=== PATIENT | male | born 1950 | race Caucasian/White ===

== ENCOUNTER 2018-02-13 12:58 | Inpatient (IN) | payer OTHER ==
--- NOTE | 2018-02-13 13:37 | PDOC ---
History of Present Illness <Farhana Lafleur - Last Filed: 02/13/18 17:31> - History of Present Illness Initial Comments: 02/13/18 15:11 The patient is a 67 year old male, with a significant PMH of schizophrenia, afib on digoxin and HTN who presents to the emergency department with left lower extremity edema and erythema for unknown period of time. Patient also has a plantar ulcer on the left foot that drains from time to time. The patient was sent in by Dr. Deleon, a motor overhauler, who was concerned about possible osteomyelitis and cellulitis. Patient is a poor historian and states he had this wound for the past 65 years. Pt also states it drained pus 1-2 days ago. Case was discussed with the staff at [facility] who are unsure for how long he has had the wound for. The podriatrist is also unaware for how long he has had the wound for. The patient denies chest pain, shortness of breath, headache and dizziness. Denies fever, chills, nausea, vomit, diarrhea and constipation. Denies dysuria, frequency, urgency and hematuria. Allergies: NKA Past surgical history: None reported. Social history: No reported alcohol, drug, or cigarette use. <Latoya Quispe - Last Filed: 02/13/18 17:57> - General Chief Complaint: Wound Stated Complaint: FOOT Wound Time Seen by Provider: 02/13/18 13:10 Past History <Farhana Lafleur - Last Filed: 02/13/18 17:31> - Past Medical History Cardiac Disorders: Yes (a fib) COPD: No CHF: Yes GI Disorders: Yes (gerd) Psychiatric Problems: Yes (schizophrenia) - Suicide/Smoking/Psychosocial Hx Smoking History: Unknown if ever smoked Have you smoked in the past 12 months: No Information on smoking cessation initiated: No Hx Alcohol Use: No Drug/Substance Use Hx: No Substance Use Type: None <Latoya Quispe - Last Filed: 02/13/18 17:57> - Past Medical History Allergies/Adverse Reactions: Allergies Allergy/AdvReac Type Severity Reaction Status Date / Time No Known Allergies Allergy Verified 02/13/18 13:04 Home Medications: Ambulatory Orders Aripiprazole [Abilify -] 15 mg PO HS 02/13/18 Aripiprazole [Abilify] 5 mg PO DAILY 02/13/18 Digoxin [Lanoxin -] 0.125 mg PO DAILY 02/13/18 Docusate Sodium [Colace -] 100 mg PO DAILY 02/13/18 Ergocalciferol (Vitamin D2) [Drisdol] 50,000 unit PO WEEKLY 02/13/18 Furosemide [Lasix -] 20 mg PO DAILY 02/13/18 Metoprolol Tartrate [Lopressor -] 12.5 mg PO BID 02/13/18 Potassium Chloride [K-Dur -] 10 meq PO DAILY 02/13/18 Review of Systems - Review of Systems Comments:: 02/13/18 15:12 "GENERAL/CONSTITUTIONAL: No fever or chills. No weakness. HEAD, EYES, EARS, NOSE AND THROAT: No change in vision. No ear pain or discharge. No sore throat. GASTROINTESTINAL: No nausea, vomiting, diarrhea or constipation. GENITOURINARY: No dysuria, frequency, or change in urination. CARDIOVASCULAR: No chest pain or shortness of breath. RESPIRATORY: No cough, wheezing, or hemoptysis. MUSCULOSKELETAL: (+) Left lower extremity erythema and edema. No neck or back pain. SKIN: No rash NEUROLOGIC: No headache, vertigo, loss of consciousness, or change in strength/ sensation. ENDOCRINE: No increased thirst. No abnormal weight change. HEMATOLOGIC/LYMPHATIC: No anemia, easy bleeding, or history of blood clots. ALLERGIC/IMMUNOLOGIC: No hives or skin allergy." <Latoya Quispe - Last Filed: 02/13/18 17:57> *Physical Exam - Vital Signs Last Vital Signs Temp Pulse Resp BP Pulse Ox 99.0 F 76 16 112/70 98 02/13/18 17:24 02/13/18 17:24 02/13/18 17:24 02/13/18 17:24 02/13/18 17:24 <Farhana Lafleur - Last Filed: 02/13/18 17:31> - Vital Signs Last Vital Signs Temp Pulse Resp BP Pulse Ox 99.6 F 101 H 16 106/60 100 02/13/18 13:04 02/13/18 13:04 02/13/18 13:04 02/13/18 13:04 02/13/18 13:04 - Physical Exam Comments: 02/13/18 15:13 "GENERAL: Awake, alert, and fully oriented, in no acute distress HEAD: No signs of trauma EYES: PERRLA, EOMI, sclera anicteric, conjunctiva clear ENT: Auricles normal inspection, hearing grossly normal, nares patent, oropharynx clear without exudates. Moist mucosa NECK: Normal ROM, supple, no lymphadenopathy, JVD, or masses LUNGS: Breath sounds equal, clear to auscultation bilaterally. No wheezes, and no crackles HEART: Regular rate and rhythm, normal S1 and S2, no murmurs, rubs or gallops ABDOMEN: Soft, nontender, normoactive bowel sounds. No guarding, no rebound. No masses EXTREMITIES: (+) Left lower extremity 1+ pitting edema from the dorsum of the foot to the proximal calf. (+) Compared to the right leg, the left leg is warm and erythematous. (+) Deep calloused ulcer at the 2nd and 3rd metatarsal head on the plantar surface with no drainage. 2+ DP pulse. Normal range of motion. No clubbing or cyanosis. No cords or tenderness BACK: No midline spinal tenderness in cervical/thoracic/lumbar region NEUROLOGICAL: Normal speech, cranial nerves intact, negative pronator drift, 5/ 5 strength in all 4 extremities, normal sensation to light touch in all 4 extremities, normal cerebellar exam, normal gait, normal reflexes and tone SKIN: Warm, Dry, normal turgor, no rashes or lesions noted." <Latoya Quispe - Last Filed: 02/13/18 17:57> ED Treatment Course - LABORATORY CBC & Chemistry Diagram: 02/13/18 15:00 02/13/18 15:00 - ADDITIONAL ORDERS Additional order review: Laboratory Results 02/13/18 02/13/18 15:00 15:00 Sodium 137 Potassium 4.7 Chloride 104 Carbon Dioxide 31 Anion Gap 2 L BUN 14 Creatinine 0.6 Creat Clearance w eGFR > 60 Random Glucose 107 H Calcium 8.5 Total Bilirubin 0.2 AST 11 L ALT 15 Alkaline Phosphatase 97 C-Reactive Protein 7.6 H Total Protein 6.7 Albumin 2.6 L 02/13/18 15:00 RBC 3.95 L MCV 73.3 L MCHC 31.6 L RDW 19.4 H MPV 7.5 Neutrophils % 81.7 Lymphocytes % 8.7 Monocytes % 7.6 Eosinophils % 0.9 Basophils % 1.1 <Farhana Lafleur - Last Filed: 02/13/18 17:31> - LABORATORY CBC & Chemistry Diagram: 02/13/18 15:00 02/13/18 15:00 <Latoya Quispe - Last Filed: 02/13/18 17:57> Medical Decision Making - Medical Decision Making 02/13/18 17:30 Imaging: Left ankle/foot XR Reported by: Dr. Alfonso Impression: Irregularity second, third, and fourth metatarsal heads suspicious for acute osteomyelitis. <Farhana Lafleur - Last Filed: 02/13/18 17:31> - Medical Decision Making 02/13/18 15:53 67-year-old male with a history of schizophrenia, A. fib, hypertension presents to the emergency Department after referral from motor overhauler for possible osteomyelitis vs cellulitis. Pt is poor historian significantly limiting the history. Vitals with mildly elevated temp, and mild tachycardia to 101. Plan -labs -XR -US -reassess 02/13/18 17:56 XR + for osteo Pt covered with Vanc/Zosyn Case discussed with Dr. Smith, pt admitted Case discussed in detail with admitting physician including history, physical exam and ancillary studies. Admitting physician has assumed care for the patient, will follow all pending diagnostics and will complete the evaluation and treatment. <Latoya Quispe - Last Filed: 02/13/18 17:57> *DC/Admit/Observation/Transfer <Farhana Lafleur - Last Filed: 02/13/18 17:31> - Discharge Dispostion Decision to Admit order: Yes - Attestations Physician Attestion: 02/13/18 17:57 I, Dr. Latoya Quispe MD, attest that this document has been prepared under my direction and personally reviewed by me in its entirety. I further attest, that it accurately reflects all work, treatment, procedures and medical decision -making performed by me. <Latoya Quispe - Last Filed: 02/13/18 17:57> Diagnosis at time of Disposition: Osteomyelitis, Leg edema, Foot pain - Discharge Dispostion Condition at time of disposition: Stable - Referrals Referrals: John Dunn [Primary Care Provider] -
[2018-02-13 15:25] LABS: BASO % 1.1 % (0-2.0); EOS % 0.9 % (0-4.5); HEMATOCRIT 28.9 % (35.4-49); HEMOGLOBIN 9.2 GM/dL (11.7-16.9); LYMPH % 8.7 % (8-40); MCH 23.2 pg (25.7-33.7); MCHC 31.6 g/dl (32.0-35.9); MEAN CELL VOLUME 73.3 fl (80-96); MEAN PLT VOLUME 7.5 fl (7.5-11.1); MONO % 7.6 % (3.8-10.2); NEUT % 81.7 % (42.8-82.8); PLATELET COUNT 261 K/MM3 (134-434); RBC 3.95 M/mm3 (4.00-5.60); RDW 19.4 % (11.9-15.9); WHITE BLOOD COUNT 6.8 K/mm3 (4.0-10.0)
[2018-02-13 15:53] LABS: ALBUMIN 2.6 g/dl (3.4-5.0); ALK PHOS 97 U/L (45-117); ANION GAP 2 MMOL/L (8-16); BILIRUBIN,TOTAL 0.2 mg/dL (0.2-1); BLOOD UREA NITROGEN 14 mg/dL (7-18); CALCIUM 8.5 mg/dL (8.5-10.1); CHLORIDE 104 mmol/L (98-107); CO2 31 mmol/L (21-32); CREATININE 0.6 mg/dL (0.55-1.3); GLUCOSE,RANDOM 107 mg/dL (74-106); POTASSIUM 4.7 mmol/L (3.5-5.1); SGOT/AST 11 U/L (15-37); SGPT/ALT 15 U/L (13-61); SODIUM 137 mmol/L (136-145); TOT PROT 6.7 g/dl (6.4-8.2)
[2018-02-13] MEDS ORDERED: VANCOMYCIN 1,000 MG in DEXTROSE 5%-WATER - 250 ML IVPB ONE (17:29)
[2018-02-13] MEDS ORDERED: PIPERACILLIN/TAZOB 4.5 GM 4.5 GM in DEXTROSE 5%-WATER - 100 ML IVPB ONE (17:29)
[2018-02-13] MEDS ORDERED: VANCOMYCIN 1 GRAM (PRE-DOCKED) 1,000 MG/250 ML BAG IVPB ONE (17:30)
[2018-02-13] MEDS ORDERED: PIPERACILLIN/TAZOB 4.5 GM 4.5 GM/100 ML BAG IVPB ONE (17:30)
--- NOTE | 2018-02-13 23:40 | PN ---
Teaching Attending Note Name of Resident: Pritesh Lloyd ATTENDING PHYSICIAN STATEMENT I saw and evaluated the patient. Chart, data, imaging reviewed. I reviewed the resident's note and discussed the case with the resident. I agree with the resident's findings and plan as documented. SUBJECTIVE: 67 year old male, with a significant PMH of schizophrenia, former smoker (20 years), afib on digoxin and HTN sent in to ER from podiatry clinic for left foot plantar ulcer of uncertain duration. Patient himself did not have any complaints. He denied any fevers, chills, or foot pain. He denied any trauma to his foot. OBJECTIVE: Last Vital Signs Temp Pulse Resp BP Pulse Ox 99.4 F 95 H 18 104/70 97 02/13/18 22:37 02/13/18 22:37 02/13/18 22:37 02/13/18 22:37 02/13/18 22:37 General -nad, appears comfortable, nontoxic heent- at, nc neck -supple cv- s1+s2+rrr abdomen- soft, benign ext- left foot, leg edematous, warm to touch, slight erythema, 1 cm plantar ulcer, no active drainage Abnormal Lab Results 02/13/18 02/13/18 02/13/18 15:00 15:00 15:00 RBC 3.95 L Hgb 9.2 L Hct 28.9 L MCV 73.3 L MCH 23.2 L MCHC 31.6 L RDW 19.4 H ESR 56 H Anion Gap Random Glucose AST C-Reactive Protein 7.6 H Albumin 02/13/18 15:00 RBC Hgb Hct MCV MCH MCHC RDW ESR Anion Gap 2 L Random Glucose 107 H AST 11 L C-Reactive Protein Albumin 2.6 L Imaging reviewed- left foot xray- irregular lesions seen in metatarsal heads in 2,3,5th digits U/S duplex- neg for dvt in left leg ASSESSMENT AND PLAN: 67yo man with acute osteomyelitis of left 2,3,4 toes as evidenced by +xray findings, high ESR. +Cellulitis of left leg. Source of infection may be plantar ulcer. Unclear if patent has PVD. Left leg DVT was ruled out. -admit to med/surg -podiatry consult - bone biopsy + deep tissue culture -vancomycin and zosyn IV -ID consult -leg elevation -THERESE -heparin sc for dvt ppx
--- NOTE | 2018-02-13 23:49 | HP ---
CHIEF COMPLAINT: Referred by Administrative Project Coordinator for Foot ulcer PCP: none HISTORY OF PRESENT ILLNESS: Pt is poor historian. Pt is a 67 y/o gentleman with a past medical history of schizophrenia, htn, afib (on digoxin) and anemia. Pt was referred to our ED by his home builder (Dr Deleon) due to left lower extremity swelling and possible osteomyelitis of his left foot. Pt states he has had this ulcer on the plantar aspect of his left foot for 8 days. States that it sometimes drains fluid. Pt endorses he often wears tight fitting shoes which he has neglected to change for a long period of time and believes that this is the reason for his plantar ulcer. Denies fever, chills, headache, nausea, vomiting, chest pain, or shortness of breath. ER course was notable for: (1) ESR/CRP 56/7.6 (2) xray left ankle and foot 02/13/18--> Irregularity second, third, and fourth metatarsal heads suspicious for acute osteomyelitis - Received Vanc/Zosyn in ED (3) Recent Travel: denies PAST MEDICAL HISTORY: Per HPI PAST SURGICAL HISTORY: Poor historian. Abdominal surgical scar (pt states he "swallowed coins"), Surgical scar left knee. Social History: Smoking: Former smoker. Smoked 9 cigarettes for 20 years. Alcohol: denies Drugs: denies Family History: Allergies States he is allergic to thorazine? HOME MEDICATIONS: Home Medications Medication Instructions Recorded Aripiprazole [Abilify -] 15 mg PO HS 02/13/18 Aripiprazole [Abilify] 5 mg PO DAILY 02/13/18 Digoxin [Lanoxin -] 0.125 mg PO DAILY 02/13/18 Docusate Sodium [Colace -] 100 mg PO DAILY 02/13/18 Ergocalciferol (Vitamin D2) 50,000 unit PO WEEKLY 02/13/18 [Drisdol] Furosemide [Lasix -] 20 mg PO DAILY 02/13/18 Metoprolol Tartrate [Lopressor -] 12.5 mg PO BID 02/13/18 Potassium Chloride [K-Dur -] 10 meq PO DAILY 02/13/18 REVIEW OF SYSTEMS CONSTITUTIONAL: Absent: fever, chills, diaphoresis, generalized weakness, malaise, loss of appetite, weight change HEENT: Absent: rhinorrhea, nasal congestion, throat pain, throat swelling, difficulty swallowing, mouth swelling, ear pain, eye pain, visual changes CARDIOVASCULAR: Absent: chest pain, syncope, palpitations, irregular heart rate, lightheadedness , peripheral edema RESPIRATORY: Absent: cough, shortness of breath, dyspnea with exertion, orthopnea, wheezing, stridor, hemoptysis GASTROINTESTINAL: Absent: abdominal pain, abdominal distension, nausea, vomiting, diarrhea, constipation, melena, hematochezia GENITOURINARY: Absent: dysuria, frequency, urgency, hesitancy, hematuria, flank pain, genital pain MUSCULOSKELETAL: ABSENT: myalgia, arthralgia, joint swelling SKIN: PRESENT: CELLULITIS lle HEMATOLOGIC/IMMUNOLOGIC: Absent: easy bleeding, easy bruising, lymphadenopathy, frequent infections ENDOCRINE: Absent: unexplained weight gain, unexplained weight loss, heat intolerance, cold intolerance NEUROLOGIC: Absent: headache, focal weakness or paresthesias, dizziness, unsteady gait, seizure, mental status changes, bladder or bowel incontinence PSYCHIATRIC: PRESENT: schizophrenia PHYSICAL EXAMINATION Vital Signs - 24 hr 02/13/18 02/13/18 02/13/18 13:04 17:24 22:37 Temperature 99.6 F 99.0 F 99.4 F Pulse Rate 101 H Pulse Rate [ 76 95 H Left Apical] Respiratory 16 16 18 Rate Blood Pressure 106/60 Blood Pressure 112/70 104/70 [Left Arm] O2 Sat by Pulse 100 98 97 Oximetry (%) GENERAL: Awake, Alert. NAD HEAD: NC/AT EYES: EOMI, PERRLA. EARS, NOSE, THROAT: MMM NECK: Supple LUNGS: CTA B/L HEART: RRR, No MRG, S1 S2 ABDOMEN: ND, NT, No HSM. Surgical scar mid-abdomen. MUSCULOSKELETAL: FROM UPPER EXTREMITIES: No CCE LOWER EXTREMITIES: Left Lower extremity swollen, erythematous, plantar ulcer, 2 + pitting edema NEUROLOGICAL: CN 2-12 intact PSYCHIATRIC: Schizophrenia SKIN: Cellulitis LLE. Laboratory Results - last 24 hr 02/13/18 02/13/18 02/13/18 15:00 15:00 15:00 WBC 6.8 RBC 3.95 L Hgb 9.2 L Hct 28.9 L MCV 73.3 L MCH 23.2 L MCHC 31.6 L RDW 19.4 H Plt Count 261 MPV 7.5 Absolute Neuts (auto) 5.6 Neutrophils % 81.7 Lymphocytes % 8.7 Monocytes % 7.6 Eosinophils % 0.9 Basophils % 1.1 Nucleated RBC % 0 ESR 56 H Sodium Potassium Chloride Carbon Dioxide Anion Gap BUN Creatinine Creat Clearance w eGFR Random Glucose Calcium Total Bilirubin AST ALT Alkaline Phosphatase C-Reactive Protein 7.6 H Total Protein Albumin 02/13/18 15:00 WBC RBC Hgb Hct MCV MCH MCHC RDW Plt Count MPV Absolute Neuts (auto) Neutrophils % Lymphocytes % Monocytes % Eosinophils % Basophils % Nucleated RBC % ESR Sodium 137 Potassium 4.7 Chloride 104 Carbon Dioxide 31 Anion Gap 2 L BUN 14 Creatinine 0.6 Creat Clearance w eGFR > 60 Random Glucose 107 H Calcium 8.5 Total Bilirubin 0.2 AST 11 L ALT 15 Alkaline Phosphatase 97 C-Reactive Protein Total Protein 6.7 Albumin 2.6 L XRAY L FOOT/ANKLE: AP, oblique and lateral projections of the left foot and ankle is limited. There is deformity of the second, third and fourth metatarsal heads with the suggestion of subcutaneous emphysema. This appearance could represent acute osteomyelitis and additional imaging studies, such as a triphasic nuclear medicine bone scan and/or an MRI of the foot is now recommended. ASSESSMENT/PLAN: Pt is a 67 y/o gentleman with a past medical history of schizophrenia, htn, afib (on digoxin) and anemia. Pt was referred to our ED by his home builder due to left lower extremity swelling and possible osteomyelitis of his left foot. #Osteomyelitis 2/2 Plantar Ulcer L Foot -xray left ankle and foot 02/13/18--> Irregularity second, third, and fourth metatarsal heads suspicious for acute osteomyelitis - Received Vanc/Zosyn in ED - Zosyn 3.375 Q6H - ID Consult - Podiatry consult -Lactic Acid Level -Doppler left Extremity--> No acute pathology, no DVT #Cellulitis Left Lower Extremity - Received Vanc/Zosyn in ED -Zosyn 3.375 Q6H -ID Consult #Schizophrenia -Resume Home medications #Afib -Resume home medications #Anemia -Retic count, Fe,Transferrin, Stool Occult -f/u cbc in am FEN NS@75cc/hr Monitor Electrolytes Sodium controlled diet DVT ppx: Hep SQ TID Dispo: Med-Surg Visit type - Emergency Visit Emergency Visit: Yes ED Registration Date: 02/13/18 Care time: The patient presented to the Emergency Department on the above date and was hospitalized for further evaluation of their emergent condition. - New Patient This patient is new to me today: Yes Date on this admission: 02/14/18 - Critical Care Critical Care patient: No
[2018-02-14 00:36] VITALS: BMI 19.6
[2018-02-14] MEDS ORDERED: PIPERACILLIN/TAZOBACTAM 3.375 GM VIAL IVPB ONE ×3 (01:08→08:44)
[2018-02-14] MEDS ORDERED: DEXTROSE 5%-WATER - 50 ML IVPB ONE ×3 (01:08→08:44)
[2018-02-14] MEDS: SODIUM CHLORIDE 1,000 ML IV SCH ×2 (01:18→18:23)
[2018-02-14] MEDS: PIPERACILLIN/TAZOB 3.375 GM 3.375 GM in DEXTROSE 5%-WATER - 50 ML IVPB SCH ×4 (01:19→22:12)
[2018-02-14] MEDS: HEPARIN NA (PORCINE) 5,000 UNITS/ML 1ML VIAL SQ SCH ×3 (05:38→21:36)
[2018-02-14 07:28] LABS: BASO % 0.9 % (0-2.0); EOS % 1.7 % (0-4.5); HEMATOCRIT 26.7 % (35.4-49); HEMOGLOBIN 8.5 GM/dL (11.7-16.9); LYMPH % 9.6 % (8-40); MCH 23.4 pg (25.7-33.7); MCHC 31.8 g/dl (32.0-35.9); MEAN CELL VOLUME 73.5 fl (80-96); MEAN PLT VOLUME 7.5 fl (7.5-11.1); MONO % 9.5 % (3.8-10.2); NEUT % 78.3 % (42.8-82.8); PLATELET COUNT 216 K/MM3 (134-434); RBC 3.64 M/mm3 (4.00-5.60); RDW 19.8 % (11.9-15.9); WHITE BLOOD COUNT 4.6 K/mm3 (4.0-10.0)
[2018-02-14 07:48] LABS: INR 1.17 (0.83-1.09); PROTHROMBIN TIME (PATIENT) 13.8 SEC (9.7-13.0)
[2018-02-14 08:22] LABS: ACTIVATED PTT 31.2 SECONDS (25.2-36.5)
[2018-02-14 08:32] LABS: ANION GAP 3 MMOL/L (8-16); BLOOD UREA NITROGEN 8 mg/dL (7-18); CHLORIDE 106 mmol/L (98-107); CO2 29 mmol/L (21-32); CREATININE 0.7 mg/dL (0.55-1.3); GLUCOSE,RANDOM 98 mg/dL (74-106); MAGNESIUM 2.1 mg/dL (1.8-2.4); PHOSPHOROUS 3.4 mg/dL (2.5-4.9); POTASSIUM 4.3 mmol/L (3.5-5.1); SODIUM 138 mmol/L (136-145)
[2018-02-14] MEDS: ARIPiprazole 5 MG TABLET (FP) PO SCH (09:32)
[2018-02-14] MEDS: METOPROLOL TARTRATE 25 MG TABLET (FP) PO SCH ×2 (09:33→21:36)
[2018-02-14] MEDS: FUROSEMIDE 20 MG TABLET (FP) PO SCH (09:33)
[2018-02-14] MEDS: DOCUSATE SODIUM 100 MG CAPSULE (FP) PO SCH (09:33)
[2018-02-14] MEDS: DIGOXIN 0.125 MG TABLET (FP) PO SCH (09:33)
--- NOTE | 2018-02-14 10:39 | CONSULT ---
Consult Consult Specialty:: Podiatry Reason for Consultation:: Chronic open wound sub met 2&3 left - History of Present Illness Chief Complaint: wound left foot - History Source Limitations to Obtaining History: Poor Historian - Alcohol/Substance Use Hx Alcohol Use: No - Smoking History Smoking history: Unknown if ever smoked Have you smoked in the past 12 months: No Home Medications - Allergies Allergies/Adverse Reactions: Allergies Allergy/AdvReac Type Severity Reaction Status Date / Time No Known Allergies Allergy Verified 02/13/18 13:04 - Home Medications Home Medications: Ambulatory Orders Aripiprazole [Abilify -] 15 mg PO HS 02/13/18 Aripiprazole [Abilify] 5 mg PO DAILY 02/13/18 Digoxin [Lanoxin -] 0.125 mg PO DAILY 02/13/18 Docusate Sodium [Colace -] 100 mg PO DAILY 02/13/18 Ergocalciferol (Vitamin D2) [Drisdol] 50,000 unit PO WEEKLY 02/13/18 Furosemide [Lasix -] 20 mg PO DAILY 02/13/18 Metoprolol Tartrate [Lopressor -] 12.5 mg PO BID 02/13/18 Potassium Chloride [K-Dur -] 10 meq PO DAILY 02/13/18 Physical Exam Vital Signs: Vital Signs Temperature 98.6 F 02/14/18 09:21 Pulse Rate 84 02/14/18 09:33 Respiratory Rate 18 02/14/18 09:21 Blood Pressure 102/66 02/14/18 09:21 O2 Sat by Pulse Oximetry (%) 100 02/13/18 23:59 Wound/Incision: Yes: Other (left foot open wound, no drainage at this time, sub met 2&3 left) Labs: CBC, BMP 02/14/18 06:30 02/14/18 06:30 Imaging - Results X-ray: Report Reviewed Problem List - Problems (1) Osteomyelitis Assessment/Plan: r/o om plantar flexed metatrsals subluxed 3rdmpj and spiked plantar 2nd previous sx? MRI ordered. Labs reviewed. Xray reviewed. If no om and vascular intact will recommend surgery to remove pressure from plantar aspect of foot. will follow. Vascular consult. Code(s): M86.9 - OSTEOMYELITIS, UNSPECIFIED
--- NOTE | 2018-02-14 12:37 | PN ---
Progress Note (short form) - Note Progress Note: ID Consult dictated Chronic L foot plantar ulcers, probable chronic osteomyelitis Cellulits L LE Schizophrenia Obtain BC MRI Advise deep tissue/ bone bx for culture Empiric ceftriaxone/ flagyl MRSA nares screen HIV test (pt consents)
[2018-02-14] MEDS ORDERED: DEXTROSE 5%-WATER 100 ML IVPB ONE (12:59)
--- NOTE | 2018-02-14 13:09 | CONS ---
DATE OF CONSULTATION: DATE OF DICTATION: 02/14/2018 HISTORY: The patient is a 67-year-old schizophrenia, nondiabetic male who is evaluated for nonhealing plantar ulcers of the left foot. The patient does not give a reliable history. He is a resident of a nursing facility. He was sent by the sessions clerk to the emergency room for admission after he was noted to have worsening left plantar ulcerations. The patient states that the wounds have been present for approximately 10 years, but again, he is not reliable. He was noted to have 2 plantar wounds over the area of the metatarsal heads. An x-ray showed evidence of chronic osteomyelitis of the metatarsal heads of the 2nd, 3rd, and 4th toes as well as subcutaneous emphysema. According to the notes, there was increased left lower extremity edema and warmth as well as drainage from the foot ulcers. A Doppler exam was performed, and it was negative for DVT. The patient denies any trauma injury. Again, states the ulcerations have been present for some time. He reports being treated with antibiotics in the past, however, cannot give additional details. PAST MEDICAL HISTORY: Positive for schizophrenia, atrial fibrillation, hypertension, chronic anemia. ALLERGIES: No known allergies. MEDICATIONS: Abilify, Lanoxin, Colace, Lasix, Lopressor. SOCIAL HISTORY: Lives in a facility. States he tries not to smoke but admits to smoking. Denies risk factors for HIV. States he tested negative in the past. LABORATORY DATA: White count 4.6, hematocrit 26.7, platelet count 216, ESR 56, C-reactive protein 7.6, creatinine 0.7. PHYSICAL EXAMINATION: General: He is awake and alert. He is not acutely toxic appearing. Vital Signs: Temperature 98.6, blood pressure 102/66, pulse 84 and regular, respirations 18 per minute. HEENT: Sclerae anicteric. Heart: Sounds irregular. S1, S2. Lungs: Clear. Abdomen: Soft, nontender. Extremities: Examination of the lower extremity, there is diffuse swelling of the left lower extremity from the foot to below the knee. The leg is warmth, however not erythematous. There is a large callous over the area of the 3rd metatarsal head. Two plantar ulcers are present over the metatarsal heads left foot. There is no surrounding erythema. No drainage noted. IMPRESSION: 1. Infected left foot plantar ulcers and probable underlying chronic osteomyelitis. 2. Cellulitis of the left lower extremity. 3. Schizophrenia. PLAN: Await wound culture. Obtain blood cultures. Agree with MRI. Advised deep tissue/bone biopsy for culture. Empiric antibiotic coverage with ceftriaxone and Flagyl. Nares screen for MRSA. HIV test (patient gives verbal consent). KESHIA KHOURY M.D. ISABELL/[id number]
--- NOTE | 2018-02-14 13:34 | PN ---
Physical Exam: SUBJECTIVE: Patient seen and examined; not a great historian. VSS, afebrile. Pending MRI. Podiatry and ID saw; appreciate their input. Podiatry recommended VS consult so will be done. Plan is to wait for the MRI and see if will need anything done for that; if negative for OM then podiatry plans on procedure. OBJECTIVE: Vital Signs Period Temp Pulse Resp BP Sys/Stock Pulse Ox Last 24 Hr 98.4 F-99.4 F 76-95 16-18 102-114/66-71 97-100 GENERAL: The patient is awake, alert, and fully oriented, in no acute distress. HEAD: Normal with no signs of trauma. EYES: PERRL, extraocular movements intact, sclera anicteric, conjunctiva clear. No ptosis. ENT: Ears normal, nares patent, oropharynx clear without exudates, moist mucous membranes. NECK: Trachea midline, full range of motion, supple. LUNGS: Breath sounds equal, clear to auscultation bilaterally, no wheezes, no crackles, no accessory muscle use. HEART: Regular rate and rhythm, S1, S2 without murmur, rub or gallop. ABDOMEN: Soft, nontender, nondistended, normoactive bowel sounds, no guarding, no rebound, no hepatosplenomegaly, no masses. EXTREMITIES: 2+ pulses, warm, well-perfused, no edema. NEUROLOGICAL: Cranial nerves II through XII grossly intact. Normal speech, gait not observed. PSYCH: Normal mood, normal affect. SKIN: Warm, dry, normal turgor, no rashes or lesions noted Laboratory Results - last 24 hr 02/13/18 02/13/18 02/13/18 15:00 15:00 15:00 WBC 6.8 RBC 3.95 L Hgb 9.2 L Hct 28.9 L MCV 73.3 L MCH 23.2 L MCHC 31.6 L RDW 19.4 H Plt Count 261 MPV 7.5 Absolute Neuts (auto) 5.6 Neutrophils % 81.7 Lymphocytes % 8.7 Monocytes % 7.6 Eosinophils % 0.9 Basophils % 1.1 Nucleated RBC % 0 ESR 56 H Retic Count PT with INR INR PTT (Actin FS) Sodium Potassium Chloride Carbon Dioxide Anion Gap BUN Creatinine Creat Clearance w eGFR Random Glucose Lactic Acid Calcium Phosphorus Magnesium Total Bilirubin AST ALT Alkaline Phosphatase C-Reactive Protein 7.6 H Total Protein Albumin Vitamin B12 Digoxin 02/13/18 02/14/18 02/14/18 15:00 01:30 06:30 WBC RBC Hgb Hct MCV MCH MCHC RDW Plt Count MPV Absolute Neuts (auto) Neutrophils % Lymphocytes % Monocytes % Eosinophils % Basophils % Nucleated RBC % ESR Retic Count PT with INR INR PTT (Actin FS) Sodium 137 Potassium 4.7 Chloride 104 Carbon Dioxide 31 Anion Gap 2 L BUN 14 Creatinine 0.6 Creat Clearance w eGFR > 60 Random Glucose 107 H Lactic Acid 0.9 Calcium 8.5 Phosphorus Magnesium Total Bilirubin 0.2 AST 11 L ALT 15 Alkaline Phosphatase 97 C-Reactive Protein Total Protein 6.7 Albumin 2.6 L Vitamin B12 Digoxin 0.57 L 02/14/18 02/14/18 02/14/18 06:30 06:30 06:30 WBC 4.6 RBC 3.64 L Hgb 8.5 L Hct 26.7 L MCV 73.5 L MCH 23.4 L MCHC 31.8 L RDW 19.8 H Plt Count 216 MPV 7.5 Absolute Neuts (auto) 3.6 Neutrophils % 78.3 Lymphocytes % 9.6 Monocytes % 9.5 Eosinophils % 1.7 D Basophils % 0.9 Nucleated RBC % 0 ESR Retic Count 0.94 PT with INR INR PTT (Actin FS) Sodium 138 Potassium 4.3 Chloride 106 Carbon Dioxide 29 Anion Gap 3 L BUN 8 Creatinine 0.7 Creat Clearance w eGFR > 60 Random Glucose 98 Lactic Acid Calcium 8.0 L Phosphorus 3.4 Magnesium 2.1 Total Bilirubin AST ALT Alkaline Phosphatase C-Reactive Protein Total Protein Albumin Vitamin B12 352 Digoxin 02/14/18 06:30 WBC RBC Hgb Hct MCV MCH MCHC RDW Plt Count MPV Absolute Neuts (auto) Neutrophils % Lymphocytes % Monocytes % Eosinophils % Basophils % Nucleated RBC % ESR Retic Count PT with INR 13.80 H INR 1.17 H PTT (Actin FS) 31.2 Sodium Potassium Chloride Carbon Dioxide Anion Gap BUN Creatinine Creat Clearance w eGFR Random Glucose Lactic Acid Calcium Phosphorus Magnesium Total Bilirubin AST ALT Alkaline Phosphatase C-Reactive Protein Total Protein Albumin Vitamin B12 Digoxin Active Medications Generic Name Dose Route Start Last Admin Trade Name Freq PRN Reason Stop Dose Admin Aripiprazole 5 mg 02/14/18 10:00 02/14/18 09:32 Abilify PO 5 mg DAILY JONATHON Administration Aripiprazole 15 mg 02/14/18 22:00 Abilify PO HS JONATHON Digoxin 0.125 mg 02/14/18 10:00 02/14/18 09:33 Lanoxin - PO 0.125 mg DAILY JONATHON Administration Docusate Sodium 100 mg 02/14/18 10:00 02/14/18 09:33 Colace - PO 100 mg DAILY JONATHON Administration Ergocalciferol 50,000 unit 02/19/18 10:00 Drisdol - PO Tu@1000 JONATHON Furosemide 20 mg 02/14/18 10:00 02/14/18 09:33 Lasix - PO 20 mg DAILY JONATHON Administration Heparin Sodium (Porcine) 5,000 unit 02/14/18 06:00 02/14/18 13:08 Heparin - SQ 5,000 unit TID JONATHON Administration Sodium Chloride 1,000 mls @ 75 mls/hr 02/14/18 00:15 02/14/18 01:18 Normal Saline - IV 75 mls/hr ASDIR JONATHON Administration Ceftriaxone Sodium 2 gm/ 100 mls @ 200 mls/hr 02/14/18 13:00 Dextrose IVPB DAILY JONATHON Protocol Metronidazole 500 mg in 100 mls @ 100 mls/hr 02/14/18 13:00 02/14/18 13:06 Flagyl 500mg Premixed Ivpb - IVPB 100 mls/hr Q8H-IV JONATHON Administration Metoprolol Tartrate 12.5 mg 02/14/18 10:00 02/14/18 09:33 Lopressor - PO 12.5 mg BID JONATHON Administration ASSESSMENT/PLAN: 1) Foot wound r/o OM 2) Atrial Fibrillation 3) HTN 4) Schizophrenia Patient has changes suspicious for OM as well as positive ESR at 54. Negative DVT scan. Reviewed all imaging. MRI pending. If MRI positive for OM will need prolonged abx per ID as well as +/- procedure. should it be negative then podiatry still wishes to do procedure. Continue all other home medications. No new issues from overnight. Continue abx. Check HIV per ID FEN PO fluids PRN check and replace Continue current diet. FC Visit type - Emergency Visit Emergency Visit: No - New Patient This patient is new to me today: Yes Date on this admission: 02/14/18 - Critical Care Critical Care patient: No
[2018-02-14] MEDS: CEFTRIAXONE 2 GM in DEXTROSE 5%-WATER 100 ML IVPB SCH (14:10)
--- NOTE | 2018-02-14 18:26 | CONSULT ---
Consult - History of Present Illness History of Present Illness: 67 year old man with DM and peripheral neuropathy. He has a left plantar ulcer. Vascular evaluation requested by Dr. Sutton. He denies a history of PAD. He smokes < 1/2 ppd. - Alcohol/Substance Use Hx Alcohol Use: No - Smoking History Smoking history: Unknown if ever smoked Have you smoked in the past 12 months: No Home Medications - Allergies Allergies/Adverse Reactions: Allergies Allergy/AdvReac Type Severity Reaction Status Date / Time No Known Allergies Allergy Verified 02/13/18 13:04 - Home Medications Home Medications: Ambulatory Orders Aripiprazole [Abilify -] 15 mg PO HS 02/13/18 Aripiprazole [Abilify] 5 mg PO DAILY 02/13/18 Digoxin [Lanoxin -] 0.125 mg PO DAILY 02/13/18 Docusate Sodium [Colace -] 100 mg PO DAILY 02/13/18 Ergocalciferol (Vitamin D2) [Drisdol] 50,000 unit PO WEEKLY 02/13/18 Furosemide [Lasix -] 20 mg PO DAILY 02/13/18 Metoprolol Tartrate [Lopressor -] 12.5 mg PO BID 02/13/18 Potassium Chloride [K-Dur -] 10 meq PO DAILY 02/13/18 Physical Exam Vital Signs: Vital Signs Temperature 98.7 F 02/14/18 14:43 Pulse Rate 79 02/14/18 14:43 Respiratory Rate 18 02/14/18 14:43 Blood Pressure 102/69 02/14/18 14:43 O2 Sat by Pulse Oximetry (%) 98 02/14/18 09:00 Extremities: Yes: Deformity (Claw toes in feet. Left ankle decreased ROM) Edema: No Peripheral Pulses WNL: No (Palapable femoral, DP bilaterally, right PT palpable , left PT absent) Labs: CBC, BMP 02/14/18 06:30 02/14/18 06:30 Problem List - Problems (1) Diabetic peripheral vascular disease Assessment/Plan: There is no evidence for major vascular occlusive disease. Absence of palpable left PT pulse suggests tibial disease. Additional testing with Duplex and Doppler requested to complete evaluation. 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
[2018-02-14] MEDS ORDERED: PT OWN MED DRAWER 7, Y5N ONE (20:49)
[2018-02-14] MEDS: ARIPiprazole 15 MG TABLET PO SCH (21:36)
[2018-02-15] MEDS: SODIUM CHLORIDE 1,000 ML IV SCH ×2 (01:00→12:48)
[2018-02-15] MEDS: HEPARIN NA (PORCINE) 5,000 UNITS/ML 1ML VIAL SQ SCH ×3 (06:12→21:52)
[2018-02-15 07:48] LABS: BASO % 0.7 % (0-2.0); EOS % 2.1 % (0-4.5); HEMATOCRIT 28.7 % (35.4-49); LYMPH % 12.7 % (8-40); MCHC 31.4 g/dl (32.0-35.9); MEAN CELL VOLUME 73.4 fl (80-96); MEAN PLT VOLUME 7.6 fl (7.5-11.1); MONO % 7.9 % (3.8-10.2); NEUT % 76.6 % (42.8-82.8); PLATELET COUNT 220 K/MM3 (134-434); RBC 3.91 M/mm3 (4.00-5.60); RDW 19.3 % (11.9-15.9); WHITE BLOOD COUNT 5.8 K/mm3 (4.0-10.0)
[2018-02-15 08:06] LABS: SERUM IRON SATURATION 4 % (15-55); TOTAL IRON BINDING CAPACITY 245 ug/dL (250-450); UIBC 235 ug/dL (111-343)
[2018-02-15] MEDS ORDERED: DEXTROSE 5%-WATER 100 ML IVPB ONE (08:11)
[2018-02-15 09:02] LABS: ANION GAP 6 MMOL/L (8-16); BLOOD UREA NITROGEN 13 mg/dL (7-18); CALCIUM 8.1 mg/dL (8.5-10.1); CHLORIDE 103 mmol/L (98-107); CO2 29 mmol/L (21-32); CREATININE 0.8 mg/dL (0.55-1.3); GLUCOSE,RANDOM 123 mg/dL (74-106); POTASSIUM 4.3 mmol/L (3.5-5.1); SODIUM 138 mmol/L (136-145)
[2018-02-15] MEDS: DOCUSATE SODIUM 100 MG CAPSULE (FP) PO SCH (09:25)
[2018-02-15] MEDS: ARIPiprazole 5 MG TABLET (FP) PO SCH (09:25)
[2018-02-15] MEDS: DIGOXIN 0.125 MG TABLET (FP) PO SCH (09:26)
[2018-02-15] MEDS: METOPROLOL TARTRATE 25 MG TABLET (FP) PO SCH ×2 (09:26→21:53)
[2018-02-15] MEDS: FUROSEMIDE 20 MG TABLET (FP) PO SCH (09:27)
--- NOTE | 2018-02-15 09:52 | PN ---
Physical Exam: SUBJECTIVE: Patient seen and examined. He has no complaints. OBJECTIVE: Vital Signs Period Temp Pulse Resp BP Sys/Stock Pulse Ox Last 24 Hr 97.6 F-98.8 F 79-94 16-18 102-132/66-79 98 GENERAL: The patient is awake, alert, and fully oriented, in no acute distress. LUNGS: Breath sounds equal, clear to auscultation bilaterally, no wheezes, no crackles, no accessory muscle use. HEART: Regular rate and rhythm, S1, S2 without murmur, rub or gallop. ABDOMEN: Soft, nontender, nondistended, normoactive bowel sounds, no guarding, no rebound, no hepatosplenomegaly, no masses. EXTREMITIES: 2+ pulses, warm, well-perfused, no edema. Laboratory Results - last 24 hr 02/14/18 02/15/18 02/15/18 06:30 06:00 06:00 WBC 5.8 RBC 3.91 L Hgb 9.0 L Hct 28.7 L MCV 73.4 L MCH 23.0 L MCHC 31.4 L RDW 19.3 H Plt Count 220 MPV 7.6 Absolute Neuts (auto) 4.4 Neutrophils % 76.6 Lymphocytes % 12.7 D Monocytes % 7.9 Eosinophils % 2.1 Basophils % 0.7 Nucleated RBC % 0 Sodium Potassium Chloride Carbon Dioxide Anion Gap BUN Creatinine Creat Clearance w eGFR Random Glucose Calcium Iron 10 L TIBC 245 L Iron Saturation 4 L HIV 1&2 Antibody Screen Negative HIV P24 Antigen Negative 02/15/18 06:00 WBC RBC Hgb Hct MCV MCH MCHC RDW Plt Count MPV Absolute Neuts (auto) Neutrophils % Lymphocytes % Monocytes % Eosinophils % Basophils % Nucleated RBC % Sodium 138 Potassium 4.3 Chloride 103 Carbon Dioxide 29 Anion Gap 6 L BUN 13 Creatinine 0.8 Creat Clearance w eGFR > 60 Random Glucose 123 H Calcium 8.1 L Iron TIBC Iron Saturation HIV 1&2 Antibody Screen HIV P24 Antigen Active Medications Generic Name Dose Route Start Last Admin Trade Name Freq PRN Reason Stop Dose Admin Aripiprazole 5 mg 02/14/18 10:00 02/15/18 09:25 Abilify PO 5 mg DAILY JONATHON Administration Aripiprazole 15 mg 02/14/18 22:00 02/14/18 21:36 Abilify PO 15 mg HS JONATHON Administration Digoxin 0.125 mg 02/14/18 10:00 02/15/18 09:26 Lanoxin - PO 0.125 mg DAILY JONATHON Administration Docusate Sodium 100 mg 02/14/18 10:00 02/15/18 09:25 Colace - PO 100 mg DAILY JONATHON Administration Ergocalciferol 50,000 unit 02/19/18 10:00 Drisdol - PO Tu@1000 JONATHON Furosemide 20 mg 02/14/18 10:00 02/15/18 09:27 Lasix - PO 20 mg DAILY JONATHON Administration Heparin Sodium (Porcine) 5,000 unit 02/14/18 06:00 02/15/18 06:12 Heparin - SQ 5,000 unit TID JONATHON Administration Sodium Chloride 1,000 mls @ 75 mls/hr 02/14/18 00:15 02/15/18 01:00 Normal Saline - IV Not Given ASDIR JONATHON Ceftriaxone Sodium 2 gm/ 100 mls @ 200 mls/hr 02/14/18 13:00 02/14/18 14:10 Dextrose IVPB 200 mls/hr DAILY JONATHON Administration Protocol Metronidazole 500 mg in 100 mls @ 100 mls/hr 02/14/18 13:00 02/15/18 09:05 Flagyl 500mg Premixed Ivpb - IVPB 100 mls/hr Q8H-IV JONATHON Administration Metoprolol Tartrate 12.5 mg 02/14/18 10:00 02/15/18 09:26 Lopressor - PO 12.5 mg BID JONATHON Administration ASSESSMENT/PLAN: 1. Left foot plantar ulcer with cellulitis and probable chronic osteomyelitis - Continue Rocephin, Flagyl - Wound culture growing multiple organisms - ESR 50 - MRI pending 2. History of atrial fib - Currently in SR - Continue Lopressor, Digoxin - Unclear why patient is not on anticoagulation 3. Schizophrenia - Continue Abilify 4. Anemia, microcytic - Iron studies consistent with anemia of chronic illness, although ferritin not done - Hemoglobin stable - Check ferritin 5. HTN - Continue Lopressor, Lasix Visit type - Emergency Visit Emergency Visit: Yes ED Registration Date: 02/13/18 Care time: The patient presented to the Emergency Department on the above date and was hospitalized for further evaluation of their emergent condition. - New Patient This patient is new to me today: Yes Date on this admission: 02/15/18 - Critical Care Critical Care patient: No - Discharge Referral Referred to [facility] No
[2018-02-15 10:14] LABS: ERYTHROCYTE SEDIMENTATION RATE 50 mm/hr (0-20)
--- NOTE | 2018-02-15 10:27 | PN ---
Progress Note (short form) - Note Progress Note: FUV left foot. +granulating wound left foot, -drainage, -cellulitis, -mal odor, MRI done but not read om? Discussed possible intervention if no infection or if infection possible intervention post tx. Santyl dressing left foot. Xray reviewed. Awaiting MRI result. Problem List - Problems (1) Osteomyelitis Code(s): M86.9 - OSTEOMYELITIS, UNSPECIFIED
[2018-02-15] MEDS: CEFTRIAXONE 2 GM in DEXTROSE 5%-WATER 100 ML IVPB SCH (12:45)
[2018-02-15] MEDS: COLLAGENASE CLOSTRIDIUM HIST. 30 GRAMS TUBE TP SCH (12:45)
--- NOTE | 2018-02-15 14:15 | PN ---
Progress Note (short form) - Note Progress Note: Duplex LE artery mild atherosclerotic disease without evidence of occlusion or hemodynamically significant stenosis. No Vascular surgical intervention warranted. Cont medical management. On behalf of Dr. Fernandez, thank you for the opportunity to participate in your patient's care.
--- NOTE | 2018-02-15 16:07 | PN ---
Progress Note, Physician History of Present Illness: Awake, seated in bed No c/o foot pain No fever/ chills Afebrile BC (-) Wound c/s mixed - Current Medication List Current Medications: Active Medications Aripiprazole (Abilify) 5 mg PO DAILY [facility] Last Admin: 02/15/18 09:25 Dose: 5 mg Aripiprazole (Abilify) 15 mg PO HS JONATHON Last Admin: 02/14/18 21:36 Dose: 15 mg Collagenase (Santyl -) 1 applic TP DAILY JONATHON; Protocol Last Admin: 02/15/18 12:45 Dose: 1 applic Digoxin (Lanoxin -) 0.125 mg PO DAILY [facility] Last Admin: 02/15/18 09:26 Dose: 0.125 mg Docusate Sodium (Colace -) 100 mg PO DAILY [facility] Last Admin: 02/15/18 09:25 Dose: 100 mg Ergocalciferol (Drisdol -) 50,000 unit PO Tu@1000 JONATHON Furosemide (Lasix -) 20 mg PO DAILY [facility] Last Admin: 02/15/18 09:27 Dose: 20 mg Heparin Sodium (Porcine) (Heparin -) 5,000 unit SQ TID JONATHON Last Admin: 02/15/18 13:00 Dose: 5,000 unit Sodium Chloride (Normal Saline -) 1,000 mls @ 75 mls/hr IV ASDIR JONATHON Last Admin: 02/15/18 12:48 Dose: 75 mls/hr Ceftriaxone Sodium 2 gm/ (Dextrose) 100 mls @ 200 mls/hr IVPB DAILY [facility]; Protocol Last Admin: 02/15/18 12:45 Dose: 200 mls/hr Metronidazole (Flagyl 500mg Premixed Ivpb -) 500 mg in 100 mls @ 100 mls/hr IVPB Q8H-IV JONATHON Last Admin: 02/15/18 09:05 Dose: 100 mls/hr Metoprolol Tartrate (Lopressor -) 12.5 mg PO BID [facility] Last Admin: 02/15/18 09:26 Dose: 12.5 mg - Objective Vital Signs: Vital Signs Temperature 98.7 F 02/15/18 08:21 Pulse Rate 94 H 02/15/18 09:26 Respiratory Rate 18 02/15/18 09:00 Blood Pressure 104/66 02/15/18 08:21 O2 Sat by Pulse Oximetry (%) 96 02/15/18 09:00 Constitutional: Yes: No Distress Eyes: Yes: Conjunctiva Clear Cardiovascular: Yes: Regular Rate and Rhythm, S1, S2 Respiratory: Yes: CTA Bilaterally Gastrointestinal: Yes: Normal Bowel Sounds, Soft. No: Tenderness Extremities: Yes: Other (L LE less swollen/warm. Plantar wounds no expressible pus but scant malodorous drainage on dressing) Labs: CBC, BMP 02/15/18 06:00 02/15/18 06:00 INR, PTT INR 1.17 (0.83-1.09) H 02/14/18 06:30 Assessment/Plan Infected plantar ulcers Cellulitis L LE improved Probable osteomyelitis Await c/s MRI Continue ceftriaxone/ flagyl
[2018-02-15] MEDS: ARIPiprazole 15 MG TABLET PO SCH (21:53)
[2018-02-16] MEDS: SODIUM CHLORIDE 1,000 ML IV SCH (06:06)
[2018-02-16] MEDS: HEPARIN NA (PORCINE) 5,000 UNITS/ML 1ML VIAL SQ SCH ×3 (06:06→21:03)
[2018-02-16 07:26] LABS: BASO % 0.6 % (0-2.0); EOS % 1.1 % (0-4.5); HEMATOCRIT 28.5 % (35.4-49); HEMOGLOBIN 8.8 GM/dL (11.7-16.9); LYMPH % 11.3 % (8-40); MCH 22.5 pg (25.7-33.7); MEAN CELL VOLUME 72.7 fl (80-96); MEAN PLT VOLUME 7.6 fl (7.5-11.1); MONO % 6.9 % (3.8-10.2); NEUT % 80.1 % (42.8-82.8); PLATELET COUNT 244 K/MM3 (134-434); RBC 3.92 M/mm3 (4.00-5.60); RDW 19.9 % (11.9-15.9); WHITE BLOOD COUNT 7.1 K/mm3 (4.0-10.0)
[2018-02-16] MEDS ORDERED: DEXTROSE 5%-WATER 100 ML IVPB ONE (09:27)
[2018-02-16] MEDS: CEFTRIAXONE 2 GM in DEXTROSE 5%-WATER 100 ML IVPB SCH (09:48)
[2018-02-16] MEDS: DOCUSATE SODIUM 100 MG CAPSULE (FP) PO SCH (09:49)
[2018-02-16] MEDS: FUROSEMIDE 20 MG TABLET (FP) PO SCH (09:50)
[2018-02-16] MEDS: DIGOXIN 0.125 MG TABLET (FP) PO SCH (09:50)
[2018-02-16] MEDS: COLLAGENASE CLOSTRIDIUM HIST. 30 GRAMS TUBE TP SCH (09:50)
[2018-02-16] MEDS: METOPROLOL TARTRATE 25 MG TABLET (FP) PO SCH ×2 (09:50→21:03)
[2018-02-16] MEDS: ARIPiprazole 5 MG TABLET (FP) PO SCH (09:50)
[2018-02-16] MEDS ORDERED: ACETAMINOPHEN 325 MG TABLET (FP) PO ONE (11:15)
--- NOTE | 2018-02-16 12:00 | PN ---
Physical Exam: SUBJECTIVE: Patient seen and examined. He has no complaints. OBJECTIVE: Vital Signs Period Temp Pulse Resp BP Sys/Stock Pulse Ox Last 24 Hr 97.9 F-98.9 F 85-89 18-18 114-129/70-75 98 GENERAL: The patient is awake, alert, and fully oriented, in no acute distress. LUNGS: Breath sounds equal, clear to auscultation bilaterally, no wheezes, no crackles, no accessory muscle use. HEART: Regular rate and rhythm, S1, S2 without murmur, rub or gallop. ABDOMEN: Soft, nontender, nondistended, normoactive bowel sounds, no guarding, no rebound, no hepatosplenomegaly, no masses. EXTREMITIES: 2+ pulses, warm, well-perfused, no edema. Laboratory Results - last 24 hr 02/16/18 02/16/18 06:00 06:00 WBC 7.1 RBC 3.92 L Hgb 8.8 L Hct 28.5 L MCV 72.7 L MCH 22.5 L MCHC 31.0 L RDW 19.9 H Plt Count 244 MPV 7.6 Absolute Neuts (auto) 5.7 Neutrophils % 80.1 Lymphocytes % 11.3 Monocytes % 6.9 Eosinophils % 1.1 Basophils % 0.6 Nucleated RBC % 0 Ferritin 18.0 Active Medications Generic Name Dose Route Start Last Admin Trade Name Roqueq PRN Reason Stop Dose Admin Aripiprazole 5 mg 02/14/18 10:00 02/16/18 09:50 Abilify PO 5 mg DAILY JONATHON Administration Aripiprazole 15 mg 02/14/18 22:00 02/15/18 21:53 Abilify PO 15 mg HS JONATHON Administration Collagenase 1 applic 02/15/18 10:30 02/16/18 09:50 Santyl - TP 1 applic DAILY JONATHON Administration Protocol Digoxin 0.125 mg 02/14/18 10:00 02/16/18 09:50 Lanoxin - PO 0.125 mg DAILY JONATHON Administration Docusate Sodium 100 mg 02/14/18 10:00 02/16/18 09:49 Colace - PO 100 mg DAILY JONATHON Administration Ergocalciferol 50,000 unit 02/19/18 10:00 Drisdol - PO Tu@1000 JONATHON Furosemide 20 mg 02/14/18 10:00 02/16/18 09:50 Lasix - PO 20 mg DAILY JONATHON Administration Heparin Sodium (Porcine) 5,000 unit 02/14/18 06:00 02/16/18 06:06 Heparin - SQ 5,000 unit TID JONATHON Administration Sodium Chloride 1,000 mls @ 75 mls/hr 02/14/18 00:15 02/16/18 06:06 Normal Saline - IV 75 mls/hr ASDIR JONATHON Administration Ceftriaxone Sodium 2 gm/ 100 mls @ 200 mls/hr 02/14/18 13:00 02/16/18 09:48 Dextrose IVPB 200 mls/hr DAILY JONATHON Administration Protocol Metronidazole 500 mg in 100 mls @ 100 mls/hr 02/14/18 13:00 02/16/18 10:47 Flagyl 500mg Premixed Ivpb - IVPB 100 mls/hr Q8H-IV JONATHON Administration Metoprolol Tartrate 12.5 mg 02/14/18 10:00 02/16/18 09:50 Lopressor - PO 12.5 mg BID JONATHON Administration ASSESSMENT/PLAN: This is a 67 year old man with a history of HTN, a fib, anemia, schizophrenia who was sent to the ED by his machine designer for evaluation of a left foot plantar ulcer. 1. Left foot plantar ulcer with cellulitis/abscess and osteomyelitis - Continue Rocephin, Flagyl - Wound culture growing multiple organisms - ESR 50, C-RP 7.6 - MRI of left foot shows extensive bone marrow edema of the 3rd metatarsal and proximal phalanx with fluid in the MTP joint with subcutaneous abscess and cellulitis - Arterial doppler of LLE shows mild atherosclerotic disease - ID, Podiatry follow up 2. History of atrial fib - Currently in SR - Continue Lopressor, Digoxin - Unclear why patient is not on anticoagulation 3. Schizophrenia - Continue Abilify 4. Anemia, microcytic - Iron studies consistent with anemia of chronic illness (low iron, TIBC, iron sat) and iron deficiency (low ferritin) - Hemoglobin is stable - Will give IV iron sucrose and start oral iron supplementation 5. HTN - Continue Lopressor, Lasix Visit type - Emergency Visit Emergency Visit: Yes ED Registration Date: 02/13/18 Care time: The patient presented to the Emergency Department on the above date and was hospitalized for further evaluation of their emergent condition. - New Patient This patient is new to me today: No - Critical Care Critical Care patient: No - Discharge Referral Referred to [facility] No
[2018-02-16] MEDS ORDERED: IRON SUCROSE INJECTION 200 MG in SODIUM CHLORIDE 90 ML IVPB ONE (15:00)
[2018-02-16] MEDS ORDERED: ACETAMINOPHEN 325 MG TABLET (FP) PO PRN (15:27)
[2018-02-16] MEDS: ARIPiprazole 15 MG TABLET PO SCH (21:03)
[2018-02-17] MEDS: HEPARIN NA (PORCINE) 5,000 UNITS/ML 1ML VIAL SQ SCH ×3 (05:52→22:15)
[2018-02-17 07:36] LABS: HEMATOCRIT 31.2 % (35.4-49); HEMOGLOBIN 9.7 GM/dL (11.7-16.9); MCH 22.6 pg (25.7-33.7); MCHC 31.2 g/dl (32.0-35.9); MEAN CELL VOLUME 72.5 fl (80-96); MEAN PLT VOLUME 7.8 fl (7.5-11.1); PLATELET COUNT 275 K/MM3 (134-434); RBC 4.31 M/mm3 (4.00-5.60); RDW 19.2 % (11.9-15.9); WHITE BLOOD COUNT 6.3 K/mm3 (4.0-10.0)
[2018-02-17 08:04] LABS: ANION GAP 7 MMOL/L (8-16); BLOOD UREA NITROGEN 11 mg/dL (7-18); CALCIUM 8.2 mg/dL (8.5-10.1); CHLORIDE 104 mmol/L (98-107); CO2 29 mmol/L (21-32); CREATININE 0.6 mg/dL (0.55-1.3); GLUCOSE,RANDOM 98 mg/dL (74-106); POTASSIUM 4.1 mmol/L (3.5-5.1); SODIUM 140 mmol/L (136-145)
[2018-02-17] MEDS ORDERED: PT OWN MED DRAWER 7, Y5N ONE (08:54)
[2018-02-17] MEDS ORDERED: DEXTROSE 5%-WATER 100 ML IVPB ONE (08:55)
[2018-02-17] MEDS: FUROSEMIDE 20 MG TABLET (FP) PO SCH (09:27)
[2018-02-17] MEDS: DIGOXIN 0.125 MG TABLET (FP) PO SCH (09:27)
[2018-02-17] MEDS: FERROUS SO4 325 MG TABLET (FP) PO SCH (09:27)
[2018-02-17] MEDS: CEFTRIAXONE 2 GM in DEXTROSE 5%-WATER 100 ML IVPB SCH (09:27)
[2018-02-17] MEDS: METOPROLOL TARTRATE 25 MG TABLET (FP) PO SCH ×2 (09:28→22:15)
[2018-02-17] MEDS: ARIPiprazole 5 MG TABLET (FP) PO SCH (09:29)
[2018-02-17] MEDS: DOCUSATE SODIUM 100 MG CAPSULE (FP) PO SCH (09:30)
[2018-02-17] MEDS: COLLAGENASE CLOSTRIDIUM HIST. 30 GRAMS TUBE TP SCH (09:30)
--- NOTE | 2018-02-17 12:17 | PN ---
Progress Note (short form) - Note Progress Note: FUV left foot. +granulating wound left foot, -drainage, -cellulitis, -mal odor, OM with abscess on MRI, wbc=6.3 om ulcer abscess Discussed possible intervention if no infection or if infection possible intervention post tx. Santyl dressing left foot. Xray reviewed. HBO consult. Will follow. Problem List - Problems (1) Osteomyelitis Code(s): M86.9 - OSTEOMYELITIS, UNSPECIFIED
--- NOTE | 2018-02-17 14:04 | PN ---
Physical Exam: SUBJECTIVE: Patient seen and examined OBJECTIVE: Vital Signs Period Temp Pulse Resp BP Sys/Stock Pulse Ox Last 24 Hr 97.4 F-98.7 F 62-99 20-20 105-128/73-78 97-98 GENERAL: The patient is awake, oriented x 2, confused LUNGS: Breath sounds equal, clear to auscultation bilaterally, no wheezes, no crackles, no accessory muscle use. HEART: Irregular, S1, S2 without murmur, rub or gallop. ABDOMEN: Soft, nontender, nondistended, normoactive bowel sounds, no guarding, no rebound, no hepatosplenomegaly, no masses. EXTREMITIES: 2+ pulses, warm, well-perfused, no edema. Laboratory Results - last 24 hr 02/17/18 02/17/18 06:20 06:20 WBC 6.3 RBC 4.31 Hgb 9.7 L Hct 31.2 L MCV 72.5 L MCH 22.6 L MCHC 31.2 L RDW 19.2 H Plt Count 275 MPV 7.8 Sodium 140 Potassium 4.1 Chloride 104 Carbon Dioxide 29 Anion Gap 7 L BUN 11 Creatinine 0.6 Creat Clearance w eGFR > 60 Random Glucose 98 Calcium 8.2 L Active Medications Generic Name Dose Route Start Last Admin Trade Name Freq PRN Reason Stop Dose Admin Acetaminophen 650 mg 02/16/18 15:27 Tylenol - PO Q4H PRN PAIN Aripiprazole 5 mg 02/14/18 10:00 02/17/18 09:29 Abilify PO 5 mg DAILY JONATHON Administration Aripiprazole 15 mg 02/14/18 22:00 02/16/18 21:03 Abilify PO 15 mg HS JONATHON Administration Collagenase 1 applic 02/15/18 10:30 02/17/18 09:30 Santyl - TP 1 applic DAILY JONATHON Administration Protocol Digoxin 0.125 mg 02/14/18 10:00 02/17/18 09:27 Lanoxin - PO 0.125 mg DAILY JONATHON Administration Docusate Sodium 100 mg 02/14/18 10:00 02/17/18 09:30 Colace - PO 100 mg DAILY JONATHON Administration Ergocalciferol 50,000 unit 02/19/18 10:00 Drisdol - PO Tu@1000 JONATHON Ferrous Sulfate 325 mg 02/17/18 10:00 02/17/18 09:27 Feosol - PO 325 mg DAILY JONATHON Administration Furosemide 20 mg 02/14/18 10:00 02/17/18 09:27 Lasix - PO 20 mg DAILY JONATHON Administration Heparin Sodium (Porcine) 5,000 unit 02/14/18 06:00 02/17/18 13:36 Heparin - SQ 5,000 unit TID JONATHON Administration Ceftriaxone Sodium 2 gm/ 100 mls @ 200 mls/hr 02/14/18 13:00 02/17/18 09:27 Dextrose IVPB 200 mls/hr DAILY JONATHON Administration Protocol Metronidazole 500 mg in 100 mls @ 100 mls/hr 02/14/18 13:00 02/17/18 10:21 Flagyl 500mg Premixed Ivpb - IVPB 100 mls/hr Q8H-IV JONATHON Administration Metoprolol Tartrate 12.5 mg 02/14/18 10:00 02/17/18 09:28 Lopressor - PO 12.5 mg BID JONATHON Administration ASSESSMENT/PLAN: This is a 67 year old man with a history of HTN, a fib, anemia, schizophrenia who was sent to the ED by his lockstitch sleeve setter for evaluation of a left foot plantar ulcer. 1. Left foot plantar ulcer with cellulitis/abscess and osteomyelitis - 02/15 MRI of left foot: extensive bone marrow edema of the 3rd metatarsal and proximal phalanx with fluid in the MTP joint with subcutaneous abscess and cellulitis consistent with osteo - wound culture growing multiple organisms - continue ceftriaxone (day #4) and metronidazole (day #4) - ID, podiatry follow up 2. History of atrial fib --Currently in SR - Continue Lopressor, Digoxin - Unclear why patient is not on anticoagulation 3. Schizophrenia - Continue abilify 4. Anemia, microcytic - Iron studies consistent with anemia of chronic illness (low iron, TIBC, iron sat) and iron deficiency (low ferritin) - h/h stable - continue iron supplementation 5. HTN --BP stable - c ontinue Lopressor, Lasix FEN Fluids: PO intake adequate Electrolytes: replete as indicated Nutrition: low sodium DVT propophylaxis: subq heparin Physical therapy Dispo: continues to require inpatient care. Full code. Visit type - Emergency Visit Emergency Visit: Yes ED Registration Date: 02/13/18 Care time: The patient presented to the Emergency Department on the above date and was hospitalized for further evaluation of their emergent condition. - New Patient This patient is new to me today: Yes Date on this admission: 02/17/18 - Critical Care Critical Care patient: No
[2018-02-17] MEDS: ARIPiprazole 15 MG TABLET PO SCH (22:15)
[2018-02-18] MEDS: HEPARIN NA (PORCINE) 5,000 UNITS/ML 1ML VIAL SQ SCH ×3 (05:53→22:06)
[2018-02-18 06:32] LABS: BASO % 1.4 % (0-2.0); EOS % 2.4 % (0-4.5); HEMATOCRIT 32.5 % (35.4-49); HEMOGLOBIN 10.1 GM/dL (11.7-16.9); MCH 22.9 pg (25.7-33.7); MCHC 31.2 g/dl (32.0-35.9); MEAN CELL VOLUME 73.3 fl (80-96); MEAN PLT VOLUME 7.8 fl (7.5-11.1); MONO % 8.8 % (3.8-10.2); NEUT % 66.4 % (42.8-82.8); PLATELET COUNT 304 K/MM3 (134-434); RBC 4.43 M/mm3 (4.00-5.60); RDW 19.1 % (11.9-15.9)
[2018-02-18 07:33] LABS: ALBUMIN 2.6 g/dl (3.4-5.0); ALK PHOS 87 U/L (45-117); ANION GAP 7 MMOL/L (8-16); BILIRUBIN,TOTAL 0.2 mg/dL (0.2-1); BLOOD UREA NITROGEN 13 mg/dL (7-18); CALCIUM 8.2 mg/dL (8.5-10.1); CHLORIDE 105 mmol/L (98-107); CO2 29 mmol/L (21-32); CREATININE 0.6 mg/dL (0.55-1.3); GLUCOSE,RANDOM 100 mg/dL (74-106); MAGNESIUM 2.1 mg/dL (1.8-2.4); POTASSIUM 4.4 mmol/L (3.5-5.1); SGOT/AST 53 U/L (15-37); SGPT/ALT 34 U/L (13-61); SODIUM 141 mmol/L (136-145); TOT PROT 6.9 g/dl (6.4-8.2)
[2018-02-18] MEDS ORDERED: DEXTROSE 5%-WATER 100 ML IVPB ONE (08:40)
[2018-02-18] MEDS: DOCUSATE SODIUM 100 MG CAPSULE (FP) PO SCH (09:18)
[2018-02-18] MEDS: FERROUS SO4 325 MG TABLET (FP) PO SCH (09:18)
[2018-02-18] MEDS: FUROSEMIDE 20 MG TABLET (FP) PO SCH (09:18)
[2018-02-18] MEDS: METOPROLOL TARTRATE 25 MG TABLET (FP) PO SCH ×2 (09:19→22:05)
[2018-02-18] MEDS: DIGOXIN 0.125 MG TABLET (FP) PO SCH (09:19)
[2018-02-18] MEDS: CEFTRIAXONE 2 GM in DEXTROSE 5%-WATER 100 ML IVPB SCH (09:20)
[2018-02-18] MEDS: COLLAGENASE CLOSTRIDIUM HIST. 30 GRAMS TUBE TP SCH (09:20)
[2018-02-18] MEDS: ARIPiprazole 5 MG TABLET (FP) PO SCH (09:21)
--- NOTE | 2018-02-18 15:14 | PN ---
Physical Exam: SUBJECTIVE: Patient seen and examined at bedside. OBJECTIVE: Vital Signs Period Temp Pulse Resp BP Sys/Stock Pulse Ox Last 24 Hr 98 F-98.4 F 86-100 18-20 102-140/61-82 97 GENERAL: The patient is awake, oriented x 2, confused at times LUNGS: Breath sounds equal, clear to auscultation bilaterally, no wheezes, no crackles, no accessory muscle use. HEART: Irregular, S1, S2 without murmur, rub or gallop. ABDOMEN: Soft, nontender, nondistended, normoactive bowel sounds, no guarding, no rebound, no hepatosplenomegaly, no masses. EXTREMITIES: 2+ pulses, warm, well-perfused, no edema. Laboratory Results - last 24 hr 02/18/18 02/18/18 06:00 06:00 WBC 5.0 RBC 4.43 Hgb 10.1 L Hct 32.5 L MCV 73.3 L MCH 22.9 L MCHC 31.2 L RDW 19.1 H Plt Count 304 MPV 7.8 Absolute Neuts (auto) 3.3 Neutrophils % 66.4 Lymphocytes % 21.0 D Monocytes % 8.8 Eosinophils % 2.4 D Basophils % 1.4 Nucleated RBC % 0 Sodium 141 Potassium 4.4 Chloride 105 Carbon Dioxide 29 Anion Gap 7 L BUN 13 Creatinine 0.6 Creat Clearance w eGFR > 60 Random Glucose 100 Calcium 8.2 L Magnesium 2.1 Total Bilirubin 0.2 AST 53 H ALT 34 Alkaline Phosphatase 87 Total Protein 6.9 Albumin 2.6 L Active Medications Generic Name Dose Route Start Last Admin Trade Name Freq PRN Reason Stop Dose Admin Acetaminophen 650 mg 02/16/18 15:27 Tylenol - PO Q4H PRN PAIN Aripiprazole 5 mg 02/14/18 10:00 02/18/18 09:21 Abilify PO 5 mg DAILY JONATHON Administration Aripiprazole 15 mg 02/14/18 22:00 02/17/18 22:15 Abilify PO 15 mg HS JONATHON Administration Collagenase 1 applic 02/15/18 10:30 02/18/18 09:20 Santyl - TP 1 applic DAILY JONATHON Administration Protocol Digoxin 0.125 mg 02/14/18 10:00 02/18/18 09:19 Lanoxin - PO 0.125 mg DAILY JONATHON Administration Docusate Sodium 100 mg 02/14/18 10:00 02/18/18 09:18 Colace - PO 100 mg DAILY JONATHON Administration Ergocalciferol 50,000 unit 02/19/18 10:00 Drisdol - PO Tu@1000 JONATHON Ferrous Sulfate 325 mg 02/17/18 10:00 02/18/18 09:18 Feosol - PO 325 mg DAILY JONATHON Administration Furosemide 20 mg 02/14/18 10:00 02/18/18 09:18 Lasix - PO 20 mg DAILY JONATHON Administration Heparin Sodium (Porcine) 5,000 unit 02/14/18 06:00 02/18/18 05:53 Heparin - SQ 5,000 unit TID JONATHON Administration Ceftriaxone Sodium 2 gm/ 100 mls @ 200 mls/hr 02/14/18 13:00 02/18/18 09:20 Dextrose IVPB 200 mls/hr DAILY JONATHON Administration Protocol Metronidazole 500 mg in 100 mls @ 100 mls/hr 02/14/18 13:00 02/18/18 09:18 Flagyl 500mg Premixed Ivpb - IVPB 100 mls/hr Q8H-IV JONATHON Administration Metoprolol Tartrate 12.5 mg 02/14/18 10:00 02/18/18 09:19 Lopressor - PO 12.5 mg BID JONATHON Administration ASSESSMENT/PLAN This is a 67 year old man with a history of HTN, a fib, anemia, and schizophrenia who was sent to the ED by his grease monkey for evaluation of a left foot plantar ulcer. 1. Left foot plantar ulcer with cellulitis/abscess and osteomyelitis - 02/15 MRI of left foot: extensive bone marrow edema of the 3rd metatarsal and proximal phalanx with fluid in the MTP joint with subcutaneous abscess and cellulitis consistent with osteo - wound culture growing multiple organisms - continue ceftriaxone (day #5) and metronidazole (day #5) - discuss with podiatry drainage of abscess - will need PICC and long-term antibiotics; ID following 2. History of atrial fib --Currently in SR - Continue Lopressor, Digoxin - Unclear why patient is not on anticoagulation; will check with [place] [facility] 3. Schizophrenia - Continue abilify 4. Anemia, microcytic - Iron studies consistent with anemia of chronic illness (low iron, TIBC, iron sat) and iron deficiency (low ferritin) - h/h stable - continue iron supplementation 5. HTN --BP stable - continue Lopressor, Lasix FEN Fluids: PO intake adequate Electrolytes: replete as indicated Nutrition: low sodium DVT propophylaxis: subq heparin Physical therapy: walked 200 feet today Dispo: continues to require inpatient care. Full code. Visit type - Emergency Visit Emergency Visit: Yes ED Registration Date: 02/13/18 Care time: The patient presented to the Emergency Department on the above date and was hospitalized for further evaluation of their emergent condition. - New Patient This patient is new to me today: No - Critical Care Critical Care patient: No
--- NOTE | 2018-02-18 15:47 | PN ---
Progress Note, Physician History of Present Illness: Awake, seated in bed No c/o foot pain No fever/ chills Afebrile BC (-) Wound c/s mixed MRI noted + osteomyelitis/ abscess - Current Medication List Current Medications: Active Medications Acetaminophen (Tylenol -) 650 mg PO Q4H PRN PRN Reason: PAIN Aripiprazole (Abilify) 5 mg PO DAILY [facility] Last Admin: 02/18/18 09:21 Dose: 5 mg Aripiprazole (Abilify) 15 mg PO HS JONATHON Last Admin: 02/17/18 22:15 Dose: 15 mg Collagenase (Santyl -) 1 applic TP DAILY [facility]; Protocol Last Admin: 02/18/18 09:20 Dose: 1 applic Digoxin (Lanoxin -) 0.125 mg PO DAILY [facility] Last Admin: 02/18/18 09:19 Dose: 0.125 mg Docusate Sodium (Colace -) 100 mg PO DAILY [facility] Last Admin: 02/18/18 09:18 Dose: 100 mg Ergocalciferol (Drisdol -) 50,000 unit PO Tu@1000 JONATHON Ferrous Sulfate (Feosol -) 325 mg PO DAILY [facility] Last Admin: 02/18/18 09:18 Dose: 325 mg Furosemide (Lasix -) 20 mg PO DAILY [facility] Last Admin: 02/18/18 09:18 Dose: 20 mg Heparin Sodium (Porcine) (Heparin -) 5,000 unit SQ TID JONATHON Last Admin: 02/18/18 05:53 Dose: 5,000 unit Ceftriaxone Sodium 2 gm/ (Dextrose) 100 mls @ 200 mls/hr IVPB DAILY [facility]; Protocol Last Admin: 02/18/18 09:20 Dose: 200 mls/hr Metronidazole (Flagyl 500mg Premixed Ivpb -) 500 mg in 100 mls @ 100 mls/hr IVPB Q8H-IV JONATHON Last Admin: 02/18/18 09:18 Dose: 100 mls/hr Metoprolol Tartrate (Lopressor -) 12.5 mg PO BID [facility] Last Admin: 02/18/18 09:19 Dose: 12.5 mg - Objective Vital Signs: Vital Signs Temperature 98.2 F 02/18/18 14:28 Pulse Rate 92 H 02/18/18 14:28 Respiratory Rate 20 02/18/18 14:28 Blood Pressure 108/72 02/18/18 14:28 O2 Sat by Pulse Oximetry (%) 97 02/17/18 21:00 Constitutional: Yes: No Distress Eyes: Yes: Conjunctiva Clear Cardiovascular: Yes: Regular Rate and Rhythm, S1, S2 Respiratory: Yes: CTA Bilaterally Gastrointestinal: Yes: Normal Bowel Sounds, Soft. No: Tenderness Extremities: Yes: Other (L foot plantar wounds no drainage. 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
[2018-02-18] MEDS: ARIPiprazole 15 MG TABLET PO SCH (22:05)
[2018-02-19] MEDS: HEPARIN NA (PORCINE) 5,000 UNITS/ML 1ML VIAL SQ SCH ×3 (06:00→21:42)
[2018-02-19] MEDS: ARIPiprazole 5 MG TABLET (FP) PO SCH (09:14)
[2018-02-19] MEDS ORDERED: DEXTROSE 5%-WATER 100 ML IVPB ONE (09:18)
[2018-02-19] MEDS: CEFTRIAXONE 2 GM in DEXTROSE 5%-WATER 100 ML IVPB SCH (09:20)
[2018-02-19] MEDS: FUROSEMIDE 20 MG TABLET (FP) PO SCH (09:20)
[2018-02-19] MEDS: DIGOXIN 0.125 MG TABLET (FP) PO SCH (09:21)
[2018-02-19] MEDS: METOPROLOL TARTRATE 25 MG TABLET (FP) PO SCH ×2 (09:21→21:41)
[2018-02-19] MEDS: DOCUSATE SODIUM 100 MG CAPSULE (FP) PO SCH (09:22)
[2018-02-19] MEDS: FERROUS SO4 325 MG TABLET (FP) PO SCH (09:22)
[2018-02-19] MEDS ORDERED: ERGOCALCIFEROL (VITAMIN D2) 50,000 UNIT CAPSULE (FP) PO SCH (10:00)
[2018-02-19] MEDS: COLLAGENASE CLOSTRIDIUM HIST. 30 GRAMS TUBE TP SCH (14:06)
--- NOTE | 2018-02-19 14:42 | PN ---
Physical Exam: SUBJECTIVE: Patient seen and examined at bedside. Voices no complaints. OBJECTIVE: Vital Signs Period Temp Pulse Resp BP Sys/Stock Pulse Ox Last 24 Hr 97.3 F-98.4 F 82-91 18-20 93-114/57-75 97 GENERAL: The patient is awake, oriented x 2 LUNGS: Breath sounds equal, clear to auscultation bilaterally, no wheezes, no crackles, no accessory muscle use. HEART: Irregular, S1, S2 without murmur, rub or gallop. ABDOMEN: Soft, nontender, nondistended, normoactive bowel sounds, no guarding, no rebound, no hepatosplenomegaly, no masses. LLE: circular wound to plantar surface, ~3cm diameter, dry; no surrounding erythema, no fluctance, not tender Active Medications Generic Name Dose Route Start Last Admin Trade Name Freq PRN Reason Stop Dose Admin Acetaminophen 650 mg 02/16/18 15:27 Tylenol - PO Q4H PRN PAIN Aripiprazole 5 mg 02/14/18 10:00 02/19/18 09:14 Abilify PO 5 mg DAILY JONATHON Administration Aripiprazole 15 mg 02/14/18 22:00 02/18/18 22:05 Abilify PO 15 mg HS JONATHON Administration Collagenase 1 applic 02/15/18 10:30 02/19/18 14:06 Santyl - TP 1 applic DAILY JONATHON Administration Protocol Digoxin 0.125 mg 02/14/18 10:00 02/19/18 09:21 Lanoxin - PO 0.125 mg DAILY JONATHON Administration Docusate Sodium 100 mg 02/14/18 10:00 02/19/18 09:22 Colace - PO 100 mg DAILY JONATHON Administration Ergocalciferol 50,000 unit 02/19/18 10:00 02/19/18 09:14 Drisdol - PO 50,000 unit Tu@1000 JONATHON Administration Ferrous Sulfate 325 mg 02/17/18 10:00 02/19/18 09:22 Feosol - PO 325 mg DAILY JONATHON Administration Furosemide 20 mg 02/14/18 10:00 02/19/18 09:20 Lasix - PO 20 mg DAILY JONATHON Administration Heparin Sodium (Porcine) 5,000 unit 02/14/18 06:00 02/19/18 14:07 Heparin - SQ 5,000 unit TID JONATHON Administration Ceftriaxone Sodium 2 gm/ 100 mls @ 200 mls/hr 02/14/18 13:00 02/19/18 09:20 Dextrose IVPB 200 mls/hr DAILY JONATHON Administration Protocol Metronidazole 500 mg in 100 mls @ 100 mls/hr 02/14/18 13:00 02/19/18 09:23 Flagyl 500mg Premixed Ivpb - IVPB 100 mls/hr Q8H-IV JONATHON Administration Metoprolol Tartrate 12.5 mg 02/14/18 10:00 02/19/18 09:21 Lopressor - PO 12.5 mg BID JONATHON Administration ASSESSMENT/PLAN This is a 67 year old man with a history of HTN, a fib, anemia, schizophrenia who was 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 1. Left foot plantar ulcer with cellulitis/abscess and osteomyelitis - 02/15 MRI of left foot: extensive bone marrow edema of the 3rd metatarsal and proximal phalanx with fluid in the MTP joint with evolving subcutaneous abscess and cellulitis consistent with osteo - will repeat MRI with contrast to assess abscess formation - wound culture growing multiple organisms - continue ceftriaxone (day #5) and metronidazole (day #5) - will need PICC line and long-term antibiotics - ID, podiatry following 2. History of atrial fib --EKG ordered --Continue Lopressor, Digoxin --spoke with Diya, briefcase sewer at [facility] and with medical administrative specialist at Dr. Dunn's office; patient was admitted to [facility] on 2014 on Pradaxa 150mg BID. Shortly thereafter patient was hospitalized at [facility] and when he returned to [facility] on 05/21/15 the records indicate Pradaxa was discontinued; has not been on anticoagulation since 3. Schizophrenia - Continue abilify 4. Anemia, microcytic - Iron studies consistent with anemia of chronic illness (low iron, TIBC, iron sat) and iron deficiency (low ferritin) - h/h stable - continue iron supplementation 5. HTN --BP stable - continue Lopressor, Lasix FEN Fluids: PO intake adequate Electrolytes: replete as indicated Nutrition: low sodium DVT propophylaxis: subq heparin Physical therapy Dispo: continues to require inpatient care. Full code. Visit type - Emergency Visit Emergency Visit: Yes ED Registration Date: 02/13/18 Care time: The patient presented to the Emergency Department on the above date and was hospitalized for further evaluation of their emergent condition. - New Patient This patient is new to me today: No - Critical Care Critical Care patient: No
--- NOTE | 2018-02-19 15:03 | PN ---
Progress Note (short form) - Note Progress Note: FUV left foot. Patient seen in bed. Alert and oriented. +granulating wound left foot, -drainage, -cellulitis, -mal odor, OM on MRI, wbc =5.0 om ulcer Discussed possible intervention if no infection or if infection possible intervention post tx. Santyl dressing left foot. Xray reviewed. HBO consult. Will follow. No intervention at this time. Can go home with IVABX, WCC, and HBO if approved. Will follow till dc. Problem List - Problems (1) Osteomyelitis Code(s): M86.9 - OSTEOMYELITIS, UNSPECIFIED
--- NOTE | 2018-02-19 17:41 | EKG ---
Test Reason : Blood Pressure : / mmHG Vent. Rate : 071 BPM Atrial Rate : 441 BPM P-R Int : 000 ms QRS Dur : 100 ms QT Int : 356 ms P-R-T Axes : 000 080 060 degrees QTc Int : 386 ms ATRIAL FIBRILLATION ABNORMAL ECG NO PREVIOUS ECGS AVAILABLE Confirmed by Shiv Valencia MD ([id number]) on 02/19/2018 5:40:59 PM Referred By: ALEISHA DENIS Confirmed By:Shiv Valencia MD
[2018-02-19] MEDS ORDERED: PT OWN MED DRAWER 7, Y5N ONE (17:58)
[2018-02-19] MEDS: ARIPiprazole 15 MG TABLET PO SCH (21:42)
[2018-02-20] MEDS: HEPARIN NA (PORCINE) 5,000 UNITS/ML 1ML VIAL SQ SCH ×2 (05:45→14:21)
[2018-02-20] MEDS ORDERED: PICC LINE 8 ML FLUSH PROTOCOL IVPUSH PRN (07:54)
--- NOTE | 2018-02-20 07:54 | DS ---
Physical Exam: SUBJECTIVE: Patient seen and examined OBJECTIVE: Vital Signs Period Temp Pulse Resp BP Sys/Stock Pulse Ox Last 24 Hr 97.3 F-98.4 F 82-94 18-20 93-116/56-75 96 PHYSICAL EXAM GENERAL: The patient is awake, alert, and fully oriented, in no acute distress. HEAD: Normal with no signs of trauma. EYES: PERRL, extraocular movements intact, sclera anicteric, conjunctiva clear. ENT: Ears normal, nares patent, oropharynx clear without exudates, moist mucous membranes. NECK: Trachea midline, full range of motion, supple. LUNGS: Breath sounds equal, clear to auscultation bilaterally, no wheezes, no crackles, no accessory muscle use. HEART: Regular rate and rhythm, S1, S2 without murmur, rub or gallop. ABDOMEN: Soft, nontender, nondistended, normoactive bowel sounds, no guarding, no rebound, no hepatosplenomegaly, no masses. EXTREMITIES: 2+ pulses, warm, well-perfused, no edema. NEUROLOGICAL: Cranial nerves II through XII grossly intact. Normal speech, gait not observed. PSYCH: Normal mood, normal affect. SKIN: Warm, dry, normal turgor, no rashes or lesions noted. LABS HOSPITAL COURSE: Date of Admission:02/13/18 Date of Discharge: 02/20/18 Discharge Summary Reason For Visit: EDEMA OF LOWER EXTREMITY/PSTEOMYELITIS Current Active Problems Diabetic peripheral vascular disease (Acute) Foot pain (Acute) Leg edema (Acute) Osteomyelitis (Acute) Condition: Improved - Instructions Diet, Activity, Other Instructions: TO THE MEDICAL ST[facility]FF AT [facility]: Mr. Theodore has atrial fibrillation. A copy of his EKG is being faxed to you with this discharge summary. He apparently has not been on anticoagulation since Referrals: John Dunn [Primary Care Provider] - Disposition: HOME - Home Medications Comprehensive Discharge Medication List: Ambulatory Orders Aripiprazole [Abilify -] 15 mg PO HS 02/13/18 Aripiprazole [Abilify] 5 mg PO DAILY 02/13/18 Digoxin [Lanoxin -] 0.125 mg PO DAILY 02/13/18 Docusate Sodium [Colace -] 100 mg PO DAILY 02/13/18 Ergocalciferol (Vitamin D2) [Drisdol] 50,000 unit PO WEEKLY 02/13/18 Furosemide [Lasix -] 20 mg PO DAILY 02/13/18 Metoprolol Tartrate [Lopressor -] 12.5 mg PO BID 02/13/18 Potassium Chloride [K-Dur -] 10 meq PO DAILY 02/13/18 - Discharge Referral Referred to [facility] No
[2018-02-20] MEDS ORDERED: PT OWN MED DRAWER 7, Y5N ONE (08:38)
[2018-02-20] MEDS ORDERED: DEXTROSE 5%-WATER 100 ML IVPB ONE (08:39)
[2018-02-20] MEDS: CEFTRIAXONE 2 GM in DEXTROSE 5%-WATER 100 ML IVPB SCH (09:18)
[2018-02-20] MEDS: METOPROLOL TARTRATE 25 MG TABLET (FP) PO SCH (09:19)
[2018-02-20] MEDS: DIGOXIN 0.125 MG TABLET (FP) PO SCH (09:19)
[2018-02-20] MEDS: FUROSEMIDE 20 MG TABLET (FP) PO SCH (09:19)
[2018-02-20] MEDS: FERROUS SO4 325 MG TABLET (FP) PO SCH (09:19)
[2018-02-20] MEDS: DOCUSATE SODIUM 100 MG CAPSULE (FP) PO SCH (09:19)
[2018-02-20] MEDS: ARIPiprazole 5 MG TABLET (FP) PO SCH (09:20)
[2018-02-20] MEDS: COLLAGENASE CLOSTRIDIUM HIST. 30 GRAMS TUBE TP SCH (09:20)
[2018-02-20 13:38] VITALS: BP 110/62; PULSE 77; TEMP 97.6
== END 2018-02-20 20:55 | DRG 344 ==
LOC: JER 12:58 → JERBED 20:19 → J7W 23:47
PROVIDERS: ADMIT Internal Medicine; ATTEND Nurse Practitioner Acute Care
PROC: 02HV33Z Insertion of Infusion Device into Superior Vena Cava, Percutaneous Approach (ICD-10-PCS; principal; 2018-02-20)
DX: M86.172 Other acute osteomyelitis, left ankle and foot (principal); F20.89 Other schizophrenia; D64.9 Anemia, unspecified; L03.116 Cellulitis of left lower limb; Z68.1 Body mass index [BMI] 19.9 or less, adult; E11.51 Type 2 diabetes mellitus with diabetic peripheral angiopathy without gangrene; I10 Essential (primary) hypertension; I48.91 Unspecified atrial fibrillation
CPT/HCPCS: 36415; 36569; 73610-TC-LT-FY; 73630-TC-LT; 73718-LT; 77001-TC-FY; 80048; 80053; 80162; 82607; 82728; 83540; 83550; 83605; 83735; 84100; 85025; 85027; 85044; 85610; 85651; 85730; 86140; 87040; 87070; 87081; 87186; 87205; 87389; 93005; 93010; 93923; 93926-TC; 93971-TC; 96365; 97116-GP; 97161-GP; 99282-25; C1751; J1644; J1756; J7030

== ENCOUNTER 2018-07-08 16:24 | Inpatient (IN) | payer OTHER ==
--- NOTE | 2018-07-08 17:28 | PDOC ---
Attending Attestation - Resident Resident Name: Brigida Browning - ED Attending Attestation I have performed the following: I have examined & evaluated the patient, The case was reviewed & discussed with the resident, I agree w/resident's findings & plan, Exceptions are as noted - HPI HPI: 07/08/18 17:26 67 yo male from [facility] has a nonhealing left foot wound - Physicial Exam PE: 07/08/18 17:28 thin 67 y male with foul smelling right foot wound head ncat neck supple lungs cta b/l cvs irr,irreg rhythm abd flat,nontender ext: on the left foot there is a 4 cm wound on the ball of his foot, fluctuate,tender,with erythema surrounding the wound skin warm and dry neuro axox3,moving all his extremities psych odd affect - Medical Decision Making 07/08/18 18:53 diff diag includes cellulitis,osteomylitis,abscess Wound cultures sent Blood cultures sent. Patient to be admitted for IV antibiotics for left foot infection, ID consult 07/08/18 19:05
--- NOTE | 2018-07-08 17:29 | PDOC ---
History of Present Illness - General Chief Complaint: Wound Stated Complaint: FOOT ULCER Time Seen by Provider: 07/08/18 16:48 - History of Present Illness Initial Comments: Julio Theodore is a 67yo man with a PMH of schizophrenia, a-fib, HTN, previous admission for L foot osteo who presents from [facility] due to a malodorous right foot wound. Mr Theodore states that he does not see any problem with the wound. He believes that it is healing well. He states that the only problem is that he wants to keep it dry, but the [facility] staff keeps telling him he needs to shower. He denies any recent fevers, chills, wound bleeding, or significant drainage, but he is a poor historian and unable to provide much information. Past History - Past Medical History Allergies/Adverse Reactions: Allergies Allergy/AdvReac Type Severity Reaction Status Date / Time No Known Allergies Allergy Verified 07/08/18 16:29 Home Medications: Ambulatory Orders Aripiprazole [Abilify] 5 mg PO DAILY 02/13/18 Digoxin [Lanoxin -] 0.125 mg PO DAILY 02/13/18 Docusate Sodium [Colace -] 100 mg PO BID 02/13/18 Metoprolol Tartrate [Lopressor -] 12.5 mg PO BID 02/13/18 Cardiac Disorders: Yes (a fib) COPD: No CHF: Yes GI Disorders: Yes (gerd) Psychiatric Problems: Yes (schizophrenia) - Surgical History Orthopedic Surgery: Yes (L knee) - Immunization History Immunization Up to Date: Yes - Suicide/Smoking/Psychosocial Hx Smoking History: Never smoked Have you smoked in the past 12 months: No Hx Alcohol Use: No Drug/Substance Use Hx: No Substance Use Type: None Review of Systems - Review of Systems Comments:: General: No fevers, no chills, no weight or appetite change, no malaise HEENT: No changes in vision, no changes in hearing, no congestion, no sore throat CV: No chest pain, no palpitations, no LE edema Pulm: No SOB, no cough, no wheezing GI: No nausea or vomiting, no change in bowel habits, no melena : No frequency, no urgency, no dysuria Musc: No back pain, no joint swelling, no recent injury Skin: No rash, no lesions, no erythema Endo: No excessive thirst, no heat/cold intolerance Heme: No unusual bruising or bleeding, no swollen glands Neuro: No syncope, no numbness/tingling, no focal weakness Vasc: No claudication Psych: No recent change in mood, no SI or HI. h/o schizophrenia *Physical Exam - Vital Signs Last Vital Signs Temp Pulse Resp BP Pulse Ox 97.7 F 94 H 16 113/73 98 07/08/18 16:30 07/08/18 16:30 07/08/18 16:30 07/08/18 16:30 07/08/18 16:30 - Physical Exam Comments: General: Comfortable, no acute distress HEENT: PERRL, EOMI, MMM, voice normal, normal neck ROM, no LAD Cards: RRR, no murmur appreciated Pulm: Comfortable on room air, clear to auscultation bilaterally Abd: Soft, nontender, nondistended Ext: Atraumatic. 1+ non-pitting BLE edema. ROM intact. Strength 5/5 and equal bilaterally. R foot plantar surface with 1x2cm wound with exudate, significant skin surrounding, swelling in tissue around wound. Malodorous. Plantar surface of L foot with small slit-like wound, appears clean w/o drainage Vasc: Extremities WWP Skin: Normal color, no rashes or lesions Neuro: A&Ox3, CN grossly intact, normal speech, motor/sensory grossly intact and symmetric Psych: Mood appropriate to situation Moderate Sedation - Procedure Monitoring Vital Signs: Procedure Monitoring Vital Signs Temperature 97.7 F 07/08/18 16:30 Pulse Rate 94 H 07/08/18 16:30 Respiratory Rate 16 07/08/18 16:30 Blood Pressure 113/73 07/08/18 16:30 O2 Sat by Pulse Oximetry (%) 98 07/08/18 16:30 ED Treatment Course - LABORATORY CBC & Chemistry Diagram: 07/08/18 18:00 07/08/18 18:00 - RADIOLOGY Radiology Studies Ordered: Category Date Time Status CHEST PA & LAT [RAD] Stat Radiology 07/08/18 17:24 Ordered FOOT-RIGHT [RAD] Stat Radiology 07/08/18 17:24 Ordered Medical Decision Making - Medical Decision Making 07/08/18 17:29 Julio Theodore is a 67yo man with a PMH of schizophrenia, afib (on digoxin) and HTN, previously admitted for L foot osteo, who now presents from a SNF with a malodorous right plantar foot wound that is concerning for wound infection. - Pt initially declining any blood tests, but agreed after discussion - No systemic symptoms known, though pt is a poor historian, that suggest bacteremia or sepsis - CBC, chemistry, wound cultures, blood cultures, UA, urine culture - Xrays of R foot to eval for osteo 07/08/18 17:49 - Pt declined blood tests again. Stated that he "donated blood" previously and we can use that for tests. Explained that the blood tests can help treat the foot wound infection. He agrees to labs 07/08/18 19:03 - Labs reviewed. No concerning abnormalities. No leukocytosis. - Discussed with Dr May for admission. Discussed with Dr Archer. Brigida Browning PGY1 *DC/Admit/Observation/Transfer Diagnosis at time of Disposition: Wound of right foot - Discharge Dispostion Condition at time of disposition: Stable Decision to Admit order: Yes - Referrals Referrals: John Dunn [Primary Care Provider] - - Patient Instructions - Post Discharge Activity
[2018-07-08 18:24] LABS: BASO % 0.7 % (0-2.0); EOS % 0.7 % (0-4.5); HEMATOCRIT 29.2 % (35.4-49); HEMOGLOBIN 9.6 GM/dL (11.7-16.9); LYMPH % 7.9 % (8-40); MCH 27.3 pg (25.7-33.7); MEAN CELL VOLUME 82.8 fl (80-96); MEAN PLT VOLUME 7.6 fl (7.5-11.1); MONO % 6.6 % (3.8-10.2); NEUT % 84.1 % (42.8-82.8); PLATELET COUNT 195 K/MM3 (134-434); RBC 3.53 M/mm3 (4.00-5.60); RDW 17.1 % (11.9-15.9); WHITE BLOOD COUNT 8.4 K/mm3 (4.0-10.0)
[2018-07-08 18:38] LABS: URINE APPEARANCE CLEAR; URINE BILIRUBIN NEGATIVE (<2.0 mg/dL); URINE COLOR YELLOW; URINE GLUCOSE (UA) NEGATIVE (NEGATIVE); URINE KETONE TRACE (NEGATIVE); URINE LEUK ESTERASE NEGATIVE (NEGATIVE); URINE NITRITE NEGATIVE (NEGATIVE); URINE PROTEIN NEGATIVE (NEGATIVE)
[2018-07-08 18:48] LABS: ALBUMIN 2.9 g/dl (3.4-5.0); ALK PHOS 90 U/L (45-117); ANION GAP 4 MMOL/L (8-16); BILIRUBIN,TOTAL 0.4 mg/dL (0.2-1); BLOOD UREA NITROGEN 13 mg/dL (7-18); CALCIUM 8.4 mg/dL (8.5-10.1); CHLORIDE 104 mmol/L (98-107); CO2 28 mmol/L (21-32); CREATININE 0.6 mg/dL (0.55-1.3); GLUCOSE,RANDOM 94 mg/dL (74-106); MAGNESIUM 2.2 mg/dL (1.8-2.4); PHOSPHOROUS 2.9 mg/dL (2.5-4.9); POTASSIUM 3.9 mmol/L (3.5-5.1); SGOT/AST 9 U/L (15-37); SGPT/ALT 13 U/L (13-61); SODIUM 137 mmol/L (136-145); TOT PROT 6.6 g/dl (6.4-8.2)
--- NOTE | 2018-07-08 21:26 | HP ---
Admitting History and Physical - Primary Care Physician PCP: Jorge May - Admission History of Present Illness: 67yo man with a PMH of schizophrenia, a-fib, HTN, previous admission for L foot osteo who presents from [facility] due to a malodorous right foot wound. Mr Theodore states that he does not see any problem with the wound. He believes that it is healing well. He states that the only problem is that he wants to keep it dry, but the [facility] staff keeps telling him he needs to shower. He denies any recent fevers, chills, wound bleeding, or significant drainage, but he is a poor historian and unable to provide much information. - Past Medical History Cardiovascular: Yes: AFIB, HTN Psych: Yes: Schizophrenia - Smoking History Smoking history: Never smoked Have you smoked in the past 12 months: No - Alcohol/Substance Use Hx Alcohol Use: No Home Medications - Allergies Allergies/Adverse Reactions: Allergies Allergy/AdvReac Type Severity Reaction Status Date / Time No Known Allergies Allergy Verified 07/08/18 16:29 - Home Medications Home Medications: Ambulatory Orders Aripiprazole [Abilify] 5 mg PO DAILY 02/13/18 Digoxin [Lanoxin -] 0.125 mg PO DAILY 02/13/18 Docusate Sodium [Colace -] 100 mg PO BID 02/13/18 Metoprolol Tartrate [Lopressor -] 12.5 mg PO BID 02/13/18 Physical Examination Vital Signs: Vital Signs Temperature 98.2 F 07/08/18 20:58 Pulse Rate 88 07/08/18 20:58 Respiratory Rate 19 07/08/18 20:58 Blood Pressure 117/81 07/08/18 20:58 O2 Sat by Pulse Oximetry (%) 100 07/08/18 20:58 Constitutional: Yes: No Distress HENT: Yes: Atraumatic Neck: Yes: Supple Cardiovascular: Yes: Regular Rate and Rhythm Respiratory: Yes: CTA Bilaterally Gastrointestinal: Yes: Normal Bowel Sounds Extremities: Yes: Other (L foot infection) Neurological: Yes: Alert, Oriented Labs: CBC, BMP 07/08/18 18:00 07/08/18 18:00 Imaging - Results X-ray: Report Reviewed Problem List - Problems (1) HTN (hypertension) Assessment/Plan: on meds monitor Code(s): I10 - ESSENTIAL (PRIMARY) HYPERTENSION (2) Wound of right foot Assessment/Plan: iv abx podiatry/id consult Code(s): S91.301A - UNSPECIFIED OPEN WOUND, RIGHT FOOT, INITIAL ENCOUNTER (3) Diabetic peripheral vascular disease Code(s): E11.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 Assessment/Plan Laboratory Tests 07/08/18 07/08/18 07/08/18 18:00 18:00 18:13 WBC 8.4 RBC 3.53 L Hgb 9.6 L Hct 29.2 L MCV 82.8 MCH 27.3 D MCHC 33.0 RDW 17.1 H Plt Count 195 D MPV 7.6 Absolute Neuts (auto) 7.1 Neutrophils % 84.1 H D Lymphocytes % 7.9 L D Monocytes % 6.6 Eosinophils % 0.7 Basophils % 0.7 Nucleated RBC % 0 Sodium 137 Potassium 3.9 Chloride 104 Carbon Dioxide 28 Anion Gap 4 L BUN 13 Creatinine 0.6 Creat Clearance w eGFR > 60 Random Glucose 94 Calcium 8.4 L Phosphorus 2.9 Magnesium 2.2 Total Bilirubin 0.4 AST 9 L ALT 13 Alkaline Phosphatase 90 Total Protein 6.6 Albumin 2.9 L Urine Color Yellow Urine Appearance Clear Urine pH 5.0 Ur Specific [place] 1.024 Urine Protein Negative Urine Glucose (UA) Negative Urine Ketones Trace H Urine Blood Negative Urine Nitrite Negative Urine Bilirubin Negative Urine Urobilinogen 2.0 Ur Leukocyte Esterase Negative Active Medications Generic Name Dose Route Start Last Admin Trade Name Freq PRN Reason Stop Dose Admin Acetaminophen 650 mg 07/08/18 21:30 Tylenol - PO Q6H PRN FEVER Aripiprazole 5 mg 07/09/18 10:00 07/10/18 09:27 Abilify PO 5 mg DAILY JONATHON Administration Collagenase 1 applic 07/10/18 10:00 07/10/18 09:26 Santyl - TP 1 applic DAILY JONATHON Administration Protocol Docusate Sodium 100 mg 07/08/18 22:00 07/10/18 09:27 Colace - PO 100 mg BID JONATHON Administration Heparin Sodium (Porcine) 5,000 unit 07/08/18 22:00 07/10/18 09:27 Heparin - SQ 5,000 unit BID JONATHON Administration Piperacillin Sod/Tazobactam 50 mls @ 100 mls/hr 07/08/18 22:15 07/10/18 14:09 Sod 3.375 gm/ Dextrose IVPB 100 mls/hr TID JONATHON Administration Protocol Metoprolol Tartrate 12.5 mg 07/08/18 22:00 07/10/18 09:27 Lopressor - PO 12.5 mg BID JONATHON Administration
[2018-07-08] MEDS ORDERED: ACETAMINOPHEN 325 MG TABLET (FP) PO PRN (21:30)
[2018-07-08] MEDS: HEPARIN NA (PORCINE) 5,000 UNITS/ML 1ML VIAL SQ SCH (22:02)
[2018-07-08] MEDS: DOCUSATE SODIUM 100 MG CAPSULE (FP) PO SCH (22:02)
[2018-07-08] MEDS: METOPROLOL TARTRATE 25 MG TABLET (FP) PO SCH (22:02)
[2018-07-08] MEDS ORDERED: VANCOMYCIN 1 GRAM (PRE-DOCKED) 1,000 MG/250 ML BAG IVPB ONE (22:14)
[2018-07-08] MEDS ORDERED: DEXTROSE 5%-WATER - 50 ML IVPB ONE (22:37)
[2018-07-08] MEDS ORDERED: PIPERACILLIN/TAZOBACTAM 3.375 GM VIAL IVPB ONE (22:37)
[2018-07-08] MEDS: PIPERACILLIN/TAZOB 3.375 GM 3.375 GM in DEXTROSE 5%-WATER - 50 ML IVPB SCH (23:38)
[2018-07-09] MEDS ORDERED: DEXTROSE 5%-WATER - 50 ML IVPB ONE ×3 (05:00→21:05)
[2018-07-09] MEDS ORDERED: PIPERACILLIN/TAZOBACTAM 3.375 GM VIAL IVPB ONE ×3 (05:00→21:05)
[2018-07-09] MEDS: PIPERACILLIN/TAZOB 3.375 GM 3.375 GM in DEXTROSE 5%-WATER - 50 ML IVPB SCH ×3 (06:13→21:35)
[2018-07-09 08:48] LABS: BASO % 0.6 % (0-2.0); HEMATOCRIT 27.5 % (35.4-49); HEMOGLOBIN 9.2 GM/dL (11.7-16.9); LYMPH % 8.3 % (8-40); MCH 27.1 pg (25.7-33.7); MCHC 33.5 g/dl (32.0-35.9); MEAN CELL VOLUME 80.8 fl (80-96); MEAN PLT VOLUME 8.2 fl (7.5-11.1); MONO % 6.9 % (3.8-10.2); NEUT % 83.2 % (42.8-82.8); PLATELET COUNT 185 K/MM3 (134-434); RBC 3.41 M/mm3 (4.00-5.60)
[2018-07-09 09:15] LABS: ALBUMIN 2.5 g/dl (3.4-5.0); ALK PHOS 83 U/L (45-117); ANION GAP 6 MMOL/L (8-16); BILIRUBIN,TOTAL 0.4 mg/dL (0.2-1); BLOOD UREA NITROGEN 12 mg/dL (7-18); CALCIUM 7.8 mg/dL (8.5-10.1); CHLORIDE 106 mmol/L (98-107); CO2 28 mmol/L (21-32); CREATININE 0.7 mg/dL (0.55-1.3); GLUCOSE,RANDOM 93 mg/dL (74-106); POTASSIUM 4.1 mmol/L (3.5-5.1); SGOT/AST 9 U/L (15-37); SGPT/ALT 12 U/L (13-61); SODIUM 140 mmol/L (136-145)
[2018-07-09] MEDS: METOPROLOL TARTRATE 25 MG TABLET (FP) PO SCH ×2 (12:03→21:34)
[2018-07-09] MEDS: HEPARIN NA (PORCINE) 5,000 UNITS/ML 1ML VIAL SQ SCH ×2 (12:03→21:35)
[2018-07-09] MEDS: DOCUSATE SODIUM 100 MG CAPSULE (FP) PO SCH ×2 (12:04→21:34)
[2018-07-09] MEDS: ARIPiprazole 5 MG TABLET (FP) PO SCH (12:05)
--- NOTE | 2018-07-09 12:09 | CONSULT ---
<WallaceYaritza floresBrittaney - Last Filed: 07/09/18 13:13> - Consultation REQUESTING PROVIDER: CONSULT REQUEST: We have been asked to surgically evaluate this patient for left foot wound. Patient was seen by Dr Fernandez for similar wound on the contralateral foot in January 2018. PCP:Jorge May HISTORY OF PRESENT ILLNESS: Julio Theodore is a 67yo man with a PMH of schizophrenia, a-fib, HTN, previous admission for L foot osteo who presents from [facility] due to a malodorous right foot wound. Mr Theodore states that he does not see any problem with the wound which he developed over several weeks after wearing ill fitting shoes. He believes that it is healing well. He states that the only problem is that he wants to keep it dry, but the prison staff keeps telling him he needs to shower. He denies any recent fevers, chills, wound bleeding, or significant drainage, but he is a poor historian and unable to provide much information. Cardiac Disorders: Yes (a fib) COPD: No CHF: Yes GI Disorders: Yes (gerd) Psychiatric Problems: Yes (schizophrenia) - Surgical History Orthopedic Surgery: Yes (L knee) - Immunization History Immunization Up to Date: Yes - Suicide/Smoking/Psychosocial Hx Smoking History: Never smoked Have you smoked in the past 12 months: No Hx Alcohol Use: No Drug/Substance Use Hx: No Substance Use Type: None Last Vital Signs Temp Pulse Resp BP Pulse Ox 97.7 F 94 H 16 113/73 98 07/08/18 16:30 07/08/18 16:30 07/08/18 16:30 07/08/18 16:30 07/08/18 16:30 Review of Systems - Review of Systems Comments:: General: No fevers, no chills, no weight or appetite change, no malaise HEENT: No changes in vision, no changes in hearing, no congestion, no sore throat CV: No chest pain, no palpitations, no LE edema Pulm: No SOB, no cough, no wheezing GI: No nausea or vomiting, no change in bowel habits, no melena : No frequency, no urgency, no dysuria Musc: No back pain, no joint swelling, no recent injury Skin: No rash, no lesions, no erythema Endo: No excessive thirst, no heat/cold intolerance Heme: No unusual bruising or bleeding, no swollen glands Neuro: No syncope, no numbness/tingling, no focal weakness Vasc: No claudication Psych: No recent change in mood, no SI or HI. h/o schizophrenia - Physical Exam Comments: General: Comfortable, no acute distress HEENT:voice normal, no evidence of trauma Ext: b/l LE compartments soft, NT with no lesions or rashes. Deformity (Claw toes in feet. Left ankle decreased ROM) Edema: No Peripheral Pulses: Palapable DP bilaterally, B/L PT palpable, R foot plantar surface with 1x2cm wound with exudate, significant skin surrounding, swelling in tissue around wound. Malodorous. Plantar surface of L foot with small slit-like wound, appears clean w/o drainage Vasc: Extremities WWP Skin: Normal color, no rashes or lesions Neuro: A&Ox3, CN grossly intact, normal speech, motor/sensory grossly intact and symmetric Psych: Mood appropriate to situation Home Medications - Allergies Allergies/Adverse Reactions: Allergies Allergy/AdvReac Type Severity Reaction Status Date / Time No Known Allergies Allergy Verified 07/08/18 16:29 - Home Medications Home Medications: Ambulatory Orders Home Medications Medication Instructions Recorded Aripiprazole [Abilify] 5 mg PO DAILY 02/13/18 Digoxin [Lanoxin -] 0.125 mg PO DAILY 02/13/18 Docusate Sodium [Colace -] 100 mg PO BID 02/13/18 Metoprolol Tartrate [Lopressor -] 12.5 mg PO BID 02/13/18 Vital Signs: Period Temp Pulse Resp BP Sys/Stock Pulse Ox Last 24 Hr 97.7 F-99.2 F 84-94 16-20 109-123/67-83 98-100 Labs: CBC, BMP 07/09/18 07:30 07/09/18 07:30 Problem List - Problems (1) Wound of right foot Assessment/Plan: No evidence for vascular intervention at this time. Please refer to podiatry PRN. 1) podiatry for foot care 2) Santyl to right foot wound daily 3) Off load pressure sensitive area 4) Follow up with wound care as out patient Evaluation and plan discussed with Dr Fernandez Code(s): S91.301A - UNSPECIFIED OPEN WOUND, RIGHT FOOT, INITIAL ENCOUNTER <Marquez Fernandez - Last Filed: 07/10/18 10:56> - Consultation REQUESTING PROVIDER: CONSULT REQUEST: We have been asked to surgically evaluate this patient for ( specify). PCP:Jorge May HISTORY OF PRESENT ILLNESS: PMHx: PSHx: Home Medications Medication Instructions Recorded Aripiprazole [Abilify] 5 mg PO DAILY 02/13/18 Digoxin [Lanoxin -] 0.125 mg PO DAILY 02/13/18 Docusate Sodium [Colace -] 100 mg PO BID 02/13/18 Metoprolol Tartrate [Lopressor -] 12.5 mg PO BID 02/13/18 Allergies Allergy/AdvReac Type Severity Reaction Status Date / Time No Known Allergies Allergy Verified 07/08/18 16:29 REVIEW OF SYSTEMS: CONSTITUTIONAL: Absent: fever, chills, diaphoresis, generalized weakness, malaise, loss of appetite, weight change CARDIOVASCULAR: Absent: chest pain, syncope, palpitations, irregular heart rate, lightheadedness , peripheral edema RESPIRATORY: Absent: cough, shortness of breath, dyspnea with exertion, wheezing, stridor, hemoptysis GASTROINTESTINAL: Absent: abdominal pain, abdominal distension, nausea, vomiting, diarrhea, constipation, melena, hematochezia GENITOURINARY: Absent: dysuria, frequency, urgency, hesitancy, hematuria, flank pain, genital pain MUSCULOSKELETAL: Absent: myalgia, arthralgia, joint swelling, back pain, neck pain SKIN: Absent: rash, itching, pallor HEMATOLOGIC/IMMUNOLOGIC: Absent: easy bleeding, easy bruising, lymphadenopathy NEUROLOGIC: Absent: headache, focal weakness, paresthesias, dizziness, unsteady gait, seizure, mental status changes, bladder or bowel incontinence PSYCHIATRIC: Absent: anxiety, depression, suicidal or homicidal ideation, hallucinations. PHYSICAL EXAM: GENERAL: Awake, alert, and fully oriented, in no acute distress. HEAD: Normal with no signs of trauma. EYES: PERRL, sclera anicteric, conjunctiva clear. NECK: Normal ROM, supple without lymphadenopathy, JVD, or masses. LUNGS: Clear to auscultation bilat anteriorly. No wheezes, and no crackles. No accessory muscle use. HEART: Regular rate and rhythm. No murmurs ABDOMEN: Soft, nontender, not distended, normoactive bowel sounds, no guarding, no rebound, no masses. No organomegaly. MUSCULOSKELETAL: Normal ROM at all joints. No bony deformities or tenderness. No CVA tenderness. UPPER EXTREMITIES: 2+ pulses, warm, well-perfused. No cyanosis. Cap refill <2 seconds. No peripheral edema. LOWER EXTREMITIES: 2+ pulses, warm, well-perfused. No calf tenderness. No peripheral edema. NEUROLOGICAL: Normal speech, gait not observed. PSYCH: Cooperative. Good eye contact. Appropriate mood and affect. SKIN: Warm, dry, normal turgor, no rashes or lesions noted. Vital Signs Temperature 98.2 F 07/10/18 06:00 Pulse Rate 86 07/10/18 06:00 Respiratory Rate 18 07/10/18 06:00 Blood Pressure 106/70 07/10/18 06:00 O2 Sat by Pulse Oximetry (%) 100 07/09/18 21:00 Lab Results WBC 8.0 K/mm3 (4.0-10.0) 07/09/18 07:30 RBC 3.41 M/mm3 (4.00-5.60) L 07/09/18 07:30 Hgb 9.2 GM/dL (11.7-16.9) L 07/09/18 07:30 Hct 27.5 % (35.4-49) L 07/09/18 07:30 MCV 80.8 fl (80-96) 07/09/18 07:30 MCHC 33.5 g/dl (32.0-35.9) 07/09/18 07:30 RDW 17.0 % (11.9-15.9) H 07/09/18 07:30 Plt Count 185 K/MM3 (134-434) 07/09/18 07:30 Sodium 140 mmol/L (136-145) 07/09/18 07:30 Potassium 4.1 mmol/L (3.5-5.1) 07/09/18 07:30 Chloride 106 mmol/L (98-107) 07/09/18 07:30 Carbon Dioxide 28 mmol/L (21-32) 07/09/18 07:30 Anion Gap 6 MMOL/L (8-16) L 07/09/18 07:30 BUN 12 mg/dL (7-18) 07/09/18 07:30 Creatinine 0.7 mg/dL (0.55-1.3) 07/09/18 07:30 Random Glucose 93 mg/dL (74-106) 07/09/18 07:30 Calcium 7.8 mg/dL (8.5-10.1) L 07/09/18 07:30 History reviewed and patient examined. This is a 67 year old diabetic with peripheral neuropathy and a mal perforans ulcer of the right foot. He has normal pedal pulses and no evidence for perpipheral arterial disease. X-ray shows metatarsal head changes suggestive of osteomyelitis. On exam the plantar ulcer has thick callus and extends to bone. There is curling of toes consistent with neuropathic changes. Foot is warm with 2+ palpable DP and PT. Imp: Neuropathic foot ulcer, no vascular disease. Rec: Surgical debridement with metatarsal head resection followed by aggressive wound care
--- NOTE | 2018-07-09 20:32 | PN ---
Progress Note, Physician History of Present Illness: stable - Current Medication List Current Medications: Active Medications Acetaminophen (Tylenol -) 650 mg PO Q6H PRN PRN Reason: FEVER Aripiprazole (Abilify) 5 mg PO DAILY REPLACED BY [facility] Last Admin: 07/09/18 12:05 Dose: 5 mg Collagenase (Santyl -) 1 applic TP DAILY REPLACED BY [facility]; Protocol Docusate Sodium (Colace -) 100 mg PO BID REPLACED BY [facility] Last Admin: 07/09/18 12:04 Dose: 100 mg Heparin Sodium (Porcine) (Heparin -) 5,000 unit SQ BID REPLACED BY [facility] Last Admin: 07/09/18 12:03 Dose: 5,000 unit Piperacillin Sod/Tazobactam (Sod 3.375 gm/ Dextrose) 50 mls @ 100 mls/hr IVPB TID REPLACED BY [facility]; Protocol Last Admin: 07/09/18 15:28 Dose: 100 mls/hr Metoprolol Tartrate (Lopressor -) 12.5 mg PO BID REPLACED BY [facility] Last Admin: 07/09/18 12:03 Dose: 12.5 mg - Objective Vital Signs: Vital Signs Temperature 97.6 F 07/09/18 17:15 Pulse Rate 87 07/09/18 17:15 Respiratory Rate 18 07/09/18 17:15 Blood Pressure 121/74 07/09/18 17:15 O2 Sat by Pulse Oximetry (%) 100 07/09/18 09:00 Constitutional: Yes: No Distress HENT: Yes: Atraumatic Neck: Yes: Supple Cardiovascular: Yes: Regular Rate and Rhythm Respiratory: Yes: CTA Bilaterally Gastrointestinal: Yes: Normal Bowel Sounds Extremities: Yes: Other (R foot wound) Edema: Yes Edema: LLE: Trace Neurological: Yes: Alert, Oriented Labs: CBC, BMP 07/09/18 07:30 07/09/18 07:30 Problem List - Problems (1) HTN (hypertension) Assessment/Plan: on meds monitor Code(s): I10 - ESSENTIAL (PRIMARY) HYPERTENSION (2) Wound of right foot Assessment/Plan: iv abx podiatry/id consult Code(s): S91.301A - UNSPECIFIED OPEN WOUND, RIGHT FOOT, INITIAL ENCOUNTER (3) Diabetic peripheral vascular disease Code(s): E11.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
[2018-07-10] MEDS ORDERED: DEXTROSE 5%-WATER - 50 ML IVPB ONE ×3 (05:35→21:31)
[2018-07-10] MEDS ORDERED: PIPERACILLIN/TAZOBACTAM 3.375 GM VIAL IVPB ONE ×3 (05:35→21:31)
[2018-07-10] MEDS: PIPERACILLIN/TAZOB 3.375 GM 3.375 GM in DEXTROSE 5%-WATER - 50 ML IVPB SCH ×3 (05:43→21:36)
--- NOTE | 2018-07-10 08:41 | CONSULT ---
Consult Consult Specialty:: Podiatry Reason for Consultation:: chronic wound right foot - History of Present Illness Chief Complaint: chronic wound right foot History of Present Illness: chronic plantar foot wound with infection. - History Source History Provided By: Patient - Past Medical History Cardio/Vascular: Yes: AFIB, HTN Psych: Yes: Schizophrenia - Alcohol/Substance Use Hx Alcohol Use: No - Smoking History Smoking history: Never smoked Have you smoked in the past 12 months: No Home Medications - Allergies Allergies/Adverse Reactions: Allergies Allergy/AdvReac Type Severity Reaction Status Date / Time No Known Allergies Allergy Verified 07/08/18 16:29 - Home Medications Home Medications: Ambulatory Orders Aripiprazole [Abilify] 5 mg PO DAILY 02/13/18 Digoxin [Lanoxin -] 0.125 mg PO DAILY 02/13/18 Docusate Sodium [Colace -] 100 mg PO BID 02/13/18 Metoprolol Tartrate [Lopressor -] 12.5 mg PO BID 02/13/18 Physical Exam Vital Signs: Vital Signs Temperature 98.2 F 07/10/18 06:00 Pulse Rate 86 07/10/18 06:00 Respiratory Rate 18 07/10/18 06:00 Blood Pressure 106/70 07/10/18 06:00 O2 Sat by Pulse Oximetry (%) 100 07/09/18 21:00 Extremities: Yes: Other (grade 3 foul smelling wound sub met 3 right) Labs: CBC, BMP 07/09/18 07:30 07/09/18 07:30 Assessment/Plan grade 3 wound right r/o om santyl to wound right plantar foot. mri. will discuss with id. vascular consult Dr. Fan. will follow.
[2018-07-10] MEDS ORDERED: PT OWN MED DRAWER 7, Y5N ONE (09:05)
[2018-07-10] MEDS: COLLAGENASE CLOSTRIDIUM HIST. 30 GRAMS TUBE TP SCH (09:26)
[2018-07-10] MEDS: ARIPiprazole 5 MG TABLET (FP) PO SCH (09:27)
[2018-07-10] MEDS: METOPROLOL TARTRATE 25 MG TABLET (FP) PO SCH ×2 (09:27→21:35)
[2018-07-10] MEDS: HEPARIN NA (PORCINE) 5,000 UNITS/ML 1ML VIAL SQ SCH ×2 (09:27→21:35)
[2018-07-10] MEDS: DOCUSATE SODIUM 100 MG CAPSULE (FP) PO SCH ×2 (09:27→21:35)
--- NOTE | 2018-07-10 09:28 | CON.ID ---
Consult Consult Specialty:: infectious diseases Referred by:: Reason for Consultation:: non healing ulcer on the foot - History of Present Illness Chief Complaint: non healing of the pressure ulcer History of Present Illness: 67yo man with a PMH of schizophrenia, a-fib, HTN, previous admission for L foot osteo who presents from [facility] due to a malodorous right foot wound. according to the patient he has had tis wound fo quite some time but does not bother him Mr Theodore states that he does not see any problem with the wound. He believes that it is healing well. He states that the only problem is that he wants to keep it dry, but the jail staff keeps telling him he needs to shower. He denies any recent fevers, chills, wound bleeding, or significant drainage, but he is a poor historian and unable to provide much information. - History Source History Provided By: Patient, Medical Record Limitations to Obtaining History: Poor Historian - Past Medical History Cardio/Vascular: Yes: AFIB, HTN Psych: Yes: Schizophrenia - Alcohol/Substance Use Hx Alcohol Use: No - Smoking History Smoking history: Never smoked Have you smoked in the past 12 months: No Home Medications - Allergies Allergies/Adverse Reactions: Allergies Allergy/AdvReac Type Severity Reaction Status Date / Time No Known Allergies Allergy Verified 07/08/18 16:29 - Home Medications Home Medications: Ambulatory Orders Aripiprazole [Abilify] 5 mg PO DAILY 02/13/18 Digoxin [Lanoxin -] 0.125 mg PO DAILY 02/13/18 Docusate Sodium [Colace -] 100 mg PO BID 02/13/18 Metoprolol Tartrate [Lopressor -] 12.5 mg PO BID 02/13/18 Review of Systems - Review of Systems Constitutional: reports: No Symptoms Eyes: reports: No Symptoms HENT: reports: No Symptoms Neck: reports: No Symptoms Cardiovascular: reports: No Symptoms Respiratory: reports: No Symptoms Gastrointestinal: reports: No Symptoms Genitourinary: reports: No Symptoms Musculoskeletal: reports: No Symptoms Integumentary: reports: Other Neurological: reports: No Symptoms Endocrine: reports: No Symptoms Hematology/Lymphatic: reports: No Symptoms Psychiatric: reports: No Symptoms Physical Exam Vital Signs: Vital Signs Temperature 98.2 F 07/10/18 06:00 Pulse Rate 86 07/10/18 06:00 Respiratory Rate 18 07/10/18 06:00 Blood Pressure 106/70 07/10/18 06:00 O2 Sat by Pulse Oximetry (%) 100 07/09/18 21:00 Constitutional: Yes: Well Nourished, No Distress, Calm Eyes: Yes: Conjunctiva Clear HENT: Yes: Atraumatic Neck: Yes: Supple, Trachea Midline Cardiovascular: Yes: Regular Rate and Rhythm Respiratory: Yes: Regular, CTA Bilaterally Gastrointestinal: Yes: Normal Bowel Sounds, Soft Musculoskeletal: Yes: WNL Extremities: Yes: Other Neurological: Yes: Alert, Oriented Psychiatric: Yes: Alert, Oriented Labs: CBC, BMP 07/09/18 07:30 07/09/18 07:30 Imaging - Results Chest X-ray: Report Reviewed, Image Reviewed X-ray: Report Reviewed, Image Reviewed Assessment/Plan Problem List - Problems (1) HTN (hypertension) Code(s): I10 - ESSENTIAL (PRIMARY) HYPERTENSION (2) Wound of right foot Code(s): S91.301A - UNSPECIFIED OPEN WOUND, RIGHT FOOT, INITIAL ENCOUNTER (3) Diabetic peripheral vascular disease Code(s): E11.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 r/o osteo worried that is osteo plan continue abx await for mri podiatry on case rest as per the team esr,crp
--- NOTE | 2018-07-10 17:46 | PN ---
Progress Note, Physician History of Present Illness: stable - Current Medication List Current Medications: Active Medications Acetaminophen (Tylenol -) 650 mg PO Q6H PRN PRN Reason: FEVER Aripiprazole (Abilify) 5 mg PO DAILY [facility] Last Admin: 07/10/18 09:27 Dose: 5 mg Collagenase (Santyl -) 1 applic TP DAILY [facility]; Protocol Last Admin: 07/10/18 09:26 Dose: 1 applic Docusate Sodium (Colace -) 100 mg PO BID [facility] Last Admin: 07/10/18 09:27 Dose: 100 mg Heparin Sodium (Porcine) (Heparin -) 5,000 unit SQ BID [facility] Last Admin: 07/10/18 09:27 Dose: 5,000 unit Piperacillin Sod/Tazobactam (Sod 3.375 gm/ Dextrose) 50 mls @ 100 mls/hr IVPB TID [facility]; Protocol Last Admin: 07/10/18 14:09 Dose: 100 mls/hr Metoprolol Tartrate (Lopressor -) 12.5 mg PO BID [facility] Last Admin: 07/10/18 09:27 Dose: 12.5 mg - Objective Vital Signs: Vital Signs Temperature 98.1 F 07/10/18 14:45 Pulse Rate 85 07/10/18 14:45 Respiratory Rate 16 07/10/18 14:45 Blood Pressure 106/61 07/10/18 14:45 O2 Sat by Pulse Oximetry (%) 100 07/10/18 09:00 Constitutional: Yes: No Distress HENT: Yes: Atraumatic Neck: Yes: Supple Cardiovascular: Yes: Regular Rate and Rhythm Respiratory: Yes: CTA Bilaterally Gastrointestinal: Yes: Normal Bowel Sounds Extremities: Yes: Other (R foot infection/WOUND) Neurological: Yes: Alert, Oriented Labs: CBC, BMP 07/09/18 07:30 07/09/18 07:30 Problem List - Problems (1) HTN (hypertension) Assessment/Plan: on meds monitor Code(s): I10 - ESSENTIAL (PRIMARY) HYPERTENSION (2) Wound of right foot Assessment/Plan: iv abx podiatry/id consult Code(s): S91.301A - UNSPECIFIED OPEN WOUND, RIGHT FOOT, INITIAL ENCOUNTER (3) Diabetic peripheral vascular disease Code(s): E11.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 (4) Schizophrenia Code(s): F20.9 - SCHIZOPHRENIA, UNSPECIFIED
[2018-07-11] MEDS ORDERED: PIPERACILLIN/TAZOBACTAM 3.375 GM VIAL IVPB ONE ×3 (06:14→21:37)
[2018-07-11] MEDS ORDERED: DEXTROSE 5%-WATER - 50 ML IVPB ONE ×3 (06:14→21:37)
[2018-07-11] MEDS: PIPERACILLIN/TAZOB 3.375 GM 3.375 GM in DEXTROSE 5%-WATER - 50 ML IVPB SCH ×3 (06:23→21:39)
--- NOTE | 2018-07-11 08:47 | CONSULT ---
Consult Consult Specialty:: VAscular Surgery Reason for Consultation:: Chronic wound right foot. - History Source Limitations to Obtaining History: No Limitations - Past Medical History Cardio/Vascular: Yes: AFIB, HTN Psych: Yes: Schizophrenia - Alcohol/Substance Use Hx Alcohol Use: No - Smoking History Smoking history: Never smoked Have you smoked in the past 12 months: No Home Medications - Allergies Allergies/Adverse Reactions: Allergies Allergy/AdvReac Type Severity Reaction Status Date / Time No Known Allergies Allergy Verified 07/08/18 16:29 - Home Medications Home Medications: Ambulatory Orders Aripiprazole [Abilify] 5 mg PO DAILY 02/13/18 Digoxin [Lanoxin -] 0.125 mg PO DAILY 02/13/18 Docusate Sodium [Colace -] 100 mg PO BID 02/13/18 Metoprolol Tartrate [Lopressor -] 12.5 mg PO BID 02/13/18 Review of Systems - Review of Systems Constitutional: reports: No Symptoms Eyes: reports: No Symptoms HENT: reports: No Symptoms Neck: reports: No Symptoms Cardiovascular: reports: No Symptoms Respiratory: reports: No Symptoms Gastrointestinal: reports: No Symptoms Genitourinary: reports: No Symptoms Musculoskeletal: reports: No Symptoms Integumentary: reports: No Symptoms Neurological: reports: No Symptoms Endocrine: reports: No Symptoms Hematology/Lymphatic: reports: No Symptoms Psychiatric: reports: No Symptoms Physical Exam Vital Signs: Vital Signs Temperature 98.2 F 07/11/18 06:00 Pulse Rate 81 07/11/18 06:00 Respiratory Rate 20 07/11/18 06:00 Blood Pressure 124/69 07/11/18 06:00 O2 Sat by Pulse Oximetry (%) 100 07/10/18 21:00 Constitutional: Yes: Well Nourished, No Distress, Calm Eyes: Yes: WNL, Conjunctiva Clear, EOM Intact HENT: Yes: WNL, Atraumatic, Normocephalic Neck: Yes: WNL, Supple, Trachea Midline Cardiovascular: Yes: WNL, Regular Rate and Rhythm Respiratory: Yes: WNL, Regular, CTA Bilaterally Gastrointestinal: Yes: WNL, Normal Bowel Sounds ...Rectal Exam: Yes: WNL Renal/: Yes: WNL Breast(s): Yes: WNL Musculoskeletal: Yes: WNL Extremities: Yes: WNL, Other (right plantar foot - wound. slough present.) Edema: No Peripheral Pulses WNL: Yes Integumentary: Yes: WNL Neurological: Yes: WNL, Alert, Oriented ...Motor Strength: WNL Psychiatric: Yes: WNL Labs: CBC, BMP 07/09/18 07:30 07/09/18 07:30 Problem List - Problems (1) Wound of right foot Assessment/Plan: Chronic wound right foot diabetic. Pt has palpable pulses. Cleared from a vascular standpoint for any podiatry intervention. Casimiro Fan DO Code(s): S91.301A - UNSPECIFIED OPEN WOUND, RIGHT FOOT, INITIAL ENCOUNTER (2) Diabetic peripheral vascular disease Code(s): E11.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
[2018-07-11] MEDS: METOPROLOL TARTRATE 25 MG TABLET (FP) PO SCH ×2 (10:42→21:38)
[2018-07-11] MEDS: ARIPiprazole 5 MG TABLET (FP) PO SCH (10:43)
[2018-07-11] MEDS: DOCUSATE SODIUM 100 MG CAPSULE (FP) PO SCH ×2 (10:43→21:38)
[2018-07-11] MEDS: HEPARIN NA (PORCINE) 5,000 UNITS/ML 1ML VIAL SQ SCH ×2 (10:43→21:39)
--- NOTE | 2018-07-11 12:16 | PN ---
Progress Note, Physician History of Present Illness: stable doing well no issues awaiting for final plan - Current Medication List Current Medications: Active Medications Acetaminophen (Tylenol -) 650 mg PO Q6H PRN PRN Reason: FEVER Aripiprazole (Abilify) 5 mg PO DAILY [facility] Last Admin: 07/11/18 10:43 Dose: 5 mg Collagenase (Santyl -) 1 applic TP DAILY [facility]; Protocol Last Admin: 07/10/18 09:26 Dose: 1 applic Docusate Sodium (Colace -) 100 mg PO BID [facility] Last Admin: 07/11/18 10:43 Dose: 100 mg Heparin Sodium (Porcine) (Heparin -) 5,000 unit SQ BID [facility] Last Admin: 07/11/18 10:43 Dose: 5,000 unit Piperacillin Sod/Tazobactam (Sod 3.375 gm/ Dextrose) 50 mls @ 100 mls/hr IVPB TID [facility]; Protocol Last Admin: 07/11/18 06:23 Dose: 100 mls/hr Metoprolol Tartrate (Lopressor -) 12.5 mg PO BID [facility] Last Admin: 07/11/18 10:42 Dose: 12.5 mg - Objective Vital Signs: Vital Signs Temperature 98.2 F 07/11/18 06:00 Pulse Rate 81 07/11/18 06:00 Respiratory Rate 20 07/11/18 06:00 Blood Pressure 124/69 07/11/18 06:00 O2 Sat by Pulse Oximetry (%) 100 07/10/18 21:00 Constitutional: Yes: No Distress, Calm Cardiovascular: Yes: Regular Rate and Rhythm Respiratory: Yes: Regular, CTA Bilaterally Gastrointestinal: Yes: Normal Bowel Sounds, Soft Musculoskeletal: Yes: WNL Extremities: Yes: Other Wound/Incision: Yes: Dressing Dry and Intact Neurological: Yes: Alert, Other Psychiatric: Yes: Alert, Other Labs: CBC, BMP 07/09/18 07:30 07/09/18 07:30 Assessment/Plan Problem List - Problems (1) HTN (hypertension) Code(s): I10 - ESSENTIAL (PRIMARY) HYPERTENSION (2) Wound of right foot Code(s): S91.301A - UNSPECIFIED OPEN WOUND, RIGHT FOOT, INITIAL ENCOUNTER (3) Diabetic peripheral vascular disease Code(s): E11.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 r/o osteo worried that is osteo plan continue abx await for mri podiatry on case rest as per the team
[2018-07-11] MEDS: COLLAGENASE CLOSTRIDIUM HIST. 30 GRAMS TUBE TP SCH (15:24)
--- NOTE | 2018-07-11 16:39 | PN ---
Progress Note (short form) - Note Progress Note: FUV right foot. vss, Tmax 98.4 +wound right foot, +drainage, +multiple bacteria r/o om Continue Santyl. Awaiting MRI. Vascular on case. ID on case. Will follow.
--- NOTE | 2018-07-11 19:15 | PN ---
Progress Note, Physician - Current Medication List Current Medications: Active Medications Acetaminophen (Tylenol -) 650 mg PO Q6H PRN PRN Reason: FEVER Aripiprazole (Abilify) 5 mg PO DAILY [facility] Last Admin: 07/11/18 10:43 Dose: 5 mg Collagenase (Santyl -) 1 applic TP DAILY [facility]; Protocol Last Admin: 07/11/18 15:24 Dose: 1 applic Docusate Sodium (Colace -) 100 mg PO BID [facility] Last Admin: 07/11/18 10:43 Dose: 100 mg Heparin Sodium (Porcine) (Heparin -) 5,000 unit SQ BID [facility] Last Admin: 07/11/18 10:43 Dose: 5,000 unit Piperacillin Sod/Tazobactam (Sod 3.375 gm/ Dextrose) 50 mls @ 100 mls/hr IVPB TID [facility]; Protocol Last Admin: 07/11/18 14:19 Dose: 100 mls/hr Metoprolol Tartrate (Lopressor -) 12.5 mg PO BID [facility] Last Admin: 07/11/18 10:42 Dose: 12.5 mg - Objective Vital Signs: Vital Signs Temperature 98.1 F 07/11/18 18:00 Pulse Rate 87 07/11/18 18:00 Respiratory Rate 18 07/11/18 18:00 Blood Pressure 123/69 07/11/18 18:00 O2 Sat by Pulse Oximetry (%) 100 07/11/18 09:00 Constitutional: Yes: No Distress HENT: Yes: Atraumatic Neck: Yes: Supple Cardiovascular: Yes: Regular Rate and Rhythm Respiratory: Yes: CTA Bilaterally Gastrointestinal: Yes: Normal Bowel Sounds Extremities: Yes: Other (r FOOT WOUND) Peripheral Pulses WNL: Yes Neurological: Yes: Alert, Oriented Labs: CBC, BMP 07/09/18 07:30 07/09/18 07:30 Problem List - Problems (1) HTN (hypertension) Assessment/Plan: on meds monitor Code(s): I10 - ESSENTIAL (PRIMARY) HYPERTENSION (2) Wound of right foot Assessment/Plan: iv abx podiatry/id consult Code(s): S91.301A - UNSPECIFIED OPEN WOUND, RIGHT FOOT, INITIAL ENCOUNTER (3) Diabetic peripheral vascular disease Code(s): E11.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 (4) Schizophrenia Assessment/Plan: ON MEDS STABLE Code(s): F20.9 - SCHIZOPHRENIA, UNSPECIFIED
[2018-07-12] MEDS ORDERED: PIPERACILLIN/TAZOBACTAM 3.375 GM VIAL IVPB ONE ×3 (05:47→20:38)
[2018-07-12] MEDS ORDERED: DEXTROSE 5%-WATER - 50 ML IVPB ONE ×3 (05:47→20:38)
[2018-07-12] MEDS: PIPERACILLIN/TAZOB 3.375 GM 3.375 GM in DEXTROSE 5%-WATER - 50 ML IVPB SCH ×3 (05:53→22:07)
[2018-07-12] MEDS ORDERED: PT OWN MED DRAWER 7, Y5N ONE (08:48)
[2018-07-12] MEDS: METOPROLOL TARTRATE 25 MG TABLET (FP) PO SCH ×2 (09:03→22:04)
[2018-07-12] MEDS: DOCUSATE SODIUM 100 MG CAPSULE (FP) PO SCH ×2 (09:03→22:05)
[2018-07-12] MEDS: HEPARIN NA (PORCINE) 5,000 UNITS/ML 1ML VIAL SQ SCH ×2 (09:06→22:06)
[2018-07-12] MEDS: COLLAGENASE CLOSTRIDIUM HIST. 30 GRAMS TUBE TP SCH (09:09)
[2018-07-12] MEDS: ARIPiprazole 5 MG TABLET (FP) PO SCH (09:09)
--- NOTE | 2018-07-12 12:15 | PN ---
Progress Note, Physician History of Present Illness: stable afebrile awaiting for the mri mentally patient not capable of giving consents cx reports noted - Current Medication List Current Medications: Active Medications Acetaminophen (Tylenol -) 650 mg PO Q6H PRN PRN Reason: FEVER Aripiprazole (Abilify) 5 mg PO DAILY [facility] Last Admin: 07/12/18 09:09 Dose: 5 mg Collagenase (Santyl -) 1 applic TP DAILY [facility]; Protocol Last Admin: 07/12/18 09:09 Dose: 1 applic Docusate Sodium (Colace -) 100 mg PO BID [facility] Last Admin: 07/12/18 09:03 Dose: 100 mg Heparin Sodium (Porcine) (Heparin -) 5,000 unit SQ BID [facility] Last Admin: 07/12/18 09:06 Dose: 5,000 unit Piperacillin Sod/Tazobactam (Sod 3.375 gm/ Dextrose) 50 mls @ 100 mls/hr IVPB TID [facility]; Protocol Last Admin: 07/12/18 05:53 Dose: 100 mls/hr Metoprolol Tartrate (Lopressor -) 12.5 mg PO BID [facility] Last Admin: 07/12/18 09:03 Dose: 12.5 mg - Objective Vital Signs: Vital Signs Temperature 98.4 F 07/12/18 06:00 Pulse Rate 80 07/12/18 06:00 Respiratory Rate 20 07/12/18 06:00 Blood Pressure 112/59 L 07/12/18 07:43 O2 Sat by Pulse Oximetry (%) 100 07/12/18 09:00 Constitutional: Yes: No Distress, Calm Cardiovascular: Yes: Regular Rate and Rhythm Respiratory: Yes: Regular, CTA Bilaterally Gastrointestinal: Yes: Normal Bowel Sounds, Soft Musculoskeletal: Yes: WNL Extremities: Yes: Other Wound/Incision: Yes: Dressing Dry and Intact Neurological: Yes: Alert, Other Psychiatric: Yes: Other Labs: CBC, BMP 07/09/18 07:30 07/09/18 07:30 Assessment/Plan Problem List - Problems (1) HTN (hypertension) Code(s): I10 - ESSENTIAL (PRIMARY) HYPERTENSION (2) Wound of right foot Code(s): S91.301A - UNSPECIFIED OPEN WOUND, RIGHT FOOT, INITIAL ENCOUNTER (3) Diabetic peripheral vascular disease Code(s): E11.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 r/o osteo worried that is osteo plan continue abx await for mri podiatry on case rest as per the team cx reports noted will add vanco once we have mri we will make the final decision wound care
[2018-07-12] MEDS: VANCOMYCIN HCL 1,250 MG in DEXTROSE 5%-WATER - 250 ML IVPB SCH (14:04)
--- NOTE | 2018-07-12 18:07 | PN ---
Progress Note, Physician History of Present Illness: stable - Current Medication List Current Medications: Active Medications Acetaminophen (Tylenol -) 650 mg PO Q6H PRN PRN Reason: FEVER Aripiprazole (Abilify) 5 mg PO DAILY [facility] Last Admin: 07/12/18 09:09 Dose: 5 mg Collagenase (Santyl -) 1 applic TP DAILY [facility]; Protocol Last Admin: 07/12/18 09:09 Dose: 1 applic Docusate Sodium (Colace -) 100 mg PO BID [facility] Last Admin: 07/12/18 09:03 Dose: 100 mg Heparin Sodium (Porcine) (Heparin -) 5,000 unit SQ BID [facility] Last Admin: 07/12/18 09:06 Dose: 5,000 unit Piperacillin Sod/Tazobactam (Sod 3.375 gm/ Dextrose) 50 mls @ 100 mls/hr IVPB TID [facility]; Protocol Last Admin: 07/12/18 13:12 Dose: 100 mls/hr Vancomycin HCl 1,250 mg/ (Dextrose) 250 mls @ 250 mls/2 hr IVPB Q24H [facility]; Protocol Last Admin: 07/12/18 14:04 Dose: 250 mls/2 hr Metoprolol Tartrate (Lopressor -) 12.5 mg PO BID [facility] Last Admin: 07/12/18 09:03 Dose: 12.5 mg - Objective Vital Signs: Vital Signs Temperature 98.7 F 07/12/18 15:00 Pulse Rate 71 07/12/18 15:00 Respiratory Rate 18 07/12/18 15:00 Blood Pressure 93/58 L 07/12/18 15:00 O2 Sat by Pulse Oximetry (%) 100 07/12/18 09:00 Constitutional: Yes: No Distress HENT: Yes: Atraumatic Neck: Yes: Supple Cardiovascular: Yes: Regular Rate and Rhythm Respiratory: Yes: CTA Bilaterally Gastrointestinal: Yes: Normal Bowel Sounds Extremities: Yes: Other (R foot infection) Neurological: Yes: Alert, Oriented Labs: CBC, BMP 07/09/18 07:30 07/09/18 07:30 Problem List - Problems (1) HTN (hypertension) Assessment/Plan: on meds monitor Code(s): I10 - ESSENTIAL (PRIMARY) HYPERTENSION (2) Wound of right foot Assessment/Plan: iv abx podiatry/id consult Code(s): S91.301A - UNSPECIFIED OPEN WOUND, RIGHT FOOT, INITIAL ENCOUNTER (3) Diabetic peripheral vascular disease Code(s): E11.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 (4) Schizophrenia Assessment/Plan: ON MEDS STABLE Code(s): F20.9 - SCHIZOPHRENIA, UNSPECIFIED
[2018-07-13] MEDS ORDERED: PIPERACILLIN/TAZOBACTAM 3.375 GM VIAL IVPB ONE ×3 (06:31→20:12)
[2018-07-13] MEDS ORDERED: DEXTROSE 5%-WATER - 50 ML IVPB ONE ×3 (06:31→20:12)
[2018-07-13] MEDS: PIPERACILLIN/TAZOB 3.375 GM 3.375 GM in DEXTROSE 5%-WATER - 50 ML IVPB SCH ×3 (07:25→21:54)
[2018-07-13] MEDS: HEPARIN NA (PORCINE) 5,000 UNITS/ML 1ML VIAL SQ SCH ×2 (09:50→21:54)
[2018-07-13] MEDS: DOCUSATE SODIUM 100 MG CAPSULE (FP) PO SCH ×2 (09:50→22:00)
[2018-07-13] MEDS: METOPROLOL TARTRATE 25 MG TABLET (FP) PO SCH ×2 (09:50→21:53)
[2018-07-13] MEDS: ARIPiprazole 5 MG TABLET (FP) PO SCH (09:50)
[2018-07-13] MEDS ORDERED: PT OWN MED DRAWER 7, Y5N ONE (13:42)
[2018-07-13] MEDS: COLLAGENASE CLOSTRIDIUM HIST. 30 GRAMS TUBE TP SCH (14:24)
[2018-07-13] MEDS: VANCOMYCIN HCL 1,250 MG in DEXTROSE 5%-WATER - 250 ML IVPB SCH (14:33)
--- NOTE | 2018-07-13 15:40 | PN ---
Progress Note, Physician History of Present Illness: stable - Current Medication List Current Medications: Active Medications Acetaminophen (Tylenol -) 650 mg PO Q6H PRN PRN Reason: FEVER Aripiprazole (Abilify) 5 mg PO DAILY [facility] Last Admin: 07/13/18 09:50 Dose: 5 mg Collagenase (Santyl -) 1 applic TP DAILY [facility]; Protocol Last Admin: 07/13/18 14:24 Dose: 1 applic Docusate Sodium (Colace -) 100 mg PO BID [facility] Last Admin: 07/13/18 09:50 Dose: 100 mg Heparin Sodium (Porcine) (Heparin -) 5,000 unit SQ BID [facility] Last Admin: 07/13/18 09:50 Dose: 5,000 unit Piperacillin Sod/Tazobactam (Sod 3.375 gm/ Dextrose) 50 mls @ 100 mls/hr IVPB TID [facility]; Protocol Last Admin: 07/13/18 14:21 Dose: 100 mls/hr Vancomycin HCl 1,250 mg/ (Dextrose) 250 mls @ 250 mls/2 hr IVPB Q24H [facility]; Protocol Last Admin: 07/13/18 14:33 Dose: 250 mls/2 hr Metoprolol Tartrate (Lopressor -) 12.5 mg PO BID [facility] Last Admin: 07/13/18 09:50 Dose: 12.5 mg - Objective Vital Signs: Vital Signs Temperature 98.3 F 07/13/18 14:03 Pulse Rate 82 07/13/18 14:03 Respiratory Rate 18 07/13/18 14:03 Blood Pressure 87/52 L 07/13/18 14:03 O2 Sat by Pulse Oximetry (%) 100 07/13/18 09:00 Constitutional: Yes: No Distress HENT: Yes: Atraumatic Neck: Yes: Supple Cardiovascular: Yes: Regular Rate and Rhythm Respiratory: Yes: CTA Bilaterally Gastrointestinal: Yes: Normal Bowel Sounds Extremities: Yes: Other (R foot cellulitis) Neurological: Yes: Alert, Oriented Labs: CBC, BMP 07/09/18 07:30 07/09/18 07:30 Problem List - Problems (1) HTN (hypertension) Assessment/Plan: on meds monitor Code(s): I10 - ESSENTIAL (PRIMARY) HYPERTENSION (2) Wound of right foot Assessment/Plan: iv abx podiatry/id consult Code(s): S91.301A - UNSPECIFIED OPEN WOUND, RIGHT FOOT, INITIAL ENCOUNTER (3) Diabetic peripheral vascular disease Code(s): E11.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 (4) Schizophrenia Assessment/Plan: ON MEDS STABLE Code(s): F20.9 - SCHIZOPHRENIA, UNSPECIFIED
--- NOTE | 2018-07-13 15:43 | PN ---
Progress Note, Physician History of Present Illness: Pt seen and examined, events noted, labs/imaging results noted. He is alert, fully responsive, without distress and remains afebrile. Has no specific complaints. - Current Medication List Current Medications: Active Medications Acetaminophen (Tylenol -) 650 mg PO Q6H PRN PRN Reason: FEVER Aripiprazole (Abilify) 5 mg PO DAILY [facility] Last Admin: 07/13/18 09:50 Dose: 5 mg Collagenase (Santyl -) 1 applic TP DAILY [facility]; Protocol Last Admin: 07/13/18 14:24 Dose: 1 applic Docusate Sodium (Colace -) 100 mg PO BID [facility] Last Admin: 07/13/18 09:50 Dose: 100 mg Heparin Sodium (Porcine) (Heparin -) 5,000 unit SQ BID [facility] Last Admin: 07/13/18 09:50 Dose: 5,000 unit Piperacillin Sod/Tazobactam (Sod 3.375 gm/ Dextrose) 50 mls @ 100 mls/hr IVPB TID [facility]; Protocol Last Admin: 07/13/18 14:21 Dose: 100 mls/hr Vancomycin HCl 1,250 mg/ (Dextrose) 250 mls @ 250 mls/2 hr IVPB Q24H [facility]; Protocol Last Admin: 07/13/18 14:33 Dose: 250 mls/2 hr Metoprolol Tartrate (Lopressor -) 12.5 mg PO BID [facility] Last Admin: 07/13/18 09:50 Dose: 12.5 mg - Objective Vital Signs: Vital Signs Temperature 98.3 F 07/13/18 14:03 Pulse Rate 82 07/13/18 14:03 Respiratory Rate 18 07/13/18 14:03 Blood Pressure 87/52 L 07/13/18 14:03 O2 Sat by Pulse Oximetry (%) 100 07/13/18 09:00 Constitutional: Yes: No Distress, Calm Cardiovascular: Yes: Regular Rate and Rhythm Respiratory: Yes: Regular Gastrointestinal: Yes: Normal Bowel Sounds, Soft Wound/Incision: Yes: Other (Rt foot plantar ulcer +slough) Labs: CBC, BMP 07/09/18 07:30 07/09/18 07:30 Assessment/Plan 67 y.o. male with DM, PVD, AFIB, HTN, Schizophrenia with Rt foot plantar ulcer Infected Rt foot plantar ulcer r/o OM Diabetic foot ulcer AFIB HTN Schizophrenia -- Wound cultures noted, continue current antibiotics -- awaiting MRI -- monitor renal function, check Vancomycin trough prior to 4th dose -- continue wound care
[2018-07-14] MEDS ORDERED: PIPERACILLIN/TAZOBACTAM 3.375 GM VIAL IVPB ONE ×3 (03:34→20:48)
[2018-07-14] MEDS ORDERED: DEXTROSE 5%-WATER - 50 ML IVPB ONE ×3 (03:34→20:49)
[2018-07-14] MEDS: PIPERACILLIN/TAZOB 3.375 GM 3.375 GM in DEXTROSE 5%-WATER - 50 ML IVPB SCH ×3 (05:55→21:58)
[2018-07-14 07:32] LABS: BASO % 0.8 % (0-2.0); EOS % 1.6 % (0-4.5); HEMATOCRIT 33.4 % (35.4-49); HEMOGLOBIN 11.5 GM/dL (11.7-16.9); LYMPH % 16.3 % (8-40); MCH 27.6 pg (25.7-33.7); MCHC 34.4 g/dl (32.0-35.9); MEAN CELL VOLUME 80.4 fl (80-96); MEAN PLT VOLUME 7.7 fl (7.5-11.1); MONO % 9.3 % (3.8-10.2); PLATELET COUNT 276 K/MM3 (134-434); RBC 4.15 M/mm3 (4.00-5.60); RDW 16.9 % (11.9-15.9); WHITE BLOOD COUNT 6.2 K/mm3 (4.0-10.0)
[2018-07-14 07:55] LABS: ALBUMIN 2.8 g/dl (3.4-5.0); ALK PHOS 86 U/L (45-117); ANION GAP 5 MMOL/L (8-16); BILIRUBIN,TOTAL 0.4 mg/dL (0.2-1); BLOOD UREA NITROGEN 20 mg/dL (7-18); CALCIUM 8.4 mg/dL (8.5-10.1); CHLORIDE 103 mmol/L (98-107); CO2 28 mmol/L (21-32); CREATININE 0.7 mg/dL (0.55-1.3); GLUCOSE,RANDOM 106 mg/dL (74-106); POTASSIUM 4.1 mmol/L (3.5-5.1); SGOT/AST 13 U/L (15-37); SGPT/ALT 15 U/L (13-61); SODIUM 136 mmol/L (136-145); TOT PROT 6.9 g/dl (6.4-8.2)
--- NOTE | 2018-07-14 08:52 | PN ---
Progress Note (short form) - Note Progress Note: FUV right foot. vss, Tmax 98.1 +wound right foot improved, -drainage,+granulation, wbc=6.2 r/o om grade 1 wound Continue Santyl. Awaiting MRI will reorder today. Vascular on case. ID on case. Will follow. MRI will determine planned care. No surgical intervention at this time.
[2018-07-14] MEDS: METOPROLOL TARTRATE 25 MG TABLET (FP) PO SCH ×2 (10:23→21:58)
[2018-07-14] MEDS: HEPARIN NA (PORCINE) 5,000 UNITS/ML 1ML VIAL SQ SCH ×2 (10:23→21:58)
[2018-07-14] MEDS: DOCUSATE SODIUM 100 MG CAPSULE (FP) PO SCH ×2 (10:23→21:58)
[2018-07-14] MEDS: ARIPiprazole 5 MG TABLET (FP) PO SCH (10:24)
[2018-07-14] MEDS: COLLAGENASE CLOSTRIDIUM HIST. 30 GRAMS TUBE TP SCH (10:24)
[2018-07-14] MEDS ORDERED: PT OWN MED DRAWER 7, Y5N ONE (13:42)
[2018-07-14] MEDS: VANCOMYCIN HCL 1,250 MG in DEXTROSE 5%-WATER - 250 ML IVPB SCH (13:57)
--- NOTE | 2018-07-14 14:54 | PN ---
Progress Note, Physician History of Present Illness: Pt feeling well. Has no new complaints. Tolerating antibiotics. - Current Medication List Current Medications: Active Medications Acetaminophen (Tylenol -) 650 mg PO Q6H PRN PRN Reason: FEVER Aripiprazole (Abilify) 5 mg PO DAILY [facility] Last Admin: 07/14/18 10:24 Dose: 5 mg Collagenase (Santyl -) 1 applic TP DAILY [facility]; Protocol Last Admin: 07/14/18 10:24 Dose: 1 applic Docusate Sodium (Colace -) 100 mg PO BID [facility] Last Admin: 07/14/18 10:23 Dose: 100 mg Heparin Sodium (Porcine) (Heparin -) 5,000 unit SQ BID [facility] Last Admin: 07/14/18 10:23 Dose: 5,000 unit Piperacillin Sod/Tazobactam (Sod 3.375 gm/ Dextrose) 50 mls @ 100 mls/hr IVPB TID [facility]; Protocol Last Admin: 07/14/18 14:02 Dose: 100 mls/hr Vancomycin HCl 1,250 mg/ (Dextrose) 250 mls @ 250 mls/2 hr IVPB Q24H [facility]; Protocol Last Admin: 07/14/18 13:57 Dose: 250 mls/2 hr Metoprolol Tartrate (Lopressor -) 12.5 mg PO BID [facility] Last Admin: 07/14/18 10:23 Dose: 12.5 mg - Objective Vital Signs: Vital Signs Temperature 98.4 F 07/14/18 12:50 Pulse Rate 76 07/14/18 12:50 Respiratory Rate 18 07/14/18 12:50 Blood Pressure 134/73 07/14/18 12:50 O2 Sat by Pulse Oximetry (%) 100 07/13/18 21:00 Constitutional: Yes: No Distress, Calm Cardiovascular: Yes: Regular Rate and Rhythm Respiratory: Yes: Regular Gastrointestinal: Yes: Normal Bowel Sounds, Soft Wound/Incision: Yes: Other (Rt plantar ulcer, no current purulence/tenderness) Labs: CBC, BMP 07/14/18 06:00 07/14/18 06:00 Microbiology 07/12/18 12:48 Blood - Peripheral Venous Blood Culture - Preliminary NO GROWTH OBTAINED AFTER 48 HOURS, INCUBATION TO CONTINUE FOR 3 DAYS. 07/12/18 12:42 Blood - Peripheral Venous Blood Culture - Preliminary NO GROWTH OBTAINED AFTER 48 HOURS, INCUBATION TO CONTINUE FOR 3 DAYS. 07/08/18 18:00 Blood - Peripheral Venous Blood Culture - Final NO GROWTH AFTER 5 DAYS INCUBATION 07/08/18 17:25 Foot - Right Plantar Gram Stain - Final 07/08/18 17:25 Foot - Right Plantar Wound Culture - Final Beta Hem Streptococcus Group G Mr S Aureus Alpha Hemolytic Streptococcus Escherichia Coli 07/08/18 18:00 Blood - Peripheral Venous Blood Culture - Final Bacillus Species, Not Antracis 07/08/18 18:13 Urine - Urine Clean Catch Urine Culture - Final NO GROWTH OBTAINED Assessment/Plan 67 y.o. male with DM, PVD, AFIB, HTN, Schizophrenia with Rt foot plantar ulcer Infected Rt foot plantar ulcer r/o OM Diabetic foot ulcer AFIB HTN Schizophrenia -- f/u MRI results, pending -- continue antibiotics for now -- monitor renal function, check Vancomycin trough prior to tomorrow's dose, repeat bmp -- continue wound care
--- NOTE | 2018-07-14 19:05 | PN ---
Progress Note, Physician History of Present Illness: No new complaints - Current Medication List Current Medications: Active Medications Acetaminophen (Tylenol -) 650 mg PO Q6H PRN PRN Reason: FEVER Aripiprazole (Abilify) 5 mg PO DAILY [facility] Last Admin: 07/14/18 10:24 Dose: 5 mg Collagenase (Santyl -) 1 applic TP DAILY [facility]; Protocol Last Admin: 07/14/18 10:24 Dose: 1 applic Docusate Sodium (Colace -) 100 mg PO BID [facility] Last Admin: 07/14/18 10:23 Dose: 100 mg Heparin Sodium (Porcine) (Heparin -) 5,000 unit SQ BID [facility] Last Admin: 07/14/18 10:23 Dose: 5,000 unit Piperacillin Sod/Tazobactam (Sod 3.375 gm/ Dextrose) 50 mls @ 100 mls/hr IVPB TID [facility]; Protocol Last Admin: 07/14/18 14:02 Dose: 100 mls/hr Vancomycin HCl 1,250 mg/ (Dextrose) 250 mls @ 250 mls/2 hr IVPB Q24H [facility]; Protocol Last Admin: 07/14/18 13:57 Dose: 250 mls/2 hr Metoprolol Tartrate (Lopressor -) 12.5 mg PO BID [facility] Last Admin: 07/14/18 10:23 Dose: 12.5 mg - Objective Vital Signs: Vital Signs Temperature 98.4 F 07/14/18 14:56 Pulse Rate 94 H 07/14/18 14:56 Respiratory Rate 16 07/14/18 14:56 Blood Pressure 99/66 07/14/18 14:56 O2 Sat by Pulse Oximetry (%) 100 07/13/18 21:00 Constitutional: Yes: Pallor HENT: Yes: WNL Neck: Yes: WNL, Supple Cardiovascular: Yes: WNL, Regular Rate and Rhythm Respiratory: Yes: WNL, Regular, CTA Bilaterally Gastrointestinal: Yes: WNL, Normal Bowel Sounds, Soft Extremities: Yes: Other (Rt foot plantar ulcer) Labs: CBC, BMP 07/14/18 06:00 07/14/18 06:00 Problem List - Problems (1) Diabetic foot ulcer Assessment/Plan: Cont IV vanco/zostn Wound Cultures (+) Beta hemolytic strept MR S Aureus E.Coli Repeat BC remain negative Await MRI to r/o osteo Code(s): E11.621 - TYPE 2 DIABETES MELLITUS WITH FOOT ULCER; L97.509 - NON- PRESSURE CHRONIC ULCER OTH PRT UNSP FOOT W UNSP SEVERITY (2) HTN (hypertension) Assessment/Plan: BP stable Cont metoprolol Code(s): I10 - ESSENTIAL (PRIMARY) HYPERTENSION
[2018-07-15] MEDS ORDERED: PIPERACILLIN/TAZOBACTAM 3.375 GM VIAL IVPB ONE ×3 (05:57→21:46)
[2018-07-15] MEDS ORDERED: DEXTROSE 5%-WATER - 50 ML IVPB ONE ×3 (05:58→21:46)
[2018-07-15] MEDS: PIPERACILLIN/TAZOB 3.375 GM 3.375 GM in DEXTROSE 5%-WATER - 50 ML IVPB SCH ×3 (06:12→21:50)
[2018-07-15] MEDS ORDERED: PT OWN MED DRAWER 7, Y5N ONE (10:06)
[2018-07-15] MEDS: METOPROLOL TARTRATE 25 MG TABLET (FP) PO SCH ×2 (10:16→21:50)
[2018-07-15] MEDS: DOCUSATE SODIUM 100 MG CAPSULE (FP) PO SCH ×2 (10:16→21:50)
[2018-07-15] MEDS: HEPARIN NA (PORCINE) 5,000 UNITS/ML 1ML VIAL SQ SCH (10:16)
[2018-07-15] MEDS: COLLAGENASE CLOSTRIDIUM HIST. 30 GRAMS TUBE TP SCH (10:20)
[2018-07-15] MEDS: ARIPiprazole 5 MG TABLET (FP) PO SCH (11:38)
--- NOTE | 2018-07-15 11:53 | PN ---
Progress Note, Physician History of Present Illness: stable no new issues - Current Medication List Current Medications: Active Medications Acetaminophen (Tylenol -) 650 mg PO Q6H PRN PRN Reason: FEVER Aripiprazole (Abilify) 5 mg PO DAILY [facility] Last Admin: 07/15/18 11:38 Dose: 5 mg Collagenase (Santyl -) 1 applic TP DAILY [facility]; Protocol Last Admin: 07/15/18 10:20 Dose: 1 applic Docusate Sodium (Colace -) 100 mg PO BID [facility] Last Admin: 07/15/18 10:16 Dose: 100 mg Heparin Sodium (Porcine) (Heparin -) 5,000 unit SQ BID [facility] Last Admin: 07/15/18 10:16 Dose: 5,000 unit Piperacillin Sod/Tazobactam (Sod 3.375 gm/ Dextrose) 50 mls @ 100 mls/hr IVPB TID [facility]; Protocol Last Admin: 07/15/18 06:12 Dose: 100 mls/hr Vancomycin HCl 1,250 mg/ (Dextrose) 250 mls @ 250 mls/2 hr IVPB Q24H [facility]; Protocol Last Admin: 07/14/18 13:57 Dose: 250 mls/2 hr Metoprolol Tartrate (Lopressor -) 12.5 mg PO BID [facility] Last Admin: 07/15/18 10:16 Dose: 12.5 mg - Objective Vital Signs: Vital Signs Temperature 98.5 F 07/14/18 17:21 Pulse Rate 71 07/14/18 17:21 Respiratory Rate 18 07/14/18 17:21 Blood Pressure 100/64 07/14/18 17:21 O2 Sat by Pulse Oximetry (%) 100 07/13/18 21:00 Constitutional: Yes: No Distress, Calm Cardiovascular: Yes: Regular Rate and Rhythm Respiratory: Yes: Regular, CTA Bilaterally Gastrointestinal: Yes: Normal Bowel Sounds, Soft Musculoskeletal: Yes: WNL Extremities: Yes: Other Wound/Incision: Yes: Other Neurological: Yes: Alert, Oriented Psychiatric: Yes: Alert Labs: CBC, BMP 07/14/18 06:00 07/14/18 06:00 Assessment/Plan Problem List - Problems (1) HTN (hypertension) Code(s): I10 - ESSENTIAL (PRIMARY) HYPERTENSION (2) Wound of right foot Code(s): S91.301A - UNSPECIFIED OPEN WOUND, RIGHT FOOT, INITIAL ENCOUNTER (3) Diabetic peripheral vascular disease Code(s): E11.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 osteo plan will d/w podiatry probably will need retirement abx wound care rest as per the team
[2018-07-15] MEDS: VANCOMYCIN HCL 1,250 MG in DEXTROSE 5%-WATER - 250 ML IVPB SCH (14:14)
[2018-07-15 14:34] VITALS: BMI 18.7
[2018-07-15] MEDS: VANCOMYCIN 1 GM in D5W (PRE-DOCKED) 1,000 MG/250 ML IVPB SCH (15:54)
--- NOTE | 2018-07-15 18:22 | PN ---
Progress Note, Physician History of Present Illness: stable - Current Medication List Current Medications: Active Medications Acetaminophen (Tylenol -) 650 mg PO Q6H PRN PRN Reason: FEVER Aripiprazole (Abilify) 5 mg PO DAILY [facility] Last Admin: 07/15/18 11:38 Dose: 5 mg Collagenase (Santyl -) 1 applic TP DAILY [facility]; Protocol Last Admin: 07/15/18 10:20 Dose: 1 applic Docusate Sodium (Colace -) 100 mg PO BID [facility] Last Admin: 07/15/18 10:16 Dose: 100 mg Heparin Sodium (Porcine) (Heparin -) 5,000 unit SQ BID [facility] Last Admin: 07/15/18 10:16 Dose: 5,000 unit Piperacillin Sod/Tazobactam (Sod 3.375 gm/ Dextrose) 50 mls @ 100 mls/hr IVPB TID [facility]; Protocol Last Admin: 07/15/18 14:29 Dose: 100 mls/hr Metoprolol Tartrate (Lopressor -) 12.5 mg PO BID [facility] Last Admin: 07/15/18 10:16 Dose: 12.5 mg Vancomycin HCl (Vancomycin (Pre-Docked)) 1,000 mg IVPB BID@0200,1400 [facility] Last Admin: 07/15/18 15:54 Dose: 1,000 mg - Objective Vital Signs: Vital Signs Temperature 98 F 07/15/18 15:00 Pulse Rate 84 07/15/18 15:00 Respiratory Rate 18 07/15/18 15:00 Blood Pressure 99/61 07/15/18 15:00 O2 Sat by Pulse Oximetry (%) 98 07/15/18 09:00 Constitutional: Yes: No Distress HENT: Yes: Atraumatic Neck: Yes: Supple Cardiovascular: Yes: Regular Rate and Rhythm Respiratory: Yes: CTA Bilaterally Gastrointestinal: Yes: Normal Bowel Sounds Extremities: Yes: Other (R foot infection) Neurological: Yes: Alert, Oriented Labs: CBC, BMP 07/14/18 06:00 07/14/18 06:00 Problem List - Problems (1) HTN (hypertension) Assessment/Plan: on meds monitor Code(s): I10 - ESSENTIAL (PRIMARY) HYPERTENSION (2) Wound of right foot Assessment/Plan: iv abx podiatry/id consult Code(s): S91.301A - UNSPECIFIED OPEN WOUND, RIGHT FOOT, INITIAL ENCOUNTER (3) Diabetic peripheral vascular disease Code(s): E11.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 (4) Schizophrenia Assessment/Plan: ON MEDS STABLE Code(s): F20.9 - SCHIZOPHRENIA, UNSPECIFIED (5) Osteomyelitis Code(s): M86.9 - OSTEOMYELITIS, UNSPECIFIED
[2018-07-16] MEDS: VANCOMYCIN 1 GM in D5W (PRE-DOCKED) 1,000 MG/250 ML IVPB SCH ×2 (01:29→13:33)
--- NOTE | 2018-07-16 07:49 | PN ---
Progress Note (short form) - Note Progress Note: FUV right foot. vss, Tmax 98.1 +wound right foot improved, -drainage,+granulation, wbc=6.2, MRI most likely osteo considering length of wound, om grade 2 wound Continue Santyl. Recommend HBO and IVABX. Will follow. No surgical intervention at this time. Needs proper orthoses and shoes after treatment to prevent re-ulceartion. Will discuss with Id.
[2018-07-16] MEDS: ARIPiprazole 5 MG TABLET (FP) PO SCH (09:39)
[2018-07-16] MEDS: DOCUSATE SODIUM 100 MG CAPSULE (FP) PO SCH ×2 (09:39→22:10)
[2018-07-16] MEDS: METOPROLOL TARTRATE 25 MG TABLET (FP) PO SCH ×2 (09:39→22:10)
[2018-07-16] MEDS: COLLAGENASE CLOSTRIDIUM HIST. 30 GRAMS TUBE TP SCH (09:40)
--- NOTE | 2018-07-16 13:22 | PN ---
Progress Note, Physician History of Present Illness: patient stable no new issues mri results noted - Current Medication List Current Medications: Active Medications Acetaminophen (Tylenol -) 650 mg PO Q6H PRN PRN Reason: FEVER Aripiprazole (Abilify) 5 mg PO DAILY [facility] Last Admin: 07/16/18 09:39 Dose: 5 mg Collagenase (Santyl -) 1 applic TP DAILY [facility]; Protocol Last Admin: 07/16/18 09:40 Dose: 1 applic Docusate Sodium (Colace -) 100 mg PO BID [facility] Last Admin: 07/16/18 09:39 Dose: 100 mg Metoprolol Tartrate (Lopressor -) 12.5 mg PO BID [facility] Last Admin: 07/16/18 09:39 Dose: 12.5 mg Vancomycin HCl (Vancomycin (Pre-Docked)) 1,000 mg IVPB BID@0200,1400 [facility] Last Admin: 07/16/18 01:29 Dose: 1,000 mg - Objective Vital Signs: Vital Signs Temperature 97.6 F 07/16/18 10:52 Pulse Rate 88 07/16/18 10:52 Respiratory Rate 18 07/16/18 10:52 Blood Pressure 100/52 L 07/16/18 10:52 O2 Sat by Pulse Oximetry (%) 98 07/16/18 09:00 Constitutional: Yes: No Distress, Calm Cardiovascular: Yes: Regular Rate and Rhythm Respiratory: Yes: Regular, CTA Bilaterally Gastrointestinal: Yes: Normal Bowel Sounds, Soft Musculoskeletal: Yes: WNL Extremities: Yes: Other Wound/Incision: Yes: Dressing Dry and Intact Neurological: Yes: Alert, Oriented Psychiatric: Yes: Alert, Oriented Labs: CBC, BMP 07/14/18 06:00 07/14/18 06:00 Assessment/Plan Problem List - Problems (1) HTN (hypertension) Code(s): I10 - ESSENTIAL (PRIMARY) HYPERTENSION (2) Wound of right foot Code(s): S91.301A - UNSPECIFIED OPEN WOUND, RIGHT FOOT, INITIAL ENCOUNTER (3) Diabetic peripheral vascular disease Code(s): E11.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
--- NOTE | 2018-07-16 17:13 | PN ---
Progress Note, Physician - Current Medication List Current Medications: Active Medications Acetaminophen (Tylenol -) 650 mg PO Q6H PRN PRN Reason: FEVER Aripiprazole (Abilify) 5 mg PO DAILY [facility] Last Admin: 07/16/18 09:39 Dose: 5 mg Collagenase (Santyl -) 1 applic TP DAILY [facility]; Protocol Last Admin: 07/16/18 09:40 Dose: 1 applic Docusate Sodium (Colace -) 100 mg PO BID [facility] Last Admin: 07/16/18 09:39 Dose: 100 mg Metoprolol Tartrate (Lopressor -) 12.5 mg PO BID [facility] Last Admin: 07/16/18 09:39 Dose: 12.5 mg Vancomycin HCl (Vancomycin (Pre-Docked)) 1,000 mg IVPB BID@0200,1400 [facility] Last Admin: 07/16/18 13:33 Dose: 1,000 mg - Objective Vital Signs: Vital Signs Temperature 98.0 F 07/16/18 14:05 Pulse Rate 92 H 07/16/18 14:05 Respiratory Rate 18 07/16/18 14:05 Blood Pressure 95/58 L 07/16/18 14:05 O2 Sat by Pulse Oximetry (%) 98 07/16/18 09:00 Constitutional: Yes: No Distress HENT: Yes: Atraumatic Neck: Yes: Supple Cardiovascular: Yes: Regular Rate and Rhythm Respiratory: Yes: CTA Bilaterally Gastrointestinal: Yes: Normal Bowel Sounds Extremities: Yes: Other (R foot infection) Neurological: Yes: Alert, Oriented Labs: CBC, BMP 07/14/18 06:00 07/14/18 06:00 Problem List - Problems (1) HTN (hypertension) Assessment/Plan: on meds monitor Code(s): I10 - ESSENTIAL (PRIMARY) HYPERTENSION (2) Wound of right foot Assessment/Plan: iv abx podiatry/id consult Code(s): S91.301A - UNSPECIFIED OPEN WOUND, RIGHT FOOT, INITIAL ENCOUNTER (3) Diabetic peripheral vascular disease Code(s): E11.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 (4) Schizophrenia Assessment/Plan: ON MEDS STABLE Code(s): F20.9 - SCHIZOPHRENIA, UNSPECIFIED (5) Osteomyelitis Code(s): M86.9 - OSTEOMYELITIS, UNSPECIFIED
[2018-07-17] MEDS: VANCOMYCIN 1 GM in D5W (PRE-DOCKED) 1,000 MG/250 ML IVPB SCH ×2 (01:49→15:34)
[2018-07-17] MEDS ORDERED: PT OWN MED DRAWER 7, Y5N ONE (09:44)
[2018-07-17] MEDS: COLLAGENASE CLOSTRIDIUM HIST. 30 GRAMS TUBE TP SCH (09:46)
[2018-07-17] MEDS: METOPROLOL TARTRATE 25 MG TABLET (FP) PO SCH ×2 (09:47→21:17)
[2018-07-17] MEDS: DOCUSATE SODIUM 100 MG CAPSULE (FP) PO SCH ×2 (09:47→21:17)
[2018-07-17] MEDS: ARIPiprazole 5 MG TABLET (FP) PO SCH (09:49)
--- NOTE | 2018-07-17 11:27 | PN ---
Progress Note, Physician History of Present Illness: patient stable no new issues - Current Medication List Current Medications: Active Medications Acetaminophen (Tylenol -) 650 mg PO Q6H PRN PRN Reason: FEVER Aripiprazole (Abilify) 5 mg PO DAILY [facility] Last Admin: 07/17/18 09:49 Dose: 5 mg Collagenase (Santyl -) 1 applic TP DAILY [facility]; Protocol Last Admin: 07/17/18 09:46 Dose: 1 applic Docusate Sodium (Colace -) 100 mg PO BID [facility] Last Admin: 07/17/18 09:47 Dose: 100 mg Metoprolol Tartrate (Lopressor -) 12.5 mg PO BID [facility] Last Admin: 07/17/18 09:47 Dose: 12.5 mg Vancomycin HCl (Vancomycin (Pre-Docked)) 1,000 mg IVPB BID@0200,1400 [facility] Last Admin: 07/17/18 01:49 Dose: 1,000 mg - Objective Vital Signs: Vital Signs Temperature 97.8 F 07/17/18 06:38 Pulse Rate 83 07/17/18 06:38 Respiratory Rate 20 07/17/18 06:38 Blood Pressure 107/70 07/17/18 06:38 O2 Sat by Pulse Oximetry (%) 98 07/16/18 21:00 Constitutional: Yes: No Distress, Calm Respiratory: Yes: Regular, CTA Bilaterally Gastrointestinal: Yes: Normal Bowel Sounds, Soft Musculoskeletal: Yes: Other Extremities: Yes: Other Neurological: Yes: Alert Psychiatric: Yes: Alert Labs: CBC, BMP 07/14/18 06:00 07/14/18 06:00 Assessment/Plan Problem List - Problems (1) HTN (hypertension) Code(s): I10 - ESSENTIAL (PRIMARY) HYPERTENSION (2) Wound of right foot Code(s): S91.301A - UNSPECIFIED OPEN WOUND, RIGHT FOOT, INITIAL ENCOUNTER (3) Diabetic peripheral vascular disease Code(s): E11.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 osteo plan podiatry note noted patient will need 6 weeks of abx patient needs to get ceftriaxone 2gm daily for 6 weeks and vanco 1500 mg daily for 6 weeks cbc bmp esr and crp to be monitored also vanco trough to be measured before the 4th dose
[2018-07-17] MEDS ORDERED: DEXTROSE 5%-WATER 100 ML IVPB ONE (12:43)
[2018-07-17] MEDS: CEFTRIAXONE 2 GM in DEXTROSE 5%-WATER 100 ML IVPB SCH (12:45)
--- NOTE | 2018-07-17 18:14 | PN ---
Progress Note, Physician History of Present Illness: stable - Current Medication List Current Medications: Active Medications Acetaminophen (Tylenol -) 650 mg PO Q6H PRN PRN Reason: FEVER Aripiprazole (Abilify) 5 mg PO DAILY [facility] Last Admin: 07/17/18 09:49 Dose: 5 mg Collagenase (Santyl -) 1 applic TP DAILY [facility]; Protocol Last Admin: 07/17/18 09:46 Dose: 1 applic Docusate Sodium (Colace -) 100 mg PO BID [facility] Last Admin: 07/17/18 09:47 Dose: 100 mg Ceftriaxone Sodium 2 gm/ (Dextrose) 100 mls @ 200 mls/hr IVPB DAILY [facility]; Protocol Last Admin: 07/17/18 12:45 Dose: 200 mls/hr Metoprolol Tartrate (Lopressor -) 12.5 mg PO BID [facility] Last Admin: 07/17/18 09:47 Dose: 12.5 mg Vancomycin HCl (Vancomycin (Pre-Docked)) 1,000 mg IVPB BID@0200,1400 [facility] Last Admin: 07/17/18 15:34 Dose: 1,000 mg - Objective Vital Signs: Vital Signs Temperature 97.7 F 07/17/18 16:50 Pulse Rate 97 H 07/17/18 16:50 Respiratory Rate 20 07/17/18 16:50 Blood Pressure 93/67 07/17/18 16:50 O2 Sat by Pulse Oximetry (%) 98 07/17/18 09:00 Constitutional: Yes: No Distress HENT: Yes: Atraumatic Neck: Yes: Supple Cardiovascular: Yes: Regular Rate and Rhythm Respiratory: Yes: CTA Bilaterally Gastrointestinal: Yes: Normal Bowel Sounds Extremities: Yes: Other ( r foot infection) Edema: No Peripheral Pulses WNL: Yes Neurological: Yes: Alert, Oriented Labs: CBC, BMP 07/14/18 06:00 07/14/18 06:00 Problem List - Problems (1) HTN (hypertension) Assessment/Plan: on meds monitor Code(s): I10 - ESSENTIAL (PRIMARY) HYPERTENSION (2) Wound of right foot Assessment/Plan: iv abx podiatry/id consult Code(s): S91.301A - UNSPECIFIED OPEN WOUND, RIGHT FOOT, INITIAL ENCOUNTER (3) Diabetic peripheral vascular disease Code(s): E11.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 (4) Schizophrenia Assessment/Plan: ON MEDS STABLE Code(s): F20.9 - SCHIZOPHRENIA, UNSPECIFIED (5) Osteomyelitis Assessment/Plan: on iv abx need 6 more weeks as per id picc line dc [facility] Code(s): M86.9 - OSTEOMYELITIS, UNSPECIFIED
--- NOTE | 2018-07-17 18:15 | DS ---
Physical Examination Vital Signs: Vital Signs Temperature 97.7 F 07/17/18 16:50 Pulse Rate 97 H 07/17/18 16:50 Respiratory Rate 20 07/17/18 16:50 Blood Pressure 93/67 07/17/18 16:50 O2 Sat by Pulse Oximetry (%) 98 07/17/18 09:00 Labs: CBC, BMP 07/14/18 06:00 07/14/18 06:00 Discharge Summary Reason For Visit: WOUND OF RIGHT FOOT Current Active Problems Afib (Acute) Diabetes (Acute) Diabetic foot ulcer (Acute) HTN (hypertension) (Acute) Schizophrenia (Acute) Wound of right foot (Acute) Condition: Stable - Instructions Referrals: John Dunn [Primary Care Provider] - Kal Zuñiga MD [Staff Physician] - - Home Medications Comprehensive Discharge Medication List: Ambulatory Orders Aripiprazole [Abilify] 5 mg PO DAILY 02/13/18 Digoxin [Lanoxin -] 0.125 mg PO DAILY 02/13/18 Docusate Sodium [Colace -] 100 mg PO BID 02/13/18 Metoprolol Tartrate [Lopressor -] 12.5 mg PO BID 02/13/18 Ceftriaxone [Rocephin -] 2 gm IVPB DAILY #30 vial 07/17/18 Vancomycin 1 Gram (Pre-Docked) [Vancomycin (Pre-Docked)] 1,000 mg IVPB BID@0200, 1400 #30 bag 07/17/18 IV ANTIBIOTICS FOR 6 MORE WEEKS
[2018-07-18] MEDS: VANCOMYCIN 1 GM in D5W (PRE-DOCKED) 1,000 MG/250 ML IVPB SCH ×2 (02:15→15:01)
--- NOTE | 2018-07-18 09:32 | PN ---
Progress Note (short form) - Note Progress Note: FUV right foot. vss, Tmax 98.1 +wound right foot improved, -drainage,+granulation, wbc=6.2, MRI most likely osteo considering length of wound, om grade 2 wound Continue Santyl dressing. Will follow. IVABX at home. HBO if approved.
[2018-07-18] MEDS: METOPROLOL TARTRATE 25 MG TABLET (FP) PO SCH (09:49)
[2018-07-18] MEDS ORDERED: DEXTROSE 5%-WATER 100 ML IVPB ONE (11:45)
[2018-07-18] MEDS ORDERED: PT OWN MED DRAWER 7, Y5N ONE (11:45)
[2018-07-18] MEDS: CEFTRIAXONE 2 GM in DEXTROSE 5%-WATER 100 ML IVPB SCH (11:58)
[2018-07-18] MEDS: ARIPiprazole 5 MG TABLET (FP) PO SCH (11:58)
[2018-07-18] MEDS: DOCUSATE SODIUM 100 MG CAPSULE (FP) PO SCH (11:58)
[2018-07-18] MEDS: COLLAGENASE CLOSTRIDIUM HIST. 30 GRAMS TUBE TP SCH (12:01)
--- NOTE | 2018-07-18 14:57 | PN ---
Progress Note, Physician History of Present Illness: patient stable no new issues - Current Medication List Current Medications: Active Medications Acetaminophen (Tylenol -) 650 mg PO Q6H PRN PRN Reason: FEVER Aripiprazole (Abilify) 5 mg PO DAILY [facility] Last Admin: 07/18/18 11:58 Dose: 5 mg Collagenase (Santyl -) 1 applic TP DAILY [facility]; Protocol Last Admin: 07/18/18 12:01 Dose: 1 applic Docusate Sodium (Colace -) 100 mg PO BID [facility] Last Admin: 07/18/18 11:58 Dose: 100 mg Ceftriaxone Sodium 2 gm/ (Dextrose) 100 mls @ 200 mls/hr IVPB DAILY [facility]; Protocol Last Admin: 07/18/18 11:58 Dose: 200 mls/hr Metoprolol Tartrate (Lopressor -) 12.5 mg PO BID [facility] Last Admin: 07/18/18 09:49 Dose: Not Given Vancomycin HCl (Vancomycin (Pre-Docked)) 1,000 mg IVPB BID@0200,1400 [facility] Last Admin: 07/18/18 02:15 Dose: 1,000 mg - Objective Vital Signs: Vital Signs Temperature 98.0 F 07/18/18 09:07 Pulse Rate 82 07/18/18 11:56 Respiratory Rate 20 07/18/18 11:56 Blood Pressure 115/68 07/18/18 11:56 O2 Sat by Pulse Oximetry (%) 98 07/17/18 21:00 Constitutional: Yes: No Distress, Calm Cardiovascular: Yes: Regular Rate and Rhythm Respiratory: Yes: Regular, CTA Bilaterally Gastrointestinal: Yes: Normal Bowel Sounds, Soft Musculoskeletal: Yes: WNL Extremities: Yes: Other Neurological: Yes: Alert, Oriented Psychiatric: Yes: Alert, Oriented Labs: CBC, BMP 07/14/18 06:00 07/14/18 06:00 Assessment/Plan Problem List - Problems (1) HTN (hypertension) Code(s): I10 - ESSENTIAL (PRIMARY) HYPERTENSION (2) Wound of right foot Code(s): S91.301A - UNSPECIFIED OPEN WOUND, RIGHT FOOT, INITIAL ENCOUNTER (3) Diabetic peripheral vascular disease Code(s): E11.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 osteo plan [id number] abx as planned duration given wound care rest as per the team
--- NOTE | 2018-07-18 16:12 | DS ---
Physical Examination Vital Signs: Vital Signs Temperature 98.1 F 07/18/18 15:07 Pulse Rate 81 07/18/18 15:07 Respiratory Rate 18 07/18/18 15:07 Blood Pressure 102/69 07/18/18 15:07 O2 Sat by Pulse Oximetry (%) 98 07/17/18 21:00 Constitutional: Yes: No Distress HENT: Yes: Atraumatic Neck: Yes: Supple Cardiovascular: Yes: Regular Rate and Rhythm Respiratory: Yes: CTA Bilaterally Gastrointestinal: Yes: Normal Bowel Sounds Extremities: Yes: Other (r FOOT CELLULITIS) Edema: Yes Edema: RLE: Trace Neurological: Yes: Alert, Oriented Labs: CBC, BMP 07/14/18 06:00 07/14/18 06:00 Discharge Summary Reason For Visit: WOUND OF RIGHT FOOT Current Active Problems Afib (Acute) Diabetes (Acute) Diabetic foot ulcer (Acute) HTN (hypertension) (Acute) Schizophrenia (Acute) Wound of right foot (Acute) Condition: Stable - Instructions Referrals: John Dunn [Primary Care Provider] - Kal Zuñiga MD [Staff Physician] - - Home Medications Comprehensive Discharge Medication List: Ambulatory Orders Aripiprazole [Abilify] 5 mg PO DAILY 02/13/18 Digoxin [Lanoxin -] 0.125 mg PO DAILY 02/13/18 Docusate Sodium [Colace -] 100 mg PO BID 02/13/18 Metoprolol Tartrate [Lopressor -] 12.5 mg PO BID 02/13/18 Ceftriaxone [Rocephin -] 2 gm IVPB DAILY #30 vial 07/17/18 Vancomycin 1 Gram (Pre-Docked) [Vancomycin (Pre-Docked)] 1,000 mg IVPB BID@0200, 1400 #30 bag 07/17/18
[2018-07-18 17:06] VITALS: BP 100/64; PULSE 77; TEMP 98.8
== END 2018-07-18 19:24 | DRG 344 ==
LOC: JER 16:24 → JERBED 19:04 → J8W 21:35
PROVIDERS: ADMIT Internal Medicine; ATTEND Internal Medicine
PROC: 02HV33Z Insertion of Infusion Device into Superior Vena Cava, Percutaneous Approach (ICD-10-PCS; principal; 2018-07-18)
PROC: B518ZZA Fluoroscopy of Superior Vena Cava, Guidance (ICD-10-PCS; 2018-07-18)
DX: E11.69 Type 2 diabetes mellitus with other specified complication (principal); E11.621 Type 2 diabetes mellitus with foot ulcer; L97.518 Non-pressure chronic ulcer of other part of right foot with other specified severity; M86.8X7 Other osteomyelitis, ankle and foot; E11.51 Type 2 diabetes mellitus with diabetic peripheral angiopathy without gangrene; F20.9 Schizophrenia, unspecified; S91.301A Unspecified open wound, right foot, initial encounter; I48.91 Unspecified atrial fibrillation; I10 Essential (primary) hypertension; B95.62 Methicillin resistant Staphylococcus aureus infection as the cause of diseases classified elsewhere; K21.9 Gastro-esophageal reflux disease without esophagitis; E11.42 Type 2 diabetes mellitus with diabetic polyneuropathy
CPT/HCPCS: 36415; 36569; 71046-TC-FY; 73630-TC-RT-FY; 73718-TC-RT; 77001-TC-FY; 80053; 81003; 82962; 83036; 83735; 84100; 85025; 85651; 86140; 87040; 87070; 87077; 87086; 87186; 87205; 99284-25; C1751; G0480; J1644

== ENCOUNTER 2018-12-09 13:52 | Emergency (ER) | payer OTHER ==
--- NOTE | 2018-12-09 14:41 | PDOC ---
History of Present Illness - General Stated Complaint: Edema Time Seen by Provider: 12/09/18 14:25 Past History - Past Medical History Allergies/Adverse Reactions: Allergies Allergy/AdvReac Type Severity Reaction Status Date / Time No Known Allergies Allergy Verified 12/09/18 15:17 Home Medications: Ambulatory Orders Acetaminophen [Tylenol] 650 mg PO Q6H PRN 09/05/18 Aripiprazole [Abilify -] 5 mg PO DAILY 09/05/18 Digoxin [Lanoxin -] 125 mcg PO DAILY 09/05/18 Docusate Sodium [Colace -] 200 mg PO DAILY 09/05/18 Metoprolol Tartrate 12.5 mg PO BID 09/05/18 Clindamycin [Cleocin -] 300 mg PO TID #21 capsule 12/09/18 Furosemide [Lasix] 20 mg PO DAILY 5 Days #5 tablet 12/09/18 Cardiac Disorders: Yes (Atial Fib) COPD: No CHF: Yes Diabetes: Yes GI Disorders: Yes (gerd) Disorders: No HTN: Yes Psychiatric Problems: Yes (schizophrenia) - Surgical History Orthopedic Surgery: Yes (L knee) - Immunization History Immunization Up to Date: Yes - Suicide/Smoking/Psychosocial Hx Smoking History: Never smoked Have you smoked in the past 12 months: No Hx Alcohol Use: No Drug/Substance Use Hx: No Substance Use Type: None ED Treatment Course - LABORATORY CBC & Chemistry Diagram: 12/09/18 14:57 12/09/18 14:57 Medical Decision Making - Medical Decision Making 12/09/18 14:41 68 year old man with a PMH of schizophrenia, a-fib, HTN, previous admission for L foot osteo who presents from [facility] (formerly [facility]] with 2-3 days of bilateral leg edema, arm edema and facial swelling. Per [place] the patient has been occasionally missing his hyperbaric appointments for a L foot ulcer. The patinet has not had any fevers, cough, congestion, chest pain, shortness of breath, n/v/d/c. He has no other compaints [facility] provides no further history. ROS GENERAL/CONSTITUTIONAL: No fever or chills. No weakness. HEAD, EYES, EARS, NOSE AND THROAT: No change in vision. No ear pain or discharge. No sore throat. CARDIOVASCULAR: No chest pain or shortness of breath RESPIRATORY: No cough, wheezing, or hemoptysis. GASTROINTESTINAL: No nausea, vomiting, diarrhea or constipation. GENITOURINARY: No dysuria, frequency, or change in urination. MUSCULOSKELETAL: See HPI. No neck or back pain. SKIN: No rash NEUROLOGIC: No headache, vertigo, loss of consciousness, or change in strength/ sensation. PE GENERAL: Awake, alert, and fully oriented, in no acute distress HEAD: No signs of trauma, normocephalic, atraumatic EYES: EOMI, sclera anicteric, conjunctiva clear ENT: oropharynx clear without exudates. Moist mucosa NECK: Normal ROM, supple LUNGS: No distress, speaks full sentences, inspiratory and expiratory wheeze throughout HEART: Regular rate and rhythm, normal S1 and S2, no murmurs, rubs or gallops, peripheral pulses normal and equal bilaterally. ABDOMEN: Soft, nontender, normoactive bowel sounds. No guarding, no rebound. No masses EXTREMITIES : + 2+ pitting edema, bilaterally w/ erythema and warmth on LLE > RLE NEUROLOGICAL: Cranial nerves II through XII grossly intact. Normal speech, no focal sensorimotor deficits MDM 68 year old man with a PMH of schizophrenia, a-fib, HTN, previous admission for L foot osteo who presents from [facility] (formerly [facility]] with 2-3 days of bilateral leg edema, arm edema and facial swelling. DDX including but not limited to: cellulitis vs sunburn chf exacerbation vs renal insuff W/U: - cbc, cmp, bnp, ekg ED Course: labs with elevated bnp treat with lasix and abx w/ outpt course d/c back to [facility] with pcp follow up plan discussed with [place] over the phone Graciela Malone, PGY2 Emergency Medicine *DC/Admit/Observation/Transfer Diagnosis at time of Disposition: Leg edema, Cellulitis - Discharge Dispostion Disposition: HOME Condition at time of disposition: Stable Decision to Admit order: No - Prescriptions Prescriptions: Clindamycin [Cleocin -] 300 mg PO TID #21 capsule Furosemide [Lasix] 20 mg PO DAILY 5 Days #5 tablet - Referrals Referrals: John Dunn [Primary Care Provider] - - Patient Instructions Printed Discharge Instructions: DI for Cellulitis -- Adult, DI for Peripheral Edema -- Bilateral Additional Instructions: You were seen in the ED for complaints of leg swelling and redness. In the ED you were evaluated with labwork Your results showed mild congestive heart failure. There does not appear to be an acute need for immediate hospitalization. You are advised to follow up with your Primary Care Physician within 1 week. You were given a prescription for lasix and antibiotics. Please take as indicated Return to the ED immediately if you experience worsening swelling, chest pain, shortness of breath or fever. - Post Discharge Activity
--- NOTE | 2018-12-09 15:05 | PDOC ---
Documentation entered by Josette Altamirano SCRIBE, acting as scribe for Rafat Carvajal MD. Rafat Carvajal MD: This documentation has been prepared by the Evelia olmedo Brenda, SCRIBE, under my direction and personally reviewed by me in its entirety. I confirm that the documentation accurately reflects all work, treatment, procedures, and medical decision making performed by me. Attending Attestation - Resident Resident Name: Graciela Malone - ED Attending Attestation I have performed the following: I have examined & evaluated the patient, The case was reviewed & discussed with the resident, I agree w/resident's findings & plan, Exceptions are as noted - HPI HPI: 12/09/18 15:44 The patient is a 68 year old male, with a significant PMH of schizophrenia, a- fib, HTN and previous admission for L foot osteo, currently in hyperbaric treatments Sunday through Sunday for ulcer on left big toe, who presents to the emergency department from [place] with 3 days of diffuse edema on legs, arms and face. 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 History was limited due to patient schizophrenia. Allergies: NKA Past surgical history: Left knee orthopedic surgery Social history: Denies any tobacco use, etoh use or illicit drug use. PCP: John Dunn - Physicial Exam PE: 12/09/18 16:09 Vitals: Triage vital signs reviewed General Appearance: No acute distress, well nourished, well developed Head: Atraumatic Neck: Supple; No nuchal rigidity Chest Wall: Nontender Cardiac: Regular rate and rhythm, no murmurs, no rubs, no gallops Lungs: Clear to auscultation bilateral, good air movement bilaterally Abdomen: Soft, nondistended, normal bowel sounds, nontender to palpation Extremities: Full range of motion to all extremities, no cyanosis, clubbing, or edema Skin: (+) Mild redness right from sock line to right below pant line. Warm and dry, no rashes or lesions, no rash, no petechiae Neuro: AOX3; Cranial Nerves 2-12 grossly intact, Strength intact to all extremities, Sensation intact to all extremities, gait normal Psych: Normal mood, normal affect - Medical Decision Making 12/09/18 16:40 68 years old presents for evaluation of lower leg redness. Redness is from below patient's shorts to right at his sock line likely reactive to some exposure possible cellulitis. Patient also with mild edema and elevated BNP Case discussed with patient's primary care provider we'll discharge home with 5 day course in the 5 day course of Lasix we'll have labs rechecked in 5 days Find his, need follow-up and strict return instructions discussed patient.
[2018-12-09 15:17] VITALS: BMI 26.9
[2018-12-09] MEDS ORDERED: CLINDAMYCIN 600MG PREMIX IVPB 600 MG/50 ML BAG IVPB ONE ×2 (15:22→15:27)
[2018-12-09 15:28] LABS: BASO % 0.6 % (0-2.0); EOS % 2.5 % (0-4.5); HEMATOCRIT 27.4 % (35.4-49); HEMOGLOBIN 8.5 GM/dL (11.7-16.9); LYMPH % 10.3 % (8-40); MCH 23.7 pg (25.7-33.7); MCHC 31.1 g/dl (32.0-35.9); MEAN CELL VOLUME 76.3 fl (80-96); MEAN PLT VOLUME 7.6 fl (7.5-11.1); MONO % 10.6 % (3.8-10.2); RBC 3.59 M/mm3 (4.00-5.60); RDW 18.7 % (11.9-15.9); WHITE BLOOD COUNT 7.5 K/mm3 (4.0-10.0)
[2018-12-09 16:07] LABS: ALBUMIN 2.9 g/dl (3.4-5.0); BILIRUBIN,TOTAL 0.4 mg/dL (0.2-1); BLOOD UREA NITROGEN 12.8 mg/dL (7-18); CALCIUM 7.9 mg/dL (8.5-10.1); CREATININE 0.8 mg/dL (0.55-1.3); N-TERMINAL BNP 1249.8 pg/ml (5-125); POTASSIUM 4.4 mmol/L (3.5-5.1); TOT PROT 6.2 g/dl (6.4-8.2)
[2018-12-09 16:22] LABS: URINE APPEARANCE CLEAR; URINE BILIRUBIN NEGATIVE (NEGATIVE); URINE COLOR DK YELLOW; URINE GLUCOSE (UA) NEGATIVE (NEGATIVE); URINE KETONE TRACE (NEGATIVE); URINE LEUK ESTERASE NEGATIVE (NEGATIVE); URINE NITRITE NEGATIVE (NEGATIVE); URINE PROTEIN NEGATIVE (NEGATIVE)
[2018-12-09] MEDS ORDERED: FUROSEMIDE 40 MG/4 ML INJECTABLE VIAL IVPUSH ONE (16:39)
[2018-12-09] MEDS ORDERED: FUROSEMIDE 20 MG TABLET (FP) PO ONE (16:40)
[2018-12-09] MEDS ORDERED: FUROSEMIDE 40 MG TABLET (FP) ONE (17:12)
[2018-12-09 17:38] VITALS: BP 121/64; PULSE 82; TEMP 97.3
[2018-12-09 18:22] LABS: PLATELET ESTIMATE NORMAL
[2018-12-09 18:46] LABS: PLATELET COUNT 261 K/MM3 (134-434)
--- NOTE | 2018-12-10 11:25 | EKG ---
Test Reason : Blood Pressure : / mmHG Vent. Rate : 090 BPM Atrial Rate : 100 BPM P-R Int : 000 ms QRS Dur : 098 ms QT Int : 366 ms P-R-T Axes : 000 082 073 degrees QTc Int : 447 ms ATRIAL FIBRILLATION ABNORMAL ECG WHEN COMPARED WITH ECG OF 19-FEB-2018 15:28, T WAVE AMPLITUDE HAS DECREASED IN LATERAL LEADS QT HAS LENGTHENED Confirmed by Shiv Valencia MD ([id number]) on 12/10/2018 11:25:38 AM Referred By: Confirmed By:Shiv Valencia MD
== END 2018-12-09 20:13 | disposition home or self-care (01) ==
LOC: JER 13:52
DX: M79.89 Other specified soft tissue disorders (principal); L03.90 Cellulitis, unspecified; F20.9 Schizophrenia, unspecified; I48.91 Unspecified atrial fibrillation; I10 Essential (primary) hypertension
CPT/HCPCS: 36415; 80053; 80162; 81003; 83880; 85025; 93005; 93010; 99285-25

== ENCOUNTER 2018-12-13 08:34 | Emergency (ER) | payer OTHER ==
[2018-12-13 08:46] VITALS: TEMP 98; BMI 25.6
--- NOTE | 2018-12-13 08:49 | PDOC ---
History of Present Illness - General Chief Complaint: Edema Stated Complaint: SWELLING OF LEGS Time Seen by Provider: 12/13/18 08:48 History Source: Patient - History of Present Illness Initial Comments: 12/13/18 10:10 68 yo M pmh HTN, DM, Afib, and schizophrenia presenting from [facility] with complaint of swelling of the face of which patient states has been occurring for 7-9 days. Pt denies any other complaints. Limited history due to schizophrenia. Denies f/c, n/v/d, abd pain, chest pain, palpitations, sob, headache, changes in vision, numbness/tingling, dysuria. Has good PO intake. Pt states allergy to thorazine Past History - Past Medical History Allergies/Adverse Reactions: Allergies Allergy/AdvReac Type Severity Reaction Status Date / Time No Known Allergies Allergy Verified 12/09/18 15:17 Home Medications: Ambulatory Orders Acetaminophen [Tylenol] 650 mg PO Q6H PRN 09/05/18 Aripiprazole [Abilify -] 5 mg PO DAILY 09/05/18 Digoxin [Lanoxin -] 125 mcg PO DAILY 09/05/18 Docusate Sodium [Colace -] 200 mg PO DAILY 09/05/18 Metoprolol Tartrate 12.5 mg PO BID 09/05/18 Clindamycin [Cleocin -] 300 mg PO TID #21 capsule 12/09/18 Furosemide [Lasix] 20 mg PO DAILY 5 Days #5 tablet 12/09/18 Cardiac Disorders: Yes (Atial Fib) COPD: No CHF: Yes Diabetes: Yes GI Disorders: Yes (gerd) Disorders: No HTN: Yes Psychiatric Problems: Yes (schizophrenia) - Surgical History Orthopedic Surgery: Yes (L knee) - Immunization History Immunization Up to Date: Yes - Suicide/Smoking/Psychosocial Hx Smoking History: Unknown if ever smoked Have you smoked in the past 12 months: No Hx Alcohol Use: No Drug/Substance Use Hx: No Substance Use Type: None Review of Systems - Review of Systems Able to Perform ROS?: Yes Comments:: 12/13/18 10:10 Denies f/c, n/v/d, abd pain, chest pain, palpitations, sob, headache, changes in vision, numbness/tingling, dysuria. Has good PO intake. *Physical Exam - Vital Signs Last Vital Signs Temp Pulse Resp BP Pulse Ox 98.0 F 104 H 18 117/72 100 12/13/18 08:42 12/13/18 08:42 12/13/18 08:42 12/13/18 08:42 12/13/18 08:42 - Physical Exam Comments: 12/13/18 10:10 GEN: Well appearing, NAD, comfortable. AAOx3. Tangential speech. HEENT: NC/AT, EOMI, PERRLA, CN II-XII intact. Moist mucous membranes. No swelling of the face appreciated. NEURO: 5/5 strength UE and LE b/l. Sensation equal and intact throughout. CV: S1/S2, RRR, no m/r/g LUNG: CTAB, no wheezes, crackles, rales, rhonchi. GI: soft, ndnt, +BS, no guarding, no rebound. Neg CVAT b/l. No masses. No edema. EXTREMITIES: 1+ pitting edema up to the knees b/l w/ L > R mildly. No calf pain. Neg homman sign. there is nonpitting edema of the b/l hands and forearms. Healing ulcer on plantar aspect of left great toe w/o purulence, discharge, or bleeding. ED Treatment Course - LABORATORY CBC & Chemistry Diagram: 12/13/18 10:05 12/13/18 10:05 Medical Decision Making - Medical Decision Making 12/13/18 09:35 68 yo M presenting from assisted living for swelling. Patient provides limited history but denies other complaints. Exam significant fo tachycardia on triage, b/l pitting edema of the legs to the knees w/ L mildly > R, and nonpitting edema of the b/l hands and forearms. Pt has no SOB or respiratory findings. Low suspicion for DVT but given possible poor f/u will r/o DVT w/ LLE Duplex Will check labs for possible increasing anemia and worsening hypoalbuminemia. Patient was here on the 12/09/18 for similar reasons, found to have elevated BNP discharged on lasix, will trend labs. - CBC, CMP - LLE Duplex - likely dispo back to assisted living 12/13/18 11:52 labs reassuring, largely unchanged from previous tachycardia resolved dc home *DC/Admit/Observation/Transfer Diagnosis at time of Disposition: Leg edema - Discharge Dispostion Disposition: HOME - Referrals Referrals: John Dunn [Primary Care Provider] - - Patient Instructions Printed Discharge Instructions: DI for Peripheral Edema -- Bilateral Additional Instructions: You were seen and treated in the Emergency Department for swelling. We did not find any blood clots in the legs and your labwork was reassuring. Continue to take your home medications as prescribed. Increase the amount of protein you have in your diet. Follow up with your Primary Care Doctor regarding this ED visit in the next 1-4 days. Return to the Emergency Department if you experience any of the following: - chest pain or shortness of breath - high fever - redness or streaking of the arms or legs - ANYTHING that concerns you - Post Discharge Activity
--- NOTE | 2018-12-13 09:57 | PDOC ---
Documentation entered by Bernard Goldberg SCRIBE, acting as scribe for Carlos Puente MD. Carlos Puente MD: This documentation has been prepared by the gurpreeteAshlyn Elijah, SCRIBE, under my direction and personally reviewed by me in its entirety. I confirm that the documentation accurately reflects all work, treatment, procedures, and medical decision making performed by me. Attending Attestation - Resident Resident Name: Mark Monteiro - ED Attending Attestation I have performed the following: I have examined & evaluated the patient, The case was reviewed & discussed with the resident, I agree w/resident's findings & plan - HPI HPI: 12/13/18 09:47 Patient is a 68 year old male with a significant past medical history of HTN, Afib, DM, and schizophrenia who reports to the ED from [facility] with swelling in the face and legs lasting for about x9 days. Patient notes that over the course of the last x9 days the swelling has remained unchanged and has not been painful or exhibiting redness. Patient notes that this is has never happened to him in the past. Denies Fever, chills, nausea, vomiting, Chest Pain , SOB, CACERES bloody/darkened stool. Allergies: NKA PCP: Dr. Dunn - Physicial Exam PE: 12/13/18 09:51 GENERAL: The patient is awake, alert, and fully oriented, Nontoxic - in no acute distress. HEAD: Normocephalic, atraumatic. EYES: extraocular movements intact, sclera anicteric, conjunctiva clear. ENT: Normal voice, Moist mucous membranes. NECK: Normal range of motion, supple without lymphadenopathy or JVD, LUNGS: Breath sounds equal, clear to auscultation bilaterally. No wheezes, no crackles, no rales. HEART: Regular rate and rhythm, normal S1 and S2 without murmur, rub or gallop. ABDOMEN: Soft, nontender, normoactive bowel sounds. No guarding, no rebound. No masses. EXTREMITIES: Normal range of motion, _+1 pitting edema to the forearms b/l, +2 pitting edema to b/l LE to shins (L slightly larger than R) NEUROLOGICAL: No facial asymmetry, Normal speech, normal gait. moving all 4 extremiities spontaneously and symmetrically PSYCH: Normal mood, normal affect. SKIN: Warm, Dry, normal turgor, no rashes or lesions noted. wound on plantar aspect of L great toe thta is clean, non erythemsous, no discharge, - Medical Decision Making 12/13/18 09:05 68y M hx of htn, dm, afib, schizophrenia presents from [place] for evaluation of persistent facial and leg swelling for the past 9 days. Denies any other complaints including cp, sob, caceres, fever/chills, increased leg swelling, on exam pt in no dsitress edema noted to extremities will ck lbas to r/o metabolic derangement, no clinical signs or sx of chf duplex to r/o dvt as L is slightly larger than R LE 12/13/18 11:07 pts labs reviewed - approx baseline dvt study negative will dc the pt back home to fu with PMD will have pt ingestion more protein - possibly edema due to hypoalbuinemia
[2018-12-13 10:24] LABS: HEMATOCRIT 28.1 % (35.4-49); HEMOGLOBIN 8.9 GM/dL (11.7-16.9); LYMPH % 8.7 % (8-40); MCH 23.3 pg (25.7-33.7); MCHC 31.6 g/dl (32.0-35.9); MEAN CELL VOLUME 73.6 fl (80-96); MEAN PLT VOLUME 7.5 fl (7.5-11.1); MONO % 10.3 % (3.8-10.2); PLATELET COUNT 203 K/MM3 (134-434); RBC 3.81 M/mm3 (4.00-5.60); RDW 18.4 % (11.9-15.9); WHITE BLOOD COUNT 7.2 K/mm3 (4.0-10.0)
[2018-12-13 10:53] LABS: BILIRUBIN,TOTAL 0.5 mg/dL (0.2-1); BLOOD UREA NITROGEN 11.3 mg/dL (7-18); CALCIUM 8.3 mg/dL (8.5-10.1); CREATININE 0.8 mg/dL (0.55-1.3); POTASSIUM 4.2 mmol/L (3.5-5.1); TOT PROT 6.8 g/dl (6.4-8.2)
[2018-12-13 16:41] VITALS: BP 130/81; PULSE 76
== END 2018-12-13 16:20 | disposition home or self-care (01) ==
LOC: JER 08:34
DX: M79.89 Other specified soft tissue disorders (principal); F20.9 Schizophrenia, unspecified; I50.9 Heart failure, unspecified; I10 Essential (primary) hypertension; K21.9 Gastro-esophageal reflux disease without esophagitis; E11.9 Type 2 diabetes mellitus without complications; I48.91 Unspecified atrial fibrillation
CPT/HCPCS: 36415; 80053; 85025; 93971-TC; 99285-25

== ENCOUNTER 2018-12-23 13:29 | Emergency (ER) | payer OTHER ==
[2018-12-23 13:39] VITALS: BMI 25.0
--- NOTE | 2018-12-23 13:40 | PDOC ---
Rapid Medical Evaluation Chief Complaint: Altered Mental Status Time Seen by Provider: 12/23/18 13:38 Medical Evaluation: Allergies Allergy/AdvReac Type Severity Reaction Status Date / Time No Known Allergies Allergy Verified 12/09/18 15:17 12/23/18 13:38 Patient had brief in-person examination in triage cc:unsteady gait, being treated for left leg osteomyelitis in hyperbaric HPI: alert and oriented x 3, with some confusion, unable to give history even and unlabored breathing wheelchair bound orders: labs This patient will proceed to ed for further evaluation Discharge Disposition - Diagnosis Unsteady gait - Referrals - Patient Instructions - Post Discharge Activity
[2018-12-23 14:45] LABS: BASO % 0.5 % (0-2.0); EOS % 1.7 % (0-4.5); HEMATOCRIT 26.2 % (35.4-49); HEMOGLOBIN 8.3 GM/dL (11.7-16.9); LYMPH % 7.3 % (8-40); MCH 22.8 pg (25.7-33.7); MCHC 31.6 g/dl (32.0-35.9); MEAN CELL VOLUME 72.3 fl (80-96); MEAN PLT VOLUME 7.9 fl (7.5-11.1); MONO % 11.9 % (3.8-10.2); NEUT % 78.6 % (42.8-82.8); PLATELET COUNT 215 K/MM3 (134-434); RBC 3.63 M/mm3 (4.00-5.60); RDW 18.9 % (11.9-15.9); WHITE BLOOD COUNT 7.5 K/mm3 (4.0-10.0)
[2018-12-23 15:01] LABS: INR 1.09 (0.83-1.09); PROTHROMBIN TIME (PATIENT) 12.9 SEC (9.7-13.0)
[2018-12-23 15:04] LABS: ACTIVATED PTT 30.3 SECONDS (25.2-36.5)
--- NOTE | 2018-12-23 15:18 | PDOC ---
History of Present Illness - General Chief Complaint: Altered Mental Status Stated Complaint: SENT BY PCP Time Seen by Provider: 12/23/18 13:38 - History of Present Illness Initial Comments: 12/23/18 15:15 68yo M hx HTN, DM, Afib, schizohrenia, and L leg osteomyelitis being treated in hyperbarics presents from hyperbarics due to limping. Per charge nurse, hyperbarics stated that the RLE was red and warm and pt was limping so they called [facility] who stated they were unaware of a limp. Pt denies any complaints and does not know why he's here. Pt is a poor historian 2/2 schizophrenia. Pt states his legs look the same as before and the swelling is normal for them. Pt states he has an ulcer on the L foot, chronic. Pt states his limping is due to that. Pt states he's walking as he normally does. Denies F /C, N/V, CP, SOB, abdominal pain, redness/warmth to RLE, new swelling, calf tenderness, dizziness, headache. Past History - Past Medical History Allergies/Adverse Reactions: Allergies Allergy/AdvReac Type Severity Reaction Status Date / Time torazine Allergy Uncoded 12/23/18 13:40 Home Medications: Ambulatory Orders Acetaminophen [Tylenol] 650 mg PO Q6H PRN 09/05/18 Aripiprazole [Abilify -] 5 mg PO DAILY 09/05/18 Digoxin [Lanoxin -] 125 mcg PO DAILY 09/05/18 Docusate Sodium [Colace -] 200 mg PO DAILY 09/05/18 Metoprolol Tartrate 12.5 mg PO BID 09/05/18 Clindamycin [Cleocin -] 300 mg PO TID #21 capsule 12/09/18 Furosemide [Lasix] 20 mg PO DAILY 5 Days #5 tablet 12/09/18 Cardiac Disorders: Yes (Atial Fib) COPD: No CHF: Yes Diabetes: Yes GI Disorders: Yes (gerd) Disorders: No HTN: Yes Psychiatric Problems: Yes (schizophrenia, dementia) Other medical history: osteomylitis left leg, poor hystorian - Surgical History Orthopedic Surgery: Yes (L knee) - Immunization History Immunization Up to Date: Yes - Suicide/Smoking/Psychosocial Hx Smoking History: Current every day smoker Have you smoked in the past 12 months: No Number of Cigarettes Smoked Daily: 3 Information on smoking cessation initiated: No Hx Alcohol Use: No Drug/Substance Use Hx: No Substance Use Type: None Review of Systems - Review of Systems Comments:: 12/23/18 15:12 Constitutional: Negative for chills, fever, fatigue. HENT: Negative for sore throat, rhinorrhea, congestion. Eyes: Negative for visual disturbance. Respiratory: Negative for shortness of breath, cough, and wheezing. Cardiovascular: Negative for chest pain, palpitations, and leg swelling. Gastrointestinal: Negative for abdominal pain, blood in stool, constipation, diarrhea, nausea, and vomiting. Genitourinary: Negative for dysuria, flank pain, and hematuria. Musculoskeletal: Negative for myalgias, back pain, and neck pain. Skin: Positive for chronic ulcer L foot (being treated by hyperbarics). Negative for rash. Neurological: Negative for light-headedness, dizziness, syncope, weakness, numbness and headaches. Psychiatric/Behavioral: Positive for schizophrenia. *Physical Exam - Vital Signs Last Vital Signs Temp Pulse Resp BP Pulse Ox 97.6 F 98 H 19 122/63 99 12/23/18 13:36 12/23/18 13:36 12/23/18 13:36 12/23/18 13:36 12/23/18 13:36 - Physical Exam Comments: 12/23/18 15:13 Gen: Alert, NAD, comfortable-appearing. HEENT: PERRL, EOMI, MMM, NCAT. No conjunctival pallor. Sclera are non-icteric. CV: Regular rate and rhythm. No murmurs, rubs, or gallops. PULM: No resp distress. CTAB, no wheezes, rales, or rhonchi. ABD: soft, NT/ND, no rebound tenderness or guarding, no CVA tenderness. BACK: No TTP of c/t/l-spine. No step-offs or deformities. MSK: No bony deformities. 2+ pulses in all extremities. NEURO: AAOx3. PERRL. No gross CN deficits. Strength and sensation grossly intact throughout. Limps while walks but steady gait. EXTREMITIES: No cyanosis. No clubbing. No calf tenderness. 2+ pitting edema b/l to knees, L>R. Limping 2/2 chronic LLE pain. No erythema or warmth of RLE. Sensation, strength, and ROM intact in LEs. Gauze wrapping L toes (being treated by hyperbarics, wrapped today). PSYCH: Normal mood and thought pattern. SKIN: Warm and dry. Normal capillary refill. No jaundice. Heart Score/ECG Review - ECG Impressions Comment:: 12/23/18 19:37 Afib, 88bpm, no STEs, small amplitude T waves in aVL and V2. Unchanged from EKG 08/08/18. ED Treatment Course - LABORATORY CBC & Chemistry Diagram: 12/23/18 14:40 12/23/18 17:40 - ADDITIONAL ORDERS Additional order review: Laboratory Results 12/23/18 12/23/18 12/23/18 14:40 14:40 14:40 WBC 7.5 RBC 3.63 L Hgb 8.3 L Hct 26.2 L MCV 72.3 L MCH 22.8 L MCHC 31.6 L RDW 18.9 H Plt Count 215 MPV 7.9 Absolute Neuts (auto) 5.9 Neutrophils % 78.6 Lymphocytes % 7.3 L Monocytes % 11.9 H Eosinophils % 1.7 Basophils % 0.5 Nucleated RBC % 0 PT with INR Cancelled 12.90 INR Cancelled 1.09 PTT (Actin FS) 30.3 12/23/18 14:40 RBC 3.63 L MCV 72.3 L MCHC 31.6 L RDW 18.9 H MPV 7.9 Neutrophils % 78.6 Lymphocytes % 7.3 L Monocytes % 11.9 H Eosinophils % 1.7 Basophils % 0.5 Medical Decision Making - Medical Decision Making 12/23/18 15:19 68yo M hx HTN, DM, Afib, schizohrenia, and L leg osteomyelitis being treated in hyperbarics presents from hyperbarics due to limping. Per charge nurse, hyperbarics stated that the RLE was red and warm and pt was limping so they called [facility] who stated they were unaware of a limp. Pt denies any complaints and does not know why he's here. Pt is a poor historian 2/2 schizophrenia. Pt states his legs look the same as before and the swelling is normal for them. Pt states he has an ulcer on the L foot, chronic. Pt states his limping is due to that. Pt states he's walking as he normally does. Denies F /C, N/V, CP, SOB, abdominal pain, redness/warmth to RLE, new swelling, calf tenderness, dizziness, headache. Bilateral LE swelling, L>R, appears chronic due to record from last ED visit (where LLE doppler was negative) and due to pt's report. No erythema, warmth, or wound of LLE concerning for infection. Pt states limp is due to LLE wound and states he's walking normally, most likely antalgic, no neurologic deficits concerning for CVA. No s/s of CHF. Consider metabolic derangement as etiology of swelling and r/o with labs. DVT study on 12/13/18 negative for DVT in LLE, but due to continued swelling, will assess again. -CBC, CMP, Coags -LLE Doppler -Dispo: likely d/c home pending w/u 12/23/18 15:54 Labs reviewed. Of note, Na 135, K 5.8, Albumin 2.9. Pt denies palpitations or CP. Denies any complaints. Check EKG. Give food. 12/23/18 17:42 US: no e/o DVT LLE 12/23/18 17:52 EKG: Afib, 88bpm, no STEs, small amplitude T waves in aVL and V2. Unchanged from EKG 08/08/18. 12/23/18 19:16 Redrew K. Pending result. Pt denies any complaints. 12/23/18 19:36 K 4.3. Will dc home with supportive treatment. Return precautions given. Pt understands all dc instructions and all questions were answered. *DC/Admit/Observation/Transfer Diagnosis at time of Disposition: Leg edema - Discharge Dispostion Disposition: HOME Condition at time of disposition: Stable Decision to Admit order: No - Referrals - Patient Instructions Additional Instructions: You have been seen in the Emergency Department for your leg swelling. Your exam and labs show no signs concerning for an emergent condition. Your ultrasound shows no signs of a clot in your left leg. Your sodium (salt) and albumin ( protein) levels were low though. Increase the amount of protein and salt in your diet. Continue to take your home medications as prescribed. Follow-up with your primary care doctor within 1 week. Return to the ED immediately if you experience fever, chest pain, difficulty breathing, dizziness, or any other new or worsening symptom. - Post Discharge Activity
[2018-12-23 15:25] LABS: ALBUMIN 2.9 g/dl (3.4-5.0); BILIRUBIN,TOTAL 0.5 mg/dL (0.2-1); BLOOD UREA NITROGEN 16.3 mg/dL (7-18); CALCIUM 8.1 mg/dL (8.5-10.1); CREATININE 0.8 mg/dL (0.55-1.3); POTASSIUM 5.8 mmol/L (3.5-5.1)
--- NOTE | 2018-12-23 16:43 | PDOC ---
Documentation entered by Bernard Goldberg SCRIBE, acting as scribe for Rafat Carvajal MD. Rafat Carvajal MD: This documentation has been prepared by the Ashlyn olmedo Elijah, SCRIBE, under my direction and personally reviewed by me in its entirety. I confirm that the documentation accurately reflects all work, treatment, procedures, and medical decision making performed by me. Attending Attestation - Resident Resident Name: Rosamaria Bernstein - ED Attending Attestation I have performed the following: I have examined & evaluated the patient, The case was reviewed & discussed with the resident, I agree w/resident's findings & plan, Exceptions are as noted - HPI HPI: 12/23/18 16:22 Patient is a 68 year old male with a significant past medical history of HTN, DM , Afib, schizohrenia, and L leg osteomyelitis who presents to the ED after being observed to be limping. Patient was in hyperbarics and after he was noticed to be limping he was sent down to the ED for evaluation. At this time patient notes that he is at his baseline. Allergies: Torazine - Physicial Exam PE: 12/23/18 16:25 Vitals: Triage vital signs reviewed General Appearance: No acute distress, well nourished, well developed Head: Atraumatic Neck: Supple; No nuchal rigidity Chest Wall: Nontender Cardiac: Regular rate and rhythm, no murmurs, no rubs, no gallops Lungs: Clear to auscultation bilateral, good air movement bilaterally Abdomen: Soft, nondistended, normal bowel sounds, nontender to palpation Extremities: +Lower Left Extremity warm to touch and slightly larger than the right. No cyanosis, clubbing Skin: Warm and dry, no rashes or lesions, no rash, no petechiae Psych: Normal mood, normal affect - Medical Decision Making 12/23/18 17:15 Patient sent to ED for evaluation of leg swelling. No fever no white count is currently being treated for osteomyelitis Status post a duplex 2 weeks ago. We'll repeat duplex check labs and reassess Dr. Archer to follow-up duplex labs and reevaluate.
[2018-12-23 19:59] VITALS: BP 125/85; PULSE 92; TEMP 97.9
--- NOTE | 2018-12-24 09:29 | EKG ---
Test Reason : Blood Pressure : / mmHG Vent. Rate : 088 BPM Atrial Rate : 100 BPM P-R Int : 000 ms QRS Dur : 096 ms QT Int : 358 ms P-R-T Axes : 000 066 061 degrees QTc Int : 433 ms ATRIAL FIBRILLATION ABNORMAL ECG WHEN COMPARED WITH ECG OF 09-DEC-2018 19:08, NO SIGNIFICANT CHANGE WAS FOUND Confirmed by Shiv Valencia MD ([id number]) on 12/24/2018 9:29:11 AM Referred By: Confirmed By:Shiv Valencia MD
== END 2018-12-23 21:14 ==
LOC: JER 13:29
DX: R60.0 Localized edema (principal); R26.89 Other abnormalities of gait and mobility; I11.0 Hypertensive heart disease with heart failure; I50.9 Heart failure, unspecified; I48.91 Unspecified atrial fibrillation; F20.9 Schizophrenia, unspecified; E11.621 Type 2 diabetes mellitus with foot ulcer; M86.8X6 Other osteomyelitis, lower leg; F03.90 Unspecified dementia, unspecified severity, without behavioral disturbance, psychotic disturbance, mood disturbance, and anxiety; F17.210 Nicotine dependence, cigarettes, uncomplicated
CPT/HCPCS: 36415; 80053; 84132; 85025; 85610; 85730; 87040; 93005; 93010; 93971-TC; 99283-25

== ENCOUNTER 2019-01-13 09:28 | Inpatient (IN) | payer OTHER ==
--- NOTE | 2019-01-13 11:36 | PDOC ---
History of Present Illness - General Chief Complaint: Edema Stated Complaint: SWELLING OF THE FACE Time Seen by Provider: 01/13/19 09:56 History Source: Patient Exam Limitations: No Limitations - History of Present Illness Initial Comments: 01/13/19 14:07 Julio Theodore is a 68yM w PMHx HTN, DM, afib, schizohrenia, and L leg osteomyelitis presenting with ataxia. Pt is poor historian. He noticed trouble walking and balancing with R leg heaviness for the last 2 weeks. No leg pain. Went to neurologist 6d ago, told to go to ED for lung opacity. Denies recent alcohol use. Denies fever, cough, SOB, chest/AB pain, urinary/bowel mvmt changes. Past History - Past Medical History Allergies/Adverse Reactions: Allergies Allergy/AdvReac Type Severity Reaction Status Date / Time chlorpromazine Allergy Verified 01/13/19 13:30 [From Thorazine] torazine Allergy Uncoded 01/13/19 09:56 Home Medications: Ambulatory Orders Acetaminophen [Tylenol] 650 mg PO Q6H PRN 09/05/18 Aripiprazole [Abilify -] 5 mg PO DAILY 09/05/18 Digoxin [Lanoxin -] 125 mcg PO DAILY 09/05/18 Metoprolol Tartrate 12.5 mg PO BID 09/05/18 Furosemide [Lasix] 20 mg PO DAILY 5 Days #5 tablet 12/09/18 Benztropine Mesylate [Cogentin -] 0.5 mg PO DAILY 01/13/19 Furosemide [Lasix] 20 mg PO BID 01/13/19 Haloperidol [Haldol -] 0.5 mg PO DAILY 01/13/19 Insulin Sliding Scale [Novolog Vial Sliding Scale -] 0 unit SQ BID 01/13/19 Omeprazole Magnesium [Prilosec Otc] 20 mg PO BID 01/13/19 Cardiac Disorders: Yes (Atial Fib) COPD: No CHF: Yes Diabetes: Yes GI Disorders: Yes (gerd) Disorders: No HTN: Yes Psychiatric Problems: Yes (schizophrenia, dementia) - Surgical History Orthopedic Surgery: Yes (L knee) - Immunization History Immunization Up to Date: Yes - Suicide/Smoking/Psychosocial Hx Smoking History: Former smoker Have you smoked in the past 12 months: No Number of Cigarettes Smoked Daily: 3 Information on smoking cessation initiated: No Hx Alcohol Use: No Drug/Substance Use Hx: No Substance Use Type: None Review of Systems - Review of Systems Constitutional: No: Chills, Fever HEENTM: No: Eye Pain, Nose Pain, Throat Pain, Mouth Pain Respiratory: No: Cough, Shortness of Breath Cardiac (ROS): No: Chest Pain, Palpitations, Syncope ABD/GI: No: Abdominal Distended, Constipated, Diarrhea, Nausea, Vomiting : No: Burning, Dysuria, Flank Pain, Hematuria, Incontinence Musculoskeletal: No: Back Pain, Joint Pain, Muscle Pain, Muscle Weakness *Physical Exam - Vital Signs Last Vital Signs Temp Pulse Resp BP Pulse Ox 98.3 F 101 H 19 114/86 99 01/13/19 09:29 01/13/19 09:29 01/13/19 09:01/13/19 09:01/13/19 10:09 - Physical Exam General Appearance: Yes: Nourished, Appropriately Dressed. No: Apparent Distress HEENT: positive: EOMI, AARON, Hearing Grossly Normal. negative: Scleral Icterus (R), Scleral Icterus (L), Nasal Congestion, Rhinorrhea Respiratory/Chest: positive: Wheezing (RLL), Other (coarse breath sounds RLL). negative: Chest Tender, Respiratory Distress, Accessory Muscle Use, Labored Respiration, Crackles, Rales, Rhonchi, Stridor Cardiovascular: positive: Regular Rate, S1, S2, Irregular. negative: Edema, Murmur Vascular Pulses: Dorsalis-Pedis (R): 3+, Doralis-Pedis (L): 3+ Extremity: positive: Normal Capillary Refill, Swelling (+1 pitting edema to knees, L>R), Other (Legs: 3/5 strength R leg hip flexion, 5/5 L leg hip flexion , 5/5 darion dorsi/plantar flexion. Normal sensation, no LE rash, laceration, erythema). negative: Erythema Integumentary: positive: Normal Color. negative: Rash, Ecchymosis Neurologic: positive: Fully Oriented, Alert, Normal Response, Other (positive bilateral Babinski). negative: Motor Strength 5/5 (R leg weakness 3/5 strength , L leg 5/5), Sensory Deficit, Confused, Disoriented ED Treatment Course - LABORATORY CBC & Chemistry Diagram: 01/13/19 12:10 01/13/19 12:10 - RADIOLOGY Radiology Studies Ordered: Category Date Time Status HEAD CT WITHOUT CONTRAST [CT] Stat CT Scan 01/13/19 11:18 Ordered CHEST X-RAY PORTABLE* [RAD] Stat Radiology 01/13/19 11:18 Ordered Medical Decision Making - Medical Decision Making 01/13/19 11:35 CBC CMP trop CXR EKG CT head EKG shows a fib rate controlled, HR 87, QTc 397. 2nd EKG unchanged. NH4 32 w normal LFTs, trop 0.16, Hgb 8.5 CXR shows cardiomegaly, no sign of infiltrate or failure redrawn 2nd trop 3p 0.56 CT head did not show any acute changes, given 325 aspirin Julio Theodore is a 68yM w PMHx HTN, DM, afib not anticoagulated, schizohrenia, and L leg osteomyelitis presenting with ataxia. Pt has R leg weakness concerning for stroke. Stroke scale 3 R leg some effort against gravity, limb ataxia 1 leg. 1st trop 11am at 0.16. 2nd trop at 3pm up to 0.56. No chest pain/SOB. EKG shows a fib rate controlled, 2nd EKG unchanged. Given 325 aspirin Labs significant for elevated ammonia 32 w normal LFTs, Hgb 8.5. CXR shows cardiomegaly, no sign of infiltrate or failure. CT head did not show any acute changes. Lower concern for hepatic encephalopathy with normal LFTs vs other neuro etiology (cerebellum, vitamin deficiency). Admitted tele Dr Lalo jordan, a fib Consulted Dr Spence, low concern for stroke without any acute findings on CT, will admit for MRI brain w/o contrast to rule out stroke *DC/Admit/Observation/Transfer Diagnosis at time of Disposition: Ataxia Afib Qualifiers: Atrial fibrillation type: chronic Qualified Code(s): I48.2 - Chronic atrial fibrillation - Discharge Dispostion Condition at time of disposition: Stable - Referrals - Patient Instructions - Post Discharge Activity
[2019-01-13 12:18] LABS: BASO % 0.6 % (0-2.0); HEMATOCRIT 26.7 % (35.4-49); HEMOGLOBIN 8.5 GM/dL (11.7-16.9); LYMPH % 5.2 % (8-40); MCH 22.1 pg (25.7-33.7); MCHC 31.7 g/dl (32.0-35.9); MEAN CELL VOLUME 69.8 fl (80-96); MEAN PLT VOLUME 8.7 fl (7.5-11.1); MONO % 10.7 % (3.8-10.2); NEUT % 83.5 % (42.8-82.8); PLATELET COUNT 182 K/MM3 (134-434); RBC 3.83 M/mm3 (4.00-5.60); RDW 21.2 % (11.9-15.9); WHITE BLOOD COUNT 8.4 K/mm3 (4.0-10.0)
[2019-01-13 12:49] LABS: ALBUMIN 2.9 g/dl (3.4-5.0); BILIRUBIN,TOTAL 0.9 mg/dL (0.2-1); BLOOD UREA NITROGEN 13.9 mg/dL (7-18); CALCIUM 8.3 mg/dL (8.5-10.1); CREATININE 0.7 mg/dL (0.55-1.3); POTASSIUM 3.8 mmol/L (3.5-5.1); TOT PROT 6.9 g/dl (6.4-8.2)
--- NOTE | 2019-01-13 13:14 | PDOC ---
Attending Attestation - Resident Resident Name: Chemo Benitez - ED Attending Attestation I have performed the following: I have examined & evaluated the patient, The case was reviewed & discussed with the resident, I agree w/resident's findings & plan, Exceptions are as noted - HPI HPI: 01/13/19 13:12 68 M with h/o HTN, DM, Afib, schizohrenia, and L leg osteomyelitis, presenting to ED with difficulty ambulating. Pt states that for the past 2 weeks, he has felt like his R leg is weaker than his L. When he tries to walk, he feels like his legs are going to give out. Pt denies any dizziness. Denies weakness in either arm. Denies back pain. Denies incontinence. Denies F/C. No recent falls. - Physicial Exam PE: 01/13/19 13:13 Agree w/ resident exam - Critical Care Time Total Critical Care Time: 60 Critical Care Statement: The care of this patient involved high complexity decision making to prevent further life threatening deterioration of the patient 's condition and/or to evaluate & treat vital organ system(s) failure or risk of failure. - Medical Decision Making 01/13/19 13:13 68 M with ataxia and RLE weakness. Concerning for CVA. - Labs - CT head - Neuro c/s 01/13/19 13:27 Pt with trop 0.16 EKG shows afib with no new ischemic changes Pt denies any CP/SOB. CT head negative for acute process Pt given ASA 325
[2019-01-13] MEDS ORDERED: ASPIRIN 81 MG CHEWABLE TABLETS PO ONE (13:24)
[2019-01-13] MEDS ORDERED: ASPIRIN 81 MG CHEWABLE TABLETS ONE ×2 (13:41→13:42)
[2019-01-13 14:13] LABS: ANISOCYTOSIS 2+; MACROCYTOSIS 0; OVALOCYTE 1+; PLATELET ESTIMATE NORMAL; TEAR DROP CELLS 1+
--- NOTE | 2019-01-13 14:29 | EKG ---
Test Reason : Blood Pressure : / mmHG Vent. Rate : 087 BPM Atrial Rate : 192 BPM P-R Int : 000 ms QRS Dur : 102 ms QT Int : 330 ms P-R-T Axes : 000 071 051 degrees QTc Int : 397 ms ATRIAL FIBRILLATION LOW VOLTAGE QRS NONSPECIFIC ST ABNORMALITY ABNORMAL ECG WHEN COMPARED WITH ECG OF 23-DEC-2018 17:52, NO SIGNIFICANT CHANGE WAS FOUND Confirmed by DALE BOATENG MD ([id number]) on 01/13/2019 2:28:42 PM Referred By: Confirmed By:DALE BOATENG MD
--- NOTE | 2019-01-13 19:42 | HP ---
Admitting History and Physical - Primary Care Physician PCP: Jorge May - Admission History of Present Illness: 68yM w PMHx HTN, DM, afib, schizohrenia, and L leg osteomyelitis presenting with ataxia. Pt is poor historian. He noticed trouble walking and balancing with R leg heaviness for the last 2 weeks. No leg pain. Went to neurologist 6d ago, told to go to ED for lung opacity. Denies recent alcohol use. Denies fever , cough, SOB, chest/AB pain, urinary/bowel mvmt changes. - Past Medical History Cardiovascular: Yes: AFIB, HTN Psych: Yes: Schizophrenia - Smoking History Smoking history: Former smoker Have you smoked in the past 12 months: No Aproximately how many cigarettes per day: 3 - Alcohol/Substance Use Hx Alcohol Use: No Home Medications - Allergies Allergies/Adverse Reactions: Allergies Allergy/AdvReac Type Severity Reaction Status Date / Time chlorpromazine Allergy Verified 01/13/19 13:30 [From Thorazine] torazine Allergy Uncoded 01/13/19 09:56 - Home Medications Home Medications: Ambulatory Orders Acetaminophen [Tylenol] 650 mg PO Q6H PRN 09/05/18 Aripiprazole [Abilify -] 5 mg PO DAILY 09/05/18 Digoxin [Lanoxin -] 125 mcg PO DAILY 09/05/18 Metoprolol Tartrate 12.5 mg PO BID 09/05/18 Furosemide [Lasix] 20 mg PO DAILY 5 Days #5 tablet 12/09/18 Benztropine Mesylate [Cogentin -] 0.5 mg PO DAILY 01/13/19 Furosemide [Lasix] 20 mg PO BID 01/13/19 Haloperidol [Haldol -] 0.5 mg PO DAILY 01/13/19 Insulin Sliding Scale [Novolog Vial Sliding Scale -] 0 unit SQ BID 01/13/19 Omeprazole Magnesium [Prilosec Otc] 20 mg PO BID 01/13/19 Physical Examination Vital Signs: Vital Signs Temperature 98.9 F 01/13/19 17:02 Pulse Rate 96 H 01/13/19 17:02 Respiratory Rate 20 01/13/19 17:02 Blood Pressure 118/72 01/13/19 17:02 O2 Sat by Pulse Oximetry (%) 99 01/13/19 17:02 Constitutional: Yes: No Distress HENT: Yes: Atraumatic Neck: Yes: Supple Cardiovascular: Yes: Regular Rate and Rhythm Respiratory: Yes: CTA Bilaterally Gastrointestinal: Yes: Normal Bowel Sounds Extremities: Yes: WNL Neurological: Yes: Alert, Oriented Labs: CBC, BMP 01/13/19 12:10 01/13/19 12:10 Problem List - Problems (1) Afib Assessment/Plan: on meds cardiology consult fu troponins Code(s): I48.91 - UNSPECIFIED ATRIAL FIBRILLATION Qualifiers: Atrial fibrillation type: chronic Qualified Code(s): I48.2 - Chronic atrial fibrillation (2) Ataxia Assessment/Plan: pt eval Code(s): R27.0 - ATAXIA, UNSPECIFIED (3) Diabetes Assessment/Plan: insulin sliding sacle and bgms Code(s): E11.9 - TYPE 2 DIABETES MELLITUS WITHOUT COMPLICATIONS (4) HTN (hypertension) Code(s): I10 - ESSENTIAL (PRIMARY) HYPERTENSION (5) Osteomyelitis Code(s): M86.9 - OSTEOMYELITIS, UNSPECIFIED (6) Schizophrenia Assessment/Plan: continue home meds Code(s): F20.9 - SCHIZOPHRENIA, UNSPECIFIED Assessment/Plan Laboratory Tests 01/13/19 01/13/19 01/13/19 12:10 12:10 12:10 WBC 8.4 RBC 3.83 L Hgb 8.5 L Hct 26.7 L MCV 69.8 L MCH 22.1 L MCHC 31.7 L RDW 21.2 H Plt Count 182 MPV 8.7 D Absolute Neuts (auto) 7.0 Neutrophils % 83.5 H Lymphocytes % 5.2 L D Monocytes % 10.7 H Eosinophils % 0.0 D Basophils % 0.6 Nucleated RBC % 0 Hypochromia 1+ Platelet Estimate Normal Polychromasia 1+ Poikilocytosis 1+ Anisocytosis 2+ Microcytosis 1+ Macrocytosis 0 Tear Drop Cells 1+ Ovalocytes 1+ Schistocytes 1+ Sodium Potassium Chloride Carbon Dioxide Anion Gap BUN Creatinine Est GFR (CKD-EPI)AfAm Est GFR (CKD-EPI)NonAf Random Glucose Calcium Total Bilirubin AST ALT Alkaline Phosphatase Ammonia 32.70 H Creatine Kinase 29 Troponin I 0.16 H Total Protein Albumin 01/13/19 01/13/19 12:10 15:40 WBC RBC Hgb Hct MCV MCH MCHC RDW Plt Count MPV Absolute Neuts (auto) Neutrophils % Lymphocytes % Monocytes % Eosinophils % Basophils % Nucleated RBC % Hypochromia Platelet Estimate Polychromasia Poikilocytosis Anisocytosis Microcytosis Macrocytosis Tear Drop Cells Ovalocytes Schistocytes Sodium 135 L Potassium 3.8 Chloride 101 Carbon Dioxide 26 Anion Gap 8 BUN 13.9 Creatinine 0.7 Est GFR (CKD-EPI)AfAm 113.98 Est GFR (CKD-EPI)NonAf 98.34 Random Glucose 92 Calcium 8.3 L Total Bilirubin 0.9 AST 15 ALT 16 Alkaline Phosphatase 117 Ammonia Creatine Kinase Troponin I 0.56 H Total Protein 6.9 Albumin 2.9 L Active Medications Generic Name Dose Route Start Last Admin Trade Name Freq PRN Reason Stop Dose Admin Acetaminophen 650 mg 01/13/19 20:17 Tylenol - PO Q6H PRN FEVER Aripiprazole 5 mg 01/14/19 10:00 01/14/19 12:24 Abilify PO 5 mg DAILY JONATHON Administration Benztropine Mesylate 0.5 mg 01/14/19 22:00 Cogentin - PO HS JONATHON Furosemide 20 mg 01/14/19 06:00 01/14/19 14:43 Lasix - PO 20 mg BIDLASIX JONATHON Administration Haloperidol 0.5 mg 01/14/19 10:00 01/14/19 12:24 Haldol - PO 0.5 mg DAILY JONATHON Administration Heparin Sodium (Porcine) 5,000 unit 01/13/19 22:00 01/14/19 09:33 Heparin - SQ 5,000 unit BID JONATHON Administration Insulin Aspart 1 vial 01/13/19 22:00 01/14/19 12:26 Novolog Vial Sliding Scale - SQ 4 units BID JONATHON Administration Protocol Insulin Aspart 1 vial 01/14/19 22:00 Novolog Vial Sliding Scale - SQ ACHS JONATHON Protocol Metoprolol Tartrate 12.5 mg 01/13/19 22:00 01/14/19 09:33 Lopressor - PO 12.5 mg BID JONATHON Administration Pantoprazole Sodium 20 mg 01/13/19 22:00 01/14/19 09:34 Protonix - PO 20 mg BID JONATHON Administration
[2019-01-13] MEDS ORDERED: ACETAMINOPHEN 325 MG TABLET (FP) PO ONE (20:16)
[2019-01-13] MEDS ORDERED: PATIENT'S OWN MEDICATION (NON-FORMULARY) (Omeprazole Magnesium [Prilosec Otc] 20 MG) PO SCH (22:00)
[2019-01-13] MEDS: HEPARIN NA (PORCINE) 5,000 UNITS/ML 1ML VIAL SQ SCH (23:05)
[2019-01-13] MEDS: METOPROLOL TARTRATE 25 MG TABLET (FP) PO SCH (23:05)
[2019-01-13] MEDS: PANTOPRAZOLE 20 MG TABLET (FP) PO SCH (23:06)
[2019-01-13] MEDS: INSULIN SLIDING SCALE (NOVOLOG) 1 VIAL SQ SCH (23:38)
[2019-01-14] MEDS: FUROSEMIDE 20 MG TABLET (FP) PO SCH ×2 (06:09→14:43)
--- NOTE | 2019-01-14 08:51 | CONSULT ---
Consult - text type - Consultation Consultation Note: Neurology History of Present Illness - History of Present Illness Initial Comments: Julio Theodore is a 68yM w PMHx HTN, DM, afib, schizohrenia, and L leg osteomyelitis presenting with ataxia. Pt is poor historian. He noticed trouble walking and balancing with R leg heaviness for the last 2 weeks. No leg pain. Went to a neurologist 6d ago, told to go to ED for lung opacity. Denies recent alcohol use. Denies fever, cough, SOB, chest/AB pain, urinary/bowel mvmt changes. I was consulted by the emergency room resident regarding the case and advised admission for the patient he completed noncontrast head CT which showed left frontal chronic infarct. Advised MRI brain to rule out new acute infarcts. Awaiting completion of MRI, if not able can obtain repeat CT head without contrast. Past History - Past Medical History Allergies/Adverse Reactions: Allergies Allergy/AdvReac Type Severity Reaction Status Date / Time chlorpromazine Allergy Verified 01/13/19 13:30 [From Thorazine] torazine Allergy Uncoded 01/13/19 09:56 Home Medications: Ambulatory Orders Acetaminophen [Tylenol] 650 mg PO Q6H PRN 09/05/18 Aripiprazole [Abilify -] 5 mg PO DAILY 09/05/18 Digoxin [Lanoxin -] 125 mcg PO DAILY 09/05/18 Metoprolol Tartrate 12.5 mg PO BID 09/05/18 Furosemide [Lasix] 20 mg PO DAILY 5 Days #5 tablet 12/09/18 Benztropine Mesylate [Cogentin -] 0.5 mg PO DAILY 01/13/19 Furosemide [Lasix] 20 mg PO BID 01/13/19 Haloperidol [Haldol -] 0.5 mg PO DAILY 01/13/19 Insulin Sliding Scale [Novolog Vial Sliding Scale -] 0 unit SQ BID 01/13/19 Omeprazole Magnesium [Prilosec Otc] 20 mg PO BID 01/13/19 Cardiac Disorders: Yes (Atial Fib) COPD: No CHF: Yes Diabetes: Yes GI Disorders: Yes (gerd) Disorders: No HTN: Yes Psychiatric Problems: Yes (schizophrenia, dementia) - Surgical History Orthopedic Surgery: Yes (L knee) - Immunization History Immunization Up to Date: Yes - Suicide/Smoking/Psychosocial Hx Smoking History: Former smoker Have you smoked in the past 12 months: No Number of Cigarettes Smoked Daily: 3 Information on smoking cessation initiated: No Hx Alcohol Use: No Drug/Substance Use Hx: No Substance Use Type: None Review of Systems - Review of Systems Constitutional: No: Chills, Fever HEENTM: No: Eye Pain, Nose Pain, Throat Pain, Mouth Pain Respiratory: No: Cough, Shortness of Breath Cardiac (ROS): No: Chest Pain, Palpitations, Syncope ABD/GI: No: Abdominal Distended, Constipated, Diarrhea, Nausea, Vomiting : No: Burning, Dysuria, Flank Pain, Hematuria, Incontinence Musculoskeletal: No: Back Pain, Joint Pain, Muscle Pain, Muscle Weakness *Physical Exam Vital Signs Period Temp Pulse Resp BP Sys/Stock Pulse Ox Last 24 Hr 98.2 F-101.4 F 94-106 18-22 96-129/61-86 95-99 - Physical Exam General Appearance: Yes: Nourished, Appropriately Dressed. No: Apparent Distress HEENT: positive: EOMI, AARON, Hearing Grossly Normal. negative: Scleral Icterus (R), Scleral Icterus (L), Nasal Congestion, Rhinorrhea Respiratory/Chest: positive: Wheezing (RLL), Other (coarse breath sounds RLL). negative: Chest Tender, Respiratory Distress, Accessory Muscle Use, Labored Respiration, Crackles, Rales, Rhonchi, Stridor Cardiovascular: positive: Regular Rate, S1, S2, Irregular. negative: Edema, Murmur Vascular Pulses: Dorsalis-Pedis (R): 3+, Doralis-Pedis (L): 3+ Extremity: positive: Normal Capillary Refill, Swelling (+1 pitting edema to knees, L>R), Other (Legs: 3/5 strength R leg hip flexion, 5/5 L leg hip flexion , 5/5 darion dorsi/plantar flexion. Normal sensation, no LE rash, laceration, erythema). negative: Erythema Integumentary: positive: Normal Color. negative: Rash, Ecchymosis Neurologic: cranial nerves intact, right lower extremity 3/5 otherwise 5/5, sensory intact, finger to nose normal, gait deferred CBCD WBC 8.4 K/mm3 (4.0-10.0) 01/13/19 12:10 RBC 3.83 M/mm3 (4.00-5.60) L 09/16/19 12:10 Hgb 8.5 GM/dL (11.7-16.9) L 01/13/19 12:10 Hct 26.7 % (35.4-49) L 01/13/19 12:10 MCV 69.8 fl (80-96) L 01/13/19 12:10 MCHC 31.7 g/dl (32.0-35.9) L 01/13/19 12:10 RDW 21.2 % (11.9-15.9) H 01/13/19 12:10 Plt Count 182 K/MM3 (134-434) 01/13/19 12:10 MPV 8.7 fl (7.5-11.1) D 01/13/19 12:10 CMP Sodium 135 mmol/L (136-145) L 01/13/19 12:10 Potassium 3.8 mmol/L (3.5-5.1) 01/13/19 12:10 Chloride 101 mmol/L (98-107) 01/13/19 12:10 Carbon Dioxide 26 mmol/L (21-32) 01/13/19 12:10 Anion Gap 8 MMOL/L (8-16) 01/13/19 12:10 BUN 13.9 mg/dL (7-18) 01/13/19 12:10 Creatinine 0.7 mg/dL (0.55-1.3) 01/13/19 12:10 Random Glucose 92 mg/dL (74-106) 01/13/19 12:10 Calcium 8.3 mg/dL (8.5-10.1) L 01/13/19 12:10 Total Bilirubin 0.9 mg/dL (0.2-1) 01/13/19 12:10 AST 15 U/L (15-37) 01/13/19 12:10 ALT 16 U/L (13-61) 01/13/19 12:10 Alkaline Phosphatase 117 U/L (45-117) 01/13/19 12:10 Total Protein 6.9 g/dl (6.4-8.2) 01/13/19 12:10 Albumin 2.9 g/dl (3.4-5.0) L 01/13/19 12:10 CARDIAC ENZYMES Creatine Kinase 29 U/L (26-308) 01/13/19 12:10 Troponin I 0.56 ng/ml (0.00-0.05) H 01/13/19 15:40 Medical Decision Making Julio Theodore is a 68yM w PMHx HTN, DM, afib, schizohrenia, and L leg osteomyelitis presenting with ataxia. Pt is poor historian. He noticed trouble walking and balancing with R leg heaviness for the last 2 weeks. No leg pain. Went to a neurologist 6d ago, told to go to ED for lung opacity. Denies recent alcohol use. Denies fever, cough, SOB, chest/AB pain, urinary/bowel mvmt changes. I was consulted by the emergency room resident regarding the case and advised admission for the patient he completed noncontrast head CT which showed left frontal chronic infarct. Advised MRI brain to rule out new acute infarcts. Awaiting completion of MRI, if not able can obtain repeat CT head without contrast. On multiple psych medications, mental status seems at baseline. Monitor blood pressure, maintain normotensive range. Telemetry monitoring, physical therapy as tolerated, fall precautions, DVT prophylaxis.
[2019-01-14] MEDS ORDERED: PT OWN MED DRAWER 7, Y5N ONE ×2 (09:25→12:23)
[2019-01-14] MEDS: METOPROLOL TARTRATE 25 MG TABLET (FP) PO SCH ×2 (09:33→22:54)
[2019-01-14] MEDS: HEPARIN NA (PORCINE) 5,000 UNITS/ML 1ML VIAL SQ SCH ×2 (09:33→22:53)
[2019-01-14] MEDS: PANTOPRAZOLE 20 MG TABLET (FP) PO SCH ×2 (09:34→22:53)
[2019-01-14] MEDS: ARIPiprazole 5 MG TABLET (FP) PO SCH (12:24)
[2019-01-14] MEDS: HALOPERIDOL 0.5 MG TABLET PO SCH (12:24)
[2019-01-14] MEDS: INSULIN SLIDING SCALE (NOVOLOG) 1 VIAL SQ SCH ×3 (12:26→22:59)
--- NOTE | 2019-01-14 13:03 | EKG ---
Test Reason : Blood Pressure : / mmHG Vent. Rate : 110 BPM Atrial Rate : 129 BPM P-R Int : 000 ms QRS Dur : 096 ms QT Int : 314 ms P-R-T Axes : 000 073 016 degrees QTc Int : 424 ms ATRIAL FIBRILLATION WITH RAPID VENTRICULAR RESPONSE NONSPECIFIC ST ABNORMALITY ABNORMAL ECG WHEN COMPARED WITH ECG OF 13-JAN-2019 12:02, NONSPECIFIC T WAVE ABNORMALITY NOW EVIDENT IN INFERIOR LEADS Confirmed by MD Gill, Marcelo ([id number]) on 01/14/2019 1:03:38 PM Referred By: Confirmed By:Marcelo Garland MD
--- NOTE | 2019-01-14 17:44 | CON.ID ---
Consult Consult Specialty:: infectious diseases Referred by:: Reason for Consultation:: left foot callouses,r/o infection - History of Present Illness Chief Complaint: could not walk History of Present Illness: 68yM w PMHx HTN, DM, afib, schizohrenia, and L leg osteomyelitis presenting with ataxia. Pt is poor historian. He noticed trouble walking and balancing with R leg heaviness for the last 2 weeks. No leg pain. Went to neurologist 6d ago, told to go to ED for lung opacity. Denies recent alcohol use. Denies fever , cough, SOB, chest/AB pain, urinary/bowel mvmt changes. patient mentions that he is not bale to bear any weight and has no strength - History Source History Provided By: Patient, Medical Record Limitations to Obtaining History: No Limitations - Past Medical History Cardio/Vascular: Yes: AFIB, HTN Psych: Yes: Schizophrenia - Alcohol/Substance Use Hx Alcohol Use: No - Smoking History Smoking history: Former smoker Have you smoked in the past 12 months: No Aproximately how many cigarettes per day: 3 Home Medications - Allergies Allergies/Adverse Reactions: Allergies Allergy/AdvReac Type Severity Reaction Status Date / Time chlorpromazine Allergy Verified 01/13/19 13:30 [From Thorazine] torazine Allergy Uncoded 01/13/19 09:56 - Home Medications Home Medications: Ambulatory Orders Acetaminophen [Tylenol] 650 mg PO Q6H PRN 09/05/18 Aripiprazole [Abilify -] 5 mg PO DAILY 09/05/18 Digoxin [Lanoxin -] 125 mcg PO DAILY 09/05/18 Metoprolol Tartrate 12.5 mg PO BID 09/05/18 Furosemide [Lasix] 20 mg PO DAILY 5 Days #5 tablet 12/09/18 Benztropine Mesylate [Cogentin -] 0.5 mg PO DAILY 01/13/19 Furosemide [Lasix] 20 mg PO BID 01/13/19 Haloperidol [Haldol -] 0.5 mg PO DAILY 01/13/19 Insulin Sliding Scale [Novolog Vial Sliding Scale -] 0 unit SQ BID 01/13/19 Omeprazole Magnesium [Prilosec Otc] 20 mg PO BID 01/13/19 Review of Systems - Review of Systems Constitutional: reports: Weakness Eyes: reports: No Symptoms HENT: reports: No Symptoms Neck: reports: No Symptoms Cardiovascular: reports: No Symptoms Respiratory: reports: No Symptoms Gastrointestinal: reports: No Symptoms Genitourinary: reports: No Symptoms Musculoskeletal: reports: Other Integumentary: reports: Other Neurological: reports: No Symptoms Endocrine: reports: No Symptoms Hematology/Lymphatic: reports: No Symptoms Psychiatric: reports: No Symptoms Physical Exam Vital Signs: Vital Signs Temperature 97.8 F 01/14/19 16:00 Pulse Rate 100 H 01/14/19 16:00 Respiratory Rate 18 01/14/19 16:00 Blood Pressure 98/58 L 01/14/19 16:00 O2 Sat by Pulse Oximetry (%) 97 01/14/19 10:00 Constitutional: Yes: No Distress, Calm Cardiovascular: Yes: Regular Rate and Rhythm Respiratory: Yes: Regular, CTA Bilaterally Gastrointestinal: Yes: Normal Bowel Sounds, Soft Musculoskeletal: Yes: WNL Extremities: Yes: Other (callosuses) Wound/Incision: Yes: Other (callouses) Neurological: Yes: Alert, Oriented Psychiatric: Yes: Alert Labs: CBC, BMP 01/13/19 12:10 01/13/19 12:10 Imaging - Results Chest X-ray: Report Reviewed, Image Reviewed Cat Scan: Report Reviewed, Image Reviewed Assessment/Plan Problem List - Problems (1) Afib Code(s): I48.91 - UNSPECIFIED ATRIAL FIBRILLATION Qualifiers: Atrial fibrillation type: chronic Qualified Code(s): I48.2 - Chronic atrial fibrillation (2) Ataxia Code(s): R27.0 - ATAXIA, UNSPECIFIED (3) Diabetes Code(s): E11.9 - TYPE 2 DIABETES MELLITUS WITHOUT COMPLICATIONS (4) HTN (hypertension) Code(s): I10 - ESSENTIAL (PRIMARY) HYPERTENSION (5) Osteomyelitis Code(s): M86.9 - OSTEOMYELITIS, UNSPECIFIED (6) Schizophrenia Code(s): F20.9 - SCHIZOPHRENIA, UNSPECIFIED plan continue current mgmt await for all the results rest as per the team
--- NOTE | 2019-01-14 18:20 | PN ---
Progress Note, Physician History of Present Illness: no complaints - Current Medication List Current Medications: Active Medications Acetaminophen (Tylenol -) 650 mg PO Q6H PRN PRN Reason: FEVER Aripiprazole (Abilify) 5 mg PO DAILY [facility] Last Admin: 01/14/19 12:24 Dose: 5 mg Benztropine Mesylate (Cogentin -) 0.5 mg PO HS [facility] Furosemide (Lasix -) 20 mg PO BIDLASIX [facility] Last Admin: 01/14/19 14:43 Dose: 20 mg Haloperidol (Haldol -) 0.5 mg PO DAILY [facility] Last Admin: 01/14/19 12:24 Dose: 0.5 mg Heparin Sodium (Porcine) (Heparin -) 5,000 unit SQ BID [facility] Last Admin: 01/14/19 09:33 Dose: 5,000 unit Insulin Aspart (Novolog Vial Sliding Scale -) 1 vial SQ BID [facility]; Protocol Last Admin: 01/14/19 12:26 Dose: 4 units Metoprolol Tartrate (Lopressor -) 12.5 mg PO BID [facility] Last Admin: 01/14/19 09:33 Dose: 12.5 mg Pantoprazole Sodium (Protonix -) 20 mg PO BID [facility] Last Admin: 01/14/19 09:34 Dose: 20 mg - Objective Vital Signs: Vital Signs Temperature 97.8 F 01/14/19 16:00 Pulse Rate 100 H 01/14/19 16:00 Respiratory Rate 18 01/14/19 16:00 Blood Pressure 98/58 L 01/14/19 16:00 O2 Sat by Pulse Oximetry (%) 97 01/14/19 10:00 Constitutional: Yes: No Distress HENT: Yes: Atraumatic Neck: Yes: Supple Cardiovascular: Yes: Regular Rate and Rhythm Respiratory: Yes: CTA Bilaterally Gastrointestinal: Yes: Normal Bowel Sounds Extremities: Yes: WNL Edema: No Peripheral Pulses WNL: Yes Neurological: Yes: Alert, Oriented Labs: CBC, BMP 01/13/19 12:10 01/13/19 12:10 Problem List - Problems (1) Afib Assessment/Plan: on meds cardiology consult fu troponins Code(s): I48.91 - UNSPECIFIED ATRIAL FIBRILLATION Qualifiers: Atrial fibrillation type: chronic Qualified Code(s): I48.2 - Chronic atrial fibrillation (2) Ataxia Assessment/Plan: pt eval Code(s): R27.0 - ATAXIA, UNSPECIFIED (3) Diabetes Assessment/Plan: insulin sliding sacle and bgms Code(s): E11.9 - TYPE 2 DIABETES MELLITUS WITHOUT COMPLICATIONS (4) HTN (hypertension) Code(s): I10 - ESSENTIAL (PRIMARY) HYPERTENSION (5) Osteomyelitis Code(s): M86.9 - OSTEOMYELITIS, UNSPECIFIED (6) Schizophrenia Assessment/Plan: continue home meds Code(s): F20.9 - SCHIZOPHRENIA, UNSPECIFIED
[2019-01-14] MEDS ORDERED: INSULIN (NOVOLOG) ASPART 100 UNITS/ML 10ML VIAL ONE (22:32)
[2019-01-14] MEDS: BENZTROPINE MESYLATE 0.5 MG TABLET (FP) PO SCH (22:55)
[2019-01-15] MEDS: FUROSEMIDE 20 MG TABLET (FP) PO SCH (06:27)
[2019-01-15] MEDS: INSULIN SLIDING SCALE (NOVOLOG) 1 VIAL SQ SCH ×6 (06:34→21:34)
--- NOTE | 2019-01-15 08:16 | PN ---
Progress Note (short form) - Note Progress Note: History of Present Illness - History of Present Illness Initial Comments: Julio Theodore is a 68yM w PMHx HTN, DM, afib, schizohrenia, and L leg osteomyelitis presenting with ataxia. Pt is poor historian. He noticed trouble walking and balancing with R leg heaviness for the last 2 weeks. No leg pain. Went to a neurologist 6d ago propr to admission, told to go to ED for lung opacity. Denies recent alcohol use. Denies fever, cough, SOB, chest/AB pain, urinary/bowel mvmt changes. I was consulted by the emergency room resident regarding the case and advised admission for the patient; he completed noncontrast head CT which showed left frontal chronic infarct. Advised MRI brain to rule out new acute infarcts. MRI not able to be completed, reportedly with metal, will order CT head and will check CT lumbar spine as well. Discussed with nurse. Active Medications Acetaminophen (Tylenol -) 650 mg PO Q6H PRN PRN Reason: FEVER Aripiprazole (Abilify) 5 mg PO DAILY [facility] Last Admin: 01/14/19 12:24 Dose: 5 mg Benztropine Mesylate (Cogentin -) 0.5 mg PO HS [facility] Last Admin: 01/14/19 22:55 Dose: 0.5 mg Furosemide (Lasix -) 20 mg PO BIDLASIX [facility] Last Admin: 01/15/19 06:27 Dose: 20 mg Haloperidol (Haldol -) 0.5 mg PO DAILY [facility] Last Admin: 01/14/19 12:24 Dose: 0.5 mg Heparin Sodium (Porcine) (Heparin -) 5,000 unit SQ BID [facility] Last Admin: 01/14/19 22:53 Dose: 5,000 unit Insulin Aspart (Novolog Vial Sliding Scale -) 1 vial SQ BID [facility]; Protocol Last Admin: 01/14/19 22:59 Dose: Not Given Insulin Aspart (Novolog Vial Sliding Scale -) 1 vial SQ ACHS [facility]; Protocol Last Admin: 01/15/19 06:34 Dose: 2 units Metoprolol Tartrate (Lopressor -) 12.5 mg PO BID [facility] Last Admin: 01/14/19 22:54 Dose: 12.5 mg Pantoprazole Sodium (Protonix -) 20 mg PO BID [facility] Last Admin: 01/14/19 22:53 Dose: 20 mg *Physical Exam Vital Signs Period Temp Pulse Resp BP Sys/Stock Pulse Ox Last 24 Hr 97.8 F-98.7 F 91-118 18-24 98-114/58-90 97 - Physical Exam General Appearance: Yes: Nourished, Appropriately Dressed. No: Apparent Distress HEENT: positive: EOMI, AARON, Hearing Grossly Normal. negative: Scleral Icterus (R), Scleral Icterus (L), Nasal Congestion, Rhinorrhea Respiratory/Chest: positive: Wheezing (RLL), Other (coarse breath sounds RLL). negative: Chest Tender, Respiratory Distress, Accessory Muscle Use, Labored Respiration, Crackles, Rales, Rhonchi, Stridor Cardiovascular: positive: Regular Rate, S1, S2, Irregular. negative: Edema, Murmur Vascular Pulses: Dorsalis-Pedis (R): 3+, Doralis-Pedis (L): 3+ Extremity: positive: Normal Capillary Refill, Swelling (+1 pitting edema to knees, L>R), Other (Legs: 3/5 strength R leg hip flexion, 5/5 L leg hip flexion , 5/5 darion dorsi/plantar flexion. Normal sensation, no LE rash, laceration, erythema). negative: Erythema Integumentary: positive: Normal Color. negative: Rash, Ecchymosis Neurologic: cranial nerves intact, right lower extremity 3/5 otherwise 5/5, sensory intact, finger to nose normal, gait deferred CBCD WBC 8.4 K/mm3 (4.0-10.0) 01/13/19 12:10 RBC 3.83 M/mm3 (4.00-5.60) L 01/13/19 12:10 Hgb 8.5 GM/dL (11.7-16.9) L 01/13/19 12:10 Hct 26.7 % (35.4-49) L 01/13/19 12:10 MCV 69.8 fl (80-96) L 01/13/19 12:10 MCHC 31.7 g/dl (32.0-35.9) L 01/13/19 12:10 RDW 21.2 % (11.9-15.9) H 01/13/19 12:10 Plt Count 182 K/MM3 (134-434) 01/13/19 12:10 MPV 8.7 fl (7.5-11.1) D 01/13/19 12:10 CMP Sodium 135 mmol/L (136-145) L 01/13/19 12:10 Potassium 3.8 mmol/L (3.5-5.1) 01/13/19 12:10 Chloride 101 mmol/L (98-107) 01/13/19 12:10 Carbon Dioxide 26 mmol/L (21-32) 01/13/19 12:10 Anion Gap 8 MMOL/L (8-16) 01/13/19 12:10 BUN 13.9 mg/dL (7-18) 01/13/19 12:10 Creatinine 0.7 mg/dL (0.55-1.3) 01/13/19 12:10 Calcium 8.3 mg/dL (8.5-10.1) L 01/13/19 12:10 Total Bilirubin 0.9 mg/dL (0.2-1) 01/13/19 12:10 AST 15 U/L (15-37) 01/13/19 12:10 ALT 16 U/L (13-61) 01/13/19 12:10 Alkaline Phosphatase 117 U/L (45-117) 01/13/19 12:10 Total Protein 6.9 g/dl (6.4-8.2) 01/13/19 12:10 Albumin 2.9 g/dl (3.4-5.0) L 01/13/19 12:10 Medical Decision Making Julio Theodore is a 68yM w PMHx HTN, DM, afib, schizohrenia, and L leg osteomyelitis presenting with ataxia. Pt is poor historian. He noticed trouble walking and balancing with R leg heaviness for the last 2 weeks. No leg pain. Went to a neurologist 6d ago prior to admission, told to go to ED for lung opacity. Denies recent alcohol use. Denies fever, cough, SOB, chest/AB pain, urinary/bowel mvmt changes. I was consulted by the emergency room resident regarding the case and advised admission for the patient he completed noncontrast head CT which showed left frontal chronic infarct. Advised MRI brain to rule out new acute infarcts.MRI not able to be completed, reportedly with metal, will order CT head and will check CT lumbar spine as well. Discussed with nurse. On multiple psych medications, mental status seems at baseline. Monitor blood pressure, maintain normotensive range. Telemetry monitoring, physical therapy as tolerated, fall precautions, DVT prophylaxis.
[2019-01-15] MEDS ORDERED: PT OWN MED DRAWER 7, Y5N ONE ×2 (08:41→09:47)
[2019-01-15] MEDS: PANTOPRAZOLE 20 MG TABLET (FP) PO SCH ×2 (09:53→21:32)
[2019-01-15] MEDS: ARIPiprazole 5 MG TABLET (FP) PO SCH (09:54)
[2019-01-15] MEDS: METOPROLOL TARTRATE 25 MG TABLET (FP) PO SCH ×3 (09:54→21:32)
[2019-01-15] MEDS: HEPARIN NA (PORCINE) 5,000 UNITS/ML 1ML VIAL SQ SCH ×2 (09:55→21:34)
[2019-01-15] MEDS: HALOPERIDOL 0.5 MG TABLET PO SCH (09:55)
--- NOTE | 2019-01-15 11:54 | CON.CARD ---
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 Pt is poor historian. He noticed trouble walking and balancing with R leg heaviness for the last 2 weeks. No leg pain. Denies recent alcohol use. Denies fever, cough, SOB, chest/ abdominal pain, urinary/bowel mvmt changes. - History Source History Provided By: Medical Record Limitations to Obtaining History: Poor Historian - Past Medical History Cardio/Vascular: Yes: AFIB, HTN Psych: Yes: Schizophrenia - Alcohol/Substance Use Hx Alcohol Use: No - Smoking History Smoking history: Former smoker Have you smoked in the past 12 months: No Aproximately how many cigarettes per day: 3 Home Medications - Allergies Allergies/Adverse Reactions: Allergies Allergy/AdvReac Type Severity Reaction Status Date / Time chlorpromazine Allergy Verified 01/13/19 13:30 [From Thorazine] torazine Allergy Uncoded 01/13/19 09:56 - Home Medications Home Medications: Ambulatory Orders Acetaminophen [Tylenol] 650 mg PO Q6H PRN 09/05/18 Aripiprazole [Abilify -] 5 mg PO DAILY 09/05/18 Digoxin [Lanoxin -] 125 mcg PO DAILY 09/05/18 Metoprolol Tartrate 12.5 mg PO BID 09/05/18 Furosemide [Lasix] 20 mg PO DAILY 5 Days #5 tablet 12/09/18 Benztropine Mesylate [Cogentin -] 0.5 mg PO DAILY 01/13/19 Furosemide [Lasix] 20 mg PO BID 01/13/19 Haloperidol [Haldol -] 0.5 mg PO DAILY 01/13/19 Insulin Sliding Scale [Novolog Vial Sliding Scale -] 0 unit SQ BID 01/13/19 Omeprazole Magnesium [Prilosec Otc] 20 mg PO BID 01/13/19 Review of Systems - Review of Systems Neurological: reports: Unsteady Gait, Weakness (RLE) Vital Signs: Vital Signs Temperature 97.9 F 01/15/19 06:00 Pulse Rate 98 H 01/15/19 08:03 Respiratory Rate 18 01/15/19 08:03 Blood Pressure 107/73 01/15/19 08:03 O2 Sat by Pulse Oximetry (%) 97 01/14/19 10:00 Constitutional: Yes: No Distress, Calm, Thin Neck: Yes: Supple Respiratory: Yes: Regular, CTA Bilaterally Gastrointestinal: Yes: Soft, Hypoactive Bowel Sounds Cardiovascular: Yes: Pulse Irregular JVD: No Carotid Bruit: No Heart Sounds: Yes: S1, S2 Edema: No - Other Data Labs, Other Data: CBC, BMP 01/13/19 12:10 01/13/19 12:10 Afib @ [address] changes Tele: Rate-controlled afib Imaging - Results Chest X-ray: Report Reviewed (NAD) Cat Scan: Report Reviewed (HCT: No acute strokes) Problem List - Problems (1) Demand ischemia Code(s): I24.8 - OTHER FORMS OF ACUTE ISCHEMIC HEART DISEASE (2) Anemia Code(s): D64.9 - ANEMIA, UNSPECIFIED Qualifiers: Anemia type: unspecified type Qualified Code(s): D64.9 - Anemia, unspecified Assessment/Plan - Problems (1) Afib Assessment/Plan: Increase Lopressor 25 bid, d/c digoxin, wean Lasix 20 qd, ideally for NOAC given [id number], trend trops to document peak Code(s): I48.91 - UNSPECIFIED ATRIAL FIBRILLATION Qualifiers: Atrial fibrillation type: chronic Qualified Code(s): I48.2 - Chronic atrial fibrillation (2) Ataxia Assessment/Plan: pt eval, unable to obtain brain MRI due to metal, await repeat HCT and LS spine CT Code(s): R27.0 - ATAXIA, UNSPECIFIED (3) Diabetes Assessment/Plan: insulin sliding sacle and bgms Code(s): E11.9 - TYPE 2 DIABETES MELLITUS WITHOUT COMPLICATIONS (4) HTN (hypertension) Code(s): I10 - ESSENTIAL (PRIMARY) HYPERTENSION (5) Osteomyelitis Code(s): M86.9 - OSTEOMYELITIS, UNSPECIFIED (6) Schizophrenia Code(s): F20.9 - SCHIZOPHRENIA, UNSPECIFIED On Abilify, Haldol and Cogentin
--- NOTE | 2019-01-15 12:18 | PN ---
Progress Note, Physician History of Present Illness: stable no new issues - Current Medication List Current Medications: Active Medications Acetaminophen (Tylenol -) 650 mg PO Q6H PRN PRN Reason: FEVER Aripiprazole (Abilify) 5 mg PO DAILY [facility] Last Admin: 01/15/19 09:54 Dose: 5 mg Benztropine Mesylate (Cogentin -) 0.5 mg PO HS [facility] Last Admin: 01/14/19 22:55 Dose: 0.5 mg Furosemide (Lasix -) 20 mg PO DAILY [facility] Haloperidol (Haldol -) 0.5 mg PO DAILY [facility] Last Admin: 01/15/19 09:55 Dose: 0.5 mg Heparin Sodium (Porcine) (Heparin -) 5,000 unit SQ BID [facility] Last Admin: 01/15/19 09:55 Dose: 5,000 unit Insulin Aspart (Novolog Vial Sliding Scale -) 1 vial SQ BID [facility]; Protocol Last Admin: 01/14/19 22:59 Dose: Not Given Insulin Aspart (Novolog Vial Sliding Scale -) 1 vial SQ ACHS [facility]; Protocol Last Admin: 01/15/19 06:34 Dose: 2 units Metoprolol Tartrate (Lopressor -) 25 mg PO BID [facility] Pantoprazole Sodium (Protonix -) 20 mg PO BID [facility] Last Admin: 01/15/19 09:53 Dose: 20 mg - Objective Vital Signs: Vital Signs Temperature 97.9 F 01/15/19 06:00 Pulse Rate 98 H 01/15/19 08:03 Respiratory Rate 18 01/15/19 08:03 Blood Pressure 107/73 01/15/19 08:03 O2 Sat by Pulse Oximetry (%) 97 01/14/19 10:00 Constitutional: Yes: No Distress, Calm Cardiovascular: Yes: S1, S2 Respiratory: Yes: Regular, CTA Bilaterally Gastrointestinal: Yes: Normal Bowel Sounds, Soft Musculoskeletal: Yes: WNL Extremities: Yes: WNL Neurological: Yes: Alert, Oriented Psychiatric: Yes: Alert, Oriented Labs: CBC, BMP 01/13/19 12:10 01/13/19 12:10 Assessment/Plan Problem List - Problems (1) Afib Code(s): I48.91 - UNSPECIFIED ATRIAL FIBRILLATION Qualifiers: Atrial fibrillation type: chronic Qualified Code(s): I48.2 - Chronic atrial fibrillation (2) Ataxia Code(s): R27.0 - ATAXIA, UNSPECIFIED (3) Diabetes Code(s): E11.9 - TYPE 2 DIABETES MELLITUS WITHOUT COMPLICATIONS (4) HTN (hypertension) Code(s): I10 - ESSENTIAL (PRIMARY) HYPERTENSION (5) Osteomyelitis Code(s): M86.9 - OSTEOMYELITIS, UNSPECIFIED (6) Schizophrenia Code(s): F20.9 - SCHIZOPHRENIA, UNSPECIFIED plan continue current mgmt await for all the results rest as per the team
--- NOTE | 2019-01-15 12:20 | PN ---
Progress Note, Physician - Current Medication List Current Medications: Active Medications Acetaminophen (Tylenol -) 650 mg PO Q6H PRN PRN Reason: FEVER Aripiprazole (Abilify) 5 mg PO DAILY [facility] Last Admin: 01/15/19 09:54 Dose: 5 mg Benztropine Mesylate (Cogentin -) 0.5 mg PO HS [facility] Last Admin: 01/14/19 22:55 Dose: 0.5 mg Furosemide (Lasix -) 20 mg PO DAILY [facility] Haloperidol (Haldol -) 0.5 mg PO DAILY [facility] Last Admin: 01/15/19 09:55 Dose: 0.5 mg Heparin Sodium (Porcine) (Heparin -) 5,000 unit SQ BID [facility] Last Admin: 01/15/19 09:55 Dose: 5,000 unit Insulin Aspart (Novolog Vial Sliding Scale -) 1 vial SQ BID [facility]; Protocol Last Admin: 01/14/19 22:59 Dose: Not Given Insulin Aspart (Novolog Vial Sliding Scale -) 1 vial SQ ACHS [facility]; Protocol Last Admin: 01/15/19 06:34 Dose: 2 units Metoprolol Tartrate (Lopressor -) 25 mg PO BID [facility] Pantoprazole Sodium (Protonix -) 20 mg PO BID [facility] Last Admin: 01/15/19 09:53 Dose: 20 mg - Objective Vital Signs: Vital Signs Temperature 97.9 F 01/15/19 06:00 Pulse Rate 98 H 01/15/19 08:03 Respiratory Rate 18 01/15/19 08:03 Blood Pressure 107/73 01/15/19 08:03 O2 Sat by Pulse Oximetry (%) 97 01/14/19 10:00 Constitutional: Yes: No Distress HENT: Yes: Atraumatic Neck: Yes: Supple Cardiovascular: Yes: Regular Rate and Rhythm Respiratory: Yes: CTA Bilaterally Gastrointestinal: Yes: Normal Bowel Sounds Extremities: Yes: WNL Edema: No Neurological: Yes: Alert, Oriented Labs: CBC, BMP 01/13/19 12:10 01/13/19 12:10 Problem List - Problems (1) Afib Assessment/Plan: meds getting adjusted rapid afib today Code(s): I48.91 - UNSPECIFIED ATRIAL FIBRILLATION Qualifiers: Atrial fibrillation type: persistent Qualified Code(s): I48.1 - Persistent atrial fibrillation (2) Ataxia Assessment/Plan: pt eval Code(s): R27.0 - ATAXIA, UNSPECIFIED (3) Diabetes Assessment/Plan: insulin sliding scale and bgms Code(s): E11.9 - TYPE 2 DIABETES MELLITUS WITHOUT COMPLICATIONS (4) HTN (hypertension) Code(s): I10 - ESSENTIAL (PRIMARY) HYPERTENSION Qualifiers: Hypertension type: essential hypertension Qualified Code(s): I10 - Essential (primary) hypertension (5) Osteomyelitis Code(s): M86.9 - OSTEOMYELITIS, UNSPECIFIED (6) Schizophrenia Code(s): F20.9 - SCHIZOPHRENIA, UNSPECIFIED
[2019-01-15] MEDS: BENZTROPINE MESYLATE 0.5 MG TABLET (FP) PO SCH (21:32)
[2019-01-16] MEDS: INSULIN SLIDING SCALE (NOVOLOG) 1 VIAL SQ SCH ×6 (06:17→21:53)
--- NOTE | 2019-01-16 08:52 | PN ---
Progress Note (short form) - Note Progress Note: History of Present Illness - History of Present Illness Initial Comments: Julio Theodore is a 68yM w PMHx HTN, DM, afib, schizohrenia, and L leg osteomyelitis presenting with ataxia. Pt is poor historian. He noticed trouble walking and balancing with R leg heaviness for the last 2 weeks. No leg pain. Went to a neurologist 6d ago propr to admission, told to go to ED for lung opacity. Denies recent alcohol use. Denies fever, cough, SOB, chest/AB pain, urinary/bowel mvmt changes. I was consulted by the emergency room resident regarding the case and advised admission for the patient; he completed noncontrast head CT which showed left frontal chronic infarct. Advised MRI brain to rule out new acute infarcts. MRI not able to be completed, reportedly with metal, ordered CT head and CT lumbar spine as well. Discussed with nurse. CT head completed and did not show any acute changes. CT of the lumbar spine also completed and reviewed no evidence of spondylolisthesis, no central spinal stenosis stenosis, no significant disc displacement arthritic changes noted. Active Medications Acetaminophen (Tylenol -) 650 mg PO Q6H PRN PRN Reason: FEVER Aripiprazole (Abilify) 5 mg PO DAILY [facility] Last Admin: 01/15/19 09:54 Dose: 5 mg Benztropine Mesylate (Cogentin -) 0.5 mg PO HS [facility] Last Admin: 01/15/19 21:32 Dose: 0.5 mg Furosemide (Lasix -) 20 mg PO DAILY [facility] Haloperidol (Haldol -) 0.5 mg PO DAILY [facility] Last Admin: 01/15/19 09:55 Dose: 0.5 mg Heparin Sodium (Porcine) (Heparin -) 5,000 unit SQ BID [facility] Last Admin: 01/15/19 21:34 Dose: 5,000 unit Insulin Aspart (Novolog Vial Sliding Scale -) 1 vial SQ BID [facility]; Protocol Last Admin: 01/15/19 21:33 Dose: 2 units Insulin Aspart (Novolog Vial Sliding Scale -) 1 vial SQ ACHS [facility]; Protocol Last Admin: 01/16/19 06:17 Dose: Not Given Metoprolol Tartrate (Lopressor -) 25 mg PO BID [facility] Last Admin: 01/15/19 21:32 Dose: 25 mg Pantoprazole Sodium (Protonix -) 20 mg PO BID [facility] Last Admin: 01/15/19 21:32 Dose: 20 mg *Physical Exam Vital Signs Period Temp Pulse Resp BP Sys/Stock Pulse Ox Last 24 Hr 97.8 F-98.0 F 78-110 18- 97-112/59-77 - Physical Exam General Appearance: Yes: Nourished, Appropriately Dressed. No: Apparent Distress HEENT: positive: EOMI, AARON, Hearing Grossly Normal. negative: Scleral Icterus (R), Scleral Icterus (L), Nasal Congestion, Rhinorrhea Respiratory/Chest: positive: Wheezing (RLL), Other (coarse breath sounds RLL). negative: Chest Tender, Respiratory Distress, Accessory Muscle Use, Labored Respiration, Crackles, Rales, Rhonchi, Stridor Cardiovascular: positive: Regular Rate, S1, S2, Irregular. negative: Edema, Murmur Vascular Pulses: Dorsalis-Pedis (R): 3+, Doralis-Pedis (L): 3+ Extremity: positive: Normal Capillary Refill, Swelling (+1 pitting edema to knees, L>R), Other (Legs: 3/5 strength R leg hip flexion, 5/5 L leg hip flexion , 5/5 darion dorsi/plantar flexion. Normal sensation, no LE rash, laceration, erythema). negative: Erythema Integumentary: positive: Normal Color. negative: Rash, Ecchymosis Neurologic: cranial nerves intact, right lower extremity 3/5 otherwise 5/5, sensory intact, finger to nose normal, gait deferred CBCD WBC 8.4 K/mm3 (4.0-10.0) 01/13/19 12:10 RBC 3.83 M/mm3 (4.00-5.60) L 01/13/19 12:10 Hgb 8.5 GM/dL (11.7-16.9) L 01/13/19 12:10 Hct 26.7 % (35.4-49) L 01/13/19 12:10 MCV 69.8 fl (80-96) L 01/13/19 12:10 MCHC 31.7 g/dl (32.0-35.9) L 01/13/19 12:10 RDW 21.2 % (11.9-15.9) H 01/13/19 12:10 Plt Count 182 K/MM3 (134-434) 01/13/19 12:10 MPV 8.7 fl (7.5-11.1) D 01/13/19 12:10 CMP Sodium 135 mmol/L (136-145) L 01/13/19 12:10 Potassium 3.8 mmol/L (3.5-5.1) 01/13/19 12:10 Chloride 101 mmol/L (98-107) 01/13/19 12:10 Carbon Dioxide 26 mmol/L (21-32) 01/13/19 12:10 Anion Gap 8 MMOL/L (8-16) 01/13/19 12:10 BUN 13.9 mg/dL (7-18) 01/13/19 12:10 Creatinine 0.7 mg/dL (0.55-1.3) 01/13/19 12:10 Calcium 8.3 mg/dL (8.5-10.1) L 01/13/19 12:10 Total Bilirubin 0.9 mg/dL (0.2-1) 01/13/19 12:10 AST 15 U/L (15-37) 01/13/19 12:10 ALT 16 U/L (13-61) 01/13/19 12:10 Alkaline Phosphatase 117 U/L (45-117) 01/13/19 12:10 Total Protein 6.9 g/dl (6.4-8.2) 01/13/19 12:10 Albumin 2.9 g/dl (3.4-5.0) L 01/13/19 12:10 Medical Decision Making Julio Theodore is a 68yM w PMHx HTN, DM, afib, schizohrenia, and L leg osteomyelitis presenting with ataxia. Pt is poor historian. He noticed trouble walking and balancing with R leg heaviness for the last 2 weeks. No leg pain. Went to a neurologist 6d ago prior to admission, told to go to ED for lung opacity. Denies recent alcohol use. Denies fever, cough, SOB, chest/AB pain, urinary/bowel mvmt changes. I was consulted by the emergency room resident regarding the case and advised admission for the patient he completed noncontrast head CT which showed left frontal chronic infarct. Advised MRI brain to rule out new acute infarcts.MRI not able to be completed, reportedly with metal, will order CT head and will check CT lumbar spine as well. Discussed with nurse. CT head completed and did not show any acute changes. CT of the lumbar spine also completed and reviewed no evidence of spondylolisthesis, no central spinal stenosis stenosis, no significant disc displacement arthritic changes noted. On multiple psych medications, mental status seems at baseline. Monitor blood pressure, maintain normotensive range. Telemetry monitoring, physical therapy as tolerated, fall precautions, DVT prophylaxis. Continue medical optimization.
--- NOTE | 2019-01-16 10:23 | PN ---
Progress Note, Physician History of Present Illness: Remains in rate-controlled afib, denies chest pain, dyspnea, palpitations. - Current Medication List Current Medications: Active Medications Acetaminophen (Tylenol -) 650 mg PO Q6H PRN PRN Reason: FEVER Aripiprazole (Abilify) 5 mg PO DAILY [facility] Last Admin: 01/15/19 09:54 Dose: 5 mg Benztropine Mesylate (Cogentin -) 0.5 mg PO HS [facility] Last Admin: 01/15/19 21:32 Dose: 0.5 mg Furosemide (Lasix -) 20 mg PO DAILY [facility] Haloperidol (Haldol -) 0.5 mg PO DAILY [facility] Last Admin: 01/15/19 09:55 Dose: 0.5 mg Heparin Sodium (Porcine) (Heparin -) 5,000 unit SQ BID [facility] Last Admin: 01/15/19 21:34 Dose: 5,000 unit Insulin Aspart (Novolog Vial Sliding Scale -) 1 vial SQ BID [facility]; Protocol Last Admin: 01/15/19 21:33 Dose: 2 units Insulin Aspart (Novolog Vial Sliding Scale -) 1 vial SQ ACHS [facility]; Protocol Last Admin: 01/16/19 06:17 Dose: Not Given Metoprolol Tartrate (Lopressor -) 25 mg PO BID [facility] Last Admin: 01/15/19 21:32 Dose: 25 mg Pantoprazole Sodium (Protonix -) 20 mg PO BID [facility] Last Admin: 01/15/19 21:32 Dose: 20 mg - Objective Vital Signs: Vital Signs Temperature 98.0 F 01/16/19 04:00 Pulse Rate 89 01/16/19 04:00 Respiratory Rate 20 01/16/19 04:00 Blood Pressure 98/68 01/16/19 04:00 O2 Sat by Pulse Oximetry (%) 97 01/14/19 10:00 Constitutional: Yes: No Distress, Calm Neck: Yes: Supple Cardiovascular: Yes: Pulse Irregular Respiratory: Yes: Regular, Diminished Gastrointestinal: Yes: Soft, Hypoactive Bowel Sounds Edema: No Labs: CBC, BMP 01/13/19 12:10 01/13/19 12:10 - ....Imaging Cat Scan: Report Reviewed (HCT: No acute changes) EKG: Report Reviewed (Tele: Rate-controlled afib) Problem List - Problems (1) Demand ischemia Code(s): I24.8 - OTHER FORMS OF ACUTE ISCHEMIC HEART DISEASE (2) Anemia Code(s): D64.9 - ANEMIA, UNSPECIFIED Qualifiers: Anemia type: unspecified type Qualified Code(s): D64.9 - Anemia, unspecified Assessment/Plan - Problems (1) Afib Assessment/Plan: Increased Lopressor 25 bid, d/c digoxin, decreased Lasix 20 qd, ideally for NOAC given [id number], trops downtrending Code(s): I48.91 - UNSPECIFIED ATRIAL FIBRILLATION Qualifiers: Atrial fibrillation type: chronic Qualified Code(s): I48.2 - Chronic atrial fibrillation (2) Ataxia Assessment/Plan: pt eval, unable to obtain brain MRI due to metal, await LS spine CT Code(s): R27.0 - ATAXIA, UNSPECIFIED (3) Diabetes Assessment/Plan: insulin sliding sacle and bgms Code(s): E11.9 - TYPE 2 DIABETES MELLITUS WITHOUT COMPLICATIONS (4) HTN (hypertension) Code(s): I10 - ESSENTIAL (PRIMARY) HYPERTENSION (5) Osteomyelitis Code(s): M86.9 - OSTEOMYELITIS, UNSPECIFIED (6) Schizophrenia Code(s): F20.9 - SCHIZOPHRENIA, UNSPECIFIED On Abilify, Haldol and Cogentin
[2019-01-16] MEDS ORDERED: PT OWN MED DRAWER 7, Y5N ONE ×2 (10:37→21:51)
[2019-01-16] MEDS: HALOPERIDOL 0.5 MG TABLET PO SCH (10:38)
[2019-01-16] MEDS: ARIPiprazole 5 MG TABLET (FP) PO SCH (10:38)
[2019-01-16] MEDS: PANTOPRAZOLE 20 MG TABLET (FP) PO SCH ×2 (10:38→21:49)
[2019-01-16] MEDS: HEPARIN NA (PORCINE) 5,000 UNITS/ML 1ML VIAL SQ SCH (10:38)
[2019-01-16] MEDS: FUROSEMIDE 20 MG TABLET (FP) PO SCH (10:38)
[2019-01-16] MEDS: METOPROLOL TARTRATE 25 MG TABLET (FP) PO SCH ×2 (10:39→21:49)
--- NOTE | 2019-01-16 11:32 | PN ---
Progress Note, Physician History of Present Illness: stable no new issues - Current Medication List Current Medications: Active Medications Acetaminophen (Tylenol -) 650 mg PO Q6H PRN PRN Reason: FEVER Aripiprazole (Abilify) 5 mg PO DAILY REPLACED BY [facility] Last Admin: 01/16/19 10:38 Dose: 5 mg Benztropine Mesylate (Cogentin -) 0.5 mg PO HS REPLACED BY [facility] Last Admin: 01/15/19 21:32 Dose: 0.5 mg Furosemide (Lasix -) 20 mg PO DAILY REPLACED BY [facility] Last Admin: 01/16/19 10:38 Dose: 20 mg Haloperidol (Haldol -) 0.5 mg PO DAILY REPL[facility]ED BY [facility] Last Admin: 01/16/19 10:38 Dose: 0.5 mg Insulin Aspart (Novolog Vial Sliding Scale -) 1 vial SQ BID REPLACED BY [facility]; Protocol Last Admin: 01/16/19 10:47 Dose: 4 units Insulin Aspart (Novolog Vial Sliding Scale -) 1 vial SQ [facility] REPLACED BY [facility]; Protocol Last Admin: 01/16/19 10:33 Dose: Not Given Metoprolol Tartrate (Lopressor -) 25 mg PO BID REPLACED BY [facility] Last Admin: 01/16/19 10:39 Dose: Not Given Pantoprazole Sodium (Protonix -) 20 mg PO BID REPLACED BY [facility] Last Admin: 01/16/19 10:38 Dose: 20 mg Rivaroxaban (Xarelto) 20 mg PO DAILY@1800 REPLACED BY [facility] - Objective Vital Signs: Vital Signs Temperature 98.0 F 01/16/19 04:00 Pulse Rate 89 01/16/19 04:00 Respiratory Rate 20 01/16/19 04:00 Blood Pressure 98/68 01/16/19 04:00 O2 Sat by Pulse Oximetry (%) 97 01/14/19 10:00 Constitutional: Yes: No Distress, Calm Cardiovascular: Yes: S1, S2 Respiratory: Yes: Regular, CTA Bilaterally Gastrointestinal: Yes: Normal Bowel Sounds, Soft Musculoskeletal: Yes: WNL Extremities: Yes: WNL Labs: CBC, BMP 01/13/19 12:10 01/13/19 12:10 Assessment/Plan Problem List - Problems (1) Afib Code(s): I48.91 - UNSPECIFIED ATRIAL FIBRILLATION Qualifiers: Atrial fibrillation type: chronic Qualified Code(s): I48.2 - Chronic atrial fibrillation (2) Ataxia Code(s): R27.0 - ATAXIA, UNSPECIFIED (3) Diabetes Code(s): E11.9 - TYPE 2 DIABETES MELLITUS WITHOUT COMPLICATIONS (4) HTN (hypertension) Code(s): I10 - ESSENTIAL (PRIMARY) HYPERTENSION (5) Osteomyelitis Code(s): M86.9 - OSTEOMYELITIS, UNSPECIFIED (6) Schizophrenia Code(s): F20.9 - SCHIZOPHRENIA, UNSPECIFIED plan continue current mgmt await for all the results rest as per the team
[2019-01-16] MEDS: RIVAROXABAN 20 MG TABLET PO SCH (17:50)
[2019-01-16] MEDS ORDERED: METOPROLOL TARTRATE 25 MG TABLET (FP) PO ONE (19:15)
--- NOTE | 2019-01-16 20:34 | PN ---
Progress Note, Physician - Current Medication List Current Medications: Active Medications Acetaminophen (Tylenol -) 650 mg PO Q6H PRN PRN Reason: FEVER Aripiprazole (Abilify) 5 mg PO DAILY [facility] Last Admin: 01/16/19 10:38 Dose: 5 mg Benztropine Mesylate (Cogentin -) 0.5 mg PO HS [facility] Last Admin: 01/15/19 21:32 Dose: 0.5 mg Furosemide (Lasix -) 20 mg PO DAILY [facility] Last Admin: 01/16/19 10:38 Dose: 20 mg Haloperidol (Haldol -) 0.5 mg PO DAILY [facility] Last Admin: 01/16/19 10:38 Dose: 0.5 mg Insulin Aspart (Novolog Vial Sliding Scale -) 1 vial SQ BID [facility]; Protocol Last Admin: 01/16/19 10:47 Dose: 4 units Insulin Aspart (Novolog Vial Sliding Scale -) 1 vial SQ ACHS [facility]; Protocol Last Admin: 01/16/19 17:49 Dose: Not Given Metoprolol Tartrate (Lopressor -) 25 mg PO BID [facility] Last Admin: 01/16/19 10:39 Dose: Not Given Pantoprazole Sodium (Protonix -) 20 mg PO BID [facility] Last Admin: 01/16/19 10:38 Dose: 20 mg Rivaroxaban (Xarelto) 20 mg PO DAILY@1800 [facility] Last Admin: 01/16/19 17:50 Dose: 20 mg - Objective Vital Signs: Vital Signs Temperature 98.6 F 01/16/19 15:21 Pulse Rate 119 H 01/16/19 18:00 Respiratory Rate 23 H 01/16/19 18:00 Blood Pressure 119/78 01/16/19 18:00 O2 Sat by Pulse Oximetry (%) 99 01/16/19 09:00 Constitutional: Yes: No Distress HENT: Yes: Atraumatic Neck: Yes: Supple Cardiovascular: Yes: Regular Rate and Rhythm Respiratory: Yes: CTA Bilaterally Gastrointestinal: Yes: Normal Bowel Sounds Extremities: Yes: WNL Edema: No Peripheral Pulses WNL: Yes Neurological: Yes: Alert, Oriented Labs: CBC, BMP 01/13/19 12:10 01/13/19 12:10 Problem List - Problems (1) Afib Assessment/Plan: meds getting adjusted rapid afib today Code(s): I48.91 - UNSPECIFIED ATRIAL FIBRILLATION Qualifiers: Atrial fibrillation type: persistent Qualified Code(s): I48.1 - Persistent atrial fibrillation (2) Ataxia Assessment/Plan: pt eval Code(s): R27.0 - ATAXIA, UNSPECIFIED (3) Diabetes Code(s): E11.9 - TYPE 2 DIABETES MELLITUS WITHOUT COMPLICATIONS (4) HTN (hypertension) Code(s): I10 - ESSENTIAL (PRIMARY) HYPERTENSION Qualifiers: Hypertension type: essential hypertension Qualified Code(s): I10 - Essential (primary) hypertension (5) Osteomyelitis Code(s): M86.9 - OSTEOMYELITIS, UNSPECIFIED (6) Schizophrenia Code(s): F20.9 - SCHIZOPHRENIA, UNSPECIFIED
--- NOTE | 2019-01-16 20:37 | DS ---
Physical Examination Vital Signs: Vital Signs Temperature 98.6 F 01/16/19 15:21 Pulse Rate 119 H 01/16/19 18:00 Respiratory Rate 23 H 01/16/19 18:00 Blood Pressure 119/78 01/16/19 18:00 O2 Sat by Pulse Oximetry (%) 99 01/16/19 09:00 Labs: CBC, BMP 01/13/19 12:10 01/13/19 12:10 Discharge Summary Reason For Visit: AFIB ATAXIA MRSA Current Active Problems Afib (Acute) Anemia (Acute) Ataxia (Acute) Demand ischemia (Acute) Condition: Stable - Instructions - Home Medications Comprehensive Discharge Medication List: Ambulatory Orders Acetaminophen [Tylenol] 650 mg PO Q6H PRN 09/05/18 Aripiprazole [Abilify -] 5 mg PO DAILY 09/05/18 Furosemide [Lasix] 20 mg PO DAILY 5 Days #5 tablet 12/09/18 Benztropine Mesylate [Cogentin -] 0.5 mg PO DAILY 01/13/19 Haloperidol [Haldol -] 0.5 mg PO DAILY 01/13/19 Insulin Sliding Scale [Novolog Vial Sliding Scale -] 0 unit SQ BID 01/13/19 Omeprazole Magnesium [Prilosec Otc] 20 mg PO BID 01/13/19 Metoprolol Tartrate [Lopressor -] 25 mg PO BID #60 tablet 01/16/19 Rivaroxaban [Xarelto -] 20 mg PO DAILY@1800 #30 tablet 01/16/19 PATIENT WILL GET BENEFIT IF GOES TO REHAB
[2019-01-16] MEDS: BENZTROPINE MESYLATE 0.5 MG TABLET (FP) PO SCH (21:52)
[2019-01-16] MEDS: ACETAMINOPHEN 325 MG TABLET (FP) PO PRN (23:14)
[2019-01-17] MEDS: INSULIN SLIDING SCALE (NOVOLOG) 1 VIAL SQ SCH ×6 (06:07→21:52)
[2019-01-17 06:30] LABS: BASO % 0.4 % (0-2.0); EOS % 0.4 % (0-4.5); HEMATOCRIT 24.3 % (35.4-49); HEMOGLOBIN 7.9 GM/dL (11.7-16.9); LYMPH % 2.8 % (8-40); MCH 22.6 pg (25.7-33.7); MCHC 32.6 g/dl (32.0-35.9); MEAN CELL VOLUME 69.4 fl (80-96); MEAN PLT VOLUME 8.7 fl (7.5-11.1); MONO % 8.9 % (3.8-10.2); NEUT % 87.5 % (42.8-82.8); PLATELET COUNT 173 K/MM3 (134-434); RBC 3.51 M/mm3 (4.00-5.60); RDW 20.4 % (11.9-15.9); WHITE BLOOD COUNT 9.9 K/mm3 (4.0-10.0)
--- NOTE | 2019-01-17 09:06 | PN ---
Progress Note (short form) - Note Progress Note: History of Present Illness - History of Present Illness Initial Comments: Julio Theodore is a 68yM w PMHx HTN, DM, afib, schizohrenia, and L leg osteomyelitis presenting with ataxia. Pt is poor historian. He noticed trouble walking and balancing with R leg heaviness for the last 2 weeks. No leg pain. Went to a neurologist 6d ago propr to admission, told to go to ED for lung opacity. Denies recent alcohol use. Denies fever, cough, SOB, chest/AB pain, urinary/bowel mvmt changes. I was consulted by the emergency room resident regarding the case and advised admission for the patient; he completed noncontrast head CT which showed left frontal chronic infarct. Advised MRI brain to rule out new acute infarcts. MRI not able to be completed, reportedly with metal, ordered CT head and CT lumbar spine as well. Discussed with nurse. CT head completed and did not show any acute changes. CT of the lumbar spine also completed and reviewed no evidence of spondylolisthesis, no central spinal stenosis stenosis, no significant disc displacement arthritic changes noted, rresults reviewed with patient in detail. patient plan for discharge, reports moving his legs symmetrically bilateral. Active Medications Acetaminophen (Tylenol -) 650 mg PO Q6H PRN PRN Reason: FEVER Last Admin: 01/16/19 23:14 Dose: 650 mg Aripiprazole (Abilify) 5 mg PO DAILY [facility] Last Admin: 01/16/19 10:38 Dose: 5 mg Benztropine Mesylate (Cogentin -) 0.5 mg PO HS [facility] Last Admin: 01/16/19 21:52 Dose: 0.5 mg Furosemide (Lasix -) 20 mg PO DAILY [facility] Last Admin: 01/16/19 10:38 Dose: 20 mg Haloperidol (Haldol -) 0.5 mg PO DAILY [facility] Last Admin: 01/16/19 10:38 Dose: 0.5 mg Insulin Aspart (Novolog Vial Sliding Scale -) 1 vial SQ BID [facility]; Protocol Last Admin: 01/16/19 21:53 Dose: 2 units Insulin Aspart (Novolog Vial Sliding Scale -) 1 vial SQ ACHS [facility]; Protocol Last Admin: 01/17/19 06:07 Dose: Not Given Metoprolol Tartrate (Lopressor -) 25 mg PO BID [facility] Last Admin: 01/16/19 21:49 Dose: 25 mg Pantoprazole Sodium (Protonix -) 20 mg PO BID [facility] Last Admin: 01/16/19 21:49 Dose: 20 mg Rivaroxaban (Xarelto) 20 mg PO DAILY@1800 [facility] Last Admin: 01/16/19 17:50 Dose: 20 mg *Physical Exam Vital Signs Period Temp Pulse Resp BP Sys/Stock Pulse Ox Last 24 Hr 98.6 F-100.9 F 88-119 20-23 109-128/71-90 99 - Physical Exam General Appearance: Yes: Nourished, Appropriately Dressed. No: Apparent Distress HEENT: positive: EOMI, AARON, Hearing Grossly Normal. negative: Scleral Icterus (R), Scleral Icterus (L), Nasal Congestion, Rhinorrhea Respiratory/Chest: positive: Wheezing (RLL), Other (coarse breath sounds RLL). negative: Chest Tender, Respiratory Distress, Accessory Muscle Use, Labored Respiration, Crackles, Rales, Rhonchi, Stridor Cardiovascular: positive: Regular Rate, S1, S2, Irregular. negative: Edema, Murmur Vascular Pulses: Dorsalis-Pedis (R): 3+, Doralis-Pedis (L): 3+ Extremity: positive: Normal Capillary Refill, Swelling (+1 pitting edema to knees, L>R), Other (Legs: 3/5 strength R leg hip flexion, 5/5 L leg hip flexion , 5/5 darion dorsi/plantar flexion. Normal sensation, no LE rash, laceration, erythema). negative: Erythema Integumentary: positive: Normal Color. negative: Rash, Ecchymosis Neurologic: cranial nerves intact, right lower extremity 3/5 otherwise 5/5, sensory intact, finger to nose normal, gait deferred Vital Signs Period Temp Pulse Resp BP Sys/Stock Pulse Ox Last 24 Hr 98.6 F-100.9 F 88-119 20-23 109-128/71-90 99 Medical Decision Making Julio Theodore is a 68yM w PMHx HTN, DM, afib, schizohrenia, and L leg osteomyelitis presenting with ataxia. Pt is poor historian. He noticed trouble walking and balancing with R leg heaviness for the last 2 weeks. No leg pain. Went to a neurologist 6d ago prior to admission, told to go to ED for lung opacity. Denies recent alcohol use. Denies fever, cough, SOB, chest/AB pain, urinary/bowel mvmt changes. I was consulted by the emergency room resident regarding the case and advised admission for the patient he completed noncontrast head CT which showed left frontal chronic infarct. Advised MRI brain to rule out new acute infarcts.MRI not able to be completed, reportedly with metal, will order CT head and will check CT lumbar spine as well. Discussed with nurse. CT head completed and did not show any acute changes. CT of the lumbar spine also completed and reviewed no evidence of spondylolisthesis, no central spinal stenosis stenosis, no significant disc displacement arthritic changes noted. On multiple psych medications, mental status seems at baseline. Monitor blood pressure, maintain normotensive range. imaging results discussed with patient in detail, plan for discharge, fall precautions, follow-up with primary care physician recommended
[2019-01-17] MEDS ORDERED: PT OWN MED DRAWER 7, Y5N ONE ×3 (09:28→17:31)
[2019-01-17] MEDS: HALOPERIDOL 0.5 MG TABLET PO SCH (09:44)
[2019-01-17] MEDS: ARIPiprazole 5 MG TABLET (FP) PO SCH (09:44)
[2019-01-17] MEDS: METOPROLOL TARTRATE 25 MG TABLET (FP) PO SCH (09:44)
--- NOTE | 2019-01-17 09:47 | PN ---
Progress Note, Physician History of Present Illness: Now in rapid afib, asymptomatic and denies chest pain, dyspnea, palpitations. Leg heaviness and gait instability has resolved, imaging unrevealing. - Current Medication List Current Medications: Active Medications Acetaminophen (Tylenol -) 650 mg PO Q6H PRN PRN Reason: FEVER Last Admin: 01/16/19 23:14 Dose: 650 mg Aripiprazole (Abilify) 5 mg PO DAILY [facility] Last Admin: 01/16/19 10:38 Dose: 5 mg Benztropine Mesylate (Cogentin -) 0.5 mg PO HS [facility] Last Admin: 01/16/19 21:52 Dose: 0.5 mg Furosemide (Lasix -) 20 mg PO DAILY [facility] Last Admin: 01/16/19 10:38 Dose: 20 mg Haloperidol (Haldol -) 0.5 mg PO DAILY [facility] Last Admin: 01/16/19 10:38 Dose: 0.5 mg Insulin Aspart (Novolog Vial Sliding Scale -) 1 vial SQ BID [facility]; Protocol Last Admin: 01/16/19 21:53 Dose: 2 units Insulin Aspart (Novolog Vial Sliding Scale -) 1 vial SQ [facility]; Protocol Last Admin: 01/17/19 06:07 Dose: Not Given Metoprolol Tartrate (Lopressor -) 25 mg PO BID [facility] Last Admin: 01/16/19 21:49 Dose: 25 mg Pantoprazole Sodium (Protonix -) 20 mg PO BID [facility] Last Admin: 01/16/19 21:49 Dose: 20 mg Rivaroxaban (Xarelto) 20 mg PO DAILY@1800 [facility] Last Admin: 01/16/19 17:50 Dose: 20 mg - Objective Vital Signs: Vital Signs Temperature 100.9 F H 01/16/19 22:00 Pulse Rate 106 H 01/17/19 08:00 Respiratory Rate 23 H 01/16/19 20:34 Blood Pressure 109/90 01/17/19 08:00 O2 Sat by Pulse Oximetry (%) 99 01/16/19 20:34 Constitutional: Yes: No Distress, Calm, Thin Neck: Yes: Supple Cardiovascular: Yes: Tachycardia, Pulse Irregular Respiratory: Yes: Regular, Diminished Gastrointestinal: Yes: Normal Bowel Sounds, Soft Edema: No Labs: CBC, BMP 01/17/19 05:20 01/13/19 12:10 - ....Imaging EKG: Report Reviewed (Tele: Rapid afib) Problem List - Problems (1) Demand ischemia Code(s): I24.8 - OTHER FORMS OF ACUTE ISCHEMIC HEART DISEASE (2) Anemia Code(s): D64.9 - ANEMIA, UNSPECIFIED Qualifiers: Anemia type: unspecified type Qualified Code(s): D64.9 - Anemia, unspecified Assessment/Plan CT of the lumbar spine also completed and reviewed no evidence of spondylolisthesis, no central spinal stenosis stenosis, no significant disc displacement arthritic changes noted - Problems (1) Afib Assessment/Plan: Increased Lopressor 50 bid, IV Cardizem as needed for additional rate-control, decreased Lasix 20 qd, started Xarelto 20 qPM given [id number], trops downtrending Code(s): I48.91 - UNSPECIFIED ATRIAL FIBRILLATION Qualifiers: Atrial fibrillation type: chronic Qualified Code(s): I48.2 - Chronic atrial fibrillation (2) Ataxia Assessment/Plan: pt eval, unable to obtain brain MRI due to metal Code(s): R27.0 - ATAXIA, UNSPECIFIED (3) Diabetes Assessment/Plan: insulin sliding sacle and bgms Code(s): E11.9 - TYPE 2 DIABETES MELLITUS WITHOUT COMPLICATIONS (4) HTN (hypertension) Code(s): I10 - ESSENTIAL (PRIMARY) HYPERTENSION (5) Osteomyelitis Code(s): M86.9 - OSTEOMYELITIS, UNSPECIFIED (6) Schizophrenia Code(s): F20.9 - SCHIZOPHRENIA, UNSPECIFIED On Abilify, Haldol and Cogentin
[2019-01-17] MEDS: FUROSEMIDE 20 MG TABLET (FP) PO SCH (09:50)
[2019-01-17] MEDS: PANTOPRAZOLE 20 MG TABLET (FP) PO SCH ×2 (09:51→21:17)
[2019-01-17] MEDS: METOPROLOL TARTRATE 50 MG TABLET (FP) PO SCH ×3 (10:59→21:15)
--- NOTE | 2019-01-17 12:41 | PN ---
Progress Note, Physician History of Present Illness: events noted patient dropped his h and h low grade fever blood cx send pending went into rapid afib - Current Medication List Current Medications: Active Medications Acetaminophen (Tylenol -) 650 mg PO Q6H PRN PRN Reason: FEVER Last Admin: 01/16/19 23:14 Dose: 650 mg Aripiprazole (Abilify) 5 mg PO DAILY [facility] Last Admin: 01/17/19 09:44 Dose: 5 mg Benztropine Mesylate (Cogentin -) 0.5 mg PO HS [facility] Last Admin: 01/16/19 21:52 Dose: 0.5 mg Diltiazem HCl (Cardizem Injection -) 10 mg IVPUSH Q4H PRN PRN Reason: TACHYCARDIA Furosemide (Lasix -) 20 mg PO DAILY [facility] Last Admin: 01/17/19 09:50 Dose: 20 mg Haloperidol (Haldol -) 0.5 mg PO DAILY [facility] Last Admin: 01/17/19 09:44 Dose: 0.5 mg Insulin Aspart (Novolog Vial Sliding Scale -) 1 vial SQ BID [facility]; Protocol Last Admin: 01/16/19 21:53 Dose: 2 units Insulin Aspart (Novolog Vial Sliding Scale -) 1 vial SQ ACHS [facility]; Protocol Last Admin: 01/17/19 11:06 Dose: 4 units Metoprolol Tartrate (Lopressor -) 50 mg PO BID [facility] Last Admin: 01/17/19 10:59 Dose: 50 mg Pantoprazole Sodium (Protonix -) 20 mg PO BID [facility] Last Admin: 01/17/19 09:51 Dose: 20 mg Rivaroxaban (Xarelto) 20 mg PO DAILY@1800 [facility] Last Admin: 01/16/19 17:50 Dose: 20 mg - Objective Vital Signs: Vital Signs Temperature 100.9 F H 01/16/19 22:00 Pulse Rate 106 H 01/17/19 08:00 Respiratory Rate 23 H 01/17/19 09:00 Blood Pressure 109/90 01/17/19 08:00 O2 Sat by Pulse Oximetry (%) 99 01/17/19 09:00 Constitutional: Yes: No Distress, Calm Cardiovascular: Yes: Pulse Irregular, S1, S2 Respiratory: Yes: Regular, CTA Bilaterally Gastrointestinal: Yes: Normal Bowel Sounds, Soft Musculoskeletal: Yes: WNL Extremities: Yes: WNL Neurological: Yes: Alert Psychiatric: Yes: Alert Labs: CBC, BMP 01/17/19 05:20 01/13/19 12:10 Assessment/Plan Problem List - Problems (1) Afib Code(s): I48.91 - UNSPECIFIED ATRIAL FIBRILLATION Qualifiers: Atrial fibrillation type: chronic Qualified Code(s): I48.2 - Chronic atrial fibrillation (2) Ataxia Code(s): R27.0 - ATAXIA, UNSPECIFIED (3) Diabetes Code(s): E11.9 - TYPE 2 DIABETES MELLITUS WITHOUT COMPLICATIONS (4) HTN (hypertension) Code(s): I10 - ESSENTIAL (PRIMARY) HYPERTENSION (5) Osteomyelitis Code(s): M86.9 - OSTEOMYELITIS, UNSPECIFIED (6) Schizophrenia Code(s): F20.9 - SCHIZOPHRENIA, UNSPECIFIED plan continue current mgmt blood cx pending close watch rest as per the team
--- NOTE | 2019-01-17 16:38 | DS ---
Physical Examination Vital Signs: Vital Signs Temperature 100.9 F H 01/16/19 22:00 Pulse Rate 106 H 01/17/19 08:00 Respiratory Rate 23 H 01/17/19 09:00 Blood Pressure 109/90 01/17/19 08:00 O2 Sat by Pulse Oximetry (%) 99 01/17/19 09:00 Labs: CBC, BMP 01/17/19 05:20 01/13/19 12:10 Discharge Summary Reason For Visit: AFIB ATAXIA MRSA Current Active Problems Afib (Acute) Anemia (Acute) Ataxia (Acute) Demand ischemia (Acute) Condition: Stable - Instructions - Home Medications Comprehensive Discharge Medication List: Ambulatory Orders Acetaminophen [Tylenol] 650 mg PO Q6H PRN 09/05/18 Aripiprazole [Abilify -] 5 mg PO DAILY 09/05/18 Furosemide [Lasix] 20 mg PO DAILY 5 Days #5 tablet 12/09/18 Benztropine Mesylate [Cogentin -] 0.5 mg PO DAILY 01/13/19 Haloperidol [Haldol -] 0.5 mg PO DAILY 01/13/19 Insulin Sliding Scale [Novolog Vial Sliding Scale -] 0 unit SQ BID 01/13/19 Omeprazole Magnesium [Prilosec Otc] 20 mg PO BID 01/13/19 Metoprolol Tartrate [Lopressor -] 25 mg PO BID #60 tablet 01/16/19 Rivaroxaban [Xarelto -] 20 mg PO DAILY@1800 #30 tablet 01/16/19
--- NOTE | 2019-01-17 16:50 | PN ---
Progress Note, Physician History of Present Illness: clinically no symptoms but in rapid afib counts dropped cancel dc - Current Medication List Current Medications: Active Medications Acetaminophen (Tylenol -) 650 mg PO Q6H PRN PRN Reason: FEVER Last Admin: 01/16/19 23:14 Dose: 650 mg Aripiprazole (Abilify) 5 mg PO DAILY [facility] Last Admin: 01/17/19 09:44 Dose: 5 mg Benztropine Mesylate (Cogentin -) 0.5 mg PO HS [facility] Last Admin: 01/16/19 21:52 Dose: 0.5 mg Diltiazem HCl (Cardizem Injection -) 10 mg IVPUSH Q4H PRN PRN Reason: TACHYCARDIA Furosemide (Lasix -) 20 mg PO DAILY [facility] Last Admin: 01/17/19 09:50 Dose: 20 mg Haloperidol (Haldol -) 0.5 mg PO DAILY [facility] Last Admin: 01/17/19 09:44 Dose: 0.5 mg Insulin Aspart (Novolog Vial Sliding Scale -) 1 vial SQ BID [facility]; Protocol Last Admin: 01/16/19 21:53 Dose: 2 units Insulin Aspart (Novolog Vial Sliding Scale -) 1 vial SQ ACHS [facility]; Protocol Last Admin: 01/17/19 16:23 Dose: 2 units Metoprolol Tartrate (Lopressor -) 50 mg PO BID [facility] Last Admin: 01/17/19 10:59 Dose: 50 mg Pantoprazole Sodium (Protonix -) 20 mg PO BID [facility] Last Admin: 01/17/19 09:51 Dose: 20 mg Rivaroxaban (Xarelto) 20 mg PO DAILY@1800 [facility] Last Admin: 01/16/19 17:50 Dose: 20 mg - Objective Vital Signs: Vital Signs Temperature 100.9 F H 01/16/19 22:00 Pulse Rate 106 H 01/17/19 08:00 Respiratory Rate 23 H 01/17/19 09:00 Blood Pressure 109/90 01/17/19 08:00 O2 Sat by Pulse Oximetry (%) 99 01/17/19 09:00 Constitutional: Yes: No Distress HENT: Yes: Atraumatic Neck: Yes: Supple Cardiovascular: Yes: Regular Rate and Rhythm Respiratory: Yes: CTA Bilaterally Gastrointestinal: Yes: Normal Bowel Sounds Extremities: Yes: WNL Edema: No Peripheral Pulses WNL: Yes Neurological: Yes: Alert, Oriented Labs: CBC, BMP 01/17/19 05:20 01/13/19 12:10 Problem List - Problems (1) Afib Assessment/Plan: on meds cardiology consult fu troponins Code(s): I48.91 - UNSPECIFIED ATRIAL FIBRILLATION Qualifiers: Atrial fibrillation type: chronic Qualified Code(s): I48.2 - Chronic atrial fibrillation (2) Ataxia Assessment/Plan: pt eval Code(s): R27.0 - ATAXIA, UNSPECIFIED (3) Diabetes Assessment/Plan: insulin sliding scale and bgms Code(s): E11.9 - TYPE 2 DIABETES MELLITUS WITHOUT COMPLICATIONS (4) HTN (hypertension) Code(s): I10 - ESSENTIAL (PRIMARY) HYPERTENSION (5) Osteomyelitis Code(s): M86.9 - OSTEOMYELITIS, UNSPECIFIED (6) Schizophrenia Code(s): F20.9 - SCHIZOPHRENIA, UNSPECIFIED (7) Anemia Assessment/Plan: stool occult 2 u prbc gi consult Code(s): D64.9 - ANEMIA, UNSPECIFIED Qualifiers: Anemia type: unspecified type Qualified Code(s): D64.9 - Anemia, unspecified
[2019-01-17] MEDS: RIVAROXABAN 20 MG TABLET PO SCH (17:32)
[2019-01-17] MEDS: BENZTROPINE MESYLATE 0.5 MG TABLET (FP) PO SCH (21:15)
[2019-01-17 21:23] LABS: URINE APPEARANCE CLEAR; URINE BILIRUBIN NEGATIVE (NEGATIVE); URINE COLOR YELLOW; URINE GLUCOSE (UA) NEGATIVE (NEGATIVE); URINE KETONE NEGATIVE (NEGATIVE); URINE LEUK ESTERASE NEGATIVE (NEGATIVE); URINE NITRITE NEGATIVE (NEGATIVE); URINE PROTEIN TRACE (NEGATIVE); URINE UROBILINOGEN 0.2 mg/dL (0.2-1.0)
[2019-01-18 06:16] LABS: BASO % 0.5 % (0-2.0); EOS % 1.1 % (0-4.5); HEMATOCRIT 27.3 % (35.4-49); MCH 23.4 pg (25.7-33.7); MCHC 32.9 g/dl (32.0-35.9); MEAN CELL VOLUME 71.1 fl (80-96); MEAN PLT VOLUME 8.5 fl (7.5-11.1); MONO % 8.6 % (3.8-10.2); NEUT % 81.8 % (42.8-82.8); PLATELET COUNT 183 K/MM3 (134-434); RBC 3.84 M/mm3 (4.00-5.60); RDW 22.7 % (11.9-15.9); WHITE BLOOD COUNT 8.8 K/mm3 (4.0-10.0)
[2019-01-18] MEDS: INSULIN SLIDING SCALE (NOVOLOG) 1 VIAL SQ SCH ×5 (06:45→20:37)
[2019-01-18] MEDS: PANTOPRAZOLE 20 MG TABLET (FP) PO SCH ×2 (10:31→21:07)
[2019-01-18] MEDS: FUROSEMIDE 20 MG TABLET (FP) PO SCH (10:31)
[2019-01-18] MEDS: METOPROLOL TARTRATE 50 MG TABLET (FP) PO SCH ×2 (10:31→21:06)
[2019-01-18] MEDS: HALOPERIDOL 0.5 MG TABLET PO SCH (10:32)
[2019-01-18] MEDS: ARIPiprazole 5 MG TABLET (FP) PO SCH (10:34)
--- NOTE | 2019-01-18 11:17 | PN ---
Progress Note (short form) - Note Progress Note: History of Present Illness - History of Present Illness Initial Comments: Julio Theodore is a 68yM w PMHx HTN, DM, afib, schizohrenia, and L leg osteomyelitis presenting with ataxia. Pt is poor historian. He noticed trouble walking and balancing with R leg heaviness for the last 2 weeks. No leg pain. Went to a neurologist 6d ago propr to admission, told to go to ED for lung opacity. Denies recent alcohol use. Denies fever, cough, SOB, chest/AB pain, urinary/bowel mvmt changes. I was consulted by the emergency room resident regarding the case and advised admission for the patient; he completed noncontrast head CT which showed left frontal chronic infarct. Advised MRI brain to rule out new acute infarcts. MRI not able to be completed, reportedly with metal, ordered CT head and CT lumbar spine as well. Discussed with nurse. CT head completed and did not show any acute changes. CT of the lumbar spine also completed and reviewed no evidence of spondylolisthesis, no central spinal stenosis stenosis, no significant disc displacement arthritic changes noted, results reviewed with patient in detail. Patient plan for discharge, but with Afib and therefore remains in hospital. Discussed with Cardiology this AM. Patient reports moving his legs symmetrically bilateral. No further interventions from neuro perspective at this time. Allergies Allergy/AdvReac Type Severity Reaction Status Date / Time chlorpromazine Allergy Verified 01/13/19 13:30 [From Thorazine] torazine Allergy Uncoded 01/13/19 09:56 Active Medications Acetaminophen (Tylenol -) 650 mg PO Q6H PRN PRN Reason: FEVER Last Admin: 01/16/19 23:14 Dose: 650 mg Aripiprazole (Abilify) 5 mg PO DAILY [facility] Last Admin: 01/18/19 10:34 Dose: 5 mg Benztropine Mesylate (Cogentin -) 0.5 mg PO HS [facility] Last Admin: 01/17/19 21:15 Dose: 0.5 mg Diltiazem HCl (Cardizem Injection -) 10 mg IVPUSH Q4H PRN PRN Reason: TACHYCARDIA Furosemide (Lasix -) 20 mg PO DAILY [facility] Last Admin: 01/18/19 10:31 Dose: 20 mg Haloperidol (Haldol -) 0.5 mg PO DAILY [facility] Last Admin: 01/18/19 10:32 Dose: 0.5 mg Insulin Aspart (Novolog Vial Sliding Scale -) 1 vial SQ BID [facility]; Protocol Last Admin: 01/17/19 21:50 Dose: 4 units Insulin Aspart (Novolog Vial Sliding Scale -) 1 vial SQ ACHS [facility]; Protocol Last Admin: 01/18/19 06:45 Dose: 2 units Metoprolol Tartrate (Lopressor -) 50 mg PO BID [facility] Last Admin: 01/18/19 10:31 Dose: 50 mg Pantoprazole Sodium (Protonix -) 20 mg PO BID [facility] Last Admin: 01/18/19 10:31 Dose: 20 mg Rivaroxaban (Xarelto) 20 mg PO DAILY@1800 [facility] Last Admin: 01/17/19 17:32 Dose: 20 mg *Physical Exam Vital Signs Period Temp Pulse Resp BP Sys/Stock Pulse Ox Last 24 Hr 98.2 F-99.1 F 84-98 12-25 107-124/47-83 99 - Physical Exam General Appearance: Yes: Nourished, Appropriately Dressed. No: Apparent Distress HEENT: positive: EOMI, AARON, Hearing Grossly Normal. negative: Scleral Icterus (R), Scleral Icterus (L), Nasal Congestion, Rhinorrhea Respiratory/Chest: positive: Wheezing (RLL), Other (coarse breath sounds RLL). negative: Chest Tender, Respiratory Distress, Accessory Muscle Use, Labored Respiration, Crackles, Rales, Rhonchi, Stridor Cardiovascular: positive: Regular Rate, S1, S2, Irregular. negative: Edema, Murmur Vascular Pulses: Dorsalis-Pedis (R): 3+, Doralis-Pedis (L): 3+ Extremity: positive: Normal Capillary Refill, Swelling (+1 pitting edema to knees, L>R), Other (Legs: 3/5 strength R leg hip flexion, 5/5 L leg hip flexion , 5/5 darion dorsi/plantar flexion. Normal sensation, no LE rash, laceration, erythema). negative: Erythema Integumentary: positive: Normal Color. negative: Rash, Ecchymosis Neurologic: cranial nerves intact, right lower extremity 3/5 otherwise 5/5, sensory intact, finger to nose normal, gait deferred CBCD WBC 8.8 K/mm3 (4.0-10.0) 01/18/19 05:40 RBC 3.84 M/mm3 (4.00-5.60) L 01/18/19 05:40 Hgb 9.0 GM/dL (11.7-16.9) L 01/18/19 05:40 Hct 27.3 % (35.4-49) L 01/18/19 05:40 MCV 71.1 fl (80-96) L 01/18/19 05:40 MCHC 32.9 g/dl (32.0-35.9) 01/18/19 05:40 RDW 22.7 % (11.9-15.9) H 01/18/19 05:40 Plt Count 183 K/MM3 (134-434) 01/18/19 05:40 MPV 8.5 fl (7.5-11.1) 01/18/19 05:40 CMP Sodium 135 mmol/L (136-145) L 01/13/19 12:10 Potassium 3.8 mmol/L (3.5-5.1) 01/13/19 12:10 Chloride 101 mmol/L (98-107) 01/13/19 12:10 Carbon Dioxide 26 mmol/L (21-32) 01/13/19 12:10 Anion Gap 8 MMOL/L (8-16) 01/13/19 12:10 BUN 13.9 mg/dL (7-18) 01/13/19 12:10 Creatinine 0.7 mg/dL (0.55-1.3) 01/13/19 12:10 Random Glucose 92 mg/dL (74-106) 01/13/19 12:10 Calcium 8.3 mg/dL (8.5-10.1) L 01/13/19 12:10 Total Bilirubin 0.9 mg/dL (0.2-1) 01/13/19 12:10 AST 15 U/L (15-37) 01/13/19 12:10 ALT 16 U/L (13-61) 01/13/19 12:10 Alkaline Phosphatase 117 U/L (45-117) 01/13/19 12:10 Total Protein 6.9 g/dl (6.4-8.2) 01/13/19 12:10 Albumin 2.9 g/dl (3.4-5.0) L 01/13/19 12:10 CARDIAC ENZYMES Creatine Kinase 29 U/L (26-308) 01/13/19 12:10 Troponin I 0.03 ng/ml (0.00-0.05) 01/17/19 21:00 Medical Decision Making Julio Theodore is a 68yM w PMHx HTN, DM, afib, schizohrenia, and L leg osteomyelitis presenting with ataxia. Pt is poor historian. He noticed trouble walking and balancing with R leg heaviness for the last 2 weeks. No leg pain. Went to a neurologist 6d ago prior to admission, told to go to ED for lung opacity. Denies recent alcohol use. Denies fever, cough, SOB, chest/AB pain, urinary/bowel mvmt changes. I was consulted by the emergency room resident regarding the case and advised admission for the patient he completed noncontrast head CT which showed left frontal chronic infarct. Advised MRI brain to rule out new acute infarcts.MRI not able to be completed, reportedly with metal, will order CT head and will check CT lumbar spine as well. Discussed with nurse. CT head completed and did not show any acute changes. CT of the lumbar spine also completed and reviewed no evidence of spondylolisthesis, no central spinal stenosis stenosis, no significant disc displacement arthritic changes noted. On multiple psych medications, mental status seems at baseline. Monitor blood pressure, maintain normotensive range. Patient plan for discharge, but with Afib and therefore remains in hospital. Discussed with Cardiology this AM. Patient reports moving his legs symmetrically bilateral. No further interventions from neuro perspective.
--- NOTE | 2019-01-18 11:33 | PN ---
Progress Note, Physician Chief Complaint: Pt A&Ox3; c/o right leg pain from hip to knee for th past week. No palpitations , dizziness, chest pain, or dyspnea. History of Present Illness: 68 M with h/o HTN, DM, Afib, schizohrenia, and L leg osteomyelitis, presenting to ED with difficulty ambulating. Pt states that for the past 2 weeks, he has felt like his R leg is weaker than his L. When he tries to walk, he feels like his legs are going to give out. Pt denies any dizziness. Denies weakness in either arm. Denies back pain. Denies incontinence. Denies F/C. No recent falls. - Physicial Exam PE: - Current Medication List Current Medications: Active Medications Acetaminophen (Tylenol -) 650 mg PO Q6H PRN PRN Reason: FEVER Last Admin: 01/16/19 23:14 Dose: 650 mg Aripiprazole (Abilify) 5 mg PO DAILY [facility] Last Admin: 01/18/19 10:34 Dose: 5 mg Benztropine Mesylate (Cogentin -) 0.5 mg PO HS [facility] Last Admin: 01/17/19 21:15 Dose: 0.5 mg Diltiazem HCl (Cardizem Injection -) 10 mg IVPUSH Q4H PRN PRN Reason: TACHYCARDIA Furosemide (Lasix -) 20 mg PO DAILY [facility] Last Admin: 01/18/19 10:31 Dose: 20 mg Haloperidol (Haldol -) 0.5 mg PO DAILY [facility] Last Admin: 01/18/19 10:32 Dose: 0.5 mg Insulin Aspart (Novolog Vial Sliding Scale -) 1 vial SQ BID [facility]; Protocol Last Admin: 01/17/19 21:50 Dose: 4 units Insulin Aspart (Novolog Vial Sliding Scale -) 1 vial SQ ACHS [facility]; Protocol Last Admin: 01/18/19 06:45 Dose: 2 units Metoprolol Tartrate (Lopressor -) 50 mg PO BID [facility] Last Admin: 01/18/19 10:31 Dose: 50 mg Pantoprazole Sodium (Protonix -) 20 mg PO BID [facility] Last Admin: 01/18/19 10:31 Dose: 20 mg Rivaroxaban (Xarelto) 20 mg PO DAILY@1800 [facility] Last Admin: 01/17/19 17:32 Dose: 20 mg - Objective Vital Signs: Vital Signs Temperature 98.2 F 01/18/19 06:00 Pulse Rate 90 01/18/19 06:00 Respiratory Rate 18 01/18/19 06:00 Blood Pressure 118/70 01/18/19 06:00 O2 Sat by Pulse Oximetry (%) 99 01/17/19 21:00 Neurological: Yes: WNL ...Motor Strength: WNL Psychiatric: Yes: WNL Labs: CBC, BMP 01/18/19 05:40 01/13/19 12:10 Abnormal Lab Results 01/17/19 01/18/19 21:45 05:40 RBC 3.84 L Hgb 9.0 L Hct 27.3 L MCV 71.1 L MCH 23.4 L RDW 22.7 H Crossmatch See Detail Problem List - Problems (1) Afib Assessment/Plan: On metoprolol for HR control. ON rivaroxaban for anticoagulation. ECHO for LVEF, chamber sizes, valve status. Code(s): I48.91 - UNSPECIFIED ATRIAL FIBRILLATION Qualifiers: Atrial fibrillation type: chronic Qualified Code(s): I48.2 - Chronic atrial fibrillation (2) Anemia Assessment/Plan: F/u workup for etiology. s/p PRBCs Code(s): D64.9 - ANEMIA, UNSPECIFIED Qualifiers: Anemia type: unspecified type Qualified Code(s): D64.9 - Anemia, unspecified (3) Ataxia Code(s): R27.0 - ATAXIA, UNSPECIFIED (4) Demand ischemia Assessment/Plan: TNI max 0.l5-->0.03 F/u prior cardiac workup. Given multiple CAD risks, consider coronary artery evaluation with stress test. Code(s): I24.8 - OTHER FORMS OF ACUTE ISCHEMIC HEART DISEASE (5) Cellulitis Code(s): L03.90 - CELLULITIS, UNSPECIFIED (6) Diabetic peripheral vascular disease Code(s): E11.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 (7) HTN (hypertension) Code(s): I10 - ESSENTIAL (PRIMARY) HYPERTENSION (8) Schizophrenia Code(s): F20.9 - SCHIZOPHRENIA, UNSPECIFIED
[2019-01-18] MEDS ORDERED: LISINOPRIL 5 MG TABLET (FP) PO ONE ×2 (12:01→17:30)
[2019-01-18 12:18] LABS: ANISOCYTOSIS 3+; MACROCYTOSIS 0; OVALOCYTE 2+; PLATELET ESTIMATE NORMAL; TARGET CELLS 2+
[2019-01-18] MEDS: RIVAROXABAN 20 MG TABLET PO SCH (17:45)
[2019-01-18] MEDS: BENZTROPINE MESYLATE 0.5 MG TABLET (FP) PO SCH (21:06)
--- NOTE | 2019-01-18 21:47 | PN ---
Progress Note, Physician History of Present Illness: No new complaints - Current Medication List Current Medications: Active Medications Acetaminophen (Tylenol -) 650 mg PO Q6H PRN PRN Reason: FEVER Last Admin: 01/16/19 23:14 Dose: 650 mg Aripiprazole (Abilify) 5 mg PO DAILY [facility] Last Admin: 01/18/19 10:34 Dose: 5 mg Benztropine Mesylate (Cogentin -) 0.5 mg PO HS [facility] Last Admin: 01/18/19 21:06 Dose: 0.5 mg Diltiazem HCl (Cardizem Injection -) 10 mg IVPUSH Q4H PRN PRN Reason: TACHYCARDIA Furosemide (Lasix -) 20 mg PO DAILY [facility] Last Admin: 01/18/19 10:31 Dose: 20 mg Haloperidol (Haldol -) 0.5 mg PO DAILY [facility] Last Admin: 01/18/19 10:32 Dose: 0.5 mg Insulin Aspart (Novolog Vial Sliding Scale -) 1 vial SQ BIDI [facility]; Protocol Last Admin: 01/18/19 17:51 Dose: 2 units Lisinopril (Prinivil) 2.5 mg PO DAILY [facility] Metoprolol Tartrate (Lopressor -) 50 mg PO BID [facility] Last Admin: 01/18/19 21:06 Dose: 50 mg Pantoprazole Sodium (Protonix -) 20 mg PO BID [facility] Last Admin: 01/18/19 21:07 Dose: 20 mg Rivaroxaban (Xarelto) 20 mg PO DAILY@1800 [facility] Last Admin: 01/18/19 17:45 Dose: 20 mg - Objective Vital Signs: Vital Signs Temperature 98.4 F 01/18/19 18:00 Pulse Rate 88 01/18/19 20:30 Respiratory Rate 16 01/18/19 20:30 Blood Pressure 112/74 01/18/19 20:30 O2 Sat by Pulse Oximetry (%) 99 01/18/19 20:14 Neck: Yes: WNL, Supple Cardiovascular: Yes: Pulse Irregular Respiratory: Yes: WNL, Regular, CTA Bilaterally Gastrointestinal: Yes: WNL, Normal Bowel Sounds, Soft Labs: CBC, BMP 01/18/19 05:40 01/13/19 12:10 Problem List - Problems (1) Afib Assessment/Plan: Heart rate controlled Cont lopressor/prinivil/cardizem/xarelto Code(s): I48.91 - UNSPECIFIED ATRIAL FIBRILLATION Qualifiers: Atrial fibrillation type: persistent (2) Anemia Assessment/Plan: H/H stable Code(s): D64.9 - ANEMIA, UNSPECIFIED Qualifiers: Anemia type: unspecified type Qualified Code(s): D64.9 - Anemia, unspecified (3) Diastolic dysfunction Assessment/Plan: Cont lasix Code(s): I51.89 - OTHER ILL-DEFINED HEART DISEASES (4) Diabetes Assessment/Plan: Cont sliding scale w/ coverage Code(s): E11.9 - TYPE 2 DIABETES MELLITUS WITHOUT COMPLICATIONS (5) HTN (hypertension) Assessment/Plan: BP stable Code(s): I10 - ESSENTIAL (PRIMARY) HYPERTENSION Qualifiers: Hypertension type: essential hypertension Qualified Code(s): I10 - Essential (primary) hypertension (6) Schizophrenia Assessment/Plan: Cont cogentin/schizophrenia Code(s): F20.9 - SCHIZOPHRENIA, UNSPECIFIED
[2019-01-19] MEDS: INSULIN SLIDING SCALE (NOVOLOG) 1 VIAL SQ SCH ×2 (06:02→17:00)
[2019-01-19] MEDS ORDERED: PT OWN MED DRAWER 7, Y5N ONE (08:03)
[2019-01-19] MEDS: ARIPiprazole 5 MG TABLET (FP) PO SCH (09:48)
[2019-01-19] MEDS: HALOPERIDOL 0.5 MG TABLET PO SCH (09:48)
[2019-01-19] MEDS: LISINOPRIL 5 MG TABLET (FP) PO SCH (09:48)
[2019-01-19] MEDS: PANTOPRAZOLE 20 MG TABLET (FP) PO SCH ×2 (09:49→21:10)
[2019-01-19] MEDS: METOPROLOL TARTRATE 50 MG TABLET (FP) PO SCH ×2 (09:49→21:10)
[2019-01-19] MEDS: FUROSEMIDE 20 MG TABLET (FP) PO SCH (09:50)
--- NOTE | 2019-01-19 11:24 | PN ---
Progress Note (short form) - Note Progress Note: History of Present Illness - History of Present Illness Initial Comments: Julio Theodore is a 68yM w PMHx HTN, DM, afib, schizohrenia, and L leg osteomyelitis presenting with ataxia. Pt is poor historian. He noticed trouble walking and balancing with R leg heaviness for the last 2 weeks. No leg pain. Went to a neurologist 6d ago propr to admission, told to go to ED for lung opacity. Denies recent alcohol use. Denies fever, cough, SOB, chest/AB pain, urinary/bowel mvmt changes. I was consulted by the emergency room resident regarding the case and advised admission for the patient; he completed noncontrast head CT which showed left frontal chronic infarct. Advised MRI brain to rule out new acute infarcts. MRI not able to be completed, reportedly with metal, ordered CT head and CT lumbar spine as well. Discussed with nurse. CT head completed and did not show any acute changes. CT of the lumbar spine also completed and reviewed no evidence of spondylolisthesis, no central spinal stenosis stenosis, no significant disc displacement arthritic changes noted, results reviewed with patient in detail. Patient plan for discharge, but with Afib and therefore remains in hospital. Discussed with Cardiology on Sunday. Patient reports moving his legs symmetrically bilateral. No further interventions from neuro perspective at this time. Continue medical management and optimization. Allergies Allergy/AdvReac Type Severity Reaction Status Date / Time chlorpromazine Allergy Verified 01/13/19 13:30 [From Thorazine] torazine Allergy Uncoded 01/13/19 09:56 Active Medications Acetaminophen (Tylenol -) 650 mg PO Q6H PRN PRN Reason: FEVER Last Admin: 01/16/19 23:14 Dose: 650 mg Aripiprazole (Abilify) 5 mg PO DAILY [facility] Last Admin: 01/19/19 09:48 Dose: 5 mg Benztropine Mesylate (Cogentin -) 0.5 mg PO HS [facility] Last Admin: 01/18/19 21:06 Dose: 0.5 mg Diltiazem HCl (Cardizem Injection -) 10 mg IVPUSH Q4H PRN PRN Reason: TACHYCARDIA Furosemide (Lasix -) 20 mg PO DAILY [facility] Last Admin: 01/19/19 09:50 Dose: 20 mg Haloperidol (Haldol -) 0.5 mg PO DAILY [facility] Last Admin: 01/19/19 09:48 Dose: 0.5 mg Insulin Aspart (Novolog Vial Sliding Scale -) 1 vial SQ BIDI [facility]; Protocol Last Admin: 01/19/19 06:02 Dose: 2 units Lisinopril (Prinivil) 2.5 mg PO DAILY [facility] Last Admin: 01/19/19 09:48 Dose: 2.5 mg Metoprolol Tartrate (Lopressor -) 50 mg PO BID [facility] Last Admin: 01/19/19 09:49 Dose: 50 mg Pantoprazole Sodium (Protonix -) 20 mg PO BID [facility] Last Admin: 01/19/19 09:49 Dose: 20 mg Rivaroxaban (Xarelto) 20 mg PO DAILY@1800 [facility] Last Admin: 01/18/19 17:45 Dose: 20 mg *Physical Exam Vital Signs Period Temp Pulse Resp BP Sys/Stock Pulse Ox Last 24 Hr 98.3 F-98.6 F 82-110 15-24 92-132/54-76 99 - Physical Exam General Appearance: Yes: Nourished, Appropriately Dressed. No: Apparent Distress HEENT: positive: EOMI, AARON, Hearing Grossly Normal. negative: Scleral Icterus (R), Scleral Icterus (L), Nasal Congestion, Rhinorrhea Respiratory/Chest: positive: Wheezing (RLL), Other (coarse breath sounds RLL). negative: Chest Tender, Respiratory Distress, Accessory Muscle Use, Labored Respiration, Crackles, Rales, Rhonchi, Stridor Cardiovascular: positive: Regular Rate, S1, S2, Irregular. negative: Edema, Murmur Vascular Pulses: Dorsalis-Pedis (R): 3+, Doralis-Pedis (L): 3+ Extremity: positive: Normal Capillary Refill, Swelling (+1 pitting edema to knees, L>R), Other (Legs: 3/5 strength R leg hip flexion, 5/5 L leg hip flexion , 5/5 darion dorsi/plantar flexion. Normal sensation, no LE rash, laceration, erythema). negative: Erythema Integumentary: positive: Normal Color. negative: Rash, Ecchymosis Neurologic: cranial nerves intact, right lower extremity 3/5 otherwise 5/5, sensory intact, finger to nose normal, gait deferred CBCD WBC 8.8 K/mm3 (4.0-10.0) 01/18/19 05:40 RBC 3.84 M/mm3 (4.00-5.60) L 01/18/19 05:40 Hgb 9.0 GM/dL (11.7-16.9) L 01/18/19 05:40 Hct 27.3 % (35.4-49) L 01/18/19 05:40 MCV 71.1 fl (80-96) L 01/18/19 05:40 MCHC 32.9 g/dl (32.0-35.9) 01/18/19 05:40 RDW 22.7 % (11.9-15.9) H 01/18/19 05:40 Plt Count 183 K/MM3 (134-434) 01/18/19 05:40 MPV 8.5 fl (7.5-11.1) 01/18/19 05:40 CMP Sodium 135 mmol/L (136-145) L 01/13/19 12:10 Potassium 3.8 mmol/L (3.5-5.1) 01/13/19 12:10 Chloride 101 mmol/L (98-107) 01/13/19 12:10 Carbon Dioxide 26 mmol/L (21-32) 01/13/19 12:10 Anion Gap 8 MMOL/L (8-16) 01/13/19 12:10 BUN 13.9 mg/dL (7-18) 01/13/19 12:10 Creatinine 0.7 mg/dL (0.55-1.3) 01/13/19 12:10 Calcium 8.3 mg/dL (8.5-10.1) L 01/13/19 12:10 Total Bilirubin 0.9 mg/dL (0.2-1) 01/13/19 12:10 AST 15 U/L (15-37) 01/13/19 12:10 ALT 16 U/L (13-61) 01/13/19 12:10 Alkaline Phosphatase 117 U/L (45-117) 01/13/19 12:10 Total Protein 6.9 g/dl (6.4-8.2) 01/13/19 12:10 Albumin 2.9 g/dl (3.4-5.0) L 01/13/19 12:10 Medical Decision Making Julio Theodore is a 68yM w PMHx HTN, DM, afib, schizohrenia, and L leg osteomyelitis presenting with ataxia. Pt is poor historian. He noticed trouble walking and balancing with R leg heaviness for the last 2 weeks. No leg pain. Went to a neurologist 6d ago prior to admission, told to go to ED for lung opacity. Denies recent alcohol use. Denies fever, cough, SOB, chest/AB pain, urinary/bowel mvmt changes. I was consulted by the emergency room resident regarding the case and advised admission for the patient he completed noncontrast head CT which showed left frontal chronic infarct. Advised MRI brain to rule out new acute infarcts.MRI not able to be completed, reportedly with metal, will order CT head and will check CT lumbar spine as well. Discussed with nurse. CT head completed and did not show any acute changes. CT of the lumbar spine also completed and reviewed no evidence of spondylolisthesis, no central spinal stenosis stenosis, no significant disc displacement arthritic changes noted. On multiple psych medications, mental status seems at baseline. Monitor blood pressure, maintain normotensive range. Patient plan for discharge, but with Afib and therefore remains in hospital. Discussed with Cardiology this AM. Patient reports moving his legs symmetrically bilateral. No further interventions from neuro perspective. Continue medical management optimization, reconsult as needed.
--- NOTE | 2019-01-19 13:07 | PN ---
Progress Note, Physician History of Present Illness: afib no new issues - Current Medication List Current Medications: Active Medications Acetaminophen (Tylenol -) 650 mg PO Q6H PRN PRN Reason: FEVER Last Admin: 01/16/19 23:14 Dose: 650 mg Aripiprazole (Abilify) 5 mg PO DAILY [facility] Last Admin: 01/19/19 09:48 Dose: 5 mg Benztropine Mesylate (Cogentin -) 0.5 mg PO HS [facility] Last Admin: 01/18/19 21:06 Dose: 0.5 mg Diltiazem HCl (Cardizem Injection -) 10 mg IVPUSH Q4H PRN PRN Reason: TACHYCARDIA Furosemide (Lasix -) 20 mg PO DAILY [facility] Last Admin: 01/19/19 09:50 Dose: 20 mg Haloperidol (Haldol -) 0.5 mg PO DAILY [facility] Last Admin: 01/19/19 09:48 Dose: 0.5 mg Insulin Aspart (Novolog Vial Sliding Scale -) 1 vial SQ BIDI [facility]; Protocol Last Admin: 01/19/19 06:02 Dose: 2 units Lisinopril (Prinivil) 2.5 mg PO DAILY [facility] Last Admin: 01/19/19 09:48 Dose: 2.5 mg Metoprolol Tartrate (Lopressor -) 50 mg PO BID [facility] Last Admin: 01/19/19 09:49 Dose: 50 mg Pantoprazole Sodium (Protonix -) 20 mg PO BID [facility] Last Admin: 01/19/19 09:49 Dose: 20 mg Rivaroxaban (Xarelto) 20 mg PO DAILY@1800 [facility] Last Admin: 01/18/19 17:45 Dose: 20 mg - Objective Vital Signs: Vital Signs Temperature 98.5 F 01/19/19 06:00 Pulse Rate 106 H 01/19/19 06:00 Respiratory Rate 24 H 01/19/19 09:00 Blood Pressure 92/62 01/19/19 06:00 O2 Sat by Pulse Oximetry (%) 99 01/19/19 09:00 Constitutional: Yes: No Distress, Calm Cardiovascular: Yes: Pulse Irregular Respiratory: Yes: Regular, CTA Bilaterally Musculoskeletal: Yes: WNL Extremities: Yes: Other Neurological: Yes: Alert Psychiatric: Yes: Alert, Other Labs: CBC, BMP 01/18/19 05:40 01/13/19 12:10 Assessment/Plan Assessment/Plan Problem List - Problems (1) Afib Code(s): I48.91 - UNSPECIFIED ATRIAL FIBRILLATION Qualifiers: Atrial fibrillation type: chronic Qualified Code(s): I48.2 - Chronic atrial fibrillation (2) Ataxia Code(s): R27.0 - ATAXIA, UNSPECIFIED (3) Diabetes Code(s): E11.9 - TYPE 2 DIABETES MELLITUS WITHOUT COMPLICATIONS (4) HTN (hypertension) Code(s): I10 - ESSENTIAL (PRIMARY) HYPERTENSION (5) Osteomyelitis Code(s): M86.9 - OSTEOMYELITIS, UNSPECIFIED (6) Schizophrenia Code(s): F20.9 - SCHIZOPHRENIA, UNSPECIFIED plan continue current mgmt blood cx pending close watch rest as per the team
[2019-01-19] MEDS: RIVAROXABAN 20 MG TABLET PO SCH (19:51)
--- NOTE | 2019-01-19 20:14 | PN ---
Progress Note, Physician History of Present Illness: No new complaints - Current Medication List Current Medications: Active Medications Acetaminophen (Tylenol -) 650 mg PO Q6H PRN PRN Reason: FEVER Last Admin: 01/16/19 23:14 Dose: 650 mg Aripiprazole (Abilify) 5 mg PO DAILY [facility] Last Admin: 01/19/19 09:48 Dose: 5 mg Benztropine Mesylate (Cogentin -) 0.5 mg PO HS [facility] Last Admin: 01/18/19 21:06 Dose: 0.5 mg Diltiazem HCl (Cardizem Injection -) 10 mg IVPUSH Q4H PRN PRN Reason: TACHYCARDIA Furosemide (Lasix -) 20 mg PO DAILY [facility] Last Admin: 01/19/19 09:50 Dose: 20 mg Haloperidol (Haldol -) 0.5 mg PO DAILY [facility] Last Admin: 01/19/19 09:48 Dose: 0.5 mg Insulin Aspart (Novolog Vial Sliding Scale -) 1 vial SQ BIDI [facility]; Protocol Last Admin: 01/19/19 17:00 Dose: Not Given Lisinopril (Prinivil) 2.5 mg PO DAILY [facility] Last Admin: 01/19/19 09:48 Dose: 2.5 mg Metoprolol Tartrate (Lopressor -) 50 mg PO BID [facility] Last Admin: 01/19/19 09:49 Dose: 50 mg Pantoprazole Sodium (Protonix -) 20 mg PO BID [facility] Last Admin: 01/19/19 09:49 Dose: 20 mg Rivaroxaban (Xarelto) 20 mg PO DAILY@1800 [facility] Last Admin: 01/19/19 19:51 Dose: 20 mg - Objective Vital Signs: Vital Signs Temperature 98.4 F 01/19/19 12:00 Pulse Rate 91 H 01/19/19 18:06 Respiratory Rate 20 01/19/19 18:06 Blood Pressure 100/64 01/19/19 18:06 O2 Sat by Pulse Oximetry (%) 99 01/19/19 09:00 Constitutional: Yes: Well Nourished Cardiovascular: Yes: Pulse Irregular Respiratory: Yes: WNL, Regular, CTA Bilaterally Gastrointestinal: Yes: WNL, Normal Bowel Sounds, Soft Labs: CBC, BMP 01/18/19 05:40 01/13/19 12:10 Problem List - Problems (1) Afib Assessment/Plan: Heart rate controlled Cont lopressor/prinivil/cardizem/xarelto Code(s): I48.91 - UNSPECIFIED ATRIAL FIBRILLATION Qualifiers: Atrial fibrillation type: persistent (2) Anemia Assessment/Plan: H/H stable Code(s): D64.9 - ANEMIA, UNSPECIFIED Qualifiers: Anemia type: unspecified type Qualified Code(s): D64.9 - Anemia, unspecified (3) Diastolic dysfunction Assessment/Plan: Cont lasix Code(s): I51.89 - OTHER ILL-DEFINED HEART DISEASES (4) Diabetes Assessment/Plan: Cont sliding scale w/ coverage Code(s): E11.9 - TYPE 2 DIABETES MELLITUS WITHOUT COMPLICATIONS (5) HTN (hypertension) Assessment/Plan: BP stable Code(s): I10 - ESSENTIAL (PRIMARY) HYPERTENSION Qualifiers: Hypertension type: essential hypertension Qualified Code(s): I10 - Essential (primary) hypertension (6) Schizophrenia Assessment/Plan: Cont cogentin/schizophrenia Code(s): F20.9 - SCHIZOPHRENIA, UNSPECIFIED
[2019-01-19] MEDS: BENZTROPINE MESYLATE 0.5 MG TABLET (FP) PO SCH (21:10)
[2019-01-20] MEDS: INSULIN SLIDING SCALE (NOVOLOG) 1 VIAL SQ SCH ×3 (07:49→21:56)
[2019-01-20] MEDS: ARIPiprazole 5 MG TABLET (FP) PO SCH (10:54)
[2019-01-20] MEDS: HALOPERIDOL 0.5 MG TABLET PO SCH (10:54)
[2019-01-20] MEDS: FUROSEMIDE 20 MG TABLET (FP) PO SCH (10:54)
[2019-01-20] MEDS ORDERED: PT OWN MED DRAWER 7, Y5N ONE ×2 (10:54→21:54)
[2019-01-20] MEDS: METOPROLOL TARTRATE 50 MG TABLET (FP) PO SCH ×2 (10:54→21:51)
[2019-01-20] MEDS: LISINOPRIL 5 MG TABLET (FP) PO SCH (10:55)
[2019-01-20] MEDS: PANTOPRAZOLE 20 MG TABLET (FP) PO SCH ×2 (10:55→21:51)
--- NOTE | 2019-01-20 11:18 | PN ---
Progress Note, Physician Chief Complaint: Events noted AF with RVR History of Present Illness: Patient was seen and examined. Awake. Chart was reviewed Denies chest pain or SOB - Current Medication List Current Medications: Active Medications Acetaminophen (Tylenol -) 650 mg PO Q6H PRN PRN Reason: FEVER Last Admin: 01/16/19 23:14 Dose: 650 mg Aripiprazole (Abilify) 5 mg PO DAILY [facility] Last Admin: 01/20/19 10:54 Dose: 5 mg Benztropine Mesylate (Cogentin -) 0.5 mg PO HS [facility] Last Admin: 01/19/19 21:10 Dose: 0.5 mg Diltiazem HCl (Cardizem Injection -) 10 mg IVPUSH Q4H PRN PRN Reason: TACHYCARDIA Furosemide (Lasix -) 20 mg PO DAILY [facility] Last Admin: 01/20/19 10:54 Dose: 20 mg Haloperidol (Haldol -) 0.5 mg PO DAILY [facility] Last Admin: 01/20/19 10:54 Dose: 0.5 mg Insulin Aspart (Novolog Vial Sliding Scale -) 1 vial SQ BIDI [facility]; Protocol Last Admin: 01/20/19 07:49 Dose: Not Given Lisinopril (Prinivil) 2.5 mg PO DAILY [facility] Last Admin: 01/20/19 10:55 Dose: 2.5 mg Metoprolol Tartrate (Lopressor -) 50 mg PO BID [facility] Last Admin: 01/20/19 10:54 Dose: 50 mg Pantoprazole Sodium (Protonix -) 20 mg PO BID [facility] Last Admin: 01/20/19 10:55 Dose: 20 mg Rivaroxaban (Xarelto) 20 mg PO DAILY@1800 [facility] Last Admin: 01/19/19 19:51 Dose: 20 mg - Objective Vital Signs: Vital Signs Temperature 98.3 F 01/20/19 06:00 Pulse Rate 122 H 01/20/19 10:56 Respiratory Rate 18 01/20/19 10:56 Blood Pressure 124/99 01/20/19 10:56 O2 Sat by Pulse Oximetry (%) 99 01/19/19 21:00 HENT: Yes: Atraumatic Neck: Yes: Supple Cardiovascular: Yes: Tachycardia, Pulse Irregular, S1, S2 Respiratory: Yes: Diminished Gastrointestinal: Yes: Normal Bowel Sounds, Soft. No: Tenderness Edema: No Additional Findings/Remarks: - Review of Systems Constitutional: denies Weakness. denies: Chills, Fever Cardiovascular: denies: Chest Pain, Palpitations, Shortness of Breath Respiratory: denies: Cough, Hemoptysis, Orthopnea, PND, SOB, SOB on Exertion Gastrointestinal: denies: Abdominal Pain, Constipation, Diarrhea, Melena, Nausea , Rectal Bleeding, Vomiting Genitourinary: denies: Dysuria, Hematuria Neurological: denies Dizziness, Weakness. denies: Headache, Seizure, Syncope Problem List - Problems (1) Afib Code(s): I48.91 - UNSPECIFIED ATRIAL FIBRILLATION Qualifiers: Atrial fibrillation type: persistent Qualified Code(s): I48.1 - Persistent atrial fibrillation (2) Anemia Code(s): D64.9 - ANEMIA, UNSPECIFIED Qualifiers: Anemia type: unspecified type Qualified Code(s): D64.9 - Anemia, unspecified (3) Demand ischemia Code(s): I24.8 - OTHER FORMS OF ACUTE ISCHEMIC HEART DISEASE (4) Diabetes Code(s): E11.9 - TYPE 2 DIABETES MELLITUS WITHOUT COMPLICATIONS (5) Diabetic peripheral vascular disease Code(s): E11.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 (6) HTN (hypertension) Code(s): I10 - ESSENTIAL (PRIMARY) HYPERTENSION Qualifiers: Hypertension type: essential hypertension Qualified Code(s): I10 - Essential (primary) hypertension (7) Schizophrenia Code(s): F20.9 - SCHIZOPHRENIA, UNSPECIFIED Assessment/Plan 1. Persistent AF with RVR, [id number] score of 5 on DOAC 2. Ataxia 3. DM 4. HTN 5. History of schizophrenia 6. History of osteomyelitis 7. History of CVA 8. Post demand ischemia PLAN: 1. Continue Lopressor and Prinivil 2. Continue Xarelto 3. Diuretics with Lasix and monitor renal function and electrolytes 4. Troponin at baseline 5. Medication for schizophrenia Further plans are to follow Homer Calvert MD
--- NOTE | 2019-01-20 16:21 | CON.GI ---
Consult Consult Specialty:: Gastrenterology Referred by:: Dr. May - History of Present Illness Chief Complaint: Anemia History of Present Illness: 68yo male h/o afib on xarelto, schizohrenia, and L leg osteomyelitis presenting with ataxia asked to evaluate for anemia. Pt poor historian, reporting difficulty walking and poor balance prompting hospitalization. Otherwise no complaints, cooperative with history though somewhat tangential and directs conversation towards meals and diet orders. Denies n/v, abdominal pain. Denies change in bowel pattern or rectal bleeding. Reports possible EGD and colonoscopy previously, details unclear. Eating well per nursing staff, had large brown bm this am. - History Source History Provided By: Patient, Medical Record Limitations to Obtaining History: Poor Historian - Past Medical History Cardio/Vascular: Yes: AFIB, HTN Psych: Yes: Schizophrenia - Alcohol/Substance Use Hx Alcohol Use: No - Smoking History Smoking history: Former smoker Have you smoked in the past 12 months: No Aproximately how many cigarettes per day: 3 Home Medications - Allergies Allergies/Adverse Reactions: Allergies Allergy/AdvReac Type Severity Reaction Status Date / Time chlorpromazine Allergy Verified 01/13/19 13:30 [From Thorazine] torazine Allergy Uncoded 01/13/19 09:56 - Home Medications Home Medications: Ambulatory Orders Acetaminophen [Tylenol] 650 mg PO Q6H PRN 09/05/18 Aripiprazole [Abilify -] 5 mg PO DAILY 09/05/18 Furosemide [Lasix] 20 mg PO DAILY 5 Days #5 tablet 12/09/18 Benztropine Mesylate [Cogentin -] 0.5 mg PO DAILY 01/13/19 Haloperidol [Haldol -] 0.5 mg PO DAILY 01/13/19 Insulin Sliding Scale [Novolog Vial Sliding Scale -] 0 unit SQ BID 01/13/19 Omeprazole Magnesium [Prilosec Otc] 20 mg PO BID 01/13/19 Metoprolol Tartrate [Lopressor -] 25 mg PO BID #60 tablet 01/16/19 Rivaroxaban [Xarelto -] 20 mg PO DAILY@1800 #30 tablet 01/16/19 Review of Systems - Review of Systems Constitutional: reports: No Symptoms Cardiovascular: reports: No Symptoms Respiratory: reports: No Symptoms Gastrointestinal: reports: No Symptoms Physical Exam-GI Vital Signs: Vital Signs Temperature 98.3 F 01/20/19 06:00 Pulse Rate 94 H 01/20/19 15:29 Respiratory Rate 12 01/20/19 15:29 Blood Pressure 94/61 01/20/19 15:29 O2 Sat by Pulse Oximetry (%) 99 01/19/19 21:00 Constitutional: Yes: Well Nourished, No Distress, Calm, Other (AAOX3) Cardiovascular: Yes: WNL, Pulse Irregular Respiratory: Yes: WNL, Regular, CTA Bilaterally ...Palpate: Yes: Other (Abd soft, nt, nd +small incisional scar at epigastrium ( pt unclear of prior surgeries) Rectal exam: brown stool) Labs: CBC, BMP 01/18/19 05:40 01/13/19 12:10 Problem List - Problems (1) Anemia Assessment/Plan: 68yo male h/o afib on xarelto, schizophrenia, and L leg osteomyelitis presenting with ataxia without acute CT findings asked to evaluate for anemia with microcytosis and prior evidence of iron deficiency. No overt bleeding. Possible remote EGD/colonoscopy. FOBT negative though iron deficiency would warrant further investigation and to exclude source of chronic blood loss including AVMs or underlying malignancy. -Discussed with pt risks/benefits of EGD/colonoscopy to further evaluate, however while cooperative and oriented, somewhat tangential and unable to verbalize understanding of indications and risks/benefits (directs discussion towards his meals and diet orders). -Recommend obtain updated iron studies/ferritin -Psychiatry consult to determine if pt has decision making capacity -Would also need to clarify with cardiology if antithrombotics could be safely held if endoscopy pursued -Continue optimization from cardiac and neuro standpoint -Pending above will determine timing of endoscopic evaluation -If overt bleeding or drop in Hb in the interim please notify GI for possible more urgent intervention. Code(s): D64.9 - ANEMIA, UNSPECIFIED Qualifiers: Anemia type: unspecified type Qualified Code(s): D64.9 - Anemia, unspecified
--- NOTE | 2019-01-20 16:45 | PN ---
Progress Note, Physician - Current Medication List Current Medications: Active Medications Acetaminophen (Tylenol -) 650 mg PO Q6H PRN PRN Reason: FEVER Last Admin: 01/16/19 23:14 Dose: 650 mg Aripiprazole (Abilify) 5 mg PO DAILY [facility] Last Admin: 01/20/19 10:54 Dose: 5 mg Benztropine Mesylate (Cogentin -) 0.5 mg PO HS [facility] Last Admin: 01/19/19 21:10 Dose: 0.5 mg Diltiazem HCl (Cardizem Injection -) 10 mg IVPUSH Q4H PRN PRN Reason: TACHYCARDIA Furosemide (Lasix -) 20 mg PO DAILY [facility] Last Admin: 01/20/19 10:54 Dose: 20 mg Haloperidol (Haldol -) 0.5 mg PO DAILY [facility] Last Admin: 01/20/19 10:54 Dose: 0.5 mg Insulin Aspart (Novolog Vial Sliding Scale -) 1 vial SQ BIDI [facility]; Protocol Last Admin: 01/20/19 07:49 Dose: Not Given Lisinopril (Prinivil) 2.5 mg PO DAILY [facility] Last Admin: 01/20/19 10:55 Dose: 2.5 mg Metoprolol Tartrate (Lopressor -) 50 mg PO BID [facility] Last Admin: 01/20/19 10:54 Dose: 50 mg Pantoprazole Sodium (Protonix -) 20 mg PO BID [facility] Last Admin: 01/20/19 10:55 Dose: 20 mg Rivaroxaban (Xarelto) 20 mg PO DAILY@1800 [facility] Last Admin: 01/19/19 19:51 Dose: 20 mg - Objective Vital Signs: Vital Signs Temperature 98.3 F 01/20/19 06:00 Pulse Rate 94 H 01/20/19 15:29 Respiratory Rate 12 01/20/19 15:29 Blood Pressure 94/61 01/20/19 15:29 O2 Sat by Pulse Oximetry (%) 99 01/19/19 21:00 Constitutional: Yes: No Distress HENT: Yes: Atraumatic Neck: Yes: Supple Cardiovascular: Yes: Regular Rate and Rhythm Respiratory: Yes: CTA Bilaterally Gastrointestinal: Yes: Normal Bowel Sounds Extremities: Yes: WNL Edema: No Peripheral Pulses WNL: Yes Neurological: Yes: Alert, Oriented Labs: CBC, BMP 01/18/19 05:40 01/13/19 12:10 Problem List - Problems (1) Afib Assessment/Plan: on meds cardiology consult fu troponins Code(s): I48.91 - UNSPECIFIED ATRIAL FIBRILLATION Qualifiers: Atrial fibrillation type: persistent Qualified Code(s): I48.1 - Persistent atrial fibrillation (2) Ataxia Assessment/Plan: pt eval Code(s): R27.0 - ATAXIA, UNSPECIFIED (3) Diabetes Assessment/Plan: insulin sliding scale and bgms Code(s): E11.9 - TYPE 2 DIABETES MELLITUS WITHOUT COMPLICATIONS (4) HTN (hypertension) Code(s): I10 - ESSENTIAL (PRIMARY) HYPERTENSION Qualifiers: Hypertension type: essential hypertension Qualified Code(s): I10 - Essential (primary) hypertension (5) Osteomyelitis Code(s): M86.9 - OSTEOMYELITIS, UNSPECIFIED (6) Schizophrenia Assessment/Plan: continue home meds Code(s): F20.9 - SCHIZOPHRENIA, UNSPECIFIED
[2019-01-20] MEDS: RIVAROXABAN 20 MG TABLET PO SCH (18:11)
[2019-01-20] MEDS: BENZTROPINE MESYLATE 0.5 MG TABLET (FP) PO SCH (22:55)
[2019-01-21] MEDS: INSULIN SLIDING SCALE (NOVOLOG) 1 VIAL SQ SCH ×2 (06:06→17:43)
--- NOTE | 2019-01-21 06:36 | PN ---
Progress Note (short form) - Note Progress Note: Chief Complaint: Events noted, notes reviewed, denies any chest discomfort, denies any dyspnea, atrial fibrillation is persistent with intermittent rapid ventricular response History of Present Illness: Seen and examined on telemetry. Events noted, notes reviewed, denies any chest discomfort, denies any dyspnea, atrial fibrillation is persistent with intermittent rapid ventricular response Medications: Current Medications Acetaminophen (Tylenol -) 650 mg PO Q6H PRN PRN Reason: FEVER Last Admin: 01/16/19 23:14 Dose: 650 mg Aripiprazole (Abilify) 5 mg PO DAILY [facility] Last Admin: 01/20/19 10:54 Dose: 5 mg Benztropine Mesylate (Cogentin -) 0.5 mg PO HS [facility] Last Admin: 01/20/19 22:55 Dose: 0.5 mg Diltiazem HCl (Cardizem Injection -) 10 mg IVPUSH Q4H PRN PRN Reason: TACHYCARDIA Furosemide (Lasix -) 20 mg PO DAILY [facility] Last Admin: 01/20/19 10:54 Dose: 20 mg Haloperidol (Haldol -) 0.5 mg PO DAILY [facility] Last Admin: 01/20/19 10:54 Dose: 0.5 mg Insulin Aspart (Novolog Vial Sliding Scale -) 1 vial SQ BIDI [facility]; Protocol Last Admin: 01/21/19 06:06 Dose: Not Given Lisinopril (Prinivil) 2.5 mg PO DAILY [facility] Last Admin: 01/20/19 10:55 Dose: 2.5 mg Metoprolol Tartrate (Lopressor -) 50 mg PO BID [facility] Last Admin: 01/20/19 21:51 Dose: 50 mg Pantoprazole Sodium (Protonix -) 20 mg PO BID [facility] Last Admin: 01/20/19 21:51 Dose: 20 mg Rivaroxaban (Xarelto) 20 mg PO DAILY@1800 [facility] Last Admin: 01/20/19 18:11 Dose: 20 mg Review of Systems - Review of Systems Constitutional: no symptoms reported Respiratory: denies: Cough or Sputum Production Cardiovascular: as noted above Gastrointestinal: denies Nausea, Vomiting, Diarrhea, Constipation or Abdominal Pain Genitourinary: No symptoms reported Musculoskeletal: No symptoms reported Endocrine: No symptoms reported Vital Signs: Last Vital Signs Temp Pulse Resp BP Pulse Ox 98 F 114 H 22 H 107/73 99 01/21/19 06:00 09/24/19 06:00 01/21/19 06:00 01/21/19 06:00 01/20/19 21:00 Intake & Output 01/18/19 01/19/19 01/20/19 01/21/19 23:59 23:59 23:59 23:59 Intake Total 450 1020 350 300 Output Total 900 1600 1950 450 Balance -450 -580 -1600 -150 Weight 196 lb 4.8 oz Constitutional: No Distress, Calm Neck: Supple Negative JVD No Bruit Respiratory: Diminished Breath Sounds at the Bases Cardiovascular: S1 S2 irregularly irregular Gastrointestinal: Soft Benign Normal Bowel Sounds Ext: No Edema Labs: CBC, BMP 01/18/19 05:40 01/13/19 12:10 Assessment/Plan ASSESSMENT: 1. Persistent atrial fibrillation with rapid ventricular response, [id number] score of 5 on DOAC's/Xarelto 2. Coronary artery disease with evidence of demand ischemia no clinical angina pectoris 3. Probable diastolic left ventricular dysfunction with clinical class 0 [place] [employer] classification left ventricular failure Ataxia 4. Hypertensive cardiovascular disease 5. Diabetes mellitus 6. Hypercholesterolemia 7. History of cerebrovascular disease 8. History of schizophrenia 9. History of ataxia 10. History of osteomyelitis PLAN: 1. Continue Lopressor and and further titrated dosage as tolerated and as needed, hemodynamics permitting 2. Continue Prinivil, hemodynamics permitting 3. Continue Xarelto with close monitoring of hemoglobin level 4. Continue diuretic therapy/Lasix therapy with close monitoring of renal function and electrolytes 5. Echocardiography for evaluation of left ventricular systolic function and valvular function, has not been performed as of yet Ubaldo Kim M.D.
[2019-01-21] MEDS: HALOPERIDOL 0.5 MG TABLET PO SCH (10:02)
[2019-01-21] MEDS: ARIPiprazole 5 MG TABLET (FP) PO SCH (10:02)
[2019-01-21] MEDS: LISINOPRIL 5 MG TABLET (FP) PO SCH (10:02)
[2019-01-21] MEDS: FUROSEMIDE 20 MG TABLET (FP) PO SCH (10:03)
[2019-01-21] MEDS: PANTOPRAZOLE 20 MG TABLET (FP) PO SCH ×2 (10:03→22:21)
[2019-01-21] MEDS: METOPROLOL TARTRATE 50 MG TABLET (FP) PO SCH ×2 (13:35→22:22)
--- NOTE | 2019-01-21 14:04 | PN ---
Progress Note, Physician History of Present Illness: doing well says no balance - Current Medication List Current Medications: Active Medications Acetaminophen (Tylenol -) 650 mg PO Q6H PRN PRN Reason: FEVER Last Admin: 01/16/19 23:14 Dose: 650 mg Aripiprazole (Abilify) 5 mg PO DAILY [facility] Last Admin: 01/21/19 10:02 Dose: 5 mg Benztropine Mesylate (Cogentin -) 0.5 mg PO HS [facility] Last Admin: 01/20/19 22:55 Dose: 0.5 mg Diltiazem HCl (Cardizem Injection -) 10 mg IVPUSH Q4H PRN PRN Reason: TACHYCARDIA Furosemide (Lasix -) 20 mg PO DAILY [facility] Last Admin: 01/21/19 10:03 Dose: 20 mg Haloperidol (Haldol -) 0.5 mg PO DAILY [facility] Last Admin: 01/21/19 10:02 Dose: 0.5 mg Insulin Aspart (Novolog Vial Sliding Scale -) 1 vial SQ BIDI [facility]; Protocol Last Admin: 01/21/19 06:06 Dose: Not Given Lisinopril (Prinivil) 2.5 mg PO DAILY [facility] Last Admin: 01/21/19 10:02 Dose: 2.5 mg Metoprolol Tartrate (Lopressor -) 50 mg PO TID [facility] Last Admin: 01/21/19 13:35 Dose: 50 mg Pantoprazole Sodium (Protonix -) 20 mg PO BID [facility] Last Admin: 01/21/19 10:03 Dose: 20 mg Rivaroxaban (Xarelto) 20 mg PO DAILY@1800 [facility] Last Admin: 01/20/19 18:11 Dose: 20 mg - Objective Vital Signs: Vital Signs Temperature 98.5 F 01/21/19 10:00 Pulse Rate 88 01/21/19 10:00 Respiratory Rate 22 H 01/21/19 10:00 Blood Pressure 110/98 01/21/19 10:00 O2 Sat by Pulse Oximetry (%) 99 01/21/19 09:00 Constitutional: Yes: No Distress, Calm Cardiovascular: Yes: S1, S2 Respiratory: Yes: Regular, CTA Bilaterally Gastrointestinal: Yes: Normal Bowel Sounds, Soft Musculoskeletal: Yes: WNL Extremities: Yes: WNL Neurological: Yes: Alert, Oriented Psychiatric: Yes: Alert, Oriented Labs: CBC, BMP 01/18/19 05:40 01/13/19 12:10 Assessment/Plan Problem List - Problems (1) Afib Code(s): I48.91 - UNSPECIFIED ATRIAL FIBRILLATION Qualifiers: Atrial fibrillation type: chronic Qualified Code(s): I48.2 - Chronic atrial fibrillation (2) Ataxia Code(s): R27.0 - ATAXIA, UNSPECIFIED (3) Diabetes Code(s): E11.9 - TYPE 2 DIABETES MELLITUS WITHOUT COMPLICATIONS (4) HTN (hypertension) Code(s): I10 - ESSENTIAL (PRIMARY) HYPERTENSION (5) Osteomyelitis Code(s): M86.9 - OSTEOMYELITIS, UNSPECIFIED (6) Schizophrenia Code(s): F20.9 - SCHIZOPHRENIA, UNSPECIFIED plan continue current mgmt blood cx pending close watch rest as per the team
--- NOTE | 2019-01-21 14:04 | PN ---
Progress Note, Physician History of Present Illness: stable no new issues - Current Medication List Current Medications: Active Medications Acetaminophen (Tylenol -) 650 mg PO Q6H PRN PRN Reason: FEVER Last Admin: 01/16/19 23:14 Dose: 650 mg Aripiprazole (Abilify) 5 mg PO DAILY [facility] Last Admin: 01/21/19 10:02 Dose: 5 mg Benztropine Mesylate (Cogentin -) 0.5 mg PO HS [facility] Last Admin: 01/20/19 22:55 Dose: 0.5 mg Diltiazem HCl (Cardizem Injection -) 10 mg IVPUSH Q4H PRN PRN Reason: TACHYCARDIA Furosemide (Lasix -) 20 mg PO DAILY [facility] Last Admin: 01/21/19 10:03 Dose: 20 mg Haloperidol (Haldol -) 0.5 mg PO DAILY [facility] Last Admin: 01/21/19 10:02 Dose: 0.5 mg Insulin Aspart (Novolog Vial Sliding Scale -) 1 vial SQ BIDI [facility]; Protocol Last Admin: 01/21/19 06:06 Dose: Not Given Lisinopril (Prinivil) 2.5 mg PO DAILY [facility] Last Admin: 01/21/19 10:02 Dose: 2.5 mg Metoprolol Tartrate (Lopressor -) 50 mg PO TID [facility] Last Admin: 01/21/19 13:35 Dose: 50 mg Pantoprazole Sodium (Protonix -) 20 mg PO BID [facility] Last Admin: 01/21/19 10:03 Dose: 20 mg Rivaroxaban (Xarelto) 20 mg PO DAILY@1800 [facility] Last Admin: 01/20/19 18:11 Dose: 20 mg - Objective Vital Signs: Vital Signs Temperature 98.5 F 01/21/19 10:00 Pulse Rate 88 01/21/19 10:00 Respiratory Rate 22 H 01/21/19 10:00 Blood Pressure 110/98 01/21/19 10:00 O2 Sat by Pulse Oximetry (%) 99 01/21/19 09:00 Constitutional: Yes: No Distress, Calm Cardiovascular: Yes: S1, S2 Respiratory: Yes: Regular, CTA Bilaterally Gastrointestinal: Yes: Normal Bowel Sounds, Soft Musculoskeletal: Yes: WNL Extremities: Yes: WNL Neurological: Yes: Alert, Oriented Psychiatric: Yes: Alert, Oriented Labs: CBC, BMP 01/18/19 05:40 01/13/19 12:10 Assessment/Plan Problem List - Problems (1) Afib Code(s): I48.91 - UNSPECIFIED ATRIAL FIBRILLATION Qualifiers: Atrial fibrillation type: chronic Qualified Code(s): I48.2 - Chronic atrial fibrillation (2) Ataxia Code(s): R27.0 - ATAXIA, UNSPECIFIED (3) Diabetes Code(s): E11.9 - TYPE 2 DIABETES MELLITUS WITHOUT COMPLICATIONS (4) HTN (hypertension) Code(s): I10 - ESSENTIAL (PRIMARY) HYPERTENSION (5) Osteomyelitis Code(s): M86.9 - OSTEOMYELITIS, UNSPECIFIED (6) Schizophrenia Code(s): F20.9 - SCHIZOPHRENIA, UNSPECIFIED plan continue current mgmt blood cx pending close watch rest as per the team
--- NOTE | 2019-01-21 14:22 | CON.PSY ---
Psychiatry Consult Chief Complaint: 68 Kasie old male with a history of SChizophrenia chronic type, Afib, Left Leg Osteomyelitis. [facility] [employer]. Patient seen to evaluate capacity to make decisions at this time. Symptoms: reports: Memory Impairment, Disorganized/Disruptive Thoughts - Previous Psychiatric Treatment Outpatient: Less than 6 mos ago Inpatient: 2 or more prior admissions - Previous Substance Abuse Treatment Outpatient: None Inpatient: None - Reason for Previous Treatment Reason for Previous Treatment: Psychotic Episode - Current Medications Current Medications: Active Medications Acetaminophen (Tylenol -) 650 mg PO Q6H PRN PRN Reason: FEVER Last Admin: 01/16/19 23:14 Dose: 650 mg Aripiprazole (Abilify) 5 mg PO DAILY [facility] Last Admin: 01/21/19 10:02 Dose: 5 mg Benztropine Mesylate (Cogentin -) 0.5 mg PO HS [facility] Last Admin: 01/20/19 22:55 Dose: 0.5 mg Diltiazem HCl (Cardizem Injection -) 10 mg IVPUSH Q4H PRN PRN Reason: TACHYCARDIA Furosemide (Lasix -) 20 mg PO DAILY [facility] Last Admin: 01/21/19 10:03 Dose: 20 mg Insulin Aspart (Novolog Vial Sliding Scale -) 1 vial SQ BIDI [facility]; Protocol Last Admin: 01/21/19 06:06 Dose: Not Given Lisinopril (Prinivil) 2.5 mg PO DAILY [facility] Last Admin: 01/21/19 10:02 Dose: 2.5 mg Metoprolol Tartrate (Lopressor -) 50 mg PO TID [facility] Last Admin: 01/21/19 13:35 Dose: 50 mg Pantoprazole Sodium (Protonix -) 20 mg PO BID [facility] Last Admin: 01/21/19 10:03 Dose: 20 mg Rivaroxaban (Xarelto) 20 mg PO DAILY@1800 [facility] Last Admin: 01/20/19 18:11 Dose: 20 mg - Allergies Allergies: Allergies Allergy/AdvReac Type Severity Reaction Status Date / Time chlorpromazine Allergy Verified 01/13/19 13:30 [From Thorazine] torazine Allergy Uncoded 01/13/19 09:56 - Current Living Status Usual Living Arrangement: Assisted Living - Current Mental Status Evaluation Appearance: Disheveled Attitude: Guarded - Affect Affect: Constrictive Appropriateness: Not Appropriate - Mood Mood: Euthymic - Speech/Language Expressive: Delayed - Psychomotor Activity Psychomotor Activity: Slowed - Thought Process Thought Process: Circumstantial - Thought Content Hallucinations: Absent Delusions: Absent - Self Perception Self Perception: No Impairment - Cognition Attention: Alert Memory, Short Term: 1/3 Memory, Remote with Promptin/3 - Concentration Serial Sevens Intact: No Simple Calculations Intact: No - Abstraction Proverb Interpretation: Impaired Judgement: Moderately Impaired - Insight Insight: Impaired - Impulse Control Impulse Control: Good Control - Suicidal Ideation Suicidal Ideation: No - Homicidal Ideation Homicidal Ideation: No Assessment/Plan 1)Patient lacks functional capacity to make informed decisions at this time.
--- NOTE | 2019-01-21 16:18 | PN.GI ---
GI Progress Note Subjective: No acute events No bleeding States feeling well Per psych, lacks functional capacity to make informed consent - Objective Vital Signs: Vital Signs Temperature 98.1 F 01/21/19 14:00 Pulse Rate 100 H 01/21/19 14:00 Respiratory Rate 20 01/21/19 14:00 Blood Pressure 110/97 01/21/19 14:00 O2 Sat by Pulse Oximetry (%) 99 01/21/19 09:00 Constitutional: Calm Eyes: No: Sclera Icterus Cardiovascular: Yes: Pulse Irregular Respiratory: Yes: CTA Bilaterally Gastrointestinal Inspection: No: Distention ...Auscultate: Yes: Normoactive Bowel Sounds ...Palpate: Yes: Soft. No: Hepatomegaly, Splenomegaly, Tenderness Edema: No (No LE ) Neurological: Yes: Alert Labs: CBC, BMP 01/18/19 05:40 01/13/19 12:10 Problem List - Problems (1) Anemia Assessment/Plan: Discussed finding of anemia with Mr. Theodore. Explained that to exclude sources of GI blood loss such as bleeding blood vessels, polyps, cancers of the GI tract such as PUD, endoscopy and colonoscopy could be undertaken. He states that he did remember the conversation he had with Dr. Arrington yesterday regarding endoscopy / colonoscopy and also stated that he thinks he had one before. He denies a family history of colon cancer. after discussion, he explained that he really did not see the need to have the procedures. He lacks capacity to make decisions per psych but still declining having a procedure. Consent issue will need to be clarified by primary team, patient needs optimization from cardiac standpoint and clarification regarding safety of holding antithrombotic therapy at this time prior to endoscopic evaluation Code(s): D64.9 - ANEMIA, UNSPECIFIED Qualifiers: Anemia type: unspecified type Qualified Code(s): D64.9 - Anemia, unspecified
--- NOTE | 2019-01-21 16:59 | ECHO ---
Version: 1 Name: CHARY RUSS Exam: Adult Echocardiogram Study Date: 01/21/2019, 3:08 PM Age: 68 Years MMode/2D Measurements & Calculations IVSd: 1.09 cm LVIDs: 4.1 cm LVIDd: 5.6 cm LVPWd: 0.90 cm LVOT diam: 2.07 cm Ao root diam: 3.4 cm LA dimension: 3.9 cm Doppler Measurements & Calculations MV E max esvin: 69.1 cm/sec Med E/e': 5.8 MV A max esvin: 21.2 cm/sec Med Peak E' Esvin: 11.8 cm/sec MV E/A: 3.3 Lat E/e': 6.8 Lat Peak E' Esvin: 10.2 cm/sec MR max P.8 mmHg Ao max P.7 mmHg FATUMA(I,D): 2.12 cm Ao mean P.6 mmHg LV V1 mean: 63.4 cm/sec Ao V2 max: 119.3 cm/sec LV V1 mean P.10 mmHg TR max esvin: 205.0 cm/sec TR max P.0 mmHg Left Ventricle The left ventricle is normal in size. Left ventricular systolic function is low normal. EF 53%. Right Ventricle The right ventricle is normal in size and function. Atria Normal left and right atrial size and function. Mitral Valve The mitral valve is grossly normal. There is trace to mild mitral regurgitation. Tricuspid Valve The tricuspid valve is not well visualized, but is grossly normal. There is mild tricuspid regurgita tion. PASP 34 mmHg. Aortic Valve The aortic valve is normal in structure and function. Pulmonic Valve The pulmonic valve is normal in structure and function. Great Vessels The aortic root is normal size. Pericardium/Pleura There is no pericardial effusion. Summary Statements The left ventricle is normal in size. Left ventricular systolic function is low normal. EF 53% The right ventricle is normal in size and function. Normal left and right atrial size and function. The mitral valve is grossly normal. There is trace to mild mitral regurgitation. The tricuspid valve is not well visualized, but is grossly normal. There is mild tricuspid regurgitation. PASP 34 mmHg The aortic valve is normal in structure and function. The pulmonic valve is normal in structure and function. The aortic root is normal size. MD Guilherme Dickson 01/21/2019, 3:59 PM Ordering Physician: Ubaldo Kim Referring Physician: NORA WEINER Performed By: Joyce Valle
[2019-01-21] MEDS: RIVAROXABAN 20 MG TABLET PO SCH (17:44)
--- NOTE | 2019-01-21 18:14 | PN ---
Progress Note, Physician - Current Medication List Current Medications: Active Medications Acetaminophen (Tylenol -) 650 mg PO Q6H PRN PRN Reason: FEVER Last Admin: 01/16/19 23:14 Dose: 650 mg Aripiprazole (Abilify) 5 mg PO DAILY [facility] Last Admin: 01/21/19 10:02 Dose: 5 mg Benztropine Mesylate (Cogentin -) 0.5 mg PO HS [facility] Last Admin: 01/20/19 22:55 Dose: 0.5 mg Diltiazem HCl (Cardizem Injection -) 10 mg IVPUSH Q4H PRN PRN Reason: TACHYCARDIA Furosemide (Lasix -) 20 mg PO DAILY [facility] Last Admin: 01/21/19 10:03 Dose: 20 mg Insulin Aspart (Novolog Vial Sliding Scale -) 1 vial SQ BIDI [facility]; Protocol Last Admin: 01/21/19 17:43 Dose: Not Given Lisinopril (Prinivil) 2.5 mg PO DAILY [facility] Last Admin: 01/21/19 10:02 Dose: 2.5 mg Metoprolol Tartrate (Lopressor -) 50 mg PO TID [facility] Last Admin: 01/21/19 13:35 Dose: 50 mg Pantoprazole Sodium (Protonix -) 20 mg PO BID [facility] Last Admin: 01/21/19 10:03 Dose: 20 mg Rivaroxaban (Xarelto) 20 mg PO DAILY@1800 [facility] Last Admin: 01/21/19 17:44 Dose: 20 mg - Objective Vital Signs: Vital Signs Temperature 98.1 F 01/21/19 14:00 Pulse Rate 84 01/21/19 16:00 Respiratory Rate 20 01/21/19 16:00 Blood Pressure 112/79 01/21/19 16:00 O2 Sat by Pulse Oximetry (%) 99 01/21/19 09:00 Constitutional: Yes: No Distress HENT: Yes: Atraumatic Neck: Yes: Supple Cardiovascular: Yes: Regular Rate and Rhythm Respiratory: Yes: CTA Bilaterally Extremities: Yes: WNL Neurological: Yes: Alert, Oriented Labs: CBC, BMP 01/18/19 05:40 01/13/19 12:10 Problem List - Problems (1) Afib Assessment/Plan: on meds cardiology consult fu troponins Code(s): I48.91 - UNSPECIFIED ATRIAL FIBRILLATION Qualifiers: Atrial fibrillation type: persistent Qualified Code(s): I48.1 - Persistent atrial fibrillation (2) Ataxia Assessment/Plan: pt eval Code(s): R27.0 - ATAXIA, UNSPECIFIED (3) Diabetes Assessment/Plan: insulin sliding scale and bgms Code(s): E11.9 - TYPE 2 DIABETES MELLITUS WITHOUT COMPLICATIONS (4) HTN (hypertension) Code(s): I10 - ESSENTIAL (PRIMARY) HYPERTENSION Qualifiers: Hypertension type: essential hypertension Qualified Code(s): I10 - Essential (primary) hypertension (5) Osteomyelitis Code(s): M86.9 - OSTEOMYELITIS, UNSPECIFIED (6) Schizophrenia Assessment/Plan: continue home meds Code(s): F20.9 - SCHIZOPHRENIA, UNSPECIFIED
[2019-01-21] MEDS ORDERED: PT OWN MED DRAWER 7, Y5N ONE (22:02)
[2019-01-21] MEDS: BENZTROPINE MESYLATE 0.5 MG TABLET (FP) PO SCH (22:22)
[2019-01-22] MEDS: INSULIN SLIDING SCALE (NOVOLOG) 1 VIAL SQ SCH ×2 (06:30→16:17)
[2019-01-22] MEDS: METOPROLOL TARTRATE 50 MG TABLET (FP) PO SCH ×3 (06:31→22:01)
[2019-01-22] MEDS: FUROSEMIDE 20 MG TABLET (FP) PO SCH (10:04)
[2019-01-22] MEDS: PANTOPRAZOLE 20 MG TABLET (FP) PO SCH ×2 (10:04→22:01)
[2019-01-22] MEDS: LISINOPRIL 5 MG TABLET (FP) PO SCH (10:04)
[2019-01-22] MEDS: ARIPiprazole 5 MG TABLET (FP) PO SCH (10:04)
--- NOTE | 2019-01-22 10:26 | PN ---
Progress Note, Physician History of Present Illness: Rate-controlled afib, asymptomatic and denies chest pain, dyspnea, palpitations. Patient lacks mental capacity to consent for endoscopy. - Current Medication List Current Medications: Active Medications Acetaminophen (Tylenol -) 650 mg PO Q6H PRN PRN Reason: FEVER Last Admin: 01/16/19 23:14 Dose: 650 mg Aripiprazole (Abilify) 5 mg PO DAILY [facility] Last Admin: 01/22/19 10:04 Dose: 5 mg Benztropine Mesylate (Cogentin -) 0.5 mg PO HS [facility] Last Admin: 01/21/19 22:22 Dose: 0.5 mg Diltiazem HCl (Cardizem Injection -) 10 mg IVPUSH Q4H PRN PRN Reason: TACHYCARDIA Furosemide (Lasix -) 20 mg PO DAILY [facility] Last Admin: 01/22/19 10:04 Dose: 20 mg Insulin Aspart (Novolog Vial Sliding Scale -) 1 vial SQ BIDI [facility]; Protocol Last Admin: 01/22/19 06:30 Dose: Not Given Lisinopril (Prinivil) 2.5 mg PO DAILY [facility] Last Admin: 01/22/19 10:04 Dose: 2.5 mg Metoprolol Tartrate (Lopressor -) 50 mg PO TID [facility] Last Admin: 01/22/19 06:31 Dose: 50 mg Pantoprazole Sodium (Protonix -) 20 mg PO BID [facility] Last Admin: 01/22/19 10:04 Dose: 20 mg Rivaroxaban (Xarelto) 20 mg PO DAILY@1800 [facility] Last Admin: 01/21/19 17:44 Dose: 20 mg - Objective Vital Signs: Vital Signs Temperature 98.3 F 01/22/19 01:00 Pulse Rate 88 01/22/19 09:00 Respiratory Rate 18 01/22/19 09:00 Blood Pressure 98/68 01/22/19 09:00 O2 Sat by Pulse Oximetry (%) 99 01/21/19 21:00 Constitutional: Yes: No Distress, Calm Neck: Yes: Supple Cardiovascular: Yes: Pulse Irregular Respiratory: Yes: Regular, Diminished Gastrointestinal: Yes: Normal Bowel Sounds, Soft Edema: No Labs: CBC, BMP 01/18/19 05:40 01/13/19 12:10 - ....Imaging EKG: Report Reviewed (Tele: Rate-controlled afib) Problem List - Problems (1) Demand ischemia Code(s): I24.8 - OTHER FORMS OF ACUTE ISCHEMIC HEART DISEASE (2) Anemia Code(s): D64.9 - ANEMIA, UNSPECIFIED Qualifiers: Anemia type: unspecified type Qualified Code(s): D64.9 - Anemia, unspecified (3) Diastolic dysfunction Code(s): I51.89 - OTHER ILL-DEFINED HEART DISEASES (4) Afib Code(s): I48.91 - UNSPECIFIED ATRIAL FIBRILLATION Qualifiers: Atrial fibrillation type: persistent Qualified Code(s): I48.1 - Persistent atrial fibrillation (5) HTN (hypertension) Code(s): I10 - ESSENTIAL (PRIMARY) HYPERTENSION Qualifiers: Hypertension type: essential hypertension Qualified Code(s): I10 - Essential (primary) hypertension (6) Schizophrenia Code(s): F20.9 - SCHIZOPHRENIA, UNSPECIFIED Assessment/Plan 01/22/2019 Echo: Normal and RV size and fxn LVEF 53%, mild TR RVSP 34 mmHg, tr- mild MR, normal biatrial sizes 1. Persistent atrial fibrillation with improved rate-control, [id number] score of 5 on DOAC's/Xarelto 2. Coronary artery disease with evidence of demand ischemia no clinical angina pectoris 3. Probable diastolic left ventricular dysfunction with clinical class 0 [place] [employer] classification left ventricular failure 4. Hypertensive cardiovascular disease 5. Diabetes mellitus 6. Hypercholesterolemia 7. History of cerebrovascular disease 8. History of schizophrenia 9. History of ataxia 10. History of osteomyelitis 11. Anemia PLAN: 1. Continue Lopressor 50 tid and and further titrated dosage as tolerated and as needed, hemodynamics permitting 2. Continue Prinivil 2.5 qd, hemodynamics permitting 3. Continue Xarelto 20 qd with close monitoring of hemoglobin level post transfusion 4. Continue diuretic therapy/Lasix 20 qd with close monitoring of renal function and electrolytes 5. Patient lacks capacity to consent to endoscopic evaluation of anemia
[2019-01-22] MEDS ORDERED: PT OWN MED DRAWER 7, Y5N ONE ×2 (11:34→21:59)
--- NOTE | 2019-01-22 13:35 | PN ---
Progress Note, Physician History of Present Illness: rate controlled afib stable - Current Medication List Current Medications: Active Medications Acetaminophen (Tylenol -) 650 mg PO Q6H PRN PRN Reason: FEVER Last Admin: 01/16/19 23:14 Dose: 650 mg Aripiprazole (Abilify) 5 mg PO DAILY [facility] Last Admin: 01/22/19 10:04 Dose: 5 mg Benztropine Mesylate (Cogentin -) 0.5 mg PO HS [facility] Last Admin: 01/21/19 22:22 Dose: 0.5 mg Diltiazem HCl (Cardizem Injection -) 10 mg IVPUSH Q4H PRN PRN Reason: TACHYCARDIA Furosemide (Lasix -) 20 mg PO DAILY [facility] Last Admin: 01/22/19 10:04 Dose: 20 mg Insulin Aspart (Novolog Vial Sliding Scale -) 1 vial SQ BIDI [facility]; Protocol Last Admin: 01/22/19 06:30 Dose: Not Given Lisinopril (Prinivil) 2.5 mg PO DAILY [facility] Last Admin: 01/22/19 10:04 Dose: 2.5 mg Metoprolol Tartrate (Lopressor -) 50 mg PO TID [facility] Last Admin: 01/22/19 13:29 Dose: 50 mg Pantoprazole Sodium (Protonix -) 20 mg PO BID [facility] Last Admin: 01/22/19 10:04 Dose: 20 mg Rivaroxaban (Xarelto) 20 mg PO DAILY@1800 [facility] Last Admin: 01/21/19 17:44 Dose: 20 mg - Objective Vital Signs: Vital Signs Temperature 98.7 F 01/22/19 13:07 Pulse Rate 86 01/22/19 13:07 Respiratory Rate 18 01/22/19 13:07 Blood Pressure 109/80 01/22/19 13:07 O2 Sat by Pulse Oximetry (%) 99 01/21/19 21:00 Constitutional: Yes: No Distress, Calm Cardiovascular: Yes: Pulse Irregular Respiratory: Yes: Regular, CTA Bilaterally Gastrointestinal: Yes: Normal Bowel Sounds, Soft Musculoskeletal: Yes: WNL Extremities: Yes: WNL Neurological: Yes: Alert, Oriented Psychiatric: Yes: Alert Labs: CBC, BMP 01/18/19 05:40 01/13/19 12:10 Assessment/Plan Problem List - Problems (1) Afib Code(s): I48.91 - UNSPECIFIED ATRIAL FIBRILLATION Qualifiers: Atrial fibrillation type: chronic Qualified Code(s): I48.2 - Chronic atrial fibrillation (2) Ataxia Code(s): R27.0 - ATAXIA, UNSPECIFIED (3) Diabetes Code(s): E11.9 - TYPE 2 DIABETES MELLITUS WITHOUT COMPLICATIONS (4) HTN (hypertension) Code(s): I10 - ESSENTIAL (PRIMARY) HYPERTENSION (5) Osteomyelitis Code(s): M86.9 - OSTEOMYELITIS, UNSPECIFIED (6) Schizophrenia Code(s): F20.9 - SCHIZOPHRENIA, UNSPECIFIED plan continue current mgmt blood cx pending close watch rest as per the team
--- NOTE | 2019-01-22 14:48 | PN ---
Progress Note (short form) - Note Progress Note: Pt seen/examined at bedside, feeling well, tolerating diet, having brown bms per nursing staff. On examination: Pt appears well, comfortable Abd soft, nt, nd Labs reviewed. CBC, BMP 01/18/19 05:40 01/13/19 12:10 Assessment/plan: 68yo male h/o afib on xarelto, schizophrenia, and L leg osteomyelitis presenting with ataxia without acute CT findings asked to evaluate for anemia. Microcytosis with prior evidence of iron deficiency. No overt bleeding. Possible remote EGD/colonoscopy. Pt had been unsure of undergoing endoscopies then declined. Pt deemed not to have capacity per psychiatry. -Continue to monitor Hb and for evidence of bleeding -Update iron studies/ferritin -Request primary team clarify consent and NOK information if possible -Would request cardiology recommendations regarding if antithrombotics could be safely held if endoscopy pursued -Continue optimization from cardiac and neuro standpoint -Pending above will determine timing of endoscopic evaluation -If overt bleeding or drop in Hb in the interim please notify GI for possible more urgent intervention. Problem List - Problems (1) Anemia Code(s): D64.9 - ANEMIA, UNSPECIFIED Qualifiers: Anemia type: unspecified type Qualified Code(s): D64.9 - Anemia, unspecified
[2019-01-22] MEDS: RIVAROXABAN 20 MG TABLET PO SCH (17:20)
--- NOTE | 2019-01-22 19:54 | PN ---
Progress Note, Physician - Current Medication List Current Medications: Active Medications Acetaminophen (Tylenol -) 650 mg PO Q6H PRN PRN Reason: FEVER Last Admin: 01/16/19 23:14 Dose: 650 mg Aripiprazole (Abilify) 5 mg PO DAILY [facility] Last Admin: 01/22/19 10:04 Dose: 5 mg Benztropine Mesylate (Cogentin -) 0.5 mg PO HS [facility] Last Admin: 01/21/19 22:22 Dose: 0.5 mg Diltiazem HCl (Cardizem Injection -) 10 mg IVPUSH Q4H PRN PRN Reason: TACHYCARDIA Furosemide (Lasix -) 20 mg PO DAILY [facility] Last Admin: 01/22/19 10:04 Dose: 20 mg Insulin Aspart (Novolog Vial Sliding Scale -) 1 vial SQ BIDI [facility]; Protocol Last Admin: 01/22/19 16:17 Dose: 4 units Lisinopril (Prinivil) 2.5 mg PO DAILY [facility] Last Admin: 01/22/19 10:04 Dose: 2.5 mg Metoprolol Tartrate (Lopressor -) 50 mg PO TID [facility] Last Admin: 01/22/19 13:29 Dose: 50 mg Pantoprazole Sodium (Protonix -) 20 mg PO BID [facility] Last Admin: 01/22/19 10:04 Dose: 20 mg Rivaroxaban (Xarelto) 20 mg PO DAILY@1800 [facility] Last Admin: 01/22/19 17:20 Dose: 20 mg - Objective Vital Signs: Vital Signs Temperature 98.6 F 01/22/19 17:00 Pulse Rate 90 01/22/19 17:00 Respiratory Rate 21 H 01/22/19 17:00 Blood Pressure 100/75 01/22/19 17:00 O2 Sat by Pulse Oximetry (%) 96 01/22/19 09:00 Constitutional: Yes: No Distress HENT: Yes: Atraumatic Neck: Yes: Supple Cardiovascular: Yes: Regular Rate and Rhythm Respiratory: Yes: CTA Bilaterally Gastrointestinal: Yes: Normal Bowel Sounds Extremities: Yes: WNL Edema: No Neurological: Yes: Alert, Oriented Labs: CBC, BMP 01/18/19 05:40 01/13/19 12:10 Problem List - Problems (1) Afib Assessment/Plan: meds getting adjusted cardiology on board Code(s): I48.91 - UNSPECIFIED ATRIAL FIBRILLATION Qualifiers: Atrial fibrillation type: persistent Qualified Code(s): I48.1 - Persistent atrial fibrillation (2) Ataxia Assessment/Plan: pt eval Code(s): R27.0 - ATAXIA, UNSPECIFIED (3) Diabetes Assessment/Plan: insulin sliding scale and bgms Code(s): E11.9 - TYPE 2 DIABETES MELLITUS WITHOUT COMPLICATIONS (4) HTN (hypertension) Code(s): I10 - ESSENTIAL (PRIMARY) HYPERTENSION Qualifiers: Hypertension type: essential hypertension Qualified Code(s): I10 - Essential (primary) hypertension (5) Osteomyelitis Code(s): M86.9 - OSTEOMYELITIS, UNSPECIFIED (6) Schizophrenia Assessment/Plan: continue home meds Code(s): F20.9 - SCHIZOPHRENIA, UNSPECIFIED (7) Anemia Assessment/Plan: need gi work up need consent marylou on board rehabilitation case coordinator note reviewed regarding consent Code(s): D64.9 - ANEMIA, UNSPECIFIED Qualifiers: Anemia type: unspecified type Qualified Code(s): D64.9 - Anemia, unspecified
[2019-01-22] MEDS: BENZTROPINE MESYLATE 0.5 MG TABLET (FP) PO SCH (22:01)
[2019-01-23] MEDS ORDERED: PT OWN MED DRAWER 7, Y5N ONE ×3 (06:21→21:02)
[2019-01-23] MEDS: METOPROLOL TARTRATE 50 MG TABLET (FP) PO SCH ×3 (06:40→21:06)
[2019-01-23] MEDS: INSULIN SLIDING SCALE (NOVOLOG) 1 VIAL SQ SCH ×2 (06:40→17:27)
[2019-01-23] MEDS: PANTOPRAZOLE 20 MG TABLET (FP) PO SCH ×2 (10:32→21:06)
[2019-01-23] MEDS: LISINOPRIL 5 MG TABLET (FP) PO SCH ×2 (10:32→10:37)
[2019-01-23] MEDS: FUROSEMIDE 20 MG TABLET (FP) PO SCH (10:32)
[2019-01-23] MEDS: ARIPiprazole 5 MG TABLET (FP) PO SCH (10:32)
--- NOTE | 2019-01-23 12:48 | PN ---
Progress Note, Physician History of Present Illness: Rate-controlled afib, asymptomatic and denies chest pain, dyspnea, palpitations. Patient lacks mental capacity to consent for endoscopy. - Current Medication List Current Medications: Active Medications Acetaminophen (Tylenol -) 650 mg PO Q6H PRN PRN Reason: FEVER Last Admin: 01/16/19 23:14 Dose: 650 mg Aripiprazole (Abilify) 5 mg PO DAILY [facility] Last Admin: 01/23/19 10:32 Dose: 5 mg Benztropine Mesylate (Cogentin -) 0.5 mg PO HS [facility] Last Admin: 01/22/19 22:01 Dose: 0.5 mg Diltiazem HCl (Cardizem Injection -) 10 mg IVPUSH Q4H PRN PRN Reason: TACHYCARDIA Furosemide (Lasix -) 20 mg PO DAILY [facility] Last Admin: 01/23/19 10:32 Dose: 20 mg Insulin Aspart (Novolog Vial Sliding Scale -) 1 vial SQ BIDI [facility]; Protocol Last Admin: 01/23/19 06:40 Dose: 2 units Lisinopril (Prinivil) 2.5 mg PO DAILY [facility] Last Admin: 01/23/19 10:37 Dose: Not Given Metoprolol Tartrate (Lopressor -) 50 mg PO TID [facility] Last Admin: 01/23/19 06:40 Dose: 50 mg Pantoprazole Sodium (Protonix -) 20 mg PO BID [facility] Last Admin: 01/23/19 10:32 Dose: 20 mg Rivaroxaban (Xarelto) 20 mg PO DAILY@1800 [facility] Last Admin: 01/22/19 17:20 Dose: 20 mg - Objective Vital Signs: Vital Signs Temperature 98.6 F 01/23/19 07:00 Pulse Rate 91 H 01/23/19 11:00 Respiratory Rate 13 01/23/19 07:00 Blood Pressure 111/75 01/23/19 11:00 O2 Sat by Pulse Oximetry (%) 97 01/23/19 09:00 Constitutional: Yes: No Distress, Calm Neck: Yes: Supple Cardiovascular: Yes: Pulse Irregular Respiratory: Yes: Regular, Diminished Gastrointestinal: Yes: Soft, Hypoactive Bowel Sounds Edema: No Labs: CBC, BMP 01/18/19 05:40 01/13/19 12:10 - ....Imaging EKG: Report Reviewed (Tele: Afib) Problem List - Problems (1) Demand ischemia Code(s): I24.8 - OTHER FORMS OF ACUTE ISCHEMIC HEART DISEASE (2) Anemia Code(s): D64.9 - ANEMIA, UNSPECIFIED Qualifiers: Anemia type: unspecified type Qualified Code(s): D64.9 - Anemia, unspecified (3) Diastolic dysfunction Code(s): I51.89 - OTHER ILL-DEFINED HEART DISEASES (4) Afib Code(s): I48.91 - UNSPECIFIED ATRIAL FIBRILLATION Qualifiers: Atrial fibrillation type: persistent Qualified Code(s): I48.1 - Persistent atrial fibrillation (5) HTN (hypertension) Code(s): I10 - ESSENTIAL (PRIMARY) HYPERTENSION Qualifiers: Hypertension type: essential hypertension Qualified Code(s): I10 - Essential (primary) hypertension (6) Schizophrenia Code(s): F20.9 - SCHIZOPHRENIA, UNSPECIFIED Assessment/Plan 01/22/2019 Echo: Normal and RV size and fxn LVEF 53%, mild TR RVSP 34 mmHg, tr- mild MR, normal biatrial sizes 1. Persistent atrial fibrillation with improved rate-control, [id number] score of 5 on DOAC's/Xarelto 2. Coronary artery disease with evidence of demand ischemia no clinical angina pectoris 3. Probable diastolic left ventricular dysfunction with clinical class 0 [place] [employer] classification left ventricular failure 4. Hypertensive cardiovascular disease 5. Diabetes mellitus 6. Hypercholesterolemia 7. History of cerebrovascular disease 8. History of schizophrenia 9. History of ataxia 10. History of osteomyelitis 11. Fe deficience microcytic anemia PLAN: 1. Continue Lopressor 50 tid and and further titrated dosage as tolerated and as needed, hemodynamics permitting 2. Continue Prinivil 2.5 qd, hemodynamics permitting 3. Continue Xarelto 20 qd with close monitoring of hemoglobin level post transfusion. If endoscopy is to be pursued, hold Xarelto for 2 days prior to procedure and resume once post-procedure hemostasis is assured 4. Continue diuretic therapy/Lasix 20 qd with close monitoring of renal function and electrolytes 5. Patient lacks capacity to consent to endoscopic evaluation of anemia
[2019-01-23] MEDS: RIVAROXABAN 20 MG TABLET PO SCH (17:37)
--- NOTE | 2019-01-23 18:13 | PN ---
Progress Note, Physician History of Present Illness: stable - Current Medication List Current Medications: Active Medications Acetaminophen (Tylenol -) 650 mg PO Q6H PRN PRN Reason: FEVER Last Admin: 01/16/19 23:14 Dose: 650 mg Aripiprazole (Abilify) 5 mg PO DAILY [facility] Last Admin: 01/23/19 10:32 Dose: 5 mg Benztropine Mesylate (Cogentin -) 0.5 mg PO HS [facility] Last Admin: 01/22/19 22:01 Dose: 0.5 mg Diltiazem HCl (Cardizem Injection -) 10 mg IVPUSH Q4H PRN PRN Reason: TACHYCARDIA Furosemide (Lasix -) 20 mg PO DAILY [facility] Last Admin: 01/23/19 10:32 Dose: 20 mg Insulin Aspart (Novolog Vial Sliding Scale -) 1 vial SQ BIDI [facility]; Protocol Last Admin: 01/23/19 17:27 Dose: 2 units Lisinopril (Prinivil) 2.5 mg PO DAILY [facility] Last Admin: 01/23/19 10:37 Dose: Not Given Metoprolol Tartrate (Lopressor -) 50 mg PO TID [facility] Last Admin: 01/23/19 13:44 Dose: 50 mg Pantoprazole Sodium (Protonix -) 20 mg PO BID [facility] Last Admin: 01/23/19 10:32 Dose: 20 mg Rivaroxaban (Xarelto) 20 mg PO DAILY@1800 [facility] Last Admin: 01/23/19 17:37 Dose: 20 mg - Objective Vital Signs: Vital Signs Temperature 98.7 F 01/23/19 14:00 Pulse Rate 87 01/23/19 16:00 Respiratory Rate 12 01/23/19 16:00 Blood Pressure 98/77 01/23/19 16:00 O2 Sat by Pulse Oximetry (%) 97 01/23/19 09:00 Constitutional: Yes: No Distress HENT: Yes: Atraumatic Neck: Yes: Supple Cardiovascular: Yes: Regular Rate and Rhythm Respiratory: Yes: CTA Bilaterally Gastrointestinal: Yes: Normal Bowel Sounds Extremities: Yes: WNL Edema: No Peripheral Pulses WNL: Yes Neurological: Yes: Alert, Oriented Labs: CBC, BMP 01/18/19 05:40 01/13/19 12:10 Problem List - Problems (1) Afib Assessment/Plan: meds getting adjusted cardiology on board Code(s): I48.91 - UNSPECIFIED ATRIAL FIBRILLATION Qualifiers: Atrial fibrillation type: persistent Qualified Code(s): I48.1 - Persistent atrial fibrillation (2) Ataxia Assessment/Plan: pt eval Code(s): R27.0 - ATAXIA, UNSPECIFIED (3) Diabetes Assessment/Plan: insulin sliding scale and bgms Code(s): E11.9 - TYPE 2 DIABETES MELLITUS WITHOUT COMPLICATIONS (4) HTN (hypertension) Code(s): I10 - ESSENTIAL (PRIMARY) HYPERTENSION Qualifiers: Hypertension type: essential hypertension Qualified Code(s): I10 - Essential (primary) hypertension (5) Osteomyelitis Code(s): M86.9 - OSTEOMYELITIS, UNSPECIFIED (6) Schizophrenia Code(s): F20.9 - SCHIZOPHRENIA, UNSPECIFIED (7) Anemia Assessment/Plan: need gi work up need consent marylou on board Code(s): D64.9 - ANEMIA, UNSPECIFIED Qualifiers: Anemia type: unspecified type Qualified Code(s): D64.9 - Anemia, unspecified
[2019-01-23] MEDS: BENZTROPINE MESYLATE 0.5 MG TABLET (FP) PO SCH (21:06)
[2019-01-24] MEDS: INSULIN SLIDING SCALE (NOVOLOG) 1 VIAL SQ SCH ×2 (06:19→17:11)
[2019-01-24] MEDS: METOPROLOL TARTRATE 50 MG TABLET (FP) PO SCH ×3 (06:22→21:22)
[2019-01-24] MEDS: ARIPiprazole 5 MG TABLET (FP) PO SCH (10:26)
[2019-01-24] MEDS: FUROSEMIDE 20 MG TABLET (FP) PO SCH (10:26)
[2019-01-24] MEDS: PANTOPRAZOLE 20 MG TABLET (FP) PO SCH ×2 (10:27→21:22)
[2019-01-24] MEDS: LISINOPRIL 5 MG TABLET (FP) PO SCH (10:43)
--- NOTE | 2019-01-24 13:41 | PN ---
Progress Note, Physician History of Present Illness: Rate-controlled afib, asymptomatic and denies chest pain, dyspnea, palpitations. Patient lacks mental capacity to consent for endoscopy. - Current Medication List Current Medications: Active Medications Acetaminophen (Tylenol -) 650 mg PO Q6H PRN PRN Reason: FEVER Last Admin: 01/16/19 23:14 Dose: 650 mg Aripiprazole (Abilify) 5 mg PO DAILY [facility] Last Admin: 01/24/19 10:26 Dose: 5 mg Benztropine Mesylate (Cogentin -) 0.5 mg PO HS [facility] Last Admin: 01/23/19 21:06 Dose: 0.5 mg Diltiazem HCl (Cardizem Injection -) 10 mg IVPUSH Q4H PRN PRN Reason: TACHYCARDIA Furosemide (Lasix -) 20 mg PO DAILY [facility] Last Admin: 01/24/19 10:26 Dose: 20 mg Insulin Aspart (Novolog Vial Sliding Scale -) 1 vial SQ BIDI [facility]; Protocol Last Admin: 01/24/19 06:19 Dose: 2 units Lisinopril (Prinivil) 2.5 mg PO DAILY [facility] Last Admin: 01/24/19 10:43 Dose: 2.5 mg Metoprolol Tartrate (Lopressor -) 50 mg PO TID [facility] Last Admin: 01/24/19 06:22 Dose: 50 mg Pantoprazole Sodium (Protonix -) 20 mg PO BID [facility] Last Admin: 01/24/19 10:27 Dose: 20 mg Rivaroxaban (Xarelto) 20 mg PO DAILY@1800 [facility] Last Admin: 01/23/19 17:37 Dose: 20 mg - Objective Vital Signs: Vital Signs Temperature 98.4 F 01/24/19 06:00 Pulse Rate 88 01/24/19 08:19 Respiratory Rate 17 01/24/19 08:19 Blood Pressure 90/67 01/24/19 08:19 O2 Sat by Pulse Oximetry (%) 97 01/24/19 08:18 Constitutional: Yes: No Distress, Calm Neck: Yes: Supple Cardiovascular: Yes: Pulse Irregular Respiratory: Yes: Regular, Diminished Gastrointestinal: Yes: Soft, Hypoactive Bowel Sounds Edema: No Labs: CBC, BMP 01/18/19 05:40 01/13/19 12:10 - ....Imaging EKG: Report Reviewed (Tele: Rate-controlled afib) Problem List - Problems (1) Demand ischemia Code(s): I24.8 - OTHER FORMS OF ACUTE ISCHEMIC HEART DISEASE (2) Anemia Code(s): D64.9 - ANEMIA, UNSPECIFIED Qualifiers: Anemia type: unspecified type Qualified Code(s): D64.9 - Anemia, unspecified (3) Diastolic dysfunction Code(s): I51.89 - OTHER ILL-DEFINED HEART DISEASES (4) Afib Code(s): I48.91 - UNSPECIFIED ATRIAL FIBRILLATION Qualifiers: Atrial fibrillation type: persistent Qualified Code(s): I48.1 - Persistent atrial fibrillation (5) HTN (hypertension) Code(s): I10 - ESSENTIAL (PRIMARY) HYPERTENSION Qualifiers: Hypertension type: essential hypertension Qualified Code(s): I10 - Essential (primary) hypertension (6) Schizophrenia Code(s): F20.9 - SCHIZOPHRENIA, UNSPECIFIED Assessment/Plan 01/22/2019 Echo: Normal and RV size and fxn LVEF 53%, mild TR RVSP 34 mmHg, tr- mild MR, normal biatrial sizes 1. Persistent atrial fibrillation with improved rate-control, [id number] score of 5 on DOAC's/Xarelto 2. Coronary artery disease with evidence of demand ischemia no clinical angina pectoris 3. Probable diastolic left ventricular dysfunction with clinical class 0 [place] [employer] classification left ventricular failure 4. Hypertensive cardiovascular disease 5. Diabetes mellitus 6. Hypercholesterolemia 7. History of cerebrovascular disease 8. History of schizophrenia 9. History of ataxia 10. History of osteomyelitis 11. Fe deficience microcytic anemia PLAN: 1. Continue Lopressor 50 tid and and further titrated dosage as tolerated and as needed, hemodynamics permitting 2. Continue Prinivil 2.5 qd, hemodynamics permitting 3. Continue Xarelto 20 qd with close monitoring of hemoglobin level post transfusion. If endoscopy is to be pursued, hold Xarelto for 2 days prior to procedure and resume once post-procedure hemostasis is assured 4. Continue diuretic therapy/Lasix 20 qd with close monitoring of renal function and electrolytes 5. Patient lacks capacity to consent to endoscopic evaluation of anemia
[2019-01-24] MEDS ORDERED: PT OWN MED DRAWER 7, Y5N ONE (14:22)
--- NOTE | 2019-01-24 14:46 | PN ---
Progress Note, Physician History of Present Illness: Rate-controlled afib, asymptomatic and denies chest pain, dyspnea, palpitations. Patient lacks mental capacity to consent for endoscopy. - Current Medication List Current Medications: Active Medications Acetaminophen (Tylenol -) 650 mg PO Q6H PRN PRN Reason: FEVER Last Admin: 01/16/19 23:14 Dose: 650 mg Aripiprazole (Abilify) 5 mg PO DAILY [facility] Last Admin: 01/24/19 10:26 Dose: 5 mg Benztropine Mesylate (Cogentin -) 0.5 mg PO HS [facility] Last Admin: 01/23/19 21:06 Dose: 0.5 mg Diltiazem HCl (Cardizem Injection -) 10 mg IVPUSH Q4H PRN PRN Reason: TACHYCARDIA Furosemide (Lasix -) 20 mg PO DAILY [facility] Last Admin: 01/24/19 10:26 Dose: 20 mg Insulin Aspart (Novolog Vial Sliding Scale -) 1 vial SQ BIDI [facility]; Protocol Last Admin: 01/24/19 06:19 Dose: 2 units Lisinopril (Prinivil) 2.5 mg PO DAILY [facility] Last Admin: 01/24/19 10:43 Dose: 2.5 mg Metoprolol Tartrate (Lopressor -) 50 mg PO TID [facility] Last Admin: 01/24/19 14:25 Dose: 50 mg Pantoprazole Sodium (Protonix -) 20 mg PO BID [facility] Last Admin: 01/24/19 10:27 Dose: 20 mg Rivaroxaban (Xarelto) 20 mg PO DAILY@1800 [facility] Last Admin: 01/23/19 17:37 Dose: 20 mg - Objective Vital Signs: Vital Signs Temperature 98.4 F 01/24/19 06:00 Pulse Rate 88 01/24/19 08:19 Respiratory Rate 17 01/24/19 08:19 Blood Pressure 90/67 01/24/19 08:19 O2 Sat by Pulse Oximetry (%) 97 01/24/19 08:18 Constitutional: Yes: No Distress, Calm Cardiovascular: Yes: Pulse Irregular, S1, S2 Gastrointestinal: Yes: Normal Bowel Sounds, Soft Musculoskeletal: Yes: WNL Extremities: Yes: Other Neurological: Yes: Alert, Other Psychiatric: Yes: Other Labs: CBC, BMP 01/18/19 05:40 01/13/19 12:10 Assessment/Plan Assessment/Plan Problem List - Problems (1) Afib Code(s): I48.91 - UNSPECIFIED ATRIAL FIBRILLATION Qualifiers: Atrial fibrillation type: chronic Qualified Code(s): I48.2 - Chronic atrial fibrillation (2) Ataxia Code(s): R27.0 - ATAXIA, UNSPECIFIED (3) Diabetes Code(s): E11.9 - TYPE 2 DIABETES MELLITUS WITHOUT COMPLICATIONS (4) HTN (hypertension) Code(s): I10 - ESSENTIAL (PRIMARY) HYPERTENSION (5) Osteomyelitis Code(s): M86.9 - OSTEOMYELITIS, UNSPECIFIED (6) Schizophrenia Code(s): F20.9 - SCHIZOPHRENIA, UNSPECIFIED plan continue current mgmt monitor heart rate plan for endoscopy rest as per the team
[2019-01-24] MEDS: RIVAROXABAN 20 MG TABLET PO SCH (17:13)
--- NOTE | 2019-01-24 17:30 | PN ---
Progress Note, Physician History of Present Illness: stable - Current Medication List Current Medications: Active Medications Acetaminophen (Tylenol -) 650 mg PO Q6H PRN PRN Reason: FEVER Last Admin: 01/16/19 23:14 Dose: 650 mg Aripiprazole (Abilify) 5 mg PO DAILY [facility] Last Admin: 01/24/19 10:26 Dose: 5 mg Benztropine Mesylate (Cogentin -) 0.5 mg PO HS [facility] Last Admin: 01/23/19 21:06 Dose: 0.5 mg Diltiazem HCl (Cardizem Injection -) 10 mg IVPUSH Q4H PRN PRN Reason: TACHYCARDIA Furosemide (Lasix -) 20 mg PO DAILY [facility] Last Admin: 01/24/19 10:26 Dose: 20 mg Insulin Aspart (Novolog Vial Sliding Scale -) 1 vial SQ BIDI [facility]; Protocol Last Admin: 01/24/19 17:11 Dose: 2 units Lisinopril (Prinivil) 2.5 mg PO DAILY [facility] Last Admin: 01/24/19 10:43 Dose: 2.5 mg Metoprolol Tartrate (Lopressor -) 50 mg PO TID [facility] Last Admin: 01/24/19 14:25 Dose: 50 mg Pantoprazole Sodium (Protonix -) 20 mg PO BID [facility] Last Admin: 01/24/19 10:27 Dose: 20 mg Rivaroxaban (Xarelto) 20 mg PO DAILY@1800 [facility] Last Admin: 01/24/19 17:13 Dose: 20 mg - Objective Vital Signs: Vital Signs Temperature 98.4 F 01/24/19 06:00 Pulse Rate 88 01/24/19 08:19 Respiratory Rate 17 01/24/19 08:19 Blood Pressure 90/67 01/24/19 08:19 O2 Sat by Pulse Oximetry (%) 97 01/24/19 08:18 Constitutional: Yes: No Distress HENT: Yes: Atraumatic Neck: Yes: Supple Cardiovascular: Yes: Regular Rate and Rhythm Respiratory: Yes: CTA Bilaterally Gastrointestinal: Yes: Normal Bowel Sounds Extremities: Yes: WNL Edema: No Neurological: Yes: Alert, Oriented Labs: CBC, BMP 01/18/19 05:40 01/13/19 12:10 Problem List - Problems (1) Afib Assessment/Plan: meds getting adjusted cardiology on board Code(s): I48.91 - UNSPECIFIED ATRIAL FIBRILLATION Qualifiers: Atrial fibrillation type: persistent Qualified Code(s): I48.1 - Persistent atrial fibrillation (2) Ataxia Assessment/Plan: possible rehab Code(s): R27.0 - ATAXIA, UNSPECIFIED (3) Diabetes Assessment/Plan: insulin sliding scale and bgms Code(s): E11.9 - TYPE 2 DIABETES MELLITUS WITHOUT COMPLICATIONS (4) HTN (hypertension) Code(s): I10 - ESSENTIAL (PRIMARY) HYPERTENSION Qualifiers: Hypertension type: essential hypertension Qualified Code(s): I10 - Essential (primary) hypertension (5) Osteomyelitis Code(s): M86.9 - OSTEOMYELITIS, UNSPECIFIED (6) Schizophrenia Assessment/Plan: continue home meds Code(s): F20.9 - SCHIZOPHRENIA, UNSPECIFIED (7) Anemia Assessment/Plan: need gi work up need consent marylou on board director case note reviewed regarding consent Code(s): D64.9 - ANEMIA, UNSPECIFIED Qualifiers: Anemia type: unspecified type Qualified Code(s): D64.9 - Anemia, unspecified
[2019-01-24] MEDS: BENZTROPINE MESYLATE 0.5 MG TABLET (FP) PO SCH (21:22)
[2019-01-25] MEDS: METOPROLOL TARTRATE 50 MG TABLET (FP) PO SCH ×3 (06:13→21:26)
[2019-01-25] MEDS ORDERED: INSULIN (NOVOLOG) ASPART 100 UNITS/ML 10ML VIAL ONE (06:33)
[2019-01-25] MEDS: INSULIN SLIDING SCALE (NOVOLOG) 1 VIAL SQ SCH ×2 (06:42→17:03)
[2019-01-25] MEDS: ARIPiprazole 5 MG TABLET (FP) PO SCH (09:55)
[2019-01-25] MEDS: FUROSEMIDE 20 MG TABLET (FP) PO SCH (09:55)
[2019-01-25] MEDS: PANTOPRAZOLE 20 MG TABLET (FP) PO SCH ×2 (09:55→21:26)
[2019-01-25] MEDS: LISINOPRIL 5 MG TABLET (FP) PO SCH (09:55)
--- NOTE | 2019-01-25 11:31 | PN ---
Progress Note, Physician Chief Complaint: Events noted AF rate controlled History of Present Illness: Patient was seen and examined. Awake. Chart was reviewed Denies chest pain or SOB - Current Medication List Current Medications: Active Medications Acetaminophen (Tylenol -) 650 mg PO Q6H PRN PRN Reason: FEVER Last Admin: 01/16/19 23:14 Dose: 650 mg Aripiprazole (Abilify) 5 mg PO DAILY [facility] Last Admin: 01/25/19 09:55 Dose: 5 mg Benztropine Mesylate (Cogentin -) 0.5 mg PO HS [facility] Last Admin: 01/24/19 21:22 Dose: 0.5 mg Diltiazem HCl (Cardizem Injection -) 10 mg IVPUSH Q4H PRN PRN Reason: TACHYCARDIA Furosemide (Lasix -) 20 mg PO DAILY [facility] Last Admin: 01/25/19 09:55 Dose: 20 mg Insulin Aspart (Novolog Vial Sliding Scale -) 1 vial SQ BIDI [facility]; Protocol Last Admin: 01/25/19 06:42 Dose: 2 units Lisinopril (Prinivil) 2.5 mg PO DAILY [facility] Last Admin: 01/25/19 09:55 Dose: 2.5 mg Metoprolol Tartrate (Lopressor -) 50 mg PO TID [facility] Last Admin: 01/25/19 06:13 Dose: 50 mg Pantoprazole Sodium (Protonix -) 20 mg PO BID [facility] Last Admin: 01/25/19 09:55 Dose: 20 mg Rivaroxaban (Xarelto) 20 mg PO DAILY@1800 [facility] Last Admin: 01/24/19 17:13 Dose: 20 mg - Objective Vital Signs: Vital Signs Temperature 98.8 F 01/25/19 08:00 Pulse Rate 86 01/25/19 08:00 Respiratory Rate 18 01/25/19 08:00 Blood Pressure 108/72 01/25/19 08:00 O2 Sat by Pulse Oximetry (%) 99 01/25/19 09:00 Neck: Yes: Supple Cardiovascular: Yes: Pulse Irregular, S1, S2 Respiratory: Yes: Diminished Gastrointestinal: Yes: Normal Bowel Sounds, Soft. No: Tenderness Edema: No Problem List - Problems (1) Afib Code(s): I48.91 - UNSPECIFIED ATRIAL FIBRILLATION Qualifiers: Atrial fibrillation type: persistent Qualified Code(s): I48.1 - Persistent atrial fibrillation (2) Anemia Code(s): D64.9 - ANEMIA, UNSPECIFIED Qualifiers: Anemia type: unspecified type Qualified Code(s): D64.9 - Anemia, unspecified (3) Demand ischemia Code(s): I24.8 - OTHER FORMS OF ACUTE ISCHEMIC HEART DISEASE (4) Diabetes Code(s): E11.9 - TYPE 2 DIABETES MELLITUS WITHOUT COMPLICATIONS (5) Diabetic peripheral vascular disease Code(s): E11.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 (6) HTN (hypertension) Code(s): I10 - ESSENTIAL (PRIMARY) HYPERTENSION Qualifiers: Hypertension type: essential hypertension Qualified Code(s): I10 - Essential (primary) hypertension (7) Schizophrenia Code(s): F20.9 - SCHIZOPHRENIA, UNSPECIFIED Assessment/Plan 1. Persistent AF, [id number] score of 5 on DOAC 2. CAD with demand ischemia 3. Diastolic dysfunction with clinical class 0 NYHA classification heart failure 4. DM 5. HTN 6. Hypercholesterolemia 7. History of schizophrenia 8. History of osteomyelitis 9. History of CVA PLAN: 1. Continue Lopressor and Prinivil as tolerated 3. Continue Xarelto 20 mg QD with close monitoring of hemoglobin. If endoscopy is to be pursued, hold Xarelto for 2 days prior to procedure and resume once post-procedure hemostasis is assured 4. Continue diuretic therapy with close monitoring of renal function and electrolytes 5. Patient lacks capacity to consent to endoscopic evaluation of anemia Further plans are to follow Homer Calvert MD
--- NOTE | 2019-01-25 12:21 | PN ---
Progress Note, Physician - Current Medication List Current Medications: Active Medications Acetaminophen (Tylenol -) 650 mg PO Q6H PRN PRN Reason: FEVER Last Admin: 01/16/19 23:14 Dose: 650 mg Aripiprazole (Abilify) 5 mg PO DAILY [facility] Last Admin: 01/25/19 09:55 Dose: 5 mg Benztropine Mesylate (Cogentin -) 0.5 mg PO HS [facility] Last Admin: 01/24/19 21:22 Dose: 0.5 mg Diltiazem HCl (Cardizem Injection -) 10 mg IVPUSH Q4H PRN PRN Reason: TACHYCARDIA Furosemide (Lasix -) 20 mg PO DAILY [facility] Last Admin: 01/25/19 09:55 Dose: 20 mg Insulin Aspart (Novolog Vial Sliding Scale -) 1 vial SQ BIDI [facility]; Protocol Last Admin: 01/25/19 06:42 Dose: 2 units Lisinopril (Prinivil) 2.5 mg PO DAILY [facility] Last Admin: 01/25/19 09:55 Dose: 2.5 mg Metoprolol Tartrate (Lopressor -) 50 mg PO TID [facility] Last Admin: 01/25/19 06:13 Dose: 50 mg Pantoprazole Sodium (Protonix -) 20 mg PO BID [facility] Last Admin: 01/25/19 09:55 Dose: 20 mg Rivaroxaban (Xarelto) 20 mg PO DAILY@1800 [facility] Last Admin: 01/24/19 17:13 Dose: 20 mg - Objective Vital Signs: Vital Signs Temperature 98.8 F 01/25/19 08:00 Pulse Rate 86 01/25/19 08:00 Respiratory Rate 18 01/25/19 08:00 Blood Pressure 108/72 01/25/19 08:00 O2 Sat by Pulse Oximetry (%) 99 01/25/19 09:00 Constitutional: Yes: No Distress HENT: Yes: Atraumatic Neck: Yes: Supple Cardiovascular: Yes: Regular Rate and Rhythm Respiratory: Yes: CTA Bilaterally Gastrointestinal: Yes: Normal Bowel Sounds Extremities: Yes: WNL Edema: No Neurological: Yes: Alert, Oriented Labs: CBC, BMP 01/18/19 05:40 01/13/19 12:10 Problem List - Problems (1) Afib Assessment/Plan: on meds stable Code(s): I48.91 - UNSPECIFIED ATRIAL FIBRILLATION Qualifiers: Atrial fibrillation type: persistent Qualified Code(s): I48.1 - Persistent atrial fibrillation (2) Ataxia Assessment/Plan: possible rehab Code(s): R27.0 - ATAXIA, UNSPECIFIED (3) Diabetes Assessment/Plan: insulin sliding scale and bgms Code(s): E11.9 - TYPE 2 DIABETES MELLITUS WITHOUT COMPLICATIONS (4) HTN (hypertension) Code(s): I10 - ESSENTIAL (PRIMARY) HYPERTENSION Qualifiers: Hypertension type: essential hypertension Qualified Code(s): I10 - Essential (primary) hypertension (5) Osteomyelitis Code(s): M86.9 - OSTEOMYELITIS, UNSPECIFIED (6) Schizophrenia Code(s): F20.9 - SCHIZOPHRENIA, UNSPECIFIED (7) Anemia Code(s): D64.9 - ANEMIA, UNSPECIFIED Qualifiers: Anemia type: unspecified type Qualified Code(s): D64.9 - Anemia, unspecified
[2019-01-25] MEDS: RIVAROXABAN 20 MG TABLET PO SCH (17:10)
[2019-01-25] MEDS ORDERED: PT OWN MED DRAWER 7, Y5N ONE (21:24)
[2019-01-25] MEDS: BENZTROPINE MESYLATE 0.5 MG TABLET (FP) PO SCH (21:26)
[2019-01-26] MEDS: INSULIN SLIDING SCALE (NOVOLOG) 1 VIAL SQ SCH ×2 (06:08→17:17)
[2019-01-26] MEDS: ACETAMINOPHEN 325 MG TABLET (FP) PO PRN ×2 (06:15→19:08)
[2019-01-26] MEDS: METOPROLOL TARTRATE 50 MG TABLET (FP) PO SCH ×3 (06:15→22:53)
--- NOTE | 2019-01-26 08:06 | PN ---
Progress Note, Physician Chief Complaint: Events noted AF with RVR History of Present Illness: Patient was seen and examined. Awake. Chart was reviewed Denies chest pain or SOB Complains of leg discomfort - Current Medication List Current Medications: Active Medications Acetaminophen (Tylenol -) 650 mg PO Q6H PRN PRN Reason: FEVER Last Admin: 01/26/19 06:15 Dose: 650 mg Aripiprazole (Abilify) 5 mg PO DAILY [facility] Last Admin: 01/25/19 09:55 Dose: 5 mg Benztropine Mesylate (Cogentin -) 0.5 mg PO HS [facility] Last Admin: 01/25/19 21:26 Dose: 0.5 mg Diltiazem HCl (Cardizem Injection -) 10 mg IVPUSH Q4H PRN PRN Reason: TACHYCARDIA Furosemide (Lasix -) 20 mg PO DAILY [facility] Last Admin: 01/25/19 09:55 Dose: 20 mg Insulin Aspart (Novolog Vial Sliding Scale -) 1 vial SQ BIDI [facility]; Protocol Last Admin: 01/26/19 06:08 Dose: Not Given Lisinopril (Prinivil) 2.5 mg PO DAILY [facility] Last Admin: 01/25/19 09:55 Dose: 2.5 mg Metoprolol Tartrate (Lopressor -) 50 mg PO TID [facility] Last Admin: 01/26/19 06:15 Dose: 50 mg Pantoprazole Sodium (Protonix -) 20 mg PO BID [facility] Last Admin: 01/25/19 21:26 Dose: 20 mg Rivaroxaban (Xarelto) 20 mg PO DAILY@1800 [facility] Last Admin: 01/25/19 17:10 Dose: 20 mg - Objective Vital Signs: Vital Signs Temperature 98 F 01/26/19 05:57 Pulse Rate 96 H 01/26/19 05:57 Respiratory Rate 20 01/26/19 05:57 Blood Pressure 108/73 01/26/19 05:57 O2 Sat by Pulse Oximetry (%) 99 01/25/19 21:00 Eyes: Yes: PERRL HENT: Yes: Atraumatic Neck: Yes: Supple Cardiovascular: Yes: Tachycardia, Pulse Irregular, S1, S2 Respiratory: Yes: Diminished Gastrointestinal: Yes: Normal Bowel Sounds, Soft. No: Tenderness Edema: No Additional Findings/Remarks: - Review of Systems Constitutional: denies: Chills, Fever Cardiovascular: denies Chest Pain. denies: Palpitations, Shortness of Breath Respiratory: denies: Cough, Hemoptysis, Orthopnea, PND, SOB, SOB on Exertion Gastrointestinal: denies: Abdominal Pain, Constipation, Diarrhea, Melena, Nausea , Rectal Bleeding, Vomiting Neurological: denies Dizziness, Headache. denies: Seizure, Syncope Problem List - Problems (1) Afib Code(s): I48.91 - UNSPECIFIED ATRIAL FIBRILLATION Qualifiers: Atrial fibrillation type: persistent Qualified Code(s): I48.1 - Persistent atrial fibrillation (2) Anemia Code(s): D64.9 - ANEMIA, UNSPECIFIED Qualifiers: Anemia type: unspecified type Qualified Code(s): D64.9 - Anemia, unspecified (3) Demand ischemia Code(s): I24.8 - OTHER FORMS OF ACUTE ISCHEMIC HEART DISEASE (4) Diabetes Code(s): E11.9 - TYPE 2 DIABETES MELLITUS WITHOUT COMPLICATIONS (5) Diabetic peripheral vascular disease Code(s): E11.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 (6) HTN (hypertension) Code(s): I10 - ESSENTIAL (PRIMARY) HYPERTENSION Qualifiers: Hypertension type: essential hypertension Qualified Code(s): I10 - Essential (primary) hypertension (7) Schizophrenia Code(s): F20.9 - SCHIZOPHRENIA, UNSPECIFIED Assessment/Plan 1. Persistent AF, [id number] score of 5 on DOAC 2. CAD with demand ischemia - troponins at baseline 3. Diastolic dysfunction with clinical class 0 NYHA classification heart failure 4. DM 5. HTN 6. Hypercholesterolemia 7. History of schizophrenia 8. History of osteomyelitis 9. History of CVA PLAN: 1. Continue Lopressor 50 mg TID (uptitrate if BP tolerates) and Prinivil as tolerated. Cardizem IV as needed 2. Continue Xarelto 20 mg QD with close monitoring of hemoglobin. If endoscopy is to be pursued, hold Xarelto for 2 days prior to procedure and resume once post-procedure hemostasis is assured 3. Continue diuretic therapy with close monitoring of renal function and electrolytes Further plans are to follow Homer Calvert MD
[2019-01-26] MEDS ORDERED: IBUPROFEN 600 MG TABLET (FP) PO ONE (09:00)
[2019-01-26 09:09] LABS: BASO % 0.7 % (0-2.0); EOS % 0.1 % (0-4.5); HEMATOCRIT 32.3 % (35.4-49); HEMOGLOBIN 10.4 GM/dL (11.7-16.9); LYMPH % 4.8 % (8-40); MCH 22.9 pg (25.7-33.7); MCHC 32.2 g/dl (32.0-35.9); MEAN CELL VOLUME 71.3 fl (80-96); MEAN PLT VOLUME 7.5 fl (7.5-11.1); MONO % 3.5 % (3.8-10.2); NEUT % 90.9 % (42.8-82.8); PLATELET COUNT 387 K/MM3 (134-434); RBC 4.54 M/mm3 (4.00-5.60); RDW 23.4 % (11.9-15.9); WHITE BLOOD COUNT 13.5 K/mm3 (4.0-10.0)
[2019-01-26] MEDS: LISINOPRIL 5 MG TABLET (FP) PO SCH (09:14)
[2019-01-26] MEDS: PANTOPRAZOLE 20 MG TABLET (FP) PO SCH ×2 (09:14→22:52)
[2019-01-26] MEDS: ARIPiprazole 5 MG TABLET (FP) PO SCH (09:15)
[2019-01-26] MEDS: FUROSEMIDE 20 MG TABLET (FP) PO SCH (09:15)
[2019-01-26] MEDS: dilTIAZem HCL 50 MG/10 ML - 10 ML VIAL IVPUSH PRN (09:23)
[2019-01-26 09:35] LABS: ALBUMIN 2.8 g/dl (3.4-5.0); BILIRUBIN,TOTAL 0.6 mg/dL (0.2-1); BLOOD UREA NITROGEN 23.5 mg/dL (7-18); CALCIUM 8.6 mg/dL (8.5-10.1); CREATININE 0.8 mg/dL (0.55-1.3); POTASSIUM 4.1 mmol/L (3.5-5.1); TOT PROT 8.5 g/dl (6.4-8.2)
[2019-01-26 09:43] LABS: ANISOCYTOSIS 1+; MACROCYTOSIS 0; OVALOCYTE 1+; PLATELET ESTIMATE NORMAL; TEAR DROP CELLS 1+
--- NOTE | 2019-01-26 14:31 | PN ---
Progress Note, Physician History of Present Illness: stable - Current Medication List Current Medications: Active Medications Acetaminophen (Tylenol -) 650 mg PO Q6H PRN PRN Reason: FEVER Last Admin: 01/26/19 06:15 Dose: 650 mg Aripiprazole (Abilify) 5 mg PO DAILY [facility] Last Admin: 01/26/19 09:15 Dose: 5 mg Benztropine Mesylate (Cogentin -) 0.5 mg PO HS [facility] Last Admin: 01/25/19 21:26 Dose: 0.5 mg Diltiazem HCl (Cardizem Injection -) 10 mg IVPUSH Q4H PRN PRN Reason: TACHYCARDIA Last Admin: 01/26/19 09:23 Dose: 10 mg Furosemide (Lasix -) 20 mg PO DAILY [facility] Last Admin: 01/26/19 09:15 Dose: 20 mg Insulin Aspart (Novolog Vial Sliding Scale -) 1 vial SQ BIDI [facility]; Protocol Last Admin: 01/26/19 06:08 Dose: Not Given Lisinopril (Prinivil) 2.5 mg PO DAILY [facility] Last Admin: 01/26/19 09:14 Dose: 2.5 mg Metoprolol Tartrate (Lopressor -) 50 mg PO TID [facility] Last Admin: 01/26/19 13:38 Dose: Not Given Pantoprazole Sodium (Protonix -) 20 mg PO BID [facility] Last Admin: 01/26/19 09:14 Dose: 20 mg Rivaroxaban (Xarelto) 20 mg PO DAILY@1800 [facility] Last Admin: 01/25/19 17:10 Dose: 20 mg - Objective Vital Signs: Vital Signs Temperature 98 F 01/26/19 05:57 Pulse Rate 102 H 01/26/19 12:55 Respiratory Rate 20 01/26/19 12:55 Blood Pressure 103/69 01/26/19 12:55 O2 Sat by Pulse Oximetry (%) 99 01/26/19 09:00 Constitutional: Yes: No Distress HENT: Yes: Atraumatic Neck: Yes: Supple Cardiovascular: Yes: Regular Rate and Rhythm Respiratory: Yes: CTA Bilaterally Gastrointestinal: Yes: Normal Bowel Sounds Extremities: Yes: WNL Edema: No Peripheral Pulses WNL: Yes Neurological: Yes: Alert, Oriented Labs: CBC, BMP 01/26/19 09:00 01/26/19 06:00 Problem List - Problems (1) Afib Assessment/Plan: on meds stable Code(s): I48.91 - UNSPECIFIED ATRIAL FIBRILLATION Qualifiers: Atrial fibrillation type: persistent Qualified Code(s): I48.1 - Persistent atrial fibrillation (2) Ataxia Assessment/Plan: possible rehab Code(s): R27.0 - ATAXIA, UNSPECIFIED (3) Diabetes Assessment/Plan: insulin sliding scale and bgms Code(s): E11.9 - TYPE 2 DIABETES MELLITUS WITHOUT COMPLICATIONS (4) HTN (hypertension) Code(s): I10 - ESSENTIAL (PRIMARY) HYPERTENSION Qualifiers: Hypertension type: essential hypertension Qualified Code(s): I10 - Essential (primary) hypertension (5) Osteomyelitis Code(s): M86.9 - OSTEOMYELITIS, UNSPECIFIED (6) Schizophrenia Assessment/Plan: continue home meds Code(s): F20.9 - SCHIZOPHRENIA, UNSPECIFIED (7) Anemia Assessment/Plan: need gi work up need consent marylou on board protective services case worker note reviewed regarding consent Code(s): D64.9 - ANEMIA, UNSPECIFIED Qualifiers: Anemia type: unspecified type Qualified Code(s): D64.9 - Anemia, unspecified Assessment/Plan dc to rehab if ok with gi patient need gi work up gi [facility] case manage r note for details
[2019-01-26] MEDS: RIVAROXABAN 20 MG TABLET PO SCH (17:01)
[2019-01-26] MEDS: BENZTROPINE MESYLATE 0.5 MG TABLET (FP) PO SCH (22:52)
[2019-01-27] MEDS ORDERED: IBUPROFEN 400 MG TABLET (FP) PO ONE (00:06)
[2019-01-27] MEDS: METOPROLOL TARTRATE 50 MG TABLET (FP) PO SCH ×3 (06:25→21:41)
[2019-01-27] MEDS: INSULIN SLIDING SCALE (NOVOLOG) 1 VIAL SQ SCH ×2 (06:27→16:35)
[2019-01-27] MEDS: LISINOPRIL 5 MG TABLET (FP) PO SCH (09:17)
[2019-01-27] MEDS: ARIPiprazole 5 MG TABLET (FP) PO SCH (09:17)
[2019-01-27] MEDS: PANTOPRAZOLE 20 MG TABLET (FP) PO SCH ×2 (09:20→21:41)
[2019-01-27] MEDS: FUROSEMIDE 20 MG TABLET (FP) PO SCH (09:20)
--- NOTE | 2019-01-27 09:59 | PN ---
Progress Note, Physician Chief Complaint: Events noted AF rate variable History of Present Illness: Patient was seen and examined. Awake. Chart was reviewed Denies chest pain or SOB - Current Medication List Current Medications: Active Medications Acetaminophen (Tylenol -) 650 mg PO Q6H PRN PRN Reason: FEVER Last Admin: 01/26/19 19:08 Dose: 650 mg Aripiprazole (Abilify) 5 mg PO DAILY [facility] Last Admin: 01/27/19 09:17 Dose: 5 mg Benztropine Mesylate (Cogentin -) 0.5 mg PO HS [facility] Last Admin: 01/26/19 22:52 Dose: 0.5 mg Diltiazem HCl (Cardizem Injection -) 10 mg IVPUSH Q4H PRN PRN Reason: TACHYCARDIA Last Admin: 01/26/19 09:23 Dose: 10 mg Furosemide (Lasix -) 20 mg PO DAILY [facility] Last Admin: 01/27/19 09:20 Dose: 20 mg Insulin Aspart (Novolog Vial Sliding Scale -) 1 vial SQ BIDI [facility]; Protocol Last Admin: 01/27/19 06:27 Dose: 2 units Lisinopril (Prinivil) 2.5 mg PO DAILY [facility] Last Admin: 01/27/19 09:17 Dose: 5 mg Metoprolol Tartrate (Lopressor -) 50 mg PO TID [facility] Last Admin: 01/27/19 06:25 Dose: 50 mg Pantoprazole Sodium (Protonix -) 20 mg PO BID [facility] Last Admin: 01/27/19 09:20 Dose: 20 mg Rivaroxaban (Xarelto) 20 mg PO DAILY@1800 [facility] Last Admin: 01/26/19 17:01 Dose: 20 mg - Objective Vital Signs: Vital Signs Temperature 98.2 F 01/26/19 23:00 Pulse Rate 91 H 01/27/19 06:28 Respiratory Rate 20 01/27/19 06:28 Blood Pressure 101/77 01/27/19 06:28 O2 Sat by Pulse Oximetry (%) 97 01/27/19 09:12 Eyes: Yes: PERRL HENT: Yes: Atraumatic Neck: Yes: Supple Cardiovascular: Yes: Pulse Irregular, S1, S2 Respiratory: Yes: Diminished Gastrointestinal: Yes: Normal Bowel Sounds, Soft. No: Tenderness Edema: No Additional Findings/Remarks: - Review of Systems Constitutional: denies: Chills, Fever Cardiovascular: denies Chest Pain. denies: Palpitations, Shortness of Breath Respiratory: denies: Cough, Hemoptysis, Orthopnea, PND, SOB, SOB on Exertion Gastrointestinal: denies: Abdominal Pain, Constipation, Diarrhea, Melena, Nausea , Rectal Bleeding, Vomiting Neurological: denies Dizziness, Headache. denies: Seizure, Syncope Labs: CBC, BMP 01/26/19 09:00 01/26/19 06:00 Problem List - Problems (1) Afib Code(s): I48.91 - UNSPECIFIED ATRIAL FIBRILLATION Qualifiers: Atrial fibrillation type: persistent Qualified Code(s): I48.1 - Persistent atrial fibrillation (2) Anemia Code(s): D64.9 - ANEMIA, UNSPECIFIED Qualifiers: Anemia type: unspecified type Qualified Code(s): D64.9 - Anemia, unspecified (3) Demand ischemia Code(s): I24.8 - OTHER FORMS OF ACUTE ISCHEMIC HEART DISEASE (4) Diabetes Code(s): E11.9 - TYPE 2 DIABETES MELLITUS WITHOUT COMPLICATIONS (5) Diabetic peripheral vascular disease Code(s): E11.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 (6) HTN (hypertension) Code(s): I10 - ESSENTIAL (PRIMARY) HYPERTENSION Qualifiers: Hypertension type: essential hypertension Qualified Code(s): I10 - Essential (primary) hypertension (7) Schizophrenia Code(s): F20.9 - SCHIZOPHRENIA, UNSPECIFIED Assessment/Plan 1. Persistent AF, [id number] score of 5 on DOAC 2. CAD with demand ischemia - troponins at baseline 3. Diastolic dysfunction with clinical class 0 NYHA classification heart failure 4. DM 5. HTN 6. Hypercholesterolemia 7. History of schizophrenia 8. History of osteomyelitis 9. History of CVA PLAN: 1. Continue Lopressor 50 mg TID (uptitrate if BP tolerates) and Prinivil as tolerated. Cardizem IV as needed 2. Continue Xarelto 20 mg QD with close monitoring of hemoglobin. If endoscopy is to be pursued, hold Xarelto for 2 days prior to procedure and resume once post-procedure 3. Continue diuretic therapy (PO Lasix) with close monitoring of renal function and electrolytes Further plans are to follow Homer Calvert MD
--- NOTE | 2019-01-27 13:44 | PN ---
Progress Note, Physician History of Present Illness: continues to have afib cardio on case - Current Medication List Current Medications: Active Medications Acetaminophen (Tylenol -) 650 mg PO Q6H PRN PRN Reason: FEVER Last Admin: 01/26/19 19:08 Dose: 650 mg Aripiprazole (Abilify) 5 mg PO DAILY [facility] Last Admin: 01/27/19 09:17 Dose: 5 mg Benztropine Mesylate (Cogentin -) 0.5 mg PO HS [facility] Last Admin: 01/26/19 22:52 Dose: 0.5 mg Diltiazem HCl (Cardizem Injection -) 10 mg IVPUSH Q4H PRN PRN Reason: TACHYCARDIA Last Admin: 01/26/19 09:23 Dose: 10 mg Furosemide (Lasix -) 20 mg PO DAILY [facility] Last Admin: 01/27/19 09:20 Dose: 20 mg Insulin Aspart (Novolog Vial Sliding Scale -) 1 vial SQ BIDI [facility]; Protocol Last Admin: 01/27/19 06:27 Dose: 2 units Lisinopril (Prinivil) 2.5 mg PO DAILY [facility] Last Admin: 01/27/19 09:17 Dose: 5 mg Metoprolol Tartrate (Lopressor -) 50 mg PO TID [facility] Last Admin: 01/27/19 06:25 Dose: 50 mg Pantoprazole Sodium (Protonix -) 20 mg PO BID [facility] Last Admin: 01/27/19 09:20 Dose: 20 mg Rivaroxaban (Xarelto) 20 mg PO DAILY@1800 [facility] Last Admin: 01/26/19 17:01 Dose: 20 mg - Objective Vital Signs: Vital Signs Temperature 98.2 F 01/26/19 23:00 Pulse Rate 89 01/27/19 11:43 Respiratory Rate 19 01/27/19 11:43 Blood Pressure 103/72 01/27/19 11:43 O2 Sat by Pulse Oximetry (%) 97 01/27/19 09:12 Constitutional: Yes: No Distress, Calm Cardiovascular: Yes: Pulse Irregular Respiratory: Yes: Regular, CTA Bilaterally Gastrointestinal: Yes: Normal Bowel Sounds, Soft Musculoskeletal: Yes: WNL Extremities: Yes: WNL Neurological: Yes: Alert, Oriented Psychiatric: Yes: Alert, Oriented Labs: CBC, BMP 01/26/19 09:00 01/26/19 06:00 Assessment/Plan Problem List - Problems (1) Afib Code(s): I48.91 - UNSPECIFIED ATRIAL FIBRILLATION Qualifiers: Atrial fibrillation type: chronic Qualified Code(s): I48.2 - Chronic atrial fibrillation (2) Ataxia Code(s): R27.0 - ATAXIA, UNSPECIFIED (3) Diabetes Code(s): E11.9 - TYPE 2 DIABETES MELLITUS WITHOUT COMPLICATIONS (4) HTN (hypertension) Code(s): I10 - ESSENTIAL (PRIMARY) HYPERTENSION (5) Osteomyelitis Code(s): M86.9 - OSTEOMYELITIS, UNSPECIFIED (6) Schizophrenia Code(s): F20.9 - SCHIZOPHRENIA, UNSPECIFIED plan continue current mgmt blood cx pending close watch rest as per the team
--- NOTE | 2019-01-27 17:13 | PN ---
Progress Note, Physician - Current Medication List Current Medications: Active Medications Acetaminophen (Tylenol -) 650 mg PO Q6H PRN PRN Reason: FEVER Last Admin: 01/26/19 19:08 Dose: 650 mg Aripiprazole (Abilify) 5 mg PO DAILY [facility] Last Admin: 01/27/19 09:17 Dose: 5 mg Benztropine Mesylate (Cogentin -) 0.5 mg PO HS [facility] Last Admin: 01/26/19 22:52 Dose: 0.5 mg Diltiazem HCl (Cardizem Injection -) 10 mg IVPUSH Q4H PRN PRN Reason: TACHYCARDIA Last Admin: 01/26/19 09:23 Dose: 10 mg Furosemide (Lasix -) 20 mg PO DAILY [facility] Last Admin: 01/27/19 09:20 Dose: 20 mg Insulin Aspart (Novolog Vial Sliding Scale -) 1 vial SQ BIDI [facility]; Protocol Last Admin: 01/27/19 16:35 Dose: 4 units Lisinopril (Prinivil) 2.5 mg PO DAILY [facility] Last Admin: 01/27/19 09:17 Dose: 5 mg Metoprolol Tartrate (Lopressor -) 50 mg PO TID [facility] Last Admin: 01/27/19 13:57 Dose: 50 mg Pantoprazole Sodium (Protonix -) 20 mg PO BID [facility] Last Admin: 01/27/19 09:20 Dose: 20 mg Rivaroxaban (Xarelto) 20 mg PO DAILY@1800 [facility] Last Admin: 01/26/19 17:01 Dose: 20 mg - Objective Vital Signs: Vital Signs Temperature 99.4 F 01/27/19 16:18 Pulse Rate 116 H 01/27/19 16:18 Respiratory Rate 23 H 01/27/19 16:18 Blood Pressure 96/66 01/27/19 16:18 O2 Sat by Pulse Oximetry (%) 97 01/27/19 09:12 Constitutional: Yes: No Distress HENT: Yes: Atraumatic Neck: Yes: Supple Cardiovascular: Yes: Regular Rate and Rhythm Respiratory: Yes: CTA Bilaterally Gastrointestinal: Yes: Normal Bowel Sounds Extremities: Yes: WNL Edema: No Neurological: Yes: Alert Labs: CBC, BMP 01/26/19 09:00 01/26/19 06:00 Problem List - Problems (1) Afib Assessment/Plan: on meds events noted, was given iv cardizem last night Code(s): I48.91 - UNSPECIFIED ATRIAL FIBRILLATION Qualifiers: Atrial fibrillation type: persistent Qualified Code(s): I48.1 - Persistent atrial fibrillation (2) Ataxia Assessment/Plan: possible rehab Code(s): R27.0 - ATAXIA, UNSPECIFIED (3) Diabetes Assessment/Plan: insulin sliding scale and bgms Code(s): E11.9 - TYPE 2 DIABETES MELLITUS WITHOUT COMPLICATIONS (4) HTN (hypertension) Code(s): I10 - ESSENTIAL (PRIMARY) HYPERTENSION Qualifiers: Hypertension type: essential hypertension Qualified Code(s): I10 - Essential (primary) hypertension (5) Osteomyelitis Code(s): M86.9 - OSTEOMYELITIS, UNSPECIFIED (6) Schizophrenia Assessment/Plan: continue home meds Code(s): F20.9 - SCHIZOPHRENIA, UNSPECIFIED (7) Anemia Assessment/Plan: need gi work up need consent marylou on board transplant case manager note reviewed regarding consent Code(s): D64.9 - ANEMIA, UNSPECIFIED Qualifiers: Anemia type: unspecified type Qualified Code(s): D64.9 - Anemia, unspecified
[2019-01-27] MEDS: RIVAROXABAN 20 MG TABLET PO SCH (18:13)
[2019-01-27] MEDS ORDERED: PT OWN MED DRAWER 7, Y5N ONE (21:24)
[2019-01-27] MEDS: ACETAMINOPHEN 325 MG TABLET (FP) PO PRN (21:40)
[2019-01-27] MEDS: BENZTROPINE MESYLATE 0.5 MG TABLET (FP) PO SCH (21:41)
[2019-01-27] MEDS: dilTIAZem HCL 50 MG/10 ML - 10 ML VIAL IVPUSH PRN (22:35)
[2019-01-28] MEDS: INSULIN SLIDING SCALE (NOVOLOG) 1 VIAL SQ SCH ×2 (06:09→17:25)
[2019-01-28] MEDS: METOPROLOL TARTRATE 50 MG TABLET (FP) PO SCH ×3 (06:09→21:20)
[2019-01-28] MEDS: LISINOPRIL 5 MG TABLET (FP) PO SCH (09:42)
[2019-01-28] MEDS: FUROSEMIDE 20 MG TABLET (FP) PO SCH (09:42)
[2019-01-28] MEDS: ARIPiprazole 5 MG TABLET (FP) PO SCH (09:42)
[2019-01-28] MEDS: PANTOPRAZOLE 20 MG TABLET (FP) PO SCH ×2 (09:42→21:20)
--- NOTE | 2019-01-28 11:41 | PN ---
Progress Note, Physician Chief Complaint: Events noted AF rate variable History of Present Illness: Patient was seen and examined. Awake. Chart was reviewed Denies chest pain or SOB - Current Medication List Current Medications: Active Medications Acetaminophen (Tylenol -) 650 mg PO Q6H PRN PRN Reason: FEVER Last Admin: 01/27/19 21:40 Dose: 650 mg Aripiprazole (Abilify) 5 mg PO DAILY [facility] Last Admin: 01/28/19 09:42 Dose: 5 mg Benztropine Mesylate (Cogentin -) 0.5 mg PO HS [facility] Last Admin: 01/27/19 21:41 Dose: 0.5 mg Diltiazem HCl (Cardizem Injection -) 10 mg IVPUSH Q4H PRN PRN Reason: TACHYCARDIA Last Admin: 01/27/19 22:35 Dose: 10 mg Furosemide (Lasix -) 20 mg PO DAILY [facility] Last Admin: 01/28/19 09:42 Dose: 20 mg Insulin Aspart (Novolog Vial Sliding Scale -) 1 vial SQ BIDI [facility]; Protocol Last Admin: 01/28/19 06:09 Dose: 4 units Lisinopril (Prinivil) 2.5 mg PO DAILY [facility] Last Admin: 01/28/19 09:42 Dose: 2.5 mg Metoprolol Tartrate (Lopressor -) 50 mg PO TID [facility] Last Admin: 01/28/19 06:09 Dose: 50 mg Pantoprazole Sodium (Protonix -) 20 mg PO BID [facility] Last Admin: 01/28/19 09:42 Dose: 20 mg Rivaroxaban (Xarelto) 20 mg PO DAILY@1800 [facility] Last Admin: 01/27/19 18:13 Dose: 20 mg - Objective Vital Signs: Vital Signs Temperature 98.8 F 01/28/19 08:00 Pulse Rate 111 H 01/28/19 08:00 Respiratory Rate 22 H 01/28/19 08:00 Blood Pressure 107/68 01/28/19 08:00 O2 Sat by Pulse Oximetry (%) 99 01/28/19 09:00 Eyes: Yes: PERRL HENT: Yes: Atraumatic Neck: Yes: Supple Cardiovascular: Yes: Pulse Irregular, S1, S2 Respiratory: Yes: Diminished Gastrointestinal: Yes: Normal Bowel Sounds, Soft. No: Tenderness Edema: No Additional Findings/Remarks: - Review of Systems Constitutional: denies: Chills, Fever Cardiovascular: denies Chest Pain. denies: Palpitations, Shortness of Breath Respiratory: denies: Cough, Hemoptysis, Orthopnea, PND, SOB, SOB on Exertion Gastrointestinal: denies: Abdominal Pain, Constipation, Diarrhea, Melena, Nausea , Rectal Bleeding, Vomiting Neurological: denies Dizziness, Headache. denies: Seizure, Syncope Problem List - Problems (1) Afib Code(s): I48.91 - UNSPECIFIED ATRIAL FIBRILLATION Qualifiers: Atrial fibrillation type: persistent Qualified Code(s): I48.1 - Persistent atrial fibrillation (2) Anemia Code(s): D64.9 - ANEMIA, UNSPECIFIED Qualifiers: Anemia type: unspecified type Qualified Code(s): D64.9 - Anemia, unspecified (3) Demand ischemia Code(s): I24.8 - OTHER FORMS OF ACUTE ISCHEMIC HEART DISEASE (4) Diabetes Code(s): E11.9 - TYPE 2 DIABETES MELLITUS WITHOUT COMPLICATIONS (5) Diabetic peripheral vascular disease Code(s): E11.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 (6) HTN (hypertension) Code(s): I10 - ESSENTIAL (PRIMARY) HYPERTENSION Qualifiers: Hypertension type: essential hypertension Qualified Code(s): I10 - Essential (primary) hypertension (7) Schizophrenia Code(s): F20.9 - SCHIZOPHRENIA, UNSPECIFIED Assessment/Plan 1. Persistent AF, [id number] score of 5 on DOAC 2. CAD with demand ischemia 3. Diastolic dysfunction with clinical class 0 NYHA classification heart failure 4. DM 5. HTN 6. Hypercholesterolemia 7. History of schizophrenia 8. History of osteomyelitis 9. History of CVA PLAN: 1. Continue Lopressor 50 mg TID (uptitrate if BP tolerates) and Prinivil as tolerated. Cardizem IV as needed 2. Continue Xarelto 20 mg QD with close monitoring of hemoglobin. If endoscopy is to be pursued, hold Xarelto for 2 days prior to procedure and resume once post-procedure 3. Continue diuretic therapy (PO Lasix) with close monitoring of renal function and electrolytes Further plans are to follow Homer Calvert MD
--- NOTE | 2019-01-28 12:36 | PN ---
Progress Note, Physician History of Present Illness: afib no new issues - Current Medication List Current Medications: Active Medications Acetaminophen (Tylenol -) 650 mg PO Q6H PRN PRN Reason: FEVER Last Admin: 01/27/19 21:40 Dose: 650 mg Aripiprazole (Abilify) 5 mg PO DAILY [facility] Last Admin: 01/28/19 09:42 Dose: 5 mg Benztropine Mesylate (Cogentin -) 0.5 mg PO HS [facility] Last Admin: 01/27/19 21:41 Dose: 0.5 mg Diltiazem HCl (Cardizem Injection -) 10 mg IVPUSH Q4H PRN PRN Reason: TACHYCARDIA Last Admin: 01/27/19 22:35 Dose: 10 mg Furosemide (Lasix -) 20 mg PO DAILY [facility] Last Admin: 01/28/19 09:42 Dose: 20 mg Insulin Aspart (Novolog Vial Sliding Scale -) 1 vial SQ BIDI [facility]; Protocol Last Admin: 01/28/19 06:09 Dose: 4 units Lisinopril (Prinivil) 2.5 mg PO DAILY [facility] Last Admin: 01/28/19 09:42 Dose: 2.5 mg Metoprolol Tartrate (Lopressor -) 50 mg PO TID [facility] Last Admin: 01/28/19 06:09 Dose: 50 mg Pantoprazole Sodium (Protonix -) 20 mg PO BID [facility] Last Admin: 01/28/19 09:42 Dose: 20 mg Rivaroxaban (Xarelto) 20 mg PO DAILY@1800 [facility] Last Admin: 01/27/19 18:13 Dose: 20 mg - Objective Vital Signs: Vital Signs Temperature 98.1 F 01/28/19 12:00 Pulse Rate 114 H 01/28/19 12:00 Respiratory Rate 18 01/28/19 12:00 Blood Pressure 100/70 01/28/19 12:00 O2 Sat by Pulse Oximetry (%) 99 01/28/19 09:00 Constitutional: Yes: No Distress, Calm Cardiovascular: Yes: Regular Rate and Rhythm, S1, S2 Respiratory: Yes: Regular, CTA Bilaterally Gastrointestinal: Yes: Normal Bowel Sounds, Soft Musculoskeletal: Yes: WNL Extremities: Yes: Other Neurological: Yes: Alert Psychiatric: Yes: Alert, Other Labs: CBC, BMP 01/26/19 09:00 01/26/19 06:00 Assessment/Plan Assessment/Plan Problem List - Problems (1) Afib Code(s): I48.91 - UNSPECIFIED ATRIAL FIBRILLATION Qualifiers: Atrial fibrillation type: chronic Qualified Code(s): I48.2 - Chronic atrial fibrillation (2) Ataxia Code(s): R27.0 - ATAXIA, UNSPECIFIED (3) Diabetes Code(s): E11.9 - TYPE 2 DIABETES MELLITUS WITHOUT COMPLICATIONS (4) HTN (hypertension) Code(s): I10 - ESSENTIAL (PRIMARY) HYPERTENSION (5) Osteomyelitis Code(s): M86.9 - OSTEOMYELITIS, UNSPECIFIED (6) Schizophrenia Code(s): F20.9 - SCHIZOPHRENIA, UNSPECIFIED plan continue current mgmt monitor heart rate physio rest as per the team
[2019-01-28] MEDS: ACETAMINOPHEN 325 MG TABLET (FP) PO PRN (17:25)
[2019-01-28] MEDS: RIVAROXABAN 20 MG TABLET PO SCH (17:25)
--- NOTE | 2019-01-28 19:01 | PN ---
Progress Note, Physician History of Present Illness: stable - Current Medication List Current Medications: Active Medications Acetaminophen (Tylenol -) 650 mg PO Q6H PRN PRN Reason: FEVER Last Admin: 01/28/19 17:25 Dose: 650 mg Aripiprazole (Abilify) 5 mg PO DAILY [facility] Last Admin: 01/28/19 09:42 Dose: 5 mg Benztropine Mesylate (Cogentin -) 0.5 mg PO HS [facility] Last Admin: 01/27/19 21:41 Dose: 0.5 mg Diltiazem HCl (Cardizem Injection -) 10 mg IVPUSH Q4H PRN PRN Reason: TACHYCARDIA Last Admin: 01/27/19 22:35 Dose: 10 mg Furosemide (Lasix -) 20 mg PO DAILY [facility] Last Admin: 01/28/19 09:42 Dose: 20 mg Insulin Aspart (Novolog Vial Sliding Scale -) 1 vial SQ BIDI [facility]; Protocol Last Admin: 01/28/19 17:25 Dose: 4 units Lisinopril (Prinivil) 2.5 mg PO DAILY [facility] Last Admin: 01/28/19 09:42 Dose: 2.5 mg Metoprolol Tartrate (Lopressor -) 50 mg PO TID [facility] Last Admin: 01/28/19 14:12 Dose: 50 mg Pantoprazole Sodium (Protonix -) 20 mg PO BID [facility] Last Admin: 01/28/19 09:42 Dose: 20 mg Rivaroxaban (Xarelto) 20 mg PO DAILY@1800 [facility] Last Admin: 01/28/19 17:25 Dose: 20 mg - Objective Vital Signs: Vital Signs Temperature 100.4 F H 01/28/19 16:00 Pulse Rate 109 H 01/28/19 16:00 Respiratory Rate 24 H 01/28/19 16:00 Blood Pressure 114/78 01/28/19 16:00 O2 Sat by Pulse Oximetry (%) 99 01/28/19 09:00 Constitutional: Yes: No Distress HENT: Yes: Atraumatic Neck: Yes: Supple Cardiovascular: Yes: Regular Rate and Rhythm Respiratory: Yes: CTA Bilaterally Gastrointestinal: Yes: Normal Bowel Sounds Extremities: Yes: WNL Edema: No Peripheral Pulses WNL: Yes Neurological: Yes: Alert Labs: CBC, BMP 01/26/19 09:00 01/26/19 06:00 Problem List - Problems (1) Afib Assessment/Plan: on meds stable Code(s): I48.91 - UNSPECIFIED ATRIAL FIBRILLATION Qualifiers: Atrial fibrillation type: persistent (2) Ataxia Assessment/Plan: possible rehab Code(s): R27.0 - ATAXIA, UNSPECIFIED (3) Diabetes Assessment/Plan: insulin sliding scale and bgms Code(s): E11.9 - TYPE 2 DIABETES MELLITUS WITHOUT COMPLICATIONS (4) HTN (hypertension) Code(s): I10 - ESSENTIAL (PRIMARY) HYPERTENSION Qualifiers: Hypertension type: essential hypertension Qualified Code(s): I10 - Essential (primary) hypertension (5) Osteomyelitis Code(s): M86.9 - OSTEOMYELITIS, UNSPECIFIED (6) Schizophrenia Assessment/Plan: continue home meds Code(s): F20.9 - SCHIZOPHRENIA, UNSPECIFIED (7) Anemia Assessment/Plan: need gi work up need consent marylou on board upper caser note reviewed regarding consent Code(s): D64.9 - ANEMIA, UNSPECIFIED Qualifiers: Anemia type: unspecified type Qualified Code(s): D64.9 - Anemia, unspecified
[2019-01-28] MEDS ORDERED: PT OWN MED DRAWER 7, Y5N ONE ×2 (21:16→21:18)
[2019-01-28] MEDS: BENZTROPINE MESYLATE 0.5 MG TABLET (FP) PO SCH (21:21)
[2019-01-29] MEDS: ACETAMINOPHEN 325 MG TABLET (FP) PO PRN ×2 (00:52→18:43)
[2019-01-29] MEDS: METOPROLOL TARTRATE 50 MG TABLET (FP) PO SCH ×3 (05:50→21:30)
[2019-01-29] MEDS: INSULIN SLIDING SCALE (NOVOLOG) 1 VIAL SQ SCH ×2 (06:06→15:47)
[2019-01-29 06:31] LABS: BASO % 0.2 % (0-2.0); EOS % 0.3 % (0-4.5); HEMATOCRIT 26.7 % (35.4-49); HEMOGLOBIN 8.5 GM/dL (11.7-16.9); LYMPH % 4.2 % (8-40); MCH 22.8 pg (25.7-33.7); MCHC 31.6 g/dl (32.0-35.9); MEAN CELL VOLUME 72.2 fl (80-96); MONO % 8.5 % (3.8-10.2); NEUT % 86.8 % (42.8-82.8); PLATELET COUNT 265 K/MM3 (134-434); RDW 24.4 % (11.9-15.9)
[2019-01-29 07:17] LABS: ALBUMIN 2.1 g/dl (3.4-5.0); BILIRUBIN,TOTAL 1.2 mg/dL (0.2-1); BLOOD UREA NITROGEN 20.6 mg/dL (7-18); CALCIUM 8.5 mg/dL (8.5-10.1); CREATININE 0.6 mg/dL (0.55-1.3); POTASSIUM 3.8 mmol/L (3.5-5.1)
[2019-01-29] MEDS: PANTOPRAZOLE 20 MG TABLET (FP) PO SCH ×2 (09:33→21:32)
[2019-01-29] MEDS: ARIPiprazole 5 MG TABLET (FP) PO SCH (09:33)
[2019-01-29] MEDS: FUROSEMIDE 20 MG TABLET (FP) PO SCH (09:33)
[2019-01-29] MEDS: LISINOPRIL 5 MG TABLET (FP) PO SCH (09:33)
--- NOTE | 2019-01-29 12:43 | PN ---
Progress Note, Physician History of Present Illness: no new issues - Current Medication List Current Medications: Active Medications Acetaminophen (Tylenol -) 650 mg PO Q6H PRN PRN Reason: FEVER Last Admin: 01/29/19 00:52 Dose: 650 mg Aripiprazole (Abilify) 5 mg PO DAILY [facility] Last Admin: 01/29/19 09:33 Dose: 5 mg Benztropine Mesylate (Cogentin -) 0.5 mg PO HS [facility] Last Admin: 01/28/19 21:21 Dose: 0.5 mg Diltiazem HCl (Cardizem Injection -) 10 mg IVPUSH Q4H PRN PRN Reason: TACHYCARDIA Last Admin: 01/27/19 22:35 Dose: 10 mg Furosemide (Lasix -) 20 mg PO DAILY [facility] Last Admin: 01/29/19 09:33 Dose: 20 mg Insulin Aspart (Novolog Vial Sliding Scale -) 1 vial SQ BIDI [facility]; Protocol Last Admin: 01/29/19 06:06 Dose: 2 units Lisinopril (Prinivil) 2.5 mg PO DAILY [facility] Last Admin: 01/29/19 09:33 Dose: 2.5 mg Metoprolol Tartrate (Lopressor -) 50 mg PO TID [facility] Last Admin: 01/29/19 05:50 Dose: 50 mg Pantoprazole Sodium (Protonix -) 20 mg PO BID [facility] Last Admin: 01/29/19 09:33 Dose: 20 mg Rivaroxaban (Xarelto) 20 mg PO DAILY@1800 [facility] Last Admin: 01/28/19 17:25 Dose: 20 mg - Objective Vital Signs: Vital Signs Temperature 98.5 F 01/29/19 08:00 Pulse Rate 99 H 01/29/19 08:00 Respiratory Rate 22 H 01/29/19 09:00 Blood Pressure 94/68 01/29/19 08:00 O2 Sat by Pulse Oximetry (%) 99 01/29/19 09:00 Constitutional: Yes: No Distress, Calm Cardiovascular: Yes: Pulse Irregular, S1, S2 Gastrointestinal: Yes: Normal Bowel Sounds Musculoskeletal: Yes: WNL Extremities: Yes: Other Neurological: Yes: Alert Psychiatric: Yes: Alert, Other Labs: CBC, BMP 01/29/19 05:30 01/29/19 05:35 Assessment/Plan Assessment/Plan Problem List - Problems (1) Afib Code(s): I48.91 - UNSPECIFIED ATRIAL FIBRILLATION Qualifiers: Atrial fibrillation type: chronic Qualified Code(s): I48.2 - Chronic atrial fibrillation (2) Ataxia Code(s): R27.0 - ATAXIA, UNSPECIFIED (3) Diabetes Code(s): E11.9 - TYPE 2 DIABETES MELLITUS WITHOUT COMPLICATIONS (4) HTN (hypertension) Code(s): I10 - ESSENTIAL (PRIMARY) HYPERTENSION (5) Osteomyelitis Code(s): M86.9 - OSTEOMYELITIS, UNSPECIFIED (6) Schizophrenia Code(s): F20.9 - SCHIZOPHRENIA, UNSPECIFIED plan continue current mgmt monitor heart rate physio rest as per the team
--- NOTE | 2019-01-29 15:34 | PN ---
Progress Note (short form) - Note Progress Note: Asked to see patient for continued anemia and tachycardia. Patient without GI output today. No recent melena. No hematemesis/emesis. Noted to be anemic and underwent transfusion of 1 unit of PRBC's since hospitalized, evening of 01/17/19. 01/18 hemoglobin noted to be 9.0 g/dl. Has had hemoglobin measures as high as 10.4 g/dl (on 01/26), but retest today came back 8.5 g/dl. Tachycardia persistent and stable a function of atrial fibrillation. BP stable. Abd soft, ND/NT. Very much doubt clinically important upper GI bleed at this time. Etiology of low MCV anemia remains uncertain. GI team to consider upper endoscopy/colonoscopy with patient and primary team.
[2019-01-29] MEDS: RIVAROXABAN 20 MG TABLET PO SCH (17:03)
--- NOTE | 2019-01-29 17:13 | PN ---
Progress Note, Physician History of Present Illness: Rapid afib 120's, asymptomatic and denies chest pain, dyspnea, palpitations. Patient lacks mental capacity to consent for endoscopy. - Current Medication List Current Medications: Active Medications Acetaminophen (Tylenol -) 650 mg PO Q6H PRN PRN Reason: FEVER Last Admin: 01/29/19 00:52 Dose: 650 mg Aripiprazole (Abilify) 5 mg PO DAILY [facility] Last Admin: 01/29/19 09:33 Dose: 5 mg Benztropine Mesylate (Cogentin -) 0.5 mg PO HS [facility] Last Admin: 01/28/19 21:21 Dose: 0.5 mg Diltiazem HCl (Cardizem Injection -) 10 mg IVPUSH Q4H PRN PRN Reason: TACHYCARDIA Last Admin: 01/27/19 22:35 Dose: 10 mg Furosemide (Lasix -) 20 mg PO DAILY [facility] Last Admin: 01/29/19 09:33 Dose: 20 mg Insulin Aspart (Novolog Vial Sliding Scale -) 1 vial SQ BIDI [facility]; Protocol Last Admin: 01/29/19 15:47 Dose: 4 units Lisinopril (Prinivil) 2.5 mg PO DAILY [facility] Last Admin: 01/29/19 09:33 Dose: 2.5 mg Metoprolol Tartrate (Lopressor -) 50 mg PO TID [facility] Last Admin: 01/29/19 13:14 Dose: 50 mg Pantoprazole Sodium (Protonix -) 20 mg PO BID [facility] Last Admin: 01/29/19 09:33 Dose: 20 mg Rivaroxaban (Xarelto) 20 mg PO DAILY@1800 [facility] Last Admin: 01/29/19 17:03 Dose: 20 mg - Objective Vital Signs: Vital Signs Temperature 98.0 F 01/29/19 16:00 Pulse Rate 122 H 01/29/19 16:00 Respiratory Rate 22 H 01/29/19 16:00 Blood Pressure 105/69 01/29/19 16:00 O2 Sat by Pulse Oximetry (%) 99 01/29/19 09:00 Constitutional: Yes: No Distress, Calm, Thin Neck: Yes: Supple Cardiovascular: Yes: Tachycardia, Pulse Irregular Respiratory: Yes: Regular, Diminished Gastrointestinal: Yes: Normal Bowel Sounds, Soft Edema: No Labs: CBC, BMP 01/29/19 05:30 01/29/19 05:35 - ....Imaging EKG: Report Reviewed (Tele: Rapid afib 120s) Problem List - Problems (1) Demand ischemia Code(s): I24.8 - OTHER FORMS OF ACUTE ISCHEMIC HEART DISEASE (2) Anemia Code(s): D64.9 - ANEMIA, UNSPECIFIED Qualifiers: Anemia type: unspecified type Qualified Code(s): D64.9 - Anemia, unspecified (3) Diastolic dysfunction Code(s): I51.89 - OTHER ILL-DEFINED HEART DISEASES (4) Afib Code(s): I48.91 - UNSPECIFIED ATRIAL FIBRILLATION Qualifiers: Atrial fibrillation type: persistent (5) HTN (hypertension) Code(s): I10 - ESSENTIAL (PRIMARY) HYPERTENSION Qualifiers: Hypertension type: essential hypertension Qualified Code(s): I10 - Essential (primary) hypertension (6) Schizophrenia Code(s): F20.9 - SCHIZOPHRENIA, UNSPECIFIED Assessment/Plan 01/22/2019 Echo: Normal and RV size and fxn LVEF 53%, mild TR RVSP 34 mmHg, tr- mild MR, normal biatrial sizes 1. Persistent AF, [id number] score of 5 on DOAC 2. CAD with demand ischemia 3. Diastolic dysfunction with clinical class 0 NYHA classification heart failure 4. DM 5. HTN 6. Hypercholesterolemia 7. History of schizophrenia 8. History of osteomyelitis 9. History of CVA 10. Anemia post transfusion PLAN: 1. Increase Lopressor 50 mg QID and IV Cardizem as needed for rate-control and Prinivil 2.5 qd as hemodynamics tolerate. 2. Continue Xarelto 20 mg QD with GI protection close monitoring of hemoglobin. If endoscopy is to be pursued, hold Xarelto for 2 days prior to procedure and resume once post-procedure 3. Continue diuretic therapy (PO Lasix) with close monitoring of renal function and electrolytes 4. GI team to consider upper endoscopy/colonoscopy with patient and primary team.
--- NOTE | 2019-01-29 18:35 | PN ---
Progress Note, Physician - Current Medication List Current Medications: Active Medications Acetaminophen (Tylenol -) 650 mg PO Q6H PRN PRN Reason: FEVER Last Admin: 01/29/19 00:52 Dose: 650 mg Aripiprazole (Abilify) 5 mg PO DAILY [facility] Last Admin: 01/29/19 09:33 Dose: 5 mg Benztropine Mesylate (Cogentin -) 0.5 mg PO HS [facility] Last Admin: 01/28/19 21:21 Dose: 0.5 mg Diltiazem HCl (Cardizem Injection -) 10 mg IVPUSH Q4H PRN PRN Reason: TACHYCARDIA Last Admin: 01/27/19 22:35 Dose: 10 mg Furosemide (Lasix -) 20 mg PO DAILY [facility] Last Admin: 01/29/19 09:33 Dose: 20 mg Insulin Aspart (Novolog Vial Sliding Scale -) 1 vial SQ BIDI [facility]; Protocol Last Admin: 01/29/19 15:47 Dose: 4 units Lisinopril (Prinivil) 2.5 mg PO DAILY [facility] Last Admin: 01/29/19 09:33 Dose: 2.5 mg Metoprolol Tartrate (Lopressor -) 50 mg PO TID [facility] Last Admin: 01/29/19 13:14 Dose: 50 mg Pantoprazole Sodium (Protonix -) 20 mg PO BID [facility] Last Admin: 01/29/19 09:33 Dose: 20 mg Rivaroxaban (Xarelto) 20 mg PO DAILY@1800 [facility] Last Admin: 01/29/19 17:03 Dose: 20 mg - Objective Vital Signs: Vital Signs Temperature 98.0 F 01/29/19 18:12 Pulse Rate 128 H 01/29/19 18:12 Respiratory Rate 20 01/29/19 18:12 Blood Pressure 97/67 01/29/19 18:12 O2 Sat by Pulse Oximetry (%) 99 01/29/19 09:00 Constitutional: Yes: No Distress HENT: Yes: Atraumatic Neck: Yes: Supple Cardiovascular: Yes: Regular Rate and Rhythm Respiratory: Yes: CTA Bilaterally Gastrointestinal: Yes: Normal Bowel Sounds Extremities: Yes: WNL Edema: No Neurological: Yes: Alert, Oriented Labs: CBC, BMP 01/29/19 05:30 01/29/19 05:35 Problem List - Problems (1) Afib Assessment/Plan: on meds stable Code(s): I48.91 - UNSPECIFIED ATRIAL FIBRILLATION Qualifiers: Atrial fibrillation type: persistent (2) Ataxia Assessment/Plan: possible rehab Code(s): R27.0 - ATAXIA, UNSPECIFIED (3) Diabetes Assessment/Plan: insulin sliding scale and bgms Code(s): E11.9 - TYPE 2 DIABETES MELLITUS WITHOUT COMPLICATIONS (4) HTN (hypertension) Code(s): I10 - ESSENTIAL (PRIMARY) HYPERTENSION Qualifiers: Hypertension type: essential hypertension Qualified Code(s): I10 - Essential (primary) hypertension (5) Osteomyelitis Code(s): M86.9 - OSTEOMYELITIS, UNSPECIFIED (6) Schizophrenia Assessment/Plan: continue home meds Code(s): F20.9 - SCHIZOPHRENIA, UNSPECIFIED (7) Anemia Assessment/Plan: need gi work up Code(s): D64.9 - ANEMIA, UNSPECIFIED Qualifiers: Anemia type: unspecified type Qualified Code(s): D64.9 - Anemia, unspecified
[2019-01-29] MEDS: BENZTROPINE MESYLATE 0.5 MG TABLET (FP) PO SCH (21:29)
[2019-01-30 07:12] LABS: BASO % 0.1 % (0-2.0); EOS % 0.3 % (0-4.5); HEMATOCRIT 26.2 % (35.4-49); HEMOGLOBIN 8.6 GM/dL (11.7-16.9); LYMPH % 6.9 % (8-40); MCH 23.1 pg (25.7-33.7); MCHC 32.8 g/dl (32.0-35.9); MEAN CELL VOLUME 70.4 fl (80-96); MEAN PLT VOLUME 8.7 fl (7.5-11.1); MONO % 8.9 % (3.8-10.2); NEUT % 83.8 % (42.8-82.8); PLATELET COUNT 274 K/MM3 (134-434); RBC 3.72 M/mm3 (4.00-5.60); RDW 24.4 % (11.9-15.9); WHITE BLOOD COUNT 10.5 K/mm3 (4.0-10.0)
[2019-01-30] MEDS: INSULIN SLIDING SCALE (NOVOLOG) 1 VIAL SQ SCH ×2 (08:31→17:44)
--- NOTE | 2019-01-30 08:58 | PN ---
Progress Note, Physician History of Present Illness: Rapid afib 120's-140's despite Lopressor uptitration, asymptomatic and denies chest pain, dyspnea, palpitations. Febrile overnight. Patient lacks mental capacity to consent for endoscopy. - Current Medication List Current Medications: Active Medications Acetaminophen (Tylenol -) 650 mg PO Q6H PRN PRN Reason: FEVER Last Admin: 01/29/19 18:43 Dose: 650 mg Aripiprazole (Abilify) [address] [facility] Last Admin: 01/29/19 09:33 Dose: 5 mg Benztropine Mesylate (Cogentin -) 0.[address] [facility] Last Admin: 01/29/19 21:29 Dose: 0.5 mg Diltiazem HCl (Cardizem Injection -) 10 mg IVPUSH Q4H PRN PRN Reason: TACHYCARDIA Last Admin: 01/27/19 22:35 Dose: 10 mg Furosemide (Lasix -) [address] [facility] Last Admin: 01/29/19 09:33 Dose: 20 mg Insulin Aspart (Novolog Vial Sliding Scale -) [address] [facility]; Protocol Last Admin: 01/30/19 08:31 Dose: 2 units Lisinopril (Prinivil) 2.[address] [facility] Last Admin: 01/29/19 09:33 Dose: 2.5 mg Metoprolol Tartrate (Lopressor -) [address] [facility] Last Admin: 01/29/19 21:30 Dose: 50 mg Pantoprazole Sodium (Protonix -) [address] [facility] Last Admin: 01/29/19 21:32 Dose: 20 mg Rivaroxaban (Xarelto) 20 mg PO DAILY@1800 [facility] Last Admin: 01/29/19 17:03 Dose: 20 mg - Objective Vital Signs: Vital Signs Temperature 99.0 F 01/30/19 06:00 Pulse Rate 122 H 01/30/19 06:00 Respiratory Rate 19 01/30/19 06:00 Blood Pressure 99/66 01/30/19 06:00 O2 Sat by Pulse Oximetry (%) 99 01/29/19 21:00 Constitutional: Yes: No Distress, Calm Neck: Yes: Supple Cardiovascular: Yes: Tachycardia, Pulse Irregular Respiratory: Yes: Regular, Diminished Gastrointestinal: Yes: Normal Bowel Sounds, Soft Edema: No Labs: CBC, BMP 01/30/19 05:40 01/29/19 05:35 - ....Imaging EKG: Report Reviewed (Tele: Rapid afib) Problem List - Problems (1) Demand ischemia Code(s): I24.8 - OTHER FORMS OF ACUTE ISCHEMIC HEART DISEASE (2) Anemia Code(s): D64.9 - ANEMIA, UNSPECIFIED Qualifiers: Anemia type: unspecified type Qualified Code(s): D64.9 - Anemia, unspecified (3) Diastolic dysfunction Code(s): I51.89 - OTHER ILL-DEFINED HEART DISEASES (4) Afib Code(s): I48.91 - UNSPECIFIED ATRIAL FIBRILLATION Qualifiers: Atrial fibrillation type: persistent (5) HTN (hypertension) Code(s): I10 - ESSENTIAL (PRIMARY) HYPERTENSION Qualifiers: Hypertension type: essential hypertension Qualified Code(s): I10 - Essential (primary) hypertension (6) Schizophrenia Code(s): F20.9 - SCHIZOPHRENIA, UNSPECIFIED Assessment/Plan 01/22/2019 Echo: Normal and RV size and fxn LVEF 53%, mild TR RVSP 34 mmHg, tr- mild MR, normal biatrial sizes 1. Persistent AF with RVR, [id number] score of 5 on DOAC 2. CAD with demand ischemia 3. Diastolic dysfunction with clinical class 0 NYHA classification heart failure 4. DM 5. HTN 6. Hypercholesterolemia 7. History of schizophrenia 8. History of osteomyelitis 9. History of CVA 10. Anemia post transfusion PLAN: 1. Continue Lopressor 50 mg QID, add Cardizem 30 QID and IV Cardizem as needed for rate-control and Prinivil 2.5 qd as hemodynamics tolerate. 2. Continue Xarelto 20 mg QD with GI protection close monitoring of hemoglobin. If endoscopy is to be pursued, hold Xarelto for 2 days prior to procedure and resume once post-procedure 3. Continue diuretic therapy (PO Lasix) with close monitoring of renal function and electrolytes 4. GI team to consider upper endoscopy/colonoscopy with patient and primary team.
[2019-01-30] MEDS: PANTOPRAZOLE 20 MG TABLET (FP) PO SCH ×2 (09:18→22:05)
[2019-01-30] MEDS: ARIPiprazole 5 MG TABLET (FP) PO SCH (09:18)
[2019-01-30] MEDS: LISINOPRIL 5 MG TABLET (FP) PO SCH (09:18)
[2019-01-30] MEDS: FUROSEMIDE 20 MG TABLET (FP) PO SCH (09:18)
[2019-01-30] MEDS: METOPROLOL TARTRATE 50 MG TABLET (FP) PO SCH ×4 (09:19→22:05)
--- NOTE | 2019-01-30 11:52 | PN ---
Progress Note, Physician History of Present Illness: stable patient spiked fever overnight - Current Medication List Current Medications: Active Medications Acetaminophen (Tylenol -) 650 mg PO Q6H PRN PRN Reason: FEVER Last Admin: 01/29/19 18:43 Dose: 650 mg Aripiprazole (Abilify) 5 mg PO DAILY [facility] Last Admin: 01/30/19 09:18 Dose: 5 mg Benztropine Mesylate (Cogentin -) 0.5 mg PO HS [facility] Last Admin: 01/29/19 21:29 Dose: 0.5 mg Diltiazem HCl (Cardizem Injection -) 10 mg IVPUSH Q4H PRN PRN Reason: TACHYCARDIA Last Admin: 01/27/19 22:35 Dose: 10 mg Furosemide (Lasix -) 20 mg PO DAILY [facility] Last Admin: 01/30/19 09:18 Dose: 20 mg Insulin Aspart (Novolog Vial Sliding Scale -) 1 vial SQ BIDI [facility]; Protocol Last Admin: 01/30/19 08:31 Dose: 2 units Lisinopril (Prinivil) 2.5 mg PO DAILY [facility] Last Admin: 01/30/19 09:18 Dose: 2.5 mg Metoprolol Tartrate (Lopressor -) 50 mg PO QID [facility] Last Admin: 01/30/19 09:19 Dose: 50 mg Pantoprazole Sodium (Protonix -) 20 mg PO BID [facility] Last Admin: 01/30/19 09:18 Dose: 20 mg Rivaroxaban (Xarelto) 20 mg PO DAILY@1800 [facility] Last Admin: 01/29/19 17:03 Dose: 20 mg - Objective Vital Signs: Vital Signs Temperature 99.0 F 01/30/19 06:00 Pulse Rate 124 H 01/30/19 09:00 Respiratory Rate 18 01/30/19 09:00 Blood Pressure 107/72 01/30/19 09:00 O2 Sat by Pulse Oximetry (%) 99 01/30/19 09:00 Constitutional: Yes: Calm, Mild Distress Cardiovascular: Yes: Pulse Irregular Respiratory: Yes: Regular, CTA Bilaterally Gastrointestinal: Yes: Normal Bowel Sounds, Soft Musculoskeletal: Yes: WNL Extremities: Yes: Other Neurological: Yes: Alert, Other Psychiatric: Yes: Other Labs: CBC, BMP 01/30/19 05:40 01/29/19 05:35 Assessment/Plan Assessment/Plan Problem List - Problems (1) Afib Code(s): I48.91 - UNSPECIFIED ATRIAL FIBRILLATION Qualifiers: Atrial fibrillation type: chronic Qualified Code(s): I48.2 - Chronic atrial fibrillation (2) Ataxia Code(s): R27.0 - ATAXIA, UNSPECIFIED (3) Diabetes Code(s): E11.9 - TYPE 2 DIABETES MELLITUS WITHOUT COMPLICATIONS (4) HTN (hypertension) Code(s): I10 - ESSENTIAL (PRIMARY) HYPERTENSION (5) Osteomyelitis Code(s): M86.9 - OSTEOMYELITIS, UNSPECIFIED (6) Schizophrenia Code(s): F20.9 - SCHIZOPHRENIA, UNSPECIFIED plan continue current mgmt monitor heart rate rest as per the team await for endoscopy
[2019-01-30 12:50] LABS: ANISOCYTOSIS 1+
[2019-01-30 12:51] LABS: OVALOCYTE 1+
[2019-01-30] MEDS: dilTIAZem HCL 30 MG TABLET (FP) PO SCH ×2 (14:42→17:42)
--- NOTE | 2019-01-30 16:13 | PN.GI ---
GI Progress Note Subjective: coverage for Dr Lemus no active bleeding, melena - Objective Vital Signs: Vital Signs Temperature 99 F 01/30/19 14:00 Pulse Rate 113 H 01/30/19 14:00 Respiratory Rate 18 01/30/19 14:00 Blood Pressure 98/77 01/30/19 14:00 O2 Sat by Pulse Oximetry (%) 99 01/30/19 09:00 Constitutional: Well Nourished Eyes: Yes: Conjunctiva Clear HENT: Yes: Normocephalic Neck: Yes: Trachea Midline Cardiovascular: Yes: Regular Rate and Rhythm Respiratory: Yes: CTA Bilaterally ...Palpate: Yes: Soft. No: Firm/Rigid, Guarding, Hepatomegaly, Mass, Pulsatile Mass, Splenomegaly, Tenderness, Tenderness, Epigastium Labs: CBC, BMP 01/30/19 05:40 01/29/19 05:35 Problem List - Problems (1) Anemia Assessment/Plan: still with rapid AFIB, will need consent for EGD and colonoscopy R> will schedule medically cleared, will need assistance in obtaining consents for gi work up Code(s): D64.9 - ANEMIA, UNSPECIFIED Qualifiers: Anemia type: unspecified type Qualified Code(s): D64.9 - Anemia, unspecified
--- NOTE | 2019-01-30 16:58 | PN ---
Progress Note, Physician - Current Medication List Current Medications: Active Medications Acetaminophen (Tylenol -) 650 mg PO Q6H PRN PRN Reason: FEVER Last Admin: 01/29/19 18:43 Dose: 650 mg Aripiprazole (Abilify) 5 mg PO DAILY [facility] Last Admin: 01/30/19 09:18 Dose: 5 mg Benztropine Mesylate (Cogentin -) 0.5 mg PO HS [facility] Last Admin: 01/29/19 21:29 Dose: 0.5 mg Diltiazem HCl (Cardizem Injection -) 10 mg IVPUSH Q4H PRN PRN Reason: TACHYCARDIA Last Admin: 01/27/19 22:35 Dose: 10 mg Diltiazem HCl (Cardizem -) 30 mg PO Q6HPO [facility] Last Admin: 01/30/19 14:42 Dose: 30 mg Furosemide (Lasix -) 20 mg PO DAILY [facility] Last Admin: 01/30/19 09:18 Dose: 20 mg Insulin Aspart (Novolog Vial Sliding Scale -) 1 vial SQ BIDI [facility]; Protocol Last Admin: 01/30/19 08:31 Dose: 2 units Lisinopril (Prinivil) 2.5 mg PO DAILY [facility] Last Admin: 01/30/19 09:18 Dose: 2.5 mg Metoprolol Tartrate (Lopressor -) 50 mg PO QID [facility] Last Admin: 01/30/19 14:42 Dose: 50 mg Pantoprazole Sodium (Protonix -) 20 mg PO BID [facility] Last Admin: 01/30/19 09:18 Dose: 20 mg Rivaroxaban (Xarelto) 20 mg PO DAILY@1800 [facility] Last Admin: 01/29/19 17:03 Dose: 20 mg - Objective Vital Signs: Vital Signs Temperature 99 F 01/30/19 14:00 Pulse Rate 113 H 01/30/19 14:00 Respiratory Rate 18 01/30/19 14:00 Blood Pressure 98/77 01/30/19 14:00 O2 Sat by Pulse Oximetry (%) 99 01/30/19 09:00 Constitutional: Yes: No Distress HENT: Yes: Atraumatic Neck: Yes: Supple Cardiovascular: Yes: Regular Rate and Rhythm Respiratory: Yes: CTA Bilaterally Gastrointestinal: Yes: Normal Bowel Sounds Extremities: Yes: WNL Edema: No Neurological: Yes: Alert, Oriented Labs: CBC, BMP 01/30/19 05:40 01/29/19 05:35 Problem List - Problems (1) Afib Assessment/Plan: on meds stable Code(s): I48.91 - UNSPECIFIED ATRIAL FIBRILLATION Qualifiers: Atrial fibrillation type: persistent (2) Ataxia Assessment/Plan: possible rehab Code(s): R27.0 - ATAXIA, UNSPECIFIED (3) Diabetes Assessment/Plan: insulin sliding scale and bgms Code(s): E11.9 - TYPE 2 DIABETES MELLITUS WITHOUT COMPLICATIONS (4) HTN (hypertension) Code(s): I10 - ESSENTIAL (PRIMARY) HYPERTENSION Qualifiers: Hypertension type: essential hypertension Qualified Code(s): I10 - Essential (primary) hypertension (5) Osteomyelitis Code(s): M86.9 - OSTEOMYELITIS, UNSPECIFIED (6) Schizophrenia Assessment/Plan: continue home meds Code(s): F20.9 - SCHIZOPHRENIA, UNSPECIFIED (7) Anemia Assessment/Plan: need gi work up h/h dropped fu cbc Code(s): D64.9 - ANEMIA, UNSPECIFIED Qualifiers: Anemia type: unspecified type Qualified Code(s): D64.9 - Anemia, unspecified
[2019-01-30] MEDS: RIVAROXABAN 20 MG TABLET PO SCH (17:42)
[2019-01-30] MEDS: ACETAMINOPHEN 325 MG TABLET (FP) PO PRN (17:42)
[2019-01-30] MEDS: BENZTROPINE MESYLATE 0.5 MG TABLET (FP) PO SCH (22:05)
[2019-01-31] MEDS: dilTIAZem HCL 30 MG TABLET (FP) PO SCH ×4 (00:21→17:38)
[2019-01-31] MEDS: INSULIN SLIDING SCALE (NOVOLOG) 1 VIAL SQ SCH ×2 (06:39→17:30)
[2019-01-31] MEDS: ACETAMINOPHEN 325 MG TABLET (FP) PO PRN ×2 (09:41→15:20)
[2019-01-31] MEDS: ARIPiprazole 5 MG TABLET (FP) PO SCH (09:43)
[2019-01-31] MEDS: LISINOPRIL 5 MG TABLET (FP) PO SCH (09:43)
[2019-01-31] MEDS: FUROSEMIDE 20 MG TABLET (FP) PO SCH (09:43)
[2019-01-31] MEDS: PANTOPRAZOLE 20 MG TABLET (FP) PO SCH ×2 (09:43→21:51)
[2019-01-31] MEDS: METOPROLOL TARTRATE 50 MG TABLET (FP) PO SCH ×4 (10:08→21:51)
--- NOTE | 2019-01-31 11:20 | PN ---
Progress Note, Physician History of Present Illness: Afib with improved rate-control, asymptomatic and denies chest pain, dyspnea, palpitations. Low grade fevers overnight. Patient lacks mental capacity to consent for endoscopy. - Current Medication List Current Medications: Active Medications Acetaminophen (Tylenol -) 650 mg PO Q6H PRN PRN Reason: FEVER Last Admin: 01/31/19 09:41 Dose: 650 mg Aripiprazole (Abilify) 5 mg PO DAILY [facility] Last Admin: 01/31/19 09:43 Dose: 5 mg Benztropine Mesylate (Cogentin -) 0.5 mg PO HS [facility] Last Admin: 01/30/19 22:05 Dose: 0.5 mg Diltiazem HCl (Cardizem Injection -) 10 mg IVPUSH Q4H PRN PRN Reason: TACHYCARDIA Last Admin: 01/27/19 22:35 Dose: 10 mg Diltiazem HCl (Cardizem -) 30 mg PO Q6HPO [facility] Last Admin: 01/31/19 06:35 Dose: 30 mg Furosemide (Lasix -) 20 mg PO DAILY [facility] Last Admin: 01/31/19 09:43 Dose: 20 mg Insulin Aspart (Novolog Vial Sliding Scale -) 1 vial SQ BIDI [facility]; Protocol Last Admin: 01/31/19 06:39 Dose: 4 units Lisinopril (Prinivil) 2.5 mg PO DAILY [facility] Last Admin: 01/31/19 09:43 Dose: 2.5 mg Metoprolol Tartrate (Lopressor -) 50 mg PO QID [facility] Last Admin: 01/31/19 10:08 Dose: 50 mg Pantoprazole Sodium (Protonix -) 20 mg PO BID [facility] Last Admin: 01/31/19 09:43 Dose: 20 mg Rivaroxaban (Xarelto) 20 mg PO DAILY@1800 [facility] Last Admin: 01/30/19 17:42 Dose: 20 mg - Objective Vital Signs: Vital Signs Temperature 98.3 F 01/31/19 04:00 Pulse Rate 96 H 01/31/19 08:00 Respiratory Rate 20 01/31/19 08:00 Blood Pressure 94/69 01/31/19 08:00 O2 Sat by Pulse Oximetry (%) 99 01/31/19 09:00 Constitutional: Yes: No Distress, Calm Neck: Yes: Supple Cardiovascular: Yes: Pulse Irregular Respiratory: Yes: Regular, CTA Bilaterally Gastrointestinal: Yes: Normal Bowel Sounds, Soft Edema: No Labs: CBC, BMP 01/30/19 05:40 01/29/19 05:35 - ....Imaging EKG: Report Reviewed (Tele: Rate-controlled afib) Problem List - Problems (1) Demand ischemia Code(s): I24.8 - OTHER FORMS OF ACUTE ISCHEMIC HEART DISEASE (2) Anemia Code(s): D64.9 - ANEMIA, UNSPECIFIED Qualifiers: Anemia type: unspecified type Qualified Code(s): D64.9 - Anemia, unspecified (3) Diastolic dysfunction Code(s): I51.89 - OTHER ILL-DEFINED HEART DISEASES (4) Afib Code(s): I48.91 - UNSPECIFIED ATRIAL FIBRILLATION Qualifiers: Atrial fibrillation type: persistent (5) HTN (hypertension) Code(s): I10 - ESSENTIAL (PRIMARY) HYPERTENSION Qualifiers: Hypertension type: essential hypertension Qualified Code(s): I10 - Essential (primary) hypertension (6) Schizophrenia Code(s): F20.9 - SCHIZOPHRENIA, UNSPECIFIED Assessment/Plan 01/22/2019 Echo: Normal and RV size and fxn LVEF 53%, mild TR RVSP 34 mmHg, tr- mild MR, normal biatrial sizes 1. Persistent AF with improved rate-control, [id number] score of 5 on DOAC 2. CAD with demand ischemia 3. Diastolic dysfunction with clinical class 0 NYHA classification heart failure 4. DM 5. HTN 6. Hypercholesterolemia 7. History of schizophrenia 8. History of osteomyelitis 9. History of CVA 10. Anemia post transfusion PLAN: 1. Continue Lopressor 50 mg QID and Cardizem 30 QID and IV Cardizem as needed for rate-control and Prinivil 2.5 qd as hemodynamics tolerate. 2. Continue Xarelto 20 mg QD with GI protection close monitoring of hemoglobin. If endoscopy is to be pursued, hold Xarelto for 2 days prior to procedure and resume once post-procedure 3. Continue diuretic therapy (PO Lasix) with close monitoring of renal function and electrolytes 4. GI team to consider upper endoscopy/colonoscopy with patient and primary team.
--- NOTE | 2019-01-31 12:12 | PN ---
Progress Note, Physician History of Present Illness: intermittent spikes of low grade fever otherwise comfortable - Current Medication List Current Medications: Active Medications Acetaminophen (Tylenol -) 650 mg PO Q6H PRN PRN Reason: FEVER Last Admin: 01/31/19 09:41 Dose: 650 mg Aripiprazole (Abilify) 5 mg PO DAILY [facility] Last Admin: 01/31/19 09:43 Dose: 5 mg Benztropine Mesylate (Cogentin -) 0.5 mg PO HS [facility] Last Admin: 01/30/19 22:05 Dose: 0.5 mg Diltiazem HCl (Cardizem Injection -) 10 mg IVPUSH Q4H PRN PRN Reason: TACHYCARDIA Last Admin: 01/27/19 22:35 Dose: 10 mg Diltiazem HCl (Cardizem -) 30 mg PO Q6HPO [facility] Last Admin: 01/31/19 11:51 Dose: 30 mg Furosemide (Lasix -) 20 mg PO DAILY [facility] Last Admin: 01/31/19 09:43 Dose: 20 mg Insulin Aspart (Novolog Vial Sliding Scale -) 1 vial SQ BIDI [facility]; Protocol Last Admin: 01/31/19 06:39 Dose: 4 units Lisinopril (Prinivil) 2.5 mg PO DAILY [facility] Last Admin: 01/31/19 09:43 Dose: 2.5 mg Metoprolol Tartrate (Lopressor -) 50 mg PO QID [facility] Last Admin: 01/31/19 10:08 Dose: 50 mg Pantoprazole Sodium (Protonix -) 20 mg PO BID [facility] Last Admin: 01/31/19 09:43 Dose: 20 mg Rivaroxaban (Xarelto) 20 mg PO DAILY@1800 [facility] Last Admin: 01/30/19 17:42 Dose: 20 mg - Objective Vital Signs: Vital Signs Temperature 98.3 F 01/31/19 04:00 Pulse Rate 96 H 01/31/19 08:00 Respiratory Rate 20 01/31/19 08:00 Blood Pressure 94/69 01/31/19 08:00 O2 Sat by Pulse Oximetry (%) 99 01/31/19 09:00 Constitutional: Yes: No Distress, Calm Cardiovascular: Yes: S1, S2 Gastrointestinal: Yes: Normal Bowel Sounds, Soft Musculoskeletal: Yes: WNL Extremities: Yes: WNL Neurological: Yes: Alert, Other Psychiatric: Yes: Other Labs: CBC, BMP 01/30/19 05:40 01/29/19 05:35 Assessment/Plan Problem List - Problems (1) Afib Code(s): I48.91 - UNSPECIFIED ATRIAL FIBRILLATION Qualifiers: Atrial fibrillation type: chronic Qualified Code(s): I48.2 - Chronic atrial fibrillation (2) Ataxia Code(s): R27.0 - ATAXIA, UNSPECIFIED (3) Diabetes Code(s): E11.9 - TYPE 2 DIABETES MELLITUS WITHOUT COMPLICATIONS (4) HTN (hypertension) Code(s): I10 - ESSENTIAL (PRIMARY) HYPERTENSION (5) Osteomyelitis Code(s): M86.9 - OSTEOMYELITIS, UNSPECIFIED (6) Schizophrenia Code(s): F20.9 - SCHIZOPHRENIA, UNSPECIFIED plan continue current mgmt monitor fevers rest as per the team low spikes
[2019-01-31] MEDS: RIVAROXABAN 20 MG TABLET PO SCH (17:44)
--- NOTE | 2019-01-31 17:52 | PN ---
Progress Note, Physician - Current Medication List Current Medications: Active Medications Acetaminophen (Tylenol -) 650 mg PO Q6H PRN PRN Reason: FEVER Last Admin: 01/31/19 15:20 Dose: 650 mg Aripiprazole (Abilify) 5 mg PO DAILY [facility] Last Admin: 01/31/19 09:43 Dose: 5 mg Benztropine Mesylate (Cogentin -) 0.5 mg PO HS [facility] Last Admin: 01/30/19 22:05 Dose: 0.5 mg Diltiazem HCl (Cardizem Injection -) 10 mg IVPUSH Q4H PRN PRN Reason: TACHYCARDIA Last Admin: 01/27/19 22:35 Dose: 10 mg Diltiazem HCl (Cardizem -) 30 mg PO Q6HPO [facility] Last Admin: 01/31/19 17:38 Dose: 30 mg Furosemide (Lasix -) 20 mg PO DAILY [facility] Last Admin: 01/31/19 09:43 Dose: 20 mg Insulin Aspart (Novolog Vial Sliding Scale -) 1 vial SQ BIDI [facility]; Protocol Last Admin: 01/31/19 17:30 Dose: 2 units Lisinopril (Prinivil) 2.5 mg PO DAILY [facility] Last Admin: 01/31/19 09:43 Dose: 2.5 mg Metoprolol Tartrate (Lopressor -) 50 mg PO QID [facility] Last Admin: 01/31/19 17:44 Dose: 50 mg Pantoprazole Sodium (Protonix -) 20 mg PO BID [facility] Last Admin: 01/31/19 09:43 Dose: 20 mg Rivaroxaban (Xarelto) 20 mg PO DAILY@1800 [facility] Last Admin: 01/31/19 17:44 Dose: 20 mg - Objective Vital Signs: Vital Signs Temperature 99.4 F 01/31/19 17:00 Pulse Rate 96 H 01/31/19 17:00 Respiratory Rate 15 01/31/19 17:00 Blood Pressure 104/71 01/31/19 17:00 O2 Sat by Pulse Oximetry (%) 99 01/31/19 09:00 Constitutional: Yes: No Distress HENT: Yes: Atraumatic Neck: Yes: Supple Cardiovascular: Yes: Regular Rate and Rhythm Respiratory: Yes: CTA Bilaterally Gastrointestinal: Yes: Normal Bowel Sounds Extremities: Yes: Other ( r knee swollen mild) Edema: No Peripheral Pulses WNL: Yes Neurological: Yes: Alert Labs: CBC, BMP 01/30/19 05:40 01/29/19 05:35 Problem List - Problems (1) Afib Assessment/Plan: meds getting adjusted stable Code(s): I48.91 - UNSPECIFIED ATRIAL FIBRILLATION Qualifiers: Atrial fibrillation type: persistent (2) Ataxia Assessment/Plan: possible rehab Code(s): R27.0 - ATAXIA, UNSPECIFIED (3) Diabetes Assessment/Plan: insulin sliding scale and bgms Code(s): E11.9 - TYPE 2 DIABETES MELLITUS WITHOUT COMPLICATIONS (4) HTN (hypertension) Code(s): I10 - ESSENTIAL (PRIMARY) HYPERTENSION Qualifiers: Hypertension type: essential hypertension Qualified Code(s): I10 - Essential (primary) hypertension (5) Osteomyelitis Code(s): M86.9 - OSTEOMYELITIS, UNSPECIFIED (6) Schizophrenia Assessment/Plan: continue home meds Code(s): F20.9 - SCHIZOPHRENIA, UNSPECIFIED (7) Anemia Assessment/Plan: need gi work up h/h dropped fu cbc Code(s): D64.9 - ANEMIA, UNSPECIFIED Qualifiers: Anemia type: unspecified type Qualified Code(s): D64.9 - Anemia, unspecified
[2019-01-31 20:16] LABS: BASO % 0.2 % (0-2.0); EOS % 0.8 % (0-4.5); HEMATOCRIT 26.2 % (35.4-49); HEMOGLOBIN 8.3 GM/dL (11.7-16.9); MCH 22.7 pg (25.7-33.7); MCHC 31.8 g/dl (32.0-35.9); MEAN CELL VOLUME 71.3 fl (80-96); MEAN PLT VOLUME 7.9 fl (7.5-11.1); MONO % 8.8 % (3.8-10.2); NEUT % 84.2 % (42.8-82.8); PLATELET COUNT 268 K/MM3 (134-434); RBC 3.68 M/mm3 (4.00-5.60); RDW 23.6 % (11.9-15.9); WHITE BLOOD COUNT 9.4 K/mm3 (4.0-10.0)
[2019-01-31] MEDS: BENZTROPINE MESYLATE 0.5 MG TABLET (FP) PO SCH (21:52)
[2019-02-01] MEDS: dilTIAZem HCL 30 MG TABLET (FP) PO SCH ×4 (00:10→17:55)
[2019-02-01] MEDS: INSULIN SLIDING SCALE (NOVOLOG) 1 VIAL SQ SCH ×2 (06:30→16:15)
--- NOTE | 2019-02-01 08:12 | PN ---
Progress Note, Physician - Current Medication List Current Medications: Active Medications Acetaminophen (Tylenol -) 650 mg PO Q6H PRN PRN Reason: FEVER Last Admin: 01/31/19 15:20 Dose: 650 mg Aripiprazole (Abilify) 5 mg PO DAILY [facility] Last Admin: 01/31/19 09:43 Dose: 5 mg Benztropine Mesylate (Cogentin -) 0.5 mg PO HS [facility] Last Admin: 01/31/19 21:52 Dose: 0.5 mg Diltiazem HCl (Cardizem Injection -) 10 mg IVPUSH Q4H PRN PRN Reason: TACHYCARDIA Last Admin: 01/27/19 22:35 Dose: 10 mg Diltiazem HCl (Cardizem -) 30 mg PO Q6HPO [facility] Last Admin: 02/01/19 06:27 Dose: 30 mg Furosemide (Lasix -) 20 mg PO DAILY [facility] Last Admin: 01/31/19 09:43 Dose: 20 mg Insulin Aspart (Novolog Vial Sliding Scale -) 1 vial SQ BIDI [facility]; Protocol Last Admin: 02/01/19 06:30 Dose: 4 units Lisinopril (Prinivil) 2.5 mg PO DAILY [facility] Last Admin: 01/31/19 09:43 Dose: 2.5 mg Metoprolol Tartrate (Lopressor -) 50 mg PO QID [facility] Last Admin: 01/31/19 21:51 Dose: 50 mg Pantoprazole Sodium (Protonix -) 20 mg PO BID [facility] Last Admin: 01/31/19 21:51 Dose: 20 mg Rivaroxaban (Xarelto) 20 mg PO DAILY@1800 [facility] Last Admin: 01/31/19 17:44 Dose: 20 mg - Objective Vital Signs: Vital Signs Temperature 98.2 F 02/01/19 03:00 Pulse Rate 103 H 02/01/19 03:00 Respiratory Rate 22 H 02/01/19 03:00 Blood Pressure 105/71 02/01/19 03:00 O2 Sat by Pulse Oximetry (%) 99 01/31/19 20:32 Eyes: Yes: WNL, Conjunctiva Clear, EOM Intact HENT: Yes: WNL, Atraumatic, Normocephalic Neck: Yes: WNL, Supple, Trachea Midline Cardiovascular: Yes: Pulse Irregular Respiratory: Yes: WNL, Regular, CTA Bilaterally Gastrointestinal: Yes: WNL, Normal Bowel Sounds Genitourinary: Yes: WNL Musculoskeletal: Yes: WNL Extremities: Yes: WNL Edema: No Integumentary: Yes: WNL Neurological: Yes: WNL, Alert, Oriented ...Motor Strength: WNL Psychiatric: Yes: WNL Labs: CBC, BMP 01/31/19 19:50 01/29/19 05:35 Assessment/Plan - Problems (1) Demand ischemia Code(s): I24.8 - OTHER FORMS OF ACUTE ISCHEMIC HEART DISEASE (2) Anemia Code(s): D64.9 - ANEMIA, UNSPECIFIED Qualifiers: Anemia type: unspecified type Qualified Code(s): D64.9 - Anemia, unspecified (3) Diastolic dysfunction Code(s): I51.89 - OTHER ILL-DEFINED HEART DISEASES (4) Afib Code(s): I48.91 - UNSPECIFIED ATRIAL FIBRILLATION Qualifiers: Atrial fibrillation type: persistent (5) HTN (hypertension) Code(s): I10 - ESSENTIAL (PRIMARY) HYPERTENSION Qualifiers: Hypertension type: essential hypertension Qualified Code(s): I10 - Essential (primary) hypertension (6) Schizophrenia Code(s): F20.9 - SCHIZOPHRENIA, UNSPECIFIED Assessment/Plan 01/22/2019 Echo: Normal and RV size and fxn LVEF 53%, mild TR RVSP 34 mmHg, tr- mild MR, normal biatrial sizes 1. Persistent AF with RVR, [id number] score of 5 on DOAC 2. CAD with demand ischemia 3. Diastolic dysfunction with clinical class 0 NYHA classification heart failure 4. DM 5. HTN 6. Hypercholesterolemia 7. History of schizophrenia 8. History of osteomyelitis 9. History of CVA 10. Anemia post transfusion PLAN: 1. Continue Lopressor 50 mg QID, add Cardizem 30 QID Prinivil 2.5 qd as hemodynamics tolerate. 2. Continue Xarelto 20 mg QD with GI protection close monitoring of hemoglobin. If endoscopy is to be pursued, hold Xarelto for 2 days prior to procedure and resume once post-procedure 3. Continue diuretic therapy (PO Lasix) with close monitoring of renal function and electrolytes 4. GI team to consider upper endoscopy/colonoscopy with patient and primary team. cc time spent 37 min
--- NOTE | 2019-02-01 09:35 | PN ---
Progress Note, Physician History of Present Illness: stable no new issues - Current Medication List Current Medications: Active Medications Acetaminophen (Tylenol -) 650 mg PO Q6H PRN PRN Reason: FEVER Last Admin: 01/31/19 15:20 Dose: 650 mg Aripiprazole (Abilify) 5 mg PO DAILY [facility] Last Admin: 01/31/19 09:43 Dose: 5 mg Benztropine Mesylate (Cogentin -) 0.5 mg PO HS [facility] Last Admin: 01/31/19 21:52 Dose: 0.5 mg Diltiazem HCl (Cardizem Injection -) 10 mg IVPUSH Q4H PRN PRN Reason: TACHYCARDIA Last Admin: 01/27/19 22:35 Dose: 10 mg Diltiazem HCl (Cardizem -) 30 mg PO Q6HPO [facility] Last Admin: 02/01/19 06:27 Dose: 30 mg Furosemide (Lasix -) 20 mg PO DAILY [facility] Last Admin: 01/31/19 09:43 Dose: 20 mg Insulin Aspart (Novolog Vial Sliding Scale -) 1 vial SQ BIDI [facility]; Protocol Last Admin: 02/01/19 06:30 Dose: 4 units Lisinopril (Prinivil) 2.5 mg PO DAILY [facility] Last Admin: 01/31/19 09:43 Dose: 2.5 mg Metoprolol Tartrate (Lopressor -) 50 mg PO QID [facility] Last Admin: 01/31/19 21:51 Dose: 50 mg Pantoprazole Sodium (Protonix -) 20 mg PO BID [facility] Last Admin: 01/31/19 21:51 Dose: 20 mg Rivaroxaban (Xarelto) 20 mg PO DAILY@1800 [facility] Last Admin: 01/31/19 17:44 Dose: 20 mg - Objective Vital Signs: Vital Signs Temperature 99.1 F 02/01/19 08:09 Pulse Rate 98 H 02/01/19 08:09 Respiratory Rate 21 H 02/01/19 08:09 Blood Pressure 106/92 02/01/19 08:09 O2 Sat by Pulse Oximetry (%) 99 01/31/19 20:32 Constitutional: Yes: No Distress, Calm Cardiovascular: Yes: S1, S2 Respiratory: Yes: Regular, CTA Bilaterally Gastrointestinal: Yes: Normal Bowel Sounds, Soft Musculoskeletal: Yes: WNL Extremities: Yes: WNL Neurological: Yes: Alert, Other Psychiatric: Yes: Alert Labs: CBC, BMP 01/31/19 19:50 01/29/19 05:35 Assessment/Plan Problem List - Problems (1) Afib Code(s): I48.91 - UNSPECIFIED ATRIAL FIBRILLATION Qualifiers: Atrial fibrillation type: chronic Qualified Code(s): I48.2 - Chronic atrial fibrillation (2) Ataxia Code(s): R27.0 - ATAXIA, UNSPECIFIED (3) Diabetes Code(s): E11.9 - TYPE 2 DIABETES MELLITUS WITHOUT COMPLICATIONS (4) HTN (hypertension) Code(s): I10 - ESSENTIAL (PRIMARY) HYPERTENSION (5) Osteomyelitis Code(s): M86.9 - OSTEOMYELITIS, UNSPECIFIED (6) Schizophrenia Code(s): F20.9 - SCHIZOPHRENIA, UNSPECIFIED plan continue current mgmt afebrile rest as per the team low spikes
[2019-02-01] MEDS: FUROSEMIDE 20 MG TABLET (FP) PO SCH (09:59)
[2019-02-01] MEDS: ARIPiprazole 5 MG TABLET (FP) PO SCH (09:59)
[2019-02-01] MEDS: PANTOPRAZOLE 20 MG TABLET (FP) PO SCH ×2 (10:00→21:18)
[2019-02-01] MEDS: METOPROLOL TARTRATE 50 MG TABLET (FP) PO SCH ×4 (10:00→21:18)
[2019-02-01] MEDS: LISINOPRIL 5 MG TABLET (FP) PO SCH (10:01)
[2019-02-01] MEDS: ACETAMINOPHEN 325 MG TABLET (FP) PO PRN (10:06)
[2019-02-01] MEDS: RIVAROXABAN 20 MG TABLET PO SCH (17:55)
--- NOTE | 2019-02-01 18:39 | PN ---
Progress Note, Physician - Current Medication List Current Medications: Active Medications Acetaminophen (Tylenol -) 650 mg PO Q6H PRN PRN Reason: FEVER Last Admin: 02/01/19 10:06 Dose: 650 mg Aripiprazole (Abilify) 5 mg PO DAILY [facility] Last Admin: 02/01/19 09:59 Dose: 5 mg Benztropine Mesylate (Cogentin -) 0.5 mg PO HS [facility] Last Admin: 01/31/19 21:52 Dose: 0.5 mg Diltiazem HCl (Cardizem Injection -) 10 mg IVPUSH Q4H PRN PRN Reason: TACHYCARDIA Last Admin: 01/27/19 22:35 Dose: 10 mg Diltiazem HCl (Cardizem -) 30 mg PO Q6HPO [facility] Last Admin: 02/01/19 17:55 Dose: 30 mg Furosemide (Lasix -) 20 mg PO DAILY [facility] Last Admin: 02/01/19 09:59 Dose: 20 mg Insulin Aspart (Novolog Vial Sliding Scale -) 1 vial SQ BIDI [facility]; Protocol Last Admin: 02/01/19 16:15 Dose: 4 units Lisinopril (Prinivil) 2.5 mg PO DAILY [facility] Last Admin: 02/01/19 10:01 Dose: 2.5 mg Metoprolol Tartrate (Lopressor -) 50 mg PO QID [facility] Last Admin: 02/01/19 17:55 Dose: 50 mg Pantoprazole Sodium (Protonix -) 20 mg PO BID [facility] Last Admin: 02/01/19 10:00 Dose: 20 mg Rivaroxaban (Xarelto) 20 mg PO DAILY@1800 [facility] Last Admin: 02/01/19 17:55 Dose: 20 mg - Objective Vital Signs: Vital Signs Temperature 99.9 F H 02/01/19 16:30 Pulse Rate 86 02/01/19 16:30 Respiratory Rate 17 02/01/19 16:30 Blood Pressure 120/85 02/01/19 16:30 O2 Sat by Pulse Oximetry (%) 98 02/01/19 09:40 Constitutional: Yes: No Distress HENT: Yes: Atraumatic Neck: Yes: Supple Cardiovascular: Yes: Regular Rate and Rhythm Respiratory: Yes: CTA Bilaterally Gastrointestinal: Yes: Normal Bowel Sounds Extremities: Yes: WNL Edema: No Neurological: Yes: Alert, Oriented Labs: CBC, BMP 01/31/19 19:50 01/29/19 05:35 Problem List - Problems (1) Afib Assessment/Plan: meds getting adjusted stable Code(s): I48.91 - UNSPECIFIED ATRIAL FIBRILLATION Qualifiers: Atrial fibrillation type: persistent (2) Ataxia Assessment/Plan: possible rehab Code(s): R27.0 - ATAXIA, UNSPECIFIED (3) Diabetes Assessment/Plan: insulin sliding scale and bgms Code(s): E11.9 - TYPE 2 DIABETES MELLITUS WITHOUT COMPLICATIONS (4) HTN (hypertension) Code(s): I10 - ESSENTIAL (PRIMARY) HYPERTENSION Qualifiers: Hypertension type: essential hypertension Qualified Code(s): I10 - Essential (primary) hypertension (5) Osteomyelitis Code(s): M86.9 - OSTEOMYELITIS, UNSPECIFIED (6) Schizophrenia Code(s): F20.9 - SCHIZOPHRENIA, UNSPECIFIED (7) Anemia Assessment/Plan: need gi work up h/h dropped fu cbc patient is not able to give informed consent Code(s): D64.9 - ANEMIA, UNSPECIFIED Qualifiers: Anemia type: unspecified type Qualified Code(s): D64.9 - Anemia, unspecified
[2019-02-01] MEDS: BENZTROPINE MESYLATE 0.5 MG TABLET (FP) PO SCH (21:18)
[2019-02-01] MEDS ORDERED: INSULIN (NOVOLOG) ASPART 100 UNITS/ML 10ML VIAL ONE (22:00)
[2019-02-02] MEDS: dilTIAZem HCL 30 MG TABLET (FP) PO SCH ×5 (00:13→23:42)
[2019-02-02] MEDS: INSULIN SLIDING SCALE (NOVOLOG) 1 VIAL SQ SCH ×2 (06:20→17:13)
--- NOTE | 2019-02-02 08:33 | PN ---
Progress Note, Physician - Current Medication List Current Medications: Active Medications Acetaminophen (Tylenol -) 650 mg PO Q6H PRN PRN Reason: FEVER Last Admin: 02/01/19 10:06 Dose: 650 mg Aripiprazole (Abilify) 5 mg PO DAILY [facility] Last Admin: 02/01/19 09:59 Dose: 5 mg Benztropine Mesylate (Cogentin -) 0.5 mg PO HS [facility] Last Admin: 02/01/19 21:18 Dose: 0.5 mg Diltiazem HCl (Cardizem Injection -) 10 mg IVPUSH Q4H PRN PRN Reason: TACHYCARDIA Last Admin: 01/27/19 22:35 Dose: 10 mg Diltiazem HCl (Cardizem -) 30 mg PO Q6HPO [facility] Last Admin: 02/02/19 06:20 Dose: Not Given Furosemide (Lasix -) 20 mg PO DAILY [facility] Last Admin: 02/01/19 09:59 Dose: 20 mg Insulin Aspart (Novolog Vial Sliding Scale -) 1 vial SQ BIDI [facility]; Protocol Last Admin: 02/02/19 06:20 Dose: Not Given Lisinopril (Prinivil) 2.5 mg PO DAILY [facility] Last Admin: 02/01/19 10:01 Dose: 2.5 mg Metoprolol Tartrate (Lopressor -) 50 mg PO QID [facility] Last Admin: 02/01/19 21:18 Dose: 50 mg Pantoprazole Sodium (Protonix -) 20 mg PO BID [facility] Last Admin: 02/01/19 21:18 Dose: 20 mg Rivaroxaban (Xarelto) 20 mg PO DAILY@1800 [facility] Last Admin: 02/01/19 17:55 Dose: 20 mg - Objective Vital Signs: Vital Signs Temperature 98.4 F 02/02/19 06:00 Pulse Rate 97 H 02/02/19 06:00 Respiratory Rate 21 H 02/02/19 06:00 Blood Pressure 94/62 02/02/19 06:00 O2 Sat by Pulse Oximetry (%) 99 02/01/19 21:00 Eyes: Yes: WNL, Conjunctiva Clear, EOM Intact HENT: Yes: WNL, Atraumatic, Normocephalic Neck: Yes: WNL, Supple, Trachea Midline Cardiovascular: Yes: Pulse Irregular, Murmur Respiratory: Yes: WNL, Regular, CTA Bilaterally Gastrointestinal: Yes: WNL, Normal Bowel Sounds Genitourinary: Yes: WNL Musculoskeletal: Yes: WNL Extremities: Yes: WNL Edema: No Integumentary: Yes: WNL Neurological: Yes: WNL, Alert, Oriented ...Motor Strength: WNL Psychiatric: Yes: WNL Labs: CBC, BMP 01/31/19 19:50 01/29/19 05:35 Assessment/Plan - Problems (1) Demand ischemia Code(s): I24.8 - OTHER FORMS OF ACUTE ISCHEMIC HEART DISEASE (2) Anemia Code(s): D64.9 - ANEMIA, UNSPECIFIED Qualifiers: Anemia type: unspecified type Qualified Code(s): D64.9 - Anemia, unspecified (3) Diastolic dysfunction Code(s): I51.89 - OTHER ILL-DEFINED HEART DISEASES (4) Afib Code(s): I48.91 - UNSPECIFIED ATRIAL FIBRILLATION Qualifiers: Atrial fibrillation type: persistent (5) HTN (hypertension) Code(s): I10 - ESSENTIAL (PRIMARY) HYPERTENSION Qualifiers: Hypertension type: essential hypertension Qualified Code(s): I10 - Essential (primary) hypertension (6) Schizophrenia Code(s): F20.9 - SCHIZOPHRENIA, UNSPECIFIED Assessment/Plan 01/22/2019 Echo: Normal and RV size and fxn LVEF 53%, mild TR RVSP 34 mmHg, tr- mild MR, normal biatrial sizes 1. Persistent AF with RVR, [id number] score of 5 on DOAC 2. CAD with demand ischemia 3. Diastolic dysfunction with clinical class 0 NYHA classification heart failure 4. DM 5. HTN 6. Hypercholesterolemia 7. History of schizophrenia 8. History of osteomyelitis 9. History of CVA 10. Anemia post transfusion PLAN: 1. Continue Lopressor 50 mg QID, add Cardizem 30 QID Prinivil 2.5 qd as hemodynamics tolerate. 2. Continue Xarelto 20 mg QD with GI protection close monitoring of hemoglobin. If endoscopy is to be pursued, hold Xarelto for 2 days prior to procedure and resume once post-procedure 3. Continue diuretic therapy (PO Lasix) with close monitoring of renal function and electrolytes 4. GI team to consider upper endoscopy/colonoscopy with patient and primary team. cc time spent 37 min
[2019-02-02] MEDS: ARIPiprazole 5 MG TABLET (FP) PO SCH (09:51)
[2019-02-02] MEDS: METOPROLOL TARTRATE 50 MG TABLET (FP) PO SCH ×4 (09:51→21:20)
[2019-02-02] MEDS: PANTOPRAZOLE 20 MG TABLET (FP) PO SCH ×2 (09:51→21:20)
[2019-02-02] MEDS: FUROSEMIDE 20 MG TABLET (FP) PO SCH (09:52)
[2019-02-02] MEDS: LISINOPRIL 5 MG TABLET (FP) PO SCH (09:52)
--- NOTE | 2019-02-02 10:26 | PN ---
Progress Note, Physician History of Present Illness: no new issues - Current Medication List Current Medications: Active Medications Acetaminophen (Tylenol -) 650 mg PO Q6H PRN PRN Reason: FEVER Last Admin: 02/01/19 10:06 Dose: 650 mg Aripiprazole (Abilify) 5 mg PO DAILY [facility] Last Admin: 02/02/19 09:51 Dose: 5 mg Benztropine Mesylate (Cogentin -) 0.5 mg PO HS [facility] Last Admin: 02/01/19 21:18 Dose: 0.5 mg Diltiazem HCl (Cardizem Injection -) 10 mg IVPUSH Q4H PRN PRN Reason: TACHYCARDIA Last Admin: 01/27/19 22:35 Dose: 10 mg Diltiazem HCl (Cardizem -) 30 mg PO Q6HPO [facility] Last Admin: 02/02/19 06:20 Dose: Not Given Furosemide (Lasix -) 20 mg PO DAILY [facility] Last Admin: 02/02/19 09:52 Dose: 20 mg Insulin Aspart (Novolog Vial Sliding Scale -) 1 vial SQ BIDI [facility]; Protocol Last Admin: 02/02/19 06:20 Dose: Not Given Lisinopril (Prinivil) 2.5 mg PO DAILY [facility] Last Admin: 02/02/19 09:52 Dose: 2.5 mg Metoprolol Tartrate (Lopressor -) 50 mg PO QID [facility] Last Admin: 02/02/19 09:51 Dose: 50 mg Pantoprazole Sodium (Protonix -) 20 mg PO BID [facility] Last Admin: 02/02/19 09:51 Dose: 20 mg Rivaroxaban (Xarelto) 20 mg PO DAILY@1800 [facility] Last Admin: 02/01/19 17:55 Dose: 20 mg - Objective Vital Signs: Vital Signs Temperature 98.4 F 02/02/19 06:00 Pulse Rate 97 H 02/02/19 06:00 Respiratory Rate 21 H 02/02/19 06:00 Blood Pressure 94/62 02/02/19 06:00 O2 Sat by Pulse Oximetry (%) 99 02/01/19 21:00 Constitutional: Yes: No Distress, Calm Cardiovascular: Yes: Tachycardia, S1, S2 Respiratory: Yes: Regular, CTA Bilaterally Gastrointestinal: Yes: Normal Bowel Sounds, Soft Musculoskeletal: Yes: WNL Extremities: Yes: WNL Neurological: Yes: Alert, Other Psychiatric: Yes: Other Labs: CBC, BMP 01/31/19 19:50 01/29/19 05:35 Assessment/Plan Problem List - Problems (1) Afib Code(s): I48.91 - UNSPECIFIED ATRIAL FIBRILLATION Qualifiers: Atrial fibrillation type: chronic Qualified Code(s): I48.2 - Chronic atrial fibrillation (2) Ataxia Code(s): R27.0 - ATAXIA, UNSPECIFIED (3) Diabetes Code(s): E11.9 - TYPE 2 DIABETES MELLITUS WITHOUT COMPLICATIONS (4) HTN (hypertension) Code(s): I10 - ESSENTIAL (PRIMARY) HYPERTENSION (5) Osteomyelitis Code(s): M86.9 - OSTEOMYELITIS, UNSPECIFIED (6) Schizophrenia Code(s): F20.9 - SCHIZOPHRENIA, UNSPECIFIED plan continue current mgmt monitor heart rate cardio on case rest as per the team
[2019-02-02] MEDS: RIVAROXABAN 20 MG TABLET PO SCH (17:13)
[2019-02-02] MEDS: BENZTROPINE MESYLATE 0.5 MG TABLET (FP) PO SCH (21:20)
[2019-02-02] MEDS: ACETAMINOPHEN 325 MG TABLET (FP) PO PRN (21:22)
--- NOTE | 2019-02-02 23:01 | PN ---
Progress Note, Physician History of Present Illness: No new complaints - Current Medication List Current Medications: Active Medications Acetaminophen (Tylenol -) 650 mg PO Q6H PRN PRN Reason: FEVER Last Admin: 02/02/19 21:22 Dose: 650 mg Aripiprazole (Abilify) 5 mg PO DAILY [facility] Last Admin: 02/02/19 09:51 Dose: 5 mg Benztropine Mesylate (Cogentin -) 0.5 mg PO HS [facility] Last Admin: 02/02/19 21:20 Dose: 0.5 mg Diltiazem HCl (Cardizem Injection -) 10 mg IVPUSH Q4H PRN PRN Reason: TACHYCARDIA Last Admin: 01/27/19 22:35 Dose: 10 mg Diltiazem HCl (Cardizem -) 30 mg PO Q6HPO [facility] Last Admin: 02/02/19 17:13 Dose: 30 mg Furosemide (Lasix -) 20 mg PO DAILY [facility] Last Admin: 02/02/19 09:52 Dose: 20 mg Insulin Aspart (Novolog Vial Sliding Scale -) 1 vial SQ BIDI [facility]; Protocol Last Admin: 02/02/19 17:13 Dose: 2 units Lisinopril (Prinivil) 2.5 mg PO DAILY [facility] Last Admin: 02/02/19 09:52 Dose: 2.5 mg Metoprolol Tartrate (Lopressor -) 50 mg PO QID [facility] Last Admin: 02/02/19 21:20 Dose: 50 mg Pantoprazole Sodium (Protonix -) 20 mg PO BID [facility] Last Admin: 02/02/19 21:20 Dose: 20 mg Rivaroxaban (Xarelto) 20 mg PO DAILY@1800 [facility] Last Admin: 02/02/19 17:13 Dose: 20 mg - Objective Vital Signs: Vital Signs Temperature 99 F 02/02/19 18:45 Pulse Rate 114 H 02/02/19 16:00 Respiratory Rate 22 H 02/02/19 16:00 Blood Pressure 97/75 02/02/19 16:00 O2 Sat by Pulse Oximetry (%) 99 02/02/19 09:00 Neck: Yes: WNL, Supple Cardiovascular: Yes: Tachycardia Respiratory: Yes: WNL, Regular, CTA Bilaterally Gastrointestinal: Yes: WNL, Normal Bowel Sounds, Soft Edema: No Labs: CBC, BMP 01/31/19 19:50 01/29/19 05:35 Problem List - Problems (1) Afib Assessment/Plan: Slightly tachy Cont eliquis Code(s): I48.91 - UNSPECIFIED ATRIAL FIBRILLATION Qualifiers: Atrial fibrillation type: persistent (2) Anemia Assessment/Plan: Check H/H in am Code(s): D64.9 - ANEMIA, UNSPECIFIED Qualifiers: Anemia type: unspecified type Qualified Code(s): D64.9 - Anemia, unspecified (3) Ataxia Code(s): R27.0 - ATAXIA, UNSPECIFIED (4) Diastolic dysfunction Code(s): I51.89 - OTHER ILL-DEFINED HEART DISEASES (5) Diabetes Code(s): E11.9 - TYPE 2 DIABETES MELLITUS WITHOUT COMPLICATIONS (6) HTN (hypertension) Code(s): I10 - ESSENTIAL (PRIMARY) HYPERTENSION Qualifiers: Hypertension type: essential hypertension Qualified Code(s): I10 - Essential (primary) hypertension (7) Schizophrenia Code(s): F20.9 - SCHIZOPHRENIA, UNSPECIFIED
[2019-02-03 01:43] LABS: HEMATOCRIT 26.4 % (35.4-49); HEMOGLOBIN 8.5 GM/dL (11.7-16.9); MCH 22.8 pg (25.7-33.7); MCHC 32.4 g/dl (32.0-35.9); MEAN CELL VOLUME 70.3 fl (80-96); MEAN PLT VOLUME 7.7 fl (7.5-11.1); PLATELET COUNT 281 K/MM3 (134-434); RBC 3.75 M/mm3 (4.00-5.60); RDW 24.2 % (11.9-15.9); WHITE BLOOD COUNT 10.2 K/mm3 (4.0-10.0)
[2019-02-03] MEDS: dilTIAZem HCL 30 MG TABLET (FP) PO SCH ×4 (06:16→23:47)
[2019-02-03] MEDS: INSULIN SLIDING SCALE (NOVOLOG) 1 VIAL SQ SCH ×2 (06:38→16:34)
--- NOTE | 2019-02-03 08:07 | CON.ORTH ---
Consult Reason for Consultation:: right knee/thigh pain - Past Medical History Cardio/Vascular: Yes: AFIB, HTN Psych: Yes: Schizophrenia - Alcohol/Substance Use Hx Alcohol Use: No - Smoking History Smoking history: Former smoker Have you smoked in the past 12 months: No Aproximately how many cigarettes per day: 3 - Social History Usual Living Arrangement: Assisted Living Home Medications - Allergies Allergies/Adverse Reactions: Allergies Allergy/AdvReac Type Severity Reaction Status Date / Time chlorpromazine Allergy Verified 01/13/19 13:30 [From Thorazine] torazine Allergy Uncoded 01/13/19 09:56 - Home Medications Home Medications: Ambulatory Orders Acetaminophen [Tylenol] 650 mg PO Q6H PRN 09/05/18 Aripiprazole [Abilify -] 5 mg PO DAILY 09/05/18 Furosemide [Lasix] 20 mg PO DAILY 5 Days #5 tablet 12/09/18 Benztropine Mesylate [Cogentin -] 0.5 mg PO DAILY 01/13/19 Haloperidol [Haldol -] 0.5 mg PO DAILY 01/13/19 Insulin Sliding Scale [Novolog Vial Sliding Scale -] 0 unit SQ BID 01/13/19 Omeprazole Magnesium [Prilosec Otc] 20 mg PO BID 01/13/19 Rivaroxaban [Xarelto -] 20 mg PO DAILY@1800 #30 tablet 01/16/19 Metoprolol Tartrate [Lopressor -] 50 mg PO TID #90 tablet 01/26/19 Physical Exam for Ortho Vital Signs: Vital Signs Temperature 99.7 F H 02/03/19 06:00 Pulse Rate 101 H 02/03/19 06:00 Respiratory Rate 20 02/03/19 06:00 Blood Pressure 94/67 02/03/19 06:00 O2 Sat by Pulse Oximetry (%) 93 L 02/02/19 22:00 Labs: CBC, BMP 02/03/19 01:30 01/29/19 05:35 - Lower Extremity Knee: Yes: Right, Other (no swelling, nontender, full rom, nvi) Assessment/Plan 68yM w PMHx HTN, DM, afib, schizohrenia, and L leg osteomyelitis presenting with ataxia. Pt is poor historian. She noticed trouble walking and balancing with R leg heaviness for the last 2 weeks. No leg pain. Went to neurologist , told her to go to ED for lung opacity. Pt states that she fell. She had some pain in her right knee and thigh but is currently much improved. She states that she feels little to no pain. previous h/o djd in the right knee. a/p- right knee/thigh contusion, djd Pt is improved with little to no pain NTD no restrictions re-consult prn d/w Dr. Ceron
[2019-02-03] MEDS: FUROSEMIDE 20 MG TABLET (FP) PO SCH (09:40)
[2019-02-03] MEDS: METOPROLOL TARTRATE 50 MG TABLET (FP) PO SCH ×4 (09:40→21:28)
[2019-02-03] MEDS: ARIPiprazole 5 MG TABLET (FP) PO SCH (09:40)
[2019-02-03] MEDS: LISINOPRIL 5 MG TABLET (FP) PO SCH (09:40)
[2019-02-03] MEDS: PANTOPRAZOLE 20 MG TABLET (FP) PO SCH ×2 (09:41→21:28)
--- NOTE | 2019-02-03 12:24 | PN ---
Progress Note, Physician History of Present Illness: Afib with improved rate-control, asymptomatic and denies chest pain, dyspnea, palpitations. Low grade fevers overnight. Patient lacks mental capacity to consent for endoscopy. - Current Medication List Current Medications: Active Medications Acetaminophen (Tylenol -) 650 mg PO Q6H PRN PRN Reason: FEVER Last Admin: 02/02/19 21:22 Dose: 650 mg Aripiprazole (Abilify) 5 mg PO DAILY [facility] Last Admin: 02/03/19 09:40 Dose: 5 mg Benztropine Mesylate (Cogentin -) 0.5 mg PO HS [facility] Last Admin: 02/02/19 21:20 Dose: 0.5 mg Diltiazem HCl (Cardizem Injection -) 10 mg IVPUSH Q4H PRN PRN Reason: TACHYCARDIA Last Admin: 01/27/19 22:35 Dose: 10 mg Diltiazem HCl (Cardizem -) 30 mg PO Q6HPO [facility] Last Admin: 02/03/19 11:35 Dose: 30 mg Furosemide (Lasix -) 20 mg PO DAILY [facility] Last Admin: 02/03/19 09:40 Dose: 20 mg Insulin Aspart (Novolog Vial Sliding Scale -) 1 vial SQ BIDI [facility]; Protocol Last Admin: 02/03/19 06:38 Dose: Not Given Lisinopril (Prinivil) 2.5 mg PO DAILY [facility] Last Admin: 02/03/19 09:40 Dose: 2.5 mg Metoprolol Tartrate (Lopressor -) 50 mg PO QID [facility] Last Admin: 02/03/19 09:40 Dose: 50 mg Pantoprazole Sodium (Protonix -) 20 mg PO BID [facility] Last Admin: 02/03/19 09:41 Dose: 20 mg Rivaroxaban (Xarelto) 20 mg PO DAILY@1800 [facility] Last Admin: 02/02/19 17:13 Dose: 20 mg - Objective Vital Signs: Vital Signs Temperature 98.9 F 02/03/19 08:02 Pulse Rate 92 H 02/03/19 11:36 Respiratory Rate 18 02/03/19 11:36 Blood Pressure 99/70 02/03/19 11:36 O2 Sat by Pulse Oximetry (%) 96 02/03/19 09:00 Constitutional: Yes: No Distress, Calm Neck: Yes: Supple Cardiovascular: Yes: Pulse Irregular Respiratory: Yes: Regular, Diminished, On Nasal O2 Gastrointestinal: Yes: Normal Bowel Sounds, Soft, Abdomen, Obese Edema: No Labs: CBC, BMP 02/03/19 01:30 01/29/19 05:35 - ....Imaging EKG: Report Reviewed (Tele: Rate-controlled afib) Problem List - Problems (1) Demand ischemia Code(s): I24.8 - OTHER FORMS OF ACUTE ISCHEMIC HEART DISEASE (2) Anemia Code(s): D64.9 - ANEMIA, UNSPECIFIED Qualifiers: Anemia type: unspecified type Qualified Code(s): D64.9 - Anemia, unspecified (3) Diastolic dysfunction Code(s): I51.89 - OTHER ILL-DEFINED HEART DISEASES (4) Afib Code(s): I48.91 - UNSPECIFIED ATRIAL FIBRILLATION Qualifiers: Atrial fibrillation type: persistent (5) HTN (hypertension) Code(s): I10 - ESSENTIAL (PRIMARY) HYPERTENSION Qualifiers: Hypertension type: essential hypertension Qualified Code(s): I10 - Essential (primary) hypertension (6) Schizophrenia Code(s): F20.9 - SCHIZOPHRENIA, UNSPECIFIED Assessment/Plan 01/22/2019 Echo: Normal and RV size and fxn LVEF 53%, mild TR RVSP 34 mmHg, tr- mild MR, normal biatrial sizes 1. Persistent AF with improved rate-control, [id number] score of 5 on DOAC 2. CAD with demand ischemia 3. Diastolic dysfunction with clinical class 0 NYHA classification heart failure 4. DM 5. HTN 6. Hypercholesterolemia 7. History of schizophrenia 8. History of osteomyelitis 9. History of CVA 10. Anemia post transfusion PLAN: 1. Continue Lopressor 50 mg QID and Cardizem 30 QID and IV Cardizem as needed for rate-control and Prinivil 2.5 qd as hemodynamics tolerate. 2. Continue Xarelto 20 mg QD with GI protection close monitoring of hemoglobin. If endoscopy is to be pursued, hold Xarelto for 2 days prior to procedure and resume once post-procedure 3. Continue diuretic therapy (PO Lasix) with close monitoring of renal function and electrolytes 4. GI team to consider upper endoscopy/colonoscopy with patient and primary team.
--- NOTE | 2019-02-03 12:33 | PN ---
Progress Note, Physician History of Present Illness: stable rt knee swelling ortho on case - Current Medication List Current Medications: Active Medications Acetaminophen (Tylenol -) 650 mg PO Q6H PRN PRN Reason: FEVER Last Admin: 02/02/19 21:22 Dose: 650 mg Aripiprazole (Abilify) 5 mg PO DAILY [facility] Last Admin: 02/03/19 09:40 Dose: 5 mg Benztropine Mesylate (Cogentin -) 0.5 mg PO HS [facility] Last Admin: 02/02/19 21:20 Dose: 0.5 mg Diltiazem HCl (Cardizem Injection -) 10 mg IVPUSH Q4H PRN PRN Reason: TACHYCARDIA Last Admin: 01/27/19 22:35 Dose: 10 mg Diltiazem HCl (Cardizem -) 30 mg PO Q6HPO [facility] Last Admin: 02/03/19 11:35 Dose: 30 mg Furosemide (Lasix -) 20 mg PO DAILY [facility] Last Admin: 02/03/19 09:40 Dose: 20 mg Insulin Aspart (Novolog Vial Sliding Scale -) 1 vial SQ BIDI [facility]; Protocol Last Admin: 02/03/19 06:38 Dose: Not Given Lisinopril (Prinivil) 2.5 mg PO DAILY [facility] Last Admin: 02/03/19 09:40 Dose: 2.5 mg Metoprolol Tartrate (Lopressor -) 50 mg PO QID [facility] Last Admin: 02/03/19 09:40 Dose: 50 mg Pantoprazole Sodium (Protonix -) 20 mg PO BID [facility] Last Admin: 02/03/19 09:41 Dose: 20 mg Rivaroxaban (Xarelto) 20 mg PO DAILY@1800 [facility] Last Admin: 02/02/19 17:13 Dose: 20 mg - Objective Vital Signs: Vital Signs Temperature 98.9 F 02/03/19 08:02 Pulse Rate 98 H 02/03/19 12:30 Respiratory Rate 26 H 02/03/19 12:30 Blood Pressure 83/64 L 02/03/19 12:30 O2 Sat by Pulse Oximetry (%) 96 02/03/19 09:00 Constitutional: Yes: No Distress, Calm Cardiovascular: Yes: Tachycardia, Pulse Irregular, S1, S2 Respiratory: Yes: Regular, CTA Bilaterally Gastrointestinal: Yes: Normal Bowel Sounds, Soft Musculoskeletal: Yes: WNL, Other (rt knee swelling) Extremities: Yes: Other Neurological: Yes: Alert Psychiatric: Yes: Alert Labs: CBC, BMP 02/03/19 01:30 01/29/19 05:35 Assessment/Plan Problem List - Problems (1) Afib Code(s): I48.91 - UNSPECIFIED ATRIAL FIBRILLATION Qualifiers: Atrial fibrillation type: chronic Qualified Code(s): I48.2 - Chronic atrial fibrillation (2) Ataxia Code(s): R27.0 - ATAXIA, UNSPECIFIED (3) Diabetes Code(s): E11.9 - TYPE 2 DIABETES MELLITUS WITHOUT COMPLICATIONS (4) HTN (hypertension) Code(s): I10 - ESSENTIAL (PRIMARY) HYPERTENSION (5) Osteomyelitis Code(s): M86.9 - OSTEOMYELITIS, UNSPECIFIED (6) Schizophrenia Code(s): F20.9 - SCHIZOPHRENIA, UNSPECIFIED plan started on ceftriaxone by the team will see how patient does tomorrow might have to add vanco ortho will need to reevaulate rest as per the team
[2019-02-03] MEDS: ACETAMINOPHEN 325 MG TABLET (FP) PO PRN ×2 (13:03→19:01)
[2019-02-03] MEDS: RIVAROXABAN 20 MG TABLET PO SCH (18:15)
--- NOTE | 2019-02-03 18:37 | PN ---
Progress Note, Physician History of Present Illness: stable - Current Medication List Current Medications: Active Medications Acetaminophen (Tylenol -) 650 mg PO Q6H PRN PRN Reason: FEVER Last Admin: 02/03/19 13:03 Dose: 650 mg Aripiprazole (Abilify) 5 mg PO DAILY [facility] Last Admin: 02/03/19 09:40 Dose: 5 mg Benztropine Mesylate (Cogentin -) 0.5 mg PO HS [facility] Last Admin: 02/02/19 21:20 Dose: 0.5 mg Diltiazem HCl (Cardizem Injection -) 10 mg IVPUSH Q4H PRN PRN Reason: TACHYCARDIA Last Admin: 01/27/19 22:35 Dose: 10 mg Diltiazem HCl (Cardizem -) 30 mg PO Q6HPO [facility] Last Admin: 02/03/19 18:15 Dose: 30 mg Furosemide (Lasix -) 20 mg PO DAILY [facility] Last Admin: 02/03/19 09:40 Dose: 20 mg Insulin Aspart (Novolog Vial Sliding Scale -) 1 vial SQ BIDI [facility]; Protocol Last Admin: 02/03/19 16:34 Dose: 2 units Lisinopril (Prinivil) 2.5 mg PO DAILY [facility] Last Admin: 02/03/19 09:40 Dose: 2.5 mg Metoprolol Tartrate (Lopressor -) 50 mg PO QID [facility] Last Admin: 02/03/19 18:18 Dose: 50 mg Pantoprazole Sodium (Protonix -) 20 mg PO BID [facility] Last Admin: 02/03/19 09:41 Dose: 20 mg Rivaroxaban (Xarelto) 20 mg PO DAILY@1800 [facility] Last Admin: 02/03/19 18:15 Dose: 20 mg - Objective Vital Signs: Vital Signs Temperature 99.0 F 02/03/19 16:28 Pulse Rate 99 H 02/03/19 16:00 Respiratory Rate 23 H 02/03/19 16:00 Blood Pressure 99/76 02/03/19 16:00 O2 Sat by Pulse Oximetry (%) 96 02/03/19 09:00 Constitutional: Yes: No Distress HENT: Yes: Atraumatic Neck: Yes: Supple Cardiovascular: Yes: Regular Rate and Rhythm Respiratory: Yes: CTA Bilaterally Gastrointestinal: Yes: Normal Bowel Sounds Extremities: Yes: Other (R kneee warm , swollen) Edema: No Peripheral Pulses WNL: Yes Neurological: Yes: Alert Labs: CBC, BMP 02/03/19 01:30 01/29/19 05:35 Problem List - Problems (1) Afib Code(s): I48.91 - UNSPECIFIED ATRIAL FIBRILLATION Qualifiers: Atrial fibrillation type: persistent (2) Ataxia Code(s): R27.0 - ATAXIA, UNSPECIFIED (3) Diabetes Code(s): E11.9 - TYPE 2 DIABETES MELLITUS WITHOUT COMPLICATIONS (4) HTN (hypertension) Code(s): I10 - ESSENTIAL (PRIMARY) HYPERTENSION Qualifiers: Hypertension type: essential hypertension Qualified Code(s): I10 - Essential (primary) hypertension (5) Osteomyelitis Code(s): M86.9 - OSTEOMYELITIS, UNSPECIFIED (6) Schizophrenia Code(s): F20.9 - SCHIZOPHRENIA, UNSPECIFIED (7) Anemia Assessment/Plan: need gi work up,,,egd/colonoscopy h/h dropped...s/p blood transfusion fu cbc patient is not able to give informed consent,and has no family GI HAS TO CALL MANAGER LINE AT [facility] TO TAKE INFORMED CONSENT Code(s): D64.9 - ANEMIA, UNSPECIFIED Qualifiers: Anemia type: unspecified type Qualified Code(s): D64.9 - Anemia, unspecified (8) Septic arthritis Assessment/Plan: start abx r/o septic arthritis vs arthritis/gout Code(s): M00.9 - PYOGENIC ARTHRITIS, UNSPECIFIED Assessment/Plan patient need snf gi work up per gi
[2019-02-03] MEDS ORDERED: DEXTROSE 5%-WATER - 50 ML IVPB ONE (20:12)
[2019-02-03] MEDS ORDERED: cefTRIAXone SODIUM 1 GM VIAL ONE (20:12)
[2019-02-03] MEDS: CEFTRIAXONE 1 GM in DEXTROSE 5%-WATER - 50 ML IVPB SCH (20:22)
[2019-02-03] MEDS: BENZTROPINE MESYLATE 0.5 MG TABLET (FP) PO SCH (21:28)
[2019-02-04] MEDS: dilTIAZem HCL 30 MG TABLET (FP) PO SCH ×3 (05:43→17:34)
[2019-02-04] MEDS: INSULIN SLIDING SCALE (NOVOLOG) 1 VIAL SQ SCH ×2 (05:59→16:25)
--- NOTE | 2019-02-04 07:02 | PN ---
Progress Note (short form) - Note Progress Note: Chief Complaint: Events noted, notes reviewed, denies any chest discomfort, denies any dyspnea, atrial fibrillation is persistent with improved/controlled ventricular response History of Present Illness: Seen and examined on telemetry. Events noted, notes reviewed, denies any chest discomfort, denies any dyspnea, atrial fibrillation is persistent with improved/ controlled ventricular response Medications: Current Medications Acetaminophen (Tylenol -) 650 mg PO Q6H PRN PRN Reason: FEVER Last Admin: 02/03/19 19:01 Dose: 650 mg Aripiprazole (Abilify) 5 mg PO DAILY [facility] Last Admin: 02/03/19 09:40 Dose: 5 mg Benztropine Mesylate (Cogentin -) 0.5 mg PO HS [facility] Last Admin: 02/03/19 21:28 Dose: 0.5 mg Diltiazem HCl (Cardizem Injection -) 10 mg IVPUSH Q4H PRN PRN Reason: TACHYCARDIA Last Admin: 01/27/19 22:35 Dose: 10 mg Diltiazem HCl (Cardizem -) 30 mg PO Q6HPO [facility] Last Admin: 02/04/19 05:43 Dose: 30 mg Furosemide (Lasix -) 20 mg PO DAILY [facility] Last Admin: 02/03/19 09:40 Dose: 20 mg Ceftriaxone Sodium 1 gm/ (Dextrose) 50 mls @ 100 mls/hr IVPB DAILY [facility]; Protocol Last Admin: 02/03/19 20:22 Dose: 100 mls/hr Insulin Aspart (Novolog Vial Sliding Scale -) 1 vial SQ BIDI [facility]; Protocol Last Admin: 02/04/19 05:59 Dose: 2 units Lisinopril (Prinivil) 2.5 mg PO DAILY [facility] Last Admin: 02/03/19 09:40 Dose: 2.5 mg Metoprolol Tartrate (Lopressor -) 50 mg PO QID [facility] Last Admin: 02/03/19 21:28 Dose: 50 mg Pantoprazole Sodium (Protonix -) 20 mg PO BID [facility] Last Admin: 02/03/19 21:28 Dose: 20 mg Rivaroxaban (Xarelto) 20 mg PO DAILY@1800 [facility] Last Admin: 02/03/19 18:15 Dose: 20 mg Review of Systems - Review of Systems Constitutional: no symptoms reported Respiratory: denies: Cough or Sputum Production Cardiovascular: as noted above Gastrointestinal: denies Nausea, Vomiting, Diarrhea, Constipation or Abdominal Pain Genitourinary: No symptoms reported Musculoskeletal: No symptoms reported Endocrine: No symptoms reported Vital Signs: Last Vital Signs Temp Pulse Resp BP Pulse Ox 99.1 F 86 21 H 104/62 96 02/04/19 00:00 02/04/19 04:00 02/04/19 04:00 02/04/19 04:00 02/03/19 21:00 Intake & Output 02/01/19 02/02/19 02/03/19 02/04/19 23:59 23:59 23:59 23:59 Intake Total 550 160 600 50 Output Total 2200 400 1650 850 Balance -1650 -240 -1050 -800 Weight 197 lb 11.2 oz Constitutional: No Distress, Calm Neck: Supple Negative JVD No Bruit Respiratory: Diminished Breath Sounds at the Bases Cardiovascular: S1 S2 irregularly irregular Gastrointestinal: Soft Benign Normal Bowel Sounds Ext: No Edema Labs: CBC, BMP 02/03/19 01:30 01/29/19 05:35 Hepatic Panel Total Bilirubin 1.2 mg/dL (0.2-1) H 01/29/19 05:35 AST 24 U/L (15-37) 01/29/19 05:35 ALT 26 U/L (13-61) 01/29/19 05:35 Alkaline Phosphatase 105 U/L (45-117) 01/29/19 05:35 Albumin 2.1 g/dl (3.4-5.0) L 01/29/19 05:35 Assessment/Plan ASSESSMENT: 1. Persistent atrial fibrillation with improved/controlled ventricular response , [id number] score of 5 on DOAC's/Xarelto 2. Coronary artery disease with evidence of demand ischemia no clinical angina pectoris 3. Diastolic left ventricular dysfunction with clinical class 0 [place] [employer] classification left ventricular failure 4. Hypertensive cardiovascular disease 5. Diabetes mellitus 6. Hypercholesterolemia 7. History of cerebrovascular disease 8. History of schizophrenia 9. History of ataxia 10. History of osteomyelitis 11. Anemia PLAN: 1. Continue Lopressor at 50 mg four times daily (may switch to Toprol-XL once patient is ready for discharge), hemodynamics permitting 2. Continue Prinivil, hemodynamics permitting 3. Continue Cardizem at 30 mg four times daily (may switch to Cardizem CD once patient is ready for discharge), hemodynamics permitting 4. Continue Xarelto with close monitoring of hemoglobin level, maintain hemoglobin equal or greater than 8.0 5. Continue diuretic therapy/Lasix therapy with close monitoring of renal function and electrolytes Ubaldo Kim M.D.
[2019-02-04] MEDS ORDERED: cefTRIAXone SODIUM 1 GM VIAL ONE (08:58)
[2019-02-04] MEDS ORDERED: DEXTROSE 5%-WATER - 50 ML IVPB ONE (08:58)
[2019-02-04] MEDS: PANTOPRAZOLE 20 MG TABLET (FP) PO SCH ×2 (09:02→22:31)
[2019-02-04] MEDS: LISINOPRIL 5 MG TABLET (FP) PO SCH (09:02)
[2019-02-04] MEDS: FUROSEMIDE 20 MG TABLET (FP) PO SCH (09:04)
[2019-02-04] MEDS: ARIPiprazole 5 MG TABLET (FP) PO SCH (09:05)
[2019-02-04] MEDS: METOPROLOL TARTRATE 50 MG TABLET (FP) PO SCH ×4 (09:05→22:31)
[2019-02-04] MEDS ORDERED: PT OWN MED DRAWER 7, Y5N ONE (09:31)
--- NOTE | 2019-02-04 13:08 | PN ---
Progress Note, Physician History of Present Illness: patient comfortable rt knee swollen and warm - Current Medication List Current Medications: Active Medications Acetaminophen (Tylenol -) 650 mg PO Q6H PRN PRN Reason: FEVER Last Admin: 02/03/19 19:01 Dose: 650 mg Aripiprazole (Abilify) 5 mg PO DAILY [facility] Last Admin: 02/04/19 09:05 Dose: 5 mg Benztropine Mesylate (Cogentin -) 0.5 mg PO HS [facility] Last Admin: 02/03/19 21:28 Dose: 0.5 mg Diltiazem HCl (Cardizem Injection -) 10 mg IVPUSH Q4H PRN PRN Reason: TACHYCARDIA Last Admin: 01/27/19 22:35 Dose: 10 mg Diltiazem HCl (Cardizem -) 30 mg PO Q6HPO [facility] Last Admin: 02/04/19 10:59 Dose: 30 mg Furosemide (Lasix -) 20 mg PO DAILY [facility] Last Admin: 02/04/19 09:04 Dose: 20 mg Ceftriaxone Sodium 1 gm/ (Dextrose) 50 mls @ 100 mls/hr IVPB DAILY [facility]; Protocol Last Admin: 02/03/19 20:22 Dose: 100 mls/hr Insulin Aspart (Novolog Vial Sliding Scale -) 1 vial SQ BIDI [facility]; Protocol Last Admin: 02/04/19 05:59 Dose: 2 units Lisinopril (Prinivil) 2.5 mg PO DAILY [facility] Last Admin: 02/04/19 09:02 Dose: 2.5 mg Metoprolol Tartrate (Lopressor -) 50 mg PO QID [facility] Last Admin: 02/04/19 13:02 Dose: 50 mg Pantoprazole Sodium (Protonix -) 20 mg PO BID [facility] Last Admin: 02/04/19 09:02 Dose: 20 mg Rivaroxaban (Xarelto) 20 mg PO DAILY@1800 [facility] Last Admin: 02/03/19 18:15 Dose: 20 mg - Objective Vital Signs: Vital Signs Temperature 99.1 F 02/04/19 00:00 Pulse Rate 91 H 02/04/19 08:00 Respiratory Rate 24 H 02/04/19 09:00 Blood Pressure 91/65 02/04/19 08:00 O2 Sat by Pulse Oximetry (%) 96 02/04/19 09:00 Constitutional: Yes: No Distress, Calm Cardiovascular: Yes: Tachycardia, Pulse Irregular, S1, S2 Respiratory: Yes: Regular, CTA Bilaterally Gastrointestinal: Yes: Normal Bowel Sounds, Soft Musculoskeletal: Yes: WNL Extremities: Yes: Other (rt knee swollen) Neurological: Yes: Alert Labs: CBC, BMP 02/03/19 01:30 01/29/19 05:35 Assessment/Plan Problem List - Problems (1) Afib Code(s): I48.91 - UNSPECIFIED ATRIAL FIBRILLATION Qualifiers: Atrial fibrillation type: chronic Qualified Code(s): I48.2 - Chronic atrial fibrillation (2) Ataxia Code(s): R27.0 - ATAXIA, UNSPECIFIED (3) Diabetes Code(s): E11.9 - TYPE 2 DIABETES MELLITUS WITHOUT COMPLICATIONS (4) HTN (hypertension) Code(s): I10 - ESSENTIAL (PRIMARY) HYPERTENSION (5) Osteomyelitis Code(s): M86.9 - OSTEOMYELITIS, UNSPECIFIED (6) Schizophrenia Code(s): F20.9 - SCHIZOPHRENIA, UNSPECIFIED plan continue current mgmt ortho on case on ceftriaxone ortho to see again patient might need tapping will start on vanco
--- NOTE | 2019-02-04 15:11 | PN ---
Progress Note (short form) - Note Progress Note: Ortho Pt seen and examined- right knee now with 2+ effusion, pain, unreliable historian Selected Entries 02/04/19 02/04/19 08:00 12:00 Temperature 98.9 F Pulse Rate 91 H Respiratory 25 H Rate Blood Pressure 117/75 Laboratory Tests 02/03/19 01:30 WBC 10.2 H Hgb 8.5 L Hct 26.4 L Plt Count 281 2+ effusion, no erythema, + ttp, rom 5- 70, calf soft nt, nvi a/p- right knee djd, effusion recommend aspiration to r/o infectious pathology but ? consent xray of right knee ESR, CRP, cbc tomorrow will aspirate tomorrow if its determined who will give consent will f/u d/w Dr. Ceron
--- NOTE | 2019-02-04 15:37 | PN ---
Progress Note, Physician History of Present Illness: stable - Current Medication List Current Medications: Active Medications Acetaminophen (Tylenol -) 650 mg PO Q6H PRN PRN Reason: FEVER Last Admin: 02/03/19 19:01 Dose: 650 mg Aripiprazole (Abilify) 5 mg PO DAILY [facility] Last Admin: 02/04/19 09:05 Dose: 5 mg Benztropine Mesylate (Cogentin -) 0.5 mg PO HS [facility] Last Admin: 02/03/19 21:28 Dose: 0.5 mg Diltiazem HCl (Cardizem Injection -) 10 mg IVPUSH Q4H PRN PRN Reason: TACHYCARDIA Last Admin: 01/27/19 22:35 Dose: 10 mg Diltiazem HCl (Cardizem -) 30 mg PO Q6HPO [facility] Last Admin: 02/04/19 10:59 Dose: 30 mg Furosemide (Lasix -) 20 mg PO DAILY [facility] Last Admin: 02/04/19 09:04 Dose: 20 mg Ceftriaxone Sodium 1 gm/ (Dextrose) 50 mls @ 100 mls/hr IVPB DAILY [facility]; Protocol Last Admin: 02/03/19 20:22 Dose: 100 mls/hr Vancomycin HCl 1,250 mg/ (Dextrose) 250 mls @ 250 mls/2 hr IVPB Q24H [facility]; Protocol Insulin Aspart (Novolog Vial Sliding Scale -) 1 vial SQ BIDI [facility]; Protocol Last Admin: 02/04/19 05:59 Dose: 2 units Lisinopril (Prinivil) 2.5 mg PO DAILY [facility] Last Admin: 02/04/19 09:02 Dose: 2.5 mg Metoprolol Tartrate (Lopressor -) 50 mg PO QID [facility] Last Admin: 02/04/19 13:02 Dose: 50 mg Pantoprazole Sodium (Protonix -) 20 mg PO BID [facility] Last Admin: 02/04/19 09:02 Dose: 20 mg Rivaroxaban (Xarelto) 20 mg PO DAILY@1800 [facility] Last Admin: 02/03/19 18:15 Dose: 20 mg - Objective Vital Signs: Vital Signs Temperature 98.9 F 02/04/19 12:00 Pulse Rate 127 H 02/04/19 12:00 Respiratory Rate 25 H 02/04/19 12:00 Blood Pressure 117/75 02/04/19 12:00 O2 Sat by Pulse Oximetry (%) 96 02/04/19 09:00 Constitutional: Yes: No Distress HENT: Yes: Atraumatic Neck: Yes: Supple Cardiovascular: Yes: Regular Rate and Rhythm Respiratory: Yes: CTA Bilaterally Gastrointestinal: Yes: Normal Bowel Sounds Extremities: Yes: Other (R knee swollen) Neurological: Yes: Alert Labs: CBC, BMP 02/03/19 01:30 01/29/19 05:35 Problem List - Problems (1) Afib Assessment/Plan: on meds stable Code(s): I48.91 - UNSPECIFIED ATRIAL FIBRILLATION Qualifiers: Atrial fibrillation type: persistent (2) Ataxia Assessment/Plan: possible rehab Code(s): R27.0 - ATAXIA, UNSPECIFIED (3) Diabetes Assessment/Plan: insulin sliding scale and bgms Code(s): E11.9 - TYPE 2 DIABETES MELLITUS WITHOUT COMPLICATIONS (4) HTN (hypertension) Code(s): I10 - ESSENTIAL (PRIMARY) HYPERTENSION Qualifiers: Hypertension type: essential hypertension Qualified Code(s): I10 - Essential (primary) hypertension (5) Osteomyelitis Code(s): M86.9 - OSTEOMYELITIS, UNSPECIFIED (6) Schizophrenia Assessment/Plan: continue home meds Code(s): F20.9 - SCHIZOPHRENIA, UNSPECIFIED (7) Anemia Assessment/Plan: need gi work up,,,egd/colonoscopy h/h dropped...s/p blood transfusion fu cbc patient is not able to give informed consent,and has no family GI HAS TO CALL CHANNEL EXECUTIVE AT [facility] TO TAKE INFORMED CONSENT Code(s): D64.9 - ANEMIA, UNSPECIFIED Qualifiers: Anemia type: unspecified type Qualified Code(s): D64.9 - Anemia, unspecified (8) Septic arthritis Assessment/Plan: start abx r/o septic arthritis vs arthritis/gout ortho consult Code(s): M00.9 - PYOGENIC ARTHRITIS, UNSPECIFIED
[2019-02-04] MEDS: RIVAROXABAN 20 MG TABLET PO SCH (17:34)
[2019-02-04] MEDS: VANCOMYCIN HCL 1,250 MG in DEXTROSE 5%-WATER - 250 ML IVPB SCH (17:34)
[2019-02-04] MEDS: BENZTROPINE MESYLATE 0.5 MG TABLET (FP) PO SCH (22:31)
[2019-02-05] MEDS: dilTIAZem HCL 30 MG TABLET (FP) PO SCH ×5 (02:04→23:02)
[2019-02-05] MEDS: ACETAMINOPHEN 325 MG TABLET (FP) PO PRN (05:36)
[2019-02-05] MEDS: INSULIN SLIDING SCALE (NOVOLOG) 1 VIAL SQ SCH ×2 (06:19→18:30)
[2019-02-05] MEDS ORDERED: DEXTROSE 5%-WATER - 50 ML IVPB ONE (08:29)
[2019-02-05] MEDS ORDERED: cefTRIAXone SODIUM 1 GM VIAL ONE (08:29)
--- NOTE | 2019-02-05 09:33 | PN ---
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 Ceron
[2019-02-05] MEDS: CEFTRIAXONE 1 GM in DEXTROSE 5%-WATER - 50 ML IVPB SCH (10:41)
[2019-02-05] MEDS: LISINOPRIL 5 MG TABLET (FP) PO SCH (10:42)
[2019-02-05] MEDS: PANTOPRAZOLE 20 MG TABLET (FP) PO SCH ×2 (10:42→21:00)
[2019-02-05] MEDS: METOPROLOL TARTRATE 50 MG TABLET (FP) PO SCH ×4 (10:42→21:00)
[2019-02-05] MEDS: ARIPiprazole 5 MG TABLET (FP) PO SCH (10:42)
[2019-02-05] MEDS: FUROSEMIDE 20 MG TABLET (FP) PO SCH (10:42)
--- NOTE | 2019-02-05 12:46 | PN ---
Progress Note, Physician - Current Medication List Current Medications: Active Medications Acetaminophen (Tylenol -) 650 mg PO Q6H PRN PRN Reason: FEVER Last Admin: 02/05/19 05:36 Dose: 650 mg Aripiprazole (Abilify) 5 mg PO DAILY [facility] Last Admin: 02/05/19 10:42 Dose: 5 mg Benztropine Mesylate (Cogentin -) 0.5 mg PO HS [facility] Last Admin: 02/04/19 22:31 Dose: 0.5 mg Diltiazem HCl (Cardizem Injection -) 10 mg IVPUSH Q4H PRN PRN Reason: TACHYCARDIA Last Admin: 01/27/19 22:35 Dose: 10 mg Diltiazem HCl (Cardizem -) 30 mg PO Q6HPO [facility] Last Admin: 02/05/19 05:32 Dose: 30 mg Furosemide (Lasix -) 20 mg PO DAILY [facility] Last Admin: 02/05/19 10:42 Dose: 20 mg Ceftriaxone Sodium 1 gm/ (Dextrose) 50 mls @ 100 mls/hr IVPB DAILY [facility]; Protocol Last Admin: 02/05/19 10:41 Dose: 100 mls/hr Vancomycin HCl 1,250 mg/ (Dextrose) 250 mls @ 250 mls/2 hr IVPB Q24H [facility]; Protocol Last Admin: 02/04/19 17:34 Dose: 250 mls/2 hr Insulin Aspart (Novolog Vial Sliding Scale -) 1 vial SQ BIDI [facility]; Protocol Last Admin: 02/05/19 06:19 Dose: 2 units Lisinopril (Prinivil) 2.5 mg PO DAILY [facility] Last Admin: 02/05/19 10:42 Dose: 2.5 mg Metoprolol Tartrate (Lopressor -) 50 mg PO QID [facility] Last Admin: 02/05/19 10:42 Dose: 50 mg Pantoprazole Sodium (Protonix -) 20 mg PO BID [facility] Last Admin: 02/05/19 10:42 Dose: 20 mg Rivaroxaban (Xarelto) 20 mg PO DAILY@1800 [facility] Last Admin: 02/04/19 17:34 Dose: 20 mg - Objective Vital Signs: Vital Signs Temperature 98.3 F 02/05/19 09:40 Pulse Rate 91 H 02/05/19 10:46 Respiratory Rate 22 H 02/05/19 10:46 Blood Pressure 98/62 02/05/19 10:46 O2 Sat by Pulse Oximetry (%) 96 02/05/19 10:30 Constitutional: Yes: No Distress HENT: Yes: Atraumatic Neck: Yes: Supple Cardiovascular: Yes: Regular Rate and Rhythm Respiratory: Yes: CTA Bilaterally Gastrointestinal: Yes: Normal Bowel Sounds Extremities: Yes: Other (R knee swelling..) Neurological: Yes: Alert, Oriented Labs: CBC, BMP 02/03/19 01:30 01/29/19 05:35 Problem List - Problems (1) Afib Code(s): I48.91 - UNSPECIFIED ATRIAL FIBRILLATION Qualifiers: Atrial fibrillation type: persistent (2) Ataxia Code(s): R27.0 - ATAXIA, UNSPECIFIED (3) Diabetes Code(s): E11.9 - TYPE 2 DIABETES MELLITUS WITHOUT COMPLICATIONS (4) HTN (hypertension) Code(s): I10 - ESSENTIAL (PRIMARY) HYPERTENSION Qualifiers: Hypertension type: essential hypertension Qualified Code(s): I10 - Essential (primary) hypertension (5) Osteomyelitis Code(s): M86.9 - OSTEOMYELITIS, UNSPECIFIED (6) Schizophrenia Code(s): F20.9 - SCHIZOPHRENIA, UNSPECIFIED (7) Anemia Code(s): D64.9 - ANEMIA, UNSPECIFIED Qualifiers: Anemia type: unspecified type Qualified Code(s): D64.9 - Anemia, unspecified (8) Septic arthritis Code(s): M00.9 - PYOGENIC ARTHRITIS, UNSPECIFIED
--- NOTE | 2019-02-05 13:55 | PN ---
Progress Note, Physician History of Present Illness: Afib with improved rate-control, asymptomatic and denies chest pain, dyspnea, palpitations. Low grade fevers overnight, right knee effusion recommended for tap. Patient lacks mental capacity to consent for procedures. - Current Medication List Current Medications: Active Medications Acetaminophen (Tylenol -) 650 mg PO Q6H PRN PRN Reason: FEVER Last Admin: 02/05/19 05:36 Dose: 650 mg Aripiprazole (Abilify) 5 mg PO DAILY [facility] Last Admin: 02/05/19 10:42 Dose: 5 mg Benztropine Mesylate (Cogentin -) 0.5 mg PO HS [facility] Last Admin: 02/04/19 22:31 Dose: 0.5 mg Diltiazem HCl (Cardizem Injection -) 10 mg IVPUSH Q4H PRN PRN Reason: TACHYCARDIA Last Admin: 01/27/19 22:35 Dose: 10 mg Diltiazem HCl (Cardizem -) 30 mg PO Q6HPO [facility] Last Admin: 02/05/19 05:32 Dose: 30 mg Furosemide (Lasix -) 20 mg PO DAILY [facility] Last Admin: 02/05/19 10:42 Dose: 20 mg Ceftriaxone Sodium 1 gm/ (Dextrose) 50 mls @ 100 mls/hr IVPB DAILY [facility]; Protocol Last Admin: 02/05/19 10:41 Dose: 100 mls/hr Vancomycin HCl 1,250 mg/ (Dextrose) 250 mls @ 250 mls/2 hr IVPB Q24H [facility]; Protocol Last Admin: 02/04/19 17:34 Dose: 250 mls/2 hr Insulin Aspart (Novolog Vial Sliding Scale -) 1 vial SQ BIDI [facility]; Protocol Last Admin: 02/05/19 06:19 Dose: 2 units Lisinopril (Prinivil) 2.5 mg PO DAILY [facility] Last Admin: 02/05/19 10:42 Dose: 2.5 mg Metoprolol Tartrate (Lopressor -) 50 mg PO QID [facility] Last Admin: 02/05/19 10:42 Dose: 50 mg Pantoprazole Sodium (Protonix -) 20 mg PO BID [facility] Last Admin: 02/05/19 10:42 Dose: 20 mg Rivaroxaban (Xarelto) 20 mg PO DAILY@1800 [facility] Last Admin: 02/04/19 17:34 Dose: 20 mg - Objective Vital Signs: Vital Signs Temperature 98.3 F 02/05/19 09:40 Pulse Rate 91 H 02/05/19 10:46 Respiratory Rate 22 H 02/05/19 10:46 Blood Pressure 98/62 02/05/19 10:46 O2 Sat by Pulse Oximetry (%) 96 02/05/19 10:30 Constitutional: Yes: No Distress, Calm Neck: Yes: Supple Cardiovascular: Yes: Pulse Irregular Respiratory: Yes: Regular, Diminished, On Nasal O2 Gastrointestinal: Yes: Normal Bowel Sounds, Soft Musculoskeletal: Yes: Joint Swelling (Right knee) Edema: No Labs: CBC, BMP 02/03/19 01:30 01/29/19 05:35 - ....Imaging Chest X-ray: Report Reviewed (Right base markings) EKG: Report Reviewed (Tele: Rate-controlled afib) Problem List - Problems (1) Demand ischemia Code(s): I24.8 - OTHER FORMS OF ACUTE ISCHEMIC HEART DISEASE (2) Anemia Code(s): D64.9 - ANEMIA, UNSPECIFIED Qualifiers: Anemia type: unspecified type Qualified Code(s): D64.9 - Anemia, unspecified (3) Diastolic dysfunction Code(s): I51.89 - OTHER ILL-DEFINED HEART DISEASES (4) Afib Code(s): I48.91 - UNSPECIFIED ATRIAL FIBRILLATION Qualifiers: Atrial fibrillation type: persistent (5) HTN (hypertension) Code(s): I10 - ESSENTIAL (PRIMARY) HYPERTENSION Qualifiers: Hypertension type: essential hypertension Qualified Code(s): I10 - Essential (primary) hypertension (6) Schizophrenia Code(s): F20.9 - SCHIZOPHRENIA, UNSPECIFIED (7) Effusion, right knee Code(s): M25.461 - EFFUSION, RIGHT KNEE Assessment/Plan 01/22/2019 Echo: Normal and RV size and fxn LVEF 53%, mild TR RVSP 34 mmHg, tr- mild MR, normal biatrial sizes 1. Persistent AF with improved rate-control, [id number] score of 5 on DOAC 2. CAD with demand ischemia 3. Diastolic dysfunction with clinical class 0 NYHA classification heart failure 4. DM 5. HTN 6. Hypercholesterolemia 7. History of schizophrenia 8. History of osteomyelitis 9. History of CVA 10. Anemia post transfusion 11. Right knee DJD, effusion PLAN: 1. Continue Lopressor at 50 mg four times daily (may switch to Toprol-XL once patient is ready for discharge), hemodynamics permitting 2. Continue Prinivil 2.5 qd, hemodynamics permitting 3. Continue Cardizem at 30 mg four times daily (may switch to Cardizem CD once patient is ready for discharge), hemodynamics permitting 4. Continue Xarelto 20 qd with close monitoring of hemoglobin level, maintain hemoglobin equal or greater than 8.0 5. Continue Lasix 20 qd with close monitoring of diuretic response, renal function and electrolytes 6. Consider knee aspiration to r/o infectious pathology if consent obtainable, f/u ESR, CRP, empiric abx course
[2019-02-05] MEDS ORDERED: PT OWN MED DRAWER 7, Y5N ONE (14:28)
[2019-02-05] MEDS: VANCOMYCIN HCL 1,250 MG in DEXTROSE 5%-WATER - 250 ML IVPB SCH (14:46)
[2019-02-05] MEDS: RIVAROXABAN 20 MG TABLET PO SCH (18:30)
[2019-02-05] MEDS: BENZTROPINE MESYLATE 0.5 MG TABLET (FP) PO SCH (21:00)
[2019-02-06] MEDS: ACETAMINOPHEN 325 MG TABLET (FP) PO PRN (05:26)
[2019-02-06] MEDS: dilTIAZem HCL 30 MG TABLET (FP) PO SCH ×3 (05:26→18:07)
[2019-02-06] MEDS: INSULIN SLIDING SCALE (NOVOLOG) 1 VIAL SQ SCH ×2 (06:03→18:10)
--- NOTE | 2019-02-06 08:37 | PN ---
Progress Note (short form) - Note Progress Note: Ethics There is an ongoing problem Re: consent for medically necessary procedures in a patient considered not to have with medical decision making capacity. There are notes from our clinical coordinator department that the linux systems administrator at [facility] does not have paper work defining her as the patient's agent for medical decisions. If indeed there are no family members or friends that can be contacted (as was also noted in the notes since 2014 from [facility] medical records) it is ethically acceptable for the attending MD and a concurring treating MD to make medical decisions for the patient. If however there are decisions to be made regarding life sustaining treatments then I believe an ethics meeting should be held to get input from all concerned parties. However I would start with a revisit by Psychiatry and a Neurology MD to reassess his medical decision making capacity. If aspiration of a possible infected joint is considered a medical emergency by the Orthopedic and Attending MD's that could result in serious harm for the patient,then that is a procedure that should be performed unless the patient objects even without medical capacity.
--- NOTE | 2019-02-06 09:54 | PN ---
Progress Note, Physician History of Present Illness: Afib with improved rate-control, asymptomatic and denies chest pain, dyspnea, palpitations. Low grade fevers yesterday AM, right knee effusion recommended for tap. Patient lacks mental capacity to consent for procedures. Ethics consult appreciated. - Current Medication List Current Medications: Active Medications Acetaminophen (Tylenol -) 650 mg PO Q6H PRN PRN Reason: FEVER Last Admin: 02/06/19 05:26 Dose: 650 mg Aripiprazole (Abilify) 5 mg PO DAILY [facility] Last Admin: 02/05/19 10:42 Dose: 5 mg Benztropine Mesylate (Cogentin -) 0.5 mg PO HS [facility] Last Admin: 02/05/19 21:00 Dose: 0.5 mg Diltiazem HCl (Cardizem Injection -) 10 mg IVPUSH Q4H PRN PRN Reason: TACHYCARDIA Last Admin: 01/27/19 22:35 Dose: 10 mg Diltiazem HCl (Cardizem -) 30 mg PO Q6HPO [facility] Last Admin: 02/06/19 05:26 Dose: 30 mg Furosemide (Lasix -) 20 mg PO DAILY [facility] Last Admin: 02/05/19 10:42 Dose: 20 mg Ceftriaxone Sodium 1 gm/ (Dextrose) 50 mls @ 100 mls/hr IVPB DAILY [facility]; Protocol Last Admin: 02/05/19 10:41 Dose: 100 mls/hr Vancomycin HCl 1,250 mg/ (Dextrose) 250 mls @ 250 mls/2 hr IVPB Q24H [facility]; Protocol Last Admin: 02/05/19 14:46 Dose: 250 mls/2 hr Insulin Aspart (Novolog Vial Sliding Scale -) 1 vial SQ BIDI [facility]; Protocol Last Admin: 02/06/19 06:03 Dose: 2 units Lisinopril (Prinivil) 2.5 mg PO DAILY [facility] Last Admin: 02/05/19 10:42 Dose: 2.5 mg Metoprolol Tartrate (Lopressor -) 50 mg PO QID [facility] Last Admin: 02/05/19 21:00 Dose: 50 mg Pantoprazole Sodium (Protonix -) 20 mg PO BID [facility] Last Admin: 02/05/19 21:00 Dose: 20 mg Rivaroxaban (Xarelto) 20 mg PO DAILY@1800 [facility] Last Admin: 02/05/19 18:30 Dose: 20 mg - Objective Vital Signs: Vital Signs Temperature 99.1 F 02/05/19 22:00 Pulse Rate 82 02/06/19 06:00 Respiratory Rate 18 02/06/19 06:00 Blood Pressure 97/63 02/06/19 06:00 O2 Sat by Pulse Oximetry (%) 95 02/05/19 21:00 Constitutional: Yes: No Distress, Calm Neck: Yes: Supple Cardiovascular: Yes: Tachycardia, Pulse Irregular Respiratory: Yes: Regular, Diminished Gastrointestinal: Yes: Normal Bowel Sounds, Soft Edema: No Labs: CBC, BMP 02/03/19 01:30 01/29/19 05:35 - ....Imaging EKG: Report Reviewed (Tele: Afib) Problem List - Problems (1) Demand ischemia Code(s): I24.8 - OTHER FORMS OF ACUTE ISCHEMIC HEART DISEASE (2) Anemia Code(s): D64.9 - ANEMIA, UNSPECIFIED Qualifiers: Anemia type: unspecified type Qualified Code(s): D64.9 - Anemia, unspecified (3) Diastolic dysfunction Code(s): I51.89 - OTHER ILL-DEFINED HEART DISEASES (4) Afib Code(s): I48.91 - UNSPECIFIED ATRIAL FIBRILLATION Qualifiers: Atrial fibrillation type: persistent (5) HTN (hypertension) Code(s): I10 - ESSENTIAL (PRIMARY) HYPERTENSION Qualifiers: Hypertension type: essential hypertension Qualified Code(s): I10 - Essential (primary) hypertension (6) Schizophrenia Code(s): F20.9 - SCHIZOPHRENIA, UNSPECIFIED (7) Effusion, right knee Code(s): M25.461 - EFFUSION, RIGHT KNEE Assessment/Plan 01/22/2019 Echo: Normal and RV size and fxn LVEF 53%, mild TR RVSP 34 mmHg, tr- mild MR, normal biatrial sizes 1. Persistent AF with improved rate-control, [id number] score of 5 on DOAC 2. CAD with demand ischemia 3. Diastolic dysfunction with clinical class 0 NYHA classification heart failure 4. DM 5. HTN 6. Hypercholesterolemia 7. History of schizophrenia 8. History of osteomyelitis 9. History of CVA 10. Anemia post transfusion 11. Right knee DJD, effusion r/o septic joint PLAN: 1. Continue Lopressor at 50 mg four times daily (may switch to Toprol-XL once patient is ready for discharge), hemodynamics permitting 2. Continue Prinivil 2.5 qd, hemodynamics permitting 3. Continue Cardizem at 30 mg four times daily (may switch to Cardizem CD once patient is ready for discharge), hemodynamics permitting 4. Continue Xarelto 20 qd with close monitoring of hemoglobin level, maintain hemoglobin equal or greater than 8.0 5. Continue Lasix 20 qd with close monitoring of diuretic response, renal function and electrolytes 6. Consider knee aspiration to r/o infectious pathology if consent obtainable, acknowledged elevated ESR, CRP levels, continue empiric abx course
[2019-02-06] MEDS ORDERED: cefTRIAXone SODIUM 1 GM VIAL ONE (10:09)
[2019-02-06] MEDS ORDERED: DEXTROSE 5%-WATER - 50 ML IVPB ONE (10:09)
[2019-02-06] MEDS: PANTOPRAZOLE 20 MG TABLET (FP) PO SCH ×2 (10:47→21:11)
[2019-02-06] MEDS: LISINOPRIL 5 MG TABLET (FP) PO SCH (10:47)
[2019-02-06] MEDS: ARIPiprazole 5 MG TABLET (FP) PO SCH (10:47)
[2019-02-06] MEDS: FUROSEMIDE 20 MG TABLET (FP) PO SCH (10:47)
[2019-02-06] MEDS: CEFTRIAXONE 1 GM in DEXTROSE 5%-WATER - 50 ML IVPB SCH (10:47)
[2019-02-06] MEDS: METOPROLOL TARTRATE 50 MG TABLET (FP) PO SCH ×4 (10:52→21:10)
[2019-02-06] MEDS: VANCOMYCIN HCL 1,250 MG in DEXTROSE 5%-WATER - 250 ML IVPB SCH (12:53)
--- NOTE | 2019-02-06 14:54 | PN ---
Progress Note, Physician History of Present Illness: patient still in discomfort no new issues - Current Medication List Current Medications: Active Medications Acetaminophen (Tylenol -) 650 mg PO Q6H PRN PRN Reason: FEVER Last Admin: 02/06/19 05:26 Dose: 650 mg Aripiprazole (Abilify) 5 mg PO DAILY [facility] Last Admin: 02/06/19 10:47 Dose: 5 mg Benztropine Mesylate (Cogentin -) 0.5 mg PO HS [facility] Last Admin: 02/05/19 21:00 Dose: 0.5 mg Diltiazem HCl (Cardizem Injection -) 10 mg IVPUSH Q4H PRN PRN Reason: TACHYCARDIA Last Admin: 01/27/19 22:35 Dose: 10 mg Diltiazem HCl (Cardizem -) 30 mg PO Q6HPO [facility] Last Admin: 02/06/19 12:54 Dose: 30 mg Furosemide (Lasix -) 20 mg PO DAILY [facility] Last Admin: 02/06/19 10:47 Dose: 20 mg Ceftriaxone Sodium 1 gm/ (Dextrose) 50 mls @ 100 mls/hr IVPB DAILY [facility]; Protocol Last Admin: 02/06/19 10:47 Dose: 100 mls/hr Vancomycin HCl 1,250 mg/ (Dextrose) 250 mls @ 250 mls/2 hr IVPB Q24H [facility]; Protocol Last Admin: 02/06/19 12:53 Dose: 250 mls/2 hr Insulin Aspart (Novolog Vial Sliding Scale -) 1 vial SQ BIDI [facility]; Protocol Last Admin: 02/06/19 06:03 Dose: 2 units Lisinopril (Prinivil) 2.5 mg PO DAILY [facility] Last Admin: 02/06/19 10:47 Dose: 2.5 mg Metoprolol Tartrate (Lopressor -) 50 mg PO QID [facility] Last Admin: 02/06/19 14:13 Dose: 50 mg Pantoprazole Sodium (Protonix -) 20 mg PO BID [facility] Last Admin: 02/06/19 10:47 Dose: 20 mg Rivaroxaban (Xarelto) 20 mg PO DAILY@1800 [facility] Last Admin: 02/05/19 18:30 Dose: 20 mg - Objective Vital Signs: Vital Signs Temperature 98.4 F 02/06/19 13:52 Pulse Rate 96 H 02/06/19 13:52 Respiratory Rate 18 02/06/19 13:52 Blood Pressure 93/62 02/06/19 13:52 O2 Sat by Pulse Oximetry (%) 95 02/05/19 21:00 Constitutional: Yes: Calm, Mild Distress Cardiovascular: Yes: Pulse Irregular, S1, S2 Respiratory: Yes: Regular, CTA Bilaterally Gastrointestinal: Yes: Normal Bowel Sounds, Soft Musculoskeletal: Yes: WNL Extremities: Yes: Other (swelling of the knee joint) Neurological: Yes: Alert Labs: CBC, BMP 02/03/19 01:30 01/29/19 05:35 Assessment/Plan Problem List - Problems (1) Afib Code(s): I48.91 - UNSPECIFIED ATRIAL FIBRILLATION Qualifiers: Atrial fibrillation type: chronic Qualified Code(s): I48.2 - Chronic atrial fibrillation (2) Ataxia Code(s): R27.0 - ATAXIA, UNSPECIFIED (3) Diabetes Code(s): E11.9 - TYPE 2 DIABETES MELLITUS WITHOUT COMPLICATIONS (4) HTN (hypertension) Code(s): I10 - ESSENTIAL (PRIMARY) HYPERTENSION (5) Osteomyelitis Code(s): M86.9 - OSTEOMYELITIS, UNSPECIFIED (6) Schizophrenia Code(s): F20.9 - SCHIZOPHRENIA, UNSPECIFIED plan continue vanco and ceftriaxone await for tapping rest as per the team
--- NOTE | 2019-02-06 15:03 | PN ---
Progress Note, Physician - Current Medication List Current Medications: Active Medications Acetaminophen (Tylenol -) 650 mg PO Q6H PRN PRN Reason: FEVER Last Admin: 02/06/19 05:26 Dose: 650 mg Aripiprazole (Abilify) 5 mg PO DAILY [facility] Last Admin: 02/06/19 10:47 Dose: 5 mg Benztropine Mesylate (Cogentin -) 0.5 mg PO HS [facility] Last Admin: 02/05/19 21:00 Dose: 0.5 mg Diltiazem HCl (Cardizem Injection -) 10 mg IVPUSH Q4H PRN PRN Reason: TACHYCARDIA Last Admin: 01/27/19 22:35 Dose: 10 mg Diltiazem HCl (Cardizem -) 30 mg PO Q6HPO [facility] Last Admin: 02/06/19 12:54 Dose: 30 mg Furosemide (Lasix -) 20 mg PO DAILY [facility] Last Admin: 02/06/19 10:47 Dose: 20 mg Ceftriaxone Sodium 1 gm/ (Dextrose) 50 mls @ 100 mls/hr IVPB DAILY [facility]; Protocol Last Admin: 02/06/19 10:47 Dose: 100 mls/hr Vancomycin HCl 1,250 mg/ (Dextrose) 250 mls @ 250 mls/2 hr IVPB Q24H [facility]; Protocol Last Admin: 02/06/19 12:53 Dose: 250 mls/2 hr Insulin Aspart (Novolog Vial Sliding Scale -) 1 vial SQ BIDI [facility]; Protocol Last Admin: 02/06/19 06:03 Dose: 2 units Lisinopril (Prinivil) 2.5 mg PO DAILY [facility] Last Admin: 02/06/19 10:47 Dose: 2.5 mg Metoprolol Tartrate (Lopressor -) 50 mg PO QID [facility] Last Admin: 02/06/19 14:13 Dose: 50 mg Pantoprazole Sodium (Protonix -) 20 mg PO BID [facility] Last Admin: 02/06/19 10:47 Dose: 20 mg Rivaroxaban (Xarelto) 20 mg PO DAILY@1800 [facility] Last Admin: 02/05/19 18:30 Dose: 20 mg - Objective Vital Signs: Vital Signs Temperature 98.4 F 02/06/19 13:52 Pulse Rate 96 H 02/06/19 13:52 Respiratory Rate 18 02/06/19 13:52 Blood Pressure 93/62 02/06/19 13:52 O2 Sat by Pulse Oximetry (%) 95 02/05/19 21:00 Constitutional: Yes: Calm HENT: Yes: Atraumatic Neck: Yes: Supple Cardiovascular: Yes: Regular Rate and Rhythm Respiratory: Yes: CTA Bilaterally Gastrointestinal: Yes: Normal Bowel Sounds Extremities: Yes: Other (R knee swelling better) Neurological: Yes: Alert Labs: CBC, BMP 02/03/19 01:30 01/29/19 05:35 Problem List - Problems (1) Afib Assessment/Plan: on meds stable Code(s): I48.91 - UNSPECIFIED ATRIAL FIBRILLATION Qualifiers: Atrial fibrillation type: persistent (2) Ataxia Assessment/Plan: possible rehab Code(s): R27.0 - ATAXIA, UNSPECIFIED (3) Diabetes Assessment/Plan: insulin sliding scale and bgms Code(s): E11.9 - TYPE 2 DIABETES MELLITUS WITHOUT COMPLICATIONS (4) HTN (hypertension) Code(s): I10 - ESSENTIAL (PRIMARY) HYPERTENSION Qualifiers: Hypertension type: essential hypertension Qualified Code(s): I10 - Essential (primary) hypertension (5) Osteomyelitis Code(s): M86.9 - OSTEOMYELITIS, UNSPECIFIED (6) Schizophrenia Assessment/Plan: continue home meds Code(s): F20.9 - SCHIZOPHRENIA, UNSPECIFIED (7) Anemia Assessment/Plan: need gi work up,,,egd/colonoscopy h/h dropped...s/p blood transfusion fu cbc patient is not able to give informed consent,and has no family GI HAS TO CALL ORTHOPTIST AT [facility] TO TAKE INFORMED CONSENT Code(s): D64.9 - ANEMIA, UNSPECIFIED Qualifiers: Anemia type: unspecified type Qualified Code(s): D64.9 - Anemia, unspecified (8) Septic arthritis Code(s): M00.9 - PYOGENIC ARTHRITIS, UNSPECIFIED Assessment/Plan PATIENT CAN GO FOR KNEE ASPIRATION REVIEWED DR RODAS CONSULT
[2019-02-06] MEDS: RIVAROXABAN 20 MG TABLET PO SCH (18:07)
[2019-02-06] MEDS: BENZTROPINE MESYLATE 0.5 MG TABLET (FP) PO SCH (21:10)
[2019-02-07] MEDS: dilTIAZem HCL 30 MG TABLET (FP) PO SCH ×4 (00:25→17:19)
[2019-02-07] MEDS: INSULIN SLIDING SCALE (NOVOLOG) 1 VIAL SQ SCH ×2 (06:56→17:18)
[2019-02-07 07:06] LABS: BASO % 0.3 % (0-2.0); EOS % 1.7 % (0-4.5); HEMOGLOBIN 7.7 GM/dL (11.7-16.9); LYMPH % 8.8 % (8-40); MCH 23.1 pg (25.7-33.7); MCHC 32.2 g/dl (32.0-35.9); MEAN CELL VOLUME 71.7 fl (80-96); MEAN PLT VOLUME 7.5 fl (7.5-11.1); NEUT % 83.2 % (42.8-82.8); PLATELET COUNT 366 K/MM3 (134-434); RBC 3.34 M/mm3 (4.00-5.60); WHITE BLOOD COUNT 9.5 K/mm3 (4.0-10.0)
[2019-02-07 07:37] LABS: ALBUMIN 1.7 g/dl (3.4-5.0); BILIRUBIN,TOTAL 0.6 mg/dL (0.2-1); BLOOD UREA NITROGEN 16.3 mg/dL (7-18); CALCIUM 8.1 mg/dL (8.5-10.1); CREATININE 0.5 mg/dL (0.55-1.3); POTASSIUM 4.3 mmol/L (3.5-5.1); TOT PROT 6.4 g/dl (6.4-8.2)
[2019-02-07] MEDS ORDERED: cefTRIAXone SODIUM 1 GM VIAL ONE (09:14)
[2019-02-07] MEDS ORDERED: DEXTROSE 5%-WATER - 50 ML IVPB ONE (09:14)
[2019-02-07] MEDS: PANTOPRAZOLE 20 MG TABLET (FP) PO SCH ×2 (10:15→21:29)
[2019-02-07] MEDS: ARIPiprazole 5 MG TABLET (FP) PO SCH (10:15)
[2019-02-07] MEDS: LISINOPRIL 5 MG TABLET (FP) PO SCH (10:15)
[2019-02-07] MEDS: FUROSEMIDE 20 MG TABLET (FP) PO SCH (10:15)
[2019-02-07] MEDS: METOPROLOL TARTRATE 50 MG TABLET (FP) PO SCH ×4 (10:15→21:29)
[2019-02-07] MEDS: CEFTRIAXONE 1 GM in DEXTROSE 5%-WATER - 50 ML IVPB SCH (10:17)
--- NOTE | 2019-02-07 10:43 | PN ---
Progress Note, Physician History of Present Illness: Afib with improved rate-control, asymptomatic and denies chest pain, dyspnea, palpitations. Afebrile, right knee effusion recommended for tap. Patient lacks mental capacity to consent for procedures. - Current Medication List Current Medications: Active Medications Acetaminophen (Tylenol -) 650 mg PO Q6H PRN PRN Reason: FEVER Last Admin: 02/06/19 05:26 Dose: 650 mg Aripiprazole (Abilify) 5 mg PO DAILY [facility] Last Admin: 02/07/19 10:15 Dose: 5 mg Benztropine Mesylate (Cogentin -) 0.5 mg PO HS [facility] Last Admin: 02/06/19 21:10 Dose: 0.5 mg Diltiazem HCl (Cardizem Injection -) 10 mg IVPUSH Q4H PRN PRN Reason: TACHYCARDIA Last Admin: 01/27/19 22:35 Dose: 10 mg Diltiazem HCl (Cardizem -) 30 mg PO Q6HPO [facility] Last Admin: 02/07/19 06:07 Dose: 30 mg Furosemide (Lasix -) 20 mg PO DAILY [facility] Last Admin: 02/07/19 10:15 Dose: 20 mg Ceftriaxone Sodium 1 gm/ (Dextrose) 50 mls @ 100 mls/hr IVPB DAILY [facility]; Protocol Last Admin: 02/07/19 10:17 Dose: 100 mls/hr Vancomycin HCl 1,250 mg/ (Dextrose) 250 mls @ 250 mls/2 hr IVPB Q24H [facility]; Protocol Last Admin: 02/06/19 12:53 Dose: 250 mls/2 hr Insulin Aspart (Novolog Vial Sliding Scale -) 1 vial SQ BIDI [facility]; Protocol Last Admin: 02/07/19 06:56 Dose: 2 units Lisinopril (Prinivil) 2.5 mg PO DAILY [facility] Last Admin: 02/07/19 10:15 Dose: 2.5 mg Metoprolol Tartrate (Lopressor -) 50 mg PO QID [facility] Last Admin: 02/07/19 10:15 Dose: 50 mg Pantoprazole Sodium (Protonix -) 20 mg PO BID [facility] Last Admin: 02/07/19 10:15 Dose: 20 mg Rivaroxaban (Xarelto) 20 mg PO DAILY@1800 [facility] Last Admin: 02/06/19 18:07 Dose: 20 mg - Objective Vital Signs: Vital Signs Temperature 98.6 F 02/07/19 06:00 Pulse Rate 84 02/07/19 08:00 Respiratory Rate 18 02/07/19 09:00 Blood Pressure 94/71 02/07/19 08:00 O2 Sat by Pulse Oximetry (%) 98 02/07/19 09:00 Constitutional: Yes: No Distress, Calm Neck: Yes: Supple Cardiovascular: Yes: Pulse Irregular Respiratory: Yes: Regular, Diminished Gastrointestinal: Yes: Normal Bowel Sounds, Soft Edema: No Labs: CBC, BMP 02/07/19 05:45 02/07/19 05:45 - ....Imaging EKG: Report Reviewed (Tele: Rate-controlled afib) Problem List - Problems (1) Demand ischemia Code(s): I24.8 - OTHER FORMS OF ACUTE ISCHEMIC HEART DISEASE (2) Anemia Code(s): D64.9 - ANEMIA, UNSPECIFIED Qualifiers: Anemia type: unspecified type Qualified Code(s): D64.9 - Anemia, unspecified (3) Diastolic dysfunction Code(s): I51.89 - OTHER ILL-DEFINED HEART DISEASES (4) Afib Code(s): I48.91 - UNSPECIFIED ATRIAL FIBRILLATION Qualifiers: Atrial fibrillation type: persistent (5) HTN (hypertension) Code(s): I10 - ESSENTIAL (PRIMARY) HYPERTENSION Qualifiers: Hypertension type: essential hypertension Qualified Code(s): I10 - Essential (primary) hypertension (6) Schizophrenia Code(s): F20.9 - SCHIZOPHRENIA, UNSPECIFIED (7) Effusion, right knee Code(s): M25.461 - EFFUSION, RIGHT KNEE Assessment/Plan 01/22/2019 Echo: Normal and RV size and fxn LVEF 53%, mild TR RVSP 34 mmHg, tr- mild MR, normal biatrial sizes 1. Persistent AF with improved rate-control, [id number] score of 5 on DOAC 2. CAD with demand ischemia 3. Diastolic dysfunction with clinical class 0 NYHA classification heart failure 4. DM 5. HTN 6. Hypercholesterolemia 7. History of schizophrenia 8. History of osteomyelitis 9. History of CVA 10. Anemia post transfusion 11. Right knee DJD, effusion r/o septic joint PLAN: 1. Continue Lopressor at 50 mg four times daily (may switch to Toprol-XL once patient is ready for discharge), hemodynamics permitting 2. Continue Prinivil 2.5 qd, hemodynamics permitting 3. Continue Cardizem at 30 mg four times daily (may switch to Cardizem CD once patient is ready for discharge), hemodynamics permitting 4. Continue Xarelto 20 qd with close monitoring of hemoglobin level, maintain hemoglobin equal or greater than 8.0 5. Continue Lasix 20 qd with close monitoring of diuretic response, renal function and electrolytes 6. Consider knee aspiration to r/o infectious pathology if consent obtainable, acknowledged elevated ESR, CRP levels, continue empiric abx course
[2019-02-07] MEDS: VANCOMYCIN HCL 1,250 MG in DEXTROSE 5%-WATER - 250 ML IVPB SCH (13:15)
--- NOTE | 2019-02-07 13:30 | PN ---
Progress Note, Physician History of Present Illness: right knee effusion recommended for tap. Patient lacks mental capacity to consent for procedures. afib - Current Medication List Current Medications: Active Medications Acetaminophen (Tylenol -) 650 mg PO Q6H PRN PRN Reason: FEVER Last Admin: 02/06/19 05:26 Dose: 650 mg Aripiprazole (Abilify) 5 mg PO DAILY [facility] Last Admin: 02/07/19 10:15 Dose: 5 mg Benztropine Mesylate (Cogentin -) 0.5 mg PO HS [facility] Last Admin: 02/06/19 21:10 Dose: 0.5 mg Diltiazem HCl (Cardizem Injection -) 10 mg IVPUSH Q4H PRN PRN Reason: TACHYCARDIA Last Admin: 01/27/19 22:35 Dose: 10 mg Diltiazem HCl (Cardizem -) 30 mg PO Q6HPO [facility] Last Admin: 02/07/19 06:07 Dose: 30 mg Furosemide (Lasix -) 20 mg PO DAILY [facility] Last Admin: 02/07/19 10:15 Dose: 20 mg Ceftriaxone Sodium 1 gm/ (Dextrose) 50 mls @ 100 mls/hr IVPB DAILY [facility]; Protocol Last Admin: 02/07/19 10:17 Dose: 100 mls/hr Vancomycin HCl 1,250 mg/ (Dextrose) 250 mls @ 250 mls/2 hr IVPB Q24H [facility]; Protocol Last Admin: 02/06/19 12:53 Dose: 250 mls/2 hr Insulin Aspart (Novolog Vial Sliding Scale -) 1 vial SQ BIDI [facility]; Protocol Last Admin: 02/07/19 06:56 Dose: 2 units Lisinopril (Prinivil) 2.5 mg PO DAILY [facility] Last Admin: 02/07/19 10:15 Dose: 2.5 mg Metoprolol Tartrate (Lopressor -) 50 mg PO QID [facility] Last Admin: 02/07/19 10:15 Dose: 50 mg Pantoprazole Sodium (Protonix -) 20 mg PO BID [facility] Last Admin: 02/07/19 10:15 Dose: 20 mg Rivaroxaban (Xarelto) 20 mg PO DAILY@1800 [facility] Last Admin: 02/06/19 18:07 Dose: 20 mg - Objective Vital Signs: Vital Signs Temperature 98.6 F 02/07/19 06:00 Pulse Rate 90 02/07/19 12:00 Respiratory Rate 18 02/07/19 12:00 Blood Pressure 93/67 02/07/19 12:00 O2 Sat by Pulse Oximetry (%) 98 02/07/19 09:00 Constitutional: Yes: No Distress, Calm Cardiovascular: Yes: Pulse Irregular Respiratory: Yes: Regular, CTA Bilaterally Gastrointestinal: Yes: Normal Bowel Sounds, Soft Musculoskeletal: Yes: WNL Extremities: Yes: Other (knee swollen) Neurological: Yes: Alert Psychiatric: Yes: Alert, Other Labs: CBC, BMP 02/07/19 05:45 02/07/19 05:45 Assessment/Plan Assessment/Plan Problem List - Problems (1) Afib Code(s): I48.91 - UNSPECIFIED ATRIAL FIBRILLATION Qualifiers: Atrial fibrillation type: chronic Qualified Code(s): I48.2 - Chronic atrial fibrillation (2) Ataxia Code(s): R27.0 - ATAXIA, UNSPECIFIED (3) Diabetes Code(s): E11.9 - TYPE 2 DIABETES MELLITUS WITHOUT COMPLICATIONS (4) HTN (hypertension) Code(s): I10 - ESSENTIAL (PRIMARY) HYPERTENSION (5) Osteomyelitis Code(s): M86.9 - OSTEOMYELITIS, UNSPECIFIED (6) Schizophrenia Code(s): F20.9 - SCHIZOPHRENIA, UNSPECIFIED plan continue current mgmt monitor heart rate rest as per the team knee tap
[2019-02-07 13:44] LABS: ANISOCYTOSIS 1+; MACROCYTOSIS 0; OVALOCYTE 1+; PLATELET ESTIMATE NORMAL; TARGET CELLS 1+; TEAR DROP CELLS 1+
--- NOTE | 2019-02-07 14:00 | PN ---
Progress Note (short form) - Note Progress Note: Asked by Nurse to comment on whether or not Mr. Theodore needs endoscopic evaluation. I spoke with Mr. Theodore again. explained that he is anemic and to exclude GI sources of blood loss such as colon cancer, upper endoscopy and colonoscopy could be performed. I discussed potential risks of the procedures like but not limited to bleeding, perforation requiring surgery to repair, infection, sedation medication effects all of which could be potentially life threatening. He did not agree to the procedures. i asked that he think about these options. he says that he spoke his peace and does not want to have them performed. While colonoscopy and possible endoscopy are indicated in this situation and Mr. Theodore has been deemed to not have decision making capacity, he still refuses. Please recall GI if Mr. Theodore is willing to undergo endoscopic evaluation. If so, clarification of who decisoin maker will be needs to be clarified as well. Problem List - Problems (1) Anemia Code(s): D64.9 - ANEMIA, UNSPECIFIED Qualifiers: Anemia type: unspecified type Qualified Code(s): D64.9 - Anemia, unspecified
--- NOTE | 2019-02-07 14:56 | PN ---
Progress Note (short form) - Note Progress Note: Ortho Pt seen and examined- consent obtained from medical drs Selected Entries 02/07/19 02/07/19 06:00 12:00 Temperature 98.6 F Pulse Rate 90 Respiratory 18 Rate Blood Pressure 93/67 Laboratory Tests 02/07/19 05:45 WBC 9.5 Hgb 7.7 L Hct 24.0 L Plt Count 366 D 2+ effusion, no erythema, + ttp, rom 5- 70, calf soft nt, nvi a/p- Under sterile technique the right knee was aspirated, 20 cc of cloudy fluid was obtained, sent to lab, procedure tolerated well continue IV abx PT, wbat will f/u with lab results d/w Dr. Ceron
[2019-02-07] MEDS ORDERED: PT OWN MED DRAWER 7, Y5N ONE (15:21)
[2019-02-07] MEDS: RIVAROXABAN 20 MG TABLET PO SCH (17:19)
--- NOTE | 2019-02-07 17:39 | PN ---
Progress Note, Physician History of Present Illness: s/p R KNEE ASPIRATION - Current Medication List Current Medications: Active Medications Acetaminophen (Tylenol -) 650 mg PO Q6H PRN PRN Reason: FEVER Last Admin: 02/06/19 05:26 Dose: 650 mg Aripiprazole (Abilify) 5 mg PO DAILY [facility] Last Admin: 02/07/19 10:15 Dose: 5 mg Benztropine Mesylate (Cogentin -) 0.5 mg PO HS [facility] Last Admin: 02/06/19 21:10 Dose: 0.5 mg Diltiazem HCl (Cardizem Injection -) 10 mg IVPUSH Q4H PRN PRN Reason: TACHYCARDIA Last Admin: 01/27/19 22:35 Dose: 10 mg Diltiazem HCl (Cardizem -) 30 mg PO Q6HPO [facility] Last Admin: 02/07/19 17:19 Dose: 30 mg Furosemide (Lasix -) 20 mg PO DAILY [facility] Last Admin: 02/07/19 10:15 Dose: 20 mg Ceftriaxone Sodium 1 gm/ (Dextrose) 50 mls @ 100 mls/hr IVPB DAILY [facility]; Protocol Last Admin: 02/07/19 10:17 Dose: 100 mls/hr Vancomycin HCl 1,250 mg/ (Dextrose) 250 mls @ 250 mls/2 hr IVPB Q24H [facility]; Protocol Last Admin: 02/07/19 13:15 Dose: 250 mls/2 hr Insulin Aspart (Novolog Vial Sliding Scale -) 1 vial SQ BIDI [facility]; Protocol Last Admin: 02/07/19 17:18 Dose: 4 units Lisinopril (Prinivil) 2.5 mg PO DAILY [facility] Last Admin: 02/07/19 10:15 Dose: 2.5 mg Metoprolol Tartrate (Lopressor -) 50 mg PO QID [facility] Last Admin: 02/07/19 17:18 Dose: 50 mg Pantoprazole Sodium (Protonix -) 20 mg PO BID [facility] Last Admin: 02/07/19 10:15 Dose: 20 mg Rivaroxaban (Xarelto) 20 mg PO DAILY@1800 [facility] Last Admin: 02/07/19 17:19 Dose: 20 mg - Objective Vital Signs: Vital Signs Temperature 98.3 F 02/07/19 15:00 Pulse Rate 90 02/07/19 12:00 Respiratory Rate 18 02/07/19 12:00 Blood Pressure 93/67 02/07/19 12:00 O2 Sat by Pulse Oximetry (%) 98 02/07/19 09:00 Constitutional: Yes: No Distress HENT: Yes: Atraumatic Neck: Yes: Supple Cardiovascular: Yes: Regular Rate and Rhythm Respiratory: Yes: CTA Bilaterally Gastrointestinal: Yes: Normal Bowel Sounds Extremities: Yes: WNL Edema: No Neurological: Yes: Alert, Oriented Labs: CBC, BMP 02/07/19 05:45 02/07/19 05:45 Problem List - Problems (1) Afib Assessment/Plan: on meds stable Code(s): I48.91 - UNSPECIFIED ATRIAL FIBRILLATION Qualifiers: Atrial fibrillation type: persistent (2) Ataxia Assessment/Plan: possible rehab Code(s): R27.0 - ATAXIA, UNSPECIFIED (3) Diabetes Assessment/Plan: insulin sliding scale and bgms Code(s): E11.9 - TYPE 2 DIABETES MELLITUS WITHOUT COMPLICATIONS (4) HTN (hypertension) Code(s): I10 - ESSENTIAL (PRIMARY) HYPERTENSION Qualifiers: Hypertension type: essential hypertension Qualified Code(s): I10 - Essential (primary) hypertension (5) Osteomyelitis Code(s): M86.9 - OSTEOMYELITIS, UNSPECIFIED (6) Schizophrenia Assessment/Plan: continue home meds Code(s): F20.9 - SCHIZOPHRENIA, UNSPECIFIED (7) Anemia Assessment/Plan: gi note reviewed, apparently patient is refusing procedure although psych said he cannot make informed decision/lacks capacity, as per dr alba patient can still refuse procedure . Code(s): D64.9 - ANEMIA, UNSPECIFIED Qualifiers: Anemia type: unspecified type Qualified Code(s): D64.9 - Anemia, unspecified (8) Septic arthritis Code(s): M00.9 - PYOGENIC ARTHRITIS, UNSPECIFIED
[2019-02-07 18:55] LABS: SYNOVIAL FLUID SOURCE SYNOVIAL
[2019-02-07 18:57] LABS: SYNOVIAL FLUID RBC 3687 /mm3
[2019-02-07 19:18] LABS: SYNOVIAL FLUID LYMPHOCYTES 5 %; SYNOVIAL FLUID NEUTROPHILS 95 %
[2019-02-07 19:31] LABS: CRYSTALS,SYNOVIAL FLUID NEGATIVE
[2019-02-07] MEDS: BENZTROPINE MESYLATE 0.5 MG TABLET (FP) PO SCH (21:29)
[2019-02-08] MEDS: dilTIAZem HCL 30 MG TABLET (FP) PO SCH ×5 (00:52→23:33)
[2019-02-08] MEDS: INSULIN SLIDING SCALE (NOVOLOG) 1 VIAL SQ SCH ×2 (07:00→17:43)
[2019-02-08] MEDS ORDERED: cefTRIAXone SODIUM 1 GM VIAL ONE (11:37)
[2019-02-08] MEDS ORDERED: DEXTROSE 5%-WATER - 50 ML IVPB ONE (11:37)
[2019-02-08] MEDS: ARIPiprazole 5 MG TABLET (FP) PO SCH (11:48)
[2019-02-08] MEDS: FUROSEMIDE 20 MG TABLET (FP) PO SCH (11:48)
[2019-02-08] MEDS: PANTOPRAZOLE 20 MG TABLET (FP) PO SCH ×2 (11:48→22:22)
[2019-02-08] MEDS: CEFTRIAXONE 1 GM in DEXTROSE 5%-WATER - 50 ML IVPB SCH (11:48)
[2019-02-08] MEDS: METOPROLOL TARTRATE 50 MG TABLET (FP) PO SCH ×4 (11:48→22:22)
[2019-02-08] MEDS: LISINOPRIL 5 MG TABLET (FP) PO SCH (11:48)
--- NOTE | 2019-02-08 12:46 | PN ---
Progress Note, Physician History of Present Illness: doing well - Current Medication List Current Medications: Active Medications Acetaminophen (Tylenol -) 650 mg PO Q6H PRN PRN Reason: FEVER Last Admin: 02/06/19 05:26 Dose: 650 mg Aripiprazole (Abilify) 5 mg PO DAILY [facility] Last Admin: 02/08/19 11:48 Dose: 5 mg Benztropine Mesylate (Cogentin -) 0.5 mg PO HS [facility] Last Admin: 02/07/19 21:29 Dose: 0.5 mg Diltiazem HCl (Cardizem Injection -) 10 mg IVPUSH Q4H PRN PRN Reason: TACHYCARDIA Last Admin: 01/27/19 22:35 Dose: 10 mg Diltiazem HCl (Cardizem -) 30 mg PO Q6HPO [facility] Last Admin: 02/08/19 11:48 Dose: 30 mg Furosemide (Lasix -) 20 mg PO DAILY [facility] Last Admin: 02/08/19 11:48 Dose: 20 mg Ceftriaxone Sodium 1 gm/ (Dextrose) 50 mls @ 100 mls/hr IVPB DAILY [facility]; Protocol Last Admin: 02/08/19 11:48 Dose: 100 mls/hr Vancomycin HCl 1,250 mg/ (Dextrose) 250 mls @ 250 mls/2 hr IVPB Q24H [facility]; Protocol Last Admin: 02/07/19 13:15 Dose: 250 mls/2 hr Insulin Aspart (Novolog Vial Sliding Scale -) 1 vial SQ BIDI [facility]; Protocol Last Admin: 02/08/19 07:00 Dose: 2 units Lisinopril (Prinivil) 2.5 mg PO DAILY [facility] Last Admin: 02/08/19 11:48 Dose: 2.5 mg Metoprolol Tartrate (Lopressor -) 50 mg PO QID [facility] Last Admin: 02/08/19 11:48 Dose: 50 mg Pantoprazole Sodium (Protonix -) 20 mg PO BID [facility] Last Admin: 02/08/19 11:48 Dose: 20 mg Rivaroxaban (Xarelto) 20 mg PO DAILY@1800 [facility] Last Admin: 02/07/19 17:19 Dose: 20 mg - Objective Vital Signs: Vital Signs Temperature 97.9 F 02/08/19 10:00 Pulse Rate 92 H 02/08/19 10:00 Respiratory Rate 18 02/08/19 10:00 Blood Pressure 99/66 02/08/19 10:00 O2 Sat by Pulse Oximetry (%) 98 02/07/19 20:09 Constitutional: Yes: No Distress HENT: Yes: Atraumatic Neck: Yes: Supple Cardiovascular: Yes: Regular Rate and Rhythm Respiratory: Yes: CTA Bilaterally Extremities: Yes: WNL Neurological: Yes: Alert, Oriented Labs: CBC, BMP 02/07/19 05:45 02/07/19 05:45 Problem List - Problems (1) Afib Assessment/Plan: on meds stable Code(s): I48.91 - UNSPECIFIED ATRIAL FIBRILLATION Qualifiers: Atrial fibrillation type: persistent (2) Ataxia Assessment/Plan: possible rehab Code(s): R27.0 - ATAXIA, UNSPECIFIED (3) Diabetes Assessment/Plan: insulin sliding scale and bgms Code(s): E11.9 - TYPE 2 DIABETES MELLITUS WITHOUT COMPLICATIONS (4) HTN (hypertension) Code(s): I10 - ESSENTIAL (PRIMARY) HYPERTENSION Qualifiers: Hypertension type: essential hypertension Qualified Code(s): I10 - Essential (primary) hypertension (5) Osteomyelitis Code(s): M86.9 - OSTEOMYELITIS, UNSPECIFIED (6) Schizophrenia Assessment/Plan: continue home meds Code(s): F20.9 - SCHIZOPHRENIA, UNSPECIFIED (7) Anemia Assessment/Plan: gi note reviewed, apparently patient is refusing procedure although psych said he cannot make informed decision/lacks capacity, as per dr alba patient can still refuse procedure . Code(s): D64.9 - ANEMIA, UNSPECIFIED Qualifiers: Anemia type: unspecified type Qualified Code(s): D64.9 - Anemia, unspecified (8) Septic arthritis Assessment/Plan: start abx r/o septic arthritis vs arthritis/gout ortho consult cxs pending Code(s): M00.9 - PYOGENIC ARTHRITIS, UNSPECIFIED
[2019-02-08] MEDS ORDERED: PT OWN MED DRAWER 7, Y5N ONE (13:17)
[2019-02-08] MEDS: VANCOMYCIN HCL 1,250 MG in DEXTROSE 5%-WATER - 250 ML IVPB SCH (13:18)
--- NOTE | 2019-02-08 14:45 | PN ---
Progress Note, Physician History of Present Illness: Afib with improved rate-control, asymptomatic and denies chest pain, dyspnea, palpitations. Afebrile, right knee effusion s/p tap, synovial fluid studies pending. Patient lacks mental capacity to consent for procedures. - Current Medication List Current Medications: Active Medications Acetaminophen (Tylenol -) 650 mg PO Q6H PRN PRN Reason: FEVER Last Admin: 02/06/19 05:26 Dose: 650 mg Aripiprazole (Abilify) 5 mg PO DAILY [facility] Last Admin: 02/08/19 11:48 Dose: 5 mg Benztropine Mesylate (Cogentin -) 0.5 mg PO HS [facility] Last Admin: 02/07/19 21:29 Dose: 0.5 mg Diltiazem HCl (Cardizem Injection -) 10 mg IVPUSH Q4H PRN PRN Reason: TACHYCARDIA Last Admin: 01/27/19 22:35 Dose: 10 mg Diltiazem HCl (Cardizem -) 30 mg PO Q6HPO [facility] Last Admin: 02/08/19 11:48 Dose: 30 mg Furosemide (Lasix -) 20 mg PO DAILY [facility] Last Admin: 02/08/19 11:48 Dose: 20 mg Ceftriaxone Sodium 1 gm/ (Dextrose) 50 mls @ 100 mls/hr IVPB DAILY [facility]; Protocol Last Admin: 02/08/19 11:48 Dose: 100 mls/hr Vancomycin HCl 1,250 mg/ (Dextrose) 250 mls @ 250 mls/2 hr IVPB Q24H [facility]; Protocol Last Admin: 02/08/19 13:18 Dose: 250 mls/2 hr Insulin Aspart (Novolog Vial Sliding Scale -) 1 vial SQ BIDI [facility]; Protocol Last Admin: 02/08/19 07:00 Dose: 2 units Lisinopril (Prinivil) 2.5 mg PO DAILY [facility] Last Admin: 02/08/19 11:48 Dose: 2.5 mg Metoprolol Tartrate (Lopressor -) 50 mg PO QID [facility] Last Admin: 02/08/19 11:48 Dose: 50 mg Pantoprazole Sodium (Protonix -) 20 mg PO BID [facility] Last Admin: 02/08/19 11:48 Dose: 20 mg Rivaroxaban (Xarelto) 20 mg PO DAILY@1800 [facility] Last Admin: 02/07/19 17:19 Dose: 20 mg - Objective Vital Signs: Vital Signs Temperature 97.6 F 02/08/19 14:27 Pulse Rate 78 02/08/19 14:27 Respiratory Rate 20 02/08/19 14:27 Blood Pressure 96/63 02/08/19 14:27 O2 Sat by Pulse Oximetry (%) 100 02/08/19 09:00 Constitutional: Yes: No Distress, Calm Neck: Yes: Supple Cardiovascular: Yes: Tachycardia, Pulse Irregular Respiratory: Yes: Regular, CTA Bilaterally Gastrointestinal: Yes: Normal Bowel Sounds, Soft Musculoskeletal: Yes: Joint Swelling Edema: No Labs: CBC, BMP 02/07/19 05:45 02/07/19 05:45 - ....Imaging EKG: Report Reviewed (Tele: Afib) Problem List - Problems (1) Demand ischemia Code(s): I24.8 - OTHER FORMS OF ACUTE ISCHEMIC HEART DISEASE (2) Anemia Code(s): D64.9 - ANEMIA, UNSPECIFIED Qualifiers: Anemia type: unspecified type Qualified Code(s): D64.9 - Anemia, unspecified (3) Diastolic dysfunction Code(s): I51.89 - OTHER ILL-DEFINED HEART DISEASES (4) Afib Code(s): I48.91 - UNSPECIFIED ATRIAL FIBRILLATION Qualifiers: Atrial fibrillation type: persistent (5) HTN (hypertension) Code(s): I10 - ESSENTIAL (PRIMARY) HYPERTENSION Qualifiers: Hypertension type: essential hypertension Qualified Code(s): I10 - Essential (primary) hypertension (6) Schizophrenia Code(s): F20.9 - SCHIZOPHRENIA, UNSPECIFIED (7) Effusion, right knee Code(s): M25.461 - EFFUSION, RIGHT KNEE Assessment/Plan 01/22/2019 Echo: Normal and RV size and fxn LVEF 53%, mild TR RVSP 34 mmHg, tr- mild MR, normal biatrial sizes 1. Persistent AF with improved rate-control, [id number] score of 5 on DOAC 2. CAD with demand ischemia 3. Diastolic dysfunction with clinical class 0 NYHA classification heart failure 4. DM 5. HTN 6. Hypercholesterolemia 7. History of schizophrenia 8. History of osteomyelitis 9. History of CVA 10. Anemia post transfusion 11. Right knee DJD, effusion post arthrocentesis w/o crystals, r/o septic joint PLAN: 1. Continue Lopressor at 50 mg four times daily (may switch to Toprol-XL once patient is ready for discharge), hemodynamics permitting 2. Continue Prinivil 2.5 qd, hemodynamics permitting 3. Continue Cardizem at 30 mg four times daily (may switch to Cardizem CD once patient is ready for discharge), hemodynamics permitting 4. Continue Xarelto 20 qd with close monitoring of hemoglobin level, maintain hemoglobin equal or greater than 8.0 5. Continue Lasix 20 qd with close monitoring of diuretic response, renal function and electrolytes 6. F/u synovial fluid r/o infectious pathology, continue empiric abx course
--- NOTE | 2019-02-08 17:21 | PN ---
Progress Note (short form) - Note Progress Note: Ortho Pt seen and examined- right knee improved after aspiration Selected Entries 02/08/19 14:27 Temperature 97.6 F Pulse Rate 78 Respiratory 20 Rate Blood Pressure 96/63 Laboratory Tests 02/07/19 02/07/19 05:45 16:10 WBC 9.5 Hgb 7.7 L Hct 24.0 L Plt Count 366 D Synovial Source Synovial Synovial WBC 4957 Synovial RBC 3687 Synovial Neutrophils 95 Synovial Lymphocytes 5 Synovial Crystals Negative minimal effusion, no erythema, decr pain, incr rom, calf soft nt, nvi synovial cultures- neg a/p- Right knee is NOT septic PT wbat no further orthopedic interventions at this time re-consult prn d/w Dr. Michael
[2019-02-08] MEDS: RIVAROXABAN 20 MG TABLET PO SCH (17:37)
--- NOTE | 2019-02-08 18:17 | PN ---
Progress Note, Physician History of Present Illness: Pt chart reviewed. He is alert and responsive, without distress. Rt knee edema but no significant pain, remains afebrile. s/p knee aspiration of cloudy fluid yesterday. No specific complaints. - Current Medication List Current Medications: Active Medications Acetaminophen (Tylenol -) 650 mg PO Q6H PRN PRN Reason: FEVER Last Admin: 02/06/19 05:26 Dose: 650 mg Aripiprazole (Abilify) 5 mg PO DAILY [facility] Last Admin: 02/08/19 11:48 Dose: 5 mg Benztropine Mesylate (Cogentin -) 0.5 mg PO HS [facility] Last Admin: 02/07/19 21:29 Dose: 0.5 mg Diltiazem HCl (Cardizem Injection -) 10 mg IVPUSH Q4H PRN PRN Reason: TACHYCARDIA Last Admin: 01/27/19 22:35 Dose: 10 mg Diltiazem HCl (Cardizem -) 30 mg PO Q6HPO [facility] Last Admin: 02/08/19 17:37 Dose: 30 mg Furosemide (Lasix -) 20 mg PO DAILY [facility] Last Admin: 02/08/19 11:48 Dose: 20 mg Ceftriaxone Sodium 1 gm/ (Dextrose) 50 mls @ 100 mls/hr IVPB DAILY [facility]; Protocol Last Admin: 02/08/19 11:48 Dose: 100 mls/hr Vancomycin HCl 1,250 mg/ (Dextrose) 250 mls @ 250 mls/2 hr IVPB Q24H [facility]; Protocol Last Admin: 02/08/19 13:18 Dose: 250 mls/2 hr Insulin Aspart (Novolog Vial Sliding Scale -) 1 vial SQ BIDI [facility]; Protocol Last Admin: 02/08/19 17:43 Dose: 2 units Lisinopril (Prinivil) 2.5 mg PO DAILY [facility] Last Admin: 02/08/19 11:48 Dose: 2.5 mg Metoprolol Tartrate (Lopressor -) 50 mg PO QID [facility] Last Admin: 02/08/19 15:46 Dose: 50 mg Pantoprazole Sodium (Protonix -) 20 mg PO BID [facility] Last Admin: 02/08/19 11:48 Dose: 20 mg Rivaroxaban (Xarelto) 20 mg PO DAILY@1800 [facility] Last Admin: 02/08/19 17:37 Dose: 20 mg - Objective Vital Signs: Vital Signs Temperature 97.6 F 02/08/19 14:27 Pulse Rate 100 H 02/08/19 17:33 Respiratory Rate 20 02/08/19 17:33 Blood Pressure 104/70 02/08/19 17:33 O2 Sat by Pulse Oximetry (%) 100 02/08/19 09:00 Constitutional: Yes: No Distress, Calm Eyes: Yes: Conjunctiva Clear Neck: Yes: Supple Cardiovascular: Yes: Pulse Irregular Respiratory: Yes: CTA Bilaterally Gastrointestinal: Yes: Normal Bowel Sounds, Soft Genitourinary: Yes: WNL Musculoskeletal: Yes: Joint Swelling (Rt knee swelling, no erythema/tenderness) Peripheral Pulses WNL: Yes Integumentary: Yes: WNL Neurological: Yes: Alert Psychiatric: Yes: Alert Labs: CBC, BMP 02/07/19 05:45 02/07/19 05:45 Laboratory Last Values WBC 9.5 K/mm3 (4.0-10.0) 02/07/19 05:45 RBC 3.34 M/mm3 (4.00-5.60) L 02/07/19 05:45 Hgb 7.7 GM/dL (11.7-16.9) L 02/07/19 05:45 Hct 24.0 % (35.4-49) L 02/07/19 05:45 MCV 71.7 fl (80-96) L 02/07/19 05:45 MCH 23.1 pg (25.7-33.7) L 02/07/19 05:45 MCHC 32.2 g/dl (32.0-35.9) 02/07/19 05:45 RDW 25.0 % (11.9-15.9) H 02/07/19 05:45 Plt Count 366 K/MM3 (134-434) D 02/07/19 05:45 MPV 7.5 fl (7.5-11.1) 02/07/19 05:45 Absolute Neuts (auto) 7.9 K/mm3 (1.5-8.0) 02/07/19 05:45 Neutrophils % 83.2 % (42.8-82.8) H 02/07/19 05:45 Lymphocytes % 8.8 % (8-40) D 02/07/19 05:45 Monocytes % 6.0 % (3.8-10.2) 02/07/19 05:45 Eosinophils % 1.7 % (0-4.5) D 02/07/19 05:45 Basophils % 0.3 % (0-2.0) 02/07/19 05:45 Nucleated RBC % 0 % (0-0) 02/07/19 05:45 Hypochromia 0 02/07/19 05:45 Platelet Estimate Normal 02/07/19 05:45 Platelet Comment Present 02/07/19 05:45 Polychromasia 2+ 02/07/19 05:45 Poikilocytosis 1+ 02/07/19 05:45 Anisocytosis 1+ 02/07/19 05:45 Microcytosis 1+ 02/07/19 05:45 Macrocytosis 0 02/07/19 05:45 Spherocytes 1+ 01/26/19 09:00 Target Cells 1+ 02/07/19 05:45 Tear Drop Cells 1+ 02/07/19 05:45 Ovalocytes 1+ 02/07/19 05:45 Baldwin Cells 2+ 02/07/19 05:45 Acanthocytes (Spur) 1+ 02/07/19 05:45 Schistocytes 1+ 01/26/19 09:00 ESR 107 mm/hr (0-20) H 02/05/19 05:40 Sodium 131 mmol/L (136-145) L 02/07/19 05:45 Potassium 4.3 mmol/L (3.5-5.1) 02/07/19 05:45 Chloride 94 mmol/L (98-107) L 02/07/19 05:45 Carbon Dioxide 30 mmol/L (21-32) 02/07/19 05:45 Anion Gap 6 MMOL/L (8-16) L 02/07/19 05:45 BUN 16.3 mg/dL (7-18) 02/07/19 05:45 Creatinine 0.5 mg/dL (0.55-1.3) L 02/07/19 05:45 Est GFR (CKD-EPI)AfAm 130.88 02/07/19 05:45 Est GFR (CKD-EPI)NonAf 112.92 02/07/19 05:45 POC Glucometer 143 UNITS (80-120) 02/08/19 17:41 Random Glucose 132 mg/dL (74-106) H 02/07/19 05:45 Uric Acid 3.3 mg/dL (2.6-7.2) 01/31/19 19:50 Calcium 8.1 mg/dL (8.5-10.1) L 02/07/19 05:45 Total Bilirubin 0.6 mg/dL (0.2-1) 02/07/19 05:45 AST 63 U/L (15-37) H 02/07/19 05:45 ALT 64 U/L (13-61) H 02/07/19 05:45 Alkaline Phosphatase 139 U/L (45-117) H 02/07/19 05:45 Ammonia 32.70 umol/L (11-32) H 01/13/19 12:10 Creatine Kinase 29 U/L (26-308) 01/13/19 12:10 Troponin I 0.03 ng/ml (0.00-0.05) 01/17/19 21:00 C-Reactive Protein 19.4 MG/DL (0.00-0.3) H 02/05/19 05:40 Total Protein 6.4 g/dl (6.4-8.2) 02/07/19 05:45 Albumin 1.7 g/dl (3.4-5.0) L 02/07/19 05:45 Triglycerides 110 mg/dL (0-150) 01/18/19 13:05 Cholesterol 119 mg/dL (50-200) 01/18/19 13:05 Total LDL Cholesterol 74 mg/dL (5-100) 01/18/19 13:05 HDL Cholesterol 19 mg/dL (40-60) L 01/18/19 13:05 TSH 2.78 uIU/ml (0.358-3.74) 01/18/19 13:05 Urine Color Yellow 01/17/19 07:00 Urine Appearance Clear 01/17/19 07:00 Urine pH 5.0 (5.0-8.0) 01/17/19 07:00 Ur Specific Wilmer 1.022 (1.010-1.035) 01/17/19 07:00 Urine Protein Trace (NEGATIVE) 01/17/19 07:00 Urine Glucose (UA) Negative (NEGATIVE) 01/17/19 07:00 Urine Ketones Negative (NEGATIVE) 01/17/19 07:00 Urine Blood Negative (NEGATIVE) 01/17/19 07:00 Urine Nitrite Negative (NEGATIVE) 01/17/19 07:00 Urine Bilirubin Negative (NEGATIVE) 01/17/19 07:00 Urine Urobilinogen 0.2 mg/dL (0.2-1.0) 01/17/19 07:00 Ur Leukocyte Esterase Negative (NEGATIVE) 01/17/19 07:00 Synovial Source Synovial 02/07/19 16:10 Synovial WBC 4957 /mm3 02/07/19 16:10 Synovial RBC 3687 /mm3 02/07/19 16:10 Synovial Neutrophils 95 % 02/07/19 16:10 Synovial Lymphocytes 5 % 02/07/19 16:10 Synovial Monocytes No Result Required. 02/07/19 16:10 Synovial Histocytes No Result Required. 02/07/19 16:10 Synovial Plasma Cells No Result Required. 02/07/19 16:10 Synovial LE Cells No Result Required. 02/07/19 16:10 Synovial Macrophages No Result Required. 02/07/19 16:10 Synovial Other Cells No Result Required. 02/07/19 16:10 Synovial Diff Comment No Result Required. 02/07/19 16:10 Synovial Crystals Negative 02/07/19 16:10 Stool Occult Blood Negative (NEGATIVE) 01/20/19 02:30 Vancomycin Pre-Dose 4.4 ug/ml (18-26) L 02/07/19 12:20 Blood Type O POSITIVE 01/17/19 21:45 Antibody Screen Negative 01/17/19 21:45 Crossmatch See Detail 01/17/19 21:45 Microbiology 02/07/19 14:53 Synovial Fluid - Knee Gram Stain - Final 02/03/19 20:20 Blood - Peripheral Venous Blood Culture - Preliminary NO GROWTH OBTAINED AFTER 96 HOURS, INCUBATION TO CONTINUE FOR 1 DAYS. 02/03/19 20:15 Blood - Peripheral Venous Blood Culture - Preliminary NO GROWTH OBTAINED AFTER 96 HOURS, INCUBATION TO CONTINUE FOR 1 DAYS. 01/17/19 00:20 Blood - Peripheral Venous Blood Culture - Final NO GROWTH AFTER 5 DAYS INCUBATION 01/16/19 23:55 Blood - Peripheral Venous Blood Culture - Final NO GROWTH AFTER 5 DAYS INCUBATION 01/17/19 07:00 Urine - Urine Clean Catch Urine Culture - Final Contaminated: Please Repeat Problem List - Problems (1) Afib Code(s): I48.91 - UNSPECIFIED ATRIAL FIBRILLATION Qualifiers: Atrial fibrillation type: persistent (2) Anemia Code(s): D64.9 - ANEMIA, UNSPECIFIED Qualifiers: Anemia type: unspecified type Qualified Code(s): D64.9 - Anemia, unspecified (3) Demand ischemia Code(s): I24.8 - OTHER FORMS OF ACUTE ISCHEMIC HEART DISEASE (4) Effusion, right knee Code(s): M25.461 - EFFUSION, RIGHT KNEE (5) Diabetes Code(s): E11.9 - TYPE 2 DIABETES MELLITUS WITHOUT COMPLICATIONS (6) HTN (hypertension) Code(s): I10 - ESSENTIAL (PRIMARY) HYPERTENSION Qualifiers: Hypertension type: essential hypertension Qualified Code(s): I10 - Essential (primary) hypertension (7) Schizophrenia Code(s): F20.9 - SCHIZOPHRENIA, UNSPECIFIED Assessment/Plan Rt knee effusion r/o septic arthritis AFIB CAD DM Hx of CVA -- s/p Rt knee aspiration, analysis noted, follow up culture results -- continue Ceftriaxone/Vancomycin for now, monitor renal function -- continue monitor, Tmax 99.8F
[2019-02-08] MEDS: BENZTROPINE MESYLATE 0.5 MG TABLET (FP) PO SCH (22:22)
[2019-02-09] MEDS ORDERED: INSULIN (NOVOLOG) ASPART 100 UNITS/ML 10ML VIAL ONE (06:26)
[2019-02-09] MEDS: dilTIAZem HCL 30 MG TABLET (FP) PO SCH ×3 (06:31→17:15)
[2019-02-09] MEDS: INSULIN SLIDING SCALE (NOVOLOG) 1 VIAL SQ SCH ×2 (06:33→17:16)
--- NOTE | 2019-02-09 07:17 | PN ---
Progress Note (short form) - Note Progress Note: Chief Complaint: Events noted, notes reviewed, denies any chest discomfort, denies any dyspnea, atrial fibrillation is persistent with improved/controlled ventricular rates History of Present Illness: Seen and examined on telemetry. Events noted, notes reviewed, denies any chest discomfort, denies any dyspnea, atrial fibrillation is persistent with improved/ controlled ventricular rates Medications: Current Medications Acetaminophen (Tylenol -) 650 mg PO Q6H PRN PRN Reason: FEVER Last Admin: 02/06/19 05:26 Dose: 650 mg Aripiprazole (Abilify) 5 mg PO DAILY [facility] Last Admin: 02/08/19 11:48 Dose: 5 mg Benztropine Mesylate (Cogentin -) 0.5 mg PO HS [facility] Last Admin: 02/08/19 22:22 Dose: 0.5 mg Diltiazem HCl (Cardizem Injection -) 10 mg IVPUSH Q4H PRN PRN Reason: TACHYCARDIA Last Admin: 01/27/19 22:35 Dose: 10 mg Diltiazem HCl (Cardizem -) 30 mg PO Q6HPO [facility] Last Admin: 02/09/19 06:31 Dose: 30 mg Furosemide (Lasix -) 20 mg PO DAILY [facility] Last Admin: 02/08/19 11:48 Dose: 20 mg Ceftriaxone Sodium 1 gm/ (Dextrose) 50 mls @ 100 mls/hr IVPB DAILY [facility]; Protocol Last Admin: 02/08/19 11:48 Dose: 100 mls/hr Vancomycin HCl 1,250 mg/ (Dextrose) 250 mls @ 250 mls/2 hr IVPB Q24H [facility]; Protocol Last Admin: 02/08/19 13:18 Dose: 250 mls/2 hr Insulin Aspart (Novolog Vial Sliding Scale -) 1 vial SQ BIDI [facility]; Protocol Last Admin: 02/09/19 06:33 Dose: 2 units Lisinopril (Prinivil) 2.5 mg PO DAILY [facility] Last Admin: 02/08/19 11:48 Dose: 2.5 mg Metoprolol Tartrate (Lopressor -) 50 mg PO QID [facility] Last Admin: 02/08/19 22:22 Dose: 50 mg Pantoprazole Sodium (Protonix -) 20 mg PO BID [facility] Last Admin: 02/08/19 22:22 Dose: 20 mg Rivaroxaban (Xarelto) 20 mg PO DAILY@1800 [facility] Last Admin: 02/08/19 17:37 Dose: 20 mg Review of Systems - Review of Systems Constitutional: No symptoms reported Respiratory: denies: Cough or Sputum Production Cardiovascular: as noted above Gastrointestinal: denies Nausea, Vomiting, Diarrhea, Constipation or Abdominal Pain Genitourinary: No symptoms reported Musculoskeletal: No symptoms reported Endocrine: No symptoms reported Vital Signs: Last Vital Signs Temp Pulse Resp BP Pulse Ox 97.9 F 86 20 93/58 L 97 02/08/19 22:00 02/09/19 06:00 02/09/19 06:00 02/09/19 06:00 02/08/19 21:00 Intake & Output 02/06/19 02/07/19 02/08/19 02/09/19 23:59 23:59 23:59 23:59 Intake Total 799 402 4171 110 Output Total 1200 1800 3000 720 Balance -440 -1050 -750 -610 Weight 178 lb 9.6 oz 182 lb 8 oz 179 lb 4 oz Constitutional: No Distress, Calm Neck: Supple Negative JVD No Bruit Respiratory: Diminished Breath Sounds at the Bases Cardiovascular: S1 S2 irregularly irregular Gastrointestinal: Soft Benign Normal Bowel Sounds Ext: No Edema Labs: CBC, BMP 02/07/19 05:45 02/07/19 05:45 Hepatic Panel Total Bilirubin 0.6 mg/dL (0.2-1) 02/07/19 05:45 AST 63 U/L (15-37) H 02/07/19 05:45 ALT 64 U/L (13-61) H 02/07/19 05:45 Alkaline Phosphatase 139 U/L (45-117) H 02/07/19 05:45 Albumin 1.7 g/dl (3.4-5.0) L 02/07/19 05:45 Assessment/Plan ASSESSMENT: 1. Persistent atrial fibrillation with improved/controlled ventricular response - rates, [id number] score of 5 on DOAC's/Xarelto 2. Coronary artery disease with evidence of demand ischemia no clinical angina pectoris 3. Diastolic left ventricular dysfunction with clinical class 0 [place] [employer] classification left ventricular failure 4. Hypertensive cardiovascular disease 5. Diabetes mellitus 6. Hypercholesterolemia 7. History of cerebrovascular disease 8. History of schizophrenia 9. History of ataxia 10. History of osteomyelitis 11. Anemia 12. Hyponatremia PLAN: 1. Continue Lopressor at 50 mg four times daily (and as outlined may switch to Toprol-XL once patient is ready for discharge), hemodynamics permitting 2. Continue Prinivil, hemodynamics permitting 3. Continue Cardizem at 30 mg four times daily (and as outlined may switch to Cardizem CD once patient is ready for discharge), hemodynamics permitting 4. Continue Xarelto with close monitoring of hemoglobin level, maintain hemoglobin equal or greater than 8.0 5. Continue diuretic therapy/Lasix therapy with close monitoring of renal function and electrolytes 6. Repeat blood test from this AM, follow Hg and may transfuse if Hg equal or < 8.0, follow Na level Ubaldo Kim M.D.
[2019-02-09 08:47] LABS: BASO % 0.8 % (0-2.0); HEMATOCRIT 25.6 % (35.4-49); HEMOGLOBIN 8.2 GM/dL (11.7-16.9); LYMPH % 8.1 % (8-40); MCH 23.1 pg (25.7-33.7); MCHC 31.9 g/dl (32.0-35.9); MEAN CELL VOLUME 72.3 fl (80-96); MEAN PLT VOLUME 7.3 fl (7.5-11.1); MONO % 5.3 % (3.8-10.2); NEUT % 84.8 % (42.8-82.8); PLATELET COUNT 456 K/MM3 (134-434); RBC 3.54 M/mm3 (4.00-5.60); RDW 24.9 % (11.9-15.9); WHITE BLOOD COUNT 10.9 K/mm3 (4.0-10.0)
[2019-02-09] MEDS ORDERED: DEXTROSE 5%-WATER - 50 ML IVPB ONE (09:18)
[2019-02-09] MEDS ORDERED: cefTRIAXone SODIUM 1 GM VIAL ONE (09:18)
[2019-02-09] MEDS ORDERED: PT OWN MED DRAWER 7, Y5N ONE (09:20)
[2019-02-09] MEDS: CEFTRIAXONE 1 GM in DEXTROSE 5%-WATER - 50 ML IVPB SCH (09:21)
[2019-02-09 09:23] LABS: ALBUMIN 1.7 g/dl (3.4-5.0); BILIRUBIN,TOTAL 0.7 mg/dL (0.2-1); BLOOD UREA NITROGEN 15.7 mg/dL (7-18); CALCIUM 8.3 mg/dL (8.5-10.1); CREATININE 0.5 mg/dL (0.55-1.3); POTASSIUM 4.3 mmol/L (3.5-5.1); TOT PROT 6.6 g/dl (6.4-8.2)
[2019-02-09] MEDS: LISINOPRIL 5 MG TABLET (FP) PO SCH (09:25)
[2019-02-09] MEDS: METOPROLOL TARTRATE 50 MG TABLET (FP) PO SCH ×4 (09:25→21:13)
[2019-02-09] MEDS: PANTOPRAZOLE 20 MG TABLET (FP) PO SCH ×2 (09:25→21:13)
[2019-02-09] MEDS: ARIPiprazole 5 MG TABLET (FP) PO SCH (09:25)
[2019-02-09] MEDS: FUROSEMIDE 20 MG TABLET (FP) PO SCH (09:25)
[2019-02-09] MEDS: ACETAMINOPHEN 325 MG TABLET (FP) PO PRN ×2 (09:31→21:42)
[2019-02-09] MEDS: VANCOMYCIN HCL 1,250 MG in DEXTROSE 5%-WATER - 250 ML IVPB SCH (12:19)
--- NOTE | 2019-02-09 12:31 | PN ---
Progress Note, Physician History of Present Illness: Pt is alert, without distress. Refusing as per RN to get OOB to chair. He has been having mild temp elevations. No specific complaints. - Current Medication List Current Medications: Active Medications Acetaminophen (Tylenol -) 650 mg PO Q6H PRN PRN Reason: FEVER Last Admin: 02/09/19 09:31 Dose: 650 mg Aripiprazole (Abilify) 5 mg PO DAILY [facility] Last Admin: 02/09/19 09:25 Dose: 5 mg Benztropine Mesylate (Cogentin -) 0.5 mg PO HS [facility] Last Admin: 02/08/19 22:22 Dose: 0.5 mg Diltiazem HCl (Cardizem Injection -) 10 mg IVPUSH Q4H PRN PRN Reason: TACHYCARDIA Last Admin: 01/27/19 22:35 Dose: 10 mg Diltiazem HCl (Cardizem -) 30 mg PO Q6HPO [facility] Last Admin: 02/09/19 11:49 Dose: 30 mg Furosemide (Lasix -) 20 mg PO DAILY [facility] Last Admin: 02/09/19 09:25 Dose: 20 mg Ceftriaxone Sodium 1 gm/ (Dextrose) 50 mls @ 100 mls/hr IVPB DAILY [facility]; Protocol Last Admin: 02/09/19 09:21 Dose: 100 mls/hr Vancomycin HCl 1,250 mg/ (Dextrose) 250 mls @ 250 mls/2 hr IVPB Q24H [facility]; Protocol Last Admin: 02/09/19 12:19 Dose: 250 mls/2 hr Insulin Aspart (Novolog Vial Sliding Scale -) 1 vial SQ BIDI [facility]; Protocol Last Admin: 02/09/19 06:33 Dose: 2 units Lisinopril (Prinivil) 2.5 mg PO DAILY [facility] Last Admin: 02/09/19 09:25 Dose: 2.5 mg Metoprolol Tartrate (Lopressor -) 50 mg PO QID [facility] Last Admin: 02/09/19 09:25 Dose: 50 mg Pantoprazole Sodium (Protonix -) 20 mg PO BID [facility] Last Admin: 02/09/19 09:25 Dose: 20 mg Rivaroxaban (Xarelto) 20 mg PO DAILY@1800 [facility] Last Admin: 02/08/19 17:37 Dose: 20 mg - Objective Vital Signs: Vital Signs Temperature 99.6 F 02/09/19 12:12 Pulse Rate 89 02/09/19 12:12 Respiratory Rate 17 02/09/19 12:12 Blood Pressure 99/68 02/09/19 12:12 O2 Sat by Pulse Oximetry (%) 97 02/09/19 09:00 Constitutional: Yes: No Distress, Calm Eyes: Yes: Conjunctiva Clear Neck: Yes: Supple Respiratory: Yes: Regular Gastrointestinal: Yes: Normal Bowel Sounds, Soft Genitourinary: Yes: WNL Musculoskeletal: Yes: Joint Swelling (Rt knee edema/no external erythema, no significant tenderness) Integumentary: Yes: WNL Neurological: Yes: Alert Labs: CBC, BMP 02/09/19 08:10 02/09/19 08:10 Microbiology 02/07/19 14:53 Synovial Fluid - Knee Gram Stain - Final 02/07/19 14:53 Synovial Fluid - Knee Body Fluid Culture - Preliminary NO AEROBIC GROWTH, 24 HRS 02/03/19 20:15 Blood - Peripheral Venous Blood Culture - Final NO GROWTH AFTER 5 DAYS INCUBATION 02/03/19 20:20 Blood - Peripheral Venous Blood Culture - Final NO GROWTH AFTER 5 DAYS INCUBATION 01/17/19 00:20 Blood - Peripheral Venous Blood Culture - Final NO GROWTH AFTER 5 DAYS INCUBATION 01/16/19 23:55 Blood - Peripheral Venous Blood Culture - Final NO GROWTH AFTER 5 DAYS INCUBATION 01/17/19 07:00 Urine - Urine Clean Catch Urine Culture - Final Contaminated: Please Repeat Problem List - Problems (1) Afib Code(s): I48.91 - UNSPECIFIED ATRIAL FIBRILLATION Qualifiers: Atrial fibrillation type: persistent (2) Anemia Code(s): D64.9 - ANEMIA, UNSPECIFIED Qualifiers: Anemia type: unspecified type Qualified Code(s): D64.9 - Anemia, unspecified (3) Demand ischemia Code(s): I24.8 - OTHER FORMS OF ACUTE ISCHEMIC HEART DISEASE (4) Effusion, right knee Code(s): M25.461 - EFFUSION, RIGHT KNEE (5) Diabetes Code(s): E11.9 - TYPE 2 DIABETES MELLITUS WITHOUT COMPLICATIONS (6) HTN (hypertension) Code(s): I10 - ESSENTIAL (PRIMARY) HYPERTENSION Qualifiers: Hypertension type: essential hypertension Qualified Code(s): I10 - Essential (primary) hypertension (7) Schizophrenia Code(s): F20.9 - SCHIZOPHRENIA, UNSPECIFIED Assessment/Plan Rt knee effusion r/o septic arthritis AFIB CAD DM Hx of CVA -- s/p Rt knee aspiration, analysis noted, follow up final culture results, preliminary results noted. Aspiration was done after several days of antibiotics while awaiting consent for procedure -- continue Ceftriaxone/Vancomycin for now, monitor renal function, repeat Vancomycin T tomorrow -- continue monitor, temps mildly elevated (? inflammatory)
--- NOTE | 2019-02-09 16:51 | PN ---
Progress Note, Physician History of Present Illness: doing well - Current Medication List Current Medications: Active Medications Acetaminophen (Tylenol -) 650 mg PO Q6H PRN PRN Reason: FEVER Last Admin: 02/09/19 09:31 Dose: 650 mg Aripiprazole (Abilify) 5 mg PO DAILY [facility] Last Admin: 02/09/19 09:25 Dose: 5 mg Benztropine Mesylate (Cogentin -) 0.5 mg PO HS [facility] Last Admin: 02/08/19 22:22 Dose: 0.5 mg Diltiazem HCl (Cardizem Injection -) 10 mg IVPUSH Q4H PRN PRN Reason: TACHYCARDIA Last Admin: 01/27/19 22:35 Dose: 10 mg Diltiazem HCl (Cardizem -) 30 mg PO Q6HPO [facility] Last Admin: 02/09/19 11:49 Dose: 30 mg Furosemide (Lasix -) 20 mg PO DAILY [facility] Last Admin: 02/09/19 09:25 Dose: 20 mg Vancomycin HCl 1,250 mg/ (Dextrose) 250 mls @ 250 mls/2 hr IVPB Q24H [facility]; Protocol Last Admin: 02/09/19 12:19 Dose: 250 mls/2 hr Insulin Aspart (Novolog Vial Sliding Scale -) 1 vial SQ BIDI [facility]; Protocol Last Admin: 02/09/19 06:33 Dose: 2 units Lisinopril (Prinivil) 2.5 mg PO DAILY [facility] Last Admin: 02/09/19 09:25 Dose: 2.5 mg Metoprolol Tartrate (Lopressor -) 50 mg PO QID [facility] Last Admin: 02/09/19 13:25 Dose: 50 mg Pantoprazole Sodium (Protonix -) 20 mg PO BID [facility] Last Admin: 02/09/19 09:25 Dose: 20 mg Rivaroxaban (Xarelto) 20 mg PO DAILY@1800 [facility] Last Admin: 02/08/19 17:37 Dose: 20 mg - Objective Vital Signs: Vital Signs Temperature 98.8 F 02/09/19 14:07 Pulse Rate 88 02/09/19 14:07 Respiratory Rate 17 02/09/19 14:07 Blood Pressure 96/64 02/09/19 14:07 O2 Sat by Pulse Oximetry (%) 97 02/09/19 09:00 Constitutional: Yes: No Distress HENT: Yes: Atraumatic Neck: Yes: Supple Cardiovascular: Yes: Regular Rate and Rhythm Respiratory: Yes: CTA Bilaterally Gastrointestinal: Yes: Normal Bowel Sounds Extremities: Yes: WNL Edema: No Neurological: Yes: Alert Labs: CBC, BMP 02/09/19 08:10 02/09/19 08:10 Problem List - Problems (1) Afib Assessment/Plan: on meds stable Code(s): I48.91 - UNSPECIFIED ATRIAL FIBRILLATION Qualifiers: Atrial fibrillation type: persistent (2) Ataxia Assessment/Plan: possible rehab Code(s): R27.0 - ATAXIA, UNSPECIFIED (3) Diabetes Assessment/Plan: insulin sliding scale and bgms Code(s): E11.9 - TYPE 2 DIABETES MELLITUS WITHOUT COMPLICATIONS (4) HTN (hypertension) Code(s): I10 - ESSENTIAL (PRIMARY) HYPERTENSION Qualifiers: Hypertension type: essential hypertension Qualified Code(s): I10 - Essential (primary) hypertension (5) Osteomyelitis Code(s): M86.9 - OSTEOMYELITIS, UNSPECIFIED (6) Schizophrenia Assessment/Plan: continue home meds Code(s): F20.9 - SCHIZOPHRENIA, UNSPECIFIED (7) Anemia Assessment/Plan: gi note reviewed, apparently patient is refusing procedure although psych said he cannot make informed decision/lacks capacity, as per dr alba patient can still refuse procedure . Code(s): D64.9 - ANEMIA, UNSPECIFIED Qualifiers: Anemia type: unspecified type Qualified Code(s): D64.9 - Anemia, unspecified (8) Septic arthritis Assessment/Plan: om n abx r/o septic arthritis vs arthritis/gout ortho consult cxs pending Code(s): M00.9 - PYOGENIC ARTHRITIS, UNSPECIFIED
[2019-02-09] MEDS: RIVAROXABAN 20 MG TABLET PO SCH (17:15)
[2019-02-09] MEDS: BENZTROPINE MESYLATE 0.5 MG TABLET (FP) PO SCH (21:12)
[2019-02-10] MEDS: dilTIAZem HCL 30 MG TABLET (FP) PO SCH ×4 (00:21→18:01)
[2019-02-10] MEDS: INSULIN SLIDING SCALE (NOVOLOG) 1 VIAL SQ SCH ×2 (06:05→17:20)
[2019-02-10 07:00] LABS: BASO % 0.3 % (0-2.0); EOS % 1.4 % (0-4.5); HEMATOCRIT 25.2 % (35.4-49); HEMOGLOBIN 8.1 GM/dL (11.7-16.9); LYMPH % 7.6 % (8-40); MCHC 32.1 g/dl (32.0-35.9); MEAN CELL VOLUME 71.8 fl (80-96); MEAN PLT VOLUME 7.3 fl (7.5-11.1); MONO % 6.6 % (3.8-10.2); NEUT % 84.1 % (42.8-82.8); PLATELET COUNT 468 K/MM3 (134-434); RBC 3.51 M/mm3 (4.00-5.60); RDW 24.6 % (11.9-15.9); WHITE BLOOD COUNT 10.2 K/mm3 (4.0-10.0)
[2019-02-10 07:26] LABS: BLOOD UREA NITROGEN 18.7 mg/dL (7-18); CALCIUM 8.3 mg/dL (8.5-10.1); CREATININE 0.5 mg/dL (0.55-1.3); POTASSIUM 4.2 mmol/L (3.5-5.1)
[2019-02-10] MEDS ORDERED: INSULIN (NOVOLOG) ASPART 100 UNITS/ML 10ML VIAL ONE (08:40)
[2019-02-10] MEDS: METOPROLOL TARTRATE 50 MG TABLET (FP) PO SCH ×4 (10:23→21:12)
[2019-02-10] MEDS: ARIPiprazole 5 MG TABLET (FP) PO SCH (10:24)
[2019-02-10] MEDS: PANTOPRAZOLE 20 MG TABLET (FP) PO SCH ×2 (10:24→21:12)
[2019-02-10] MEDS: LISINOPRIL 5 MG TABLET (FP) PO SCH (10:24)
[2019-02-10] MEDS: FUROSEMIDE 20 MG TABLET (FP) PO SCH (10:24)
--- NOTE | 2019-02-10 10:49 | PN ---
Progress Note, Physician History of Present Illness: Afib with improved rate-control, asymptomatic and denies chest pain, dyspnea, palpitations. Afebrile, right knee effusion s/p tap, synovial fluid negative for septic joint. Patient lacks mental capacity to consent for procedures. - Current Medication List Current Medications: Active Medications Acetaminophen (Tylenol -) 650 mg PO Q6H PRN PRN Reason: FEVER Last Admin: 02/09/19 21:42 Dose: 650 mg Aripiprazole (Abilify) 5 mg PO DAILY [facility] Last Admin: 02/10/19 10:24 Dose: 5 mg Benztropine Mesylate (Cogentin -) 0.5 mg PO HS [facility] Last Admin: 02/09/19 21:12 Dose: 0.5 mg Diltiazem HCl (Cardizem Injection -) 10 mg IVPUSH Q4H PRN PRN Reason: TACHYCARDIA Last Admin: 01/27/19 22:35 Dose: 10 mg Diltiazem HCl (Cardizem -) 30 mg PO Q6HPO [facility] Last Admin: 02/10/19 05:43 Dose: 30 mg Furosemide (Lasix -) 20 mg PO DAILY [facility] Last Admin: 02/10/19 10:24 Dose: 20 mg Vancomycin HCl 1,250 mg/ (Dextrose) 250 mls @ 250 mls/2 hr IVPB Q24H [facility]; Protocol Last Admin: 02/09/19 12:19 Dose: 250 mls/2 hr Insulin Aspart (Novolog Vial Sliding Scale -) 1 vial SQ BIDI [facility]; Protocol Last Admin: 02/10/19 06:05 Dose: Not Given Lisinopril (Prinivil) 2.5 mg PO DAILY [facility] Last Admin: 02/10/19 10:24 Dose: 2.5 mg Metoprolol Tartrate (Lopressor -) 50 mg PO QID [facility] Last Admin: 02/10/19 10:23 Dose: 50 mg Pantoprazole Sodium (Protonix -) 20 mg PO BID [facility] Last Admin: 02/10/19 10:24 Dose: 20 mg Rivaroxaban (Xarelto) 20 mg PO DAILY@1800 [facility] Last Admin: 02/09/19 17:15 Dose: 20 mg - Objective Vital Signs: Vital Signs Temperature 97.8 F 02/10/19 04:00 Pulse Rate 84 02/10/19 04:00 Respiratory Rate 22 H 02/10/19 04:00 Blood Pressure 95/62 02/10/19 04:00 O2 Sat by Pulse Oximetry (%) 97 02/09/19 19:52 Constitutional: Yes: No Distress, Calm Neck: Yes: Supple Cardiovascular: Yes: Pulse Irregular Respiratory: Yes: Regular, Diminished, On Nasal O2 Gastrointestinal: Yes: Normal Bowel Sounds, Soft Edema: No Labs: CBC, BMP 02/10/19 05:45 02/10/19 06:30 - ....Imaging EKG: Report Reviewed (Tele: Rate-controlled afib) Problem List - Problems (1) Demand ischemia Code(s): I24.8 - OTHER FORMS OF ACUTE ISCHEMIC HEART DISEASE (2) Anemia Code(s): D64.9 - ANEMIA, UNSPECIFIED Qualifiers: Anemia type: unspecified type Qualified Code(s): D64.9 - Anemia, unspecified (3) Diastolic dysfunction Code(s): I51.89 - OTHER ILL-DEFINED HEART DISEASES (4) Afib Code(s): I48.91 - UNSPECIFIED ATRIAL FIBRILLATION Qualifiers: Atrial fibrillation type: persistent (5) HTN (hypertension) Code(s): I10 - ESSENTIAL (PRIMARY) HYPERTENSION Qualifiers: Hypertension type: essential hypertension Qualified Code(s): I10 - Essential (primary) hypertension (6) Schizophrenia Code(s): F20.9 - SCHIZOPHRENIA, UNSPECIFIED (7) Effusion, right knee Code(s): M25.461 - EFFUSION, RIGHT KNEE Assessment/Plan 01/22/2019 Echo: Normal and RV size and fxn LVEF 53%, mild TR RVSP 34 mmHg, tr- mild MR, normal biatrial sizes 1. Persistent AF with improved rate-control, [id number] score of 5 on DOAC 2. CAD with demand ischemia 3. Diastolic dysfunction with clinical class 0 NYHA classification heart failure 4. DM 5. HTN 6. Hypercholesterolemia 7. History of schizophrenia 8. History of osteomyelitis 9. History of CVA 10. Anemia post transfusion 11. Right knee DJD, effusion post arthrocentesis w/o crystals, ruled out septic joint 12. Hyponatremia PLAN: 1. Continue Lopressor at 50 mg four times daily (may switch to Toprol-XL once patient is ready for discharge), hemodynamics permitting 2. Continue Prinivil 2.5 qd, hemodynamics permitting 3. Continue Cardizem at 30 mg four times daily (may switch to Cardizem CD once patient is ready for discharge), hemodynamics permitting 4. Continue Xarelto 20 qd with close monitoring of hemoglobin level, maintain hemoglobin equal or greater than 8.0 5. Continue Lasix 20 qd with close monitoring of diuretic response, renal function and electrolytes 6. F/u synovial fluid ruled out infectious pathology, continue empiric abx course per ID
--- NOTE | 2019-02-10 12:49 | PN ---
Progress Note, Physician History of Present Illness: stable negative for septic joint - Current Medication List Current Medications: Active Medications Acetaminophen (Tylenol -) 650 mg PO Q6H PRN PRN Reason: FEVER Last Admin: 02/09/19 21:42 Dose: 650 mg Aripiprazole (Abilify) 5 mg PO DAILY [facility] Last Admin: 02/10/19 10:24 Dose: 5 mg Benztropine Mesylate (Cogentin -) 0.5 mg PO HS [facility] Last Admin: 02/09/19 21:12 Dose: 0.5 mg Diltiazem HCl (Cardizem Injection -) 10 mg IVPUSH Q4H PRN PRN Reason: TACHYCARDIA Last Admin: 01/27/19 22:35 Dose: 10 mg Diltiazem HCl (Cardizem -) 30 mg PO Q6HPO [facility] Last Admin: 02/10/19 12:14 Dose: 30 mg Furosemide (Lasix -) 20 mg PO DAILY [facility] Last Admin: 02/10/19 10:24 Dose: 20 mg Insulin Aspart (Novolog Vial Sliding Scale -) 1 vial SQ BIDI [facility]; Protocol Last Admin: 02/10/19 06:05 Dose: Not Given Lisinopril (Prinivil) 2.5 mg PO DAILY [facility] Last Admin: 02/10/19 10:24 Dose: 2.5 mg Metoprolol Tartrate (Lopressor -) 50 mg PO QID [facility] Last Admin: 02/10/19 10:23 Dose: 50 mg Pantoprazole Sodium (Protonix -) 20 mg PO BID [facility] Last Admin: 02/10/19 10:24 Dose: 20 mg Rivaroxaban (Xarelto) 20 mg PO DAILY@1800 [facility] Last Admin: 02/09/19 17:15 Dose: 20 mg - Objective Vital Signs: Vital Signs Temperature 99.2 F 02/10/19 09:00 Pulse Rate 98 H 02/10/19 09:00 Respiratory Rate 22 H 02/10/19 09:00 Blood Pressure 105/65 02/10/19 09:00 O2 Sat by Pulse Oximetry (%) 97 02/10/19 09:00 Constitutional: Yes: No Distress, Calm Cardiovascular: Yes: S1, S2 Respiratory: Yes: Regular, CTA Bilaterally Genitourinary: Yes: WNL Musculoskeletal: Yes: WNL Extremities: Yes: Other Neurological: Yes: Alert, Other Labs: CBC, BMP 02/10/19 05:45 02/10/19 06:30 Assessment/Plan Problem List - Problems (1) Afib Code(s): I48.91 - UNSPECIFIED ATRIAL FIBRILLATION Qualifiers: Atrial fibrillation type: chronic Qualified Code(s): I48.2 - Chronic atrial fibrillation (2) Ataxia Code(s): R27.0 - ATAXIA, UNSPECIFIED (3) Diabetes Code(s): E11.9 - TYPE 2 DIABETES MELLITUS WITHOUT COMPLICATIONS (4) HTN (hypertension) Code(s): I10 - ESSENTIAL (PRIMARY) HYPERTENSION (5) Osteomyelitis Code(s): M86.9 - OSTEOMYELITIS, UNSPECIFIED (6) Schizophrenia Code(s): F20.9 - SCHIZOPHRENIA, UNSPECIFIED plan will stop vanco rest as per the team
--- NOTE | 2019-02-10 15:41 | PN ---
Progress Note, Physician - Current Medication List Current Medications: Active Medications Acetaminophen (Tylenol -) 650 mg PO Q6H PRN PRN Reason: FEVER Last Admin: 02/09/19 21:42 Dose: 650 mg Aripiprazole (Abilify) 5 mg PO DAILY [facility] Last Admin: 02/10/19 10:24 Dose: 5 mg Benztropine Mesylate (Cogentin -) 0.5 mg PO HS [facility] Last Admin: 02/09/19 21:12 Dose: 0.5 mg Diltiazem HCl (Cardizem Injection -) 10 mg IVPUSH Q4H PRN PRN Reason: TACHYCARDIA Last Admin: 01/27/19 22:35 Dose: 10 mg Diltiazem HCl (Cardizem -) 30 mg PO Q6HPO [facility] Last Admin: 02/10/19 12:14 Dose: 30 mg Furosemide (Lasix -) 20 mg PO DAILY [facility] Last Admin: 02/10/19 10:24 Dose: 20 mg Insulin Aspart (Novolog Vial Sliding Scale -) 1 vial SQ BIDI [facility]; Protocol Last Admin: 02/10/19 06:05 Dose: Not Given Lisinopril (Prinivil) 2.5 mg PO DAILY [facility] Last Admin: 02/10/19 10:24 Dose: 2.5 mg Metoprolol Tartrate (Lopressor -) 50 mg PO QID [facility] Last Admin: 02/10/19 14:09 Dose: 50 mg Pantoprazole Sodium (Protonix -) 20 mg PO BID [facility] Last Admin: 02/10/19 10:24 Dose: 20 mg Rivaroxaban (Xarelto) 20 mg PO DAILY@1800 [facility] Last Admin: 02/09/19 17:15 Dose: 20 mg - Objective Vital Signs: Vital Signs Temperature 99.1 F 02/10/19 13:00 Pulse Rate 94 H 02/10/19 13:00 Respiratory Rate 20 02/10/19 13:00 Blood Pressure 106/77 02/10/19 13:00 O2 Sat by Pulse Oximetry (%) 97 02/10/19 09:00 Constitutional: Yes: No Distress HENT: Yes: Atraumatic Neck: Yes: Supple Cardiovascular: Yes: Regular Rate and Rhythm Respiratory: Yes: CTA Bilaterally Gastrointestinal: Yes: Normal Bowel Sounds Extremities: Yes: WNL Edema: No Neurological: Yes: Alert, Oriented Labs: CBC, BMP 02/10/19 05:45 02/10/19 06:30 Problem List - Problems (1) Afib Assessment/Plan: on meds stable Code(s): I48.91 - UNSPECIFIED ATRIAL FIBRILLATION Qualifiers: Atrial fibrillation type: persistent (2) Ataxia Assessment/Plan: possible rehab Code(s): R27.0 - ATAXIA, UNSPECIFIED (3) Diabetes Assessment/Plan: insulin sliding scale and bgms Code(s): E11.9 - TYPE 2 DIABETES MELLITUS WITHOUT COMPLICATIONS (4) HTN (hypertension) Code(s): I10 - ESSENTIAL (PRIMARY) HYPERTENSION Qualifiers: Hypertension type: essential hypertension Qualified Code(s): I10 - Essential (primary) hypertension (5) Osteomyelitis Code(s): M86.9 - OSTEOMYELITIS, UNSPECIFIED (6) Schizophrenia Assessment/Plan: continue home meds Code(s): F20.9 - SCHIZOPHRENIA, UNSPECIFIED (7) Anemia Assessment/Plan: gi note reviewed, apparently patient is refusing procedure although psych said he cannot make informed decision/lacks capacity, as per dr alba patient can still refuse procedure . Code(s): D64.9 - ANEMIA, UNSPECIFIED Qualifiers: Anemia type: unspecified type Qualified Code(s): D64.9 - Anemia, unspecified (8) Septic arthritis Assessment/Plan: om n abx r/o septic arthritis vs arthritis/gout ortho consult Code(s): M00.9 - PYOGENIC ARTHRITIS, UNSPECIFIED
[2019-02-10 15:47] VITALS: BMI 21.7
[2019-02-10] MEDS: RIVAROXABAN 20 MG TABLET PO SCH (18:01)
--- NOTE | 2019-02-10 20:46 | CONSULT ---
Consult - text type - Consultation Consultation Note: 68yo male h/o afib on xarelto, schizophrenia, and L leg osteomyelitis presenting with ataxia asked to evaluate for anemia. Pt is a poor historian, reporting difficulty walking and poor balance prompting hospitalization. Cant move his rt. leg. Otherwise no complaints, cooperative with history though very tangential. Denies n/v, abdominal pain. Denies change in bowel pattern or rectal bleeding. - History Source History Provided By: Patient, Medical Record Limitations to Obtaining History: Poor Historian - Past Medical History Cardio/Vascular: Yes: AFIB, HTN Psych: Yes: Schizophrenia - Alcohol/Substance Use Hx Alcohol Use: No - Smoking History Smoking history: Former smoker Home Medications - Allergies Allergies/Adverse Reactions: Allergies Allergy/AdvReac Type Severity Reaction Status Date / Time chlorpromazine Allergy Verified 01/13/19 13:30 [From Thorazine] torazine Allergy Uncoded 01/13/19 09:56 - Home Medications Home Medications: Ambulatory Orders Acetaminophen [Tylenol] 650 mg PO Q6H PRN 09/05/18 Aripiprazole [Abilify -] 5 mg PO DAILY 09/05/18 Furosemide [Lasix] 20 mg PO DAILY 5 Days #5 tablet 12/09/18 Benztropine Mesylate [Cogentin -] 0.5 mg PO DAILY 01/13/19 Haloperidol [Haldol -] 0.5 mg PO DAILY 01/13/19 Insulin Sliding Scale [Novolog Vial Sliding Scale -] 0 unit SQ BID 01/13/19 Omeprazole Magnesium [Prilosec Otc] 20 mg PO BID 01/13/19 Metoprolol Tartrate [Lopressor -] 25 mg PO BID #60 tablet 01/16/19 Rivaroxaban [Xarelto -] 20 mg PO DAILY@1800 #30 tablet 01/16/19 Physical Exam-GI Vital Signs: AFVSS Constitutional: Yes: Well Nourished, No Distress, Calm, Other (AAOX3) Cardiovascular: Yes: WNL, Pulse Irregular Respiratory: Yes: WNL, Regular, CTA Bilaterally ...Palpate: Yes: Other (Abd soft, nt, nd +small incisional scar at epigastrium ( pt unclear of prior surgeries) Neuro -- RLE strength 1/5 A/P (1) Anemia Assessment/Plan: 68yo male h/o afib on xarelto, schizophrenia, HTN, DM<, HLD, past CVA and L leg osteomyelitis presenting with ataxia without acute CT findings asked to evaluate for anemia with microcytosis and prior evidence of iron deficiency. No overt bleeding. Refused GI procedures-- rediscuss Repeat iron studies/ferritin and accordingly replete IV iron 200mg QOD for 5 doses RLE weakness -- consult neuro ? past CVA
[2019-02-10] MEDS: BENZTROPINE MESYLATE 0.5 MG TABLET (FP) PO SCH (21:12)
[2019-02-11] MEDS: dilTIAZem HCL 30 MG TABLET (FP) PO SCH ×5 (00:10→23:54)
[2019-02-11] MEDS: INSULIN SLIDING SCALE (NOVOLOG) 1 VIAL SQ SCH ×2 (06:26→16:00)
[2019-02-11] MEDS ORDERED: PT OWN MED DRAWER 7, Y5N ONE (09:47)
[2019-02-11] MEDS: LISINOPRIL 5 MG TABLET (FP) PO SCH (09:48)
[2019-02-11] MEDS: ARIPiprazole 5 MG TABLET (FP) PO SCH (09:48)
[2019-02-11] MEDS: FUROSEMIDE 20 MG TABLET (FP) PO SCH (09:48)
[2019-02-11] MEDS: ACETAMINOPHEN 325 MG TABLET (FP) PO PRN (09:48)
[2019-02-11] MEDS: METOPROLOL TARTRATE 50 MG TABLET (FP) PO SCH ×4 (09:48→21:30)
[2019-02-11] MEDS: PANTOPRAZOLE 20 MG TABLET (FP) PO SCH ×2 (09:48→21:30)
--- NOTE | 2019-02-11 11:17 | PN ---
Progress Note, Physician Chief Complaint: Events noted AF rate variable History of Present Illness: Patient was seen and examined. Awake. Chart was reviewed Denies chest pain or SOB - Current Medication List Current Medications: Active Medications Acetaminophen (Tylenol -) 650 mg PO Q6H PRN PRN Reason: FEVER Last Admin: 02/11/19 09:48 Dose: 650 mg Aripiprazole (Abilify) 5 mg PO DAILY [facility] Last Admin: 02/11/19 09:48 Dose: 5 mg Benztropine Mesylate (Cogentin -) 0.5 mg PO HS [facility] Last Admin: 02/10/19 21:12 Dose: 0.5 mg Diltiazem HCl (Cardizem Injection -) 10 mg IVPUSH Q4H PRN PRN Reason: TACHYCARDIA Last Admin: 01/27/19 22:35 Dose: 10 mg Diltiazem HCl (Cardizem -) 30 mg PO Q6HPO [facility] Last Admin: 02/11/19 06:25 Dose: 30 mg Furosemide (Lasix -) 20 mg PO DAILY [facility] Last Admin: 02/11/19 09:48 Dose: 20 mg Insulin Aspart (Novolog Vial Sliding Scale -) 1 vial SQ BIDI [facility]; Protocol Last Admin: 02/11/19 06:26 Dose: 2 units Lisinopril (Prinivil) 2.5 mg PO DAILY [facility] Last Admin: 02/11/19 09:48 Dose: 2.5 mg Metoprolol Tartrate (Lopressor -) 50 mg PO QID [facility] Last Admin: 02/11/19 09:48 Dose: 50 mg Pantoprazole Sodium (Protonix -) 20 mg PO BID [facility] Last Admin: 02/11/19 09:48 Dose: 20 mg Rivaroxaban (Xarelto) 20 mg PO DAILY@1800 [facility] Last Admin: 02/10/19 18:01 Dose: 20 mg - Objective Vital Signs: Vital Signs Temperature 99.8 F H 02/11/19 10:00 Pulse Rate 92 H 02/11/19 10:00 Respiratory Rate 18 02/11/19 10:00 Blood Pressure 102/63 02/11/19 10:00 O2 Sat by Pulse Oximetry (%) 98 02/10/19 21:00 Eyes: Yes: PERRL HENT: Yes: Atraumatic Neck: Yes: Supple Cardiovascular: Yes: Pulse Irregular, S1, S2 Respiratory: Yes: Diminished Gastrointestinal: Yes: Normal Bowel Sounds, Soft. No: Tenderness Edema: No Additional Findings/Remarks: - Review of Systems Constitutional: denies: Chills, Fever Cardiovascular: denies Chest Pain. denies: Palpitations, Shortness of Breath Respiratory: denies: Cough, Hemoptysis, Orthopnea, PND, SOB, SOB on Exertion Gastrointestinal: denies: Abdominal Pain, Constipation, Diarrhea, Melena, Nausea , Rectal Bleeding, Vomiting Neurological: denies Dizziness, Headache. denies: Seizure, Syncope Labs: CBC, BMP 02/10/19 05:45 02/10/19 06:30 Problem List - Problems (1) Afib Code(s): I48.91 - UNSPECIFIED ATRIAL FIBRILLATION Qualifiers: Atrial fibrillation type: persistent (2) Anemia Code(s): D64.9 - ANEMIA, UNSPECIFIED Qualifiers: Anemia type: unspecified type Qualified Code(s): D64.9 - Anemia, unspecified (3) Demand ischemia Code(s): I24.8 - OTHER FORMS OF ACUTE ISCHEMIC HEART DISEASE (4) Diabetes Code(s): E11.9 - TYPE 2 DIABETES MELLITUS WITHOUT COMPLICATIONS (5) Diabetic peripheral vascular disease Code(s): E11.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 (6) HTN (hypertension) Code(s): I10 - ESSENTIAL (PRIMARY) HYPERTENSION Qualifiers: Hypertension type: essential hypertension Qualified Code(s): I10 - Essential (primary) hypertension (7) Schizophrenia Code(s): F20.9 - SCHIZOPHRENIA, UNSPECIFIED Assessment/Plan 1. Persistent AF with improved rate-control, [id number] score of 5 on DOAC 2. CAD with demand ischemia 3. Diastolic dysfunction with clinical class 0 NYHA classification heart failure 4. DM 5. HTN 6. Hypercholesterolemia 7. History of schizophrenia 8. History of osteomyelitis 9. History of CVA 10. 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 Hyponatremia PLAN: 1. Continue Lopressor 50 mg four times daily (may switch to Toprol-XL once patient is ready for discharge 2. Continue Prinivil 2.5 mg QD as tolerated 3. Continue Cardizem 30 mg four times daily (may switch to Cardizem CD once patient is ready for discharge) 4. Continue Xarelto 20 mg QD 5. Continue Lasix 20 mg QD with close monitoring of renal function and electrolytes 6. Continue empiric antibiotic course per EZE Calvert MD
[2019-02-11] MEDS: RIVAROXABAN 20 MG TABLET PO SCH (17:53)
--- NOTE | 2019-02-11 19:32 | PN ---
Progress Note, Physician - Current Medication List Current Medications: Active Medications Acetaminophen (Tylenol -) 650 mg PO Q6H PRN PRN Reason: FEVER Last Admin: 02/11/19 09:48 Dose: 650 mg Aripiprazole (Abilify) 5 mg PO DAILY [facility] Last Admin: 02/11/19 09:48 Dose: 5 mg Benztropine Mesylate (Cogentin -) 0.5 mg PO HS [facility] Last Admin: 02/10/19 21:12 Dose: 0.5 mg Diltiazem HCl (Cardizem Injection -) 10 mg IVPUSH Q4H PRN PRN Reason: TACHYCARDIA Last Admin: 01/27/19 22:35 Dose: 10 mg Diltiazem HCl (Cardizem -) 30 mg PO Q6HPO [facility] Last Admin: 02/11/19 17:53 Dose: 30 mg Furosemide (Lasix -) 20 mg PO DAILY [facility] Last Admin: 02/11/19 09:48 Dose: 20 mg Iron Sucrose 200 mg/ Sodium (Chloride) 100 mls @ 100 mls/hr IVPB Q48H [facility] Stop: 02/16/19 16:29 Insulin Aspart (Novolog Vial Sliding Scale -) 1 vial SQ BIDI [facility]; Protocol Last Admin: 02/11/19 16:00 Dose: 2 units Lisinopril (Prinivil) 2.5 mg PO DAILY [facility] Last Admin: 02/11/19 09:48 Dose: 2.5 mg Metoprolol Tartrate (Lopressor -) 50 mg PO QID [facility] Last Admin: 02/11/19 17:53 Dose: 50 mg Pantoprazole Sodium (Protonix -) 20 mg PO BID [facility] Last Admin: 02/11/19 09:48 Dose: 20 mg Rivaroxaban (Xarelto) 20 mg PO DAILY@1800 [facility] Last Admin: 02/11/19 17:53 Dose: 20 mg - Objective Vital Signs: Vital Signs Temperature 99.2 F 02/11/19 14:00 Pulse Rate 92 H 02/11/19 17:54 Respiratory Rate 19 02/11/19 17:54 Blood Pressure 96/69 02/11/19 17:54 O2 Sat by Pulse Oximetry (%) 98 02/11/19 09:00 Constitutional: Yes: No Distress HENT: Yes: Atraumatic Neck: Yes: Supple Cardiovascular: Yes: Regular Rate and Rhythm Respiratory: Yes: CTA Bilaterally Gastrointestinal: Yes: Normal Bowel Sounds Neurological: Yes: Alert, Oriented Labs: CBC, BMP 02/10/19 05:45 02/10/19 06:30 Problem List - Problems (1) Afib Assessment/Plan: on meds stable Code(s): I48.91 - UNSPECIFIED ATRIAL FIBRILLATION Qualifiers: Atrial fibrillation type: persistent (2) Ataxia Assessment/Plan: possible rehab Code(s): R27.0 - ATAXIA, UNSPECIFIED (3) Diabetes Assessment/Plan: insulin sliding scale and bgms Code(s): E11.9 - TYPE 2 DIABETES MELLITUS WITHOUT COMPLICATIONS (4) HTN (hypertension) Code(s): I10 - ESSENTIAL (PRIMARY) HYPERTENSION Qualifiers: Hypertension type: essential hypertension Qualified Code(s): I10 - Essential (primary) hypertension (5) Osteomyelitis Code(s): M86.9 - OSTEOMYELITIS, UNSPECIFIED (6) Schizophrenia Assessment/Plan: continue home meds Code(s): F20.9 - SCHIZOPHRENIA, UNSPECIFIED (7) Anemia Assessment/Plan: gi note reviewed, apparently patient is refusing procedure although psych said he cannot make informed decision/lacks capacity, as per dr alba patient can still refuse procedure . Code(s): D64.9 - ANEMIA, UNSPECIFIED Qualifiers: Anemia type: unspecified type Qualified Code(s): D64.9 - Anemia, unspecified (8) Septic arthritis Code(s): M00.9 - PYOGENIC ARTHRITIS, UNSPECIFIED
[2019-02-11] MEDS: IRON SUCROSE INJECTION 200 MG in SODIUM CHLORIDE 90 ML IVPB SCH (20:43)
[2019-02-11] MEDS: BENZTROPINE MESYLATE 0.5 MG TABLET (FP) PO SCH (21:30)
[2019-02-12] MEDS: dilTIAZem HCL 30 MG TABLET (FP) PO SCH ×3 (06:14→18:43)
[2019-02-12] MEDS: INSULIN SLIDING SCALE (NOVOLOG) 1 VIAL SQ SCH ×2 (06:15→18:39)
--- NOTE | 2019-02-12 08:54 | PN ---
Progress Note (short form) - Note Progress Note: History of Present Illness - History of Present Illness Initial Comments: Julio Theodore is a 68yM w PMHx HTN, DM, afib, schizohrenia, and L leg osteomyelitis presenting with ataxia. Pt is poor historian. He noticed trouble walking and balancing with R leg heaviness for the last 2 weeks. No leg pain. Went to a neurologist 6d ago propr to admission, told to go to ED for lung opacity. Denies recent alcohol use. Denies fever, cough, SOB, chest/AB pain, urinary/bowel mvmt changes. I was consulted by the emergency room resident regarding the case and advised admission for the patient; he completed noncontrast head CT which showed left frontal chronic infarct. Advised MRI brain to rule out new acute infarcts. MRI not able to be completed, reportedly with metal, ordered CT head and CT lumbar spine as well. Discussed with nurse. CT head completed and did not show any acute changes. CT of the lumbar spine also completed and reviewed no evidence of spondylolisthesis, no central spinal stenosis stenosis, no significant disc displacement arthritic changes noted, results reviewed with patient in detail. Patient remains in hospital and asked for follow up by heme/onc regarding RLE weakness. Patient not able to have MRI, multiple CAT scans did not show any acute changes but there was mention of left frontal chronic infarct likely etiology for his right leg weakness. May benefit from short-term rehabilitation and physical therapy. Would continue current medical optimization. Allergies Allergy/AdvReac Type Severity Reaction Status Date / Time chlorpromazine Allergy Verified 01/13/19 13:30 [From Thorazine] torazine Allergy Uncoded 01/13/19 09:56 Active Medications Acetaminophen (Tylenol -) 650 mg PO Q6H PRN PRN Reason: FEVER Last Admin: 02/11/19 09:48 Dose: 650 mg Aripiprazole (Abilify) 5 mg PO DAILY [facility] Last Admin: 02/11/19 09:48 Dose: 5 mg Benztropine Mesylate (Cogentin -) 0.5 mg PO HS [facility] Last Admin: 02/11/19 21:30 Dose: 0.5 mg Diltiazem HCl (Cardizem Injection -) 10 mg IVPUSH Q4H PRN PRN Reason: TACHYCARDIA Last Admin: 01/27/19 22:35 Dose: 10 mg Diltiazem HCl (Cardizem -) 30 mg PO Q6HPO [facility] Last Admin: 02/12/19 06:14 Dose: 30 mg Furosemide (Lasix -) 20 mg PO DAILY [facility] Last Admin: 02/11/19 09:48 Dose: 20 mg Iron Sucrose 200 mg/ Sodium (Chloride) 100 mls @ 100 mls/hr IVPB Q48H [facility] Stop: 02/16/19 16:29 Last Admin: 02/11/19 20:43 Dose: 100 mls/hr Insulin Aspart (Novolog Vial Sliding Scale -) 1 vial SQ BIDI [facility]; Protocol Last Admin: 02/12/19 06:15 Dose: 2 units Lisinopril (Prinivil) 2.5 mg PO DAILY [facility] Last Admin: 02/11/19 09:48 Dose: 2.5 mg Metoprolol Tartrate (Lopressor -) 50 mg PO QID [facility] Last Admin: 02/11/19 21:30 Dose: 50 mg Pantoprazole Sodium (Protonix -) 20 mg PO BID [facility] Last Admin: 02/11/19 21:30 Dose: 20 mg Rivaroxaban (Xarelto) 20 mg PO DAILY@1800 [facility] Last Admin: 02/11/19 17:53 Dose: 20 mg *Physical Exam Vital Signs Period Temp Pulse Resp BP Sys/Stock Pulse Ox Last 24 Hr 98.9 F-99.8 F 78-92 16-19 91-131/51-75 97-98 - Physical Exam General Appearance: Yes: Nourished, Appropriately Dressed. No: Apparent Distress HEENT: positive: EOMI, AARON, Hearing Grossly Normal. negative: Scleral Icterus (R), Scleral Icterus (L), Nasal Congestion, Rhinorrhea Respiratory/Chest: positive: Wheezing (RLL), Other (coarse breath sounds RLL). negative: Chest Tender, Respiratory Distress, Accessory Muscle Use, Labored Respiration, Crackles, Rales, Rhonchi, Stridor Cardiovascular: positive: Regular Rate, S1, S2, Irregular. negative: Edema, Murmur Vascular Pulses: Dorsalis-Pedis (R): 3+, Doralis-Pedis (L): 3+ Extremity: positive: Normal Capillary Refill, Swelling (+1 pitting edema to knees, L>R), Other (Legs: 3/5 strength R leg hip flexion, 5/5 L leg hip flexion , 5/5 darion dorsi/plantar flexion. Normal sensation, no LE rash, laceration, erythema). negative: Erythema Integumentary: positive: Normal Color. negative: Rash, Ecchymosis Neurologic: cranial nerves intact, right lower extremity 3/5 otherwise 5/5, sensory intact, finger to nose normal, gait deferred CBCD WBC 10.2 K/mm3 (4.0-10.0) H 02/10/19 05:45 RBC 3.51 M/mm3 (4.00-5.60) L 02/10/19 05:45 Hgb 8.1 GM/dL (11.7-16.9) L 02/10/19 05:45 Hct 25.2 % (35.4-49) L 02/10/19 05:45 MCV 71.8 fl (80-96) L 02/10/19 05:45 MCHC 32.1 g/dl (32.0-35.9) 02/10/19 05:45 RDW 24.6 % (11.9-15.9) H 02/10/19 05:45 Plt Count 468 K/MM3 (134-434) H 02/10/19 05:45 MPV 7.3 fl (7.5-11.1) L 02/10/19 05:45 CMP Sodium 132 mmol/L (136-145) L 02/10/19 06:30 Potassium 4.2 mmol/L (3.5-5.1) 02/10/19 06:30 Chloride 99 mmol/L (98-107) 02/10/19 06:30 Carbon Dioxide 29 mmol/L (21-32) 02/10/19 06:30 Anion Gap 4 MMOL/L (8-16) L 02/10/19 06:30 BUN 18.7 mg/dL (7-18) H 02/10/19 06:30 Creatinine 0.5 mg/dL (0.55-1.3) L 02/10/19 06:30 Random Glucose 120 mg/dL (74-106) H 02/10/19 06:30 Calcium 8.3 mg/dL (8.5-10.1) L 02/10/19 06:30 Total Bilirubin 0.7 mg/dL (0.2-1) 02/09/19 08:10 AST 44 U/L (15-37) H 02/09/19 08:10 ALT 59 U/L (13-61) 02/09/19 08:10 Alkaline Phosphatase 154 U/L (45-117) H 02/09/19 08:10 Total Protein 6.6 g/dl (6.4-8.2) 02/09/19 08:10 Albumin 1.7 g/dl (3.4-5.0) L 02/09/19 08:10 CARDIAC ENZYMES Creatine Kinase 29 U/L (26-308) 01/13/19 12:10 Troponin I 0.03 ng/ml (0.00-0.05) 01/17/19 21:00 Medical Decision Making Julio Theodore is a 68yM w PMHx HTN, DM, afib, schizohrenia, and L leg osteomyelitis presenting with ataxia. Pt is poor historian. He noticed trouble walking and balancing with R leg heaviness for the last 2 weeks. No leg pain. Went to a neurologist 6d ago prior to admission, told to go to ED for lung opacity. Denies recent alcohol use. Denies fever, cough, SOB, chest/AB pain, urinary/bowel mvmt changes. I was consulted by the emergency room resident regarding the case and advised admission for the patient he completed noncontrast head CT which showed left frontal chronic infarct. Advised MRI brain to rule out new acute infarcts.MRI not able to be completed, reportedly with metal, will order CT head and will check CT lumbar spine as well. Discussed with nurse. CT head completed and did not show any acute changes. CT of the lumbar spine also completed and reviewed no evidence of spondylolisthesis, no central spinal stenosis stenosis, no significant disc displacement arthritic changes noted. On multiple psych medications, mental status seems at baseline. Monitor blood pressure, maintain normotensive range. Patient remains in hospital and asked for follow up by heme/onc regarding RLE weakness. Patient not able to have MRI, multiple CAT scans did not show any acute changes but there was mention of left frontal chronic infarct likely etiology for his right leg weakness. May benefit from short-term rehabilitation and physical therapy. Would continue current medical optimization.
--- NOTE | 2019-02-12 09:26 | PN ---
Progress Note, Physician History of Present Illness: Afib with improved rate-control, asymptomatic and denies chest pain, dyspnea, palpitations. Afebrile, right knee effusion s/p tap, synovial fluid negative for septic joint. Patient lacks mental capacity to consent for procedures. - Current Medication List Current Medications: Active Medications Acetaminophen (Tylenol -) 650 mg PO Q6H PRN PRN Reason: FEVER Last Admin: 02/11/19 09:48 Dose: 650 mg Aripiprazole (Abilify) [address] [facility] Last Admin: 02/11/19 09:48 Dose: 5 mg Benztropine Mesylate (Cogentin -) 0.[address] [facility] Last Admin: 02/11/19 21:30 Dose: 0.5 mg Diltiazem HCl (Cardizem Injection -) 10 mg IVPUSH Q4H PRN PRN Reason: TACHYCARDIA Last Admin: 01/27/19 22:35 Dose: 10 mg Diltiazem HCl (Cardizem -) [address] [facility] Last Admin: 02/12/19 06:14 Dose: 30 mg Furosemide (Lasix -) [address] [facility] Last Admin: 02/11/19 09:48 Dose: 20 mg Iron Sucrose 200 mg/ Sodium (Chloride) 100 mls @ 100 mls/hr IVPB Q48H [facility] Stop: 02/16/19 16:29 Last Admin: 02/11/19 20:43 Dose: 100 mls/hr Insulin Aspart (Novolog Vial Sliding Scale -) [address] [facility]; Protocol Last Admin: 02/12/19 06:15 Dose: 2 units Lisinopril (Prinivil) 2.[address] [facility] Last Admin: 02/11/19 09:48 Dose: 2.5 mg Metoprolol Tartrate (Lopressor -) [address] [facility] Last Admin: 02/11/19 21:30 Dose: 50 mg Pantoprazole Sodium (Protonix -) [address] [facility] Last Admin: 02/11/19 21:30 Dose: 20 mg Rivaroxaban (Xarelto) 20 mg PO DAILY@1800 [facility] Last Admin: 02/11/19 17:53 Dose: 20 mg - Objective Vital Signs: Vital Signs Temperature 99.0 F 02/12/19 06:00 Pulse Rate 86 02/12/19 06:00 Respiratory Rate 18 10/16/19 06:00 Blood Pressure 97/70 02/12/19 06:00 O2 Sat by Pulse Oximetry (%) 97 02/11/19 21:00 Constitutional: Yes: No Distress, Calm Neck: Yes: Supple Cardiovascular: Yes: Pulse Irregular Respiratory: Yes: Regular, Diminished, On Nasal O2 Gastrointestinal: Yes: Normal Bowel Sounds, Soft Edema: No Labs: CBC, BMP 02/10/19 05:45 02/10/19 06:30 Problem List - Problems (1) Demand ischemia Code(s): I24.8 - OTHER FORMS OF ACUTE ISCHEMIC HEART DISEASE (2) Anemia Code(s): D64.9 - ANEMIA, UNSPECIFIED Qualifiers: Anemia type: unspecified type Qualified Code(s): D64.9 - Anemia, unspecified (3) Diastolic dysfunction Code(s): I51.89 - OTHER ILL-DEFINED HEART DISEASES (4) Afib Code(s): I48.91 - UNSPECIFIED ATRIAL FIBRILLATION Qualifiers: Atrial fibrillation type: persistent (5) HTN (hypertension) Code(s): I10 - ESSENTIAL (PRIMARY) HYPERTENSION Qualifiers: Hypertension type: essential hypertension Qualified Code(s): I10 - Essential (primary) hypertension (6) Schizophrenia Code(s): F20.9 - SCHIZOPHRENIA, UNSPECIFIED (7) Effusion, right knee Code(s): M25.461 - EFFUSION, RIGHT KNEE Assessment/Plan 01/22/2019 Echo: Normal and RV size and fxn LVEF 53%, mild TR RVSP 34 mmHg, tr- mild MR, normal biatrial sizes 1. Persistent AF with improved rate-control, [id number] score of 5 on DOAC 2. CAD with demand ischemia 3. Diastolic dysfunction with clinical class 0 NYHA classification heart failure 4. DM 5. HTN 6. Hypercholesterolemia 7. History of schizophrenia 8. History of osteomyelitis 9. History of CVA 10. 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 Hyponatremia PLAN: 1. Continue Lopressor 50 mg four times daily (may switch to Toprol-XL once patient is ready for discharge) 2. Continue Prinivil 2.5 mg QD as tolerated 3. Continue Cardizem 30 mg four times daily (may switch to Cardizem CD once patient is ready for discharge) 4. Continue Xarelto 20 mg QD 5. Continue Lasix 20 mg QD with close monitoring of renal function and electrolytes 6. Completed empiric antibiotic course per ID
[2019-02-12] MEDS: LISINOPRIL 5 MG TABLET (FP) PO SCH (09:47)
[2019-02-12] MEDS: ARIPiprazole 5 MG TABLET (FP) PO SCH (09:47)
[2019-02-12] MEDS: PANTOPRAZOLE 20 MG TABLET (FP) PO SCH ×2 (09:47→22:16)
[2019-02-12] MEDS: FUROSEMIDE 20 MG TABLET (FP) PO SCH (09:47)
[2019-02-12] MEDS: METOPROLOL TARTRATE 50 MG TABLET (FP) PO SCH ×5 (09:48→22:25)
--- NOTE | 2019-02-12 13:39 | PN ---
Progress Note, Physician History of Present Illness: knee tapped fluid negative for septic joint - Current Medication List Current Medications: Active Medications Acetaminophen (Tylenol -) 650 mg PO Q6H PRN PRN Reason: FEVER Last Admin: 02/11/19 09:48 Dose: 650 mg Aripiprazole (Abilify) 5 mg PO DAILY [facility] Last Admin: 02/12/19 09:47 Dose: 5 mg Benztropine Mesylate (Cogentin -) 0.5 mg PO HS [facility] Last Admin: 02/11/19 21:30 Dose: 0.5 mg Diltiazem HCl (Cardizem Injection -) 10 mg IVPUSH Q4H PRN PRN Reason: TACHYCARDIA Last Admin: 01/27/19 22:35 Dose: 10 mg Diltiazem HCl (Cardizem -) 30 mg PO Q6HPO [facility] Last Admin: 02/12/19 06:14 Dose: 30 mg Furosemide (Lasix -) 20 mg PO DAILY [facility] Last Admin: 02/12/19 09:47 Dose: 20 mg Iron Sucrose 200 mg/ Sodium (Chloride) 100 mls @ 100 mls/hr IVPB Q48H [facility] Stop: 02/16/19 16:29 Last Admin: 02/11/19 20:43 Dose: 100 mls/hr Insulin Aspart (Novolog Vial Sliding Scale -) 1 vial SQ BIDI [facility]; Protocol Last Admin: 02/12/19 06:15 Dose: 2 units Lisinopril (Prinivil) 2.5 mg PO DAILY [facility] Last Admin: 02/12/19 09:47 Dose: 2.5 mg Metoprolol Tartrate (Lopressor -) 50 mg PO QID [facility] Last Admin: 02/12/19 09:50 Dose: Not Given Pantoprazole Sodium (Protonix -) 20 mg PO BID [facility] Last Admin: 02/12/19 09:47 Dose: 20 mg Rivaroxaban (Xarelto) 20 mg PO DAILY@1800 [facility] Last Admin: 02/11/19 17:53 Dose: 20 mg - Objective Vital Signs: Vital Signs Temperature 98.9 F 02/12/19 10:00 Pulse Rate 84 02/12/19 10:00 Respiratory Rate 18 02/12/19 10:00 Blood Pressure 102/68 02/12/19 10:00 O2 Sat by Pulse Oximetry (%) 100 02/12/19 09:00 Constitutional: Yes: No Distress, Calm Cardiovascular: Yes: Pulse Irregular Respiratory: Yes: Regular, CTA Bilaterally Gastrointestinal: Yes: Normal Bowel Sounds, Soft Musculoskeletal: Yes: WNL Extremities: Yes: Other Neurological: Yes: Alert Psychiatric: Yes: Alert Labs: CBC, BMP 02/10/19 05:45 02/10/19 06:30 Assessment/Plan Assessment/Plan Problem List - Problems (1) Afib Code(s): I48.91 - UNSPECIFIED ATRIAL FIBRILLATION Qualifiers: Atrial fibrillation type: chronic Qualified Code(s): I48.2 - Chronic atrial fibrillation (2) Ataxia Code(s): R27.0 - ATAXIA, UNSPECIFIED (3) Diabetes Code(s): E11.9 - TYPE 2 DIABETES MELLITUS WITHOUT COMPLICATIONS (4) HTN (hypertension) Code(s): I10 - ESSENTIAL (PRIMARY) HYPERTENSION (5) Osteomyelitis Code(s): M86.9 - OSTEOMYELITIS, UNSPECIFIED (6) Schizophrenia Code(s): F20.9 - SCHIZOPHRENIA, UNSPECIFIED plan continue current mgmt monitor heart rate rest as per the team knee tap results noted
--- NOTE | 2019-02-12 18:02 | PN ---
Progress Note, Physician - Current Medication List Current Medications: Active Medications Acetaminophen (Tylenol -) 650 mg PO Q6H PRN PRN Reason: FEVER Last Admin: 02/11/19 09:48 Dose: 650 mg Aripiprazole (Abilify) 5 mg PO DAILY [facility] Last Admin: 02/12/19 09:47 Dose: 5 mg Benztropine Mesylate (Cogentin -) 0.5 mg PO HS [facility] Last Admin: 02/11/19 21:30 Dose: 0.5 mg Diltiazem HCl (Cardizem Injection -) 10 mg IVPUSH Q4H PRN PRN Reason: TACHYCARDIA Last Admin: 01/27/19 22:35 Dose: 10 mg Diltiazem HCl (Cardizem -) 30 mg PO Q6HPO [facility] Last Admin: 02/12/19 13:00 Dose: 30 mg Furosemide (Lasix -) 20 mg PO DAILY [facility] Last Admin: 02/12/19 09:47 Dose: 20 mg Iron Sucrose 200 mg/ Sodium (Chloride) 100 mls @ 100 mls/hr IVPB Q48H [facility] Stop: 02/16/19 16:29 Last Admin: 02/11/19 20:43 Dose: 100 mls/hr Insulin Aspart (Novolog Vial Sliding Scale -) 1 vial SQ BIDI [facility]; Protocol Last Admin: 02/12/19 06:15 Dose: 2 units Lisinopril (Prinivil) 2.5 mg PO DAILY [facility] Last Admin: 02/12/19 09:47 Dose: 2.5 mg Metoprolol Tartrate (Lopressor -) 50 mg PO QID [facility] Last Admin: 02/12/19 15:03 Dose: Not Given Pantoprazole Sodium (Protonix -) 20 mg PO BID [facility] Last Admin: 02/12/19 09:47 Dose: 20 mg Rivaroxaban (Xarelto) 20 mg PO DAILY@1800 [facility] Last Admin: 02/11/19 17:53 Dose: 20 mg - Objective Vital Signs: Vital Signs Temperature 99 F 02/12/19 13:52 Pulse Rate 86 02/12/19 13:52 Respiratory Rate 18 02/12/19 13:52 Blood Pressure 93/64 02/12/19 13:52 O2 Sat by Pulse Oximetry (%) 100 02/12/19 09:00 HENT: Yes: Atraumatic Neck: Yes: Supple Cardiovascular: Yes: Regular Rate and Rhythm Respiratory: Yes: CTA Bilaterally Gastrointestinal: Yes: Normal Bowel Sounds Extremities: Yes: WNL Edema: No Peripheral Pulses WNL: Yes Neurological: Yes: Alert, Oriented Labs: CBC, BMP 02/10/19 05:45 02/10/19 06:30 Problem List - Problems (1) Afib Assessment/Plan: on meds stable Code(s): I48.91 - UNSPECIFIED ATRIAL FIBRILLATION Qualifiers: Atrial fibrillation type: persistent (2) Ataxia Assessment/Plan: possible rehab Code(s): R27.0 - ATAXIA, UNSPECIFIED (3) Diabetes Assessment/Plan: insulin sliding scale and bgms Code(s): E11.9 - TYPE 2 DIABETES MELLITUS WITHOUT COMPLICATIONS (4) HTN (hypertension) Code(s): I10 - ESSENTIAL (PRIMARY) HYPERTENSION Qualifiers: Hypertension type: essential hypertension Qualified Code(s): I10 - Essential (primary) hypertension (5) Osteomyelitis Code(s): M86.9 - OSTEOMYELITIS, UNSPECIFIED (6) Schizophrenia Assessment/Plan: continue home meds Code(s): F20.9 - SCHIZOPHRENIA, UNSPECIFIED (7) Anemia Assessment/Plan: gi note reviewed, apparently patient is refusing procedure although psych said he cannot make informed decision/lacks capacity, as per dr alba patient can still refuse procedure . Code(s): D64.9 - ANEMIA, UNSPECIFIED Qualifiers: Anemia type: unspecified type Qualified Code(s): D64.9 - Anemia, unspecified (8) Septic arthritis Code(s): M00.9 - PYOGENIC ARTHRITIS, UNSPECIFIED
[2019-02-12] MEDS: RIVAROXABAN 20 MG TABLET PO SCH (18:41)
[2019-02-12] MEDS: BENZTROPINE MESYLATE 0.5 MG TABLET (FP) PO SCH (22:17)
[2019-02-13] MEDS: dilTIAZem HCL 30 MG TABLET (FP) PO SCH ×4 (00:11→17:43)
[2019-02-13] MEDS: INSULIN SLIDING SCALE (NOVOLOG) 1 VIAL SQ SCH ×2 (06:26→17:00)
--- NOTE | 2019-02-13 09:16 | PN ---
Progress Note, Physician History of Present Illness: Afib with improved rate-control, asymptomatic and denies chest pain, dyspnea, palpitations. Afebrile, right knee effusion s/p tap, synovial fluid negative for septic joint. Patient lacks mental capacity to consent for procedures. - Current Medication List Current Medications: Active Medications Acetaminophen (Tylenol -) 650 mg PO Q6H PRN PRN Reason: FEVER Last Admin: 02/11/19 09:48 Dose: 650 mg Aripiprazole (Abilify) 5 mg PO DAILY [facility] Last Admin: 02/12/19 09:47 Dose: 5 mg Benztropine Mesylate (Cogentin -) 0.5 mg PO HS [facility] Last Admin: 02/12/19 22:17 Dose: 0.5 mg Diltiazem HCl (Cardizem Injection -) 10 mg IVPUSH Q4H PRN PRN Reason: TACHYCARDIA Last Admin: 01/27/19 22:35 Dose: 10 mg Diltiazem HCl (Cardizem -) 30 mg PO Q6HPO [facility] Last Admin: 02/13/19 06:23 Dose: 30 mg Furosemide (Lasix -) 20 mg PO DAILY [facility] Last Admin: 02/12/19 09:47 Dose: 20 mg Iron Sucrose 200 mg/ Sodium (Chloride) 100 mls @ 100 mls/hr IVPB Q48H [facility] Stop: 02/16/19 16:29 Last Admin: 02/11/19 20:43 Dose: 100 mls/hr Insulin Aspart (Novolog Vial Sliding Scale -) 1 vial SQ BIDI [facility]; Protocol Last Admin: 02/13/19 06:26 Dose: 2 units Lisinopril (Prinivil) 2.5 mg PO DAILY [facility] Last Admin: 02/12/19 09:47 Dose: 2.5 mg Metoprolol Tartrate (Lopressor -) 50 mg PO QID [facility] Last Admin: 02/12/19 22:25 Dose: Not Given Pantoprazole Sodium (Protonix -) 20 mg PO BID [facility] Last Admin: 02/12/19 22:16 Dose: 20 mg Rivaroxaban (Xarelto) 20 mg PO DAILY@1800 [facility] Last Admin: 02/12/19 18:41 Dose: 20 mg - Objective Vital Signs: Vital Signs Temperature 98.8 F 02/13/19 06:00 Pulse Rate 101 H 02/13/19 06:00 Respiratory Rate 18 02/13/19 06:00 Blood Pressure 97/62 02/13/19 06:00 O2 Sat by Pulse Oximetry (%) 100 02/12/19 20:40 Constitutional: Yes: No Distress, Calm Neck: Yes: Supple Cardiovascular: Yes: Pulse Irregular Respiratory: Yes: Regular, CTA Bilaterally Gastrointestinal: Yes: Normal Bowel Sounds, Soft Edema: No Labs: CBC, BMP 02/10/19 05:45 02/10/19 06:30 - ....Imaging EKG: Report Reviewed (Tele: Rate-controlled afib) Problem List - Problems (1) Demand ischemia Code(s): I24.8 - OTHER FORMS OF ACUTE ISCHEMIC HEART DISEASE (2) Anemia Code(s): D64.9 - ANEMIA, UNSPECIFIED Qualifiers: Anemia type: unspecified type Qualified Code(s): D64.9 - Anemia, unspecified (3) Diastolic dysfunction Code(s): I51.89 - OTHER ILL-DEFINED HEART DISEASES (4) Afib Code(s): I48.91 - UNSPECIFIED ATRIAL FIBRILLATION Qualifiers: Atrial fibrillation type: persistent (5) HTN (hypertension) Code(s): I10 - ESSENTIAL (PRIMARY) HYPERTENSION Qualifiers: Hypertension type: essential hypertension Qualified Code(s): I10 - Essential (primary) hypertension (6) Schizophrenia Code(s): F20.9 - SCHIZOPHRENIA, UNSPECIFIED (7) Effusion, right knee Code(s): M25.461 - EFFUSION, RIGHT KNEE Assessment/Plan 01/22/2019 Echo: Normal and RV size and fxn LVEF 53%, mild TR RVSP 34 mmHg, tr- mild MR, normal biatrial sizes 1. Persistent AF with improved rate-control, [id number] score of 5 on DOAC 2. CAD with demand ischemia 3. Diastolic dysfunction with clinical class 0 NYHA classification heart failure 4. DM 5. HTN 6. Hypercholesterolemia 7. History of schizophrenia 8. History of osteomyelitis 9. History of CVA 10. 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 Hyponatremia PLAN: 1. Continue Lopressor 50 mg four times daily (may switch to Toprol-XL once patient is ready for discharge) 2. Continue Prinivil 2.5 mg QD as tolerated 3. Continue Cardizem 30 mg four times daily (may switch to Cardizem CD once patient is ready for discharge) 4. Continue Xarelto 20 mg QD 5. Continue Lasix 20 mg QD with close monitoring of renal function and electrolytes 6. Completed empiric antibiotic course per ID
[2019-02-13] MEDS: PANTOPRAZOLE 20 MG TABLET (FP) PO SCH ×2 (10:11→22:09)
[2019-02-13] MEDS: ARIPiprazole 5 MG TABLET (FP) PO SCH (10:12)
[2019-02-13] MEDS: METOPROLOL TARTRATE 50 MG TABLET (FP) PO SCH ×4 (10:12→22:09)
[2019-02-13] MEDS: LISINOPRIL 5 MG TABLET (FP) PO SCH (10:12)
[2019-02-13] MEDS: FUROSEMIDE 20 MG TABLET (FP) PO SCH (10:12)
[2019-02-13] MEDS: IRON SUCROSE INJECTION 200 MG in SODIUM CHLORIDE 90 ML IVPB SCH (16:42)
--- NOTE | 2019-02-13 17:27 | PN ---
Progress Note, Physician - Current Medication List Current Medications: Active Medications Acetaminophen (Tylenol -) 650 mg PO Q6H PRN PRN Reason: FEVER Last Admin: 02/11/19 09:48 Dose: 650 mg Aripiprazole (Abilify) 5 mg PO DAILY [facility] Last Admin: 02/13/19 10:12 Dose: 5 mg Benztropine Mesylate (Cogentin -) 0.5 mg PO HS [facility] Last Admin: 02/12/19 22:17 Dose: 0.5 mg Diltiazem HCl (Cardizem Injection -) 10 mg IVPUSH Q4H PRN PRN Reason: TACHYCARDIA Last Admin: 01/27/19 22:35 Dose: 10 mg Diltiazem HCl (Cardizem -) 30 mg PO Q6HPO [facility] Last Admin: 02/13/19 12:58 Dose: 30 mg Furosemide (Lasix -) 20 mg PO DAILY [facility] Last Admin: 02/13/19 10:12 Dose: 20 mg Iron Sucrose 200 mg/ Sodium (Chloride) 100 mls @ 100 mls/hr IVPB Q48H [facility] Stop: 02/16/19 16:29 Last Admin: 02/13/19 16:42 Dose: 100 mls/hr Insulin Aspart (Novolog Vial Sliding Scale -) 1 vial SQ BIDI [facility]; Protocol Last Admin: 02/13/19 06:26 Dose: 2 units Lisinopril (Prinivil) 2.5 mg PO DAILY [facility] Last Admin: 02/13/19 10:12 Dose: 2.5 mg Metoprolol Tartrate (Lopressor -) 50 mg PO QID [facility] Last Admin: 02/13/19 15:46 Dose: Not Given Pantoprazole Sodium (Protonix -) 20 mg PO BID [facility] Last Admin: 02/13/19 10:11 Dose: 20 mg Rivaroxaban (Xarelto) 20 mg PO DAILY@1800 [facility] Last Admin: 02/12/19 18:41 Dose: 20 mg - Objective Vital Signs: Vital Signs Temperature 98.8 F 02/13/19 06:00 Pulse Rate 101 H 02/13/19 06:00 Respiratory Rate 18 02/13/19 06:00 Blood Pressure 97/62 02/13/19 06:00 O2 Sat by Pulse Oximetry (%) 100 02/12/19 20:40 Constitutional: Yes: No Distress HENT: Yes: Atraumatic Neck: Yes: Supple Cardiovascular: Yes: Regular Rate and Rhythm Respiratory: Yes: CTA Bilaterally Gastrointestinal: Yes: Normal Bowel Sounds Extremities: Yes: WNL Neurological: Yes: Alert, Oriented Labs: CBC, BMP 02/10/19 05:45 02/10/19 06:30 Problem List - Problems (1) Afib Assessment/Plan: on meds stable Code(s): I48.91 - UNSPECIFIED ATRIAL FIBRILLATION Qualifiers: Atrial fibrillation type: persistent (2) Ataxia Assessment/Plan: possible rehab Code(s): R27.0 - ATAXIA, UNSPECIFIED (3) Diabetes Assessment/Plan: insulin sliding scale and bgms Code(s): E11.9 - TYPE 2 DIABETES MELLITUS WITHOUT COMPLICATIONS (4) HTN (hypertension) Code(s): I10 - ESSENTIAL (PRIMARY) HYPERTENSION Qualifiers: Hypertension type: essential hypertension Qualified Code(s): I10 - Essential (primary) hypertension (5) Osteomyelitis Code(s): M86.9 - OSTEOMYELITIS, UNSPECIFIED (6) Schizophrenia Code(s): F20.9 - SCHIZOPHRENIA, UNSPECIFIED (7) Anemia Assessment/Plan: iv iron per heme...total of 5 doses Code(s): D64.9 - ANEMIA, UNSPECIFIED Qualifiers: Anemia type: unspecified type Qualified Code(s): D64.9 - Anemia, unspecified (8) Septic arthritis Code(s): M00.9 - PYOGENIC ARTHRITIS, UNSPECIFIED
[2019-02-13] MEDS: RIVAROXABAN 20 MG TABLET PO SCH (17:44)
[2019-02-13] MEDS: BENZTROPINE MESYLATE 0.5 MG TABLET (FP) PO SCH (22:09)
[2019-02-14] MEDS: dilTIAZem HCL 30 MG TABLET (FP) PO SCH ×4 (00:25→17:07)
[2019-02-14] MEDS: INSULIN SLIDING SCALE (NOVOLOG) 1 VIAL SQ SCH ×2 (07:00→16:59)
[2019-02-14] MEDS: LISINOPRIL 5 MG TABLET (FP) PO SCH (09:38)
[2019-02-14] MEDS: ARIPiprazole 5 MG TABLET (FP) PO SCH (09:38)
[2019-02-14] MEDS: PANTOPRAZOLE 20 MG TABLET (FP) PO SCH ×2 (09:38→21:17)
[2019-02-14] MEDS: METOPROLOL TARTRATE 50 MG TABLET (FP) PO SCH ×4 (09:38→21:17)
[2019-02-14] MEDS: FUROSEMIDE 20 MG TABLET (FP) PO SCH (09:38)
--- NOTE | 2019-02-14 14:35 | PN ---
Progress Note, Physician History of Present Illness: Afib with improved rate-control, asymptomatic and denies chest pain, dyspnea, palpitations. Afebrile, right knee effusion s/p tap, synovial fluid negative for septic joint. Patient lacks mental capacity to consent for procedures. - Current Medication List Current Medications: Active Medications Acetaminophen (Tylenol -) 650 mg PO Q6H PRN PRN Reason: FEVER Last Admin: 02/11/19 09:48 Dose: 650 mg Aripiprazole (Abilify) 5 mg PO DAILY [facility] Last Admin: 02/14/19 09:38 Dose: 5 mg Benztropine Mesylate (Cogentin -) 0.5 mg PO HS [facility] Last Admin: 02/13/19 22:09 Dose: 0.5 mg Diltiazem HCl (Cardizem Injection -) 10 mg IVPUSH Q4H PRN PRN Reason: TACHYCARDIA Last Admin: 01/27/19 22:35 Dose: 10 mg Diltiazem HCl (Cardizem -) 30 mg PO Q6HPO [facility] Last Admin: 02/14/19 12:17 Dose: 30 mg Furosemide (Lasix -) 20 mg PO DAILY [facility] Last Admin: 02/14/19 09:38 Dose: 20 mg Iron Sucrose 200 mg/ Sodium (Chloride) 100 mls @ 100 mls/hr IVPB Q48H [facility] Stop: 02/16/19 16:29 Last Admin: 02/13/19 16:42 Dose: 100 mls/hr Insulin Aspart (Novolog Vial Sliding Scale -) 1 vial SQ BIDI [facility]; Protocol Last Admin: 02/14/19 07:00 Dose: 2 units Lisinopril (Prinivil) 2.5 mg PO DAILY [facility] Last Admin: 02/14/19 09:38 Dose: 2.5 mg Metoprolol Tartrate (Lopressor -) 50 mg PO QID [facility] Last Admin: 02/14/19 09:38 Dose: 50 mg Pantoprazole Sodium (Protonix -) 20 mg PO BID [facility] Last Admin: 02/14/19 09:38 Dose: 20 mg Rivaroxaban (Xarelto) 20 mg PO DAILY@1800 [facility] Last Admin: 02/13/19 17:44 Dose: 20 mg - Objective Vital Signs: Vital Signs Temperature 98.2 F 02/14/19 06:00 Pulse Rate 85 02/14/19 06:00 Respiratory Rate 22 H 02/14/19 06:00 Blood Pressure 108/72 02/14/19 06:00 O2 Sat by Pulse Oximetry (%) 100 02/14/19 09:00 Constitutional: Yes: No Distress, Calm, Thin Neck: Yes: Supple Cardiovascular: Yes: Pulse Irregular Respiratory: Yes: Regular, Diminished, On Nasal O2 Gastrointestinal: Yes: Normal Bowel Sounds, Soft Edema: No Labs: CBC, BMP 02/10/19 05:45 02/10/19 06:30 - ....Imaging EKG: Report Reviewed (Tele: Rate-controlled afib) Problem List - Problems (1) Demand ischemia Code(s): I24.8 - OTHER FORMS OF ACUTE ISCHEMIC HEART DISEASE (2) Anemia Code(s): D64.9 - ANEMIA, UNSPECIFIED Qualifiers: Anemia type: unspecified type Qualified Code(s): D64.9 - Anemia, unspecified (3) Diastolic dysfunction Code(s): I51.89 - OTHER ILL-DEFINED HEART DISEASES (4) Afib Code(s): I48.91 - UNSPECIFIED ATRIAL FIBRILLATION Qualifiers: Atrial fibrillation type: persistent (5) HTN (hypertension) Code(s): I10 - ESSENTIAL (PRIMARY) HYPERTENSION Qualifiers: Hypertension type: essential hypertension Qualified Code(s): I10 - Essential (primary) hypertension (6) Schizophrenia Code(s): F20.9 - SCHIZOPHRENIA, UNSPECIFIED (7) Effusion, right knee Code(s): M25.461 - EFFUSION, RIGHT KNEE Assessment/Plan 01/22/2019 Echo: Normal and RV size and fxn LVEF 53%, mild TR RVSP 34 mmHg, tr- mild MR, normal biatrial sizes 1. Persistent AF with improved rate-control, [id number] score of 5 on DOAC 2. CAD with demand ischemia 3. Diastolic dysfunction with clinical class 0 NYHA classification heart failure 4. DM 5. HTN 6. Hypercholesterolemia 7. History of schizophrenia 8. History of osteomyelitis 9. History of CVA 10. 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 Hyponatremia PLAN: 1. Continue Lopressor 50 mg four times daily (may switch to Toprol-XL once patient is ready for discharge) 2. Continue Prinivil 2.5 mg QD as tolerated 3. Continue Cardizem 30 mg four times daily (may switch to Cardizem CD once patient is ready for discharge) 4. Continue Xarelto 20 mg QD 5. Continue Lasix 20 mg QD with close monitoring of renal function and electrolytes 6. Completed empiric antibiotic course per ID
[2019-02-14] MEDS: RIVAROXABAN 20 MG TABLET PO SCH (17:07)
--- NOTE | 2019-02-14 19:40 | PN ---
Progress Note, Physician History of Present Illness: doing well - Current Medication List Current Medications: Active Medications Acetaminophen (Tylenol -) 650 mg PO Q6H PRN PRN Reason: FEVER Last Admin: 02/11/19 09:48 Dose: 650 mg Aripiprazole (Abilify) 5 mg PO DAILY [facility] Last Admin: 02/14/19 09:38 Dose: 5 mg Benztropine Mesylate (Cogentin -) 0.5 mg PO HS [facility] Last Admin: 02/13/19 22:09 Dose: 0.5 mg Diltiazem HCl (Cardizem Injection -) 10 mg IVPUSH Q4H PRN PRN Reason: TACHYCARDIA Last Admin: 01/27/19 22:35 Dose: 10 mg Diltiazem HCl (Cardizem -) 30 mg PO Q6HPO [facility] Last Admin: 02/14/19 17:07 Dose: 30 mg Furosemide (Lasix -) 20 mg PO DAILY [facility] Last Admin: 02/14/19 09:38 Dose: 20 mg Iron Sucrose 200 mg/ Sodium (Chloride) 100 mls @ 100 mls/hr IVPB Q48H [facility] Stop: 02/16/19 16:29 Last Admin: 02/13/19 16:42 Dose: 100 mls/hr Insulin Aspart (Novolog Vial Sliding Scale -) 1 vial SQ BIDI [facility]; Protocol Last Admin: 02/14/19 16:59 Dose: Not Given Lisinopril (Prinivil) 2.5 mg PO DAILY [facility] Last Admin: 02/14/19 09:38 Dose: 2.5 mg Metoprolol Tartrate (Lopressor -) 50 mg PO QID [facility] Last Admin: 02/14/19 17:07 Dose: 50 mg Pantoprazole Sodium (Protonix -) 20 mg PO BID [facility] Last Admin: 02/14/19 09:38 Dose: 20 mg Rivaroxaban (Xarelto) 20 mg PO DAILY@1800 [facility] Last Admin: 02/14/19 17:07 Dose: 20 mg - Objective Vital Signs: Vital Signs Temperature 97.8 F 02/14/19 18:00 Pulse Rate 71 02/14/19 18:00 Respiratory Rate 18 02/14/19 18:00 Blood Pressure 97/53 L 02/14/19 18:00 O2 Sat by Pulse Oximetry (%) 100 02/14/19 09:00 Constitutional: Yes: No Distress HENT: Yes: Atraumatic Neck: Yes: Supple Cardiovascular: Yes: Regular Rate and Rhythm Respiratory: Yes: CTA Bilaterally Gastrointestinal: Yes: Normal Bowel Sounds Extremities: Yes: WNL Edema: No Peripheral Pulses WNL: Yes Neurological: Yes: Alert Labs: CBC, BMP 02/10/19 05:45 02/10/19 06:30 Problem List - Problems (1) Afib Assessment/Plan: on meds stable Code(s): I48.91 - UNSPECIFIED ATRIAL FIBRILLATION Qualifiers: Atrial fibrillation type: persistent (2) Ataxia Assessment/Plan: possible rehab Code(s): R27.0 - ATAXIA, UNSPECIFIED (3) Diabetes Assessment/Plan: insulin sliding scale and bgms Code(s): E11.9 - TYPE 2 DIABETES MELLITUS WITHOUT COMPLICATIONS (4) HTN (hypertension) Code(s): I10 - ESSENTIAL (PRIMARY) HYPERTENSION Qualifiers: Hypertension type: essential hypertension Qualified Code(s): I10 - Essential (primary) hypertension (5) Osteomyelitis Code(s): M86.9 - OSTEOMYELITIS, UNSPECIFIED (6) Schizophrenia Assessment/Plan: continue home meds Code(s): F20.9 - SCHIZOPHRENIA, UNSPECIFIED (7) Anemia Assessment/Plan: iv iron per heme...total of 5 doses Code(s): D64.9 - ANEMIA, UNSPECIFIED Qualifiers: Anemia type: unspecified type Qualified Code(s): D64.9 - Anemia, unspecified (8) Septic arthritis Assessment/Plan: completed abx course Code(s): M00.9 - PYOGENIC ARTHRITIS, UNSPECIFIED
[2019-02-14] MEDS: BENZTROPINE MESYLATE 0.5 MG TABLET (FP) PO SCH (21:17)
[2019-02-15] MEDS: dilTIAZem HCL 30 MG TABLET (FP) PO SCH ×4 (01:12→17:02)
[2019-02-15] MEDS: INSULIN SLIDING SCALE (NOVOLOG) 1 VIAL SQ SCH ×2 (06:24→17:37)
--- NOTE | 2019-02-15 06:35 | PN ---
Progress Note (short form) - Note Progress Note: Chief Complaint: Events noted, notes reviewed, denies any chest discomfort, denies any dyspnea, atrial fibrillation is persistent with controlled ventricular rates History of Present Illness: Seen and examined on telemetry. Events noted, notes reviewed, denies any chest discomfort, denies any dyspnea, atrial fibrillation is persistent with controlled ventricular rates Medications: Current Medications Acetaminophen (Tylenol -) 650 mg PO Q6H PRN PRN Reason: FEVER Last Admin: 02/11/19 09:48 Dose: 650 mg Aripiprazole (Abilify) 5 mg PO DAILY [facility] Last Admin: 02/14/19 09:38 Dose: 5 mg Benztropine Mesylate (Cogentin -) 0.5 mg PO HS [facility] Last Admin: 02/14/19 21:17 Dose: 0.5 mg Diltiazem HCl (Cardizem Injection -) 10 mg IVPUSH Q4H PRN PRN Reason: TACHYCARDIA Last Admin: 01/27/19 22:35 Dose: 10 mg Diltiazem HCl (Cardizem -) 30 mg PO Q6HPO [facility] Last Admin: 02/15/19 06:19 Dose: 30 mg Furosemide (Lasix -) 20 mg PO DAILY [facility] Last Admin: 02/14/19 09:38 Dose: 20 mg Iron Sucrose 200 mg/ Sodium (Chloride) 100 mls @ 100 mls/hr IVPB Q48H [facility] Stop: 02/16/19 16:29 Last Admin: 02/13/19 16:42 Dose: 100 mls/hr Insulin Aspart (Novolog Vial Sliding Scale -) 1 vial SQ BIDI [facility]; Protocol Last Admin: 02/15/19 06:24 Dose: Not Given Lisinopril (Prinivil) 2.5 mg PO DAILY [facility] Last Admin: 02/14/19 09:38 Dose: 2.5 mg Metoprolol Tartrate (Lopressor -) 50 mg PO QID [facility] Last Admin: 02/14/19 21:17 Dose: 50 mg Pantoprazole Sodium (Protonix -) 20 mg PO BID [facility] Last Admin: 02/14/19 21:17 Dose: 20 mg Rivaroxaban (Xarelto) 20 mg PO DAILY@1800 [facility] Last Admin: 02/14/19 17:07 Dose: 20 mg Review of Systems - Review of Systems Constitutional: No symptoms reported Respiratory: denies: Cough or Sputum Production Cardiovascular: as noted above Gastrointestinal: denies Nausea, Vomiting, Diarrhea, Constipation or Abdominal Pain Genitourinary: No symptoms reported Musculoskeletal: No symptoms reported Endocrine: No symptoms reported Vital Signs: Last Vital Signs Temp Pulse Resp BP Pulse Ox 97.8 F 87 18 107/64 100 02/14/19 18:00 02/15/19 02:00 02/15/19 02:00 02/15/19 02:00 02/14/19 20:16 Intake & Output 02/12/19 02/13/19 02/14/19 02/15/19 23:59 23:59 23:59 23:59 Intake Total 628 058 5727 Output Total 2200 900 1550 Balance -1510 -60 -290 Weight 178 lb 178 lb Constitutional: No Distress, Calm Neck: Supple Negative JVD No Bruit Respiratory: Diminished Breath Sounds at the Bases Cardiovascular: S1 S2 irregularly irregular Gastrointestinal: Soft Benign Normal Bowel Sounds Ext: No Edema Labs: CBC, BMP 02/10/19 05:45 02/10/19 06:30 Hepatic Panel Total Bilirubin 0.7 mg/dL (0.2-1) 02/09/19 08:10 AST 44 U/L (15-37) H 02/09/19 08:10 ALT 59 U/L (13-61) 02/09/19 08:10 Alkaline Phosphatase 154 U/L (45-117) H 02/09/19 08:10 Albumin 1.7 g/dl (3.4-5.0) L 02/09/19 08:10 AM blood test pending Assessment/Plan ASSESSMENT: 1. Persistent atrial fibrillation with improved/controlled ventricular response - rates, [id number] score of 5 on DOAC's/Xarelto 2. Coronary artery disease with evidence of demand ischemia no clinical angina pectoris 3. Diastolic left ventricular dysfunction with clinical class 0 [place] [employer] classification left ventricular failure 4. Hypertensive cardiovascular disease 5. Diabetes mellitus 6. Hypercholesterolemia 7. History of cerebrovascular disease 8. History of schizophrenia 9. History of ataxia 10. History of osteomyelitis 11. Anemia 12. Hyponatremia PLAN: 1. Continue Lopressor at 50 mg four times daily (and as outlined may switch to Toprol-XL once patient is ready for discharge), hemodynamics permitting 2. Continue Prinivil, hemodynamics permitting 3. Continue Cardizem at 30 mg four times daily (and as outlined may switch to Cardizem CD once patient is ready for discharge), hemodynamics permitting 4. Continue Xarelto with close monitoring of hemoglobin level, maintain hemoglobin equal or greater than 8.0 5. Continue diuretic therapy/Lasix therapy with close monitoring of renal function and electrolytes 6. Repeat blood test from this AM, follow Hg and may transfuse if Hg equal or < 8.0, follow Na level Ubaldo Kim M.D.
[2019-02-15 07:02] LABS: BASO % 0.9 % (0-2.0); EOS % 1.5 % (0-4.5); HEMOGLOBIN 8.9 GM/dL (11.7-16.9); LYMPH % 10.9 % (8-40); MCH 23.6 pg (25.7-33.7); MEAN CELL VOLUME 71.5 fl (80-96); MEAN PLT VOLUME 7.2 fl (7.5-11.1); MONO % 6.9 % (3.8-10.2); NEUT % 79.8 % (42.8-82.8); PLATELET COUNT 427 K/MM3 (134-434); RBC 3.77 M/mm3 (4.00-5.60); RDW 24.7 % (11.9-15.9); WHITE BLOOD COUNT 9.2 K/mm3 (4.0-10.0)
[2019-02-15 07:20] LABS: ALBUMIN 1.9 g/dl (3.4-5.0); BILIRUBIN,TOTAL 0.5 mg/dL (0.2-1); BLOOD UREA NITROGEN 15.2 mg/dL (7-18); CALCIUM 8.3 mg/dL (8.5-10.1); CREATININE 0.5 mg/dL (0.55-1.3); POTASSIUM 4.3 mmol/L (3.5-5.1); TOT PROT 7.3 g/dl (6.4-8.2)
[2019-02-15] MEDS: ARIPiprazole 5 MG TABLET (FP) PO SCH (10:16)
[2019-02-15] MEDS: METOPROLOL TARTRATE 50 MG TABLET (FP) PO SCH ×5 (10:16→22:19)
[2019-02-15] MEDS: FUROSEMIDE 20 MG TABLET (FP) PO SCH (10:16)
[2019-02-15] MEDS: LISINOPRIL 5 MG TABLET (FP) PO SCH (10:16)
[2019-02-15] MEDS: PANTOPRAZOLE 20 MG TABLET (FP) PO SCH ×2 (10:16→22:17)
[2019-02-15 11:36] LABS: ANISOCYTOSIS 3+; OVALOCYTE 1+; PLATELET ESTIMATE NORMAL
--- NOTE | 2019-02-15 11:40 | PN ---
Progress Note, Physician History of Present Illness: no new issues - Current Medication List Current Medications: Active Medications Acetaminophen (Tylenol -) 650 mg PO Q6H PRN PRN Reason: FEVER Last Admin: 02/11/19 09:48 Dose: 650 mg Aripiprazole (Abilify) 5 mg PO DAILY [facility] Last Admin: 02/15/19 10:16 Dose: 5 mg Benztropine Mesylate (Cogentin -) 0.5 mg PO HS [facility] Last Admin: 02/14/19 21:17 Dose: 0.5 mg Diltiazem HCl (Cardizem Injection -) 10 mg IVPUSH Q4H PRN PRN Reason: TACHYCARDIA Last Admin: 01/27/19 22:35 Dose: 10 mg Diltiazem HCl (Cardizem -) 30 mg PO Q6HPO [facility] Last Admin: 02/15/19 06:19 Dose: 30 mg Furosemide (Lasix -) 20 mg PO DAILY [facility] Last Admin: 02/15/19 10:16 Dose: 20 mg Iron Sucrose 200 mg/ Sodium (Chloride) 100 mls @ 100 mls/hr IVPB Q48H [facility] Stop: 02/16/19 16:29 Last Admin: 02/13/19 16:42 Dose: 100 mls/hr Insulin Aspart (Novolog Vial Sliding Scale -) 1 vial SQ BIDI [facility]; Protocol Last Admin: 02/15/19 06:24 Dose: Not Given Lisinopril (Prinivil) 2.5 mg PO DAILY [facility] Last Admin: 02/15/19 10:16 Dose: 2.5 mg Metoprolol Tartrate (Lopressor -) 50 mg PO QID [facility] Last Admin: 02/15/19 10:16 Dose: 50 mg Pantoprazole Sodium (Protonix -) 20 mg PO BID [facility] Last Admin: 02/15/19 10:16 Dose: 20 mg Rivaroxaban (Xarelto) 20 mg PO DAILY@1800 [facility] Last Admin: 02/14/19 17:07 Dose: 20 mg - Objective Vital Signs: Vital Signs Temperature 97.8 F 02/14/19 18:00 Pulse Rate 101 H 02/15/19 10:00 Respiratory Rate 20 02/15/19 10:00 Blood Pressure 94/68 02/15/19 10:00 O2 Sat by Pulse Oximetry (%) 100 02/15/19 09:00 Constitutional: Yes: No Distress, Calm Cardiovascular: Yes: S1, S2 Respiratory: Yes: Regular Gastrointestinal: Yes: Normal Bowel Sounds, Soft Musculoskeletal: Yes: WNL Extremities: Yes: Other Neurological: Yes: Alert Psychiatric: Yes: Other Labs: CBC, BMP 02/15/19 06:20 02/15/19 06:20 Assessment/Plan Problem List - Problems (1) Afib Code(s): I48.91 - UNSPECIFIED ATRIAL FIBRILLATION Qualifiers: Atrial fibrillation type: chronic Qualified Code(s): I48.2 - Chronic atrial fibrillation (2) Ataxia Code(s): R27.0 - ATAXIA, UNSPECIFIED (3) Diabetes Code(s): E11.9 - TYPE 2 DIABETES MELLITUS WITHOUT COMPLICATIONS (4) HTN (hypertension) Code(s): I10 - ESSENTIAL (PRIMARY) HYPERTENSION (5) Osteomyelitis Code(s): M86.9 - OSTEOMYELITIS, UNSPECIFIED (6) Schizophrenia Code(s): F20.9 - SCHIZOPHRENIA, UNSPECIFIED plan continue as per cardio rest as per the team
--- NOTE | 2019-02-15 11:42 | PN ---
Progress Note, Physician History of Present Illness: no new issues afib controlled - Current Medication List Current Medications: Active Medications Acetaminophen (Tylenol -) 650 mg PO Q6H PRN PRN Reason: FEVER Last Admin: 02/11/19 09:48 Dose: 650 mg Aripiprazole (Abilify) 5 mg PO DAILY [facility] Last Admin: 02/15/19 10:16 Dose: 5 mg Benztropine Mesylate (Cogentin -) 0.5 mg PO HS [facility] Last Admin: 02/14/19 21:17 Dose: 0.5 mg Diltiazem HCl (Cardizem Injection -) 10 mg IVPUSH Q4H PRN PRN Reason: TACHYCARDIA Last Admin: 01/27/19 22:35 Dose: 10 mg Diltiazem HCl (Cardizem -) 30 mg PO Q6HPO [facility] Last Admin: 02/15/19 06:19 Dose: 30 mg Furosemide (Lasix -) 20 mg PO DAILY [facility] Last Admin: 02/15/19 10:16 Dose: 20 mg Iron Sucrose 200 mg/ Sodium (Chloride) 100 mls @ 100 mls/hr IVPB Q48H [facility] Stop: 02/16/19 16:29 Last Admin: 02/13/19 16:42 Dose: 100 mls/hr Insulin Aspart (Novolog Vial Sliding Scale -) 1 vial SQ BIDI [facility]; Protocol Last Admin: 02/15/19 06:24 Dose: Not Given Lisinopril (Prinivil) 2.5 mg PO DAILY [facility] Last Admin: 02/15/19 10:16 Dose: 2.5 mg Metoprolol Tartrate (Lopressor -) 50 mg PO QID [facility] Last Admin: 02/15/19 10:16 Dose: 50 mg Pantoprazole Sodium (Protonix -) 20 mg PO BID [facility] Last Admin: 02/15/19 10:16 Dose: 20 mg Rivaroxaban (Xarelto) 20 mg PO DAILY@1800 [facility] Last Admin: 02/14/19 17:07 Dose: 20 mg - Objective Vital Signs: Vital Signs Temperature 97.8 F 02/14/19 18:00 Pulse Rate 101 H 02/15/19 10:00 Respiratory Rate 20 02/15/19 10:00 Blood Pressure 94/68 02/15/19 10:00 O2 Sat by Pulse Oximetry (%) 100 02/15/19 09:00 Constitutional: Yes: No Distress, Calm Cardiovascular: Yes: Pulse Irregular, S1, S2 Respiratory: Yes: Regular, CTA Bilaterally Gastrointestinal: Yes: Normal Bowel Sounds, Soft Musculoskeletal: Yes: WNL Extremities: Yes: Other Neurological: Yes: Alert Psychiatric: Yes: Other Labs: CBC, BMP 02/15/19 06:20 02/15/19 06:20 Assessment/Plan Assessment/Plan Problem List - Problems (1) Afib Code(s): I48.91 - UNSPECIFIED ATRIAL FIBRILLATION Qualifiers: Atrial fibrillation type: chronic Qualified Code(s): I48.2 - Chronic atrial fibrillation (2) Ataxia Code(s): R27.0 - ATAXIA, UNSPECIFIED (3) Diabetes Code(s): E11.9 - TYPE 2 DIABETES MELLITUS WITHOUT COMPLICATIONS (4) HTN (hypertension) Code(s): I10 - ESSENTIAL (PRIMARY) HYPERTENSION (5) Osteomyelitis Code(s): M86.9 - OSTEOMYELITIS, UNSPECIFIED (6) Schizophrenia Code(s): F20.9 - SCHIZOPHRENIA, UNSPECIFIED plan continue current mgmt monitor heart rate rest as per the team physio
--- NOTE | 2019-02-15 11:42 | PN ---
Progress Note, Physician History of Present Illness: stable afib improving - Current Medication List Current Medications: Active Medications Acetaminophen (Tylenol -) 650 mg PO Q6H PRN PRN Reason: FEVER Last Admin: 02/11/19 09:48 Dose: 650 mg Aripiprazole (Abilify) 5 mg PO DAILY [facility] Last Admin: 02/15/19 10:16 Dose: 5 mg Benztropine Mesylate (Cogentin -) 0.5 mg PO HS [facility] Last Admin: 02/14/19 21:17 Dose: 0.5 mg Diltiazem HCl (Cardizem Injection -) 10 mg IVPUSH Q4H PRN PRN Reason: TACHYCARDIA Last Admin: 01/27/19 22:35 Dose: 10 mg Diltiazem HCl (Cardizem -) 30 mg PO Q6HPO [facility] Last Admin: 02/15/19 06:19 Dose: 30 mg Furosemide (Lasix -) 20 mg PO DAILY [facility] Last Admin: 02/15/19 10:16 Dose: 20 mg Iron Sucrose 200 mg/ Sodium (Chloride) 100 mls @ 100 mls/hr IVPB Q48H [facility] Stop: 02/16/19 16:29 Last Admin: 02/13/19 16:42 Dose: 100 mls/hr Insulin Aspart (Novolog Vial Sliding Scale -) 1 vial SQ BIDI [facility]; Protocol Last Admin: 02/15/19 06:24 Dose: Not Given Lisinopril (Prinivil) 2.5 mg PO DAILY [facility] Last Admin: 02/15/19 10:16 Dose: 2.5 mg Metoprolol Tartrate (Lopressor -) 50 mg PO QID [facility] Last Admin: 02/15/19 10:16 Dose: 50 mg Pantoprazole Sodium (Protonix -) 20 mg PO BID [facility] Last Admin: 02/15/19 10:16 Dose: 20 mg Rivaroxaban (Xarelto) 20 mg PO DAILY@1800 [facility] Last Admin: 02/14/19 17:07 Dose: 20 mg - Objective Vital Signs: Vital Signs Temperature 97.8 F 02/14/19 18:00 Pulse Rate 101 H 02/15/19 10:00 Respiratory Rate 20 02/15/19 10:00 Blood Pressure 94/68 02/15/19 10:00 O2 Sat by Pulse Oximetry (%) 100 02/15/19 09:00 Constitutional: Yes: No Distress, Calm Cardiovascular: Yes: Pulse Irregular, S1, S2 Respiratory: Yes: Regular, CTA Bilaterally Musculoskeletal: Yes: WNL Extremities: Yes: Other (knee swelling stable) Neurological: Yes: Alert, Other Labs: CBC, BMP 02/15/19 06:20 02/15/19 06:20 Assessment/Plan Problem List - Problems (1) Afib Code(s): I48.91 - UNSPECIFIED ATRIAL FIBRILLATION Qualifiers: Atrial fibrillation type: chronic Qualified Code(s): I48.2 - Chronic atrial fibrillation (2) Ataxia Code(s): R27.0 - ATAXIA, UNSPECIFIED (3) Diabetes Code(s): E11.9 - TYPE 2 DIABETES MELLITUS WITHOUT COMPLICATIONS (4) HTN (hypertension) Code(s): I10 - ESSENTIAL (PRIMARY) HYPERTENSION (5) Osteomyelitis Code(s): M86.9 - OSTEOMYELITIS, UNSPECIFIED (6) Schizophrenia Code(s): F20.9 - SCHIZOPHRENIA, UNSPECIFIED plan continue as per cardio rest as per the team
[2019-02-15 13:09] LABS: MACROCYTOSIS 3+
[2019-02-15] MEDS: RIVAROXABAN 20 MG TABLET PO SCH (17:03)
[2019-02-15] MEDS: IRON SUCROSE INJECTION 200 MG in SODIUM CHLORIDE 90 ML IVPB SCH (17:16)
[2019-02-15] MEDS: BENZTROPINE MESYLATE 0.5 MG TABLET (FP) PO SCH (22:17)
--- NOTE | 2019-02-15 22:23 | PN ---
Progress Note, Physician History of Present Illness: No new complaints - Current Medication List Current Medications: Active Medications Acetaminophen (Tylenol -) 650 mg PO Q6H PRN PRN Reason: FEVER Last Admin: 02/11/19 09:48 Dose: 650 mg Aripiprazole (Abilify) 5 mg PO DAILY [facility] Last Admin: 02/15/19 10:16 Dose: 5 mg Benztropine Mesylate (Cogentin -) 0.5 mg PO HS [facility] Last Admin: 02/15/19 22:17 Dose: 0.5 mg Diltiazem HCl (Cardizem Injection -) 10 mg IVPUSH Q4H PRN PRN Reason: TACHYCARDIA Last Admin: 01/27/19 22:35 Dose: 10 mg Diltiazem HCl (Cardizem -) 30 mg PO Q6HPO [facility] Last Admin: 02/15/19 17:02 Dose: 30 mg Furosemide (Lasix -) 20 mg PO DAILY [facility] Last Admin: 02/15/19 10:16 Dose: 20 mg Iron Sucrose 200 mg/ Sodium (Chloride) 100 mls @ 100 mls/hr IVPB Q48H [facility] Stop: 02/16/19 16:29 Last Admin: 02/15/19 17:16 Dose: 100 mls/hr Insulin Aspart (Novolog Vial Sliding Scale -) 1 vial SQ BIDI [facility]; Protocol Last Admin: 02/15/19 17:37 Dose: 2 units Lisinopril (Prinivil) 2.5 mg PO DAILY [facility] Last Admin: 02/15/19 10:16 Dose: 2.5 mg Metoprolol Tartrate (Lopressor -) 50 mg PO QID [facility] Last Admin: 02/15/19 17:02 Dose: 50 mg Pantoprazole Sodium (Protonix -) 20 mg PO BID [facility] Last Admin: 02/15/19 22:17 Dose: 20 mg Rivaroxaban (Xarelto) 20 mg PO DAILY@1800 [facility] Last Admin: 02/15/19 17:03 Dose: 20 mg - Objective Vital Signs: Vital Signs Temperature 97.8 F 02/14/19 18:00 Pulse Rate 83 02/15/19 18:00 Respiratory Rate 20 02/15/19 18:00 Blood Pressure 102/70 02/15/19 18:00 O2 Sat by Pulse Oximetry (%) 100 02/15/19 09:00 Neck: Yes: WNL, Supple Cardiovascular: Yes: Pulse Irregular Respiratory: Yes: WNL, Regular, CTA Bilaterally Gastrointestinal: Yes: WNL, Normal Bowel Sounds, Soft Labs: CBC, BMP 02/15/19 06:20 02/15/19 06:20 Problem List - Problems (1) Afib Assessment/Plan: Heart rate controlled Cont lopressor/prinivil/cardizem/xarelto Code(s): I48.91 - UNSPECIFIED ATRIAL FIBRILLATION Qualifiers: Atrial fibrillation type: persistent (2) Anemia Assessment/Plan: H/H stable Code(s): D64.9 - ANEMIA, UNSPECIFIED Qualifiers: Anemia type: unspecified type Qualified Code(s): D64.9 - Anemia, unspecified (3) Ataxia Code(s): R27.0 - ATAXIA, UNSPECIFIED (4) Diastolic dysfunction Assessment/Plan: Pt not on diuretic Code(s): I51.89 - OTHER ILL-DEFINED HEART DISEASES (5) Diabetes Assessment/Plan: Cont sliding scale w/ coverage Code(s): E11.9 - TYPE 2 DIABETES MELLITUS WITHOUT COMPLICATIONS (6) HTN (hypertension) Assessment/Plan: BP stable Code(s): I10 - ESSENTIAL (PRIMARY) HYPERTENSION Qualifiers: Hypertension type: essential hypertension Qualified Code(s): I10 - Essential (primary) hypertension (7) Schizophrenia Assessment/Plan: Cont cogentin/schizophrenia Code(s): F20.9 - SCHIZOPHRENIA, UNSPECIFIED
[2019-02-16] MEDS: dilTIAZem HCL 30 MG TABLET (FP) PO SCH ×4 (00:21→19:15)
[2019-02-16] MEDS: INSULIN SLIDING SCALE (NOVOLOG) 1 VIAL SQ SCH ×2 (06:13→17:12)
[2019-02-16] MEDS: METOPROLOL TARTRATE 50 MG TABLET (FP) PO SCH ×4 (10:46→21:29)
[2019-02-16] MEDS: LISINOPRIL 5 MG TABLET (FP) PO SCH (10:46)
[2019-02-16] MEDS: FUROSEMIDE 20 MG TABLET (FP) PO SCH (10:46)
[2019-02-16] MEDS: ARIPiprazole 5 MG TABLET (FP) PO SCH (10:46)
[2019-02-16] MEDS: PANTOPRAZOLE 20 MG TABLET (FP) PO SCH ×2 (10:46→21:29)
--- NOTE | 2019-02-16 11:51 | PN ---
Progress Note, Physician History of Present Illness: Afib with improved rate-control, asymptomatic and denies chest pain, dyspnea, palpitations. Afebrile, right knee effusion s/p tap, synovial fluid negative for septic joint. Patient lacks mental capacity to consent for procedures. - Current Medication List Current Medications: Active Medications Acetaminophen (Tylenol -) 650 mg PO Q6H PRN PRN Reason: FEVER Last Admin: 02/11/19 09:48 Dose: 650 mg Aripiprazole (Abilify) 5 mg PO DAILY [facility] Last Admin: 02/16/19 10:46 Dose: 5 mg Benztropine Mesylate (Cogentin -) 0.5 mg PO HS [facility] Last Admin: 02/15/19 22:17 Dose: 0.5 mg Diltiazem HCl (Cardizem Injection -) 10 mg IVPUSH Q4H PRN PRN Reason: TACHYCARDIA Last Admin: 01/27/19 22:35 Dose: 10 mg Diltiazem HCl (Cardizem -) 30 mg PO Q6HPO [facility] Last Admin: 02/16/19 06:13 Dose: Not Given Furosemide (Lasix -) 20 mg PO DAILY [facility] Last Admin: 02/16/19 10:46 Dose: 20 mg Iron Sucrose 200 mg/ Sodium (Chloride) 100 mls @ 100 mls/hr IVPB Q48H [facility] Stop: 02/16/19 16:29 Last Admin: 02/15/19 17:16 Dose: 100 mls/hr Insulin Aspart (Novolog Vial Sliding Scale -) 1 vial SQ BIDI [facility]; Protocol Last Admin: 02/16/19 06:13 Dose: 4 units Lisinopril (Prinivil) 2.5 mg PO DAILY [facility] Last Admin: 02/16/19 10:46 Dose: Not Given Metoprolol Tartrate (Lopressor -) 50 mg PO QID [facility] Last Admin: 02/16/19 10:46 Dose: Not Given Pantoprazole Sodium (Protonix -) 20 mg PO BID [facility] Last Admin: 02/16/19 10:46 Dose: 20 mg Rivaroxaban (Xarelto) 20 mg PO DAILY@1800 [facility] Last Admin: 02/15/19 17:03 Dose: 20 mg - Objective Vital Signs: Vital Signs Temperature 98.6 F 02/16/19 10:00 Pulse Rate 94 H 02/16/19 10:00 Respiratory Rate 14 02/16/19 10:00 Blood Pressure 90/60 02/16/19 10:00 O2 Sat by Pulse Oximetry (%) 100 02/16/19 09:00 Constitutional: Yes: No Distress, Calm, Thin Neck: Yes: Supple Cardiovascular: Yes: Tachycardia, Pulse Irregular Respiratory: Yes: Regular, CTA Bilaterally Gastrointestinal: Yes: Normal Bowel Sounds, Soft Edema: No Labs: CBC, BMP 02/15/19 06:20 02/15/19 06:20 - ....Imaging EKG: Report Reviewed (Tele: Afib) Problem List - Problems (1) Demand ischemia Code(s): I24.8 - OTHER FORMS OF ACUTE ISCHEMIC HEART DISEASE (2) Anemia Code(s): D64.9 - ANEMIA, UNSPECIFIED Qualifiers: Anemia type: unspecified type Qualified Code(s): D64.9 - Anemia, unspecified (3) Diastolic dysfunction Code(s): I51.89 - OTHER ILL-DEFINED HEART DISEASES (4) Afib Code(s): I48.91 - UNSPECIFIED ATRIAL FIBRILLATION Qualifiers: Atrial fibrillation type: persistent (5) HTN (hypertension) Code(s): I10 - ESSENTIAL (PRIMARY) HYPERTENSION Qualifiers: Hypertension type: essential hypertension Qualified Code(s): I10 - Essential (primary) hypertension (6) Schizophrenia Code(s): F20.9 - SCHIZOPHRENIA, UNSPECIFIED (7) Effusion, right knee Code(s): M25.461 - EFFUSION, RIGHT KNEE Assessment/Plan 01/22/2019 Echo: Normal and RV size and fxn LVEF 53%, mild TR RVSP 34 mmHg, tr- mild MR, normal biatrial sizes 1. Persistent atrial fibrillation with improved/controlled ventricular response - rates, [id number] score of 5 on DOAC's/Xarelto 2. Coronary artery disease with evidence of demand ischemia no clinical angina pectoris 3. Diastolic left ventricular dysfunction with clinical class 0 [place] [employer] classification left ventricular failure 4. Hypertensive cardiovascular disease 5. Diabetes mellitus 6. Hypercholesterolemia 7. History of cerebrovascular disease 8. History of schizophrenia 9. History of ataxia 10. History of osteomyelitis 11. Anemia 12. Hyponatremia PLAN: 1. Continue Lopressor at 50 mg four times daily (and as outlined may switch to Toprol-XL once patient is ready for discharge), hemodynamics permitting 2. Continue Prinivil, hemodynamics permitting 3. Continue Cardizem at 30 mg four times daily (and as outlined may switch to Cardizem CD once patient is ready for discharge), hemodynamics permitting 4. Continue Xarelto with close monitoring of hemoglobin level, maintain hemoglobin equal or greater than 8.0 5. D/c Lasix and liberalize salt intake
--- NOTE | 2019-02-16 12:09 | PN ---
Progress Note, Physician History of Present Illness: no new issues afib controlled - Current Medication List Current Medications: Active Medications Acetaminophen (Tylenol -) 650 mg PO Q6H PRN PRN Reason: FEVER Last Admin: 02/11/19 09:48 Dose: 650 mg Aripiprazole (Abilify) 5 mg PO DAILY [facility] Last Admin: 02/16/19 10:46 Dose: 5 mg Benztropine Mesylate (Cogentin -) 0.5 mg PO HS [facility] Last Admin: 02/15/19 22:17 Dose: 0.5 mg Diltiazem HCl (Cardizem Injection -) 10 mg IVPUSH Q4H PRN PRN Reason: TACHYCARDIA Last Admin: 01/27/19 22:35 Dose: 10 mg Diltiazem HCl (Cardizem -) 30 mg PO Q6HPO [facility] Last Admin: 02/16/19 06:13 Dose: Not Given Furosemide (Lasix -) 20 mg PO DAILY [facility] Last Admin: 02/16/19 10:46 Dose: 20 mg Iron Sucrose 200 mg/ Sodium (Chloride) 100 mls @ 100 mls/hr IVPB Q48H [facility] Stop: 02/16/19 16:29 Last Admin: 02/15/19 17:16 Dose: 100 mls/hr Insulin Aspart (Novolog Vial Sliding Scale -) 1 vial SQ BIDI [facility]; Protocol Last Admin: 02/16/19 06:13 Dose: 4 units Lisinopril (Prinivil) 2.5 mg PO DAILY [facility] Last Admin: 02/16/19 10:46 Dose: Not Given Metoprolol Tartrate (Lopressor -) 50 mg PO QID [facility] Last Admin: 02/16/19 10:46 Dose: Not Given Pantoprazole Sodium (Protonix -) 20 mg PO BID [facility] Last Admin: 02/16/19 10:46 Dose: 20 mg Rivaroxaban (Xarelto) 20 mg PO DAILY@1800 [facility] Last Admin: 02/15/19 17:03 Dose: 20 mg - Objective Vital Signs: Vital Signs Temperature 98.6 F 02/16/19 10:00 Pulse Rate 94 H 02/16/19 10:00 Respiratory Rate 14 02/16/19 10:00 Blood Pressure 90/60 02/16/19 10:00 O2 Sat by Pulse Oximetry (%) 100 02/16/19 09:00 Constitutional: Yes: No Distress, Calm Cardiovascular: Yes: Pulse Irregular Respiratory: Yes: Regular, CTA Bilaterally Gastrointestinal: Yes: Normal Bowel Sounds, Soft Musculoskeletal: Yes: WNL Extremities: Yes: Other Neurological: Yes: Alert, Other Psychiatric: Yes: Other Labs: CBC, BMP 02/15/19 06:20 02/15/19 06:20 Assessment/Plan Assessment/Plan Problem List - Problems (1) Afib Code(s): I48.91 - UNSPECIFIED ATRIAL FIBRILLATION Qualifiers: Atrial fibrillation type: chronic Qualified Code(s): I48.2 - Chronic atrial fibrillation (2) Ataxia Code(s): R27.0 - ATAXIA, UNSPECIFIED (3) Diabetes Code(s): E11.9 - TYPE 2 DIABETES MELLITUS WITHOUT COMPLICATIONS (4) HTN (hypertension) Code(s): I10 - ESSENTIAL (PRIMARY) HYPERTENSION (5) Osteomyelitis Code(s): M86.9 - OSTEOMYELITIS, UNSPECIFIED (6) Schizophrenia Code(s): F20.9 - SCHIZOPHRENIA, UNSPECIFIED plan continue current mgmt monitor heart rate rest as per the team physio
[2019-02-16] MEDS: dilTIAZem HCL 50 MG/10 ML - 10 ML VIAL IVPUSH PRN (15:59)
[2019-02-16] MEDS: RIVAROXABAN 20 MG TABLET PO SCH (19:15)
--- NOTE | 2019-02-16 20:30 | PN ---
Progress Note, Physician History of Present Illness: No new complaints - Current Medication List Current Medications: Active Medications Acetaminophen (Tylenol -) 650 mg PO Q6H PRN PRN Reason: FEVER Last Admin: 02/11/19 09:48 Dose: 650 mg Aripiprazole (Abilify) 5 mg PO DAILY [facility] Last Admin: 02/16/19 10:46 Dose: 5 mg Benztropine Mesylate (Cogentin -) 0.5 mg PO HS [facility] Last Admin: 02/15/19 22:17 Dose: 0.5 mg Diltiazem HCl (Cardizem Injection -) 10 mg IVPUSH Q4H PRN PRN Reason: TACHYCARDIA Last Admin: 02/16/19 15:59 Dose: 10 mg Diltiazem HCl (Cardizem -) 30 mg PO Q6HPO [facility] Last Admin: 02/16/19 19:15 Dose: Not Given Insulin Aspart (Novolog Vial Sliding Scale -) 1 vial SQ BIDI [facility]; Protocol Last Admin: 02/16/19 17:12 Dose: 4 units Lisinopril (Prinivil) 2.5 mg PO DAILY [facility] Last Admin: 02/16/19 10:46 Dose: Not Given Metoprolol Tartrate (Lopressor -) 50 mg PO QID [facility] Last Admin: 02/16/19 19:15 Dose: Not Given Pantoprazole Sodium (Protonix -) 20 mg PO BID [facility] Last Admin: 02/16/19 10:46 Dose: 20 mg Rivaroxaban (Xarelto) 20 mg PO DAILY@1800 [facility] Last Admin: 02/16/19 19:15 Dose: 20 mg - Objective Vital Signs: Vital Signs Temperature 98.4 F 02/16/19 18:00 Pulse Rate 104 H 02/16/19 18:00 Respiratory Rate 18 02/16/19 19:59 Blood Pressure 92/62 02/16/19 18:00 O2 Sat by Pulse Oximetry (%) 100 02/16/19 19:59 Constitutional: Yes: Well Nourished Neck: Yes: WNL, Supple Cardiovascular: Yes: Pulse Irregular Respiratory: Yes: WNL, Regular, CTA Bilaterally Gastrointestinal: Yes: WNL, Normal Bowel Sounds, Soft Labs: CBC, BMP 02/15/19 06:20 02/15/19 06:20 Problem List - Problems (1) Afib Assessment/Plan: Heart rate controlled Cont lopressor/prinivil/cardizem/xarelto Code(s): I48.91 - UNSPECIFIED ATRIAL FIBRILLATION Qualifiers: Atrial fibrillation type: persistent (2) Anemia Assessment/Plan: H/H stable Code(s): D64.9 - ANEMIA, UNSPECIFIED Qualifiers: Anemia type: unspecified type Qualified Code(s): D64.9 - Anemia, unspecified (3) Ataxia Code(s): R27.0 - ATAXIA, UNSPECIFIED (4) Diastolic dysfunction Assessment/Plan: Pt not on diuretic Code(s): I51.89 - OTHER ILL-DEFINED HEART DISEASES (5) Diabetes Assessment/Plan: Cont sliding scale w/ coverage Code(s): E11.9 - TYPE 2 DIABETES MELLITUS WITHOUT COMPLICATIONS (6) HTN (hypertension) Assessment/Plan: BP stable Code(s): I10 - ESSENTIAL (PRIMARY) HYPERTENSION Qualifiers: Hypertension type: essential hypertension Qualified Code(s): I10 - Essential (primary) hypertension (7) Schizophrenia Assessment/Plan: Cont cogentin/schizophrenia Code(s): F20.9 - SCHIZOPHRENIA, UNSPECIFIED
[2019-02-16] MEDS: BENZTROPINE MESYLATE 0.5 MG TABLET (FP) PO SCH (21:29)
[2019-02-17] MEDS: dilTIAZem HCL 30 MG TABLET (FP) PO SCH ×4 (06:01→17:23)
[2019-02-17] MEDS: INSULIN SLIDING SCALE (NOVOLOG) 1 VIAL SQ SCH ×2 (06:05→17:00)
--- NOTE | 2019-02-17 09:19 | PN ---
Progress Note, Physician History of Present Illness: Afib with improved rate-control, asymptomatic and denies chest pain, dyspnea, palpitations. Afebrile, right knee effusion s/p tap, synovial fluid negative for septic joint. Patient lacks mental capacity to consent for procedures. - Current Medication List Current Medications: Active Medications Acetaminophen (Tylenol -) 650 mg PO Q6H PRN PRN Reason: FEVER Last Admin: 02/11/19 09:48 Dose: 650 mg Aripiprazole (Abilify) 5 mg PO DAILY [facility] Last Admin: 02/16/19 10:46 Dose: 5 mg Benztropine Mesylate (Cogentin -) 0.5 mg PO HS [facility] Last Admin: 02/16/19 21:29 Dose: 0.5 mg Diltiazem HCl (Cardizem Injection -) 10 mg IVPUSH Q4H PRN PRN Reason: TACHYCARDIA Last Admin: 02/16/19 15:59 Dose: 10 mg Diltiazem HCl (Cardizem -) 30 mg PO Q6HPO [facility] Last Admin: 02/17/19 06:03 Dose: 30 mg Insulin Aspart (Novolog Vial Sliding Scale -) 1 vial SQ BIDI [facility]; Protocol Last Admin: 02/17/19 06:05 Dose: Not Given Lisinopril (Prinivil) 2.5 mg PO DAILY [facility] Last Admin: 02/16/19 10:46 Dose: Not Given Metoprolol Tartrate (Lopressor -) 50 mg PO QID [facility] Last Admin: 02/16/19 21:29 Dose: 50 mg Pantoprazole Sodium (Protonix -) 20 mg PO BID [facility] Last Admin: 02/16/19 21:29 Dose: 20 mg Rivaroxaban (Xarelto) 20 mg PO DAILY@1800 [facility] Last Admin: 02/16/19 19:15 Dose: 20 mg - Objective Vital Signs: Vital Signs Temperature 98.4 F 02/17/19 08:56 Pulse Rate 116 H 02/17/19 08:56 Respiratory Rate 22 H 02/17/19 08:56 Blood Pressure 93/66 02/17/19 08:56 O2 Sat by Pulse Oximetry (%) 100 02/16/19 19:59 Constitutional: Yes: No Distress, Calm, Thin Neck: Yes: Supple Cardiovascular: Yes: Pulse Irregular Respiratory: Yes: Regular, Diminished Gastrointestinal: Yes: Normal Bowel Sounds, Soft Edema: No Labs: CBC, BMP 02/15/19 06:20 02/15/19 06:20 - ....Imaging EKG: Report Reviewed (Tele: Afib) Problem List - Problems (1) Demand ischemia Code(s): I24.8 - OTHER FORMS OF ACUTE ISCHEMIC HEART DISEASE (2) Anemia Code(s): D64.9 - ANEMIA, UNSPECIFIED Qualifiers: Anemia type: unspecified type Qualified Code(s): D64.9 - Anemia, unspecified (3) Diastolic dysfunction Code(s): I51.89 - OTHER ILL-DEFINED HEART DISEASES (4) Afib Code(s): I48.91 - UNSPECIFIED ATRIAL FIBRILLATION Qualifiers: Atrial fibrillation type: persistent (5) HTN (hypertension) Code(s): I10 - ESSENTIAL (PRIMARY) HYPERTENSION Qualifiers: Hypertension type: essential hypertension Qualified Code(s): I10 - Essential (primary) hypertension (6) Schizophrenia Code(s): F20.9 - SCHIZOPHRENIA, UNSPECIFIED (7) Effusion, right knee Code(s): M25.461 - EFFUSION, RIGHT KNEE Assessment/Plan 01/22/2019 Echo: Normal and RV size and fxn LVEF 53%, mild TR RVSP 34 mmHg, tr- mild MR, normal biatrial sizes 1. Persistent atrial fibrillation with improved/controlled ventricular response - rates, [id number] score of 5 on DOAC's/Xarelto 2. Coronary artery disease with evidence of demand ischemia no clinical angina pectoris 3. Diastolic left ventricular dysfunction with clinical class 0 [place] [employer] classification left ventricular failure 4. Hypertensive cardiovascular disease 5. Diabetes mellitus 6. Hypercholesterolemia 7. History of cerebrovascular disease 8. History of schizophrenia 9. History of ataxia 10. History of osteomyelitis 11. Anemia 12. Hyponatremia PLAN: 1. Continue Lopressor at 50 mg four times daily (and as outlined may switch to Toprol-XL once patient is ready for discharge), hemodynamics permitting 2. Continue Prinivil, hemodynamics permitting 3. Continue Cardizem at 30 mg four times daily (and as outlined may switch to Cardizem CD once patient is ready for discharge), hemodynamics permitting 4. Continue Xarelto with close monitoring of hemoglobin level, maintain hemoglobin equal or greater than 8.0 5. D/c Lasix and liberalize salt intake
[2019-02-17] MEDS: METOPROLOL TARTRATE 50 MG TABLET (FP) PO SCH ×4 (10:29→21:20)
[2019-02-17] MEDS: ARIPiprazole 5 MG TABLET (FP) PO SCH (10:29)
[2019-02-17] MEDS: LISINOPRIL 5 MG TABLET (FP) PO SCH (10:29)
[2019-02-17] MEDS: PANTOPRAZOLE 20 MG TABLET (FP) PO SCH ×2 (10:29→21:20)
--- NOTE | 2019-02-17 12:15 | PN ---
Progress Note, Physician History of Present Illness: no new issues rate controlled afib - Current Medication List Current Medications: Active Medications Acetaminophen (Tylenol -) 650 mg PO Q6H PRN PRN Reason: FEVER Last Admin: 02/11/19 09:48 Dose: 650 mg Aripiprazole (Abilify) 5 mg PO DAILY [facility] Last Admin: 02/17/19 10:29 Dose: 5 mg Benztropine Mesylate (Cogentin -) 0.5 mg PO HS [facility] Last Admin: 02/16/19 21:29 Dose: 0.5 mg Diltiazem HCl (Cardizem Injection -) 10 mg IVPUSH Q4H PRN PRN Reason: TACHYCARDIA Last Admin: 02/16/19 15:59 Dose: 10 mg Diltiazem HCl (Cardizem -) 30 mg PO Q6HPO [facility] Last Admin: 02/17/19 06:03 Dose: 30 mg Insulin Aspart (Novolog Vial Sliding Scale -) 1 vial SQ BIDI [facility]; Protocol Last Admin: 02/17/19 06:05 Dose: Not Given Lisinopril (Prinivil) 2.5 mg PO DAILY [facility] Last Admin: 02/17/19 10:29 Dose: 2.5 mg Metoprolol Tartrate (Lopressor -) 50 mg PO QID [facility] Last Admin: 02/17/19 10:29 Dose: 50 mg Pantoprazole Sodium (Protonix -) 20 mg PO BID [facility] Last Admin: 02/17/19 10:29 Dose: 20 mg Rivaroxaban (Xarelto) 20 mg PO DAILY@1800 [facility] Last Admin: 02/16/19 19:15 Dose: 20 mg - Objective Vital Signs: Vital Signs Temperature 98.4 F 02/17/19 08:56 Pulse Rate 116 H 02/17/19 08:56 Respiratory Rate 22 H 02/17/19 08:56 Blood Pressure 93/66 02/17/19 08:56 O2 Sat by Pulse Oximetry (%) 100 02/16/19 19:59 Constitutional: Yes: No Distress, Calm Cardiovascular: Yes: Pulse Irregular, S1, S2 Gastrointestinal: Yes: Normal Bowel Sounds, Soft Musculoskeletal: Yes: WNL Extremities: Yes: Other Neurological: Yes: Alert Psychiatric: Yes: Other Labs: CBC, BMP 02/15/19 06:20 02/15/19 06:20 Assessment/Plan Problem List - Problems (1) Afib Code(s): I48.91 - UNSPECIFIED ATRIAL FIBRILLATION Qualifiers: Atrial fibrillation type: chronic Qualified Code(s): I48.2 - Chronic atrial fibrillation (2) Ataxia Code(s): R27.0 - ATAXIA, UNSPECIFIED (3) Diabetes Code(s): E11.9 - TYPE 2 DIABETES MELLITUS WITHOUT COMPLICATIONS (4) HTN (hypertension) Code(s): I10 - ESSENTIAL (PRIMARY) HYPERTENSION (5) Osteomyelitis Code(s): M86.9 - OSTEOMYELITIS, UNSPECIFIED (6) Schizophrenia Code(s): F20.9 - SCHIZOPHRENIA, UNSPECIFIED plan continue as per cardio rest as per the team
[2019-02-17] MEDS: RIVAROXABAN 20 MG TABLET PO SCH (17:42)
--- NOTE | 2019-02-17 19:18 | PN ---
Progress Note, Physician - Current Medication List Current Medications: Active Medications Acetaminophen (Tylenol -) 650 mg PO Q6H PRN PRN Reason: FEVER Last Admin: 02/11/19 09:48 Dose: 650 mg Aripiprazole (Abilify) 5 mg PO DAILY [facility] Last Admin: 02/17/19 10:29 Dose: 5 mg Benztropine Mesylate (Cogentin -) 0.5 mg PO HS [facility] Last Admin: 02/16/19 21:29 Dose: 0.5 mg Diltiazem HCl (Cardizem Injection -) 10 mg IVPUSH Q4H PRN PRN Reason: TACHYCARDIA Last Admin: 02/16/19 15:59 Dose: 10 mg Diltiazem HCl (Cardizem -) 30 mg PO Q6HPO [facility] Last Admin: 02/17/19 17:23 Dose: Not Given Insulin Aspart (Novolog Vial Sliding Scale -) 1 vial SQ BIDI [facility]; Protocol Last Admin: 02/17/19 17:00 Dose: 2 units Lisinopril (Prinivil) 2.5 mg PO DAILY [facility] Last Admin: 02/17/19 10:29 Dose: 2.5 mg Metoprolol Tartrate (Lopressor -) 50 mg PO QID [facility] Last Admin: 02/17/19 17:24 Dose: Not Given Pantoprazole Sodium (Protonix -) 20 mg PO BID [facility] Last Admin: 02/17/19 10:29 Dose: 20 mg Rivaroxaban (Xarelto) 20 mg PO DAILY@1800 [facility] Last Admin: 02/17/19 17:42 Dose: 20 mg - Objective Vital Signs: Vital Signs Temperature 97.9 F 02/17/19 18:00 Pulse Rate 117 H 02/17/19 18:00 Respiratory Rate 18 02/17/19 18:00 Blood Pressure 97/72 02/17/19 18:00 O2 Sat by Pulse Oximetry (%) 100 02/17/19 08:00 Constitutional: Yes: No Distress HENT: Yes: Atraumatic Neck: Yes: Supple Cardiovascular: Yes: Regular Rate and Rhythm Respiratory: Yes: CTA Bilaterally Gastrointestinal: Yes: Normal Bowel Sounds Extremities: Yes: WNL Neurological: Yes: Alert Labs: CBC, BMP 02/15/19 06:20 02/15/19 06:20 Problem List - Problems (1) Afib Assessment/Plan: on meds stable Code(s): I48.91 - UNSPECIFIED ATRIAL FIBRILLATION Qualifiers: Atrial fibrillation type: persistent (2) Ataxia Assessment/Plan: possible rehab Code(s): R27.0 - ATAXIA, UNSPECIFIED (3) Diabetes Assessment/Plan: insulin sliding scale and bgms Code(s): E11.9 - TYPE 2 DIABETES MELLITUS WITHOUT COMPLICATIONS (4) HTN (hypertension) Code(s): I10 - ESSENTIAL (PRIMARY) HYPERTENSION Qualifiers: Hypertension type: essential hypertension Qualified Code(s): I10 - Essential (primary) hypertension (5) Osteomyelitis Code(s): M86.9 - OSTEOMYELITIS, UNSPECIFIED (6) Schizophrenia Code(s): F20.9 - SCHIZOPHRENIA, UNSPECIFIED (7) Anemia Code(s): D64.9 - ANEMIA, UNSPECIFIED Qualifiers: Anemia type: unspecified type Qualified Code(s): D64.9 - Anemia, unspecified (8) Septic arthritis Code(s): M00.9 - PYOGENIC ARTHRITIS, UNSPECIFIED Assessment/Plan NEED TO KNOW DOSE OF TOPROL
[2019-02-17] MEDS ORDERED: IRON SUCROSE INJECTION 200 MG in SODIUM CHLORIDE 90 ML IVPB ONE (21:12)
[2019-02-17 21:16] LABS: BASO % 1.2 % (0-2.0); EOS % 1.1 % (0-4.5); HEMATOCRIT 25.6 % (35.4-49); HEMOGLOBIN 8.2 GM/dL (11.7-16.9); MCH 23.2 pg (25.7-33.7); MCHC 32.1 g/dl (32.0-35.9); MEAN CELL VOLUME 72.4 fl (80-96); MEAN PLT VOLUME 7.1 fl (7.5-11.1); MONO % 7.4 % (3.8-10.2); NEUT % 83.3 % (42.8-82.8); PLATELET COUNT 342 K/MM3 (134-434); RBC 3.54 M/mm3 (4.00-5.60); RDW 26.4 % (11.9-15.9); WHITE BLOOD COUNT 10.3 K/mm3 (4.0-10.0)
[2019-02-17] MEDS: BENZTROPINE MESYLATE 0.5 MG TABLET (FP) PO SCH (21:20)
[2019-02-18] MEDS: dilTIAZem HCL 30 MG TABLET (FP) PO SCH ×4 (00:10→17:34)
[2019-02-18] MEDS: INSULIN SLIDING SCALE (NOVOLOG) 1 VIAL SQ SCH ×2 (06:11→17:34)
[2019-02-18] MEDS: ACETAMINOPHEN 325 MG TABLET (FP) PO PRN (09:36)
[2019-02-18] MEDS: ARIPiprazole 5 MG TABLET (FP) PO SCH (09:36)
[2019-02-18] MEDS: PANTOPRAZOLE 20 MG TABLET (FP) PO SCH (09:36)
[2019-02-18] MEDS: LISINOPRIL 5 MG TABLET (FP) PO SCH (09:36)
[2019-02-18] MEDS: METOPROLOL TARTRATE 50 MG TABLET (FP) PO SCH ×4 (09:36→22:30)
--- NOTE | 2019-02-18 12:12 | PN ---
Progress Note, Physician Chief Complaint: Events noted AF with RVR History of Present Illness: Patient was seen and examined. Awake. Chart was reviewed Denies chest pain or SOB - Current Medication List Current Medications: Active Medications Acetaminophen (Tylenol -) 650 mg PO Q6H PRN PRN Reason: FEVER Last Admin: 02/18/19 09:36 Dose: 650 mg Aripiprazole (Abilify) 5 mg PO DAILY [facility] Last Admin: 02/18/19 09:36 Dose: 5 mg Benztropine Mesylate (Cogentin -) 0.5 mg PO HS [facility] Last Admin: 02/17/19 21:20 Dose: 0.5 mg Diltiazem HCl (Cardizem Injection -) 10 mg IVPUSH Q4H PRN PRN Reason: TACHYCARDIA Last Admin: 02/16/19 15:59 Dose: 10 mg Diltiazem HCl (Cardizem -) 30 mg PO Q6HPO [facility] Last Admin: 02/18/19 06:12 Dose: Not Given Insulin Aspart (Novolog Vial Sliding Scale -) 1 vial SQ BIDI [facility]; Protocol Last Admin: 02/18/19 06:11 Dose: 2 units Lisinopril (Prinivil) 2.5 mg PO DAILY [facility] Last Admin: 02/18/19 09:36 Dose: 2.5 mg Metoprolol Tartrate (Lopressor -) 50 mg PO QID [facility] Last Admin: 02/18/19 09:36 Dose: 50 mg Pantoprazole Sodium (Protonix -) 20 mg PO BID [facility] Last Admin: 02/18/19 09:36 Dose: 20 mg Rivaroxaban (Xarelto) 20 mg PO DAILY@1800 [facility] Last Admin: 02/17/19 17:42 Dose: 20 mg - Objective Vital Signs: Vital Signs Temperature 98.4 F 02/18/19 05:37 Pulse Rate 112 H 02/18/19 09:41 Respiratory Rate 22 H 02/18/19 09:41 Blood Pressure 109/60 02/18/19 09:41 O2 Sat by Pulse Oximetry (%) 92 L 02/18/19 10:52 Eyes: Yes: PERRL HENT: Yes: Atraumatic Neck: Yes: Supple Cardiovascular: Yes: Tachycardia, Pulse Irregular, S1, S2 Respiratory: Yes: Diminished Gastrointestinal: Yes: Normal Bowel Sounds, Soft. No: Tenderness Edema: No Additional Findings/Remarks: - Review of Systems Constitutional: denies: Chills, Fever Cardiovascular: denies Chest Pain. denies: Palpitations, Shortness of Breath Respiratory: denies: Cough, Hemoptysis, Orthopnea, PND, SOB, SOB on Exertion Gastrointestinal: denies: Abdominal Pain, Constipation, Diarrhea, Melena, Nausea , Rectal Bleeding, Vomiting Neurological: denies Dizziness, Headache. denies: Seizure, Syncope Labs: CBC, BMP 02/17/19 21:00 02/15/19 06:20 Problem List - Problems (1) Afib Code(s): I48.91 - UNSPECIFIED ATRIAL FIBRILLATION Qualifiers: Atrial fibrillation type: persistent (2) Anemia Code(s): D64.9 - ANEMIA, UNSPECIFIED Qualifiers: Anemia type: unspecified type Qualified Code(s): D64.9 - Anemia, unspecified (3) Demand ischemia Code(s): I24.8 - OTHER FORMS OF ACUTE ISCHEMIC HEART DISEASE (4) Diabetes Code(s): E11.9 - TYPE 2 DIABETES MELLITUS WITHOUT COMPLICATIONS (5) Diabetic peripheral vascular disease Code(s): E11.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 (6) HTN (hypertension) Code(s): I10 - ESSENTIAL (PRIMARY) HYPERTENSION Qualifiers: Hypertension type: essential hypertension Qualified Code(s): I10 - Essential (primary) hypertension (7) Schizophrenia Code(s): F20.9 - SCHIZOPHRENIA, UNSPECIFIED Assessment/Plan 1. Persistent AF with improved rate-control, [id number] score of 5 on DOAC 2. CAD with demand ischemia 3. Diastolic dysfunction with clinical class 0 NYHA classification heart failure 4. DM 5. HTN 6. Hypercholesterolemia 7. History of schizophrenia 8. History of osteomyelitis 9. History of CVA 10. Anemia post transfusion 11. DJD 12. Hyponatremia PLAN: 1. Continue Lopressor 50 mg four times daily (may switch to Toprol-XL once patient is ready for discharge) 2. Continue Prinivil 2.5 mg QD as tolerated 3. Continue Cardizem 30 mg four times daily (may switch to Cardizem CD once patient is ready for discharge) 4. Continue Xarelto 20 mg QD 5. If still RVR, may consider Digoxin with caution Homer Calvert MD
--- NOTE | 2019-02-18 13:29 | PN ---
Progress Note, Physician History of Present Illness: stable no new issues - Current Medication List Current Medications: Active Medications Acetaminophen (Tylenol -) 650 mg PO Q6H PRN PRN Reason: FEVER Last Admin: 02/18/19 09:36 Dose: 650 mg Aripiprazole (Abilify) 5 mg PO DAILY [facility] Last Admin: 02/18/19 09:36 Dose: 5 mg Benztropine Mesylate (Cogentin -) 0.5 mg PO HS [facility] Last Admin: 02/17/19 21:20 Dose: 0.5 mg Diltiazem HCl (Cardizem Injection -) 10 mg IVPUSH Q4H PRN PRN Reason: TACHYCARDIA Last Admin: 02/16/19 15:59 Dose: 10 mg Diltiazem HCl (Cardizem -) 30 mg PO Q6HPO [facility] Last Admin: 02/18/19 12:56 Dose: 30 mg Insulin Aspart (Novolog Vial Sliding Scale -) 1 vial SQ BIDI [facility]; Protocol Last Admin: 02/18/19 06:11 Dose: 2 units Lisinopril (Prinivil) 2.5 mg PO DAILY [facility] Last Admin: 02/18/19 09:36 Dose: 2.5 mg Metoprolol Tartrate (Lopressor -) 50 mg PO QID [facility] Last Admin: 02/18/19 12:59 Dose: 50 mg Pantoprazole Sodium (Protonix -) 20 mg PO BID [facility] Last Admin: 02/18/19 09:36 Dose: 20 mg Rivaroxaban (Xarelto) 20 mg PO DAILY@1800 [facility] Last Admin: 02/17/19 17:42 Dose: 20 mg - Objective Vital Signs: Vital Signs Temperature 98.4 F 02/18/19 05:37 Pulse Rate 109 H 02/18/19 12:57 Respiratory Rate 21 H 02/18/19 12:57 Blood Pressure 93/70 02/18/19 12:59 O2 Sat by Pulse Oximetry (%) 92 L 02/18/19 10:52 Constitutional: Yes: No Distress, Calm Cardiovascular: Yes: S1, S2 Respiratory: Yes: Regular, CTA Bilaterally Musculoskeletal: Yes: WNL Extremities: Yes: WNL Neurological: Yes: Alert, Oriented Psychiatric: Yes: Alert, Oriented Labs: CBC, BMP 02/17/19 21:00 02/15/19 06:20 Assessment/Plan Assessment/Plan Problem List - Problems (1) Afib Code(s): I48.91 - UNSPECIFIED ATRIAL FIBRILLATION Qualifiers: Atrial fibrillation type: chronic Qualified Code(s): I48.2 - Chronic atrial fibrillation (2) Ataxia Code(s): R27.0 - ATAXIA, UNSPECIFIED (3) Diabetes Code(s): E11.9 - TYPE 2 DIABETES MELLITUS WITHOUT COMPLICATIONS (4) HTN (hypertension) Code(s): I10 - ESSENTIAL (PRIMARY) HYPERTENSION (5) Osteomyelitis Code(s): M86.9 - OSTEOMYELITIS, UNSPECIFIED (6) Schizophrenia Code(s): F20.9 - SCHIZOPHRENIA, UNSPECIFIED plan continue current mgmt monitor heart rate rest as per the team physio
--- NOTE | 2019-02-18 13:51 | PN ---
Progress Note (short form) - Note Progress Note: Ethics followup: I discussed the patients situation with the hospital health care attorney Elena Mcdowell ( conference call) in the office of Na Ortiz, the hospital television newscast director. Because he has been determined not to have medical decision making capacity and there are no surrogates available it is proper for his attending MD and a concurring MD to make medical decisions for the patient unless they involve life sustaining decisions at which point they would have to comply with the criteria noted in the Family health Care Decisions Act. The patient seems agreeable to certain decisions but cannot be forced into a treatment he resists even though he does not have medical decision making capacity. A suggestion was made that when he returns to [facility] they might want to pursue guardianship as he has no known surrogates.
[2019-02-18] MEDS: RIVAROXABAN 20 MG TABLET PO SCH (17:34)
--- NOTE | 2019-02-18 20:29 | PN ---
Progress Note, Physician - Current Medication List Current Medications: Active Medications Acetaminophen (Tylenol -) 650 mg PO Q6H PRN PRN Reason: FEVER Last Admin: 02/18/19 09:36 Dose: 650 mg Aripiprazole (Abilify) 5 mg PO DAILY [facility] Last Admin: 02/18/19 09:36 Dose: 5 mg Benztropine Mesylate (Cogentin -) 0.5 mg PO HS [facility] Last Admin: 02/17/19 21:20 Dose: 0.5 mg Diltiazem HCl (Cardizem Injection -) 10 mg IVPUSH Q4H PRN PRN Reason: TACHYCARDIA Last Admin: 02/16/19 15:59 Dose: 10 mg Diltiazem HCl (Cardizem -) 30 mg PO Q6HPO [facility] Last Admin: 02/18/19 17:34 Dose: 30 mg Iron Sucrose 200 mg/ Sodium (Chloride) 100 mls @ 100 mls/hr IVPB ONCE ONE Stop: 02/19/19 07:57 Insulin Aspart (Novolog Vial Sliding Scale -) 1 vial SQ BIDI [facility]; Protocol Last Admin: 02/18/19 17:34 Dose: 4 units Lisinopril (Prinivil) 2.5 mg PO DAILY [facility] Last Admin: 02/18/19 09:36 Dose: 2.5 mg Metoprolol Tartrate (Lopressor -) 50 mg PO QID [facility] Last Admin: 02/18/19 17:34 Dose: 50 mg Pantoprazole Sodium (Protonix -) 20 mg PO BID [facility] Last Admin: 02/18/19 09:36 Dose: 20 mg Rivaroxaban (Xarelto) 20 mg PO DAILY@1800 [facility] Last Admin: 02/18/19 17:34 Dose: 20 mg - Objective Vital Signs: Vital Signs Temperature 98 F 02/18/19 17:38 Pulse Rate 89 02/18/19 16:00 Respiratory Rate 20 02/18/19 16:00 Blood Pressure 96/67 02/18/19 16:00 O2 Sat by Pulse Oximetry (%) 92 L 02/18/19 10:52 Constitutional: Yes: No Distress HENT: Yes: Atraumatic Neck: Yes: Supple Cardiovascular: Yes: Regular Rate and Rhythm Respiratory: Yes: CTA Bilaterally Gastrointestinal: Yes: Normal Bowel Sounds Extremities: Yes: WNL Neurological: Yes: Alert, Oriented Labs: CBC, BMP 02/17/19 21:00 02/15/19 06:20 Problem List - Problems (1) Afib Assessment/Plan: on meds stable Code(s): I48.91 - UNSPECIFIED ATRIAL FIBRILLATION Qualifiers: Atrial fibrillation type: persistent (2) Ataxia Assessment/Plan: possible rehab Code(s): R27.0 - ATAXIA, UNSPECIFIED (3) Diabetes Assessment/Plan: insulin sliding scale and bgms Code(s): E11.9 - TYPE 2 DIABETES MELLITUS WITHOUT COMPLICATIONS (4) HTN (hypertension) Code(s): I10 - ESSENTIAL (PRIMARY) HYPERTENSION Qualifiers: Hypertension type: essential hypertension Qualified Code(s): I10 - Essential (primary) hypertension (5) Osteomyelitis Code(s): M86.9 - OSTEOMYELITIS, UNSPECIFIED (6) Schizophrenia Assessment/Plan: continue home meds Code(s): F20.9 - SCHIZOPHRENIA, UNSPECIFIED (7) Anemia Code(s): D64.9 - ANEMIA, UNSPECIFIED Qualifiers: Anemia type: unspecified type Qualified Code(s): D64.9 - Anemia, unspecified (8) Septic arthritis Code(s): M00.9 - PYOGENIC ARTHRITIS, UNSPECIFIED
[2019-02-18] MEDS ORDERED: PT OWN MED DRAWER 7, Y5N ONE (22:24)
[2019-02-18] MEDS: BENZTROPINE MESYLATE 0.5 MG TABLET (FP) PO SCH (22:29)
[2019-02-19] MEDS ORDERED: PT OWN MED DRAWER 7, Y5N ONE ×2 (00:04→06:05)
[2019-02-19] MEDS: PANTOPRAZOLE 20 MG TABLET (FP) PO SCH ×3 (00:49→21:05)
[2019-02-19] MEDS: dilTIAZem HCL 30 MG TABLET (FP) PO SCH ×4 (01:17→16:13)
--- NOTE | 2019-02-19 06:30 | PN ---
Progress Note (short form) - Note Progress Note: Chief Complaint: Events noted, notes reviewed, denies any chest discomfort, denies any dyspnea, atrial fibrillation is persistent with controlled ventricular rates History of Present Illness: Seen and examined on telemetry. Events noted, notes reviewed, denies any chest discomfort, denies any dyspnea, atrial fibrillation is persistent with controlled ventricular rates Medications: Current Medications Acetaminophen (Tylenol -) 650 mg PO Q6H PRN PRN Reason: FEVER Last Admin: 02/18/19 09:36 Dose: 650 mg Aripiprazole (Abilify) 5 mg PO DAILY [facility] Last Admin: 02/18/19 09:36 Dose: 5 mg Benztropine Mesylate (Cogentin -) 0.5 mg PO HS [facility] Last Admin: 02/18/19 22:29 Dose: 0.5 mg Diltiazem HCl (Cardizem Injection -) 10 mg IVPUSH Q4H PRN PRN Reason: TACHYCARDIA Last Admin: 02/16/19 15:59 Dose: 10 mg Diltiazem HCl (Cardizem -) 30 mg PO Q6HPO [facility] Last Admin: 02/19/19 06:09 Dose: 30 mg Iron Sucrose 200 mg/ Sodium (Chloride) 100 mls @ 100 mls/hr IVPB ONCE ONE Stop: 02/19/19 07:57 Last Admin: 02/19/19 06:10 Dose: 100 mls/hr Insulin Aspart (Novolog Vial Sliding Scale -) 1 vial SQ BIDI [facility]; Protocol Last Admin: 02/18/19 17:34 Dose: 4 units Lisinopril (Prinivil) 2.5 mg PO DAILY [facility] Last Admin: 02/18/19 09:36 Dose: 2.5 mg Metoprolol Tartrate (Lopressor -) 50 mg PO QID [facility] Last Admin: 02/18/19 22:30 Dose: Not Given Pantoprazole Sodium (Protonix -) 20 mg PO BID [facility] Last Admin: 02/19/19 00:49 Dose: Not Given Rivaroxaban (Xarelto) 20 mg PO DAILY@1800 [facility] Last Admin: 02/18/19 17:34 Dose: 20 mg Review of Systems - Review of Systems Constitutional: No symptoms reported Respiratory: denies: Cough or Sputum Production Cardiovascular: as noted above Gastrointestinal: denies Nausea, Vomiting, Diarrhea, Constipation or Abdominal Pain Genitourinary: No symptoms reported Musculoskeletal: No symptoms reported Endocrine: No symptoms reported Vital Signs: Last Vital Signs Temp Pulse Resp BP Pulse Ox 97.8 F 76 19 88/60 L 93 L 02/18/19 21:00 02/19/19 01:00 02/19/19 01:00 02/19/19 01:00 02/18/19 21:00 Intake & Output 02/16/19 02/17/19 02/18/19 02/19/19 23:59 23:59 23:59 23:59 Intake Total 540 640 100 Output Total 1750 1350 2110 Balance -1210 -710 Weight 171 lb 6 oz 175 lb Constitutional: No Distress, Calm Neck: Supple Negative JVD No Bruit Respiratory: Diminished Breath Sounds at the Bases Cardiovascular: S1 S2 irregularly irregular Gastrointestinal: Soft Benign Normal Bowel Sounds Ext: No Edema Labs: CBC, BMP 02/17/19 21:00 02/15/19 06:20 Hepatic Panel Total Bilirubin 0.5 mg/dL (0.2-1) 02/15/19 06:20 AST 26 U/L (15-37) 02/15/19 06:20 ALT 35 U/L (13-61) 02/15/19 06:20 Alkaline Phosphatase 139 U/L (45-117) H 02/15/19 06:20 Albumin 1.9 g/dl (3.4-5.0) L 02/15/19 06:20 Assessment/Plan ASSESSMENT: 1. Persistent atrial fibrillation with improved/controlled ventricular response - rates, [id number] score of 5 on DOAC's/Xarelto 2. Coronary artery disease with evidence of demand ischemia no clinical angina pectoris 3. Diastolic left ventricular dysfunction with clinical class 0 [place] [employer] classification left ventricular failure 4. Hypertensive cardiovascular disease 5. Diabetes mellitus 6. Hypercholesterolemia 7. History of cerebrovascular disease 8. History of schizophrenia 9. History of ataxia 10. History of osteomyelitis 11. Anemia 12. Hyponatremia PLAN: 1. Continue Lopressor but decrease to 50 mg 3 times daily (and as outlined may switch to Toprol-XL once patient is ready for discharge), hemodynamics permitting 2. Continue Prinivil, hemodynamics permitting 3. Continue Cardizem but decrease to 30 mg 3 times daily (and as outlined may switch to Cardizem CD once patient is ready for discharge), hemodynamics permitting 4. Continue Xarelto with close monitoring of hemoglobin level, maintain hemoglobin equal or greater than 8.0 5. Continue diuretic therapy/Lasix therapy/as needed with close monitoring of renal function and electrolytes 6. Await repeat blood test from this AM, follow Hg and may transfuse if Hg equal or < 8.0, follow Na level Ubaldo Kim M.D.
[2019-02-19] MEDS ORDERED: INSULIN (NOVOLOG) ASPART 100 UNITS/ML 10ML VIAL ONE (06:35)
[2019-02-19] MEDS: INSULIN SLIDING SCALE (NOVOLOG) 1 VIAL SQ SCH ×2 (06:49→16:38)
[2019-02-19] MEDS ORDERED: IRON SUCROSE INJECTION 200 MG in SODIUM CHLORIDE 90 ML IVPB ONE (06:58)
[2019-02-19] MEDS: ARIPiprazole 5 MG TABLET (FP) PO SCH (09:16)
[2019-02-19] MEDS: LISINOPRIL 5 MG TABLET (FP) PO SCH (09:16)
[2019-02-19] MEDS: METOPROLOL TARTRATE 50 MG TABLET (FP) PO SCH ×2 (14:12→21:05)
--- NOTE | 2019-02-19 16:38 | DS ---
Physical Examination Vital Signs: Vital Signs Temperature 98 F 02/19/19 13:58 Pulse Rate 96 H 02/19/19 13:58 Respiratory Rate 16 02/19/19 13:58 Blood Pressure 91/69 02/19/19 13:58 O2 Sat by Pulse Oximetry (%) 93 L 02/19/19 09:00 Constitutional: Yes: No Distress HENT: Yes: Atraumatic Neck: Yes: Supple Cardiovascular: Yes: Regular Rate and Rhythm Respiratory: Yes: CTA Bilaterally Gastrointestinal: Yes: Normal Bowel Sounds Extremities: Yes: WNL Edema: No Peripheral Pulses WNL: Yes Labs: CBC, BMP 02/17/19 21:00 02/15/19 06:20 Discharge Summary Reason For Visit: AFIB ATAXIA MRSA Current Active Problems Afib (Acute) Anemia (Acute) Ataxia (Acute) Demand ischemia (Acute) Diastolic dysfunction (Acute) Effusion, right knee (Acute) Septic arthritis (Acute) Condition: Stable - Instructions Diet, Activity, Other Instructions: pt need snf gi folow up as out patient fu cbc Referrals: Damion Vargas DO [Staff Physician] - Matthew Wilson MD [Staff Physician] - - Home Medications Comprehensive Discharge Medication List: Ambulatory Orders Acetaminophen [Tylenol] 650 mg PO Q6H PRN 09/05/18 Aripiprazole [Abilify -] 5 mg PO DAILY 09/05/18 Furosemide [Lasix] 20 mg PO DAILY 5 Days #5 tablet 12/09/18 Benztropine Mesylate [Cogentin -] 0.5 mg PO DAILY 01/13/19 Haloperidol [Haldol -] 0.5 mg PO DAILY 01/13/19 Insulin Sliding Scale [Novolog Vial Sliding Scale -] 0 unit SQ BID 01/13/19 Omeprazole Magnesium [Prilosec Otc] 20 mg PO BID 01/13/19 Rivaroxaban [Xarelto -] 20 mg PO DAILY@1800 #30 tablet 01/16/19 Diltiazem [Cardizem -] 30 mg PO Q6HPO #120 tablet 02/03/19 Metoprolol Tartrate [Lopressor -] 50 mg PO QID #120 tablet 02/03/19
--- NOTE | 2019-02-19 17:06 | DS ---
Physical Examination Vital Signs: Vital Signs Temperature 98 F 02/19/19 13:58 Pulse Rate 96 H 02/19/19 13:58 Respiratory Rate 16 02/19/19 13:58 Blood Pressure 91/69 02/19/19 13:58 O2 Sat by Pulse Oximetry (%) 93 L 02/19/19 09:00 Labs: CBC, BMP 02/17/19 21:00 02/15/19 06:20 Discharge Summary Reason For Visit: AFIB ATAXIA MRSA Current Active Problems Afib (Acute) Anemia (Acute) Ataxia (Acute) Demand ischemia (Acute) Diastolic dysfunction (Acute) Effusion, right knee (Acute) Septic arthritis (Acute) Condition: Stable - Instructions Diet, Activity, Other Instructions: pt need snf gi folow up as out patient fu cbc Referrals: Damion Vargas DO [Staff Physician] - Matthew Wilson MD [Staff Physician] - - Home Medications Comprehensive Discharge Medication List: Ambulatory Orders Acetaminophen [Tylenol] 650 mg PO Q6H PRN 09/05/18 Aripiprazole [Abilify -] 5 mg PO DAILY 09/05/18 Furosemide [Lasix] 20 mg PO DAILY 5 Days #5 tablet 12/09/18 Benztropine Mesylate [Cogentin -] 0.5 mg PO DAILY 01/13/19 Haloperidol [Haldol -] 0.5 mg PO DAILY 01/13/19 Insulin Sliding Scale [Novolog Vial Sliding Scale -] 0 unit SQ BID 01/13/19 Omeprazole Magnesium [Prilosec Otc] 20 mg PO BID 01/13/19 Rivaroxaban [Xarelto -] 20 mg PO DAILY@1800 #30 tablet 01/16/19 Diltiazem [Cardizem -] 30 mg PO Q8H tablet 02/19/19 Lisinopril [Prinivil] 2.5 mg PO DAILY tablet 02/19/19 Metoprolol Succinate 100 mg PO BID #30 tab.er.24h 02/19/19
[2019-02-19 17:53] LABS: BASO % 0.7 % (0-2.0); EOS % 1.6 % (0-4.5); HEMATOCRIT 26.6 % (35.4-49); HEMOGLOBIN 8.3 GM/dL (11.7-16.9); LYMPH % 7.7 % (8-40); MCHC 31.2 g/dl (32.0-35.9); MEAN CELL VOLUME 73.7 fl (80-96); MEAN PLT VOLUME 7.5 fl (7.5-11.1); MONO % 8.3 % (3.8-10.2); NEUT % 81.7 % (42.8-82.8); PLATELET COUNT 348 K/MM3 (134-434); RDW 26.8 % (11.9-15.9)
[2019-02-19 18:39] LABS: ANISOCYTOSIS 2+; PLATELET ESTIMATE NORMAL; TEAR DROP CELLS 1+
[2019-02-19] MEDS: RIVAROXABAN 20 MG TABLET PO SCH (18:39)
[2019-02-19 19:00] LABS: ALBUMIN 1.8 g/dl (3.4-5.0); BILIRUBIN,TOTAL 0.2 mg/dL (0.2-1); BLOOD UREA NITROGEN 14.9 mg/dL (7-18); CALCIUM 7.9 mg/dL (8.5-10.1); CREATININE 0.5 mg/dL (0.55-1.3); POTASSIUM 4.3 mmol/L (3.5-5.1); TOT PROT 6.8 g/dl (6.4-8.2)
[2019-02-19] MEDS: BENZTROPINE MESYLATE 0.5 MG TABLET (FP) PO SCH (21:05)
[2019-02-19 21:06] VITALS: BP 90/70; PULSE 85; TEMP 98.4
== END 2019-02-19 22:05 | DRG 351 ==
LOC: JER 09:28 → INTOOBSV 14:51 → UNDOADMOB 14:51 → JERBED 14:51 → J2W 21:27 → OBSVTOIN 01-15 09:05 → UNDODISIN 01-22 18:00
PROVIDERS: ADMIT Internal Medicine; ATTEND Internal Medicine
PROC: 0S9C3ZX Drainage of Right Knee Joint, Percutaneous Approach, Diagnostic (ICD-10-PCS; principal; 2019-02-07)
DX: M25.461 Effusion, right knee (principal); E11.9 Type 2 diabetes mellitus without complications; I10 Essential (primary) hypertension; F03.90 Unspecified dementia, unspecified severity, without behavioral disturbance, psychotic disturbance, mood disturbance, and anxiety; F20.89 Other schizophrenia; K21.9 Gastro-esophageal reflux disease without esophagitis; I48.20 Chronic atrial fibrillation, unspecified; E11.69 Type 2 diabetes mellitus with other specified complication; R00.0 Tachycardia, unspecified; M86.8X8 Other osteomyelitis, other site; I24.8 Other forms of acute ischemic heart disease; M25.561 Pain in right knee; L03.90 Cellulitis, unspecified; E11.51 Type 2 diabetes mellitus with diabetic peripheral angiopathy without gangrene; M86.9 Osteomyelitis, unspecified; F79 Unspecified intellectual disabilities; M17.11 Unilateral primary osteoarthritis, right knee; I11.0 Hypertensive heart disease with heart failure; I50.32 Chronic diastolic (congestive) heart failure; I25.10 Atherosclerotic heart disease of native coronary artery without angina pectoris; E87.1 Hypo-osmolality and hyponatremia; D50.0 Iron deficiency anemia secondary to blood loss (chronic); I69.993 Ataxia following unspecified cerebrovascular disease; B95.62 Methicillin resistant Staphylococcus aureus infection as the cause of diseases classified elsewhere; Z87.891 Personal history of nicotine dependence
CPT/HCPCS: 36415; 36430; 36511; 70450-TC; 71045-TC-FY; 72131-TC; 73560-TC-RT-FY; 80048; 80053; 80061; 81003; 82140; 82272; 82550; 82607; 82728; 82962; 83540; 83550; 83721; 84443; 84484; 84550; 85025; 85027; 85651; 86140; 86850; 86900; 86901; 86922; 87040; 87070; 87075; 87086; 87205; 89051; 89060; 93005; 93010; 93306-TC; 97116-GP; 97161-GP; 99285-25; G0378; G0480; J1644; J1756; P9038; P9058

== ENCOUNTER 2019-03-07 12:23 | Inpatient (IN) | payer OTHER ==
--- NOTE | 2019-03-07 13:30 | PDOC ---
History of Present Illness - General Chief Complaint: Abnormal Lab Results (Outside) Stated Complaint: Abnormal Lab Results Time Seen by Provider: 03/07/19 12:38 History Source: Patient Exam Limitations: No Limitations - History of Present Illness Initial Comments: 03/10/19 04:44 HPI: 68M PMH schizophrenia, afib on xarelto, DM, HLD, CAD presenting from [facility] for r /o TB. Per report given to ED staff by MS, pt had an indeterminate quantiferon and abnormal CXR. Pt asymptomatic w/o cough, fever/chills. Denies hemoptysis, night sweats, weight loss. SH: pt is a resident at [facility], [place], recently admitted to [facility] for weakness RLE > LLE and sent to [facility] [place]. Past History - Past Medical History Allergies/Adverse Reactions: Allergies Allergy/AdvReac Type Severity Reaction Status Date / Time chlorpromazine Allergy Verified 03/07/19 13:12 [From Thorazine] torazine Allergy Uncoded 03/07/19 13:12 Home Medications: Ambulatory Orders Acetaminophen [Tylenol] 650 mg PO Q6H PRN 09/05/18 Aripiprazole [Abilify -] 5 mg PO DAILY 09/05/18 Furosemide [Lasix] 20 mg PO DAILY 5 Days #5 tablet 12/09/18 Benztropine Mesylate [Cogentin -] 0.5 mg PO DAILY 01/13/19 Insulin Sliding Scale [Novolog Vial Sliding Scale -] 0 unit SQ BID 01/13/19 Rivaroxaban [Xarelto -] 20 mg PO DAILY@1800 #30 tablet 01/16/19 Diltiazem [Cardizem -] 30 mg PO Q8H tablet 02/19/19 Lisinopril [Prinivil] 2.5 mg PO DAILY tablet 02/19/19 Metoprolol Succinate 100 mg PO BID #30 tab.er.24h 02/19/19 Ascorbate Calcium [Vitamin C] 500 mg PO DAILY 03/07/19 Calcium Carbonate/Vitamin D3 [Oystercal-D 500 mg-400 Unit Tb] 1 each PO DAILY Ferrous Sulfate 325 mg PO DAILY 03/07/19 Cardiac Disorders: Yes (Atial Fib) COPD: No CHF: Yes Diabetes: Yes GI Disorders: Yes (gerd) Disorders: No HTN: Yes Psychiatric Problems: Yes (schizophrenia, dementia) - Surgical History Orthopedic Surgery: Yes (L knee) - Immunization History Immunization Up to Date: Yes - Psycho Social/Smoking Cessation Hx Smoking History: Unknown if ever smoked Have you smoked in the past 12 months: No Number of Cigarettes Smoked Daily: 3 Information on smoking cessation initiated: No Hx Alcohol Use: No Drug/Substance Use Hx: No Substance Use Type: None Review of Systems - Review of Systems Able to Perform ROS?: Yes Comments:: 03/10/19 04:44 ROS: CONSTITUTIONAL: Denies F / C RESP: Denies SOB, cough, hemoptysis CARD: Denies chest pain GI: Denies N / V / D, abdominal pain, inability to tolerate PO : Denies dysuria, frequency Is the patient limited American proficient: No *Physical Exam - Vital Signs Last Vital Signs Temp Pulse Resp BP Pulse Ox 98.0 F 92 H 17 106/69 95 03/07/19 13:13 03/07/19 13:13 03/07/19 13:13 03/07/19 13:13 03/07/19 13:13 - Physical Exam Comments: 03/10/19 04:44 PE: GEN: NAD, comfortable. HEENT: NC/AT, EOMI, PERRLA. No facial asymmetry. Moist mucous membranes. Normal voice. Supple neck w/ FROM. CV: S1/S2, RRR, no m/r/g LUNG: CTAB, no wheezes, crackles, rales, rhonchi. GI: soft, ndnt, +BS, no guarding, no rebound. EXTREMITIES: 2+ distal pulses. No LE edema. No obvious deformities of all extremities. SKIN: warm, dry, normal turgor PSYCH: odd affect NEURO: Moving all extremities well. ED Treatment Course - LABORATORY CBC & Chemistry Diagram: 03/09/19 09:10 03/09/19 09:10 Medical Decision Making - Medical Decision Making 03/07/19 13:29 MDM: 68M sent from [facility] for r/o TB 2/2 interdeterminate quantiferon and abnormal CXR. Asymptomatic w/o cough, hemoptysis, fever, night sweats, weight loss. - CXR - CT Chest 03/07/19 14:44 f/u CXR read 03/07/19 18:03 CT Chest IMPRESSION: - An approximately 5 x 4.5 x 4.5 cm right upper lobe mass lesion is noted posteriorly with associated partial erosion of the subjacent T3 vertebral body and right third rib. - Mediastinal and right hilar lymphadenopathy is noted. - A 1.4 x 1 cm polypoid lesion is noted within the right mainstem bronchus probably on the basis of transbronchial extension from contiguous lymphadenopathy. - Moderate right-sided and small to moderate left-sided pleural effusions are noted. - Mild right upper lobe opacity is seen probably on the basis of mild postobstructive atelectasis and /or infiltrate. - There is nonspecific enlargement of the left adrenal gland. - Cardiomegaly. - Small pericardial effusion. Admit Dr. Zuñiga, [facility] c/s 03/07/19 18:23 Admit to [facility], awaiting to endorse Spoke to Dr. Zuñiga - [facility] c/s, will see tomorrow, CT findings need to be worked up, requests pulm c/s 03/07/19 18:[address] Luna - will see pt; requesting AFB 03/07/19 18:46 // ADMITTED M/S 03/10/19 04:44 Discharge - Discharge Information Problems reviewed: Yes Clinical Impression/Diagnosis: Abnormal laboratory results for respiratory system Condition: Stable - Admission Yes - Follow up/Referral - Patient Discharge Instructions - Post Discharge Activity
--- NOTE | 2019-03-07 15:39 | PDOC ---
Documentation entered by Oralia Handy SCRIBE, acting as scribe for Saida Romero MD. Saida Romero MD: This documentation has been prepared by the Ole olmedo Nirvannie, SCRIBE, under my direction and personally reviewed by me in its entirety. I confirm that the documentation accurately reflects all work, treatment, procedures, and medical decision making performed by me. Attending Attestation - Resident Resident Name: MonteiroMark - ED Attending Attestation I have performed the following: I have examined & evaluated the patient, The case was reviewed & discussed with the resident, I agree w/resident's findings & plan - HPI HPI: 03/07/19 14:03 The patient is a 68 year old male, with a significant past medical history of HTN, DM, Afib, schizophrenia, and L leg osteomyelitis, who presents to the emergency department via EMS from [facility] with, indeterminate quantiferon and abnormal chest x-ray to rule out TB. He denies any cough, chest pain, shortness of breath, fevers, chills, hemoptysis. 03/07/19 14:32 - Physicial Exam PE: 03/07/19 15:01 GENERAL: The patient is in no acute distress. ENT: Ears normal, nares patent, oropharynx clear without exudates. Moist mucous membranes. NECK: Normal range of motion, supple LUNGS: Breath sounds equal, clear to auscultation bilaterally. No wheezes, and no crackles. HEART:Regular rate and rhythm, normal S1 and S2 without murmur, rub or gallop. ABDOMEN: Soft, nontender, normoactive bowel sounds. EXTREMITIES: Right knee pain, tenderness, limited range of motion NEUROLOGICAL: Cranial nerves II through XII grossly intact. Normal speech. No focal neurological deficits. SKIN: Warm, Dry, normal turgor, no rashes or lesions noted. - Medical Decision Making 03/07/19 15:02 68-year-old male presenting to the emergency department from [facility] for assessment of abnormal chest x-ray and indeterminate QuantiFERON testing Patient has no complaints at this time We will do: Repeat chest x-ray Basic labs Consider CT scanning Admit Labs pending CT pending Signed out to Dr. Camilo
[2019-03-07 16:38] LABS: BASO % 0.9 % (0-2.0); EOS % 2.4 % (0-4.5); HEMOGLOBIN 9.3 GM/dL (11.7-16.9); LYMPH % 8.7 % (8-40); MCH 24.2 pg (25.7-33.7); MEAN PLT VOLUME 7.5 fl (7.5-11.1); MONO % 6.8 % (3.8-10.2); NEUT % 81.2 % (42.8-82.8); PLATELET COUNT 340 K/MM3 (134-434); RBC 3.85 M/mm3 (4.00-5.60); RDW 28.6 % (11.9-15.9); WHITE BLOOD COUNT 11.3 K/mm3 (4.0-10.0)
[2019-03-07 17:13] LABS: ALBUMIN 2.2 g/dl (3.4-5.0); BILIRUBIN,TOTAL 0.4 mg/dL (0.2-1); BLOOD UREA NITROGEN 12.5 mg/dL (7-18); CALCIUM 8.4 mg/dL (8.5-10.1); CREATININE 0.5 mg/dL (0.55-1.3); POTASSIUM 5.4 mmol/L (3.5-5.1); TOT PROT 7.4 g/dl (6.4-8.2)
[2019-03-07 18:32] LABS: ANISOCYTOSIS 2+; MACROCYTOSIS 1+; OVALOCYTE 1+
[2019-03-07 18:33] LABS: PLATELET ESTIMATE ADEQUATE
[2019-03-07] MEDS ORDERED: AZITHROMYCIN IVPB 500 MG/250 ML BAG IVPB ONE (20:09)
--- NOTE | 2019-03-07 20:17 | HP ---
Admitting History and Physical - Admission Chief Complaint: Referred from [facility] for indeterminate quantiferone test and abnormal chest Xray History of Present Illness: Pt is a 68 yo M PMHx schizophrenia, MDD, tremors, afib on xarelto, DM, HLD, Anemia, CAD, RLE osteomyelitis diagnosed in 2018, presenting from [facility] for an indeterminate quantiferon and abnormal CXR. Pt denies cough, weight loss, night sweats. Due to schizophrenia, it is unclear if pts report is reliable. Per pt, he was noted to have TB in his blood work, but unclear for how long. Pt has been in [facility] following discharge for RLE weakness at which time he refused endoscopy for anemia. No prior CYT chest noted in chart CT chest: Shows non calcified mass with lymphadenopathy and b/l loculated pleural effusions Pulm and ID consulted by ED H/H-9.3, WBC-11.3, K-5.4, CO2-33, History Source: Patient, Medical Record - Past Medical History Cardiovascular: Yes: AFIB, HTN Psych: Yes: Schizophrenia - Past Surgical History Additional Past Surgical History: Lap after swallowing a coin - Smoking History Smoking history: Unknown if ever smoked Have you smoked in the past 12 months: No Aproximately how many cigarettes per day: 3 - Alcohol/Substance Use Hx Alcohol Use: No - Social History Usual Living Arrangement: Yes: [employer] 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 Travel: No Home Medications - Allergies Allergies/Adverse Reactions: Allergies Allergy/AdvReac Type Severity Reaction Status Date / Time chlorpromazine Allergy Verified 03/07/19 13:12 [From Thorazine] torazine Allergy Uncoded 03/07/19 13:12 - Home Medications Home Medications: Ambulatory Orders Acetaminophen [Tylenol] 650 mg PO Q6H PRN 09/05/18 Aripiprazole [Abilify -] 5 mg PO DAILY 09/05/18 Furosemide [Lasix] 20 mg PO DAILY 5 Days #5 tablet 12/09/18 Benztropine Mesylate [Cogentin -] 0.5 mg PO DAILY 01/13/19 Insulin Sliding Scale [Novolog Vial Sliding Scale -] 0 unit SQ BID 01/13/19 Rivaroxaban [Xarelto -] 20 mg PO DAILY@1800 #30 tablet 01/16/19 Diltiazem [Cardizem -] 30 mg PO Q8H tablet 02/19/19 Lisinopril [Prinivil] 2.5 mg PO DAILY tablet 02/19/19 Metoprolol Succinate 100 mg PO BID #30 tab.er.24h 02/19/19 Ascorbate Calcium [Vitamin C] 500 mg PO DAILY 03/07/19 Calcium Carbonate/Vitamin D3 [Oystercal-D 500 mg-400 Unit Tb] 1 each PO DAILY Ferrous Sulfate 325 mg PO DAILY 03/07/19 Family Medical History Family History: Unable to Obtain Review of Systems - Review of Systems Constitutional: reports: No Symptoms Eyes: reports: No Symptoms HENT: reports: No Symptoms Neck: reports: No Symptoms Cardiovascular: reports: No Symptoms Respiratory: reports: No Symptoms Gastrointestinal: reports: No Symptoms Genitourinary: reports: No Symptoms Breasts: reports: No Symptoms Reported Musculoskeletal: reports: Joint Pain (R knee), Muscle Weakness Neurological: reports: Pre-Existing Deficit (Weakness 3/5 RLE hip flexion Knee flexion 4/5). denies: Change in LOC, Numbness Physical Examination Vital Signs: Vital Signs Temperature 98.2 F 03/07/19 20:05 Pulse Rate 92 H 03/07/19 20:05 Respiratory Rate 20 03/07/19 20:05 Blood Pressure 110/69 03/07/19 20:05 O2 Sat by Pulse Oximetry (%) 97 03/07/19 20:05 Constitutional: Yes: Calm Eyes: Yes: Conjunctiva Clear, EOM Intact. No: Sclera Icterus HENT: Yes: Atraumatic. No: Pharyngeal Erythema, Thrush Neck: Yes: Supple Cardiovascular: Yes: Pulse Irregular, S1, S2. No: Murmur Respiratory: Yes: Rhonchi, Wheezes Gastrointestinal: Yes: Normal Bowel Sounds. No: Tenderness ...Rectal Exam: Yes: Deferred Renal/: No: CVA Tenderness - Left, CVA Tenderness - Right Musculoskeletal: Yes: Muscle Weakness (RLE) Edema: No Peripheral Pulses WNL: Yes Neurological: Yes: Alert, Oriented, Pre-Existing Deficit. No: Loss of Sensation , Numbness, Paresthesia ...Motor Strength: RLE (4/5, 3/5) Psychiatric: Yes: Alert, Oriented Labs: CBC, BMP 03/07/19 16:17 03/07/19 16:17 Imaging - Results Chest X-ray: Image Reviewed Cat Scan: Report Reviewed (An approximately 5 x 4.5 x 4.5 cm right upper lobe mass lesion is noted posteriorly with associated partial erosion of the subjacent T3 vertebral body and right third rib. - Mediastinal and right hilar lymphadenopathy is noted. - A 1.4 x 1 cm polypoid lesion is noted within the right mainstem bronchus probably on the basis of transbronchial extension from contiguous lymphadenopathy. - Moderate right-sided and small to moderate left- sided pleural effusions are noted. - Mild right upper lobe opacity is seen probably on the basis of mild postobstructive atelectasis and or infiltrate. - There is nonspecific enlargement of the left adrenal gland. - Cardiomegaly. - Small pericardial effusion.), Image Reviewed Assessment/Plan Ambulatory Orders Acetaminophen [Tylenol] 650 mg PO Q6H PRN 09/05/18 Aripiprazole [Abilify -] 5 mg PO DAILY 09/05/18 Furosemide [Lasix] 20 mg PO DAILY 5 Days #5 tablet 12/09/18 Benztropine Mesylate [Cogentin -] 0.5 mg PO DAILY 01/13/19 Insulin Sliding Scale [Novolog Vial Sliding Scale -] 0 unit SQ BID 01/13/19 Rivaroxaban [Xarelto -] 20 mg PO DAILY@1800 #30 tablet 01/16/19 Diltiazem [Cardizem -] 30 mg PO Q8H tablet 02/19/19 Lisinopril [Prinivil] 2.5 mg PO DAILY tablet 02/19/19 Metoprolol Succinate 100 mg PO BID #30 tab.er.24h 02/19/19 Ascorbate Calcium [Vitamin C] 500 mg PO DAILY 03/07/19 Calcium Carbonate/Vitamin D3 [Oystercal-D 500 mg-400 Unit Tb] 1 each PO DAILY Ferrous Sulfate 325 mg PO DAILY 03/07/19 Current Medications Aripiprazole (Abilify) 5 mg PO DAILY [facility] Ascorbic Acid (Vitamin C -) 500 mg PO DAILY [facility] Benztropine Mesylate (Cogentin -) 0.5 mg PO DAILY [facility] Calcium Carbonate (Os-Davey 500mg -) 500 mg PO DAILY [facility] Cholecalciferol (Vitamin D3 -) 400 unit PO DAILY [facility] Diltiazem HCl (Cardizem -) 30 mg PO TID [facility] Ferrous Sulfate (Feosol -) 325 mg PO DAILY [facility] Furosemide (Lasix -) 20 mg PO DAILY [facility] Azithromycin 250 mg/ Dextrose 250 mls @ 250 mls/hr IVPB DAILY [facility] Ceftriaxone Sodium 1 gm/ (Dextrose) 50 mls @ 100 mls/hr IVPB DAILY [facility]; Protocol Last Admin: 03/07/19 21:45 Dose: 100 mls/hr Insulin Aspart (Novolog Vial Sliding Scale -) 1 vial SQ ACHS [facility]; Protocol Last Admin: 03/07/19 21:47 Dose: 2 units Lisinopril (Prinivil) 2.5 mg PO DAILY [facility] Metoprolol Succinate (Toprol Xl -) 100 mg PO BID [facility] Last Admin: 03/08/19 00:12 Dose: 100 mg Rivaroxaban (Xarelto) 20 mg PO DAILY@1800 [facility] Assessment/Plan: Pt is a 68 yo M PMHx schizophrenia, MDD, tremors, afib on xarelto, DM, HLD, Anemia, CAD, RLE osteomyelitis diagnosed in 2018, presenting from [facility] for an indeterminate quantiferon and abnormal CXR. Lung mass R/O TB vs CAP Indeterminate quantiferon sputum induction for Sputum AFB cx , AFB PCR Legionella AG HIV test Hep Panel Sputum cx Ceftriaxone/azithro PPD Airborne precautions Pulm consult ID consult- Dr Zuñiga schizophrenia- cont abilify MDD- cont abilify tremors- cont bentropine afib on xarelto, cont, dilt, metoprolol DM- ISS, BGM ACHS HLD Anemia-cont iron tabs CAD- cont aspirin RLE osteomyelitis Pt may benefit from bronchoscopy and thoracocentesis D/W Dr Spann [facility] PGY 3 Visit type - Emergency Visit Emergency Visit: Yes ED Registration Date: 03/07/19 Care time: The patient presented to the Emergency Department on the above date and was hospitalized for further evaluation of their emergent condition. - New Patient This patient is new to me today: Yes Date on this admission: 03/08/19 - Critical Care Critical Care patient: No ATTENDING PHYSICIAN STATEMENT I saw and evaluated the patient. I reviewed the resident's note and discussed the case with the resident. I agree with the resident's findings and plan as documented. SUBJECTIVE: OBJECTIVE: ASSESSMENT AND PLAN:
--- NOTE | 2019-03-07 20:42 | PN ---
Teaching Attending Note Name of Resident: Estrella Bowles ATTENDING PHYSICIAN STATEMENT I saw and evaluated the patient. I reviewed the resident's note and discussed the case with the resident. I agree with the resident's findings and plan as documented. SUBJECTIVE: 68-year-old man with persistent atrial fibrillation with a chads VASC score of 5 on DO AC, CAD with demand ischemia, diastolic dysfunction with class 0 NYHA heart failure, diabetes, hypertension, dyslipidemia, schizophrenia, left foot osteomyelitis s/p treatment with IV abx, CVA, anemia who was sent from [facility] because he was found to have an indeterminate QuantiFERON and abnormal chest x-ray. Patient was otherwise asymptomatic not complaining of any cough, hemoptysis, fever, or night sweats. Infectious disease and pulmonary were consulted from the ER and are aware of case. On imaging patient was found to have a 5 x 4.5 x 4.5cm right upper lobe mass associated with partial erosion of adjacent T3 vertebral body and right third rib. OBJECTIVE: Last Vital Signs Temp Pulse Resp BP Pulse Ox 98.2 F 92 H 20 110/69 97 03/07/19 20:05 03/07/19 20:05 03/07/19 20:05 03/07/19 20:05 03/07/19 20:05 GENERAL: Well developed, well nourished. Awake and alert. No acute distress.Appears disheveled HEENT: Normocephalic, atraumatic. PERRLA, EOMI. No conjunctival pallor. Sclera are non- icteric. Moist mucous membranes. Oropharynx is clear. NECK: Supple. Full ROM. No JVD. Carotid pulses 2+ and symmetric, without bruits. No thyromegaly. No lymphadenopathy. CARDIOVASCULAR: Regular rate and rhythm. No murmurs, rubs, or gallops. Distal pulses are 2+ and symmetric. PULMONARY: Bilateral air entry sounds appreciated, No wheezing, rales, or crackles ABDOMINAL: Soft. Non-tender. Non-distended. No rebound or guarding. No organomegaly. Normoactive bowel sounds. MUSCULOSKELETAL Normal range of motion at all joints. No bony deformities or tenderness. No CVA tenderness. EXTREMITIES: No cyanosis. No clubbing. No edema. No calf tenderness. SKIN: Warm and dry. Normal capillary refill. No rashes. No jaundice. PSYCHIATRIC: Cooperative. Good eye contact. Appropriate mood and affect. Abnormal Lab Results 03/07/19 03/07/19 16:17 16:17 WBC 11.3 H RBC 3.85 L Hgb 9.3 L Hct 30.0 L MCV 78.0 L MCH 24.2 L MCHC 31.0 L RDW 28.6 H Absolute Neuts (auto) 9.1 H Potassium 5.4 H Carbon Dioxide 33 H Anion Gap 2 L Creatinine 0.5 L Calcium 8.4 L Alkaline Phosphatase 129 H Albumin 2.2 L Imaging reviewed 03/07/19 18:03 CT Chest IMPRESSION: - An approximately 5 x 4.5 x 4.5 cm right upper lobe mass lesion is noted posteriorly with associated partial erosion of the subjacent T3 vertebral body and right third rib. - Mediastinal and right hilar lymphadenopathy is noted. - A 1.4 x 1 cm polypoid lesion is noted within the right mainstem bronchus probably on the basis of transbronchial extension from contiguous lymphadenopathy. - Moderate right-sided and small to moderate left-sided pleural effusions are noted. - Mild right upper lobe opacity is seen probably on the basis of mild postobstructive atelectasis and or infiltrate. - There is nonspecific enlargement of the left adrenal gland. - Cardiomegaly. - Small pericardial effusion. ASSESSMENT AND PLAN: 68-year-old schizophrenic man with multiple medical problems with large right upper lobe mass as described in imaging report with bilateral pleural effusions. Suspect malignancy as partial erosion of vertebral body is noted. Pleural effusions may be malignant. Since patient had indeterminate QuantiFERON , would rule out active pulmonary tuberculosis at this time. Cannot rule out underlying community acquired pneumonia especially given presence of leukocytosis. Admit to [facility] Airborne isolation Send sputum for AFB smear and culture x3 Send sputum for AFB PCR Order skin PPD ESR, CRP Abdominal CT with contrast to evaluate for any evidence of metastasis Transthoracic echo Pulmonary evaluation Pulmonary to consider bronchoscopy as well as thoracocentesis for diagnostic and therapeutic purposes Infectious disease evaluation Ceftriaxone 1 g every 24 hours and azithromycin 500 mg IV daily -iv vancomycin given history of mrsa Avoid fluoroquinolones since these are second line TB medications Supplemental oxygen as needed #CHFcontrolled Continue metoprolol succinate 100 mg p.o. twice daily Continue lisinopril daily Continue furosemide 20 mg p.o. daily #Atrial fibrillationrate controlled, on anticoagulation with and noac Continue Xarelto 20 mg p.o. daily Continue Cardizem and metoprolol succinate for rate control #Schizophrenia continue home dose Abilify and Cogentin DVT prophylaxisLovenox subcutaneously
[2019-03-07] MEDS ORDERED: cefTRIAXone SODIUM 1 GM VIAL ONE (21:05)
[2019-03-07] MEDS ORDERED: DEXTROSE 5%-WATER - 50 ML IVPB ONE (21:05)
[2019-03-07] MEDS ORDERED: TUBERCULIN PPD 5 TU/0.1ML SYRINGE (IN PATIENT USE ONLY) ID ONE (21:30)
[2019-03-07 21:31] LABS: ARTERIAL BLOOD GAS BASE EXCESS 4.1 meq/l (-2-2); ARTERIAL BLOOD GAS PCO2 40.5 mmHg (35-45); ARTERIAL BLOOD GAS PO2 62.5 mmHg (80-100); ARTERIAL BLOOD GAS pH 7.45 (7.35-7.45)
[2019-03-07 21:34] LABS: ALLENS TEST POSITIVE
[2019-03-07] MEDS: CEFTRIAXONE 1 GM in DEXTROSE 5%-WATER - 50 ML IVPB SCH (21:45)
[2019-03-07] MEDS: INSULIN SLIDING SCALE (NOVOLOG) 1 VIAL SQ SCH (21:47)
[2019-03-08] MEDS: INSULIN SLIDING SCALE (NOVOLOG) 1 VIAL SQ SCH ×4 (06:40→22:38)
[2019-03-08] MEDS: dilTIAZem HCL 30 MG TABLET (FP) PO SCH ×3 (07:08→22:38)
[2019-03-08] MEDS ORDERED: PT OWN MED DRAWER 7, Y5N ONE ×2 (07:17→21:44)
[2019-03-08] MEDS ORDERED: INSULIN (NOVOLOG) ASPART 100 UNITS/ML 10ML VIAL ONE ×3 (07:17→21:43)
--- NOTE | 2019-03-08 07:38 | PN ---
Progress Note, Physician Chief Complaint: No new complaint History of Present Illness: 68-year-old man with persistent atrial fibrillation with a chads VASC score of 5 on DO AC, CAD , diastolic dysfunction with class 0 NYHA heart failure, diabetes, hypertension, dyslipidemia, schizophrenia, CVA, anemia who was sent from [facility] because he was found to have an indeterminate QuantiFERON and abnormal chest x-ray, otherwise patient is afebrile hemodynamically stable transfer to rule out acute tuberculosis , - Current Medication List Current Medications: Active Medications Aripiprazole (Abilify) 5 mg PO DAILY [facility] Ascorbic Acid (Vitamin C -) 500 mg PO DAILY [facility] Benztropine Mesylate (Cogentin -) 0.5 mg PO DAILY [facility] Calcium Carbonate (Os-Davey 500mg -) 500 mg PO DAILY [facility] Cholecalciferol (Vitamin D3 -) 400 unit PO DAILY [facility] Diltiazem HCl (Cardizem -) 30 mg PO TID [facility] Last Admin: 03/08/19 07:08 Dose: 30 mg Ferrous Sulfate (Feosol -) 325 mg PO DAILY [facility] Furosemide (Lasix -) 20 mg PO DAILY [facility] Azithromycin 250 mg/ Dextrose 250 mls @ 250 mls/hr IVPB DAILY [facility] Ceftriaxone Sodium 1 gm/ (Dextrose) 50 mls @ 100 mls/hr IVPB DAILY [facility]; Protocol Last Admin: 03/07/19 21:45 Dose: 100 mls/hr Insulin Aspart (Novolog Vial Sliding Scale -) 1 vial SQ ACHS [facility]; Protocol Last Admin: 03/08/19 06:40 Dose: Not Given Lisinopril (Prinivil) 2.5 mg PO DAILY [facility] Metoprolol Succinate (Toprol Xl -) 100 mg PO BID [facility] Last Admin: 03/08/19 00:12 Dose: 100 mg Rivaroxaban (Xarelto) 20 mg PO DAILY@1800 [facility] - Objective Vital Signs: Vital Signs Temperature 98.2 F 03/08/19 03:00 Pulse Rate 98 H 03/08/19 03:00 Respiratory Rate 20 03/08/19 03:00 Blood Pressure 104/59 L 03/08/19 03:00 O2 Sat by Pulse Oximetry (%) 97 03/07/19 20:05 General: Elderly man, comfortable, not in distress HEENT; mucous membranes moist, no anemia, no jaundice, PERRLA, no nystagmus Neck: No JVD, supple, no bruit, thyroid palpably normal, normal carotid pulsations. Chest: Nontender, clear to auscultation bilaterally/bilateral wheezing/ bilateral basal rales. CVS: S1-S2 irregular no murmur/gallop/rub Abdomen: Nondistended, soft, bowel sounds present. 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 , no gross motor sensory deficit Labs: CBC, BMP 03/07/19 16:17 03/07/19 16:17 - ....Imaging Cat Scan: Report Reviewed (CT chest: Shows right upper lobe mass with right moderate pleural effusion, left mild to moderate pleural effusion, post obstructive atelectasis right upper lobe.) Problem List - Problems (1) Mass of upper lobe of right lung Assessment/Plan: Patient is transfer [facility] for evaluation of right upper lobe mass/infiltrate in the surgical interment QuantiFERON-TB test, at present, no respiratory distress, continue airborne isolation, rule out TB with induced sputum AFB, pulmonary/IR for evaluation of right upper lobe mass to rule out malignancy concerning region of T3 vertebrae and right third rib most likely malignant. May continue empiric antibiotic pulmonary increase. Problems reviewed: Yes Code(s): R91.8 - OTHER NONSPECIFIC ABNORMAL FINDING OF LUNG FIELD (2) Afib Assessment/Plan: Rate controlled on anticoagulation will hold Xarelto and switch to rule out Lovenox for possible biopsy/other therapeutic process on Sunday. 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 Problems reviewed: Yes Code(s): R27.0 - ATAXIA, UNSPECIFIED (6) Schizophrenia Assessment/Plan: Resume all home medications Problems reviewed: Yes Code(s): F20.9 - SCHIZOPHRENIA, UNSPECIFIED (7) CAD (coronary artery disease) Assessment/Plan: No acute issues no acute EKG changes continue current management. Problems reviewed: Yes Code(s): I25.10 - ATHSCL HEART DISEASE OF [place] CORONARY ARTERY W/O ANG PCTRS
[2019-03-08 07:55] LABS: BASO % 0.9 % (0-2.0); EOS % 2.4 % (0-4.5); HEMATOCRIT 29.5 % (35.4-49); HEMOGLOBIN 9.4 GM/dL (11.7-16.9); LYMPH % 6.6 % (8-40); MCH 24.8 pg (25.7-33.7); MCHC 31.9 g/dl (32.0-35.9); MEAN CELL VOLUME 77.9 fl (80-96); MEAN PLT VOLUME 7.2 fl (7.5-11.1); MONO % 6.5 % (3.8-10.2); NEUT % 83.6 % (42.8-82.8); PLATELET COUNT 267 K/MM3 (134-434); RBC 3.79 M/mm3 (4.00-5.60); RDW 27.8 % (11.9-15.9); WHITE BLOOD COUNT 10.3 K/mm3 (4.0-10.0)
[2019-03-08 08:25] LABS: ALBUMIN 2.2 g/dl (3.4-5.0); BILIRUBIN,TOTAL 0.4 mg/dL (0.2-1); BLOOD UREA NITROGEN 9.6 mg/dL (7-18); CALCIUM 8.3 mg/dL (8.5-10.1); CREATININE 0.5 mg/dL (0.55-1.3); MAGNESIUM 2.1 mg/dL (1.8-2.4); PHOSPHOROUS 3.5 mg/dL (2.5-4.9); POTASSIUM 3.8 mmol/L (3.5-5.1)
[2019-03-08 08:37] LABS: INR 1.4 (0.83-1.09); PROTHROMBIN TIME (PATIENT) 16.6 SEC (9.7-13.0)
[2019-03-08 08:40] LABS: ACTIVATED PTT 35.2 SECONDS (25.2-36.5)
--- NOTE | 2019-03-08 09:51 | CON.PULM ---
Consult Consult Specialty:: PULM/CCM Referred by:: Hospitalist Reason for Consultation:: Abnormal CT chest - History of Present Illness Chief Complaint: (+) intermediate Qant testing History of Present Illness: 68 M, schizophrenia, MDD, tremors, AFib on xarelto, DM, HLD, Anemia, CAD, and RLE osteomyelitis. Admitted via the ER due to indeterminate quantiferon and abnormal CXR. He reports some dry cough. Denies hemoptysis or night sweats. No unintentional weight loss. Patient reports no previous CT chest imaging. CT Chest: noncalcified 5 x 4.5 x 4.5 cm Right [place] mass / confluence of mediastinal adenopathy right hilum / bilateral pleural effusions: Right > Left / Left adrenal enlargement - History Source History Provided By: Patient Limitations to Obtaining History: Poor Historian - Past Medical History Cardio/Vascular: Yes: AFIB, HTN Pulmonary: No: Asthma, Bronchitis, Cancer, COPD, O2 Dependent, Pneumonia, Previously Intubated, Pulmonary Embolus, Pulmonary Fibrosis, Sleep Apnea Psych: Yes: Schizophrenia - Alcohol/Substance Use Hx Alcohol Use: No - Smoking History Smoking history: Unknown if ever smoked Have you smoked in the past 12 months: No Aproximately how many cigarettes per day: 3 - Social History Usual Living Arrangement: Assisted Living 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 Travel: No Home Medications - Allergies Allergies/Adverse Reactions: Allergies Allergy/AdvReac Type Severity Reaction Status Date / Time chlorpromazine Allergy Verified 03/07/19 13:12 [From Thorazine] torazine Allergy Uncoded 03/07/19 13:12 - Home Medications Home Medications: Ambulatory Orders Acetaminophen [Tylenol] 650 mg PO Q6H PRN 09/05/18 Aripiprazole [Abilify -] 5 mg PO DAILY 09/05/18 Furosemide [Lasix] 20 mg PO DAILY 5 Days #5 tablet 12/09/18 Benztropine Mesylate [Cogentin -] 0.5 mg PO DAILY 01/13/19 Insulin Sliding Scale [Novolog Vial Sliding Scale -] 0 unit SQ BID 01/13/19 Rivaroxaban [Xarelto -] 20 mg PO DAILY@1800 #30 tablet 01/16/19 Diltiazem [Cardizem -] 30 mg PO Q8H tablet 02/19/19 Lisinopril [Prinivil] 2.5 mg PO DAILY tablet 02/19/19 Metoprolol Succinate 100 mg PO BID #30 tab.er.24h 02/19/19 Ascorbate Calcium [Vitamin C] 500 mg PO DAILY 03/07/19 Calcium Carbonate/Vitamin D3 [Oystercal-D 500 mg-400 Unit Tb] 1 each PO DAILY Ferrous Sulfate 325 mg PO DAILY 03/07/19 Review of Systems - Review of Systems Constitutional: denies: Chills, Fever, Malaise, Night Sweats Eyes: reports: No Symptoms HENT: reports: No Symptoms Neck: reports: No Symptoms Cardiovascular: denies: Chest Pain, Edema, Palpitations, Shortness of Breath Respiratory: reports: Cough. denies: Exercise Intolerance, Hemoptysis, Orthopnea, PND, Snoring, SOB, SOB on Exertion, Wheezing Gastrointestinal: reports: No Symptoms Genitourinary: reports: No Symptoms Breasts: reports: No Symptoms Reported Musculoskeletal: reports: No Symptoms Integumentary: reports: No Symptoms Neurological: reports: No Symptoms Endocrine: reports: No Symptoms Hematology/Lymphatic: reports: No Symptoms Psychiatric: reports: No Symptoms Physical Exam Vital Sings: Vital Signs Temperature 98.8 F 03/08/19 07:55 Pulse Rate 77 03/08/19 07:55 Respiratory Rate 20 03/08/19 07:55 Blood Pressure 122/79 03/08/19 07:55 O2 Sat by Pulse Oximetry (%) 97 03/07/19 20:05 Constitutional: Yes: No Distress Eyes: Yes: Conjunctiva Clear, EOM Intact HENT: Yes: Atraumatic, Normocephalic Neck: Yes: Supple, Trachea Midline Cardiovascular: Yes: Regular Rate and Rhythm Respiratory: Yes: Cough, Diminished. No: Accessory Muscle Use, Rales, Rhonchi, SOB, SOB on Exertion, Stridor, Tachypnea, Wheezes ...Inspection: Yes: WNL ...Clubbing: No Gastrointestinal: Yes: Normal Bowel Sounds, Soft Renal/: Yes: WNL Musculoskeletal: Yes: WNL Extremities: Yes: WNL Edema: No Peripheral Pulses WNL: Yes Integumentary: Yes: WNL Neurological: Yes: WNL, Alert, Oriented ...Motor Strength: WNL Psychiatric: Yes: WNL, Alert, Oriented Labs: CBC, BMP 03/08/19 06:36 03/08/19 06:36 ABG Results ABG pH 7.45 (7.35-7.45) 03/07/19 21:20 ABG pCO2 at Pt Temp 40.5 mmHg (35-45) 03/07/19 21:20 ABG pO2 at Pt Temp 62.5 mmHg (80-100) L 03/07/19 21:20 ABG HCO3 27.9 mmol/L (22-27) H 03/07/19 21:20 ABG O2 Sat (Measured) 90.0 % (95-98) L 03/07/19 21:20 ABG O2 Content 11.6 % vol 03/07/19 21:20 ABG Base Excess 4.1 meq/l (-2-2) H 03/07/19 21:20 Imaging - Results Chest X-ray: Report Reviewed, Image Reviewed Cat Scan: Report Reviewed, Image Reviewed Problem List - Problems (1) Pleural effusion Code(s): J90 - PLEURAL EFFUSION, NOT ELSEWHERE CLASSIFIED (2) Mediastinal lymphadenopathy Code(s): R59.0 - LOCALIZED ENLARGED LYMPH NODES (3) Mass of upper lobe of right lung Code(s): R91.8 - OTHER NONSPECIFIC ABNORMAL FINDING OF LUNG FIELD (4) 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 Code(s): E11.39 - TYPE 2 DIABETES W OTH DIABETIC OPHTHALMIC COMPLICATION; H43.13 - VITREOUS HEMORRHAGE, BILATERAL (5) Afib Code(s): I48.91 - UNSPECIFIED ATRIAL FIBRILLATION Qualifiers: Atrial fibrillation type: persistent (6) Anemia Code(s): D64.9 - ANEMIA, UNSPECIFIED Qualifiers: Anemia type: unspecified type Qualified Code(s): D64.9 - Anemia, unspecified (7) Diabetes Code(s): E11.9 - TYPE 2 DIABETES MELLITUS WITHOUT COMPLICATIONS (8) Diabetic peripheral vascular disease Code(s): E11.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 (9) HTN (hypertension) Code(s): I10 - ESSENTIAL (PRIMARY) HYPERTENSION Qualifiers: Hypertension type: essential hypertension Qualified Code(s): I10 - Essential (primary) hypertension (10) Schizophrenia Code(s): F20.9 - SCHIZOPHRENIA, UNSPECIFIED Assessment/Plan Induced Sputum Isolation ID consult called: low clinical suspicion of bacterial PNA Will DW IR on Sunday most effective way to get tissue diagnosis: IR intervention versus Bronchoscopy O2 as needed Noted DOAC changed to Lovenox in anticipation for biopsy Will follow Thank you. Dr Luna
[2019-03-08] MEDS ORDERED: cefTRIAXone SODIUM 1 GM VIAL ONE (09:59)
[2019-03-08] MEDS ORDERED: DEXTROSE 5%-WATER - 50 ML IVPB ONE (10:00)
[2019-03-08] MEDS ORDERED: PATIENT'S OWN MEDICATION (NON-FORMULARY) (Calcium Carbonate/Vitamin D3 [Oystercal-D 500 Mg PO SCH (10:00)
[2019-03-08] MEDS: CALCIUM (OYSTER SHELL) 500 MG TABLET (FP) PO SCH (10:06)
[2019-03-08] MEDS: LISINOPRIL 5 MG TABLET (FP) PO SCH (10:07)
[2019-03-08] MEDS: FERROUS SO4 325 MG TABLET (FP) PO SCH (10:08)
[2019-03-08] MEDS: ASCORBIC ACID 500 MG TABLET (FP) PO SCH (10:08)
[2019-03-08] MEDS: CHOLECALCIFEROL (VIT D3) 400 UNIT (10 MCG) TABLET PO SCH (10:08)
[2019-03-08] MEDS: ARIPiprazole 5 MG TABLET (FP) PO SCH (10:08)
[2019-03-08] MEDS: BENZTROPINE MESYLATE 0.5 MG TABLET (FP) PO SCH (10:08)
[2019-03-08] MEDS: FUROSEMIDE 20 MG TABLET (FP) PO SCH (10:08)
[2019-03-08] MEDS: CEFTRIAXONE 1 GM in DEXTROSE 5%-WATER - 50 ML IVPB SCH (10:09)
--- NOTE | 2019-03-08 11:28 | EKG ---
Test Reason : Blood Pressure : / mmHG Vent. Rate : 114 BPM Atrial Rate : 094 BPM P-R Int : 000 ms QRS Dur : 104 ms QT Int : 346 ms P-R-T Axes : 000 078 259 degrees QTc Int : 476 ms ATRIAL FIBRILLATION WITH RAPID VENTRICULAR RESPONSE WITH PREMATURE VENTRICULAR OR ABERRANTLY CONDUCTED COMPLEXES LOW VOLTAGE QRS NONSPECIFIC T WAVE ABNORMALITY ABNORMAL ECG WHEN COMPARED WITH ECG OF 13-JAN-2019 18:55, T WAVE INVERSION NOW EVIDENT IN LATERAL LEADS Confirmed by DEZ ARRIOLA MD ([id number]) on 03/08/2019 11:28:20 AM Referred By: Rozina CRUZ Confirmed By:DEZ ARRIOLA MD
[2019-03-08] MEDS: AZITHROMYCIN IVPB 250 MG in DEXTROSE 5%-WATER - 250 ML IVPB SCH (12:07)
[2019-03-08] MEDS ORDERED: ENOXAPARIN NA (PORCINE) 80 MG/0.8 ML DISP.SYRIN SQ SCH (12:15)
--- NOTE | 2019-03-08 13:51 | CON.ID ---
Consult - History of Present Illness History of Present Illness: Asked to evaluate this 68 y.o. male with PMH of DM, AFIB, CAD, HLD, anemia, Rt foot OM, and schizophrenia sent from [facility] due to abnormal CXR and indeterminate Quantiferon result. Pt has some intermittent cough but denies SOB , DAVID, fever/chills, nightsweats, hemoptysis, or weight loss. CT Chest reveals a Rt apical mass with erosion of T3 and Rt 3rd rib, b/l pleural effusions and mediastinal/hilar KAYLYN. He is currently alert, without respiratory distress, afebrile. He has no other specific complaints. 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 Travel: No Home Medications - Allergies Allergies/Adverse Reactions: Allergies Allergy/AdvReac Type Severity Reaction Status Date / Time chlorpromazine Allergy Verified 03/07/19 13:12 [From Thorazine] torazine Allergy Uncoded 03/07/19 13:12 - Home Medications Home Medications: Ambulatory Orders Acetaminophen [Tylenol] 650 mg PO Q6H PRN 09/05/18 Aripiprazole [Abilify -] 5 mg PO DAILY 09/05/18 Furosemide [Lasix] 20 mg PO DAILY 5 Days #5 tablet 12/09/18 Benztropine Mesylate [Cogentin -] 0.5 mg PO DAILY 01/13/19 Insulin Sliding Scale [Novolog Vial Sliding Scale -] 0 unit SQ BID 01/13/19 Rivaroxaban [Xarelto -] 20 mg PO DAILY@1800 #30 tablet 01/16/19 Diltiazem [Cardizem -] 30 mg PO Q8H tablet 02/19/19 Lisinopril [Prinivil] 2.5 mg PO DAILY tablet 02/19/19 Metoprolol Succinate 100 mg PO BID #30 tab.er.24h 02/19/19 Ascorbate Calcium [Vitamin C] 500 mg PO DAILY 03/07/19 Calcium Carbonate/Vitamin D3 [Oystercal-D 500 mg-400 Unit Tb] 1 each PO DAILY Ferrous Sulfate 325 mg PO DAILY 03/07/19 Review of Systems - Review of Systems Constitutional: reports: No Symptoms. denies: Chills, Diaphoresis, Fever, Lethargy, Loss of Appetite, Malaise, Night Sweats, Unintentional Wgt. Loss, Weakness, Other Eyes: reports: No Symptoms. denies: Blind Spots, Blurred Vision, Double Vision , Eye Pain, Floaters, Photophobia, Recent Change in Vision, Other HENT: reports: No Symptoms. denies: Difficult Swallowing, Ear Discharge, Ear Pain, Epistaxis, Gingival Bleeding, Hearing Loss, Mouth Swelling, Nasal Congestion, Ocular Prosthesis, Throat Pain, Toothache, Ringing in Ears, Other Neck: reports: No Symptoms. denies: Decreased ROM, Lumps, Pain on Movement, Stiffness, Swollen Glands, Tenderness, Other Cardiovascular: reports: No Symptoms. denies: Chest Pain, Edema, Palpitations, Shortness of Breath, Other Respiratory: reports: Cough. denies: No Symptoms, Exercise Intolerance, Hemoptysis, Orthopnea, PND, Snoring, SOB, SOB on Exertion, Wheezing, Other Gastrointestinal: reports: No Symptoms. denies: Abdominal Pain, Bloating, Constipation, Diarrhea, Dysphagia, Indigestion, Melena, Nausea, Rectal Bleeding , Vomiting, Vomiting Blood, Other Genitourinary: reports: No Symptoms. denies: Burning, Discharge, Dysuria, Flank Pain, Frequency, Hematuria, Incontinence, Lesions, Menses, Pain, Testicular Mass, Testicular Pain, Testicular Swelling, Urgency, Vaginal Bleeding , Other Musculoskeletal: reports: No Symptoms. denies: Back Pain, Crepitus, Decreased ROM, Extremity Pain, Joint Pain, Joint Swelling, Muscle Pain, Muscle Cramps, Muscle Weakness, Other Integumentary: reports: No Symptoms. denies: Blister, Bruising, Change in Color , Eczema, Erythema, Incision, Lesions, Lump, Pallor, Pruritis, Rash, Wound, Other Neurological: reports: No Symptoms. denies: Change in LOC, Change in Speech, Confusion, Dizziness, Headache, Incoordination, Numbness, Parasthesia, Pre- Existing Deficit, Seizure, Syncope, Tremors, Unsteady Gait, Weakness, Other Endocrine: reports: No Symptoms. denies: Excessive Sweating, Flushing, Increased Hunger, Increased Thirst, Intolerance to Cold, Intolerance to Heat, Unexplained Weight Gain, Unexplained Weight Loss, Other Hematology/Lymphatic: reports: No Symptoms. denies: Easily Bruised, Excessive Bleeding, Swollen Glands, Other Physical Exam Vital Signs: Vital Signs Temperature 98.9 F 03/08/19 10:00 Pulse Rate 106 H 03/08/19 10:00 Respiratory Rate 18 03/08/19 10:00 Blood Pressure 90/54 L 03/08/19 10:00 O2 Sat by Pulse Oximetry (%) 97 03/08/19 09:00 Constitutional: Yes: No Distress, Calm Eyes: Yes: Conjunctiva Clear, EOM Intact HENT: Yes: Atraumatic Neck: Yes: Supple, Trachea Midline Cardiovascular: Yes: Pulse Irregular Respiratory: Yes: Diminished Gastrointestinal: Yes: Normal Bowel Sounds, Soft Renal/: Yes: WNL Musculoskeletal: Yes: WNL Extremities: Yes: WNL Edema: No Peripheral Pulses WNL: Yes Integumentary: Yes: WNL Neurological: Yes: Alert Psychiatric: Yes: Alert Labs: CBC, BMP 03/08/19 06:36 03/08/19 06:36 Laboratory Tests 03/07/19 03/07/19 03/07/19 16:17 16:17 21:20 WBC 11.3 H RBC 3.85 L Hgb 9.3 L Hct 30.0 L MCV 78.0 L MCH 24.2 L MCHC 31.0 L RDW 28.6 H Plt Count 340 MPV 7.5 Absolute Neuts (auto) 9.1 H Neutrophils % 81.2 Lymphocytes % 8.7 Monocytes % 6.8 Eosinophils % 2.4 Basophils % 0.9 Nucleated RBC % 0 Platelet Estimate Adequate Platelet Comment Giant platelets Polychromasia 1+ Poikilocytosis 1+ Anisocytosis 2+ Microcytosis 1+ Macrocytosis 1+ Ovalocytes 1+ PT with INR INR PTT (Actin FS) Anticoagulation Therapy No Result Required. Puncture Site Right radial ABG pH 7.45 ABG pCO2 at Pt Temp 40.5 ABG pO2 at Pt Temp 62.5 L ABG HCO3 27.9 H ABG O2 Sat (Measured) 90.0 L ABG O2 Content 11.6 ABG Base Excess 4.1 H Terrence Test Positive O2 Delivery Device Room air Oxygen Flow Rate 21% Vent Mode No Result Required. Vent Rate No Result Required. Mechanical Rate No Result Required. Pressure Support Vent No Result Required. Sodium 137 Potassium 5.4 H Chloride 102 Carbon Dioxide 33 H Anion Gap 2 L BUN 12.5 Creatinine 0.5 L Est GFR (CKD-EPI)AfAm 130.88 Est GFR (CKD-EPI)NonAf 112.92 POC Glucometer Random Glucose 96 Calcium 8.4 L Phosphorus Magnesium Total Bilirubin 0.4 AST 29 ALT 24 Alkaline Phosphatase 129 H Total Protein 7.4 Albumin 2.2 L 03/07/19 03/08/19 03/08/19 21:46 05:58 06:36 WBC 10.3 H RBC 3.79 L Hgb 9.4 L Hct 29.5 L MCV 77.9 L MCH 24.8 L MCHC 31.9 L RDW 27.8 H Plt Count 267 D MPV 7.2 L Absolute Neuts (auto) 8.6 H Neutrophils % 83.6 H Lymphocytes % 6.6 L D Monocytes % 6.5 Eosinophils % 2.4 Basophils % 0.9 Nucleated RBC % 0 Platelet Estimate Platelet Comment Polychromasia Poikilocytosis Anisocytosis Microcytosis Macrocytosis Ovalocytes PT with INR INR PTT (Actin FS) Anticoagulation Therapy Puncture Site ABG pH ABG pCO2 at Pt Temp ABG pO2 at Pt Temp ABG HCO3 ABG O2 Sat (Measured) ABG O2 Content ABG Base Excess Terrence Test O2 Delivery Device Oxygen Flow Rate Vent Mode Vent Rate Mechanical Rate Pressure Support Vent Sodium Potassium Chloride Carbon Dioxide Anion Gap BUN Creatinine Est GFR (CKD-EPI)AfAm Est GFR (CKD-EPI)NonAf POC Glucometer 167 109 Random Glucose Calcium Phosphorus Magnesium Total Bilirubin AST ALT Alkaline Phosphatase Total Protein Albumin 03/08/19 03/08/19 03/08/19 06:36 06:36 12:05 WBC RBC Hgb Hct MCV MCH MCHC RDW Plt Count MPV Absolute Neuts (auto) Neutrophils % Lymphocytes % Monocytes % Eosinophils % Basophils % Nucleated RBC % Platelet Estimate Platelet Comment Polychromasia Poikilocytosis Anisocytosis Microcytosis Macrocytosis Ovalocytes PT with INR 16.60 H INR 1.40 H PTT (Actin FS) 35.2 Anticoagulation Therapy Puncture Site ABG pH ABG pCO2 at Pt Temp ABG pO2 at Pt Temp ABG HCO3 ABG O2 Sat (Measured) ABG O2 Content ABG Base Excess Terrence Test O2 Delivery Device Oxygen Flow Rate Vent Mode Vent Rate Mechanical Rate Pressure Support Vent Sodium 136 Potassium 3.8 Chloride 102 Carbon Dioxide 30 Anion Gap 5 L BUN 9.6 Creatinine 0.5 L Est GFR (CKD-EPI)AfAm 130.88 Est GFR (CKD-EPI)NonAf 112.92 POC Glucometer 142 Random Glucose 84 Calcium 8.3 L Phosphorus 3.5 Magnesium 2.1 Total Bilirubin 0.4 AST 15 ALT 21 Alkaline Phosphatase 122 H Total Protein 7.0 Albumin 2.2 L Imaging - Results Cat Scan: Report Reviewed Problem List - Problems (1) CAD (coronary artery disease) Code(s): I25.10 - ATHSCL HEART DISEASE OF [place] CORONARY ARTERY W/O ANG PCTRS (2) Mass of upper lobe of right lung Code(s): R91.8 - OTHER NONSPECIFIC ABNORMAL FINDING OF LUNG FIELD (3) Mediastinal lymphadenopathy Code(s): R59.0 - LOCALIZED ENLARGED LYMPH NODES (4) Pleural effusion Code(s): J90 - PLEURAL EFFUSION, NOT ELSEWHERE CLASSIFIED (5) 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 male with PMH of DM, AFIB, CAD, HLD, anemia, Rt foot OM, and schizophrenia sent from [facility] due to abnormal CXR and indeterminate Quantiferon result RUL/apical lung lesion r/o TB/malignancy b/l pleural effusions mediastinal/hilar KAYLYN DM CAD AFIB Anemia Schizophrenia -- for now will continue with antibiotics -- sputum for culture/AFB x 3 -- on airborne isolation -- biopsy of lesion monitor vitals Will follow Thank you
[2019-03-08] MEDS: ENOXAPARIN NA (PORCINE) 80 MG/0.8 ML DISP.SYRIN SQ SCH (17:58)
[2019-03-08] MEDS ORDERED: RIVAROXABAN 20 MG TABLET PO SCH (18:00)
[2019-03-09] MEDS ORDERED: PT OWN MED DRAWER 7, Y5N ONE ×2 (06:13→21:03)
[2019-03-09] MEDS: ENOXAPARIN NA (PORCINE) 80 MG/0.8 ML DISP.SYRIN SQ SCH ×2 (06:24→17:04)
[2019-03-09] MEDS: INSULIN SLIDING SCALE (NOVOLOG) 1 VIAL SQ SCH ×4 (06:24→21:54)
[2019-03-09] MEDS: dilTIAZem HCL 30 MG TABLET (FP) PO SCH ×3 (06:24→21:58)
--- NOTE | 2019-03-09 08:21 | PN ---
Progress Note, Physician Chief Complaint: No new complaint History of Present Illness: 68-year-old man with persistent atrial fibrillation with a chads VASC score of 5 on DO AC, CAD , diastolic dysfunction with class 0 NYHA heart failure, diabetes, hypertension, dyslipidemia, schizophrenia, CVA, anemia who was sent from [facility] because he was found to have an indeterminate QuantiFERON and abnormal chest x-ray, otherwise patient is afebrile hemodynamically stable transfer to rule out acute tuberculosis , CT chest shows 5 x 4.5 x 4.5 noncalcified mass right upper lobe with pleural effusion and lymphadenopathy - Current Medication List Current Medications: Active Medications Aripiprazole (Abilify) 5 mg PO DAILY PENDING SALE TO [facility] Last Admin: 03/08/19 10:08 Dose: 5 mg Ascorbic Acid (Vitamin C -) 500 mg PO DAILY PENDING SALE TO [facility] Last Admin: 03/08/19 10:08 Dose: 500 mg Benztropine Mesylate (Cogentin -) 0.5 mg PO DAILY PENDING SALE TO [facility] Last Admin: 03/08/19 10:08 Dose: 0.5 mg Calcium Carbonate (Os-Davey 500mg -) 500 mg PO DAILY PENDING SALE TO [facility] Last Admin: 03/08/19 10:06 Dose: 500 mg Cholecalciferol (Vitamin D3 -) 400 unit PO DAILY PENDING SALE TO [facility] Last Admin: 03/08/19 10:08 Dose: 400 unit Diltiazem HCl (Cardizem -) 30 mg PO TID PENDING SALE TO [facility] Last Admin: 03/09/19 06:24 Dose: 30 mg Enoxaparin Sodium (Lovenox -) 80 mg SQ Q12H JONATHON Last Admin: 03/09/19 06:24 Dose: 80 mg Ferrous Sulfate (Feosol -) 325 mg PO DAILY PENDING SALE TO [facility] Last Admin: 03/08/19 10:08 Dose: 325 mg Furosemide (Lasix -) 20 mg PO DAILY PENDING SALE TO [facility] Last Admin: 03/08/19 10:08 Dose: 20 mg Azithromycin 250 mg/ Dextrose 250 mls @ 250 mls/hr IVPB DAILY PENDING SALE TO [facility] Last Admin: 03/08/19 12:07 Dose: 250 mls/hr Ceftriaxone Sodium 1 gm/ (Dextrose) 50 mls @ 100 mls/hr IVPB DAILY PENDING SALE TO [facility]; Protocol Last Admin: 03/08/19 10:09 Dose: 100 mls/hr Insulin Aspart (Novolog Vial Sliding Scale -) 1 vial SQ ACHS PENDING SALE TO [facility]; Protocol Last Admin: 03/09/19 06:24 Dose: Not Given Lisinopril (Prinivil) 2.5 mg PO DAILY PENDING SALE TO [facility] Last Admin: 03/08/19 10:07 Dose: Not Given Metoprolol Succinate (Toprol Xl -) 100 mg PO BID PENDING SALE TO [facility] Last Admin: 03/08/19 22:38 Dose: 100 mg - Objective Vital Signs: Vital Signs Temperature 97.8 F 03/09/19 07:41 Pulse Rate 89 03/09/19 07:41 Respiratory Rate 20 03/09/19 07:41 Blood Pressure 104/64 03/09/19 07:41 O2 Sat by Pulse Oximetry (%) 97 03/08/19 09:00 General: Elderly man, comfortable, not in distress HEENT; mucous membranes moist, no anemia, no jaundice, PERRLA, no nystagmus Neck: No JVD, supple, no bruit, thyroid palpably normal, normal carotid pulsations. Chest: Nontender, clear to auscultation bilaterally CVS: S1-S2 irregular no murmur/gallop/rub Abdomen: Nondistended, soft, bowel sounds present. 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: AO X3 , no gross motor sensory deficit Labs: CBC, BMP 03/08/19 06:36 03/08/19 06:36 INR, PTT INR 1.40 (0.83-1.09) H 03/08/19 06:36 Problem List - Problems (1) Mass of upper lobe of right lung Assessment/Plan: [facility] is [facility] of right upper lobe mass/infiltrate in the surgical interment QuantiFERON-TB test, at present, no respiratory distress, continue airborne isolation, rule out TB with induced sputum AFB, pulmonary/IR for evaluation of right upper lobe mass to rule out malignancy concerning region of T3 vertebrae and right third rib most likely malignant. May continue empiric antibiotic pulmonary increase. Code(s): R91.8 - OTHER NONSPECIFIC ABNORMAL FINDING OF LUNG FIELD (2) Afib Assessment/Plan: Rate controlled on anticoagulation will hold Xarelto and switch to rule out Lovenox for possible biopsy/other therapeutic process on Sunday. 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 Code(s): R27.0 - ATAXIA, UNSPECIFIED (6) Schizophrenia Assessment/Plan: Resume all home medications Code(s): F20.9 - SCHIZOPHRENIA, UNSPECIFIED (7) CAD (coronary artery disease) Assessment/Plan: No acute issues no acute EKG changes continue current management. Code(s): I25.10 - ATHSCL HEART DISEASE OF [place] CORONARY ARTERY W/O ANG PCTRS
[2019-03-09] MEDS ORDERED: DEXTROSE 5%-WATER - 50 ML IVPB ONE (08:46)
[2019-03-09] MEDS ORDERED: cefTRIAXone SODIUM 1 GM VIAL ONE (08:46)
--- NOTE | 2019-03-09 09:39 | PN ---
Progress Note (short form) - Note Progress Note: Awake and alert in NAD on RA. Dry cough. Still not able to expectorate. Intake & Output 03/06/19 03/07/19 03/08/19 03/09/19 23:59 23:59 23:59 23:59 Intake Total 600 650 100 Output Total 975 500 Balance 600 -325 -400 Weight 172 lb 1.6 oz 167 lb 7 oz Last Vital Signs Temp Pulse Resp BP Pulse Ox 97.8 F 89 20 104/64 97 03/09/19 07:41 03/09/19 07:41 03/09/19 07:41 03/09/19 07:41 03/08/19 09:00 Active Medications Aripiprazole (Abilify) 5 mg PO DAILY [facility] Last Admin: 03/08/19 10:08 Dose: 5 mg Ascorbic Acid (Vitamin C -) 500 mg PO DAILY [facility] Last Admin: 03/08/19 10:08 Dose: 500 mg Benztropine Mesylate (Cogentin -) 0.5 mg PO DAILY [facility] Last Admin: 03/08/19 10:08 Dose: 0.5 mg Calcium Carbonate (Os-Davey 500mg -) 500 mg PO DAILY [facility] Last Admin: 03/08/19 10:06 Dose: 500 mg Cholecalciferol (Vitamin D3 -) 400 unit PO DAILY [facility] Last Admin: 03/08/19 10:08 Dose: 400 unit Diltiazem HCl (Cardizem -) 30 mg PO TID [facility] Last Admin: 03/09/19 06:24 Dose: 30 mg Enoxaparin Sodium (Lovenox -) 80 mg SQ Q12H [facility] Last Admin: 03/09/19 06:24 Dose: 80 mg Ferrous Sulfate (Feosol -) 325 mg PO DAILY [facility] Last Admin: 03/08/19 10:08 Dose: 325 mg Furosemide (Lasix -) 20 mg PO DAILY [facility] Last Admin: 03/08/19 10:08 Dose: 20 mg Azithromycin 250 mg/ Dextrose 250 mls @ 250 mls/hr IVPB DAILY [facility] Last Admin: 03/08/19 12:07 Dose: 250 mls/hr Ceftriaxone Sodium 1 gm/ (Dextrose) 50 mls @ 100 mls/hr IVPB DAILY [facility]; Protocol Last Admin: 03/08/19 10:09 Dose: 100 mls/hr Insulin Aspart (Novolog Vial Sliding Scale -) 1 vial SQ ACHS [facility]; Protocol Last Admin: 03/09/19 06:24 Dose: Not Given Lisinopril (Prinivil) 2.5 mg PO DAILY [facility] Last Admin: 03/08/19 10:07 Dose: Not Given Metoprolol Succinate (Toprol Xl -) 100 mg PO BID [facility] Last Admin: 03/08/19 22:38 Dose: 100 mg Constitutional: Yes: No Distress Eyes: Yes: Conjunctiva Clear, EOM Intact HENT: Yes: Atraumatic, Normocephalic Neck: Yes: Supple, Trachea Midline Cardiovascular: Yes: Regular Rate and Rhythm Respiratory: Yes: Cough, Diminished. No: Accessory Muscle Use, Rales, Rhonchi, SOB, SOB on Exertion, Stridor, Tachypnea, Wheezes ...Inspection: Yes: WNL ...Clubbing: No Gastrointestinal: Yes: Normal Bowel Sounds, Soft Renal/: Yes: WNL Musculoskeletal: Yes: WNL Extremities: Yes: WNL Edema: No Peripheral Pulses WNL: Yes Integumentary: Yes: WNL Neurological: Yes: WNL, Alert, Oriented ...Motor Strength: WNL Psychiatric: Yes: WNL, Alert, Oriented Labs: Laboratory Results - last 24 hr 03/08/19 03/08/19 03/08/19 06:36 06:36 12:05 POC Glucometer 142 Hep A IgM Ab Confirm Negative Hep Bs Antigen Negative Hep B Core IgM Ab Negative Hepatitis C Ab (EIA) >11.0 H HIV 1&2 Ag/Ab, 4th Gen Non reactive 03/08/19 03/08/19 03/09/19 17:52 22:29 06:22 POC Glucometer 97 140 108 Hep A IgM Ab Confirm Hep Bs Antigen Hep B Core IgM Ab Hepatitis C Ab (EIA) HIV 1&2 Ag/Ab, 4th Gen Problem List - Problems (1) Pleural effusion Code(s): J90 - PLEURAL EFFUSION, NOT ELSEWHERE CLASSIFIED (2) Mediastinal lymphadenopathy Code(s): R59.0 - LOCALIZED ENLARGED LYMPH NODES (3) Mass of upper lobe of right lung Code(s): R91.8 - OTHER NONSPECIFIC ABNORMAL FINDING OF LUNG FIELD (4) 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 Code(s): E11.39 - TYPE 2 DIABETES W OTH DIABETIC OPHTHALMIC COMPLICATION; H43.13 - VITREOUS HEMORRHAGE, BILATERAL (5) Afib Code(s): I48.91 - UNSPECIFIED ATRIAL FIBRILLATION Qualifiers: Atrial fibrillation type: persistent (6) Anemia Code(s): D64.9 - ANEMIA, UNSPECIFIED Qualifiers: Anemia type: unspecified type Qualified Code(s): D64.9 - Anemia, unspecified (7) Diabetes Code(s): E11.9 - TYPE 2 DIABETES MELLITUS WITHOUT COMPLICATIONS (8) Diabetic peripheral vascular disease Code(s): E11.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 (9) HTN (hypertension) Code(s): I10 - ESSENTIAL (PRIMARY) HYPERTENSION Qualifiers: Hypertension type: essential hypertension Qualified Code(s): I10 - Essential (primary) hypertension (10) Schizophrenia Code(s): F20.9 - SCHIZOPHRENIA, UNSPECIFIED Assessment/Plan Induced Sputum ordered Isolation Noted ID consult Will D/W IR tomorrow most effective way to get tissue diagnosis: IR intervention versus Bronchoscopy O2 as needed DOAC changed to Lovenox in anticipation for biopsy Dr Luna Problem List - Problems (1) Pleural effusion Code(s): J90 - PLEURAL EFFUSION, NOT ELSEWHERE CLASSIFIED (2) Mediastinal lymphadenopathy Code(s): R59.0 - LOCALIZED ENLARGED LYMPH NODES (3) Mass of upper lobe of right lung Code(s): R91.8 - OTHER NONSPECIFIC ABNORMAL FINDING OF LUNG FIELD (4) 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 Code(s): E11.39 - TYPE 2 DIABETES W OTH DIABETIC OPHTHALMIC COMPLICATION; H43.13 - VITREOUS HEMORRHAGE, BILATERAL (5) Afib Code(s): I48.91 - UNSPECIFIED ATRIAL FIBRILLATION Qualifiers: Atrial fibrillation type: persistent (6) Anemia Code(s): D64.9 - ANEMIA, UNSPECIFIED Qualifiers: Anemia type: unspecified type Qualified Code(s): D64.9 - Anemia, unspecified (7) Diabetes Code(s): E11.9 - TYPE 2 DIABETES MELLITUS WITHOUT COMPLICATIONS (8) Diabetic peripheral vascular disease Code(s): E11.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 (9) HTN (hypertension) Code(s): I10 - ESSENTIAL (PRIMARY) HYPERTENSION Qualifiers: Hypertension type: essential hypertension Qualified Code(s): I10 - Essential (primary) hypertension (10) Schizophrenia Code(s): F20.9 - SCHIZOPHRENIA, UNSPECIFIED
[2019-03-09] MEDS: LISINOPRIL 5 MG TABLET (FP) PO SCH (09:45)
[2019-03-09] MEDS: ARIPiprazole 5 MG TABLET (FP) PO SCH (09:45)
[2019-03-09] MEDS: FERROUS SO4 325 MG TABLET (FP) PO SCH (09:45)
[2019-03-09] MEDS: CHOLECALCIFEROL (VIT D3) 400 UNIT (10 MCG) TABLET PO SCH (09:45)
[2019-03-09] MEDS: FUROSEMIDE 20 MG TABLET (FP) PO SCH (09:45)
[2019-03-09] MEDS: BENZTROPINE MESYLATE 0.5 MG TABLET (FP) PO SCH (09:46)
[2019-03-09] MEDS: ASCORBIC ACID 500 MG TABLET (FP) PO SCH (09:46)
[2019-03-09] MEDS: CALCIUM (OYSTER SHELL) 500 MG TABLET (FP) PO SCH (09:46)
[2019-03-09] MEDS: CEFTRIAXONE 1 GM in DEXTROSE 5%-WATER - 50 ML IVPB SCH (09:47)
[2019-03-09] MEDS: AZITHROMYCIN IVPB 250 MG in DEXTROSE 5%-WATER - 250 ML IVPB SCH (10:11)
[2019-03-09 10:26] LABS: BASO % 1.1 % (0-2.0); EOS % 1.8 % (0-4.5); HEMATOCRIT 29.8 % (35.4-49); HEMOGLOBIN 9.5 GM/dL (11.7-16.9); LYMPH % 9.3 % (8-40); MCH 24.6 pg (25.7-33.7); MCHC 31.9 g/dl (32.0-35.9); MEAN CELL VOLUME 77.2 fl (80-96); MEAN PLT VOLUME 7.6 fl (7.5-11.1); NEUT % 82.8 % (42.8-82.8); PLATELET COUNT 292 K/MM3 (134-434); RBC 3.85 M/mm3 (4.00-5.60); RDW 27.9 % (11.9-15.9); WHITE BLOOD COUNT 10.9 K/mm3 (4.0-10.0)
[2019-03-09 10:41] LABS: CALCIUM 8.6 mg/dL (8.5-10.1); CREATININE 0.5 mg/dL (0.55-1.3); POTASSIUM 4.1 mmol/L (3.5-5.1)
--- NOTE | 2019-03-09 20:05 | PN ---
Progress Note, Physician History of Present Illness: Pt is alert, afebrile. States he feels well, denies SOB. So far unable to provide sputum even with induction. - Current Medication List Current Medications: Active Medications Aripiprazole (Abilify) 5 mg PO DAILY [facility] Last Admin: 03/09/19 09:45 Dose: 5 mg Ascorbic Acid (Vitamin C -) 500 mg PO DAILY [facility] Last Admin: 03/09/19 09:46 Dose: 500 mg Benztropine Mesylate (Cogentin -) 0.5 mg PO DAILY [facility] Last Admin: 03/09/19 09:46 Dose: 0.5 mg Calcium Carbonate (Os-Davey 500mg -) 500 mg PO DAILY [facility] Last Admin: 03/09/19 09:46 Dose: 500 mg Cholecalciferol (Vitamin D3 -) 400 unit PO DAILY [facility] Last Admin: 03/09/19 09:45 Dose: 400 unit Diltiazem HCl (Cardizem -) 30 mg PO TID [facility] Last Admin: 03/09/19 14:06 Dose: 30 mg Enoxaparin Sodium (Lovenox -) 80 mg SQ Q12H [facility] Last Admin: 03/09/19 17:04 Dose: 80 mg Ferrous Sulfate (Feosol -) 325 mg PO DAILY [facility] Last Admin: 03/09/19 09:45 Dose: 325 mg Furosemide (Lasix -) 20 mg PO DAILY [facility] Last Admin: 03/09/19 09:45 Dose: 20 mg Azithromycin 250 mg/ Dextrose 250 mls @ 250 mls/hr IVPB DAILY [facility] Last Admin: 03/09/19 10:11 Dose: 250 mls/hr Ceftriaxone Sodium 1 gm/ (Dextrose) 50 mls @ 100 mls/hr IVPB DAILY [facility]; Protocol Last Admin: 03/09/19 09:47 Dose: 100 mls/hr Insulin Aspart (Novolog Vial Sliding Scale -) 1 vial SQ ACHS [facility]; Protocol Last Admin: 03/09/19 17:07 Dose: Not Given Lisinopril (Prinivil) 2.5 mg PO DAILY [facility] Last Admin: 03/09/19 09:45 Dose: 2.5 mg Metoprolol Succinate (Toprol Xl -) 100 mg PO BID [facility] Last Admin: 03/09/19 09:45 Dose: 100 mg - Objective Vital Signs: Vital Signs Temperature 98.5 F 03/09/19 19:36 Pulse Rate 93 H 03/09/19 19:36 Respiratory Rate 20 03/09/19 19:36 Blood Pressure 100/68 03/09/19 19:36 O2 Sat by Pulse Oximetry (%) 97 03/09/19 09:00 Constitutional: Yes: No Distress, Calm Cardiovascular: Yes: Regular Rate and Rhythm Respiratory: Yes: Regular, Diminished (Rt upper diminishedds, no r/r/w) Gastrointestinal: Yes: Normal Bowel Sounds, Soft Genitourinary: Yes: WNL Extremities: Yes: WNL Neurological: Yes: Alert Labs: CBC, BMP 03/09/19 09:10 03/09/19 09:10 INR, PTT INR 1.40 (0.83-1.09) H 03/08/19 06:36 Microbiology 03/07/19 21:00 Urine For Antigen Detection Legionella Antigen - Final 03/07/19 21:00 Urine For Antigen Detection Streptococcus pneumoniae Antigen (M - Final Problem List - Problems (1) CAD (coronary artery disease) Code(s): I25.10 - ATHSCL HEART DISEASE OF [place] CORONARY ARTERY W/O ANG PCTRS (2) Mass of upper lobe of right lung Code(s): R91.8 - OTHER NONSPECIFIC ABNORMAL FINDING OF LUNG FIELD (3) Mediastinal lymphadenopathy Code(s): R59.0 - LOCALIZED ENLARGED LYMPH NODES (4) Pleural effusion Code(s): J90 - PLEURAL EFFUSION, NOT ELSEWHERE CLASSIFIED (5) 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 male with PMH of DM, AFIB, CAD, HLD, anemia, Rt foot OM, and schizophrenia sent from [facility] due to abnormal CXR and indeterminate Quantiferon result and dry cough RUL/apical lung lesion - erosion into T3/rib r/o TB/malignancy b/l pleural effusions mediastinal/hilar KAYLYN DM CAD AFIB Anemia Schizophrenia -- sputum for culture/AFB x 3 ordered -- attempt at sputum collection unsuccessful even with induction -- biopsy lesion -- on airborne isolation -- IV antibiotics for now -- pt currently alert/afebrile, without respiratory distress -- continue monitor
[2019-03-10] MEDS ORDERED: PT OWN MED DRAWER 7, Y5N ONE ×2 (06:15→21:10)
[2019-03-10] MEDS: INSULIN SLIDING SCALE (NOVOLOG) 1 VIAL SQ SCH ×4 (07:13→21:47)
[2019-03-10] MEDS: ENOXAPARIN NA (PORCINE) 80 MG/0.8 ML DISP.SYRIN SQ SCH (07:15)
[2019-03-10] MEDS: dilTIAZem HCL 30 MG TABLET (FP) PO SCH ×3 (07:16→21:46)
--- NOTE | 2019-03-10 07:39 | PN ---
Addendum entered and electronically signed by Justin Alberto, RESIDENT 03/10/19 17:38: Microcytic anemia: Check iron studies tomorrow, possibility component of chronic disease based on mass Original Note: Progress Note (short form) - Note Progress Note: HPI: Briefly pt coming in due to Quantiferon result and noted to have RUL mass on XR. CT scan over weekend showed large massed with questionable erosion into localized tissue. Pt unable to give sputum even with induction. Pt with nonproductive cough, no nightsweats or chills. Denies shortness of breath at this point. Vital Signs Temperature 98.4 F 03/10/19 06:00 Pulse Rate 105 H 03/10/19 06:00 Respiratory Rate 20 03/10/19 06:00 Blood Pressure 96/58 L 03/10/19 06:00 O2 Sat by Pulse Oximetry (%) 97 03/09/19 09:00 PE: Gen: NAD, awake, alert, oriented x3 HEENT: NC/AT< MARCELA, sclera anicteric, MMM, posterior oropharynx without abnormalities LUNG: Good inspiratory effort with diminished breath sounds R anterior region, no clavicular lymphadenopathy, no rales or wheezes CARD: RRR no murmurs appreciated ABD: Soft, Nt/ND normoactive BS, no caput medusa, no guarding, no nodularity with liver palpation EXT: no edema strong pulses b/l Microbiology 03/07/19 21:00 Urine For Antigen Detection Legionella Antigen - Final 03/07/19 21:00 Urine For Antigen Detection Streptococcus pneumoniae Antigen (M - Final Active Medications Aripiprazole (Abilify) 5 mg PO DAILY [facility] Last Admin: 03/09/19 09:45 Dose: 5 mg Ascorbic Acid (Vitamin C -) 500 mg PO DAILY [facility] Last Admin: 03/09/19 09:46 Dose: 500 mg Benztropine Mesylate (Cogentin -) 0.5 mg PO DAILY [facility] Last Admin: 03/09/19 09:46 Dose: 0.5 mg Calcium Carbonate (Os-Davey 500mg -) 500 mg PO DAILY [facility] Last Admin: 03/09/19 09:46 Dose: 500 mg Cholecalciferol (Vitamin D3 -) 400 unit PO DAILY [facility] Last Admin: 03/09/19 09:45 Dose: 400 unit Diltiazem HCl (Cardizem -) 30 mg PO TID [facility] Last Admin: 03/10/19 07:16 Dose: 30 mg Enoxaparin Sodium (Lovenox -) 80 mg SQ Q12H [facility] Last Admin: 03/10/19 07:15 Dose: 80 mg Ferrous Sulfate (Feosol -) 325 mg PO DAILY [facility] Last Admin: 03/09/19 09:45 Dose: 325 mg Furosemide (Lasix -) 20 mg PO DAILY [facility] Last Admin: 03/09/19 09:45 Dose: 20 mg Azithromycin 250 mg/ Dextrose 250 mls @ 250 mls/hr IVPB DAILY [facility] Last Admin: 03/09/19 10:11 Dose: 250 mls/hr Ceftriaxone Sodium 1 gm/ (Dextrose) 50 mls @ 100 mls/hr IVPB DAILY [facility]; Protocol Last Admin: 03/09/19 09:47 Dose: 100 mls/hr Insulin Aspart (Novolog Vial Sliding Scale -) 1 vial SQ ACHS [facility]; Protocol Last Admin: 03/10/19 07:13 Dose: Not Given Lisinopril (Prinivil) 2.5 mg PO DAILY [facility] Last Admin: 03/09/19 09:45 Dose: 2.5 mg Metoprolol Succinate (Toprol Xl -) 100 mg PO BID [facility] Last Admin: 03/09/19 21:58 Dose: 100 mg Assessment and Plan: Right upper lobe mass Mediastinal lymphadenopathy Type 2 DM Atrial fibrillation Hx of HTN Schizophrenia history Hx of HLD Hx of CAD without stents --Pt scheduled for bronchoscopy tomorrow at 1:15pm in [place] with pulmonary --NPO after midnight --Holding Lovenox this afternoon to be restarted after procedure based on pulmonary --Anaerobic coverage with ABX considering post-obstructive infiltrative process --Appreciate all system consultant recommendations --Afib currently well-controlled --Continue Toprol XL 100mg BID PO --Continue Cardizem 30mg TID PO --Continue Abilify for behaviour modifier FEN: Fluids: none electrolyte abnormalities: none Nutrition: NPO after midnight today PPX: DVT - Lovenox to be held tonight GI - Not indicated Dispo: Biopsy tomorrow; continue M/S Case discussed with Dr. Paco Alberto, DO - IM PGY-3 <Justin Alberto - Last Filed: 03/10/19 17:35> - Note Progress Note: Seen and examined; please see resident note for further discussion. Agree with their note including assessment and plan as outlined aside from as supplemented myself. Independently reviewed and verified all [place] historical and PE findings as well as labs and imaging. Discussed at length with resident and consulting services. Aside from above no overnight events indicated. No worsening SOB or secretions. Bronch with bx tomorrow; pending heme onc. Continue on abx for pna-?post- obstructive component. Hasn't been able to make sputum for cultures. 10 sys ROS done and negative aside from HPI VS, labs, imaging reviewed NAD AAO resting in bed NC AT EOMI PERRLA RRR s1/2 Lungs CTAB, w/ sym exp NT ND +BS CN2-12 wnl, no fnd Normal mood, appropriate behavior No new rashes or skin breakdown noted Trachea midline without lymphadenopathy Independently reviewed images for initial CT. 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
[2019-03-10 08:04] LABS: BASO % 0.8 % (0-2.0); EOS % 1.8 % (0-4.5); HEMATOCRIT 28.8 % (35.4-49); HEMOGLOBIN 9.2 GM/dL (11.7-16.9); LYMPH % 7.1 % (8-40); MCH 24.6 pg (25.7-33.7); MCHC 31.8 g/dl (32.0-35.9); MEAN CELL VOLUME 77.3 fl (80-96); MEAN PLT VOLUME 7.5 fl (7.5-11.1); MONO % 6.4 % (3.8-10.2); NEUT % 83.9 % (42.8-82.8); PLATELET COUNT 285 K/MM3 (134-434); RBC 3.73 M/mm3 (4.00-5.60); RDW 28.1 % (11.9-15.9); WHITE BLOOD COUNT 9.1 K/mm3 (4.0-10.0)
[2019-03-10 08:32] LABS: BLOOD UREA NITROGEN 13.2 mg/dL (7-18); CALCIUM 8.4 mg/dL (8.5-10.1); CREATININE 0.6 mg/dL (0.55-1.3); POTASSIUM 4.4 mmol/L (3.5-5.1)
--- NOTE | 2019-03-10 08:59 | PN ---
Progress Note (short form) - Note Progress Note: Awake and alert in NAD on RA. Dry cough. Still not able to expectorate. Intake & Output 03/07/19 03/08/19 03/09/19 03/10/19 23:59 23:59 23:59 23:59 Intake Total 974 010 1933 Output Total 975 1450 Balance 600 -325 -380 Weight 172 lb 1.6 oz 167 lb 7 oz 168 lb 14.4 oz Last Vital Signs Temp Pulse Resp BP Pulse Ox 98.4 F 105 H 20 96/58 L 97 03/10/19 06:00 03/10/19 06:00 03/10/19 08:47 03/10/19 06:00 03/10/19 08:47 Active Medications Aripiprazole (Abilify) 5 mg PO DAILY [facility] Last Admin: 03/09/19 09:45 Dose: 5 mg Ascorbic Acid (Vitamin C -) 500 mg PO DAILY [facility] Last Admin: 03/09/19 09:46 Dose: 500 mg Benztropine Mesylate (Cogentin -) 0.5 mg PO DAILY [facility] Last Admin: 03/09/19 09:46 Dose: 0.5 mg Calcium Carbonate (Os-Davey 500mg -) 500 mg PO DAILY [facility] Last Admin: 03/09/19 09:46 Dose: 500 mg Cholecalciferol (Vitamin D3 -) 400 unit PO DAILY [facility] Last Admin: 03/09/19 09:45 Dose: 400 unit Diltiazem HCl (Cardizem -) 30 mg PO TID [facility] Last Admin: 03/10/19 07:16 Dose: 30 mg Enoxaparin Sodium (Lovenox -) 80 mg SQ Q12H [facility] Last Admin: 03/10/19 07:15 Dose: 80 mg Ferrous Sulfate (Feosol -) 325 mg PO DAILY [facility] Last Admin: 03/09/19 09:45 Dose: 325 mg Furosemide (Lasix -) 20 mg PO DAILY [facility] Last Admin: 03/09/19 09:45 Dose: 20 mg Azithromycin 250 mg/ Dextrose 250 mls @ 250 mls/hr IVPB DAILY [facility] Last Admin: 03/09/19 10:11 Dose: 250 mls/hr Ceftriaxone Sodium 1 gm/ (Dextrose) 50 mls @ 100 mls/hr IVPB DAILY [facility]; Protocol Last Admin: 03/09/19 09:47 Dose: 100 mls/hr Insulin Aspart (Novolog Vial Sliding Scale -) 1 vial SQ ACHS [facility]; Protocol Last Admin: 03/10/19 07:13 Dose: Not Given Lisinopril (Prinivil) 2.5 mg PO DAILY [facility] Last Admin: 03/09/19 09:45 Dose: 2.5 mg Metoprolol Succinate (Toprol Xl -) 100 mg PO BID [facility] Last Admin: 03/09/19 21:58 Dose: 100 mg Constitutional: Yes: No Distress Eyes: Yes: Conjunctiva Clear, EOM Intact HENT: Yes: Atraumatic, Normocephalic Neck: Yes: Supple, Trachea Midline Cardiovascular: Yes: Regular Rate and Rhythm Respiratory: Yes: Cough, Diminished. No: Accessory Muscle Use, Rales, Rhonchi, SOB, SOB on Exertion, Stridor, Tachypnea, Wheezes ...Inspection: Yes: WNL ...Clubbing: No Gastrointestinal: Yes: Normal Bowel Sounds, Soft Renal/: Yes: WNL Musculoskeletal: Yes: WNL Extremities: Yes: WNL Edema: No Peripheral Pulses WNL: Yes Integumentary: Yes: WNL Neurological: Yes: WNL, Alert, Oriented ...Motor Strength: WNL Psychiatric: Yes: WNL, Alert, Oriented Labs: Laboratory Results - last 24 hr 03/09/19 03/09/19 03/09/19 09:10 09:10 11:03 WBC 10.9 H RBC 3.85 L Hgb 9.5 L Hct 29.8 L MCV 77.2 L MCH 24.6 L MCHC 31.9 L RDW 27.9 H Plt Count 292 MPV 7.6 Absolute Neuts (auto) 9.0 H Neutrophils % 82.8 Lymphocytes % 9.3 D Monocytes % 5.0 Eosinophils % 1.8 Basophils % 1.1 Nucleated RBC % 0 Sodium 136 Potassium 4.1 Chloride 101 Carbon Dioxide 30 Anion Gap 5 L BUN 11.0 Creatinine 0.5 L Est GFR (CKD-EPI)AfAm 130.88 Est GFR (CKD-EPI)NonAf 112.92 POC Glucometer 235 Random Glucose 97 Calcium 8.6 03/09/19 03/10/19 03/10/19 17:05 06:35 06:35 WBC 9.1 RBC 3.73 L Hgb 9.2 L Hct 28.8 L MCV 77.3 L MCH 24.6 L MCHC 31.8 L RDW 28.1 H Plt Count 285 MPV 7.5 Absolute Neuts (auto) 7.6 Neutrophils % 83.9 H Lymphocytes % 7.1 L D Monocytes % 6.4 Eosinophils % 1.8 Basophils % 0.8 Nucleated RBC % 0 Sodium 136 Potassium 4.4 Chloride 100 Carbon Dioxide 32 Anion Gap 4 L BUN 13.2 Creatinine 0.6 Est GFR (CKD-EPI)AfAm 121.43 Est GFR (CKD-EPI)NonAf 104.77 POC Glucometer 86 Random Glucose 118 H Calcium 8.4 L Problem List - Problems (1) Pleural effusion Code(s): J90 - PLEURAL EFFUSION, NOT ELSEWHERE CLASSIFIED (2) Mediastinal lymphadenopathy Code(s): R59.0 - LOCALIZED ENLARGED LYMPH NODES (3) Mass of upper lobe of right lung Code(s): R91.8 - OTHER NONSPECIFIC ABNORMAL FINDING OF LUNG FIELD (4) 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 Code(s): E11.39 - TYPE 2 DIABETES W OTH DIABETIC OPHTHALMIC COMPLICATION; H43.13 - VITREOUS HEMORRHAGE, BILATERAL (5) Afib Code(s): I48.91 - UNSPECIFIED ATRIAL FIBRILLATION Qualifiers: Atrial fibrillation type: persistent (6) Anemia Code(s): D64.9 - ANEMIA, UNSPECIFIED Qualifiers: Anemia type: unspecified type Qualified Code(s): D64.9 - Anemia, unspecified (7) Diabetes Code(s): E11.9 - TYPE 2 DIABETES MELLITUS WITHOUT COMPLICATIONS (8) Diabetic peripheral vascular disease Code(s): E11.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 (9) HTN (hypertension) Code(s): I10 - ESSENTIAL (PRIMARY) HYPERTENSION Qualifiers: Hypertension type: essential hypertension Qualified Code(s): I10 - Essential (primary) hypertension (10) Schizophrenia Code(s): F20.9 - SCHIZOPHRENIA, UNSPECIFIED Assessment/Plan Induced Sputum ordered but patient unable to produce sample. 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 Code(s): E11.39 - TYPE 2 DIABETES W OTH DIABETIC OPHTHALMIC COMPLICATION; H43.13 - VITREOUS HEMORRHAGE, BILATERAL (5) Afib Code(s): I48.91 - UNSPECIFIED ATRIAL FIBRILLATION Qualifiers: Atrial fibrillation type: persistent (6) Anemia Code(s): D64.9 - ANEMIA, UNSPECIFIED Qualifiers: Anemia type: unspecified type Qualified Code(s): D64.9 - Anemia, unspecified (7) Diabetes Code(s): E11.9 - TYPE 2 DIABETES MELLITUS WITHOUT COMPLICATIONS (8) Diabetic peripheral vascular disease Code(s): E11.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 (9) HTN (hypertension) Code(s): I10 - ESSENTIAL (PRIMARY) HYPERTENSION Qualifiers: Hypertension type: essential hypertension Qualified Code(s): I10 - Essential (primary) hypertension (10) Schizophrenia Code(s): F20.9 - SCHIZOPHRENIA, UNSPECIFIED
[2019-03-10] MEDS ORDERED: DEXTROSE 5%-WATER - 50 ML IVPB ONE (09:17)
[2019-03-10] MEDS ORDERED: cefTRIAXone SODIUM 1 GM VIAL ONE (09:17)
[2019-03-10] MEDS: LISINOPRIL 5 MG TABLET (FP) PO SCH (10:30)
[2019-03-10] MEDS: ASCORBIC ACID 500 MG TABLET (FP) PO SCH (10:30)
[2019-03-10] MEDS: FERROUS SO4 325 MG TABLET (FP) PO SCH (10:30)
[2019-03-10] MEDS: FUROSEMIDE 20 MG TABLET (FP) PO SCH (10:31)
[2019-03-10] MEDS: CHOLECALCIFEROL (VIT D3) 400 UNIT (10 MCG) TABLET PO SCH (10:31)
[2019-03-10] MEDS: CALCIUM (OYSTER SHELL) 500 MG TABLET (FP) PO SCH (10:31)
[2019-03-10] MEDS: CEFTRIAXONE 1 GM in DEXTROSE 5%-WATER - 50 ML IVPB SCH (10:31)
[2019-03-10] MEDS: ARIPiprazole 5 MG TABLET (FP) PO SCH (10:33)
[2019-03-10] MEDS: BENZTROPINE MESYLATE 0.5 MG TABLET (FP) PO SCH (10:33)
--- NOTE | 2019-03-10 11:08 | PN ---
Progress Note, Physician History of Present Illness: awake and alert no complaints unable to induce sputum - Current Medication List Current Medications: Active Medications Aripiprazole (Abilify) 5 mg PO DAILY [facility] Last Admin: 03/10/19 10:33 Dose: 5 mg Ascorbic Acid (Vitamin C -) 500 mg PO DAILY [facility] Last Admin: 03/10/19 10:30 Dose: 500 mg Benztropine Mesylate (Cogentin -) 0.5 mg PO DAILY [facility] Last Admin: 03/10/19 10:33 Dose: 0.5 mg Calcium Carbonate (Os-Davey 500mg -) 500 mg PO DAILY [facility] Last Admin: 03/10/19 10:31 Dose: 500 mg Cholecalciferol (Vitamin D3 -) 400 unit PO DAILY [facility] Last Admin: 03/10/19 10:31 Dose: 400 unit Diltiazem HCl (Cardizem -) 30 mg PO TID [facility] Last Admin: 03/10/19 07:16 Dose: 30 mg Enoxaparin Sodium (Lovenox -) 80 mg SQ Q12H [facility] Last Admin: 03/10/19 07:15 Dose: 80 mg Ferrous Sulfate (Feosol -) 325 mg PO DAILY [facility] Last Admin: 03/10/19 10:30 Dose: 325 mg Furosemide (Lasix -) 20 mg PO DAILY [facility] Last Admin: 03/10/19 10:31 Dose: 20 mg Azithromycin 250 mg/ Dextrose 250 mls @ 250 mls/hr IVPB DAILY [facility] Last Admin: 03/09/19 10:11 Dose: 250 mls/hr Ceftriaxone Sodium 1 gm/ (Dextrose) 50 mls @ 100 mls/hr IVPB DAILY [facility]; Protocol Last Admin: 03/10/19 10:31 Dose: 100 mls/hr Insulin Aspart (Novolog Vial Sliding Scale -) 1 vial SQ ACHS [facility]; Protocol Last Admin: 03/10/19 07:13 Dose: Not Given Lisinopril (Prinivil) 2.5 mg PO DAILY [facility] Last Admin: 03/10/19 10:30 Dose: 2.5 mg Metoprolol Succinate (Toprol Xl -) 100 mg PO BID [facility] Last Admin: 03/10/19 10:30 Dose: 100 mg - Objective Vital Signs: Vital Signs Temperature 98.2 F 03/10/19 10:00 Pulse Rate 88 03/10/19 10:00 Respiratory Rate 20 03/10/19 10:00 Blood Pressure 90/64 03/10/19 10:00 O2 Sat by Pulse Oximetry (%) 97 03/10/19 08:47 Constitutional: Yes: No Distress, Calm Cardiovascular: Yes: S1, S2 Respiratory: Yes: Cough (dry), Poor Air Entry Gastrointestinal: Yes: Normal Bowel Sounds, Soft Musculoskeletal: Yes: WNL Extremities: Yes: WNL Neurological: Yes: Alert, Oriented Psychiatric: Yes: Alert, Oriented Labs: CBC, BMP 03/10/19 06:35 03/10/19 06:35 INR, PTT INR 1.40 (0.83-1.09) H 03/08/19 06:36 Assessment/Plan Problem List - Problems (1) CAD (coronary artery disease) Code(s): I25.10 - ATHSCL HEART DISEASE OF [place] CORONARY ARTERY W/O ANG PCTRS (2) Mass of upper lobe of right lung Code(s): R91.8 - OTHER NONSPECIFIC ABNORMAL FINDING OF LUNG FIELD (3) Mediastinal lymphadenopathy Code(s): R59.0 - LOCALIZED ENLARGED LYMPH NODES (4) Pleural effusion Code(s): J90 - PLEURAL EFFUSION, NOT ELSEWHERE CLASSIFIED (5) 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 male with PMH of DM, AFIB, CAD, HLD, anemia, Rt foot OM, and schizophrenia sent from [facility] due to abnormal CXR and indeterminate Quantiferon result and dry cough RUL/apical lung lesion - erosion into T3/rib r/o TB/malignancy b/l pleural effusions mediastinal/hilar KAYLYN DM CAD AFIB Anemia Schizophrenia await for final plan for biopsy continue current mgmt
--- NOTE | 2019-03-10 12:43 | ECHO ---
Name: CHARY RUSS Exam:Adult Echocardiogram Study Date: 03/10/2019 12:01 PM Age: 68 yrs Reason For Study: ef Height: 68 in Weight: 168 lb BSA: 1.9 m2 MMode/2D Measurements & Calculations IVSd: 1.1 cm Ao root diam: 3.4 cm LVIDd: 5.2 cm LA dimension: 4.0 cm LVIDs: 3.5 cm LVPWd: 1.3 cm EDV(Teich): 130.2 ml LVOT diam: 2.2 cm ESV(Teich): 52.3 ml LAV (MOD-bp): 86.3 ml Doppler Measurements & Calculations MV E max esvin: 109.0 cm/sec Ao V2 max: 120.8 cm/sec MV A max esvin: 47.1 cm/sec Ao max P.8 mmHg MV E/A: 2.3 AI P1/2t: 506.5 msec MV dec time: 0.12 sec FATUMA(V,D): 2.4 cm2 AI max esvin: 194.1 cm/sec LV V1 max P.3 mmHg AI max P.1 mmHg LV V1 max: 76.2 cm/sec AI dec slope: 112.3 cm/sec2 MR max esvin: 422.9 cm/sec TR max esvin: 209.3 cm/sec MR max P.7 mmHg TR max P.7 mmHg PA V2 max: 77.4 cm/sec Med Peak E' Esvin: 7.8 cm/sec PA max P.4 mmHg Med E/e': 13.9 Lat Peak E' Esvin: 11.1 cm/sec Lat E/e': 9.8 PI Vmax: 92.3 cm/sec Procedure A complete two-dimensional transthoracic echocardiogram was performed (2D, M-mode, Doppler and color flow Doppler). Technically limited study. Left Ventricle The left ventricle is normal in size. Left ventricular systolic function is low normal. Ejection Frac tion = 50-55%. No regional wall motion abnormalities noted. Right Ventricle The right ventricle is normal size. The right ventricular systolic function is normal. Atria The left atrium is mildly dilated. The right atrium is mildly dilated. Mitral Valve There is mild mitral annular calcification. There is mild mitral valve thickening. There is mild to m oderate mitral regurgitation. Tricuspid Valve The tricuspid valve is normal in structure and function. There is moderate tricuspid regurgitation. R ight ventricular systolic pressure is normal. Aortic Valve The aortic valve is normal in structure and function. No aortic regurgitation is present. Pulmonic Valve The pulmonic valve is not well visualized. Great Vessels The aortic root is normal size. Pericardium/Pleura There is no pericardial effusion. Interpretation Summary Technically limited study The left ventricle is normal in size. Left ventricular systolic function is low normal. No regional wall motion abnormalities noted. Ejection Fraction = 50-55%. The right ventricular systolic function is normal. The left atrium is mildly dilated. The right atrium is mildly dilated. There is mild mitral annular calcification. There is mild mitral valve thickening. There is mild to moderate mitral regurgitation. There is moderate tricuspid regurgitation. Right ventricular systolic pressure is normal. There is no pericardial effusion. Homer Calvert MD 03/10/2019 12:43 PM
[2019-03-10] MEDS: AZITHROMYCIN IVPB 250 MG in DEXTROSE 5%-WATER - 250 ML IVPB SCH (13:03)
--- NOTE | 2019-03-10 13:26 | CONSULT ---
Consultation: REQUESTING PROVIDER: Heme/Onc Service CONSULT REQUEST: We have been asked to medically evaluate this patient for microcytic anemia and lung mass. HISTORY OF PRESENT ILLNESS: Pt is a 68 y/o M, somewhat poor historian with PMH schizophrenia, MDD, tremors, afib on xarelto, DM, HLD, Anemia, CAD, RLE osteomyelitis diagnosed in 2018, presenting from [facility] for an indeterminate quantiferon and abnormal CXR. Pt gives inconsistent history and is unclear why he is here stating "for a chest x ray" when asked. He does not have any complaints at the time of my interview. When asked about cough, he stated he has been coughing "since the day I was born", but denies having any blood or sputum. Denies weight loss. Does admit to smoking history of 42 years, though he could not quantify daily use. REVIEW OF SYSTEMS: CONSTITUTIONAL: Absent: fever, chills, diaphoresis, generalized weakness, malaise, loss of appetite, weight change HEENT: Absent: rhinorrhea, nasal congestion, throat pain, throat swelling, difficulty swallowing, mouth swelling, ear pain, eye pain, visual changes CARDIOVASCULAR: Absent: chest pain, syncope, palpitations, irregular heart rate, lightheadedness , peripheral edema RESPIRATORY: cough, Absent: shortness of breath, dyspnea with exertion, orthopnea, wheezing, stridor, hemoptysis GASTROINTESTINAL: Absent: abdominal pain, abdominal distension, nausea, vomiting, diarrhea, constipation, melena, hematochezia GENITOURINARY: Absent: dysuria, frequency, urgency, hesitancy, hematuria, flank pain, genital pain MUSCULOSKELETAL: Absent: myalgia, arthralgia, joint swelling, back pain, neck pain SKIN: Absent: rash, itching, pallor HEMATOLOGIC/IMMUNOLOGIC: Absent: easy bleeding, easy bruising, lymphadenopathy, frequent infections ENDOCRINE: Absent: unexplained weight gain, unexplained weight loss, heat intolerance, cold intolerance NEUROLOGIC: Absent: headache, focal weakness or paresthesias, dizziness, unsteady gait, seizure, mental status changes, bladder or bowel incontinence PSYCHIATRIC: Absent: anxiety, depression, suicidal or homicidal ideation, hallucinations. PHYSICAL EXAMINATION Vital Signs - 24 hr 03/09/19 03/09/19 03/09/19 14:52 18:36 18:43 Temperature 98.1 F 98.7 F 98.6 F Pulse Rate 103 H 89 Respiratory 18 20 Rate Blood Pressure 106/61 89/62 L O2 Sat by Pulse Oximetry (%) 03/09/19 03/09/19 03/10/19 19:36 23:00 01:47 Temperature 98.5 F 98.7 F 98.6 F Pulse Rate 93 H 82 96 H Respiratory 20 20 20 Rate Blood Pressure 100/68 90/68 93/61 O2 Sat by Pulse Oximetry (%) 03/10/19 03/10/19 03/10/19 06:00 08:47 10:00 Temperature 98.4 F 98.2 F Pulse Rate 105 H 88 Respiratory 20 20 20 Rate Blood Pressure 96/58 L 90/64 O2 Sat by Pulse 97 Oximetry (%) Gen: NAD, AAO x 3 HEENT: NCAT, EOMI Neck: no jvd Cardio: irregular, no mrg, s1s2 normal Pulm: coarse breath sounds Abd: soft, nontender, nondistended, surgical site scars at ubmilicus Laboratory Results - last 24 hr 03/09/19 03/10/19 03/10/19 17:05 06:35 06:35 WBC 9.1 RBC 3.73 L Hgb 9.2 L Hct 28.8 L MCV 77.3 L MCH 24.6 L MCHC 31.8 L RDW 28.1 H Plt Count 285 MPV 7.5 Absolute Neuts (auto) 7.6 Neutrophils % 83.9 H Lymphocytes % 7.1 L D Monocytes % 6.4 Eosinophils % 1.8 Basophils % 0.8 Nucleated RBC % 0 Sodium 136 Potassium 4.4 Chloride 100 Carbon Dioxide 32 Anion Gap 4 L BUN 13.2 Creatinine 0.6 Est GFR (CKD-EPI)AfAm 121.43 Est GFR (CKD-EPI)NonAf 104.77 POC Glucometer 86 Random Glucose 118 H Calcium 8.4 L Active Medications Generic Name Dose Route Start Last Admin Trade Name Freq PRN Reason Stop Dose Admin Aripiprazole 5 mg 03/08/19 10:00 03/10/19 10:33 Abilify PO 5 mg DAILY [facility] Administration Ascorbic Acid 500 mg 03/08/19 10:00 03/10/19 10:30 Vitamin C - PO 500 mg DAILY [facility] Administration Benztropine Mesylate 0.5 mg 03/08/19 10:00 03/10/19 10:33 Cogentin - PO 0.5 mg DAILY [facility] Administration Calcium Carbonate 500 mg 03/08/19 10:00 03/10/19 10:31 Os-Davey 500mg - PO 500 mg DAILY [facility] Administration Cholecalciferol 400 unit 03/08/19 10:00 03/10/19 10:31 Vitamin D3 - PO 400 unit DAILY [facility] Administration Diltiazem HCl 30 mg 03/08/19 06:00 03/10/19 07:16 Cardizem - PO 30 mg TID [facility] Administration Enoxaparin Sodium 80 mg 03/08/19 18:00 03/10/19 07:15 Lovenox - SQ 80 mg Q12H [facility] Administration Ferrous Sulfate 325 mg 03/08/19 10:00 03/10/19 10:30 Feosol - PO 325 mg DAILY [facility] Administration Furosemide 20 mg 03/08/19 10:00 03/10/19 10:31 Lasix - PO 20 mg DAILY [facility] Administration Azithromycin 250 mg/ Dextrose 250 mls @ 250 mls/hr 03/08/19 10:00 03/10/19 13 :03 IVPB 250 mls/hr DAILY [facility] Administration Ceftriaxone Sodium 1 gm/ 50 mls @ 100 mls/hr 03/07/19 20:15 03/10/19 10:31 Dextrose IVPB 100 mls/hr DAILY [facility] Administration Protocol Insulin Aspart 1 vial 03/07/19 22:00 03/10/19 13:04 Novolog Vial Sliding Scale - SQ Not Given ACHS [facility] Protocol Lisinopril 2.5 mg 03/08/19 10:00 03/10/19 10:30 Prinivil PO 2.5 mg DAILY [facility] Administration Metoprolol Succinate 100 mg 03/07/19 23:00 03/10/19 10:30 Toprol Xl - PO 100 mg BID [facility] Administration ASSESSMENT/PLAN: Pt is a 68 y/o M with PMH schizophrenia, MDD, tremors, afib on xarelto, DM, HLD , Anemia, CAD, RLE osteomyelitis diagnosed in 2018, presenting from [facility] for an indeterminate quantiferon and abnormal CXR. CXR was significant for pleural effusions and lung mass. Chest CT was significant for the above as well as mediastinal lymphadenopathy and L adrenal hyperplasia. Heme/Onc was called to evaluate for anemia and lung mass. microcytic hypochromic Anemia -? Fe defic -retics, fe studies Lung mass -no tissue diagnosis as of yet -pt for bronch and biopsy tomorrow Dispo: We will continue to follow the patient. Thank you for this consultative opportunity. Visit type - Emergency Visit Emergency Visit: No - New Patient This patient is new to me today: Yes Date on this admission: 03/10/19 - Critical Care Critical Care patient: No ATTENDING PHYSICIAN STATEMENT I saw and evaluated the patient. I reviewed the resident's note and discussed the case with the resident. I agree with the resident's findings and plan as documented. SUBJECTIVE: OBJECTIVE: ASSESSMENT AND PLAN:
[2019-03-10 16:27] VITALS: BMI 25.5
[2019-03-11] MEDS: INSULIN SLIDING SCALE (NOVOLOG) 1 VIAL SQ SCH ×4 (06:32→21:31)
[2019-03-11] MEDS: dilTIAZem HCL 30 MG TABLET (FP) PO SCH ×3 (06:32→21:27)
--- NOTE | 2019-03-11 07:00 | PN ---
Progress Note (short form) - Note Progress Note: HPI: For Bronchoscopy today in afternoon. No new complaints today. No events overnight. Vital Signs Temperature 98.8 F 03/11/19 06:00 Pulse Rate 96 H 03/11/19 06:00 Respiratory Rate 20 03/11/19 06:00 Blood Pressure 96/66 03/11/19 06:00 O2 Sat by Pulse Oximetry (%) 97 03/10/19 21:00 PE: Gen: NAD, awake, alert, oriented x3 HEENT: NC/AT< MARCELA, sclera anicteric, MMM, posterior oropharynx without abnormalities LUNG: Good inspiratory effort with diminished breath sounds R anterior region, no clavicular lymphadenopathy, no rales or wheezes CARD: RRR no murmurs appreciated ABD: Soft, Nt/ND normoactive BS, no caput medusa, no guarding, no nodularity with liver palpation EXT: no edema strong pulses b/l Microbiology 03/07/19 21:00 Urine For Antigen Detection Legionella Antigen - Final 03/07/19 21:00 Urine For Antigen Detection Streptococcus pneumoniae Antigen (M - Final Active Medications Aripiprazole (Abilify) 5 mg PO DAILY [facility] Last Admin: 03/10/19 10:33 Dose: 5 mg Ascorbic Acid (Vitamin C -) 500 mg PO DAILY [facility] Last Admin: 03/10/19 10:30 Dose: 500 mg Benztropine Mesylate (Cogentin -) 0.5 mg PO DAILY [facility] Last Admin: 03/10/19 10:33 Dose: 0.5 mg Calcium Carbonate (Os-Davey 500mg -) 500 mg PO DAILY [facility] Last Admin: 03/10/19 10:31 Dose: 500 mg Cholecalciferol (Vitamin D3 -) 400 unit PO DAILY [facility] Last Admin: 03/10/19 10:31 Dose: 400 unit Diltiazem HCl (Cardizem -) 30 mg PO TID [facility] Last Admin: 03/11/19 06:32 Dose: Not Given Enoxaparin Sodium (Lovenox -) 80 mg SQ Q12H [facility] Last Admin: 03/10/19 07:15 Dose: 80 mg Ferrous Sulfate (Feosol -) 325 mg PO DAILY [facility] Last Admin: 03/10/19 10:30 Dose: 325 mg Furosemide (Lasix -) 20 mg PO DAILY [facility] Last Admin: 03/10/19 10:31 Dose: 20 mg Azithromycin 250 mg/ Dextrose 250 mls @ 250 mls/hr IVPB DAILY [facility] Last Admin: 03/10/19 13:03 Dose: 250 mls/hr Ceftriaxone Sodium 1 gm/ (Dextrose) 50 mls @ 100 mls/hr IVPB DAILY [facility]; Protocol Last Admin: 03/10/19 10:31 Dose: 100 mls/hr Insulin Aspart (Novolog Vial Sliding Scale -) 1 vial SQ ACHS [facility]; Protocol Last Admin: 03/11/19 06:32 Dose: Not Given Lisinopril (Prinivil) 2.5 mg PO DAILY [facility] Last Admin: 03/10/19 10:30 Dose: 2.5 mg Metoprolol Succinate (Toprol Xl -) 100 mg PO BID [facility] Last Admin: 03/10/19 21:46 Dose: 100 mg Assessment and Plan: Right upper lobe mass Mediastinal lymphadenopathy Iron deficient anemia Type 2 DM Atrial fibrillation Hx of HTN Schizophrenia history Hx of HLD Hx of CAD without stents --Pt scheduled for bronchoscopy today at 1:15pm with pulmonary --NPO in place --Lovenox held; restart per pulmonary post-procedure --Anaerobic coverage with ABX considering post-obstructive infiltrative process --Appreciate all retail consultant recommendations --Afib currently well-controlled --Continue Toprol XL 100mg BID PO --Continue Cardizem 30mg TID PO --Continue Abilify for behaviour modification --After bronchoscopy can start on Ferrous Sulfate 325mg PO qdaily for iron deficiency --H/H remains stable; monitor for bleeding FEN: Fluids: none electrolyte abnormalities: Awaiting morning labs Nutrition: NPO; can resume daibetic/sodium after procedure PPX: DVT - Chemical ppx on hold GI - Not indicated Dispo: Biopsy; monitor M/S Case discussed with Dr. Paco Alberto, DO - IM PGY-3 <Justin Alberto - Last Filed: 03/11/19 09:19> - Note Progress Note: [facility] *LIVE* Progress Note (short form) Patient Name: CHARY RUSS Date of : 1950 Patient Status: Inpatient Attending Provider: Miles Antonio Date: 03/10/19 07:39 Initialization Date: 03/10/19 07:39 Addendum entered and electronically signed by Justin Alberto, RESIDENT 03/10/19 17:38: Microcytic anemia: Check iron studies tomorrow, possibility component of chronic disease based on mass Original Note: Progress Note (short form) - Note Progress Note: HPI: Briefly pt coming in due to Quantiferon result and noted to have RUL mass on XR. CT scan over weekend showed large massed with questionable erosion into localized tissue. Pt unable to give sputum even with induction. Pt with nonproductive cough, no nightsweats or chills. Denies shortness of breath at this point. Vital Signs Temperature 98.4 F 03/10/19 06:00 Pulse Rate 105 H 03/10/19 06:00 Respiratory Rate 20 03/10/19 06:00 Blood Pressure 96/58 L 03/10/19 06:00 O2 Sat by Pulse Oximetry (%) 97 03/09/19 09:00 PE: Gen: NAD, awake, alert, oriented x3 HEENT: NC/AT< MARCELA, sclera anicteric, MMM, posterior oropharynx without abnormalities LUNG: Good inspiratory effort with diminished breath sounds R anterior region, no clavicular lymphadenopathy, no rales or wheezes CARD: RRR no murmurs appreciated ABD: Soft, Nt/ND normoactive BS, no caput medusa, no guarding, no nodularity with liver palpation EXT: no edema strong pulses b/l Microbiology 03/07/19 21:00 Urine For Antigen Detection Legionella Antigen - Final 03/07/19 21:00 Urine For Antigen Detection Streptococcus pneumoniae Antigen (M - Final Active Medications Aripiprazole (Abilify) 5 mg PO DAILY [facility] Last Admin: 03/09/19 09:45 Dose: 5 mg Ascorbic Acid (Vitamin C -) 500 mg PO DAILY [facility] Last Admin: 03/09/19 09:46 Dose: 500 mg Benztropine Mesylate (Cogentin -) 0.5 mg PO DAILY [facility] Last Admin: 03/09/19 09:46 Dose: 0.5 mg Calcium Carbonate (Os-Davey 500mg -) 500 mg PO DAILY [facility] Last Admin: 03/09/19 09:46 Dose: 500 mg Cholecalciferol (Vitamin D3 -) 400 unit PO DAILY [facility] Last Admin: 03/09/19 09:45 Dose: 400 unit Diltiazem HCl (Cardizem -) 30 mg PO TID [facility] Last Admin: 03/10/19 07:16 Dose: 30 mg Enoxaparin Sodium (Lovenox -) 80 mg SQ Q12H [facility] Last Admin: 03/10/19 07:15 Dose: 80 mg Ferrous Sulfate (Feosol -) 325 mg PO DAILY [facility] Last Admin: 03/09/19 09:45 Dose: 325 mg Furosemide (Lasix -) 20 mg PO DAILY [facility] Last Admin: 03/09/19 09:45 Dose: 20 mg Azithromycin 250 mg/ Dextrose 250 mls @ 250 mls/hr IVPB DAILY [facility] Last Admin: 03/09/19 10:11 Dose: 250 mls/hr Ceftriaxone Sodium 1 gm/ (Dextrose) 50 mls @ 100 mls/hr IVPB DAILY [facility]; Protocol Last Admin: 03/09/19 09:47 Dose: 100 mls/hr Insulin Aspart (Novolog Vial Sliding Scale -) 1 vial SQ ACHS [facility]; Protocol Last Admin: 03/10/19 07:13 Dose: Not Given Lisinopril (Prinivil) 2.5 mg PO DAILY [facility] Last Admin: 03/09/19 09:45 Dose: 2.5 mg Metoprolol Succinate (Toprol Xl -) 100 mg PO BID [facility] Last Admin: 03/09/19 21:58 Dose: 100 mg Assessment and Plan: Right upper lobe mass Mediastinal lymphadenopathy Type 2 DM Atrial fibrillation Hx of HTN Schizophrenia history Hx of HLD Hx of CAD without stents --Pt scheduled for bronchoscopy tomorrow at 1:15pm in [place] with pulmonary --NPO after midnight --Holding Lovenox this afternoon to be restarted after procedure based on pulmonary --Anaerobic coverage with ABX considering post-obstructive infiltrative process --Appreciate all retail consultant recommendations --Afib currently well-controlled --Continue Toprol XL 100mg BID PO --Continue Cardizem 30mg TID PO --Continue Abilify for behaviour modifier FEN: Fluids: none electrolyte abnormalities: none Nutrition: NPO after midnight today PPX: DVT - Lovenox to be held tonight GI - Not indicated Dispo: Biopsy tomorrow; continue M/S Case discussed with Dr. Paco Alberto, DO - IM PGY-3 <Justin Alberto - Last Filed: 03/10/19 17:35> - Note Progress Note: Seen and examined; please see resident note for further discussion. Agree with their note including assessment and plan as outlined aside from as supplemented myself. Independently reviewed and verified all [place] historical and PE findings as well as labs and imaging. Discussed at length with resident and consulting services. Aside from above no overnight events indicated. No worsening SOB or secretions. Bronch with bx tomorrow; pending heme onc. Continue on abx for pna-?post- obstructive component. Hasn't been able to make sputum for cultures. There has been no QTF done. 10 sys ROS done and negative aside from HPI VS, labs, imaging reviewed NAD AAO resting in bed NC AT EOMI PERRLA RRR s1/2 Lungs CTAB, w/ sym exp NT ND +BS CN2-12 wnl, no fnd Normal mood, appropriate behavior No new rashes or skin breakdown noted Trachea midline without lymphadenopathy Independently reviewed images for initial CT. Echo reviewed; biatrial enlargement with mod MV disease noted but non- hemodynamically sig. Low normal LVEF. A/P: Patient presents for lung mass and is pending bronchoscopy with biopsy; post procedure CXR without initial issues. Lung Mass (Bronchoscopy with biopsy today; discussed consent with Dr. Sharma. Will need ultimate plan per heme onc with tissue pathology. Overall, the patient has questionable capacity to accept or refuse treatment and should he have the need for ongoing oncologic care this may require ethics consultation and evaluation. Strong smoking history noted). 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 Restart AC post procedure if no s/s bleed.) History of diastolic dysfunction (Appears euvolemic at this juncture) History nonobstructing CAD (Noted historical findings, no current sx. No wma on echo and no new ischemic changes on EKG). Chronic iron deficiency anemia with likely component of Anemia of Chronic Disease (Noted iron studies and red cell indices; start PO iron supplementation. Will discuss with heme prior to DC. Unaware of indications for IV iron at this time). Full Code Will need to discuss logistics of ongoing care likely with CW/CM/Ethics given his underlying mental pathology and potential for ongoing oncologic care needs once tissue diagnosis is available. <Miles Antonio - Last Filed: 03/11/19 22:55>
[2019-03-11 08:13] LABS: HEMOGLOBIN 9.5 GM/dL (11.7-16.9); MCH 24.4 pg (25.7-33.7); MCHC 31.5 g/dl (32.0-35.9); MEAN CELL VOLUME 77.4 fl (80-96); MEAN PLT VOLUME 7.6 fl (7.5-11.1); PLATELET COUNT 306 K/MM3 (134-434); RBC 3.88 M/mm3 (4.00-5.60); RDW 27.6 % (11.9-15.9); WHITE BLOOD COUNT 8.9 K/mm3 (4.0-10.0)
[2019-03-11 08:26] LABS: INR 1.18 (0.83-1.09)
[2019-03-11 08:43] LABS: ALBUMIN 2.3 g/dl (3.4-5.0); BILIRUBIN,TOTAL 0.2 mg/dL (0.2-1); BLOOD UREA NITROGEN 9.8 mg/dL (7-18); CALCIUM 8.6 mg/dL (8.5-10.1); CREATININE 0.5 mg/dL (0.55-1.3); MAGNESIUM 2.2 mg/dL (1.8-2.4); PHOSPHOROUS 3.3 mg/dL (2.5-4.9); POTASSIUM 4.3 mmol/L (3.5-5.1)
--- NOTE | 2019-03-11 08:43 | PN ---
Teaching Attending Note Name of Resident: Pritesh Gomez ATTENDING PHYSICIAN STATEMENT I saw and evaluated the patient. I reviewed the resident's note and discussed the case with the resident. I agree with the resident's findings and plan as documented. ASSESSMENT AND PLAN: Pt is a 68 y/o M with PMH schizophrenia, MDD, tremors, afib on xarelto, DM, HLD , Anemia, CAD, RLE osteomyelitis diagnosed in 2018, presenting from [facility] for an indeterminate quantiferon and abnormal CXR. CXR was significant for pleural effusions and lung mass. Chest CT was significant for the above as well as mediastinal lymphadenopathy and L adrenal hyperplasia. Ongoing w/u by pulmonary team for r/o TB and malignancy. IR guide biopsy vs bronch being arranged by pulmonary team Also microcytic anemia-- work up for anemia of chronic disease
--- NOTE | 2019-03-11 09:22 | PN ---
Progress Note (short form) - Note Progress Note: Awake and alert in NAD on RA. Dry cough. Still not able to expectorate. Intake & Output 03/08/19 03/09/19 03/10/19 03/11/19 23:59 23:59 23:59 23:59 Intake Total 650 1070 1700 Output Total 975 1450 2320 680 Balance -325 -380 -620 -680 Weight 168 lb 168 lb 14.4 oz 168 lb Last Vital Signs Temp Pulse Resp BP Pulse Ox 98.2 F 96 H 20 95/73 94 L 03/11/19 09:01 03/11/19 09:01 03/11/19 09:01 03/11/19 09:01 03/11/19 08:57 Active Medications Aripiprazole (Abilify) 5 mg PO DAILY [facility] Last Admin: 03/10/19 10:33 Dose: 5 mg Ascorbic Acid (Vitamin C -) 500 mg PO DAILY [facility] Last Admin: 03/10/19 10:30 Dose: 500 mg Benztropine Mesylate (Cogentin -) 0.5 mg PO DAILY [facility] Last Admin: 03/10/19 10:33 Dose: 0.5 mg Calcium Carbonate (Os-Davey 500mg -) 500 mg PO DAILY [facility] Last Admin: 03/10/19 10:31 Dose: 500 mg Cholecalciferol (Vitamin D3 -) 400 unit PO DAILY [facility] Last Admin: 03/10/19 10:31 Dose: 400 unit Diltiazem HCl (Cardizem -) 30 mg PO TID [facility] Last Admin: 03/11/19 06:32 Dose: Not Given Enoxaparin Sodium (Lovenox -) 80 mg SQ Q12H [facility] Last Admin: 03/10/19 07:15 Dose: 80 mg Ferrous Sulfate (Feosol -) 325 mg PO DAILY [facility] Last Admin: 03/10/19 10:30 Dose: 325 mg Furosemide (Lasix -) 20 mg PO DAILY [facility] Last Admin: 03/10/19 10:31 Dose: 20 mg Azithromycin 250 mg/ Dextrose 250 mls @ 250 mls/hr IVPB DAILY [facility] Last Admin: 03/10/19 13:03 Dose: 250 mls/hr Ceftriaxone Sodium 1 gm/ (Dextrose) 50 mls @ 100 mls/hr IVPB DAILY [facility]; Protocol Last Admin: 11/11/19 10:31 Dose: 100 mls/hr Insulin Aspart (Novolog Vial Sliding Scale -) 1 vial SQ ACHS [facility]; Protocol Last Admin: 03/11/19 06:32 Dose: Not Given Lisinopril (Prinivil) 2.5 mg PO DAILY [facility] Last Admin: 03/10/19 10:30 Dose: 2.5 mg Metoprolol Succinate (Toprol Xl -) 100 mg PO BID [facility] Last Admin: 03/10/19 21:46 Dose: 100 mg Constitutional: Yes: No Distress Eyes: Yes: Conjunctiva Clear, EOM Intact HENT: Yes: Atraumatic, Normocephalic Neck: Yes: Supple, Trachea Midline Cardiovascular: Yes: Regular Rate and Rhythm Respiratory: Yes: Cough, Diminished. No: Accessory Muscle Use, Rales, Rhonchi, SOB, SOB on Exertion, Stridor, Tachypnea, Wheezes ...Inspection: Yes: WNL ...Clubbing: No Gastrointestinal: Yes: Normal Bowel Sounds, Soft Renal/: Yes: WNL Musculoskeletal: Yes: WNL Extremities: Yes: WNL Edema: No Peripheral Pulses WNL: Yes Integumentary: Yes: WNL Neurological: Yes: WNL, Alert, Oriented ...Motor Strength: WNL Psychiatric: Yes: WNL, Alert, Oriented Labs: Laboratory Results - last 24 hr 03/10/19 03/10/19 03/11/19 16:25 20:45 06:21 WBC RBC Hgb Hct MCV MCH MCHC RDW Plt Count MPV Retic Count PT with INR INR Sodium Potassium Chloride Carbon Dioxide Anion Gap BUN Creatinine Est GFR (CKD-EPI)AfAm Est GFR (CKD-EPI)NonAf POC Glucometer 119 138 118 Random Glucose Calcium Phosphorus Magnesium Iron TIBC Iron Saturation Unsaturated IBC Ferritin Total Bilirubin AST ALT Alkaline Phosphatase Total Protein Albumin 03/11/19 03/11/19 03/11/19 07:05 07:05 07:05 WBC 8.9 RBC 3.88 L Hgb 9.5 L Hct 30.0 L MCV 77.4 L MCH 24.4 L MCHC 31.5 L RDW 27.6 H Plt Count 306 MPV 7.6 Retic Count 1.80 H D PT with INR INR Sodium 135 L Potassium 4.3 Chloride 100 Carbon Dioxide 31 Anion Gap 3 L BUN 9.8 Creatinine 0.5 L Est GFR (CKD-EPI)AfAm 130.88 Est GFR (CKD-EPI)NonAf 112.92 POC Glucometer Random Glucose 104 Calcium 8.6 Phosphorus 3.3 Magnesium 2.2 Iron 30 L TIBC 207 L Iron Saturation 14 L Unsaturated IBC 177 L Ferritin 251.6 Total Bilirubin 0.2 AST 13 L ALT 14 Alkaline Phosphatase 118 H Total Protein 7.0 Albumin 2.3 L 03/11/19 07:05 WBC RBC Hgb Hct MCV MCH MCHC RDW Plt Count MPV Retic Count PT with INR 14.00 H INR 1.18 H Sodium Potassium Chloride Carbon Dioxide Anion Gap BUN Creatinine Est GFR (CKD-EPI)AfAm Est GFR (CKD-EPI)NonAf POC Glucometer Random Glucose Calcium Phosphorus Magnesium Iron TIBC Iron Saturation Unsaturated IBC Ferritin Total Bilirubin AST ALT Alkaline Phosphatase Total Protein Albumin Problem List - Problems (1) Pleural effusion Code(s): J90 - PLEURAL EFFUSION, NOT ELSEWHERE CLASSIFIED (2) Mediastinal lymphadenopathy Code(s): R59.0 - LOCALIZED ENLARGED LYMPH NODES (3) Mass of upper lobe of right lung Code(s): R91.8 - OTHER NONSPECIFIC ABNORMAL FINDING OF LUNG FIELD (4) 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 Code(s): E11.39 - TYPE 2 DIABETES W OTH DIABETIC OPHTHALMIC COMPLICATION; H43.13 - VITREOUS HEMORRHAGE, BILATERAL (5) Afib Code(s): I48.91 - UNSPECIFIED ATRIAL FIBRILLATION Qualifiers: Atrial fibrillation type: persistent (6) Anemia Code(s): D64.9 - ANEMIA, UNSPECIFIED Qualifiers: Anemia type: unspecified type Qualified Code(s): D64.9 - Anemia, unspecified (7) Diabetes Code(s): E11.9 - TYPE 2 DIABETES MELLITUS WITHOUT COMPLICATIONS (8) Diabetic peripheral vascular disease Code(s): E11.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 (9) HTN (hypertension) Code(s): I10 - ESSENTIAL (PRIMARY) HYPERTENSION Qualifiers: Hypertension type: essential hypertension Qualified Code(s): I10 - Essential (primary) hypertension (10) Schizophrenia Code(s): F20.9 - SCHIZOPHRENIA, UNSPECIFIED Assessment/Plan For Bronchoscopy today at 1:15 PM. Isolation O2 as needed AC being held until tonight Dr Luna Problem List - Problems (1) Pleural effusion Code(s): J90 - PLEURAL EFFUSION, NOT ELSEWHERE CLASSIFIED (2) Mediastinal lymphadenopathy Code(s): R59.0 - LOCALIZED ENLARGED LYMPH NODES (3) Mass of upper lobe of right lung Code(s): R91.8 - OTHER NONSPECIFIC ABNORMAL FINDING OF LUNG FIELD (4) 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 Code(s): E11.39 - TYPE 2 DIABETES W OTH DIABETIC OPHTHALMIC COMPLICATION; H43.13 - VITREOUS HEMORRHAGE, BILATERAL (5) Afib Code(s): I48.91 - UNSPECIFIED ATRIAL FIBRILLATION Qualifiers: Atrial fibrillation type: persistent (6) Anemia Code(s): D64.9 - ANEMIA, UNSPECIFIED Qualifiers: Anemia type: unspecified type Qualified Code(s): D64.9 - Anemia, unspecified (7) Diabetes Code(s): E11.9 - TYPE 2 DIABETES MELLITUS WITHOUT COMPLICATIONS (8) Diabetic peripheral vascular disease Code(s): E11.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 (9) HTN (hypertension) Code(s): I10 - ESSENTIAL (PRIMARY) HYPERTENSION Qualifiers: Hypertension type: essential hypertension Qualified Code(s): I10 - Essential (primary) hypertension (10) Schizophrenia Code(s): F20.9 - SCHIZOPHRENIA, UNSPECIFIED
[2019-03-11] MEDS ORDERED: DEXTROSE 5%-WATER - 50 ML IVPB ONE (09:37)
[2019-03-11] MEDS ORDERED: cefTRIAXone SODIUM 1 GM VIAL ONE (09:37)
[2019-03-11] MEDS: ARIPiprazole 5 MG TABLET (FP) PO SCH (10:10)
[2019-03-11] MEDS: FERROUS SO4 325 MG TABLET (FP) PO SCH (10:10)
[2019-03-11] MEDS: ASCORBIC ACID 500 MG TABLET (FP) PO SCH (10:10)
[2019-03-11] MEDS: BENZTROPINE MESYLATE 0.5 MG TABLET (FP) PO SCH (10:10)
[2019-03-11] MEDS: FUROSEMIDE 20 MG TABLET (FP) PO SCH (10:10)
[2019-03-11] MEDS: CALCIUM (OYSTER SHELL) 500 MG TABLET (FP) PO SCH (10:10)
[2019-03-11] MEDS: CHOLECALCIFEROL (VIT D3) 400 UNIT (10 MCG) TABLET PO SCH (10:11)
[2019-03-11] MEDS: LISINOPRIL 5 MG TABLET (FP) PO SCH (10:12)
[2019-03-11] MEDS: CEFTRIAXONE 1 GM in DEXTROSE 5%-WATER - 50 ML IVPB SCH (10:13)
[2019-03-11] MEDS: AZITHROMYCIN IVPB 250 MG in DEXTROSE 5%-WATER - 250 ML IVPB SCH (10:36)
--- NOTE | 2019-03-11 11:27 | PN ---
Progress Note, Physician History of Present Illness: patient stable no new issues for bronch today - Current Medication List Current Medications: Active Medications Aripiprazole (Abilify) 5 mg PO DAILY [facility] Last Admin: 03/11/19 10:10 Dose: Not Given Ascorbic Acid (Vitamin C -) 500 mg PO DAILY [facility] Last Admin: 03/11/19 10:10 Dose: Not Given Benztropine Mesylate (Cogentin -) 0.5 mg PO DAILY [facility] Last Admin: 03/11/19 10:10 Dose: Not Given Calcium Carbonate (Os-Advey 500mg -) 500 mg PO DAILY [facility] Last Admin: 03/11/19 10:10 Dose: Not Given Cholecalciferol (Vitamin D3 -) 400 unit PO DAILY [facility] Last Admin: 03/11/19 10:11 Dose: Not Given Diltiazem HCl (Cardizem -) 30 mg PO TID [facility] Last Admin: 03/11/19 06:32 Dose: Not Given Enoxaparin Sodium (Lovenox -) 80 mg SQ Q12H [facility] Last Admin: 03/10/19 07:15 Dose: 80 mg Ferrous Sulfate (Feosol -) 325 mg PO DAILY [facility] Last Admin: 03/11/19 10:10 Dose: Not Given Furosemide (Lasix -) 20 mg PO DAILY [facility] Last Admin: 03/11/19 10:10 Dose: Not Given Azithromycin 250 mg/ Dextrose 250 mls @ 250 mls/hr IVPB DAILY [facility] Last Admin: 03/11/19 10:36 Dose: 250 mls/hr Ceftriaxone Sodium 1 gm/ (Dextrose) 50 mls @ 100 mls/hr IVPB DAILY [facility]; Protocol Last Admin: 03/11/19 10:13 Dose: 100 mls/hr Insulin Aspart (Novolog Vial Sliding Scale -) 1 vial SQ ACHS [facility]; Protocol Last Admin: 03/11/19 06:32 Dose: Not Given Lisinopril (Prinivil) 2.5 mg PO DAILY [facility] Last Admin: 03/11/19 10:12 Dose: 2.5 mg Metoprolol Succinate (Toprol Xl -) 100 mg PO BID [facility] Last Admin: 03/11/19 10:12 Dose: 100 mg - Objective Vital Signs: Vital Signs Temperature 98.2 F 03/11/19 09:01 Pulse Rate 96 H 03/11/19 09:01 Respiratory Rate 20 03/11/19 09:01 Blood Pressure 95/73 03/11/19 09:01 O2 Sat by Pulse Oximetry (%) 94 L 03/11/19 08:57 Constitutional: Yes: No Distress, Calm Cardiovascular: Yes: S1, S2 Respiratory: Yes: On Nasal O2, Poor Air Entry Gastrointestinal: Yes: Normal Bowel Sounds, Soft Musculoskeletal: Yes: WNL Extremities: Yes: WNL Neurological: Yes: Alert, Oriented Psychiatric: Yes: Alert Labs: CBC, BMP 03/11/19 07:05 03/11/19 07:05 INR, PTT INR 1.18 (0.83-1.09) H 03/11/19 07:05 Assessment/Plan Problem List - Problems (1) CAD (coronary artery disease) Code(s): I25.10 - ATHSCL HEART DISEASE OF [place] CORONARY ARTERY W/O ANG PCTRS (2) Mass of upper lobe of right lung Code(s): R91.8 - OTHER NONSPECIFIC ABNORMAL FINDING OF LUNG FIELD (3) Mediastinal lymphadenopathy Code(s): R59.0 - LOCALIZED ENLARGED LYMPH NODES (4) Pleural effusion Code(s): J90 - PLEURAL EFFUSION, NOT ELSEWHERE CLASSIFIED (5) 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 male with PMH of DM, AFIB, CAD, HLD, anemia, Rt foot OM, and schizophrenia sent from [facility] due to abnormal CXR and indeterminate Quantiferon result and dry cough RUL/apical lung lesion - erosion into T3/rib r/o TB/malignancy b/l pleural effusions mediastinal/hilar KAYLYN DM CAD AFIB Anemia Schizophrenia plan for bronch rest as per the team
[2019-03-11] MEDS ORDERED: PROPOFOL 20 ML ONE ×2 (13:25→13:43)
[2019-03-11] MEDS ORDERED: LIDOCAINE HCL 1%, 10 MG/ML (20ML VIAL) ONE (13:26)
[2019-03-11] MEDS ORDERED: LIDOCAINE HCL/PF 2% SDV 5ML VIAL ONE (13:42)
[2019-03-11] MEDS ORDERED: SUCCINYLCHOLINE CHLORIDE 200 MG/10 ML SYRINGE ONE (13:43)
[2019-03-11] MEDS ORDERED: MIDAZOLAM HCL 2 MG/2 ML SINGLE DOSE VIAL ONE (13:43)
[2019-03-11] MEDS ORDERED: SODIUM CHLORIDE 1,000 ML IV SCH ×2 (13:45→16:28)
[2019-03-11] MEDS ORDERED: ePHEDrine SULFATE 50 MG/1 ML AMPULE ONE (14:14)
--- NOTE | 2019-03-11 14:53 | PROC ---
Procedure Note Procedure: BRONCHOSCOPY NOTE After discussing the risks and benefits of the procedure, informed consent was obtained. Pt was placed under general anesthesia and intubated with size 8.0 ETT by anesthesia. [employer] video bronchoscope was passed via the ETT and the airways were examined down to the subsegmental level. The elena was sharp. There were no endobronchial lesions noted in the left lung. In the right main bronchus at the level of the RUL take off, there was a near obstructing lesion that appeared necrotic peripherally. Multiple forcep biopsies were taken from viable areas. There was some bleeding post biopsies but observed until hemostasis achieved. Once the lesion was debrided, the scope was able to pass distally, no other endobronchial lesions noted. Bronchoscope was then withdrawn and the procedure was terminated. No immediate complications. Pre-op Dx: lung mass Post-op Dx: r/o lung cancer Plan: - f/u pathology and cytology - f/u washings for culture/AFB/fungus Raj Mayer MD
[2019-03-11] MEDS: ENOXAPARIN NA (PORCINE) 80 MG/0.8 ML DISP.SYRIN SQ SCH (17:19)
[2019-03-11] MEDS ORDERED: INSULIN (NOVOLOG) ASPART 100 UNITS/ML 10ML VIAL ONE (20:57)
[2019-03-11] MEDS ORDERED: PT OWN MED DRAWER 7, Y5N ONE (20:59)
--- NOTE | 2019-03-11 21:09 | PN ---
Physical Exam: SUBJECTIVE: Patient seen and examined at bedside. No new complaints OBJECTIVE: Vital Signs Period Temp Pulse Resp BP Sys/Stock Pulse Ox Last 24 Hr 98.0 F-99 F 84-103 14-95 88-110/64-80 94-100 Gen: NAD, AAO x 3 HEENT: NCAT, EOMI Neck: no jvd Cardio: irregular, no mrg, s1s2 normal Pulm: coarse breath sounds Abd: soft, nontender, nondistended, surgical site scars at [employer]mil[employer] Laboratory Results - last 24 hr 03/11/19 03/11/19 03/11/19 06:21 07:05 07:05 WBC RBC Hgb Hct MCV MCH MCHC RDW Plt Count MPV Retic Count 1.80 H D PT with INR INR Sodium 135 L Potassium 4.3 Chloride 100 Carbon Dioxide 31 Anion Gap 3 L BUN 9.8 Creatinine 0.5 L Est GFR (CKD-EPI)AfAm 130.88 Est GFR (CKD-EPI)NonAf 112.92 POC Glucometer 118 Random Glucose 104 Calcium 8.6 Phosphorus 3.3 Magnesium 2.2 Iron 30 L TIBC 207 L Iron Saturation 14 L Unsaturated IBC 177 L Ferritin 251.6 Total Bilirubin 0.2 AST 13 L ALT 14 Alkaline Phosphatase 118 H Total Protein 7.0 Albumin 2.3 L 03/11/19 03/11/19 03/11/19 07:05 07:05 11:39 WBC 8.9 RBC 3.88 L Hgb 9.5 L Hct 30.0 L MCV 77.4 L MCH 24.4 L MCHC 31.5 L RDW 27.6 H Plt Count 306 MPV 7.6 Retic Count PT with INR 14.00 H INR 1.18 H Sodium Potassium Chloride Carbon Dioxide Anion Gap BUN Creatinine Est GFR (CKD-EPI)AfAm Est GFR (CKD-EPI)NonAf POC Glucometer 141 Random Glucose Calcium Phosphorus Magnesium Iron TIBC Iron Saturation Unsaturated IBC Ferritin Total Bilirubin AST ALT Alkaline Phosphatase Total Protein Albumin 03/11/19 16:50 WBC RBC Hgb Hct MCV MCH MCHC RDW Plt Count MPV Retic Count PT with INR INR Sodium Potassium Chloride Carbon Dioxide Anion Gap BUN Creatinine Est GFR (CKD-EPI)AfAm Est GFR (CKD-EPI)NonAf POC Glucometer 101 Random Glucose Calcium Phosphorus Magnesium Iron TIBC Iron Saturation Unsaturated IBC Ferritin Total Bilirubin AST ALT Alkaline Phosphatase Total Protein Albumin Active Medications Generic Name Dose Route Start Last Admin Trade Name Freq PRN Reason Stop Dose Admin Aripiprazole 5 mg 03/12/19 10:00 Abilify PO DAILY [facility] Ascorbic Acid 500 mg 03/12/19 10:00 Vitamin C - PO DAILY [facility] Benztropine Mesylate 0.5 mg 03/12/19 10:00 Cogentin - PO DAILY [facility] Calcium Carbonate 500 mg 03/12/19 10:00 Os-Davey 500mg - PO DAILY [facility] Cholecalciferol 400 unit 03/12/19 10:00 Vitamin D3 - PO DAILY [facility] Diltiazem HCl 30 mg 03/11/19 22:00 Cardizem - PO TID [facility] Enoxaparin Sodium 80 mg 03/11/19 18:00 03/11/19 17:19 Lovenox - SQ Not Given Q12H [facility] Ferrous Sulfate 325 mg 03/12/19 10:00 Feosol - PO DAILY [facility] Furosemide 20 mg 03/12/19 10:00 Lasix - PO DAILY [facility] Azithromycin 250 mg/ Dextrose 250 mls @ 250 mls/hr 03/12/19 10:00 IVPB DAILY [facility] Ceftriaxone Sodium 1 gm/ 50 mls @ 100 mls/hr 03/12/19 10:00 Dextrose IVPB DAILY [facility] Protocol Sodium Chloride 1,000 mls @ 100 mls/hr 03/11/19 16:28 03/11/19 17:04 Normal Saline - IV Not Given ASDIR [facility] Insulin Aspart 1 vial 03/11/19 16:30 03/11/19 17:04 Novolog Vial Sliding Scale - SQ Not Given ACHS [facility] Protocol Lisinopril 2.5 mg 03/12/19 10:00 Prinivil PO DAILY [facility] Metoprolol Succinate 100 mg 03/11/19 22:00 Toprol Xl - PO BID [facility] ASSESSMENT/PLAN: Pt is a 68 y/o M with PMH schizophrenia, MDD, tremors, afib on xarelto, DM, HLD , Anemia, CAD, RLE osteomyelitis diagnosed in 2018, presenting from [facility] for an indeterminate quantiferon and abnormal CXR. CXR was significant for pleural effusions and lung mass. Chest CT was significant for the above as well as mediastinal lymphadenopathy and L adrenal hyperplasia. Heme/Onc was called to evaluate for anemia and lung mass. microcytic hypochromic iron deficiency Anemia -recommend Fe supplement Lung mass -Bronch done today -f/u path, cyto, culture, afb Visit type - Emergency Visit Emergency Visit: No - New Patient This patient is new to me today: No - Critical Care Critical Care patient: No ATTENDING PHYSICIAN STATEMENT I saw and evaluated the patient. I reviewed the resident's note and discussed the case with the resident. I agree with the resident's findings and plan as documented. SUBJECTIVE: OBJECTIVE: ASSESSMENT AND PLAN:
[2019-03-12] MEDS ORDERED: PT OWN MED DRAWER 7, Y5N ONE ×3 (06:17→21:02)
[2019-03-12] MEDS: ENOXAPARIN NA (PORCINE) 80 MG/0.8 ML DISP.SYRIN SQ SCH ×2 (06:40→17:40)
[2019-03-12] MEDS: dilTIAZem HCL 30 MG TABLET (FP) PO SCH ×3 (06:41→22:13)
[2019-03-12] MEDS: INSULIN SLIDING SCALE (NOVOLOG) 1 VIAL SQ SCH ×4 (06:43→22:14)
[2019-03-12 08:30] LABS: HEMATOCRIT 29.3 % (35.4-49); HEMOGLOBIN 9.3 GM/dL (11.7-16.9); MCH 24.9 pg (25.7-33.7); MCHC 31.9 g/dl (32.0-35.9); MEAN CELL VOLUME 78.1 fl (80-96); MEAN PLT VOLUME 7.7 fl (7.5-11.1); PLATELET COUNT 285 K/MM3 (134-434); RBC 3.75 M/mm3 (4.00-5.60); WHITE BLOOD COUNT 10.3 K/mm3 (4.0-10.0)
[2019-03-12 09:09] LABS: BLOOD UREA NITROGEN 12.7 mg/dL (7-18); CALCIUM 8.5 mg/dL (8.5-10.1); CREATININE 0.6 mg/dL (0.55-1.3); POTASSIUM 4.7 mmol/L (3.5-5.1)
[2019-03-12] MEDS ORDERED: CEFTRIAXONE 1 GM in DEXTROSE 5%-WATER - 50 ML IVPB SCH (10:00)
[2019-03-12] MEDS ORDERED: AZITHROMYCIN IVPB 250 MG in DEXTROSE 5%-WATER - 250 ML IVPB SCH (10:00)
--- NOTE | 2019-03-12 10:31 | PN ---
Progress Note, Physician History of Present Illness: patient stable no complaints - Current Medication List Current Medications: Active Medications Aripiprazole (Abilify) 5 mg PO DAILY [facility] Ascorbic Acid (Vitamin C -) 500 mg PO DAILY [facility] Benztropine Mesylate (Cogentin -) 0.5 mg PO DAILY [facility] Calcium Carbonate (Os-Davey 500mg -) 500 mg PO DAILY [facility] Cholecalciferol (Vitamin D3 -) 400 unit PO DAILY [facility] Diltiazem HCl (Cardizem -) 30 mg PO TID [facility] Last Admin: 03/12/19 06:41 Dose: 30 mg Enoxaparin Sodium (Lovenox -) 80 mg SQ Q12H [facility] Last Admin: 03/12/19 06:40 Dose: 80 mg Ferrous Sulfate (Feosol -) 325 mg PO DAILY [facility] Furosemide (Lasix -) 20 mg PO DAILY [facility] Azithromycin 250 mg/ Dextrose 250 mls @ 250 mls/hr IVPB DAILY [facility] Ceftriaxone Sodium 1 gm/ (Dextrose) 50 mls @ 100 mls/hr IVPB DAILY [facility]; Protocol Insulin Aspart (Novolog Vial Sliding Scale -) 1 vial SQ ACHS [facility]; Protocol Last Admin: 03/12/19 06:43 Dose: Not Given Lisinopril (Prinivil) 2.5 mg PO DAILY [facility] Metoprolol Succinate (Toprol Xl -) 100 mg PO BID [facility] Last Admin: 03/11/19 21:27 Dose: 100 mg - Objective Vital Signs: Vital Signs Temperature 98.9 F 03/12/19 06:00 Pulse Rate 85 03/12/19 06:00 Respiratory Rate 20 03/12/19 06:00 Blood Pressure 94/55 L 03/12/19 06:00 O2 Sat by Pulse Oximetry (%) 96 03/11/19 21:00 Constitutional: Yes: No Distress, Calm Cardiovascular: Yes: S1, S2 Respiratory: Yes: Regular, CTA Bilaterally Gastrointestinal: Yes: Normal Bowel Sounds, Soft Musculoskeletal: Yes: WNL Extremities: Yes: WNL Neurological: Yes: Alert, Oriented Psychiatric: Yes: Alert, Oriented Labs: CBC, BMP 03/12/19 07:15 03/12/19 07:15 INR, PTT INR 1.18 (0.83-1.09) H 03/11/19 07:05 Assessment/Plan Problem List - Problems (1) CAD (coronary artery disease) Code(s): I25.10 - ATHSCL HEART DISEASE OF [place] CORONARY ARTERY W/O ANG PCTRS (2) Mass of upper lobe of right lung Code(s): R91.8 - OTHER NONSPECIFIC ABNORMAL FINDING OF LUNG FIELD (3) Mediastinal lymphadenopathy Code(s): R59.0 - LOCALIZED ENLARGED LYMPH NODES (4) Pleural effusion Code(s): J90 - PLEURAL EFFUSION, NOT ELSEWHERE CLASSIFIED (5) 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 male with PMH of DM, AFIB, CAD, HLD, anemia, Rt foot OM, and schizophrenia sent from [facility] due to abnormal CXR and indeterminate Quantiferon result and dry cough RUL/apical lung lesion - erosion into T3/rib r/o TB/malignancy b/l pleural effusions mediastinal/hilar KAYLYN DM CAD AFIB Anemia Schizophrenia plan continue current mgmt await for all results will d/w the team rest as per the team
[2019-03-12] MEDS ORDERED: DEXTROSE 5%-WATER - 50 ML IVPB ONE (11:31)
[2019-03-12] MEDS ORDERED: cefTRIAXone SODIUM 1 GM VIAL ONE (11:31)
[2019-03-12] MEDS: CHOLECALCIFEROL (VIT D3) 400 UNIT (10 MCG) TABLET PO SCH (11:41)
[2019-03-12] MEDS: CALCIUM (OYSTER SHELL) 500 MG TABLET (FP) PO SCH (11:41)
[2019-03-12] MEDS: LISINOPRIL 5 MG TABLET (FP) PO SCH (11:41)
[2019-03-12] MEDS: FERROUS SO4 325 MG TABLET (FP) PO SCH (11:41)
[2019-03-12] MEDS: ARIPiprazole 5 MG TABLET (FP) PO SCH (11:41)
[2019-03-12] MEDS: FUROSEMIDE 20 MG TABLET (FP) PO SCH (11:42)
[2019-03-12] MEDS: ASCORBIC ACID 500 MG TABLET (FP) PO SCH (11:44)
[2019-03-12] MEDS: BENZTROPINE MESYLATE 0.5 MG TABLET (FP) PO SCH (11:44)
--- NOTE | 2019-03-12 15:36 | PN ---
Progress Note (short form) - Note Progress Note: PULMONARY s/p bronchoscopy showing R mainstem mass. Denies shortness of breath or chest pain. Vital Signs Period Temp Pulse Resp BP Sys/Stock Pulse Ox Last 24 Hr 98.4 F-98.9 F 84-112 18-95 94-118/55-80 96-100 Gen: NAD at rest Heart: RRR Lung: decreased breath sounds at the bases Abd: soft, nontender Ext: no edema CBC, BMP 03/12/19 07:15 03/12/19 07:15 Active Medications Aripiprazole (Abilify) 5 mg PO DAILY [facility] Last Admin: 03/12/19 11:41 Dose: 5 mg Ascorbic Acid (Vitamin C -) 500 mg PO DAILY [facility] Last Admin: 03/12/19 11:44 Dose: 500 mg Benztropine Mesylate (Cogentin -) 0.5 mg PO DAILY [facility] Last Admin: 03/12/19 11:44 Dose: 0.5 mg Calcium Carbonate (Os-Davey 500mg -) 500 mg PO DAILY [facility] Last Admin: 03/12/19 11:41 Dose: 500 mg Cholecalciferol (Vitamin D3 -) 400 unit PO DAILY [facility] Last Admin: 03/12/19 11:41 Dose: 400 unit Diltiazem HCl (Cardizem -) 30 mg PO TID [facility] Last Admin: 03/12/19 14:36 Dose: 30 mg Enoxaparin Sodium (Lovenox -) 80 mg SQ Q12H [facility] Last Admin: 03/12/19 06:40 Dose: 80 mg Ferrous Sulfate (Feosol -) 325 mg PO DAILY [facility] Last Admin: 03/12/19 11:41 Dose: 325 mg Furosemide (Lasix -) 20 mg PO DAILY [facility] Last Admin: 03/12/19 11:42 Dose: 20 mg Azithromycin 250 mg/ Dextrose 250 mls @ 250 mls/hr IVPB DAILY [facility] Last Admin: 03/12/19 14:35 Dose: 250 mls/hr Ceftriaxone Sodium 1 gm/ (Dextrose) 50 mls @ 100 mls/hr IVPB DAILY [facility]; Protocol Last Admin: 03/12/19 11:41 Dose: 100 mls/hr Insulin Aspart (Novolog Vial Sliding Scale -) 1 vial SQ ACHS [facility]; Protocol Last Admin: 03/12/19 12:01 Dose: Not Given Lisinopril (Prinivil) 2.5 mg PO DAILY [facility] Last Admin: 03/12/19 11:41 Dose: 2.5 mg Metoprolol Succinate (Toprol Xl -) 100 mg PO BID [facility] Last Admin: 03/12/19 11:42 Dose: 100 mg A/P Lung Mass likely malignant Mediastinal Lymphadenopathy Atrial Fibrillation CAD HTN DM Hyperlipidemia Schizophrenia Anemia - continue antibiotics per ID - f/u pathology - rate control - continue anticoagulation
--- NOTE | 2019-03-12 16:35 | PN ---
Teaching Attending Note Name of Resident: Pritesh Gomez ATTENDING PHYSICIAN STATEMENT I saw and evaluated the patient. I reviewed the resident's note and discussed the case with the resident. I agree with the resident's findings and plan as documented. SUBJECTIVE: Patient seen and examined Underwent bronchoscopy Found to have obstructing RUL mass. Biopsies obtained Await results Last Vital Signs Temp Pulse Resp BP Pulse Ox 98.9 F 104 H 18 118/65 96 03/12/19 06:00 03/12/19 14:51 03/12/19 14:51 03/12/19 14:51 03/11/19 21:00 LUNGS - CLEAR COR ATRIAL FIB SOFT ABD EXT-NEG CBC, BMP 03/12/19 07:15 03/12/19 07:15 Current Medications Generic Name Dose Route Start Last Admin Trade Name Freq PRN Reason Stop Dose Admin Aripiprazole 5 mg 03/12/19 10:00 03/12/19 11:41 Abilify PO 5 mg DAILY JONATHON Administration Ascorbic Acid 500 mg 03/12/19 10:00 03/12/19 11:44 Vitamin C - PO 500 mg DAILY JONATHON Administration Benztropine Mesylate 0.5 mg 03/12/19 10:00 03/12/19 11:44 Cogentin - PO 0.5 mg DAILY JONATHON Administration Calcium Carbonate 500 mg 03/12/19 10:00 03/12/19 11:41 Os-Davey 500mg - PO 500 mg DAILY JONATHON Administration Cholecalciferol 400 unit 03/12/19 10:00 03/12/19 11:41 Vitamin D3 - PO 400 unit DAILY JONATHON Administration Diltiazem HCl 30 mg 03/11/19 22:00 03/12/19 14:36 Cardizem - PO 30 mg TID JONATHON Administration Enoxaparin Sodium 80 mg 03/11/19 18:00 03/12/19 06:40 Lovenox - SQ 80 mg Q12H JONATHON Administration Ferrous Sulfate 325 mg 03/12/19 10:00 03/12/19 11:41 Feosol - PO 325 mg DAILY JONATHON Administration Furosemide 20 mg 03/12/19 10:00 03/12/19 11:42 Lasix - PO 20 mg DAILY JONATHON Administration Azithromycin 250 mg/ Dextrose 250 mls @ 250 mls/hr 03/12/19 10:00 03/12/19 14 :35 IVPB 250 mls/hr DAILY JONATHON Administration Ceftriaxone Sodium 1 gm/ 50 mls @ 100 mls/hr 03/12/19 10:00 03/12/19 11:41 Dextrose IVPB 100 mls/hr DAILY JONATHON Administration Protocol Insulin Aspart 1 vial 03/11/19 16:30 03/12/19 12:01 Novolog Vial Sliding Scale - SQ Not Given ACHS JONATHON Protocol Lisinopril 2.5 mg 03/12/19 10:00 03/12/19 11:41 Prinivil PO 2.5 mg DAILY JONATHON Administration Metoprolol Succinate 100 mg 03/11/19 22:00 03/12/19 11:42 Toprol Xl - PO 100 mg BID JONATHON Administration OBJECTIVE: IMPRESSION: LUNG MASS- AWAIT PATH ANEMIA FE++ STUDIES COMPATIBLE WITH CHRONIC DISEASE - CANNOT EXCLUDE COMPONENT OF FE++ DEFICIENCY. ASSESSMENT AND PLAN:
--- NOTE | 2019-03-12 17:11 | PN ---
Progress Note (short form) - Note Progress Note: HPI: No acute events overnight. No complaints today. Still with dry cough and unable to expectorate Vital Signs Temperature 98.9 F 03/12/19 06:00 Pulse Rate 104 H 03/12/19 14:51 Respiratory Rate 18 03/12/19 14:51 Blood Pressure 118/65 03/12/19 14:51 O2 Sat by Pulse Oximetry (%) 98 03/12/19 09:00 PE: Gen: NAD, awake, alert, oriented x3 HEENT: NC/AT< MARCELA, sclera anicteric, MMM, LUNG: R anterior breath sounds diminished; good inspiratory effort, no rales or wheezes CARD: RRR no murmurs appreciated ABD: Soft, Nt/ND normoactive BS, no caput medusa, no guarding, no nodularity with liver palpation EXT: no edema strong pulses b/l Microbiology 03/07/19 21:00 Urine For Antigen Detection Legionella Antigen - Final 03/07/19 21:00 Urine For Antigen Detection Streptococcus pneumoniae Antigen (M - Final Active Medications Aripiprazole (Abilify) 5 mg PO DAILY [facility] Last Admin: 03/12/19 11:41 Dose: 5 mg Ascorbic Acid (Vitamin C -) 500 mg PO DAILY [facility] Last Admin: 03/12/19 11:44 Dose: 500 mg Benztropine Mesylate (Cogentin -) 0.5 mg PO DAILY [facility] Last Admin: 03/12/19 11:44 Dose: 0.5 mg Calcium Carbonate (Os-Davey 500mg -) 500 mg PO DAILY [facility] Last Admin: 03/12/19 11:41 Dose: 500 mg Cholecalciferol (Vitamin D3 -) 400 unit PO DAILY [facility] Last Admin: 03/12/19 11:41 Dose: 400 unit Diltiazem HCl (Cardizem -) 30 mg PO TID [facility] Last Admin: 03/12/19 14:36 Dose: 30 mg Enoxaparin Sodium (Lovenox -) 80 mg SQ Q12H [facility] Last Admin: 03/12/19 06:40 Dose: 80 mg Ferrous Sulfate (Feosol -) 325 mg PO DAILY [facility] Last Admin: 03/12/19 11:41 Dose: 325 mg Furosemide (Lasix -) 20 mg PO DAILY [facility] Last Admin: 03/12/19 11:42 Dose: 20 mg Insulin Aspart (Novolog Vial Sliding Scale -) 1 vial SQ ACHS [facility]; Protocol Last Admin: 03/12/19 12:01 Dose: Not Given Lisinopril (Prinivil) 2.5 mg PO DAILY [facility] Last Admin: 03/12/19 11:41 Dose: 2.5 mg Metoprolol Succinate (Toprol Xl -) 100 mg PO BID [facility] Last Admin: 03/12/19 11:42 Dose: 100 mg Assessment and Plan: Right upper lobe mass Mediastinal lymphadenopathy Iron deficient anemia Type 2 DM Atrial fibrillation Hx of HTN Schizophrenia history Hx of HLD Hx of CAD without stents --Biopsy results for RUL obstructing mass pending --? cultures pending --Will contact microbiology/lab regarding status of samples --Can discontinue antibiotics at this time --Will continue on Lovenox for PPX due to suspicion of malignancy --Appreciate all cardiology consultants recommendations --Afib currently well-controlled --Continue Toprol XL 100mg BID PO --Continue Cardizem 30mg TID PO --Continue Abilify for behaviour modification --Ferrous Sulfate 325mg PO qdaily for iron deficiency --Likely component of chronic disease --H/H remains stable; monitor for bleeding FEN: Fluids: none electrolyte abnormalities: Awaiting morning labs Nutrition: NPO; can resume diabetic/sodium after procedure PPX: DVT - Resume Lovenox GI - Not indicated Dispo: Biopsy results; monitor M/S Case discussed with Dr. Paco Alberto, DO - IM PGY-3 <Justin Alberto - Last Filed: 03/12/19 17:06> - Note Progress Note: Seen and examined; please see resident note for further discussion. Agree with their note including assessment and plan as outlined aside from as supplemented myself. Independently reviewed and verified all [place] historical and PE findings as well as labs and imaging. Discussed at length with resident and consulting services. Aside from above no overnight events indicated. No worsening SOB or secretions. Bronch with bx tomorrow; pending heme onc. Continue on abx for pna-?post- obstructive component. Hasn't been able to make sputum for cultures. There has been no QTF done. 10 sys ROS done and negative aside from HPI VS, labs, imaging reviewed NAD AAO resting in bed NC AT EOMI PERRLA RRR s1/2 Lungs CTAB, w/ sym exp NT ND +BS CN2-12 wnl, no fnd Normal mood, appropriate behavior No new rashes or skin breakdown noted Trachea midline without lymphadenopathy Independently reviewed images for initial CT. Echo reviewed; biatrial enlargement with mod MV disease noted but non- hemodynamically sig. Low normal LVEF. A/P: Patient presents for lung mass and is pending bronchoscopy with biopsy; post procedure CXR without initial issues. Pending biopsy results to determine treatment course and discussion with oncology team regarding this. I discussed with CM regarding placement. Lung Mass (Followup pathology; discussed consent with Dr. Sharma. Will need ultimate plan per heme onc with tissue pathology. Overall, the patient has questionable capacity to accept or refuse treatment and should he have the need for ongoing oncologic care this may require ethics consultation and evaluation. Strong smoking history noted). 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 Restarted AC) History of diastolic dysfunction (Appears euvolemic at this juncture) History nonobstructing CAD (Noted historical findings, no current sx. No wma on echo and no new ischemic changes on EKG). Chronic iron deficiency anemia with likely component of Anemia of Chronic Disease (Noted iron studies and red cell indices; start PO iron supplementation. Will discuss with heme prior to DC. Unaware of indications for IV iron at this time). Full Code Will need to discuss logistics of ongoing care likely with CW/CM/Ethics given his underlying mental pathology and potential for ongoing oncologic care needs once tissue diagnosis is available. <Miles Antonio - Last Filed: 03/14/19 08:08>
[2019-03-13] MEDS: dilTIAZem HCL 30 MG TABLET (FP) PO SCH ×3 (05:57→22:21)
[2019-03-13] MEDS: ENOXAPARIN NA (PORCINE) 80 MG/0.8 ML DISP.SYRIN SQ SCH ×2 (05:58→18:59)
[2019-03-13] MEDS: INSULIN SLIDING SCALE (NOVOLOG) 1 VIAL SQ SCH ×4 (06:01→22:21)
--- NOTE | 2019-03-13 09:04 | PN ---
Progress Note, Physician History of Present Illness: stable no new issues bronch finding noted lung mass probably malignant - Current Medication List Current Medications: Active Medications Aripiprazole (Abilify) 5 mg PO DAILY [facility] Last Admin: 03/12/19 11:41 Dose: 5 mg Ascorbic Acid (Vitamin C -) 500 mg PO DAILY [facility] Last Admin: 03/12/19 11:44 Dose: 500 mg Benztropine Mesylate (Cogentin -) 0.5 mg PO DAILY [facility] Last Admin: 03/12/19 11:44 Dose: 0.5 mg Calcium Carbonate (Os-Davey 500mg -) 500 mg PO DAILY [facility] Last Admin: 03/12/19 11:41 Dose: 500 mg Cholecalciferol (Vitamin D3 -) 400 unit PO DAILY [facility] Last Admin: 03/12/19 11:41 Dose: 400 unit Diltiazem HCl (Cardizem -) 30 mg PO TID [facility] Last Admin: 03/13/19 05:57 Dose: 30 mg Enoxaparin Sodium (Lovenox -) 80 mg SQ Q12H [facility] Last Admin: 03/13/19 05:58 Dose: 80 mg Ferrous Sulfate (Feosol -) 325 mg PO DAILY [facility] Last Admin: 03/12/19 11:41 Dose: 325 mg Furosemide (Lasix -) 20 mg PO DAILY [facility] Last Admin: 03/12/19 11:42 Dose: 20 mg Insulin Aspart (Novolog Vial Sliding Scale -) 1 vial SQ ACHS [facility]; Protocol Last Admin: 03/13/19 06:01 Dose: Not Given Lisinopril (Prinivil) 2.5 mg PO DAILY [facility] Last Admin: 03/12/19 11:41 Dose: 2.5 mg Metoprolol Succinate (Toprol Xl -) 100 mg PO BID [facility] Last Admin: 03/12/19 22:13 Dose: 100 mg - Objective Vital Signs: Vital Signs Temperature 97.8 F 03/13/19 06:00 Pulse Rate 86 03/13/19 06:00 Respiratory Rate 20 03/13/19 06:00 Blood Pressure 102/68 03/13/19 06:00 O2 Sat by Pulse Oximetry (%) 98 03/12/19 21:00 Constitutional: Yes: No Distress, Calm Cardiovascular: Yes: S1, S2 Respiratory: Yes: Regular, CTA Bilaterally Gastrointestinal: Yes: Normal Bowel Sounds, Soft Musculoskeletal: Yes: WNL Extremities: Yes: WNL Neurological: Yes: Alert, Oriented Psychiatric: Yes: Alert, Oriented Labs: CBC, BMP 03/12/19 07:15 03/12/19 07:15 INR, PTT INR 1.18 (0.83-1.09) H 03/11/19 07:05 Assessment/Plan Problem List - Problems (1) CAD (coronary artery disease) Code(s): I25.10 - ATHSCL HEART DISEASE OF [place] CORONARY ARTERY W/O ANG PCTRS (2) Mass of upper lobe of right lung Code(s): R91.8 - OTHER NONSPECIFIC ABNORMAL FINDING OF LUNG FIELD (3) Mediastinal lymphadenopathy Code(s): R59.0 - LOCALIZED ENLARGED LYMPH NODES (4) Pleural effusion Code(s): J90 - PLEURAL EFFUSION, NOT ELSEWHERE CLASSIFIED (5) 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 male with PMH of DM, AFIB, CAD, HLD, anemia, Rt foot OM, and schizophrenia sent from [facility] due to abnormal CXR and indeterminate Quantiferon result and dry cough RUL/apical lung lesion - erosion into T3/rib r/o TB/malignancy b/l pleural effusions mediastinal/hilar KAYLYN DM CAD AFIB Anemia Schizophrenia plan continue current mgmt await for all results await for path rest as per the team
[2019-03-13 09:08] LABS: HEMATOCRIT 29.9 % (35.4-49); HEMOGLOBIN 9.5 GM/dL (11.7-16.9); MCH 24.8 pg (25.7-33.7); MEAN CELL VOLUME 77.6 fl (80-96); MEAN PLT VOLUME 7.9 fl (7.5-11.1); PLATELET COUNT 279 K/MM3 (134-434); RBC 3.85 M/mm3 (4.00-5.60); RDW 27.6 % (11.9-15.9); WHITE BLOOD COUNT 9.1 K/mm3 (4.0-10.0)
[2019-03-13 09:48] LABS: CALCIUM 8.3 mg/dL (8.5-10.1); CREATININE 0.6 mg/dL (0.55-1.3); POTASSIUM 4.4 mmol/L (3.5-5.1)
[2019-03-13] MEDS ORDERED: PT OWN MED DRAWER 7, Y5N ONE ×2 (10:44→13:40)
[2019-03-13] MEDS: ARIPiprazole 5 MG TABLET (FP) PO SCH (11:05)
[2019-03-13] MEDS: BENZTROPINE MESYLATE 0.5 MG TABLET (FP) PO SCH (11:06)
[2019-03-13] MEDS: CALCIUM (OYSTER SHELL) 500 MG TABLET (FP) PO SCH (11:07)
[2019-03-13] MEDS: FERROUS SO4 325 MG TABLET (FP) PO SCH (11:07)
[2019-03-13] MEDS: LISINOPRIL 5 MG TABLET (FP) PO SCH (11:07)
[2019-03-13] MEDS: FUROSEMIDE 20 MG TABLET (FP) PO SCH (11:07)
[2019-03-13] MEDS: ASCORBIC ACID 500 MG TABLET (FP) PO SCH (11:09)
[2019-03-13] MEDS: CHOLECALCIFEROL (VIT D3) 400 UNIT (10 MCG) TABLET PO SCH (11:09)
--- NOTE | 2019-03-13 13:30 | PN ---
Progress Note (short form) - Note Progress Note: PULMONARY Denies shortness of breath or chest pain. Awaiting pathology. Vital Signs Period Temp Pulse Resp BP Sys/Stock Pulse Ox Last 24 Hr 97.8 F-98.4 F 86-104 18-20 93-118/64-68 98 Gen: NAD at rest Heart: RRR Lung: decreased breath sounds at the bases Abd: soft, nontender Ext: no edema CBC, BMP 03/13/19 07:05 03/13/19 07:05 Active Medications Aripiprazole (Abilify) 5 mg PO DAILY [facility] Last Admin: 03/13/19 11:05 Dose: 5 mg Ascorbic Acid (Vitamin C -) 500 mg PO DAILY [facility] Last Admin: 03/13/19 11:09 Dose: 500 mg Benztropine Mesylate (Cogentin -) 0.5 mg PO DAILY [facility] Last Admin: 03/13/19 11:06 Dose: 0.5 mg Calcium Carbonate (Os-Davey 500mg -) 500 mg PO DAILY [facility] Last Admin: 03/13/19 11:07 Dose: 500 mg Cholecalciferol (Vitamin D3 -) 400 unit PO DAILY [facility] Last Admin: 03/13/19 11:09 Dose: 400 unit Diltiazem HCl (Cardizem -) 30 mg PO TID [facility] Last Admin: 03/13/19 05:57 Dose: 30 mg Enoxaparin Sodium (Lovenox -) 80 mg SQ Q12H [facility] Last Admin: 03/13/19 05:58 Dose: 80 mg Ferrous Sulfate (Feosol -) 325 mg PO DAILY [facility] Last Admin: 03/13/19 11:07 Dose: 325 mg Furosemide (Lasix -) 20 mg PO DAILY [facility] Last Admin: 03/13/19 11:07 Dose: 20 mg Insulin Aspart (Novolog Vial Sliding Scale -) 1 vial SQ ACHS [facility]; Protocol Last Admin: 03/13/19 11:30 Dose: Not Given Lisinopril (Prinivil) 2.5 mg PO DAILY [facility] Last Admin: 03/13/19 11:07 Dose: 2.5 mg Metoprolol Succinate (Toprol Xl -) 100 mg PO BID [facility] Last Admin: 03/13/19 11:08 Dose: 100 mg A/P Lung Mass likely malignant Mediastinal Lymphadenopathy Atrial Fibrillation CAD HTN DM Hyperlipidemia Schizophrenia Anemia - continue antibiotics per ID - f/u pathology - rate control - continue anticoagulation
--- NOTE | 2019-03-13 17:04 | PATH ---
Cytology Non-Gynecological Report Patient Name: CHARY RUSS Med. Rec. #: [id number] /Age/Gender: 1950 (Age: 68) / M Account: [id number] Location: [facility] MED/SURG Taken: 03/11/2019 Received: 03/12/2019 Reported: 03/13/2019 Physicians: Raj Mayer M.D. Specimen(s) Received A: BRONCHIAL WASHINGS B: BRONCHIAL WASHINGS Clinical History Lung mass, bronchial mass Final Diagnosis A-B. BRONCHIAL WASHINGS FOR CYTOLOGY: POSITIVE FOR MALIGNANT CELLS. POORLY DIFFERENTIATED CARCINOMA. MALIGNANT EPITHELIAL CELLS WITH HYPERCHROMASIA, NUCLEAR PLEOMORPHISM, INCREASED NUCLEUS TO CYTOPLASMIC RATIO, DISPERSED FEW SMALL CLUSTERS AND RARE SINGLE CELLS IN A BACKGROUND OF NECROSIS AND INFLAMMATORY INFILTRATE. SEE COMMENT. Comment: Concurrent biopsy material ([id number]) is morphologically similar. Electronically Signed Kisha Guerrero M.D. Gross Description A. Approximately 50 cc of bloody fluid received fixed in 50% alcohol. One cytofunnel prepared and Pap stained. One cellblock prepared. B. Approximately 15 cc of bloody fluid received fresh. One cytofunnel prepared and Pap stained. One cellblock prepared.
[2019-03-13] MEDS ORDERED: INSULIN (NOVOLOG) ASPART 100 UNITS/ML 10ML VIAL ONE (20:48)
--- NOTE | 2019-03-13 20:53 | PN ---
Progress Note (short form) - Note Progress Note: Seen and examined; please see resident note for further discussion. Agree with their note including assessment and plan as outlined aside from as supplemented myself. Independently reviewed and verified all [place] historical and PE findings as well as labs and imaging. Discussed at length with resident and consulting services. No cough or SOB; denies CP. Doing well. Told me he thought they removed the mass and he may be cured today; i spoke with him more regarding this and he hexhibits persisting restricted insight. 10 sys ROS done and negative aside from HPI VS, labs, imaging reviewed NAD AAO resting in bed NC AT EOMI PERRLA RRR s1/2 Lungs CTAB, w/ sym exp NT ND +BS CN2-12 wnl, no fnd Normal mood, appropriate behavior No new rashes or skin breakdown noted Trachea midline without lymphadenopathy Independently reviewed images for initial CT. Echo reviewed; biatrial enlargement with mod MV disease noted but non- hemodynamically sig. Low normal LVEF. A/P: Patient presents for lung mass and is pending bronchoscopy with biopsy; post procedure CXR without initial issues. Pending biopsy results to determine treatment course and discussion with oncology team regarding this. I discussed with CM regarding placement. Discussed with Mark Dickson ([facility]) regarding placement back there as patient came from a retirement facility to hospital then was discharged to [facility] as a short term patient and now is back at the hospital likely lacking capacity in an overall sense with a likely oncologic diagnosis. May require ethics meeting. Pathology is still pending. Lung Mass (Followup pathology; discussed consent with Dr. Sharma. Will need ultimate plan per heme onc with tissue pathology. Overall, the patient has questionable capacity to accept or refuse treatment and should he have the need for ongoing oncologic care this may require ethics consultation and evaluation. Strong smoking history noted). 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 Restarted AC) History of diastolic dysfunction (Appears euvolemic at this juncture) History nonobstructing CAD (Noted historical findings, no current sx. No wma on echo and no new ischemic changes on EKG). Chronic iron deficiency anemia with likely component of Anemia of Chronic Disease (Noted iron studies and red cell indices; start PO iron supplementation. Will discuss with heme prior to DC. Unaware of indications for IV iron at this time). Full Code
[2019-03-14] MEDS ORDERED: PT OWN MED DRAWER 7, Y5N ONE ×4 (05:58→20:36)
[2019-03-14] MEDS: ENOXAPARIN NA (PORCINE) 80 MG/0.8 ML DISP.SYRIN SQ SCH ×2 (06:24→17:56)
[2019-03-14] MEDS: dilTIAZem HCL 30 MG TABLET (FP) PO SCH ×3 (06:24→21:11)
[2019-03-14] MEDS: INSULIN SLIDING SCALE (NOVOLOG) 1 VIAL SQ SCH ×4 (06:24→21:11)
--- NOTE | 2019-03-14 08:56 | PN ---
Progress Note (short form) - Note Progress Note: HPI: No acute events overnight. No complaints today. Still with dry cough and unable to expectorate. One induced sample received today PE: Gen: NAD, awake, alert, oriented x3 HEENT: NC/AT< MARCELA, sclera anicteric, MMM, LUNG: R anterior breath sounds diminished; good inspiratory effort, no rales or wheezes CARD: RRR no murmurs appreciated ABD: Soft, Nt/ND normoactive BS, no caput medusa, no guarding, no nodularity with liver palpation EXT: no edema strong pulses b/l Microbiology 03/07/19 21:00 Urine For Antigen Detection Legionella Antigen - Final 03/07/19 21:00 Urine For Antigen Detection Streptococcus pneumoniae Antigen (M - Final Active Medications Aripiprazole (Abilify) 5 mg PO DAILY [facility] Last Admin: 03/12/19 11:41 Dose: 5 mg Ascorbic Acid (Vitamin C -) 500 mg PO DAILY [facility] Last Admin: 03/12/19 11:44 Dose: 500 mg Benztropine Mesylate (Cogentin -) 0.5 mg PO DAILY [facility] Last Admin: 03/12/19 11:44 Dose: 0.5 mg Calcium Carbonate (Os-Davey 500mg -) 500 mg PO DAILY [facility] Last Admin: 03/12/19 11:41 Dose: 500 mg Cholecalciferol (Vitamin D3 -) 400 unit PO DAILY [facility] Last Admin: 03/12/19 11:41 Dose: 400 unit Diltiazem HCl (Cardizem -) 30 mg PO TID [facility] Last Admin: 03/12/19 14:36 Dose: 30 mg Enoxaparin Sodium (Lovenox -) 80 mg SQ Q12H [facility] Last Admin: 03/12/19 06:40 Dose: 80 mg Ferrous Sulfate (Feosol -) 325 mg PO DAILY [facility] Last Admin: 03/12/19 11:41 Dose: 325 mg Furosemide (Lasix -) 20 mg PO DAILY [facility] Last Admin: 03/12/19 11:42 Dose: 20 mg Insulin Aspart (Novolog Vial Sliding Scale -) 1 vial SQ ACHS [facility]; Protocol Last Admin: 03/12/19 12:01 Dose: Not Given Lisinopril (Prinivil) 2.5 mg PO DAILY [facility] Last Admin: 03/12/19 11:41 Dose: 2.5 mg Metoprolol Succinate (Toprol Xl -) 100 mg PO BID [facility] Last Admin: 03/12/19 11:42 Dose: 100 mg Assessment and Plan: Right upper lobe mass Mediastinal lymphadenopathy Iron deficient anemia Type 2 DM Atrial fibrillation Hx of HTN Schizophrenia history Hx of HLD Hx of CAD without stents --Biopsy results for RUL obstructing mass pending --Bronchial washings pending; prelim pathology to be released today --Off ABX --Will continue on Lovenox for PPX due to suspicion of malignancy --Appreciate all automotive internet sales consultant recommendations --Afib currently well-controlled --Continue Toprol XL 100mg BID PO --Continue Cardizem 30mg TID PO --Continue Abilify for behaviour modification --Ferrous Sulfate 325mg PO qdaily for iron deficiency --Likely component of chronic disease --H/H remains stable; monitor for bleeding FEN: Fluids: none electrolyte abnormalities: None Nutrition: diabetic/sodium PPX: DVT - Lovenox GI - Not indicated Dispo: Biopsy results; monitor M/S Case discussed with Dr. Paco Alberot, DO - IM PGY-3 <Justin Alberto - Last Filed: 03/14/19 08:56> - Note Progress Note: Seen and examined; please see resident note for further discussion. Agree with their note including assessment and plan as outlined aside from as supplemented myself. Independently reviewed and verified all [place] historical and PE findings as well as labs and imaging. Discussed at length with resident and consulting services. No cough or SOB; denies CP. Doing well. Told me he thought they removed the mass and he may be cured today; i spoke with him more regarding this and he hexhibits persisting restricted insight. 10 sys ROS done and negative aside from HPI VS, labs, imaging reviewed NAD AAO resting in bed NC AT EOMI PERRLA RRR s1/2 Lungs CTAB, w/ sym exp NT ND +BS CN2-12 wnl, no fnd Normal mood, appropriate behavior No new rashes or skin breakdown noted Trachea midline without lymphadenopathy Independently reviewed images for initial CT. Echo reviewed; biatrial enlargement with mod MV disease noted but non- hemodynamically sig. Low normal LVEF. A/P: Patient presents for lung mass and is pending bronchoscopy with biopsy; post procedure CXR without initial issues. Pending biopsy results to determine treatment course and discussion with oncology team regarding this. I discussed with CM regarding placement. 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 May require ethics meeting. Pathology is still pending. Lung Mass (Followup pathology; discussed consent with Dr. Sharma. Will need ultimate plan per heme onc with tissue pathology. Overall, the patient has questionable capacity to accept or refuse treatment and should he have the need for ongoing oncologic care this may require ethics consultation and evaluation. Strong smoking history noted). 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 Restarted AC) History of diastolic dysfunction (Appears euvolemic at this juncture) History nonobstructing CAD (Noted historical findings, no current sx. No wma on echo and no new ischemic changes on EKG). Chronic iron deficiency anemia with likely component of Anemia of Chronic Disease (Noted iron studies and red cell indices; start PO iron supplementation. Will discuss with heme prior to DC. Unaware of indications for IV iron at this time). Full Code <Miles Antonio - Last Filed: 03/17/19 07:59>
[2019-03-14] MEDS: ARIPiprazole 5 MG TABLET (FP) PO SCH (10:26)
[2019-03-14] MEDS: ASCORBIC ACID 500 MG TABLET (FP) PO SCH (10:26)
[2019-03-14] MEDS: FERROUS SO4 325 MG TABLET (FP) PO SCH (10:26)
[2019-03-14] MEDS: BENZTROPINE MESYLATE 0.5 MG TABLET (FP) PO SCH (10:26)
[2019-03-14] MEDS: LISINOPRIL 5 MG TABLET (FP) PO SCH (10:27)
[2019-03-14] MEDS: CALCIUM (OYSTER SHELL) 500 MG TABLET (FP) PO SCH (10:27)
[2019-03-14] MEDS: FUROSEMIDE 20 MG TABLET (FP) PO SCH (10:27)
[2019-03-14] MEDS: CHOLECALCIFEROL (VIT D3) 400 UNIT (10 MCG) TABLET PO SCH (10:28)
--- NOTE | 2019-03-14 10:57 | PN ---
Progress Note, Physician History of Present Illness: doing well no new issues - Current Medication List Current Medications: Active Medications Aripiprazole (Abilify) 5 mg PO DAILY [facility] Last Admin: 03/14/19 10:26 Dose: 5 mg Ascorbic Acid (Vitamin C -) 500 mg PO DAILY [facility] Last Admin: 03/14/19 10:26 Dose: 500 mg Benztropine Mesylate (Cogentin -) 0.5 mg PO DAILY [facility] Last Admin: 03/14/19 10:26 Dose: 0.5 mg Calcium Carbonate (Os-Davey 500mg -) 500 mg PO DAILY [facility] Last Admin: 03/14/19 10:27 Dose: 500 mg Cholecalciferol (Vitamin D3 -) 400 unit PO DAILY [facility] Last Admin: 03/14/19 10:28 Dose: 400 unit Diltiazem HCl (Cardizem -) 30 mg PO TID [facility] Last Admin: 03/14/19 06:24 Dose: 30 mg Enoxaparin Sodium (Lovenox -) 80 mg SQ Q12H [facility] Last Admin: 03/14/19 06:24 Dose: 80 mg Ferrous Sulfate (Feosol -) 325 mg PO DAILY [facility] Last Admin: 03/14/19 10:26 Dose: 325 mg Furosemide (Lasix -) 20 mg PO DAILY [facility] Last Admin: 03/14/19 10:27 Dose: 20 mg Insulin Aspart (Novolog Vial Sliding Scale -) 1 vial SQ ACHS [facility]; Protocol Last Admin: 03/14/19 06:24 Dose: Not Given Lisinopril (Prinivil) 2.5 mg PO DAILY [facility] Last Admin: 03/14/19 10:27 Dose: 2.5 mg Metoprolol Succinate (Toprol Xl -) 100 mg PO BID [facility] Last Admin: 03/14/19 10:28 Dose: 100 mg - Objective Vital Signs: Vital Signs Temperature 98.3 F 03/14/19 06:00 Pulse Rate 85 03/14/19 06:00 Respiratory Rate 20 03/14/19 06:00 Blood Pressure 113/70 03/14/19 06:00 O2 Sat by Pulse Oximetry (%) 98 03/12/19 21:00 Constitutional: Yes: No Distress, Calm Cardiovascular: Yes: S1, S2 Respiratory: Yes: Regular, CTA Bilaterally Gastrointestinal: Yes: Normal Bowel Sounds, Soft Musculoskeletal: Yes: WNL Extremities: Yes: WNL Neurological: Yes: Alert, Oriented Psychiatric: Yes: Alert, Oriented Labs: CBC, BMP 03/13/19 07:05 03/13/19 07:05 INR, PTT INR 1.18 (0.83-1.09) H 03/11/19 07:05 Assessment/Plan Problem List - Problems (1) CAD (coronary artery disease) Code(s): I25.10 - ATHSCL HEART DISEASE OF [place] CORONARY ARTERY W/O ANG PCTRS (2) Mass of upper lobe of right lung Code(s): R91.8 - OTHER NONSPECIFIC ABNORMAL FINDING OF LUNG FIELD (3) Mediastinal lymphadenopathy Code(s): R59.0 - LOCALIZED ENLARGED LYMPH NODES (4) Pleural effusion Code(s): J90 - PLEURAL EFFUSION, NOT ELSEWHERE CLASSIFIED (5) 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 male with PMH of DM, AFIB, CAD, HLD, anemia, Rt foot OM, and schizophrenia sent from [facility] due to abnormal CXR and indeterminate Quantiferon result and dry cough RUL/apical lung lesion - erosion into T3/rib r/o TB/malignancy b/l pleural effusions mediastinal/hilar KAYLYN DM CAD AFIB Anemia Schizophrenia plan continue current mgmt await for all results await for path rest as per the team
[2019-03-14] MEDS ORDERED: INSULIN (NOVOLOG) ASPART 100 UNITS/ML 10ML VIAL ONE ×2 (11:19→20:52)
--- NOTE | 2019-03-14 13:50 | PN ---
Progress Note, Physician History of Present Illness: pulmonary alert,comfortable,-sob, bronchial washings poorly differentiated ca - Current Medication List Current Medications: Active Medications Aripiprazole (Abilify) 5 mg PO DAILY [facility] Last Admin: 03/14/19 10:26 Dose: 5 mg Ascorbic Acid (Vitamin C -) 500 mg PO DAILY [facility] Last Admin: 03/14/19 10:26 Dose: 500 mg Benztropine Mesylate (Cogentin -) 0.5 mg PO DAILY [facility] Last Admin: 03/14/19 10:26 Dose: 0.5 mg Calcium Carbonate (Os-Davey 500mg -) 500 mg PO DAILY [facility] Last Admin: 03/14/19 10:27 Dose: 500 mg Cholecalciferol (Vitamin D3 -) 400 unit PO DAILY [facility] Last Admin: 03/14/19 10:28 Dose: 400 unit Diltiazem HCl (Cardizem -) 30 mg PO TID [facility] Last Admin: 03/14/19 06:24 Dose: 30 mg Enoxaparin Sodium (Lovenox -) 80 mg SQ Q12H [facility] Last Admin: 03/14/19 06:24 Dose: 80 mg Ferrous Sulfate (Feosol -) 325 mg PO DAILY [facility] Last Admin: 03/14/19 10:26 Dose: 325 mg Furosemide (Lasix -) 20 mg PO DAILY [facility] Last Admin: 03/14/19 10:27 Dose: 20 mg Insulin Aspart (Novolog Vial Sliding Scale -) 1 vial SQ [facility]; Protocol Last Admin: 03/14/19 11:27 Dose: Not Given Lisinopril (Prinivil) 2.5 mg PO DAILY [facility] Last Admin: 03/14/19 10:27 Dose: 2.5 mg Metoprolol Succinate (Toprol Xl -) 100 mg PO BID [facility] Last Admin: 03/14/19 10:28 Dose: 100 mg - Objective Vital Signs: Vital Signs Temperature 98.9 F 03/14/19 08:25 Pulse Rate 84 03/14/19 08:25 Respiratory Rate 20 03/14/19 08:25 Blood Pressure 107/66 03/14/19 08:25 O2 Sat by Pulse Oximetry (%) 98 03/12/19 21:00 Constitutional: Yes: Well Nourished, Calm Eyes: Yes: WNL HENT: Yes: WNL Neck: Yes: WNL Cardiovascular: Yes: Pulse Irregular, S1, S2 Respiratory: Yes: CTA Bilaterally Gastrointestinal: Yes: Normal Bowel Sounds, Soft Extremities: Yes: WNL Edema: No Labs: Problem List - Problems (1) CAD (coronary artery disease) Code(s): I25.10 - ATHSCL HEART DISEASE OF [place] CORONARY ARTERY W/O ANG PCTRS (2) Mass of upper lobe of right lung Code(s): R91.8 - OTHER NONSPECIFIC ABNORMAL FINDING OF LUNG FIELD (3) Mediastinal lymphadenopathy Code(s): R59.0 - LOCALIZED ENLARGED LYMPH NODES (4) Pleural effusion Code(s): J90 - PLEURAL EFFUSION, NOT ELSEWHERE CLASSIFIED (5) Afib Code(s): I48.91 - UNSPECIFIED ATRIAL FIBRILLATION Qualifiers: Atrial fibrillation type: persistent (6) Anemia Code(s): D64.9 - ANEMIA, UNSPECIFIED Qualifiers: Anemia type: unspecified type Qualified Code(s): D64.9 - Anemia, unspecified (7) HTN (hypertension) Code(s): I10 - ESSENTIAL (PRIMARY) HYPERTENSION Qualifiers: Hypertension type: essential hypertension Qualified Code(s): I10 - Essential (primary) hypertension Assessment/Plan A/P Lung Mass malignant Mediastinal Lymphadenopathy Atrial Fibrillation CAD HTN DM Hyperlipidemia Schizophrenia Anemia - continue antibiotics per ID - f/u BX - rate control - continue anticoagulation - oncology f/u DR LOO
--- NOTE | 2019-03-14 16:54 | PATH ---
Surgical Pathology Report Patient Name: CHARY RUSS Med. Rec. #: [id number] /Age/Gender: 1950 (Age: 68) / M Account: [id number] Location: [facility] MED/SURG Taken: 03/11/2019 Received: 03/12/2019 Reported: 03/21/2019 Physicians: Raj Mayer M.D. Carlos Delaney M.D. Specimen(s) Received BRONCHIAL BIOPSY RIGHT LOBE Clinical History Lung mass Final Diagnosis BRONCHUS, MAIN LOBE, RIGHT, BRONCHIAL BIOPSY: ADENOCARCINOMA, POORLY DIFFERENTIATED. SEE COMMENT. Comment: Immunohistochemical stains performed and interpreted at [facility] show the tumor is positive for AE1/3, CK7, TTF-1, while negative for CK20. Additional immunohistochemical stains performed at [facility], [place], [place] ([id number]) and interpreted at [facility] show the tumor is positive for Napsin-A, while negative for p40. Overall immunophenotype is supportive of primary lung origin. See concurrent cytology ([id number]). Findings discussed with Dr. Mayer. Positive and negative controls (internal if applicable) show appropriate results. Electronically Signed Kisha Guerrero M.D. Addendum Reported: 03/24/2019 Addendum Diagnosis Immunohistochemical stains for MisMatch Repair Protein Analysis performed at [facility] in [place], [place] ([id number]) and interpreted at [facility] show the following: RESULTS: HMLH-1 INTACT NUCLEAR EXPRESSION HMSH-2 INTACT NUCLEAR EXPRESSION HMSH-6 INTACT NUCLEAR EXPRESSION PMS2 INTACT NUCLEAR EXPRESSION INTERPRETATION: No loss of nuclear expression of MMR proteins: low probability of microsatellite instability-high (MSI-H). PDL-1 pending, finding will be reported separately. Kisha Guerrero M.D. Addendum Reported: 03/28/2019 Addendum Diagnosis PD-L1 performed and interpreted at [facility] shows the following: Marker Tumor Proportion Score Interpretation Description PD-L1 Lung (KEYTRUDA) >90 High Expression Programmed Ligand 1 (PD-L1), Clone 22C3 pharmDx(tm) kit for KEYTRUDA in lung cancer Reference Range: TPS less than 1%: No Expression TPS greater than or equal to 1%: Expression Eligible for KEYTRUDA (pembrolizumab) monotherapy. TPS greater than or equal to 50%: High Expression Eligible for with KEYTRUDA (pembrolizumab) monotherapy. See [facility] report (Specimen #: [id number]) for additional details. Kisha Guerrero M.D. Gross Description Received in formalin labeled "bronchial biopsy right main lobe," is a 1.2 x 1.0 x 0.2 cm aggregate of [place] soft tissue fragments. The formalin is filtered and the specimen is entirely submitted in one cassette. 03/12/201903/12/2019
--- NOTE | 2019-03-14 18:54 | PN ---
Progress Note (short form) - Note Progress Note: Ethics The patient has newly been diagnosed with adenocarcinoma of the lung. I have consulted on him on the previous admission when he was considered by psychiatry not to have medical decision making capacity. On this admission he seemed aware of the need for the bronchoscopy and agreed to have the procedure and it was completed. Unfortunately, the diagnosis was not what was hoped for as lung cancer was found. It now appears that he may not now understand the significance of the pathology report so any treatment decision by the treating physicians should be guided first by a repeat psychiatry evaluation for medical decision making. Due to the testing and prolonged stay in the hospital his decision making may again be compromised. He also has schizophrenia. If he is now determined to not have decision making capacity then 2 treating physicians which would include his attending MD can make medical decisions for him because there has already been a satisfactory investigation of any family members or friends on his previous admission and there were none. However, if there is any decision to withhold or withdraw life sustaining treatment or place a DNR, then there are certain criteria that must be met, as outlined in the family medical decisions act of 2010, that must be followed. If necessary those qualifications can be listed or placed on the patient's chart. I will follow.
--- NOTE | 2019-03-14 19:24 | PN ---
Progress Note (short form) - Note Progress Note: Patient seen and examined Discussed the results of CT chest -- RUL mass, erosionof the rib and T2 vertebra. MEdiastinal and hilar adenopathy Discussed pathology report -- c/w poorly differentiated adenoca AFVSS Cor: RSR, No murmurs, No gallops Lungs: Clear to P&A Abd: Soft, Normal bowel sounds, No organomegaly Ext:No significant edema Labs/meds rviewed a/p 68 y/opatient with HTN, afib, CAD, DM<, HLD schizophrenia, with newly diagnosed lung ca will check MRI brain/C/T spine, bone scan to complete w/u Discussed imaging/path findings with patient He was able to recall and tell me what I had discussed HE understands that his treatment may involve chemotherapy/immunotherapy/ targeted therapies He understands that these therapies may extend his life He understands that he may face fatal consequences if untreated, in the near future But he says he will use his own remedy of relaxing and letting nature take its course. He seems to understand that the treatment I am offering will prolong his life and following his remedy may end up in his demise soon
--- NOTE | 2019-03-14 19:38 | PN ---
Progress Note (short form) - Note Progress Note: HPI: No acute events overnight. No complaints today. PE: Gen: NAD, awake, alert, oriented x3 HEENT: NC/AT< MARCELA, sclera anicteric, MMM, LUNG: R anterior breath sounds diminished; good inspiratory effort, no rales or wheezes CARD: RRR no murmurs appreciated ABD: Soft, Nt/ND normoactive BS, no caput medusa, no guarding, no nodularity with liver palpation EXT: no edema strong pulses b/l Microbiology 03/07/19 21:00 Urine For Antigen Detection Legionella Antigen - Final 03/07/19 21:00 Urine For Antigen Detection Streptococcus pneumoniae Antigen (M - Final Active Medications Aripiprazole (Abilify) 5 mg PO DAILY [facility] Last Admin: 03/12/19 11:41 Dose: 5 mg Ascorbic Acid (Vitamin C -) 500 mg PO DAILY [facility] Last Admin: 03/12/19 11:44 Dose: 500 mg Benztropine Mesylate (Cogentin -) 0.5 mg PO DAILY [facility] Last Admin: 03/12/19 11:44 Dose: 0.5 mg Calcium Carbonate (Os-Davey 500mg -) 500 mg PO DAILY [facility] Last Admin: 03/12/19 11:41 Dose: 500 mg Cholecalciferol (Vitamin D3 -) 400 unit PO DAILY [facility] Last Admin: 03/12/19 11:41 Dose: 400 unit Diltiazem HCl (Cardizem -) 30 mg PO TID [facility] Last Admin: 03/12/19 14:36 Dose: 30 mg Enoxaparin Sodium (Lovenox -) 80 mg SQ Q12H [facility] Last Admin: 03/12/19 06:40 Dose: 80 mg Ferrous Sulfate (Feosol -) 325 mg PO DAILY [facility] Last Admin: 03/12/19 11:41 Dose: 325 mg Furosemide (Lasix -) 20 mg PO DAILY [facility] Last Admin: 03/12/19 11:42 Dose: 20 mg Insulin Aspart (Novolog Vial Sliding Scale -) 1 vial SQ ACHS [facility]; Protocol Last Admin: 03/12/19 12:01 Dose: Not Given Lisinopril (Prinivil) 2.5 mg PO DAILY [facility] Last Admin: 03/12/19 11:41 Dose: 2.5 mg Metoprolol Succinate (Toprol Xl -) 100 mg PO BID [facility] Last Admin: 03/12/19 11:42 Dose: 100 mg Assessment and Plan: Right upper lobe mass Mediastinal lymphadenopathy Iron deficient anemia Type 2 DM Atrial fibrillation Hx of HTN Schizophrenia history Hx of HLD Hx of CAD without stents --Biopsy results for RUL obstructing mass pending --Prelim results noted as high-grade dysplasia --Bronchial washings pending --Will continue on Lovenox for PPX due to suspicion of malignancy --Pt will need psych consult for determination of insight into Ca treatment and medical-decision making which may be impaired by prolonged stay and schizophrenia at this juncture of his hospital stay. --Appreciate all consultants intern recommendations --Afib currently well-controlled --Continue Toprol XL 100mg BID PO --Continue Cardizem 30mg TID PO --Continue Abilify for behaviour modification --Ferrous Sulfate 325mg PO qdaily for iron deficiency --Likely component of chronic disease --H/H remains stable; monitor for bleeding FEN: Fluids: none electrolyte abnormalities: None Nutrition: diabetic/sodium PPX: DVT - Lovenox GI - Not indicated Dispo: Biopsy results; psych; monitor M/S Case discussed with Dr. Paco Alberto, DO - IM PGY-3 <Justin Alberto - Last Filed: 03/14/19 19:38> - Note Progress Note: Seen and examined; please see resident note for further discussion. Agree with their note including assessment and plan as outlined aside from as supplemented myself. Independently reviewed and verified all [place] historical and PE findings as well as labs and imaging. Discussed at length with resident and consulting services. No cough or SOB; denies CP. Doing well. Told me he thought they removed the mass and he may be cured today; i spoke with him more regarding this and he hexhibits persisting restricted insight. 10 sys ROS done and negative aside from HPI VS, labs, imaging reviewed NAD AAO resting in bed NC AT EOMI PERRLA RRR s1/2 Lungs CTAB, w/ sym exp NT ND +BS CN2-12 wnl, no fnd Normal mood, appropriate behavior No new rashes or skin breakdown noted Trachea midline without lymphadenopathy Independently reviewed images for initial CT. Echo reviewed; biatrial enlargement with mod MV disease noted but non- hemodynamically sig. Low normal LVEF. A/P: Patient presents for lung mass and is pending bronchoscopy with biopsy; post procedure CXR without initial issues. Pending biopsy results to determine treatment course and discussion with oncology team regarding this. I discussed with regarding placement. Discussed with Mark Dickson ([place]) regarding placement back there as patient came from a alf facility to hospital then was discharged to [facility] as a short term patient and now is back at the hospital likely lacking capacity in an overall sense with a likely oncologic diagnosis. May require ethics meeting. Pathology is still pending. Lung Mass (Followup pathology; discussed consent with Dr. Sharma. Will need ultimate plan per heme onc with tissue pathology. Overall, the patient has questionable capacity to accept or refuse treatment and should he have the need for ongoing oncologic care this may require ethics consultation and evaluation. Strong smoking history noted). 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 Restarted AC) History of diastolic dysfunction (Appears euvolemic at this juncture) History nonobstructing CAD (Noted historical findings, no current sx. No wma on echo and no new ischemic changes on EKG). Chronic iron deficiency anemia with likely component of Anemia of Chronic Disease (Noted iron studies and red cell indices; start PO iron supplementation. Will discuss with heme prior to DC. Unaware of indications for IV iron at this time). Full Code <Miles Antonio - Last Filed: 03/17/19 23:39>
[2019-03-15] MEDS ORDERED: PT OWN MED DRAWER 7, Y5N ONE ×3 (06:13→21:18)
[2019-03-15] MEDS: dilTIAZem HCL 30 MG TABLET (FP) PO SCH ×3 (06:47→21:38)
[2019-03-15] MEDS: INSULIN SLIDING SCALE (NOVOLOG) 1 VIAL SQ SCH ×4 (06:48→21:37)
[2019-03-15] MEDS: ENOXAPARIN NA (PORCINE) 80 MG/0.8 ML DISP.SYRIN SQ SCH ×2 (06:48→17:03)
[2019-03-15] MEDS: CALCIUM (OYSTER SHELL) 500 MG TABLET (FP) PO SCH (09:02)
[2019-03-15] MEDS: ARIPiprazole 5 MG TABLET (FP) PO SCH (09:02)
[2019-03-15] MEDS: CHOLECALCIFEROL (VIT D3) 400 UNIT (10 MCG) TABLET PO SCH (09:03)
[2019-03-15] MEDS: ASCORBIC ACID 500 MG TABLET (FP) PO SCH (09:03)
[2019-03-15] MEDS: FUROSEMIDE 20 MG TABLET (FP) PO SCH (09:03)
[2019-03-15] MEDS: FERROUS SO4 325 MG TABLET (FP) PO SCH (09:03)
[2019-03-15] MEDS: LISINOPRIL 5 MG TABLET (FP) PO SCH (09:03)
[2019-03-15] MEDS: BENZTROPINE MESYLATE 0.5 MG TABLET (FP) PO SCH (09:04)
--- NOTE | 2019-03-15 11:24 | PN ---
Progress Note, Physician History of Present Illness: stable no new issues - Current Medication List Current Medications: Active Medications Aripiprazole (Abilify) 5 mg PO DAILY [facility] Last Admin: 03/15/19 09:02 Dose: 5 mg Ascorbic Acid (Vitamin C -) 500 mg PO DAILY [facility] Last Admin: 03/15/19 09:03 Dose: 500 mg Benztropine Mesylate (Cogentin -) 0.5 mg PO DAILY [facility] Last Admin: 03/15/19 09:04 Dose: 0.5 mg Calcium Carbonate (Os-Davey 500mg -) 500 mg PO DAILY [facility] Last Admin: 03/15/19 09:02 Dose: 500 mg Cholecalciferol (Vitamin D3 -) 400 unit PO DAILY [facility] Last Admin: 03/15/19 09:03 Dose: 400 unit Diltiazem HCl (Cardizem -) 30 mg PO TID [facility] Last Admin: 03/15/19 06:47 Dose: 30 mg Enoxaparin Sodium (Lovenox -) 80 mg SQ Q12H [facility] Last Admin: 03/15/19 06:48 Dose: 80 mg Ferrous Sulfate (Feosol -) 325 mg PO DAILY [facility] Last Admin: 03/15/19 09:03 Dose: 325 mg Furosemide (Lasix -) 20 mg PO DAILY [facility] Last Admin: 03/15/19 09:03 Dose: 20 mg Insulin Aspart (Novolog Vial Sliding Scale -) 1 vial SQ ACHS [facility]; Protocol Last Admin: 03/15/19 11:11 Dose: 2 units Lisinopril (Prinivil) 2.5 mg PO DAILY [facility] Last Admin: 03/15/19 09:03 Dose: 2.5 mg Metoprolol Succinate (Toprol Xl -) 100 mg PO BID [facility] Last Admin: 03/15/19 09:03 Dose: 100 mg - Objective Vital Signs: Vital Signs Temperature 98.3 F 03/15/19 06:00 Pulse Rate 67 03/15/19 06:00 Respiratory Rate 20 03/15/19 06:00 Blood Pressure 100/53 L 03/15/19 06:00 O2 Sat by Pulse Oximetry (%) 99 03/14/19 21:00 Constitutional: Yes: No Distress, Calm Cardiovascular: Yes: S1, S2 Respiratory: Yes: Regular, CTA Bilaterally Gastrointestinal: Yes: Normal Bowel Sounds, Soft Musculoskeletal: Yes: WNL Extremities: Yes: WNL Neurological: Yes: Alert, Oriented Psychiatric: Yes: Alert, Oriented Labs: CBC, BMP 03/13/19 07:05 03/13/19 07:05 INR, PTT INR 1.18 (0.83-1.09) H 03/11/19 07:05 Assessment/Plan Problem List - Problems (1) CAD (coronary artery disease) Code(s): I25.10 - ATHSCL HEART DISEASE OF [place] CORONARY ARTERY W/O ANG PCTRS (2) Mass of upper lobe of right lung Code(s): R91.8 - OTHER NONSPECIFIC ABNORMAL FINDING OF LUNG FIELD (3) Mediastinal lymphadenopathy Code(s): R59.0 - LOCALIZED ENLARGED LYMPH NODES (4) Pleural effusion Code(s): J90 - PLEURAL EFFUSION, NOT ELSEWHERE CLASSIFIED (5) 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 male with PMH of DM, AFIB, CAD, HLD, anemia, Rt foot OM, and schizophrenia sent from [facility] due to abnormal CXR and indeterminate Quantiferon result and dry cough RUL/apical lung lesion - erosion into T3/rib r/o TB/malignancy b/l pleural effusions mediastinal/hilar KAYLYN DM CAD AFIB Anemia Schizophrenia plan continue current mgmt plan for further mgmt
--- NOTE | 2019-03-15 12:08 | PN ---
Progress Note (short form) - Note Progress Note: pt has no new c/o he has good appetiet and no shortness of breath no distress vs Vital Signs Period Temp Pulse Resp BP Sys/Stock Pulse Ox Last 24 Hr 98 F-98.9 F 67-98 20-20 90-127/53-70 99 Gen: NAD, awake, alert, oriented x3 HEENT: NC/AT< MARCELA, sclera anicteric, MMM, LUNG: R anterior breath sounds diminished; good inspiratory effort, no rales or wheezes CARD: RRR no murmurs appreciated ABD: Soft, Nt/ND normoactive BS, no caput medusa, no guarding, no nodularity with liver palpation EXT: no edema strong pulses b/l CBC, BMP 03/13/19 07:05 03/13/19 07:05 Assessment and Plan: Right upper lobe mass Mediastinal lymphadenopathy --Biopsy results for RUL obstructing mass pending --Prelim results noted as high-grade dysplasia Iron deficient anemia stable on iron therapy Type 2 DM on coverage Atrial fibrillation --Continue Toprol XL 100mg BID PO --Continue Cardizem 30mg TID PO Hx of HTN stable Schizophrenia history Pt will need psych consult for determination of insight into Ca treatment and medical-decision making which may be impaired by prolonged stay and schizophrenia at this juncture of his hospital stay. Hx of HLD Hx of CAD without stents FEN: Fluids: none electrolyte abnormalities: None Nutrition: diabetic/sodium PPX: DVT - Lovenox GI - Not indicated Visit type - Emergency Visit Emergency Visit: Yes ED Registration Date: 03/07/19 Care time: The patient presented to the Emergency Department on the above date and was hospitalized for further evaluation of their emergent condition. - New Patient This patient is new to me today: Yes Date on this admission: 03/15/19 - Critical Care Critical Care patient: No - Discharge Referral Referred to [facility] Med P.C.: No
--- NOTE | 2019-03-15 14:36 | PN ---
Progress Note, Physician History of Present Illness: pulmonary alert,no distress,-sob - Current Medication List Current Medications: Active Medications Aripiprazole (Abilify) 5 mg PO DAILY [facility] Last Admin: 03/15/19 09:02 Dose: 5 mg Ascorbic Acid (Vitamin C -) 500 mg PO DAILY [facility] Last Admin: 03/15/19 09:03 Dose: 500 mg Benztropine Mesylate (Cogentin -) 0.5 mg PO DAILY [facility] Last Admin: 03/15/19 09:04 Dose: 0.5 mg Calcium Carbonate (Os-Davey 500mg -) 500 mg PO DAILY [facility] Last Admin: 03/15/19 09:02 Dose: 500 mg Cholecalciferol (Vitamin D3 -) 400 unit PO DAILY [facility] Last Admin: 03/15/19 09:03 Dose: 400 unit Diltiazem HCl (Cardizem -) 30 mg PO TID [facility] Last Admin: 03/15/19 06:47 Dose: 30 mg Enoxaparin Sodium (Lovenox -) 80 mg SQ Q12H [facility] Last Admin: 03/15/19 06:48 Dose: 80 mg Ferrous Sulfate (Feosol -) 325 mg PO DAILY [facility] Last Admin: 03/15/19 09:03 Dose: 325 mg Furosemide (Lasix -) 20 mg PO DAILY [facility] Last Admin: 03/15/19 09:03 Dose: 20 mg Insulin Aspart (Novolog Vial Sliding Scale -) 1 vial SQ ACHS [facility]; Protocol Last Admin: 03/15/19 11:11 Dose: 2 units Lisinopril (Prinivil) 2.5 mg PO DAILY [facility] Last Admin: 03/15/19 09:03 Dose: 2.5 mg Metoprolol Succinate (Toprol Xl -) 100 mg PO BID [facility] Last Admin: 03/15/19 09:03 Dose: 100 mg - Objective Vital Signs: Vital Signs Temperature 98.6 F 03/15/19 10:00 Pulse Rate 108 H 03/15/19 10:00 Respiratory Rate 20 03/15/19 10:00 Blood Pressure 102/70 03/15/19 10:00 O2 Sat by Pulse Oximetry (%) 96 03/15/19 09:00 Constitutional: Yes: Well Nourished, Calm Eyes: Yes: WNL HENT: Yes: WNL Neck: Yes: WNL Cardiovascular: Yes: Regular Rate and Rhythm, S1, S2 Respiratory: Yes: CTA Bilaterally Gastrointestinal: Yes: Normal Bowel Sounds, Soft Extremities: Yes: WNL Edema: No Labs: CBC, BMP 03/13/19 07:05 03/13/19 07:05 INR, PTT INR 1.18 (0.83-1.09) H 03/11/19 07:05 Problem List - Problems (1) CAD (coronary artery disease) Code(s): I25.10 - ATHSCL HEART DISEASE OF [place] CORONARY ARTERY W/O ANG PCTRS (2) Mass of upper lobe of right lung Code(s): R91.8 - OTHER NONSPECIFIC ABNORMAL FINDING OF LUNG FIELD (3) Mediastinal lymphadenopathy Code(s): R59.0 - LOCALIZED ENLARGED LYMPH NODES (4) Pleural effusion Code(s): J90 - PLEURAL EFFUSION, NOT ELSEWHERE CLASSIFIED (5) Afib Code(s): I48.91 - UNSPECIFIED ATRIAL FIBRILLATION Qualifiers: Atrial fibrillation type: persistent (6) Anemia Code(s): D64.9 - ANEMIA, UNSPECIFIED Qualifiers: Anemia type: unspecified type Qualified Code(s): D64.9 - Anemia, unspecified (7) HTN (hypertension) Code(s): I10 - ESSENTIAL (PRIMARY) HYPERTENSION Qualifiers: Hypertension type: essential hypertension Qualified Code(s): I10 - Essential (primary) hypertension Assessment/Plan A/P Lung Mass malignant Mediastinal Lymphadenopathy Atrial Fibrillation CAD HTN DM Hyperlipidemia Schizophrenia Anemia - continue antibiotics per ID - rate control - anticoagulation - as per oncology at this time pts does not want any treatment DR LOO
[2019-03-16] MEDS ORDERED: PT OWN MED DRAWER 7, Y5N ONE ×4 (06:06→20:47)
[2019-03-16] MEDS: INSULIN SLIDING SCALE (NOVOLOG) 1 VIAL SQ SCH ×4 (06:26→21:31)
[2019-03-16] MEDS: dilTIAZem HCL 30 MG TABLET (FP) PO SCH ×3 (06:26→21:31)
[2019-03-16] MEDS: ENOXAPARIN NA (PORCINE) 80 MG/0.8 ML DISP.SYRIN SQ SCH ×2 (06:26→17:29)
[2019-03-16] MEDS: FUROSEMIDE 20 MG TABLET (FP) PO SCH (11:00)
[2019-03-16] MEDS: CHOLECALCIFEROL (VIT D3) 400 UNIT (10 MCG) TABLET PO SCH (11:00)
[2019-03-16] MEDS: ASCORBIC ACID 500 MG TABLET (FP) PO SCH (11:01)
[2019-03-16] MEDS: ARIPiprazole 5 MG TABLET (FP) PO SCH (11:01)
[2019-03-16] MEDS: LISINOPRIL 5 MG TABLET (FP) PO SCH (11:01)
[2019-03-16] MEDS: FERROUS SO4 325 MG TABLET (FP) PO SCH (11:01)
[2019-03-16] MEDS: BENZTROPINE MESYLATE 0.5 MG TABLET (FP) PO SCH (11:02)
[2019-03-16] MEDS: CALCIUM (OYSTER SHELL) 500 MG TABLET (FP) PO SCH (11:02)
--- NOTE | 2019-03-16 12:13 | PN ---
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 vs Vital Signs Period Temp Pulse Resp BP Sys/Stock Pulse Ox Last 24 Hr 98.3 F-98.6 F 84-101 20-20 100-122/65-72 Gen: NAD, awake, alert, oriented x3 HEENT: NC/AT< MARCELA, sclera anicteric, MMM, LUNG: R anterior breath sounds diminished; good inspiratory effort, no rales or wheezes CARD: RRR no murmurs appreciated ABD: Soft, Nt/ND normoactive BS, no caput medusa, no guarding, no nodularity with liver palpation EXT: no edema strong pulses b/l CBC, BMP 03/13/19 07:05 03/13/19 07:05 Assessment and Plan: Right upper lobe mass Mediastinal lymphadenopathy --Biopsy results for RUL obstructing mass pending --Prelim results noted as high-grade dysplasia Metastases to disease Patient is still thinking about his treatment options right now Iron deficient anemia stable on iron therapy Type 2 DM on coverage Atrial fibrillation --Continue Toprol XL 100mg BID PO --Continue Cardizem 30mg TID PO Hx of HTN stable Schizophrenia history Pt will need psych consult for determination of insight into Ca treatment and medical-decision making which may be impaired by prolonged stay and schizophrenia at this juncture of his hospital stay. Hx of HLD Hx of CAD without stents Visit type - Emergency Visit Emergency Visit: Yes ED Registration Date: 03/07/19 Care time: The patient presented to the Emergency Department on the above date and was hospitalized for further evaluation of their emergent condition. - New Patient This patient is new to me today: No - Critical Care Critical Care patient: No - Discharge Referral Referred to [facility] Med P.C.: No
--- NOTE | 2019-03-16 12:18 | PN ---
Progress Note, Physician History of Present Illness: stable mri results noted - Current Medication List Current Medications: Active Medications Aripiprazole (Abilify) 5 mg PO DAILY [facility] Last Admin: 03/16/19 11:01 Dose: 5 mg Ascorbic Acid (Vitamin C -) 500 mg PO DAILY [facility] Last Admin: 03/16/19 11:01 Dose: 500 mg Benztropine Mesylate (Cogentin -) 0.5 mg PO DAILY [facility] Last Admin: 03/16/19 11:02 Dose: 0.5 mg Calcium Carbonate (Os-Davey 500mg -) 500 mg PO DAILY [facility] Last Admin: 03/16/19 11:02 Dose: 500 mg Cholecalciferol (Vitamin D3 -) 400 unit PO DAILY [facility] Last Admin: 03/16/19 11:00 Dose: 400 unit Diltiazem HCl (Cardizem -) 30 mg PO TID [facility] Last Admin: 03/16/19 06:26 Dose: 30 mg Enoxaparin Sodium (Lovenox -) 80 mg SQ Q12H [facility] Last Admin: 03/16/19 06:26 Dose: 80 mg Ferrous Sulfate (Feosol -) 325 mg PO DAILY [facility] Last Admin: 03/16/19 11:01 Dose: 325 mg Furosemide (Lasix -) 20 mg PO DAILY [facility] Last Admin: 03/16/19 11:00 Dose: 20 mg Insulin Aspart (Novolog Vial Sliding Scale -) 1 vial SQ ACHS [facility]; Protocol Last Admin: 03/16/19 11:55 Dose: Not Given Lisinopril (Prinivil) 2.5 mg PO DAILY [facility] Last Admin: 03/16/19 11:01 Dose: 2.5 mg Metoprolol Succinate (Toprol Xl -) 100 mg PO BID [facility] Last Admin: 03/16/19 11:01 Dose: 100 mg - Objective Vital Signs: Vital Signs Temperature 98.3 F 03/16/19 06:48 Pulse Rate 84 03/16/19 06:48 Respiratory Rate 20 03/16/19 06:48 Blood Pressure 122/70 03/16/19 06:48 O2 Sat by Pulse Oximetry (%) 96 03/15/19 09:00 Constitutional: Yes: No Distress, Calm Cardiovascular: Yes: S1, S2 Respiratory: Yes: Regular, CTA Bilaterally Gastrointestinal: Yes: Normal Bowel Sounds, Soft Musculoskeletal: Yes: WNL Extremities: Yes: WNL Neurological: Yes: Alert, Oriented Psychiatric: Yes: Alert, Oriented Labs: CBC, BMP 03/13/19 07:05 03/13/19 07:05 INR, PTT INR 1.18 (0.83-1.09) H 03/11/19 07:05 Assessment/Plan Problem List - Problems (1) CAD (coronary artery disease) Code(s): I25.10 - ATHSCL HEART DISEASE OF [place] CORONARY ARTERY W/O ANG PCTRS (2) Mass of upper lobe of right lung Code(s): R91.8 - OTHER NONSPECIFIC ABNORMAL FINDING OF LUNG FIELD (3) Mediastinal lymphadenopathy Code(s): R59.0 - LOCALIZED ENLARGED LYMPH NODES (4) Pleural effusion Code(s): J90 - PLEURAL EFFUSION, NOT ELSEWHERE CLASSIFIED (5) 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 male with PMH of DM, AFIB, CAD, HLD, anemia, Rt foot OM, and schizophrenia sent from [facility] due to abnormal CXR and indeterminate Quantiferon result and dry cough RUL/apical lung lesion - erosion into T3/rib r/o TB/malignancy b/l pleural effusions mediastinal/hilar KAYLYN DM CAD AFIB Anemia Schizophrenia plan continue current mgmt plan for further mgmt
--- NOTE | 2019-03-16 12:50 | PN ---
Progress Note, Physician History of Present Illness: pulmonary alert,comfortable,-sob - Current Medication List Current Medications: Active Medications Aripiprazole (Abilify) 5 mg PO DAILY [facility] Last Admin: 03/16/19 11:01 Dose: 5 mg Ascorbic Acid (Vitamin C -) 500 mg PO DAILY [facility] Last Admin: 03/16/19 11:01 Dose: 500 mg Benztropine Mesylate (Cogentin -) 0.5 mg PO DAILY [facility] Last Admin: 03/16/19 11:02 Dose: 0.5 mg Calcium Carbonate (Os-Davey 500mg -) 500 mg PO DAILY [facility] Last Admin: 03/16/19 11:02 Dose: 500 mg Cholecalciferol (Vitamin D3 -) 400 unit PO DAILY [facility] Last Admin: 03/16/19 11:00 Dose: 400 unit Diltiazem HCl (Cardizem -) 30 mg PO TID [facility] Last Admin: 03/16/19 06:26 Dose: 30 mg Enoxaparin Sodium (Lovenox -) 80 mg SQ Q12H [facility] Last Admin: 03/16/19 06:26 Dose: 80 mg Ferrous Sulfate (Feosol -) 325 mg PO DAILY [facility] Last Admin: 03/16/19 11:01 Dose: 325 mg Furosemide (Lasix -) 20 mg PO DAILY [facility] Last Admin: 03/16/19 11:00 Dose: 20 mg Insulin Aspart (Novolog Vial Sliding Scale -) 1 vial SQ ACHS [facility]; Protocol Last Admin: 03/16/19 11:55 Dose: Not Given Lisinopril (Prinivil) 2.5 mg PO DAILY [facility] Last Admin: 03/16/19 11:01 Dose: 2.5 mg Metoprolol Succinate (Toprol Xl -) 100 mg PO BID [facility] Last Admin: 03/16/19 11:01 Dose: 100 mg - Objective Vital Signs: Vital Signs Temperature 98.3 F 03/16/19 06:48 Pulse Rate 84 03/16/19 06:48 Respiratory Rate 20 03/16/19 06:48 Blood Pressure 122/70 03/16/19 06:48 O2 Sat by Pulse Oximetry (%) 96 03/15/19 09:00 Constitutional: Yes: Well Nourished, Calm Eyes: Yes: WNL HENT: Yes: WNL Neck: Yes: WNL Cardiovascular: Yes: Pulse Irregular, S1, S2 Respiratory: Yes: CTA Bilaterally Gastrointestinal: Yes: Normal Bowel Sounds, Soft Extremities: Yes: WNL Edema: No Labs: CBC, BMP 03/13/19 07:05 03/13/19 07:05 INR, PTT INR 1.18 (0.83-1.09) H 03/11/19 07:05 - ....Imaging MRI: Report Reviewed (+ brain mets) Problem List - Problems (1) CAD (coronary artery disease) Code(s): I25.10 - ATHSCL HEART DISEASE OF [place] CORONARY ARTERY W/O ANG PCTRS (2) Mass of upper lobe of right lung Code(s): R91.8 - OTHER NONSPECIFIC ABNORMAL FINDING OF LUNG FIELD (3) Mediastinal lymphadenopathy Code(s): R59.0 - LOCALIZED ENLARGED LYMPH NODES (4) Pleural effusion Code(s): J90 - PLEURAL EFFUSION, NOT ELSEWHERE CLASSIFIED (5) Afib Code(s): I48.91 - UNSPECIFIED ATRIAL FIBRILLATION Qualifiers: Atrial fibrillation type: persistent (6) Anemia Code(s): D64.9 - ANEMIA, UNSPECIFIED Qualifiers: Anemia type: unspecified type Qualified Code(s): D64.9 - Anemia, unspecified (7) HTN (hypertension) Code(s): I10 - ESSENTIAL (PRIMARY) HYPERTENSION Qualifiers: Hypertension type: essential hypertension Qualified Code(s): I10 - Essential (primary) hypertension Assessment/Plan A/P Lung ca with [employer] mets Mediastinal Lymphadenopathy Atrial Fibrillation CAD HTN DM Hyperlipidemia Schizophrenia Anemia - rate control - anticoagulation - as per oncology at this time pts does not want any treatment DR LOO
[2019-03-17] MEDS ORDERED: PT OWN MED DRAWER 7, Y5N ONE ×4 (04:59→20:38)
[2019-03-17] MEDS: ENOXAPARIN NA (PORCINE) 80 MG/0.8 ML DISP.SYRIN SQ SCH ×2 (06:08→17:19)
[2019-03-17] MEDS: INSULIN SLIDING SCALE (NOVOLOG) 1 VIAL SQ SCH ×4 (06:08→23:00)
[2019-03-17] MEDS: dilTIAZem HCL 30 MG TABLET (FP) PO SCH ×3 (06:09→23:00)
[2019-03-17] MEDS: CHOLECALCIFEROL (VIT D3) 400 UNIT (10 MCG) TABLET PO SCH (10:02)
[2019-03-17] MEDS: CALCIUM (OYSTER SHELL) 500 MG TABLET (FP) PO SCH (10:02)
[2019-03-17] MEDS: ASCORBIC ACID 500 MG TABLET (FP) PO SCH (10:02)
[2019-03-17] MEDS: FUROSEMIDE 20 MG TABLET (FP) PO SCH (10:03)
[2019-03-17] MEDS: LISINOPRIL 5 MG TABLET (FP) PO SCH (10:03)
[2019-03-17] MEDS: FERROUS SO4 325 MG TABLET (FP) PO SCH (10:03)
[2019-03-17] MEDS: BENZTROPINE MESYLATE 0.5 MG TABLET (FP) PO SCH (10:04)
[2019-03-17] MEDS: ARIPiprazole 5 MG TABLET (FP) PO SCH (10:04)
--- NOTE | 2019-03-17 10:36 | PN ---
Progress Note (short form) - Note Progress Note: PULMONARY Denies shortness of breath or chest pain. Vital Signs Period Temp Pulse Resp BP Sys/Stock Pulse Ox Last 24 Hr 98.4 F-98.7 F 86-93 18-20 96-102/54-60 Gen: NAD at rest Heart: RRR Lung: decreased breath sounds at the bases Abd: soft, nontender Ext: no edema CBC, BMP 03/13/19 07:05 03/13/19 07:05 Active Medications Aripiprazole (Abilify) 5 mg PO DAILY [facility] Last Admin: 03/17/19 10:04 Dose: 5 mg Ascorbic Acid (Vitamin C -) 500 mg PO DAILY [facility] Last Admin: 03/17/19 10:02 Dose: 500 mg Benztropine Mesylate (Cogentin -) 0.5 mg PO DAILY [facility] Last Admin: 03/17/19 10:04 Dose: 0.5 mg Calcium Carbonate (Os-Davey 500mg -) 500 mg PO DAILY [facility] Last Admin: 03/17/19 10:02 Dose: 500 mg Cholecalciferol (Vitamin D3 -) 400 unit PO DAILY [facility] Last Admin: 03/17/19 10:02 Dose: 400 unit Diltiazem HCl (Cardizem -) 30 mg PO TID [facility] Last Admin: 03/17/19 06:09 Dose: 30 mg Enoxaparin Sodium (Lovenox -) 80 mg SQ Q12H [facility] Last Admin: 03/17/19 06:08 Dose: 80 mg Ferrous Sulfate (Feosol -) 325 mg PO DAILY [facility] Last Admin: 03/17/19 10:03 Dose: 325 mg Furosemide (Lasix -) 20 mg PO DAILY [facility] Last Admin: 03/17/19 10:03 Dose: 20 mg Insulin Aspart (Novolog Vial Sliding Scale -) 1 vial SQ ACHS [facility]; Protocol Last Admin: 03/17/19 06:08 Dose: Not Given Lisinopril (Prinivil) 2.5 mg PO DAILY [facility] Last Admin: 03/17/19 10:03 Dose: 2.5 mg Metoprolol Succinate (Toprol Xl -) 100 mg PO BID [facility] Last Admin: 03/17/19 10:03 Dose: 100 mg A/P Metastatic Lung Adenocarcinoma Mediastinal Lymphadenopathy Atrial Fibrillation CAD HTN DM Hyperlipidemia Schizophrenia Anemia - pt deferring tx at this time - completed empiric antibiotics - rate control - continue anticoagulation
--- NOTE | 2019-03-17 18:10 | PN ---
Progress Note (short form) - Note Progress Note: Hospitalist Medicine Pt with flat affect. C/o pain during physical therapy and difficulty with ROM in RLE. Vitals 03/17/19 17:54 Temperature 98.6 F Pulse Rate 88 Respiratory 20 Rate Blood Pressure 104/70 Physical Exam General: in no acute distress, lying in bed HEENT: NCAT, PERRLA neck: supple cardio: S1, S2 RRR. no r/m/g Pulm: CTA b/l. no accessory m usage abdomen: nontender, nondistended MSK: 2/5 ROM in RLE. 4/5 LLE. sensation intact. 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: developer advisor 2-12 grossly intact psych: +flat affect Laboratory Tests 03/17/19 16:18 POC Glucometer 110 Microbiology 03/12/19 20:15 Sputum - Aerosol Induced AFB Smear Concentration - Final 03/10/19 15:01 Nasopharyngeal Swab Respiratory Virus Panel - Final 03/07/19 21:00 Urine For Antigen Detection Legionella Antigen - Final 03/07/19 21:00 Urine For Antigen Detection Streptococcus pneumoniae Antigen (M - Final 03/12/19 20:15 Sputum - Aerosol Induced Mycobacterial Culture - Preliminary Assessment/Plan 68 y/o M from [facility] with hx schizophrenia, MDD, afib, DM, HLD, CAD, with newly diagnosed lung CA; presenting with RUL mass a/w mediastinal KAYLYN, erosion of T3, R 3rd rib and newly dx brain mets. #RUL mass a/w mediastinal LN erosion of T3, R3rd rib, newly dx brain mets -found to have brain mets L cerebellar region, R occipital, + infratentorial chronic infarcts -will need psych eval to determine competency; refusing tx -f/u t-spine, c-spine MRI r/o cord compression -Psych consulted: Dr. Singleton -Onc on board: Dr. Avalos -Palliative on board: Dr. Sharma #DM -c/w ISS, BGM ACHS #schizophrenia, MDD -c/w abilify -c/w cogentin #afib -c/w full dose lovenox -rate control w/ cardiazem, toprol #F/E/N not on ivf continue to follow lytes diabetic/na controlled diet #PPX on full dose lovenox ppx #Dispo cont'd monitoring 8W need to determine capacity for decision making w/ psych, hemeonc <Margy Cabrera - Last Filed: 03/17/19 18:23> - Note Progress Note: Seen and examined; please see resident note for further discussion. Agree with their note including assessment and plan as outlined aside from as supplemented myself. Independently reviewed and verified all [place] historical and PE findings as well as labs and imaging. Discussed at length with resident and consulting services. No cough or SOB; denies CP. Doing well. Told me he thought they removed the mass and he may be cured today; i spoke with him more regarding this and he hexhibits persisting restricted insight. 10 sys ROS done and negative aside from HPI VS, labs, imaging reviewed NAD AAO resting in bed NC AT EOMI PERRLA RRR s1/2 Lungs CTAB, w/ sym exp NT ND +BS CN2-12 wnl, no fnd Normal mood, appropriate behavior No new rashes or skin breakdown noted Trachea midline without lymphadenopathy Independently reviewed images for initial CT. Echo reviewed; biatrial enlargement with mod MV disease noted but non- hemodynamically sig. Low normal LVEF. A/P: MRI pending, discussing with ethics and consulting psychiatry. Lung Mass (Followup pathology; discussed consent with Dr. Sharma. Will need ultimate plan per mario onc with tissue pathology. Overall, the patient has questionable capacity to accept or refuse treatment and should he have the need for ongoing oncologic care this may require ethics consultation and evaluation. Strong smoking history noted). History Schizophrenia (Continue abilify, discussed consent issue) Suspected TB (QTF pending) Overweight (BMI 25; addiction counselor prior to DC) Afib on full-dose lovenox (Metoprolol and cardizem continued for rate control; followup on echo to ensure no reduced EF. Restarted AC) History of diastolic dysfunction (Appears euvolemic at this juncture) History nonobstructing CAD (Noted historical findings, no current sx. No wma on echo and no new ischemic changes on EKG). Chronic iron deficiency anemia with likely component of Anemia of Chronic Disease (Noted iron studies and red cell indices; start PO iron supplementation. Will discuss with heme prior to DC. Unaware of indications for IV iron at this time). Full Code <Miles Antonio - Last Filed: 03/17/19 23:40>
[2019-03-17] MEDS ORDERED: INSULIN (NOVOLOG) ASPART 100 UNITS/ML 10ML VIAL ONE (20:40)
[2019-03-17] MEDS: NYSTATIN 100000 UNIT/GM TOPICAL OINTMENT 15 GM TUBE TP SCH (23:00)
[2019-03-18] MEDS ORDERED: PT OWN MED DRAWER 7, Y5N ONE ×4 (06:00→21:24)
[2019-03-18] MEDS: ENOXAPARIN NA (PORCINE) 80 MG/0.8 ML DISP.SYRIN SQ SCH ×2 (06:29→18:13)
[2019-03-18] MEDS: dilTIAZem HCL 30 MG TABLET (FP) PO SCH ×3 (06:29→22:06)
[2019-03-18] MEDS: INSULIN SLIDING SCALE (NOVOLOG) 1 VIAL SQ SCH ×4 (06:29→22:04)
[2019-03-18 09:03] LABS: BASO % 0.6 % (0-2.0); EOS % 2.3 % (0-4.5); HEMATOCRIT 34.1 % (35.4-49); HEMOGLOBIN 10.7 GM/dL (11.7-16.9); LYMPH % 12.4 % (8-40); MCH 24.6 pg (25.7-33.7); MCHC 31.5 g/dl (32.0-35.9); MEAN CELL VOLUME 78.1 fl (80-96); MEAN PLT VOLUME 7.9 fl (7.5-11.1); MONO % 8.1 % (3.8-10.2); NEUT % 76.6 % (42.8-82.8); PLATELET COUNT 266 K/MM3 (134-434); RBC 4.37 M/mm3 (4.00-5.60); RDW 27.5 % (11.9-15.9); WHITE BLOOD COUNT 9.6 K/mm3 (4.0-10.0)
[2019-03-18 10:04] LABS: ALBUMIN 2.6 g/dl (3.4-5.0); BILIRUBIN,TOTAL 0.3 mg/dL (0.2-1); BLOOD UREA NITROGEN 16.5 mg/dL (7-18); CALCIUM 8.9 mg/dL (8.5-10.1); CREATININE 0.5 mg/dL (0.55-1.3); POTASSIUM 4.4 mmol/L (3.5-5.1); TOT PROT 7.8 g/dl (6.4-8.2)
--- NOTE | 2019-03-18 10:05 | PN ---
Teaching Attending Note Name of Resident: Margy Cabrera ATTENDING PHYSICIAN STATEMENT I saw and evaluated the patient. I reviewed the resident's note and discussed the case with the resident. I agree with the resident's findings and plan as documented. SUBJECTIVE: No complaints. OBJECTIVE: Vital Signs Period Temp Pulse Resp BP Sys/Stock Pulse Ox Last 24 Hr 97.5 F-98.8 F 82-98 20-20 102-109/67-74 HEART: Irregular LUNGS: Clear ABDOMEN: Soft, non-tender, non-distended, normal BS EXTREMITIES: No edema Laboratory Results - last 24 hr 03/17/19 03/17/19 03/18/19 10:59 16:18 06:26 WBC RBC Hgb Hct MCV MCH MCHC RDW Plt Count MPV Absolute Neuts (auto) Neutrophils % Lymphocytes % Monocytes % Eosinophils % Basophils % Nucleated RBC % Sodium Potassium Chloride Carbon Dioxide Anion Gap BUN Creatinine Est GFR (CKD-EPI)AfAm Est GFR (CKD-EPI)NonAf POC Glucometer 178 110 120 Random Glucose Calcium Total Bilirubin AST ALT Alkaline Phosphatase Total Protein Albumin 03/18/19 03/18/19 07:00 07:00 WBC 9.6 RBC 4.37 Hgb 10.7 L Hct 34.1 L MCV 78.1 L MCH 24.6 L MCHC 31.5 L RDW 27.5 H Plt Count 266 MPV 7.9 Absolute Neuts (auto) 7.3 Neutrophils % 76.6 Lymphocytes % 12.4 D Monocytes % 8.1 Eosinophils % 2.3 Basophils % 0.6 Nucleated RBC % 0 Sodium 134 L Potassium 4.4 Chloride 99 Carbon Dioxide 27 Anion Gap 8 BUN 16.5 Creatinine 0.5 L Est GFR (CKD-EPI)AfAm 130.88 Est GFR (CKD-EPI)NonAf 112.92 POC Glucometer Random Glucose 104 Calcium 8.9 Total Bilirubin 0.3 AST 11 L ALT 14 Alkaline Phosphatase 112 Total Protein 7.8 Albumin 2.6 L Current Medications Generic Name Dose Route Start Last Admin Trade Name Freq PRN Reason Stop Dose Admin Aripiprazole 5 mg 03/12/19 10:00 03/17/19 10:04 Abilify PO 5 mg DAILY [facility]ON Administration Ascorbic Acid 500 mg 03/12/19 10:00 03/17/19 10:02 Vitamin C - PO 500 mg DAILY [facility] Administration Benztropine Mesylate 0.5 mg 03/12/19 10:00 03/17/19 10:04 Cogentin - PO 0.5 mg DAILY [facility] Administration Calcium Carbonate 500 mg 03/12/19 10:00 03/17/19 10:02 Os-Davey 500mg - PO 500 mg DAILY [facility] Administration Cholecalciferol 400 unit 03/12/19 10:00 03/17/19 10:02 Vitamin D3 - PO 400 unit DAILY [facility] Administration Diltiazem HCl 30 mg 03/11/19 22:00 03/18/19 06:29 Cardizem - PO 30 mg TID [facility]ONATHON Administration Enoxaparin Sodium 80 mg 03/11/19 18:00 03/18/19 06:29 Lovenox - SQ 80 mg Q12H [facility] Administration Ferrous Sulfate 325 mg 03/12/19 10:00 03/17/19 10:03 Feosol - PO 325 mg DAILY [facility] Administration Furosemide 20 mg 03/12/19 10:00 03/17/19 10:03 Lasix - PO 20 mg DAILY [facility] Administration Insulin Aspart 1 vial 03/11/19 16:30 03/18/19 06:29 Novolog Vial Sliding Scale - SQ Not Given ACHS [facility] Protocol Lisinopril 2.5 mg 03/12/19 10:00 03/17/19 10:03 Prinivil PO 2.5 mg DAILY [facility] Administration Metoprolol Succinate 100 mg 03/11/19 22:00 03/17/19 23:00 Toprol Xl - PO 100 mg BID [facility] Administration Nystatin 1 applic 03/17/19 22:00 03/17/19 23:00 Mycostatin Ointment - TP 1 applic BID [facility]ONATHON Administration ASSESSMENT AND PLAN: This is a 68 year old man with a history of schizophrenia, MDD, atrial fib, type 2 DM, HTN, hyperlipidemia, CAD who was sent to the ED from [facility] for evaluation of a RUL lung mass. 1. Lung cancer with brain metastases - Patient has refused treatment - Awaiting psych eval for capacity 2. Type 2 DM - Continue Novolog sliding scale 3. Atrial fib, permanent - Rate controlled - Continue Toprol XL, Cardizem, Lovenox - Change Lovenox to Xarelto if no procedures planned 4. CAD 5. HTN - Continue lisinopril, Toprol XL, Cardizem, Lasix 6. Hyperlipidemia 7. Schizophrenia/major depressive disorder - Continue Abilify
--- NOTE | 2019-03-18 10:23 | PN ---
Progress Note (short form) - Note Progress Note: PULMONARY Denies shortness of breath or chest pain. Vital Signs Period Temp Pulse Resp BP Sys/Stock Pulse Ox Last 24 Hr 97.5 F-98.8 F 82-98 20-20 102-109/67-74 Gen: NAD at rest Heart: RRR Lung: decreased breath sounds at the bases Abd: soft, nontender Ext: no edema CBC, BMP 03/18/19 07:00 03/18/19 07:00 Active Medications Aripiprazole (Abilify) 5 mg PO DAILY [facility] Last Admin: 03/17/19 10:04 Dose: 5 mg Ascorbic Acid (Vitamin C -) 500 mg PO DAILY [facility] Last Admin: 03/17/19 10:02 Dose: 500 mg Benztropine Mesylate (Cogentin -) 0.5 mg PO DAILY [facility] Last Admin: 03/17/19 10:04 Dose: 0.5 mg Calcium Carbonate (Os-Davey 500mg -) 500 mg PO DAILY [facility] Last Admin: 03/17/19 10:02 Dose: 500 mg Cholecalciferol (Vitamin D3 -) 400 unit PO DAILY [facility] Last Admin: 03/17/19 10:02 Dose: 400 unit Diltiazem HCl (Cardizem -) 30 mg PO TID [facility] Last Admin: 03/18/19 06:29 Dose: 30 mg Enoxaparin Sodium (Lovenox -) 80 mg SQ Q12H [facility] Last Admin: 03/18/19 06:29 Dose: 80 mg Ferrous Sulfate (Feosol -) 325 mg PO DAILY [facility] Last Admin: 03/17/19 10:03 Dose: 325 mg Furosemide (Lasix -) 20 mg PO DAILY [facility] Last Admin: 03/17/19 10:03 Dose: 20 mg Insulin Aspart (Novolog Vial Sliding Scale -) 1 vial SQ ACHS [facility]; Protocol Last Admin: 03/18/19 06:29 Dose: Not Given Lisinopril (Prinivil) 2.5 mg PO DAILY [facility] Last Admin: 03/17/19 10:03 Dose: 2.5 mg Metoprolol Succinate (Toprol Xl -) 100 mg PO BID [facility] Last Admin: 03/17/19 23:00 Dose: 100 mg Nystatin (Mycostatin Ointment -) 1 applic TP BID [facility] Last Admin: 03/17/19 23:00 Dose: 1 applic A/P Metastatic Lung Adenocarcinoma Mediastinal Lymphadenopathy Atrial Fibrillation CAD HTN DM Hyperlipidemia Schizophrenia Anemia - pt deferring tx at this time - completed empiric antibiotics - rate control - continue anticoagulation - can continue discussions regarding treatment options as outpt
[2019-03-18 10:42] LABS: ANISOCYTOSIS 2+; PLATELET ESTIMATE NORMAL
--- NOTE | 2019-03-18 10:49 | CON.PSY ---
Psychiatry Consult Chief Complaint: 68 Ywe5ra old Male with a history of SChizophrenia been here since 03/08 seen for Ana gomez for capacityu . apparantly refusding some treatment. Patient olivia i want to have an option to say NO. But, I am takng meds. - Previous Psychiatric Treatment Outpatient: None Inpatient: 2 or more prior admissions - Previous Substance Abuse Treatment Outpatient: None Inpatient: None - Reason for Previous Treatment Reason for Previous Treatment: Psychotic Episode - Current Medications Current Medications: Active Medications Aripiprazole (Abilify) 5 mg PO DAILY [facility] Last Admin: 03/17/19 10:04 Dose: 5 mg Ascorbic Acid (Vitamin C -) 500 mg PO DAILY [facility] Last Admin: 03/17/19 10:02 Dose: 500 mg Benztropine Mesylate (Cogentin -) 0.5 mg PO DAILY [facility] Last Admin: 03/17/19 10:04 Dose: 0.5 mg Calcium Carbonate (Os-Davey 500mg -) 500 mg PO DAILY [facility] Last Admin: 03/17/19 10:02 Dose: 500 mg Cholecalciferol (Vitamin D3 -) 400 unit PO DAILY [facility] Last Admin: 03/17/19 10:02 Dose: 400 unit Diltiazem HCl (Cardizem -) 30 mg PO TID [facility] Last Admin: 03/18/19 06:29 Dose: 30 mg Enoxaparin Sodium (Lovenox -) 80 mg SQ Q12H [facility] Last Admin: 03/18/19 06:29 Dose: 80 mg Ferrous Sulfate (Feosol -) 325 mg PO DAILY [facility] Last Admin: 03/17/19 10:03 Dose: 325 mg Furosemide (Lasix -) 20 mg PO DAILY [facility] Last Admin: 03/17/19 10:03 Dose: 20 mg Insulin Aspart (Novolog Vial Sliding Scale -) 1 vial SQ ACHS [facility]; Protocol Last Admin: 03/18/19 06:29 Dose: Not Given Lisinopril (Prinivil) 2.5 mg PO DAILY [facility] Last Admin: 03/17/19 10:03 Dose: 2.5 mg Metoprolol Succinate (Toprol Xl -) 100 mg PO BID [facility] Last Admin: 03/17/19 23:00 Dose: 100 mg Nystatin (Mycostatin Ointment -) 1 applic TP BID [facility] Last Admin: 03/17/19 23:00 Dose: 1 applic - Allergies Allergies: Allergies Allergy/AdvReac Type Severity Reaction Status Date / Time chlorpromazine Allergy Verified 03/07/19 13:12 [From Thorazine] torazine Allergy Uncoded 03/07/19 13:12 - Current Living Status Usual Living Arrangement: Shelter - Current Mental Status Evaluation Appearance: Well Groomed Attitude: Cooperative - Affect Affect: Constrictive Appropriateness: Appropriate to Content - Mood Mood: Euthymic - Speech/Language Expressive: Coherent - Psychomotor Activity Psychomotor Activity: Slowed - Thought Process Thought Process: Intact - Thought Content Hallucinations: Absent Delusions: Absent - Self Perception Self Perception: No Impairment - Cognition Attention: Alert Orientation: Time Memory, Immediate Recall: Intact Memory, Short Term: 2/3 Memory, Remote with Promptin/3 - Concentration Serial Sevens Intact: No Simple Calculations Intact: Yes - Abstraction Proverb Interpretation: Intact Judgement: Intact - Insight Insight: Intact - Impulse Control Impulse Control: Good Control - Suicidal Ideation Suicidal Ideation: No - Homicidal Ideation Homicidal Ideation: No Assessment/Plan 1) Patient has the Functional capacity to make decisions at this time.
[2019-03-18] MEDS: FERROUS SO4 325 MG TABLET (FP) PO SCH (11:01)
[2019-03-18] MEDS: ARIPiprazole 5 MG TABLET (FP) PO SCH (11:01)
[2019-03-18] MEDS: LISINOPRIL 5 MG TABLET (FP) PO SCH (11:01)
[2019-03-18] MEDS: ASCORBIC ACID 500 MG TABLET (FP) PO SCH (11:01)
[2019-03-18] MEDS: CALCIUM (OYSTER SHELL) 500 MG TABLET (FP) PO SCH (11:01)
[2019-03-18] MEDS: FUROSEMIDE 20 MG TABLET (FP) PO SCH (11:01)
[2019-03-18] MEDS: CHOLECALCIFEROL (VIT D3) 400 UNIT (10 MCG) TABLET PO SCH (11:02)
[2019-03-18] MEDS: BENZTROPINE MESYLATE 0.5 MG TABLET (FP) PO SCH (11:03)
[2019-03-18] MEDS: NYSTATIN 100000 UNIT/GM TOPICAL OINTMENT 15 GM TUBE TP SCH ×2 (11:04→22:06)
--- NOTE | 2019-03-18 11:16 | PN ---
Progress Note, Physician History of Present Illness: stable no new issues - Current Medication List Current Medications: Active Medications Aripiprazole (Abilify) 5 mg PO DAILY [facility] Last Admin: 03/18/19 11:01 Dose: 5 mg Ascorbic Acid (Vitamin C -) 500 mg PO DAILY [facility] Last Admin: 03/18/19 11:01 Dose: 500 mg Benztropine Mesylate (Cogentin -) 0.5 mg PO DAILY [facility] Last Admin: 03/18/19 11:03 Dose: 0.5 mg Calcium Carbonate (Os-Davey 500mg -) 500 mg PO DAILY [facility] Last Admin: 03/18/19 11:01 Dose: 500 mg Cholecalciferol (Vitamin D3 -) 400 unit PO DAILY [facility] Last Admin: 03/18/19 11:02 Dose: 400 unit Diltiazem HCl (Cardizem -) 30 mg PO TID [facility] Last Admin: 03/18/19 06:29 Dose: 30 mg Enoxaparin Sodium (Lovenox -) 80 mg SQ Q12H [facility] Last Admin: 03/18/19 06:29 Dose: 80 mg Ferrous Sulfate (Feosol -) 325 mg PO DAILY [facility] Last Admin: 03/18/19 11:01 Dose: 325 mg Furosemide (Lasix -) 20 mg PO DAILY [facility] Last Admin: 03/18/19 11:01 Dose: 20 mg Insulin Aspart (Novolog Vial Sliding Scale -) 1 vial SQ ACHS [facility]; Protocol Last Admin: 03/18/19 06:29 Dose: Not Given Lisinopril (Prinivil) 2.5 mg PO DAILY [facility] Last Admin: 03/18/19 11:01 Dose: 2.5 mg Metoprolol Succinate (Toprol Xl -) 100 mg PO BID [facility] Last Admin: 03/18/19 11:01 Dose: 100 mg Nystatin (Mycostatin Ointment -) 1 applic TP BID [facility] Last Admin: 03/18/19 11:04 Dose: 1 applic - Objective Vital Signs: Vital Signs Temperature 98.3 F 03/18/19 06:00 Pulse Rate 89 03/18/19 06:00 Respiratory Rate 20 03/18/19 06:00 Blood Pressure 109/72 03/18/19 06:00 O2 Sat by Pulse Oximetry (%) 96 03/17/19 09:00 Constitutional: Yes: No Distress, Calm Respiratory: Yes: Regular, CTA Bilaterally Gastrointestinal: Yes: Normal Bowel Sounds, Soft Musculoskeletal: Yes: WNL Extremities: Yes: WNL Neurological: Yes: Alert, Oriented Psychiatric: Yes: Alert, Oriented Labs: CBC, BMP 03/18/19 07:00 03/18/19 07:00 INR, PTT INR 1.18 (0.83-1.09) H 03/11/19 07:05 Assessment/Plan Problem List - Problems (1) CAD (coronary artery disease) Code(s): I25.10 - ATHSCL HEART DISEASE OF [place] CORONARY ARTERY W/O ANG PCTRS (2) Mass of upper lobe of right lung Code(s): R91.8 - OTHER NONSPECIFIC ABNORMAL FINDING OF LUNG FIELD (3) Mediastinal lymphadenopathy Code(s): R59.0 - LOCALIZED ENLARGED LYMPH NODES (4) Pleural effusion Code(s): J90 - PLEURAL EFFUSION, NOT ELSEWHERE CLASSIFIED (5) 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 male with PMH of DM, AFIB, CAD, HLD, anemia, Rt foot OM, and schizophrenia sent from [facility] due to abnormal CXR and indeterminate Quantiferon result and dry cough RUL/apical lung lesion - erosion into T3/rib r/o TB/malignancy b/l pleural effusions mediastinal/hilar KAYLYN DM CAD AFIB Anemia Schizophrenia plan continue current mgmt plan for further mgmt
--- NOTE | 2019-03-18 17:54 | PN ---
Progress Note (short form) - Note Progress Note: Hospitalist Medicine States that he feels "better today" and "would like to participate in the treatment set for him." Otherwise without complaint. Vitals 03/18/19 16:30 Temperature 99 F Pulse Rate 88 Respiratory 20 Rate Blood Pressure 102/62 Physical Exam General: in no acute distress, lying in bed HEENT: NCAT, PERRLA neck: supple cardio: S1, S2 RRR. no r/m/g Pulm: CTA b/l. no accessory m usage abdomen: nontender, nondistended MSK: 2/5 ROM in RLE. 4/5 LLE. sensation intact. 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: hand winder 2-12 grossly intact Laboratory Tests 03/18/19 03/18/19 07:00 07:00 WBC 9.6 Hgb 10.7 L Hct 34.1 L Plt Count 266 Sodium 134 L Potassium 4.4 Chloride 99 Carbon Dioxide 27 BUN 16.5 Creatinine 0.5 L Random Glucose 104 Microbiology 03/12/19 20:15 Sputum - Aerosol Induced AFB Smear Concentration - Final 03/10/19 15:01 Nasopharyngeal Swab Respiratory Virus Panel - Final 03/07/19 21:00 Urine For Antigen Detection Legionella Antigen - Final 03/07/19 21:00 Urine For Antigen Detection Streptococcus pneumoniae Antigen (M - Final 03/12/19 20:15 Sputum - Aerosol Induced Mycobacterial Culture - Preliminary c-spine, t-spine MRI: -focal bone destruction involving T3 vertebral body -large R paravertebral soft tissue enhancing mass consistent w/ mets -extends into R foramen at T2-T3, T3-T4, T2-T4 -Extradural mass effect with effacement and shift of column, mild cord impingement -healing fx -rest unremarkable, no cord compression. Assessment/Plan 68 y/o M from [facility] with hx schizophrenia, MDD, afib, DM, HLD, CAD, with newly diagnosed lung CA; presenting with RUL mass a/w mediastinal KAYLYN, erosion of T3, R 3rd rib and newly dx brain mets. #RUL mass a/w mediastinal LN erosion of T3, R3rd rib, newly dx brain mets -found to have brain mets L cerebellar region, R occipital, + infratentorial chronic infarcts -per psych eval, pt competent to make own decisions -t-spine/c-spine imaging: (-) for cord compression -Psych consulted: Dr. Singleton -Onc on board: Dr. Avalos -Palliative on board: Dr. Sharma #DM -c/w ISS, BGM ACHS #schizophrenia, MDD -c/w abilify -c/w cogentin #afib -c/w full dose lovenox -rate control w/ cardiazem, toprol #F/E/N not on ivf continue to follow lytes diabetic/na controlled diet #PPX on full dose lovenox ppx #Dispo will need to d/w heme onc but if no interventions planned can be seen as outpt. will d/w SW from [facility]
[2019-03-19] MEDS ORDERED: PT OWN MED DRAWER 7, Y5N ONE ×2 (05:32→09:37)
[2019-03-19] MEDS: dilTIAZem HCL 30 MG TABLET (FP) PO SCH ×2 (05:58→14:52)
[2019-03-19] MEDS: ENOXAPARIN NA (PORCINE) 80 MG/0.8 ML DISP.SYRIN SQ SCH (05:58)
[2019-03-19] MEDS: INSULIN SLIDING SCALE (NOVOLOG) 1 VIAL SQ SCH ×3 (05:59→17:02)
[2019-03-19 08:20] LABS: BASO % 0.9 % (0-2.0); EOS % 2.6 % (0-4.5); HEMOGLOBIN 10.7 GM/dL (11.7-16.9); LYMPH % 11.9 % (8-40); MCH 24.5 pg (25.7-33.7); MCHC 31.4 g/dl (32.0-35.9); MEAN CELL VOLUME 78.1 fl (80-96); MEAN PLT VOLUME 7.8 fl (7.5-11.1); MONO % 5.6 % (3.8-10.2); PLATELET COUNT 256 K/MM3 (134-434); RBC 4.35 M/mm3 (4.00-5.60); WHITE BLOOD COUNT 9.5 K/mm3 (4.0-10.0)
[2019-03-19 08:41] LABS: ALBUMIN 2.7 g/dl (3.4-5.0); BILIRUBIN,TOTAL 0.3 mg/dL (0.2-1); BLOOD UREA NITROGEN 19.2 mg/dL (7-18); CALCIUM 8.9 mg/dL (8.5-10.1); CREATININE 0.6 mg/dL (0.55-1.3); MAGNESIUM 2.1 mg/dL (1.8-2.4); PHOSPHOROUS 3.6 mg/dL (2.5-4.9); POTASSIUM 4.2 mmol/L (3.5-5.1); TOT PROT 7.8 g/dl (6.4-8.2)
[2019-03-19] MEDS: FUROSEMIDE 20 MG TABLET (FP) PO SCH (09:44)
[2019-03-19] MEDS: ASCORBIC ACID 500 MG TABLET (FP) PO SCH (09:45)
[2019-03-19] MEDS: ARIPiprazole 5 MG TABLET (FP) PO SCH (09:45)
[2019-03-19] MEDS: LISINOPRIL 5 MG TABLET (FP) PO SCH (09:45)
[2019-03-19] MEDS: CHOLECALCIFEROL (VIT D3) 400 UNIT (10 MCG) TABLET PO SCH (09:45)
[2019-03-19] MEDS: BENZTROPINE MESYLATE 0.5 MG TABLET (FP) PO SCH (09:45)
[2019-03-19] MEDS: FERROUS SO4 325 MG TABLET (FP) PO SCH (09:45)
[2019-03-19] MEDS: CALCIUM (OYSTER SHELL) 500 MG TABLET (FP) PO SCH (09:45)
[2019-03-19] MEDS: NYSTATIN 100000 UNIT/GM TOPICAL OINTMENT 15 GM TUBE TP SCH (09:47)
--- NOTE | 2019-03-19 11:14 | PN ---
Progress Note, Physician History of Present Illness: stable no new issues - Current Medication List Current Medications: Active Medications Aripiprazole (Abilify) 5 mg PO DAILY [facility] Last Admin: 03/19/19 09:45 Dose: 5 mg Ascorbic Acid (Vitamin C -) 500 mg PO DAILY [facility] Last Admin: 03/19/19 09:45 Dose: 500 mg Benztropine Mesylate (Cogentin -) 0.5 mg PO DAILY [facility] Last Admin: 03/19/19 09:45 Dose: 0.5 mg Calcium Carbonate (Os-Davey 500mg -) 500 mg PO DAILY [facility] Last Admin: 03/19/19 09:45 Dose: 500 mg Cholecalciferol (Vitamin D3 -) 400 unit PO DAILY [facility] Last Admin: 03/19/19 09:45 Dose: 400 unit Diltiazem HCl (Cardizem -) 30 mg PO TID [facility] Last Admin: 03/19/19 05:58 Dose: 30 mg Ferrous Sulfate (Feosol -) 325 mg PO DAILY [facility] Last Admin: 03/19/19 09:45 Dose: 325 mg Furosemide (Lasix -) 20 mg PO DAILY [facility] Last Admin: 03/19/19 09:44 Dose: 20 mg Insulin Aspart (Novolog Vial Sliding Scale -) 1 vial SQ [facility]; Protocol Last Admin: 03/19/19 05:59 Dose: Not Given Lisinopril (Prinivil) 2.5 mg PO DAILY [facility] Last Admin: 03/19/19 09:45 Dose: 2.5 mg Metoprolol Succinate (Toprol Xl -) 100 mg PO BID [facility] Last Admin: 03/19/19 09:45 Dose: 100 mg Nystatin (Mycostatin Ointment -) 1 applic TP BID [facility] Last Admin: 03/19/19 09:47 Dose: 1 applic Rivaroxaban (Xarelto) 20 mg PO DAILY@1800 [facility] - Objective Vital Signs: Vital Signs Temperature 98.6 F 03/19/19 06:00 Pulse Rate 88 03/19/19 06:00 Respiratory Rate 20 03/19/19 06:00 Blood Pressure 94/64 03/19/19 06:00 O2 Sat by Pulse Oximetry (%) 98 03/18/19 21:00 Constitutional: Yes: No Distress, Calm Cardiovascular: Yes: S1, S2 Respiratory: Yes: Regular, CTA Bilaterally Gastrointestinal: Yes: Normal Bowel Sounds, Soft Musculoskeletal: Yes: WNL Extremities: Yes: WNL Neurological: Yes: Alert, Oriented Labs: CBC, BMP 03/19/19 07:50 03/19/19 07:50 INR, PTT INR 1.18 (0.83-1.09) H 03/11/19 07:05 Assessment/Plan Problem List - Problems (1) CAD (coronary artery disease) Code(s): I25.10 - ATHSCL HEART DISEASE OF [place] CORONARY ARTERY W/O ANG PCTRS (2) Mass of upper lobe of right lung Code(s): R91.8 - OTHER NONSPECIFIC ABNORMAL FINDING OF LUNG FIELD (3) Mediastinal lymphadenopathy Code(s): R59.0 - LOCALIZED ENLARGED LYMPH NODES (4) Pleural effusion Code(s): J90 - PLEURAL EFFUSION, NOT ELSEWHERE CLASSIFIED (5) 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 male with PMH of DM, AFIB, CAD, HLD, anemia, Rt foot OM, and schizophrenia sent from [facility] due to abnormal CXR and indeterminate Quantiferon result and dry cough RUL/apical lung lesion - erosion into T3/rib r/o TB/malignancy b/l pleural effusions mediastinal/hilar KAYLYN DM CAD AFIB Anemia Schizophrenia plan continue current mgmt plan for further mgmt
--- NOTE | 2019-03-19 14:29 | PN ---
Teaching Attending Note Name of Resident: Margy Cabrera ATTENDING PHYSICIAN STATEMENT I saw and evaluated the patient. I reviewed the resident's note and discussed the case with the resident. I agree with the resident's findings and plan as documented. SUBJECTIVE: No complaints. OBJECTIVE: Vital Signs Period Temp Pulse Resp BP Sys/Stock Pulse Ox Last 24 Hr 98.6 F-99 F 88-93 20-20 90-102/60-64 98 HEART: Irregular LUNGS: Clear ABDOMEN: Soft, non-tender, non-distended, normal BS EXTREMITIES: No edema Laboratory Results - last 24 hr 03/18/19 03/18/19 03/19/19 18:14 21:18 05:56 WBC RBC Hgb Hct MCV MCH MCHC RDW Plt Count MPV Absolute Neuts (auto) Neutrophils % Lymphocytes % Monocytes % Eosinophils % Basophils % Nucleated RBC % Sodium Potassium Chloride Carbon Dioxide Anion Gap BUN Creatinine Est GFR (CKD-EPI)AfAm Est GFR (CKD-EPI)NonAf POC Glucometer 110 149 117 Random Glucose Calcium Phosphorus Magnesium Total Bilirubin AST ALT Alkaline Phosphatase Total Protein Albumin 03/19/19 03/19/19 03/19/19 07:50 07:50 12:45 WBC 9.5 RBC 4.35 Hgb 10.7 L Hct 34.0 L MCV 78.1 L MCH 24.5 L MCHC 31.4 L RDW 27.0 H Plt Count 256 MPV 7.8 Absolute Neuts (auto) 7.5 Neutrophils % 79.0 Lymphocytes % 11.9 Monocytes % 5.6 Eosinophils % 2.6 Basophils % 0.9 Nucleated RBC % 0 Sodium 134 L Potassium 4.2 Chloride 103 Carbon Dioxide 27 Anion Gap 4 L BUN 19.2 H Creatinine 0.6 Est GFR (CKD-EPI)AfAm 121.43 Est GFR (CKD-EPI)NonAf 104.77 POC Glucometer 107 Random Glucose 113 H Calcium 8.9 Phosphorus 3.6 Magnesium 2.1 Total Bilirubin 0.3 AST 11 L ALT 16 Alkaline Phosphatase 116 Total Protein 7.8 Albumin 2.7 L Current Medications Generic Name Dose Route Start Last Admin Trade Name Freq PRN Reason Stop Dose Admin Aripiprazole 5 mg 03/12/19 10:00 03/19/19 09:45 Abilify PO 5 mg DAILY [facility] Administration Ascorbic Acid 500 mg 03/12/19 10:00 03/19/19 09:45 Vitamin C - PO 500 mg DAILY [facility] Administration Benztropine Mesylate 0.5 mg 03/12/19 10:00 03/19/19 09:45 Cogentin - PO 0.5 mg DAILY [facility] Administration Calcium Carbonate 500 mg 03/12/19 10:00 03/19/19 09:45 Os-Davey 500mg - PO 500 mg DAILY [facility] Administration Cholecalciferol 400 unit 03/12/19 10:00 03/19/19 09:45 Vitamin D3 - PO 400 unit DAILY [facility] Administration Diltiazem HCl 30 mg 03/11/19 22:00 03/19/19 05:58 Cardizem - PO 30 mg TID [facility] Administration Ferrous Sulfate 325 mg 03/12/19 10:00 03/19/19 09:45 Feosol - PO 325 mg DAILY [facility] Administration Furosemide 20 mg 03/12/19 10:00 03/19/19 09:44 Lasix - PO 20 mg DAILY [facility] Administration Insulin Aspart 1 vial 03/11/19 16:30 03/19/19 12:45 Novolog Vial Sliding Scale - SQ Not Given ACHS [facility] Protocol Lisinopril 2.5 mg 03/12/19 10:00 03/19/19 09:45 Prinivil PO 2.5 mg DAILY [facility] Administration Metoprolol Succinate 100 mg 03/11/19 22:00 03/19/19 09:45 Toprol Xl - PO 100 mg BID [facility] Administration Nystatin 1 applic 03/17/19 22:00 03/19/19 09:47 Mycostatin Ointment - TP 1 applic BID [facility] Administration Rivaroxaban 20 mg 03/19/19 18:00 Xarelto PO DAILY@1800 [facility] ASSESSMENT AND PLAN: This is a 68 year old man with a history of schizophrenia, MDD, atrial fib, type 2 DM, HTN, hyperlipidemia, CAD who was sent to the ED from [facility] for evaluation of a RUL lung mass. 1. Lung cancer with brain metastases - Patient now willing to explore treatment options - will follow up with oncology as outpatient 2. Type 2 DM - Continue Novolog sliding scale 3. Atrial fib, permanent - Rate controlled - Continue Toprol XL, Cardizem, Xarelto 4. CAD - Continue Toprol XL 5. HTN - Continue lisinopril, Toprol XL, Cardizem, Lasix 6. Hyperlipidemia 7. Schizophrenia/major depressive disorder - Continue Abilify 8. Disposition - Ok for discharge to [facility]
--- NOTE | 2019-03-19 14:40 | PN ---
Progress Note (short form) - Note Progress Note: PULMONARY Denies shortness of breath or chest pain. Vital Signs Period Temp Pulse Resp BP Sys/Stock Pulse Ox Last 24 Hr 98.6 F-99 F 88-93 20-20 90-102/60-64 98 Gen: NAD at rest Heart: RRR Lung: decreased breath sounds at the bases Abd: soft, nontender Ext: no edema CBC, BMP 03/19/19 07:50 03/19/19 07:50 Active Medications Aripiprazole (Abilify) 5 mg PO DAILY [facility] Last Admin: 03/19/19 09:45 Dose: 5 mg Ascorbic Acid (Vitamin C -) 500 mg PO DAILY [facility] Last Admin: 03/19/19 09:45 Dose: 500 mg Benztropine Mesylate (Cogentin -) 0.5 mg PO DAILY [facility] Last Admin: 03/19/19 09:45 Dose: 0.5 mg Calcium Carbonate (Os-Davey 500mg -) 500 mg PO DAILY [facility] Last Admin: 03/19/19 09:45 Dose: 500 mg Cholecalciferol (Vitamin D3 -) 400 unit PO DAILY [facility] Last Admin: 03/19/19 09:45 Dose: 400 unit Diltiazem HCl (Cardizem -) 30 mg PO TID [facility] Last Admin: 03/19/19 05:58 Dose: 30 mg Ferrous Sulfate (Feosol -) 325 mg PO DAILY [facility] Last Admin: 03/19/19 09:45 Dose: 325 mg Furosemide (Lasix -) 20 mg PO DAILY [facility] Last Admin: 03/19/19 09:44 Dose: 20 mg Insulin Aspart (Novolog Vial Sliding Scale -) 1 vial SQ ACHS [facility]; Protocol Last Admin: 03/19/19 12:45 Dose: Not Given Lisinopril (Prinivil) 2.5 mg PO DAILY [facility] Last Admin: 03/19/19 09:45 Dose: 2.5 mg Metoprolol Succinate (Toprol Xl -) 100 mg PO BID [facility] Last Admin: 03/19/19 09:45 Dose: 100 mg Nystatin (Mycostatin Ointment -) 1 applic TP BID [facility] Last Admin: 03/19/19 09:47 Dose: 1 applic Rivaroxaban (Xarelto) 20 mg PO DAILY@1800 [facility] A/P Metastatic Lung Adenocarcinoma Mediastinal Lymphadenopathy Atrial Fibrillation CAD HTN DM Hyperlipidemia Schizophrenia Anemia - completed empiric antibiotics - rate control - continue anticoagulation - can continue discussions regarding treatment options as outpt
[2019-03-19] MEDS ORDERED: RIVAROXABAN 20 MG TABLET PO SCH (18:00)
[2019-03-19 18:16] VITALS: BP 108/70; PULSE 96; TEMP 98
--- NOTE | 2019-03-19 18:42 | DS ---
Physical Exam: SUBJECTIVE: Patient seen and examined at bedside. OBJECTIVE: Vital Signs Period Temp Pulse Resp BP Sys/Stock Pulse Ox Last 24 Hr 98.0 F-98.6 F 88-96 20-20 90-108/60-72 98-98 Physical Exam General: in no acute distress, lying in bed HEENT: NCAT, PERRLA neck: supple cardio: S1, S2 RRR. no r/m/g Pulm: CTA b/l. no accessory m usage abdomen: nontender, nondistended MSK: 2/5 ROM in RLE. 4/5 LLE. sensation intact. 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: lock stitch channeler 2-12 grossly intact LABS Laboratory Results - last 24 hr 03/18/19 03/19/19 03/19/19 21:18 05:56 07:50 WBC 9.5 RBC 4.35 Hgb 10.7 L Hct 34.0 L MCV 78.1 L MCH 24.5 L MCHC 31.4 L RDW 27.0 H Plt Count 256 MPV 7.8 Absolute Neuts (auto) 7.5 Neutrophils % 79.0 Lymphocytes % 11.9 Monocytes % 5.6 Eosinophils % 2.6 Basophils % 0.9 Nucleated RBC % 0 Sodium Potassium Chloride Carbon Dioxide Anion Gap BUN Creatinine Est GFR (CKD-EPI)AfAm Est GFR (CKD-EPI)NonAf POC Glucometer 149 117 Random Glucose Calcium Phosphorus Magnesium Total Bilirubin AST ALT Alkaline Phosphatase Total Protein Albumin 03/19/19 03/19/19 03/19/19 07:50 12:45 17:01 WBC RBC Hgb Hct MCV MCH MCHC RDW Plt Count MPV Absolute Neuts (auto) Neutrophils % Lymphocytes % Monocytes % Eosinophils % Basophils % Nucleated RBC % Sodium 134 L Potassium 4.2 Chloride 103 Carbon Dioxide 27 Anion Gap 4 L BUN 19.2 H Creatinine 0.6 Est GFR (CKD-EPI)AfAm 121.43 Est GFR (CKD-EPI)NonAf 104.77 POC Glucometer 107 119 Random Glucose 113 H Calcium 8.9 Phosphorus 3.6 Magnesium 2.1 Total Bilirubin 0.3 AST 11 L ALT 16 Alkaline Phosphatase 116 Total Protein 7.8 Albumin 2.7 L Laboratory Tests 03/07/19 03/07/19 03/07/19 16:17 16:17 21:20 WBC 11.3 H Hgb 9.3 L Hct 30.0 L Plt Count 340 PT with INR INR ABG pO2 at Pt Temp 62.5 L ABG HCO3 27.9 H ABG O2 Sat (Measured) 90.0 L Sodium 137 Potassium 5.4 H Carbon Dioxide 33 H Anion Gap 2 L BUN 12.5 Creatinine 0.5 L Iron TIBC Iron Saturation Unsaturated IBC Hep A IgM Ab Confirm Hep Bs Antigen Hep B Core IgM Ab Hepatitis C Ab (EIA) HIV 1&2 Ag/Ab, 4th Gen TB Test (QFT) Nil TB Test (QFT) Mitogen TB Test (QFT) Antigen TB Test (QFT) 03/08/19 03/08/19 03/08/19 06:36 06:36 06:36 WBC 10.3 H Hgb 9.4 L Hct 29.5 L Plt Count 267 D PT with INR 16.60 H INR 1.40 H ABG pO2 at Pt Temp ABG HCO3 ABG O2 Sat (Measured) Sodium Potassium Carbon Dioxide Anion Gap BUN Creatinine Iron TIBC Iron Saturation Unsaturated IBC Hep A IgM Ab Confirm Hep Bs Antigen Hep B Core IgM Ab Hepatitis C Ab (EIA) HIV 1&2 Ag/Ab, 4th Gen Non reactive TB Test (QFT) Nil TB Test (QFT) Mitogen TB Test (QFT) Antigen TB Test (QFT) 03/08/19 03/09/19 03/10/19 06:36 09:10 06:35 WBC 10.9 H 9.1 Hgb 9.5 L 9.2 L Hct 29.8 L 28.8 L Plt Count PT with INR INR ABG pO2 at Pt Temp ABG HCO3 ABG O2 Sat (Measured) Sodium Potassium Carbon Dioxide Anion Gap BUN Creatinine Iron TIBC Iron Saturation Unsaturated IBC Hep A IgM Ab Confirm Negative Hep Bs Antigen Negative Hep B Core IgM Ab Negative Hepatitis C Ab (EIA) >11.0 H HIV 1&2 Ag/Ab, 4th Gen TB Test (QFT) Nil TB Test (QFT) Mitogen TB Test (QFT) Antigen TB Test (QFT) 03/11/19 03/11/19 03/11/19 07:05 07:05 07:15 WBC Hgb Hct Plt Count PT with INR INR 1.18 H ABG pO2 at Pt Temp ABG HCO3 ABG O2 Sat (Measured) Sodium Potassium Carbon Dioxide Anion Gap BUN Creatinine Iron 30 L TIBC 207 L Iron Saturation 14 L Unsaturated IBC 177 L Hep A IgM Ab Confirm Hep Bs Antigen Hep B Core IgM Ab Hepatitis C Ab (EIA) HIV 1&2 Ag/Ab, 4th Gen TB Test (QFT) Nil 0.04 TB Test (QFT) Mitogen >10.00 TB Test (QFT) Antigen 0.25 TB Test (QFT) Negative 03/12/19 07:15 WBC 10.3 H Hgb 9.3 L Hct 29.3 L Plt Count PT with INR INR ABG pO2 at Pt Temp ABG HCO3 ABG O2 Sat (Measured) Sodium Potassium Carbon Dioxide Anion Gap BUN Creatinine Iron TIBC Iron Saturation Unsaturated IBC Hep A IgM Ab Confirm Hep Bs Antigen Hep B Core IgM Ab Hepatitis C Ab (EIA) HIV 1&2 Ag/Ab, 4th Gen TB Test (QFT) Nil TB Test (QFT) Mitogen TB Test (QFT) Antigen TB Test (QFT) Microbiology 03/12/19 20:15 Sputum - Aerosol Induced AFB Smear Concentration - Final 03/10/19 15:01 Nasopharyngeal Swab Respiratory Virus Panel - Final 03/07/19 21:00 Urine For Antigen Detection Legionella Antigen - Final 03/07/19 21:00 Urine For Antigen Detection Streptococcus pneumoniae Antigen (M - Final 03/12/19 20:15 Sputum - Aerosol Induced Mycobacterial Culture - Preliminary Imaging chest CT: 5 x 4.5 x 4.5 cm noncalcified irregular lesion in posterior medial aspect of R pulm apex with partial erosion of the contiguous R lateral border of the T3 vertebral body and R third rib. no gross intraspinal extension seen on the basis of noncontrast imaging. confluent R hilar lymphadenopathy noted. enlarged pretracheal and R paratracheal mediastinal LN are also seen with short axis diameter of 2.9cm. a 1.4x 1 cm polypod lesion is seen within the R mainstem bronchus probably on the basis of transbronchial extension from the contuguous lymphadenopathy. mild upper lobe opacity seen probably on basis of mild obstructive atelectasis. moderate R sided and small to moderate L sided pleural effusions are noted layering posteriorly. there is nonspecific enlargement of the L adrenal gland measuring 2.5 x 1.1cm. healed right rib fx posteriorly RUQ u/s: non-mobile gallstones without sonographic evidence of acute cholecystitis. hepatomegaly, mild fatty liver. R pleural effusion. Brain MRI: 0.7 cm enhancing lesion consistent with metastatic neoplastic dz in the L cerebellar hemisphere. no perilesional edema is seen. a subtle 0.3cm additional neoplastic lesion is noted in the R occipital lobe posteriorly with minimal perilesional edema. smal supratentorial and infratentorial chronic infarcts are noted. C-spine MRI/T-spine MRI: mild degenerative disc disease. no evidence of stenosis. in the thoracic spine there is a R paraspinal soft tissue mass 5.3x 5.3 cm with enhancement. mass is involving the R lateral aspect of T3 vertebral body with abnormal signal intensity identified. bone destruction with R transverse process of T3, right pedicle and probably extending to the Right lamina are present. mass is extending into right lateral aspect of spinal canal with mass effect on thecal sac and slightly displacing the upper thoracic cord towards left. it is extending to T2-T3 and right T3-T4 neural foramen. the right extradural soft tissue mass in the spinal canal is extending from lower T2 down to lower T4 level but os more prominent at T4. no cord compression is evident. Date of Admission:03/07/19 Date of Discharge: 03/19/19 68 y/o M from [facility] with hx schizophrenia, MDD, afib, DM, HLD, CAD, with newly diagnosed lung CA; presenting with RUL mass a/w mediastinal KAYLYN, erosion of T3, R 3rd rib and newly dx brain mets. While pt was in the hospital, he was managed for the following: #RUL mass a/w mediastinal LN erosion of T3, R3rd rib, newly dx brain mets -found to have brain mets L cerebellar region, R occipital, + infratentorial chronic infarcts -per psych eval, pt competent to make own decisions -t-spine/c-spine imaging: (-) for cord compression -Psych consulted: Dr. Singleton -Onc on board: Dr. Avalos; will need to f/u as outpatient to commence tx as pt currently interested in starting -Palliative on board: Dr. Sharma #DM -c/w ISS, BGM ACHS #schizophrenia, MDD -c/w abilify -c/w cogentin #afib -changed from full dose lovenox back to home med of xarelto as no intervention planned as of yet -rate control w/ cardiazem, toprol Minutes to complete discharge: 44 Discharge Summary Problems reviewed: Yes Reason For Visit: TUBERCULOSIS Current Active Problems Abnormal laboratory results for respiratory system (Acute) Mediastinal lymphadenopathy (Acute) Metastatic disease (Acute) Pleural effusion (Acute) 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 (Acute) CAD (coronary artery disease) (Chronic) Mass of upper lobe of right lung (Chronic) Condition: Stable - Instructions Diet, Activity, Other Instructions: You were found to have a mass in the right upper lobe/cancer of your lung with spread to your brain and spine. While you were in the hospital, you were seen by an oncologist or cancer doctor. You will be able to meet with the oncologist after discharge and discuss treatment options for your condition. Medications You are not being discharged on any new medications. Please continue your routine home medications. You will need to have nystatin ointment applied to your backside. Follow up Please follow up with the following doctors upon discharge: -Your primary care doctor- 1 week -The sales exhibitor/oncologist, Dr. Delaney who saw you in the hospital - 1 week to discuss treatment options for your condition If you develop shortness of breath or chest pain, please go to the hospital. Referrals: Ambrocio Mcintosh MD [Primary Care Provider] - 1 Week Carlos Delaney MD [Staff Physician] - 1 Week Disposition: HOME - Home Medications Comprehensive Discharge Medication List: Ambulatory Orders Acetaminophen [Tylenol] 650 mg PO Q6H PRN 09/05/18 Aripiprazole [Abilify -] 5 mg PO DAILY 09/05/18 Furosemide [Lasix] 20 mg PO DAILY 5 Days #5 tablet 12/09/18 Benztropine Mesylate [Cogentin -] 0.5 mg PO DAILY 01/13/19 Insulin Sliding Scale [Novolog Vial Sliding Scale -] 0 unit SQ BID 01/13/19 Rivaroxaban [Xarelto -] 20 mg PO DAILY@1800 #30 tablet 01/16/19 Diltiazem [Cardizem -] 30 mg PO Q8H tablet 02/19/19 Lisinopril [Prinivil] 2.5 mg PO DAILY tablet 02/19/19 Metoprolol Succinate 100 mg PO BID #30 tab.er.24h 02/19/19 Ascorbate Calcium [Vitamin C] 500 mg PO DAILY 03/07/19 Calcium Carbonate/Vitamin D3 [Oystercal-D 500 mg-400 Unit Tb] 1 each PO DAILY Ferrous Sulfate 325 mg PO DAILY 03/07/19 Calcium (Oyster Shell) [Os-Davey 500MG -] 500 mg PO DAILY tablet 03/19/19 Cholecalciferol (Vitamin D3) [Vitamin D -] 400 unit PO DAILY tab 03/19/19 Insulin Sliding Scale [Novolog Vial Sliding Scale -] 1 vial SQ ACHS units 03/19 Nystatin Ointment [Mycostatin Ointment -] 1 applic TP BID #0 applic 03/19/19 This patient is new to me today: No Emergency Visit: No Critical Care patient: No - Discharge Referral Referred to [facility] Med P.C.: No ATTENDING PHYSICIAN STATEMENT I saw and evaluated the patient. I reviewed the resident's note and discussed the case with the resident. I agree with the resident's findings and plan as documented. SUBJECTIVE: OBJECTIVE: ASSESSMENT AND PLAN:
== END 2019-03-19 19:19 | DRG 121 ==
LOC: JER 12:23 → JERBED 18:18 → J8W 20:34
PROVIDERS: ADMIT Internal Medicine; ATTEND Internal Medicine
PROC: 0BB48ZX Excision of Right Upper Lobe Bronchus, Via Natural or Artificial Opening Endoscopic, Diagnostic (ICD-10-PCS; 2019-03-11)
PROC: 0BBC8ZZ Excision of Right Upper Lung Lobe, Via Natural or Artificial Opening Endoscopic (ICD-10-PCS; 2019-03-11)
PROC: 0W3Q8ZZ Control Bleeding in Respiratory Tract, Via Natural or Artificial Opening Endoscopic (ICD-10-PCS; 2019-03-11)
PROC: 0BB38ZX Excision of Right Main Bronchus, Via Natural or Artificial Opening Endoscopic, Diagnostic (ICD-10-PCS; principal; 2019-03-11 13:15)
DX: C34.11 Malignant neoplasm of upper lobe, right bronchus or lung (principal); I25.10 Atherosclerotic heart disease of native coronary artery without angina pectoris; R59.0 Localized enlarged lymph nodes; R91.8 Other nonspecific abnormal finding of lung field; E11.9 Type 2 diabetes mellitus without complications; C79.31 Secondary malignant neoplasm of brain; I48.19 Other persistent atrial fibrillation; I50.30 Unspecified diastolic (congestive) heart failure; F20.9 Schizophrenia, unspecified; E78.5 Hyperlipidemia, unspecified; F32.9 Major depressive disorder, single episode, unspecified; D50.9 Iron deficiency anemia, unspecified; I10 Essential (primary) hypertension
CPT/HCPCS: 36415; 36600; 70553-TC; 71045-TC-FY; 71250-TC; 72142-TC; 72147-TC; 76705-TC; 80048; 80053; 80074; 82728; 82803; 82962; 82977; 83540; 83550; 83735; 84100; 85025; 85027; 85044; 85610; 85730; 86480; 87116; 87206; 87254; 87389; 87899; 88305-TC; 88341-TC; 93005; 93010; 93306-TC; 94760; 97162-GP; 99283-25; A9579

== ENCOUNTER 2019-03-21 12:02 | Inpatient (IN) | payer OTHER ==
--- NOTE | 2019-03-21 12:27 | PDOC ---
History of Present Illness - General Chief Complaint: Back Pain Stated Complaint: Abnormal Lab Results Time Seen by Provider: 03/21/19 12:26 - History of Present Illness Initial Comments: 03/21/19 13:32 68 y/o M from [facility] with hx schizophrenia, MDD, afib, DM, HLD, CAD, with newly diagnosed lung CA; presenting with RUL mass a/w mediastinal KAYLYN, erosion of T3, R 3rd rib and newly dx brain mets here at [facility]. Pt recently discharged from hospital and is now returning for assessment and possible radiation therapy of his T3 spinal lesion. Past History - Past Medical History Allergies/Adverse Reactions: Allergies Allergy/AdvReac Type Severity Reaction Status Date / Time chlorpromazine Allergy Verified 03/07/19 13:12 [From Thorazine] torazine Allergy Uncoded 03/07/19 13:12 Home Medications: Ambulatory Orders Acetaminophen [Tylenol] 650 mg PO Q6H PRN 09/05/18 Aripiprazole [Abilify -] 5 mg PO DAILY 09/05/18 Furosemide [Lasix] 20 mg PO DAILY 5 Days #5 tablet 12/09/18 Benztropine Mesylate [Cogentin -] 0.5 mg PO DAILY 01/13/19 Insulin Sliding Scale [Novolog Vial Sliding Scale -] 0 unit SQ BID 01/13/19 Rivaroxaban [Xarelto -] 20 mg PO DAILY@1800 #30 tablet 01/16/19 Diltiazem [Cardizem -] 30 mg PO Q8H tablet 02/19/19 Lisinopril [Prinivil] 2.5 mg PO DAILY tablet 02/19/19 Metoprolol Succinate 100 mg PO BID #30 tab.er.24h 02/19/19 Ascorbate Calcium [Vitamin C] 500 mg PO DAILY 03/07/19 Calcium Carbonate/Vitamin D3 [Oystercal-D 500 mg-400 Unit Tb] 1 each PO DAILY Ferrous Sulfate 325 mg PO DAILY 03/07/19 Calcium (Oyster Shell) [Os-Davey 500MG -] 500 mg PO DAILY tablet 03/19/19 Cholecalciferol (Vitamin D3) [Vitamin D -] 400 unit PO DAILY tab 03/19/19 Insulin Sliding Scale [Novolog Vial Sliding Scale -] 1 vial SQ ACHS units 03/19 Nystatin Ointment [Mycostatin Ointment -] 1 applic TP BID #0 applic 03/19/19 Anemia: Yes Cancer: Yes (Newly dx lung adenocarcinoma with meds to brain and spine) Cardiac Disorders: Yes (Atrial Fib, CAD) COPD: No CHF: Yes Diabetes: Yes GI Disorders: Yes (gerd) Disorders: No HTN: Yes Hypercholesterolemia: Yes Psychiatric Problems: Yes (schizophrenia, dementia) - Surgical History Abdominal Surgery: Yes (pt would not specify) Orthopedic Surgery: Yes (L knee) - Immunization History Immunization Up to Date: Yes - Psycho Social/Smoking Cessation Hx Smoking History: Unknown if ever smoked Have you smoked in the past 12 months: No Number of Cigarettes Smoked Daily: 3 'Breaking Loose' booklet given: 03/07/19 Hx Alcohol Use: No Drug/Substance Use Hx: No Substance Use Type: None Hx Substance Use Treatment: No Review of Systems - Review of Systems Is the patient limited Bermudian proficient: No Constitutional: No: Chills, Fever, Loss of Appetite, Night Sweats, Weakness, Unintentional Wgt. Loss HEENTM: No: Recent change in vision, Ear Pain, Throat Pain Respiratory: No: Cough, Orthopnea, Shortness of Breath Cardiac (ROS): No: Chest Pain, Lightheadedness, Palpitations, Syncope ABD/GI: No: Constipated, Diarrhea, Nausea, Vomiting, Abdominal cramping : No: Burning, Dysuria, Frequency, Incontinence Musculoskeletal: No: Back Pain, Joint Pain, Muscle Pain Integumentary: No: Erythema, Pruritus, Rash, Sweating Neurological: No: Headache, Numbness, Paresthesia, Tingling, Weakness, Unsteady Gait Endocrine: No: Intolerance to Cold, Intolerance to Heat, Unexplained Weight Loss All Other Systems: Reviewed and Negative *Physical Exam - Physical Exam General Appearance: Yes: Nourished, Appropriately Dressed. No: Apparent Distress HEENT: positive: EOMI, AARON, Normal Voice, Pharynx Normal. negative: Sinus Tenderness Neck: positive: Trachea midline, Supple. negative: Tender, Carotid bruit Respiratory/Chest: positive: Crackles (occasional crackles scattered throughout R>L), Wheezing (rare expiratory wheezes R>L), Other (coarse breath sounds throughout). negative: Respiratory Distress, Accessory Muscle Use, Labored Respiration, Rhonchi Cardiovascular: positive: Regular Rhythm, Regular Rate, S1, S2. negative: Murmur Gastrointestinal/Abdominal: positive: Normal Bowel Sounds, Flat, Soft. negative : Distended, Rebound, Tenderness Musculoskeletal: positive: Normal Inspection, Other (mild tenderness on R paraspinal region and over R ribs ). negative: CVA Tenderness Extremity: positive: Normal Capillary Refill, Normal Inspection, Normal Range of Motion. negative: Tender, Pedal Edema, Swelling, Calf Tenderness Integumentary: positive: Normal Color, Dry, Warm Neurologic: positive: meat selector II-XII NML intact, Fully Oriented, Alert, Normal Mood/ Affect, Other (Motor strength 5/5 throughout EXCEPT RLE 3/5 strength on knee extension). negative: Numbness, Sensory Deficit Deep Tendon Reflexes: Ankle (L): 1+, Ankle (R): 1+, Knee (L): 1+, Knee (R): 3+, Bicep (L): 1+, Bicep (R): 1+, Tricep (L): 1+, Tricep (R): 1+ ED Treatment Course - LABORATORY CBC & Chemistry Diagram: 03/21/19 13:25 03/21/19 13:25 Medical Decision Making - Medical Decision Making 03/21/19 13:46 68 y/o M from [facility] with hx schizophrenia, MDD, afib, DM, HLD, CAD, with newly diagnosed lung CA; presenting with RUL mass a/w mediastinal KAYLYN, erosion of T3, R 3rd rib and newly dx brain mets here at [facility]. Pt recently discharged from hospital and is now returning for assessment and possible radiation therapy of his T3 spinal lesion. - CBC - CMP - PT/ PTT/ INR - EKG - CXR 03/21/19 13:[address] Delaney, there is concern about the T3 spinal lesion and risk of extension and spinal cord compression. Pt will be readmitted for evaluation by Dr. Delaney. Dr. Bose also consulted to evaluate pt for possible radiation therapy. Dr. Mayer also consulted to evaluate pt for any obstructive PNA. Will start pt on decadron 4mg IVPB TID per Dr. Delaney. Pt to be admitted to med-surg Discharge - Admission Yes - Follow up/Referral Referrals: Ambrocio Mcintosh MD [Primary Care Provider] - - Patient Discharge Instructions - Post Discharge Activity
--- NOTE | 2019-03-21 13:09 | PDOC ---
Attending Attestation - Resident Resident Name: Robyn Jean - ED Attending Attestation I have performed the following: I have examined & evaluated the patient, The case was reviewed & discussed with the resident, I agree w/resident's findings & plan, Exceptions are as noted - HPI HPI: 03/21/19 14:19 Mr. Theodore is a 68-year-old male sent for [facility] for admission She has a history of hx schizophrenia, MDD, afib, DM, HLD, CAD, with newly diagnosed lung CA Patient was worked up and initially refused treatment Pt imaging revealed a RUL mass a/w mediastinal KAYLYN, erosion of T3, R 3rd rib, brain mets Although he has no spinal cord compression, review of this lesion reveals that he may develop this Pt sent to the ER for assessment for possible radiation therapy for this T3 spinal lesion Pt has no complaints - Physicial Exam PE: 03/21/19 13:09 GENERAL: The patient is in no acute distress. ENT: Ears normal, nares patent, oropharynx clear without exudates. Moist mucous membranes. NECK: Normal range of motion, supple LUNGS: Breath sounds equal, Crackles through out, faint expiratory wheezing, coarse breath sounds throughout. HEART: Tachycardiac, Regular rhythm, normal S1 and S2 without murmur, rub or gallop. ABDOMEN: Soft, nontender, normoactive bowel sounds. EXTREMITIES: Normal range of motion, no edema. 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 negative: Numbness, Sensory Deficit MUSCULOSKELETAL: Normal Inspection, Other (mild tenderness on R paraspinal region and over R ribs ) SKIN: Warm, Dry, normal turgor, no rashes or lesions noted. 03/21/19 14:26 - Medical Decision Making 03/21/19 14:27 Laboratory Tests 03/21/19 03/21/19 13:25 13:25 WBC 11.1 H Hgb 10.3 L Hct 33.0 L Plt Count 252 PT with INR 16.50 H INR 1.39 H EKG: Sinus tachycardia rate of 101 bpm, axis is normal, intervals are normal, no ST elevation, biphasic T waves V4, V5, T wave inversion V6 Chest x-ray Will admit to hospitalist service Per Dr. Delaney, patient will need Decadron
[2019-03-21] MEDS ORDERED: DEXAMETHASONE SOD PHOSPHATE 4 MG/1 ML VIAL ONE (13:41)
[2019-03-21] MEDS: DEXAMETHASONE SOD PHOSPHATE 20 MG/5 ML VIAL IVPB SCH ×2 (13:44→21:27)
[2019-03-21 13:50] LABS: BASO % 0.9 % (0-2.0); EOS % 1.9 % (0-4.5); HEMOGLOBIN 10.3 GM/dL (11.7-16.9); MCH 24.7 pg (25.7-33.7); MCHC 31.3 g/dl (32.0-35.9); MEAN CELL VOLUME 78.8 fl (80-96); MEAN PLT VOLUME 8.2 fl (7.5-11.1); MONO % 7.5 % (3.8-10.2); NEUT % 79.7 % (42.8-82.8); PLATELET COUNT 252 K/MM3 (134-434); RBC 4.19 M/mm3 (4.00-5.60); RDW 26.5 % (11.9-15.9); WHITE BLOOD COUNT 11.1 K/mm3 (4.0-10.0)
[2019-03-21 14:05] LABS: INR 1.39 (0.83-1.09); PROTHROMBIN TIME (PATIENT) 16.5 SEC (9.7-13.0)
[2019-03-21 14:08] LABS: ACTIVATED PTT 37.9 SECONDS (25.2-36.5)
[2019-03-21 14:50] LABS: ALBUMIN 2.7 g/dl (3.4-5.0); BILIRUBIN,TOTAL 0.3 mg/dL (0.2-1); BLOOD UREA NITROGEN 21.3 mg/dL (7-18); CALCIUM 8.4 mg/dL (8.5-10.1); CREATININE 0.5 mg/dL (0.55-1.3); POTASSIUM 4.1 mmol/L (3.5-5.1); TOT PROT 7.7 g/dl (6.4-8.2)
[2019-03-21] MEDS ORDERED: ACETAMINOPHEN 325 MG TABLET (FP) PO PRN (15:04)
--- NOTE | 2019-03-21 15:07 | HP ---
<Margy Cabrera - Last Filed: 03/21/19 16:45> Hospitalist Medicine Admission 68 y/o M from [facility] with hx schizophrenia, MDD, afib, DM, HLD, CAD, with newly diagnosed lung CA who presented with RUL mass a/w mediastinal KAYLYN, erosion of T3, R 3rd rib and newly dx brain mets. Pt has been sent back to [facility] for possible cord compression concern. Was d/c 03/19. Will start radiation therapy with Dr. Bose and is started on decadron. While pt was in the hospital, he was resistant to tx initially. Now pt is agreeable. At end of last admission, pt was cleared by psych as competent. Otherwise, without complaint. Denies RIDER, fever, chills, SOB, chest pain or pressure, or changes in urinary or bowel function. 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 Travel: No HOME MEDICATIONS: Home Medications Medication Instructions Recorded Acetaminophen [Tylenol] 650 mg PO Q6H PRN 09/05/18 Aripiprazole [Abilify -] 5 mg PO DAILY 09/05/18 Furosemide [Lasix] 20 mg PO DAILY 5 Days #5 tablet 12/09/18 Benztropine Mesylate [Cogentin -] 0.5 mg PO DAILY 01/13/19 Insulin Sliding Scale [Novolog 0 unit SQ BID 01/13/19 Vial Sliding Scale -] Rivaroxaban [Xarelto -] 20 mg PO DAILY@1800 #30 tablet 01/16/19 Diltiazem [Cardizem -] 30 mg PO Q8H tablet 02/19/19 Lisinopril [Prinivil] 2.5 mg PO DAILY tablet 02/19/19 Metoprolol Succinate 100 mg PO BID #30 tab.er.24h 02/19/19 Ascorbate Calcium [Vitamin C] 500 mg PO DAILY 03/07/19 Calcium Carbonate/Vitamin D3 1 each PO DAILY 03/07/19 [Oystercal-D 500 mg-400 Unit Tb] Ferrous Sulfate 325 mg PO DAILY 03/07/19 Calcium (Oyster Shell) [Os-Davey 500 mg PO DAILY tablet 03/19/19 500MG -] Cholecalciferol (Vitamin D3) 400 unit PO DAILY tab 03/19/19 [Vitamin D -] Insulin Sliding Scale [Novolog 1 vial SQ ACHS units 03/19/19 Vial Sliding Scale -] Nystatin Ointment [Mycostatin 1 applic TP BID #0 applic 03/19/19 Ointment -] PHYSICAL EXAMINATION Vital Signs - 24 hr 03/21/19 12:31 Temperature 97.9 F Pulse Rate 116 H Respiratory 18 Rate Blood Pressure 96/75 O2 Sat by Pulse 96 Oximetry (%) Physical Exam General: in no acute distress, lying in bed HEENT: NCAT, PERRLA neck: supple cardio: S1, S2 RRR. no r/m/g Pulm: CTA b/l. no accessory m usage abdomen: nontender, nondistended MSK: 2/5 ROM in RLE. 4/5 LLE. sensation intact. 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 2-12 grossly intact psych: +flat affect Laboratory Results - last 24 hr 03/21/19 03/21/19 03/21/19 13:25 13:25 13:25 WBC 11.1 H RBC 4.19 Hgb 10.3 L Hct 33.0 L MCV 78.8 L MCH 24.7 L MCHC 31.3 L RDW 26.5 H Plt Count 252 MPV 8.2 Absolute Neuts (auto) 8.9 H Neutrophils % 79.7 Lymphocytes % 10.0 Monocytes % 7.5 Eosinophils % 1.9 Basophils % 0.9 Nucleated RBC % 0 PT with INR 16.50 H INR 1.39 H PTT (Actin FS) 37.9 H Sodium 134 L Potassium 4.1 Chloride 101 Carbon Dioxide 30 Anion Gap 3 L BUN 21.3 H Creatinine 0.5 L Est GFR (CKD-EPI)AfAm 130.88 Est GFR (CKD-EPI)NonAf 112.92 Random Glucose 108 H Calcium 8.4 L Total Bilirubin 0.3 AST 11 L ALT 16 Alkaline Phosphatase 108 Total Protein 7.7 Albumin 2.7 L Last admission: Microbiology 03/12/19 20:15 Sputum - Aerosol Induced AFB Smear Concentration - Final 03/10/19 15:01 Nasopharyngeal Swab Respiratory Virus Panel - Final 03/07/19 21:00 Urine For Antigen Detection Legionella Antigen - Final 03/07/19 21:00 Urine For Antigen Detection Streptococcus pneumoniae Antigen (M - Final 03/12/19 20:15 Sputum - Aerosol Induced Mycobacterial Culture - Preliminary Imaging chest CT: 5 x 4.5 x 4.5 cm noncalcified irregular lesion in posterior medial aspect of R pulm apex with partial erosion of the contiguous R lateral border of the T3 vertebral body and R third rib. no gross intraspinal extension seen on the basis of noncontrast imaging. confluent R hilar lymphadenopathy noted. enlarged pretracheal and R paratracheal mediastinal LN are also seen with short axis diameter of 2.9cm. a 1.4x 1 cm polypod lesion is seen within the R mainstem bronchus probably on the basis of transbronchial extension from the contuguous lymphadenopathy. mild upper lobe opacity seen probably on basis of mild obstructive atelectasis. moderate R sided and small to moderate L sided pleural effusions are noted layering posteriorly. there is nonspecific enlargement of the L adrenal gland measuring 2.5 x 1.1cm. healed right rib fx posteriorly RUQ u/s: non-mobile gallstones without sonographic evidence of acute cholecystitis. hepatomegaly, mild fatty liver. R pleural effusion. Brain MRI: 0.7 cm enhancing lesion consistent with metastatic neoplastic dz in the L cerebellar hemisphere. no perilesional edema is seen. a subtle 0.3cm additional neoplastic lesion is noted in the R occipital lobe posteriorly with minimal perilesional edema. smal supratentorial and infratentorial chronic infarcts are noted. C-spine MRI/T-spine MRI: mild degenerative disc disease. no evidence of stenosis. in the thoracic spine there is a R paraspinal soft tissue mass 5.3x 5.3 cm with enhancement. mass is involving the R lateral aspect of T3 vertebral body with abnormal signal intensity identified. bone destruction with R transverse process of T3, right pedicle and probably extending to the Right lamina are present. mass is extending into right lateral aspect of spinal canal with mass effect on thecal sac and slightly displacing the upper thoracic cord towards left. it is extending to T2-T3 and right T3-T4 neural foramen. the right extradural soft tissue mass in the spinal canal is extending from lower T2 down to lower T4 level but os more prominent at T4. no cord compression is evident. ASSESSMENT/PLAN: 68 y/o M from [facility] with hx schizophrenia, MDD, afib, DM, HLD, CAD, with newly diagnosed lung CA who initially presented on last admission with RUL mass a/w mediastinal KAYLYN, erosion of T3, R 3rd rib and newly dx brain mets. Pt has returned for concern of cord compression. #RUL mass a/w mediastinal LN erosion of T3, R3rd rib, newly dx brain mets -new concern for cord compression, will start on radiation therapy -started on IV decadron 4mg IVPB TID, per onc -Rad onc: Dr. Bose -Onc: Dr. Avalos #DM -c/w ISS, BGM ACHS #schizophrenia, MDD -c/w abilify -c/w cogentin #afib -placed back on xarelto -rate control w/ cardiazem, toprol #F/E/N does not need IVF continue to follow lytes diabetic/sodium controlled diet #PPX DVT: on xarelto #Dispo admit to med-surg will need radiation therapy Visit type - Emergency Visit Emergency Visit: Yes ED Registration Date: 03/21/19 Care time: The patient presented to the Emergency Department on the above date and was hospitalized for further evaluation of their emergent condition. - New Patient This patient is new to me today: No - Critical Care Critical Care patient: No <Miles Antonio - Last Filed: 03/26/19 02:02> Seen and examined; discussed at length with resident team and indicated consultants. Independently reviewed all [place] historical, PE, diagnostic, and imaging findings. Agree with above documentation and assessment and plan as documented by resident aside from as supplemented below. No acute neuro symptoms;' discussed with Nayla HAYNES and appears the same as day of DC. Sent back from OR due to concerns based on imaging findings. Examination is stable. Allergies chlorpromazine [From Thorazine] Allergy (Verified 03/07/19 13:12) torazine Allergy (Uncoded 03/07/19 13:12) HOME MEDICATIONS: Home Medications Medication Instructions Recorded Acetaminophen [Tylenol] 650 mg PO Q6H PRN 09/05/18 Aripiprazole [Abilify -] 5 mg PO DAILY 09/05/18 Furosemide [Lasix] 20 mg PO DAILY 5 Days #5 tablet 12/09/18 Benztropine Mesylate [Cogentin -] 0.5 mg PO DAILY 01/13/19 Insulin Sliding Scale [Novolog 0 unit SQ BID 01/13/19 Vial Sliding Scale -] Rivaroxaban [Xarelto -] 20 mg PO DAILY@1800 #30 tablet 01/16/19 Diltiazem [Cardizem -] 30 mg PO Q8H tablet 02/19/19 Lisinopril [Prinivil] 2.5 mg PO DAILY tablet 02/19/19 Metoprolol Succinate 100 mg PO BID #30 tab.er.24h 02/19/19 Ascorbate Calcium [Vitamin C] 500 mg PO DAILY 03/07/19 Calcium Carbonate/Vitamin D3 1 each PO DAILY 03/07/19 [Oystercal-D 500 mg-400 Unit Tb] Ferrous Sulfate 325 mg PO DAILY 03/07/19 Calcium (Oyster Shell) [Os-Davey 500 mg PO DAILY tablet 03/19/19 500MG -] Cholecalciferol (Vitamin D3) 400 unit PO DAILY tab 03/19/19 [Vitamin D -] Insulin Sliding Scale [Novolog 1 vial SQ ACHS units 03/19/19 Vial Sliding Scale -] Nystatin Ointment [Mycostatin 1 applic TP BID #0 applic 03/19/19 Ointment -] REVIEW OF SYSTEMS 10 sys ROS done and negative aside from HPI. Should note that patient is an unreliable historian. PHYSICAL EXAMINATION Vital Signs - 24 hr 03/21/19 03/21/19 03/21/19 12:31 17:05 20:41 Temperature 97.9 F 98.4 F 98.4 F Pulse Rate 116 H 100 H Pulse Rate [ 83 Right Radial] Respiratory 18 20 Rate Blood Pressure 96/75 103/67 Blood Pressure 108/80 [Right Arm] O2 Sat by Pulse 96 97 Oximetry (%) 03/22/19 01:00 Temperature 98.8 F Pulse Rate 97 H Pulse Rate [ Right Radial] Respiratory 20 Rate Blood Pressure 139/60 Blood Pressure [Right Arm] O2 Sat by Pulse Oximetry (%) GENERAL: Awake, alert, and fully oriented, in no acute distress. HEAD: Normal with no signs of trauma. EYES: Pupils equal, round and reactive to light, extraocular movements intact, sclera anicteric, conjunctiva clear. No lid lag. EARS, NOSE, THROAT: Ears normal, nares patent, oropharynx clear without exudates. Moist mucous membranes. NECK: Normal range of motion, supple without lymphadenopathy, JVD, or masses. LUNGS: Breath sounds equal, clear to auscultation bilaterally. No wheezes, and no crackles. No accessory muscle use. HEART: Regular rate and rhythm, normal S1 and S2 without murmur, rub or gallop. ABDOMEN: Soft, nontender, not distended, normoactive bowel sounds, no guarding, no rebound, no masses. No hepatomegaly or splenomegaly. MUSCULOSKELETAL: Normal range of motion at all joints. No bony deformities or tenderness. No CVA tenderness. UPPER EXTREMITIES: 2+ pulses, warm, well-perfused. No cyanosis. No clubbing. No peripheral edema. LOWER EXTREMITIES: 2+ pulses, warm, well-perfused. No calf tenderness. No peripheral edema. NEUROLOGICAL: Cranial nerves II-XII intact. Normal speech. Normal gait. PSYCHIATRIC: Cooperative. Good eye contact. Appropriate mood and affect. SKIN: Warm, dry, normal turgor, no rashes or lesions noted, normal capillary refill. Laboratory Results - last 24 hr 03/21/19 03/21/19 03/21/19 13:25 13:25 13:25 WBC 11.1 H RBC 4.19 Hgb 10.3 L Hct 33.0 L MCV 78.8 L MCH 24.7 L MCHC 31.3 L RDW 26.5 H Plt Count 252 MPV 8.2 Absolute Neuts (auto) 8.9 H Neutrophils % 79.7 Lymphocytes % 10.0 Monocytes % 7.5 Eosinophils % 1.9 Basophils % 0.9 Nucleated RBC % 0 Hypochromia 0 Platelet Estimate Normal Polychromasia 1+ Poikilocytosis 0 Anisocytosis 1+ Microcytosis 1+ Macrocytosis 0 PT with INR 16.50 H INR 1.39 H PTT (Actin FS) 37.9 H Sodium 134 L Potassium 4.1 Chloride 101 Carbon Dioxide 30 Anion Gap 3 L BUN 21.3 H Creatinine 0.5 L Est GFR (CKD-EPI)AfAm 130.88 Est GFR (CKD-EPI)NonAf 112.92 POC Glucometer Random Glucose 108 H Calcium 8.4 L Total Bilirubin 0.3 AST 11 L ALT 16 Alkaline Phosphatase 108 Total Protein 7.7 Albumin 2.7 L 03/21/19 03/22/19 17:40 06:44 WBC RBC Hgb Hct MCV MCH MCHC RDW Plt Count MPV Absolute Neuts (auto) Neutrophils % Lymphocytes % Monocytes % Eosinophils % Basophils % Nucleated RBC % Hypochromia Platelet Estimate Polychromasia Poikilocytosis Anisocytosis Microcytosis Macrocytosis PT with INR INR PTT (Actin FS) Sodium Potassium Chloride Carbon Dioxide Anion Gap BUN Creatinine Est GFR (CKD-EPI)AfAm Est GFR (CKD-EPI)NonAf POC Glucometer 177 151 Random Glucose Calcium Total Bilirubin AST ALT Alkaline Phosphatase Total Protein Albumin A/P: Patient with newly diagnosed poorly differentiated lung CA (oncology and rad onc following) who initially presented on last admission with RUL mass a/w mediastinal KAYLYN, erosion of T3, R 3rd rib and newly dx brain mets. Pt has returned for concern of cord compression -Poorly differentiated metastatic lung cancer with paravertebral mass, vertebral mets, brain mets (cerebellar, occipital) -Foraminal obstruction 2/2 paravertebral mass T2-T3 -Displacement of Spinal Cord, no s/s worsening cord compression -Schizophrenia, questionable decision making capacity -MDD -Hx CAD -Hx Afib -Hx HLD -Hx DM -DVT px -GI px Full Code ATTENDING PHYSICIAN STATEMENT I saw and evaluated the patient. I reviewed the resident's note and discussed the case with the resident. I agree with the resident's findings and plan as documented. SUBJECTIVE: OBJECTIVE: ASSESSMENT AND PLAN:
[2019-03-21 15:22] LABS: ANISOCYTOSIS 1+; MACROCYTOSIS 0; PLATELET ESTIMATE NORMAL
[2019-03-21] MEDS ORDERED: INSULIN SLIDING SCALE (NOVOLOG) 1 VIAL SQ SCH ×2 (16:30)
[2019-03-21] MEDS: INSULIN SLIDING SCALE (NOVOLOG) 1 VIAL SQ SCH ×2 (17:42→21:34)
[2019-03-21] MEDS: RIVAROXABAN 20 MG TABLET PO SCH (17:43)
[2019-03-21] MEDS ORDERED: PT OWN MED DRAWER 7, Y5N ONE (20:51)
[2019-03-21] MEDS: dilTIAZem HCL 30 MG TABLET (FP) PO SCH (21:23)
[2019-03-21] MEDS: NYSTATIN 100000 UNIT/GM TOPICAL OINTMENT 15 GM TUBE TP SCH (21:33)
--- NOTE | 2019-03-21 23:36 | EKG ---
Test Reason : Blood Pressure : / mmHG Vent. Rate : 104 BPM Atrial Rate : 468 BPM P-R Int : 000 ms QRS Dur : 096 ms QT Int : 350 ms P-R-T Axes : 000 075 223 degrees QTc Int : 460 ms ATRIAL FIBRILLATION WITH RAPID VENTRICULAR RESPONSE NONSPECIFIC ST AND T WAVE ABNORMALITY ABNORMAL ECG WHEN COMPARED WITH ECG OF 08-MAR-2019 10:32, NO SIGNIFICANT CHANGE WAS FOUND Confirmed by MD Gill, Marcelo ([id number]) on 03/21/2019 11:36:17 PM Referred By: Confirmed By:Marcelo Garland MD
[2019-03-22] MEDS ORDERED: PT OWN MED DRAWER 7, Y5N ONE ×5 (06:24→21:43)
[2019-03-22] MEDS: dilTIAZem HCL 30 MG TABLET (FP) PO SCH ×3 (06:37→22:21)
[2019-03-22] MEDS: DEXAMETHASONE SOD PHOSPHATE 20 MG/5 ML VIAL IVPB SCH (06:42)
[2019-03-22] MEDS: INSULIN SLIDING SCALE (NOVOLOG) 1 VIAL SQ SCH ×4 (06:45→22:28)
[2019-03-22] MEDS: FERROUS SO4 325 MG TABLET (FP) PO SCH (09:48)
[2019-03-22] MEDS: ASCORBIC ACID 500 MG TABLET (FP) PO SCH (09:48)
[2019-03-22] MEDS: CALCIUM (OYSTER SHELL) 500 MG TABLET (FP) PO SCH (09:48)
[2019-03-22] MEDS: LISINOPRIL 5 MG TABLET (FP) PO SCH (09:48)
[2019-03-22] MEDS: FUROSEMIDE 20 MG TABLET (FP) PO SCH (09:48)
[2019-03-22] MEDS: ARIPiprazole 5 MG TABLET (FP) PO SCH (09:48)
[2019-03-22] MEDS: CHOLECALCIFEROL (VIT D3) 400 UNIT (10 MCG) TABLET PO SCH (09:49)
[2019-03-22] MEDS ORDERED: PATIENT'S OWN MEDICATION (NON-FORMULARY) (Calcium Carbonate/Vitamin D3 [Oystercal-D 500 Mg PO SCH (10:00)
[2019-03-22 10:26] LABS: BASO % 0.4 % (0-2.0); EOS % 0.1 % (0-4.5); HEMATOCRIT 32.3 % (35.4-49); HEMOGLOBIN 10.3 GM/dL (11.7-16.9); LYMPH % 7.1 % (8-40); MCH 25.2 pg (25.7-33.7); MEAN CELL VOLUME 78.8 fl (80-96); MEAN PLT VOLUME 8.9 fl (7.5-11.1); MONO % 3.3 % (3.8-10.2); NEUT % 89.1 % (42.8-82.8); PLATELET COUNT 240 K/MM3 (134-434); RBC 4.09 M/mm3 (4.00-5.60); RDW 25.5 % (11.9-15.9); WHITE BLOOD COUNT 12.2 K/mm3 (4.0-10.0)
[2019-03-22 10:38] LABS: INR 1.52 (0.83-1.09)
[2019-03-22 10:40] LABS: ACTIVATED PTT 39.2 SECONDS (25.2-36.5)
[2019-03-22 10:48] LABS: BLOOD UREA NITROGEN 19.1 mg/dL (7-18); CALCIUM 8.7 mg/dL (8.5-10.1); CREATININE 0.4 mg/dL (0.55-1.3); MAGNESIUM 2.1 mg/dL (1.8-2.4); POTASSIUM 4.5 mmol/L (3.5-5.1)
--- NOTE | 2019-03-22 11:24 | CON.PULM ---
Consult Consult Specialty:: PULMONARY Referred by:: Dr Mitchell Reason for Consultation:: lung ca - History of Present Illness Chief Complaint: lung ca History of Present Illness: 68yo male with h/o DM, CAD, atrial fibrillation, hyperlipidemia, schizophrenia, recently diagnosed metastatic lung cancer who was transferred from the senior care for further work up for impending spinal cord compression. He denies shortness of breath or cough. He was initially reluctant to start treatment of his cancer but now amenable to treatment. 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 Travel: No Home Medications - Allergies Allergies/Adverse Reactions: Allergies Allergy/AdvReac Type Severity Reaction Status Date / Time chlorpromazine Allergy Verified 03/07/19 13:12 [From Thorazine] torazine Allergy Uncoded 03/07/19 13:12 - Home Medications Home Medications: Ambulatory Orders Acetaminophen [Tylenol] 650 mg PO Q6H PRN 09/05/18 Aripiprazole [Abilify -] 5 mg PO DAILY 09/05/18 Furosemide [Lasix] 20 mg PO DAILY 5 Days #5 tablet 12/09/18 Benztropine Mesylate [Cogentin -] 0.5 mg PO DAILY 01/13/19 Insulin Sliding Scale [Novolog Vial Sliding Scale -] 0 unit SQ BID 01/13/19 Rivaroxaban [Xarelto -] 20 mg PO DAILY@1800 #30 tablet 01/16/19 Diltiazem [Cardizem -] 30 mg PO Q8H tablet 02/19/19 Lisinopril [Prinivil] 2.5 mg PO DAILY tablet 02/19/19 Metoprolol Succinate 100 mg PO BID #30 tab.er.24h 02/19/19 Ascorbate Calcium [Vitamin C] 500 mg PO DAILY 03/07/19 Calcium Carbonate/Vitamin D3 [Oystercal-D 500 mg-400 Unit Tb] 1 each PO DAILY Ferrous Sulfate 325 mg PO DAILY 03/07/19 Calcium (Oyster Shell) [Os-Davey 500MG -] 500 mg PO DAILY tablet 03/19/19 Cholecalciferol (Vitamin D3) [Vitamin D -] 400 unit PO DAILY tab 03/19/19 Insulin Sliding Scale [Novolog Vial Sliding Scale -] 1 vial SQ ACHS units 03/19 Nystatin Ointment [Mycostatin Ointment -] 1 applic TP BID #0 applic 03/19/19 Review of Systems - Review of Systems Constitutional: denies: Chills, Fever, Weakness Eyes: denies: Recent Change in Vision HENT: denies: Nasal Congestion, Throat Pain Neck: denies: Stiffness, Tenderness Cardiovascular: denies: Chest Pain, Shortness of Breath Respiratory: denies: Cough, Wheezing Gastrointestinal: denies: Abdominal Pain, Nausea, Vomiting Genitourinary: denies: Dysuria, Hematuria Endocrine: denies: Unexplained Weight Loss Physical Exam Vital Sings: Vital Signs Temperature 98.8 F 03/22/19 09:00 Pulse Rate 94 H 03/22/19 09:00 Respiratory Rate 18 03/22/19 09:00 Blood Pressure 100/60 03/22/19 09:00 O2 Sat by Pulse Oximetry (%) 97 03/21/19 17:05 Constitutional: Yes: Calm Eyes: Yes: Conjunctiva Clear, EOM Intact HENT: Yes: Atraumatic, Normocephalic Neck: Yes: Supple, Trachea Midline Cardiovascular: Yes: Regular Rate and Rhythm Respiratory: Yes: Diminished (decreased breath sounds at the bases) ...Clubbing: No Gastrointestinal: Yes: Normal Bowel Sounds, Soft. No: Tenderness Edema: No Neurological: Yes: Alert, Oriented Labs: CBC, BMP 03/22/19 07:40 03/22/19 07:40 Imaging - Results Chest X-ray: Report Reviewed, Image Reviewed (RUL mass) Problem List - Problems (1) Lung cancer Code(s): C34.90 - MALIGNANT NEOPLASM OF UNSP PART OF UNSP BRONCHUS OR LUNG Assessment/Plan Metastatic Lung Ca to Brain r/o Cord Compression CAD Atrial Fibrillation DM Hyperlipidemia Schizophrenia - continue IV steroids - inhaled bronchodilators - oncology, radiation oncology eval - rate controlled - continue anticoagulation Thank you for this consult Raj Mayer MD
--- NOTE | 2019-03-22 11:26 | PN ---
Progress Note (short form) - Note Progress Note: Patient seen in follow up. No new complaints. Was discharged and re-admitted - unclear why. Denies pain, shortness of breath, or cough.. Doesn't appear to have much insight in his disease. Inpatient Meds reviewed. Current Medications Acetaminophen (Tylenol -) 650 mg PO Q6H PRN PRN Reason: PAIN LEVEL 1-5 Aripiprazole (Abilify) 5 mg PO DAILY [facility] Last Admin: 03/22/19 09:48 Dose: 5 mg Ascorbic Acid (Vitamin C -) 500 mg PO DAILY [facility] Last Admin: 03/22/19 09:48 Dose: 500 mg Benztropine Mesylate (Cogentin -) 0.5 mg PO DAILY [facility] Calcium Carbonate (Os-Davey 500mg -) 500 mg PO DAILY [facility] Last Admin: 03/22/19 09:48 Dose: 500 mg Cholecalciferol (Vitamin D3 -) 400 unit PO DAILY [facility] Last Admin: 03/22/19 09:49 Dose: 400 unit Dexamethasone Sodium Phosphate (Decadron Injection -) 4 mg IVPB TID [facility] Last Admin: 03/22/19 06:42 Dose: 4 mg Diltiazem HCl (Cardizem -) 30 mg PO TID [facility] Last Admin: 03/22/19 06:37 Dose: 30 mg Ferrous Sulfate (Feosol -) 325 mg PO DAILY [facility] Last Admin: 03/22/19 09:48 Dose: 325 mg Furosemide (Lasix -) 20 mg PO DAILY [facility] Last Admin: 03/22/19 09:48 Dose: 20 mg Insulin Aspart (Novolog Vial Sliding Scale -) 1 vial SQ [facility]; Protocol Last Admin: 03/22/19 06:45 Dose: 2 units Lisinopril (Prinivil) 2.5 mg PO DAILY [facility] Last Admin: 03/22/19 09:48 Dose: 2.5 mg Metoprolol Succinate (Toprol Xl -) 100 mg PO BID [facility] Last Admin: 03/22/19 09:49 Dose: 100 mg Nystatin (Mycostatin Ointment -) 1 applic TP BID [facility] Last Admin: 03/21/19 21:33 Dose: 1 applic Rivaroxaban (Xarelto) 20 mg PO DAILY@1800 [facility] Last Admin: 03/21/19 17:43 Dose: 20 mg On Examination: Last Vital Signs Temp Pulse Resp BP Pulse Ox 98.8 F 94 H 18 100/60 97 03/22/19 09:00 03/22/19 09:00 03/22/19 09:00 03/22/19 09:00 03/21/19 17:05 General: In no acute distress, lying comfortably in bed. Extremities: No pallor or icterus. No pedal edema. No palpable lymphadenopathy. CVS: S1, S2, regular, no gallop or murmur. Chest: good air entry bilaterally, clear Abdomen: Non-distended, non-tender, no palpable organomegaly. Neuro: Alert, responsive. Labs: CBC, BMP 03/22/19 07:40 03/22/19 07:40 Assessment. Newly diagnosed metastatic NSCLC, with a paraspinal lesion, and a mass in the R bronchus (et al), admitted for consideration of radiation of said lesions. Good performance status, but treatment barbara be complicated by his impaired decision making ability (schizophrenic). Amenable to treatment at this time. Awaiting radiation. Thereafter will address systemic chemotherapy.
[2019-03-22] MEDS: BENZTROPINE MESYLATE 0.5 MG TABLET (FP) PO SCH (11:47)
[2019-03-22] MEDS: NYSTATIN 100000 UNIT/GM TOPICAL OINTMENT 15 GM TUBE TP SCH ×2 (11:47→22:23)
--- NOTE | 2019-03-22 12:34 | PN ---
Progress Note, Physician History of Present Illness: patient seen and examined at bedside. Pending radiation oncology consult. Denies nausea vomiting fever chills chest pain or neurological symptoms. Get some shortness of breath with exertion. Denies all symptoms on all systems review except as noted above. - Current Medication List Current Medications: Active Medications Acetaminophen (Tylenol -) 650 mg PO Q6H PRN PRN Reason: PAIN LEVEL 1-5 Aripiprazole (Abilify) 5 mg PO DAILY [facility] Last Admin: 03/22/19 09:48 Dose: 5 mg Ascorbic Acid (Vitamin C -) 500 mg PO DAILY [facility] Last Admin: 03/22/19 09:48 Dose: 500 mg Benztropine Mesylate (Cogentin -) 0.5 mg PO DAILY [facility] Last Admin: 03/22/19 11:47 Dose: 0.5 mg Calcium Carbonate (Os-Davey 500mg -) 500 mg PO DAILY [facility] Last Admin: 03/22/19 09:48 Dose: 500 mg Cholecalciferol (Vitamin D3 -) 400 unit PO DAILY [facility] Last Admin: 03/22/19 09:49 Dose: 400 unit Dexamethasone Sodium Phosphate (Decadron Injection -) 4 mg IVPB TID [facility] Last Admin: 03/22/19 06:42 Dose: 4 mg Diltiazem HCl (Cardizem -) 30 mg PO TID [facility] Last Admin: 03/22/19 06:37 Dose: 30 mg Ferrous Sulfate (Feosol -) 325 mg PO DAILY [facility] Last Admin: 03/22/19 09:48 Dose: 325 mg Furosemide (Lasix -) 20 mg PO DAILY [facility] Last Admin: 03/22/19 09:48 Dose: 20 mg Insulin Aspart (Novolog Vial Sliding Scale -) 1 vial SQ [facility]; Protocol Last Admin: 03/22/19 12:01 Dose: 2 units Lisinopril (Prinivil) 2.5 mg PO DAILY [facility] Last Admin: 03/22/19 09:48 Dose: 2.5 mg Metoprolol Succinate (Toprol Xl -) 100 mg PO BID [facility] Last Admin: 03/22/19 09:49 Dose: 100 mg Nystatin (Mycostatin Ointment -) 1 applic TP BID [facility] Last Admin: 03/22/19 11:47 Dose: 1 applic Rivaroxaban (Xarelto) 20 mg PO DAILY@1800 [facility] Last Admin: 03/21/19 17:43 Dose: 20 mg - Objective Vital Signs: Vital Signs Temperature 98.8 F 03/22/19 09:00 Pulse Rate 94 H 03/22/19 09:00 Respiratory Rate 18 03/22/19 09:00 Blood Pressure 100/60 03/22/19 09:00 O2 Sat by Pulse Oximetry (%) 97 03/21/19 17:05 Constitutional: Yes: Well Nourished, No Distress, Calm Eyes: Yes: Conjunctiva Clear, EOM Intact HENT: Yes: Atraumatic Neck: Yes: Supple Cardiovascular: Yes: Pulse Irregular Respiratory: Yes: Regular, CTA Bilaterally Gastrointestinal: Yes: Soft. No: Distention, Tenderness Musculoskeletal: Yes: Other (muscle strength 5/5 in all extremities. No sensory deficits). No: Muscle Weakness Edema: No Neurological: Yes: Alert. No: Numbness, Weakness ...Motor Strength: WNL Psychiatric: Yes: Alert Labs: CBC, BMP 03/22/19 07:40 03/22/19 07:40 INR, PTT INR 1.52 (0.83-1.09) H 03/22/19 07:40 - ....Imaging Chest X-ray: Report Reviewed Impression/Plan Impression/Plan: 68M with PMH of schizophrenia, MDD, afib, DM, HLD, CAD, with newly diagnosed lung CA with RUL mass mediastinal KAYLYN, erosion of T3, R 3rd rib and newly diagnosed brain mets. Pt has returned for concern of possible impending cord compression. Lung Ca with mets continue decadron agreeable to treatment f/u radiation oncology for evaluation f/u oncology DM Controlled ISS BGM ACHS Psych schizophrenia, MDD abilify cogentin afib continue xarelto rate is 90-100 continue cardiazem and metoprolol PPX DVT: on xarelto GI: Start PPI while on steroids Visit type - Emergency Visit Emergency Visit: Yes ED Registration Date: 03/21/19 Care time: The patient presented to the Emergency Department on the above date and was hospitalized for further evaluation of their emergent condition. - New Patient This patient is new to me today: Yes Date on this admission: 03/22/19 - Critical Care Critical Care patient: No
[2019-03-22] MEDS: DEXAMETHASONE SOD PHOSPHATE 10 MG/1 ML VIAL IVPB SCH ×2 (13:07→22:21)
[2019-03-22] MEDS: PANTOPRAZOLE 40 MG TABLET (FP) PO SCH (13:07)
[2019-03-22] MEDS: RIVAROXABAN 20 MG TABLET PO SCH (17:23)
[2019-03-23] MEDS: DEXAMETHASONE SOD PHOSPHATE 10 MG/1 ML VIAL IVPB SCH (06:24)
[2019-03-23] MEDS: dilTIAZem HCL 30 MG TABLET (FP) PO SCH ×3 (06:25→21:59)
[2019-03-23] MEDS: INSULIN SLIDING SCALE (NOVOLOG) 1 VIAL SQ SCH ×4 (06:28→22:00)
[2019-03-23] MEDS ORDERED: PT OWN MED DRAWER 7, Y5N ONE ×3 (09:26→21:01)
[2019-03-23] MEDS: FUROSEMIDE 20 MG TABLET (FP) PO SCH (09:30)
[2019-03-23] MEDS: LISINOPRIL 5 MG TABLET (FP) PO SCH (09:30)
[2019-03-23] MEDS: ARIPiprazole 5 MG TABLET (FP) PO SCH (09:31)
[2019-03-23 09:32] LABS: BASO % 0.3 % (0-2.0); HEMATOCRIT 32.3 % (35.4-49); HEMOGLOBIN 10.4 GM/dL (11.7-16.9); LYMPH % 5.5 % (8-40); MCH 25.2 pg (25.7-33.7); MCHC 32.1 g/dl (32.0-35.9); MEAN CELL VOLUME 78.4 fl (80-96); MEAN PLT VOLUME 8.7 fl (7.5-11.1); MONO % 2.8 % (3.8-10.2); NEUT % 91.4 % (42.8-82.8); PLATELET COUNT 253 K/MM3 (134-434); RBC 4.12 M/mm3 (4.00-5.60); RDW 25.8 % (11.9-15.9); WHITE BLOOD COUNT 14.9 K/mm3 (4.0-10.0)
[2019-03-23] MEDS: CHOLECALCIFEROL (VIT D3) 400 UNIT (10 MCG) TABLET PO SCH (09:32)
[2019-03-23] MEDS: FERROUS SO4 325 MG TABLET (FP) PO SCH (09:32)
[2019-03-23] MEDS: CALCIUM (OYSTER SHELL) 500 MG TABLET (FP) PO SCH (09:32)
[2019-03-23] MEDS: ASCORBIC ACID 500 MG TABLET (FP) PO SCH (09:32)
[2019-03-23] MEDS: PANTOPRAZOLE 40 MG TABLET (FP) PO SCH (09:32)
[2019-03-23] MEDS: NYSTATIN 100000 UNIT/GM TOPICAL OINTMENT 15 GM TUBE TP SCH ×2 (09:33→21:59)
[2019-03-23] MEDS: BENZTROPINE MESYLATE 0.5 MG TABLET (FP) PO SCH (09:42)
[2019-03-23 09:50] LABS: BLOOD UREA NITROGEN 20.9 mg/dL (7-18); CALCIUM 8.6 mg/dL (8.5-10.1); CREATININE 0.5 mg/dL (0.55-1.3); POTASSIUM 4.3 mmol/L (3.5-5.1)
[2019-03-23 10:38] LABS: ANISOCYTOSIS 2+
--- NOTE | 2019-03-23 12:10 | PN ---
Progress Note (short form) - Note Progress Note: PULMONARY Denies shortness of breath or chest pain. Vital Signs Period Temp Pulse Resp BP Sys/Stock Pulse Ox Last 24 Hr 98 F-98.4 F 89-99 17-20 96-116/65-74 95 Gen: NAD at rest Heart: RRR Lung: decreased breath sounds at the bases Abd: soft, nontender Ext: no edema CBC, BMP 03/23/19 08:04 03/23/19 08:04 Active Medications Acetaminophen (Tylenol -) 650 mg PO Q6H PRN PRN Reason: PAIN LEVEL 1-5 Aripiprazole (Abilify) 5 mg PO DAILY [facility] Last Admin: 03/23/19 09:31 Dose: 5 mg Ascorbic Acid (Vitamin C -) 500 mg PO DAILY [facility] Last Admin: 03/23/19 09:32 Dose: 500 mg Benztropine Mesylate (Cogentin -) 0.5 mg PO DAILY [facility] Last Admin: 03/23/19 09:42 Dose: 0.5 mg Calcium Carbonate (Os-Davey 500mg -) 500 mg PO DAILY [facility] Last Admin: 03/23/19 09:32 Dose: 500 mg Cholecalciferol (Vitamin D3 -) 400 unit PO DAILY [facility] Last Admin: 03/23/19 09:32 Dose: 400 unit Dexamethasone Sodium Phosphate (Decadron Injection -) 4 mg IVPB TID [facility] Last Admin: 03/23/19 06:24 Dose: 4 mg Diltiazem HCl (Cardizem -) 30 mg PO TID [facility] Last Admin: 03/23/19 06:25 Dose: 30 mg Ferrous Sulfate (Feosol -) 325 mg PO DAILY [facility] Last Admin: 03/23/19 09:32 Dose: 325 mg Furosemide (Lasix -) 20 mg PO DAILY [facility] Last Admin: 03/23/19 09:30 Dose: Not Given Insulin Aspart (Novolog Vial Sliding Scale -) 1 vial SQ ACHS [facility]; Protocol Last Admin: 03/23/19 06:28 Dose: 2 units Lisinopril (Prinivil) 2.5 mg PO DAILY [facility] Last Admin: 03/23/19 09:30 Dose: Not Given Metoprolol Succinate (Toprol Xl -) 100 mg PO BID [facility] Last Admin: 03/23/19 09:31 Dose: Not Given Nystatin (Mycostatin Ointment -) 1 applic TP BID [facility] Last Admin: 03/23/19 09:33 Dose: 1 applic Pantoprazole Sodium (Protonix -) 40 mg PO DAILY [facility] Last Admin: 03/23/19 09:32 Dose: 40 mg Rivaroxaban (Xarelto) 20 mg PO DAILY@1800 [facility] Last Admin: 03/22/19 17:23 Dose: 20 mg A/P Metastatic Lung Ca to Brain r/o Cord Compression CAD Atrial Fibrillation DM Hyperlipidemia Schizophrenia - continue IV steroids - inhaled bronchodilators - radiation oncology eval - rate controlled - continue anticoagulation Problem List - Problems (1) Lung cancer Code(s): C34.90 - MALIGNANT NEOPLASM OF UNSP PART OF UNSP BRONCHUS OR LUNG
[2019-03-23] MEDS ORDERED: INSULIN (NOVOLOG) ASPART 100 UNITS/ML 10ML VIAL ONE (12:39)
[2019-03-23] MEDS ORDERED: DEXAMETHASONE SOD PHOSPHATE 10 MG/1 ML VIAL IVPUSH SCH (12:53)
--- NOTE | 2019-03-23 12:53 | PN ---
Progress Note, Physician History of Present Illness: patient seen and examined at bedside. Pending radiation oncology consult. I spoke with patient and asked him if he was still interested in getting radiation treatment and patient responded "I am not interested in any experiment except sexual intercourse". Unsure if patient has insight into his illness. Denies nausea vomiting fever chills chest pain or neurological symptoms. Get some shortness of breath with exertion. Denies all symptoms on all systems review except as noted above. - Current Medication List Current Medications: Active Medications Acetaminophen (Tylenol -) 650 mg PO Q6H PRN PRN Reason: PAIN LEVEL 1-5 Aripiprazole (Abilify) 5 mg PO DAILY [facility] Last Admin: 03/23/19 09:31 Dose: 5 mg Ascorbic Acid (Vitamin C -) 500 mg PO DAILY [facility] Last Admin: 03/23/19 09:32 Dose: 500 mg Benztropine Mesylate (Cogentin -) 0.5 mg PO DAILY [facility] Last Admin: 03/23/19 09:42 Dose: 0.5 mg Calcium Carbonate (Os-Davey 500mg -) 500 mg PO DAILY [facility] Last Admin: 03/23/19 09:32 Dose: 500 mg Cholecalciferol (Vitamin D3 -) 400 unit PO DAILY [facility] Last Admin: 03/23/19 09:32 Dose: 400 unit Diltiazem HCl (Cardizem -) 30 mg PO TID [facility] Last Admin: 03/23/19 06:25 Dose: 30 mg Ferrous Sulfate (Feosol -) 325 mg PO DAILY [facility] Last Admin: 03/23/19 09:32 Dose: 325 mg Furosemide (Lasix -) 20 mg PO DAILY [facility] Last Admin: 03/23/19 09:30 Dose: Not Given Insulin Aspart (Novolog Vial Sliding Scale -) 1 vial SQ [facility]; Protocol Last Admin: 03/23/19 12:41 Dose: 2 units Lisinopril (Prinivil) 2.5 mg PO DAILY [facility] Last Admin: 03/23/19 09:30 Dose: Not Given Metoprolol Succinate (Toprol Xl -) 100 mg PO BID [facility] Last Admin: 03/23/19 09:31 Dose: Not Given Nystatin (Mycostatin Ointment -) 1 applic TP BID [facility] Last Admin: 03/23/19 09:33 Dose: 1 applic Pantoprazole Sodium (Protonix -) 40 mg PO DAILY [facility] Last Admin: 03/23/19 09:32 Dose: 40 mg Rivaroxaban (Xarelto) 20 mg PO DAILY@1800 [facility] Last Admin: 03/22/19 17:23 Dose: 20 mg - Objective Vital Signs: Vital Signs Temperature 98 F 03/23/19 07:28 Pulse Rate 89 03/23/19 07:28 Respiratory Rate 20 03/23/19 07:28 Blood Pressure 116/65 03/23/19 07:28 O2 Sat by Pulse Oximetry (%) 95 03/22/19 21:00 Constitutional: Yes: Well Nourished, No Distress, Calm Eyes: Yes: Conjunctiva Clear, EOM Intact HENT: Yes: Atraumatic Neck: Yes: Supple Cardiovascular: Yes: Pulse Irregular Respiratory: Yes: Regular, diminished breath sounds otherwise CTAB Gastrointestinal: Yes: Soft. No: Distention, Tenderness Musculoskeletal: Yes: Other (muscle strength 5/5 in all extremities. No sensory deficits). No: Muscle Weakness Edema: No Neurological: Yes: Alert. No: Numbness, Weakness ...Motor Strength: WNL Psychiatric: Yes: Alert Labs: CBC, BMP 03/23/19 08:04 03/23/19 08:04 INR, PTT INR 1.52 (0.83-1.09) H 03/22/19 07:40 Impression/Plan Impression/Plan: 68M with PMH of schizophrenia, MDD, afib, DM, HLD, CAD, with newly diagnosed lung CA with RUL mass mediastinal KAYLYN, erosion of T3, R 3rd rib and newly diagnosed brain mets. Pt has returned for concern of possible impending cord compression. Lung Ca with mets continue decadron today i am unsure if patient is still agreeable to treatment. Unsure about his insight into his illness. May need psych consult. f/u radiation oncology for evaluation f/u oncology DM Controlled ISS BGM ACHS Psych schizophrenia, MDD abimaxx little afib continue xarelto rate is 90-100 continue cardiazem and metoprolol PPX DVT: on xarelto GI: continue PPI while on steroids Visit type - Emergency Visit Emergency Visit: Yes ED Registration Date: 03/21/19 Care time: The patient presented to the Emergency Department on the above date and was hospitalized for further evaluation of their emergent condition. - New Patient This patient is new to me today: No - Critical Care Critical Care patient: No
--- NOTE | 2019-03-23 14:24 | PN ---
Progress Note (short form) - Note Progress Note: Patient seen in follow up. No new complaints. Was discharged and re-admitted - unclear why. Denies pain, shortness of breath, or cough.. Doesn't appear to have much insight in his disease. Inpatient Meds reviewed. Current Medications Generic Name Dose Route Start Last Admin Trade Name Freq PRN Reason Stop Dose Admin Acetaminophen 650 mg 03/21/19 15:04 Tylenol - PO Q6H PRN PAIN LEVEL 1-5 Aripiprazole 5 mg 03/22/19 10:00 03/23/19 09:31 Abilify PO 5 mg DAILY [facility]ONATHON Administration Ascorbic Acid 500 mg 03/22/19 10:00 03/23/19 09:32 Vitamin C - PO 500 mg DAILY [facility]ON Administration Benztropine Mesylate 0.5 mg 03/22/19 10:00 03/23/19 09:42 Cogentin - PO 0.5 mg DAILY [facility]ON Administration Calcium Carbonate 500 mg 03/22/19 10:00 03/23/19 09:32 Os-Davey 500mg - PO 500 mg DAILY [facility]ON Administration Cholecalciferol 400 unit 03/22/19 10:00 03/23/19 09:32 Vitamin D3 - PO 400 unit DAILY [facility] Administration Dexamethasone Sodium Phosphate 4 mg 03/23/19 12:53 Decadron Injection - IVPUSH TID [facility] Diltiazem HCl 30 mg 03/21/19 22:00 03/23/19 06:25 Cardizem - PO 30 mg TID [facility]ON Administration Ferrous Sulfate 325 mg 03/22/19 10:00 03/23/19 09:32 Feosol - PO 325 mg DAILY [facility] Administration Furosemide 20 mg 03/22/19 10:00 03/23/19 09:30 Lasix - PO Not Given DAILY [facility] Insulin Aspart 1 vial 03/21/19 16:30 03/23/19 12:41 Novolog Vial Sliding Scale - SQ 2 units ACHS [facility]ON Administration Protocol Lisinopril 2.5 mg 03/22/19 10:00 03/23/19 09:30 Prinivil PO Not Given DAILY [facility] Metoprolol Succinate 100 mg 03/21/19 22:00 03/23/19 09:31 Toprol Xl - PO Not Given BID [facility] Nystatin 1 applic 03/21/19 22:00 03/23/19 09:33 Mycostatin Ointment - TP 1 applic BID [facility] Administration Pantoprazole Sodium 40 mg 03/22/19 12:45 03/23/19 09:32 Protonix - PO 40 mg DAILY [facility] Administration Rivaroxaban 20 mg 03/21/19 18:00 03/22/19 17:23 Xarelto PO 20 mg DAILY@1800 [facility] Administration On Examination: Last Vital Signs Temp Pulse Resp BP Pulse Ox 98 F 89 20 116/65 95 03/23/19 07:28 03/23/19 07:28 03/23/19 07:28 03/23/19 07:28 03/22/19 21:00 General: In no acute distress, lying comfortably in bed. Extremities: No pallor or icterus. No pedal edema. No palpable lymphadenopathy. CVS: S1, S2, regular, no gallop or murmur. Chest: good air entry bilaterally, clear Abdomen: Non-distended, non-tender, no palpable organomegaly. Neuro: Alert, responsive. Labs: CBC, BMP 03/23/19 08:04 03/23/19 08:04 Assessment. Newly diagnosed metastatic NSCLC, with a paraspinal lesion, and a mass in the R bronchus (et al), admitted for consideration of radiation of said lesions. Good performance status, but treatment barbara be complicated by his impaired decision making ability (schizophrenic). Amenable to treatment at this time. Awaiting radiation. Thereafter will address systemic chemotherapy. Not iron deficient - stop oral iron. can reduce steroids to BID.
[2019-03-23] MEDS: RIVAROXABAN 20 MG TABLET PO SCH (17:53)
[2019-03-23] MEDS: DEXAMETHASONE SOD PHOSPHATE 4 MG/1 ML VIAL IVPUSH SCH (21:59)
[2019-03-24] MEDS ORDERED: PT OWN MED DRAWER 7, Y5N ONE ×2 (05:51→22:17)
[2019-03-24] MEDS: dilTIAZem HCL 30 MG TABLET (FP) PO SCH ×3 (06:02→22:18)
[2019-03-24] MEDS: INSULIN SLIDING SCALE (NOVOLOG) 1 VIAL SQ SCH ×4 (06:04→22:15)
[2019-03-24 08:26] LABS: HEMATOCRIT 33.7 % (35.4-49); HEMOGLOBIN 10.9 GM/dL (11.7-16.9); MCH 25.1 pg (25.7-33.7); MCHC 32.4 g/dl (32.0-35.9); MEAN CELL VOLUME 77.6 fl (80-96); MEAN PLT VOLUME 8.2 fl (7.5-11.1); PLATELET COUNT 253 K/MM3 (134-434); RBC 4.33 M/mm3 (4.00-5.60); RDW 26.1 % (11.9-15.9)
[2019-03-24 09:08] LABS: BLOOD UREA NITROGEN 24.3 mg/dL (7-18); CREATININE 0.6 mg/dL (0.55-1.3); POTASSIUM 4.2 mmol/L (3.5-5.1)
--- NOTE | 2019-03-24 09:52 | PN ---
Progress Note (short form) - Note Progress Note: Denies shortness of breath or chest pain. No acute events overnight. Intake & Output 03/21/19 03/22/19 03/23/19 03/24/19 23:59 23:59 23:59 23:59 Intake Total 150 580 240 120 Output Total 550 Balance 150 30 240 120 Weight 169 lb 165 lb 8 oz 165 lb 168 lb 4.8 oz Last Vital Signs Temp Pulse Resp BP Pulse Ox 98.1 F 86 20 106/70 97 03/24/19 06:00 03/24/19 06:00 03/24/19 06:00 03/24/19 06:00 03/23/19 21:00 Active Medications Acetaminophen (Tylenol -) 650 mg PO Q6H PRN PRN Reason: PAIN LEVEL 1-5 Aripiprazole (Abilify) 5 mg PO DAILY [facility] Last Admin: 03/23/19 09:31 Dose: 5 mg Ascorbic Acid (Vitamin C -) 500 mg PO DAILY [facility] Last Admin: 03/23/19 09:32 Dose: 500 mg Benztropine Mesylate (Cogentin -) 0.5 mg PO DAILY [facility] Last Admin: 03/23/19 09:42 Dose: 0.5 mg Calcium Carbonate (Os-Davey 500mg -) 500 mg PO DAILY [facility] Last Admin: 03/23/19 09:32 Dose: 500 mg Cholecalciferol (Vitamin D3 -) 400 unit PO DAILY [facility] Last Admin: 03/23/19 09:32 Dose: 400 unit Dexamethasone Sodium Phosphate (Decadron Injection -) 4 mg IVPUSH BID [facility] Last Admin: 03/23/19 21:59 Dose: 4 mg Diltiazem HCl (Cardizem -) 30 mg PO TID [facility] Last Admin: 03/24/19 06:02 Dose: 30 mg Furosemide (Lasix -) 20 mg PO DAILY [facility] Last Admin: 03/23/19 09:30 Dose: Not Given Insulin Aspart (Novolog Vial Sliding Scale -) 1 vial SQ ACHS [facility]; Protocol Last Admin: 03/24/19 06:04 Dose: 2 units Lisinopril (Prinivil) 2.5 mg PO DAILY [facility] Last Admin: 03/23/19 09:30 Dose: Not Given Metoprolol Succinate (Toprol Xl -) 100 mg PO BID [facility] Last Admin: 03/23/19 21:59 Dose: 100 mg Nystatin (Mycostatin Ointment -) 1 applic TP BID [facility] Last Admin: 03/23/19 21:59 Dose: 1 applic Pantoprazole Sodium (Protonix -) 40 mg PO DAILY [facility] Last Admin: 03/23/19 09:32 Dose: 40 mg Rivaroxaban (Xarelto) 20 mg PO DAILY@1800 [facility] Last Admin: 03/23/19 17:53 Dose: 20 mg Gen: NAD at rest Heart: RRR Lung: decreased breath sounds at the bases Abd: soft, nontender Ext: no edema Laboratory Results - last 24 hr 03/23/19 03/23/19 03/23/19 08:04 12:37 17:54 WBC RBC Hgb Hct MCV MCH MCHC RDW Plt Count MPV Neutrophils % (Manual) 91.0 H Band Neutrophils % 0.0 Lymphocytes % (Manual) 3.0 L Monocytes % (Manual) 5 Eosinophils % (Manual) 0.0 Basophils % (Manual) 0.0 Myelocytes % (Man) 0 Promyelocytes % (Man) 0 Blast Cells % (Manual) 0 Metamyelocytes 0 Anisocytosis 2+ Sodium Potassium Chloride Carbon Dioxide Anion Gap BUN Creatinine Est GFR (CKD-EPI)AfAm Est GFR (CKD-EPI)NonAf POC Glucometer 192 145 Random Glucose Calcium 03/23/19 03/24/19 03/24/19 21:58 06:03 07:10 WBC 16.0 H RBC 4.33 Hgb 10.9 L Hct 33.7 L MCV 77.6 L MCH 25.1 L MCHC 32.4 RDW 26.1 H Plt Count 253 MPV 8.2 Neutrophils % (Manual) Band Neutrophils % Lymphocytes % (Manual) Monocytes % (Manual) Eosinophils % (Manual) Basophils % (Manual) Myelocytes % (Man) Promyelocytes % (Man) Blast Cells % (Manual) Metamyelocytes Anisocytosis Sodium Potassium Chloride Carbon Dioxide Anion Gap BUN Creatinine Est GFR (CKD-EPI)AfAm Est GFR (CKD-EPI)NonAf POC Glucometer 158 161 Random Glucose Calcium 03/24/19 07:10 WBC RBC Hgb Hct MCV MCH MCHC RDW Plt Count MPV Neutrophils % (Manual) Band Neutrophils % Lymphocytes % (Manual) Monocytes % (Manual) Eosinophils % (Manual) Basophils % (Manual) Myelocytes % (Man) Promyelocytes % (Man) Blast Cells % (Manual) Metamyelocytes Anisocytosis Sodium 132 L Potassium 4.2 Chloride 98 Carbon Dioxide 28 Anion Gap 7 L BUN 24.3 H Creatinine 0.6 Est GFR (CKD-EPI)AfAm 121.43 Est GFR (CKD-EPI)NonAf 104.77 POC Glucometer Random Glucose 115 H Calcium 9.0 Problem List - Problems (1) Lung cancer Code(s): C34.90 - MALIGNANT NEOPLASM OF UNSP PART OF UNSP BRONCHUS OR LUNG IMP: Metastatic Lung Ca to Brain r/o Cord Compression CAD Atrial Fibrillation DM Hyperlipidemia Schizophrenia - IV steroids - inhaled bronchodilators - radiation oncology evaluation - rate controlled - continue anticoagulation Dr Luna
--- NOTE | 2019-03-24 10:00 | PN ---
Progress Note (short form) - Note Progress Note: Radiation Oncology (full consult to follow) Pt seen and chart/films reviewed. 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 No change in neurologic function noted on admission. On prior admission, was evaluated by psych for hx of schizophrenia and deemed competent to make decisions. This morning, exam is non focal and he is cooperative; however, unable to maintain a conversation, tangential in thought, and does not appear to have insight to his illness. I explained the role of radiation therapy to reduce tumor burden around the spine and to try to prevent further damage that could lead to weakness, paralysis, pain, fracture, and bowel and bladder dysfunction. He was unable to follow. Would request reevaluation by psych to determine decision making capability at this time, optimization of meds, etc. While patient would benefit from palliative radiation therapy, would await decision by psych, and continue steroids at this time. Recent MRI showed few small brain mets with scant edema. No urgent need to treat those. Discussed with pulmonary team.
[2019-03-24] MEDS: ARIPiprazole 5 MG TABLET (FP) PO SCH (10:02)
--- NOTE | 2019-03-24 10:04 | PN ---
Progress Note (short form) - Note Progress Note: Hospitalist Medicine Discussed plan for radiation therapy with patient. Responded "I like flashlights." Will reconsult psych for clearance Vitals 03/24/19 09:53 Temperature 98.8 F Pulse Rate 95 H Respiratory 20 Rate Blood Pressure 107/72 Physical Exam General: in no acute distress, lying in bed HEENT: NCAT, PERRLA neck: supple cardio: S1, S2 RRR. no r/m/g Pulm: CTA b/l. no accessory m usage abdomen: nontender, nondistended MSK: 2/5 ROM in RLE. 4/5 LLE. sensation intact. 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 tangential thinking Laboratory Results 03/24/19 03/24/19 07:10 07:10 WBC 16.0 H Hgb 10.9 L Hct 33.7 L Plt Count 253 Sodium 132 L Potassium 4.2 Chloride 98 Carbon Dioxide 28 BUN 24.3 H Random Glucose 115 H Last admission: Microbiology 03/12/19 20:15 Sputum - Aerosol Induced AFB Smear Concentration - Final 03/10/19 15:01 Nasopharyngeal Swab Respiratory Virus Panel - Final 03/07/19 21:00 Urine For Antigen Detection Legionella Antigen - Final 03/07/19 21:00 Urine For Antigen Detection Streptococcus pneumoniae Antigen (M - Final 03/12/19 20:15 Sputum - Aerosol Induced Mycobacterial Culture - Preliminary Imaging chest CT: 5 x 4.5 x 4.5 cm noncalcified irregular lesion in posterior medial aspect of R pulm apex with partial erosion of the contiguous R lateral border of the T3 vertebral body and R third rib. no gross intraspinal extension seen on the basis of noncontrast imaging. confluent R hilar lymphadenopathy noted. enlarged pretracheal and R paratracheal mediastinal LN are also seen with short axis diameter of 2.9cm. a 1.4x 1 cm polypod lesion is seen within the R mainstem bronchus probably on the basis of transbronchial extension from the contuguous lymphadenopathy. mild upper lobe opacity seen probably on basis of mild obstructive atelectasis. moderate R sided and small to moderate L sided pleural effusions are noted layering posteriorly. there is nonspecific enlargement of the L adrenal gland measuring 2.5 x 1.1cm. healed right rib fx posteriorly RUQ u/s: non-mobile gallstones without sonographic evidence of acute cholecystitis. hepatomegaly, mild fatty liver. R pleural effusion. Brain MRI: 0.7 cm enhancing lesion consistent with metastatic neoplastic dz in the L cerebellar hemisphere. no perilesional edema is seen. a subtle 0.3cm additional neoplastic lesion is noted in the R occipital lobe posteriorly with minimal perilesional edema. smal supratentorial and infratentorial chronic infarcts are noted. C-spine MRI/T-spine MRI: mild degenerative disc disease. no evidence of stenosis. in the thoracic spine there is a R paraspinal soft tissue mass 5.3x 5.3 cm with enhancement. mass is involving the R lateral aspect of T3 vertebral body with abnormal signal intensity identified. bone destruction with R transverse process of T3, right pedicle and probably extending to the Right lamina are present. mass is extending into right lateral aspect of spinal canal with mass effect on thecal sac and slightly displacing the upper thoracic cord towards left. it is extending to T2-T3 and right T3-T4 neural foramen. the right extradural soft tissue mass in the spinal canal is extending from lower T2 down to lower T4 level but os more prominent at T4. no cord compression is evident. ASSESSMENT/PLAN: 68 y/o M from [facility] with hx schizophrenia, MDD, afib, DM, HLD, CAD, with newly diagnosed lung CA who initially presented on last admission with RUL mass a/w mediastinal KAYLYN, erosion of T3, R 3rd rib and newly dx brain mets. Pt has returned for concern of cord compression. #RUL mass a/w mediastinal LN erosion of T3, R3rd rib, newly dx brain mets -new concern for cord compression, will start on radiation therapy -started on IV decadron 4mg IVPB BID, per onc -have reconsulted psych as questionable capacity -Psych: Dr. Singleton -Rad onc: Dr. Bose -Onc: Dr. Avalos #DM -c/w ISS, BGM ACHS #schizophrenia, MDD -c/w abilify -c/w cogentin #afib -c/w xarelto -rate control w/ cardiazem, toprol #F/E/N does not need IVF continue to follow lytes diabetic/sodium controlled diet #PPX DVT: on xarelto #Dispo will need radiation therapy pending clearance by psych prior <Deborah,Margy - Last Filed: 03/24/19 18:41> - Note Progress Note: Seen and examined; discussed at length with resident team and indicated consultants. Independently reviewed all [place] historical, PE, diagnostic, and imaging findings. Agree with above documentation and assessment and plan as documented by resident aside from as supplemented below. Per my assessment he lacks functional decision making capacity; though he is cognicent of day/time etc, he has a distinct inability to functionally describe the consequences of his actions and he shows a clear flight of ideas with lakc of logical thought progression. FU psych recs and will d/w oncology. Consult Dr. Sharma/ethics if needed. 10 sys ROS done and negative aside from HPI VS labs imaging reviewed NAD, AAO resting in bed Trachea midline no LN. NC AT EOMI PERRLA CTAB, w/ sym exp HR wnl +s1/2 NT ND +BS CN2-12 wnl, no progressive neuro sx Normal mood, appropriate behavior, poor insight, compromised judgment, flight of ideas. No active SI/HI/ A/P: Patient with newly diagnosed poorly differentiated lung CA (oncology and rad onc following) who initially presented on last admission with RUL mass a/w mediastinal KAYLYN, erosion of T3, R 3rd rib and newly dx brain mets. Pt has returned for concern of cord compression and may be treated with radiation therapy. No progressive neuro symptoms today and will followup with psych and rad onc/onc consult and nsgy consult. Continue steroids. -Poorly differentiated metastatic lung cancer with paravertebral mass, vertebral mets, brain mets (cerebellar, occipital) -Foraminal obstruction 2/2 paravertebral mass T2-T3 -Displacement of Spinal Cord, no s/s worsening cord compression -Schizophrenia, questionable decision making capacity -MDD -Hx CAD -Hx Afib -Hx HLD -Hx DM -DVT px -GI px Full Code <Miles Antonio - Last Filed: 03/25/19 01:16>
[2019-03-24] MEDS: PANTOPRAZOLE 40 MG TABLET (FP) PO SCH (10:05)
[2019-03-24] MEDS: FUROSEMIDE 20 MG TABLET (FP) PO SCH (10:05)
[2019-03-24] MEDS: CALCIUM (OYSTER SHELL) 500 MG TABLET (FP) PO SCH (10:05)
[2019-03-24] MEDS: LISINOPRIL 5 MG TABLET (FP) PO SCH (10:06)
[2019-03-24] MEDS: ASCORBIC ACID 500 MG TABLET (FP) PO SCH (10:06)
[2019-03-24] MEDS: DEXAMETHASONE SOD PHOSPHATE 4 MG/1 ML VIAL IVPUSH SCH ×2 (10:07→22:18)
[2019-03-24] MEDS: CHOLECALCIFEROL (VIT D3) 400 UNIT (10 MCG) TABLET PO SCH (10:07)
[2019-03-24] MEDS: NYSTATIN 100000 UNIT/GM TOPICAL OINTMENT 15 GM TUBE TP SCH ×2 (10:07→22:19)
[2019-03-24] MEDS: BENZTROPINE MESYLATE 0.5 MG TABLET (FP) PO SCH (11:58)
[2019-03-24] MEDS: RIVAROXABAN 20 MG TABLET PO SCH (17:07)
--- NOTE | 2019-03-24 17:17 | CONS ---
DATE OF CONSULTATION: 03/24/2019 REFERRING PHYSICIAN: Dwayne Mitchell MD REASON FOR CONSULTATION: Newly diagnosed lung cancer with spinal cord compromise. HISTORY OF PRESENT ILLNESS: Patient is a 68-year-old [facility] resident who was recently admitted with a nonproductive cough and an abnormal chest x-ray. CT of the chest showed a 5-cm right upper lobe/apex mass involving the T3 vertebra and rib. There was right hilar and mediastinal lymphadenopathy, bilateral right greater than left pleural effusion, and an enlarged left adrenal gland. MRI of the brain showed a 7-mm left cerebellar and a 3-mm right occipital lesion suspicious for metastasis. There was minimal edema. There were also multiple chronic infarcts. He underwent a bronchoscopy, which revealed a near obstructing endobronchial tumor in the right main stem bronchus at the right upper lobe take off. Biopsy of the mass showed adenocarcinoma. MRI of the cervical and thoracic spine demonstrated right T3 vertebral destruction by the large paravertebral mass with extension into the spinal canal from T2-T4, displacement of the spinal cord associated with mild impingement but no daja cord compression. On that admission, he was evaluated by psychiatry for history of schizophrenia and deemed to have decision making capacity. [facility] and now readmitted for subsequent management. There was no change in his neurologic function reported on admission. He reports occasional pain in the back but denies numbness, tingling , weakness in the extremities, loss of control of his bowel or bladder function. He denies headache, nausea, blurred vision, however, his competence is questionable this morning. He denies history of radiation therapy. We are asked to evaluate for a role of radiation therapy given the impending cord compression. PAST MEDICAL HISTORY: Diabetes mellitus, hyperlipidemia, atrial fibrillation on anticoagulation, hypertension, left leg osteomyelitis, anemia, schizophrenia. ALLERGIES: CHLORPROMAZINE, THORAZINE. CURRENT MEDICATIONS: Decadron 4 mg b.i.d., lisinopril, Cogentin, Xarelto, Abilify, Toprol XL, Cardizem, Lasix, nystatin ointment, Protonix, calcium carbonate, ascorbic acid, vitamin D, insulin sliding scale. SOCIAL HISTORY: He is a [facility] resident and reports no close family. He is unmarried and reports no children. 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 There is no alcohol use. He had a long history of smoking. FAMILY HISTORY: Denies history of malignancy. REVIEW OF SYSTEMS: See HPI. PHYSICAL EXAMINATION: General: Well appearing, well developed, moderately confused male in no acute distress. Vital Signs: Temperature 98.1, blood pressure 106/70, pulse 86, respiratory rate 20. HEENT: Normocephalic, atraumatic. Moist mucous membranes. Anicteric sclerae. Clear oral cavity. Neck: No mass. Chest: Decreased breath sounds in the right upper lobe with bilateral bibasilar crackles. Chest Wall: No chest wall tenderness. Abdomen: Soft, nontender. Musculoskeletal: No paravertebral tenderness. Neurologic: Awake, alert, oriented to his name and Olympia Fields's but not date or date of . Cranial nerves 2-12 grossly intact. Sensation to light touch is intact. No sensory level. Motor exam 4+/5 IN all 4 extremities. RADIOLOGIC DATA: See HPI. PATHOLOGIC DATA: See HPI. LABORATORY DATA: WBC 16.0, hemoglobin 10.9, platelet count 253,000. Sodium 132 , potassium 4.2, BUN 24.3, creatinine 0.6. 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 PLAN: The patient would be a candidate for palliative radiation therapy to his spine to minimize neurologic compromise due to significant extension to the spinal cord and risk of further cord compression. I reviewed the potential benefits and side effects of treatment as well as the logistics of daily treatment for at least 5 days. He was unable to follow and repeat what we discussed a minute earlier. As such, it is unclear if patient has sufficient insight into his illness and capacity to make a decision at this time. Would request re-evaluation by psychiatry to determine if he has decision making capacity. In the future, he may be a candidate for either stereotactic radiosurgery as well as conservative management for the brain metastases. For now, agree with continuing steroids and follow up psychiatry evaluation to determine future course. I spoke with the pulmonary team and will follow with you. Thank you for asking me to see him. KELSIE ARNOLD M.D. ALEXANDREA/[id number] MTDD
--- NOTE | 2019-03-24 18:37 | CON.PSY ---
Psychiatry Consult Chief Complaint: 68 Ywera 9old Male wiotrh lifelong History of SChizophrenia chronic nad was recently in [facility]. Patent has Lung Ca with METS to Brain. Patient apparantly has become more confused with disorganized thinking and lacks cohesive thinkingt and plans regatding his treatments [id number] forward. Giving conflicting [id number] to treatment according to Nursing straff who care for him. Symptoms: reports: Impaired Concentration, Memory Impairment, Disorganized/ Disruptive Thoughts - Previous Psychiatric Treatment Outpatient: None Inpatient: 2 or more prior admissions - Previous Substance Abuse Treatment Outpatient: None Inpatient: None - Reason for Previous Treatment Reason for Previous Treatment: Psychotic Episode - Current Medications Current Medications: Active Medications Acetaminophen (Tylenol -) 650 mg PO Q6H PRN PRN Reason: PAIN LEVEL 1-5 Aripiprazole (Abilify) 5 mg PO DAILY [facility] Last Admin: 03/24/19 10:02 Dose: 5 mg Ascorbic Acid (Vitamin C -) 500 mg PO DAILY [facility] Last Admin: 03/24/19 10:06 Dose: 500 mg Benztropine Mesylate (Cogentin -) 0.5 mg PO DAILY [facility] Last Admin: 03/24/19 11:58 Dose: 0.5 mg Calcium Carbonate (Os-Davey 500mg -) 500 mg PO DAILY [facility] Last Admin: 03/24/19 10:05 Dose: 500 mg Cholecalciferol (Vitamin D3 -) 400 unit PO DAILY [facility] Last Admin: 03/24/19 10:07 Dose: 400 unit Dexamethasone Sodium Phosphate (Decadron Injection -) 4 mg IVPUSH BID [facility] Last Admin: 03/24/19 10:07 Dose: 4 mg Diltiazem HCl (Cardizem -) 30 mg PO TID [facility] Last Admin: 03/24/19 15:03 Dose: 30 mg Furosemide (Lasix -) 20 mg PO DAILY [facility] Last Admin: 03/24/19 10:05 Dose: 20 mg Insulin Aspart (Novolog Vial Sliding Scale -) 1 vial SQ ACHS [facility]; Protocol Last Admin: 03/24/19 17:06 Dose: 2 units Lisinopril (Prinivil) 2.5 mg PO DAILY [facility] Last Admin: 03/24/19 10:06 Dose: 2.5 mg Metoprolol Succinate (Toprol Xl -) 100 mg PO BID [facility] Last Admin: 03/24/19 10:06 Dose: 100 mg Nystatin (Mycostatin Ointment -) 1 applic TP BID [facility] Last Admin: 03/24/19 10:07 Dose: 1 applic Pantoprazole Sodium (Protonix -) 40 mg PO DAILY [facility] Last Admin: 03/24/19 10:05 Dose: 40 mg Rivaroxaban (Xarelto) 20 mg PO DAILY@1800 [facility] Last Admin: 03/24/19 17:07 Dose: 20 mg - Allergies Allergies: Allergies Allergy/AdvReac Type Severity Reaction Status Date / Time chlorpromazine Allergy Verified 03/07/19 13:12 [From Thorazine] torazine Allergy Uncoded 03/07/19 13:12 - Current Living Status Usual Living Arrangement: Intermediate - Current Mental Status Evaluation Appearance: Disheveled Attitude: Guarded - Affect Affect: Constrictive Appropriateness: Not Appropriate - Mood Mood: Euthymic - Speech/Language Expressive: Delayed - Psychomotor Activity Psychomotor Activity: Normal - Thought Process Thought Process: Loosening of Associations - Thought Content Hallucinations: Absent Delusions: Absent - Self Perception Self Perception: No Impairment - Cognition Memory, Short Term: 2/3 Memory, Remote: Impaired - Concentration Serial Sevens Intact: No Simple Calculations Intact: Yes - Abstraction Proverb Interpretation: [place] Judgement: Moderately Impaired - Insight Insight: Impaired - Impulse Control Impulse Control: Moderately Impaired - Suicidal Ideation Suicidal Ideation: No - Homicidal Ideation Homicidal Ideation: No Assessment/Plan 1) Patient lacks functional capacity to make informal decisions about his Care.
[2019-03-24] MEDS ORDERED: INSULIN (NOVOLOG) ASPART 100 UNITS/ML 10ML VIAL ONE (18:45)
--- NOTE | 2019-03-24 21:14 | PN ---
Progress Note (short form) - Note Progress Note: Patient seen and examined Oriented in person, place, date recalls what is told to hime but seems to have short term memmory issues Redisucssed his diagnosis of lung cancer, which he forgot Remembered seeing the radiation oncologist Discussed staging of lung cancer and possible RT to T spine for impending cord compression He does report rt. lower extremity mild weakness Denies any pain Last Vital Signs Temp Pulse Resp BP Pulse Ox 98.1 F 109 H 20 103/72 97 03/24/19 17:50 03/24/19 17:50 03/24/19 17:50 03/24/19 17:50 03/24/19 09:00 Cor: RSR, No murmurs, No gallops Lungs: Clear to P&A Abd: Soft, Normal bowel sounds, No organomegaly Ext:No significant edema Labs/Meds reviewed A/p 68 y/opatient with HTN, afib, CAD, DM, HLD schizophrenia, with newly diagnosed lung ca Oriented in person, place, date recalls what is told to him but seems to have short term memmory issues Redisucssed his diagnosis of lung cancer, which he forgot Remembered seeing the radiation oncologist Discussed staging of lung cancer and possible RT to T spine for impending cord compression He does report rt. lower extremity mild weakness Denies any pain Poorly differentiated carcinoma T3 vertebral body metastases, paravertebral mass, foraminal obstruction by the mass at T2-3, displacement of the cord Left cerebellar 0.7cm and rt. occipital metastasis On dexamethasone 4mg bid/protonix await psych input about competency( patient with short term memmory issues)
[2019-03-25] MEDS: INSULIN SLIDING SCALE (NOVOLOG) 1 VIAL SQ SCH ×4 (06:21→22:16)
[2019-03-25] MEDS: dilTIAZem HCL 30 MG TABLET (FP) PO SCH ×3 (06:21→22:18)
[2019-03-25 08:54] LABS: BASO % 0.3 % (0-2.0); HEMOGLOBIN 11.8 GM/dL (11.7-16.9); LYMPH % 4.2 % (8-40); MCHC 31.7 g/dl (32.0-35.9); MEAN CELL VOLUME 78.9 fl (80-96); MEAN PLT VOLUME 8.5 fl (7.5-11.1); NEUT % 91.5 % (42.8-82.8); PLATELET COUNT 234 K/MM3 (134-434); RBC 4.69 M/mm3 (4.00-5.60); RDW 25.9 % (11.9-15.9); WHITE BLOOD COUNT 15.4 K/mm3 (4.0-10.0)
--- NOTE | 2019-03-25 09:28 | PN ---
Progress Note (short form) - Note Progress Note: Denies shortness of breath or chest pain. Says he is waiting on his plan for his lung lesion. Reminded that the lesion is cancer. No acute events overnight. Intake & Output 03/22/19 03/23/19 03/24/19 03/25/19 23:59 23:59 23:59 23:59 Intake Total 002 569 4470 Output Total 550 1800 400 Balance 30 240 -780 -400 Weight 165 lb 8 oz 165 lb 168 lb 4.8 oz 162 lb 11.2 oz Last Vital Signs Temp Pulse Resp BP Pulse Ox 98.2 F 91 H 20 93/61 97 03/25/19 06:00 03/25/19 06:00 03/25/19 06:00 03/25/19 06:00 03/24/19 21:00 Active Medications Acetaminophen (Tylenol -) 650 mg PO Q6H PRN PRN Reason: PAIN LEVEL 1-5 Aripiprazole (Abilify) 5 mg PO DAILY [facility] Last Admin: 03/24/19 10:02 Dose: 5 mg Ascorbic Acid (Vitamin C -) 500 mg PO DAILY [facility] Last Admin: 03/24/19 10:06 Dose: 500 mg Benztropine Mesylate (Cogentin -) 0.5 mg PO DAILY [facility] Last Admin: 03/24/19 11:58 Dose: 0.5 mg Calcium Carbonate (Os-Davey 500mg -) 500 mg PO DAILY [facility] Last Admin: 03/24/19 10:05 Dose: 500 mg Cholecalciferol (Vitamin D3 -) 400 unit PO DAILY [facility] Last Admin: 03/24/19 10:07 Dose: 400 unit Dexamethasone Sodium Phosphate (Decadron Injection -) 4 mg IVPUSH BID [facility] Last Admin: 03/24/19 22:18 Dose: 4 mg Diltiazem HCl (Cardizem -) 30 mg PO TID [facility] Last Admin: 03/25/19 06:21 Dose: Not Given Furosemide (Lasix -) 20 mg PO DAILY [facility] Last Admin: 03/24/19 10:05 Dose: 20 mg Insulin Aspart (Novolog Vial Sliding Scale -) 1 vial SQ ACHS [facility]; Protocol Last Admin: 03/25/19 06:21 Dose: 6 units Lisinopril (Prinivil) 2.5 mg PO DAILY [facility] Last Admin: 03/24/19 10:06 Dose: 2.5 mg Metoprolol Succinate (Toprol Xl -) 100 mg PO BID [facility] Last Admin: 03/24/19 22:20 Dose: Not Given Nystatin (Mycostatin Ointment -) 1 applic TP BID [facility] Last Admin: 03/24/19 22:19 Dose: 1 applic Pantoprazole Sodium (Protonix -) 40 mg PO DAILY [facility] Last Admin: 03/24/19 10:05 Dose: 40 mg Rivaroxaban (Xarelto) 20 mg PO DAILY@1800 [facility] Last Admin: 03/24/19 17:07 Dose: 20 mg Gen: NAD at rest Heart: RRR Lung: decreased breath sounds at the bases Abd: soft, nontender Ext: no edema Laboratory Results - last 24 hr 03/24/19 03/24/19 03/24/19 11:44 17:05 22:12 WBC RBC Hgb Hct MCV MCH MCHC RDW Plt Count MPV Absolute Neuts (auto) Neutrophils % Lymphocytes % Monocytes % Eosinophils % Basophils % Nucleated RBC % POC Glucometer 197 186 174 03/25/19 03/25/19 05:56 07:00 WBC 15.4 H RBC 4.69 Hgb 11.8 Hct 37.0 MCV 78.9 L MCH 25.0 L MCHC 31.7 L RDW 25.9 H Plt Count 234 MPV 8.5 Absolute Neuts (auto) 14.1 H Neutrophils % 91.5 H Lymphocytes % 4.2 L D Monocytes % 4.0 Eosinophils % 0.0 Basophils % 0.3 Nucleated RBC % 0 POC Glucometer 281 Problem List - Problems (1) Lung cancer Code(s): C34.90 - MALIGNANT NEOPLASM OF UNSP PART OF UNSP BRONCHUS OR LUNG IMP: Poorly differentiated metastatic Lung CA to Brain / spine CAD Atrial Fibrillation DM Hyperlipidemia Schizophrenia - Steroids - inhaled bronchodilators - radiation oncology evaluation - rate controlled - continue anticoagulation - Patient apparently lacks decisional capacity Dr Luna
[2019-03-25 09:43] LABS: BLOOD UREA NITROGEN 27.2 mg/dL (7-18); CALCIUM 8.8 mg/dL (8.5-10.1); CREATININE 0.7 mg/dL (0.55-1.3); PHOSPHOROUS 3.6 mg/dL (2.5-4.9); POTASSIUM 4.2 mmol/L (3.5-5.1)
[2019-03-25] MEDS: ASCORBIC ACID 500 MG TABLET (FP) PO SCH (10:02)
[2019-03-25] MEDS: ARIPiprazole 5 MG TABLET (FP) PO SCH (10:02)
[2019-03-25] MEDS: DEXAMETHASONE SOD PHOSPHATE 4 MG/1 ML VIAL IVPUSH SCH ×2 (10:02→22:16)
[2019-03-25] MEDS: CHOLECALCIFEROL (VIT D3) 400 UNIT (10 MCG) TABLET PO SCH (10:02)
[2019-03-25] MEDS: PANTOPRAZOLE 40 MG TABLET (FP) PO SCH (10:03)
[2019-03-25] MEDS: FUROSEMIDE 20 MG TABLET (FP) PO SCH (10:03)
[2019-03-25] MEDS: CALCIUM (OYSTER SHELL) 500 MG TABLET (FP) PO SCH (10:03)
[2019-03-25] MEDS: BENZTROPINE MESYLATE 0.5 MG TABLET (FP) PO SCH (10:04)
[2019-03-25] MEDS: LISINOPRIL 5 MG TABLET (FP) PO SCH (10:04)
[2019-03-25] MEDS: NYSTATIN 100000 UNIT/GM TOPICAL OINTMENT 15 GM TUBE TP SCH ×2 (10:04→22:18)
[2019-03-25 10:30] LABS: ANISOCYTOSIS 2+; PLATELET ESTIMATE NORMAL
--- NOTE | 2019-03-25 10:41 | PN ---
Progress Note (short form) - Note Progress Note: Hospitalist Medicine Saw patient this AM, states that he feels well. Pt deemed without capacity by psych. Vitals 03/25/19 06:00 Temperature 98.2 F Pulse Rate 91 H Respiratory 20 Rate Blood Pressure 93/61 Physical Exam General: in no acute distress, sitting up HEENT: NCAT, PERRLA neck: supple cardio: S1, S2 RRR. no r/m/g Pulm: CTA b/l. no accessory m usage abdomen: nontender, nondistended MSK: 3/5 ROM in RLE. 4/5 LLE. sensation intact. 5/5 strength UE. gait not observed neuro: bellstand attendant 2-12 grossly intact psych: +flat affect. Laboratory Results 03/25/19 03/25/19 07:00 07:00 WBC 15.4 H Hgb 11.8 Hct 37.0 Plt Count 234 Sodium 133 L Potassium 4.2 Anion Gap 7 L BUN 27.2 H Creatinine 0.7 Random Glucose 175 H Last admission: Microbiology 03/12/19 20:15 Sputum - Aerosol Induced AFB Smear Concentration - Final 03/10/19 15:01 Nasopharyngeal Swab Respiratory Virus Panel - Final 03/07/19 21:00 Urine For Antigen Detection Legionella Antigen - Final 03/07/19 21:00 Urine For Antigen Detection Streptococcus pneumoniae Antigen (M - Final 03/12/19 20:15 Sputum - Aerosol Induced Mycobacterial Culture - Preliminary Imaging chest CT: 5 x 4.5 x 4.5 cm noncalcified irregular lesion in posterior medial aspect of R pulm apex with partial erosion of the contiguous R lateral border of the T3 vertebral body and R third rib. no gross intraspinal extension seen on the basis of noncontrast imaging. confluent R hilar lymphadenopathy noted. enlarged pretracheal and R paratracheal mediastinal LN are also seen with short axis diameter of 2.9cm. a 1.4x 1 cm polypod lesion is seen within the R mainstem bronchus probably on the basis of transbronchial extension from the contuguous lymphadenopathy. mild upper lobe opacity seen probably on basis of mild obstructive atelectasis. moderate R sided and small to moderate L sided pleural effusions are noted layering posteriorly. there is nonspecific enlargement of the L adrenal gland measuring 2.5 x 1.1cm. healed right rib fx posteriorly RUQ u/s: non-mobile gallstones without sonographic evidence of acute cholecystitis. hepatomegaly, mild fatty liver. R pleural effusion. Brain MRI: 0.7 cm enhancing lesion consistent with metastatic neoplastic dz in the L cerebellar hemisphere. no perilesional edema is seen. a subtle 0.3cm additional neoplastic lesion is noted in the R occipital lobe posteriorly with minimal perilesional edema. smal supratentorial and infratentorial chronic infarcts are noted. C-spine MRI/T-spine MRI: mild degenerative disc disease. no evidence of stenosis. in the thoracic spine there is a R paraspinal soft tissue mass 5.3x 5.3 cm with enhancement. mass is involving the R lateral aspect of T3 vertebral body with abnormal signal intensity identified. bone destruction with R transverse process of T3, right pedicle and probably extending to the Right lamina are present. mass is extending into right lateral aspect of spinal canal with mass effect on thecal sac and slightly displacing the upper thoracic cord towards left. it is extending to T2-T3 and right T3-T4 neural foramen. the right extradural soft tissue mass in the spinal canal is extending from lower T2 down to lower T4 level but os more prominent at T4. no cord compression is evident. ASSESSMENT/PLAN: 68 y/o M from [facility] with hx schizophrenia, MDD, afib, DM, HLD, CAD, with newly diagnosed lung CA who initially presented on last admission with RUL mass a/w mediastinal KAYLYN, erosion of T3, R 3rd rib and newly dx brain mets. Pt has returned for concern of cord compression. #RUL mass a/w mediastinal LN erosion of T3, R3rd rib, newly dx brain mets -new concern for cord compression, will start on radiation therapy -started on IV decadron 4mg IVPB BID, per onc -per psych, pt without capacity. will need to discuss plan w/ onc -per palliative, may require 2 physician consent for procedure -Psych: Dr. Singleton -Rad onc: Dr. Bose -Onc: Dr. Avalos -neurosx consulted by team for additional opinion #DM -c/w ISS, BGM ACHS #schizophrenia, MDD -c/w abilify -c/w cogentin #afib -c/w xarelto -rate control w/ cardiazem, toprol #F/E/N does not need IVF continue to follow lytes diabetic/sodium controlled diet #PPX DVT: on xarelto #Dispo will need radiation therapy without capacity, f/u ethics, palliative, onc discussions <Margy Cabrera - Last Filed: 03/25/19 18:04> - Note Progress Note: Seen and examined; discussed at length with resident team and indicated consultants. Independently reviewed all [place] historical, PE, diagnostic, and imaging findings. Agree with above documentation and assessment and plan as documented by resident aside from as supplemented below. Per my assessment he lacks functional decision making capacity; though he is cognicent of day/time etc, he has a distinct inability to functionally describe the consequences of his actions and he shows a clear flight of ideas with lakc of logical thought progression. FU psych recs and will d/w oncology. Consult Dr. Sharma/ethics if needed. 10 sys ROS done and negative aside from HPI VS labs imaging reviewed NAD, AAO resting in bed Trachea midline no LN. NC AT EOMI PERRLA CTAB, w/ sym exp HR wnl +s1/2 NT ND +BS CN2-12 wnl, no progressive neuro sx Normal mood, appropriate behavior, poor insight, compromised judgment, flight of ideas. No active SI/HI/ A/P: Patient with newly diagnosed poorly differentiated lung CA (oncology and rad onc following) who initially presented on last admission with RUL mass a/w mediastinal KAYLYN, erosion of T3, R 3rd rib and newly dx brain mets. Pt has returned for concern of cord compression and may be treated with radiation therapy. No progressive neuro symptoms noted again today. Lacks capacity. Ethics consult noted; 2-PC would have to be obtained. Discussed with resident team and ethics. 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 Intent of tx is palliative and to avoid catastrophic neurological damage. Stable exam. Full Code <Miles Antonio - Last Filed: 03/26/19 01:59>
--- NOTE | 2019-03-25 12:54 | PN ---
Progress Note (short form) - Note Progress Note: Ethics This is a followup ethics evaluation for Mr. Theodore. He has been readmitted and found to have lung Ca with brain and bony metastases. The patient was again evaluated by Dr. Singleton from Psychiatry and deemed not to have medical decision making capacity. I have reviewed the notes from the Oncology and Pulmonary MD's and they clearly outline that he would not refuse treatment for his malignancy but often forgets his diagnosis and previous statements he has made. He answers my questions in a similar fashion. Under these circumstances the patient cannot sign himself for any major medical treatment decisions but the Attending MD with a concurring MD can make a recommendation for treatment and provide the treatment as long as the PATIENT doesn't object. At this point there is no evidence to support refusal. If however there is a decision going forward to withhold or withdraw life sustaining treatment or DNR/DNI then certain criteria as listed in the Family Health Care Decisions Act of 2010 must be followed. I have placed on the patient 's blue floor chart a copy of those parameters.
[2019-03-25] MEDS: RIVAROXABAN 20 MG TABLET PO SCH (17:14)
[2019-03-26] MEDS: dilTIAZem HCL 30 MG TABLET (FP) PO SCH ×3 (06:38→21:45)
[2019-03-26] MEDS: INSULIN SLIDING SCALE (NOVOLOG) 1 VIAL SQ SCH ×4 (06:39→21:43)
[2019-03-26 08:46] LABS: BASO % 0.4 % (0-2.0); EOS % 0.1 % (0-4.5); HEMATOCRIT 36.1 % (35.4-49); HEMOGLOBIN 11.6 GM/dL (11.7-16.9); MCH 25.1 pg (25.7-33.7); MCHC 32.1 g/dl (32.0-35.9); MEAN CELL VOLUME 78.4 fl (80-96); MEAN PLT VOLUME 8.7 fl (7.5-11.1); MONO % 4.1 % (3.8-10.2); NEUT % 90.4 % (42.8-82.8); PLATELET COUNT 253 K/MM3 (134-434); RDW 26.1 % (11.9-15.9); WHITE BLOOD COUNT 18.1 K/mm3 (4.0-10.0)
[2019-03-26 09:08] LABS: BLOOD UREA NITROGEN 31.3 mg/dL (7-18); CALCIUM 8.8 mg/dL (8.5-10.1); CREATININE 0.7 mg/dL (0.55-1.3); MAGNESIUM 2.2 mg/dL (1.8-2.4); PHOSPHOROUS 3.4 mg/dL (2.5-4.9); POTASSIUM 4.3 mmol/L (3.5-5.1)
--- NOTE | 2019-03-26 09:58 | PN ---
Progress Note (short form) - Note Progress Note: Radiation Oncology Follow Up Pt seen and chart/films reviewed. Dr. Maira gomez seen and appreciated. Dr. Sharma's ethics note reviewed and appreciated. Patient this morning having breakfast, pleasant, and cooperative. He is able to recall his lung cancer diagnosis with involvement of the spine, acknowledges the possible detrimental consequences if untreated, and agreed to proceeding with radiation therapy. Understands he will need to lay still each day on table alone in our treatment room. Side effects of dysphagia/odynophagia, fatigue, skin reaction, lung damage were reviewed again. Exam: AOx2, sensation LT intact, no sensory level, motor 4/5 RLE, 4+/5 x 3, toes mute. Impression: Metastatic adenocarcinoma of right lung with impending cord compression. It appears that he may be able to cooperate with RT treatment and as such I would recommend proceeding with palliative treatments beginning with a simulation CT scan, today if possible, which will also confirm that he can indeed follow instructions. I have spoken to medical oncology who are in agreement with this plan. He was presented in the tumor board last week. Recent MRI showed few small brain mets with scant edema. Will consider SRS in future pending current course. Will arrange for RT simulation and planning to proceed.
[2019-03-26] MEDS ORDERED: PT OWN MED DRAWER 7, Y5N ONE ×3 (10:16→21:33)
[2019-03-26] MEDS: DEXAMETHASONE SOD PHOSPHATE 4 MG/1 ML VIAL IVPUSH SCH ×2 (10:32→21:44)
[2019-03-26] MEDS: FUROSEMIDE 20 MG TABLET (FP) PO SCH (10:32)
[2019-03-26] MEDS: ARIPiprazole 5 MG TABLET (FP) PO SCH (10:32)
[2019-03-26] MEDS: PANTOPRAZOLE 40 MG TABLET (FP) PO SCH (10:32)
[2019-03-26] MEDS: ASCORBIC ACID 500 MG TABLET (FP) PO SCH (10:33)
[2019-03-26] MEDS: LISINOPRIL 5 MG TABLET (FP) PO SCH (10:33)
[2019-03-26] MEDS: CHOLECALCIFEROL (VIT D3) 400 UNIT (10 MCG) TABLET PO SCH (10:33)
[2019-03-26] MEDS: CALCIUM (OYSTER SHELL) 500 MG TABLET (FP) PO SCH (10:33)
[2019-03-26] MEDS: BENZTROPINE MESYLATE 0.5 MG TABLET (FP) PO SCH (10:34)
[2019-03-26] MEDS: NYSTATIN 100000 UNIT/GM TOPICAL OINTMENT 15 GM TUBE TP SCH ×2 (11:00→21:47)
--- NOTE | 2019-03-26 12:38 | PN ---
Physical Exam: SUBJECTIVE: Patient seen and examined; continues to have restricted insight. Going to get markings done for radiation today. Discussed with nursing. Ethics input noted. He lacks capacity to make medical decisions. No new neurological complaints, etc. Stable exam. Continue to monitor on the medicine service. 10 sys ROS done and negative aside from HPI OBJECTIVE: Vital Signs Period Temp Pulse Resp BP Sys/Stock Pulse Ox Last 24 Hr 97.5 F-98.4 F 84-94 18-20 90-113/56-65 97 GENERAL: The patient is awake, alert, and fully oriented, in no acute distress. HEAD: Normal with no signs of trauma. EYES: PERRL, extraocular movements intact, sclera anicteric, conjunctiva clear. No ptosis. ENT: Ears normal, nares patent, oropharynx clear without exudates, moist mucous membranes. NECK: Trachea midline, full range of motion, supple. LUNGS: Breath sounds equal, clear to auscultation bilaterally, no wheezes, no crackles, no accessory muscle use. HEART: Regular rate and rhythm, S1, S2 without murmur, rub or gallop. ABDOMEN: Soft, nontender, nondistended, normoactive bowel sounds Skin: warm, well-perfused, no edema. NEUROLOGICAL: Cranial nerves II through XII grossly intact. Normal speech, gait not observed. PSYCH: No SI/HI, flight of ideas, poor thought progression Laboratory Results - last 24 hr 03/25/19 03/25/19 03/26/19 16:05 21:22 06:36 WBC RBC Hgb Hct MCV MCH MCHC RDW Plt Count MPV Absolute Neuts (auto) Neutrophils % Lymphocytes % Monocytes % Eosinophils % Basophils % Nucleated RBC % Sodium Potassium Chloride Carbon Dioxide Anion Gap BUN Creatinine Est GFR (CKD-EPI)AfAm Est GFR (CKD-EPI)NonAf POC Glucometer 229 162 170 Random Glucose Calcium Phosphorus Magnesium 03/26/19 03/26/19 03/26/19 07:45 07:45 10:47 WBC 18.1 H RBC 4.60 Hgb 11.6 L Hct 36.1 MCV 78.4 L MCH 25.1 L MCHC 32.1 RDW 26.1 H Plt Count 253 MPV 8.7 Absolute Neuts (auto) 16.4 H Neutrophils % 90.4 H Lymphocytes % 5.0 L Monocytes % 4.1 Eosinophils % 0.1 D Basophils % 0.4 Nucleated RBC % 0 Sodium 134 L Potassium 4.3 Chloride 97 L Carbon Dioxide 28 Anion Gap 8 BUN 31.3 H Creatinine 0.7 Est GFR (CKD-EPI)AfAm 113.98 Est GFR (CKD-EPI)NonAf 98.34 POC Glucometer 209 Random Glucose 161 H Calcium 8.8 Phosphorus 3.4 Magnesium 2.2 Active Medications Generic Name Dose Route Start Last Admin Trade Name Freq PRN Reason Stop Dose Admin Acetaminophen 650 mg 03/21/19 15:04 Tylenol - PO Q6H PRN PAIN LEVEL 1-5 Aripiprazole 5 mg 03/22/19 10:00 03/26/19 10:32 Abilify PO 5 mg DAILY [facility]ON Administration Ascorbic Acid 500 mg 03/22/19 10:00 03/26/19 10:33 Vitamin C - PO 500 mg DAILY [facility] Administration Benztropine Mesylate 0.5 mg 03/22/19 10:00 03/26/19 10:34 Cogentin - PO 0.5 mg DAILY [facility] Administration Calcium Carbonate 500 mg 03/22/19 10:00 03/26/19 10:33 Os-Davey 500mg - PO 500 mg DAILY [facility] Administration Cholecalciferol 400 unit 03/22/19 10:00 03/26/19 10:33 Vitamin D3 - PO 400 unit DAILY [facility] Administration Dexamethasone Sodium Phosphate 4 mg 03/23/19 22:00 03/26/19 10:32 Decadron Injection - IVPUSH 4 mg BID [facility] Administration Diltiazem HCl 30 mg 03/21/19 22:00 03/26/19 06:38 Cardizem - PO 30 mg TID [facility] Administration Furosemide 20 mg 03/22/19 10:00 03/26/19 10:32 Lasix - PO 20 mg DAILY [facility] Administration Insulin Aspart 1 vial 03/21/19 16:30 03/26/19 06:39 Novolog Vial Sliding Scale - SQ 2 units ACHS [facility] Administration Protocol Lisinopril 2.5 mg 03/22/19 10:00 03/26/19 10:33 Prinivil PO 2.5 mg DAILY [facility] Administration Metoprolol Succinate 100 mg 03/21/19 22:00 03/26/19 10:32 Toprol Xl - PO 100 mg BID [facility] Administration Nystatin 1 applic 03/21/19 22:00 03/25/19 22:18 Mycostatin Ointment - TP 1 applic BID [facility] Administration Pantoprazole Sodium 40 mg 03/22/19 12:45 03/26/19 10:32 Protonix - PO 40 mg DAILY [facility] Administration Rivaroxaban 20 mg 03/21/19 18:00 03/25/19 17:14 Xarelto PO 20 mg DAILY@1800 [facility] Administration ASSESSMENT/PLAN: Patient with newly diagnosed poorly differentiated lung CA (oncology and rad onc following) who initially presented on last admission with RUL mass a/w mediastinal KAYLYN, erosion of T3, R 3rd rib and newly dx brain mets. Pt has returned for concern of cord compression and may be treated with radiation therapy. No progressive neuro symptoms noted again today. Lacks capacity. Ethics consult noted; 2-PC would have to be obtained. Discussed with resident team and ethics. 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 Will require ongoing 2PC for medical decisions due to lack of capacity-ethics consult noted. Intent of tx is palliative and to avoid catastrophic neurological damage. Stable exam. Complete radiation tx inpatient. Full Code Visit type - Emergency Visit Emergency Visit: Yes ED Registration Date: 03/21/19 Care time: The patient presented to the Emergency Department on the above date and was hospitalized for further evaluation of their emergent condition. - New Patient This patient is new to me today: No - Critical Care Critical Care patient: No
--- NOTE | 2019-03-26 15:19 | PN ---
Progress Note, Physician History of Present Illness: PULMONARY ALERT,NO DISTRESS,-SOB - Current Medication List Current Medications: Active Medications Acetaminophen (Tylenol -) 650 mg PO Q6H PRN PRN Reason: PAIN LEVEL 1-5 Aripiprazole (Abilify) 5 mg PO DAILY [facility] Last Admin: 03/26/19 10:32 Dose: 5 mg Ascorbic Acid (Vitamin C -) 500 mg PO DAILY [facility] Last Admin: 03/26/19 10:33 Dose: 500 mg Benztropine Mesylate (Cogentin -) 0.5 mg PO DAILY [facility] Last Admin: 03/26/19 10:34 Dose: 0.5 mg Calcium Carbonate (Os-Dvaey 500mg -) 500 mg PO DAILY [facility] Last Admin: 03/26/19 10:33 Dose: 500 mg Cholecalciferol (Vitamin D3 -) 400 unit PO DAILY [facility] Last Admin: 03/26/19 10:33 Dose: 400 unit Dexamethasone Sodium Phosphate (Decadron Injection -) 4 mg IVPUSH BID [facility] Last Admin: 03/26/19 10:32 Dose: 4 mg Diltiazem HCl (Cardizem -) 30 mg PO TID [facility] Last Admin: 03/26/19 06:38 Dose: 30 mg Furosemide (Lasix -) 20 mg PO DAILY [facility] Last Admin: 03/26/19 10:32 Dose: 20 mg Insulin Aspart (Novolog Vial Sliding Scale -) 1 vial SQ ACHS [facility]; Protocol Last Admin: 03/26/19 15:04 Dose: Not Given Lisinopril (Prinivil) 2.5 mg PO DAILY [facility] Last Admin: 03/26/19 10:33 Dose: 2.5 mg Metoprolol Succinate (Toprol Xl -) 100 mg PO BID [facility] Last Admin: 03/26/19 10:32 Dose: 100 mg Nystatin (Mycostatin Ointment -) 1 applic TP BID [facility] Last Admin: 03/25/19 22:18 Dose: 1 applic Pantoprazole Sodium (Protonix -) 40 mg PO DAILY [facility] Last Admin: 03/26/19 10:32 Dose: 40 mg Rivaroxaban (Xarelto) 20 mg PO DAILY@1800 [facility] Last Admin: 03/25/19 17:14 Dose: 20 mg - Objective Vital Signs: Vital Signs Temperature 97.6 F 03/26/19 10:01 Pulse Rate 94 H 03/26/19 10:01 Respiratory Rate 18 11/27/19 10:01 Blood Pressure 96/64 03/26/19 10:01 O2 Sat by Pulse Oximetry (%) 97 03/25/19 21:00 Constitutional: Yes: Well Nourished, Calm Eyes: Yes: WNL HENT: Yes: WNL Neck: Yes: WNL Cardiovascular: Yes: Pulse Irregular, S1, S2 Respiratory: Yes: CTA Bilaterally Gastrointestinal: Yes: Normal Bowel Sounds, Soft Extremities: Yes: WNL Edema: No Labs: CBC, BMP 03/26/19 07:45 03/26/19 07:45 INR, PTT INR 1.52 (0.83-1.09) H 03/22/19 07:40 Problem List - Problems (1) Lung cancer Code(s): C34.90 - MALIGNANT NEOPLASM OF UNSP PART OF UNSP BRONCHUS OR LUNG (2) Metastatic disease Code(s): C79.9 - SECONDARY MALIGNANT NEOPLASM OF UNSPECIFIED SITE (3) Afib Code(s): I48.91 - UNSPECIFIED ATRIAL FIBRILLATION Qualifiers: Atrial fibrillation type: persistent (4) Anemia Code(s): D64.9 - ANEMIA, UNSPECIFIED Qualifiers: Anemia type: unspecified type Qualified Code(s): D64.9 - Anemia, unspecified (5) CAD (coronary artery disease) Code(s): I25.10 - ATHSCL HEART DISEASE OF [place] CORONARY ARTERY W/O ANG PCTRS (6) Diabetes Code(s): E11.9 - TYPE 2 DIABETES MELLITUS WITHOUT COMPLICATIONS (7) HTN (hypertension) Code(s): I10 - ESSENTIAL (PRIMARY) HYPERTENSION Qualifiers: Hypertension type: essential hypertension Qualified Code(s): I10 - Essential (primary) hypertension Assessment/Plan Problem List - Problems (1) Lung cancer Code(s): C34.90 - MALIGNANT NEOPLASM OF UNSP PART OF UNSP BRONCHUS OR LUNG IMP: Poorly differentiated metastatic Lung CA to Brain / spine CAD Atrial Fibrillation DM Hyperlipidemia Schizophrenia - Steroids - inhaled bronchodilators - as per oncology - rate controlled - continue anticoagulation - Patient lacks decisional capacity DR LOO
[2019-03-26] MEDS ORDERED: INSULIN (NOVOLOG) ASPART 100 UNITS/ML 10ML VIAL ONE ×2 (17:24→21:34)
[2019-03-26] MEDS: RIVAROXABAN 20 MG TABLET PO SCH (17:25)
[2019-03-26] MEDS ORDERED: INSULIN (LEVEMIR) 100 UNITS/ML UNITS SQ ONE (17:25)
[2019-03-27] MEDS: dilTIAZem HCL 30 MG TABLET (FP) PO SCH ×3 (05:58→22:02)
[2019-03-27] MEDS: INSULIN SLIDING SCALE (NOVOLOG) 1 VIAL SQ SCH ×4 (05:59→22:01)
--- NOTE | 2019-03-27 09:29 | PN ---
Progress Note (short form) - Note Progress Note: PULMONARY AWAKE/ALERT OFFERS NO COMPLAINTS VSS/AFEBRILE Constitutional: Yes: Well Nourished, Calm Eyes: Yes: WNL HENT: Yes: WNL Neck: Yes: WNL Cardiovascular: Yes: Pulse Irregular, S1, S2 Respiratory: Yes: CTA Bilaterally Gastrointestinal: Yes: Normal Bowel Sounds, Soft Extremities: Yes: WNL Edema: No Labs: REVIEWED Poorly differentiated metastatic Lung CA to Brain / spine CAD Atrial Fibrillation DM Hyperlipidemia Schizophrenia - Steroids - inhaled bronchodilators - as per oncology - rate controlled - continue anticoagulation Aguilar AUSTIN MD
[2019-03-27] MEDS: ASCORBIC ACID 500 MG TABLET (FP) PO SCH (09:45)
[2019-03-27] MEDS: ARIPiprazole 5 MG TABLET (FP) PO SCH (09:45)
[2019-03-27] MEDS: DEXAMETHASONE SOD PHOSPHATE 4 MG/1 ML VIAL IVPUSH SCH ×2 (09:45→22:02)
[2019-03-27] MEDS: LISINOPRIL 5 MG TABLET (FP) PO SCH (09:45)
[2019-03-27] MEDS: FUROSEMIDE 20 MG TABLET (FP) PO SCH (09:45)
[2019-03-27] MEDS: CALCIUM (OYSTER SHELL) 500 MG TABLET (FP) PO SCH (09:45)
[2019-03-27] MEDS: PANTOPRAZOLE 40 MG TABLET (FP) PO SCH (09:45)
[2019-03-27] MEDS: BENZTROPINE MESYLATE 0.5 MG TABLET (FP) PO SCH (09:48)
[2019-03-27] MEDS: CHOLECALCIFEROL (VIT D3) 400 UNIT (10 MCG) TABLET PO SCH (11:28)
[2019-03-27] MEDS: NYSTATIN 100000 UNIT/GM TOPICAL OINTMENT 15 GM TUBE TP SCH ×2 (11:31→22:02)
--- NOTE | 2019-03-27 12:27 | PN ---
Progress Note (short form) - Note Progress Note: Patient seen and examined Denies chest pain, SOB, nausea. Some diarrhea. Last Vital Signs Temp Pulse Resp BP Pulse Ox 97.9 F 86 18 109/66 97 03/27/19 09:44 03/27/19 09:44 03/27/19 09:44 03/27/19 09:44 03/26/19 21:00 HEENT: GENNY, EOM Intact Oropharynx: No thrush, No mucositis Cor- irregular Lungs: Clear to P&A Abd: Soft, Normal bowel sounds, No organomegaly Ext:No significant edema Skin: No rashes, Integument intact CBC, BMP 03/26/19 07:45 03/26/19 07:45 Current Medications Generic Name Dose Route Start Last Admin Trade Name Freq PRN Reason Stop Dose Admin Acetaminophen 650 mg 03/21/19 15:04 Tylenol - PO Q6H PRN PAIN LEVEL 1-5 Aripiprazole 5 mg 03/22/19 10:00 03/27/19 09:45 Abilify PO 5 mg DAILY JONAHTON Administration Ascorbic Acid 500 mg 03/22/19 10:00 03/27/19 09:45 Vitamin C - PO 500 mg DAILY JONATHON Administration Benztropine Mesylate 0.5 mg 03/22/19 10:00 03/27/19 09:48 Cogentin - PO 0.5 mg DAILY JONATHON Administration Calcium Carbonate 500 mg 03/22/19 10:00 03/27/19 09:45 Os-Davey 500mg - PO 500 mg DAILY JONATHON Administration Cholecalciferol 400 unit 03/22/19 10:00 03/27/19 11:28 Vitamin D3 - PO 400 unit DAILY JONATHON Administration Dexamethasone Sodium Phosphate 4 mg 03/23/19 22:00 03/27/19 09:45 Decadron Injection - IVPUSH 4 mg BID JONATHON Administration Diltiazem HCl 30 mg 03/21/19 22:00 03/27/19 05:58 Cardizem - PO 30 mg TID JONATHON Administration Furosemide 20 mg 03/22/19 10:00 03/27/19 09:45 Lasix - PO 20 mg DAILY JONATHON Administration Insulin Aspart 1 vial 03/21/19 16:30 03/27/19 05:59 Novolog Vial Sliding Scale - SQ 6 units ACHS JONATHON Administration Protocol Lisinopril 2.5 mg 03/22/19 10:00 03/27/19 09:45 Prinivil PO 2.5 mg DAILY JONATHON Administration Metoprolol Succinate 100 mg 03/21/19 22:00 03/27/19 09:45 Toprol Xl - PO 100 mg BID JONATHON Administration Nystatin 1 applic 03/21/19 22:00 03/27/19 11:31 Mycostatin Ointment - TP 1 applic BID JONATHON Administration Pantoprazole Sodium 40 mg 03/22/19 12:45 03/27/19 09:45 Protonix - PO 40 mg DAILY JONATHON Administration Rivaroxaban 20 mg 03/21/19 18:00 03/26/19 17:25 Xarelto PO 20 mg DAILY@1800 JONATHON Administration Impression PD Lung ca - T3 met extending into epidural space - begun on RT Obstructing RUL mass Bone mets Atrial fib- a/c Radiation therapy Plan: Current therapy RT to T3 spine .
--- NOTE | 2019-03-27 13:57 | PN ---
Progress Note (short form) - Note Progress Note: Hospitalist Medicine Without complaint this AM. Eating breakfast. Vitals 03/27/19 09:44 Temperature 97.9 F Pulse Rate 86 Respiratory 18 Rate Blood Pressure 109/66 Physical Exam General: in no acute distress, eating breakfast HEENT: NCAT, PERRLA neck: supple cardio: S1, S2 RRR. no r/m/g Pulm: CTA b/l. no accessory m usage abdomen: nontender, nondistended MSK: 3/5 ROM in RLE. 4/5 LLE. sensation intact. 5/5 strength UE. 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 Laboratory Results 03/27/19 12:25 POC Glucometer 159 Last admission: Microbiology 03/12/19 20:15 Sputum - Aerosol Induced AFB Smear Concentration - Final 03/10/19 15:01 Nasopharyngeal Swab Respiratory Virus Panel - Final 03/07/19 21:00 Urine For Antigen Detection Legionella Antigen - Final 03/07/19 21:00 Urine For Antigen Detection Streptococcus pneumoniae Antigen (M - Final 03/12/19 20:15 Sputum - Aerosol Induced Mycobacterial Culture - Preliminary Imaging chest CT: 5 x 4.5 x 4.5 cm noncalcified irregular lesion in posterior medial aspect of R pulm apex with partial erosion of the contiguous R lateral border of the T3 vertebral body and R third rib. no gross intraspinal extension seen on the basis of noncontrast imaging. confluent R hilar lymphadenopathy noted. enlarged pretracheal and R paratracheal mediastinal LN are also seen with short axis diameter of 2.9cm. a 1.4x 1 cm polypod lesion is seen within the R mainstem bronchus probably on the basis of transbronchial extension from the contuguous lymphadenopathy. mild upper lobe opacity seen probably on basis of mild obstructive atelectasis. moderate R sided and small to moderate L sided pleural effusions are noted layering posteriorly. there is nonspecific enlargement of the L adrenal gland measuring 2.5 x 1.1cm. healed right rib fx posteriorly RUQ u/s: non-mobile gallstones without sonographic evidence of acute cholecystitis. hepatomegaly, mild fatty liver. R pleural effusion. Brain MRI: 0.7 cm enhancing lesion consistent with metastatic neoplastic dz in the L cerebellar hemisphere. no perilesional edema is seen. a subtle 0.3cm additional neoplastic lesion is noted in the R occipital lobe posteriorly with minimal perilesional edema. smal supratentorial and infratentorial chronic infarcts are noted. C-spine MRI/T-spine MRI: mild degenerative disc disease. no evidence of stenosis. in the thoracic spine there is a R paraspinal soft tissue mass 5.3x 5.3 cm with enhancement. mass is involving the R lateral aspect of T3 vertebral body with abnormal signal intensity identified. bone destruction with R transverse process of T3, right pedicle and probably extending to the Right lamina are present. mass is extending into right lateral aspect of spinal canal with mass effect on thecal sac and slightly displacing the upper thoracic cord towards left. it is extending to T2-T3 and right T3-T4 neural foramen. the right extradural soft tissue mass in the spinal canal is extending from lower T2 down to lower T4 level but os more prominent at T4. no cord compression is evident. ASSESSMENT/PLAN: 68 y/o M from [facility] with hx schizophrenia, MDD, afib, DM, HLD, CAD, with newly diagnosed lung CA who initially presented on last admission with RUL mass a/w mediastinal KAYLYN, erosion of T3, R 3rd rib and newly dx brain mets. Pt has returned for concern of cord compression. #RUL mass a/w mediastinal LN erosion of T3, R3rd rib, newly dx brain mets -was concern for cord compression -s/p CT for markings, started on RT to T3 spine* -on IV decadron 4mg IVPB BID, per onc -per psych, pt without capacity. -per palliative, may require 2 physician consent for procedure -Psych: Dr. Singleton -Rad onc: Dr. Bose -Onc: Dr. Avalos -neurosx consulted by team for additional opinion #DM -c/w ISS, BGM ACHS #schizophrenia, MDD -c/w abilify -c/w cogentin #afib -c/w xarelto -rate control w/ cardiazem, toprol #F/E/N does not need IVF continue to follow lytes diabetic/sodium controlled diet #PPX DVT: on xarelto GI: protonix #Dispo radiation therapy, per onc and rad-onc <Margy Cabrera - Last Filed: 03/27/19 13:57> - Note Progress Note: Seen and examined; please see resident note for further historical information. I personally verified all st[place] historical information and exam findings. Personally interpreted all imaging and diagnostics and reviewed appropriate consults. I reviewed all labs and vital signs as per resident note and EMR as documented. I agree with the above assessment and plan unless supplemented by myself in the following. No new complaints. Given the holiday will not be going for radiation treatment today. Got the markers placed yesterday. Has no new complaints. Continues with steroids which is the etiology of the leukocytosis. Labs in the morning. Overall he remains in good spirits but lacks capacity to make formal medical decisions. Please see prior ethics consultation for discussion. This is secondary to his underlying schizophrenia with acute to subacute worsening given the cognitive deficits associated with the structural changes due to the brain mets. 10 sys ROS done and negative aside from HPI GENERAL: The patient is awake, alert, and fully oriented, in no acute distress. HEAD: Normal with no signs of trauma. EYES: PERRL, extraocular movements intact, sclera anicteric, conjunctiva clear. No ptosis. ENT: Ears normal, nares patent, oropharynx clear without exudates, moist mucous membranes. NECK: Trachea midline, full range of motion, supple. LUNGS: Breath sounds equal, clear to auscultation bilaterally, no wheezes, no crackles, no accessory muscle use. HEART: Regular rate and rhythm, S1, S2 without murmur, rub or gallop. ABDOMEN: Soft, nontender, nondistended, normoactive bowel sounds Skin: warm, well-perfused, no edema. NEUROLOGICAL: Cranial nerves II through XII grossly intact. Normal speech, gait not observed. PSYCH: No SI/HI, flight of ideas, poor thought progression No new diagnostics indicated A/P: Patient with newly diagnosed poorly differentiated lung CA (oncology and rad onc following) who initially presented on last admission with RUL mass a/w mediastinal KAYLYN, erosion of T3, R 3rd rib and newly dx brain mets. Pt has returned for concern of cord compression and may be treated with radiation therapy. No progressive neuro symptoms noted again today. Lacks capacity. Ethics consult noted; 2-PC would have to be obtained. Discussed with resident team and ethics. 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 Will require ongoing 2PC for medical decisions due to lack of capacity-ethics consult noted. Intent of tx is palliative and to avoid catastrophic neurological damage. Stable exam. Complete radiation tx inpatient. Full Code <Miles Antonio - Last Filed: 03/27/19 14:10>
[2019-03-27] MEDS ORDERED: INSULIN (NOVOLOG) ASPART 100 UNITS/ML 10ML VIAL ONE (17:39)
[2019-03-27] MEDS: RIVAROXABAN 20 MG TABLET PO SCH (17:41)
[2019-03-28] MEDS ORDERED: PT OWN MED DRAWER 7, Y5N ONE (06:01)
[2019-03-28] MEDS: dilTIAZem HCL 30 MG TABLET (FP) PO SCH ×3 (06:35→21:13)
[2019-03-28] MEDS: INSULIN SLIDING SCALE (NOVOLOG) 1 VIAL SQ SCH ×4 (06:35→21:13)
[2019-03-28 08:37] LABS: BASO % 0.2 % (0-2.0); HEMATOCRIT 35.5 % (35.4-49); HEMOGLOBIN 11.4 GM/dL (11.7-16.9); LYMPH % 4.1 % (8-40); MCH 25.3 pg (25.7-33.7); MCHC 32.3 g/dl (32.0-35.9); MEAN CELL VOLUME 78.4 fl (80-96); MEAN PLT VOLUME 8.9 fl (7.5-11.1); MONO % 3.2 % (3.8-10.2); NEUT % 92.5 % (42.8-82.8); PLATELET COUNT 237 K/MM3 (134-434); RBC 4.53 M/mm3 (4.00-5.60); RDW 26.2 % (11.9-15.9); WHITE BLOOD COUNT 19.1 K/mm3 (4.0-10.0)
[2019-03-28 08:54] LABS: BLOOD UREA NITROGEN 29.4 mg/dL (7-18); CALCIUM 8.4 mg/dL (8.5-10.1); CREATININE 0.6 mg/dL (0.55-1.3); MAGNESIUM 2.1 mg/dL (1.8-2.4); PHOSPHOROUS 3.4 mg/dL (2.5-4.9); POTASSIUM 4.3 mmol/L (3.5-5.1)
[2019-03-28] MEDS: LISINOPRIL 5 MG TABLET (FP) PO SCH (09:38)
[2019-03-28] MEDS: DEXAMETHASONE SOD PHOSPHATE 4 MG/1 ML VIAL IVPUSH SCH ×2 (09:38→21:13)
[2019-03-28] MEDS: FUROSEMIDE 20 MG TABLET (FP) PO SCH (09:38)
[2019-03-28] MEDS: ASCORBIC ACID 500 MG TABLET (FP) PO SCH (09:38)
[2019-03-28] MEDS: CHOLECALCIFEROL (VIT D3) 400 UNIT (10 MCG) TABLET PO SCH (09:38)
[2019-03-28] MEDS: PANTOPRAZOLE 40 MG TABLET (FP) PO SCH (09:38)
[2019-03-28] MEDS: CALCIUM (OYSTER SHELL) 500 MG TABLET (FP) PO SCH (09:39)
[2019-03-28] MEDS: ARIPiprazole 5 MG TABLET (FP) PO SCH (09:39)
[2019-03-28] MEDS: BENZTROPINE MESYLATE 0.5 MG TABLET (FP) PO SCH (09:44)
[2019-03-28] MEDS: NYSTATIN 100000 UNIT/GM TOPICAL OINTMENT 15 GM TUBE TP SCH ×2 (09:49→21:14)
--- NOTE | 2019-03-28 10:26 | PN ---
Progress Note (short form) - Note Progress Note: Patient seen and examined Offers no complaints on ROS Last Vital Signs Temp Pulse Resp BP Pulse Ox 97.5 F L 86 20 100/68 97 03/28/19 05:00 03/28/19 05:00 03/28/19 05:00 03/28/19 05:00 03/26/19 21:00 HEENT: GENNY, EOM Intact Oropharynx: No thrush, No mucositis Cor:atrial fib Lungs: Clear to P&A Abd: Soft, Normal bowel sounds, No organomegaly Ext:No significant edema Skin: No rashes, Integument intact CBC, BMP 03/28/19 08:05 03/28/19 08:05 Current Medications Generic Name Dose Route Start Last Admin Trade Name Freq PRN Reason Stop Dose Admin Acetaminophen 650 mg 03/21/19 15:04 Tylenol - PO Q6H PRN PAIN LEVEL 1-5 Aripiprazole 5 mg 03/22/19 10:00 03/28/19 09:39 Abilify PO 5 mg DAILY JONATHON Administration Ascorbic Acid 500 mg 03/22/19 10:00 03/28/19 09:38 Vitamin C - PO 500 mg DAILY JONATHON Administration Benztropine Mesylate 0.5 mg 03/22/19 10:00 03/28/19 09:44 Cogentin - PO 0.5 mg DAILY JONATHON Administration Calcium Carbonate 500 mg 03/22/19 10:00 03/28/19 09:39 Os-Davey 500mg - PO 500 mg DAILY JONATHON Administration Cholecalciferol 400 unit 03/22/19 10:00 03/28/19 09:38 Vitamin D3 - PO 400 unit DAILY JONATHON Administration Dexamethasone Sodium Phosphate 4 mg 03/23/19 22:00 03/28/19 09:38 Decadron Injection - IVPUSH 4 mg BID JONATHON Administration Diltiazem HCl 30 mg 03/21/19 22:00 03/28/19 06:35 Cardizem - PO 30 mg TID JONATHON Administration Furosemide 20 mg 03/22/19 10:00 03/28/19 09:38 Lasix - PO 20 mg DAILY JONATHNO Administration Insulin Aspart 1 vial 03/21/19 16:30 03/28/19 06:35 Novolog Vial Sliding Scale - SQ 2 units ACHS JONATHON Administration Protocol Lisinopril 2.5 mg 03/22/19 10:00 03/28/19 09:38 Prinivil PO 2.5 mg DAILY JONATHON Administration Metoprolol Succinate 100 mg 03/21/19 22:00 03/28/19 09:38 Toprol Xl - PO 100 mg BID JONATHON Administration Nystatin 1 applic 03/21/19 22:00 03/28/19 09:49 Mycostatin Ointment - TP 1 applic BID JONATHON Administration Pantoprazole Sodium 40 mg 03/22/19 12:45 03/28/19 09:38 Protonix - PO 40 mg DAILY JONATHON Administration Rivaroxaban 20 mg 03/21/19 18:00 03/27/19 17:41 Xarelto PO 20 mg DAILY@1800 JONATHON Administration Impression: metastatic Lung ca - GEOLOGICAL SAMPLE TESTER,Spine, obstructing RUL, mediastinum, adrenal mets RT to T3 Schizophrenia Current therapy.
[2019-03-28 10:52] LABS: ANISOCYTOSIS 1+; MACROCYTOSIS 0; PLATELET ESTIMATE NORMAL; ROULEAU 1+; TARGET CELLS 1+
--- NOTE | 2019-03-28 11:38 | PN ---
Progress Note (short form) - Note Progress Note: Hospitalist Medicine Sitting up in bed. Crying, talking about "pointing a revolver"
--- NOTE | 2019-03-28 12:19 | PN ---
Physical Exam: SUBJECTIVE: Patient seen and examined OBJECTIVE: Vital Signs Period Temp Pulse Resp BP Sys/Stock Pulse Ox Last 24 Hr 97.2 F-98.6 F 80-104 18-20 94-110/59-68 GENERAL: The patient is awake, alert, and fully oriented, in no acute distress. HEAD: Normal with no signs of trauma. EYES: PERRL, extraocular movements intact, sclera anicteric, conjunctiva clear. No ptosis. ENT: Ears normal, nares patent, oropharynx clear without exudates, moist mucous membranes. NECK: Trachea midline, full range of motion, supple. LUNGS: Breath sounds equal, clear to auscultation bilaterally, no wheezes, no crackles, no accessory muscle use. HEART: Regular rate and rhythm, S1, S2 without murmur, rub or gallop. ABDOMEN: Soft, nontender, nondistended, normoactive bowel sounds, no guarding, no rebound, no hepatosplenomegaly, no masses. EXTREMITIES: 2+ pulses, warm, well-perfused, no edema. NEUROLOGICAL: Cranial nerves II through XII grossly intact. Normal speech, gait not observed. PSYCH: Normal mood, normal affect. SKIN: Warm, dry, normal turgor, no rashes or lesions noted Laboratory Results - last 24 hr 03/27/19 03/27/19 03/27/19 12:25 16:51 21:57 WBC RBC Hgb Hct MCV MCH MCHC RDW Plt Count MPV Absolute Neuts (auto) Neutrophils % Neutrophils % (Manual) Band Neutrophils % Lymphocytes % Lymphocytes % (Manual) Monocytes % Monocytes % (Manual) Eosinophils % Eosinophils % (Manual) Basophils % Basophils % (Manual) Myelocytes % (Man) Promyelocytes % (Man) Blast Cells % (Manual) Nucleated RBC % Metamyelocytes Hypochromia Platelet Estimate Polychromasia Poikilocytosis Anisocytosis Microcytosis Macrocytosis Target Cells Rouleaux Schistocytes Sodium Potassium Chloride Carbon Dioxide Anion Gap BUN Creatinine Est GFR (CKD-EPI)AfAm Est GFR (CKD-EPI)NonAf POC Glucometer 159 260 165 Random Glucose Calcium Phosphorus Magnesium 03/28/19 03/28/19 03/28/19 06:32 08:05 08:05 WBC 19.1 H RBC 4.53 Hgb 11.4 L Hct 35.5 MCV 78.4 L MCH 25.3 L MCHC 32.3 RDW 26.2 H Plt Count 237 MPV 8.9 Absolute Neuts (auto) 17.6 H Neutrophils % 92.5 H Neutrophils % (Manual) 94.0 H Band Neutrophils % 0.0 Lymphocytes % 4.1 L Lymphocytes % (Manual) 3.0 L D Monocytes % 3.2 L Monocytes % (Manual) 2 L Eosinophils % 0.0 D Eosinophils % (Manual) 0.0 Basophils % 0.2 Basophils % (Manual) 0.0 Myelocytes % (Man) 0 Promyelocytes % (Man) 0 Blast Cells % (Manual) 0 Nucleated RBC % 0 Metamyelocytes 1 D Hypochromia 1+ Platelet Estimate Normal Polychromasia 1+ Poikilocytosis 1+ Anisocytosis 1+ Microcytosis 1+ Macrocytosis 0 Target Cells 1+ Rouleaux 1+ Schistocytes 1+ Sodium 133 L Potassium 4.3 Chloride 98 Carbon Dioxide 29 Anion Gap 6 L BUN 29.4 H Creatinine 0.6 Est GFR (CKD-EPI)AfAm 121.43 Est GFR (CKD-EPI)NonAf 104.77 POC Glucometer 164 Random Glucose 148 H Calcium 8.4 L Phosphorus 3.4 Magnesium 2.1 03/28/19 11:23 WBC RBC Hgb Hct MCV MCH MCHC RDW Plt Count MPV Absolute Neuts (auto) Neutrophils % Neutrophils % (Manual) Band Neutrophils % Lymphocytes % Lymphocytes % (Manual) Monocytes % Monocytes % (Manual) Eosinophils % Eosinophils % (Manual) Basophils % Basophils % (Manual) Myelocytes % (Man) Promyelocytes % (Man) Blast Cells % (Manual) Nucleated RBC % Metamyelocytes Hypochromia Platelet Estimate Polychromasia Poikilocytosis Anisocytosis Microcytosis Macrocytosis Target Cells Rouleaux Schistocytes Sodium Potassium Chloride Carbon Dioxide Anion Gap BUN Creatinine Est GFR (CKD-EPI)AfAm Est GFR (CKD-EPI)NonAf POC Glucometer 159 Random Glucose Calcium Phosphorus Magnesium Active Medications Generic Name Dose Route Start Last Admin Trade Name Freq PRN Reason Stop Dose Admin Acetaminophen 650 mg 03/21/19 15:04 Tylenol - PO Q6H PRN PAIN LEVEL 1-5 Aripiprazole 5 mg 03/22/19 10:00 03/28/19 09:39 Abilify PO 5 mg DAILY JONATHON Administration Ascorbic Acid 500 mg 03/22/19 10:00 03/28/19 09:38 Vitamin C - PO 500 mg DAILY JONATHON Administration Benztropine Mesylate 0.5 mg 03/22/19 10:00 03/28/19 09:44 Cogentin - PO 0.5 mg DAILY JONATHON Administration Calcium Carbonate 500 mg 03/22/19 10:00 03/28/19 09:39 Os-Davey 500mg - PO 500 mg DAILY JONATHON Administration Cholecalciferol 400 unit 03/22/19 10:00 03/28/19 09:38 Vitamin D3 - PO 400 unit DAILY JONATHON Administration Dexamethasone Sodium Phosphate 4 mg 03/23/19 22:00 03/28/19 09:38 Decadron Injection - IVPUSH 4 mg BID JONATHON Administration Diltiazem HCl 30 mg 03/21/19 22:00 03/28/19 06:35 Cardizem - PO 30 mg TID JONATHON Administration Furosemide 20 mg 03/22/19 10:00 03/28/19 09:38 Lasix - PO 20 mg DAILY JONATHON Administration Insulin Aspart 1 vial 03/21/19 16:30 03/28/19 06:35 Novolog Vial Sliding Scale - SQ 2 units ACHS JONATHON Administration Protocol Lisinopril 2.5 mg 03/22/19 10:00 03/28/19 09:38 Prinivil PO 2.5 mg DAILY JONATHON Administration Metoprolol Succinate 100 mg 03/21/19 22:00 03/28/19 09:38 Toprol Xl - PO 100 mg BID JONATHON Administration Nystatin 1 applic 03/21/19 22:00 03/28/19 09:49 Mycostatin Ointment - TP 1 applic BID JONATHON Administration Pantoprazole Sodium 40 mg 03/22/19 12:45 03/28/19 09:38 Protonix - PO 40 mg DAILY JONATHON Administration Rivaroxaban 20 mg 03/21/19 18:00 03/27/19 17:41 Xarelto PO 20 mg DAILY@1800 JONATHON Administration ASSESSMENT/PLAN: Seen and examined; please see resident note for further historical information. I personally verified all stanton historical information and exam findings. Personally interpreted all imaging and diagnostics and reviewed appropriate consults. I reviewed all labs and vital signs as per resident note and EMR as documented. I agree with the above assessment and plan unless supplemented by myself in the following. No new complaints. Has no new complaints. Continues with steroids which is the etiology of the leukocytosis. Labs in the morning. Overall he remains in good spirits but lacks capacity to make formal medical decisions. Please see prior ethics consultation for discussion. This is secondary to his underlying schizophrenia with acute to subacute worsening given the cognitive deficits associated with the structural changes due to the brain mets. 10 sys ROS done and negative aside from HPI GENERAL: The patient is awake, alert, and fully oriented, in no acute distress. HEAD: Normal with no signs of trauma. EYES: PERRL, extraocular movements intact, sclera anicteric, conjunctiva clear. No ptosis. ENT: Ears normal, nares patent, oropharynx clear without exudates, moist mucous membranes. NECK: Trachea midline, full range of motion, supple. LUNGS: Breath sounds equal, clear to auscultation bilaterally, no wheezes, no crackles, no accessory muscle use. HEART: Regular rate and rhythm, S1, S2 without murmur, rub or gallop. ABDOMEN: Soft, nontender, nondistended, normoactive bowel sounds Skin: warm, well-perfused, no edema. NEUROLOGICAL: Cranial nerves II through XII grossly intact. Normal speech, gait not observed. PSYCH: No SI/HI, flight of ideas, poor thought progression No new diagnostics indicated A/P: Patient with newly diagnosed poorly differentiated lung CA (oncology and rad onc following) who initially presented on last admission with RUL mass a/w mediastinal KAYLYN, erosion of T3, R 3rd rib and newly dx brain mets. Pt has returned for concern of cord compression and may be treated with radiation therapy. No progressive neuro symptoms noted again today. Lacks capacity. Continues with inpatient radiation; tolerated well. Seen as he was arriving back. Still with poor insight. 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 Will require ongoing 2PC for medical decisions due to lack of capacity-ethics consult noted. Intent of tx is palliative and to avoid catastrophic neurological damage. Stable exam. Complete radiation tx inpatient. Full Code Visit type - Emergency Visit Emergency Visit: Yes ED Registration Date: 03/21/19 Care time: The patient presented to the Emergency Department on the above date and was hospitalized for further evaluation of their emergent condition. - New Patient This patient is new to me today: No - Critical Care Critical Care patient: No
--- NOTE | 2019-03-28 14:58 | PN ---
Progress Note (short form) - Note Progress Note: Radiation Oncology Began RT to T-spine/RUL paraspinal mass today without difficulty. Exam stable. Plan 4 more fractions, will cont on Sunday. Cont decadron and neurologic monitoring.
[2019-03-28] MEDS: RIVAROXABAN 20 MG TABLET PO SCH (17:49)
[2019-03-29] MEDS: INSULIN SLIDING SCALE (NOVOLOG) 1 VIAL SQ SCH ×4 (07:16→22:11)
[2019-03-29] MEDS: dilTIAZem HCL 30 MG TABLET (FP) PO SCH ×3 (07:17→22:11)
--- NOTE | 2019-03-29 09:39 | PN ---
Physical Exam: SUBJECTIVE: Patient seen and examined; per neurosurgical eval: "if the lesion at T3 was not responsive to radiation, it would be relatively straightforward to remove. Since this time, the patient has been determined not to be able to fully make his medical decisions, however, he has some capacity to reject offers of care. He remains able to lift both of his legs against gravity and radiation therapy has commenced. At this point, there remains no indication/plans for acute Neurosurgical intervention." No new neuro symptoms or FNDs. Strength at baseline. Resuming radiation tx tomorrow. 10 sys ROS done and negative aside from HPI OBJECTIVE: Vital Signs Period Temp Pulse Resp BP Sys/Stock Pulse Ox Last 24 Hr 97.5 F-98.8 F 82-96 18-20 100-108/58-72 GENERAL: The patient is awake, alert, and fully oriented, in no acute distress. HEAD: Normal with no signs of trauma. EYES: PERRL, extraocular movements intact, sclera anicteric, conjunctiva clear. No ptosis. ENT: Ears normal, nares patent, oropharynx clear without exudates, moist mucous membranes. NECK: Trachea midline, full range of motion, supple. LUNGS: Breath sounds equal, clear to auscultation bilaterally, no wheezes, no crackles, no accessory muscle use. HEART: Regular rate and rhythm, S1, S2 without murmur, rub or gallop. ABDOMEN: Soft, nontender, nondistended, normoactive bowel sounds, no guarding, no rebound, no hepatosplenomegaly, no masses. EXTREMITIES: 2+ pulses, warm, well-perfused, no edema. NEUROLOGICAL: Cranial nerves II through XII grossly intact. Normal speech, gait not observed. PSYCH: Normal mood, normal affect. SKIN: Warm, dry, normal turgor, no rashes or lesions noted Laboratory Results - last 24 hr 03/28/19 03/28/19 03/28/19 08:05 11:23 17:53 Neutrophils % (Manual) 94.0 H Band Neutrophils % 0.0 Lymphocytes % (Manual) 3.0 L D Monocytes % (Manual) 2 L Eosinophils % (Manual) 0.0 Basophils % (Manual) 0.0 Myelocytes % (Man) 0 Promyelocytes % (Man) 0 Blast Cells % (Manual) 0 Nucleated RBC % 0 Metamyelocytes 1 D Hypochromia 1+ Platelet Estimate Normal Polychromasia 1+ Poikilocytosis 1+ Anisocytosis 1+ Microcytosis 1+ Macrocytosis 0 Target Cells 1+ Rouleaux 1+ Schistocytes 1+ POC Glucometer 159 223 03/28/19 03/29/19 21:10 07:15 Neutrophils % (Manual) Band Neutrophils % Lymphocytes % (Manual) Monocytes % (Manual) Eosinophils % (Manual) Basophils % (Manual) Myelocytes % (Man) Promyelocytes % (Man) Blast Cells % (Manual) Nucleated RBC % Metamyelocytes Hypochromia Platelet Estimate Polychromasia Poikilocytosis Anisocytosis Microcytosis Macrocytosis Target Cells Rouleaux Schistocytes POC Glucometer 167 165 Active Medications Generic Name Dose Route Start Last Admin Trade Name Freq PRN Reason Stop Dose Admin Acetaminophen 650 mg 03/21/19 15:04 Tylenol - PO Q6H PRN PAIN LEVEL 1-5 Aripiprazole 5 mg 03/22/19 10:00 03/28/19 09:39 Abilify PO 5 mg DAILY JONATHON Administration Ascorbic Acid 500 mg 03/22/19 10:00 03/28/19 09:38 Vitamin C - PO 500 mg DAILY JONATHON Administration Benztropine Mesylate 0.5 mg 03/22/19 10:00 03/28/19 09:44 Cogentin - PO 0.5 mg DAILY JONATHON Administration Calcium Carbonate 500 mg 03/22/19 10:00 03/28/19 09:39 Os-Davey 500mg - PO 500 mg DAILY JONATHON Administration Cholecalciferol 400 unit 03/22/19 10:00 03/28/19 09:38 Vitamin D3 - PO 400 unit DAILY JONATHON Administration Dexamethasone Sodium Phosphate 4 mg 03/23/19 22:00 03/28/19 21:13 Decadron Injection - IVPUSH 4 mg BID JONATHON Administration Diltiazem HCl 30 mg 03/21/19 22:00 03/29/19 07:17 Cardizem - PO 30 mg TID JONATHON Administration Furosemide 20 mg 03/22/19 10:00 03/28/19 09:38 Lasix - PO 20 mg DAILY JONATHON Administration Insulin Aspart 1 vial 03/21/19 16:30 03/29/19 07:16 Novolog Vial Sliding Scale - SQ 2 units ACHS JONATHON Administration Protocol Lisinopril 2.5 mg 03/22/19 10:00 03/28/19 09:38 Prinivil PO 2.5 mg DAILY JONATHON Administration Metoprolol Succinate 100 mg 03/21/19 22:00 03/28/19 21:13 Toprol Xl - PO 100 mg BID JONATHON Administration Nystatin 1 applic 03/21/19 22:00 03/28/19 21:14 Mycostatin Ointment - TP 1 applic BID JONATHON Administration Pantoprazole Sodium 40 mg 03/22/19 12:45 03/28/19 09:38 Protonix - PO 40 mg DAILY JONATHON Administration Rivaroxaban 20 mg 03/21/19 18:00 03/28/19 17:49 Xarelto PO 20 mg DAILY@1800 JONATHON Administration ASSESSMENT/PLAN: Patient with newly diagnosed poorly differentiated lung CA (oncology and rad onc following) who initially presented on last admission with RUL mass a/w mediastinal KAYLYN, erosion of T3, R 3rd rib and newly dx brain mets. Pt has returned for concern of cord compression and may be treated with radiation therapy. No progressive neuro symptoms noted again today. Lacks capacity. Continues with inpatient radiation; tolerated well. Seen as he was arriving back. Still with poor insight. Neurosurgical input noted. Continue to monitor his progression of symptoms with rad onc tx. 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 Will require ongoing 2P for medical decisions due to lack of capacity-ethics consult noted. Intent of tx is palliative and to avoid catastrophic neurological damage. Stable exam. Complete radiation tx inpatient. Full Code Visit type - Emergency Visit Emergency Visit: Yes ED Registration Date: 03/21/19 Care time: The patient presented to the Emergency Department on the above date and was hospitalized for further evaluation of their emergent condition. - New Patient This patient is new to me today: No - Critical Care Critical Care patient: No
[2019-03-29] MEDS ORDERED: PT OWN MED DRAWER 7, Y5N ONE ×2 (10:18→21:19)
[2019-03-29] MEDS: ASCORBIC ACID 500 MG TABLET (FP) PO SCH (10:24)
[2019-03-29] MEDS: PANTOPRAZOLE 40 MG TABLET (FP) PO SCH (10:24)
[2019-03-29] MEDS: LISINOPRIL 5 MG TABLET (FP) PO SCH (10:24)
[2019-03-29] MEDS: CHOLECALCIFEROL (VIT D3) 400 UNIT (10 MCG) TABLET PO SCH (10:24)
[2019-03-29] MEDS: ARIPiprazole 5 MG TABLET (FP) PO SCH (10:24)
[2019-03-29] MEDS: FUROSEMIDE 20 MG TABLET (FP) PO SCH (10:24)
[2019-03-29] MEDS: CALCIUM (OYSTER SHELL) 500 MG TABLET (FP) PO SCH (10:24)
[2019-03-29] MEDS: DEXAMETHASONE SOD PHOSPHATE 4 MG/1 ML VIAL IVPUSH SCH (10:25)
[2019-03-29] MEDS: BENZTROPINE MESYLATE 0.5 MG TABLET (FP) PO SCH (10:27)
[2019-03-29] MEDS: NYSTATIN 100000 UNIT/GM TOPICAL OINTMENT 15 GM TUBE TP SCH ×2 (10:29→22:11)
--- NOTE | 2019-03-29 10:46 | PN ---
Progress Note (short form) - Note Progress Note: Patient seen in follow up. No new complaints. Denies pain, shortness of breath, or cough.. Doesn't appear to have much insight in his disease. Inpatient Meds reviewed. Current Medications Acetaminophen (Tylenol -) 650 mg PO Q6H PRN PRN Reason: PAIN LEVEL 1-5 Aripiprazole (Abilify) 5 mg PO DAILY [facility] Last Admin: 03/29/19 10:24 Dose: 5 mg Ascorbic Acid (Vitamin C -) 500 mg PO DAILY [facility] Last Admin: 03/29/19 10:24 Dose: 500 mg Benztropine Mesylate (Cogentin -) 0.5 mg PO DAILY [facility] Last Admin: 03/29/19 10:27 Dose: 0.5 mg Calcium Carbonate (Os-Davey 500mg -) 500 mg PO DAILY [facility] Last Admin: 03/29/19 10:24 Dose: 500 mg Cholecalciferol (Vitamin D3 -) 400 unit PO DAILY [facility] Last Admin: 03/29/19 10:24 Dose: 400 unit Dexamethasone Sodium Phosphate (Decadron Injection -) 4 mg IVPUSH BID [facility] Last Admin: 03/29/19 10:25 Dose: 4 mg Diltiazem HCl (Cardizem -) 30 mg PO TID [facility] Last Admin: 03/29/19 07:17 Dose: 30 mg Furosemide (Lasix -) 20 mg PO DAILY [facility] Last Admin: 03/29/19 10:24 Dose: 20 mg Insulin Aspart (Novolog Vial Sliding Scale -) 1 vial SQ [facility]; Protocol Last Admin: 03/29/19 07:16 Dose: 2 units Lisinopril (Prinivil) 2.5 mg PO DAILY [facility] Last Admin: 03/29/19 10:24 Dose: 2.5 mg Metoprolol Succinate (Toprol Xl -) 100 mg PO BID [facility] Last Admin: 03/29/19 10:24 Dose: 100 mg Nystatin (Mycostatin Ointment -) 1 applic TP BID [facility] Last Admin: 03/29/19 10:29 Dose: 1 applic Pantoprazole Sodium (Protonix -) 40 mg PO DAILY [facility] Last Admin: 03/29/19 10:24 Dose: 40 mg Rivaroxaban (Xarelto) 20 mg PO DAILY@1800 [facility] Last Admin: 03/28/19 17:49 Dose: 20 mg On Examination: Last Vital Signs Temp Pulse Resp BP Pulse Ox 98.0 F 103 H 19 108/68 97 03/29/19 10:00 03/29/19 10:00 03/29/19 10:00 03/29/19 10:00 03/26/19 21:00 General: In no acute distress, lying comfortably in bed. Extremities: No pallor or icterus. No pedal edema. No palpable lymphadenopathy. CVS: S1, S2, regular, no gallop or murmur. Chest: good air entry bilaterally, clear Abdomen: Non-distended, non-tender, no palpable organomegaly. Neuro: Alert, responsive. Labs: CBC, BMP 03/28/19 08:05 03/28/19 08:05 Assessment. Newly diagnosed metastatic NSCLC, with a paraspinal lesion, and a mass in the R bronchus (et al), admitted for consideration of radiation of said lesions. Good performance status, but treatment barbara be complicated by his impaired decision making ability (schizophrenic). Undergoing palliative RTX now. Can reduce dose steroids, and change to po
--- NOTE | 2019-03-29 14:28 | CONSULT ---
Consult - text type - Consultation Consultation Note: NEUROSURGERY CONSULTATION Julio Theodore is a 68 year old male with newly diagnosed Lung cancer who was readmitted earlier this week. I evaluated him on Sunday and found him to be Neurologically nonfocal and not complaining of pain, although he was not ambulatory. His ability to consent for treatment had not been established at that time. He was noted to have two very small intracranial foci which likely represent metastatic lesions. He also had a lesion based in the region of the Right pedicle of T3 with a paraspinal mass lesion of 3-4 cm and associated fluid collection/effusion. There was epidural soft tissue extension which mildly deflected his spinal cord. Given his extent of disease and the uncertainty of his ability to consent to treatment, I discussed his case with Dr. Cabrera including my sentiment that acute Neurosurgical intervention was likely not required, however, if the lesion at T3 was not responsive to radiation, it would be relatively straightforward to remove. Since this time, the patient has been determined not to be able to fully make his medical decisions, however, he has some capacity to reject offers of care. He remains able to lift both of his legs against gravity and radiation therapy has commenced. At this point, there remains no indication/plans for acute Neurosurgical intervention. Will follow.
[2019-03-29] MEDS: RIVAROXABAN 20 MG TABLET PO SCH (17:28)
[2019-03-29] MEDS: DEXAMETHASONE 1.5 MG TABLET PO SCH (22:11)
[2019-03-30] MEDS: dilTIAZem HCL 30 MG TABLET (FP) PO SCH ×3 (06:04→21:13)
[2019-03-30] MEDS: INSULIN SLIDING SCALE (NOVOLOG) 1 VIAL SQ SCH ×4 (06:05→21:14)
--- NOTE | 2019-03-30 09:35 | PN ---
Physical Exam: SUBJECTIVE: Patient seen and examined; he talked [place]. No new complaints. He is stable and afebrile and resting in bed. He has no progressing neurological issues and states he 'feels fine.' I asked him what he understands about the illness and he was not meaningfully able to rationalize it again. Continue with RT per rad onc; nsgy input noted. Appreciate subspecialty guidance in the ongoing management of this patient. 10 sys ROS done and negative aside from HPI. OBJECTIVE: Vital Signs Period Temp Pulse Resp BP Sys/Stock Pulse Ox Last 24 Hr 97.2 F-98.5 F 84-103 18-20 95-113/63-74 GENERAL: The patient is awake, alert, and fully oriented, in no acute distress. HEAD: Normal with no signs of trauma. EYES: PERRL, extraocular movements intact, sclera anicteric, conjunctiva clear. No ptosis. ENT: Ears normal, nares patent, oropharynx clear without exudates, moist mucous membranes. NECK: Trachea midline, full range of motion, supple. LUNGS: Breath sounds equal, clear to auscultation bilaterally, no wheezes, no crackles, no accessory muscle use. HEART: Regular rate and rhythm, S1, S2 without murmur, rub or gallop. ABDOMEN: Soft, nontender, nondistended, normoactive bowel sounds EXTREMITIES: 2+ pulses, warm, well-perfused, no edema. NEUROLOGICAL: Cranial nerves II through XII grossly intact. Normal speech, gait not observed. PSYCH: Normal mood, normal affect. SKIN: Warm, dry, normal turgor, no rashes or lesions noted Laboratory Results - last 24 hr 03/29/19 03/29/19 03/29/19 12:25 17:26 22:09 POC Glucometer 266 166 287 03/30/19 05:43 POC Glucometer 197 Active Medications Generic Name Dose Route Start Last Admin Trade Name Freq PRN Reason Stop Dose Admin Acetaminophen 650 mg 03/21/19 15:04 Tylenol - PO Q6H PRN PAIN LEVEL 1-5 Aripiprazole 5 mg 03/22/19 10:00 03/29/19 10:24 Abilify PO 5 mg DAILY JONATHON Administration Ascorbic Acid 500 mg 03/22/19 10:00 03/29/19 10:24 Vitamin C - PO 500 mg DAILY JONATHON Administration Benztropine Mesylate 0.5 mg 03/22/19 10:00 03/29/19 10:27 Cogentin - PO 0.5 mg DAILY JONATHON Administration Calcium Carbonate 500 mg 03/22/19 10:00 03/29/19 10:24 Os-Davey 500mg - PO 500 mg DAILY JONATHON Administration Cholecalciferol 400 unit 03/22/19 10:00 03/29/19 10:24 Vitamin D3 - PO 400 unit DAILY JONATHON Administration Dexamethasone 3 mg 03/29/19 22:00 03/29/19 22:11 Decadron - PO 3 mg BID JONATHON Administration Diltiazem HCl 30 mg 03/21/19 22:00 03/30/19 06:04 Cardizem - PO 30 mg TID JONATHON Administration Furosemide 20 mg 03/22/19 10:00 03/29/19 10:24 Lasix - PO 20 mg DAILY JONATHON Administration Insulin Aspart 1 vial 03/21/19 16:30 03/30/19 06:05 Novolog Vial Sliding Scale - SQ 2 units ACHS JONATHON Administration Protocol Lisinopril 2.5 mg 03/22/19 10:00 03/29/19 10:24 Prinivil PO 2.5 mg DAILY JONATHON Administration Metoprolol Succinate 100 mg 03/21/19 22:00 03/29/19 22:11 Toprol Xl - PO 100 mg BID JONATHON Administration Nystatin 1 applic 03/21/19 22:00 03/29/19 22:11 Mycostatin Ointment - TP 1 applic BID JONATHON Administration Pantoprazole Sodium 40 mg 03/22/19 12:45 03/29/19 10:24 Protonix - PO 40 mg DAILY JONATHON Administration Rivaroxaban 20 mg 03/21/19 18:00 03/29/19 17:28 Xarelto PO 20 mg DAILY@1800 JONATHON Administration No new diagnostics ASSESSMENT/PLAN: Patient with newly diagnosed poorly differentiated lung CA (oncology and rad onc following) who initially presented on last admission with RUL mass a/w mediastinal KAYLYN, erosion of T3, R 3rd rib and newly dx brain mets. Pt has returned for concern of cord compression and may be treated with radiation therapy. No progressive neuro symptoms noted again today. Lacks capacity. Continues with inpatient radiation; tolerated well. Seen as he was arriving back. Still with poor insight. Neurosurgical input noted. Continue to monitor his progression of symptoms with rad onc tx. 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 Will require ongoing 2PC for medical decisions due to lack of capacity-ethics consult noted. Intent of tx is palliative and to avoid catastrophic neurological damage. Stable exam. Complete radiation tx inpatient. Full Code Visit type - Emergency Visit Emergency Visit: Yes ED Registration Date: 03/21/19 Care time: The patient presented to the Emergency Department on the above date and was hospitalized for further evaluation of their emergent condition. - New Patient This patient is new to me today: No - Critical Care Critical Care patient: No
[2019-03-30] MEDS ORDERED: PT OWN MED DRAWER 7, Y5N ONE ×2 (10:34→21:04)
[2019-03-30] MEDS: CALCIUM (OYSTER SHELL) 500 MG TABLET (FP) PO SCH (10:38)
[2019-03-30] MEDS: CHOLECALCIFEROL (VIT D3) 400 UNIT (10 MCG) TABLET PO SCH (10:38)
[2019-03-30] MEDS: ARIPiprazole 5 MG TABLET (FP) PO SCH (10:38)
[2019-03-30] MEDS: ASCORBIC ACID 500 MG TABLET (FP) PO SCH (10:38)
[2019-03-30] MEDS: PANTOPRAZOLE 40 MG TABLET (FP) PO SCH (10:38)
[2019-03-30] MEDS: DEXAMETHASONE 1.5 MG TABLET PO SCH ×2 (10:39→21:14)
[2019-03-30] MEDS: BENZTROPINE MESYLATE 0.5 MG TABLET (FP) PO SCH (10:39)
[2019-03-30] MEDS: NYSTATIN 100000 UNIT/GM TOPICAL OINTMENT 15 GM TUBE TP SCH ×2 (10:41→21:15)
[2019-03-30] MEDS: FUROSEMIDE 20 MG TABLET (FP) PO SCH (10:44)
[2019-03-30] MEDS: LISINOPRIL 5 MG TABLET (FP) PO SCH (10:44)
--- NOTE | 2019-03-30 13:04 | PN ---
Progress Note (short form) - Note Progress Note: Patient seen in follow up. No new complaints. Denies pain, shortness of breath, or cough.. Doesn't appear to have much insight in his disease. Inpatient Meds reviewed. Current Medications Generic Name Dose Route Start Last Admin Trade Name [place] PRN Reason Stop Dose Admin Acetaminophen 650 mg 03/21/19 15:04 Tylenol - PO Q6H PRN PAIN LEVEL 1-5 Aripiprazole 5 mg 03/22/19 10:00 03/30/19 10:38 Abilify PO 5 mg DAILY JONATHON Administration Ascorbic Acid 500 mg 03/22/19 10:00 03/30/19 10:38 Vitamin C - PO 500 mg DAILY JONATHON Administration Benztropine Mesylate 0.5 mg 03/22/19 10:00 03/30/19 10:39 Cogentin - PO 0.5 mg DAILY JONATHON Administration Calcium Carbonate 500 mg 03/22/19 10:00 03/30/19 10:38 Os-Davey 500mg - PO 500 mg DAILY JONATHON Administration Cholecalciferol 400 unit 03/22/19 10:00 03/30/19 10:38 Vitamin D3 - PO 400 unit DAILY JONATHON Administration Dexamethasone 3 mg 03/29/19 22:00 03/30/19 10:39 Decadron - PO 3 mg BID JONATHON Administration Diltiazem HCl 30 mg 03/21/19 22:00 03/30/19 06:04 Cardizem - PO 30 mg TID JONATHON Administration Furosemide 20 mg 03/22/19 10:00 03/30/19 10:44 Lasix - PO Not Given DAILY [facility] Insulin Aspart 1 vial 03/21/19 16:30 03/30/19 12:23 Novolog Vial Sliding Scale - SQ 2 units ACHS JONATHON Administration Protocol Lisinopril 2.5 mg 03/22/19 10:00 03/30/19 10:44 Prinivil PO Not Given DAILY JONATHON Metoprolol Succinate 100 mg 03/21/19 22:00 03/30/19 10:44 Toprol Xl - PO 100 mg BID JONATHON Administration Nystatin 1 applic 03/21/19 22:00 03/30/19 10:41 Mycostatin Ointment - TP 1 applic BID JONATHON Administration Pantoprazole Sodium 40 mg 03/22/19 12:45 03/30/19 10:38 Protonix - PO 40 mg DAILY JONATHON Administration Rivaroxaban 20 mg 03/21/19 18:00 03/29/19 17:28 Xarelto PO 20 mg DAILY@1800 JONATHON Administration On Examination: Last Vital Signs Temp Pulse Resp BP Pulse Ox 97.9 F 89 19 97/62 97 03/30/19 10:00 03/30/19 10:00 03/30/19 10:00 03/30/19 10:00 03/26/19 21:00 General: In no acute distress, lying comfortably in bed. Extremities: No pallor or icterus. No pedal edema. No palpable lymphadenopathy. CVS: S1, S2, regular, no gallop or murmur. Chest: good air entry bilaterally, clear Abdomen: Non-distended, non-tender, no palpable organomegaly. Neuro: Alert, responsive. Labs: (most recent) CBC, BMP 03/28/19 08:05 03/28/19 08:05 Assessment. Newly diagnosed metastatic NSCLC, with a paraspinal lesion, and a mass in the R bronchus (et al), admitted for consideration of radiation of said lesions. Good performance status, but treatment barbara be complicated by his impaired decision making ability (schizophrenic). Undergoing palliative RTX now. Taper steroids.
--- NOTE | 2019-03-30 13:06 | PN ---
Progress Note (short form) - Note Progress Note: PULMONARY RESTING COMFORTABLY VSS/AFEBRILE Constitutional: Yes: Well Nourished, Calm Eyes: Yes: WNL HENT: Yes: WNL Neck: Yes: WNL Cardiovascular: Yes: Pulse Irregular, S1, S2 Respiratory: Yes: CTA Bilaterally Gastrointestinal: Yes: Normal Bowel Sounds, Soft Extremities: Yes: WNL Edema: No Labs: REVIEWED Poorly differentiated metastatic Lung CA to Brain / spine CAD Atrial Fibrillation DM Hyperlipidemia Schizophrenia - Steroids - inhaled bronchodilators - as per oncology - rate controlled - continue anticoagulation Aguilar AUSTIN MD
[2019-03-30] MEDS: RIVAROXABAN 20 MG TABLET PO SCH (17:58)
[2019-03-31] MEDS ORDERED: PT OWN MED DRAWER 7, Y5N ONE ×2 (06:02→16:31)
[2019-03-31] MEDS: INSULIN SLIDING SCALE (NOVOLOG) 1 VIAL SQ SCH ×4 (06:26→21:24)
[2019-03-31] MEDS: dilTIAZem HCL 30 MG TABLET (FP) PO SCH ×3 (06:27→21:25)
[2019-03-31] MEDS ORDERED: DEXAMETHASONE 4 MG TABLET (FP) PO SCH (10:00)
--- NOTE | 2019-03-31 10:34 | PN ---
Progress Note (short form) - Note Progress Note: PULMONARY Denies shortness of breath or chest pain. Vital Signs Period Temp Pulse Resp BP Sys/Stock Pulse Ox Last 24 Hr 97.5 F-98.7 F 82-101 18-20 103-136/63-71 Gen: NAD at rest Heart: RRR Lung: decreased breath sounds at the bases Abd: soft, nontender Ext: no edema CBC, BMP 03/28/19 08:05 03/28/19 08:05 Active Medications Acetaminophen (Tylenol -) 650 mg PO Q6H PRN PRN Reason: PAIN LEVEL 1-5 Aripiprazole (Abilify) 5 mg PO DAILY [facility] Last Admin: 03/30/19 10:38 Dose: 5 mg Ascorbic Acid (Vitamin C -) 500 mg PO DAILY [facility] Last Admin: 03/30/19 10:38 Dose: 500 mg Benztropine Mesylate (Cogentin -) 0.5 mg PO DAILY [facility] Last Admin: 03/30/19 10:39 Dose: 0.5 mg Calcium Carbonate (Os-Davey 500mg -) 500 mg PO DAILY [facility] Last Admin: 03/30/19 10:38 Dose: 500 mg Cholecalciferol (Vitamin D3 -) 400 unit PO DAILY [facility] Last Admin: 03/30/19 10:38 Dose: 400 unit Dexamethasone (Decadron -) 4 mg PO DAILY [facility] Diltiazem HCl (Cardizem -) 30 mg PO TID [facility] Last Admin: 03/31/19 06:27 Dose: 30 mg Furosemide (Lasix -) 20 mg PO DAILY [facility] Last Admin: 03/30/19 10:44 Dose: Not Given Insulin Aspart (Novolog Vial Sliding Scale -) 1 vial SQ ACHS [facility]; Protocol Last Admin: 03/31/19 06:26 Dose: 2 units Lisinopril (Prinivil) 2.5 mg PO DAILY [facility] Last Admin: 03/30/19 10:44 Dose: Not Given Metoprolol Succinate (Toprol Xl -) 100 mg PO BID [facility] Last Admin: 03/30/19 21:14 Dose: 100 mg Nystatin (Mycostatin Ointment -) 1 applic TP BID [facility] Last Admin: 03/30/19 21:15 Dose: 1 applic Pantoprazole Sodium (Protonix -) 40 mg PO DAILY [facility] Last Admin: 03/30/19 10:38 Dose: 40 mg Rivaroxaban (Xarelto) 20 mg PO DAILY@1800 JONATHON Last Admin: 03/30/19 17:58 Dose: 20 mg A/P Metastatic Lung Ca to Brain r/o Cord Compression CAD Atrial Fibrillation DM Hyperlipidemia Schizophrenia - continue steroids - inhaled bronchodilators - RT per radiation oncology - rate controlled - continue anticoagulation Problem List - Problems (1) Lung cancer Code(s): C34.90 - MALIGNANT NEOPLASM OF UNSP PART OF UNSP BRONCHUS OR LUNG
[2019-03-31] MEDS: CALCIUM (OYSTER SHELL) 500 MG TABLET (FP) PO SCH (10:54)
[2019-03-31] MEDS: ARIPiprazole 5 MG TABLET (FP) PO SCH (10:54)
[2019-03-31] MEDS: FUROSEMIDE 20 MG TABLET (FP) PO SCH (10:55)
[2019-03-31] MEDS: PANTOPRAZOLE 40 MG TABLET (FP) PO SCH (10:55)
[2019-03-31] MEDS: ASCORBIC ACID 500 MG TABLET (FP) PO SCH (10:55)
[2019-03-31] MEDS: CHOLECALCIFEROL (VIT D3) 400 UNIT (10 MCG) TABLET PO SCH (10:56)
[2019-03-31] MEDS: LISINOPRIL 5 MG TABLET (FP) PO SCH (10:56)
[2019-03-31] MEDS: NYSTATIN 100000 UNIT/GM TOPICAL OINTMENT 15 GM TUBE TP SCH ×2 (10:58→21:24)
[2019-03-31] MEDS: BENZTROPINE MESYLATE 0.5 MG TABLET (FP) PO SCH (12:09)
[2019-03-31 12:16] VITALS: BMI 19.8
[2019-03-31 13:22] LABS: BLOOD UREA NITROGEN 28.6 mg/dL (7-18); CALCIUM 8.1 mg/dL (8.5-10.1); CREATININE 0.5 mg/dL (0.55-1.3); POTASSIUM 4.6 mmol/L (3.5-5.1)
--- NOTE | 2019-03-31 15:55 | PN ---
Progress Note (short form) - Note Progress Note: Radiation Oncology Tolerating RT to T-spine/RUL paraspinal mass without acute toxicity. Exam unchanged. Will continue planned tx, 3 fx remaining. Cont decadron and neurologic monitoring.
--- NOTE | 2019-03-31 16:23 | PN ---
Progress Note (short form) - Note Progress Note: Hospitalist Medicine No complaints. Three more fx left of RT to t-spine/RUL paraspinal mass Vitals 03/31/19 03/31/19 14:00 15:31 Temperature 97.8 F Pulse Rate 84 Respiratory 20 Rate Blood Pressure 102/70 Physical Exam General: resting in bed, in no acute distress HEENT: NCAT, PERRLA neck: supple cardio: S1, S2 RRR. no r/m/g Pulm: CTA b/l. no accessory m usage abdomen: nontender, nondistended MSK: 3/5 ROM in RLE. 4/5 LLE. sensation intact. 5/5 strength UE. 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 psych: appropriate today Laboratory Tests 03/31/19 12:05 Sodium 134 L Potassium 4.6 Chloride 99 Carbon Dioxide 27 Anion Gap 8 BUN 28.6 H Creatinine 0.5 L Est GFR (CKD-EPI)AfAm 130.88 Est GFR (CKD-EPI)NonAf 112.92 Random Glucose 160 H Calcium 8.1 L Last admission: Microbiology 03/12/19 20:15 Sputum - Aerosol Induced AFB Smear Concentration - Final 03/10/19 15:01 Nasopharyngeal Swab Respiratory Virus Panel - Final 03/07/19 21:00 Urine For Antigen Detection Legionella Antigen - Final 03/07/19 21:00 Urine For Antigen Detection Streptococcus pneumoniae Antigen (M - Final 03/12/19 20:15 Sputum - Aerosol Induced Mycobacterial Culture - Preliminary Imaging chest CT: 5 x 4.5 x 4.5 cm noncalcified irregular lesion in posterior medial aspect of R pulm apex with partial erosion of the contiguous R lateral border of the T3 vertebral body and R third rib. no gross intraspinal extension seen on the basis of noncontrast imaging. confluent R hilar lymphadenopathy noted. enlarged pretracheal and R paratracheal mediastinal LN are also seen with short axis diameter of 2.9cm. a 1.4x 1 cm polypod lesion is seen within the R mainstem bronchus probably on the basis of transbronchial extension from the contuguous lymphadenopathy. mild upper lobe opacity seen probably on basis of mild obstructive atelectasis. moderate R sided and small to moderate L sided pleural effusions are noted layering posteriorly. there is nonspecific enlargement of the L adrenal gland measuring 2.5 x 1.1cm. healed right rib fx posteriorly RUQ u/s: non-mobile gallstones without sonographic evidence of acute cholecystitis. hepatomegaly, mild fatty liver. R pleural effusion. Brain MRI: 0.7 cm enhancing lesion consistent with metastatic neoplastic dz in the L cerebellar hemisphere. no perilesional edema is seen. a subtle 0.3cm additional neoplastic lesion is noted in the R occipital lobe posteriorly with minimal perilesional edema. smal supratentorial and infratentorial chronic infarcts are noted. C-spine MRI/T-spine MRI: mild degenerative disc disease. no evidence of stenosis. in the thoracic spine there is a R paraspinal soft tissue mass 5.3x 5.3 cm with enhancement. mass is involving the R lateral aspect of T3 vertebral body with abnormal signal intensity identified. bone destruction with R transverse process of T3, right pedicle and probably extending to the Right lamina are present. mass is extending into right lateral aspect of spinal canal with mass effect on thecal sac and slightly displacing the upper thoracic cord towards left. it is extending to T2-T3 and right T3-T4 neural foramen. the right extradural soft tissue mass in the spinal canal is extending from lower T2 down to lower T4 level but os more prominent at T4. no cord compression is evident. ASSESSMENT/PLAN: 68 y/o M from [facility] with hx schizophrenia, MDD, afib, DM, HLD, CAD, with newly diagnosed lung CA who initially presented on last admission with RUL mass a/w mediastinal KAYLYN, erosion of T3, R 3rd rib and newly dx brain mets. Pt has returned for concern of cord compression. #RUL mass a/w mediastinal LN erosion of T3, R3rd rib, newly dx brain mets -was concern for cord compression -s/p CT for markings, started on RT to T3 spine* 3 fx left -on PO decadron 4mg qd, per onc -per psych, pt without capacity. -Psych: Dr. Singleton -Rad onc: Dr. Bose -Onc: Dr. Avalos -neurosx consult noted #DM -c/w ISS, BGM ACHS #schizophrenia, MDD -c/w abilify -c/w cogentin #afib -c/w xarelto -rate control w/ cardiazem, toprol #F/E/N does not need IVF continue to follow lytes diabetic/sodium controlled diet #PPX DVT: on xarelto GI: protonix #Dispo radiation therapy, per onc and rad-onc 3 more fx left c/w decadron, PPI <Margy Cabrera - Last Filed: 03/31/19 16:25> - Note Progress Note: Seen and examined; agree with above aside from as supplemented below by myself. Personally verified all historical information and stanton PE findings. Independently reviewed all labs and diagnostics. I discussed the case at length with the resident and consulting services. All questions answered. 10 sys ROS done and negative aside from hpi; tried to complete as best we could with underlying schizophrenia vs labs imagaing reviewed nad aao resting in bed nc at [facility] perrla HR wnl, +s1/2 CTAB, w/ sym exp NT ND +BS CN2-12 wnl, no fnd tangential thoughts No new diagnostics A/P: Patient with newly diagnosed poorly differentiated lung CA (oncology and rad onc following) who initially presented on last admission with RUL mass a/w mediastinal KAYLYN, erosion of T3, R 3rd rib and newly dx brain mets. Pt has returned for concern of cord compression and may be treated with radiation therapy. No progressive neuro symptoms noted again today. Lacks capacity. Continues with inpatient radiation; tolerated well. Seen as he was arriving back. Still with poor insight. Neurosurgical input noted. Continue to monitor his progression of symptoms with rad onc tx. Completing tx's no adverse effects no progressive neuro sx. 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 Will require ongoing 2PC for medical decisions due to lack of capacity-ethics consult noted. Intent of tx is palliative and to avoid catastrophic neurological damage. Stable exam. Complete radiation tx inpatient. Full Code <[email or web address] - Last Filed: 04/02/19 07:21>
[2019-03-31] MEDS: RIVAROXABAN 20 MG TABLET PO SCH (18:54)
--- NOTE | 2019-04-01 05:19 | PN ---
Progress Note (short form) - Note Progress Note: Patient seen and examined Tolerating RT to T spineparaspinal lesion AFVSS Cor: RSR, No murmurs, No gallops Lungs: Clear to P&A Abd: Soft, Normal bowel sounds, No organomegaly Ext:No significant edema Labs/Meds reviewed A/p 68 y/opatient with HTN, afib, CAD, DM, HLD schizophrenia, with newly diagnosed lung cancer Poorly differentiated carcinoma T3 vertebral body metastases, paravertebral mass, foraminal obstruction by the mass at T2-3, displacement of the cord Left cerebellar 0.7cm and rt. occipital metastasis tolerating R to Tspine/paraspinal lesion change dexamethasone to 4mg bid/protonix taper decadron after RT
[2019-04-01] MEDS: INSULIN SLIDING SCALE (NOVOLOG) 1 VIAL SQ SCH ×4 (07:08→22:07)
[2019-04-01] MEDS: dilTIAZem HCL 30 MG TABLET (FP) PO SCH ×3 (07:08→22:06)
[2019-04-01 08:29] LABS: BASO % 0.2 % (0-2.0); EOS % 0.2 % (0-4.5); HEMATOCRIT 36.5 % (35.4-49); HEMOGLOBIN 11.8 GM/dL (11.7-16.9); MCH 25.2 pg (25.7-33.7); MCHC 32.2 g/dl (32.0-35.9); MEAN CELL VOLUME 78.5 fl (80-96); MEAN PLT VOLUME 8.5 fl (7.5-11.1); MONO % 3.6 % (3.8-10.2); PLATELET COUNT 181 K/MM3 (134-434); RBC 4.65 M/mm3 (4.00-5.60); WHITE BLOOD COUNT 17.8 K/mm3 (4.0-10.0)
[2019-04-01 08:48] LABS: BLOOD UREA NITROGEN 26.8 mg/dL (7-18); CREATININE 0.5 mg/dL (0.55-1.3)
[2019-04-01 08:49] LABS: CALCIUM 8.4 mg/dL (8.5-10.1); POTASSIUM 4.3 mmol/L (3.5-5.1)
[2019-04-01] MEDS ORDERED: PT OWN MED DRAWER 7, Y5N ONE ×4 (09:22→22:45)
[2019-04-01] MEDS: ARIPiprazole 5 MG TABLET (FP) PO SCH (09:44)
[2019-04-01] MEDS: LISINOPRIL 5 MG TABLET (FP) PO SCH (09:44)
[2019-04-01] MEDS: BENZTROPINE MESYLATE 0.5 MG TABLET (FP) PO SCH (09:44)
[2019-04-01] MEDS: FUROSEMIDE 20 MG TABLET (FP) PO SCH (09:44)
[2019-04-01] MEDS: ASCORBIC ACID 500 MG TABLET (FP) PO SCH (09:44)
[2019-04-01] MEDS: DEXAMETHASONE 4 MG TABLET (FP) PO SCH ×2 (09:44→22:06)
[2019-04-01] MEDS: CHOLECALCIFEROL (VIT D3) 400 UNIT (10 MCG) TABLET PO SCH (09:44)
[2019-04-01] MEDS: PANTOPRAZOLE 40 MG TABLET (FP) PO SCH (09:44)
[2019-04-01] MEDS: CALCIUM (OYSTER SHELL) 500 MG TABLET (FP) PO SCH (09:44)
[2019-04-01] MEDS: NYSTATIN 100000 UNIT/GM TOPICAL OINTMENT 15 GM TUBE TP SCH ×2 (09:47→22:07)
--- NOTE | 2019-04-01 10:40 | PN ---
Progress Note (short form) - Note Progress Note: PULMONARY Denies shortness of breath or chest pain. Vital Signs Period Temp Pulse Resp BP Sys/Stock Pulse Ox Last 24 Hr 97.8 F-98.7 F 82-98 20-20 96-122/63-82 Gen: NAD at rest Heart: RRR Lung: decreased breath sounds at the bases Abd: soft, nontender Ext: no edema CBC, BMP 04/01/19 07:42 04/01/19 07:42 Active Medications Acetaminophen (Tylenol -) 650 mg PO Q6H PRN PRN Reason: PAIN LEVEL 1-5 Aripiprazole (Abilify) 5 mg PO DAILY [facility] Last Admin: 04/01/19 09:44 Dose: 5 mg Ascorbic Acid (Vitamin C -) 500 mg PO DAILY [facility] Last Admin: 04/01/19 09:44 Dose: 500 mg Benztropine Mesylate (Cogentin -) 0.5 mg PO DAILY [facility] Last Admin: 04/01/19 09:44 Dose: 0.5 mg Calcium Carbonate (Os-Davey 500mg -) 500 mg PO DAILY [facility] Last Admin: 04/01/19 09:44 Dose: 500 mg Cholecalciferol (Vitamin D3 -) 400 unit PO DAILY [facility] Last Admin: 04/01/19 09:44 Dose: 400 unit Dexamethasone (Decadron -) 4 mg PO BID [facility] Last Admin: 04/01/19 09:44 Dose: 4 mg Diltiazem HCl (Cardizem -) 30 mg PO TID [facility] Last Admin: 04/01/19 07:08 Dose: 30 mg Furosemide (Lasix -) 20 mg PO DAILY [facility] Last Admin: 04/01/19 09:44 Dose: 20 mg Insulin Aspart (Novolog Vial Sliding Scale -) [address] [facility]; Protocol Last Admin: 04/01/19 07:08 Dose: Not Given Lisinopril (Prinivil) 2.5 mg PO DAILY [facility] Last Admin: 04/01/19 09:44 Dose: 2.5 mg Metoprolol Succinate (Toprol Xl -) 100 mg PO BID [facility] Last Admin: 04/01/19 09:44 Dose: 100 mg Nystatin (Mycostatin Ointment -) 1 applic TP BID [facility] Last Admin: 04/01/19 09:47 Dose: 1 applic Pantoprazole Sodium (Protonix -) 40 mg PO DAILY [facility] Last Admin: 04/01/19 09:44 Dose: 40 mg Rivaroxaban (Xarelto) 20 mg PO DAILY@1800 [facility] Last Admin: 03/31/19 18:54 Dose: 20 mg A/P Metastatic Lung Ca to Brain r/o Cord Compression CAD Atrial Fibrillation DM Hyperlipidemia Schizophrenia - continue steroids - inhaled bronchodilators - RT per radiation oncology - rate controlled - continue anticoagulation Problem List - Problems (1) Lung cancer Code(s): C34.90 - MALIGNANT NEOPLASM OF UNSP PART OF UNSP BRONCHUS OR LUNG
[2019-04-01 11:10] LABS: ANISOCYTOSIS 3+; PLATELET ESTIMATE NORMAL
--- NOTE | 2019-04-01 11:17 | PN ---
Progress Note (short form) - Note Progress Note: Hospitalist Medicine For RT today; 3 sessions left, including today. Per onc, to taper steroids after RT complete. Today pt engaging in nonsensical conversation Vitals 04/01/19 05:00 Temperature 98.4 F Pulse Rate 82 Respiratory 20 Rate Blood Pressure 117/82 Physical Exam General: resting in bed, in no acute distress HEENT: NCAT, PERRLA neck: supple cardio: S1, S2 RRR. no r/m/g Pulm: CTA b/l. no accessory m usage abdomen: nontender, nondistended MSK: 3/5 ROM in RLE. 4/5 LLE. sensation intact. 5/5 strength UE. 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 psych: +tangential thinking Laboratory Tests 04/01/19 04/01/19 07:42 07:42 WBC 17.8 H Hgb 11.8 Hct 36.5 Plt Count 181 D Sodium 134 L Potassium 4.3 Chloride 100 Carbon Dioxide 26 BUN 26.8 H Creatinine 0.5 L Random Glucose 134 H Last admission: Microbiology 03/12/19 20:15 Sputum - Aerosol Induced AFB Smear Concentration - Final 03/10/19 15:01 Nasopharyngeal Swab Respiratory Virus Panel - Final 03/07/19 21:00 Urine For Antigen Detection Legionella Antigen - Final 03/07/19 21:00 Urine For Antigen Detection Streptococcus pneumoniae Antigen (M - Final 03/12/19 20:15 Sputum - Aerosol Induced Mycobacterial Culture - Preliminary Imaging chest CT: 5 x 4.5 x 4.5 cm noncalcified irregular lesion in posterior medial aspect of R pulm apex with partial erosion of the contiguous R lateral border of the T3 vertebral body and R third rib. no gross intraspinal extension seen on the basis of noncontrast imaging. confluent R hilar lymphadenopathy noted. enlarged pretracheal and R paratracheal mediastinal LN are also seen with short axis diameter of 2.9cm. a 1.4x 1 cm polypod lesion is seen within the R mainstem bronchus probably on the basis of transbronchial extension from the contuguous lymphadenopathy. mild upper lobe opacity seen probably on basis of mild obstructive atelectasis. moderate R sided and small to moderate L sided pleural effusions are noted layering posteriorly. there is nonspecific enlargement of the L adrenal gland measuring 2.5 x 1.1cm. healed right rib fx posteriorly RUQ u/s: non-mobile gallstones without sonographic evidence of acute cholecystitis. hepatomegaly, mild fatty liver. R pleural effusion. Brain MRI: 0.7 cm enhancing lesion consistent with metastatic neoplastic dz in the L cerebellar hemisphere. no perilesional edema is seen. a subtle 0.3cm additional neoplastic lesion is noted in the R occipital lobe posteriorly with minimal perilesional edema. smal supratentorial and infratentorial chronic infarcts are noted. C-spine MRI/T-spine MRI: mild degenerative disc disease. no evidence of stenosis. in the thoracic spine there is a R paraspinal soft tissue mass 5.3x 5.3 cm with enhancement. mass is involving the R lateral aspect of T3 vertebral body with abnormal signal intensity identified. bone destruction with R transverse process of T3, right pedicle and probably extending to the Right lamina are present. mass is extending into right lateral aspect of spinal canal with mass effect on thecal sac and slightly displacing the upper thoracic cord towards left. it is extending to T2-T3 and right T3-T4 neural foramen. the right extradural soft tissue mass in the spinal canal is extending from lower T2 down to lower T4 level but os more prominent at T4. no cord compression is evident. ASSESSMENT/PLAN: 68 y/o M from [facility] with hx schizophrenia, MDD, afib, DM, HLD, CAD, with newly diagnosed lung CA who initially presented on last admission with RUL mass a/w mediastinal KAYLYN, erosion of T3, R 3rd rib and newly dx brain mets. Pt has returned for concern of cord compression. #RUL mass a/w mediastinal LN erosion of T3, R3rd rib, newly dx brain mets -was concern for cord compression -s/p CT for markings, started on RT to T3 spine* 3 fx left (including today) -on decadron 4mg PO BID, to taper after RT per onc -per psych, pt without capacity. -Psych: Dr. Singleton -Rad onc: Dr. Bose -Onc: Dr. Avalos -neurosx consult noted #DM -c/w ISS, BGM ACHS #schizophrenia, MDD -c/w abilify -c/w cogentin #afib -c/w xarelto -rate control w/ cardiazem, toprol #F/E/N does not need IVF continue to follow lytes diabetic/sodium controlled diet #PPX DVT: on xarelto GI: protonix #Dispo radiation therapy, per onc and rad-onc 3 more fx left including session today will taper decadron after RT complete <DeborahMargy menchaca - Last Filed: 04/01/19 11:19> - Note Progress Note: Seen and examined; agree with above aside from as supplemented below by myself. Personally verified all historical information and stanton PE findings. Independently reviewed all labs and diagnostics. I discussed the case at length with the resident and consulting services. All questions answered. 10 sys ROS done and negative aside from hpi; tried to complete as best we could with underlying schizophrenia vs labs imagaing reviewed nad aao resting in bed nc at [facility] perrla HR wnl, +s1/2 CTAB, w/ sym exp NT ND +BS CN2-12 wnl, no fnd tangential thoughts No new diagnostics A/P: Patient with newly diagnosed poorly differentiated lung CA (oncology and rad onc following) who initially presented on last admission with RUL mass a/w mediastinal KAYLYN, erosion of T3, R 3rd rib and newly dx brain mets. Pt has returned for concern of cord compression and may be treated with radiation therapy. No progressive neuro symptoms noted again today. Lacks capacity. Continues with inpatient radiation; tolerated well. Seen as he was arriving back. Still with poor insight. Neurosurgical input noted. Continue to monitor his progression of symptoms with rad onc tx. Completing tx's no adverse effects no progressive neuro sx. 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 Will require ongoing 2PC for medical decisions due to lack of capacity-ethics consult noted. Intent of tx is palliative and to avoid catastrophic neurological damage. Stable exam. Complete radiation tx inpatient. Full Code <PacoMiles - Last Filed: 04/02/19 09:05>
[2019-04-01] MEDS: RIVAROXABAN 20 MG TABLET PO SCH (16:59)
[2019-04-02] MEDS ORDERED: PT OWN MED DRAWER 7, Y5N ONE (05:47)
[2019-04-02] MEDS: dilTIAZem HCL 30 MG TABLET (FP) PO SCH ×3 (06:03→21:48)
[2019-04-02] MEDS: INSULIN SLIDING SCALE (NOVOLOG) 1 VIAL SQ SCH ×4 (06:06→21:44)
[2019-04-02 08:40] LABS: INR 1.14 (0.83-1.09); PROTHROMBIN TIME (PATIENT) 13.5 SEC (9.7-13.0)
[2019-04-02 08:42] LABS: ACTIVATED PTT 30.1 SECONDS (25.2-36.5)
[2019-04-02] MEDS: ARIPiprazole 5 MG TABLET (FP) PO SCH (11:30)
[2019-04-02] MEDS: PANTOPRAZOLE 40 MG TABLET (FP) PO SCH (11:30)
[2019-04-02] MEDS: FUROSEMIDE 20 MG TABLET (FP) PO SCH (11:30)
[2019-04-02] MEDS: ASCORBIC ACID 500 MG TABLET (FP) PO SCH (11:30)
[2019-04-02] MEDS: LISINOPRIL 5 MG TABLET (FP) PO SCH (11:31)
[2019-04-02] MEDS: CHOLECALCIFEROL (VIT D3) 400 UNIT (10 MCG) TABLET PO SCH (11:31)
[2019-04-02] MEDS: DEXAMETHASONE 4 MG TABLET (FP) PO SCH ×2 (11:31→21:45)
[2019-04-02] MEDS: CALCIUM (OYSTER SHELL) 500 MG TABLET (FP) PO SCH (11:31)
[2019-04-02] MEDS: NYSTATIN 100000 UNIT/GM TOPICAL OINTMENT 15 GM TUBE TP SCH ×2 (11:32→21:49)
[2019-04-02] MEDS ORDERED: INSULIN (NOVOLOG) ASPART 100 UNITS/ML 10ML VIAL ONE (11:59)
[2019-04-02] MEDS: BENZTROPINE MESYLATE 0.5 MG TABLET (FP) PO SCH (12:29)
--- NOTE | 2019-04-02 14:26 | PN ---
Progress Note (short form) - Note Progress Note: PULMONARY Going to RT. Denies shortness of breath or chest pain. Vital Signs Period Temp Pulse Resp BP Sys/Stock Pulse Ox Last 24 Hr 97.8 F-99.3 F 89-105 20-20 91-116/60-77 96 Gen: NAD at rest Heart: RRR Lung: decreased breath sounds at the bases Abd: soft, nontender Ext: no edema CBC, BMP 04/01/19 07:42 04/01/19 07:42 Active Medications Acetaminophen (Tylenol -) 650 mg PO Q6H PRN PRN Reason: PAIN LEVEL 1-5 Aripiprazole (Abilify) 5 mg PO DAILY [facility] Last Admin: 04/02/19 11:30 Dose: 5 mg Ascorbic Acid (Vitamin C -) 500 mg PO DAILY [facility] Last Admin: 04/02/19 11:30 Dose: 500 mg Benztropine Mesylate (Cogentin -) 0.5 mg PO DAILY [facility] Last Admin: 04/02/19 12:29 Dose: 0.5 mg Calcium Carbonate (Os-Davey 500mg -) 500 mg PO DAILY [facility] Last Admin: 04/02/19 11:31 Dose: 500 mg Cholecalciferol (Vitamin D3 -) 400 unit PO DAILY [facility] Last Admin: 04/02/19 11:31 Dose: 400 unit Dexamethasone (Decadron -) 4 mg PO BID [facility] Last Admin: 04/02/19 11:31 Dose: 4 mg Diltiazem HCl (Cardizem -) 30 mg PO TID [facility] Last Admin: 04/02/19 06:03 Dose: 30 mg Furosemide (Lasix -) 20 mg PO DAILY [facility] Last Admin: 04/02/19 11:30 Dose: 20 mg Insulin Aspart (Novolog Vial Sliding Scale -) 1 vial SQ [facility]; Protocol Last Admin: 04/02/19 12:15 Dose: 4 units Lisinopril (Prinivil) 2.5 mg PO DAILY [facility] Last Admin: 04/02/19 11:31 Dose: 2.5 mg Metoprolol Succinate (Toprol Xl -) 100 mg PO BID [facility] Last Admin: 04/02/19 11:30 Dose: 100 mg Nystatin (Mycostatin Ointment -) 1 applic TP BID [facility] Last Admin: 04/02/19 11:32 Dose: 1 applic Pantoprazole Sodium (Protonix -) 40 mg PO DAILY [facility] Last Admin: 04/02/19 11:30 Dose: 40 mg Rivaroxaban (Xarelto) 20 mg PO DAILY@1800 [facility] Last Admin: 04/01/19 16:59 Dose: 20 mg A/P Metastatic Lung Ca to Brain r/o Cord Compression CAD Atrial Fibrillation DM Hyperlipidemia Schizophrenia - continue steroids - inhaled bronchodilators - RT per radiation oncology - rate controlled - continue anticoagulation Problem List - Problems (1) Lung cancer Code(s): C34.90 - MALIGNANT NEOPLASM OF UNSP PART OF UNSP BRONCHUS OR LUNG
--- NOTE | 2019-04-02 17:15 | PN ---
Progress Note (short form) - Note Progress Note: Hospitalist Medicine Resting in bed. Without complaint Vitals 04/02/19 16:59 Temperature [ 98.2 F Prior to transport] Pulse Rate [ 88 Prior to transport] Respiratory 18 Rate [Prior to transport] Blood Pressure 120/60 [Prior to transport] Physical Exam General: resting in bed, in NAD HEENT: NCAT, PERRLA neck: supple cardio: S1, S2 RRR. no r/m/g Pulm: CTA b/l. no accessory m usage abdomen: nontender, nondistended MSK: 3/5 ROM in RLE. 4/5 LLE. sensation intact. 5/5 strength UE. 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 psych: +tangential thinking Laboratory Tests 04/02/19 04/02/19 04/02/19 06:01 07:20 11:47 PT with INR 13.50 H INR 1.14 H POC Glucometer 188 210 Last admission: Microbiology 03/12/19 20:15 Sputum - Aerosol Induced AFB Smear Concentration - Final 03/10/19 15:01 Nasopharyngeal Swab Respiratory Virus Panel - Final 03/07/19 21:00 Urine For Antigen Detection Legionella Antigen - Final 03/07/19 21:00 Urine For Antigen Detection Streptococcus pneumoniae Antigen (M - Final 03/12/19 20:15 Sputum - Aerosol Induced Mycobacterial Culture - Preliminary Imaging chest CT: 5 x 4.5 x 4.5 cm noncalcified irregular lesion in posterior medial aspect of R pulm apex with partial erosion of the contiguous R lateral border of the T3 vertebral body and R third rib. no gross intraspinal extension seen on the basis of noncontrast imaging. confluent R hilar lymphadenopathy noted. enlarged pretracheal and R paratracheal mediastinal LN are also seen with short axis diameter of 2.9cm. a 1.4x 1 cm polypod lesion is seen within the R mainstem bronchus probably on the basis of transbronchial extension from the contuguous lymphadenopathy. mild upper lobe opacity seen probably on basis of mild obstructive atelectasis. moderate R sided and small to moderate L sided pleural effusions are noted layering posteriorly. there is nonspecific enlargement of the L adrenal gland measuring 2.5 x 1.1cm. healed right rib fx posteriorly RUQ u/s: non-mobile gallstones without sonographic evidence of acute cholecystitis. hepatomegaly, mild fatty liver. R pleural effusion. Brain MRI: 0.7 cm enhancing lesion consistent with metastatic neoplastic dz in the L cerebellar hemisphere. no perilesional edema is seen. a subtle 0.3cm additional neoplastic lesion is noted in the R occipital lobe posteriorly with minimal perilesional edema. smal supratentorial and infratentorial chronic infarcts are noted. C-spine MRI/T-spine MRI: mild degenerative disc disease. no evidence of stenosis. in the thoracic spine there is a R paraspinal soft tissue mass 5.3x 5.3 cm with enhancement. mass is involving the R lateral aspect of T3 vertebral body with abnormal signal intensity identified. bone destruction with R transverse process of T3, right pedicle and probably extending to the Right lamina are present. mass is extending into right lateral aspect of spinal canal with mass effect on thecal sac and slightly displacing the upper thoracic cord towards left. it is extending to T2-T3 and right T3-T4 neural foramen. the right extradural soft tissue mass in the spinal canal is extending from lower T2 down to lower T4 level but os more prominent at T4. no cord compression is evident. ASSESSMENT/PLAN: 68 y/o M from [facility] with hx schizophrenia, MDD, afib, DM, HLD, CAD, with newly diagnosed lung CA who initially presented on last admission with RUL mass a/w mediastinal KAYLYN, erosion of T3, R 3rd rib and newly dx brain mets. Pt has returned for concern of cord compression. #RUL mass a/w mediastinal LN erosion of T3, R3rd rib, newly dx brain mets -was concern for cord compression -s/p CT for markings, started on RT to T3 spine* 2 fx left -on decadron 4mg PO BID, to taper after RT per onc -per psych, pt without capacity. -Psych: Dr. Singleton -Rad onc: Dr. Bose -Onc: Dr. Avalos -neurosx consult noted #DM -c/w ISS, BGM ACHS #schizophrenia, MDD -c/w abilify -c/w cogentin #afib -c/w xarelto -rate control w/ cardiazem, toprol #F/E/N does not need IVF continue to follow lytes diabetic/sodium controlled diet #PPX DVT: on xarelto GI: protonix #Dispo radiation therapy, per onc and rad-onc 2 more fx left will taper decadron after RT complete
[2019-04-02] MEDS: RIVAROXABAN 20 MG TABLET PO SCH (18:10)
[2019-04-03] MEDS: dilTIAZem HCL 30 MG TABLET (FP) PO SCH ×3 (07:06→22:03)
[2019-04-03] MEDS: INSULIN SLIDING SCALE (NOVOLOG) 1 VIAL SQ SCH ×4 (07:06→22:08)
--- NOTE | 2019-04-03 10:19 | PN ---
Progress Note (short form) - Note Progress Note: PULMONARY Denies shortness of breath or chest pain. No pain. No fevers or chills. Vital Signs Period Temp Pulse Resp BP Sys/Stock Pulse Ox Last 24 Hr 98.2 F-99.2 F 88-105 18-20 92-120/55-70 Gen: NAD at rest Heart: RRR Lung: decreased breath sounds at the bases Abd: soft, nontender Ext: no edema CBC, BMP 04/01/19 07:42 04/01/19 07:42 Active Medications Acetaminophen (Tylenol -) 650 mg PO Q6H PRN PRN Reason: PAIN LEVEL 1-5 Aripiprazole (Abilify) 5 mg PO DAILY [facility] Last Admin: 04/02/19 11:30 Dose: 5 mg Ascorbic Acid (Vitamin C -) 500 mg PO DAILY [facility] Last Admin: 04/02/19 11:30 Dose: 500 mg Benztropine Mesylate (Cogentin -) 0.5 mg PO DAILY [facility] Last Admin: 04/02/19 12:29 Dose: 0.5 mg Calcium Carbonate (Os-Davey 500mg -) 500 mg PO DAILY [facility] Last Admin: 04/02/19 11:31 Dose: 500 mg Cholecalciferol (Vitamin D3 -) 400 unit PO DAILY [facility] Last Admin: 04/02/19 11:31 Dose: 400 unit Dexamethasone (Decadron -) 4 mg PO BID [facility] Last Admin: 04/02/19 21:45 Dose: 4 mg Diltiazem HCl (Cardizem -) 30 mg PO TID [facility] Last Admin: 04/03/19 07:06 Dose: 30 mg Furosemide (Lasix -) 20 mg PO DAILY [facility] Last Admin: 04/02/19 11:30 Dose: 20 mg Insulin Aspart (Novolog Vial Sliding Scale -) 1 vial SQ ACHS [facility]; Protocol Last Admin: 04/03/19 07:06 Dose: 4 units Lisinopril (Prinivil) 2.5 mg PO DAILY [facility] Last Admin: 04/02/19 11:31 Dose: 2.5 mg Metoprolol Succinate (Toprol Xl -) 100 mg PO BID [facility] Last Admin: 04/02/19 21:45 Dose: 100 mg Nystatin (Mycostatin Ointment -) 1 applic TP BID [facility] Last Admin: 04/02/19 21:49 Dose: 1 applic Pantoprazole Sodium (Protonix -) 40 mg PO DAILY [facility] Last Admin: 04/02/19 11:30 Dose: 40 mg Rivaroxaban (Xarelto) 20 mg PO DAILY@1800 [facility] Last Admin: 04/02/19 18:10 Dose: 20 mg A/P 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
[2019-04-03] MEDS: LISINOPRIL 5 MG TABLET (FP) PO SCH (10:52)
[2019-04-03] MEDS: FUROSEMIDE 20 MG TABLET (FP) PO SCH (10:52)
[2019-04-03] MEDS: PANTOPRAZOLE 40 MG TABLET (FP) PO SCH (10:54)
[2019-04-03] MEDS: CHOLECALCIFEROL (VIT D3) 400 UNIT (10 MCG) TABLET PO SCH (10:54)
[2019-04-03] MEDS: ARIPiprazole 5 MG TABLET (FP) PO SCH (10:54)
[2019-04-03] MEDS: CALCIUM (OYSTER SHELL) 500 MG TABLET (FP) PO SCH (10:54)
[2019-04-03] MEDS: DEXAMETHASONE 4 MG TABLET (FP) PO SCH ×2 (10:54→22:10)
[2019-04-03] MEDS: ASCORBIC ACID 500 MG TABLET (FP) PO SCH (10:54)
[2019-04-03] MEDS ORDERED: PT OWN MED DRAWER 7, Y5N ONE ×3 (10:57→21:12)
[2019-04-03] MEDS: BENZTROPINE MESYLATE 0.5 MG TABLET (FP) PO SCH (10:58)
[2019-04-03] MEDS: NYSTATIN 100000 UNIT/GM TOPICAL OINTMENT 15 GM TUBE TP SCH ×2 (10:59→22:11)
--- NOTE | 2019-04-03 12:12 | PN ---
Progress Note (short form) - Note Progress Note: Hospitalist Medicine Lying in bed, comfortable. Scheduled for next RT session 2pm Vitals 04/03/19 06:51 Temperature 98.5 F Pulse Rate 95 H Respiratory 20 Rate Blood Pressure 92/62 Physical Exam General: resting in bed, in NAD HEENT: NCAT, PERRLA neck: supple cardio: S1, S2 RRR. no r/m/g Pulm: CTA b/l. no accessory m usage abdomen: nontender, nondistended MSK: 3/5 ROM in RLE. 4/5 LLE. sensation intact. 5/5 strength UE. 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 psych: +tangential thinking Laboratory Tests 04/02/19 04/02/19 04/03/19 18:12 21:43 07:02 POC Glucometer 218 210 215 Last admission: Microbiology 03/12/19 20:15 Sputum - Aerosol Induced AFB Smear Concentration - Final 03/10/19 15:01 Nasopharyngeal Swab Respiratory Virus Panel - Final 03/07/19 21:00 Urine For Antigen Detection Legionella Antigen - Final 03/07/19 21:00 Urine For Antigen Detection Streptococcus pneumoniae Antigen (M - Final 03/12/19 20:15 Sputum - Aerosol Induced Mycobacterial Culture - Preliminary Imaging chest CT: 5 x 4.5 x 4.5 cm noncalcified irregular lesion in posterior medial aspect of R pulm apex with partial erosion of the contiguous R lateral border of the T3 vertebral body and R third rib. no gross intraspinal extension seen on the basis of noncontrast imaging. confluent R hilar lymphadenopathy noted. enlarged pretracheal and R paratracheal mediastinal LN are also seen with short axis diameter of 2.9cm. a 1.4x 1 cm polypod lesion is seen within the R mainstem bronchus probably on the basis of transbronchial extension from the contuguous lymphadenopathy. mild upper lobe opacity seen probably on basis of mild obstructive atelectasis. moderate R sided and small to moderate L sided pleural effusions are noted layering posteriorly. there is nonspecific enlargement of the L adrenal gland measuring 2.5 x 1.1cm. healed right rib fx posteriorly RUQ u/s: non-mobile gallstones without sonographic evidence of acute cholecystitis. hepatomegaly, mild fatty liver. R pleural effusion. Brain MRI: 0.7 cm enhancing lesion consistent with metastatic neoplastic dz in the L cerebellar hemisphere. no perilesional edema is seen. a subtle 0.3cm additional neoplastic lesion is noted in the R occipital lobe posteriorly with minimal perilesional edema. smal supratentorial and infratentorial chronic infarcts are noted. C-spine MRI/T-spine MRI: mild degenerative disc disease. no evidence of stenosis. in the thoracic spine there is a R paraspinal soft tissue mass 5.3x 5.3 cm with enhancement. mass is involving the R lateral aspect of T3 vertebral body with abnormal signal intensity identified. bone destruction with R transverse process of T3, right pedicle and probably extending to the Right lamina are present. mass is extending into right lateral aspect of spinal canal with mass effect on thecal sac and slightly displacing the upper thoracic cord towards left. it is extending to T2-T3 and right T3-T4 neural foramen. the right extradural soft tissue mass in the spinal canal is extending from lower T2 down to lower T4 level but os more prominent at T4. no cord compression is evident. ASSESSMENT/PLAN: 68 y/o M from [facility] with hx schizophrenia, MDD, afib, DM, HLD, CAD, with newly diagnosed lung CA who initially presented on last admission with RUL mass a/w mediastinal KAYLYN, erosion of T3, R 3rd rib and newly dx brain mets. Pt has returned for concern of cord compression. #RUL mass a/w mediastinal LN erosion of T3, R3rd rib, newly dx brain mets -was concern for cord compression -s/p CT for markings, started on RT to T3 spine* 2 fx left (including today) -on decadron 4mg PO BID, to taper after RT per onc -per psych, pt without capacity. -Psych: Dr. Singleton -Rad onc: Dr. Bose -Onc: Dr. Avalos -neurosx consult noted #DM -c/w ISS, BGM ACHS #schizophrenia, MDD -c/w abilify -c/w cogentin #afib -c/w xarelto -rate control w/ cardiazem, toprol #F/E/N does not need IVF continue to follow lytes diabetic/sodium controlled diet #PPX DVT: on xarelto GI: protonix #Dispo radiation therapy, per onc and rad-onc 2 more fx left (including today) will taper decadron after RT complete
--- NOTE | 2019-04-03 15:42 | PN ---
Progress Note (short form) - Note Progress Note: Radiation Oncology Completed RT 20Gy to T-spine/RUL paraspinal mass today. Neurologically stable. No skin changes yet. Cont with decadron taperand and neurologic monitoring. Palliative care.
[2019-04-03] MEDS: RIVAROXABAN 20 MG TABLET PO SCH (17:08)
[2019-04-03] MEDS ORDERED: INSULIN (NOVOLOG) ASPART 100 UNITS/ML 10ML VIAL ONE (21:11)
[2019-04-04] MEDS: dilTIAZem HCL 30 MG TABLET (FP) PO SCH ×2 (05:32→16:28)
[2019-04-04] MEDS: INSULIN SLIDING SCALE (NOVOLOG) 1 VIAL SQ SCH ×3 (06:01→17:37)
[2019-04-04] MEDS ORDERED: INSULIN (NOVOLOG) ASPART 100 UNITS/ML 10ML VIAL ONE (06:44)
[2019-04-04 07:50] VITALS: PULSE 99
[2019-04-04 08:15] LABS: BASO % 0.2 % (0-2.0); HEMATOCRIT 37.5 % (35.4-49); LYMPH % 1.3 % (8-40); MCH 25.2 pg (25.7-33.7); MEAN CELL VOLUME 78.8 fl (80-96); MEAN PLT VOLUME 8.7 fl (7.5-11.1); MONO % 3.1 % (3.8-10.2); NEUT % 95.4 % (42.8-82.8); PLATELET COUNT 178 K/MM3 (134-434); RBC 4.76 M/mm3 (4.00-5.60); RDW 26.4 % (11.9-15.9); WHITE BLOOD COUNT 23.6 K/mm3 (4.0-10.0)
[2019-04-04 08:36] LABS: ALBUMIN 2.6 g/dl (3.4-5.0); BILIRUBIN,TOTAL 0.5 mg/dL (0.2-1); BLOOD UREA NITROGEN 31.4 mg/dL (7-18); CALCIUM 8.3 mg/dL (8.5-10.1); CREATININE 0.5 mg/dL (0.55-1.3); POTASSIUM 4.4 mmol/L (3.5-5.1)
--- NOTE | 2019-04-04 10:09 | PN ---
Progress Note (short form) - Note Progress Note: Patient seen and examined Denies chest pain, SOB , back pains Completed course of RT Difficult problem- Metastatic lung ca , poor performance and ?? compliance issue for ongoing therapy . Patient does have PDL-1 expression on tumor. He therefore would be a potential candidate for immunotherapy Last Vital Signs Temp Pulse Resp BP Pulse Ox 98.1 F 99 H 18 116/82 98 04/04/19 05:00 04/04/19 05:00 04/04/19 05:00 04/04/19 05:00 04/03/19 20:46 HEENT: GENNY, EOM Intact Oropharynx: No thrush, No mucositis Cor: RSR, No murmurs, No gallops Lungs: poor inspiratory effort Abd: Soft, Normal bowel sounds, No organomegaly Ext:No significant edema Skin: No rashes, Integument intact CBC, BMP 04/04/19 07:00 04/04/19 07:00 Current Medications Generic Name Dose Route Start Last Admin Trade Name Freq PRN Reason Stop Dose Admin Acetaminophen 650 mg 03/21/19 15:04 Tylenol - PO Q6H PRN PAIN LEVEL 1-5 Aripiprazole 5 mg 03/22/19 10:00 04/03/19 10:54 Abilify PO 5 mg DAILY [facility]ATHON Administration Ascorbic Acid 500 mg 03/22/19 10:00 04/03/19 10:54 Vitamin C - PO 500 mg DAILY [facility]ONATHON Administration Benztropine Mesylate 0.5 mg 03/22/19 10:00 04/03/19 10:58 Cogentin - PO 0.5 mg DAILY [facility] Administration Calcium Carbonate 500 mg 03/22/19 10:00 04/03/19 10:54 Os-Davey 500mg - PO 500 mg DAILY [facility] Administration Cholecalciferol 400 unit 03/22/19 10:00 04/03/19 10:54 Vitamin D3 - PO 400 unit DAILY [facility] Administration Dexamethasone 4 mg 04/01/19 10:00 04/03/19 22:10 Decadron - PO 4 mg BID [facility] Administration Diltiazem HCl 30 mg 03/21/19 22:00 04/04/19 05:32 Cardizem - PO 30 mg TID [facility] Administration Furosemide 20 mg 03/22/19 10:00 04/03/19 10:52 Lasix - PO Not Given DAILY [facility] Insulin Aspart 1 vial 03/21/19 16:30 04/04/19 06:01 Novolog Vial Sliding Scale - SQ 2 units ACHS [facility]ONATHON Administration Protocol Lisinopril 2.5 mg 03/22/19 10:00 04/03/19 10:52 Prinivil PO Not Given DAILY [facility] Metoprolol Succinate 100 mg 03/21/19 22:00 04/03/19 22:03 Toprol Xl - PO Not Given BID [facility]ON[facility] Nystatin 1 applic 03/21/19 22:00 04/03/19 22:11 Mycostatin Ointment - TP 1 applic BID [facility] Administration Pantoprazole Sodium 40 mg 03/22/19 12:45 04/03/19 10:54 Protonix - PO 40 mg DAILY [facility] Administration Rivaroxaban 20 mg 03/21/19 18:00 04/03/19 17:08 Xarelto PO 20 mg DAILY@1800 [facility] Administration Impression: Metastatic lung ca T3 spine mets S/P RT A/C Schizophrenia Suggest : Will give zometa for bone mets Would have patient follow up as out patient upon discharge. I did ask him if there was an interest in immunotherapy and did discuss the fact that he had a lung cancer which had spread and that the RT only helps in one area and that the intravenous immunotherapy might help the rest of his cancer. He said he might consider so I can re visit question as an out patient if he is in fact compliantwith follow up.
[2019-04-04] MEDS ORDERED: ZOLEDRONIC ACID 4 MG in SODIUM CHLORIDE 100 ML IVPB ONE (10:28)
[2019-04-04] MEDS ORDERED: PT OWN MED DRAWER 7, Y5N ONE ×3 (10:51→12:12)
[2019-04-04] MEDS: BENZTROPINE MESYLATE 0.5 MG TABLET (FP) PO SCH (10:59)
[2019-04-04] MEDS: PANTOPRAZOLE 40 MG TABLET (FP) PO SCH (10:59)
[2019-04-04] MEDS: ASCORBIC ACID 500 MG TABLET (FP) PO SCH (10:59)
[2019-04-04] MEDS: CALCIUM (OYSTER SHELL) 500 MG TABLET (FP) PO SCH (10:59)
[2019-04-04] MEDS: CHOLECALCIFEROL (VIT D3) 400 UNIT (10 MCG) TABLET PO SCH (10:59)
[2019-04-04] MEDS: ARIPiprazole 5 MG TABLET (FP) PO SCH (10:59)
[2019-04-04] MEDS: LISINOPRIL 5 MG TABLET (FP) PO SCH (11:00)
[2019-04-04] MEDS: NYSTATIN 100000 UNIT/GM TOPICAL OINTMENT 15 GM TUBE TP SCH (11:00)
[2019-04-04] MEDS: FUROSEMIDE 20 MG TABLET (FP) PO SCH (11:00)
[2019-04-04] MEDS: DEXAMETHASONE 4 MG TABLET (FP) PO SCH (11:04)
[2019-04-04] MEDS ORDERED: DEXAMETHASONE 4 MG TABLET (FP) PO ONE (11:06)
[2019-04-04 12:38] LABS: ANISOCYTOSIS 2+; PLATELET ESTIMATE NORMAL
--- NOTE | 2019-04-04 12:59 | DS ---
Physical Exam: SUBJECTIVE: Patient seen and examined. Without complaint; resting comfortably. OBJECTIVE: Vital Signs Period Temp Pulse Resp BP Sys/Stock Pulse Ox Last 24 Hr 97.8 F-98.7 F 78-101 18-20 99-116/52-82 98 Physical Exam General: resting in bed, in NAD HEENT: NCAT, PERRLA neck: supple cardio: S1, S2 RRR. no r/m/g Pulm: CTA b/l. no accessory m usage abdomen: nontender, nondistended MSK: 3/5 ROM in RLE. 4/5 LLE. sensation intact. 5/5 strength UE. 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 psych: +tangential thinking LABS Laboratory Results - last 24 hr 04/03/19 04/03/19 04/04/19 17:07 22:07 05:30 WBC RBC Hgb Hct MCV MCH MCHC RDW Plt Count MPV Absolute Neuts (auto) Neutrophils % Neutrophils % (Manual) Band Neutrophils % Lymphocytes % Lymphocytes % (Manual) Monocytes % Monocytes % (Manual) Eosinophils % Eosinophils % (Manual) Basophils % Basophils % (Manual) Myelocytes % (Man) Promyelocytes % (Man) Blast Cells % (Manual) Nucleated RBC % Metamyelocytes Platelet Estimate Anisocytosis Sodium Potassium Chloride Carbon Dioxide Anion Gap BUN Creatinine Est GFR (CKD-EPI)AfAm Est GFR (CKD-EPI)NonAf POC Glucometer 168 216 161 Random Glucose Calcium Total Bilirubin AST ALT Alkaline Phosphatase Total Protein Albumin 04/04/19 04/04/19 04/04/19 07:00 07:00 12:27 WBC 23.6 H RBC 4.76 Hgb 12.0 Hct 37.5 MCV 78.8 L MCH 25.2 L MCHC 32.0 RDW 26.4 H Plt Count 178 MPV 8.7 Absolute Neuts (auto) 22.5 H Neutrophils % 95.4 H Neutrophils % (Manual) 65.5 D Band Neutrophils % 0.7 Lymphocytes % 1.3 L D Lymphocytes % (Manual) 21.4 D Monocytes % 3.1 L Monocytes % (Manual) 6 D Eosinophils % 0.0 D Eosinophils % (Manual) 5.5 H D Basophils % 0.2 Basophils % (Manual) 0.0 Myelocytes % (Man) 0 Promyelocytes % (Man) 0 Blast Cells % (Manual) 0 Nucleated RBC % 0 Metamyelocytes 0 Platelet Estimate Normal Anisocytosis 2+ Sodium 131 L Potassium 4.4 Chloride 97 L Carbon Dioxide 29 Anion Gap 6 L BUN 31.4 H Creatinine 0.5 L Est GFR (CKD-EPI)AfAm 130.88 Est GFR (CKD-EPI)NonAf 112.92 POC Glucometer 126 Random Glucose 142 H Calcium 8.3 L Total Bilirubin 0.5 AST 8 L ALT 22 Alkaline Phosphatase 85 Total Protein 6.0 L Albumin 2.6 L 03/21/19 03/22/19 03/23/19 13:25 07:40 08:04 WBC 11.1 H 12.2 H 14.9 H Hgb 10.3 L 10.3 L 10.4 L Hct 33.0 L 32.3 L 32.3 L RDW 26.5 H 25.5 H 25.8 H Plt Count 252 240 03/24/19 03/25/19 03/26/19 07:10 07:00 07:45 WBC 16.0 H 15.4 H 18.1 H Hgb 10.9 L 11.8 11.6 L Hct 33.7 L 37.0 36.1 RDW Plt Count 253 234 253 03/28/19 04/01/19 04/04/19 08:05 07:42 07:00 WBC 19.1 H 17.8 H 23.6 H Hgb 11.4 L 11.8 Hct 35.5 36.5 RDW Plt Count 237 181 D 03/21/19 03/22/19 04/02/19 13:25 07:40 07:20 PT with INR 16.50 H 18.00 H 13.50 H INR 1.39 H 1.52 H 1.14 H PTT (Actin FS) 37.9 H 39.2 H 30.1 04/04/19 07:00 Sodium 131 L Potassium 4.4 Chloride 97 L Carbon Dioxide 29 Anion Gap 6 L BUN 31.4 H Creatinine 0.5 L Random Glucose 142 H Calcium 8.3 L Total Bilirubin 0.5 AST 8 L ALT 22 Alkaline Phosphatase 85 Total Protein 6.0 L Albumin 2.6 L 03/21/19 03/22/19 03/23/19 13:25 07:40 08:04 Sodium 134 L 134 L 132 L Potassium 4.5 4.3 Chloride 102 Carbon Dioxide 26 Anion Gap 3 L 5 L BUN 21.3 H 19.1 H 20.9 H Creatinine 0.5 L 0.4 L 0.5 L Random Glucose 108 H 126 H 134 H Calcium 8.4 L 8.7 Albumin 2.7 L 03/25/19 03/26/19 03/28/19 07:00 07:45 08:05 Sodium 133 L 134 L Potassium 4.2 4.3 Chloride 98 97 L Carbon Dioxide 28 28 Anion Gap 8 BUN 27.2 H 31.3 H Creatinine 0.7 0.7 Random Glucose 161 H 148 H Calcium 8.4 L Albumin Last admission: Microbiology 03/12/19 20:15 Sputum - Aerosol Induced AFB Smear Concentration - Final 03/10/19 15:01 Nasopharyngeal Swab Respiratory Virus Panel - Final 03/07/19 21:00 Urine For Antigen Detection Legionella Antigen - Final 03/07/19 21:00 Urine For Antigen Detection Streptococcus pneumoniae Antigen (M - Final 03/12/19 20:15 Sputum - Aerosol Induced Mycobacterial Culture - Preliminary Imaging chest CT: 5 x 4.5 x 4.5 cm noncalcified irregular lesion in posterior medial aspect of R pulm apex with partial erosion of the contiguous R lateral border of the T3 vertebral body and R third rib. no gross intraspinal extension seen on the basis of noncontrast imaging. confluent R hilar lymphadenopathy noted. enlarged pretracheal and R paratracheal mediastinal LN are also seen with short axis diameter of 2.9cm. a 1.4x 1 cm polypod lesion is seen within the R mainstem bronchus probably on the basis of transbronchial extension from the contuguous lymphadenopathy. mild upper lobe opacity seen probably on basis of mild obstructive atelectasis. moderate R sided and small to moderate L sided pleural effusions are noted layering posteriorly. there is nonspecific enlargement of the L adrenal gland measuring 2.5 x 1.1cm. healed right rib fx posteriorly RUQ u/s: non-mobile gallstones without sonographic evidence of acute cholecystitis. hepatomegaly, mild fatty liver. R pleural effusion. Brain MRI: 0.7 cm enhancing lesion consistent with metastatic neoplastic dz in the L cerebellar hemisphere. no perilesional edema is seen. a subtle 0.3cm additional neoplastic lesion is noted in the R occipital lobe posteriorly with minimal perilesional edema. smal supratentorial and infratentorial chronic infarcts are noted. C-spine MRI/T-spine MRI: mild degenerative disc disease. no evidence of stenosis. in the thoracic spine there is a R paraspinal soft tissue mass 5.3x 5.3 cm with enhancement. mass is involving the R lateral aspect of T3 vertebral body with abnormal signal intensity identified. bone destruction with R transverse process of T3, right pedicle and probably extending to the Right lamina are present. mass is extending into right lateral aspect of spinal canal with mass effect on thecal sac and slightly displacing the upper thoracic cord towards left. it is extending to T2-T3 and right T3-T4 neural foramen. the right extradural soft tissue mass in the spinal canal is extending from lower T2 down to lower T4 level but os more prominent at T4. no cord compression is evident. HOSPITAL COURSE: Date of Admission:03/21/19 Date of Discharge: 04/04/19 68 y/o M from [facility] with hx schizophrenia, MDD, afib, DM, HLD, CAD, with newly diagnosed lung CA who initially presented on last admission with RUL mass a/w mediastinal KAYLYN, erosion of T3, R 3rd rib and newly dx brain mets. Pt returned to [facility] for concern of cord compression. Underwent radiation therapy. He is being sent home on a decadron taper: #RUL mass a/w mediastinal LN erosion of T3, R3rd rib, newly dx brain mets -was concern for cord compression -s/p CT for markings, completed RT to T3 spine* 5 tx -was on decadron 4mg PO BID. as RT complete, sent home on decadron taper starting with 6mg qd, decreasing by 2mg with each week. Will c/w protonix GI ppx -per psych, pt without capacity. -pt is to f/u with onc, rad onc, PCP on discharge #DM -c/w ISS, BGM ACHS #schizophrenia, MDD -c/w abilify -c/w cogentin #afib -c/w xarelto -rate control w/ cardiazem, toprol Minutes to complete discharge: 45 Discharge Summary Problems reviewed: Yes Reason For Visit: METASTATIC NEOPLASM Current Active Problems Lung cancer (Acute) S/P radiation therapy (Acute) Condition: Improved - Instructions Diet, Activity, Other Instructions: You were in the hospital because you needed radiation therapy to help the spread of your cancer to your spine. You completed your sessions. During your time in the hospital, you were also placed on a steroid. You improved, and are being sent back to your facility. Medications 1. Please take decadron (steroid) using the following taper: -6 mg daily for the next week (starting tomorrow 04/05-04/12) -4mg daily the following week (04/13-04/20) -2mg daily afterward (04/21-04/28) - then discontinue It is important to not stop the steroids abruptly to avoid hurting your adrenal glands. 2. You must take protonix (an acid suppressant) - 1 pill of 40mg daily while you are on steroids. Please take this over the month with the decadron. 3. You may continue your other medications. Care Your neurologic state/mentation will need to be monitored closely while you are continued on steroids at your facility. Follow-up Please follow up with the following doctors upon your discharge: -Your primary care doctor, Dr. Mcintosh - early this upcoming week -The radiation oncologist, Dr. Bose - 1 week -Your oncologist, Dr. Delaney - 1 week. You will discuss further therapies. Referrals: Ambrocio Mcintosh MD [Primary Care Provider] - 04/07/19 Steven Bose MD [Staff Physician] - 1 Week Carlos Delaney MD [Staff Physician] - 2 Weeks Disposition: HOME - Home Medications Comprehensive Discharge Medication List: Ambulatory Orders Acetaminophen [Tylenol] 650 mg PO Q6H PRN 09/05/18 Aripiprazole [Abilify -] 5 mg PO DAILY 09/05/18 Furosemide [Lasix] 20 mg PO DAILY 5 Days #5 tablet 12/09/18 Benztropine Mesylate [Cogentin -] 0.5 mg PO DAILY 01/13/19 Rivaroxaban [Xarelto -] 20 mg PO DAILY@1800 #30 tablet 01/16/19 Diltiazem [Cardizem -] 30 mg PO Q8H tablet 02/19/19 Lisinopril [Prinivil] 2.5 mg PO DAILY tablet 02/19/19 Metoprolol Succinate 100 mg PO BID #30 tab.er.24h 02/19/19 Ascorbate Calcium [Vitamin C] 500 mg PO DAILY 03/07/19 Calcium Carbonate/Vitamin D3 [Oystercal-D 500 mg-400 Unit Tb] 1 each PO DAILY Ferrous Sulfate 325 mg PO DAILY 03/07/19 Calcium (Oyster Shell) [Os-Davey 500MG -] 500 mg PO DAILY tablet 03/19/19 Cholecalciferol (Vitamin D3) [Vitamin D -] 400 unit PO DAILY tab 03/19/19 Insulin Sliding Scale [Novolog Vial Sliding Scale -] 1 vial SQ ACHS units 03/19 Nystatin Ointment [Mycostatin Ointment -] 1 applic TP BID #0 applic 03/19/19 Dexamethasone [Decadron -] 4 mg PO DAILY #7 tablet 04/04/19 Dexamethasone [Decadron] 2 mg PO DAILY #7 tablet 04/04/19 Dexamethasone [Decadron] 6 mg PO DAILY #7 tablet 04/04/19 Pantoprazole Sodium [Protonix] 40 mg PO DAILY #30 tablet. 04/04/19 This patient is new to me today: No Emergency Visit: No Critical Care patient: No - Discharge Referral Referred to [facility] No
--- NOTE | 2019-04-04 13:12 | PN ---
Progress Note (short form) - Note Progress Note: PULMONARY RESTING COMFORTABLY VSS/AFEBRILE Constitutional: Yes: Well Nourished, Calm Eyes: Yes: WNL HENT: Yes: WNL Neck: Yes: WNL Cardiovascular: Yes: Pulse Irregular, S1, S2 Respiratory: Yes: CTA Bilaterally Gastrointestinal: Yes: Normal Bowel Sounds, Soft Extremities: Yes: WNL Edema: No Labs: REVIEWED Poorly differentiated metastatic Lung CA to Brain / spine CAD Atrial Fibrillation DM Hyperlipidemia Schizophrenia - Steroids/RT/onco follow up - inhaled bronchodilators - rate controlled - continue anticoagulation - discharge planning Aguilar AUSTIN MD
[2019-04-04 16:07] VITALS: BP 103/76; TEMP 98.2
[2019-04-04] MEDS: RIVAROXABAN 20 MG TABLET PO SCH (17:36)
[2019-04-05] MEDS ORDERED: DEXAMETHASONE 4 MG TABLET (FP) PO SCH (10:00)
== END 2019-04-04 17:50 | DRG 343 ==
LOC: JER 12:02 → JERBED 13:53 → J8W 17:26
PROVIDERS: ADMIT Internal Medicine; ATTEND Internal Medicine
DX: C79.51 Secondary malignant neoplasm of bone (principal); C79.31 Secondary malignant neoplasm of brain; C34.90 Malignant neoplasm of unspecified part of unspecified bronchus or lung; I25.10 Atherosclerotic heart disease of native coronary artery without angina pectoris; I48.91 Unspecified atrial fibrillation; K21.9 Gastro-esophageal reflux disease without esophagitis; F20.9 Schizophrenia, unspecified; F32.9 Major depressive disorder, single episode, unspecified; F03.90 Unspecified dementia, unspecified severity, without behavioral disturbance, psychotic disturbance, mood disturbance, and anxiety; E78.5 Hyperlipidemia, unspecified; R00.0 Tachycardia, unspecified; E11.9 Type 2 diabetes mellitus without complications; I10 Essential (primary) hypertension; D64.9 Anemia, unspecified; M51.34 Other intervertebral disc degeneration, thoracic region; M51.04 Intervertebral disc disorders with myelopathy, thoracic region
CPT/HCPCS: 36415; 71045-TC-FY; 80048; 80053; 82962; 83735; 84100; 85025; 85027; 85610; 85730; 93005; 93010; 94010; 97116-GP; 97162-GP; 99281-25; J1100; J3489

== ENCOUNTER 2019-06-06 19:34 | Inpatient (IN) | payer OTHER ==
--- NOTE | 2019-06-06 20:16 | PDOC ---
Attending Attestation - Resident Resident Name: Truong Hicks - ED Attending Attestation I have performed the following: I have examined & evaluated the patient, The case was reviewed & discussed with the resident, I agree w/resident's findings & plan - HPI HPI: 06/06/19 20:16 Pt comes with COPD history and now with SOB and nausea that began while he was eating dinner tonight. Pt has known CHF, DM, CAD, Afib, vomited some phlegm today. 06/06/19 23:43 Pt's O2 vascillates btwn 77 and 94% as per NH notes. Pt libes in a NH for his metastatic lung ca. Pt has Major depression, ataxia, schizophrenia, GERD. - Physicial Exam PE: 06/06/19 23:55 Pt is afebrile Tachycardic Small red rashes and excoriations diffuse on skin. Pt has decreased breath sounds on the right side Pt has normal breath sounds on the left Pt has no abd pain Cachectic, loss of muscle mass in legs and arms. 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 No aortic dissection seen. Right lung is collapsed. Large right effusion. Mass seen at right upper lung and mediastinum extending across midline compatible with malignancy. SVC is occluded. Adjacent blood vessels are encased by mass, and right bronchus is occluded. There is bone invasion at T2 - 4. Pathologic compression fracture seen at T3. Mild interstitial markings on the left Heart Score/ECG Review - ECG Intrepretation Rhythm: Irregularly Irregular - Morley Morley: Normal - P and GA Prominent R with upright T in V1 (true posterior GA): No - QRS Poor R Wave Progression: No Q Wave Present: No - ST and T Early Repolarization: No Non Specific ST-T Wave changes: No Flattened T Waves: No Prolonged Q-T Interval: No - ECG Impressions Normal ECG: No Non-specific ST Elevation: No Ischemic Changes: No
--- NOTE | 2019-06-06 20:17 | PDOC ---
History of Present Illness - General Chief Complaint: Shortness of Breath Stated Complaint: SOB/CONGESTION Time Seen by Provider: 06/06/19 20:15 - History of Present Illness Initial Comments: 06/06/19 20:16 Mr. Theodore is a 68 yo male w/ pmh of schizophrenia, afib, DM, HLD, CAD, w/ newly diagnosed lung CA (w/ brain mets) who presents for evaluation of sudden onset shortness of breath and nausea while eating dinner earlier today. Patient reports he feels somewhat improved now however is still slightly short of breath on 3L O2. Denies other symptoms at this time. The patient denies chest pain, headache and dizziness. Denies fever, chills, vomit, diarrhea and constipation. Denies dysuria, frequency, urgency and hematuria. Past History - Past Medical History Allergies/Adverse Reactions: Allergies Allergy/AdvReac Type Severity Reaction Status Date / Time chlorpromazine Allergy Verified 06/06/19 19:43 [From Thorazine] torazine Allergy Uncoded 06/06/19 19:43 Home Medications: Ambulatory Orders Acetaminophen [Tylenol] 650 mg PO Q6H PRN 09/05/18 Aripiprazole [Abilify -] 5 mg PO DAILY 09/05/18 Furosemide [Lasix] 20 mg PO DAILY 5 Days #5 tablet 12/09/18 Benztropine Mesylate [Cogentin -] 0.5 mg PO DAILY 01/13/19 Rivaroxaban [Xarelto -] 20 mg PO DAILY@1800 #30 tablet 01/16/19 Diltiazem [Cardizem -] 30 mg PO Q8H tablet 02/19/19 Lisinopril [Prinivil] 2.5 mg PO DAILY tablet 02/19/19 Metoprolol Succinate 100 mg PO BID #30 tab.er.24h 02/19/19 Ascorbate Calcium [Vitamin C] 500 mg PO DAILY 03/07/19 Calcium Carbonate/Vitamin D3 [Oystercal-D 500 mg-400 Unit Tb] 1 each PO DAILY Ferrous Sulfate 325 mg PO DAILY 03/07/19 Calcium (Oyster Shell) [Os-Davey 500MG -] 500 mg PO DAILY tablet 03/19/19 Cholecalciferol (Vitamin D3) [Vitamin D -] 400 unit PO DAILY tab 03/19/19 Insulin Sliding Scale [Novolog Vial Sliding Scale -] 1 vial SQ ACHS units 03/19 Nystatin Ointment [Mycostatin Ointment -] 1 applic TP BID #0 applic 03/19/19 Dexamethasone [Decadron -] 4 mg PO DAILY #7 tablet 04/04/19 Dexamethasone [Decadron] 2 mg PO DAILY #7 tablet 04/04/19 Dexamethasone [Decadron] 6 mg PO DAILY #7 tablet 04/04/19 Pantoprazole Sodium [Protonix] 40 mg PO DAILY #30 tablet. 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) Cardiac Disorders: Yes (Atrial Fib, CAD) COPD: No CHF: Yes Diabetes: Yes GI Disorders: Yes (Gerd) Disorders: No HTN: Yes Hypercholesterolemia: Yes Psychiatric Problems: Yes (schizophrenia, dementia) - Surgical History Abdominal Surgery: Yes Orthopedic Surgery: Yes (L knee) - Immunization History Immunization Up to Date: Yes - Psycho Social/Smoking Cessation Hx Smoking History: Never smoked Have you smoked in the past 12 months: No Number of Cigarettes Smoked Daily: 75 If you are a former smoker, when did you quit?: 3 months ago Information on smoking cessation initiated: No 'Breaking Loose' booklet given: 03/07/19 Hx Alcohol Use: No Drug/Substance Use Hx: No Substance Use Type: None Hx Substance Use Treatment: No Review of Systems - Review of Systems Comments:: 06/06/19 20:23 GENERAL/CONSTITUTIONAL: No fever or chills. No weakness. HEAD, EYES, EARS, NOSE AND THROAT: No change in vision. No ear pain or discharge. No sore throat. CARDIOVASCULAR: No chest pain or shortness of breath RESPIRATORY: +Wheezing and SOB as described. No cough or hemoptysis. GASTROINTESTINAL: +Nausea w/out vomiting as described. No diarrhea or constipation. GENITOURINARY: No dysuria, frequency, or change in urination. MUSCULOSKELETAL: No joint or muscle swelling or pain. No neck or back pain. SKIN: No rash NEUROLOGIC: No headache, vertigo, loss of consciousness, or change in strength/ sensation. ENDOCRINE: No increased thirst. No abnormal weight change HEMATOLOGIC/LYMPHATIC: No anemia, easy bleeding, or history of blood clots. ALLERGIC/IMMUNOLOGIC: No hives or skin allergy. *Physical Exam - Vital Signs Last Vital Signs Temp Pulse Resp BP Pulse Ox 98.0 F 109 H 18 99/71 98 06/06/19 19:43 06/06/19 19:43 06/06/19 19:43 06/06/19 19:43 06/06/19 19:43 - Physical Exam 06/06/19 20:24 GENERAL: On 3.5L O2. Awake, alert, and fully oriented, in no acute distress HEAD: No signs of trauma, normocephalic, atraumatic EYES: PERRLA, EOMI, sclera anicteric, conjunctiva clear ENT: Auricles normal inspection, hearing grossly normal, nares patent, oropharynx clear without exudates. Moist mucosa NECK: Normal ROM, supple, no lymphadenopathy, JVD, or masses LUNGS: +Diffusely tight. Expiratory wheezes appreciated in lower lung [place]. No distress, speaks full sentences HEART: Regular rate and rhythm, normal S1 and S2, no murmurs, rubs or gallops, peripheral pulses normal and equal bilaterally. ABDOMEN: Soft, nontender, normoactive bowel sounds. No guarding, no rebound. No masses EXTREMITIES: Normal inspection, Normal range of motion, no edema. No clubbing or cyanosis. NEUROLOGICAL: Cranial nerves II through XII grossly intact. Normal speech, normal gait, no focal sensorimotor deficits SKIN: Warm, Dry, normal turgor, no rashes or lesions noted. ED Treatment Course - LABORATORY CBC & Chemistry Diagram: 06/06/19 20:58 06/06/19 20:29 Medical Decision Making - Medical Decision Making 06/07/19 00:54 Mr. Theodore is a 68 yo male w/ pmh as described who presents for evaluation of shortness of breath concerning for lung pathology. Labs and CTA performed. CTA concerning for mass w/ large R effusion and collapsed lung. Patient will be admitted for worsening oxygen requirements. IMPRESSION: No pulmonary embolism seen. No aortic dissection seen. Right lung is collapsed. Large right effusion. Mass seen at right upper lung and mediastinum extending across midline compatible with malignancy. SVC is occluded. Adjacent blood vessels are encased by mass, and right bronchus is occluded. There is bone invasion at T2 - 4. Pathologic compression fracture seen at T3. Mild interstitial markings on the left. 06/07/19 01:15 Patient admitted to hospitalist team for oxygen as well as oncological f/u and possible IR drainage as needed of pleural effusion. Discharge - Discharge Information Problems reviewed: Yes Clinical Impression/Diagnosis: Pleural effusion, Collapse of right lung - Admission Yes - Follow up/Referral - Patient Discharge Instructions - Post Discharge Activity
[2019-06-06] MEDS ORDERED: methylPREDNISolone NA SUCC 125 MG/2 ML VIAL IVPB ONE (20:27)
[2019-06-06] MEDS ORDERED: ALBUTEROL SO4 2.5/IPRATROPIUM 0.5 INH SOL 3 ML VIAL.NEB. NEB ONE ×2 (20:27→20:52)
[2019-06-06] MEDS ORDERED: methylPREDNISolone NA SUCC 125 MG/2 ML VIAL ONE (20:34)
[2019-06-06 21:31] LABS: BASO % 0.9 % (0-2.0); EOS % 2.5 % (0-4.5); HEMATOCRIT 32.6 % (35.4-49); HEMOGLOBIN 10.4 GM/dL (11.7-16.9); LYMPH % 3.3 % (8-40); MCH 26.8 pg (25.7-33.7); MCHC 31.9 g/dl (32.0-35.9); MEAN CELL VOLUME 84.1 fl (80-96); MEAN PLT VOLUME 7.8 fl (7.5-11.1); MONO % 6.7 % (3.8-10.2); NEUT % 86.6 % (42.8-82.8); PLATELET COUNT 267 K/MM3 (134-434); RBC 3.87 M/mm3 (4.00-5.60); RDW 21.6 % (11.9-15.9); WHITE BLOOD COUNT 12.4 K/mm3 (4.0-10.0)
[2019-06-06 21:42] LABS: INR 2.48 (0.83-1.09); PROTHROMBIN TIME (PATIENT) 29.5 SEC (9.7-13.0)
[2019-06-06 21:45] LABS: ACTIVATED PTT 48.2 SECONDS (25.2-36.5)
[2019-06-06 22:06] LABS: ALBUMIN 2.5 g/dl (3.4-5.0); ALK PHOS 96 U/L (45-117); ANION GAP 6 MMOL/L (8-16); BILIRUBIN,TOTAL 0.2 mg/dL (0.2-1); BLOOD UREA NITROGEN 12.8 mg/dL (7-18); CHLORIDE 101 mmol/L (98-107); CO2 32 mmol/L (21-32); CREATININE 0.6 mg/dL (0.55-1.3); GLUCOSE,RANDOM 164 mg/dL (74-106); POTASSIUM 4.1 mmol/L (3.5-5.1); SGOT/AST 10 U/L (15-37); SGPT/ALT 12 U/L (13-61); SODIUM 139 mmol/L (136-145); TOT PROT 6.4 g/dl (6.4-8.2)
[2019-06-06 22:57] LABS: ANISOCYTOSIS 2+; MACROCYTOSIS 1+; OVALOCYTE 1+; PLATELET ESTIMATE ADEQUATE
--- NOTE | 2019-06-07 02:36 | HP ---
Admitting History and Physical - Primary Care Physician PCP: Ambrocio Mcintosh ([facility]) - Admission Chief Complaint: SOB, Nausea History of Present Illness: This is a 68 y/o man from [facility] with a PMHx of Schizophrenia, Afib, DM, HLD, CAD, w/newly diagnosed lung CA (w/brain mets). Who presents to the ED for evaluation of sudden onset shortness of breath and nausea while eating dinner earlier today. Patient reports breathing improved on O2. Patient denies CP, palpitations. Patient denies fever, chills, dizziness, RIDER, AP, N/V/D, constipation, dysuria History Source: Patient, Transfer Record Limitations to Obtaining History: Clinical Condition, Poor Historian - Past Medical History Cardiovascular: Yes: AFIB, HTN, Hyperlipdemia Heme/Onc: Yes: Cancer Psych: Yes: Schizophrenia Endocrine: Yes: Diabetes Mellitus - Smoking History Smoking history: Former smoker Have you smoked in the past 12 months: No Aproximately how many cigarettes per day: 75 If you are a former smoker, when did you quit?: 3 months ago - Alcohol/Substance Use Hx Alcohol Use: No History of Substance Use: reports: None - Social History Usual Living Arrangement: Yes: Group Home ADL: Support 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 Travel: No Home Medications - Allergies Allergies/Adverse Reactions: Allergies Allergy/AdvReac Type Severity Reaction Status Date / Time chlorpromazine Allergy Verified 06/06/19 19:43 [From Thorazine] torazine Allergy Uncoded 06/06/19 19:43 - Home Medications Home Medications: Ambulatory Orders Acetaminophen [Tylenol] 650 mg PO Q6H PRN 09/05/18 Aripiprazole [Abilify -] 5 mg PO DAILY 09/05/18 Rivaroxaban [Xarelto -] 20 mg PO DAILY@1800 #30 tablet 01/16/19 Diltiazem [Cardizem -] 30 mg PO Q8H tablet 02/19/19 Lisinopril [Prinivil] 2.5 mg PO DAILY tablet 02/19/19 Metoprolol Succinate 100 mg PO BID #30 tab.er.24h 02/19/19 Ascorbate Calcium [Vitamin C] 500 mg PO DAILY 03/07/19 Calcium Carbonate/Vitamin D3 [Oystercal-D 500 mg-400 Unit Tb] 1 each PO DAILY Ferrous Sulfate 325 mg PO DAILY 03/07/19 Calcium (Oyster Shell) [Os-Davey 500MG -] 500 mg PO DAILY tablet 03/19/19 Insulin Sliding Scale [Novolog Vial Sliding Scale -] 1 vial SQ ACHS units 03/19 Aa/[place]/Arg/C/Zn/Cu [Lps Critical Care Liquid] 30 ml PO DAILY Cholecalciferol (Vitamin D3) [Vitamin D -] 2,000 unit PO DAILY 06/07/19 Furosemide [Lasix] 40 mg PO DAILY 06/07/19 Omeprazole 20 mg PO DAILY 06/07/19 Zinc Oxide 20% Topical Oint 454 gm NR DAILY 06/07/19 Family Medical History Family History: Unable to Obtain Review of Systems - Review of Systems Constitutional: reports: No Symptoms Eyes: reports: No Symptoms HENT: reports: No Symptoms Neck: reports: No Symptoms Cardiovascular: reports: No Symptoms Respiratory: reports: SOB, SOB on Exertion Gastrointestinal: reports: Nausea Genitourinary: reports: No Symptoms Breasts: reports: No Symptoms Reported Musculoskeletal: reports: No Symptoms Integumentary: reports: No Symptoms Neurological: reports: No Symptoms Endocrine: reports: No Symptoms Hematology/Lymphatic: reports: No Symptoms Psychiatric: reports: No Symptoms Pain Intensity: 0 Physical Examination Vital Signs: Vital Signs Temperature 98.0 F 06/06/19 19:43 Pulse Rate 104 H 06/06/19 19:55 Respiratory Rate 24 H 06/06/19 19:55 Blood Pressure 91/59 L 06/06/19 19:55 O2 Sat by Pulse Oximetry (%) 97 06/06/19 19:55 Constitutional: Yes: No Distress, Calm Eyes: Yes: WNL, Conjunctiva Clear, EOM Intact, PERRL HENT: Yes: WNL, Atraumatic, Normocephalic Neck: Yes: WNL, Supple, Trachea Midline Cardiovascular: Yes: Tachycardia, Pulse Irregular, S1, S2 Respiratory: Yes: Cough (right lobes), Diminished, On Nasal O2, Rhonchi, Wheezes Gastrointestinal: Yes: WNL, Normal Bowel Sounds, Soft ...Rectal Exam: Yes: Deferred Renal/: Yes: WNL Breast(s): Yes: WNL Musculoskeletal: Yes: WNL Extremities: Yes: WNL Edema: No Peripheral Pulses WNL: Yes Neurological: Yes: WNL, Alert, Oriented, Cran Nerves II-XII Intact ...Motor Strength: WNL Psychiatric: Yes: WNL, Alert, Oriented Labs: CBC, BMP 06/06/19 20:58 06/06/19 20:29 Laboratory Results - last 24 hr 06/06/19 06/06/19 06/06/19 20:29 20:29 20:58 WBC 12.4 H RBC 3.87 L Hgb 10.4 L Hct 32.6 L MCV 84.1 MCH 26.8 MCHC 31.9 L RDW 21.6 H Plt Count 267 D MPV 7.8 Absolute Neuts (auto) 10.8 H Neutrophils % 86.6 H Lymphocytes % 3.3 L D Monocytes % 6.7 Eosinophils % 2.5 D Basophils % 0.9 Nucleated RBC % 0 Platelet Estimate Adequate Platelet Comment Giant platelets Polychromasia 1+ Poikilocytosis 1+ Anisocytosis 2+ Microcytosis 1+ Macrocytosis 1+ Ovalocytes 1+ PT with INR INR PTT (Actin FS) Sodium 139 Potassium 4.1 Chloride 101 Carbon Dioxide 32 Anion Gap 6 L BUN 12.8 Creatinine 0.6 Est GFR (CKD-EPI)AfAm 121.43 Est GFR (CKD-EPI)NonAf 104.77 Random Glucose 164 H Calcium 8.0 L Total Bilirubin 0.2 AST 10 L ALT 12 L Alkaline Phosphatase 96 Creatine Kinase 27 Troponin I < 0.02 Total Protein 6.4 Albumin 2.5 L Beta-Hydroxybutyrate 1.0 Digoxin < 0.3 L 06/06/19 20:58 WBC RBC Hgb Hct MCV MCH MCHC RDW Plt Count MPV Absolute Neuts (auto) Neutrophils % Lymphocytes % Monocytes % Eosinophils % Basophils % Nucleated RBC % Platelet Estimate Platelet Comment Polychromasia Poikilocytosis Anisocytosis Microcytosis Macrocytosis Ovalocytes PT with INR 29.50 H INR 2.48 H PTT (Actin FS) 48.2 H Sodium Potassium Chloride Carbon Dioxide Anion Gap BUN Creatinine Est GFR (CKD-EPI)AfAm Est GFR (CKD-EPI)NonAf Random Glucose Calcium Total Bilirubin AST ALT Alkaline Phosphatase Creatine Kinase Troponin I Total Protein Albumin Beta-Hydroxybutyrate Digoxin Intake & Output 06/04/19 06/05/19 06/06/19 06/07/19 23:59 23:59 23:59 23:59 Weight 78.018 kg Imaging - Results Cat Scan: Report Reviewed, Image Reviewed EKG: Image Reviewed Problem List - Problems (1) Pleural effusion Code(s): J90 - PLEURAL EFFUSION, NOT ELSEWHERE CLASSIFIED (2) Collapse of right lung Code(s): J98.11 - ATELECTASIS (3) Lung cancer Code(s): C34.90 - MALIGNANT NEOPLASM OF UNSP PART OF UNSP BRONCHUS OR LUNG (4) Mediastinal lymphadenopathy Code(s): R59.0 - LOCALIZED ENLARGED LYMPH NODES (5) Metastatic disease Code(s): C79.9 - SECONDARY MALIGNANT NEOPLASM OF UNSPECIFIED SITE (6) S/P radiation therapy Code(s): Z92.3 - PERSONAL HISTORY OF IRRADIATION (7) Afib Code(s): I48.91 - UNSPECIFIED ATRIAL FIBRILLATION Qualifiers: Atrial fibrillation type: persistent (8) Anemia Code(s): D64.9 - ANEMIA, UNSPECIFIED Qualifiers: Anemia type: unspecified type Qualified Code(s): D64.9 - Anemia, unspecified (9) CAD (coronary artery disease) Code(s): I25.10 - ATHSCL HEART DISEASE OF [place] CORONARY ARTERY W/O ANG PCTRS (10) Diabetes Code(s): E11.9 - TYPE 2 DIABETES MELLITUS WITHOUT COMPLICATIONS (11) HTN (hypertension) Code(s): I10 - ESSENTIAL (PRIMARY) HYPERTENSION Qualifiers: Hypertension type: essential hypertension Qualified Code(s): I10 - Essential (primary) hypertension (12) Mass of upper lobe of right lung Code(s): R91.8 - OTHER NONSPECIFIC ABNORMAL FINDING OF LUNG FIELD Assessment/Plan his is a 68 y/o man from [facility] with a PMHx of Schizophrenia, Afib, DM, HLD, CAD, w/newly diagnosed lung CA (w/brain mets). Admitted to Med/Surg for Right Pleural Effusion, SOB, Lung Ca with Metastasis for further evaluation of their emergent condition. Plan: Admit # Pleural Effusion Likely secondary to Lung Ca w/Mets CTA report- no PE, no aortic dissection, right lung collapse. Large right effusion. Mass seen at right upper lung and mediastinum extending across midline compatible with malignancy. Appreciate Pulmonology consult Appreciate IR consult Appreciate Oncology consult Continue O2 Aspiration Precautions Monitor vitals Monitor CBC, BMP Duonebs prn #Lung Ca see above # Afib EKG reviewed [id number] Continue Xarelto Cardizem, BB with parameters # Diabetes Mellitus BGMs Monitor BMP Hold ISS until diet resumed # HLD Continue home med Monitor LFTs # Schizophrenia stable Continue home meds FEN Replete lytes prn NPO DVT ppx OOB SCDs Continue Xarelto Code Status: Full Code Dispo: Requires Inpatient Care Visit type - Emergency Visit Emergency Visit: Yes ED Registration Date: 06/06/19 Care time: The patient presented to the Emergency Department on the above date and was hospitalized for further evaluation of their emergent condition. - New Patient This patient is new to me today: Yes Date on this admission: 06/07/19 - Critical Care Critical Care patient: No
[2019-06-07] MEDS ORDERED: ALBUTEROL SO4 0.083% IH SOL 2.5 MG/3 ML VIAL.NEB. NEB PRN (05:53)
[2019-06-07 06:16] LABS: BASO % 0.4 % (0-2.0); HEMATOCRIT 33.4 % (35.4-49); HEMOGLOBIN 10.7 GM/dL (11.7-16.9); LYMPH % 3.1 % (8-40); MCH 26.6 pg (25.7-33.7); MCHC 32.1 g/dl (32.0-35.9); MEAN PLT VOLUME 7.7 fl (7.5-11.1); MONO % 0.7 % (3.8-10.2); NEUT % 95.8 % (42.8-82.8); PLATELET COUNT 269 K/MM3 (134-434); RBC 4.02 M/mm3 (4.00-5.60); RDW 21.8 % (11.9-15.9); WHITE BLOOD COUNT 10.8 K/mm3 (4.0-10.0)
[2019-06-07] MEDS ORDERED: dilTIAZem HCL 30 MG TABLET (FP) ONE (06:17)
[2019-06-07] MEDS: dilTIAZem HCL 30 MG TABLET (FP) PO SCH ×3 (06:29→22:22)
[2019-06-07 06:46] LABS: BLOOD UREA NITROGEN 8.8 mg/dL (7-18); CALCIUM 7.8 mg/dL (8.5-10.1); CREATININE 0.5 mg/dL (0.55-1.3)
[2019-06-07] MEDS: ARIPiprazole 5 MG TABLET PO SCH (09:22)
[2019-06-07] MEDS ORDERED: LISINOPRIL 5 MG TABLET (FP) PO SCH (10:00)
[2019-06-07 10:41] LABS: ANISOCYTOSIS 2+; MACROCYTOSIS 0; OVALOCYTE 1+; PLATELET ESTIMATE NORMAL; TARGET CELLS 1+; TEAR DROP CELLS 1+
--- NOTE | 2019-06-07 14:31 | EKG ---
Test Reason : Blood Pressure : / mmHG Vent. Rate : 113 BPM Atrial Rate : 150 BPM P-R Int : 000 ms QRS Dur : 096 ms QT Int : 348 ms P-R-T Axes : 000 058 -54 degrees QTc Int : 477 ms ATRIAL FIBRILLATION WITH RAPID VENTRICULAR RESPONSE LOW VOLTAGE QRS SEPTAL INFARCT , AGE UNDETERMINED ABNORMAL ECG Confirmed by MD JOSSE, DARRIAN ([id number]) on 06/07/2019 2:30:36 PM Referred By: Confirmed By:DARRIAN LOAIZA MD
--- NOTE | 2019-06-07 16:56 | CON.PULM ---
Consult Consult Specialty:: PULMONARY Referred by:: CORONA Reason for Consultation:: SOB - History of Present Illness Chief Complaint: SOB History of Present Illness: This is a 68 y/o man from [facility] with a PMHx of Schizophrenia, Afib on a/c, DM , HLD, CAD, w/newly diagnosed non small cell lung CA with brain and T-spine mets and now with likely malignant effusion. Tumor does exhibit PDL-1 expression. Patient was treated with RT to spine and rul mass. Patient presents to the ED for evaluation of sudden onset shortness of breath and nausea while eating dinner earlier today. Patient reports breathing improved on O2. Patient is a poor informant. CT in ER reveals massive right sided pleural effusion with compressive atelectasis. - History Source History Provided By: Patient, Medical Record Limitations to Obtaining History: Clinical Condition - Past Medical History Cardio/Vascular: Yes: AFIB, HTN, Hyperlipdemia Pulmonary: Yes: Cancer, Other (pleural effusion) Gastrointestinal: No: Ascites Hepatobiliary: No: Cirrhosis Renal/: No: Renal Failure Heme/Onc: Yes: Anemia Psych: Yes: Schizophrenia Endocrine: Yes: Diabetes Mellitus - Alcohol/Substance Use Hx Alcohol Use: No History of Substance Use: reports: None - Smoking History Smoking history: Former smoker Have you smoked in the past 12 months: No Aproximately how many cigarettes per day: 75 If you are a former smoker, when did you quit?: 3 months ago - Social History Usual Living Arrangement: Custodial ADL: Support 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 Travel: No Home Medications - Allergies Allergies/Adverse Reactions: Allergies Allergy/AdvReac Type Severity Reaction Status Date / Time chlorpromazine Allergy Verified 06/06/19 19:43 [From Thorazine] torazine Allergy Uncoded 06/06/19 19:43 - Home Medications Home Medications: Ambulatory Orders Acetaminophen [Tylenol] 650 mg PO Q6H PRN 09/05/18 Aripiprazole [Abilify -] 5 mg PO DAILY 09/05/18 Rivaroxaban [Xarelto -] 20 mg PO DAILY@1800 #30 tablet 01/16/19 Diltiazem [Cardizem -] 30 mg PO Q8H tablet 02/19/19 Lisinopril [Prinivil] 2.5 mg PO DAILY tablet 02/19/19 Metoprolol Succinate 100 mg PO BID #30 tab.er.24h 02/19/19 Ascorbate Calcium [Vitamin C] 500 mg PO DAILY 03/07/19 Calcium Carbonate/Vitamin D3 [Oystercal-D 500 mg-400 Unit Tb] 1 each PO DAILY Ferrous Sulfate 325 mg PO DAILY 03/07/19 Calcium (Oyster Shell) [Os-Davey 500MG -] 500 mg PO DAILY tablet 03/19/19 Insulin Sliding Scale [Novolog Vial Sliding Scale -] 1 vial SQ ACHS units 03/19 Aa/[place] Julianne,[place]/Arg/C/Zn/Cu [Lps Critical Care Liquid] 30 ml PO DAILY Cholecalciferol (Vitamin D3) [Vitamin D -] 2,000 unit PO DAILY 06/07/19 Furosemide [Lasix] 40 mg PO DAILY 06/07/19 Omeprazole 20 mg PO DAILY 06/07/19 Zinc Oxide 20% Topical Oint 454 gm NR DAILY 06/07/19 Family Medical History Family History: Unable to Obtain Review of Systems Unable to obtain ROS, reason: poor informant Physical Exam Vital Sings: Vital Signs Temperature 98 F 06/07/19 12:58 Pulse Rate 87 06/07/19 15:30 Respiratory Rate 18 06/07/19 12:58 Blood Pressure 89/57 L 06/07/19 15:30 O2 Sat by Pulse Oximetry (%) 98 06/07/19 12:58 Constitutional: Yes: Calm Eyes: Yes: EOM Intact HENT: Yes: Normocephalic Neck: Yes: Trachea Midline Cardiovascular: Yes: S1, S2 Respiratory: Yes: Diminished, Dullness (on right side) Gastrointestinal: Yes: Abdomen, Obese Edema: LLE: 1+, RLE: 1+ Labs: CBC, BMP 06/07/19 05:40 06/07/19 05:40 Imaging - Results Cat Scan: Image Reviewed Problem List - Problems (1) Collapse of right lung Code(s): J98.11 - ATELECTASIS (2) Pleural effusion Code(s): J90 - PLEURAL EFFUSION, NOT ELSEWHERE CLASSIFIED (3) Lung cancer Code(s): C34.90 - MALIGNANT NEOPLASM OF UNSP PART OF UNSP BRONCHUS OR LUNG (4) Mediastinal lymphadenopathy Code(s): R59.0 - LOCALIZED ENLARGED LYMPH NODES (5) Metastatic disease Code(s): C79.9 - SECONDARY MALIGNANT NEOPLASM OF UNSPECIFIED SITE (6) S/P radiation therapy Code(s): Z92.3 - PERSONAL HISTORY OF IRRADIATION (7) Afib Code(s): I48.91 - UNSPECIFIED ATRIAL FIBRILLATION Qualifiers: Atrial fibrillation type: persistent (8) Anemia Code(s): D64.9 - ANEMIA, UNSPECIFIED Qualifiers: Anemia type: unspecified type Qualified Code(s): D64.9 - Anemia, unspecified (9) CAD (coronary artery disease) Code(s): I25.10 - ATHSCL HEART DISEASE OF [place] CORONARY ARTERY W/O ANG PCTRS (10) Diabetes Code(s): E11.9 - TYPE 2 DIABETES MELLITUS WITHOUT COMPLICATIONS (11) Schizophrenia Code(s): F20.9 - SCHIZOPHRENIA, UNSPECIFIED Assessment/Plan PATIENT WILL REQUIRE CHEST TUBE DRAINAGE OF MASSIVE RIGHT PLEURAL EFFUSION SEND PLEURAL FLUID FOR CYTOLOGY NO NEED FOR STEROIDS CONTINUE SUPPLEMENTAL O2 DO NOT DISCONTINUE PSYCH MEDS A/C ON HOLD FOR NOW AF RATE CONTROL/MAY NEED ANTICOAGULATION WITH IV HEPARIN OVER WEEKEND, TO BE HELD 12 HOURS PRIOR TO TUBE DRAINAGE WOULD ADMIT TO TELEMETRY CARDIOLOGY CONSULT Aguilar AUSTIN MD
--- NOTE | 2019-06-07 17:48 | CONSULT ---
Consult Consult Specialty:: Heme/onc Referred by:: Dr. Spann Reason for Consultation:: lung ca - History of Present Illness Chief Complaint: sob History of Present Illness: 68M with HTN, Afib, CAD, DM, HLD schizophrenia, and poorly differentiated metastatic carcinoma of lung (dx 02/2019 has not started treatment) presents with sudden onset of SOB. CTA with right lung collapse and large right pleural effusion. No evidence of PE. Pt has a 5 cm RUL mass with hilar and mediastinal adenopathy, left adrenal enlargement, T3 vertebral body metastases, paravertebral mass, foraminal obstruction by the mass at T2-3, displacement of the cord, left cerebellar 0.7cm and rt. occipital metastasis). S/p RT to spine and steroid taper. PDL1 > 90% and next generation sequencing is pending. Pt has schizophrenia, memory loss andis deemed to not have capacity to make his own decisions by psych. Case was reviewed by hospital ethics group -- patient can proceed with treatment with 2 physician consensus and patient not actively refusing treatment. Continues to have SOB, dry cough. Denies fever. - Past Medical History Cardio/Vascular: Yes: AFIB, HTN, Hyperlipdemia Pulmonary: Yes: Cancer, Other (pleural effusion) Gastrointestinal: No: Ascites Hepatobiliary: No: Cirrhosis Renal/: No: Renal Failure Psych: Yes: Schizophrenia Endocrine: Yes: Diabetes Mellitus - Alcohol/Substance Use Hx Alcohol Use: No History of Substance Use: reports: None - Smoking History Smoking history: Former smoker Have you smoked in the past 12 months: No Aproximately how many cigarettes per day: 75 If you are a former smoker, when did you quit?: 3 months ago - Social History Usual Living Arrangement: [facility] ADL: Support 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 Travel: No Home Medications - Allergies Allergies/Adverse Reactions: Allergies Allergy/AdvReac Type Severity Reaction Status Date / Time chlorpromazine Allergy Verified 06/06/19 19:43 [From Thorazine] torazine Allergy Uncoded 06/06/19 19:43 - Home Medications Home Medications: Ambulatory Orders Acetaminophen [Tylenol] 650 mg PO Q6H PRN 09/05/18 Aripiprazole [Abilify -] 5 mg PO DAILY 09/05/18 Rivaroxaban [Xarelto -] 20 mg PO DAILY@1800 #30 tablet 01/16/19 Diltiazem [Cardizem -] 30 mg PO Q8H tablet 02/19/19 Lisinopril [Prinivil] 2.5 mg PO DAILY tablet 02/19/19 Metoprolol Succinate 100 mg PO BID #30 tab.er.24h 02/19/19 Ascorbate Calcium [Vitamin C] 500 mg PO DAILY 03/07/19 Calcium Carbonate/Vitamin D3 [Oystercal-D 500 mg-400 Unit Tb] 1 each PO DAILY Ferrous Sulfate 325 mg PO DAILY 03/07/19 Calcium (Oyster Shell) [Os-Davey 500MG -] 500 mg PO DAILY tablet 03/19/19 Insulin Sliding Scale [Novolog Vial Sliding Scale -] 1 vial SQ ACHS units 03/19 Aa/Largo Julianne,[place]/Arg/C/Zn/Cu [Lps Critical Care Liquid] 30 ml PO DAILY Cholecalciferol (Vitamin D3) [Vitamin D -] 2,000 unit PO DAILY 06/07/19 Furosemide [Lasix] 40 mg PO DAILY 06/07/19 Omeprazole 20 mg PO DAILY 06/07/19 Zinc Oxide 20% Topical Oint 454 gm NR DAILY 06/07/19 Review of Systems - Review of Systems Constitutional: denies: Diaphoresis, Fever Eyes: reports: No Symptoms Cardiovascular: reports: Shortness of Breath. denies: Chest Pain Respiratory: reports: SOB, SOB on Exertion Gastrointestinal: reports: No Symptoms Physical Exam Vital Signs: Vital Signs Temperature 98 F 06/07/19 12:58 Pulse Rate 87 06/07/19 15:30 Respiratory Rate 18 06/07/19 12:58 Blood Pressure 89/57 L 06/07/19 15:30 O2 Sat by Pulse Oximetry (%) 98 06/07/19 12:58 Constitutional: Yes: No Distress Eyes: Yes: Conjunctiva Clear Cardiovascular: Yes: Regular Rate and Rhythm Respiratory: Yes: Regular, Diminished (at right base) Gastrointestinal: Yes: Soft. No: Distention, Palpable Mass Edema: No Edema: LLE: 1+, RLE: 1+ Labs: CBC, BMP 06/07/19 05:40 06/07/19 05:40 Assessment/Plan 68M with HTN, Afib, CAD, DM, HLD schizophrenia, and recently diagnosed poorly differentiated metastatic carcinoma of lung (has not started treatment) presents with sudden onset of SOB. CTA with right lung collapse and large right pleural effusion. No evidence of PE. Appreciate pulmonary evaluation -- planned for drainage Will continue to follow
[2019-06-07] MEDS ORDERED: RIVAROXABAN 20 MG TABLET PO SCH (18:00)
[2019-06-07] MEDS ORDERED: ACETAMINOPHEN 325 MG TABLET (FP) PO PRN (18:38)
--- NOTE | 2019-06-07 18:49 | PN ---
Progress Note, Physician Chief Complaint: SOB Pleural effusion Metastatic lung ca History of Present Illness: NAD Confused SOB - Current Medication List Current Medications: Active Medications Acetaminophen (Tylenol -) 650 mg PO Q6H PRN PRN Reason: PAIN LEVEL 1-5 Albuterol Sulfate (Ventolin 0.083% Nebulizer Soln -) 1 amp NEB RQID PRN PRN Reason: SHORT OF BREATH/WHEEZING Aripiprazole (Abilify) 5 mg PO DAILY [facility] Last Admin: 06/07/19 09:22 Dose: 5 mg Calcium Carbonate (Os-Davey 500mg -) 500 mg PO DAILY [facility] Cholecalciferol (Vitamin D3 -) 2,000 unit PO DAILY [facility] Diltiazem HCl (Cardizem -) 30 mg PO Q8H [facility] Last Admin: 06/07/19 15:29 Dose: Not Given Enoxaparin Sodium (Lovenox -) 80 mg SQ Q12H [facility] Insulin Aspart (Novolog Vial Sliding Scale -) 1 vial SQ [facility]; Protocol Lisinopril (Prinivil) 2.5 mg PO DAILY [facility] Last Admin: 06/07/19 09:22 Dose: 2.5 mg Metoprolol Succinate (Toprol Xl -) 100 mg PO BID [facility] Last Admin: 06/07/19 09:22 Dose: 100 mg - Objective Vital Signs: Vital Signs Temperature 98 F 06/07/19 12:58 Pulse Rate 87 06/07/19 15:30 Respiratory Rate 18 06/07/19 12:58 Blood Pressure 89/57 L 06/07/19 15:30 O2 Sat by Pulse Oximetry (%) 98 06/07/19 12:58 Constitutional: Yes: Well Nourished, Calm, Mild Distress Cardiovascular: Yes: Regular Rate and Rhythm Respiratory: Yes: On Nasal O2, SOB Gastrointestinal: Yes: Normal Bowel Sounds, Soft Genitourinary: Yes: Incontinence Musculoskeletal: Yes: Muscle Weakness Extremities: Yes: WNL Edema: No Peripheral Pulses WNL: Yes Neurological: Yes: Alert, Confusion, Lethargy Psychiatric: Yes: Alert Labs: CBC, BMP 06/07/19 05:40 06/07/19 05:40 INR, PTT INR 2.48 (0.83-1.09) H 06/06/19 20:58 Problem List - Problems (1) SOB (shortness of breath) Assessment/Plan: -CTA Chest:with right lung collapse and large right pleural effusion. No evidence of PE. 5 cm RUL mass with hilar and mediastinal adenopathy, left adrenal enlargement, T3 vertebral body metastases, paravertebral mass, foraminal obstruction by the mass at T2-3, displacement of the cord, left cerebellar 0.7cm and rt. occipital metastasis. -Pulmonary on board -O2 to keep SpO2>90% -Bronchodilators -IR to place chest drain -Xarelto on hold -Lovenox 80 mg SQ BID for dvt ppx for afib Problems reviewed: Yes Code(s): R06.02 - SHORTNESS OF BREATH (2) Collapse of right lung Problems reviewed: Yes Code(s): J98.11 - ATELECTASIS (3) Pleural effusion Problems reviewed: Yes Code(s): J90 - PLEURAL EFFUSION, NOT ELSEWHERE CLASSIFIED (4) Lung cancer Assessment/Plan: -Oncology consult -Overall poor prognosis Problems reviewed: Yes Code(s): C34.90 - MALIGNANT NEOPLASM OF UNSP PART OF UNSP BRONCHUS OR LUNG (5) Metastatic disease Problems reviewed: Yes Code(s): C79.9 - SECONDARY MALIGNANT NEOPLASM OF UNSPECIFIED SITE (6) Diabetes Assessment/Plan: -recheck A1c -BGM AC HS Problems reviewed: Yes Code(s): E11.9 - TYPE 2 DIABETES MELLITUS WITHOUT COMPLICATIONS (7) Schizophrenia Assessment/Plan: -Continue Abilify Problems reviewed: Yes Code(s): F20.9 - SCHIZOPHRENIA, UNSPECIFIED (8) Afib Assessment/Plan: -Tele m onitor -chronic -cardiology consult -Lovenox 80 mg SQ BID for dvt ppx for afib Problems reviewed: Yes Code(s): I48.91 - UNSPECIFIED ATRIAL FIBRILLATION Qualifiers: Atrial fibrillation type: persistent (9) Hypotension Assessment/Plan: -Hold Lisinopril -Cardizem with parameters -If needed will decrease BB -Cardiology consult Problems reviewed: Yes Code(s): I95.9 - HYPOTENSION, UNSPECIFIED Assessment/Plan See problem list
[2019-06-07] MEDS: ENOXAPARIN NA (PORCINE) 80 MG/0.8 ML DISP.SYRIN SQ SCH (19:09)
[2019-06-07] MEDS ORDERED: SODIUM CHLORIDE 500 ML IV STA (19:50)
[2019-06-07] MEDS ORDERED: ENOXAPARIN NA (PORCINE) 80 MG/0.8 ML DISP.SYRIN SQ ONE (20:07)
[2019-06-07] MEDS: INSULIN SLIDING SCALE (NOVOLOG) 1 VIAL SQ SCH (22:53)
[2019-06-08] MEDS: SODIUM CHLORIDE 1,000 ML IV SCH (00:47)
[2019-06-08] MEDS ORDERED: SODIUM CHLORIDE 500 ML IV STA (00:49)
--- NOTE | 2019-06-08 00:56 | HOSP ---
Subjective - Review of Symptoms Events since last encounter: Hospitalist Encounter Notified by the RN that the patient is still hypotensive after fluid bolus. BP 86/50 P 110-120's irregular. Arrived at bedside, patient is awake, alert, oriented to name- baseline, with 3LNC. Patient denies SOB, CP, palpitations, AP. Assessment: This is a 68 y/o man from [facility] with a PMHx of Schizophrenia, Afib, DM, HLD, CAD, w/newly diagnosed lung CA (w/brain mets). Admitted to Med/Surg for Right Pleural Effusion, SOB, Lung Ca with Metastasis Upgraded to Telemetry per review of Primary Team's note Plan: NS bolus, NS maintenance Stat EKG CBC, CMP, Lactic Acid, INR Call placed to [employer], awaiting call back Possible possible upgrade to ICU- Obstructive Shock Physical Examination Vital Signs: Vital Signs Temperature 98 F 06/07/19 12:58 Pulse Rate 110 H 06/08/19 00:27 Respiratory Rate 20 06/08/19 00:27 Blood Pressure 80/47 L 06/08/19 00:27 O2 Sat by Pulse Oximetry (%) 96 06/08/19 00:27 Constitutional: Yes: Anxious, Thin Eyes: Yes: WNL, Conjunctiva Clear, EOM Intact, PERRL HENT: Yes: Atraumatic, Normocephalic, Other (dry mucous membranes) Neck: Yes: WNL, Supple, Trachea Midline Cardiovascular: Yes: Tachycardia, Pulse Irregular, JVD (mild), S1, S2 Respiratory: Yes: Accessory Muscle Use (abdominal), Diminished (r- lobes), On Nasal O2, Rhonchi, Tachypnea Edema: No Peripheral Pulses WNL: Yes Neurological: Yes: Alert, Cran Nerves II-XII Intact ...Motor Strength: WNL Psychiatric: Yes: Alert Labs: CBC, BMP 06/07/19 05:40 06/07/19 05:40 Laboratory Results - last 24 hr 06/06/19 06/07/19 06/07/19 20:29 05:40 05:40 WBC 10.8 H RBC 4.02 Hgb 10.7 L Hct 33.4 L MCV 83.0 MCH 26.6 MCHC 32.1 RDW 21.8 H Plt Count 269 MPV 7.7 Absolute Neuts (auto) 10.3 H Neutrophils % 95.8 H Neutrophils % (Manual) 93.9 H Band Neutrophils % 3.1 Lymphocytes % 3.1 L Lymphocytes % (Manual) 0.0 L Monocytes % 0.7 L D Monocytes % (Manual) 1 L Eosinophils % 0.0 D Eosinophils % (Manual) 0.0 Basophils % 0.4 Basophils % (Manual) 0.0 Myelocytes % (Man) 0 Promyelocytes % (Man) 0 Blast Cells % (Manual) 0 Nucleated RBC % 0 Metamyelocytes 0 Hypochromia 0 Platelet Estimate Normal Polychromasia 1+ Poikilocytosis 1+ Anisocytosis 2+ Microcytosis 2+ Macrocytosis 0 Spherocytes 1+ Target Cells 1+ Tear Drop Cells 1+ Ovalocytes 1+ Sodium 139 Potassium 4.0 Chloride 102 Carbon Dioxide 34 H Anion Gap 3 L BUN 8.8 Creatinine 0.5 L Est GFR (CKD-EPI)AfAm 130.88 Est GFR (CKD-EPI)NonAf 112.92 POC Glucometer Random Glucose 171 H Calcium 7.8 L Beta-Hydroxybutyrate 1.0 06/07/19 22:36 WBC RBC Hgb Hct MCV MCH MCHC RDW Plt Count MPV Absolute Neuts (auto) Neutrophils % Neutrophils % (Manual) Band Neutrophils % Lymphocytes % Lymphocytes % (Manual) Monocytes % Monocytes % (Manual) Eosinophils % Eosinophils % (Manual) Basophils % Basophils % (Manual) Myelocytes % (Man) Promyelocytes % (Man) Blast Cells % (Manual) Nucleated RBC % Metamyelocytes Hypochromia Platelet Estimate Polychromasia Poikilocytosis Anisocytosis Microcytosis Macrocytosis Spherocytes Target Cells Tear Drop Cells Ovalocytes Sodium Potassium Chloride Carbon Dioxide Anion Gap BUN Creatinine Est GFR (CKD-EPI)AfAm Est GFR (CKD-EPI)NonAf POC Glucometer 217 Random Glucose Calcium Beta-Hydroxybutyrate Intake & Output 06/05/19 06/06/19 06/07/19 06/08/19 23:59 23:59 23:59 23:59 Weight 78.018 kg Current Medications Generic Name Dose Route Start Last Admin Trade Name Freq PRN Reason Stop Dose Admin Acetaminophen 650 mg 06/07/19 18:38 Tylenol - PO Q6H PRN PAIN LEVEL 1-5 Albuterol Sulfate 1 amp 06/07/19 05:53 Ventolin 0.083% Nebulizer Soln - NEB RQID PRN SHORT OF BREATH/WHEEZING Aripiprazole 5 mg 06/07/19 10:00 06/07/19 09:22 Abilify PO 5 mg DAILY JONATHON Administration Calcium Carbonate 500 mg 06/08/19 10:00 Os-Davey 500mg - PO DAILY [facility] Cholecalciferol 2,000 unit 06/08/19 10:00 Vitamin D3 - PO DAILY JONATHON Diltiazem HCl 30 mg 06/07/19 06:00 06/07/19 22:22 Cardizem - PO Not Given Q8H JONATHON Enoxaparin Sodium 80 mg 06/07/19 19:00 06/07/19 19:09 Lovenox - SQ 80 mg Q12H JONATHON Administration Sodium Chloride 1,000 mls @ 75 mls/hr 06/08/19 00:45 06/08/19 00:47 Normal Saline - IV 75 mls/hr ASDIR JONATHON Administration Sodium Chloride 500 mls @ 500 mls/hr 06/08/19 00:49 06/08/19 00:54 Normal Saline - IV 06/08/19 01:48 500 mls/hr ASDIR STA Administration Insulin Aspart 1 vial 06/07/19 22:00 06/07/19 22:53 Novolog Vial Sliding Scale - SQ Not Given ACHS [facility] Protocol Metoprolol Succinate 100 mg 06/07/19 10:00 06/07/19 22:22 Toprol Xl - PO Not Given BID [facility] Last Vital Signs Temp Pulse Resp BP Pulse Ox 98 F 110 H 20 86/65 L 96 06/07/19 12:58 06/08/19 00:27 06/08/19 00:27 06/08/19 01:25 06/08/19 00:27 Hospitalist Encounter Outcome: EKG reviewed- Accelerated Junctional Rhythm with PVCs QTc 456, prior study Afib with RVR, septal infarct, age undetermined. Labs reviewed- wbc 15.0, H/H 10.5/33.0, lactic acid 1.9, bun/cr 19.1/0.8, glucose 182, inr 1.2 02:50- Discussed case with BRONWYN Ny, at this time patient is not a candidate for ICU. Last Vital Signs Temp Pulse Resp BP Pulse Ox 98 F 100 H 18 96/48 L 99 06/07/19 12:58 06/08/19 03:05 06/08/19 03:05 06/08/19 03:05 06/08/19 03:05 Critical Care Total Critical Care Time (in minutes): 40 Critical Care Statement: The care of this patient involved high complexity decision making to prevent further life threatening deterioration of the patient 's condition and/or to evaluate & treat vital organ system(s) failure or risk of failure.
[2019-06-08 01:45] LABS: BASO % 0.6 % (0-2.0); EOS % 1.8 % (0-4.5); HEMATOCRIT 33.5 % (35.4-49); HEMOGLOBIN 10.5 GM/dL (11.7-16.9); LYMPH % 4.5 % (8-40); MCH 26.4 pg (25.7-33.7); MCHC 31.4 g/dl (32.0-35.9); MEAN CELL VOLUME 84.1 fl (80-96); MEAN PLT VOLUME 7.8 fl (7.5-11.1); MONO % 6.7 % (3.8-10.2); NEUT % 86.4 % (42.8-82.8); PLATELET COUNT 293 K/MM3 (134-434); RBC 3.98 M/mm3 (4.00-5.60); RDW 21.5 % (11.9-15.9)
[2019-06-08 01:58] LABS: INR 1.2 (0.83-1.09); PROTHROMBIN TIME (PATIENT) 14.2 SEC (9.7-13.0)
[2019-06-08 02:15] LABS: ALBUMIN 2.4 g/dl (3.4-5.0); BILIRUBIN,TOTAL 0.2 mg/dL (0.2-1); BLOOD UREA NITROGEN 19.1 mg/dL (7-18); CALCIUM 8.2 mg/dL (8.5-10.1); CREATININE 0.8 mg/dL (0.55-1.3); POTASSIUM 4.1 mmol/L (3.5-5.1); TOT PROT 6.3 g/dl (6.4-8.2)
[2019-06-08] MEDS: dilTIAZem HCL 30 MG TABLET (FP) PO SCH ×3 (06:05→18:42)
[2019-06-08 06:25] LABS: BASO % 0.3 % (0-2.0); EOS % 2.7 % (0-4.5); HEMATOCRIT 32.6 % (35.4-49); HEMOGLOBIN 10.4 GM/dL (11.7-16.9); LYMPH % 5.7 % (8-40); MCH 26.6 pg (25.7-33.7); MCHC 31.8 g/dl (32.0-35.9); MEAN CELL VOLUME 83.4 fl (80-96); MEAN PLT VOLUME 7.6 fl (7.5-11.1); MONO % 7.4 % (3.8-10.2); NEUT % 83.9 % (42.8-82.8); PLATELET COUNT 266 K/MM3 (134-434); RDW 21.6 % (11.9-15.9); WHITE BLOOD COUNT 12.3 K/mm3 (4.0-10.0)
[2019-06-08 06:50] LABS: ALBUMIN 2.3 g/dl (3.4-5.0); BILIRUBIN,TOTAL 0.3 mg/dL (0.2-1); BLOOD UREA NITROGEN 18.6 mg/dL (7-18); CREATININE 0.6 mg/dL (0.55-1.3); POTASSIUM 4.3 mmol/L (3.5-5.1)
[2019-06-08] MEDS: ENOXAPARIN NA (PORCINE) 80 MG/0.8 ML DISP.SYRIN SQ SCH ×2 (08:29→19:46)
[2019-06-08] MEDS: INSULIN SLIDING SCALE (NOVOLOG) 1 VIAL SQ SCH ×4 (08:29→23:58)
--- NOTE | 2019-06-08 08:59 | PN ---
Progress Note, Physician Chief Complaint: SOB Pleural effusion Metastatic lung ca History of Present Illness: NAD awake & alert Still SOB Seen by pulmonary Plan for drain by IR in AM AC on hold, on Lovenox bid - Current Medication List Current Medications: Active Medications Acetaminophen (Tylenol -) 650 mg PO Q6H PRN PRN Reason: PAIN LEVEL 1-5 Albuterol Sulfate (Ventolin 0.083% Nebulizer Soln -) 1 amp NEB RQID PRN PRN Reason: SHORT OF BREATH/WHEEZING Aripiprazole (Abilify) 5 mg PO DAILY [facility] Last Admin: 06/07/19 09:22 Dose: 5 mg Calcium Carbonate (Os-Davey 500mg -) 500 mg PO DAILY [facility] Cholecalciferol (Vitamin D3 -) 2,000 unit PO DAILY [facility] Diltiazem HCl (Cardizem -) 30 mg PO Q8H [facility] Enoxaparin Sodium (Lovenox -) 80 mg SQ Q12H [facility] Last Admin: 06/08/19 08:29 Dose: 80 mg Sodium Chloride (Normal Saline -) 1,000 mls @ 75 mls/hr IV ASDIR [facility] Last Admin: 06/08/19 00:47 Dose: 75 mls/hr Insulin Aspart (Novolog Vial Sliding Scale -) 1 vial SQ ACHS [facility]; Protocol Last Admin: 06/08/19 08:29 Dose: Not Given Metoprolol Succinate (Toprol Xl -) 100 mg PO BID [facility] Last Admin: 06/07/19 22:22 Dose: Not Given - Objective Vital Signs: Vital Signs Temperature 98.3 F 06/08/19 08:17 Pulse Rate 94 H 06/08/19 08:17 Respiratory Rate 25 H 06/08/19 08:17 Blood Pressure 93/56 L 06/08/19 08:17 O2 Sat by Pulse Oximetry (%) 97 06/08/19 08:22 Constitutional: Yes: Well Nourished, No Distress, Calm Cardiovascular: Yes: Regular Rate and Rhythm Respiratory: Yes: Regular, Diminished (RLL), On Nasal O2, SOB Gastrointestinal: Yes: Normal Bowel Sounds, Soft Genitourinary: Yes: WNL, Incontinence Musculoskeletal: Yes: Muscle Weakness Extremities: Yes: WNL Edema: No Peripheral Pulses WNL: Yes Neurological: Yes: Alert, Oriented Psychiatric: Yes: Alert, Oriented Labs: CBC, BMP 06/08/19 05:40 06/08/19 05:40 INR, PTT INR 1.20 (0.83-1.09) H 06/08/19 01:30 Problem List - Problems (1) SOB (shortness of breath) Assessment/Plan: -CTA Chest:with right lung collapse and large right pleural effusion. No evidence of PE. 5 cm RUL mass with hilar and mediastinal adenopathy, left adrenal enlargement, T3 vertebral body metastases, paravertebral mass, foraminal obstruction by the mass at T2-3, displacement of the cord, left cerebellar 0.7cm and rt. occipital metastasis. -Pulmonary on board -O2 to keep SpO2>90% -Bronchodilators -IR to place chest drain -Xarelto on hold -Lovenox 80 mg SQ BID for dvt ppx for afib Problems reviewed: Yes Code(s): R06.02 - SHORTNESS OF BREATH (2) Collapse of right lung Problems reviewed: Yes Code(s): J98.11 - ATELECTASIS (3) Pleural effusion Problems reviewed: Yes Code(s): J90 - PLEURAL EFFUSION, NOT ELSEWHERE CLASSIFIED (4) Lung cancer Assessment/Plan: -Oncology consult -Overall poor prognosis Problems reviewed: Yes Code(s): C34.90 - MALIGNANT NEOPLASM OF UNSP PART OF UNSP BRONCHUS OR LUNG (5) Metastatic disease Problems reviewed: Yes Code(s): C79.9 - SECONDARY MALIGNANT NEOPLASM OF UNSPECIFIED SITE (6) Diabetes Assessment/Plan: -recheck A1c -BGM AC HS Problems reviewed: Yes Code(s): E11.9 - TYPE 2 DIABETES MELLITUS WITHOUT COMPLICATIONS (7) Schizophrenia Assessment/Plan: -Continue Abilify Problems reviewed: Yes Code(s): F20.9 - SCHIZOPHRENIA, UNSPECIFIED (8) Afib Assessment/Plan: -Tele m onitor -chronic -cardiology consult -Lovenox 80 mg SQ BID for dvt ppx for afib Problems reviewed: Yes Code(s): I48.91 - UNSPECIFIED ATRIAL FIBRILLATION Qualifiers: Atrial fibrillation type: persistent (9) Hypotension Assessment/Plan: -Hold Lisinopril -Cardizem with parameters -If needed will decrease BB -Cardiology consult Problems reviewed: Yes Code(s): I95.9 - HYPOTENSION, UNSPECIFIED Assessment/Plan See problem list
[2019-06-08] MEDS ORDERED: CALCIUM (OYSTER SHELL) 500 MG TABLET (FP) PO SCH (10:00)
[2019-06-08] MEDS ORDERED: CHOLECALCIFEROL (VIT D3) 1,000 UNIT (25 MCG) TABLET PO SCH (10:00)
[2019-06-08] MEDS: ARIPiprazole 5 MG TABLET PO SCH (10:41)
--- NOTE | 2019-06-08 14:13 | EKG ---
Test Reason : Blood Pressure : / mmHG Vent. Rate : 115 BPM Atrial Rate : 072 BPM P-R Int : 000 ms QRS Dur : 090 ms QT Int : 330 ms P-R-T Axes : 000 058 -65 degrees QTc Int : 456 ms ACCELERATED JUNCTIONAL RHYTHM WITH PREMATURE SUPRAVENTRICULAR COMPLEXES LOW VOLTAGE QRS NONSPECIFIC ST AND T WAVE ABNORMALITY ABNORMAL ECG Confirmed by MD JOSSE, DARRIAN ([id number]) on 06/08/2019 2:12:37 PM Referred By: Confirmed By:DARRIAN LOAIZA MD
--- NOTE | 2019-06-08 14:13 | PN ---
Progress Note (short form) - Note Progress Note: PULMONARY AWAKE/ALERT/NO ACUTE DISTRESS BP IMPROVED AFEBRILE Constitutional: Yes: Calm Eyes: Yes: EOM Intact HENT: Yes: Normocephalic Neck: Yes: Trachea Midline Cardiovascular: Yes: S1, S2 Respiratory: Yes: Diminished, Dullness (on right side) Gastrointestinal: Yes: Abdomen, Obese Edema: LLE: 1+, RLE: 1+ Labs: NOTED Imaging - Results Cat Scan: Image Reviewed Problem List - Problems (1) Collapse of right lung Code(s): J98.11 - ATELECTASIS (2) Pleural effusion Code(s): J90 - PLEURAL EFFUSION, NOT ELSEWHERE CLASSIFIED (3) Lung cancer Code(s): C34.90 - MALIGNANT NEOPLASM OF UNSP PART OF UNSP BRONCHUS OR LUNG (4) Mediastinal lymphadenopathy Code(s): R59.0 - LOCALIZED ENLARGED LYMPH NODES (5) Metastatic disease Code(s): C79.9 - SECONDARY MALIGNANT NEOPLASM OF UNSPECIFIED SITE (6) S/P radiation therapy Code(s): Z92.3 - PERSONAL HISTORY OF IRRADIATION (7) Afib Code(s): I48.91 - UNSPECIFIED ATRIAL FIBRILLATION Qualifiers: Atrial fibrillation type: persistent (8) Anemia Code(s): D64.9 - ANEMIA, UNSPECIFIED Qualifiers: Anemia type: unspecified type Qualified Code(s): D64.9 - Anemia, unspecified (9) CAD (coronary artery disease) Code(s): I25.10 - ATHSCL HEART DISEASE OF [place] CORONARY ARTERY W/O ANG PCTRS (10) Diabetes Code(s): E11.9 - TYPE 2 DIABETES MELLITUS WITHOUT COMPLICATIONS (11) Schizophrenia Code(s): F20.9 - SCHIZOPHRENIA, UNSPECIFIED Assessment/Plan PATIENT WILL REQUIRE CHEST TUBE DRAINAGE OF MASSIVE RIGHT PLEURAL EFFUSION/ LIKELY MALIGNANT SEND PLEURAL FLUID FOR CYTOLOGY NO NEED FOR STEROIDS CONTINUE SUPPLEMENTAL O2 DO NOT DISCONTINUE PSYCH MEDS A/C ON HOLD FOR NOW LOVENOX BID/HOLD TONIGHT'S DOSE WOULD ADMIT TO TELEMETRY CARDIOLOGY CONSULT RICK AUSTIN MD Problem List - Problems (1) Collapse of right lung Code(s): J98.11 - ATELECTASIS (2) Pleural effusion Code(s): J90 - PLEURAL EFFUSION, NOT ELSEWHERE CLASSIFIED (3) Lung cancer Code(s): C34.90 - MALIGNANT NEOPLASM OF UNSP PART OF UNSP BRONCHUS OR LUNG (4) Mediastinal lymphadenopathy Code(s): R59.0 - LOCALIZED ENLARGED LYMPH NODES (5) Metastatic disease Code(s): C79.9 - SECONDARY MALIGNANT NEOPLASM OF UNSPECIFIED SITE (6) S/P radiation therapy Code(s): Z92.3 - PERSONAL HISTORY OF IRRADIATION (7) Afib Code(s): I48.91 - UNSPECIFIED ATRIAL FIBRILLATION Qualifiers: Atrial fibrillation type: persistent (8) Anemia Code(s): D64.9 - ANEMIA, UNSPECIFIED Qualifiers: Anemia type: unspecified type Qualified Code(s): D64.9 - Anemia, unspecified (9) CAD (coronary artery disease) Code(s): I25.10 - ATHSCL HEART DISEASE OF [place] CORONARY ARTERY W/O ANG PCTRS (10) Diabetes Code(s): E11.9 - TYPE 2 DIABETES MELLITUS WITHOUT COMPLICATIONS (11) Schizophrenia Code(s): F20.9 - SCHIZOPHRENIA, UNSPECIFIED
[2019-06-08] MEDS ORDERED: dilTIAZem HCL 50 MG/10 ML - 10 ML VIAL IVPUSH ONE (17:45)
--- NOTE | 2019-06-08 17:47 | CON.CARD ---
Consult Consult Specialty:: cardiology Reason for Consultation:: AF - History of Present Illness Chief Complaint: Pt Alert; denies chest pain, and thinks he does not have fluid in his chest. He feels his heart goes fast when he pushes himself up in bed. Wants to eat ice cream. History of Present Illness: 68 yo white man w/ pmh of schizophrenia, afib, DM, HLD, systolic (low normal LVEF on ECHO 02/2019) and diastolic CHF, CAD, w/ newly diagnosed lung CA (w/ brain mets) who presents for evaluation of sudden onset shortness of breath and nausea while eating dinner earlier today. Patient reports he feels somewhat improved now; however, he is still slightly short of breath on 3L O2. Denies other symptoms at this time. - History Source History Provided By: Patient, Medical Record Limitations to Obtaining History: Poor Historian - Past Medical History Cardio/Vascular: Yes: AFIB, HTN, Hyperlipdemia Pulmonary: Yes: Cancer, Other (pleural effusion) Gastrointestinal: No: Ascites Hepatobiliary: No: Cirrhosis Renal/: No: Renal Failure Psych: Yes: Schizophrenia Endocrine: Yes: Diabetes Mellitus - Alcohol/Substance Use Hx Alcohol Use: No History of Substance Use: reports: None - Smoking History Smoking history: Former smoker Have you smoked in the past 12 months: No Aproximately how many cigarettes per day: 75 If you are a former smoker, when did you quit?: 3 months ago - Social History Usual Living Arrangement: [facility] ADL: Support 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 Travel: No Home Medications - Allergies Allergies/Adverse Reactions: Allergies Allergy/AdvReac Type Severity Reaction Status Date / Time chlorpromazine Allergy Verified 06/06/19 19:43 [From Thorazine] torazine Allergy Uncoded 06/06/19 19:43 - Home Medications Home Medications: Ambulatory Orders Acetaminophen [Tylenol] 650 mg PO Q6H PRN 09/05/18 Aripiprazole [Abilify -] 5 mg PO DAILY 09/05/18 Rivaroxaban [Xarelto -] 20 mg PO DAILY@1800 #30 tablet 01/16/19 Diltiazem [Cardizem -] 30 mg PO Q8H tablet 02/19/19 Lisinopril [Prinivil] 2.5 mg PO DAILY tablet 02/19/19 Metoprolol Succinate 100 mg PO BID #30 tab.er.24h 02/19/19 Ascorbate Calcium [Vitamin C] 500 mg PO DAILY 03/07/19 Calcium Carbonate/Vitamin D3 [Oystercal-D 500 mg-400 Unit Tb] 1 each PO DAILY Ferrous Sulfate 325 mg PO DAILY 03/07/19 Calcium (Oyster Shell) [Os-Davey 500MG -] 500 mg PO DAILY tablet 03/19/19 Insulin Sliding Scale [Novolog Vial Sliding Scale -] 1 vial SQ ACHS units 03/19 Aa/[place] Julianne,[place]/Arg/C/Zn/Cu [Lps Critical Care Liquid] 30 ml PO DAILY Cholecalciferol (Vitamin D3) [Vitamin D -] 2,000 unit PO DAILY 06/07/19 Furosemide [Lasix] 40 mg PO DAILY 06/07/19 Omeprazole 20 mg PO DAILY 06/07/19 Zinc Oxide 20% Topical Oint 454 gm NR DAILY 06/07/19 Family Medical History Family History: Denies Review of Systems - Review of Systems Constitutional: reports: Weakness Eyes: reports: No Symptoms HENT: reports: No Symptoms Neck: reports: No Symptoms Cardiovascular: denies: Chest Pain Respiratory: reports: Exercise Intolerance, SOB on Exertion Gastrointestinal: reports: No Symptoms Genitourinary: reports: No Symptoms Breasts: reports: No Symptoms Reported Musculoskeletal: reports: Muscle Weakness Integumentary: reports: No Symptoms Neurological: reports: Weakness Endocrine: reports: No Symptoms Hematology/Lymphatic: reports: No Symptoms Psychiatric: reports: Other (schizophrenia) - Risk Factors Known Risk Factors: Yes: Age, Gender, Physical Inactivity, Smoking (former) Vital Signs: Vital Signs Temperature 97.9 F 06/08/19 13:12 Pulse Rate 102 H 06/08/19 13:12 Respiratory Rate 22 H 06/08/19 13:12 Blood Pressure 112/72 06/08/19 13:12 O2 Sat by Pulse Oximetry (%) 97 06/08/19 13:12 Constitutional: Yes: Calm, Thin Eyes: Yes: WNL HENT: Yes: WNL Neck: Yes: WNL Respiratory: Yes: Diminished, Hyperresonant, Poor Air Entry, SOB, Tachypnea Gastrointestinal: Yes: Soft Renal/: No: Anuria Cardiovascular: Yes: Tachycardia JVD: No Carotid Bruit: No PMI: Non-Displaced Heart Sounds: Yes: S1 (varies in intensity), S2 Murmur: Yes: Systolic Murmur, Grade 2 Musculoskeletal: Yes: Muscle Weakness Extremities: Yes: Cool Edema: No Neurological: Yes: Alert, Weakness Psychiatric: Yes: Alert, Other - Other Data Labs, Other Data: CBC, BMP 06/08/19 05:40 06/08/19 05:40 INR, PTT INR 1.20 (0.83-1.09) H 06/08/19 01:30 Echo: Report Reviewed Ejection Fraction %: LVEF > or = 40 % Imaging - Results Cat Scan: Image Reviewed EKG: Image Reviewed Problem List - Problems (1) Pleural effusion Code(s): J90 - PLEURAL EFFUSION, NOT ELSEWHERE CLASSIFIED (2) Lung cancer Assessment/Plan: lung CA with mets to the brain. CT chest: collapsed right lung, with pleural effusion of the entire right hemithorax. Large masses (right lung; upper vertebrae) SVC occluded. No PE. As noted by ship purser: plan for drainage. Code(s): C34.90 - MALIGNANT NEOPLASM OF UNSP PART OF UNSP BRONCHUS OR LUNG (3) Afib Assessment/Plan: On metoprolol ER; still with periods of AF with RVR. On diltiazem; increase PO dose as tolerated and required (rapid HR responded well this afternoon to dilitiazem IVP). F/u all electrolytes, TSH. PO anticoagulant held in anticipation of pleural drainage. Code(s): I48.91 - UNSPECIFIED ATRIAL FIBRILLATION Qualifiers: Atrial fibrillation type: persistent (4) Anemia Code(s): D64.9 - ANEMIA, UNSPECIFIED Qualifiers: Anemia type: unspecified type Qualified Code(s): D64.9 - Anemia, unspecified (5) CAD (coronary artery disease) Code(s): I25.10 - ATHSCL HEART DISEASE OF [place] CORONARY ARTERY W/O ANG PCTRS (6) HTN (hypertension) Code(s): I10 - ESSENTIAL (PRIMARY) HYPERTENSION Qualifiers: Hypertension type: essential hypertension Qualified Code(s): I10 - Essential (primary) hypertension (7) Schizophrenia Code(s): F20.9 - SCHIZOPHRENIA, UNSPECIFIED
--- NOTE | 2019-06-08 18:16 | PN ---
Progress Note, Physician History of Present Illness: Reports that SOB is improving. Has mild cough. - Current Medication List Current Medications: Active Medications Acetaminophen (Tylenol -) 650 mg PO Q6H PRN PRN Reason: PAIN LEVEL 1-5 Albuterol Sulfate (Ventolin 0.083% Nebulizer Soln -) 1 amp NEB RQID PRN PRN Reason: SHORT OF BREATH/WHEEZING Aripiprazole (Abilify) 5 mg PO DAILY [facility] Last Admin: 06/08/19 10:41 Dose: 5 mg Calcium Carbonate (Os-Advey 500mg -) 500 mg PO DAILY [facility] Last Admin: 06/08/19 10:41 Dose: 500 mg Cholecalciferol (Vitamin D3 -) 2,000 unit PO DAILY [facility] Last Admin: 06/08/19 10:41 Dose: 2,000 unit Diltiazem HCl (Cardizem -) 30 mg PO TID [facility] Last Admin: 06/08/19 14:15 Dose: 30 mg Enoxaparin Sodium (Lovenox -) 80 mg SQ Q12H [facility] Last Admin: 06/08/19 08:29 Dose: 80 mg Sodium Chloride (Normal Saline -) 1,000 mls @ 75 mls/hr IV ASDIR [facility] Last Admin: 06/08/19 00:47 Dose: 75 mls/hr Insulin Aspart (Novolog Vial Sliding Scale -) 1 vial SQ ACHS [facility]; Protocol Last Admin: 06/08/19 16:54 Dose: Not Given Metoprolol Succinate (Toprol Xl -) 100 mg PO BID [facility] Last Admin: 06/07/19 22:22 Dose: Not Given - Objective Vital Signs: Vital Signs Temperature 97.9 F 06/08/19 13:12 Pulse Rate 146 H 06/08/19 18:00 Respiratory Rate 26 H 06/08/19 18:00 Blood Pressure 111/79 06/08/19 18:00 O2 Sat by Pulse Oximetry (%) 97 06/08/19 13:12 Constitutional: Yes: No Distress, Calm Eyes: Yes: Conjunctiva Clear Cardiovascular: Yes: Regular Rate and Rhythm Respiratory: Yes: Regular, Diminished Edema: No Labs: CBC, BMP 06/08/19 05:40 06/08/19 05:40 INR, PTT INR 1.20 (0.83-1.09) H 06/08/19 01:30 Assessment/Plan 68M with HTN, Afib, CAD, DM, HLD schizophrenia, and recently diagnosed poorly differentiated metastatic carcinoma of lung (has not started treatment) presents with sudden onset of SOB. CTA with right lung collapse and large right pleural effusion. No evidence of PE. Appreciate pulmonary evaluation -- planned for drainage
[2019-06-08 19:19] LABS: MAGNESIUM 2.4 mg/dL (1.8-2.4)
[2019-06-08] MEDS ORDERED: PT OWN MED DRAWER 7, Y5N ONE (21:05)
[2019-06-09] MEDS: dilTIAZem HCL 30 MG TABLET (FP) PO SCH ×4 (00:04→22:07)
[2019-06-09] MEDS ORDERED: VANCOMYCIN 1 GRAM (PRE-DOCKED) 1,000 MG/250 ML BAG IVPB SCH (00:30)
[2019-06-09] MEDS ORDERED: dilTIAZem HCL 50 MG/10 ML - 10 ML VIAL IVPUSH ONE ×2 (03:33→04:01)
[2019-06-09] MEDS ORDERED: METOPROLOL TARTRATE 5 MG/5 ML VIAL IVPUSH ONE ×2 (04:12→04:30)
[2019-06-09] MEDS ORDERED: DILTIAZEM INJECTION 125 MG in SODIUM CHLORIDE 100 ML IVPB SCH (04:15)
[2019-06-09] MEDS ORDERED: FUROSEMIDE 40 MG/4 ML INJECTABLE VIAL IVPUSH ONE ×3 (04:34→20:41)
[2019-06-09] MEDS: SODIUM CHLORIDE 1,000 ML IV SCH (04:49)
[2019-06-09] MEDS: AMIODARONE IN DEXTROSE,ISO-OSM 360 MG/200 ML BAG IVPB SCH ×2 (05:50→15:35)
[2019-06-09] MEDS ORDERED: SODIUM CHLORIDE 1,000 ML IV SCH (05:59)
[2019-06-09] MEDS ORDERED: ALBUTEROL SO4 0.083% IH SOL 2.5 MG/3 ML VIAL.NEB. NEB PRN (05:59)
[2019-06-09] MEDS ORDERED: ACETAMINOPHEN 325 MG TABLET (FP) PO PRN (05:59)
--- NOTE | 2019-06-09 06:17 | PN ---
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 Patient was complaining of SOB , visibly SOB and diaphoretic, and was subsequently found to have AFib with RVR. Vitals: Pulse Irregular, ranging between 160s -180s B/P: 154/122 O2: 85% on RA Exam: - AOx3 - Lungs: Coarse crackles B/L - Heart: RRR No murmurs A&P: #Afib RVR: - Cardizem 20 pushed, HR dropped to 170s - Lopressor 5mg given, B/P 128/64 with HR in 140 after administration - 2nd Lopressor 5mg given, B/P 123/86, HR in 140s - Placed on Amiodarone drip, transferred to ICU Tele p negative #Hypoxia - Started on NRB mask - Lasix 40,g IV given - CXR ordered after Lasix given - Chest tube placed by BRONWYN Gomez for Rt sided large pleural effusion
--- NOTE | 2019-06-09 06:26 | CONSULT ---
Consult Consult Specialty:: PULM/CCM Referred by:: Dr. April Juarez Reason for Consultation:: RESP FAIL - History of Present Illness Chief Complaint: SOB History of Present Illness: Mr. Theodore is a 68 y/o man, SNF resident, w/ HTN, HLD, A-Fib on AC, DM, CAD, Schizo, & non small cell lung CA w/ brain and T-spine mets (Of note, tumor exhibits PDL-1 expression). Patient was treated w/ XRT to spine and rul mass. The pt was admitted on 06/[address] CHEST reveals massive right sided pleural effusion with compressive atelectasis. Initially, pt reports marked improved breathing on O2 & so a plan was made for Chest Tube in IR later today. However --> Pt admitted now to ICU for worsening SOB. - History Source History Provided By: Medical Record Limitations to Obtaining History: Clinical Condition - Past Medical History Cardio/Vascular: Yes: AFIB, HTN, Hyperlipdemia Pulmonary: Yes: Cancer, Other (pleural effusion) Gastrointestinal: No: Ascites Hepatobiliary: No: Cirrhosis Renal/: No: Renal Failure Psych: Yes: Schizophrenia Endocrine: Yes: Diabetes Mellitus - Alcohol/Substance Use Hx Alcohol Use: No History of Substance Use: reports: None - Smoking History Smoking history: Former smoker Have you smoked in the past 12 months: No Aproximately how many cigarettes per day: 75 If you are a former smoker, when did you quit?: 3 months ago - Social History Usual Living Arrangement: [facility] ADL: Support 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 Travel: No Home Medications - Allergies Allergies/Adverse Reactions: Allergies Allergy/AdvReac Type Severity Reaction Status Date / Time chlorpromazine Allergy Verified 06/06/19 19:43 [From Thorazine] torazine Allergy Uncoded 06/06/19 19:43 - Home Medications Home Medications: Ambulatory Orders Acetaminophen [Tylenol] 650 mg PO Q6H PRN 09/05/18 Aripiprazole [Abilify -] 5 mg PO DAILY 09/05/18 Rivaroxaban [Xarelto -] 20 mg PO DAILY@1800 #30 tablet 01/16/19 Diltiazem [Cardizem -] 30 mg PO Q8H tablet 02/19/19 Lisinopril [Prinivil] 2.5 mg PO DAILY tablet 02/19/19 Metoprolol Succinate 100 mg PO BID #30 tab.er.24h 02/19/19 Ascorbate Calcium [Vitamin C] 500 mg PO DAILY 03/07/19 Calcium Carbonate/Vitamin D3 [Oystercal-D 500 mg-400 Unit Tb] 1 each PO DAILY Ferrous Sulfate 325 mg PO DAILY 03/07/19 Calcium (Oyster Shell) [Os-Davey 500MG -] 500 mg PO DAILY tablet 03/19/19 Insulin Sliding Scale [Novolog Vial Sliding Scale -] 1 vial SQ ACHS units 03/19 Aa/[place] Julianne,[place]/Arg/C/Zn/Cu [Lps Critical Care Liquid] 30 ml PO DAILY Cholecalciferol (Vitamin D3) [Vitamin D -] 2,000 unit PO DAILY 06/07/19 Furosemide [Lasix] 40 mg PO DAILY 06/07/19 Omeprazole 20 mg PO DAILY 06/07/19 Zinc Oxide 20% Topical Oint 454 gm NR DAILY 06/07/19 Family Medical History Family History: Unable to Obtain (Pt in extremis) Review of Systems Unable to obtain ROS, reason: Pt in extremis Physical Exam Vital Signs: Vital Signs Temperature 98.3 F 06/09/19 02:00 Pulse Rate 140 H 06/09/19 04:30 Respiratory Rate 18 06/09/19 02:00 Blood Pressure 123/68 06/09/19 04:30 O2 Sat by Pulse Oximetry (%) 96 06/09/19 05:40 Intake & Output 06/06/19 06/07/19 06/08/19 06/09/19 23:59 23:59 23:59 23:59 Intake Total 3465 1000 Output Total 450 3050 Balance 3015 -2050 Weight 78.018 kg 76.657 kg 83.098 kg Constitutional: Yes: Well Nourished, Diaphoresis, Severe Distress Eyes: Yes: WNL, Conjunctiva Clear, EOM Intact HENT: Yes: WNL, Atraumatic, Normocephalic Neck: Yes: WNL, Supple, Trachea Midline Cardiovascular: Yes: Tachycardia, Pulse Irregular Respiratory: Yes: Accessory Muscle Use, Diminished, Rales, SOB, SOB on Exertion , Tachypnea Gastrointestinal: Yes: WNL, Normal Bowel Sounds, Soft ...Rectal Exam: Yes: Deferred Renal/: Yes: WNL Breast(s): Yes: WNL Musculoskeletal: Yes: WNL Extremities: Yes: WNL Edema: No Peripheral Pulses WNL: Yes Neurological: Yes: Unresponsive ...Motor Strength: WNL Psychiatric: Yes: Other (UNCON/UNRESP) Labs: CBC, BMP 06/08/19 05:40 06/08/19 05:40 INR, PTT INR 1.20 (0.83-1.09) H 06/08/19 01:30 ABG Results ABG pH 7.30 (7.35-7.45) L 06/09/19 06:50 ABG pCO2 at Pt Temp 59.4 mmHg (35-45) H 06/09/19 06:50 ABG pO2 at Pt Temp 57.5 mmHg (80-100) L 06/09/19 06:50 ABG HCO3 28.0 mmol/L (22-27) H 06/09/19 06:50 ABG O2 Sat (Measured) 84.5 % (95-98) L 06/09/19 06:50 ABG O2 Content 14.3 % vol 06/09/19 06:50 ABG Base Excess 0.8 meq/l (-2-2) 06/09/19 06:50 Imaging - Results Chest X-ray: Report Reviewed (06/09: Single view of the chest was submitted. Since the prior study of 06/06/2019 again noted is a total opacification of the right hemithorax and this is related to the patient's known right lung tumor. The opacification includes collapse with large pleural effusion. A CT scan also showed bone destruction which is difficult to see on this study. Please note the left lung is relatively well aerated with slight prominence of the markings. Correlation recommended.) Cat Scan: Report Reviewed (CT CHEST 06/06: See discussion above There is no evidence of a pulmonary embolus in the main pulmonary artery and its proximal bifurcations, bilaterally. Occluded superior vena cava. Occluded distal portion of the azygos vein. Large right lung mass extending to the mediastinum and crossing the midline anterior to the trachea. Large right paravertebral mass with bone destruction involving T3, T4 and inferior aspect of T2 vertebral body encroaching into the right foramen at T2-T3 and T3-T4 and likely partially extending into the right T4-T5 foramen compressing right T2 and T3 nerve roots and likely impinging right C4 nerve root) Assessment/Plan ASSESS: -HYPOXIC RESP FAIL 2/2 R Pleural effusion m/l malignant -Metastatic Non small cell lung CA -HTN -HLD -DM -A-Fib -CAD -SCHIZO PLAN: -NIVPPV -FiO2 for an SpO2 > 92% -Bronchodilators -R Chest Tube drain off effusion --> then wean bi-Pap off -Hold all anti-HTN meds -Rate Control -Cont AC -FS's -SSI -Strict I's & O's -Trend BUN/Cr -Replete e-lytes -Cont Schizo Meds -SCDs -GI ppx -Pall Care Consult --> Overall poor prognosis Once back to baseline Resp Status can return to Med Surg for Continued Oncology care. Thank you for this interesting consult. VIJAY [facility]QU[facility] ICU PULM/CCM [id number]
--- NOTE | 2019-06-09 06:31 | PROC ---
Chest Tube Insertion Consent on Chart: No (EMERGENT) Chest tube #1 Indication: Pleural Effusion Chest Tube Location: Right Lateral Anesthesia: 1% Lidocaine Size (Fr.): 14 Sterile Technique: Yes Tube Sutured to Skin: Yes Vaseline gauze dressing: No Chest Tube Collection System: Pleur-Evac Suction: Yes Drainage, Color/Appearance: Serous, Cloudy Amount (ml): 2,500 Remarks: ~ 70cc was sent to the lab for the usual studies and Cytology. EBL < 5cc. Pluerevac demonstrated no leak. Pt tolerated the procedure well. I have no complications to report.
[2019-06-09] MEDS ORDERED: AMIODARONE HCL 150 MG/3 ML VIAL IVPUSH ONE ×2 (06:35→07:11)
[2019-06-09] MEDS ORDERED: LACTATED RINGERS SOLUTION 1,000 ML/1,000 ML INFUS.BAG IV STA (06:36)
[2019-06-09 07:07] LABS: ARTERIAL BLD GAS O2 SATURATION 84.5 % (95-98); ARTERIAL BLOOD GAS BASE EXCESS 0.8 meq/l (-2-2); ARTERIAL BLOOD GAS PCO2 59.4 mmHg (35-45); ARTERIAL BLOOD GAS PO2 57.5 mmHg (80-100)
[2019-06-09] MEDS: INSULIN SLIDING SCALE (NOVOLOG) 1 VIAL SQ SCH ×4 (07:07→22:40)
[2019-06-09] MEDS ORDERED: AMIODARONE HCL 150 MG/3 ML VIAL ONE (07:14)
[2019-06-09 07:15] LABS: ALLENS TEST POSITIVE
--- NOTE | 2019-06-09 08:46 | PN ---
Progress Note, Physician - Current Medication List Current Medications: Active Medications Acetaminophen (Tylenol -) 650 mg PO Q6H PRN PRN Reason: PAIN LEVEL 1-5 Albuterol Sulfate (Ventolin 0.083% Nebulizer Soln -) 1 amp NEB RQID PRN PRN Reason: SHORT OF BREATH/WHEEZING Aripiprazole (Abilify) 5 mg PO DAILY [facility] Calcium Carbonate (Os-Davey 500mg -) 500 mg PO DAILY [facility] Cholecalciferol (Vitamin D3 -) 2,000 unit PO DAILY [facility] Diltiazem HCl (Cardizem -) 30 mg PO TID [facility] Last Admin: 06/09/19 06:54 Dose: Not Given Enoxaparin Sodium (Lovenox -) 80 mg SQ BID [facility] Vancomycin HCl (Vancomycin (Pre-Docked)) 1,000 mg in 250 mls @ 166.667 mls/hr IVPB ONCE [facility]; Protocol Stop: 06/10/19 00:29 Last Admin: 06/09/19 00:28 Dose: 166.667 mls/hr Diltiazem HCl 125 mg/ Sodium (Chloride) 125 mls @ 5 mls/hr IVPB TITR [facility]; Protocol Amiodarone HCl/Dextrose (Nexterone 360 Mg/200 Ml Bag) 360 mg in 200 mls @ 16.667 mls/hr IVPB ASDIR [facility]; Protocol Last Admin: 06/09/19 05:50 Dose: 16.667 mls/hr Sodium Chloride (Normal Saline -) 1,000 mls @ 75 mls/hr IV ASDIR [facility] Last Admin: 06/09/19 06:28 Dose: 75 mls/hr Insulin Aspart (Novolog Vial Sliding Scale -) 1 vial SQ ACHS [facility]; Protocol Last Admin: 06/09/19 07:07 Dose: 2 units - Objective Vital Signs: Vital Signs Temperature 98.7 F 06/09/19 06:00 Pulse Rate 157 H 06/09/19 06:00 Respiratory Rate 32 H 06/09/19 06:00 Blood Pressure 106/48 L 06/09/19 06:00 O2 Sat by Pulse Oximetry (%) 99 06/09/19 08:29 Labs: CBC, BMP 06/08/19 05:40 06/08/19 05:40 INR, PTT INR 1.20 (0.83-1.09) H 06/08/19 01:30 Assessment/Plan - Problems (1) SOB (shortness of breath) Assessment/Plan: -CTA Chest:with right lung collapse and large right pleural effusion. No evidence of PE. 5 cm RUL mass with hilar and mediastinal adenopathy, left adrenal enlargement, T3 vertebral body metastases, paravertebral mass, foraminal obstruction by the mass at T2-3, displacement of the cord, left cerebellar 0.7cm and rt. occipital metastasis. -Chest Tube placed -Pulmonary on board -O2 to keep SpO2>90% -Bronchodilators -IR to place chest drain -Xarelto on hold -Lovenox 80 mg SQ BID for dvt ppx for afib Problems reviewed: Yes Code(s): R06.02 - SHORTNESS OF BREATH (2) Collapse of right lung Problems reviewed: Yes Code(s): J98.11 - ATELECTASIS (3) Pleural effusion Problems reviewed: Yes -Chest Tube placed--over 2500 cc of fluid drained -Pulmonary on board Code(s): J90 - PLEURAL EFFUSION, NOT ELSEWHERE CLASSIFIED (4) Lung cancer Assessment/Plan: -Oncology consult -Overall poor prognosis Problems reviewed: Yes Code(s): C34.90 - MALIGNANT NEOPLASM OF UNSP PART OF UNSP BRONCHUS OR LUNG (5) Metastatic disease Problems reviewed: Yes Code(s): C79.9 - SECONDARY MALIGNANT NEOPLASM OF UNSPECIFIED SITE (6) Diabetes Assessment/Plan: -recheck A1c -BGM AC HS Problems reviewed: Yes Code(s): E11.9 - TYPE 2 DIABETES MELLITUS WITHOUT COMPLICATIONS (7) Schizophrenia Assessment/Plan: -Continue Abilify Problems reviewed: Yes Code(s): F20.9 - SCHIZOPHRENIA, UNSPECIFIED (8) Afib Assessment/Plan: -Rapid now on drip -chronic -cardiology consult -Lovenox 80 mg SQ BID for afib Problems reviewed: Yes Code(s): I48.91 - UNSPECIFIED ATRIAL FIBRILLATION Qualifiers: Atrial fibrillation type: persistent (9) Hypotension Assessment/Plan: -Hold Lisinopril -Cardiology consult Problems reviewed: Yes Code(s): I95.9 - HYPOTENSION, UNSPECIFIED
--- NOTE | 2019-06-09 09:48 | PN ---
Progress Note, Physician History of Present Illness: Maintained on NIPPV, afib with RVR on amio gtt. Chest tube in place. - Current Medication List Current Medications: Active Medications Acetaminophen (Tylenol -) 650 mg PO Q6H PRN PRN Reason: PAIN LEVEL 1-5 Albuterol Sulfate (Ventolin 0.083% Nebulizer Soln -) 1 amp NEB RQID PRN PRN Reason: SHORT OF BREATH/WHEEZING Aripiprazole (Abilify) 5 mg PO DAILY [facility] Calcium Carbonate (Os-Davey 500mg -) 500 mg PO DAILY [facility] Cholecalciferol (Vitamin D3 -) 2,000 unit PO DAILY [facility] Diltiazem HCl (Cardizem -) 30 mg PO TID [facility] Last Admin: 06/09/19 06:54 Dose: Not Given Enoxaparin Sodium (Lovenox -) 80 mg SQ BID [facility] Vancomycin HCl (Vancomycin (Pre-Docked)) 1,000 mg in 250 mls @ 166.667 mls/hr IVPB ONCE [facility]; Protocol Stop: 06/10/19 00:29 Last Admin: 06/09/19 00:28 Dose: 166.667 mls/hr Diltiazem HCl 125 mg/ Sodium (Chloride) 125 mls @ 5 mls/hr IVPB TITR [facility]; Protocol Amiodarone HCl/Dextrose (Nexterone 360 Mg/200 Ml Bag) 360 mg in 200 mls @ 16.667 mls/hr IVPB [facility]; Protocol Last Admin: 06/09/19 05:50 Dose: 16.667 mls/hr Sodium Chloride (Normal Saline -) 1,000 mls @ 75 mls/hr IV ASDIR [facility] Last Admin: 06/09/19 06:28 Dose: 75 mls/hr Insulin Aspart (Novolog Vial Sliding Scale -) 1 vial SQ ACHS [facility]; Protocol Last Admin: 06/09/19 07:07 Dose: 2 units - Objective Vital Signs: Vital Signs Temperature 98.7 F 06/09/19 06:00 Pulse Rate 157 H 06/09/19 06:00 Respiratory Rate 32 H 06/09/19 06:00 Blood Pressure 106/48 L 06/09/19 06:00 O2 Sat by Pulse Oximetry (%) 99 06/09/19 08:29 Constitutional: Yes: No Distress, Calm Neck: Yes: Supple Cardiovascular: Yes: Tachycardia, Pulse Irregular Respiratory: Yes: On BiPap Gastrointestinal: Yes: Soft, Hypoactive Bowel Sounds Edema: No Labs: CBC, BMP 06/08/19 05:40 06/08/19 05:40 INR, PTT INR 1.20 (0.83-1.09) H 06/08/19 01:30 - ....Imaging Chest X-ray: Report Reviewed (Right chest tube in place with right opacification ) EKG: Report Reviewed (Tele: Afib with RVR) Assessment/Plan - Problems (1) Pleural effusion Code(s): J90 - PLEURAL EFFUSION, NOT ELSEWHERE CLASSIFIED (2) Lung cancer Assessment/Plan: lung CA with mets to the brain. CT chest: collapsed right lung, with pleural effusion of the entire right hemithorax post chest tube, likely malignant r/o post-obstructive PNA Large masses (right lung; upper vertebrae) SVC occluded. No PE. NIPPV, O2 as needed Code(s): C34.90 - MALIGNANT NEOPLASM OF UNSP PART OF UNSP BRONCHUS OR LUNG (3) Afib Assessment/Plan: Amio gtt for rate control, On Lovenox 80 bid Code(s): I48.91 - UNSPECIFIED ATRIAL FIBRILLATION Qualifiers: Atrial fibrillation type: persistent (4) Anemia Code(s): D64.9 - ANEMIA, UNSPECIFIED Qualifiers: Anemia type: unspecified type Qualified Code(s): D64.9 - Anemia, unspecified (5) CAD (coronary artery disease) Code(s): I25.10 - ATHSCL HEART DISEASE OF [place] CORONARY ARTERY W/O ANG PCTRS (6) Hypotension wean Levophed gtt for MAP>65 mmHg Code(s): I95.9 - HYPOTENSION, UNSPECIFIED (7) Schizophrenia Code(s): F20.9 - SCHIZOPHRENIA, UNSPECIFIED
[2019-06-09] MEDS: ENOXAPARIN NA (PORCINE) 80 MG/0.8 ML DISP.SYRIN SQ SCH ×2 (10:14→22:30)
[2019-06-09] MEDS: ARIPiprazole 5 MG TABLET PO SCH (10:20)
[2019-06-09] MEDS: CHOLECALCIFEROL (VIT D3) 1,000 UNIT (25 MCG) TABLET PO SCH (10:20)
[2019-06-09] MEDS ORDERED: LACTATED RINGERS SOLUTION 1000 ML INFUS.BAG IV ONE ×2 (10:32→11:54)
[2019-06-09] MEDS ORDERED: LACTATED RINGERS SOLUTION 1,000 ML/1,000 ML INFUS.BAG IV SCH (10:45)
[2019-06-09] MEDS ORDERED: LACTATED RINGERS SOLUTION 1,000 ML/1,000 ML INFUS.BAG IV ONE (11:48)
[2019-06-09 11:58] LABS: BASO % 0.6 % (0-2.0); HEMATOCRIT 35.8 % (35.4-49); LYMPH % 1.3 % (8-40); MCH 26.1 pg (25.7-33.7); MCHC 30.7 g/dl (32.0-35.9); MEAN CELL VOLUME 85.2 fl (80-96); MONO % 5.5 % (3.8-10.2); NEUT % 92.6 % (42.8-82.8); PLATELET COUNT 291 K/MM3 (134-434); RBC 4.21 M/mm3 (4.00-5.60); WHITE BLOOD COUNT 19.7 K/mm3 (4.0-10.0)
[2019-06-09 12:11] LABS: ALBUMIN 2.2 g/dl (3.4-5.0); BILIRUBIN,TOTAL 0.5 mg/dL (0.2-1); BLOOD UREA NITROGEN 17.9 mg/dL (7-18); CREATININE 0.9 mg/dL (0.55-1.3); POTASSIUM 4.2 mmol/L (3.5-5.1); TOT PROT 5.8 g/dl (6.4-8.2)
--- NOTE | 2019-06-09 12:35 | PN ---
Teaching Attending Note Name of Resident: Sina Cavazos ATTENDING PHYSICIAN STATEMENT I saw and evaluated the patient. I reviewed the resident's note and discussed the case with the resident. I agree with the resident's findings and plan as documented. SUBJECTIVE: Patient seen and examined in the ICU. Awake but confused on NIPPV support. CT inserted early this AM. Marginal hemodynamics responding to IVF. Intake & Output 06/06/19 06/07/19 06/08/19 06/09/19 23:59 23:59 23:59 23:59 Intake Total 3465 1000 Output Total 450 3050 Balance 3015 -2050 Weight 172 lb 169 lb 183 lb 3.2 oz Last Vital Signs Temp Pulse Resp BP Pulse Ox 98.7 F 157 H 32 H 106/48 L 99 06/09/19 06:00 06/09/19 06:00 06/09/19 06:00 06/09/19 06:00 06/09/19 11:49 Active Medications Acetaminophen (Tylenol -) 650 mg PO Q6H PRN PRN Reason: PAIN LEVEL 1-5 Albuterol Sulfate (Ventolin 0.083% Nebulizer Soln -) 1 amp NEB RQID PRN PRN Reason: SHORT OF BREATH/WHEEZING Aripiprazole (Abilify) 5 mg PO DAILY [facility] Last Admin: 06/09/19 10:20 Dose: 5 mg Calcium Carbonate (Os-Davey 500mg -) 500 mg PO DAILY [facility] Cholecalciferol (Vitamin D3 -) 2,000 unit PO DAILY [facility] Last Admin: 06/09/19 10:20 Dose: 2,000 unit Diltiazem HCl (Cardizem -) 30 mg PO TID [facility] Last Admin: 06/09/19 06:54 Dose: Not Given Enoxaparin Sodium (Lovenox -) 80 mg SQ BID [facility] Last Admin: 06/09/19 10:14 Dose: 80 mg Vancomycin HCl (Vancomycin (Pre-Docked)) 1,000 mg in 250 mls @ 166.667 mls/hr IVPB ONCE JONATHON; Protocol Stop: 06/10/19 00:29 Last Admin: 06/09/19 00:28 Dose: 166.667 mls/hr Diltiazem HCl 125 mg/ Sodium (Chloride) 125 mls @ 5 mls/hr IVPB TITR [facility]; Protocol Amiodarone HCl/Dextrose (Nexterone 360 Mg/200 Ml Bag) 360 mg in 200 mls @ 16.667 mls/hr IVPB ASDIR JONATHON; Protocol Last Admin: 06/09/19 05:50 Dose: 16.667 mls/hr Sodium Chloride (Normal Saline -) 1,000 mls @ 75 mls/hr IV ASDIR JONATHON Last Admin: 06/09/19 06:28 Dose: 75 mls/hr Insulin Aspart (Novolog Vial Sliding Scale -) 1 vial SQ ACHS JONATHON; Protocol Last Admin: 06/09/19 11:56 Dose: 4 units Constitutional: Yes: Tachypneic on NIPPV support, confused Eyes: Yes: WNL, Conjunctiva Clear, EOM Intact HENT: Yes: WNL, Atraumatic, Normocephalic Neck: Yes: WNL, Supple, Trachea Midline Cardiovascular: Yes: Tachycardia, Pulse Irregular Respiratory: Yes: Accessory Muscle Use, Diminished, Rales, SOB, SOB on Exertion , Tachypnea, right CT Gastrointestinal: Yes: WNL, Normal Bowel Sounds, Soft ...Rectal Exam: Yes: Deferred Renal/: Yes: WNL Breast(s): Yes: WNL Musculoskeletal: Yes: WNL Extremities: Yes: WNL Edema: No Peripheral Pulses WNL: Yes Neurological: Yes: Lethargic, confused ...Motor Strength: WNL Psychiatric: Yes: Confused Labs: Laboratory Results - last 24 hr 06/08/19 06/08/19 06/08/19 05:40 05:40 16:54 WBC RBC Hgb Hct MCV MCH MCHC RDW Plt Count MPV Absolute Neuts (auto) Neutrophils % Lymphocytes % Monocytes % Eosinophils % Basophils % Nucleated RBC % Anticoagulation Therapy Puncture Site ABG pH ABG pCO2 at Pt Temp ABG pO2 at Pt Temp ABG HCO3 ABG O2 Sat (Measured) ABG O2 Content ABG Base Excess Terrence Test O2 Delivery Device Oxygen Flow Rate Vent Mode Vent Rate Mechanical Rate Pressure Support Vent Sodium 142 Potassium 4.3 Chloride 107 Carbon Dioxide 32 Anion Gap 3 L BUN 18.6 H Creatinine 0.6 Est GFR (CKD-EPI)AfAm 121.43 Est GFR (CKD-EPI)NonAf 104.77 POC Glucometer 166 Random Glucose 124 H Hemoglobin A1c % 7.7 H Calcium 8.0 L Magnesium 2.4 Iron 23 L TIBC 238 L Iron Saturation 9 L Unsaturated IBC 215 Ferritin 64.1 Total Bilirubin 0.3 AST 7 L ALT 10 L Alkaline Phosphatase 80 Total Protein 6.0 L Albumin 2.3 L TSH 3.44 D 06/08/19 06/09/19 06/09/19 23:57 04:21 06:50 WBC RBC Hgb Hct MCV MCH MCHC RDW Plt Count MPV Absolute Neuts (auto) Neutrophils % Lymphocytes % Monocytes % Eosinophils % Basophils % Nucleated RBC % Anticoagulation Therapy No Result Required. Puncture Site Right radial ABG pH 7.30 L ABG pCO2 at Pt Temp 59.4 H ABG pO2 at Pt Temp 57.5 L ABG HCO3 28.0 H ABG O2 Sat (Measured) 84.5 L ABG O2 Content 14.3 ABG Base Excess 0.8 Terrence Test Positive O2 Delivery Device Nrb mask Oxygen Flow Rate 100% Vent Mode No Result Required. Vent Rate No Result Required. Mechanical Rate No Result Required. Pressure Support Vent No Result Required. Sodium Potassium Chloride Carbon Dioxide Anion Gap BUN Creatinine Est GFR (CKD-EPI)AfAm Est GFR (CKD-EPI)NonAf POC Glucometer 139 267 Random Glucose Hemoglobin A1c % Calcium Magnesium Iron TIBC Iron Saturation Unsaturated IBC Ferritin Total Bilirubin AST ALT Alkaline Phosphatase Total Protein Albumin TSH 06/09/19 06/09/19 06/09/19 07:05 10:10 10:10 WBC 19.7 H RBC 4.21 Hgb 11.0 L Hct 35.8 MCV 85.2 MCH 26.1 MCHC 30.7 L RDW 22.0 H Plt Count 291 MPV 8.0 Absolute Neuts (auto) 18.2 H Neutrophils % 92.6 H Lymphocytes % 1.3 L D Monocytes % 5.5 Eosinophils % 0.0 D Basophils % 0.6 Nucleated RBC % 0 Anticoagulation Therapy Puncture Site ABG pH ABG pCO2 at Pt Temp ABG pO2 at Pt Temp ABG HCO3 ABG O2 Sat (Measured) ABG O2 Content ABG Base Excess Terrence Test O2 Delivery Device Oxygen Flow Rate Vent Mode Vent Rate Mechanical Rate Pressure Support Vent Sodium 138 Potassium 4.2 Chloride 102 Carbon Dioxide 27 Anion Gap 9 BUN 17.9 Creatinine 0.9 Est GFR (CKD-EPI)AfAm 102.79 Est GFR (CKD-EPI)NonAf 88.69 POC Glucometer 233 Random Glucose 321 H Hemoglobin A1c % Calcium 8.0 L Magnesium Iron TIBC Iron Saturation Unsaturated IBC Ferritin Total Bilirubin 0.5 AST 16 ALT 15 Alkaline Phosphatase 104 Total Protein 5.8 L Albumin 2.2 L TSH 06/09/19 11:44 WBC RBC Hgb Hct MCV MCH MCHC RDW Plt Count MPV Absolute Neuts (auto) Neutrophils % Lymphocytes % Monocytes % Eosinophils % Basophils % Nucleated RBC % Anticoagulation Therapy Puncture Site ABG pH ABG pCO2 at Pt Temp ABG pO2 at Pt Temp ABG HCO3 ABG O2 Sat (Measured) ABG O2 Content ABG Base Excess Terrence Test O2 Delivery Device Oxygen Flow Rate Vent Mode Vent Rate Mechanical Rate Pressure Support Vent Sodium Potassium Chloride Carbon Dioxide Anion Gap BUN Creatinine Est GFR (CKD-EPI)AfAm Est GFR (CKD-EPI)NonAf POC Glucometer 293 Random Glucose Hemoglobin A1c % Calcium Magnesium Iron TIBC Iron Saturation Unsaturated IBC Ferritin Total Bilirubin AST ALT Alkaline Phosphatase Total Protein Albumin TSH Assessment/Plan -Acute HYPOXIC RESP FAIL 2/2 R Pleural effusion m/l malignant -Metastatic Non small cell lung CA -HTN -HLD -DM -A-Fib -CAD -SCHIZO PLAN: -NIVPPV -Bronchodilators -R Chest Tube drain off effusion -Hold all anti-HTN meds -Rate Control -FS's -SSI -Strict I's & O's -Trend BUN/Cr -Replete e-lytes -SCDs -GI ppx -Pall Care Consult --> Overall poor prognosis Dr Luna
[2019-06-09 12:46] LABS: MAGNESIUM 2.1 mg/dL (1.8-2.4); PHOSPHOROUS 3.8 mg/dL (2.5-4.9)
[2019-06-09] MEDS: CALCIUM (OYSTER SHELL) 500 MG TABLET (FP) PO SCH (14:00)
[2019-06-09 14:03] LABS: ANISOCYTOSIS 1+; MACROCYTOSIS 1+; PLATELET ESTIMATE NORMAL; TARGET CELLS 1+; TEAR DROP CELLS 1+
[2019-06-09] MEDS ORDERED: LORazepam 2 MG/ML SDV VIAL ONE ×2 (14:30→15:00)
--- NOTE | 2019-06-09 14:47 | PN ---
Progress Note (short form) - Note Progress Note: ID CONSULT DICTATED + BC SCN X 1 BOTTLE ? SIGNIFICANCE LEUKOCYTOSIS PROBABLE MALIGNANT EFFUSION ? POST OBSTRUCTIVE PNEUMONIA METASTATIC LUNG CA REPEAT BC EMPIRIC ZOYN FOR POSSIBLE PNEUMONIA
[2019-06-09] MEDS ORDERED: DEXTROSE 5%-WATER - 50 ML IVPB ONE (15:32)
[2019-06-09] MEDS ORDERED: PIPERACILLIN/TAZOBACTAM 3.375 GM VIAL IVPB ONE (15:32)
--- NOTE | 2019-06-09 15:42 | CONS ---
INFECTIOUS DISEASE CONSULTATION DATE OF CONSULTATION: DATE OF DICTATION: 06/09/2019 HISTORY: The patient is a 68-year-old male with a history of metastatic adenocarcinoma of the lung evaluated for positive blood culture. History was obtained from the chart as he cannot give a reliable history. He was recently diagnosed with adenocarcinoma of the lung and had been hospitalized in February and March of 2019. At that time, his course was complicated by a pleural effusion. He is now re-admitted with increasing shortness of breath. His course was complicated by respiratory distress. He was found to be in rapid atrial fibrillation and was transferred to the intensive care unit. CAT scan of the chest showed a large left pleural effusion with left lung mass causing superior vena cava occlusion. There was also evidence of vertebral metastases. His course was further complicated by elevated white blood cell count. Blood cultures were obtained and are positive 1 bottle coagulase-negative staph. He is awake and responsive, however, cannot give a reliable history. No reports of febrile illness or shaking chills. He has had a history of diabetic foot infections in the past; however, no active infections. No known skin infections or decubitus ulcers. He does not have a port. No history of prosthetic intravascular devices or joint replacements. PAST MEDICAL HISTORY: Positive for recently diagnosed metastatic carcinoma of the lung. According to the notes, he has bone and brain metastases. History of COPD, diabetes mellitus, coronary artery disease, atrial fibrillation, gastroesophageal reflux, schizophrenia. ALLERGIES: CHLORPROMAZINE. MEDICATIONS: Include Tylenol, amiodarone, Abilify, diltiazem, Lovenox, Lasix, metoprolol. SOCIAL HISTORY: He is a former smoker. He is presently living in a senior care facility. SYSTEMS REVIEW: Neurologic: No loss of consciousness, seizure activity, focal weakness. Cardiac: As per HPI. Respiratory: As per HPI. Gastrointestinal: Negative vomiting or diarrhea. Genitourinary: Negative for urinary tract infection. LABORATORY DATA: White count 19.7, 89 neutrophils, 3 bands, 3 lymphocytes, hematocrit 35.8, platelets 291, creatinine 0.9. Liver enzymes normal. Blood cultures, coagulase-negative staph 1 bottle. PHYSICAL EXAMINATION: General: He is awake. He is short of breath at rest. Vital Signs: Temperature 97.8, blood pressure 86/68, pulse 117 irregular, respirations 22 per minute. HEENT: Sclerae anicteric. Heart: Tachycardic. S1, S2. Lungs: Absent breath sounds right lung field. Decreased breath sounds left lung field. Abdomen: Soft, nontender. Extremities: Negative for edema. No foot infection noted. IMPRESSION: 1. Positive blood culture coagulase-negative staphylococcus 1 bottle, unclear significance. 2. Leukocytosis. 3. Probable malignant effusion. 4. Rule out postobstructive pneumonia. 5. Metastatic lung carcinoma. PLAN: Significance of positive blood culture not clear. Probably represents contamination. We will repeat blood cultures, re-dose vancomycin. Would empirically treat for possible postobstructive pneumonia in this patient with large effusion, lung mass, and elevated white blood cell count. Continue ICU monitoring. Prognosis is guarded. Thank you for the kind referral. KESHIA KHOURY M.D. [id number]
[2019-06-09] MEDS ORDERED: LORazepam 2 MG/ML SDV VIAL IVPUSH ONE ×2 (15:45)
[2019-06-09] MEDS: PIPERACILLIN/TAZOB 3.375 GM 3.375 GM in DEXTROSE 5%-WATER - 50 ML IVPB SCH ×2 (15:46→18:18)
[2019-06-09] MEDS ORDERED: VASOPRESSIN 20 UNITS/ML VIAL IV ONE (15:50)
[2019-06-09] MEDS: VASOPRESSIN 50 UNITS in SODIUM CHLORIDE 97.5 ML IVPB SCH (16:00)
--- NOTE | 2019-06-09 16:09 | PN ---
Physical Exam: SUBJECTIVE: Patient seen and examined 3L SS fluid output since right chest tube placed. Tolerating well. HR improved 140s to 110s. Currently on BiPAP and amio drip. OBJECTIVE: Vital Signs Period Temp Pulse Resp BP Sys/Stock Pulse Ox Last 24 Hr 97.6 F-98.7 F 98-157 18-34 78-129/48-85 90-99 GENERAL: The patient is awake; a&ox1 LUNGS: Breath sounds equal, coarse breath sounds throughout with right lung base rales HEART: tachycardic, irregular rhythm, S1, S2 without murmur, rub or gallop. ABDOMEN: Soft, nontender, nondistended, normoactive bowel sounds, no guarding, no rebound, no hepatosplenomegaly, no masses. EXTREMITIES: 2+ pulses, warm, well-perfused, no edema. NEUROLOGICAL: Cranial nerves II through XII grossly intact. Normal speech, gait not observed. PSYCH: Normal mood, normal affect. SKIN: Warm, dry, normal turgor, no rashes or lesions noted Laboratory Results - last 24 hr 06/08/19 06/08/19 06/08/19 05:40 05:40 16:54 WBC RBC Hgb Hct MCV MCH MCHC RDW Plt Count MPV Absolute Neuts (auto) Neutrophils % Neutrophils % (Manual) Band Neutrophils % Lymphocytes % Lymphocytes % (Manual) Monocytes % Monocytes % (Manual) Eosinophils % Eosinophils % (Manual) Basophils % Basophils % (Manual) Myelocytes % (Man) Promyelocytes % (Man) Blast Cells % (Manual) Nucleated RBC % Metamyelocytes Platelet Estimate Polychromasia Poikilocytosis Anisocytosis Macrocytosis Spherocytes Target Cells Tear Drop Cells Anticoagulation Therapy Puncture Site ABG pH ABG pCO2 at Pt Temp ABG pO2 at Pt Temp ABG HCO3 ABG O2 Sat (Measured) ABG O2 Content ABG Base Excess Terrence Test O2 Delivery Device Oxygen Flow Rate Vent Mode Vent Rate Mechanical Rate Pressure Support Vent Sodium 142 Potassium 4.3 Chloride 107 Carbon Dioxide 32 Anion Gap 3 L BUN 18.6 H Creatinine 0.6 Est GFR (CKD-EPI)AfAm 121.43 Est GFR (CKD-EPI)NonAf 104.77 POC Glucometer 166 Random Glucose 124 H Hemoglobin A1c % 7.7 H Calcium 8.0 L Phosphorus Magnesium 2.4 Iron 23 L TIBC 238 L Iron Saturation 9 L Unsaturated IBC 215 Ferritin 64.1 Total Bilirubin 0.3 AST 7 L ALT 10 L Alkaline Phosphatase 80 Total Protein 6.0 L Albumin 2.3 L TSH 3.44 D 06/08/19 06/09/19 06/09/19 23:57 04:21 06:50 WBC RBC Hgb Hct MCV MCH MCHC RDW Plt Count MPV Absolute Neuts (auto) Neutrophils % Neutrophils % (Manual) Band Neutrophils % Lymphocytes % Lymphocytes % (Manual) Monocytes % Monocytes % (Manual) Eosinophils % Eosinophils % (Manual) Basophils % Basophils % (Manual) Myelocytes % (Man) Promyelocytes % (Man) Blast Cells % (Manual) Nucleated RBC % Metamyelocytes Platelet Estimate Polychromasia Poikilocytosis Anisocytosis Macrocytosis Spherocytes Target Cells Tear Drop Cells Anticoagulation Therapy No Result Required. Puncture Site Right radial ABG pH 7.30 L ABG pCO2 at Pt Temp 59.4 H ABG pO2 at Pt Temp 57.5 L ABG HCO3 28.0 H ABG O2 Sat (Measured) 84.5 L ABG O2 Content 14.3 ABG Base Excess 0.8 Terrence Test Positive O2 Delivery Device Nrb mask Oxygen Flow Rate 100% Vent Mode No Result Required. Vent Rate No Result Required. Mechanical Rate No Result Required. Pressure Support Vent No Result Required. Sodium Potassium Chloride Carbon Dioxide Anion Gap BUN Creatinine Est GFR (CKD-EPI)AfAm Est GFR (CKD-EPI)NonAf POC Glucometer 139 267 Random Glucose Hemoglobin A1c % Calcium Phosphorus Magnesium Iron TIBC Iron Saturation Unsaturated IBC Ferritin Total Bilirubin AST ALT Alkaline Phosphatase Total Protein Albumin TSH 06/09/19 06/09/19 06/09/19 07:05 10:10 10:10 WBC 19.7 H RBC 4.21 Hgb 11.0 L Hct 35.8 MCV 85.2 MCH 26.1 MCHC 30.7 L RDW 22.0 H Plt Count 291 MPV 8.0 Absolute Neuts (auto) 18.2 H Neutrophils % 92.6 H Neutrophils % (Manual) 89.0 H Band Neutrophils % 3.0 Lymphocytes % 1.3 L D Lymphocytes % (Manual) 3.0 L D Monocytes % 5.5 Monocytes % (Manual) 4 D Eosinophils % 0.0 D Eosinophils % (Manual) 0.0 Basophils % 0.6 Basophils % (Manual) 0.0 Myelocytes % (Man) 0 Promyelocytes % (Man) 0 Blast Cells % (Manual) 0 Nucleated RBC % 0 Metamyelocytes 0 Platelet Estimate Normal Polychromasia 1+ Poikilocytosis 2+ Anisocytosis 1+ Macrocytosis 1+ Spherocytes 1+ Target Cells 1+ Tear Drop Cells 1+ Anticoagulation Therapy Puncture Site ABG pH ABG pCO2 at Pt Temp ABG pO2 at Pt Temp ABG HCO3 ABG O2 Sat (Measured) ABG O2 Content ABG Base Excess Terrence Test O2 Delivery Device Oxygen Flow Rate Vent Mode Vent Rate Mechanical Rate Pressure Support Vent Sodium 138 Potassium 4.2 Chloride 102 Carbon Dioxide 27 Anion Gap 9 BUN 17.9 Creatinine 0.9 Est GFR (CKD-EPI)AfAm 102.79 Est GFR (CKD-EPI)NonAf 88.69 POC Glucometer 233 Random Glucose 321 H Hemoglobin A1c % Calcium 8.0 L Phosphorus 3.8 Magnesium 2.1 Iron TIBC Iron Saturation Unsaturated IBC Ferritin Total Bilirubin 0.5 AST 16 ALT 15 Alkaline Phosphatase 104 Total Protein 5.8 L Albumin 2.2 L TSH 06/09/19 11:44 WBC RBC Hgb Hct MCV MCH MCHC RDW Plt Count MPV Absolute Neuts (auto) Neutrophils % Neutrophils % (Manual) Band Neutrophils % Lymphocytes % Lymphocytes % (Manual) Monocytes % Monocytes % (Manual) Eosinophils % Eosinophils % (Manual) Basophils % Basophils % (Manual) Myelocytes % (Man) Promyelocytes % (Man) Blast Cells % (Manual) Nucleated RBC % Metamyelocytes Platelet Estimate Polychromasia Poikilocytosis Anisocytosis Macrocytosis Spherocytes Target Cells Tear Drop Cells Anticoagulation Therapy Puncture Site ABG pH ABG pCO2 at Pt Temp ABG pO2 at Pt Temp ABG HCO3 ABG O2 Sat (Measured) ABG O2 Content ABG Base Excess Terrence Test O2 Delivery Device Oxygen Flow Rate Vent Mode Vent Rate Mechanical Rate Pressure Support Vent Sodium Potassium Chloride Carbon Dioxide Anion Gap BUN Creatinine Est GFR (CKD-EPI)AfAm Est GFR (CKD-EPI)NonAf POC Glucometer 293 Random Glucose Hemoglobin A1c % Calcium Phosphorus Magnesium Iron TIBC Iron Saturation Unsaturated IBC Ferritin Total Bilirubin AST ALT Alkaline Phosphatase Total Protein Albumin TSH Active Medications Generic Name Dose Route Start Last Admin Trade Name Freq PRN Reason Stop Dose Admin Acetaminophen 650 mg 06/09/19 05:59 Tylenol - PO Q6H PRN PAIN LEVEL 1-5 Albuterol Sulfate 1 amp 06/09/19 05:59 Ventolin 0.083% Nebulizer Soln - NEB RQID PRN SHORT OF BREATH/WHEEZING Aripiprazole 5 mg 06/09/19 10:00 06/09/19 10:20 Abilify PO 5 mg DAILY JONATHON Administration Calcium Carbonate 500 mg 06/09/19 10:00 06/09/19 14:00 Os-Davey 500mg - PO Not Given DAILY JONATHON Cholecalciferol 2,000 unit 06/09/19 10:00 06/09/19 10:20 Vitamin D3 - PO 2,000 unit DAILY JONATHON Administration Diltiazem HCl 30 mg 06/08/19 14:00 06/09/19 15:31 Cardizem - PO Not Given TID JONATHON Enoxaparin Sodium 80 mg 06/09/19 10:00 06/09/19 10:14 Lovenox - SQ 80 mg BID JONATHON Administration Diltiazem HCl 125 mg/ Sodium 125 mls @ 5 mls/hr 06/09/19 04:15 Chloride IVPB TITR JONATHON Protocol 5 MG/HR Amiodarone HCl/Dextrose 360 mg in 200 mls @ 16.667 mls/hr 06/09/19 05:15 02/16 15:35 Nexterone 360 Mg/200 Ml Bag IVPB 16.667 mls/hr ASDIR JONATHON Administration Protocol 0.5 MG/MIN Sodium Chloride 1,000 mls @ 75 mls/hr 06/09/19 05:59 06/09/19 06:28 Normal Saline - IV 75 mls/hr ASDIR JONATHON Administration Piperacillin Sod/Tazobactam 50 mls @ 100 mls/hr 06/09/19 15:00 06/09/19 15:46 Sod 3.375 gm/ Dextrose IVPB 100 mls/hr Q8H-IV JONATHON Administration Protocol Vancomycin HCl 1,000 mg in 250 mls @ 166.667 mls/hr 06/10/19 00:00 Vancomycin (Pre-Docked) IVPB 06/10/19 01:29 ONCE ONE Protocol Insulin Aspart 1 vial 06/09/19 07:00 06/09/19 11:56 Novolog Vial Sliding Scale - SQ 4 units ACHS JONATHON Administration Protocol ASSESSMENT/PLAN: 68 y/o M from [facility] with hx of HTN, HLD, A-Fib on AC, DM, CAD, Schizo, & recently diagnosed non small cell lung CA w/ brain and T-spine mets (Of note, tumor exhibits PDL-1 expression) presented on 06/[address] chest reveals massive right sided pleural effusion with compressive atelectasis s/p right chest tube placement Neuro: - awake, a&ox1 - required versed x2 doses for agitation during CVC CV: - labile BP 70s-110s/40-80s s/p 2L LR - RIJ CVC placed and confirmed with XR - levophed 5mcg Respiratory: - right sided effusion likely malignant with compressive atelectasis - s/p chest tube with 3L; will monitor I&Os - O2 100% on BiPAP -> currently on nonrebreather and sats 100% GI: - NPO Renal: - Cr 0.9 ID: - positive BCx x1 with staph coag negative; Dr Littlejohn consulted, continue zosyn - repeat BCx Heme/Onc: - WBC 19, on zosyn; will continue to trend - Onc consulted regarding cancer, poor prognosis - palliative consulted for [facility]: - IVF 100cc/hr LR - replete lytes prn - NPO - RIJ, trevino, right lateral chest tube, PIV x2 Dispo: ICU team will continue to follow; NH and assisted living contacted and patient with no known relatives or POA; SW to followup identifying next of kin Visit type - Emergency Visit Emergency Visit: No - New Patient This patient is new to me today: Yes Date on this admission: 06/09/19 - Critical Care Critical Care patient: Yes Total Critical Care Time (in minutes): 60 Critical Care Statement: The care of this patient involved high complexity decision making to prevent further life threatening deterioration of the patient 's condition and/or to evaluate & treat vital organ system(s) failure or risk of failure. ATTENDING PHYSICIAN STATEMENT I saw and evaluated the patient. I reviewed the resident's note and discussed the case with the resident. I agree with the resident's findings and plan as documented. SUBJECTIVE: OBJECTIVE: ASSESSMENT AND PLAN:
[2019-06-09] MEDS ORDERED: NOREPINEPHRINE BITARTRATE 4 MG/4 ML ML IV ONE (16:15)
[2019-06-09] MEDS: NOREPINEPHRINE BITARTRATE 8,000 MCG in SODIUM CHLORIDE 492 ML IV SCH (16:20)
--- NOTE | 2019-06-09 16:40 | PROC ---
Central Line Insertion Indication: Vasopressor Risks and Benefits Explained: No (Patient non consentable) Consent on Chart: No (Double doc due to no proxy/POA) Central Line: Triple Lumen Catheter Anesthesia: 1% Lidocaine Sterile Technique: Yes Ultrasound Guided Assistance: Yes Position: Right Internal Jugular Post Insertion: Yes: Bilateral Breath Sounds, Chest X-Ray Ordered Sterile Dressing Applied: Yes Remarks: Patient required ativan x2 for agitation during procedure but otherwise tolerated well Levophed and vasopressin ordered for BP control
[2019-06-09] MEDS ORDERED: FUROSEMIDE 40 MG/4 ML INJECTABLE VIAL ONE (19:59)
[2019-06-09] MEDS ORDERED: RAPID SEQUENCE INTUBATION KIT NR ONE (20:12)
[2019-06-09 20:30] LABS: ARTERIAL BLD GAS O2 SATURATION 73.3 % (95-98); ARTERIAL BLOOD GAS BASE EXCESS 0.5 meq/l (-2-2); ARTERIAL BLOOD GAS pH 7.21 (7.35-7.45)
[2019-06-09 20:31] LABS: ALLENS TEST POSITIVE
[2019-06-09 20:35] LABS: ARTERIAL BLOOD GAS PCO2 79.3 mmHg (35-45); ARTERIAL BLOOD GAS PO2 49.9 mmHg (80-100)
[2019-06-09] MEDS ORDERED: ROCURONIUM BROMIDE 50 MG/5 ML VIAL IVPUSH ONE (21:26)
[2019-06-09] MEDS ORDERED: PROPOFOL 1,000,000 MCG/100 ML VIAL ONE (21:31)
--- NOTE | 2019-06-09 21:54 | PROC ---
Intubation - Intubation Reason for Intubation: Respiratory Insufficiency, Ventilatory Failure Time of Intubation: 21:30 Intubation Method: orotracheal Blade used: Mac Tube Size (cm): 7.5 Tube position @ lip (cm): 22 Tube position confirmed by: CO2 detector, Chest x-ray, Breath sounds Breath Sounds after Intubation: equal Post Intubation Xray: Yes
[2019-06-09] MEDS: PROPOFOL 1,000,000 MCG/100 ML VIAL IVPB SCH (22:07)
[2019-06-09 23:12] LABS: ARTERIAL BLD GAS O2 SATURATION 98.9 % (95-98); ARTERIAL BLOOD GAS BASE EXCESS 1.6 meq/l (-2-2); ARTERIAL BLOOD GAS PCO2 55.4 mmHg (35-45); ARTERIAL BLOOD GAS PO2 182 mmHg (80-100); ARTERIAL BLOOD GAS pH 7.33 (7.35-7.45)
[2019-06-09 23:15] LABS: ALLENS TEST POSITIVE
--- NOTE | 2019-06-09 23:15 | PN ---
Progress Note (short form) - Note Progress Note: Patient was noted to desaturate to the 60s and tachycardic to the 150s Attempts of diuresis with additional lasix was made with initial improvement of O2 80s/90s however patient remained somnolent on biPAP Desaturation event to the 40s/50s without improvement following chest physio and BVM; decision was made to intubate at this time Following intubation, patient desatted to 70s twice and required continued chest physio and pulmonary toilet with clearance of large thick mucus secretions and subsequent improvement of sats to 100%
[2019-06-10] MEDS ORDERED: VANCOMYCIN 1 GRAM (PRE-DOCKED) 1,000 MG/250 ML BAG IVPB ONE
[2019-06-10] MEDS ORDERED: PIPERACILLIN/TAZOBACTAM 3.375 GM VIAL IVPB ONE ×3 (01:00→16:09)
[2019-06-10] MEDS ORDERED: DEXTROSE 5%-WATER - 50 ML IVPB ONE ×3 (01:00→16:09)
[2019-06-10] MEDS: AMIODARONE IN DEXTROSE,ISO-OSM 360 MG/200 ML BAG IVPB SCH ×3 (01:32→08:30)
[2019-06-10] MEDS: PIPERACILLIN/TAZOB 3.375 GM 3.375 GM in DEXTROSE 5%-WATER - 50 ML IVPB SCH ×3 (01:32→17:30)
--- NOTE | 2019-06-10 01:53 | PN ---
Progress Note (short form) - Note Progress Note: PAtient seen and examined Intubated Afebrile, tachycardic, mildly hypotensive Cor: RSR, No murmurs, No gallops Lungs: decreased at bases Abd: Soft, Normal bowel sounds, No organomegaly Ext:No significant edema LAbs/MEds reviewed A/P 68 y/opatient with HTN, afib, CAD, DM, HLD schizophrenia, with newly diagnosed lung cancer RUL mass lesion 5cm with hilar and mediastinal adenopathy. Lt. Adrenal enlargement Poorly differentiated carcinoma. PDL1 > 90% T3 vertebral body metastases, paravertebral mass, foraminal obstruction by the mass at T2-3, displacement of the cord Left cerebellar 0.7cm and rt. occipital metastasis next gen sequencing --no actionable mutation s/p RT to T spine and RUL mass Was seen in the office but given his poor insight into his disease process and treament , significant memory impairment, his performance status of 3 and his active refusal systemic treament was deferred . Given stage IV lung cancer and poor performance status recommend palliative/supportive care. Would recommend ethics consult to facilitate end of life decisions in this case
[2019-06-10] MEDS: PROPOFOL 1,000,000 MCG/100 ML VIAL IVPB SCH ×3 (02:00→14:36)
[2019-06-10] MEDS: dilTIAZem HCL 30 MG TABLET (FP) PO SCH ×3 (06:05→21:09)
--- NOTE | 2019-06-10 06:44 | PN ---
Progress Note (short form) - Note Progress Note: Chief Complaint: Events noted, notes reviewed, sedated and intubated for acute respiratory failure, hypotensive on pressors, remains in atrial fibrillation with RVR initiated on IV Amiodarone History of Present Illness: Seen and examined in the ICU. Events noted, notes reviewed, Events noted, notes reviewed, sedated and intubated for acute respiratory failure, hypotensive on pressors, remains in atrial fibrillation with RVR initiated on IV Amiodarone Chest x-ray noted no change Current Medications: Current Medications Acetaminophen (Tylenol -) 650 mg PO Q6H PRN PRN Reason: PAIN LEVEL 1-5 Albuterol Sulfate (Ventolin 0.083% Nebulizer Soln -) 1 amp NEB RQID PRN PRN Reason: SHORT OF BREATH/WHEEZING Aripiprazole (Abilify) 5 mg PO DAILY ON LICENSE OF [facility] Last Admin: 06/10/19 09:44 Dose: 5 mg Calcium Carbonate (Os-Davey 500mg -) 500 mg PO DAILY ON LICENSE OF [facility] Last Admin: 06/10/19 09:45 Dose: 500 mg Cholecalciferol (Vitamin D3 -) 2,000 unit PO DAILY ON LICENSE OF [facility] Last Admin: 06/10/19 09:45 Dose: 2,000 unit Diltiazem HCl (Cardizem -) 30 mg PO TID ON LICENSE OF [facility] Last Admin: 06/10/19 06:05 Dose: 30 mg Enoxaparin Sodium (Lovenox -) 80 mg SQ BID ON LICENSE OF [facility] Last Admin: 06/10/19 09:45 Dose: 80 mg Piperacillin Sod/Tazobactam (Sod 3.375 gm/ Dextrose) 50 mls @ 100 mls/hr IVPB Q8H-IV [facility]; Protocol Last Admin: 06/10/19 09:45 Dose: 100 mls/hr Norepinephrine Bitartrate 8, (000 mcg/ Sodium Chloride) 500 mls @ 18.75 mls/hr IV TITR [facility]ATH[facility]; Protocol Last Admin: 06/10/19 09:47 Dose: 7 mcg/min, 26.25 mls/hr Vasopressin 50 units/ Sodium (Chloride) 100 mls @ 4 mls/hr IVPB ASDIR JONATHON; Protocol Last Titration: 06/09/19 16:30 Dose: 0 units/hr, 0 mls/hr Propofol (Diprivan -) 1,000,000 mcg in 100 mls @ 2.49 mls/hr IVPB TITR [facility]; Protocol Last Admin: 06/10/19 09:47 Dose: 30 mcg/kg/min, 14.941 mls/hr Amiodarone HCl/Dextrose (Nexterone 360 Mg/200 Ml Bag) 360 mg in 200 mls @ 33.333 mls/hr IVPB ASDIR JONATHON; Protocol Last Admin: 06/10/19 08:30 Dose: 16.7 mls/hr Insulin Aspart (Novolog Vial Sliding Scale -) 1 vial SQ ACHS ON LICENSE OF [facility]; Protocol Last Admin: 06/10/19 07:20 Dose: Not Given Review of Systems Unable to obtain - Objective Vital Signs: Last Vital Signs Temp Pulse Resp BP Pulse Ox 98.9 F 112 H 16 86/64 L 100 06/10/19 06:00 06/10/19 06:00 06/10/19 06:00 06/10/19 06:00 06/09/19 21:27 Intake & Output 06/07/19 06/08/19 06/09/19 06/10/19 23:59 23:59 23:59 23:59 Intake Total 3465 4849.0 Output Total 450 5500 Balance 3015 -651.0 Weight 169 lb 183 lb 181 lb 6.4 oz Neck: Supple negative JVD no bruit Cardiovascular: S1 S2 Irregularly Irregular Respiratory: Diminished Breath Sounds Bilaterally Gastrointestinal: Soft Benign Normal Bowel Sounds Ext: Edema Bilaterally Labs: CBC, BMP 06/09/19 10:10 06/09/19 10:10 Hepatic Panel Total Bilirubin 0.5 mg/dL (0.2-1) 06/09/19 10:10 AST 16 U/L (15-37) 06/09/19 10:10 ALT 15 U/L (13-61) 06/09/19 10:10 Alkaline Phosphatase 104 U/L (45-117) 06/09/19 10:10 Albumin 2.2 g/dl (3.4-5.0) L 06/09/19 10:10 INR, PTT INR 1.20 (0.83-1.09) H 06/08/19 01:30 ABG Results ABG pH 7.33 (7.35-7.45) L 06/09/19 23:00 ABG pCO2 at Pt Temp 55.4 mmHg (35-45) H 06/09/19 23:00 ABG pO2 at Pt Temp 182 mmHg (80-100) H 06/09/19 23:00 ABG HCO3 28.1 mmol/L (22-27) H 06/09/19 23:00 ABG O2 Sat (Measured) 98.9 % (95-98) H 06/09/19 23:00 ABG O2 Content 18.4 % vol 06/09/19 23:00 ABG Base Excess 1.6 meq/l (-2-2) 06/09/19 23:00 Assessment/Plan: ASSESSMENT: 1. Acute hypoxic respiratory failure related to complete right lung collapse/ large pleural effusion post chest tube insertion 2. Hypotension, probable sepsis syndrome on pressors, probable post obstructive pneumonia 3. Metastatic lung carcinoma, brain mets 4. Persistent atrial fibrillation with RVR on Amiodarone therapy, [id number] score of 5 currntly off of A/C 5. Coronary artery disease with evidence of demand ischemia no clinical angina pectoris 6. Diastolic left ventricular dysfunction with clinical class 0 [place] [employer] classification left ventricular failure 7. Hypertensive cardiovascular disease, currently hypotensive as noted above 8. Diabetes mellitus 9. Hypercholesterolemia 10. History of cerebrovascular disease 11. History of schizophrenia 12. History of ataxia 13. History of osteomyelitis 14. Anemia PLAN: 1. Continue Amiodarone IV and eventual switch to PO, assist with rate control 2. Attempt to wean off pressors/hemodyanamics permitting 3. Recommend once off of pressor therapy to initiate Lopressor therapy/ hemodyanamics permitting 4. Continue Cardizem with caution, hemodynamics permitting- avoid while on pressors 5. Recommend initiation of A/C therapy unless it is absolutely contraindicated with caution and close monitoring of CBC/Hg level, maintain hemoglobin equal or greater than 8.0 6. Utilize diuretic therapy/Lasix therapy/as needed with close monitoring of renal function and electrolytes 7. Antibiotics as per the primary team 8. Overall poor prognosis, recommend palliative care involvement Ubaldo Kim MD
[2019-06-10] MEDS: INSULIN SLIDING SCALE (NOVOLOG) 1 VIAL SQ SCH ×4 (07:20→22:28)
[2019-06-10 07:39] LABS: EOS % 0.3 % (0-4.5); HEMATOCRIT 34.6 % (35.4-49); LYMPH % 3.3 % (8-40); MCH 26.1 pg (25.7-33.7); MCHC 31.7 g/dl (32.0-35.9); MEAN CELL VOLUME 82.1 fl (80-96); MEAN PLT VOLUME 7.9 fl (7.5-11.1); MONO % 5.9 % (3.8-10.2); NEUT % 89.5 % (42.8-82.8); PLATELET COUNT 279 K/MM3 (134-434); RBC 4.21 M/mm3 (4.00-5.60); RDW 21.8 % (11.9-15.9); WHITE BLOOD COUNT 17.1 K/mm3 (4.0-10.0)
[2019-06-10 07:55] LABS: BILIRUBIN,TOTAL 0.9 mg/dL (0.2-1); BLOOD UREA NITROGEN 15.4 mg/dL (7-18); CALCIUM 7.4 mg/dL (8.5-10.1); CREATININE 0.8 mg/dL (0.55-1.3); MAGNESIUM 1.9 mg/dL (1.8-2.4); PHOSPHOROUS 2.3 mg/dL (2.5-4.9); POTASSIUM 3.8 mmol/L (3.5-5.1); TOT PROT 5.4 g/dl (6.4-8.2)
--- NOTE | 2019-06-10 09:28 | PN ---
Progress Note, Physician - Current Medication List Current Medications: Active Medications Acetaminophen (Tylenol -) 650 mg PO Q6H PRN PRN Reason: PAIN LEVEL 1-5 Albuterol Sulfate (Ventolin 0.083% Nebulizer Soln -) 1 amp NEB RQID PRN PRN Reason: SHORT OF BREATH/WHEEZING Aripiprazole (Abilify) 5 mg PO DAILY [facility] Last Admin: 06/09/19 10:20 Dose: 5 mg Calcium Carbonate (Os-Davey 500mg -) 500 mg PO DAILY [facility] Last Admin: 06/09/19 14:00 Dose: Not Given Cholecalciferol (Vitamin D3 -) 2,000 unit PO DAILY [facility] Last Admin: 06/09/19 10:20 Dose: 2,000 unit Diltiazem HCl (Cardizem -) 30 mg PO TID [facility] Last Admin: 06/10/19 06:05 Dose: 30 mg Enoxaparin Sodium (Lovenox -) 80 mg SQ BID [facility] Last Admin: 06/09/19 22:30 Dose: 80 mg Piperacillin Sod/Tazobactam (Sod 3.375 gm/ Dextrose) 50 mls @ 100 mls/hr IVPB Q8H-IV [facility]ONATH[facility]; Protocol Last Admin: 06/10/19 01:32 Dose: 100 mls/hr Norepinephrine Bitartrate 8, (000 mcg/ Sodium Chloride) 500 mls @ 18.75 mls/hr IV TITR [facility]ONATH[facility]; Protocol Last Titration: 06/09/19 17:07 Dose: 7 mcg/min, 26.25 mls/hr Vasopressin 50 units/ Sodium (Chloride) 100 mls @ 4 mls/hr IVPB ASDIR JONATH[facility]; Protocol Last Titration: 06/09/19 16:30 Dose: 0 units/hr, 0 mls/hr Propofol (Diprivan -) 1,000,000 mcg in 100 mls @ 2.49 mls/hr IVPB TITR JONATH[facility]; Protocol Last Admin: 06/10/19 02:00 Dose: 30 mcg/kg/min, 14.941 mls/hr Amiodarone HCl/Dextrose (Nexterone 360 Mg/200 Ml Bag) 360 mg in 200 mls @ 33.333 mls/hr IVPB ASDIR [facility]ONATH[facility]; Protocol Last Admin: 06/10/19 02:35 Dose: 33.333 mls/hr Insulin Aspart (Novolog Vial Sliding Scale -) 1 vial SQ ACHS [facility]; Protocol Last Admin: 06/10/19 07:20 Dose: Not Given - Objective Vital Signs: Vital Signs Temperature 98.9 F 06/10/19 06:00 Pulse Rate 112 H 06/10/19 06:00 Respiratory Rate 16 06/10/19 06:00 Blood Pressure 86/64 L 06/10/19 06:00 O2 Sat by Pulse Oximetry (%) 100 06/09/19 21:27 Cardiovascular: Yes: Tachycardia, Pulse Irregular, S1, S2 Respiratory: Yes: Mechanically Ventilated Gastrointestinal: Yes: Normal Bowel Sounds, Soft Labs: CBC, BMP 06/10/19 06:52 06/10/19 06:52 INR, PTT INR 1.20 (0.83-1.09) H 06/08/19 01:30 Assessment/Plan - Problems (1) SOB (shortness of breath) Assessment/Plan: -CTA Chest:with right lung collapse and large right pleural effusion. No evidence of PE. 5 cm RUL mass with hilar and mediastinal adenopathy, left adrenal enlargement, T3 vertebral body metastases, paravertebral mass, foraminal obstruction by the mass at T2-3, displacement of the cord, left cerebellar 0.7cm and rt. occipital metastasis. -Chest Tube placed -Now on Vent -Pulmonary on board -O2 to keep SpO2>90% -Bronchodilators -IR to place chest drain -Xarelto on hold -Lovenox 80 mg SQ BID for dvt ppx for afib Problems reviewed: Yes Code(s): R06.02 - SHORTNESS OF BREATH (2) Collapse of right lung Problems reviewed: Yes Code(s): J98.11 - ATELECTASIS (3) Pleural effusion Problems reviewed: Yes -Chest Tube placed--over 2500 cc of fluid drained -Pulmonary on board Code(s): J90 - PLEURAL EFFUSION, NOT ELSEWHERE CLASSIFIED (4) Lung cancer Assessment/Plan: -Oncology consult -Overall poor prognosis=Palliative care Problems reviewed: Yes Code(s): C34.90 - MALIGNANT NEOPLASM OF UNSP PART OF UNSP BRONCHUS OR LUNG (5) Metastatic disease Problems reviewed: Yes Code(s): C79.9 - SECONDARY MALIGNANT NEOPLASM OF UNSPECIFIED SITE (6) Diabetes Assessment/Plan: -recheck A1c -BGM AC HS Problems reviewed: Yes Code(s): E11.9 - TYPE 2 DIABETES MELLITUS WITHOUT COMPLICATIONS (7) Schizophrenia Assessment/Plan: -Continue Abilify Problems reviewed: Yes Code(s): F20.9 - SCHIZOPHRENIA, UNSPECIFIED (8) Afib Assessment/Plan: -Rapid now on drip -chronic -cardiology consult -Lovenox 80 mg SQ BID for afib Problems reviewed: Yes Code(s): I48.91 - UNSPECIFIED ATRIAL FIBRILLATION Qualifiers: Atrial fibrillation type: persistent (9) Hypotension Assessment/Plan: -Hold Lisinopril -Cardiology consult Problems reviewed: Yes Code(s): I95.9 - HYPOTENSION, UNSPECIFIED
[2019-06-10] MEDS: ARIPiprazole 5 MG TABLET PO SCH (09:44)
[2019-06-10] MEDS: ENOXAPARIN NA (PORCINE) 80 MG/0.8 ML DISP.SYRIN SQ SCH ×2 (09:45→21:09)
[2019-06-10] MEDS: CHOLECALCIFEROL (VIT D3) 1,000 UNIT (25 MCG) TABLET PO SCH (09:45)
[2019-06-10] MEDS: CALCIUM (OYSTER SHELL) 500 MG TABLET (FP) PO SCH (09:45)
[2019-06-10] MEDS: NOREPINEPHRINE BITARTRATE 8,000 MCG in SODIUM CHLORIDE 492 ML IV SCH ×2 (09:47→16:57)
[2019-06-10 09:50] LABS: ANISOCYTOSIS 1+; MACROCYTOSIS 0; PLATELET ESTIMATE NORMAL; TARGET CELLS 1+
--- NOTE | 2019-06-10 12:47 | PN ---
Progress Note (short form) - Note Progress Note: ETHICS Dr. Mccurdy requested an ethics consultation on Mr. Theodore. The patient is a 68yo patient former resident of [facility] but recently a patient in [facility] who was transferred to [facility] on 06/06/2019. 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 He has a background history of Atrial Fibrillation, DM Hypertension and Schizophrenia. His admission now was based on a large right pleural effusion likely a malignant effusion and in spite of chest tube placement soon developed respiratory distress and required endotracheal intubation. Because or his critical status and extension of his stage 4 malignancy which has now progressed to life support Dr. Mccurdy has stated in her progress note on 06/09/2019 that she would recommend palliative and supportive care. In a patient such as Mr. Theodore without the capacity to make medical decisions who has been found to have no family or friends after an extensive search on previous admissions, it is acceptable for the attending MD with the concurrence of another treating physicians to make medical decisions for the patient from routine to major medical conditions. Initially the patient had been agreeable to some of the early medical treatments suggested by the Oncology MD however recently he seemed to object to any treatments so rightfully they were not forced upon him. However in the case of withholding or withdrawing medical treatment in a patient with no HCP or surrogate and no medical decision making capacity then there are requirements which state that a court order may be requested or if the attending physician with independent concurrence of a second physician designated by the hospital determines to a reasonable degree of medical certainty that a) life sustaining treatment offers the patient no medical benefit because the patient will imminently, even if treatment is provided and b) the provision of life sustaining treatment would violate accepted medical standards, then such treatment may be withdrawn or withheld from an adult patient who has been determined to lack decision making capacity without judicial approval. A formal ethics meeting may be convened but would also require the presence of the treating MD's including oncology, social service and risk management. Ideally patient should have had a guardian request from his place of residence at [facility] but that did not occur.
--- NOTE | 2019-06-10 14:11 | PN ---
Teaching Attending Note Name of Resident: Horacio Canales ATTENDING PHYSICIAN STATEMENT I saw and evaluated the patient. I reviewed the resident's note and discussed the case with the resident. I agree with the resident's findings and plan as documented. SUBJECTIVE: Patient seen and examined in the ICU. Decompensated and required intubation overnight. Levophed for hemodynamic support. Continued serosanginous drainage from the right pleural catheter. CXR: right complete opacification Intake & Output 06/07/19 06/08/19 06/09/19 06/10/19 23:59 23:59 23:59 23:59 Intake Total 3465 4849.0 929.3 Output Total 450 5500 350 Balance 3015 -651.0 579.3 Weight 169 lb 183 lb 181 lb 6.4 oz Last Vital Signs Temp Pulse Resp BP Pulse Ox 98.2 F 117 H 18 86/67 L 100 06/10/19 10:00 06/10/19 11:00 06/10/19 11:00 06/10/19 11:00 06/10/19 10:00 Active Medications Acetaminophen (Tylenol -) 650 mg PO Q6H PRN PRN Reason: PAIN LEVEL 1-5 Albuterol Sulfate (Ventolin 0.083% Nebulizer Soln -) 1 amp NEB RQID PRN PRN Reason: SHORT OF BREATH/WHEEZING Aripiprazole (Abilify) 5 mg PO DAILY [facility] Last Admin: 06/10/19 09:44 Dose: 5 mg Calcium Carbonate (Os-Davey 500mg -) 500 mg PO DAILY [facility] Last Admin: 06/10/19 09:45 Dose: 500 mg Cholecalciferol (Vitamin D3 -) 2,000 unit PO DAILY [facility] Last Admin: 06/10/19 09:45 Dose: 2,000 unit Diltiazem HCl (Cardizem -) 30 mg PO TID [facility] Last Admin: 06/10/19 06:05 Dose: 30 mg Enoxaparin Sodium (Lovenox -) 80 mg SQ BID [facility] Last Admin: 06/10/19 09:45 Dose: 80 mg Piperacillin Sod/Tazobactam (Sod 3.375 gm/ Dextrose) 50 mls @ 100 mls/hr IVPB Q8H-IV [facility]ATH[facility]; Protocol Last Admin: 06/10/19 09:45 Dose: 100 mls/hr Norepinephrine Bitartrate 8, (000 mcg/ Sodium Chloride) 500 mls @ 18.75 mls/hr IV TITR [facility]ATH[facility]; Protocol Last Admin: 06/10/19 09:47 Dose: 7 mcg/min, 26.25 mls/hr Vasopressin 50 units/ Sodium (Chloride) 100 mls @ 4 mls/hr IVPB ASDIR [facility]ONATH[facility]; Protocol Last Titration: 06/09/19 16:30 Dose: 0 units/hr, 0 mls/hr Propofol (Diprivan -) 1,000,000 mcg in 100 mls @ 2.49 mls/hr IVPB TITR [facility]ONATH[facility]; Protocol Last Admin: 06/10/19 09:47 Dose: 30 mcg/kg/min, 14.941 mls/hr Amiodarone HCl/Dextrose (Nexterone 360 Mg/200 Ml Bag) 360 mg in 200 mls @ 33.333 mls/hr IVPB ASDIR [facility]; Protocol Last Admin: 06/10/19 08:30 Dose: 16.7 mls/hr Insulin Aspart (Novolog Vial Sliding Scale -) 1 vial SQ ACHS [facility]; Protocol Last Admin: 06/10/19 07:20 Dose: Not Given Constitutional: Yes: Intubated and sedated Eyes: Yes: WNL, Conjunctiva Clear HENT: Yes: WNL, Atraumatic, Normocephalic Neck: Yes: WNL, Supple, Trachea Midline Cardiovascular: Yes: Tachycardia, Pulse Irregular Respiratory: Yes: Vented, Diminished on the Right, right CT Gastrointestinal: Yes: WNL, Normal Bowel Sounds, Soft ...Rectal Exam: Yes: Deferred Renal/: Yes: WNL Breast(s): Yes: WNL Musculoskeletal: Yes: WNL Extremities: Yes: WNL Edema: No Peripheral Pulses WNL: Yes Neurological: Yes: Sedated ...Motor Strength: WNL Psychiatric: Yes: Sedated Labs: Laboratory Results - last 24 hr 06/09/19 06/09/19 06/09/19 10:10 16:57 20:00 WBC RBC Hgb Hct MCV MCH MCHC RDW Plt Count MPV Absolute Neuts (auto) Neutrophils % Neutrophils % (Manual) 89.0 H Band Neutrophils % 3.0 Lymphocytes % Lymphocytes % (Manual) 3.0 L D Monocytes % Monocytes % (Manual) 4 D Eosinophils % Eosinophils % (Manual) 0.0 Basophils % Basophils % (Manual) 0.0 Myelocytes % (Man) 0 Promyelocytes % (Man) 0 Blast Cells % (Manual) 0 Nucleated RBC % Metamyelocytes 0 Hypochromia Platelet Estimate Normal Polychromasia 1+ Poikilocytosis 2+ Anisocytosis 1+ Microcytosis Macrocytosis 1+ Spherocytes 1+ Target Cells 1+ Tear Drop Cells 1+ Anticoagulation Therapy No Result Required. Puncture Site Right radial ABG pH 7.21 L ABG pCO2 at Pt Temp 79.3 H* ABG pO2 at Pt Temp 49.9 L* ABG HCO3 30.2 H ABG O2 Sat (Measured) 73.3 L ABG O2 Content 12.6 ABG Base Excess 0.5 Terrence Test Positive O2 Delivery Device Bipap Oxygen Flow Rate 100% Vent Mode No Result Required. Vent Rate 16 Mechanical Rate No Result Required. PEEP Pressure Support Vent 16/18 Sodium Potassium Chloride Carbon Dioxide Anion Gap BUN Creatinine Est GFR (CKD-EPI)AfAm Est GFR (CKD-EPI)NonAf POC Glucometer 144 Random Glucose Calcium Phosphorus Magnesium Total Bilirubin AST ALT Alkaline Phosphatase Total Protein Albumin 06/09/19 06/09/19 06/10/19 22:34 23:00 06:47 WBC RBC Hgb Hct MCV MCH MCHC RDW Plt Count MPV Absolute Neuts (auto) Neutrophils % Neutrophils % (Manual) Band Neutrophils % Lymphocytes % Lymphocytes % (Manual) Monocytes % Monocytes % (Manual) Eosinophils % Eosinophils % (Manual) Basophils % Basophils % (Manual) Myelocytes % (Man) Promyelocytes % (Man) Blast Cells % (Manual) Nucleated RBC % Metamyelocytes Hypochromia Platelet Estimate Polychromasia Poikilocytosis Anisocytosis Microcytosis Macrocytosis Spherocytes Target Cells Tear Drop Cells Anticoagulation Therapy No Result Required. Puncture Site Right radial ABG pH 7.33 L ABG pCO2 at Pt Temp 55.4 H ABG pO2 at Pt Temp 182 H ABG HCO3 28.1 H ABG O2 Sat (Measured) 98.9 H ABG O2 Content 18.4 ABG Base Excess 1.6 Terrence Test Positive O2 Delivery Device Vent Oxygen Flow Rate 100% Vent Mode No Result Required. Vent Rate 14 Mechanical Rate No Result Required. PEEP 5.0 Pressure Support Vent 450 Sodium Potassium Chloride Carbon Dioxide Anion Gap BUN Creatinine Est GFR (CKD-EPI)AfAm Est GFR (CKD-EPI)NonAf POC Glucometer 165 145 Random Glucose Calcium Phosphorus Magnesium Total Bilirubin AST ALT Alkaline Phosphatase Total Protein Albumin 06/10/19 06/10/19 06/10/19 06:52 06:52 11:46 WBC 17.1 H RBC 4.21 Hgb 11.0 L Hct 34.6 L MCV 82.1 MCH 26.1 MCHC 31.7 L RDW 21.8 H Plt Count 279 MPV 7.9 Absolute Neuts (auto) 15.3 H Neutrophils % 89.5 H Neutrophils % (Manual) Band Neutrophils % Lymphocytes % 3.3 L D Lymphocytes % (Manual) Monocytes % 5.9 Monocytes % (Manual) Eosinophils % 0.3 D Eosinophils % (Manual) Basophils % 1.0 Basophils % (Manual) Myelocytes % (Man) Promyelocytes % (Man) Blast Cells % (Manual) Nucleated RBC % 0 Metamyelocytes Hypochromia 1+ Platelet Estimate Normal Polychromasia 1+ Poikilocytosis 1+ Anisocytosis 1+ Microcytosis 1+ Macrocytosis 0 Spherocytes Target Cells 1+ Tear Drop Cells Anticoagulation Therapy Puncture Site ABG pH ABG pCO2 at Pt Temp ABG pO2 at Pt Temp ABG HCO3 ABG O2 Sat (Measured) ABG O2 Content ABG Base Excess Terrence Test O2 Delivery Device Oxygen Flow Rate Vent Mode Vent Rate Mechanical Rate PEEP Pressure Support Vent Sodium 139 Potassium 3.8 Chloride 102 Carbon Dioxide 31 Anion Gap 6 L BUN 15.4 Creatinine 0.8 Est GFR (CKD-EPI)AfAm 107.89 Est GFR (CKD-EPI)NonAf 93.09 POC Glucometer 143 Random Glucose 154 H Calcium 7.4 L Phosphorus 2.3 L Magnesium 1.9 Total Bilirubin 0.9 AST 13 L ALT 13 Alkaline Phosphatase 89 Total Protein 5.4 L Albumin 2.0 L Assessment/Plan -Acute HYPOXIC RESP FAIL 2/2 R Pleural effusion m/l malignant -Metastatic Non small cell lung CA -HTN -HLD -DM -A-Fib -CAD -SCHIZO PLAN: -AC Mode of vent -Will need ethics evaluation -Bronchodilators -Pressors to maintain MAP > 65 -R Chest Tube to suction drain -Hold all anti-HTN meds -Rate Control -FS's -SSI -Strict I's & O's -Trend BUN/Cr -Replete e-lytes -SCDs -GI ppx -Overall poor prognosis -Requires ICU monitoring Dr Luna Critical care time spent in reviewing chart, evaluating patient and formulating plan - 36 minutes.
[2019-06-10] MEDS ORDERED: MAGNESIUM SULF 50% (8.12 MEQ/2 ML-1 GM VIAL) IVPB ONE (15:27)
[2019-06-10 15:51] LABS: PERICARDIAL FLUID SOURCE PLUERAL
[2019-06-10 15:52] LABS: PERICARDIAL FLUID LYMPHOCYTES 62 %; PERICARDIAL FLUID MACROPHAGES 8 %; PERICARDIAL FLUID NEUTROPHILS 30 %; RBC 1910 /mm3; WBC & OTHER NUCLEATED CELLS 305 /mm3
[2019-06-10 15:53] LABS: PERICARDIAL FLUID MESOTHELIALS 9 %
--- NOTE | 2019-06-10 15:59 | PN ---
Physical Exam: SUBJECTIVE: Patient seen and examined O/N: increasing O2 needs while on BiPaP. ABG 7.21/79.3/49.9/30.2/73.2%; intubated OBJECTIVE: Vital Signs Period Temp Pulse Resp BP Sys/Stock Pulse Ox Last 24 Hr 97.3 F-98.9 F 93-139 14-21 73-106/52-80 90-100 GENERAL: sedated on propofol HEAD: NC/AT EYES: sclera anicteric, conjunctiva clear. No ptosis. ENT: Ears normal, nares patent, moist mucous membranes. NECK: Trachea midline, full range of motion, supple. LUNGS: Diminished BS to the Right. Right chest w/ serous output. Vented 450, 14 , 5, 70% HEART: irreg, tachy, no notable murmurs ABDOMEN: Soft, nontender, nondistended, normoactive bowel sounds EXTREMITIES: 2+ pulses, warm, well-perfused, mild nonpitting peripheral edema. NEUROLOGICAL: intubated and sedation SKIN: Warm, dry, normal turgor, no rashes or lesions noted Laboratory Results - last 24 hr 06/09/19 06/09/19 06/09/19 16:57 20:00 22:34 WBC RBC Hgb Hct MCV MCH MCHC RDW Plt Count MPV Absolute Neuts (auto) Neutrophils % Lymphocytes % Monocytes % Eosinophils % Basophils % Nucleated RBC % Hypochromia Platelet Estimate Polychromasia Poikilocytosis Anisocytosis Microcytosis Macrocytosis Target Cells Anticoagulation Therapy No Result Required. Puncture Site Right radial ABG pH 7.21 L ABG pCO2 at Pt Temp 79.3 H* ABG pO2 at Pt Temp 49.9 L* ABG HCO3 30.2 H ABG O2 Sat (Measured) 73.3 L ABG O2 Content 12.6 ABG Base Excess 0.5 Terrence Test Positive O2 Delivery Device Bipap Oxygen Flow Rate 100% Vent Mode No Result Required. Vent Rate 16 Mechanical Rate No Result Required. PEEP Pressure Support Vent 16/18 Sodium Potassium Chloride Carbon Dioxide Anion Gap BUN Creatinine Est GFR (CKD-EPI)AfAm Est GFR (CKD-EPI)NonAf POC Glucometer 144 165 Random Glucose Calcium Phosphorus Magnesium Total Bilirubin AST ALT Alkaline Phosphatase LD Total Total Protein Albumin 06/09/19 06/10/19 06/10/19 23:00 06:47 06:52 WBC 17.1 H RBC 4.21 Hgb 11.0 L Hct 34.6 L MCV 82.1 MCH 26.1 MCHC 31.7 L RDW 21.8 H Plt Count 279 MPV 7.9 Absolute Neuts (auto) 15.3 H Neutrophils % 89.5 H Lymphocytes % 3.3 L D Monocytes % 5.9 Eosinophils % 0.3 D Basophils % 1.0 Nucleated RBC % 0 Hypochromia 1+ Platelet Estimate Normal Polychromasia 1+ Poikilocytosis 1+ Anisocytosis 1+ Microcytosis 1+ Macrocytosis 0 Target Cells 1+ Anticoagulation Therapy No Result Required. Puncture Site Right radial ABG pH 7.33 L ABG pCO2 at Pt Temp 55.4 H ABG pO2 at Pt Temp 182 H ABG HCO3 28.1 H ABG O2 Sat (Measured) 98.9 H ABG O2 Content 18.4 ABG Base Excess 1.6 Terrence Test Positive O2 Delivery Device Vent Oxygen Flow Rate 100% Vent Mode No Result Required. Vent Rate 14 Mechanical Rate No Result Required. PEEP 5.0 Pressure Support Vent 450 Sodium Potassium Chloride Carbon Dioxide Anion Gap BUN Creatinine Est GFR (CKD-EPI)AfAm Est GFR (CKD-EPI)NonAf POC Glucometer 145 Random Glucose Calcium Phosphorus Magnesium Total Bilirubin AST ALT Alkaline Phosphatase LD Total Total Protein Albumin 06/10/19 06/10/19 06:52 11:46 WBC RBC Hgb Hct MCV MCH MCHC RDW Plt Count MPV Absolute Neuts (auto) Neutrophils % Lymphocytes % Monocytes % Eosinophils % Basophils % Nucleated RBC % Hypochromia Platelet Estimate Polychromasia Poikilocytosis Anisocytosis Microcytosis Macrocytosis Target Cells Anticoagulation Therapy Puncture Site ABG pH ABG pCO2 at Pt Temp ABG pO2 at Pt Temp ABG HCO3 ABG O2 Sat (Measured) ABG O2 Content ABG Base Excess Terrence Test O2 Delivery Device Oxygen Flow Rate Vent Mode Vent Rate Mechanical Rate PEEP Pressure Support Vent Sodium 139 Potassium 3.8 Chloride 102 Carbon Dioxide 31 Anion Gap 6 L BUN 15.4 Creatinine 0.8 Est GFR (CKD-EPI)AfAm 107.89 Est GFR (CKD-EPI)NonAf 93.09 POC Glucometer 143 Random Glucose 154 H Calcium 7.4 L Phosphorus 2.3 L Magnesium 1.9 Total Bilirubin 0.9 AST 13 L ALT 13 Alkaline Phosphatase 89 LD Total 222 Total Protein 5.4 L Albumin 2.0 L Active Medications Generic Name Dose Route Start Last Admin Trade Name Freq PRN Reason Stop Dose Admin Acetaminophen 650 mg 06/09/19 05:59 Tylenol - PO Q6H PRN PAIN LEVEL 1-5 Albuterol Sulfate 1 amp 06/09/19 05:59 Ventolin 0.083% Nebulizer Soln - NEB RQID PRN SHORT OF BREATH/WHEEZING Aripiprazole 5 mg 06/09/19 10:00 06/10/19 09:44 Abilify PO 5 mg DAILY JONATHON Administration Calcium Carbonate 500 mg 06/09/19 10:00 06/10/19 09:45 Os-Davey 500mg - PO 500 mg DAILY JONATHON Administration Cholecalciferol 2,000 unit 06/09/19 10:00 06/10/19 09:45 Vitamin D3 - PO 2,000 unit DAILY JONATHON Administration Diltiazem HCl 30 mg 06/08/19 14:00 06/10/19 14:35 Cardizem - PO Not Given TID JONATHON Enoxaparin Sodium 80 mg 06/09/19 10:00 06/10/19 09:45 Lovenox - SQ 80 mg BID JONATHON Administration Piperacillin Sod/Tazobactam 50 mls @ 100 mls/hr 06/09/19 15:00 06/10/19 09:45 Sod 3.375 gm/ Dextrose IVPB 100 mls/hr Q8H-IV JONATHON Administration Protocol Norepinephrine Bitartrate 8, 500 mls @ 18.75 mls/hr 06/09/19 16:15 06/10/19 09:47 000 mcg/ Sodium Chloride IV 7 mcg/min TITR JONATHON 26.25 mls/hr Administration Protocol 5 MCG/MIN Vasopressin 50 units/ Sodium 100 mls @ 4 mls/hr 06/09/19 16:45 06/09/19 16:30 Chloride IVPB 0 units/hr ASDIR JONATHON 0 mls/hr Titration Protocol 2 UNITS/HR Propofol 1,000,000 mcg in 100 mls @ 2.49 mls/hr 06/09/19 22:00 06/10/19 14:36 Diprivan - IVPB 30 mcg/kg/min TITR JONATHON 14.941 mls/hr Administration Protocol 5 MCG/KG/MIN Amiodarone HCl/Dextrose 360 mg in 200 mls @ 33.333 mls/hr 06/10/19 02:21 03/19 08:30 Nexterone 360 Mg/200 Ml Bag IVPB 16.7 mls/hr ASDIR JONATHON Administration Protocol 1 MG/MIN Sodium Phosphate 30 mm/ Sodium 260 mls @ 62.5 mls/hr 06/10/19 16:00 Chloride IVPB 06/10/19 20:09 ONCE ONE Insulin Aspart 1 vial 06/09/19 07:00 06/10/19 12:35 Novolog Vial Sliding Scale - SQ Not Given ACHS JONATHON Protocol Magnesium Sulfate 2 gm 06/10/19 15:27 Magnesium Sulfate IVPB 06/10/19 15:28 ONCE ONE ASSESSMENT/PLAN: 68 y/o M from [facility] with hx of HTN, HLD, A-Fib on AC, DM, CAD, Schizo, & recently diagnosed non small cell lung CA w/ brain and T-spine mets (Of note, tumor exhibits PDL-1 expression) presented on 06/[address] chest reveals massive right sided pleural effusion with compressive atelectasis vs compressive malignancy s/p right chest tube placement. Intubated on 06/09/19 for desaturation despite BiPaP and ABG showing hypercapnic respir failure Neuro: - sedated, intubated - at risk for ICU-acquired delirium CV: - MAPs 60-80s on Levophed 7mcg gtt - RIJ CVC placed and confirmed with XR - levophed 5mcg Respiratory: - right sided effusion likely malignant with compressive atelectasis vs compressive malignancy - s/p chest tube with 4.45L in last 24hs; will monitor I&Os - ventilated: 450, 14, 5, 70% GI: - NPO Renal: - Cr 0.8 ID: > BCX(06/08/19): coag-neg staph; Gram positive bacili - positive BCx x1 with staph coag negative; Dr Littlejohn consulted, continue zosyn - repeat BCx Heme/Onc: - WBC 17.1, on zosyn; will continue to trend - Onc consulted regarding cancer, poor prognosis - palliative(Zachary) consulted for [facility]: - replete lytes prn - NPO - RIJ, trevino, right lateral chest tube, ETT, PIV x2 Dispo: ICU team will continue to follow; NH and assisted living contacted and patient with no known relatives or POA; SW to followup identifying next of kin Visit type - Emergency Visit Emergency Visit: No - New Patient This patient is new to me today: No - Critical Care Critical Care patient: Yes Total Critical Care Time (in minutes): 36 Critical Care Statement: The care of this patient involved high complexity decision making to prevent further life threatening deterioration of the patient 's condition and/or to evaluate & treat vital organ system(s) failure or risk of failure. ATTENDING PHYSICIAN STATEMENT I saw and evaluated the patient. I reviewed the resident's note and discussed the case with the resident. I agree with the resident's findings and plan as documented. SUBJECTIVE: OBJECTIVE: ASSESSMENT AND PLAN:
[2019-06-10] MEDS ORDERED: SODIUM PHOSPHATE - 30 MM in SODIUM CHLORIDE 250 ML IVPB ONE (16:00)
[2019-06-10] MEDS: VASOPRESSIN 50 UNITS in SODIUM CHLORIDE 97.5 ML IVPB SCH (17:22)
[2019-06-11] MEDS ORDERED: DEXTROSE 5%-WATER - 50 ML IVPB ONE ×4 (01:54→23:55)
[2019-06-11] MEDS ORDERED: PIPERACILLIN/TAZOBACTAM 3.375 GM VIAL IVPB ONE ×4 (01:54→23:55)
[2019-06-11] MEDS: PIPERACILLIN/TAZOB 3.375 GM 3.375 GM in DEXTROSE 5%-WATER - 50 ML IVPB SCH ×3 (02:18→17:51)
[2019-06-11] MEDS: AMIODARONE IN DEXTROSE,ISO-OSM 360 MG/200 ML BAG IVPB SCH (05:34)
[2019-06-11] MEDS: dilTIAZem HCL 30 MG TABLET (FP) PO SCH ×3 (06:30→21:30)
[2019-06-11 06:33] LABS: HEMATOCRIT 33.6 % (35.4-49); HEMOGLOBIN 10.8 GM/dL (11.7-16.9); MCH 26.1 pg (25.7-33.7); MEAN CELL VOLUME 81.5 fl (80-96); MEAN PLT VOLUME 8.2 fl (7.5-11.1); PLATELET COUNT 229 K/MM3 (134-434); RBC 4.13 M/mm3 (4.00-5.60); RDW 21.6 % (11.9-15.9); WHITE BLOOD COUNT 15.5 K/mm3 (4.0-10.0)
[2019-06-11 07:05] LABS: ALBUMIN 1.9 g/dl (3.4-5.0); BILIRUBIN,TOTAL 0.7 mg/dL (0.2-1); BLOOD UREA NITROGEN 11.1 mg/dL (7-18); CALCIUM 7.5 mg/dL (8.5-10.1); CREATININE 0.6 mg/dL (0.55-1.3); MAGNESIUM 2.4 mg/dL (1.8-2.4); PHOSPHOROUS 2.5 mg/dL (2.5-4.9); POTASSIUM 3.3 mmol/L (3.5-5.1); TOT PROT 5.2 g/dl (6.4-8.2)
[2019-06-11] MEDS: INSULIN SLIDING SCALE (NOVOLOG) 1 VIAL SQ SCH ×4 (07:38→21:31)
[2019-06-11 08:21] LABS: ARTERIAL BLD GAS O2 SATURATION 98.2 % (95-98); ARTERIAL BLOOD GAS BASE EXCESS 5.8 meq/l (-2-2); ARTERIAL BLOOD GAS PCO2 39.7 mmHg (35-45); ARTERIAL BLOOD GAS PO2 115 mmHg (80-100); ARTERIAL BLOOD GAS pH 7.48 (7.35-7.45)
[2019-06-11 08:23] LABS: ALLENS TEST POSITIVE
--- NOTE | 2019-06-11 08:27 | PN ---
Progress Note, Physician - Current Medication List Current Medications: Active Medications Acetaminophen (Tylenol -) 650 mg PO Q6H PRN PRN Reason: PAIN LEVEL 1-5 Albuterol Sulfate (Ventolin 0.083% Nebulizer Soln -) 1 amp NEB RQID PRN PRN Reason: SHORT OF BREATH/WHEEZING Aripiprazole (Abilify) 5 mg PO DAILY REPLACED BY [facility] Last Admin: 06/10/19 09:44 Dose: 5 mg Calcium Carbonate (Os-Davey 500mg -) 500 mg PO DAILY JONATHON Last Admin: 06/10/19 09:45 Dose: 500 mg Cholecalciferol (Vitamin D3 -) 2,000 unit PO DAILY REPLACED BY [facility] Last Admin: 06/10/19 09:45 Dose: 2,000 unit Diltiazem HCl (Cardizem -) 30 mg PO TID REPLACED BY [facility] Last Admin: 06/11/19 06:30 Dose: Not Given Enoxaparin Sodium (Lovenox -) 80 mg SQ BID REPLACED BY [facility] Last Admin: 06/10/19 21:09 Dose: 80 mg Piperacillin Sod/Tazobactam (Sod 3.375 gm/ Dextrose) 50 mls @ 100 mls/hr IVPB Q8H-IV JONATHON; Protocol Last Admin: 06/11/19 02:18 Dose: 100 mls/hr Norepinephrine Bitartrate 8, (000 mcg/ Sodium Chloride) 500 mls @ 18.75 mls/hr IV TITR JONATHON; Protocol Last Titration: 06/10/19 18:00 Dose: 6 mcg/min, 22.5 mls/hr Vasopressin 50 units/ Sodium (Chloride) 100 mls @ 4 mls/hr IVPB ASDIR JONATHON; Protocol Last Admin: 06/10/19 17:22 Dose: Not Given Propofol (Diprivan -) 1,000,000 mcg in 100 mls @ 2.49 mls/hr IVPB TITR JONATHON; Protocol Last Titration: 06/11/19 01:47 Dose: 30 mcg/kg/min, 14.941 mls/hr Amiodarone HCl/Dextrose (Nexterone 360 Mg/200 Ml Bag) 360 mg in 200 mls @ 33.333 mls/hr IVPB ASDIR JONATHON; Protocol Last Admin: 06/11/19 05:34 Dose: 16.7 mls/hr Insulin Aspart (Novolog Vial Sliding Scale -) 1 vial SQ ACHS REPLACED BY [facility]; Protocol Last Admin: 06/11/19 07:38 Dose: Not Given - Objective Vital Signs: Vital Signs Temperature 99.5 F 06/11/19 06:00 Pulse Rate 111 H 06/11/19 06:00 Respiratory Rate 21 H 06/11/19 06:00 Blood Pressure 105/79 06/11/19 06:00 O2 Sat by Pulse Oximetry (%) 100 06/11/19 04:31 Cardiovascular: Yes: S1, S2 Respiratory: Yes: Mechanically Ventilated Gastrointestinal: Yes: Normal Bowel Sounds, Soft Labs: CBC, BMP 06/11/19 05:35 06/11/19 05:35 INR, PTT INR 1.20 (0.83-1.09) H 06/08/19 01:30 Assessment/Plan - Problems (1) SOB (shortness of breath) Assessment/Plan: -CTA Chest:with right lung collapse and large right pleural effusion. No evidence of PE. 5 cm RUL mass with hilar and mediastinal adenopathy, left adrenal enlargement, T3 vertebral body metastases, paravertebral mass, foraminal obstruction by the mass at T2-3, displacement of the cord, left cerebellar 0.7cm and rt. occipital metastasis. -Chest Tube placed -Now on Vent -Pulmonary on board -O2 to keep SpO2>90% -Bronchodilators -IR to place chest drain -Xarelto on hold -Lovenox 80 mg SQ BID for dvt ppx for afib Problems reviewed: Yes Code(s): R06.02 - SHORTNESS OF BREATH (2) Collapse of right lung Problems reviewed: Yes Code(s): J98.11 - ATELECTASIS (3) Pleural effusion Problems reviewed: Yes -Chest Tube in place -Pulmonary on board Code(s): J90 - PLEURAL EFFUSION, NOT ELSEWHERE CLASSIFIED (4) Lung cancer Assessment/Plan: -Oncology consult -Overall poor prognosis=Palliative care Problems reviewed: Yes Code(s): C34.90 - MALIGNANT NEOPLASM OF UNSP PART OF UNSP BRONCHUS OR LUNG (5) Metastatic disease Problems reviewed: Yes Code(s): C79.9 - SECONDARY MALIGNANT NEOPLASM OF UNSPECIFIED SITE (6) Diabetes Assessment/Plan: -recheck A1c -BGM AC HS Problems reviewed: Yes Code(s): E11.9 - TYPE 2 DIABETES MELLITUS WITHOUT COMPLICATIONS (7) Schizophrenia Assessment/Plan: -Continue Abilify Problems reviewed: Yes Code(s): F20.9 - SCHIZOPHRENIA, UNSPECIFIED (8) Afib Assessment/Plan: -Rapid now on drip -chronic -cardiology consult -Lovenox 80 mg SQ BID for afib Problems reviewed: Yes Code(s): I48.91 - UNSPECIFIED ATRIAL FIBRILLATION Qualifiers: Atrial fibrillation type: persistent (9) Hypotension Assessment/Plan: -Hold Lisinopril -Cardiology consult Problems reviewed: Yes Code(s): I95.9 - HYPOTENSION, UNSPECIFIED
[2019-06-11] MEDS ORDERED: NOREPINEPHRINE BITARTRATE 4 MG/4 ML ML IV ONE (08:45)
[2019-06-11] MEDS: KCL 10 MEQ IVPB 10 MEQ/100 ML INFUS.BAG IVPB SCH ×3 (09:33→11:38)
[2019-06-11] MEDS: ENOXAPARIN NA (PORCINE) 80 MG/0.8 ML DISP.SYRIN SQ SCH ×2 (09:43→21:31)
[2019-06-11] MEDS: ARIPiprazole 5 MG TABLET PO SCH (09:43)
[2019-06-11] MEDS: CHOLECALCIFEROL (VIT D3) 1,000 UNIT (25 MCG) TABLET PO SCH (09:43)
--- NOTE | 2019-06-11 10:43 | PN ---
Progress Note, Physician History of Present Illness: AWAKE ON VENTILATOR NO ACUTE DISTRESS AFEBRILE + TRACHEAL SECRETIONS CHEST TUBE IN PLACE REPEAT BC NO GROWTH - Current Medication List Current Medications: Active Medications Acetaminophen (Tylenol -) 650 mg PO Q6H PRN PRN Reason: PAIN LEVEL 1-5 Albuterol Sulfate (Ventolin 0.083% Nebulizer Soln -) 1 amp NEB RQID PRN PRN Reason: SHORT OF BREATH/WHEEZING Aripiprazole (Abilify) 5 mg PO DAILY [facility] Last Admin: 06/11/19 09:43 Dose: 5 mg Calcium Carbonate (Os-Davey 500mg -) 500 mg PO DAILY JONATHON Last Admin: 06/10/19 09:45 Dose: 500 mg Cholecalciferol (Vitamin D3 -) 2,000 unit PO DAILY JONATHON Last Admin: 06/11/19 09:43 Dose: 2,000 unit Diltiazem HCl (Cardizem -) 30 mg PO TID JONATHON Last Admin: 06/11/19 06:30 Dose: Not Given Enoxaparin Sodium (Lovenox -) 80 mg SQ BID JONATHON Last Admin: 06/11/19 09:43 Dose: 80 mg Piperacillin Sod/Tazobactam (Sod 3.375 gm/ Dextrose) 50 mls @ 100 mls/hr IVPB Q8H-IV JONATHON; Protocol Last Admin: 06/11/19 09:32 Dose: 100 mls/hr Norepinephrine Bitartrate 8, (000 mcg/ Sodium Chloride) 500 mls @ 18.75 mls/hr IV TITR JONATHON; Protocol Last Titration: 06/11/19 09:00 Dose: 2 mcg/min, 7.5 mls/hr Vasopressin 50 units/ Sodium (Chloride) 100 mls @ 4 mls/hr IVPB ASDIR JONATHON; Protocol Last Admin: 06/10/19 17:22 Dose: Not Given Propofol (Diprivan -) 1,000,000 mcg in 100 mls @ 2.49 mls/hr IVPB TITR JONATHON; Protocol Last Titration: 06/11/19 08:00 Dose: 20 mcg/kg/min, 9.961 mls/hr Amiodarone HCl/Dextrose (Nexterone 360 Mg/200 Ml Bag) 360 mg in 200 mls @ 33.333 mls/hr IVPB ASDIR JONATHON; Protocol Last Admin: 06/11/19 05:34 Dose: 16.7 mls/hr Potassium Chloride (Potassium Chloride 10 Meq Premix Ivpb -) 10 meq in 100 mls @ 100 mls/hr IVPB Q60M [facility] Stop: 06/11/19 11:29 Last Admin: 06/11/19 09:44 Dose: 100 mls/hr Insulin Aspart (Novolog Vial Sliding Scale -) 1 vial SQ ACHS [facility]; Protocol Last Admin: 06/11/19 07:38 Dose: Not Given - Objective Vital Signs: Vital Signs Temperature 99.4 F 06/11/19 10:00 Pulse Rate 110 H 06/11/19 10:00 Respiratory Rate 18 06/11/19 10:00 Blood Pressure 85/58 L 06/11/19 10:00 O2 Sat by Pulse Oximetry (%) 100 06/11/19 04:31 Constitutional: Yes: No Distress Cardiovascular: Yes: Regular Rate and Rhythm, S1, S2 Respiratory: Yes: Mechanically Ventilated, Other (CHEST TUBE IN PLACE) Gastrointestinal: Yes: Normal Bowel Sounds, Soft. No: Tenderness Edema: Yes Labs: CBC, BMP 06/11/19 05:35 06/11/19 05:35 INR, PTT INR 1.20 (0.83-1.09) H 06/08/19 01:30 Assessment/Plan RESP FAILURE PLEURAL EFFUSION ? PNEUMONIA +BC LIKELY CONTAMINANT LEUKOCYTOSIS METASTATIC CA AWAIT REPEAT BC, PLEURAL FLUID C/S CONTINUE EMPIRIC ZOSYN
[2019-06-11] MEDS: CALCIUM (OYSTER SHELL) 500 MG TABLET (FP) PO SCH (11:38)
--- NOTE | 2019-06-11 11:59 | PN ---
Progress Note, Physician History of Present Illness: Sedated and intubated for acute respiratory failure AC Mode of vent, 60% FiO2, hypotensive on pressors, remains in rate-controlled atrial fibrillation on IV Amiodarone. - Current Medication List Current Medications: Active Medications Acetaminophen (Tylenol -) 650 mg PO Q6H PRN PRN Reason: PAIN LEVEL 1-5 Albuterol Sulfate (Ventolin 0.083% Nebulizer Soln -) 1 amp NEB RQID PRN PRN Reason: SHORT OF BREATH/WHEEZING Aripiprazole (Abilify) 5 mg PO DAILY [facility] Last Admin: 06/11/19 09:43 Dose: 5 mg Calcium Carbonate (Os-Davey 500mg -) 500 mg PO DAILY [facility] Last Admin: 06/11/19 11:38 Dose: 500 mg Cholecalciferol (Vitamin D3 -) 2,000 unit PO DAILY [facility] Last Admin: 06/11/19 09:43 Dose: 2,000 unit Diltiazem HCl (Cardizem -) 30 mg PO TID [facility] Last Admin: 06/11/19 06:30 Dose: Not Given Enoxaparin Sodium (Lovenox -) 80 mg SQ BID [facility] Last Admin: 06/11/19 09:43 Dose: 80 mg Piperacillin Sod/Tazobactam (Sod 3.375 gm/ Dextrose) 50 mls @ 100 mls/hr IVPB Q8H-IV JONATHON; Protocol Last Admin: 06/11/19 09:32 Dose: 100 mls/hr Norepinephrine Bitartrate 8, (000 mcg/ Sodium Chloride) 500 mls @ 18.75 mls/hr IV TITR [facility]; Protocol Last Titration: 06/11/19 11:00 Dose: 4 mcg/min, 15 mls/hr Vasopressin 50 units/ Sodium (Chloride) 100 mls @ 4 mls/hr IVPB ASDIR [facility]; Protocol Last Admin: 06/10/19 17:22 Dose: Not Given Propofol (Diprivan -) 1,000,000 mcg in 100 mls @ 2.49 mls/hr IVPB TITR [facility]; Protocol Last Titration: 06/11/19 08:00 Dose: 20 mcg/kg/min, 9.961 mls/hr Amiodarone HCl/Dextrose (Nexterone 360 Mg/200 Ml Bag) 360 mg in 200 mls @ 33.333 mls/hr IVPB ASDIR [facility]; Protocol Last Admin: 06/11/19 05:34 Dose: 16.7 mls/hr Insulin Aspart (Novolog Vial Sliding Scale -) 1 vial SQ ACHS [facility]; Protocol Last Admin: 06/11/19 11:52 Dose: Not Given - Objective Vital Signs: Vital Signs Temperature 99.4 F 06/11/19 10:00 Pulse Rate 105 H 06/11/19 11:00 Respiratory Rate 18 06/11/19 10:00 Blood Pressure 82/62 L 06/11/19 11:00 O2 Sat by Pulse Oximetry (%) 95 06/11/19 08:30 Constitutional: Yes: No Distress, Calm Neck: Yes: Supple Cardiovascular: Yes: Pulse Irregular Respiratory: Yes: Intubated, Mechanically Ventilated, Other (Right chest tube in place) Gastrointestinal: Yes: Soft, Hypoactive Bowel Sounds Genitourinary: Yes: Ortega Present Edema: No Labs: CBC, BMP 06/11/19 05:35 06/11/19 05:35 INR, PTT INR 1.20 (0.83-1.09) H 06/08/19 01:30 - ....Imaging Chest X-ray: Report Reviewed (Right hemithorax opacification unchanged) EKG: Report Reviewed (Tele: Afib) Assessment/Plan - Problems (1) Pleural effusion Code(s): J90 - PLEURAL EFFUSION, NOT ELSEWHERE CLASSIFIED (2) Lung cancer Assessment/Plan: lung CA with mets to the brain. CT chest: collapsed right lung, with pleural effusion of the entire right hemithorax post chest tube, likely malignant r/o post-obstructive PNA Large masses (right lung; upper vertebrae) SVC occluded. No PE. Code(s): C34.90 - MALIGNANT NEOPLASM OF UNSP PART OF UNSP BRONCHUS OR LUNG (3) Afib Assessment/Plan: Amio gtt for rate control, On Lovenox 80 bid Code(s): I48.91 - UNSPECIFIED ATRIAL FIBRILLATION Qualifiers: Atrial fibrillation type: persistent (4) Anemia Code(s): D64.9 - ANEMIA, UNSPECIFIED Qualifiers: Anemia type: unspecified type Qualified Code(s): D64.9 - Anemia, unspecified (5) CAD (coronary artery disease) Code(s): I25.10 - ATHSCL HEART DISEASE OF [place] CORONARY ARTERY W/O ANG PCTRS (6) Hypotension wean Levophed gtt for MAP>65 mmHg Code(s): I95.9 - HYPOTENSION, UNSPECIFIED (7) Schizophrenia Code(s): F20.9 - SCHIZOPHRENIA, UNSPECIFIED 1. Acute hypoxic respiratory failure related to complete right lung collapse/ large pleural effusion post chest tube insertion 2. Hypotension, probable sepsis syndrome on pressors, probable post obstructive pneumonia 3. Metastatic lung carcinoma, brain mets 4. Persistent atrial fibrillation with RVR on Amiodarone therapy, [id number] score of 5 currntly off of A/C 5. Coronary artery disease with evidence of demand ischemia no clinical angina pectoris 6. Diastolic left ventricular dysfunction with clinical class 0 [place] [employer] classification left ventricular failure 7. Hypertensive cardiovascular disease, currently hypotensive as noted above 8. Diabetes mellitus 9. Hypercholesterolemia 10. History of cerebrovascular disease 11. History of schizophrenia 12. History of ataxia 13. History of osteomyelitis 14. Anemia PLAN: 1. Continue Amiodarone IV and eventual switch to PO, assist with rate control 2. Attempt to wean off pressors/hemodyanamics permitting 3. Recommend once off of pressor therapy to initiate Lopressor therapy/ hemodyanamics permitting 4. Continue Cardizem with caution, hemodynamics permitting- avoid while on pressors 5. Continue A/C therapy with Lovenox 80 bid unless it is absolutely contraindicated with caution and close monitoring of CBC/Hg level, maintain hemoglobin equal or greater than 8.0 6. Utilize diuretic therapy/Lasix therapy/as needed with close monitoring of renal function and electrolytes 7. Antibiotics as per the primary team 8. Overall poor prognosis, palliative care input appreciated
--- NOTE | 2019-06-11 12:03 | PN ---
Teaching Attending Note Name of Resident: Sina Cavazos ATTENDING PHYSICIAN STATEMENT I saw and evaluated the patient. I reviewed the resident's note and discussed the case with the resident. I agree with the resident's findings and plan as documented. SUBJECTIVE: Patient seen and examined in the ICU. Remains intubated and sedated. AC Mode of vent, 60% FiO2. Levophed for hemodynamic support. Continued serosanginous drainage from the right pleural catheter. CXR: right complete opacification Intake & Output 06/08/19 06/09/19 06/10/19 06/11/19 23:59 23:59 23:59 23:59 Intake Total 3465 4849.0 2149.0 388 Output Total 450 5500 1350 1000 Balance 3015 -651.0 799.0 -612 Weight 169 lb 183 lb 181 lb 6.4 oz 188 lb 11.2 oz Last Vital Signs Temp Pulse Resp BP Pulse Ox 99.4 F 105 H 18 82/62 L 95 06/11/19 10:00 06/11/19 11:00 06/11/19 10:00 06/11/19 11:00 06/11/19 08:30 Active Medications Acetaminophen (Tylenol -) 650 mg PO Q6H PRN PRN Reason: PAIN LEVEL 1-5 Albuterol Sulfate (Ventolin 0.083% Nebulizer Soln -) 1 amp NEB RQID PRN PRN Reason: SHORT OF BREATH/WHEEZING Aripiprazole (Abilify) 5 mg PO DAILY [facility] Last Admin: 06/11/19 09:43 Dose: 5 mg Calcium Carbonate (Os-Davey 500mg -) 500 mg PO DAILY [facility] Last Admin: 06/11/19 11:38 Dose: 500 mg Cholecalciferol (Vitamin D3 -) 2,000 unit PO DAILY [facility] Last Admin: 06/11/19 09:43 Dose: 2,000 unit Diltiazem HCl (Cardizem -) 30 mg PO TID [facility] Last Admin: 06/11/19 06:30 Dose: Not Given Enoxaparin Sodium (Lovenox -) 80 mg SQ BID [facility] Last Admin: 06/11/19 09:43 Dose: 80 mg Piperacillin Sod/Tazobactam (Sod 3.375 gm/ Dextrose) 50 mls @ 100 mls/hr IVPB Q8H-IV [facility]; Protocol Last Admin: 06/11/19 09:32 Dose: 100 mls/hr Norepinephrine Bitartrate 8, (000 mcg/ Sodium Chloride) 500 mls @ 18.75 mls/hr IV TITR [facility]ONATH[facility]; Protocol Last Titration: 06/11/19 11:00 Dose: 4 mcg/min, 15 mls/hr Vasopressin 50 units/ Sodium (Chloride) 100 mls @ 4 mls/hr IVPB [facility]; Protocol Last Admin: 06/10/19 17:22 Dose: Not Given Propofol (Diprivan -) 1,000,000 mcg in 100 mls @ 2.49 mls/hr IVPB TITR [facility]ONATH[facility]; Protocol Last Titration: 06/11/19 08:00 Dose: 20 mcg/kg/min, 9.961 mls/hr Amiodarone HCl/Dextrose (Nexterone 360 Mg/200 Ml Bag) 360 mg in 200 mls @ 33.333 mls/hr IVPB [facility]; Protocol Last Admin: 06/11/19 05:34 Dose: 16.7 mls/hr Insulin Aspart (Novolog Vial Sliding Scale -) 1 vial SQ ACHS [facility]; Protocol Last Admin: 06/11/19 11:52 Dose: Not Given Constitutional: Yes: Intubated and sedated Eyes: Yes: WNL, Conjunctiva Clear HENT: Yes: WNL, Atraumatic, Normocephalic Neck: Yes: WNL, Supple, Trachea Midline Cardiovascular: Yes: Tachycardia, Pulse Irregular Respiratory: Yes: Vented, Diminished on the Right, right CT Gastrointestinal: Yes: WNL, Normal Bowel Sounds, Soft ...Rectal Exam: Yes: Deferred Renal/: Yes: WNL Breast(s): Yes: WNL Musculoskeletal: Yes: WNL Extremities: Yes: WNL Edema: No Peripheral Pulses WNL: Yes Neurological: Yes: Sedated ...Motor Strength: WNL Psychiatric: Yes: Sedated Labs: Laboratory Results - last 24 hr 06/09/19 06/10/19 06/10/19 05:55 06:52 16:20 WBC RBC Hgb Hct MCV MCH MCHC RDW Plt Count MPV Anticoagulation Therapy Puncture Site ABG pH ABG pCO2 at Pt Temp ABG pO2 at Pt Temp ABG HCO3 ABG O2 Sat (Measured) ABG O2 Content ABG Base Excess Terrence Test O2 Delivery Device Oxygen Flow Rate Vent Mode Vent Rate Mechanical Rate PEEP Pressure Support Vent Sodium 139 Potassium 3.8 Chloride 102 Carbon Dioxide 31 Anion Gap 6 L BUN 15.4 Creatinine 0.8 Est GFR (CKD-EPI)AfAm 107.89 Est GFR (CKD-EPI)NonAf 93.09 POC Glucometer 153 Random Glucose 154 H Calcium 7.4 L Phosphorus 2.3 L Magnesium 1.9 Total Bilirubin 0.9 AST 13 L ALT 13 Alkaline Phosphatase 89 LD Total 222 Total Protein 5.4 L Albumin 2.0 L Fluid RBC 1910 Pericard Source Plueral Pericard Color Yellow Pericard Appearance Clear Pericard WBC 305 Pericard Neutrophils 30 Pericard Lymphocytes 62 Pericard Macrophages 8 Pericard Mesothelial 9 Pericard Diff Comment 06/10/19 06/11/19 06/11/19 22:24 05:35 05:35 WBC 15.5 H RBC 4.13 Hgb 10.8 L Hct 33.6 L MCV 81.5 MCH 26.1 MCHC 32.0 RDW 21.6 H Plt Count 229 MPV 8.2 Anticoagulation Therapy Puncture Site ABG pH ABG pCO2 at Pt Temp ABG pO2 at Pt Temp ABG HCO3 ABG O2 Sat (Measured) ABG O2 Content ABG Base Excess Terrence Test O2 Delivery Device Oxygen Flow Rate Vent Mode Vent Rate Mechanical Rate PEEP Pressure Support Vent Sodium 141 Potassium 3.3 L Chloride 104 Carbon Dioxide 30 Anion Gap 7 L BUN 11.1 Creatinine 0.6 Est GFR (CKD-EPI)AfAm 121.43 Est GFR (CKD-EPI)NonAf 104.77 POC Glucometer 137 Random Glucose 141 H Calcium 7.5 L Phosphorus 2.5 Magnesium 2.4 Total Bilirubin 0.7 AST 13 L ALT 14 Alkaline Phosphatase 87 LD Total Total Protein 5.2 L Albumin 1.9 L Fluid RBC Pericard Source Pericard Color Pericard Appearance Pericard WBC Pericard Neutrophils Pericard Lymphocytes Pericard Macrophages Pericard Mesothelial Pericard Diff Comment 06/11/19 06/11/19 07:50 11:49 WBC RBC Hgb Hct MCV MCH MCHC RDW Plt Count MPV Anticoagulation Therapy No Result Required. Puncture Site Right radial ABG pH 7.48 H ABG pCO2 at Pt Temp 39.7 ABG pO2 at Pt Temp 115 H ABG HCO3 29.4 H ABG O2 Sat (Measured) 98.2 H ABG O2 Content 14.8 ABG Base Excess 5.8 H Terrence Test Positive O2 Delivery Device Mech/landry Oxygen Flow Rate Yes Vent Mode A/c Vent Rate No Result Required. Mechanical Rate No Result Required. PEEP 5.0 Pressure Support Vent 450 Sodium Potassium Chloride Carbon Dioxide Anion Gap BUN Creatinine Est GFR (CKD-EPI)AfAm Est GFR (CKD-EPI)NonAf POC Glucometer 126 Random Glucose Calcium Phosphorus Magnesium Total Bilirubin AST ALT Alkaline Phosphatase LD Total Total Protein Albumin Fluid RBC Pericard Source Pericard Color Pericard Appearance Pericard WBC Pericard Neutrophils Pericard Lymphocytes Pericard Macrophages Pericard Mesothelial Pericard Diff Comment Assessment/Plan -Acute HYPOXIC RESP FAIL 2/2 R Pleural effusion m/l malignant -Metastatic Non small cell lung CA -HTN -HLD -DM -A-Fib -CAD -SCHIZO PLAN: -AC Mode of vent, wean FiO2 -Bronchodilators -Pressors to maintain MAP > 65 -R Chest Tube to suction drain -Hold all anti-HTN meds -Rate Control -FS's -SSI -Strict I's & O's -Trend BUN/Cr -Replete e-lytes -SCDs -GI ppx -Requires ICU monitoring Overall prognosis is grave Dr Luna Critical care time spent in reviewing chart, evaluating patient and formulating plan - 36 minutes.
--- NOTE | 2019-06-11 14:17 | PATH ---
Cytology Non-Gynecological Report Patient Name: CHARY RUSS Med. Rec. 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 Specimen(s) Received RIGHT PLEURAL FLUID Clinical History History of lung cancer, right pleural effusion Final Diagnosis PLEURAL FLUID, RIGHT, THORACENTESIS: SATISFACTORY FOR EVALUATION. NO MALIGNANT CELLS IDENTIFIED. REACTIVE MESOTHELIAL CELLS, MANY MACROPHAGES, NEUTROPHILS AND LYMPHOCYTES. SEE COMMENT. Comment: Immunohistochemical stains on the cell block material performed at [place], [place] ([id number]) and interpreted at [facility] show many CD68+ macrophages. Reactive mesothelial cells are positive for D2-40 and Calretinin. ELENA shows weak staining. Stains for MOC-31, Toñito-ep4 and TTF-1 are negative. History of lung cancer noted. Prior materials are noted. Positive and negative controls (internal if applicable) show appropriate results. Electronically Signed Kisha Guerrero M.D. Gross Description Approximately 70 cc of yellow fluid received fresh. One cytofunnel prepared and Pap stained. One cellblock prepared.
[2019-06-11] MEDS ORDERED: AMIODARONE HCL 200 MG TABLET PO SCH (14:45)
[2019-06-11] MEDS ORDERED: AMIODARONE HCL 200 MG TABLET NGT SCH (14:45)
--- NOTE | 2019-06-11 14:50 | PN ---
Physical Exam: SUBJECTIVE: Patient seen and examined No acute overnight changes. Tolerating vent. Continues to have chest tube output ; 1L in past 24hrs. Continues to need RT for thick mucus secretions OBJECTIVE: Vital Signs Period Temp Pulse Resp BP Sys/Stock Pulse Ox Last 24 Hr 98.4 F-99.5 F 79-125 13-23 80-118/58-84 95-100 GENERAL: sedated on propofol HEAD: NC/AT EYES: sclera anicteric, conjunctiva clear. No ptosis. ENT: Ears normal, nares patent, moist mucous membranes. NECK: Trachea midline, full range of motion, supple. LUNGS: Diminished BS to the Right. Right chest w/ serous output. Vented 450, 14 , 5, 70% HEART: irreg, tachy, no notable murmurs ABDOMEN: Soft, nontender, nondistended, normoactive bowel sounds EXTREMITIES: 2+ pulses, warm, well-perfused, mild nonpitting peripheral edema. NEUROLOGICAL: intubated and sedation SKIN: Warm, dry, normal turgor, no rashes or lesions noted Laboratory Results - last 24 hr 06/09/19 06/09/19 06/09/19 05:55 05:55 05:55 WBC RBC Hgb Hct MCV MCH MCHC RDW Plt Count MPV Anticoagulation Therapy Puncture Site ABG pH ABG pCO2 at Pt Temp ABG pO2 at Pt Temp ABG HCO3 ABG O2 Sat (Measured) ABG O2 Content ABG Base Excess Terrence Test O2 Delivery Device Oxygen Flow Rate Vent Mode Vent Rate Mechanical Rate PEEP Pressure Support Vent Sodium Potassium Chloride Carbon Dioxide Anion Gap BUN Creatinine Est GFR (CKD-EPI)AfAm Est GFR (CKD-EPI)NonAf POC Glucometer Random Glucose Calcium Phosphorus Magnesium Total Bilirubin AST ALT Alkaline Phosphatase LD Total Total Protein Albumin Fluid RBC 1910 Fluid Total Protein 3.3 Body Fluid LDH Source 148 Pericard Source Plueral Pericard Color Yellow Pericard Appearance Clear Pericard WBC 305 Pericard Neutrophils 30 Pericard Lymphocytes 62 Pericard Macrophages 8 Pericard Mesothelial 9 Pericard Diff Comment 06/10/19 06/10/19 06/10/19 06:52 16:20 22:24 WBC RBC Hgb Hct MCV MCH MCHC RDW Plt Count MPV Anticoagulation Therapy Puncture Site ABG pH ABG pCO2 at Pt Temp ABG pO2 at Pt Temp ABG HCO3 ABG O2 Sat (Measured) ABG O2 Content ABG Base Excess Terrence Test O2 Delivery Device Oxygen Flow Rate Vent Mode Vent Rate Mechanical Rate PEEP Pressure Support Vent Sodium Potassium Chloride Carbon Dioxide Anion Gap BUN Creatinine Est GFR (CKD-EPI)AfAm Est GFR (CKD-EPI)NonAf POC Glucometer 153 137 Random Glucose Calcium Phosphorus Magnesium Total Bilirubin AST ALT Alkaline Phosphatase LD Total 222 Total Protein Albumin Fluid RBC Fluid Total Protein Body Fluid LDH Source Pericard Source Pericard Color Pericard Appearance Pericard WBC Pericard Neutrophils Pericard Lymphocytes Pericard Macrophages Pericard Mesothelial Pericard Diff Comment 06/11/19 06/11/19 06/11/19 05:35 05:35 07:50 WBC 15.5 H RBC 4.13 Hgb 10.8 L Hct 33.6 L MCV 81.5 MCH 26.1 MCHC 32.0 RDW 21.6 H Plt Count 229 MPV 8.2 Anticoagulation Therapy No Result Required. Puncture Site Right radial ABG pH 7.48 H ABG pCO2 at Pt Temp 39.7 ABG pO2 at Pt Temp 115 H ABG HCO3 29.4 H ABG O2 Sat (Measured) 98.2 H ABG O2 Content 14.8 ABG Base Excess 5.8 H Terrence Test Positive O2 Delivery Device Mech/landry Oxygen Flow Rate Yes Vent Mode A/c Vent Rate No Result Required. Mechanical Rate No Result Required. PEEP 5.0 Pressure Support Vent 450 Sodium 141 Potassium 3.3 L Chloride 104 Carbon Dioxide 30 Anion Gap 7 L BUN 11.1 Creatinine 0.6 Est GFR (CKD-EPI)AfAm 121.43 Est GFR (CKD-EPI)NonAf 104.77 POC Glucometer Random Glucose 141 H Calcium 7.5 L Phosphorus 2.5 Magnesium 2.4 Total Bilirubin 0.7 AST 13 L ALT 14 Alkaline Phosphatase 87 LD Total Total Protein 5.2 L Albumin 1.9 L Fluid RBC Fluid Total Protein Body Fluid LDH Source Pericard Source Pericard Color Pericard Appearance Pericard WBC Pericard Neutrophils Pericard Lymphocytes Pericard Macrophages Pericard Mesothelial Pericard Diff Comment 06/11/19 11:49 WBC RBC Hgb Hct MCV MCH MCHC RDW Plt Count MPV Anticoagulation Therapy Puncture Site ABG pH ABG pCO2 at Pt Temp ABG pO2 at Pt Temp ABG HCO3 ABG O2 Sat (Measured) ABG O2 Content ABG Base Excess Terrence Test O2 Delivery Device Oxygen Flow Rate Vent Mode Vent Rate Mechanical Rate PEEP Pressure Support Vent Sodium Potassium Chloride Carbon Dioxide Anion Gap BUN Creatinine Est GFR (CKD-EPI)AfAm Est GFR (CKD-EPI)NonAf POC Glucometer 126 Random Glucose Calcium Phosphorus Magnesium Total Bilirubin AST ALT Alkaline Phosphatase LD Total Total Protein Albumin Fluid RBC Fluid Total Protein Body Fluid LDH Source Pericard Source Pericard Color Pericard Appearance Pericard WBC Pericard Neutrophils Pericard Lymphocytes Pericard Macrophages Pericard Mesothelial Pericard Diff Comment Active Medications Generic Name Dose Route Start Last Admin Trade Name Freq PRN Reason Stop Dose Admin Acetaminophen 650 mg 06/09/19 05:59 Tylenol - PO Q6H PRN PAIN LEVEL 1-5 Albuterol Sulfate 1 amp 06/09/19 05:59 Ventolin 0.083% Nebulizer Soln - NEB RQID PRN SHORT OF BREATH/WHEEZING Amiodarone HCl 100 mg 06/11/19 14:45 Cordarone - NGT DAILY [facility] Aripiprazole 5 mg 06/09/19 10:00 06/11/19 09:43 Abilify PO 5 mg DAILY [facility] Administration Calcium Carbonate 500 mg 06/09/19 10:00 06/11/19 11:38 Os-Davey 500mg - PO 500 mg DAILY [facility] Administration Cholecalciferol 2,000 unit 06/09/19 10:00 06/11/19 09:43 Vitamin D3 - PO 2,000 unit DAILY [facility] Administration Diltiazem HCl 30 mg 06/08/19 14:00 06/11/19 06:30 Cardizem - PO Not Given TID [facility] Enoxaparin Sodium 80 mg 06/09/19 10:00 06/11/19 09:43 Lovenox - SQ 80 mg BID [facility] Administration Piperacillin Sod/Tazobactam 50 mls @ 100 mls/hr 06/09/19 15:00 06/11/19 09:32 Sod 3.375 gm/ Dextrose IVPB 100 mls/hr Q8H-IV [facility] Administration Protocol Norepinephrine Bitartrate 8, 500 mls @ 18.75 mls/hr 06/09/19 16:15 06/11/19 11:00 000 mcg/ Sodium Chloride IV 4 mcg/min TITR [facility] 15 mls/hr Titration Protocol 5 MCG/MIN Vasopressin 50 units/ Sodium 100 mls @ 4 mls/hr 06/09/19 16:45 06/10/19 17:22 Chloride IVPB Not Given ASDIR [facility] Protocol 2 UNITS/HR Propofol 1,000,000 mcg in 100 mls @ 2.49 mls/hr 06/09/19 22:00 06/11/19 08:00 Diprivan - IVPB 20 mcg/kg/min TITR [facility] 9.961 mls/hr Titration Protocol 5 MCG/KG/MIN Insulin Aspart 1 vial 06/09/19 07:00 06/11/19 11:52 Novolog Vial Sliding Scale - SQ Not Given ACHS [facility] Protocol Potassium Chloride 40 meq 06/11/19 14:33 Potassium Chloride 20 Meq Premix Ivpb - IVPB 06/11/19 14:34 ONCE ONE ASSESSMENT/PLAN: 68 y/o M from [facility] with hx of HTN, HLD, A-Fib on AC, DM, CAD, Schizo, & recently diagnosed non small cell lung CA w/ brain and T-spine mets (Of note, tumor exhibits PDL-1 expression) presented on 06/[address] chest reveals massive right sided pleural effusion with compressive atelectasis vs compressive malignancy s/p right chest tube placement. Intubated on 06/09/19 for desaturation despite BiPaP and ABG showing hypercapnic respir failure Neuro: - sedated, intubated - at risk for ICU-acquired delirium CV: - MAPs 60-80s on Levophed 7mcg gtt -> curently on levo 2, wean as tolerated - RIJ CVC placed and confirmed with XR Respiratory: - right sided effusion likely malignant with compressive atelectasis vs compressive malignancy - s/p chest tube; will monitor I&Os - ventilated: 450, 14, 5, 70% -> now tolerating 50% GI: - NPO - dietary consulted for tube feeds; will place this evening Renal: - Cr 0.6 ID: > BCX(06/08/19): coag-neg staph; Gram positive bacili - positive BCx x1 with staph coag negative; Dr Littlejohn consulted, continue zosyn - repeat BCx pending Heme/Onc: - WBC 17.1 -> 15.5, on zosyn; will continue to trend - Onc consulted regarding cancer, poor prognosis - palliative(Zachary) consulted for [facility]: - replete lytes prn - NPO - RIJ, trevino, right lateral chest tube, ETT, PIV x2 Dispo: ICU team will continue to follow; NH and assisted living contacted and patient with no known relatives or POA; patient submitted to ethics committee for review Visit type - Emergency Visit Emergency Visit: No - New Patient This patient is new to me today: No - Critical Care Critical Care patient: Yes Total Critical Care Time (in minutes): 38 Critical Care Statement: The care of this patient involved high complexity decision making to prevent further life threatening deterioration of the patient 's condition and/or to evaluate & treat vital organ system(s) failure or risk of failure. ATTENDING PHYSICIAN STATEMENT I saw and evaluated the patient. I reviewed the resident's note and discussed the case with the resident. I agree with the resident's findings and plan as documented. SUBJECTIVE: OBJECTIVE: ASSESSMENT AND PLAN:
[2019-06-11] MEDS ORDERED: AMIODARONE IN DEXTROSE,ISO-OSM 360 MG/200 ML BAG ONE (15:57)
[2019-06-11] MEDS ORDERED: POTASSIUM CHLORIDE 20 MEQ PREMIX IVPB 100 ML IVPB SCH (16:00)
[2019-06-11] MEDS: VASOPRESSIN 50 UNITS in SODIUM CHLORIDE 97.5 ML IVPB SCH (17:49)
[2019-06-11] MEDS: POTASSIUM CHLORIDE 20 MEQ PREMIX IVPB 100 ML IVPB SCH ×2 (19:24→19:25)
[2019-06-11] MEDS ORDERED: PT OWN MED DRAWER 7, Y5N ONE (23:33)
[2019-06-12] MEDS: PIPERACILLIN/TAZOB 3.375 GM 3.375 GM in DEXTROSE 5%-WATER - 50 ML IVPB SCH ×3 (01:15→17:19)
[2019-06-12] MEDS: PROPOFOL 1,000,000 MCG/100 ML VIAL IVPB SCH ×3 (01:16→22:42)
[2019-06-12 06:23] LABS: BASO % 0.3 % (0-2.0); EOS % 3.4 % (0-4.5); HEMATOCRIT 33.1 % (35.4-49); HEMOGLOBIN 10.7 GM/dL (11.7-16.9); LYMPH % 4.4 % (8-40); MCH 26.2 pg (25.7-33.7); MCHC 32.5 g/dl (32.0-35.9); MEAN CELL VOLUME 80.8 fl (80-96); MEAN PLT VOLUME 7.9 fl (7.5-11.1); MONO % 5.5 % (3.8-10.2); NEUT % 86.4 % (42.8-82.8); PLATELET COUNT 218 K/MM3 (134-434); RDW 21.8 % (11.9-15.9); WHITE BLOOD COUNT 14.6 K/mm3 (4.0-10.0)
[2019-06-12] MEDS: NOREPINEPHRINE BITARTRATE 8,000 MCG in SODIUM CHLORIDE 492 ML IV SCH ×2 (06:46→17:19)
[2019-06-12] MEDS: INSULIN SLIDING SCALE (NOVOLOG) 1 VIAL SQ SCH ×3 (06:46→17:20)
[2019-06-12 06:51] LABS: ALBUMIN 1.9 g/dl (3.4-5.0); BLOOD UREA NITROGEN 10.5 mg/dL (7-18); CALCIUM 7.4 mg/dL (8.5-10.1); CREATININE 0.5 mg/dL (0.55-1.3); MAGNESIUM 2.4 mg/dL (1.8-2.4); POTASSIUM 3.6 mmol/L (3.5-5.1); TOT PROT 5.3 g/dl (6.4-8.2)
[2019-06-12] MEDS: dilTIAZem HCL 30 MG TABLET (FP) PO SCH ×4 (07:07→22:41)
--- NOTE | 2019-06-12 09:01 | PN ---
Progress Note, Physician - Current Medication List Current Medications: Active Medications Acetaminophen (Tylenol -) 650 mg PO Q6H PRN PRN Reason: PAIN LEVEL 1-5 Albuterol Sulfate (Ventolin 0.083% Nebulizer Soln -) 1 amp NEB RQID PRN PRN Reason: SHORT OF BREATH/WHEEZING Amiodarone HCl (Cordarone -) 200 mg NGT [facility]ILY [facility] Aripiprazole (Abilify) 5 mg PO DAILY [facility] Last Admin: 06/11/19 09:43 Dose: 5 mg Calcium Carbonate (Os-Davey 500mg -) 500 mg PO DAILY [facility] Last Admin: 06/11/19 11:38 Dose: 500 mg Cholecalciferol (Vitamin D3 -) 2,000 unit PO DAILY [facility] Last Admin: 06/11/19 09:43 Dose: 2,000 unit Diltiazem HCl (Cardizem -) 30 mg PO TID [facility] Last Admin: 06/12/19 07:09 Dose: Not Given Enoxaparin Sodium (Lovenox -) 80 mg SQ BID [facility] Last Admin: 06/11/19 21:31 Dose: 80 mg Piperacillin Sod/Tazobactam (Sod 3.375 gm/ Dextrose) 50 mls @ 100 mls/hr IVPB Q8H-IV [facility]; Protocol Last Admin: 06/12/19 01:15 Dose: 100 mls/hr Norepinephrine Bitartrate 8, (000 mcg/ Sodium Chloride) 500 mls @ 18.75 mls/hr IV TITR [facility]ATH[facility]; Protocol Last Admin: 06/12/19 06:46 Dose: Not Given Vasopressin 50 units/ Sodium (Chloride) 100 mls @ 4 mls/hr IVPB ASDIR [facility]; Protocol Last Admin: 06/11/19 17:49 Dose: Not Given Propofol (Diprivan -) 1,000,000 mcg in 100 mls @ 2.49 mls/hr IVPB TITR [facility]ONATH[facility]; Protocol Last Admin: 06/12/19 06:46 Dose: Not Given Insulin Aspart (Novolog Vial Sliding Scale -) 1 vial SQ ACHS [facility]; Protocol Last Admin: 06/12/19 06:46 Dose: Not Given - Objective Vital Signs: Vital Signs Temperature 98.5 F 06/12/19 04:00 Pulse Rate 126 H 06/12/19 08:15 Respiratory Rate 14 06/12/19 08:15 Blood Pressure 108/76 06/12/19 08:00 O2 Sat by Pulse Oximetry (%) 100 06/12/19 08:15 Cardiovascular: Yes: S1, S2 Respiratory: Yes: Mechanically Ventilated Gastrointestinal: Yes: Normal Bowel Sounds, Soft Labs: CBC, BMP 06/12/19 05:45 06/12/19 05:45 INR, PTT INR 1.20 (0.83-1.09) H 06/08/19 01:30 Assessment/Plan - Problems (1) SOB (shortness of breath) Assessment/Plan: -CTA Chest:with right lung collapse and large right pleural effusion. No evidence of PE. 5 cm RUL mass with hilar and mediastinal adenopathy, left adrenal enlargement, T3 vertebral body metastases, paravertebral mass, foraminal obstruction by the mass at T2-3, displacement of the cord, left cerebellar 0.7cm and rt. occipital metastasis. -Chest Tube placed -Now on Vent -Pulmonary on board -O2 to keep SpO2>90% -Bronchodilators -IR to place chest drain -Xarelto on hold -Lovenox 80 mg SQ BID for dvt ppx for afib Problems reviewed: Yes Code(s): R06.02 - SHORTNESS OF BREATH (2) Collapse of right lung Problems reviewed: Yes Code(s): J98.11 - ATELECTASIS (3) Pleural effusion Problems reviewed: Yes -Chest Tube in place -Pulmonary on board Code(s): J90 - PLEURAL EFFUSION, NOT ELSEWHERE CLASSIFIED (4) Lung cancer Assessment/Plan: -Oncology consult -Overall poor prognosis=Palliative care Problems reviewed: Yes Code(s): C34.90 - MALIGNANT NEOPLASM OF UNSP PART OF UNSP BRONCHUS OR LUNG (5) Metastatic disease Problems reviewed: Yes Code(s): C79.9 - SECONDARY MALIGNANT NEOPLASM OF UNSPECIFIED SITE (6) Diabetes Assessment/Plan: -recheck A1c -BGM AC HS Problems reviewed: Yes Code(s): E11.9 - TYPE 2 DIABETES MELLITUS WITHOUT COMPLICATIONS (7) Schizophrenia Assessment/Plan: -Continue Abilify Problems reviewed: Yes Code(s): F20.9 - SCHIZOPHRENIA, UNSPECIFIED (8) Afib Assessment/Plan: -Rapid now on drip -chronic -cardiology consult -Lovenox 80 mg SQ BID for afib Problems reviewed: Yes Code(s): I48.91 - UNSPECIFIED ATRIAL FIBRILLATION Qualifiers: Atrial fibrillation type: persistent (9) Hypotension Assessment/Plan: -Hold Lisinopril -Cardiology consult Problems reviewed: Yes Code(s): I95.9 - HYPOTENSION, UNSPECIFIED
[2019-06-12] MEDS ORDERED: DEXTROSE 5%-WATER - 50 ML IVPB ONE ×2 (09:47→17:11)
[2019-06-12] MEDS ORDERED: PIPERACILLIN/TAZOBACTAM 3.375 GM VIAL IVPB ONE ×2 (09:47→17:11)
[2019-06-12] MEDS: CHOLECALCIFEROL (VIT D3) 1,000 UNIT (25 MCG) TABLET PO SCH (09:50)
[2019-06-12] MEDS: AMIODARONE HCL 200 MG TABLET NGT SCH (09:50)
[2019-06-12] MEDS: ENOXAPARIN NA (PORCINE) 80 MG/0.8 ML DISP.SYRIN SQ SCH ×2 (09:50→22:41)
[2019-06-12] MEDS: ARIPiprazole 5 MG TABLET PO SCH (09:50)
[2019-06-12] MEDS: CALCIUM (OYSTER SHELL) 500 MG TABLET (FP) PO SCH (09:51)
--- NOTE | 2019-06-12 09:51 | PN ---
Progress Note, Physician History of Present Illness: Sedated and intubated for acute respiratory failure AC Mode of vent, 50% FiO2 PEEP 5, off pressors, remains in rate-controlled atrial fibrillation on oral Amiodarone. - Current Medication List Current Medications: Active Medications Acetaminophen (Tylenol -) 650 mg PO Q6H PRN PRN Reason: PAIN LEVEL 1-5 Albuterol Sulfate (Ventolin 0.083% Nebulizer Soln -) 1 amp NEB RQID PRN PRN Reason: SHORT OF BREATH/WHEEZING Amiodarone HCl (Cordarone -) 200 mg NGT DAILY [facility] Last Admin: 06/12/19 09:50 Dose: 200 mg Aripiprazole (Abilify) 5 mg PO DAILY [facility] Last Admin: 06/12/19 09:50 Dose: 5 mg Calcium Carbonate (Os-Davey 500mg -) 500 mg PO DAILY [facility] Last Admin: 06/12/19 09:51 Dose: 500 mg Cholecalciferol (Vitamin D3 -) 2,000 unit PO DAILY [facility] Last Admin: 06/12/19 09:50 Dose: 2,000 unit Diltiazem HCl (Cardizem -) 30 mg PO TID [facility] Last Admin: 06/12/19 07:09 Dose: Not Given Enoxaparin Sodium (Lovenox -) 80 mg SQ BID [facility] Last Admin: 06/12/19 09:50 Dose: 80 mg Piperacillin Sod/Tazobactam (Sod 3.375 gm/ Dextrose) 50 mls @ 100 mls/hr IVPB Q8H-IV [facility]; Protocol Last Admin: 06/12/19 09:51 Dose: 100 mls/hr Norepinephrine Bitartrate 8, (000 mcg/ Sodium Chloride) 500 mls @ 18.75 mls/hr IV TITR [facility]; Protocol Last Admin: 06/12/19 06:46 Dose: Not Given Vasopressin 50 units/ Sodium (Chloride) 100 mls @ 4 mls/hr IVPB ASDIR [facility]; Protocol Last Admin: 06/11/19 17:49 Dose: Not Given Propofol (Diprivan -) 1,000,000 mcg in 100 mls @ 2.49 mls/hr IVPB TITR [facility]; Protocol Last Admin: 06/12/19 06:46 Dose: Not Given Insulin Aspart (Novolog Vial Sliding Scale -) 1 vial SQ ACHS [facility]; Protocol Last Admin: 06/12/19 06:46 Dose: Not Given - Objective Vital Signs: Vital Signs Temperature 98.5 F 06/12/19 04:00 Pulse Rate 126 H 06/12/19 08:15 Respiratory Rate 14 06/12/19 08:15 Blood Pressure 108/76 06/12/19 08:00 O2 Sat by Pulse Oximetry (%) 100 06/12/19 08:15 Constitutional: Yes: No Distress, Calm, Thin Neck: Yes: Supple Cardiovascular: Yes: Pulse Irregular Respiratory: Yes: Intubated, Mechanically Ventilated, Other (Right chest tube in place) Gastrointestinal: Yes: Normal Bowel Sounds, Soft Edema: No Labs: CBC, BMP 06/12/19 05:45 06/12/19 05:45 INR, PTT INR 1.20 (0.83-1.09) H 06/08/19 01:30 - ....Imaging Chest X-ray: Report Reviewed (Complete right opacification) EKG: Report Reviewed (Tele: Afib) Assessment/Plan - Problems (1) Pleural effusion Code(s): J90 - PLEURAL EFFUSION, NOT ELSEWHERE CLASSIFIED (2) Lung cancer Assessment/Plan: lung CA with mets to the brain. CT chest: collapsed right lung, with pleural effusion of the entire right hemithorax post chest tube, likely malignant r/o post-obstructive PNA Large masses (right lung; upper vertebrae) SVC occluded. No PE. Code(s): C34.90 - MALIGNANT NEOPLASM OF UNSP PART OF UNSP BRONCHUS OR LUNG (3) Afib Assessment/Plan: Amio gtt for rate control, On Lovenox 80 bid Code(s): I48.91 - UNSPECIFIED ATRIAL FIBRILLATION Qualifiers: Atrial fibrillation type: persistent (4) Anemia Code(s): D64.9 - ANEMIA, UNSPECIFIED Qualifiers: Anemia type: unspecified type Qualified Code(s): D64.9 - Anemia, unspecified (5) CAD (coronary artery disease) Code(s): I25.10 - ATHSCL HEART DISEASE OF [place] CORONARY ARTERY W/O ANG PCTRS (6) Hypotension resolved weaned off Levophed gtt for MAP>65 mmHg Code(s): I95.9 - HYPOTENSION, UNSPECIFIED (7) Schizophrenia Code(s): F20.9 - SCHIZOPHRENIA, UNSPECIFIED 1. Acute hypoxic respiratory failure related to complete right lung collapse/ large pleural effusion post chest tube insertion 2. Hypotension, probable sepsis syndrome on pressors, probable post obstructive pneumonia 3. Metastatic lung carcinoma, brain mets 4. Persistent atrial fibrillation with RVR on Amiodarone therapy, [id number] score of 5 currntly off of A/C 5. Coronary artery disease with evidence of demand ischemia no clinical angina pectoris 6. Diastolic left ventricular dysfunction with clinical class 0 [place] [employer] classification left ventricular failure 7. Hypertensive cardiovascular disease, currently hypotensive as noted above 8. Diabetes mellitus 9. Hypercholesterolemia 10. History of cerebrovascular disease 11. History of schizophrenia 12. History of ataxia 13. History of osteomyelitis 14. Anemia PLAN: 1. Continue Amiodarone 200 qd assist with rate control 2. Weaned off pressors/hemodyanamics permitting 3. Recommend once off of pressor therapy to initiate Lopressor therapy/ hemodyanamics permitting 4. Continue Cardizem 30 tid hemodynamics permitting 5. Continue A/C therapy with Lovenox 80 bid unless it is absolutely contraindicated with caution and close monitoring of CBC/Hg level, maintain hemoglobin equal or greater than 8.0 6. Utilize diuretic therapy/Lasix therapy/as needed with close monitoring of renal function and electrolytes 7. Antibiotics as per the primary team 8. Enteral feeds 9. Overall poor prognosis, palliative care input appreciated
[2019-06-12] MEDS ORDERED: AMIODARONE HCL 200 MG TABLET NGT SCH (10:00)
--- NOTE | 2019-06-12 11:57 | PN ---
Progress Note, Physician History of Present Illness: REMAINS ON VENTILATOR NO ACUTE DISTRESS AFEBRILE + TRACHEAL SECRETIONS CHEST TUBE IN PLACE BC, PLEURAL FLUID C/S NO GROWTH CXR OPACIFIED R HEMITHORAX - Current Medication List Current Medications: Active Medications Acetaminophen (Tylenol -) 650 mg PO Q6H PRN PRN Reason: PAIN LEVEL 1-5 Albuterol Sulfate (Ventolin 0.083% Nebulizer Soln -) 1 amp NEB RQID PRN PRN Reason: SHORT OF BREATH/WHEEZING Amiodarone HCl (Cordarone -) 200 mg NGT DAILY [facility] Last Admin: 06/12/19 09:50 Dose: 200 mg Aripiprazole (Abilify) 5 mg PO DAILY [facility] Last Admin: 06/12/19 09:50 Dose: 5 mg Calcium Carbonate (Os-Davey 500mg -) 500 mg PO DAILY [facility] Last Admin: 06/12/19 09:51 Dose: 500 mg Cholecalciferol (Vitamin D3 -) 2,000 unit PO DAILY [facility] Last Admin: 06/12/19 09:50 Dose: 2,000 unit Diltiazem HCl (Cardizem -) 30 mg PO TID [facility] Last Admin: 06/12/19 07:09 Dose: Not Given Enoxaparin Sodium (Lovenox -) 80 mg SQ BID [facility] Last Admin: 06/12/19 09:50 Dose: 80 mg Piperacillin Sod/Tazobactam (Sod 3.375 gm/ Dextrose) 50 mls @ 100 mls/hr IVPB Q8H-IV [facility]; Protocol Last Admin: 06/12/19 09:51 Dose: 100 mls/hr Norepinephrine Bitartrate 8, (000 mcg/ Sodium Chloride) 500 mls @ 18.75 mls/hr IV TITR [facility]; Protocol Last Admin: 06/12/19 06:46 Dose: Not Given Vasopressin 50 units/ Sodium (Chloride) 100 mls @ 4 mls/hr IVPB ASDIR REPLACED [facility]; Protocol Last Admin: 06/11/19 17:49 Dose: Not Given Propofol (Diprivan -) 1,000,000 mcg in 100 mls @ 2.49 mls/hr IVPB TITR [facility]; Protocol Last Admin: 06/12/19 06:46 Dose: Not Given Insulin Aspart (Novolog Vial Sliding Scale -) 1 vial SQ ACHS [facility]; Protocol Last Admin: 06/12/19 06:46 Dose: Not Given - Objective Vital Signs: Vital Signs Temperature 98.3 F 06/12/19 10:00 Pulse Rate 122 H 06/12/19 10:00 Respiratory Rate 18 06/12/19 10:00 Blood Pressure 91/76 06/12/19 10:00 O2 Sat by Pulse Oximetry (%) 100 06/12/19 09:00 Constitutional: Yes: No Distress Cardiovascular: Yes: Regular Rate and Rhythm, S1, S2 Respiratory: Yes: Diminished Gastrointestinal: Yes: Normal Bowel Sounds, Soft. No: Tenderness Edema: Yes Labs: CBC, BMP 06/12/19 05:45 06/12/19 05:45 INR, PTT INR 1.20 (0.83-1.09) H 06/08/19 01:30 Assessment/Plan RESP FAILURE PLEURAL EFFUSION ? PNEUMONIA +BC LIKELY CONTAMINANT LEUKOCYTOSIS METASTATIC CA REPEAT BC, PLEURAL FLUID C/S NO GROWTH CONTINUE EMPIRIC ZOSYN
--- NOTE | 2019-06-12 12:08 | PN ---
Teaching Attending Note Name of Resident: Sina Cavazos ATTENDING PHYSICIAN STATEMENT I saw and evaluated the patient. I reviewed the resident's note and discussed the case with the resident. I agree with the resident's findings and plan as documented. SUBJECTIVE: Patient seen and examined in the ICU. Remains intubated and sedated. AC Mode of vent, 60% FiO2. Levophed for hemodynamic support. Continued serosanginous drainage from the right pleural catheter. CXR: right complete opacification Intake & Output 06/09/19 06/10/19 06/11/19 06/12/19 23:59 23:59 23:59 23:59 Intake Total 4849.0 2149.0 1238 655 Output Total 5500 1350 2050 800 Balance -651.0 799.0 -812 -145 Weight 183 lb 181 lb 6.4 oz 188 lb 11.2 oz 187 lb 8 oz Last Vital Signs Temp Pulse Resp BP Pulse Ox 98.3 F 122 H 18 82/59 L 100 06/12/19 10:00 06/12/19 11:56 06/12/19 11:56 06/12/19 11:56 06/12/19 09:00 Active Medications Acetaminophen (Tylenol -) 650 mg PO Q6H PRN PRN Reason: PAIN LEVEL 1-5 Albuterol Sulfate (Ventolin 0.083% Nebulizer Soln -) 1 amp NEB RQID PRN PRN Reason: SHORT OF BREATH/WHEEZING Amiodarone HCl (Cordarone -) 200 mg NGT DAILY [facility] Last Admin: 06/12/19 09:50 Dose: 200 mg Aripiprazole (Abilify) 5 mg PO DAILY [facility] Last Admin: 06/12/19 09:50 Dose: 5 mg Calcium Carbonate (Os-Davey 500mg -) 500 mg PO DAILY [facility] Last Admin: 06/12/19 09:51 Dose: 500 mg Cholecalciferol (Vitamin D3 -) 2,000 unit PO DAILY [facility] Last Admin: 06/12/19 09:50 Dose: 2,000 unit Diltiazem HCl (Cardizem -) 30 mg PO TID [facility] Last Admin: 06/12/19 07:09 Dose: Not Given Enoxaparin Sodium (Lovenox -) 80 mg SQ BID [facility] Last Admin: 06/12/19 09:50 Dose: 80 mg Piperacillin Sod/Tazobactam (Sod 3.375 gm/ Dextrose) 50 mls @ 100 mls/hr IVPB Q8H-IV [facility]; Protocol Last Admin: 06/12/19 09:51 Dose: 100 mls/hr Norepinephrine Bitartrate 8, (000 mcg/ Sodium Chloride) 500 mls @ 18.75 mls/hr IV TITR [facility]; Protocol Last Admin: 06/12/19 06:46 Dose: Not Given Vasopressin 50 units/ Sodium (Chloride) 100 mls @ 4 mls/hr IVPB ASDIR [facility]; Protocol Last Admin: 06/11/19 17:49 Dose: Not Given Propofol (Diprivan -) 1,000,000 mcg in 100 mls @ 2.49 mls/hr IVPB TITR [facility]; Protocol Last Admin: 06/12/19 06:46 Dose: Not Given Insulin Aspart (Novolog Vial Sliding Scale -) 1 vial SQ ACHS [facility]; Protocol Last Admin: 06/12/19 11:55 Dose: Not Given Constitutional: Yes: Intubated and sedated Eyes: Yes: WNL, Conjunctiva Clear HENT: Yes: WNL, Atraumatic, Normocephalic Neck: Yes: WNL, Supple, Trachea Midline Cardiovascular: Yes: Tachycardia, Pulse Irregular Respiratory: Yes: Vented, Diminished on the Right, right CT Gastrointestinal: Yes: WNL, Normal Bowel Sounds, Soft ...Rectal Exam: Yes: Deferred Renal/: Yes: WNL Breast(s): Yes: WNL Musculoskeletal: Yes: WNL Extremities: Yes: WNL Edema: No Peripheral Pulses WNL: Yes Neurological: Yes: Sedated ...Motor Strength: WNL Psychiatric: Yes: Sedated Labs: Laboratory Results - last 24 hr 06/09/19 06/09/19 06/11/19 05:55 05:55 16:36 WBC RBC Hgb Hct MCV MCH MCHC RDW Plt Count MPV Absolute Neuts (auto) Neutrophils % Lymphocytes % Monocytes % Eosinophils % Basophils % Nucleated RBC % Sodium Potassium Chloride Carbon Dioxide Anion Gap BUN Creatinine Est GFR (CKD-EPI)AfAm Est GFR (CKD-EPI)NonAf POC Glucometer 120 Random Glucose Calcium Phosphorus Magnesium Total Bilirubin AST ALT Alkaline Phosphatase Total Protein Albumin Fluid Total Protein 3.3 Body Fluid LDH Source 148 06/11/19 06/12/19 06/12/19 21:00 05:45 05:45 WBC 14.6 H RBC 4.10 Hgb 10.7 L Hct 33.1 L MCV 80.8 MCH 26.2 MCHC 32.5 RDW 21.8 H Plt Count 218 MPV 7.9 Absolute Neuts (auto) 12.7 H Neutrophils % 86.4 H Lymphocytes % 4.4 L D Monocytes % 5.5 Eosinophils % 3.4 D Basophils % 0.3 Nucleated RBC % 0 Sodium 141 Potassium 3.6 Chloride 105 Carbon Dioxide 29 Anion Gap 7 L BUN 10.5 Creatinine 0.5 L Est GFR (CKD-EPI)AfAm 130.88 Est GFR (CKD-EPI)NonAf 112.92 POC Glucometer 137 Random Glucose 141 H Calcium 7.4 L Phosphorus 2.0 L Magnesium 2.4 Total Bilirubin 1.0 AST 12 L ALT 14 Alkaline Phosphatase 93 Total Protein 5.3 L Albumin 1.9 L Fluid Total Protein Body Fluid LDH Source 06/12/19 06/12/19 06/12/19 05:56 06:01 11:48 WBC RBC Hgb Hct MCV MCH MCHC RDW Plt Count MPV Absolute Neuts (auto) Neutrophils % Lymphocytes % Monocytes % Eosinophils % Basophils % Nucleated RBC % Sodium Potassium Chloride Carbon Dioxide Anion Gap BUN Creatinine Est GFR (CKD-EPI)AfAm Est GFR (CKD-EPI)NonAf POC Glucometer 169 136 157 Random Glucose Calcium Phosphorus Magnesium Total Bilirubin AST ALT Alkaline Phosphatase Total Protein Albumin Fluid Total Protein Body Fluid LDH Source Assessment/Plan -Acute HYPOXIC RESP FAIL 2/2 R Pleural effusion m/l malignant -Metastatic Non small cell lung CA -HTN -HLD -DM -A-Fib -CAD -SCHIZO PLAN: -AC Mode of vent, wean FiO2 -Bronchodilators -Pressors to maintain MAP > 65 -R Chest Tube to suction drain -Hold all anti-HTN meds -Rate Control -FS's -SSI -Strict I's & O's -Trend BUN/Cr -Replete e-lytes -SCDs -GI ppx -Requires ICU monitoring Overall prognosis is grave Dr Luna Critical care time spent in reviewing chart, evaluating patient and formulating plan - 36 minutes.
--- NOTE | 2019-06-12 12:54 | PN ---
Physical Exam: SUBJECTIVE: Patient seen and examined Trevino removed yesterday and switched to condom catheter; required straight cath for urine retention. Satting 100% on vent. Continues to have chest tube output. Continues to need RT for thick mucus secretions OBJECTIVE: Vital Signs Period Temp Pulse Resp BP Sys/Stock Pulse Ox Last 24 Hr 98.3 F-99.2 F 87-129 14-22 82-114/59-82 100-100 GENERAL: sedated on propofol HEAD: NC/AT EYES: sclera anicteric, conjunctiva clear. No ptosis. ENT: Ears normal, nares patent, moist mucous membranes. NECK: Trachea midline, full range of motion, supple. LUNGS: Diminished BS to the Right. Right chest w/ serous output. Vented 450, 14 , 5, 50% HEART: irreg, tachy, no notable murmurs ABDOMEN: Soft, nontender, nondistended, normoactive bowel sounds EXTREMITIES: 2+ pulses, warm, well-perfused, mild nonpitting peripheral edema. NEUROLOGICAL: intubated and sedation SKIN: Warm, dry, normal turgor, no rashes or lesions noted Laboratory Results - last 24 hr 06/09/19 06/09/19 06/11/19 05:55 05:55 16:36 WBC RBC Hgb Hct MCV MCH MCHC RDW Plt Count MPV Absolute Neuts (auto) Neutrophils % Lymphocytes % Monocytes % Eosinophils % Basophils % Nucleated RBC % Sodium Potassium Chloride Carbon Dioxide Anion Gap BUN Creatinine Est GFR (CKD-EPI)AfAm Est GFR (CKD-EPI)NonAf POC Glucometer 120 Random Glucose Calcium Phosphorus Magnesium Total Bilirubin AST ALT Alkaline Phosphatase Total Protein Albumin Fluid Total Protein 3.3 Body Fluid LDH Source 148 06/11/19 06/12/19 06/12/19 21:00 05:45 05:45 WBC 14.6 H RBC 4.10 Hgb 10.7 L Hct 33.1 L MCV 80.8 MCH 26.2 MCHC 32.5 RDW 21.8 H Plt Count 218 MPV 7.9 Absolute Neuts (auto) 12.7 H Neutrophils % 86.4 H Lymphocytes % 4.4 L D Monocytes % 5.5 Eosinophils % 3.4 D Basophils % 0.3 Nucleated RBC % 0 Sodium 141 Potassium 3.6 Chloride 105 Carbon Dioxide 29 Anion Gap 7 L BUN 10.5 Creatinine 0.5 L Est GFR (CKD-EPI)AfAm 130.88 Est GFR (CKD-EPI)NonAf 112.92 POC Glucometer 137 Random Glucose 141 H Calcium 7.4 L Phosphorus 2.0 L Magnesium 2.4 Total Bilirubin 1.0 AST 12 L ALT 14 Alkaline Phosphatase 93 Total Protein 5.3 L Albumin 1.9 L Fluid Total Protein Body Fluid LDH Source 06/12/19 06/12/19 06/12/19 05:56 06:01 11:48 WBC RBC Hgb Hct MCV MCH MCHC RDW Plt Count MPV Absolute Neuts (auto) Neutrophils % Lymphocytes % Monocytes % Eosinophils % Basophils % Nucleated RBC % Sodium Potassium Chloride Carbon Dioxide Anion Gap BUN Creatinine Est GFR (CKD-EPI)AfAm Est GFR (CKD-EPI)NonAf POC Glucometer 169 136 157 Random Glucose Calcium Phosphorus Magnesium Total Bilirubin AST ALT Alkaline Phosphatase Total Protein Albumin Fluid Total Protein Body Fluid LDH Source Active Medications Generic Name Dose Route Start Last Admin Trade Name Freq PRN Reason Stop Dose Admin Acetaminophen 650 mg 06/09/19 05:59 Tylenol - PO Q6H PRN PAIN LEVEL 1-5 Albuterol Sulfate 1 amp 06/09/19 05:59 Ventolin 0.083% Nebulizer Soln - NEB RQID PRN SHORT OF BREATH/WHEEZING Amiodarone HCl 200 mg 06/12/19 10:00 06/12/19 09:50 Cordarone - NGT 200 mg DAILY [facility] Administration Aripiprazole 5 mg 06/09/19 10:00 06/12/19 09:50 Abilify PO 5 mg DAILY [facility] Administration Calcium Carbonate 500 mg 06/09/19 10:00 06/12/19 09:51 Os-Davey 500mg - PO 500 mg DAILY [facility] Administration Cholecalciferol 2,000 unit 06/09/19 10:00 06/12/19 09:50 Vitamin D3 - PO 2,000 unit DAILY [facility] Administration Diltiazem HCl 30 mg 06/08/19 14:00 06/12/19 07:09 Cardizem - PO Not Given TID [facility] Enoxaparin Sodium 80 mg 06/09/19 10:00 06/12/19 09:50 Lovenox - SQ 80 mg BID [facility] Administration Piperacillin Sod/Tazobactam 50 mls @ 100 mls/hr 06/09/19 15:00 06/12/19 09:51 Sod 3.375 gm/ Dextrose IVPB 100 mls/hr Q8H-IV [facility] Administration Protocol Norepinephrine Bitartrate 8, 500 mls @ 18.75 mls/hr 06/09/19 16:15 06/12/19 06:46 000 mcg/ Sodium Chloride IV Not Given TITR [facility] Protocol 5 MCG/MIN Vasopressin 50 units/ Sodium 100 mls @ 4 mls/hr 06/09/19 16:45 06/11/19 17:49 Chloride IVPB Not Given ASDIR [facility] Protocol 2 UNITS/HR Propofol 1,000,000 mcg in 100 mls @ 2.49 mls/hr 06/09/19 22:00 06/12/19 06:46 Diprivan - IVPB Not Given TITR [facility] Protocol 5 MCG/KG/MIN Insulin Aspart 1 vial 06/09/19 07:00 06/12/19 11:55 Novolog Vial Sliding Scale - SQ Not Given ACHS [facility] Protocol ASSESSMENT/PLAN: 68 y/o M from [facility] with hx of HTN, HLD, A-Fib on AC, DM, CAD, Schizo, & recently diagnosed non small cell lung CA w/ brain and T-spine mets (Of note, tumor exhibits PDL-1 expression) presented on 06/[address] chest reveals massive right sided pleural effusion with compressive atelectasis vs compressive malignancy s/p right chest tube placement. Intubated on 06/09/19 for desaturation despite BiPaP and ABG showing hypercapnic respir failure Neuro: - sedated, intubated on propofol - at risk for ICU-acquired delirium CV: - MAPs 60-80s -> curently on levo 4, wean as tolerated - afib HR 120s-130s; now on po amio 200mg in addition to po dilt Respiratory: - right sided effusion likely malignant with compressive atelectasis vs compressive malignancy - s/p chest tube; will monitor I&Os - ventilated: 450, 14, 5, 50% GI: - NPO - tube feeds started last night; tolerating well and maintaining sats without aspiration events Renal: - Cr 0.5 - urinary retention; will monitor UOP and reinsert trevino if needed ID: > BCX(06/08/19): coag-neg staph; Gram positive bacili - positive BCx x1 with staph coag negative; Dr Littlejohn consulted, continue zosyn - repeat BCx with no growth at 3 days Heme/Onc: - WBC 17.1 -> 15.5 -> 14.6, on zosyn; will continue to trend - Onc consulted regarding cancer, poor prognosis - palliative (Zachary) consulted for [facility]: - replete lytes prn - NPO - RIJ, right lateral chest tube, ETT, PIV x2 Dispo: ICU team will continue to follow; NH and assisted living contacted and patient with no known relatives or POA; patient submitted to ethics committee for review Visit type - Emergency Visit Emergency Visit: No - New Patient This patient is new to me today: No - Critical Care Critical Care patient: Yes Total Critical Care Time (in minutes): 40 Critical Care Statement: The care of this patient involved high complexity decision making to prevent further life threatening deterioration of the patient 's condition and/or to evaluate & treat vital organ system(s) failure or risk of failure. ATTENDING PHYSICIAN STATEMENT I saw and evaluated the patient. I reviewed the resident's note and discussed the case with the resident. I agree with the resident's findings and plan as documented. SUBJECTIVE: OBJECTIVE: ASSESSMENT AND PLAN:
[2019-06-12] MEDS ORDERED: SODIUM PHOSPHATE - 30 MM in SODIUM CHLORIDE 250 ML IVPB ONE (12:55)
[2019-06-12] MEDS ORDERED: POTASSIUM PHOSPHATE 30 MM in SODIUM CHLORIDE 250 ML IVPB ONE (14:00)
[2019-06-12] MEDS ORDERED: PT OWN MED DRAWER 7, Y5N ONE (15:29)
[2019-06-12] MEDS ORDERED: NOREPINEPHRINE BITARTRATE 4 MG/4 ML ML IV ONE (17:10)
[2019-06-12] MEDS: VASOPRESSIN 50 UNITS in SODIUM CHLORIDE 97.5 ML IVPB SCH (17:20)
[2019-06-13] MEDS ORDERED: DEXTROSE 5%-WATER - 50 ML IVPB ONE ×2 (00:55→09:01)
[2019-06-13] MEDS ORDERED: PIPERACILLIN/TAZOBACTAM 3.375 GM VIAL IVPB ONE ×3 (00:55→16:52)
[2019-06-13] MEDS: INSULIN SLIDING SCALE (NOVOLOG) 1 VIAL SQ SCH ×5 (01:03→21:40)
[2019-06-13] MEDS: PIPERACILLIN/TAZOB 3.375 GM 3.375 GM in DEXTROSE 5%-WATER - 50 ML IVPB SCH ×3 (01:04→17:26)
--- NOTE | 2019-06-13 04:41 | PN ---
Progress Note (short form) - Note Progress Note: PAtient seen and examined Intubated Afebrile, tachycardic, mildly hypotensive Cor: RSR, No murmurs, No gallops Lungs: decreased at bases Abd: Soft, Normal bowel sounds, No organomegaly Ext:No significant edema LAbs/MEds reviewed A/P 68 y/opatient with HTN, afib, CAD, DM, HLD schizophrenia, with newly diagnosed lung cancer RUL mass lesion 5cm with hilar and mediastinal adenopathy. Lt. Adrenal enlargement Poorly differentiated carcinoma. PDL1 > 90% T3 vertebral body metastases, paravertebral mass, foraminal obstruction by the mass at T2-3, displacement of the cord Left cerebellar 0.7cm and rt. occipital metastasis next gen sequencing --no actionable mutation s/p RT to T spine and RUL mass Was seen in the office but given his poor insight into his disease process and treament , significant memory impairment, his performance status of 3 and his active refusal systemic treament was deferred . Given stage IV lung cancer and poor performance status recommend palliative care Discussed with Dr. Luna Will discuss with primary team
[2019-06-13 06:44] LABS: BASO % 0.4 % (0-2.0); EOS % 3.1 % (0-4.5); HEMATOCRIT 32.7 % (35.4-49); HEMOGLOBIN 10.6 GM/dL (11.7-16.9); LYMPH % 5.8 % (8-40); MCH 26.4 pg (25.7-33.7); MCHC 32.4 g/dl (32.0-35.9); MEAN CELL VOLUME 81.4 fl (80-96); MEAN PLT VOLUME 8.4 fl (7.5-11.1); MONO % 6.6 % (3.8-10.2); NEUT % 84.1 % (42.8-82.8); PLATELET COUNT 223 K/MM3 (134-434); RBC 4.02 M/mm3 (4.00-5.60); WHITE BLOOD COUNT 16.4 K/mm3 (4.0-10.0)
[2019-06-13] MEDS: dilTIAZem HCL 30 MG TABLET (FP) PO SCH ×3 (06:52→21:30)
[2019-06-13 07:13] LABS: ALBUMIN 1.8 g/dl (3.4-5.0); BILIRUBIN,TOTAL 0.7 mg/dL (0.2-1); BLOOD UREA NITROGEN 10.5 mg/dL (7-18); CALCIUM 7.4 mg/dL (8.5-10.1); CREATININE 0.5 mg/dL (0.55-1.3); MAGNESIUM 2.3 mg/dL (1.8-2.4); PHOSPHOROUS 2.3 mg/dL (2.5-4.9); TOT PROT 5.4 g/dl (6.4-8.2)
--- NOTE | 2019-06-13 08:12 | PN ---
Progress Note, Physician - Current Medication List Current Medications: Active Medications Acetaminophen (Tylenol -) 650 mg PO Q6H PRN PRN Reason: PAIN LEVEL 1-5 Albuterol Sulfate (Ventolin 0.083% Nebulizer Soln -) 1 amp NEB RQID PRN PRN Reason: SHORT OF BREATH/WHEEZING Amiodarone HCl (Cordarone -) 200 mg NGT DAILY [facility] Last Admin: 06/12/19 09:50 Dose: 200 mg Aripiprazole (Abilify) 5 mg PO DAILY [facility] Last Admin: 06/12/19 09:50 Dose: 5 mg Calcium Carbonate (Os-Davey 500mg -) 500 mg PO DAILY [facility] Last Admin: 06/12/19 09:51 Dose: 500 mg Cholecalciferol (Vitamin D3 -) 2,000 unit PO DAILY [facility] Last Admin: 06/12/19 09:50 Dose: 2,000 unit Diltiazem HCl (Cardizem -) 30 mg PO TID [facility] Last Admin: 06/13/19 06:52 Dose: 30 mg Enoxaparin Sodium (Lovenox -) 80 mg SQ BID [facility] Last Admin: 06/12/19 22:41 Dose: 80 mg Piperacillin Sod/Tazobactam (Sod 3.375 gm/ Dextrose) 50 mls @ 100 mls/hr IVPB Q8H-IV [facility]; Protocol Last Admin: 06/13/19 01:04 Dose: 100 mls/hr Norepinephrine Bitartrate 8, (000 mcg/ Sodium Chloride) 500 mls @ 18.75 mls/hr IV TITR [facility]; Protocol Last Admin: 06/12/19 17:19 Dose: 4 mcg/min, 15 mls/hr Vasopressin 50 units/ Sodium (Chloride) 100 mls @ 4 mls/hr IVPB ASDIR [facility]; Protocol Last Admin: 06/12/19 17:20 Dose: Not Given Propofol (Diprivan -) 1,000,000 mcg in 100 mls @ 2.49 mls/hr IVPB TITR [facility]; Protocol Last Admin: 06/12/19 22:42 Dose: 20 mcg/kg/min, 9.961 mls/hr Insulin Aspart (Novolog Vial Sliding Scale -) 1 vial SQ ACHS [facility]; Protocol Last Admin: 06/13/19 06:53 Dose: Not Given - Objective Vital Signs: Vital Signs Temperature 99.2 F 06/13/19 06:00 Pulse Rate 115 H 06/13/19 06:00 Respiratory Rate 18 06/13/19 06:00 Blood Pressure 117/85 06/13/19 06:00 O2 Sat by Pulse Oximetry (%) 99 06/12/19 20:21 Cardiovascular: Yes: S1, S2 Respiratory: Yes: Mechanically Ventilated Gastrointestinal: Yes: Normal Bowel Sounds, Soft Labs: CBC, BMP 06/13/19 05:20 06/13/19 05:20 INR, PTT INR 1.20 (0.83-1.09) H 06/08/19 01:30 Assessment/Plan - Problems (1) SOB (shortness of breath) Assessment/Plan: -CTA Chest:with right lung collapse and large right pleural effusion. No evidence of PE. 5 cm RUL mass with hilar and mediastinal adenopathy, left adrenal enlargement, T3 vertebral body metastases, paravertebral mass, foraminal obstruction by the mass at T2-3, displacement of the cord, left cerebellar 0.7cm and rt. occipital metastasis. -Chest Tube placed -Now on Vent -Pulmonary on board -O2 to keep SpO2>90% -Bronchodilators -IR to place chest drain -Xarelto on hold -Lovenox 80 mg SQ BID for dvt ppx for afib Problems reviewed: Yes Code(s): R06.02 - SHORTNESS OF BREATH (2) Collapse of right lung Problems reviewed: Yes Code(s): J98.11 - ATELECTASIS (3) Pleural effusion Problems reviewed: Yes -Chest Tube in place -Pulmonary on board Code(s): J90 - PLEURAL EFFUSION, NOT ELSEWHERE CLASSIFIED (4) Lung cancer Assessment/Plan: -Oncology consult -Overall poor prognosis=Palliative care Problems reviewed: Yes Code(s): C34.90 - MALIGNANT NEOPLASM OF UNSP PART OF UNSP BRONCHUS OR LUNG (5) Metastatic disease Problems reviewed: Yes Code(s): C79.9 - SECONDARY MALIGNANT NEOPLASM OF UNSPECIFIED SITE (6) Diabetes Assessment/Plan: -recheck A1c -BGM AC HS Problems reviewed: Yes Code(s): E11.9 - TYPE 2 DIABETES MELLITUS WITHOUT COMPLICATIONS (7) Schizophrenia Assessment/Plan: -Continue Abilify Problems reviewed: Yes Code(s): F20.9 - SCHIZOPHRENIA, UNSPECIFIED (8) Afib Assessment/Plan: -Rapid now on drip -chronic -cardiology consult -Lovenox 80 mg SQ BID for afib Problems reviewed: Yes Code(s): I48.91 - UNSPECIFIED ATRIAL FIBRILLATION Qualifiers: Atrial fibrillation type: persistent (9) Hypotension Assessment/Plan: -Hold Lisinopril -Cardiology consult Problems reviewed: Yes Code(s): I95.9 - HYPOTENSION, UNSPECIFIED
[2019-06-13] MEDS ORDERED: NAPH,MB-DB/K PH,MBDB POWDER PACKET PO ONE (08:40)
[2019-06-13] MEDS: ENOXAPARIN NA (PORCINE) 80 MG/0.8 ML DISP.SYRIN SQ SCH ×2 (09:43→21:26)
[2019-06-13] MEDS: CHOLECALCIFEROL (VIT D3) 1,000 UNIT (25 MCG) TABLET PO SCH (09:44)
[2019-06-13] MEDS: ARIPiprazole 5 MG TABLET PO SCH (09:44)
[2019-06-13] MEDS: CALCIUM (OYSTER SHELL) 500 MG TABLET (FP) PO SCH (09:45)
[2019-06-13] MEDS: AMIODARONE HCL 200 MG TABLET NGT SCH (09:45)
[2019-06-13] MEDS ORDERED: PT OWN MED DRAWER 7, Y5N ONE (09:48)
--- NOTE | 2019-06-13 10:34 | PN ---
Progress Note, Physician History of Present Illness: Sedated and intubated for acute respiratory failure AC Mode of vent, 50% FiO2 PEEP 5, on Levophed gtt, remains in rate-controlled atrial fibrillation on oral Amiodarone. - Current Medication List Current Medications: Active Medications Acetaminophen (Tylenol -) 650 mg PO Q6H PRN PRN Reason: PAIN LEVEL 1-5 Albuterol Sulfate (Ventolin 0.083% Nebulizer Soln -) 1 amp NEB RQID PRN PRN Reason: SHORT OF BREATH/WHEEZING Amiodarone HCl (Cordarone -) 200 mg NGT DAILY [facility] Last Admin: 06/13/19 09:45 Dose: 200 mg Aripiprazole (Abilify) 5 mg PO DAILY [facility] Last Admin: 06/13/19 09:44 Dose: 5 mg Calcium Carbonate (Os-Davey 500mg -) 500 mg PO DAILY [facility] Last Admin: 06/13/19 09:45 Dose: 500 mg Cholecalciferol (Vitamin D3 -) 2,000 unit PO DAILY [facility] Last Admin: 06/13/19 09:44 Dose: 2,000 unit Diltiazem HCl (Cardizem -) 30 mg PO TID [facility] Last Admin: 06/13/19 06:52 Dose: 30 mg Enoxaparin Sodium (Lovenox -) 80 mg SQ BID [facility] Last Admin: 06/13/19 09:43 Dose: 80 mg Piperacillin Sod/Tazobactam (Sod 3.375 gm/ Dextrose) 50 mls @ 100 mls/hr IVPB Q8H-IV [facility]; Protocol Last Admin: 06/13/19 09:43 Dose: 100 mls/hr Norepinephrine Bitartrate 8, (000 mcg/ Sodium Chloride) 500 mls @ 18.75 mls/hr IV TITR [facility]; Protocol Last Admin: 06/12/19 17:19 Dose: 4 mcg/min, 15 mls/hr Vasopressin 50 units/ Sodium (Chloride) 100 mls @ 4 mls/hr IVPB [facility]IR [facility]; Protocol Last Admin: 06/12/19 17:20 Dose: Not Given Propofol (Diprivan -) 1,000,000 mcg in 100 mls @ 2.49 mls/hr IVPB TITR [facility]; Protocol Last Admin: 06/12/19 22:42 Dose: 20 mcg/kg/min, 9.961 mls/hr Insulin Aspart (Novolog Vial Sliding Scale -) 1 vial SQ [facility]; Protocol Last Admin: 06/13/19 06:53 Dose: Not Given - Objective Vital Signs: Vital Signs Temperature 99.1 F 06/13/19 10:00 Pulse Rate 102 H 06/13/19 10:00 Respiratory Rate 18 06/13/19 10:00 Blood Pressure 113/85 06/13/19 10:00 O2 Sat by Pulse Oximetry (%) 99 06/12/19 20:21 Constitutional: Yes: No Distress, Calm, Thin Neck: Yes: Supple Cardiovascular: Yes: Tachycardia, Pulse Irregular Respiratory: Yes: Intubated, Mechanically Ventilated, Other (Right chest tube in situ) Genitourinary: Yes: Ortega Present Edema: No Labs: CBC, BMP 06/13/19 05:20 06/13/19 05:20 INR, PTT INR 1.20 (0.83-1.09) H 06/08/19 01:30 Assessment/Plan - Problems (1) Pleural effusion Code(s): J90 - PLEURAL EFFUSION, NOT ELSEWHERE CLASSIFIED (2) Lung cancer Assessment/Plan: lung CA with mets to the brain. CT chest: collapsed right lung, with pleural effusion of the entire right hemithorax post chest tube, likely malignant r/o post-obstructive PNA Large masses (right lung; upper vertebrae) SVC occluded. No PE. Code(s): C34.90 - MALIGNANT NEOPLASM OF UNSP PART OF UNSP BRONCHUS OR LUNG (3) Afib Assessment/Plan: Amio gtt for rate control, On Lovenox 80 bid Code(s): I48.91 - UNSPECIFIED ATRIAL FIBRILLATION Qualifiers: Atrial fibrillation type: persistent (4) Anemia Code(s): D64.9 - ANEMIA, UNSPECIFIED Qualifiers: Anemia type: unspecified type Qualified Code(s): D64.9 - Anemia, unspecified (5) CAD (coronary artery disease) Code(s): I25.10 - ATHSCL HEART DISEASE OF [place] CORONARY ARTERY W/O ANG PCTRS (6) Hypotension resolved On Levophed gtt for MAP>65 mmHg Code(s): I95.9 - HYPOTENSION, UNSPECIFIED (7) Schizophrenia Code(s): F20.9 - SCHIZOPHRENIA, UNSPECIFIED 1. Acute hypoxic respiratory failure related to complete right lung collapse/ large pleural effusion post chest tube insertion 2. Hypotension, probable sepsis syndrome on pressors, probable post obstructive pneumonia 3. Metastatic lung carcinoma, brain mets 4. Persistent atrial fibrillation with RVR on Amiodarone therapy, [id number] score of 5 currntly off of A/C 5. Coronary artery disease with evidence of demand ischemia no clinical angina pectoris 6. Diastolic left ventricular dysfunction with clinical class 0 [place] [employer] classification left ventricular failure 7. Hypertensive cardiovascular disease, currently hypotensive as noted above 8. Diabetes mellitus 9. Hypercholesterolemia 10. History of cerebrovascular disease 11. History of schizophrenia 12. History of ataxia 13. History of osteomyelitis 14. Anemia PLAN: 1. Continue Amiodarone 200 qd assist with rate control 2. Wean pressors hemodyanamics permitting 3. Recommend once off of pressor therapy to initiate Lopressor therapy/ hemodyanamics permitting 4. AC Mode of vent, wean FiO2, Bronchodilators as needed, R Chest Tube to suction drain 5. Continue A/C therapy with Lovenox 80 bid unless it is absolutely contraindicated with caution and close monitoring of CBC/Hg level, maintain hemoglobin equal or greater than 8.0 6. Utilize diuretic therapy/Lasix therapy/as needed with close monitoring of renal function and electrolytes 7. Antibiotics as per the primary team 8. Enteral feeds 9. Overall poor prognosis, palliative care input appreciated
[2019-06-13] MEDS: PROPOFOL 1,000,000 MCG/100 ML VIAL IVPB SCH ×2 (13:00→21:25)
--- NOTE | 2019-06-13 13:31 | PN ---
Teaching Attending Note Name of Resident: Horacio Canales ATTENDING PHYSICIAN STATEMENT I saw and evaluated the patient. I reviewed the resident's note and discussed the case with the resident. I agree with the resident's findings and plan as documented. SUBJECTIVE: Patient seen and examined in the ICU. Remains intubated and sedated. AC Mode of vent. Continued serosanginous drainage from the right pleural catheter. CXR: right complete opacification Intake & Output 06/10/19 06/11/19 06/12/19 06/13/19 23:59 23:59 23:59 23:59 Intake Total 2149.0 1238 2240 1355 Output Total 1350 2050 2050 850 Balance 799.0 -812 190 505 Weight 181 lb 6.4 oz 188 lb 11.2 oz 187 lb 8 oz 183 lb 4 oz Last Vital Signs Temp Pulse Resp BP Pulse Ox 99 F 102 H 18 101/72 99 06/13/19 12:48 06/13/19 12:48 06/13/19 12:21 06/13/19 12:00 06/12/19 20:21 Active Medications Acetaminophen (Tylenol -) 650 mg PO Q6H PRN PRN Reason: PAIN LEVEL 1-5 Albuterol Sulfate (Ventolin 0.083% Nebulizer Soln -) 1 amp NEB RQID PRN PRN Reason: SHORT OF BREATH/WHEEZING Amiodarone HCl (Cordarone -) 200 mg NGT DAILY [facility] Last Admin: 06/13/19 09:45 Dose: 200 mg Aripiprazole (Abilify) 5 mg PO DAILY [facility] Last Admin: 06/13/19 09:44 Dose: 5 mg Calcium Carbonate (Os-Davey 500mg -) 500 mg PO DAILY [facility] Last Admin: 06/13/19 09:45 Dose: 500 mg Cholecalciferol (Vitamin D3 -) 2,000 unit PO DAILY [facility] Last Admin: 06/13/19 09:44 Dose: 2,000 unit Diltiazem HCl (Cardizem -) 30 mg PO TID [facility] Last Admin: 06/13/19 13:17 Dose: Not Given Enoxaparin Sodium (Lovenox -) 80 mg SQ BID [facility] Last Admin: 06/13/19 09:43 Dose: 80 mg Piperacillin Sod/Tazobactam (Sod 3.375 gm/ Dextrose) 50 mls @ 100 mls/hr IVPB Q8H-IV [facility]; Protocol Last Admin: 06/13/19 09:43 Dose: 100 mls/hr Norepinephrine Bitartrate 8, (000 mcg/ Sodium Chloride) 500 mls @ 18.75 mls/hr IV TITR [facility]; Protocol Last Admin: 06/12/19 17:19 Dose: 4 mcg/min, 15 mls/hr Vasopressin 50 units/ Sodium (Chloride) 100 mls @ 4 mls/hr IVPB ASDIR [facility]; Protocol Last Admin: 06/12/19 17:20 Dose: Not Given Propofol (Diprivan -) 1,000,000 mcg in 100 mls @ 2.49 mls/hr IVPB TITR [facility]; Protocol Last Admin: 06/12/19 22:42 Dose: 20 mcg/kg/min, 9.961 mls/hr Insulin Aspart (Novolog Vial Sliding Scale -) 1 vial SQ ACHS [facility]; Protocol Last Admin: 06/13/19 11:28 Dose: Not Given Constitutional: Yes: Intubated and sedated Eyes: Yes: WNL, Conjunctiva Clear HENT: Yes: WNL, Atraumatic, Normocephalic Neck: Yes: WNL, Supple, Trachea Midline Cardiovascular: Yes: Tachycardia, Pulse Irregular Respiratory: Yes: Vented, Diminished on the Right, right CT Gastrointestinal: Yes: WNL, Normal Bowel Sounds, Soft ...Rectal Exam: Yes: Deferred Renal/: Yes: WNL Breast(s): Yes: WNL Musculoskeletal: Yes: WNL Extremities: Yes: WNL Edema: No Peripheral Pulses WNL: Yes Neurological: Yes: Sedated ...Motor Strength: WNL Psychiatric: Yes: Sedated Labs: Laboratory Results - last 24 hr 06/12/19 06/12/19 06/13/19 17:15 22:00 05:20 WBC 16.4 H RBC 4.02 Hgb 10.6 L Hct 32.7 L MCV 81.4 MCH 26.4 MCHC 32.4 RDW 22.0 H Plt Count 223 MPV 8.4 Absolute Neuts (auto) 13.8 H Neutrophils % 84.1 H Lymphocytes % 5.8 L D Monocytes % 6.6 Eosinophils % 3.1 Basophils % 0.4 Nucleated RBC % 0 Sodium Potassium Chloride Carbon Dioxide Anion Gap BUN Creatinine Est GFR (CKD-EPI)AfAm Est GFR (CKD-EPI)NonAf POC Glucometer 143 175 Random Glucose Calcium Phosphorus Magnesium Total Bilirubin AST ALT Alkaline Phosphatase Total Protein Albumin 06/13/19 06/13/19 06/13/19 05:20 05:50 11:26 WBC RBC Hgb Hct MCV MCH MCHC RDW Plt Count MPV Absolute Neuts (auto) Neutrophils % Lymphocytes % Monocytes % Eosinophils % Basophils % Nucleated RBC % Sodium 141 Potassium 4.0 Chloride 105 Carbon Dioxide 30 Anion Gap 6 L BUN 10.5 Creatinine 0.5 L Est GFR (CKD-EPI)AfAm 130.88 Est GFR (CKD-EPI)NonAf 112.92 POC Glucometer 144 156 Random Glucose 157 H Calcium 7.4 L Phosphorus 2.3 L Magnesium 2.3 Total Bilirubin 0.7 AST 10 L ALT 11 L Alkaline Phosphatase 100 Total Protein 5.4 L Albumin 1.8 L Assessment/Plan -Acute HYPOXIC RESP FAIL 2/2 R Pleural effusion m/l malignant -Metastatic Non small cell lung CA -HTN -HLD -DM -A-Fib -CAD -SCHIZO PLAN: -AC Mode of vent, wean FiO2 -Bronchodilators -Pressors to maintain MAP > 65 -R Chest Tube to suction drain -Hold all anti-HTN meds -Rate Control -FS's -SSI -Strict I's & O's -Trend BUN/Cr -Replete e-lytes -SCDs -GI ppx -Requires ICU monitoring Overall prognosis is grave Dr Luna Critical care time spent in reviewing chart, evaluating patient and formulating plan - 36 minutes.
--- NOTE | 2019-06-13 15:11 | PN ---
Physical Exam: SUBJECTIVE: Patient seen and examined NAEON Intubated and sedated on propol OBJECTIVE: Vital Signs Period Temp Pulse Resp BP Sys/Stock Pulse Ox Last 24 Hr 98 F-99.6 F 102-120 14-20 85-117/63-88 99 GENERAL: sedated on propofol HEAD: NC/AT EYES: sclera anicteric, conjunctiva clear. No ptosis. ENT: Ears normal, nares patent, moist mucous membranes. NECK: Trachea midline, full range of motion, supple. LUNGS: Diminished BS to the Right. Right chest w/ serous output. Vented 450, 14 , 5, 60% HEART: tachy, no notable murmurs ABDOMEN: Soft, nontender, nondistended, normoactive bowel sounds EXTREMITIES: 2+ pulses, warm, well-perfused, 1+ pitting peripheral edema. NEUROLOGICAL: intubated and sedation SKIN: Warm, dry, normal turgor, no rashes or lesions noted Laboratory Results - last 24 hr 06/12/19 06/12/19 06/13/19 17:15 22:00 05:20 WBC 16.4 H RBC 4.02 Hgb 10.6 L Hct 32.7 L MCV 81.4 MCH 26.4 MCHC 32.4 RDW 22.0 H Plt Count 223 MPV 8.4 Absolute Neuts (auto) 13.8 H Neutrophils % 84.1 H Lymphocytes % 5.8 L D Monocytes % 6.6 Eosinophils % 3.1 Basophils % 0.4 Nucleated RBC % 0 Sodium Potassium Chloride Carbon Dioxide Anion Gap BUN Creatinine Est GFR (CKD-EPI)AfAm Est GFR (CKD-EPI)NonAf POC Glucometer 143 175 Random Glucose Calcium Phosphorus Magnesium Total Bilirubin AST ALT Alkaline Phosphatase Total Protein Albumin 06/13/19 06/13/19 06/13/19 05:20 05:50 11:26 WBC RBC Hgb Hct MCV MCH MCHC RDW Plt Count MPV Absolute Neuts (auto) Neutrophils % Lymphocytes % Monocytes % Eosinophils % Basophils % Nucleated RBC % Sodium 141 Potassium 4.0 Chloride 105 Carbon Dioxide 30 Anion Gap 6 L BUN 10.5 Creatinine 0.5 L Est GFR (CKD-EPI)AfAm 130.88 Est GFR (CKD-EPI)NonAf 112.92 POC Glucometer 144 156 Random Glucose 157 H Calcium 7.4 L Phosphorus 2.3 L Magnesium 2.3 Total Bilirubin 0.7 AST 10 L ALT 11 L Alkaline Phosphatase 100 Total Protein 5.4 L Albumin 1.8 L Active Medications Generic Name Dose Route Start Last Admin Trade Name Freq PRN Reason Stop Dose Admin Acetaminophen 650 mg 06/09/19 05:59 Tylenol - PO Q6H PRN PAIN LEVEL 1-5 Albuterol Sulfate 1 amp 06/09/19 05:59 Ventolin 0.083% Nebulizer Soln - NEB RQID PRN SHORT OF BREATH/WHEEZING Amiodarone HCl 200 mg 06/12/19 10:00 06/13/19 09:45 Cordarone - NGT 200 mg DAILY [facility] Administration Aripiprazole 5 mg 06/09/19 10:00 06/13/19 09:44 Abilify PO 5 mg DAILY [facility] Administration Calcium Carbonate 500 mg 06/09/19 10:00 06/13/19 09:45 Os-Davey 500mg - PO 500 mg DAILY [facility] Administration Cholecalciferol 2,000 unit 06/09/19 10:00 06/13/19 09:44 Vitamin D3 - PO 2,000 unit DAILY [facility] Administration Diltiazem HCl 30 mg 06/08/19 14:00 06/13/19 13:17 Cardizem - PO Not Given TID [facility] Enoxaparin Sodium 80 mg 06/09/19 10:00 06/13/19 09:43 Lovenox - SQ 80 mg BID [facility] Administration Piperacillin Sod/Tazobactam 50 mls @ 100 mls/hr 06/09/19 15:00 06/13/19 09:43 Sod 3.375 gm/ Dextrose IVPB 100 mls/hr Q8H-IV [facility] Administration Protocol Norepinephrine Bitartrate 8, 500 mls @ 18.75 mls/hr 06/09/19 16:15 06/12/19 17:19 000 mcg/ Sodium Chloride IV 4 mcg/min TITR [facility] 15 mls/hr Administration Protocol 5 MCG/MIN Vasopressin 50 units/ Sodium 100 mls @ 4 mls/hr 06/09/19 16:45 06/12/19 17:20 Chloride IVPB Not Given ASDIR [facility] Protocol 2 UNITS/HR Propofol 1,000,000 mcg in 100 mls @ 2.49 mls/hr 06/09/19 22:00 06/12/19 22:42 Diprivan - IVPB 20 mcg/kg/min TITR [facility] 9.961 mls/hr Administration Protocol 5 MCG/KG/MIN Insulin Aspart 1 vial 06/09/19 07:00 06/13/19 11:28 Novolog Vial Sliding Scale - SQ Not Given ACHS [facility] Protocol ASSESSMENT/PLAN: 68 y/o M from [facility] with hx of HTN, HLD, A-Fib on AC, DM, CAD, Schizo, & recently diagnosed non small cell lung CA w/ brain and T-spine mets (Of note, tumor exhibits PDL-1 expression) presented on 06/[address] chest reveals massive right sided pleural effusion with compressive atelectasis vs compressive malignancy s/p right chest tube placement. Intubated on 06/09/19 for desaturation despite BiPaP and ABG showing hypercapnic respir failure Neuro: - sedated, intubated on propofol CV: - MAPs 60-80s -> curently on levo 5, wean as tolerated - afib HR 120s-130s; now on Amio 200mg QD in addition to Dilt 30mg TID Respiratory: - right sided effusion likely malignant with compressive atelectasis vs compressive malignancy - s/p chest tube; will monitor I&Os - ventilated: 450, 14, 5, 50% GI: - NPO - tube feeds; tolerating well and maintaining sats without aspiration events Renal: - Cr 0.5 - urinary retention; trevino ID: > BCX(06/08/19): coag-neg staph; Gram positive bacili > BCX(06/09/19): NGTD - ID(Dr Littlejohn) consulted --continue [employer]: - replete lytes prn - NPO - RIJ, right lateral chest tube, ETT, PIV x2 Dispo: ICU team will continue to follow; NH and assisted living contacted and patient with no known relatives or POA; patient submitted to ethics committee for review - palliative (Zachary) consulted for GOC Visit type - Emergency Visit Emergency Visit: No - New Patient This patient is new to me today: No - Critical Care Critical Care patient: Yes Total Critical Care Time (in minutes): 35 Critical Care Statement: The care of this patient involved high complexity decision making to prevent further life threatening deterioration of the patient 's condition and/or to evaluate & treat vital organ system(s) failure or risk of failure. ATTENDING PHYSICIAN STATEMENT I saw and evaluated the patient. I reviewed the resident's note and discussed the case with the resident. I agree with the resident's findings and plan as documented. SUBJECTIVE: OBJECTIVE: ASSESSMENT AND PLAN:
[2019-06-13] MEDS ORDERED: DEXTROSE 5%-WATER - 100 ML IVPB ONE (16:53)
[2019-06-13] MEDS: VASOPRESSIN 50 UNITS in SODIUM CHLORIDE 97.5 ML IVPB SCH (17:23)
[2019-06-13] MEDS: NOREPINEPHRINE BITARTRATE 8,000 MCG in SODIUM CHLORIDE 492 ML IV SCH (17:26)
[2019-06-14] MEDS: PIPERACILLIN/TAZOB 3.375 GM 3.375 GM in DEXTROSE 5%-WATER - 50 ML IVPB SCH ×3 (02:04→19:50)
[2019-06-14] MEDS: PROPOFOL 1,000,000 MCG/100 ML VIAL IVPB SCH ×2 (02:06→14:00)
[2019-06-14 06:46] LABS: HEMOGLOBIN 10.7 GM/dL (11.7-16.9); MCH 26.6 pg (25.7-33.7); MCHC 32.5 g/dl (32.0-35.9); MEAN CELL VOLUME 81.9 fl (80-96); MEAN PLT VOLUME 8.3 fl (7.5-11.1); PLATELET COUNT 225 K/MM3 (134-434); RBC 4.03 M/mm3 (4.00-5.60); RDW 21.6 % (11.9-15.9); WHITE BLOOD COUNT 15.5 K/mm3 (4.0-10.0)
[2019-06-14] MEDS: INSULIN SLIDING SCALE (NOVOLOG) 1 VIAL SQ SCH ×3 (07:03→17:53)
[2019-06-14] MEDS: dilTIAZem HCL 30 MG TABLET (FP) PO SCH ×3 (07:03→22:19)
[2019-06-14 07:24] LABS: BLOOD UREA NITROGEN 10.7 mg/dL (7-18); CALCIUM 7.4 mg/dL (8.5-10.1); CREATININE 0.4 mg/dL (0.55-1.3); PHOSPHOROUS 2.6 mg/dL (2.5-4.9); POTASSIUM 4.4 mmol/L (3.5-5.1)
--- NOTE | 2019-06-14 08:36 | PN ---
Progress Note (short form) - Note Progress Note: Chief Complaint: Events noted, notes reviewed, remains sedated and intubated, hypotensive on pressors, remains in atrial fibrillation with periods of RVR remains on Amiodarone and Cardizem- hemodynamics permitting History of Present Illness: Seen and examined in the ICU. Events noted, notes reviewed, remains sedated and intubated, hypotensive on pressors, remains in atrial fibrillation with periods of RVR remains on Amiodarone and Cardizem- hemodynamics permitting Chest x-ray noted no change Current Medications: Current Medications Acetaminophen (Tylenol -) 650 mg PO Q6H PRN PRN Reason: PAIN LEVEL 1-5 Amiodarone HCl (Cordarone -) 200 mg NGT DAILY [facility] Last Admin: 06/13/19 09:45 Dose: 200 mg Aripiprazole (Abilify) 5 mg PO DAILY [facility] Last Admin: 06/13/19 09:44 Dose: 5 mg Calcium Carbonate (Os-Davey 500mg -) 500 mg PO DAILY [facility] Last Admin: 06/13/19 09:45 Dose: 500 mg Cholecalciferol (Vitamin D3 -) 2,000 unit PO DAILY [facility] Last Admin: 06/13/19 09:44 Dose: 2,000 unit Diltiazem HCl (Cardizem -) 30 mg PO TID [facility] Last Admin: 06/14/19 07:03 Dose: 30 mg Enoxaparin Sodium (Lovenox -) 80 mg SQ BID [facility] Last Admin: 06/13/19 21:26 Dose: 80 mg Piperacillin Sod/Tazobactam (Sod 3.375 gm/ Dextrose) 50 mls @ 100 mls/hr IVPB Q8H-IV [facility]; Protocol Last Admin: 06/14/19 02:04 Dose: 100 mls/hr Norepinephrine Bitartrate 8, (000 mcg/ Sodium Chloride) 500 mls @ 18.75 mls/hr IV TITR [facility]; Protocol Last Admin: 06/13/19 17:26 Dose: Not Given Vasopressin 50 units/ Sodium (Chloride) 100 mls @ 4 mls/hr IVPB ASDIR [facility]; Protocol Last Admin: 06/13/19 17:23 Dose: Not Given Propofol (Diprivan -) 1,000,000 mcg in 100 mls @ 2.49 mls/hr IVPB TITR [facility]; Protocol Last Admin: 06/14/19 02:06 Dose: 30 mcg/kg/min, 14.941 mls/hr Insulin Aspart (Novolog Vial Sliding Scale -) 1 vial SQ [facility]; Protocol Last Admin: 06/14/19 07:03 Dose: Not Given Review of Systems Unable to obtain - Objective Vital Signs: Last Vital Signs Temp Pulse Resp BP Pulse Ox 98.4 F 119 H 16 116/78 99 06/13/19 22:00 06/14/19 06:00 06/14/19 06:00 06/14/19 06:00 06/12/19 20:21 Intake & Output 06/11/19 06/12/19 06/13/19 06/14/19 23:59 23:59 23:59 23:59 Intake Total 1238 2240 2550 710 Output Total 2050 2050 1750 600 Balance -812 190 800 110 Weight 188 lb 11.2 oz 187 lb 8 oz 183 lb 4 oz 181 lb 12.8 oz Neck: Supple negative JVD no bruit Cardiovascular: S1 S2 Irregularly Irregular Respiratory: Diminished Breath Sounds Bilaterally Gastrointestinal: Soft Benign Normal Bowel Sounds Ext: Edema Bilaterally Labs: CBC, BMP 06/14/19 06:00 06/14/19 06:00 INR, PTT INR 1.20 (0.83-1.09) H 06/08/19 01:30 Hepatic Panel Total Bilirubin 0.7 mg/dL (0.2-1) 06/13/19 05:20 AST 10 U/L (15-37) L 06/13/19 05:20 ALT 11 U/L (13-61) L 06/13/19 05:20 Alkaline Phosphatase 100 U/L (45-117) 06/13/19 05:20 Albumin 1.8 g/dl (3.4-5.0) L 06/13/19 05:20 ABG Results ABG pH 7.48 (7.35-7.45) H 06/11/19 07:50 ABG pCO2 at Pt Temp 39.7 mmHg (35-45) 06/11/19 07:50 ABG pO2 at Pt Temp 115 mmHg (80-100) H 06/11/19 07:50 ABG HCO3 29.4 mmol/L (22-27) H 06/11/19 07:50 ABG O2 Sat (Measured) 98.2 % (95-98) H 06/11/19 07:50 ABG O2 Content 14.8 % vol 06/11/19 07:50 ABG Base Excess 5.8 meq/l (-2-2) H 06/11/19 07:50 Assessment/Plan: ASSESSMENT: 1. Acute hypoxic respiratory failure related to complete right lung collapse/ large pleural effusion post chest tube insertion 2. Hypotension, probable sepsis syndrome on pressors, probable post obstructive pneumonia 3. Metastatic lung carcinoma, brain mets 4. Persistent atrial fibrillation with RVR on Amiodarone and Cardizem therapy, [id number] score of 5 currntly off of A/C 5. Coronary artery disease with evidence of demand ischemia no clinical angina pectoris 6. Diastolic left ventricular dysfunction with clinical class 0 [place] [employer] classification left ventricular failure 7. Hypertensive cardiovascular disease, currently hypotensive as noted above 8. Diabetes mellitus 9. Hypercholesterolemia 10. History of cerebrovascular disease 11. History of schizophrenia 12. History of ataxia 13. History of osteomyelitis 14. Anemia PLAN: 1. Continue PO Amiodarone, assist with rate control 2. Continue PO Cardizem or may consider Lopressor therapy in substitution, assist with rate control/hemodyanamics permitting 3. Attempt to wean off pressors as tolerated 4. Continue A/C therapy with Lovenox unless it is absolutely contraindicated with caution and close monitoring of CBC/Hg level, maintain hemoglobin equal or greater than 8.0 5. Utilize diuretic therapy/Lasix therapy/as needed with close monitoring of renal function and electrolytes 6. Antibiotics as per the primary team 7. Overall poor prognosis Ubaldo Kim MD
[2019-06-14] MEDS ORDERED: PIPERACILLIN/TAZOBACTAM 3.375 GM VIAL IVPB ONE (09:18)
[2019-06-14] MEDS ORDERED: PT OWN MED DRAWER 7, Y5N ONE (09:18)
[2019-06-14] MEDS ORDERED: DEXTROSE 5%-WATER - 50 ML IVPB ONE (09:19)
[2019-06-14] MEDS: AMIODARONE HCL 200 MG TABLET NGT SCH (09:41)
[2019-06-14] MEDS: CHOLECALCIFEROL (VIT D3) 1,000 UNIT (25 MCG) TABLET PO SCH (09:41)
[2019-06-14] MEDS: ARIPiprazole 5 MG TABLET PO SCH (09:42)
[2019-06-14] MEDS: ENOXAPARIN NA (PORCINE) 80 MG/0.8 ML DISP.SYRIN SQ SCH ×2 (09:42→22:19)
[2019-06-14] MEDS: CALCIUM (OYSTER SHELL) 500 MG TABLET (FP) PO SCH (09:44)
--- NOTE | 2019-06-14 10:08 | PN ---
Teaching Attending Note Name of Resident: Pritesh Summers ATTENDING PHYSICIAN STATEMENT I saw and evaluated the patient. I reviewed the resident's note and discussed the case with the resident. I agree with the resident's findings and plan as documented. SUBJECTIVE: Patient seen and examined in the ICU. Remains intubated and sedated. AC Mode of vent. Continued serosanginous drainage from the right pleural catheter. CXR: right complete opacification Intake & Output 06/11/19 06/12/19 06/13/19 06/14/19 23:59 23:59 23:59 23:59 Intake Total 1238 2240 2550 710 Output Total 0 2050 1750 600 Balance -812 190 800 110 Weight 188 lb 11.2 oz 187 lb 8 oz 183 lb 4 oz 181 lb 12.8 oz Last Vital Signs Temp Pulse Resp BP Pulse Ox 98.4 F 119 H 14 116/78 99 06/13/19 22:00 06/14/19 06:00 06/14/19 09:05 06/14/19 06:00 06/12/19 20:21 Active Medications Acetaminophen (Tylenol -) 650 mg PO Q6H PRN PRN Reason: PAIN LEVEL 1-5 Amiodarone HCl (Cordarone -) 200 mg NGT DAILY [facility] Last Admin: 06/14/19 09:41 Dose: 200 mg Aripiprazole (Abilify) 5 mg PO DAILY [facility] Last Admin: 06/14/19 09:42 Dose: 5 mg Calcium Carbonate (Os-Davey 500mg -) 500 mg PO DAILY [facility] Last Admin: 06/14/19 09:44 Dose: 500 mg Cholecalciferol (Vitamin D3 -) 2,000 unit PO DAILY [facility] Last Admin: 06/14/19 09:41 Dose: 2,000 unit Diltiazem HCl (Cardizem -) 30 mg PO TID [facility] Last Admin: 06/14/19 07:03 Dose: 30 mg Enoxaparin Sodium (Lovenox -) 80 mg SQ BID [facility] Last Admin: 06/14/19 09:42 Dose: 80 mg Piperacillin Sod/Tazobactam (Sod 3.375 gm/ Dextrose) 50 mls @ 100 mls/hr IVPB Q8H-IV [facility]; Protocol Last Admin: 06/14/19 09:42 Dose: 100 mls/hr Norepinephrine Bitartrate 8, (000 mcg/ Sodium Chloride) 500 mls @ 18.75 mls/hr IV TITR [facility]; Protocol Last Admin: 06/13/19 17:26 Dose: Not Given Vasopressin 50 units/ Sodium (Chloride) 100 mls @ 4 mls/hr IVPB ASDIR [facility]; Protocol Last Admin: 06/13/19 17:23 Dose: Not Given Propofol (Diprivan -) 1,000,000 mcg in 100 mls @ 2.49 mls/hr IVPB TITR [facility]; Protocol Last Admin: 06/14/19 02:06 Dose: 30 mcg/kg/min, 14.941 mls/hr Insulin Aspart (Novolog Vial Sliding Scale -) 1 vial SQ [facility]; Protocol Last Admin: 06/14/19 07:03 Dose: Not Given Constitutional: Yes: Intubated and sedated Eyes: Yes: WNL, Conjunctiva Clear HENT: Yes: WNL, Atraumatic, Normocephalic Neck: Yes: WNL, Supple, Trachea Midline Cardiovascular: Yes: Tachycardia, Pulse Irregular Respiratory: Yes: Vented, Diminished on the Right, right CT Gastrointestinal: Yes: WNL, Normal Bowel Sounds, Soft ...Rectal Exam: Yes: Deferred Renal/: Yes: WNL Breast(s): Yes: WNL Musculoskeletal: Yes: WNL Extremities: Yes: WNL Edema: No Peripheral Pulses WNL: Yes Neurological: Yes: Sedated ...Motor Strength: WNL Psychiatric: Yes: Sedated Labs: Laboratory Results - last 24 hr 06/13/19 06/13/19 06/13/19 11:26 16:58 21:37 WBC RBC Hgb Hct MCV MCH MCHC RDW Plt Count MPV Sodium Potassium Chloride Carbon Dioxide Anion Gap BUN Creatinine Est GFR (CKD-EPI)AfAm Est GFR (CKD-EPI)NonAf POC Glucometer 156 149 161 Random Glucose Calcium Phosphorus Magnesium 06/14/19 06/14/19 06/14/19 06:00 06:00 06:24 WBC 15.5 H RBC 4.03 Hgb 10.7 L Hct 33.0 L MCV 81.9 MCH 26.6 MCHC 32.5 RDW 21.6 H Plt Count 225 MPV 8.3 Sodium 142 Potassium 4.4 Chloride 105 Carbon Dioxide 32 Anion Gap 5 L BUN 10.7 Creatinine 0.4 L Est GFR (CKD-EPI)AfAm 143.45 Est GFR (CKD-EPI)NonAf 123.77 POC Glucometer 143 Random Glucose 162 H Calcium 7.4 L Phosphorus 2.6 Magnesium 2.0 Assessment/Plan -Acute HYPOXIC RESP FAIL 2/2 R Pleural effusion m/l malignant -Metastatic Non small cell lung CA -HTN -HLD -DM -A-Fib -CAD -SCHIZO PLAN: -AC Mode of vent, wean FiO2 as tolerated -Right Chest Tube to suction drain -Hold all anti-HTN meds -Rate Control -FS's -SSI -Strict I's & O's -Trend BUN/Cr -Replete e-lytes -SCDs -GI ppx -Requires ICU monitoring I have discussed Mr Becerril condition in detail with his Primary MD and his oncologist. Mr Theodore, initially did not want an extensive workup or treatment when we first discovered his lung mass. He did agree to allow me to perform a bronchoscopy to establish a diagnosis. Since that time, his overall condition has rapidly deteriorated. He is cancer is very wide spread and will only become more advanced. There is no possibility for cure or realistic control. He has complete atelectasis of the right lung lung due to tumor burden and brain metastasis. His PMD, oncologist, and myself are all in agreement that further workup, intervention, or treatment would be medically futile and in addition would only cause undue pain and suffering. I am sure that Julio would not this course of action as I have spoken to him previously about chronic life support (ventilation). I feel it is on his best interest and consistent with his previous wishes to make him as comfortable as possible and perform a compassionate extubation. Dr Luna Critical care time spent in reviewing chart, evaluating patient and formulating plan - 36 minutes.
--- NOTE | 2019-06-14 10:12 | PN ---
Progress Note, Physician - Current Medication List Current Medications: Active Medications Acetaminophen (Tylenol -) 650 mg PO Q6H PRN PRN Reason: PAIN LEVEL 1-5 Amiodarone HCl (Cordarone -) 200 mg NGT DAILY [facility] Last Admin: 06/14/19 09:41 Dose: 200 mg Aripiprazole (Abilify) 5 mg PO DAILY [facility] Last Admin: 06/14/19 09:42 Dose: 5 mg Calcium Carbonate (Os-Davey 500mg -) 500 mg PO DAILY [facility] Last Admin: 06/14/19 09:44 Dose: 500 mg Cholecalciferol (Vitamin D3 -) 2,000 unit PO DAILY [facility] Last Admin: 06/14/19 09:41 Dose: 2,000 unit Diltiazem HCl (Cardizem -) 30 mg PO TID [facility] Last Admin: 06/14/19 07:03 Dose: 30 mg Enoxaparin Sodium (Lovenox -) 80 mg SQ BID [facility] Last Admin: 06/14/19 09:42 Dose: 80 mg Piperacillin Sod/Tazobactam (Sod 3.375 gm/ Dextrose) 50 mls @ 100 mls/hr IVPB Q8H-IV [facility]; Protocol Last Admin: 06/14/19 09:42 Dose: 100 mls/hr Norepinephrine Bitartrate 8, (000 mcg/ Sodium Chloride) 500 mls @ 18.75 mls/hr IV TITR [facility]; Protocol Last Admin: 06/13/19 17:26 Dose: Not Given Vasopressin 50 units/ Sodium (Chloride) 100 mls @ 4 mls/hr IVPB ASDIR [facility]; Protocol Last Admin: 06/13/19 17:23 Dose: Not Given Propofol (Diprivan -) 1,000,000 mcg in 100 mls @ 2.49 mls/hr IVPB TITR [facility]; Protocol Last Admin: 06/14/19 02:06 Dose: 30 mcg/kg/min, 14.941 mls/hr Insulin Aspart (Novolog Vial Sliding Scale -) 1 vial SQ ACHS [facility]; Protocol Last Admin: 06/14/19 07:03 Dose: Not Given - Objective Vital Signs: Vital Signs Temperature 98.4 F 06/13/19 22:00 Pulse Rate 119 H 06/14/19 06:00 Respiratory Rate 14 06/14/19 09:05 Blood Pressure 116/78 06/14/19 06:00 O2 Sat by Pulse Oximetry (%) 99 06/12/19 20:21 Cardiovascular: Yes: S1, S2 Respiratory: Yes: Mechanically Ventilated Gastrointestinal: Yes: Normal Bowel Sounds, Soft Labs: CBC, BMP 06/14/19 06:00 06/14/19 06:00 INR, PTT INR 1.20 (0.83-1.09) H 06/08/19 01:30 Assessment/Plan - Problems (1) SOB (shortness of breath) Assessment/Plan: -CTA Chest:with right lung collapse and large right pleural effusion. No evidence of PE. 5 cm RUL mass with hilar and mediastinal adenopathy, left adrenal enlargement, T3 vertebral body metastases, paravertebral mass, foraminal obstruction by the mass at T2-3, displacement of the cord, left cerebellar 0.7cm and rt. occipital metastasis. -Chest Tube placed -Now on Vent -Pulmonary on board -O2 to keep SpO2>90% -Bronchodilators -IR to place chest drain -Xarelto on hold -Lovenox 80 mg SQ BID for dvt ppx for afib Problems reviewed: Yes Code(s): R06.02 - SHORTNESS OF BREATH (2) Collapse of right lung Problems reviewed: Yes Code(s): J98.11 - ATELECTASIS (3) Pleural effusion Problems reviewed: Yes -Chest Tube in place -Pulmonary on board Code(s): J90 - PLEURAL EFFUSION, NOT ELSEWHERE CLASSIFIED (4) Lung cancer Assessment/Plan: -Oncology consult -Overall poor prognosis=Palliative care Problems reviewed: Yes Code(s): C34.90 - MALIGNANT NEOPLASM OF UNSP PART OF UNSP BRONCHUS OR LUNG (5) Metastatic disease Problems reviewed: Yes Code(s): C79.9 - SECONDARY MALIGNANT NEOPLASM OF UNSPECIFIED SITE (6) Diabetes Assessment/Plan: -recheck A1c -BGM AC HS Problems reviewed: Yes Code(s): E11.9 - TYPE 2 DIABETES MELLITUS WITHOUT COMPLICATIONS (7) Schizophrenia Assessment/Plan: -Continue Abilify Problems reviewed: Yes Code(s): F20.9 - SCHIZOPHRENIA, UNSPECIFIED (8) Afib Assessment/Plan: -Rapid now on drip -chronic -cardiology consult -Lovenox 80 mg SQ BID for afib Problems reviewed: Yes Code(s): I48.91 - UNSPECIFIED ATRIAL FIBRILLATION Qualifiers: Atrial fibrillation type: persistent (9) Hypotension Assessment/Plan: -Hold Lisinopril -Cardiology consult Problems reviewed: Yes Code(s): I95.9 - HYPOTENSION, UNSPECIFIED Mr Theodore has extensive medical history including metastatic cancer and currently on vent due to respiratory failure and large pleural effusion that required a chest tube. I discussed case with Dr Estrella and we Agree that further workup, intervention, or treatment would be medically futile and in addition would only cause undue pain and suffering. I do believe that to continue treatment would increase his suffering and pain therefore I am in agreement with compassionate weaning
--- NOTE | 2019-06-14 11:49 | PN ---
Progress Note, Physician History of Present Illness: REMAINS ON VENTILATOR NO ACUTE DISTRESS AFEBRILE CHEST TUBE IN PLACE BC, PLEURAL FLUID C/S NO GROWTH CXR OPACIFIED R HEMITHORAX - Current Medication List Current Medications: Active Medications Acetaminophen (Tylenol -) 650 mg PO Q6H PRN PRN Reason: PAIN LEVEL 1-5 Amiodarone HCl (Cordarone -) 200 mg NGT DAILY [facility] Last Admin: 06/14/19 09:41 Dose: 200 mg Aripiprazole (Abilify) 5 mg PO DAILY [facility] Last Admin: 06/14/19 09:42 Dose: 5 mg Calcium Carbonate (Os-Davey 500mg -) 500 mg PO DAILY [facility] Last Admin: 06/14/19 09:44 Dose: 500 mg Cholecalciferol (Vitamin D3 -) 2,000 unit PO DAILY [facility] Last Admin: 06/14/19 09:41 Dose: 2,000 unit Diltiazem HCl (Cardizem -) 30 mg PO TID [facility] Last Admin: 06/14/19 07:03 Dose: 30 mg Enoxaparin Sodium (Lovenox -) 80 mg SQ BID [facility] Last Admin: 06/14/19 09:42 Dose: 80 mg Piperacillin Sod/Tazobactam (Sod 3.375 gm/ Dextrose) 50 mls @ 100 mls/hr IVPB Q8H-IV [facility]; Protocol Last Admin: 06/14/19 09:42 Dose: 100 mls/hr Norepinephrine Bitartrate 8, (000 mcg/ Sodium Chloride) 500 mls @ 18.75 mls/hr IV TITR [facility]; Protocol Last Admin: 06/13/19 17:26 Dose: Not Given Vasopressin 50 units/ Sodium (Chloride) 100 mls @ 4 mls/hr IVPB ASDIR [facility]; Protocol Last Admin: 06/13/19 17:23 Dose: Not Given Propofol (Diprivan -) 1,000,000 mcg in 100 mls @ 2.49 mls/hr IVPB TITR [facility]; Protocol Last Admin: 06/14/19 02:06 Dose: 30 mcg/kg/min, 14.941 mls/hr Insulin Aspart (Novolog Vial Sliding Scale -) 1 vial SQ ACHS [facility]; Protocol Last Admin: 06/14/19 07:03 Dose: Not Given - Objective Vital Signs: Vital Signs Temperature 98 F 06/14/19 10:00 Pulse Rate 107 H 06/14/19 10:00 Respiratory Rate 18 06/14/19 10:00 Blood Pressure 99/61 06/14/19 10:00 O2 Sat by Pulse Oximetry (%) 99 06/12/19 20:21 Constitutional: Yes: No Distress Cardiovascular: Yes: Regular Rate and Rhythm, S1, S2 Respiratory: Yes: Mechanically Ventilated Gastrointestinal: Yes: Normal Bowel Sounds, Soft. No: Tenderness Extremities: Yes: Cyanosis Labs: CBC, BMP 06/14/19 06:00 06/14/19 06:00 INR, PTT INR 1.20 (0.83-1.09) H 06/08/19 01:30 Assessment/Plan RESP FAILURE PLEURAL EFFUSION ? PNEUMONIA +BC LIKELY CONTAMINANT LEUKOCYTOSIS METASTATIC CA REPEAT BC, PLEURAL FLUID C/S NO GROWTH CONTINUE EMPIRIC ZOSYN
--- NOTE | 2019-06-14 15:03 | PN ---
Physical Exam: SUBJECTIVE: Patient seen and examined, no acute change, no events overnight OBJECTIVE: Vital Signs Temperature 98 F 06/14/19 10:00 Pulse Rate 110 H 06/14/19 12:00 Respiratory Rate 06/14/19 12:00 Blood Pressure 90/68 06/14/19 12:00 O2 Sat by Pulse Oximetry (%) 99 06/12/19 20:21 GENERAL: The patient is intubated and sedated HEAD: Normal with no signs of trauma. NECK: Trachea midline, full range of motion, supple. LUNGS: diminished breath sounds on the right, crackles on the left HEART: Regular rate and rhythm, S1, S2 ABDOMEN: Soft, nontender, nondistended, normoactive bowel sounds, EXTREMITIES: distal extremities cold to touch SKIN: skin with some distal mottled changes CBC, BMP 06/14/19 06:00 06/14/19 06:00 Active Medications Acetaminophen (Tylenol -) 650 mg PO Q6H PRN PRN Reason: PAIN LEVEL 1-5 Amiodarone HCl (Cordarone -) 200 mg NGT DAILY [facility] Last Admin: 06/14/19 09:41 Dose: 200 mg Aripiprazole (Abilify) 5 mg PO DAILY [facility] Last Admin: 06/14/19 09:42 Dose: 5 mg Calcium Carbonate (Os-Davey 500mg -) 500 mg PO DAILY [facility] Last Admin: 06/14/19 09:44 Dose: 500 mg Cholecalciferol (Vitamin D3 -) 2,000 unit PO DAILY [facility] Last Admin: 06/14/19 09:41 Dose: 2,000 unit Diltiazem HCl (Cardizem -) 30 mg PO TID [facility] Last Admin: 06/14/19 13:24 Dose: Not Given Enoxaparin Sodium (Lovenox -) 80 mg SQ BID [facility] Last Admin: 06/14/19 09:42 Dose: 80 mg Piperacillin Sod/Tazobactam (Sod 3.375 gm/ Dextrose) 50 mls @ 100 mls/hr IVPB Q8H-IV [facility]; Protocol Last Admin: 06/14/19 09:42 Dose: 100 mls/hr Norepinephrine Bitartrate 8, (000 mcg/ Sodium Chloride) 500 mls @ 18.75 mls/hr IV TITR [facility]; Protocol Last Admin: 06/13/19 17:26 Dose: Not Given Vasopressin 50 units/ Sodium (Chloride) 100 mls @ 4 mls/hr IVPB [facility]; Protocol Last Admin: 06/13/19 17:23 Dose: Not Given Propofol (Diprivan -) 1,000,000 mcg in 100 mls @ 2.49 mls/hr IVPB TITR [facility]; Protocol Last Admin: 06/14/19 02:06 Dose: 30 mcg/kg/min, 14.941 mls/hr Insulin Aspart (Novolog Vial Sliding Scale -) 1 vial SQ ACHS [facility]; Protocol Last Admin: 06/14/19 11:55 Dose: Not Given ASSESSMENT/PLAN: 68 y/o M from [facility] with hx of HTN, HLD, A-Fib on AC, DM, CAD, Schizo, & recently diagnosed 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 Neuro: - sedated, intubated on propofol CV: - MAPs 60-80s -> curently on levo and vasopressin, wean as tolerated - afib HR 120s-130s; now on Amio 200mg QD in addition to Dilt 30mg TID - continue to monitor closely and avoid hypotension, as chest tube continues to drain Respiratory: -right sided effusion likely malignant with compressive atelectasis vs compressive malignancy - s/p chest tube; with continual drainage - vent rate 14, TV 450, PEEP 5, FIO2 50% GI: - continue tube feeds - aspiration precautions Renal: - Cr 0.5 - urinary retention; trevino ID: - BCX(06/08/19): coag-neg staph; Gram positive bacili - BCX(06/09/19): NGTD - ID(Dr Littlejohn) consulted --continue zosyn DVT ppx: Lovenox 80 bid FEN/LTD: - replete lytes prn - RIJ, right lateral chest tube, ETT, PIV x2 Dispo: ICU team will continue to follow; [place] and assisted living contacted and patient with no known relatives or POA; patient submitted to ethics committee for review - palliative (Zachary) consulted for GOC Visit type - Emergency Visit Emergency Visit: No - New Patient This patient is new to me today: No - Critical Care Critical Care patient: Yes Total Critical Care Time (in minutes): 40 Critical Care Statement: The care of this patient involved high complexity decision making to prevent further life threatening deterioration of the patient 's condition and/or to evaluate & treat vital organ system(s) failure or risk of failure. ATTENDING PHYSICIAN STATEMENT I saw and evaluated the patient. I reviewed the resident's note and discussed the case with the resident. I agree with the resident's findings and plan as documented. SUBJECTIVE: OBJECTIVE: ASSESSMENT AND PLAN:
[2019-06-14] MEDS: VASOPRESSIN 50 UNITS in SODIUM CHLORIDE 97.5 ML IVPB SCH (17:54)
[2019-06-15] MEDS ORDERED: DEXTROSE 5%-WATER - 50 ML IVPB ONE ×2 (00:01→09:10)
[2019-06-15] MEDS: INSULIN SLIDING SCALE (NOVOLOG) 1 VIAL SQ SCH ×5 (00:54→22:19)
[2019-06-15] MEDS: PIPERACILLIN/TAZOB 3.375 GM 3.375 GM in DEXTROSE 5%-WATER - 50 ML IVPB SCH ×3 (02:00→19:18)
--- NOTE | 2019-06-15 07:36 | PN ---
Progress Note (short form) - Note Progress Note: Chief Complaint: Events noted, notes reviewed, remains sedated and intubated, hypotensive on pressors, remains in atrial fibrillation with periods of RVR remains on Amiodarone and Cardizem- hemodynamics permitting History of Present Illness: Seen and examined in the ICU. Events noted, notes reviewed, remains sedated and intubated, hypotensive on pressors, remains in atrial fibrillation with periods of RVR remains on Amiodarone and Cardizem- hemodynamics permitting Chest x-ray 06/14/2019 noted no change Current Medications: Current Medications Acetaminophen (Tylenol -) 650 mg PO Q6H PRN PRN Reason: PAIN LEVEL 1-5 Amiodarone HCl (Cordarone -) 200 mg NGT DAILY [facility] Last Admin: 06/14/19 09:41 Dose: 200 mg Aripiprazole (Abilify) 5 mg PO DAILY [facility] Last Admin: 06/14/19 09:42 Dose: 5 mg Calcium Carbonate (Os-Davey 500mg -) 500 mg PO DAILY [facility] Last Admin: 06/14/19 09:44 Dose: 500 mg Cholecalciferol (Vitamin D3 -) 2,000 unit PO DAILY [facility] Last Admin: 06/14/19 09:41 Dose: 2,000 unit Diltiazem HCl (Cardizem -) 30 mg PO TID [facility] Last Admin: 06/14/19 22:19 Dose: 30 mg Enoxaparin Sodium (Lovenox -) 80 mg SQ BID [facility] Last Admin: 06/14/19 22:19 Dose: 80 mg Piperacillin Sod/Tazobactam (Sod 3.375 gm/ Dextrose) 50 mls @ 100 mls/hr IVPB Q8H-IV [facility]; Protocol Last Admin: 06/14/19 19:50 Dose: 100 mls/hr Norepinephrine Bitartrate 8, (000 mcg/ Sodium Chloride) 500 mls @ 18.75 mls/hr IV TITR [facility]; Protocol Last Admin: 06/13/19 17:26 Dose: Not Given Vasopressin 50 units/ Sodium (Chloride) 100 mls @ 4 mls/hr IVPB ASDIR [facility]; Protocol Last Admin: 06/14/19 17:54 Dose: Not Given Propofol (Diprivan -) 1,000,000 mcg in 100 mls @ 2.49 mls/hr IVPB TITR [facility]; Protocol Last Admin: 06/14/19 14:00 Dose: 40 mcg/kg/min, 19.922 mls/hr Insulin Aspart (Novolog Vial Sliding Scale -) 1 vial SQ ACHS [facility]; Protocol Last Admin: 06/15/19 00:54 Dose: Not Given Review of Systems Unable to obtain - Objective Vital Signs: Last Vital Signs Temp Pulse Resp BP Pulse Ox 97.8 F 127 H 16 103/74 99 06/15/19 04:00 06/15/19 06:00 06/15/19 06:00 06/15/19 06:00 06/12/19 20:21 Intake & Output 06/12/19 06/13/19 06/14/19 06/15/19 23:59 23:59 23:59 23:59 Intake Total 2240 2550 2658 890 Output Total 2050 1750 1250 100 Balance 525 092 8732 790 Weight 187 lb 8 oz 183 lb 4 oz 181 lb 12.8 oz 187 lb 11.2 oz Neck: Supple negative JVD no bruit Cardiovascular: S1 S2 Irregularly Irregular Respiratory: Diminished Breath Sounds Bilaterally Gastrointestinal: Soft Benign Normal Bowel Sounds Ext: Edema Bilaterally Labs: CBC, BMP 06/14/19 06:00 06/14/19 06:00 Hepatic Panel Total Bilirubin 0.7 mg/dL (0.2-1) 06/13/19 05:20 AST 10 U/L (15-37) L 06/13/19 05:20 ALT 11 U/L (13-61) L 06/13/19 05:20 Alkaline Phosphatase 100 U/L (45-117) 06/13/19 05:20 Albumin 1.8 g/dl (3.4-5.0) L 06/13/19 05:20 INR, PTT INR 1.20 (0.83-1.09) H 06/08/19 01:30 ABG Results ABG pH 7.48 (7.35-7.45) H 06/11/19 07:50 ABG pCO2 at Pt Temp 39.7 mmHg (35-45) 06/11/19 07:50 ABG pO2 at Pt Temp 115 mmHg (80-100) H 06/11/19 07:50 ABG HCO3 29.4 mmol/L (22-27) H 06/11/19 07:50 ABG O2 Sat (Measured) 98.2 % (95-98) H 06/11/19 07:50 ABG O2 Content 14.8 % vol 06/11/19 07:50 ABG Base Excess 5.8 meq/l (-2-2) H 06/11/19 07:50 Assessment/Plan: ASSESSMENT: 1. Acute hypoxic respiratory failure related to complete right lung collapse/ large pleural effusion post chest tube insertion 2. Hypotension, probable sepsis syndrome on pressors, probable post obstructive pneumonia 3. Metastatic lung carcinoma, brain mets 4. Persistent atrial fibrillation with RVR on Amiodarone and Cardizem therapy- hemodynamics permitting, [id number] score of 5 currntly off of A/C 5. Coronary artery disease with evidence of demand ischemia no clinical angina pectoris 6. Diastolic left ventricular dysfunction with clinical class 0 [employer] classification left ventricular failure 7. Hypertensive cardiovascular disease, currently hypotensive as noted above 8. Diabetes mellitus 9. Hypercholesterolemia 10. History of cerebrovascular disease 11. History of schizophrenia 12. History of ataxia 13. History of osteomyelitis 14. Anemia PLAN: 1. Continue PO Amiodarone, assist with rate control 2. Continue PO Cardizem or may consider Lopressor therapy in substitution, assist with rate control/hemodyanamics permitting 3. Attempt to wean off pressors as tolerated 4. Continue A/C therapy with Lovenox unless it is absolutely contraindicated with caution and close monitoring of CBC/Hg level, maintain hemoglobin equal or greater than 8.0 5. Utilize diuretic therapy/Lasix therapy/as needed with close monitoring of renal function and electrolytes 6. Antibiotics as per the primary team 7. Overall poor prognosis Ubaldo Kim MD
[2019-06-15 07:50] LABS: HEMATOCRIT 32.2 % (35.4-49); HEMOGLOBIN 10.3 GM/dL (11.7-16.9); MCH 26.6 pg (25.7-33.7); MCHC 32.2 g/dl (32.0-35.9); MEAN CELL VOLUME 82.8 fl (80-96); MEAN PLT VOLUME 8.8 fl (7.5-11.1); PLATELET COUNT 219 K/MM3 (134-434); RBC 3.89 M/mm3 (4.00-5.60); RDW 21.5 % (11.9-15.9)
[2019-06-15] MEDS: dilTIAZem HCL 30 MG TABLET (FP) PO SCH ×3 (07:58→21:26)
[2019-06-15] MEDS: PROPOFOL 1,000,000 MCG/100 ML VIAL IVPB SCH ×2 (07:58→21:27)
[2019-06-15] MEDS: NOREPINEPHRINE BITARTRATE 8,000 MCG in SODIUM CHLORIDE 492 ML IV SCH ×2 (07:59→17:11)
[2019-06-15 08:14] LABS: ALBUMIN 1.7 g/dl (3.4-5.0); BILIRUBIN,TOTAL 0.4 mg/dL (0.2-1); BLOOD UREA NITROGEN 11.6 mg/dL (7-18); CALCIUM 7.9 mg/dL (8.5-10.1); CREATININE 0.4 mg/dL (0.55-1.3); MAGNESIUM 2.1 mg/dL (1.8-2.4); POTASSIUM 4.2 mmol/L (3.5-5.1); TOT PROT 5.2 g/dl (6.4-8.2)
[2019-06-15] MEDS ORDERED: PIPERACILLIN/TAZOBACTAM 3.375 GM VIAL IVPB ONE ×2 (09:09)
--- NOTE | 2019-06-15 09:53 | PN ---
Progress Note, Physician - Current Medication List Current Medications: Active Medications Acetaminophen (Tylenol -) 650 mg PO Q6H PRN PRN Reason: PAIN LEVEL 1-5 Amiodarone HCl (Cordarone -) 200 mg NGT DAILY [facility] Last Admin: 06/14/19 09:41 Dose: 200 mg Aripiprazole (Abilify) 5 mg PO DAILY [facility] Last Admin: 06/14/19 09:42 Dose: 5 mg Calcium Carbonate (Os-Davey 500mg -) 500 mg PO DAILY [facility] Last Admin: 06/14/19 09:44 Dose: 500 mg Cholecalciferol (Vitamin D3 -) 2,000 unit PO DAILY [facility] Last Admin: 06/14/19 09:41 Dose: 2,000 unit Diltiazem HCl (Cardizem -) 30 mg PO TID [facility] Last Admin: 06/15/19 07:58 Dose: 30 mg Enoxaparin Sodium (Lovenox -) 80 mg SQ BID [facility] Last Admin: 06/14/19 22:19 Dose: 80 mg Piperacillin Sod/Tazobactam (Sod 3.375 gm/ Dextrose) 50 mls @ 100 mls/hr IVPB Q8H-IV [facility]; Protocol Last Admin: 06/15/19 02:00 Dose: 100 mls/hr Norepinephrine Bitartrate 8, (000 mcg/ Sodium Chloride) 500 mls @ 18.75 mls/hr IV TITR [facility]; Protocol Last Admin: 06/15/19 07:59 Dose: 4 mcg/min, 15 mls/hr Vasopressin 50 units/ Sodium (Chloride) 100 mls @ 4 mls/hr IVPB ASDIR [facility]; Protocol Last Admin: 06/14/19 17:54 Dose: Not Given Propofol (Diprivan -) 1,000,000 mcg in 100 mls @ 2.49 mls/hr IVPB TITR [facility]; Protocol Last Admin: 06/15/19 07:58 Dose: 40 mcg/kg/min, 19.922 mls/hr Insulin Aspart (Novolog Vial Sliding Scale -) 1 vial SQ ACHS [facility]; Protocol Last Admin: 06/15/19 08:01 Dose: Not Given - Objective Vital Signs: Vital Signs Temperature 97.8 F 06/15/19 04:00 Pulse Rate 127 H 06/15/19 06:00 Respiratory Rate 16 06/15/19 06:00 Blood Pressure 103/74 06/15/19 06:00 O2 Sat by Pulse Oximetry (%) 99 06/12/19 20:21 Cardiovascular: Yes: S1, S2 Respiratory: Yes: Mechanically Ventilated Labs: CBC, BMP 06/15/19 06:15 06/15/19 06:15 INR, PTT INR 1.20 (0.83-1.09) H 06/08/19 01:30 Assessment/Plan - Problems (1) SOB (shortness of breath) Assessment/Plan: -CTA Chest:with right lung collapse and large right pleural effusion. No evidence of PE. 5 cm RUL mass with hilar and mediastinal adenopathy, left adrenal enlargement, T3 vertebral body metastases, paravertebral mass, foraminal obstruction by the mass at T2-3, displacement of the cord, left cerebellar 0.7cm and rt. occipital metastasis. -Chest Tube placed -Now on Vent -Pulmonary on board -O2 to keep SpO2>90% -Bronchodilators -IR to place chest drain -Xarelto on hold -Lovenox 80 mg SQ BID for dvt ppx for afib Problems reviewed: Yes Code(s): R06.02 - SHORTNESS OF BREATH (2) Collapse of right lung Problems reviewed: Yes Code(s): J98.11 - ATELECTASIS (3) Pleural effusion Problems reviewed: Yes -Chest Tube in place -Pulmonary on board Code(s): J90 - PLEURAL EFFUSION, NOT ELSEWHERE CLASSIFIED (4) Lung cancer Assessment/Plan: -Oncology consult -Overall poor prognosis=Palliative care Problems reviewed: Yes Code(s): C34.90 - MALIGNANT NEOPLASM OF UNSP PART OF UNSP BRONCHUS OR LUNG (5) Metastatic disease Problems reviewed: Yes Code(s): C79.9 - SECONDARY MALIGNANT NEOPLASM OF UNSPECIFIED SITE (6) Diabetes Assessment/Plan: -recheck A1c -BGM AC HS Problems reviewed: Yes Code(s): E11.9 - TYPE 2 DIABETES MELLITUS WITHOUT COMPLICATIONS (7) Schizophrenia Assessment/Plan: -Continue Abilify Problems reviewed: Yes Code(s): F20.9 - SCHIZOPHRENIA, UNSPECIFIED (8) Afib Assessment/Plan: -Rapid now on drip -chronic -cardiology consult -Lovenox 80 mg SQ BID for afib Problems reviewed: Yes Code(s): I48.91 - UNSPECIFIED ATRIAL FIBRILLATION Qualifiers: Atrial fibrillation type: persistent (9) Hypotension Assessment/Plan: -Hold Lisinopril -Cardiology consult Problems reviewed: Yes Code(s): I95.9 - HYPOTENSION, UNSPECIFIED Mr Theodore has extensive medical history including metastatic cancer and currently on vent due to respiratory failure and large pleural effusion that required a chest tube. I discussed case with Dr Estrella and we Agree that further workup, intervention, or treatment would be medically futile and in addition would only cause undue pain and suffering. I do believe that to continue treatment would increase his suffering and pain therefore I am in agreement with compassionate weaning
--- NOTE | 2019-06-15 10:28 | PN ---
Teaching Attending Note Name of Resident: Sina Cavazos ATTENDING PHYSICIAN STATEMENT I saw and evaluated the patient. I reviewed the resident's note and discussed the case with the resident. I agree with the resident's findings and plan as documented. SUBJECTIVE: Patient seen and examined in the ICU. Remains intubated and sedated. AC Mode of vent. Continued serosanginous drainage from the right pleural catheter. CXR: persistent right complete opacification Intake & Output 06/12/19 06/13/19 06/14/19 06/15/19 23:59 23:59 23:59 23:59 Intake Total 2240 2550 2658 890 Output Total 2050 1750 1250 100 Balance 432 672 1864 790 Weight 187 lb 8 oz 183 lb 4 oz 181 lb 12.8 oz 187 lb 11.2 oz Last Vital Signs Temp Pulse Resp BP Pulse Ox 97.8 F 127 H 16 103/74 99 06/15/19 04:00 06/15/19 06:00 06/15/19 06:00 06/15/19 06:00 06/12/19 20:21 Active Medications Acetaminophen (Tylenol -) 650 mg PO Q6H PRN PRN Reason: PAIN LEVEL 1-5 Amiodarone HCl (Cordarone -) 200 mg NGT DAILY [facility] Last Admin: 06/14/19 09:41 Dose: 200 mg Aripiprazole (Abilify) 5 mg PO DAILY [facility] Last Admin: 06/14/19 09:42 Dose: 5 mg Calcium Carbonate (Os-Davey 500mg -) 500 mg PO DAILY [facility] Last Admin: 06/14/19 09:44 Dose: 500 mg Cholecalciferol (Vitamin D3 -) 2,000 unit PO DAILY [facility] Last Admin: 06/14/19 09:41 Dose: 2,000 unit Diltiazem HCl (Cardizem -) 30 mg PO TID [facility] Last Admin: 06/15/19 07:58 Dose: 30 mg Enoxaparin Sodium (Lovenox -) 80 mg SQ BID [facility] Last Admin: 06/14/19 22:19 Dose: 80 mg Piperacillin Sod/Tazobactam (Sod 3.375 gm/ Dextrose) 50 mls @ 100 mls/hr IVPB Q8H-IV [facility]; Protocol Last Admin: 06/15/19 10:14 Dose: 100 mls/hr Norepinephrine Bitartrate 8, (000 mcg/ Sodium Chloride) 500 mls @ 18.75 mls/hr IV TITR [facility]; Protocol Last Admin: 06/15/19 07:59 Dose: 4 mcg/min, 15 mls/hr Vasopressin 50 units/ Sodium (Chloride) 100 mls @ 4 mls/hr IVPB ASDIR [facility]; Protocol Last Admin: 06/14/19 17:54 Dose: Not Given Propofol (Diprivan -) 1,000,000 mcg in 100 mls @ 2.49 mls/hr IVPB TITR [facility]; Protocol Last Admin: 06/15/19 07:58 Dose: 40 mcg/kg/min, 19.922 mls/hr Insulin Aspart (Novolog Vial Sliding Scale -) 1 vial SQ ACHS [facility]; Protocol Last Admin: 06/15/19 08:01 Dose: Not Given Constitutional: Yes: Intubated and sedated Eyes: Yes: WNL, Conjunctiva Clear HENT: Yes: WNL, Atraumatic, Normocephalic Neck: Yes: WNL, Supple, Trachea Midline Cardiovascular: Yes: Tachycardia, Pulse Irregular Respiratory: Yes: Vented, Diminished on the Right, right CT Gastrointestinal: Yes: WNL, Normal Bowel Sounds, Soft ...Rectal Exam: Yes: Deferred Renal/: Yes: WNL Breast(s): Yes: WNL Musculoskeletal: Yes: WNL Extremities: Yes: WNL Edema: No Peripheral Pulses WNL: Yes Neurological: Yes: Sedated ...Motor Strength: WNL Psychiatric: Yes: Sedated Labs: Laboratory Results - last 24 hr 06/14/19 06/14/19 06/14/19 11:54 17:39 23:31 WBC RBC Hgb Hct MCV MCH MCHC RDW Plt Count MPV Sodium Potassium Chloride Carbon Dioxide Anion Gap BUN Creatinine Est GFR (CKD-EPI)AfAm Est GFR (CKD-EPI)NonAf POC Glucometer 149 153 190 Random Glucose Calcium Phosphorus Magnesium Total Bilirubin AST ALT Alkaline Phosphatase Total Protein Albumin 06/15/19 06/15/19 06:15 06:15 WBC 14.0 H RBC 3.89 L Hgb 10.3 L Hct 32.2 L MCV 82.8 MCH 26.6 MCHC 32.2 RDW 21.5 H Plt Count 219 MPV 8.8 Sodium 139 Potassium 4.2 Chloride 101 Carbon Dioxide 33 H Anion Gap 5 L BUN 11.6 Creatinine 0.4 L Est GFR (CKD-EPI)AfAm 143.45 Est GFR (CKD-EPI)NonAf 123.77 POC Glucometer Random Glucose 158 H Calcium 7.9 L Phosphorus 3.0 Magnesium 2.1 Total Bilirubin 0.4 AST 10 L ALT 10 L Alkaline Phosphatase 101 Total Protein 5.2 L Albumin 1.7 L Assessment/Plan -Acute HYPOXIC RESP FAIL 2/2 R Pleural effusion m/l malignant -Metastatic Non small cell lung CA -HTN -HLD -DM -A-Fib -CAD -SCHIZO PLAN: -AC Mode of vent, wean FiO2 as tolerated -Right Chest Tube to suction drain -Rate Control -FS's -SSI -Strict I's & O's -Replete e-lytes -SCDs -GI ppx -Requires ICU monitoring I have discussed Mr Becerril condition in detail with his Primary MD and his oncologist. Mr Theodore, initially did not want an extensive workup or treatment when we first discovered his lung mass. He did agree to allow me to perform a bronchoscopy to establish a diagnosis. Since that time, his overall condition has rapidly deteriorated. He is cancer is very wide spread and will only become more advanced. There is no possibility for cure or realistic control. He has complete atelectasis of the right lung lung due to tumor burden and brain metastasis. His PMD, oncologist, and myself are all in agreement that further workup, intervention, or treatment would be medically futile and in addition would only cause undue pain and suffering. I am sure that Julio would not this course of action as I have spoken to him previously about chronic life support (ventilation). I feel it is on his best interest and consistent with his previous wishes to make him as comfortable as possible and perform a compassionate extubation. Dr Luna Critical care time spent in reviewing chart, evaluating patient and formulating plan - 36 minutes.
[2019-06-15] MEDS: ARIPiprazole 5 MG TABLET PO SCH (10:30)
[2019-06-15] MEDS: AMIODARONE HCL 200 MG TABLET NGT SCH (10:30)
[2019-06-15] MEDS: CALCIUM (OYSTER SHELL) 500 MG TABLET (FP) PO SCH (10:30)
[2019-06-15] MEDS: ENOXAPARIN NA (PORCINE) 80 MG/0.8 ML DISP.SYRIN SQ SCH ×2 (10:41→21:26)
[2019-06-15] MEDS: CHOLECALCIFEROL (VIT D3) 1,000 UNIT (25 MCG) TABLET PO SCH (10:42)
--- NOTE | 2019-06-15 10:57 | PN ---
Physical Exam: SUBJECTIVE: Patient seen and examined OBJECTIVE: Vital Signs Period Temp Pulse Resp BP Sys/Stock Pulse Ox Last 24 Hr 97.8 F-98 F 104-127 14-20 87-103/64-76 GENERAL: The patient is intubated and sedated HEAD: Normal with no signs of trauma. NECK: Trachea midline, full range of motion, supple. LUNGS: diminished breath sounds on the right, crackles on the left HEART: Regular rate and rhythm, S1, S2 ABDOMEN: Soft, nontender, nondistended, normoactive bowel sounds, EXTREMITIES: distal extremities cold to touch SKIN: skin with some distal mottled changes Laboratory Results - last 24 hr 06/14/19 06/14/19 06/14/19 11:54 17:39 23:31 WBC RBC Hgb Hct MCV MCH MCHC RDW Plt Count MPV Sodium Potassium Chloride Carbon Dioxide Anion Gap BUN Creatinine Est GFR (CKD-EPI)AfAm Est GFR (CKD-EPI)NonAf POC Glucometer 149 153 190 Random Glucose Calcium Phosphorus Magnesium Total Bilirubin AST ALT Alkaline Phosphatase Total Protein Albumin 06/15/19 06/15/19 06:15 06:15 WBC 14.0 H RBC 3.89 L Hgb 10.3 L Hct 32.2 L MCV 82.8 MCH 26.6 MCHC 32.2 RDW 21.5 H Plt Count 219 MPV 8.8 Sodium 139 Potassium 4.2 Chloride 101 Carbon Dioxide 33 H Anion Gap 5 L BUN 11.6 Creatinine 0.4 L Est GFR (CKD-EPI)AfAm 143.45 Est GFR (CKD-EPI)NonAf 123.77 POC Glucometer Random Glucose 158 H Calcium 7.9 L Phosphorus 3.0 Magnesium 2.1 Total Bilirubin 0.4 AST 10 L ALT 10 L Alkaline Phosphatase 101 Total Protein 5.2 L Albumin 1.7 L Active Medications Generic Name Dose Route Start Last Admin Trade Name Freq PRN Reason Stop Dose Admin Acetaminophen 650 mg 06/09/19 05:59 Tylenol - PO Q6H PRN PAIN LEVEL 1-5 Amiodarone HCl 200 mg 06/12/19 10:00 06/14/19 09:41 Cordarone - NGT 200 mg DAILY [facility] Administration Aripiprazole 5 mg 06/09/19 10:00 06/14/19 09:42 Abilify PO 5 mg DAILY [facility] Administration Calcium Carbonate 500 mg 06/09/19 10:00 06/14/19 09:44 Os-Davey 500mg - PO 500 mg DAILY [facility] Administration Cholecalciferol 2,000 unit 06/09/19 10:00 06/15/19 10:42 Vitamin D3 - PO 2,000 unit DAILY [facility] Administration Diltiazem HCl 30 mg 06/08/19 14:00 06/15/19 07:58 Cardizem - PO 30 mg TID [facility] Administration Enoxaparin Sodium 80 mg 06/09/19 10:00 06/15/19 10:41 Lovenox - SQ 80 mg BID [facility] Administration Piperacillin Sod/Tazobactam 50 mls @ 100 mls/hr 06/09/19 15:00 06/15/19 10:14 Sod 3.375 gm/ Dextrose IVPB 100 mls/hr Q8H-IV [facility] Administration Protocol Norepinephrine Bitartrate 8, 500 mls @ 18.75 mls/hr 06/09/19 16:15 06/15/19 07:59 000 mcg/ Sodium Chloride IV 4 mcg/min TITR [facility] 15 mls/hr Administration Protocol 5 MCG/MIN Vasopressin 50 units/ Sodium 100 mls @ 4 mls/hr 06/09/19 16:45 06/14/19 17:54 Chloride IVPB Not Given ASDIR [facility] Protocol 2 UNITS/HR Propofol 1,000,000 mcg in 100 mls @ 2.49 mls/hr 06/09/19 22:00 06/15/19 07:58 Diprivan - IVPB 40 mcg/kg/min TITR [facility] 19.922 mls/hr Administration Protocol 5 MCG/KG/MIN Insulin Aspart 1 vial 06/09/19 07:00 06/15/19 08:01 Novolog Vial Sliding Scale - SQ Not Given ACHS [facility] Protocol ASSESSMENT/PLAN: 68 y/o M from [facility] with hx of HTN, HLD, A-Fib on AC, DM, CAD, Schizo, & recently diagnosed 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 Neuro: - sedated, intubated on propofol CV: - MAPs 60-80s -> curently on levo and vasopressin, wean as tolerated - afib HR 120s-130s; now on Amio 200mg QD in addition to Dilt 30mg TID - continue to monitor closely and avoid hypotension, as chest tube continues to drain Respiratory: -right sided effusion likely malignant with compressive atelectasis vs compressive malignancy - s/p chest tube; with continual drainage - vent rate 14, TV 450, PEEP 5, FIO2 50% GI: - continue tube feeds - aspiration precautions Renal: - urinary retention; trevino - Cr stable ID: - BCX(06/08/19): coag-neg staph; Gram positive bacili - BCX(06/09/19): NGTD - ID(Dr Littlejohn) consulted --continue zosyn DVT ppx: Lovenox 80 bid FEN/LTD: - replete lytes prn - RIJ, right lateral chest tube, ETT, PIV x2 Dispo: ICU team will continue to follow; NH and assisted living contacted and patient with no known relatives or POA; patient submitted to ethics committee for review; pending discussion amongst attendings for terminal extubation given patient's wishes prior to mental status deterioration Visit type - Emergency Visit Emergency Visit: No - New Patient This patient is new to me today: No - Critical Care Critical Care patient: Yes Total Critical Care Time (in minutes): 37 Critical Care Statement: The care of this patient involved high complexity decision making to prevent further life threatening deterioration of the patient 's condition and/or to evaluate & treat vital organ system(s) failure or risk of failure. ATTENDING PHYSICIAN STATEMENT I saw and evaluated the patient. I reviewed the resident's note and discussed the case with the resident. I agree with the resident's findings and plan as documented. SUBJECTIVE: OBJECTIVE: ASSESSMENT AND PLAN:
--- NOTE | 2019-06-15 11:49 | PN ---
Progress Note, Physician History of Present Illness: REMAINS ON VENTILATOR NO ACUTE DISTRESS TACHYCARDIC AFEBRILE WBC REMAINS SL ELEVATED CHEST TUBE IN PLACE BC, PLEURAL FLUID C/S NO GROWTH CXR OPACIFIED R HEMITHORAX - Current Medication List Current Medications: Active Medications Acetaminophen (Tylenol -) 650 mg PO Q6H PRN PRN Reason: PAIN LEVEL 1-5 Amiodarone HCl (Cordarone -) 200 mg NGT DAILY [facility] Last Admin: 06/14/19 09:41 Dose: 200 mg Aripiprazole (Abilify) 5 mg PO DAILY [facility] Last Admin: 06/14/19 09:42 Dose: 5 mg Calcium Carbonate (Os-Davey 500mg -) 500 mg PO DAILY [facility] Last Admin: 06/14/19 09:44 Dose: 500 mg Cholecalciferol (Vitamin D3 -) 2,000 unit PO DAILY [facility] Last Admin: 06/15/19 10:42 Dose: 2,000 unit Diltiazem HCl (Cardizem -) 30 mg PO TID [facility] Last Admin: 06/15/19 07:58 Dose: 30 mg Enoxaparin Sodium (Lovenox -) 80 mg SQ BID [facility] Last Admin: 06/15/19 10:41 Dose: 80 mg Piperacillin Sod/Tazobactam (Sod 3.375 gm/ Dextrose) 50 mls @ 100 mls/hr IVPB Q8H-IV [facility]; Protocol Last Admin: 06/15/19 10:14 Dose: 100 mls/hr Norepinephrine Bitartrate 8, (000 mcg/ Sodium Chloride) 500 mls @ 18.75 mls/hr IV TITR [facility]; Protocol Last Admin: 06/15/19 07:59 Dose: 4 mcg/min, 15 mls/hr Vasopressin 50 units/ Sodium (Chloride) 100 mls @ 4 mls/hr IVPB ASDIR [facility]; Protocol Last Admin: 06/14/19 17:54 Dose: Not Given Propofol (Diprivan -) 1,000,000 mcg in 100 mls @ 2.49 mls/hr IVPB TITR [facility]; Protocol Last Admin: 06/15/19 07:58 Dose: 40 mcg/kg/min, 19.922 mls/hr Insulin Aspart (Novolog Vial Sliding Scale -) 1 vial SQ ACHS [facility]; Protocol Last Admin: 06/15/19 08:01 Dose: Not Given - Objective Vital Signs: Vital Signs Temperature 97.8 F 06/15/19 04:00 Pulse Rate 127 H 06/15/19 06:00 Respiratory Rate 15 06/15/19 09:10 Blood Pressure 103/74 06/15/19 06:00 O2 Sat by Pulse Oximetry (%) 99 06/12/19 20:21 Cardiovascular: Yes: Regular Rate and Rhythm, S1, S2 Respiratory: Yes: Diminished Gastrointestinal: Yes: Normal Bowel Sounds, Soft. No: Tenderness Edema: Yes Labs: CBC, BMP 06/15/19 06:15 06/15/19 06:15 INR, PTT INR 1.20 (0.83-1.09) H 06/08/19 01:30 Assessment/Plan RESP FAILURE PLEURAL EFFUSION ? PNEUMONIA +BC LIKELY CONTAMINANT LEUKOCYTOSIS METASTATIC CA REPEAT BC, PLEURAL FLUID C/S NO GROWTH CONTINUE EMPIRIC ZOSYN
[2019-06-15] MEDS ORDERED: PT OWN MED DRAWER 7, Y5N ONE (12:05)
[2019-06-15] MEDS: VASOPRESSIN 50 UNITS in SODIUM CHLORIDE 97.5 ML IVPB SCH (17:12)
[2019-06-16] MEDS ORDERED: PIPERACILLIN/TAZOBACTAM 3.375 GM VIAL IVPB ONE ×3 (01:02→18:08)
[2019-06-16] MEDS ORDERED: DEXTROSE 5%-WATER - 50 ML IVPB ONE ×3 (01:02→18:08)
[2019-06-16] MEDS: PIPERACILLIN/TAZOB 3.375 GM 3.375 GM in DEXTROSE 5%-WATER - 50 ML IVPB SCH ×3 (01:42→18:14)
[2019-06-16] MEDS: dilTIAZem HCL 30 MG TABLET (FP) PO SCH ×3 (06:34→21:40)
[2019-06-16 06:44] LABS: BLOOD UREA NITROGEN 14.3 mg/dL (7-18); CREATININE 0.5 mg/dL (0.55-1.3); MAGNESIUM 2.1 mg/dL (1.8-2.4); PHOSPHOROUS 3.5 mg/dL (2.5-4.9); POTASSIUM 4.3 mmol/L (3.5-5.1)
[2019-06-16] MEDS ORDERED: NOREPINEPHRINE BITARTRATE 4 MG/4 ML ML IV ONE (06:46)
[2019-06-16 06:47] LABS: HEMATOCRIT 34.2 % (35.4-49); MCH 26.2 pg (25.7-33.7); MCHC 32.1 g/dl (32.0-35.9); MEAN CELL VOLUME 81.7 fl (80-96); MEAN PLT VOLUME 8.7 fl (7.5-11.1); PLATELET COUNT 232 K/MM3 (134-434); RBC 4.19 M/mm3 (4.00-5.60); RDW 21.5 % (11.9-15.9); WHITE BLOOD COUNT 13.6 K/mm3 (4.0-10.0)
[2019-06-16] MEDS: INSULIN SLIDING SCALE (NOVOLOG) 1 VIAL SQ SCH ×4 (07:09→22:43)
--- NOTE | 2019-06-16 07:21 | PN ---
Progress Note (short form) - Note Progress Note: Chief Complaint: Events noted, notes reviewed, remains sedated and intubated, hypotensive on pressors, remains in atrial fibrillation with periods of RVR remains on Amiodarone and Cardizem- hemodynamics permitting History of Present Illness: Seen and examined in the ICU. Events noted, notes reviewed, remains sedated and intubated, hypotensive on pressors, remains in atrial fibrillation with periods of RVR remains on Amiodarone and Cardizem- hemodynamics permitting Chest x-ray 06/14/2019 noted no change Current Medications: Current Medications Acetaminophen (Tylenol -) 650 mg PO Q6H PRN PRN Reason: PAIN LEVEL 1-5 Amiodarone HCl (Cordarone -) 200 mg NGT DAILY [facility] Last Admin: 06/15/19 10:30 Dose: 200 mg Aripiprazole (Abilify) 5 mg PO DAILY [facility] Last Admin: 06/15/19 10:30 Dose: 5 mg Calcium Carbonate (Os-Davey 500mg -) 500 mg PO DAILY [facility] Last Admin: 06/15/19 10:30 Dose: 500 mg Cholecalciferol (Vitamin D3 -) 2,000 unit PO DAILY [facility] Last Admin: 06/15/19 10:42 Dose: 2,000 unit Diltiazem HCl (Cardizem -) 30 mg PO TID [facility] Last Admin: 06/16/19 06:34 Dose: 30 mg Enoxaparin Sodium (Lovenox -) 80 mg SQ BID [facility] Last Admin: 06/15/19 21:26 Dose: 80 mg Piperacillin Sod/Tazobactam (Sod 3.375 gm/ Dextrose) 50 mls @ 100 mls/hr IVPB Q8H-IV [facility]; Protocol Last Admin: 06/16/19 01:42 Dose: 100 mls/hr Norepinephrine Bitartrate 8, (000 mcg/ Sodium Chloride) 500 mls @ 18.75 mls/hr IV TITR [facility]; Protocol Last Admin: 06/15/19 17:11 Dose: 6 mcg/min, 22.5 mls/hr Vasopressin 50 units/ Sodium (Chloride) 100 mls @ 4 mls/hr IVPB ASDIR [facility]; Protocol Last Admin: 06/15/19 17:12 Dose: Not Given Propofol (Diprivan -) 1,000,000 mcg in 100 mls @ 2.49 mls/hr IVPB TITR [facility]; Protocol Last Titration: 06/16/19 04:41 Dose: 30 mcg/kg/min, 14.941 mls/hr Insulin Aspart (Novolog Vial Sliding Scale -) 1 vial SQ ACHS [facility]; Protocol Last Admin: 06/16/19 07:09 Dose: Not Given Review of Systems Unable to obtain - Objective Vital Signs: Last Vital Signs Temp Pulse Resp BP Pulse Ox 98.0 F 116 H 14 90/69 97 06/15/19 16:00 06/16/19 04:00 06/16/19 04:45 06/16/19 04:00 06/15/19 21:00 Intake & Output 06/13/19 06/14/19 06/15/19 06/16/19 23:59 23:59 23:59 23:59 Intake Total 2550 2658 2636 Output Total 1750 1250 1350 Balance 800 1408 1286 Weight 183 lb 4 oz 181 lb 12.8 oz 187 lb 11.2 oz Neck: Supple negative JVD no bruit Cardiovascular: S1 S2 Irregularly Irregular Respiratory: Diminished Breath Sounds Bilaterally Gastrointestinal: Soft Benign Normal Bowel Sounds Ext: Edema Bilaterally Labs: CBC, BMP 06/16/19 05:20 06/16/19 05:20 Hepatic Panel Total Bilirubin 0.4 mg/dL (0.2-1) 06/15/19 06:15 AST 10 U/L (15-37) L 06/15/19 06:15 ALT 10 U/L (13-61) L 06/15/19 06:15 Alkaline Phosphatase 101 U/L (45-117) 06/15/19 06:15 Albumin 1.7 g/dl (3.4-5.0) L 06/15/19 06:15 INR, PTT INR 1.20 (0.83-1.09) H 06/08/19 01:30 Assessment/Plan: ASSESSMENT: 1. Acute hypoxic respiratory failure related to complete right lung collapse/ large pleural effusion post chest tube insertion 2. Hypotension, probable sepsis syndrome on pressors, probable post obstructive pneumonia 3. Metastatic lung carcinoma, brain mets 4. Persistent atrial fibrillation with RVR on Amiodarone and Cardizem therapy- hemodynamics permitting, [id number] score of 5 currntly on Lovenox 5. Coronary artery disease with evidence of demand ischemia no clinical angina pectoris 6. Diastolic left ventricular dysfunction with clinical class 0 [place] [employer] classification left ventricular failure 7. Hypertensive cardiovascular disease, currently hypotensive as noted above 8. Diabetes mellitus 9. Hypercholesterolemia 10. History of cerebrovascular disease 11. History of schizophrenia 12. History of ataxia 13. History of osteomyelitis 14. Anemia PLAN: 1. Continue PO Amiodarone, assist with rate control 2. Continue PO Cardizem or may consider Lopressor therapy in substitution, assist with rate control/hemodyanamics permitting 3. Attempt to wean off pressors as tolerated 4. Continue A/C therapy with Lovenox unless it is absolutely contraindicated with caution and close monitoring of CBC/Hg level, maintain hemoglobin equal or greater than 8.0 5. Utilize diuretic therapy/Lasix therapy/as needed with close monitoring of renal function and electrolytes 6. Antibiotics as per the primary team 7. Overall poor prognosis and outcome considering the above noted co- morbidities Ubaldo Kim MD
--- NOTE | 2019-06-16 08:06 | PN ---
Progress Note, Physician Chief Complaint: EVENTS AND NOTES REVIEWED PATIENT IN ICU ON VENT SUPPORT WITH CHEST TUBE FOR LUNG COLLAPSE AND NEOPLASM WITH METASTASIS. SEDATED UN RESPONSIVE - Current Medication List Current Medications: Active Medications Acetaminophen (Tylenol -) 650 mg PO Q6H PRN PRN Reason: PAIN LEVEL 1-5 Amiodarone HCl (Cordarone -) 200 mg NGT DAILY [facility] Last Admin: 06/15/19 10:30 Dose: 200 mg Aripiprazole (Abilify) 5 mg PO DAILY [facility] Last Admin: 06/15/19 10:30 Dose: 5 mg Calcium Carbonate (Os-Davey 500mg -) 500 mg PO DAILY [facility] Last Admin: 06/15/19 10:30 Dose: 500 mg Cholecalciferol (Vitamin D3 -) 2,000 unit PO DAILY [facility] Last Admin: 06/15/19 10:42 Dose: 2,000 unit Diltiazem HCl (Cardizem -) 30 mg PO TID [facility] Last Admin: 06/16/19 06:34 Dose: 30 mg Enoxaparin Sodium (Lovenox -) 80 mg SQ BID [facility] Last Admin: 06/15/19 21:26 Dose: 80 mg Piperacillin Sod/Tazobactam (Sod 3.375 gm/ Dextrose) 50 mls @ 100 mls/hr IVPB Q8H-IV [facility]; Protocol Last Admin: 06/16/19 01:42 Dose: 100 mls/hr Norepinephrine Bitartrate 8, (000 mcg/ Sodium Chloride) 500 mls @ 18.75 mls/hr IV TITR [facility]; Protocol Last Admin: 06/15/19 17:11 Dose: 6 mcg/min, 22.5 mls/hr Vasopressin 50 units/ Sodium (Chloride) 100 mls @ 4 mls/hr IVPB ASDIR [facility]; Protocol Last Admin: 06/15/19 17:12 Dose: Not Given Propofol (Diprivan -) 1,000,000 mcg in 100 mls @ 2.49 mls/hr IVPB TITR [facility]; Protocol Last Titration: 06/16/19 04:41 Dose: 30 mcg/kg/min, 14.941 mls/hr Insulin Aspart (Novolog Vial Sliding Scale -) 1 vial SQ ACHS [facility]; Protocol Last Admin: 06/16/19 07:09 Dose: Not Given - Objective Vital Signs: Vital Signs Temperature 98.0 F 06/15/19 16:00 Pulse Rate 116 H 06/16/19 04:00 Respiratory Rate 14 06/16/19 04:45 Blood Pressure 90/69 06/16/19 04:00 O2 Sat by Pulse Oximetry (%) 97 06/15/19 21:00 Constitutional: Yes: Other Cardiovascular: Yes: Pulse Irregular Respiratory: Yes: Diminished, Mechanically Ventilated Gastrointestinal: Yes: Soft Genitourinary: Yes: Padilla Present Musculoskeletal: Yes: Muscle Weakness Extremities: Yes: Other Edema: Yes Wound/Incision: Yes: Draining (CHESTTUBE SANGUINOUS DISCHARGE) Neurological: Yes: Confusion, Weakness Labs: CBC, BMP 06/16/19 05:20 06/16/19 05:20 INR, PTT INR 1.20 (0.83-1.09) H 06/08/19 01:30 Problem List - Problems (1) Collapse of right lung Code(s): J98.11 - ATELECTASIS (2) Hypotension Code(s): I95.9 - HYPOTENSION, UNSPECIFIED (3) Pleural effusion Code(s): J90 - PLEURAL EFFUSION, NOT ELSEWHERE CLASSIFIED (4) SOB (shortness of breath) Code(s): R06.02 - SHORTNESS OF BREATH (5) Abnormal laboratory results for respiratory system Code(s): R84.9 - UNSP ABNORMAL FINDING IN SPECIMENS FROM RESP ORG/THRX (6) Lung cancer Code(s): C34.90 - MALIGNANT NEOPLASM OF UNSP PART OF UNSP BRONCHUS OR LUNG (7) Mediastinal lymphadenopathy Code(s): R59.0 - LOCALIZED ENLARGED LYMPH NODES (8) Metastatic disease Code(s): C79.9 - SECONDARY MALIGNANT NEOPLASM OF UNSPECIFIED SITE (9) S/P radiation therapy Code(s): Z92.3 - PERSONAL HISTORY OF IRRADIATION (10) Afib Code(s): I48.91 - UNSPECIFIED ATRIAL FIBRILLATION Qualifiers: Atrial fibrillation type: persistent (11) Anemia Code(s): D64.9 - ANEMIA, UNSPECIFIED Qualifiers: Anemia type: unspecified type Qualified Code(s): D64.9 - Anemia, unspecified (12) Ataxia Code(s): R27.0 - ATAXIA, UNSPECIFIED (13) Diabetes Code(s): E11.9 - TYPE 2 DIABETES MELLITUS WITHOUT COMPLICATIONS (14) Diabetic foot ulcer Code(s): E11.621 - TYPE 2 DIABETES MELLITUS WITH FOOT ULCER; L97.509 - NON- PRESSURE CHRONIC ULCER OTH PRT UNSP FOOT W UNSP SEVERITY (15) Diabetic peripheral vascular disease Code(s): E11.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 (16) HTN (hypertension) Code(s): I10 - ESSENTIAL (PRIMARY) HYPERTENSION Qualifiers: Hypertension type: essential hypertension Qualified Code(s): I10 - Essential (primary) hypertension (17) Schizophrenia Code(s): F20.9 - SCHIZOPHRENIA, UNSPECIFIED Assessment/Plan I HAVE REVIEWED ALL NOTES AND PROGNOSIS WITH POSSIBLE TREATMENTS. I AGREE WITH THE ICU NOTE OF DR WESTBROOK THAT MR PETRONA DID NOT WANT AN EXTENSIVE AGGRESSIVE WORKUP AT THIS POINT WHERE RECOVERY IS UNLIKELY. LUNG CANCER WITH METS/COLLAPSED LUNG WITH ANEMIA/SEPSIS AND RESPIRATORY FAILURE REQUIRING VENT SUPPORT. I AGREE WITH A COMPASSIONATE WEAN WILL DISCUSS WITH CASE MANAGEMENT AND PALLIATIVE CARE. CONTINUE AC MODE VENT SUPPORT BP STABILIZED WITH SUPPORT WOUND CARE DRAIN CHEST TUBE PADILLA IN PLACE
[2019-06-16] MEDS: CALCIUM (OYSTER SHELL) 500 MG TABLET (FP) PO SCH (10:00)
[2019-06-16] MEDS: AMIODARONE HCL 200 MG TABLET NGT SCH (10:04)
[2019-06-16] MEDS: ARIPiprazole 5 MG TABLET PO SCH (10:04)
[2019-06-16] MEDS: ENOXAPARIN NA (PORCINE) 80 MG/0.8 ML DISP.SYRIN SQ SCH ×2 (10:04→21:40)
[2019-06-16] MEDS: CHOLECALCIFEROL (VIT D3) 1,000 UNIT (25 MCG) TABLET PO SCH (10:05)
--- NOTE | 2019-06-16 12:51 | PN ---
Teaching Attending Note Name of Resident: Horacio Canales ATTENDING PHYSICIAN STATEMENT I saw and evaluated the patient. I reviewed the resident's note and discussed the case with the resident. I agree with the resident's findings and plan as documented. SUBJECTIVE: Pt seen and examined in the ICU. Remains intubated, sedated. No pressors. Chest tube draining serous fluid. Above notes reviewed and appreciated. OBJECTIVE: Vital Signs Period Temp Pulse Resp BP Sys/Stock Pulse Ox Last 24 Hr 98.0 F-99.2 F 97-141 14-18 82-114/63-93 94-97 Intake & Output 06/13/19 06/14/19 06/15/19 06/16/19 23:59 23:59 23:59 23:59 Intake Total 2550 2658 2636 271 Output Total 1750 1250 1350 700 Balance 800 1408 1286 -429 Weight 83.121 kg 82.463 kg 85.139 kg 80.513 kg Gen: intubated, sedated Heart: RRR Lung: absent breath sounds right Abd: soft, nontender Ext: no edema CBC, BMP 06/16/19 05:20 06/16/19 05:20 Active Medications Acetaminophen (Tylenol -) 650 mg PO Q6H PRN PRN Reason: PAIN LEVEL 1-5 Amiodarone HCl (Cordarone -) 200 mg NGT DAILY [facility] Last Admin: 06/16/19 10:04 Dose: 200 mg Aripiprazole (Abilify) 5 mg PO DAILY [facility] Last Admin: 06/16/19 10:04 Dose: 5 mg Calcium Carbonate (Os-Davey 500mg -) 500 mg PO DAILY [facility] Last Admin: 06/15/19 10:30 Dose: 500 mg Cholecalciferol (Vitamin D3 -) 2,000 unit PO DAILY [facility] Last Admin: 06/16/19 10:05 Dose: 2,000 unit Diltiazem HCl (Cardizem -) 30 mg PO TID [facility] Last Admin: 06/16/19 06:34 Dose: 30 mg Enoxaparin Sodium (Lovenox -) 80 mg SQ BID [facility] Last Admin: 06/16/19 10:04 Dose: 80 mg Piperacillin Sod/Tazobactam (Sod 3.375 gm/ Dextrose) 50 mls @ 100 mls/hr IVPB Q8H-IV [facility]; Protocol Last Admin: 06/16/19 10:04 Dose: 100 mls/hr Norepinephrine Bitartrate 8, (000 mcg/ Sodium Chloride) 500 mls @ 18.75 mls/hr IV TITR [facility]; Protocol Last Admin: 06/15/19 17:11 Dose: 6 mcg/min, 22.5 mls/hr Vasopressin 50 units/ Sodium (Chloride) 100 mls @ 4 mls/hr IVPB [facility]; Protocol Last Admin: 06/15/19 17:12 Dose: Not Given Propofol (Diprivan -) 1,000,000 mcg in 100 mls @ 2.49 mls/hr IVPB TITR [facility]; Protocol Last Titration: 06/16/19 04:41 Dose: 30 mcg/kg/min, 14.941 mls/hr Insulin Aspart (Novolog Vial Sliding Scale -) 1 vial SQ ACHS [facility]; Protocol Last Admin: 06/16/19 07:09 Dose: Not Given ASSESSMENT AND PLAN: Acute Hypoxic Respiratory Failure Metastatic Lung Cancer with Right Main Stem Obstruction and Brain Mets Pleural Effusion s/p chest tube placement Pneumonia likely Post Obstructive Septic Shock resolving Atrial Fibrillation with RVR CAD LV Diastolic Dysfunction HTN DM Hypercholesterolemia Schizophrenia Anemia - continue antibiotics - off pressors, maintain MAP >65 - rate control - continue anticoagulation - agree that pt with terminal illness with progressive disease and tumor burden - continuing aggressive treatments would only promote suffering without improving quality of life - recommend comfort measures due to medical futility critical care time spent in reviewing chart, evaluating patient and formulating plan 35 min
--- NOTE | 2019-06-16 12:58 | PN ---
Physical Exam: SUBJECTIVE: Patient seen and examined NAEON intubated and sedate OBJECTIVE: Vital Signs Period Temp Pulse Resp BP Sys/Stock Pulse Ox Last 24 Hr 98.0 F-99.2 F 97-141 14-18 82-114/63-93 94-97 GENERAL: The patient is intubated and sedated HEAD: Normal with no signs of trauma. NECK: Trachea midline. RIJ in place LUNGS: diminished breath sounds on the right, crackles on the left. Right chest tube with serous drainage into pleuravac HEART: Regular rate and rhythm, S1, S2 ABDOMEN: Soft, nontender, nondistended, normoactive bowel sounds, EXTREMITIES: distal extremities cold to touch, mottling feet b/l SKIN: skin with some distal mottled changes Laboratory Results - last 24 hr 06/15/19 06/15/19 06/15/19 06:18 16:47 22:11 WBC RBC Hgb Hct MCV MCH MCHC RDW Plt Count MPV Sodium Potassium Chloride Carbon Dioxide Anion Gap BUN Creatinine Est GFR (CKD-EPI)AfAm Est GFR (CKD-EPI)NonAf POC Glucometer 170 140 182 Random Glucose Calcium Phosphorus Magnesium 06/16/19 06/16/19 05:20 05:20 WBC 13.6 H RBC 4.19 Hgb 11.0 L Hct 34.2 L MCV 81.7 MCH 26.2 MCHC 32.1 RDW 21.5 H Plt Count 232 MPV 8.7 Sodium 141 Potassium 4.3 Chloride 101 Carbon Dioxide 33 H Anion Gap 6 L BUN 14.3 Creatinine 0.5 L Est GFR (CKD-EPI)AfAm 130.88 Est GFR (CKD-EPI)NonAf 112.92 POC Glucometer Random Glucose 172 H Calcium 8.0 L Phosphorus 3.5 Magnesium 2.1 Active Medications Generic Name Dose Route Start Last Admin Trade Name Freq PRN Reason Stop Dose Admin Acetaminophen 650 mg 06/09/19 05:59 Tylenol - PO Q6H PRN PAIN LEVEL 1-5 Amiodarone HCl 200 mg 06/12/19 10:00 06/16/19 10:04 Cordarone - NGT 200 mg DAILY [facility] Administration Aripiprazole 5 mg 06/09/19 10:00 06/16/19 10:04 Abilify PO 5 mg DAILY [facility] Administration Calcium Carbonate 500 mg 06/09/19 10:00 06/15/19 10:30 Os-Davey 500mg - PO 500 mg DAILY [facility] Administration Cholecalciferol 2,000 unit 06/09/19 10:00 06/16/19 10:05 Vitamin D3 - PO 2,000 unit DAILY [facility] Administration Diltiazem HCl 30 mg 06/08/19 14:00 06/16/19 06:34 Cardizem - PO 30 mg TID [facility] Administration Enoxaparin Sodium 80 mg 06/09/19 10:00 06/16/19 10:04 Lovenox - SQ 80 mg BID [facility] Administration Piperacillin Sod/Tazobactam 50 mls @ 100 mls/hr 06/09/19 15:00 06/16/19 10:04 Sod 3.375 gm/ Dextrose IVPB 100 mls/hr Q8H-IV [facility] Administration Protocol Norepinephrine Bitartrate 8, 500 mls @ 18.75 mls/hr 06/09/19 16:15 06/15/19 17:11 000 mcg/ Sodium Chloride IV 6 mcg/min TITR [facility] 22.5 mls/hr Administration Protocol 5 MCG/MIN Vasopressin 50 units/ Sodium 100 mls @ 4 mls/hr 06/09/19 16:45 06/15/19 17:12 Chloride IVPB Not Given ASDIR [facility] Protocol 2 UNITS/HR Propofol 1,000,000 mcg in 100 mls @ 2.49 mls/hr 06/09/19 22:00 06/16/19 04:41 Diprivan - IVPB 30 mcg/kg/min TITR [facility] 14.941 mls/hr Titration Protocol 5 MCG/KG/MIN Insulin Aspart 1 vial 06/09/19 07:00 06/16/19 07:09 Novolog Vial Sliding Scale - SQ Not Given ACHS [facility] Protocol ASSESSMENT/PLAN: 68 y/o M from [facility] with hx of HTN, HLD, A-Fib on AC, DM, CAD, Schizo, & recently diagnosed 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 Neuro: - sedated, intubated on propofol CV: - MAPs 60-80s -> curently on levo and vasopressin, wean as tolerated - afib HR 120s-130s; now on Amio 200mg QD in addition to Dilt 30mg TID - continue to monitor closely and avoid hypotension, as chest tube continues to drain Respiratory: -right sided effusion likely malignant with compressive atelectasis vs compressive malignancy - s/p chest tube; with continual drainage - vent rate 14, TV 450, PEEP 5, FIO2 40% GI: - continue tube feeds - aspiration precautions Renal: - urinary retention; trevino - Cr stable ID: - BCX(06/08/19): coag-neg staph; Gram positive bacili - BCX(06/09/19): NGTD - ID(Dr Littlejohn) consulted --continue zosyn DVT ppx: Lovenox 80 bid FEN/LTD: - replete lytes prn - TF Glucerna - RIJ, right lateral chest tube, ETT, PIV x2 Dispo: ICU team will continue to follow; NH and assisted living contacted and patient with no known relatives or POA; patient submitted to ethics committee for review; pending discussion amongst attendings for terminal extubation given patient's wishes prior to mental status deterioration. Visit type - Emergency Visit Emergency Visit: No - New Patient This patient is new to me today: No - Critical Care Critical Care patient: Yes Total Critical Care Time (in minutes): 35 Critical Care Statement: The care of this patient involved high complexity decision making to prevent further life threatening deterioration of the patient's condition and/or to evaluate & treat vital organ system(s) failure or risk of failure. ATTENDING PHYSICIAN STATEMENT I saw and evaluated the patient. I reviewed the resident's note and discussed the case with the resident. I agree with the resident's findings and plan as documented. SUBJECTIVE: OBJECTIVE: ASSESSMENT AND PLAN:
--- NOTE | 2019-06-16 14:23 | PN ---
Progress Note, Physician History of Present Illness: REMAINS ON VENTILATOR NO ACUTE DISTRESS TACHYCARDIC AFEBRILE WBC REMAINS SL ELEVATED CHEST TUBE IN PLACE BC, PLEURAL FLUID C/S NO GROWTH CXR OPACIFIED R HEMITHORAX - Current Medication List Current Medications: Active Medications Acetaminophen (Tylenol -) 650 mg PO Q6H PRN PRN Reason: PAIN LEVEL 1-5 Amiodarone HCl (Cordarone -) 200 mg NGT DAILY [facility] Last Admin: 06/16/19 10:04 Dose: 200 mg Aripiprazole (Abilify) 5 mg PO DAILY [facility] Last Admin: 06/16/19 10:04 Dose: 5 mg Calcium Carbonate (Os-Davey 500mg -) 500 mg PO DAILY [facility] Last Admin: 06/16/19 10:00 Dose: 500 mg Cholecalciferol (Vitamin D3 -) 2,000 unit PO DAILY [facility] Last Admin: 06/16/19 10:05 Dose: 2,000 unit Diltiazem HCl (Cardizem -) 30 mg PO TID [facility] Last Admin: 06/16/19 06:34 Dose: 30 mg Enoxaparin Sodium (Lovenox -) 80 mg SQ BID [facility] Last Admin: 06/16/19 10:04 Dose: 80 mg Piperacillin Sod/Tazobactam (Sod 3.375 gm/ Dextrose) 50 mls @ 100 mls/hr IVPB Q8H-IV [facility]; Protocol Last Admin: 06/16/19 10:04 Dose: 100 mls/hr Norepinephrine Bitartrate 8, (000 mcg/ Sodium Chloride) 500 mls @ 18.75 mls/hr IV TITR [facility]; Protocol Last Admin: 06/15/19 17:11 Dose: 6 mcg/min, 22.5 mls/hr Vasopressin 50 units/ Sodium (Chloride) 100 mls @ 4 mls/hr IVPB ASDIR [facility]; Protocol Last Admin: 06/15/19 17:12 Dose: Not Given Propofol (Diprivan -) 1,000,000 mcg in 100 mls @ 2.49 mls/hr IVPB TITR [facility]; Protocol Last Titration: 06/16/19 04:41 Dose: 30 mcg/kg/min, 14.941 mls/hr Insulin Aspart (Novolog Vial Sliding Scale -) 1 vial SQ ACHS [facility]; Protocol Last Admin: 06/16/19 11:00 Dose: Not Given - Objective Vital Signs: Vital Signs Temperature 99.6 F 06/16/19 12:00 Pulse Rate 126 H 06/16/19 14:00 Respiratory Rate 17 06/16/19 14:00 Blood Pressure 104/79 06/16/19 14:00 O2 Sat by Pulse Oximetry (%) 94 L 06/16/19 09:00 Constitutional: Yes: No Distress Eyes: Yes: Conjunctiva Clear Cardiovascular: Yes: Regular Rate and Rhythm, S1, S2 Respiratory: Yes: Mechanically Ventilated Gastrointestinal: Yes: Normal Bowel Sounds, Soft. No: Tenderness Edema: Yes Labs: CBC, BMP 06/16/19 05:20 06/16/19 05:20 INR, PTT INR 1.20 (0.83-1.09) H 06/08/19 01:30 Assessment/Plan RESP FAILURE PLEURAL EFFUSION ? PNEUMONIA +BC LIKELY CONTAMINANT LEUKOCYTOSIS METASTATIC CA REPEAT BC, PLEURAL FLUID C/S NO GROWTH CONTINUE EMPIRIC ZOSYN
--- NOTE | 2019-06-16 15:22 | PN ---
Progress Note (short form) - Note Progress Note: PAtient seen and examined Intubated,sedated Last Vital Signs Temp Pulse Resp BP Pulse Ox 99.6 F 126 H 17 104/79 94 L 06/16/19 12:00 06/16/19 14:00 06/16/19 14:00 06/16/19 14:00 06/16/19 09:00 Cor: RSR, No murmurs, No gallops Lungs: decreased at bases Abd: Soft, Normal bowel sounds, No organomegaly Ext:No significant edema LAbs/MEds reviewed A/P 68 y/opatient with HTN, afib, CAD, DM, HLD schizophrenia, with newly diagnosed lung cancer RUL mass lesion 5cm with hilar and mediastinal adenopathy. Lt. Adrenal enlargement Poorly differentiated carcinoma. PDL1 > 90% T3 vertebral body metastases, paravertebral mass, foraminal obstruction by the mass at T2-3, displacement of the cord Left cerebellar 0.7cm and rt. occipital metastasis next gen sequencing --no actionable mutations s/p RT to T spine and RUL mass completed 04/03/19 Was seen in the office but given his poor insight into his disease process and treatment , significant memory impairment, his ECOG performance status of 3 and his active refusal , best supportive care was pursued. Discussed with all teams involved. Given this situation and my prior conversations with Julio laws tthat compassionate weaning and hospice would be in his best interest
[2019-06-16] MEDS: VASOPRESSIN 50 UNITS in SODIUM CHLORIDE 97.5 ML IVPB SCH (17:54)
[2019-06-16] MEDS: NOREPINEPHRINE BITARTRATE 8,000 MCG in SODIUM CHLORIDE 492 ML IV SCH (17:54)
[2019-06-16] MEDS: PROPOFOL 1,000,000 MCG/100 ML VIAL IVPB SCH ×2 (18:32→22:46)
[2019-06-17] MEDS ORDERED: PIPERACILLIN/TAZOBACTAM 3.375 GM VIAL IVPB ONE ×3 (01:36→18:07)
[2019-06-17] MEDS ORDERED: DEXTROSE 5%-WATER - 50 ML IVPB ONE ×3 (01:36→18:07)
[2019-06-17] MEDS: PIPERACILLIN/TAZOB 3.375 GM 3.375 GM in DEXTROSE 5%-WATER - 50 ML IVPB SCH ×3 (01:42→18:20)
[2019-06-17] MEDS ORDERED: fentaNYL CITRATE 250 MCG/5 ML VIAL ONE ×3 (02:28→18:08)
[2019-06-17] MEDS: FENTANYL INJECTION 500 MCG in DEXTROSE 5%-WATER - 90 ML IVPB SCH (02:39)
[2019-06-17] MEDS: dilTIAZem HCL 30 MG TABLET (FP) PO SCH ×3 (05:50→21:52)
[2019-06-17] MEDS: INSULIN SLIDING SCALE (NOVOLOG) 1 VIAL SQ SCH ×4 (06:41→22:13)
--- NOTE | 2019-06-17 07:09 | PN ---
Progress Note (short form) - Note Progress Note: Chief Complaint: Events noted, notes reviewed, remains sedated and intubated, hypotensive on pressors, remains in atrial fibrillation with periods of RVR remains on Amiodarone and Cardizem- hemodynamics permitting History of Present Illness: Seen and examined in the ICU. Events noted, notes reviewed, remains sedated and intubated, hypotensive on pressors, remains in atrial fibrillation with periods of RVR remains on Amiodarone and Cardizem- hemodynamics permitting Chest x-ray 06/16/2019 noted no change Current Medications: Current Medications Acetaminophen (Tylenol -) 650 mg PO Q6H PRN PRN Reason: PAIN LEVEL 1-5 Amiodarone HCl (Cordarone -) 200 mg NGT DAILY [facility] Last Admin: 06/16/19 10:04 Dose: 200 mg Aripiprazole (Abilify) 5 mg PO DAILY [facility] Last Admin: 06/16/19 10:04 Dose: 5 mg Calcium Carbonate (Os-Davey 500mg -) 500 mg PO DAILY [facility] Last Admin: 06/16/19 10:00 Dose: 500 mg Cholecalciferol (Vitamin D3 -) 2,000 unit PO DAILY [facility] Last Admin: 06/16/19 10:05 Dose: 2,000 unit Diltiazem HCl (Cardizem -) 30 mg PO TID [facility] Last Admin: 06/17/19 05:50 Dose: 30 mg Enoxaparin Sodium (Lovenox -) 80 mg SQ BID [facility] Last Admin: 06/16/19 21:40 Dose: 80 mg Piperacillin Sod/Tazobactam (Sod 3.375 gm/ Dextrose) 50 mls @ 100 mls/hr IVPB Q8H-IV [facility]; Protocol Last Admin: 06/17/19 01:42 Dose: 100 mls/hr Norepinephrine Bitartrate 8, (000 mcg/ Sodium Chloride) 500 mls @ 18.75 mls/hr IV TITR [facility]; Protocol Last Titration: 06/17/19 00:59 Dose: 4 mcg/min, 15 mls/hr Vasopressin 50 units/ Sodium (Chloride) 100 mls @ 4 mls/hr IVPB ASDIR [facility]; Protocol Last Admin: 06/16/19 17:54 Dose: Not Given Propofol (Diprivan -) 1,000,000 mcg in 100 mls @ 2.49 mls/hr IVPB TITR [facility]; Protocol Last Admin: 06/16/19 22:46 Dose: 40 mcg/kg/min, 19.922 mls/hr Fentanyl 500 mcg/ Dextrose 100 mls @ 5 mls/hr IVPB TITR [facility] Last Admin: 06/17/19 02:39 Dose: 25 mcg/hr, 5 mls/hr Insulin Aspart (Novolog Vial Sliding Scale -) 1 vial SQ ACHS [facility]; Protocol Last Admin: 06/17/19 06:41 Dose: 2 units Review of Systems Unable to obtain - Objective Vital Signs: Last Vital Signs Temp Pulse Resp BP Pulse Ox 98.0 F 125 H 14 89/77 L 94 L 06/17/19 04:00 06/17/19 06:00 06/17/19 06:00 06/17/19 06:00 06/16/19 09:00 Intake & Output 06/14/19 06/15/19 06/16/19 06/17/19 23:59 23:59 23:59 23:59 Intake Total 2658 2636 1581 1091 Output Total 1250 1350 1600 975 Balance 1408 1286 -19 116 Weight 181 lb 12.8 oz 187 lb 11.2 oz 177 lb 8 oz 180 lb 5.41 oz Neck: Supple negative JVD no bruit Cardiovascular: S1 S2 Irregularly Irregular Respiratory: Diminished Breath Sounds Bilaterally Gastrointestinal: Soft Benign Normal Bowel Sounds Ext: Edema Bilaterally Labs: CBC, BMP 06/16/19 05:20 06/16/19 05:20 Hepatic Panel Total Bilirubin 0.4 mg/dL (0.2-1) 06/15/19 06:15 AST 10 U/L (15-37) L 06/15/19 06:15 ALT 10 U/L (13-61) L 06/15/19 06:15 Alkaline Phosphatase 101 U/L (45-117) 06/15/19 06:15 Albumin 1.7 g/dl (3.4-5.0) L 06/15/19 06:15 INR, PTT INR 1.20 (0.83-1.09) H 06/08/19 01:30 Assessment/Plan: ASSESSMENT: 1. Acute hypoxic respiratory failure related to complete right lung collapse/ large pleural effusion post chest tube insertion 2. Hypotension, probable sepsis syndrome on pressors, probable post obstructive pneumonia 3. Metastatic lung carcinoma, brain metastasis 4. Persistent atrial fibrillation with RVR on Amiodarone and Cardizem therapy- hemodynamics permitting, [id number] score of 5 currntly on Lovenox 5. Coronary artery disease with evidence of demand ischemia no clinical angina pectoris 6. Diastolic left ventricular dysfunction with clinical class 0 [employer] classification left ventricular failure 7. Hypertensive cardiovascular disease, currently hypotensive as noted above 8. Diabetes mellitus 9. Hypercholesterolemia 10. History of cerebrovascular disease 11. History of schizophrenia 12. History of ataxia 13. History of osteomyelitis 14. Anemia PLAN: 1. Continue PO Amiodarone, assist with rate control 2. Continue PO Cardizem or may consider Lopressor therapy in substitution, assist with rate control/hemodyanamics permitting 3. Attempt to wean off pressors as tolerated 4. Continue A/C therapy with Lovenox unless it is absolutely contraindicated with caution and close monitoring of CBC/Hg level, maintain hemoglobin equal or greater than 8.0 5. Utilize diuretic therapy/Lasix therapy/as needed with close monitoring of renal function and electrolytes 6. Antibiotics as per the primary team 7. Overall poor prognosis and outcome considering the above noted co- morbidities, as outlined by other services plan for compassionate care/terminal wean Ubaldo Kim MD
--- NOTE | 2019-06-17 08:08 | PN ---
Progress Note, Physician Chief Complaint: EVENTS AND NOTES REVIEWED NO CHANGES OVERNIGHT PATIENT REMAINS IN ICU ON VENT SUPPORT WITH CHEST TUBE FOR LUNG COLLAPSE AND NEOPLASM WITH METASTASIS. SEDATED UNRESPONSIVE - Current Medication List Current Medications: Active Medications Acetaminophen (Tylenol -) 650 mg PO Q6H PRN PRN Reason: PAIN LEVEL 1-5 Amiodarone HCl (Cordarone -) 200 mg NGT DAILY [facility] Last Admin: 06/16/19 10:04 Dose: 200 mg Aripiprazole (Abilify) 5 mg PO DAILY [facility] Last Admin: 06/16/19 10:04 Dose: 5 mg Calcium Carbonate (Os-Davey 500mg -) 500 mg PO DAILY [facility] Last Admin: 06/16/19 10:00 Dose: 500 mg Cholecalciferol (Vitamin D3 -) 2,000 unit PO DAILY [facility] Last Admin: 06/16/19 10:05 Dose: 2,000 unit Diltiazem HCl (Cardizem -) 30 mg PO TID [facility] Last Admin: 06/17/19 05:50 Dose: 30 mg Enoxaparin Sodium (Lovenox -) 80 mg SQ BID [facility] Last Admin: 06/16/19 21:40 Dose: 80 mg Piperacillin Sod/Tazobactam (Sod 3.375 gm/ Dextrose) 50 mls @ 100 mls/hr IVPB Q8H-IV [facility]; Protocol Last Admin: 06/17/19 01:42 Dose: 100 mls/hr Norepinephrine Bitartrate 8, (000 mcg/ Sodium Chloride) 500 mls @ 18.75 mls/hr IV TITR [facility]; Protocol Last Titration: 06/17/19 00:59 Dose: 4 mcg/min, 15 mls/hr Vasopressin 50 units/ Sodium (Chloride) 100 mls @ 4 mls/hr IVPB ASDIR [facility]; Protocol Last Admin: 06/16/19 17:54 Dose: Not Given Propofol (Diprivan -) 1,000,000 mcg in 100 mls @ 2.49 mls/hr IVPB TITR [facility]; Protocol Last Admin: 06/16/19 22:46 Dose: 40 mcg/kg/min, 19.922 mls/hr Fentanyl 500 mcg/ Dextrose 100 mls @ 5 mls/hr IVPB TITR [facility] Last Admin: 06/17/19 02:39 Dose: 25 mcg/hr, 5 mls/hr Insulin Aspart (Novolog Vial Sliding Scale -) 1 vial SQ ACHS [facility]; Protocol Last Admin: 06/17/19 06:41 Dose: 2 units - Objective Vital Signs: Vital Signs Temperature 98.0 F 06/17/19 04:00 Pulse Rate 125 H 06/17/19 06:00 Respiratory Rate 14 06/17/19 06:00 Blood Pressure 89/77 L 06/17/19 06:00 O2 Sat by Pulse Oximetry (%) 94 L 06/16/19 09:00 Constitutional: Yes: Other Cardiovascular: Yes: Pulse Irregular Respiratory: Yes: Mechanically Ventilated Gastrointestinal: Yes: Soft, Abdomen, Obese Genitourinary: Yes: Padilla Present Musculoskeletal: Yes: Muscle Weakness Edema: Yes Integumentary: Yes: Pressure Ulcer, Rash, Venous Stasis Changes Wound/Incision: Yes: Dressing Dry and Intact Neurological: Yes: Unresponsive, Weakness Labs: CBC, BMP 06/16/19 05:20 06/16/19 05:20 INR, PTT INR 1.20 (0.83-1.09) H 06/08/19 01:30 Problem List - Problems (1) Collapse of right lung Code(s): J98.11 - ATELECTASIS (2) Hypotension Code(s): I95.9 - HYPOTENSION, UNSPECIFIED (3) Pleural effusion Code(s): J90 - PLEURAL EFFUSION, NOT ELSEWHERE CLASSIFIED (4) SOB (shortness of breath) Code(s): R06.02 - SHORTNESS OF BREATH (5) Abnormal laboratory results for respiratory system Code(s): R84.9 - UNSP ABNORMAL FINDING IN SPECIMENS FROM RESP ORG/THRX (6) Lung cancer Code(s): C34.90 - MALIGNANT NEOPLASM OF UNSP PART OF UNSP BRONCHUS OR LUNG (7) Mediastinal lymphadenopathy Code(s): R59.0 - LOCALIZED ENLARGED LYMPH NODES (8) Metastatic disease Code(s): C79.9 - SECONDARY MALIGNANT NEOPLASM OF UNSPECIFIED SITE (9) S/P radiation therapy Code(s): Z92.3 - PERSONAL HISTORY OF IRRADIATION (10) Afib Code(s): I48.91 - UNSPECIFIED ATRIAL FIBRILLATION Qualifiers: Atrial fibrillation type: persistent (11) Anemia Code(s): D64.9 - ANEMIA, UNSPECIFIED Qualifiers: Anemia type: unspecified type Qualified Code(s): D64.9 - Anemia, unspecified (12) Ataxia Code(s): R27.0 - ATAXIA, UNSPECIFIED (13) Diabetes Code(s): E11.9 - TYPE 2 DIABETES MELLITUS WITHOUT COMPLICATIONS (14) Diabetic foot ulcer Code(s): E11.621 - TYPE 2 DIABETES MELLITUS WITH FOOT ULCER; L97.509 - NON- PRESSURE CHRONIC ULCER OTH PRT UNSP FOOT W UNSP SEVERITY (15) Diabetic peripheral vascular disease Code(s): E11.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 (16) HTN (hypertension) Code(s): I10 - ESSENTIAL (PRIMARY) HYPERTENSION Qualifiers: Hypertension type: essential hypertension Qualified Code(s): I10 - Essential (primary) hypertension (17) Schizophrenia Code(s): F20.9 - SCHIZOPHRENIA, UNSPECIFIED Assessment/Plan I HAVE REVIEWED ALL NOTES AND PROGNOSIS WITH POSSIBLE TREATMENTS. I AGREE WITH THE ICU NOTE OF DR WESTBROOK AND DR CARVAJAL THAT MR RUSS DID NOT WANT AN EXTENSIVE AGGRESSIVE WORKUP AT THIS POINT WHERE RECOVERY IS UNLIKELY. TO CONTINUE WITH HEROIC MEASURES WILL ONLY PROLONG SUFFERING AND PAIN. LUNG CANCER WITH METS/COLLAPSED LUNG WITH ANEMIA/SEPSIS AND RESPIRATORY FAILURE REQUIRING VENT SUPPORT. I AGREE WITH A COMPASSIONATE WEAN WILL DISCUSS WITH CASE MANAGEMENT AND PALLIATIVE CARE. CONTINUE AC MODE VENT SUPPORT BP STABILIZED WITH SUPPORT WOUND CARE DRAIN CHEST TUBE PADILLA IN PLACE
--- NOTE | 2019-06-17 09:06 | PN ---
Physical Exam: SUBJECTIVE: Patient seen and examined No changes overnight. Intubated and sedated. OBJECTIVE: Vital Signs Period Temp Pulse Resp BP Sys/Stock Pulse Ox Last 24 Hr 97.9 F-99.6 F 110-132 14-23 89-125/68-92 94 GENERAL: The patient is intubated and sedated HEAD: Normal with no signs of trauma. NECK: Trachea midline. RIJ in place LUNGS: diminished breath sounds on the right, crackles on the left. Right chest tube with serous drainage into pleuravac HEART: Regular rate and rhythm, S1, S2 ABDOMEN: Soft, nontender, nondistended, normoactive bowel sounds, EXTREMITIES: distal extremities cold to touch, mottling feet b/l SKIN: skin with some distal mottled changes Laboratory Results - last 24 hr 06/15/19 06/16/19 06/16/19 06:18 18:05 22:41 POC Glucometer 170 156 201 06/17/19 06:38 POC Glucometer 206 Active Medications Generic Name Dose Route Start Last Admin Trade Name Freq PRN Reason Stop Dose Admin Acetaminophen 650 mg 06/09/19 05:59 Tylenol - PO Q6H PRN PAIN LEVEL 1-5 Amiodarone HCl 200 mg 06/12/19 10:00 06/16/19 10:04 Cordarone - NGT 200 mg DAILY [facility] Administration Aripiprazole 5 mg 06/09/19 10:00 06/16/19 10:04 Abilify PO 5 mg DAILY [facility] Administration Calcium Carbonate 500 mg 06/09/19 10:00 06/16/19 10:00 Os-Davey 500mg - PO 500 mg DAILY [facility] Administration Cholecalciferol 2,000 unit 06/09/19 10:00 06/16/19 10:05 Vitamin D3 - PO 2,000 unit DAILY [facility] Administration Diltiazem HCl 30 mg 06/08/19 14:00 06/17/19 05:50 Cardizem - PO 30 mg TID [facility] Administration Enoxaparin Sodium 80 mg 06/09/19 10:00 06/16/19 21:40 Lovenox - SQ 80 mg BID [facility] Administration Piperacillin Sod/Tazobactam 50 mls @ 100 mls/hr 06/09/19 15:00 06/17/19 01:42 Sod 3.375 gm/ Dextrose IVPB 100 mls/hr Q8H-IV [facility] Administration Protocol Norepinephrine Bitartrate 8, 500 mls @ 18.75 mls/hr 06/09/19 16:15 06/17/19 00:59 000 mcg/ Sodium Chloride IV 4 mcg/min TITR [facility] 15 mls/hr Titration Protocol 5 MCG/MIN Vasopressin 50 units/ Sodium 100 mls @ 4 mls/hr 06/09/19 16:45 06/16/19 17:54 Chloride IVPB Not Given ASDIR [facility] Protocol 2 UNITS/HR Propofol 1,000,000 mcg in 100 mls @ 2.49 mls/hr 06/09/19 22:00 06/16/19 22:46 Diprivan - IVPB 40 mcg/kg/min TITR [facility] 19.922 mls/hr Administration Protocol 5 MCG/KG/MIN Fentanyl 500 mcg/ Dextrose 100 mls @ 5 mls/hr 06/17/19 02:30 06/17/19 02:39 IVPB 25 mcg/hr TITR [facility] 5 mls/hr Administration 25 MCG/HR Insulin Aspart 1 vial 06/09/19 07:00 06/17/19 06:41 Novolog Vial Sliding Scale - SQ 2 units ACHS [facility] Administration Protocol ASSESSMENT/PLAN: 68 y/o M from [facility] with hx of HTN, HLD, A-Fib on AC, DM, CAD, Schizo, & recently diagnosed non small cell lung CA w/ brain and T-spine mets (Of note, tumor exhibits PDL-1 expression) who is admitted to ICU for hypercapnic respiratory failure. Neuro: - sedated, intubated on propofol and fent CV: - MAPs 60-80s -> curently on levo, wean as tolerated - afib HR 120s-130s; now on Amio 200mg QD in addition to Dilt 30mg TID - continue to monitor closely and avoid hypotension, as chest tube continues to drain Respiratory: -right sided effusion likely malignant with compressive atelectasis vs compressive malignancy - s/p chest tube; with continual drainage - vent rate 14, TV 450, PEEP 5, FIO2 40% GI: - continue tube feeds - aspiration precautions Renal: - urinary retention; trevino - Cr stable ID: - BCX(06/08/19): coag-neg staph; Gram positive bacili - BCX(06/09/19): NGTD - ID(Dr Littlejohn) consulted --continue zosyn DVT ppx: Lovenox 80 bid FEN/LTD: - replete lytes prn - TF Glucerna - RIJ, right lateral chest tube, ETT, PIV x2 Dispo: ICU team will continue to follow; NH and assisted living contacted and patient with no known relatives or POA; patient submitted to ethics committee for review; pending discussion amongst attendings and palliative team for terminal extubation given patient's wishes prior to mental status deterioration. Visit type - Emergency Visit Emergency Visit: No - New Patient This patient is new to me today: No - Critical Care Critical Care patient: Yes Total Critical Care Time (in minutes): 35 Critical Care Statement: The care of this patient involved high complexity decision making to prevent further life threatening deterioration of the patient's condition and/or to evaluate & treat vital organ system(s) failure or risk of failure. ATTENDING PHYSICIAN STATEMENT I saw and evaluated the patient. I reviewed the resident's note and discussed the case with the resident. I agree with the resident's findings and plan as documented. SUBJECTIVE: OBJECTIVE: ASSESSMENT AND PLAN:
[2019-06-17] MEDS ORDERED: PT OWN MED DRAWER 7, Y5N ONE (10:11)
[2019-06-17] MEDS: CALCIUM (OYSTER SHELL) 500 MG TABLET (FP) PO SCH (10:16)
[2019-06-17] MEDS: CHOLECALCIFEROL (VIT D3) 1,000 UNIT (25 MCG) TABLET PO SCH (10:16)
[2019-06-17] MEDS: AMIODARONE HCL 200 MG TABLET NGT SCH (10:16)
[2019-06-17] MEDS: ENOXAPARIN NA (PORCINE) 80 MG/0.8 ML DISP.SYRIN SQ SCH ×2 (10:16→21:52)
[2019-06-17] MEDS: ARIPiprazole 5 MG TABLET PO SCH (10:17)
[2019-06-17 11:14] LABS: HEMATOCRIT 34.4 % (35.4-49); MCH 26.2 pg (25.7-33.7); MCHC 31.9 g/dl (32.0-35.9); MEAN CELL VOLUME 82.1 fl (80-96); MEAN PLT VOLUME 8.9 fl (7.5-11.1); PLATELET COUNT 256 K/MM3 (134-434); RBC 4.19 M/mm3 (4.00-5.60); WHITE BLOOD COUNT 16.2 K/mm3 (4.0-10.0)
[2019-06-17 11:39] LABS: BLOOD UREA NITROGEN 16.6 mg/dL (7-18); CREATININE 0.5 mg/dL (0.55-1.3); MAGNESIUM 2.3 mg/dL (1.8-2.4); POTASSIUM 4.3 mmol/L (3.5-5.1)
--- NOTE | 2019-06-17 12:00 | PN ---
Teaching Attending Note Name of Resident: Sina Cavazos ATTENDING PHYSICIAN STATEMENT I saw and evaluated the patient. I reviewed the resident's note and discussed the case with the resident. I agree with the resident's findings and plan as documented. SUBJECTIVE: Pt seen and examined in the ICU. Remains intubated, sedated on levophed gtt. OBJECTIVE: Vital Signs Period Temp Pulse Resp BP Sys/Stock Pulse Ox Last 24 Hr 97.9 F-99.6 F 110-132 14-23 89-125/68-88 Intake & Output 06/14/19 06/15/19 06/16/19 06/17/19 23:59 23:59 23:59 23:59 Intake Total 2658 2636 1581 1091 Output Total 1250 1350 1600 975 Balance 1408 1286 -19 116 Weight 82.463 kg 85.139 kg 80.513 kg 81.8 kg Gen: intubated, sedated Heart: RRR Lung: absent breath sounds right Abd: soft, nontender Ext: + edema CBC, BMP 06/17/19 10:00 06/17/19 10:00 Active Medications Acetaminophen (Tylenol -) 650 mg PO Q6H PRN PRN Reason: PAIN LEVEL 1-5 Amiodarone HCl (Cordarone -) 200 mg NGT DAILY [facility] Last Admin: 06/17/19 10:16 Dose: 200 mg Aripiprazole (Abilify) 5 mg PO DAILY [facility] Last Admin: 06/17/19 10:17 Dose: 5 mg Calcium Carbonate (Os-Davey 500mg -) 500 mg PO DAILY [facility] Last Admin: 06/17/19 10:16 Dose: 500 mg Cholecalciferol (Vitamin D3 -) 2,000 unit PO DAILY [facility] Last Admin: 06/17/19 10:16 Dose: 2,000 unit Diltiazem HCl (Cardizem -) 30 mg PO TID [facility] Last Admin: 06/17/19 05:50 Dose: 30 mg Enoxaparin Sodium (Lovenox -) 80 mg SQ BID [facility] Last Admin: 06/17/19 10:16 Dose: 80 mg Piperacillin Sod/Tazobactam (Sod 3.375 gm/ Dextrose) 50 mls @ 100 mls/hr IVPB Q8H-IV [facility]; Protocol Last Admin: 06/17/19 10:16 Dose: 100 mls/hr Norepinephrine Bitartrate 8, (000 mcg/ Sodium Chloride) 500 mls @ 18.75 mls/hr IV TITR [facility]; Protocol Last Titration: 06/17/19 00:59 Dose: 4 mcg/min, 15 mls/hr Vasopressin 50 units/ Sodium (Chloride) 100 mls @ 4 mls/hr IVPB [facility]; Protocol Last Admin: 06/16/19 17:54 Dose: Not Given Propofol (Diprivan -) 1,000,000 mcg in 100 mls @ 2.49 mls/hr IVPB TITR [facility]; Protocol Last Admin: 06/16/19 22:46 Dose: 40 mcg/kg/min, 19.922 mls/hr Fentanyl 500 mcg/ Dextrose 100 mls @ 5 mls/hr IVPB TITR [facility] Last Admin: 06/17/19 02:39 Dose: 25 mcg/hr, 5 mls/hr Insulin Aspart (Novolog Vial Sliding Scale -) 1 vial SQ ACHS [facility]; Protocol Last Admin: 06/17/19 06:41 Dose: 2 units ASSESSMENT AND PLAN: Acute Hypoxic Respiratory Failure Metastatic Lung Cancer with Right Main Stem Obstruction and Brain Mets Pleural Effusion s/p chest tube placement Pneumonia likely Post Obstructive Septic Shock resolving Atrial Fibrillation with RVR CAD LV Diastolic Dysfunction HTN DM Hypercholesterolemia Schizophrenia Anemia - continue antibiotics - titrate pressors to maintain MAP >65 - rate control - continue anticoagulation - agree that pt with terminal illness with progressive disease and tumor burden - continuing aggressive treatments would only promote suffering without improving quality of life - recommend comfort measures due to medical futility critical care time spent in reviewing chart, evaluating patient and formulating plan 35 min
[2019-06-17 16:18] VITALS: BMI 20.7
--- NOTE | 2019-06-17 16:39 | PN ---
Progress Note (short form) - Note Progress Note: Patient seen and examined Intubated sedated Non responsive Last Vital Signs Temp Pulse Resp BP Pulse Ox 98.6 F 111 H 14 84/65 L 94 L 06/17/19 14:00 06/17/19 14:00 06/17/19 14:00 06/17/19 14:00 06/16/19 09:00 Intubated Sedated Chest tube Ortega catheter Decreased breath sounds Atrial fib soft abdomen CBC, BMP 06/17/19 10:00 06/17/19 10:00 Current Medications Generic Name Dose Route Start Last Admin Trade Name Freq PRN Reason Stop Dose Admin Acetaminophen 650 mg 06/09/19 05:59 Tylenol - PO Q6H PRN PAIN LEVEL 1-5 Amiodarone HCl 200 mg 06/12/19 10:00 06/17/19 10:16 Cordarone - NGT 200 mg DAILY [facility] Administration Aripiprazole 5 mg 06/09/19 10:00 06/17/19 10:17 Abilify PO 5 mg DAILY [facility] Administration Calcium Carbonate 500 mg 06/09/19 10:00 06/17/19 10:16 Os-Davey 500mg - PO 500 mg DAILY [facility] Administration Cholecalciferol 2,000 unit 06/09/19 10:00 06/17/19 10:16 Vitamin D3 - PO 2,000 unit DAILY [facility] Administration Diltiazem HCl 30 mg 06/08/19 14:00 06/17/19 14:41 Cardizem - PO Not Given TID [facility] Enoxaparin Sodium 80 mg 06/09/19 10:00 06/17/19 10:16 Lovenox - SQ 80 mg BID [facility] Administration Piperacillin Sod/Tazobactam 50 mls @ 100 mls/hr 06/09/19 15:00 06/17/19 10:16 Sod 3.375 gm/ Dextrose IVPB 100 mls/hr Q8H-IV [facility] Administration Protocol Norepinephrine Bitartrate 8, 500 mls @ 18.75 mls/hr 06/09/19 16:15 06/17/19 00:59 000 mcg/ Sodium Chloride IV 4 mcg/min TITR [facility] 15 mls/hr Titration Protocol 5 MCG/MIN Vasopressin 50 units/ Sodium 100 mls @ 4 mls/hr 06/09/19 16:45 06/16/19 17:54 Chloride IVPB Not Given ASDIR [facility] Protocol 2 UNITS/HR Propofol 1,000,000 mcg in 100 mls @ 2.49 mls/hr 06/09/19 22:00 06/16/19 22:46 Diprivan - IVPB 40 mcg/kg/min TITR [facility] 19.922 mls/hr Administration Protocol 5 MCG/KG/MIN Fentanyl 500 mcg/ Dextrose 100 mls @ 5 mls/hr 06/17/19 02:30 06/17/19 02:39 IVPB 25 mcg/hr TITR [facility] 5 mls/hr Administration 25 MCG/HR Insulin Aspart 1 vial 06/09/19 07:00 06/17/19 12:34 Novolog Vial Sliding Scale - SQ Not Given ACHS [facility] Protocol Impression Metastatic lung ca See note from Dr. Avalos Patient not a suitable candidate for oncologic intervention.
[2019-06-17] MEDS: NOREPINEPHRINE BITARTRATE 8,000 MCG in SODIUM CHLORIDE 492 ML IV SCH (18:19)
[2019-06-17] MEDS: VASOPRESSIN 50 UNITS in SODIUM CHLORIDE 97.5 ML IVPB SCH (18:20)
--- NOTE | 2019-06-17 18:57 | PN ---
Progress Note, Physician History of Present Illness: MORE AWAKE ON VENTILATOR NO ACUTE DISTRESS AFEBRILE WBC REMAINS SL ELEVATED CHEST TUBE IN PLACE BC, PLEURAL FLUID C/S NO GROWTH CXR OPACIFIED R HEMITHORAX - Current Medication List Current Medications: Active Medications Acetaminophen (Tylenol -) 650 mg PO Q6H PRN PRN Reason: PAIN LEVEL 1-5 Amiodarone HCl (Cordarone -) 200 mg NGT DAILY [facility] Last Admin: 06/17/19 10:16 Dose: 200 mg Aripiprazole (Abilify) 5 mg PO DAILY [facility] Last Admin: 06/17/19 10:17 Dose: 5 mg Calcium Carbonate (Os-Davey 500mg -) 500 mg PO DAILY [facility] Last Admin: 06/17/19 10:16 Dose: 500 mg Cholecalciferol (Vitamin D3 -) 2,000 unit PO DAILY [facility] Last Admin: 06/17/19 10:16 Dose: 2,000 unit Diltiazem HCl (Cardizem -) 30 mg PO TID [facility] Last Admin: 06/17/19 14:41 Dose: Not Given Enoxaparin Sodium (Lovenox -) 80 mg SQ BID [facility] Last Admin: 06/17/19 10:16 Dose: 80 mg Piperacillin Sod/Tazobactam (Sod 3.375 gm/ Dextrose) 50 mls @ 100 mls/hr IVPB Q8H-IV [facility]; Protocol Last Admin: 06/17/19 18:20 Dose: 100 mls/hr Norepinephrine Bitartrate 8, (000 mcg/ Sodium Chloride) 500 mls @ 18.75 mls/hr IV TITR [facility]; Protocol Last Admin: 06/17/19 18:19 Dose: 4 mcg/min, 15 mls/hr Vasopressin 50 units/ Sodium (Chloride) 100 mls @ 4 mls/hr IVPB ASDIR [facility]; Protocol Last Admin: 06/17/19 18:20 Dose: Not Given Propofol (Diprivan -) 1,000,000 mcg in 100 mls @ 2.49 mls/hr IVPB TITR [facility]; Protocol Last Admin: 06/16/19 22:46 Dose: 40 mcg/kg/min, 19.922 mls/hr Fentanyl 500 mcg/ Dextrose 100 mls @ 5 mls/hr IVPB TITR [facility] Last Admin: 06/17/19 02:39 Dose: 25 mcg/hr, 5 mls/hr Insulin Aspart (Novolog Vial Sliding Scale -) 1 vial SQ [facility]; Protocol Last Admin: 06/17/19 18:20 Dose: Not Given - Objective Vital Signs: Vital Signs Temperature 99 F 06/17/19 18:00 Pulse Rate 11 L 06/17/19 18:19 Respiratory Rate 14 06/17/19 18:00 Blood Pressure 89/67 L 06/17/19 18:19 O2 Sat by Pulse Oximetry (%) 94 L 06/16/19 09:00 Constitutional: Yes: No Distress Eyes: Yes: Conjunctiva Clear Cardiovascular: Yes: Regular Rate and Rhythm, S1, S2 Respiratory: Yes: Mechanically Ventilated Gastrointestinal: Yes: Normal Bowel Sounds, Soft Edema: Yes Labs: CBC, BMP 06/17/19 10:00 06/17/19 10:00 INR, PTT INR 1.20 (0.83-1.09) H 06/08/19 01:30 Assessment/Plan RESP FAILURE PLEURAL EFFUSION ? PNEUMONIA +BC LIKELY CONTAMINANT LEUKOCYTOSIS METASTATIC CA REPEAT BC, PLEURAL FLUID C/S NO GROWTH CONTINUE EMPIRIC ZOSYN
[2019-06-18] MEDS: PIPERACILLIN/TAZOB 3.375 GM 3.375 GM in DEXTROSE 5%-WATER - 50 ML IVPB SCH ×3 (03:25→17:43)
[2019-06-18] MEDS ORDERED: DEXTROSE 5%-WATER - 50 ML IVPB ONE ×4 (03:32→23:31)
[2019-06-18] MEDS ORDERED: PIPERACILLIN/TAZOBACTAM 3.375 GM VIAL IVPB ONE ×4 (03:32→23:31)
[2019-06-18] MEDS: PROPOFOL 1,000,000 MCG/100 ML VIAL IVPB SCH ×4 (03:40→20:09)
[2019-06-18] MEDS: FENTANYL INJECTION 500 MCG in DEXTROSE 5%-WATER - 90 ML IVPB SCH ×2 (03:41→20:08)
[2019-06-18] MEDS: dilTIAZem HCL 30 MG TABLET (FP) PO SCH ×3 (06:37→17:43)
[2019-06-18] MEDS: INSULIN SLIDING SCALE (NOVOLOG) 1 VIAL SQ SCH ×3 (07:04→18:05)
--- NOTE | 2019-06-18 09:22 | PN ---
Progress Note, Physician Chief Complaint: EVENTS AND NOTES REVIEWED NO CHANGES OVERNIGHT PATIENT REMAINS IN ICU ON VENT SUPPORT WITH CHEST TUBE FOR LUNG COLLAPSE AND NEOPLASM WITH METASTASIS. SEDATED UNRESPONSIVE - Current Medication List Current Medications: Active Medications Acetaminophen (Tylenol -) 650 mg PO Q6H PRN PRN Reason: PAIN LEVEL 1-5 Amiodarone HCl (Cordarone -) 200 mg NGT DAILY [facility] Last Admin: 06/17/19 10:16 Dose: 200 mg Aripiprazole (Abilify) 5 mg PO DAILY [facility] Last Admin: 06/17/19 10:17 Dose: 5 mg Calcium Carbonate (Os-Davey 500mg -) 500 mg PO DAILY [facility] Last Admin: 06/17/19 10:16 Dose: 500 mg Cholecalciferol (Vitamin D3 -) 2,000 unit PO DAILY [facility] Last Admin: 06/17/19 10:16 Dose: 2,000 unit Diltiazem HCl (Cardizem -) 30 mg PO TID [facility] Last Admin: 06/18/19 06:37 Dose: 30 mg Enoxaparin Sodium (Lovenox -) 80 mg SQ BID [facility] Last Admin: 06/17/19 21:52 Dose: 80 mg Piperacillin Sod/Tazobactam (Sod 3.375 gm/ Dextrose) 50 mls @ 100 mls/hr IVPB Q8H-IV [facility]; Protocol Last Admin: 06/18/19 03:25 Dose: 100 mls/hr Norepinephrine Bitartrate 8, (000 mcg/ Sodium Chloride) 500 mls @ 18.75 mls/hr IV TITR [facility]; Protocol Last Admin: 06/17/19 18:19 Dose: 4 mcg/min, 15 mls/hr Vasopressin 50 units/ Sodium (Chloride) 100 mls @ 4 mls/hr IVPB ASDIR [facility]; Protocol Last Admin: 06/17/19 18:20 Dose: Not Given Propofol (Diprivan -) 1,000,000 mcg in 100 mls @ 2.49 mls/hr IVPB TITR [facility]; Protocol Last Admin: 06/18/19 03:40 Dose: Not Given Fentanyl 500 mcg/ Dextrose 100 mls @ 5 mls/hr IVPB TITR [facility] Last Admin: 06/18/19 03:41 Dose: 25 mcg/hr, 5 mls/hr Insulin Aspart (Novolog Vial Sliding Scale -) 1 vial SQ ACHS [facility]; Protocol Last Admin: 06/18/19 07:04 Dose: Not Given - Objective Vital Signs: Vital Signs Temperature 98.3 F 06/18/19 06:00 Pulse Rate 116 H 06/18/19 06:00 Respiratory Rate 15 06/18/19 07:32 Blood Pressure 91/67 06/18/19 06:00 O2 Sat by Pulse Oximetry (%) 99 06/18/19 03:29 Constitutional: Yes: Other Cardiovascular: Yes: Pulse Irregular Respiratory: Yes: Mechanically Ventilated Gastrointestinal: Yes: Soft Genitourinary: Yes: Padilla Present, Incontinence Musculoskeletal: Yes: Muscle Weakness Integumentary: Yes: Rash, Venous Stasis Changes Wound/Incision: Yes: Dressing Dry and Intact Neurological: Yes: Pre-Existing Deficit, Weakness Labs: CBC, BMP 06/17/19 10:00 06/17/19 10:00 INR, PTT INR 1.20 (0.83-1.09) H 06/08/19 01:30 Problem List - Problems (1) Collapse of right lung Code(s): J98.11 - ATELECTASIS (2) Hypotension Code(s): I95.9 - HYPOTENSION, UNSPECIFIED (3) Pleural effusion Code(s): J90 - PLEURAL EFFUSION, NOT ELSEWHERE CLASSIFIED (4) SOB (shortness of breath) Code(s): R06.02 - SHORTNESS OF BREATH (5) Abnormal laboratory results for respiratory system Code(s): R84.9 - UNSP ABNORMAL FINDING IN SPECIMENS FROM RESP ORG/THRX (6) Lung cancer Code(s): C34.90 - MALIGNANT NEOPLASM OF UNSP PART OF UNSP BRONCHUS OR LUNG (7) Mediastinal lymphadenopathy Code(s): R59.0 - LOCALIZED ENLARGED LYMPH NODES (8) Metastatic disease Code(s): C79.9 - SECONDARY MALIGNANT NEOPLASM OF UNSPECIFIED SITE (9) S/P radiation therapy Code(s): Z92.3 - PERSONAL HISTORY OF IRRADIATION (10) Afib Code(s): I48.91 - UNSPECIFIED ATRIAL FIBRILLATION Qualifiers: Atrial fibrillation type: persistent (11) Anemia Code(s): D64.9 - ANEMIA, UNSPECIFIED Qualifiers: Anemia type: unspecified type Qualified Code(s): D64.9 - Anemia, unspecified (12) Ataxia Code(s): R27.0 - ATAXIA, UNSPECIFIED (13) Diabetes Code(s): E11.9 - TYPE 2 DIABETES MELLITUS WITHOUT COMPLICATIONS (14) Diabetic foot ulcer Code(s): E11.621 - TYPE 2 DIABETES MELLITUS WITH FOOT ULCER; L97.509 - NON- PRESSURE CHRONIC ULCER OTH PRT UNSP FOOT W UNSP SEVERITY (15) Diabetic peripheral vascular disease Code(s): E11.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 (16) HTN (hypertension) Code(s): I10 - ESSENTIAL (PRIMARY) HYPERTENSION Qualifiers: Hypertension type: essential hypertension Qualified Code(s): I10 - Essential (primary) hypertension (17) Schizophrenia Code(s): F20.9 - SCHIZOPHRENIA, UNSPECIFIED Assessment/Plan I HAVE REVIEWED ALL NOTES AND PROGNOSIS WITH POSSIBLE TREATMENTS. I AGREE WITH THE ICU NOTE OF DR WESTBROOK AND DR CARVAJAL THAT MR RUSS DID NOT WANT AN EXTENSIVE AGGRESSIVE WORKUP AT THIS POINT WHERE RECOVERY IS UNLIKELY. TO CONTINUE WITH HEROIC MEASURES WILL ONLY PROLONG SUFFERING AND PAIN. LUNG CANCER WITH METS/COLLAPSED LUNG WITH ANEMIA/SEPSIS AND RESPIRATORY FAILURE REQUIRING VENT SUPPORT. I AGREE WITH A COMPASSIONATE WEAN WILL DISCUSS WITH CASE MANAGEMENT AND PALLIATIVE CARE. CONTINUE AC MODE VENT SUPPORT BP STABILIZED WITH SUPPORT WOUND CARE DRAIN CHEST TUBE PADILLA IN PLACE ETHICAL REVIEW WITH DR CHAVEZ
[2019-06-18] MEDS: ENOXAPARIN NA (PORCINE) 80 MG/0.8 ML DISP.SYRIN SQ SCH ×2 (09:56→21:43)
[2019-06-18] MEDS: CHOLECALCIFEROL (VIT D3) 1,000 UNIT (25 MCG) TABLET PO SCH (09:57)
[2019-06-18] MEDS: ARIPiprazole 5 MG TABLET PO SCH (09:58)
[2019-06-18] MEDS: AMIODARONE HCL 200 MG TABLET NGT SCH (09:59)
[2019-06-18] MEDS: CALCIUM (OYSTER SHELL) 500 MG TABLET (FP) PO SCH (09:59)
--- NOTE | 2019-06-18 10:58 | PN ---
Progress Note, Physician History of Present Illness: SEDATED ON VENTILATOR NO ACUTE DISTRESS AFEBRILE WBC REMAINS SL ELEVATED CHEST TUBE IN PLACE BC, PLEURAL FLUID C/S NO GROWTH CXR OPACIFIED R HEMITHORAX - Current Medication List Current Medications: Active Medications Acetaminophen (Tylenol -) 650 mg PO Q6H PRN PRN Reason: PAIN LEVEL 1-5 Amiodarone HCl (Cordarone -) 200 mg NGT DAILY [facility] Last Admin: 06/18/19 09:59 Dose: 200 mg Aripiprazole (Abilify) 5 mg PO DAILY [facility] Last Admin: 06/18/19 09:58 Dose: 5 mg Calcium Carbonate (Os-Davey 500mg -) 500 mg PO DAILY [facility] Last Admin: 06/18/19 09:59 Dose: 500 mg Cholecalciferol (Vitamin D3 -) 2,000 unit PO DAILY [facility] Last Admin: 06/18/19 09:57 Dose: 2,000 unit Diltiazem HCl (Cardizem -) 30 mg PO TID [facility] Last Admin: 06/18/19 06:37 Dose: 30 mg Enoxaparin Sodium (Lovenox -) 80 mg SQ BID [facility] Last Admin: 06/18/19 09:56 Dose: 80 mg Piperacillin Sod/Tazobactam (Sod 3.375 gm/ Dextrose) 50 mls @ 100 mls/hr IVPB Q8H-IV [facility]; Protocol Last Admin: 06/18/19 10:00 Dose: 100 mls/hr Norepinephrine Bitartrate 8, (000 mcg/ Sodium Chloride) 500 mls @ 18.75 mls/hr IV TITR [facility]; Protocol Last Admin: 06/17/19 18:19 Dose: 4 mcg/min, 15 mls/hr Vasopressin 50 units/ Sodium (Chloride) 100 mls @ 4 mls/hr IVPB [facility]; Protocol Last Admin: 06/17/19 18:20 Dose: Not Given Propofol (Diprivan -) 1,000,000 mcg in 100 mls @ 2.49 mls/hr IVPB TITR [facility]; Protocol Last Admin: 06/18/19 03:40 Dose: Not Given Fentanyl 500 mcg/ Dextrose 100 mls @ 5 mls/hr IVPB TITR [facility] Last Admin: 06/18/19 03:41 Dose: 25 mcg/hr, 5 mls/hr Insulin Aspart (Novolog Vial Sliding Scale -) 1 vial SQ ACHS [facility]; Protocol Last Admin: 06/18/19 07:04 Dose: Not Given - Objective Vital Signs: Vital Signs Temperature 98.3 F 06/18/19 06:00 Pulse Rate 116 H 06/18/19 06:00 Respiratory Rate 15 06/18/19 07:32 Blood Pressure 91/67 06/18/19 06:00 O2 Sat by Pulse Oximetry (%) 99 06/18/19 03:29 Constitutional: Yes: No Distress Eyes: Yes: Conjunctiva Clear Cardiovascular: Yes: Regular Rate and Rhythm, Tachycardia, S1, S2 Respiratory: Yes: Mechanically Ventilated Gastrointestinal: Yes: Normal Bowel Sounds, Soft. No: Tenderness Edema: Yes Labs: CBC, BMP 06/17/19 10:00 06/17/19 10:00 INR, PTT INR 1.20 (0.83-1.09) H 06/08/19 01:30 Assessment/Plan RESP FAILURE PLEURAL EFFUSION ? PNEUMONIA +BC LIKELY CONTAMINANT LEUKOCYTOSIS METASTATIC CA REPEAT BC, PLEURAL FLUID C/S NO GROWTH CONTINUE EMPIRIC ZOSYN
--- NOTE | 2019-06-18 11:53 | PN ---
Teaching Attending Note Name of Resident: Sina Cavazos ATTENDING PHYSICIAN STATEMENT I saw and evaluated the patient. I reviewed the resident's note and discussed the case with the resident. I agree with the resident's findings and plan as documented. SUBJECTIVE: Pt seen and examined in the ICU. Remains intubated, sedated on levophed gtt. Heart rates rapid this AM. OBJECTIVE: Vital Signs Period Temp Pulse Resp BP Sys/Stock Pulse Ox Last 24 Hr 98.2 F-99 F 11-128 14-16 83-92/65-75 99-99 Intake & Output 06/15/19 06/16/19 06/17/19 06/18/19 23:59 23:59 23:59 23:59 Intake Total 2636 1581 1574 1494.9 Output Total 1350 1600 2925 930 Balance 1286 -19 -1351 564.9 Weight 85.139 kg 80.513 kg 81.8 kg 81.284 kg Gen: intubated, sedated Heart: tachycardic Lung: absent breath sounds right Abd: soft, nontender Ext: + edema CBC, BMP 06/17/19 10:00 06/17/19 10:00 Active Medications Acetaminophen (Tylenol -) 650 mg PO Q6H PRN PRN Reason: PAIN LEVEL 1-5 Amiodarone HCl (Cordarone -) 200 mg NGT DAILY [facility] Last Admin: 06/18/19 09:59 Dose: 200 mg Aripiprazole (Abilify) 5 mg PO DAILY [facility] Last Admin: 06/18/19 09:58 Dose: 5 mg Calcium Carbonate (Os-Davey 500mg -) 500 mg PO DAILY [facility] Last Admin: 06/18/19 09:59 Dose: 500 mg Cholecalciferol (Vitamin D3 -) 2,000 unit PO DAILY [facility] Last Admin: 06/18/19 09:57 Dose: 2,000 unit Diltiazem HCl (Cardizem -) 30 mg PO Q6HPO [facility] Enoxaparin Sodium (Lovenox -) 80 mg SQ BID [facility] Last Admin: 06/18/19 09:56 Dose: 80 mg Piperacillin Sod/Tazobactam (Sod 3.375 gm/ Dextrose) 50 mls @ 100 mls/hr IVPB Q8H-IV [facility]; Protocol Last Admin: 06/18/19 10:00 Dose: 100 mls/hr Norepinephrine Bitartrate 8, (000 mcg/ Sodium Chloride) 500 mls @ 18.75 mls/hr IV TITR [facility]; Protocol Last Admin: 06/17/19 18:19 Dose: 4 mcg/min, 15 mls/hr Vasopressin 50 units/ Sodium (Chloride) 100 mls @ 4 mls/hr IVPB [facility]; Protocol Last Admin: 06/17/19 18:20 Dose: Not Given Propofol (Diprivan -) 1,000,000 mcg in 100 mls @ 2.49 mls/hr IVPB TITR [facility]; Protocol Last Admin: 06/18/19 03:40 Dose: Not Given Fentanyl 500 mcg/ Dextrose 100 mls @ 5 mls/hr IVPB TITR [facility] Last Admin: 06/18/19 03:41 Dose: 25 mcg/hr, 5 mls/hr Insulin Aspart (Novolog Vial Sliding Scale -) 1 vial SQ ACHS [facility]; Protocol Last Admin: 06/18/19 07:04 Dose: Not Given ASSESSMENT AND PLAN: Acute Hypoxic Respiratory Failure Metastatic Lung Cancer with Right Main Stem Obstruction and Brain Mets Pleural Effusion s/p chest tube placement Pneumonia likely Post Obstructive Septic Shock resolving Atrial Fibrillation with RVR CAD LV Diastolic Dysfunction HTN DM Hypercholesterolemia Schizophrenia Anemia - continue antibiotics - titrate pressors to maintain MAP >65 - rate control - continue anticoagulation - pt with terminal illness with progressive disease and tumor burden - continuing aggressive treatments would only promote suffering without improving quality of life - recommend comfort measures due to medical futility critical care time spent in reviewing chart, evaluating patient and formulating plan 35 min
--- NOTE | 2019-06-18 13:59 | PN ---
Progress Note, Physician History of Present Illness: Sedated and intubated on Levophed gtt, rapid atrial fibrillation despite oral Amiodarone earlier today. - Current Medication List Current Medications: Active Medications Acetaminophen (Tylenol -) 650 mg PO Q6H PRN PRN Reason: PAIN LEVEL 1-5 Amiodarone HCl (Cordarone -) 200 mg NGT DAILY [facility] Last Admin: 06/18/19 09:59 Dose: 200 mg Aripiprazole (Abilify) 5 mg PO DAILY [facility] Last Admin: 06/18/19 09:58 Dose: 5 mg Calcium Carbonate (Os-Davey 500mg -) 500 mg PO DAILY [facility] Last Admin: 06/18/19 09:59 Dose: 500 mg Cholecalciferol (Vitamin D3 -) 2,000 unit PO DAILY [facility] Last Admin: 06/18/19 09:57 Dose: 2,000 unit Diltiazem HCl (Cardizem -) 30 mg PO Q6HPO [facility] Last Admin: 06/18/19 12:10 Dose: 30 mg Enoxaparin Sodium (Lovenox -) 80 mg SQ BID [facility] Last Admin: 06/18/19 09:56 Dose: 80 mg Piperacillin Sod/Tazobactam (Sod 3.375 gm/ Dextrose) 50 mls @ 100 mls/hr IVPB Q8H-IV [facility]; Protocol Last Admin: 06/18/19 10:00 Dose: 100 mls/hr Norepinephrine Bitartrate 8, (000 mcg/ Sodium Chloride) 500 mls @ 18.75 mls/hr IV TITR [facility]; Protocol Last Admin: 06/17/19 18:19 Dose: 4 mcg/min, 15 mls/hr Vasopressin 50 units/ Sodium (Chloride) 100 mls @ 4 mls/hr IVPB [facility]; Protocol Last Admin: 06/17/19 18:20 Dose: Not Given Propofol (Diprivan -) 1,000,000 mcg in 100 mls @ 2.49 mls/hr IVPB TITR [facility]; Protocol Last Admin: 06/18/19 12:10 Dose: 50 mcg/kg/min, 24.902 mls/hr Fentanyl 500 mcg/ Dextrose 100 mls @ 5 mls/hr IVPB TITR [facility] Last Admin: 06/18/19 03:41 Dose: 25 mcg/hr, 5 mls/hr Insulin Aspart (Novolog Vial Sliding Scale -) 1 vial SQ ACHS [facility]; Protocol Last Admin: 06/18/19 12:00 Dose: Not Given - Objective Vital Signs: Vital Signs Temperature 98.3 F 06/18/19 06:00 Pulse Rate 116 H 06/18/19 06:00 Respiratory Rate 14 06/18/19 09:15 Blood Pressure 91/67 06/18/19 06:00 O2 Sat by Pulse Oximetry (%) 99 06/18/19 03:29 Constitutional: Yes: No Distress, Calm, Thin Neck: Yes: Supple Cardiovascular: Yes: Tachycardia, Pulse Irregular Respiratory: Yes: Intubated, Mechanically Ventilated, Rhonchi Gastrointestinal: Yes: Soft, Hypoactive Bowel Sounds Extremities: Yes: Cyanosis Edema: No Labs: CBC, BMP 06/17/19 10:00 06/17/19 10:00 INR, PTT INR 1.20 (0.83-1.09) H 06/08/19 01:30 - ....Imaging EKG: Report Reviewed (Tele: Afib @ 110) Assessment/Plan - Problems (1) Pleural effusion Code(s): J90 - PLEURAL EFFUSION, NOT ELSEWHERE CLASSIFIED (2) Lung cancer Assessment/Plan: lung CA with mets to the brain. CT chest: collapsed right lung, with pleural effusion of the entire right hemithorax post chest tube, likely malignant r/o post-obstructive PNA Large masses (right lung; upper vertebrae) SVC occluded. No PE. Code(s): C34.90 - MALIGNANT NEOPLASM OF UNSP PART OF UNSP BRONCHUS OR LUNG (3) Afib Assessment/Plan: Amio gtt for rate control, On Lovenox 80 bid Code(s): I48.91 - UNSPECIFIED ATRIAL FIBRILLATION Qualifiers: Atrial fibrillation type: persistent (4) Anemia Code(s): D64.9 - ANEMIA, UNSPECIFIED Qualifiers: Anemia type: unspecified type Qualified Code(s): D64.9 - Anemia, unspecified (5) CAD (coronary artery disease) Code(s): I25.10 - ATHSCL HEART DISEASE OF [place] CORONARY ARTERY W/O ANG PCTRS (6) Hypotension resolved On Levophed gtt for MAP>65 mmHg Code(s): I95.9 - HYPOTENSION, UNSPECIFIED (7) Schizophrenia Code(s): F20.9 - SCHIZOPHRENIA, UNSPECIFIED ASSESSMENT: 1. Acute hypoxic respiratory failure related to complete right lung collapse/ large pleural effusion post chest tube insertion 2. Hypotension, probable sepsis syndrome on pressors, post obstructive pneumonia 3. Metastatic lung carcinoma, brain metastasis 4. Persistent atrial fibrillation with RVR on Amiodarone and Cardizem therapy- hemodynamics permitting, [id number] score of 5 currntly on Lovenox 5. Coronary artery disease with evidence of demand ischemia no clinical angina pectoris 6. Diastolic left ventricular dysfunction with clinical class 0 [place] [employer] classification left ventricular failure 7. Hypertensive cardiovascular disease, currently hypotensive as noted above 8. Diabetes mellitus 9. Hypercholesterolemia 10. History of cerebrovascular disease 11. History of schizophrenia 12. History of ataxia 13. History of osteomyelitis 14. Anemia PLAN: 1. Continue PO Amiodarone, assist with rate control 2. Continue PO Cardizem or may consider Lopressor therapy in substitution, assist with rate control/hemodyanamics permitting 3. Attempt to wean off pressors as tolerated 4. Continue A/C therapy with Lovenox unless it is absolutely contraindicated with caution and close monitoring of CBC/Hg level, maintain hemoglobin equal or greater than 8.0 5. Utilize diuretic therapy/Lasix therapy/as needed with close monitoring of renal function and electrolytes 6. Antibiotics as per the primary team 7. Overall poor prognosis and outcome considering the above noted co- morbidities, as outlined by other services plan for compassionate care/terminal wean
--- NOTE | 2019-06-18 15:05 | PN ---
Physical Exam: SUBJECTIVE: Patient seen and examined Intubated and sedated. No acute overnight events. 235cc from chest tube in past 12 hours. OBJECTIVE: Vital Signs Period Temp Pulse Resp BP Sys/Stock Pulse Ox Last 24 Hr 98.2 F-99 F 11-128 14-16 86-92/65-75 99-99 GENERAL: The patient is intubated and sedated HEAD: Normal with no signs of trauma. NECK: Trachea midline. RIJ in place LUNGS: diminished breath sounds on the right, crackles on the left. Right chest tube with serous drainage into pleuravac HEART: Regular rate and rhythm, S1, S2 ABDOMEN: Soft, nontender, nondistended, normoactive bowel sounds, EXTREMITIES: distal extremities cold to touch, mottling feet b/l SKIN: skin with some distal mottled changes Laboratory Results - last 24 hr 06/17/19 06/17/19 06/18/19 17:45 22:05 05:51 POC Glucometer 147 165 174 06/18/19 12:15 POC Glucometer 173 Active Medications Generic Name Dose Route Start Last Admin Trade Name Freq PRN Reason Stop Dose Admin Acetaminophen 650 mg 06/09/19 05:59 Tylenol - PO Q6H PRN PAIN LEVEL 1-5 Amiodarone HCl 200 mg 06/12/19 10:00 06/18/19 09:59 Cordarone - NGT 200 mg DAILY [facility] Administration Aripiprazole 5 mg 06/09/19 10:00 06/18/19 09:58 Abilify PO 5 mg DAILY [facility] Administration Calcium Carbonate 500 mg 06/09/19 10:00 06/18/19 09:59 Os-Davey 500mg - PO 500 mg DAILY [facility] Administration Cholecalciferol 2,000 unit 06/09/19 10:00 06/18/19 09:57 Vitamin D3 - PO 2,000 unit DAILY [facility] Administration Diltiazem HCl 30 mg 06/18/19 12:00 06/18/19 12:10 Cardizem - PO 30 mg Q6HPO [facility] Administration Enoxaparin Sodium 80 mg 06/09/19 10:00 06/18/19 09:56 Lovenox - SQ 80 mg BID [facility] Administration Piperacillin Sod/Tazobactam 50 mls @ 100 mls/hr 06/09/19 15:00 06/18/19 10:00 Sod 3.375 gm/ Dextrose IVPB 100 mls/hr Q8H-IV [facility] Administration Protocol Norepinephrine Bitartrate 8, 500 mls @ 18.75 mls/hr 06/09/19 16:15 06/17/19 18:19 000 mcg/ Sodium Chloride IV 4 mcg/min TITR [facility] 15 mls/hr Administration Protocol 5 MCG/MIN Vasopressin 50 units/ Sodium 100 mls @ 4 mls/hr 06/09/19 16:45 06/17/19 18:20 Chloride IVPB Not Given ASDIR [facility] Protocol 2 UNITS/HR Propofol 1,000,000 mcg in 100 mls @ 2.49 mls/hr 06/09/19 22:00 06/18/19 12:10 Diprivan - IVPB 50 mcg/kg/min TITR [facility] 24.902 mls/hr Administration Protocol 5 MCG/KG/MIN Fentanyl 500 mcg/ Dextrose 100 mls @ 5 mls/hr 06/17/19 02:30 06/18/19 03:41 IVPB 25 mcg/hr TITR [facility] 5 mls/hr Administration 25 MCG/HR Insulin Aspart 1 vial 06/09/19 07:00 06/18/19 12:00 Novolog Vial Sliding Scale - SQ Not Given ACHS [facility] Protocol ASSESSMENT/PLAN: 68 y/o M from [facility] with hx of HTN, HLD, A-Fib on AC, DM, CAD, Schizo, & recently diagnosed non small cell lung CA w/ brain and T-spine mets (Of note, tumor exhibits PDL-1 expression) who is admitted to ICU for hypercapnic respiratory failure. Neuro: - sedated, intubated on propofol and fent CV: - MAPs 60-80s -> curently on levo, wean as tolerated - afib HR 120s-130s; now on Amio 200mg QD in addition to Dilt 30mg TID - continue to monitor closely and avoid hypotension, as chest tube continues to drain Respiratory: -right sided effusion likely malignant with compressive atelectasis vs compressive malignancy - s/p chest tube; with continual drainage - vent rate 14, TV 450, PEEP 5, FIO2 40% GI: - continue tube feeds - aspiration precautions Renal: - urinary retention; trevino - Cr stable ID: - BCX(06/08/19): coag-neg staph; Gram positive bacili - BCX(06/09/19): NGTD - ID(Dr Littlejohn) consulted --continue zosyn DVT ppx: Lovenox 80 bid FEN/LTD: - replete lytes prn - TF Glucerna - RIJ, right lateral chest tube, ETT, PIV x2 Dispo: ICU team will continue to follow; NH and assisted living contacted and patient with no known relatives or POA; patient submitted to ethics committee for review; pending discussion amongst attendings and palliative team for terminal extubation given patient's wishes prior to mental status deterioration. Ethics committee Sunday at 9am Visit type - Emergency Visit Emergency Visit: No - New Patient This patient is new to me today: No - Critical Care Critical Care patient: Yes Total Critical Care Time (in minutes): 35 Critical Care Statement: The care of this patient involved high complexity deci carlton making to prevent further life threatening deterioration of the patient's condition and/or to evaluate & treat vital organ system(s) failure or risk of failure. ATTENDING PHYSICIAN STATEMENT I saw and evaluated the patient. I reviewed the resident's note and discussed the case with the resident. I agree with the resident's findings and plan as documented. SUBJECTIVE: OBJECTIVE: ASSESSMENT AND PLAN:
[2019-06-18] MEDS ORDERED: PT OWN MED DRAWER 7, Y5N ONE (15:25)
[2019-06-18] MEDS: NOREPINEPHRINE BITARTRATE 8,000 MCG in SODIUM CHLORIDE 492 ML IV SCH (15:28)
[2019-06-18] MEDS: VASOPRESSIN 50 UNITS in SODIUM CHLORIDE 97.5 ML IVPB SCH (16:45)
[2019-06-18] MEDS ORDERED: fentaNYL CITRATE 250 MCG/5 ML VIAL ONE (19:47)
[2019-06-19] MEDS: PIPERACILLIN/TAZOB 3.375 GM 3.375 GM in DEXTROSE 5%-WATER - 50 ML IVPB SCH ×3 (01:09→17:41)
[2019-06-19] MEDS: dilTIAZem HCL 30 MG TABLET (FP) PO SCH ×4 (01:10→17:40)
[2019-06-19] MEDS: PROPOFOL 1,000,000 MCG/100 ML VIAL IVPB SCH ×5 (01:11→23:31)
[2019-06-19] MEDS: INSULIN SLIDING SCALE (NOVOLOG) 1 VIAL SQ SCH ×2 (07:02→12:41)
[2019-06-19] MEDS ORDERED: VASOPRESSIN 20 UNITS/ML VIAL IV ONE ×2 (07:11→21:33)
[2019-06-19] MEDS: VASOPRESSIN 50 UNITS in SODIUM CHLORIDE 97.5 ML IVPB SCH ×2 (08:20→18:33)
--- NOTE | 2019-06-19 09:04 | PN ---
Progress Note, Physician History of Present Illness: Sedated and intubated on vasopressin gtt, rate-controlled atrial fibrillation. - Current Medication List Current Medications: Active Medications Acetaminophen (Tylenol -) 650 mg PO Q6H PRN PRN Reason: PAIN LEVEL 1-5 Amiodarone HCl (Cordarone -) 200 mg NGT DAILY [facility] Last Admin: 06/18/19 09:59 Dose: 200 mg Aripiprazole (Abilify) 5 mg PO DAILY [facility] Last Admin: 06/18/19 09:58 Dose: 5 mg Calcium Carbonate (Os-Davey 500mg -) 500 mg PO DAILY [facility] Last Admin: 06/18/19 09:59 Dose: 500 mg Cholecalciferol (Vitamin D3 -) 2,000 unit PO DAILY [facility] Last Admin: 06/18/19 09:57 Dose: 2,000 unit Diltiazem HCl (Cardizem -) 30 mg PO Q6HPO [facility] Last Admin: 06/19/19 07:01 Dose: Not Given Enoxaparin Sodium (Lovenox -) 80 mg SQ BID [facility] Last Admin: 06/18/19 21:43 Dose: 80 mg Piperacillin Sod/Tazobactam (Sod 3.375 gm/ Dextrose) 50 mls @ 100 mls/hr IVPB Q8H-IV [facility]; Protocol Last Admin: 06/19/19 01:09 Dose: 100 mls/hr Vasopressin 50 units/ Sodium (Chloride) 100 mls @ 4 mls/hr IVPB ASDIR [facility]; Protocol Last Admin: 06/19/19 08:20 Dose: 4 units/hr, 8 mls/hr Propofol (Diprivan -) 1,000,000 mcg in 100 mls @ 2.49 mls/hr IVPB TITR [facility]; Protocol Last Admin: 06/19/19 01:11 Dose: 50 mcg/kg/min, 24.902 mls/hr Fentanyl 500 mcg/ Dextrose 100 mls @ 5 mls/hr IVPB TITR [facility] Last Admin: 06/18/19 20:08 Dose: 25 mcg/hr, 5 mls/hr Insulin Aspart (Novolog Vial Sliding Scale -) 1 vial SQ TIDAC [facility]; Protocol Last Admin: 06/19/19 07:02 Dose: Not Given - Objective Vital Signs: Vital Signs Temperature 98.4 F 06/18/19 22:00 Pulse Rate 91 H 06/19/19 08:48 Respiratory Rate 18 06/19/19 08:48 Blood Pressure 78/41 L 06/19/19 08:20 O2 Sat by Pulse Oximetry (%) 92 L 06/19/19 08:48 Constitutional: Yes: No Distress, Calm, Thin Neck: Yes: Supple Cardiovascular: Yes: Pulse Irregular Respiratory: Yes: Intubated, Mechanically Ventilated, Rhonchi, Other (Right chest tube in place) Gastrointestinal: Yes: Normal Bowel Sounds, Soft Edema: Yes Edema: LUE: 2+, RUE: 2+ Labs: CBC, BMP 06/17/19 10:00 06/17/19 10:00 INR, PTT INR 1.20 (0.83-1.09) H 06/08/19 01:30 - ....Imaging Chest X-ray: Report Reviewed (Opacification of right hemithorax with chest tube in place) EKG: Report Reviewed (Tele: Rate-controlled afib) Assessment/Plan - Problems (1) Pleural effusion Code(s): J90 - PLEURAL EFFUSION, NOT ELSEWHERE CLASSIFIED (2) Lung cancer Assessment/Plan: lung CA with mets to the brain. CT chest: collapsed right lung, with pleural effusion of the entire right hemithorax post chest tube, likely malignant r/o post-obstructive PNA Large masses (right lung; upper vertebrae) SVC occluded. No PE. Code(s): C34.90 - MALIGNANT NEOPLASM OF UNSP PART OF UNSP BRONCHUS OR LUNG (3) Afib Assessment/Plan: Amio 200 qd for rate control, On Lovenox 80 bid Code(s): I48.91 - UNSPECIFIED ATRIAL FIBRILLATION Qualifiers: Atrial fibrillation type: persistent (4) Anemia Code(s): D64.9 - ANEMIA, UNSPECIFIED Qualifiers: Anemia type: unspecified type Qualified Code(s): D64.9 - Anemia, unspecified (5) CAD (coronary artery disease) Code(s): I25.10 - ATHSCL HEART DISEASE OF [place] CORONARY ARTERY W/O ANG PCTRS (6) Hypotension resolved On vasopressin gtt for MAP>65 mmHg Code(s): I95.9 - HYPOTENSION, UNSPECIFIED (7) Schizophrenia Code(s): F20.9 - SCHIZOPHRENIA, UNSPECIFIED ASSESSMENT: 1. Acute hypoxic respiratory failure related to complete right lung collapse/ large pleural effusion post chest tube insertion 2. Hypotension, probable sepsis syndrome on pressors, post obstructive pneumonia 3. Metastatic lung carcinoma, brain metastasis 4. Persistent atrial fibrillation with RVR on Amiodarone and Cardizem therapy- hemodynamics permitting, [id number] score of 5 currntly on Lovenox 5. Coronary artery disease with evidence of demand ischemia no clinical angina pectoris 6. Diastolic left ventricular dysfunction with clinical class 0 [place] [employer] classification left ventricular failure 7. Hypertensive cardiovascular disease, currently hypotensive as noted above 8. Diabetes mellitus 9. Hypercholesterolemia 10. History of cerebrovascular disease 11. History of schizophrenia 12. History of ataxia 13. History of osteomyelitis 14. Anemia PLAN: 1. Continue PO Amiodarone 200 qd, assist with rate control 2. Continue PO Cardizem 30 q6 or may consider Lopressor therapy in substitution , assist with rate control/hemodyanamics permitting 3. Attempt to wean off pressors as tolerated 4. Continue A/C therapy with Lovenox unless it is absolutely contraindicated with caution and close monitoring of CBC/Hg level, maintain hemoglobin equal or greater than 8.0 5. Utilize diuretic therapy/Lasix therapy/as needed with close monitoring of renal function and electrolytes 6. Antibiotics as per the primary team 7. Overall poor prognosis and outcome considering the above noted co- morbidities, as outlined by other services plan for compassionate care/terminal wean
[2019-06-19] MEDS ORDERED: PT OWN MED DRAWER 7, Y5N ONE ×2 (09:10→18:25)
[2019-06-19] MEDS ORDERED: DEXTROSE 5%-WATER - 50 ML IVPB ONE ×2 (09:10→17:21)
[2019-06-19] MEDS ORDERED: PIPERACILLIN/TAZOBACTAM 3.375 GM VIAL IVPB ONE ×2 (09:10→17:21)
--- NOTE | 2019-06-19 09:14 | PN ---
Progress Note, Physician Chief Complaint: PATIENT HAD CENTRAL LINE REMOVED BECAUSE OF DYSFUNCTION OF ACCESS PERIPHERAL LINE PLACED ON VASOPRESSIN FOR BP SUPPORT DESATURATION OF OXYGEN AND INCREASED FIO2 TO 60% - Current Medication List Current Medications: Active Medications Acetaminophen (Tylenol -) 650 mg PO Q6H PRN PRN Reason: PAIN LEVEL 1-5 Amiodarone HCl (Cordarone -) 200 mg NGT DAILY [facility] Last Admin: 06/18/19 09:59 Dose: 200 mg Aripiprazole (Abilify) 5 mg PO DAILY [facility] Last Admin: 06/18/19 09:58 Dose: 5 mg Calcium Carbonate (Os-Davey 500mg -) 500 mg PO DAILY [facility] Last Admin: 06/18/19 09:59 Dose: 500 mg Cholecalciferol (Vitamin D3 -) 2,000 unit PO DAILY [facility] Last Admin: 06/18/19 09:57 Dose: 2,000 unit Diltiazem HCl (Cardizem -) 30 mg PO Q6HPO [facility] Last Admin: 06/19/19 07:01 Dose: Not Given Enoxaparin Sodium (Lovenox -) 80 mg SQ BID [facility] Last Admin: 06/18/19 21:43 Dose: 80 mg Piperacillin Sod/Tazobactam (Sod 3.375 gm/ Dextrose) 50 mls @ 100 mls/hr IVPB Q8H-IV [facility]; Protocol Last Admin: 06/19/19 01:09 Dose: 100 mls/hr Vasopressin 50 units/ Sodium (Chloride) 100 mls @ 4 mls/hr IVPB ASDIR [facility]; Protocol Last Admin: 06/19/19 08:20 Dose: 4 units/hr, 8 mls/hr Propofol (Diprivan -) 1,000,000 mcg in 100 mls @ 2.49 mls/hr IVPB TITR [facility]; Protocol Last Admin: 06/19/19 01:11 Dose: 50 mcg/kg/min, 24.902 mls/hr Fentanyl 500 mcg/ Dextrose 100 mls @ 5 mls/hr IVPB TITR [facility] Last Admin: 06/18/19 20:08 Dose: 25 mcg/hr, 5 mls/hr Insulin Aspart (Novolog Vial Sliding Scale -) 1 vial SQ TIDAC [facility]; Protocol Last Admin: 06/19/19 07:02 Dose: Not Given - Objective Vital Signs: Vital Signs Temperature 98.4 F 06/18/19 22:00 Pulse Rate 91 H 06/19/19 08:48 Respiratory Rate 18 06/19/19 08:48 Blood Pressure 78/41 L 06/19/19 08:20 O2 Sat by Pulse Oximetry (%) 92 L 06/19/19 08:48 Constitutional: Yes: Moderate Distress Cardiovascular: Yes: Pulse Irregular Respiratory: Yes: Diminished, Mechanically Ventilated Gastrointestinal: Yes: Soft, Distention Genitourinary: Yes: Padilla Present Musculoskeletal: Yes: Muscle Weakness Integumentary: Yes: Pressure Ulcer, Venous Stasis Changes Wound/Incision: Yes: Dressing Dry and Intact, Excoriated, Unapproximated Neurological: Yes: Confusion, Pre-Existing Deficit, Unresponsive, Weakness Psychiatric: Yes: Other Labs: CBC, BMP 06/17/19 10:00 06/17/19 10:00 INR, PTT INR 1.20 (0.83-1.09) H 06/08/19 01:30 Problem List - Problems (1) Collapse of right lung Code(s): J98.11 - ATELECTASIS (2) Hypotension Code(s): I95.9 - HYPOTENSION, UNSPECIFIED (3) Pleural effusion Code(s): J90 - PLEURAL EFFUSION, NOT ELSEWHERE CLASSIFIED (4) SOB (shortness of breath) Code(s): R06.02 - SHORTNESS OF BREATH (5) Abnormal laboratory results for respiratory system Code(s): R84.9 - UNSP ABNORMAL FINDING IN SPECIMENS FROM RESP ORG/THRX (6) Lung cancer Code(s): C34.90 - MALIGNANT NEOPLASM OF UNSP PART OF UNSP BRONCHUS OR LUNG (7) Mediastinal lymphadenopathy Code(s): R59.0 - LOCALIZED ENLARGED LYMPH NODES (8) Metastatic disease Code(s): C79.9 - SECONDARY MALIGNANT NEOPLASM OF UNSPECIFIED SITE (9) S/P radiation therapy Code(s): Z92.3 - PERSONAL HISTORY OF IRRADIATION (10) Afib Code(s): I48.91 - UNSPECIFIED ATRIAL FIBRILLATION Qualifiers: Atrial fibrillation type: persistent (11) Anemia Code(s): D64.9 - ANEMIA, UNSPECIFIED Qualifiers: Anemia type: unspecified type Qualified Code(s): D64.9 - Anemia, unspecified (12) Ataxia Code(s): R27.0 - ATAXIA, UNSPECIFIED (13) Diabetes Code(s): E11.9 - TYPE 2 DIABETES MELLITUS WITHOUT COMPLICATIONS (14) Diabetic foot ulcer Code(s): E11.621 - TYPE 2 DIABETES MELLITUS WITH FOOT ULCER; L97.509 - NON- PRESSURE CHRONIC ULCER OTH PRT UNSP FOOT W UNSP SEVERITY (15) Diabetic peripheral vascular disease Code(s): E11.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 (16) HTN (hypertension) Code(s): I10 - ESSENTIAL (PRIMARY) HYPERTENSION Qualifiers: Hypertension type: essential hypertension Qualified Code(s): I10 - Essential (primary) hypertension (17) Schizophrenia Code(s): F20.9 - SCHIZOPHRENIA, UNSPECIFIED Assessment/Plan I HAVE REVIEWED ALL NOTES AND PROGNOSIS WITH POSSIBLE TREATMENTS. I AGREE WITH THE ICU NOTE OF DR WESTBROOK AND DR CARVAJAL THAT MR RUSS DID NOT WANT AN EXTENSIVE AGGRESSIVE WORKUP AT THIS POINT WHERE RECOVERY IS UNLIKELY. TO CONTINUE WITH HEROIC MEASURES WILL ONLY PROLONG SUFFERING AND PAIN. LUNG CANCER WITH METS/COLLAPSED LUNG WITH ANEMIA/SEPSIS AND RESPIRATORY FAILURE REQUIRING VENT SUPPORT. I AGREE WITH A COMPASSIONATE WEAN WILL DISCUSS WITH CASE MANAGEMENT AND PALLIATIVE CARE. CONTINUE AC MODE VENT SUPPORT BP STABILIZED WITH SUPPORT WOUND CARE DRAIN CHEST TUBE PADILLA IN PLACE ETHICAL REVIEW WITH DR CHAVEZ TOMORROW 9AM CONFERENCE CALL I WILL BE AVAILABLE TO DISCUSS DECISION ON COMPASSIONATE WEAN AND COMFORT CARE.
[2019-06-19] MEDS: CHOLECALCIFEROL (VIT D3) 1,000 UNIT (25 MCG) TABLET PO SCH (09:20)
[2019-06-19] MEDS: CALCIUM (OYSTER SHELL) 500 MG TABLET (FP) PO SCH (09:20)
[2019-06-19] MEDS: ENOXAPARIN NA (PORCINE) 80 MG/0.8 ML DISP.SYRIN SQ SCH ×2 (09:20→23:28)
[2019-06-19] MEDS: ARIPiprazole 5 MG TABLET PO SCH (09:21)
[2019-06-19] MEDS: AMIODARONE HCL 200 MG TABLET NGT SCH (09:21)
--- NOTE | 2019-06-19 12:24 | PN ---
Physical Exam: SUBJECTIVE: Patient seen and examined O/N: desaturated, had mucus plug removed. RIJ fell out OBJECTIVE: Vital Signs Period Temp Pulse Resp BP Sys/Stock Pulse Ox Last 24 Hr 98.3 F-98.5 F 80-115 14-18 78-103/41-78 92-92 GENERAL: The patient is intubated and sedated HEAD: Normal with no signs of trauma. NECK: Trachea midline. RIJ out, wound covered with dry guaze LUNGS: diminished breath sounds on the right, crackles on the left. Right chest tube with serous drainage into pleuravac HEART: Regular rate and rhythm, S1, S2 ABDOMEN: Soft, nontender, nondistended, normoactive bowel sounds, EXTREMITIES: distal extremities cold to touch, mottling feet b/l SKIN: skin with some distal mottled changes Laboratory Results - last 24 hr 06/18/19 06/19/19 17:48 06:42 POC Glucometer 150 169 Active Medications Generic Name Dose Route Start Last Admin Trade Name Freq PRN Reason Stop Dose Admin Acetaminophen 650 mg 06/09/19 05:59 Tylenol - PO Q6H PRN PAIN LEVEL 1-5 Amiodarone HCl 200 mg 06/12/19 10:00 06/19/19 09:21 Cordarone - NGT 200 mg DAILY [facility] Administration Aripiprazole 5 mg 06/09/19 10:00 06/19/19 09:21 Abilify PO 5 mg DAILY [facility] Administration Calcium Carbonate 500 mg 06/09/19 10:00 06/19/19 09:20 Os-Davey 500mg - PO 500 mg DAILY [facility] Administration Cholecalciferol 2,000 unit 06/09/19 10:00 06/19/19 09:20 Vitamin D3 - PO 2,000 unit DAILY [facility] Administration Diltiazem HCl 30 mg 06/18/19 12:00 06/19/19 07:01 Cardizem - PO Not Given Q6HPO [facility] Enoxaparin Sodium 80 mg 06/09/19 10:00 06/19/19 09:20 Lovenox - SQ 80 mg BID [facility] Administration Piperacillin Sod/Tazobactam 50 mls @ 100 mls/hr 06/09/19 15:00 06/19/19 09:20 Sod 3.375 gm/ Dextrose IVPB 100 mls/hr Q8H-IV [facility] Administration Protocol Vasopressin 50 units/ Sodium 100 mls @ 4 mls/hr 06/09/19 16:45 06/19/19 08:20 Chloride IVPB 4 units/hr ASDIR [facility] 8 mls/hr Administration Protocol 2 UNITS/HR Propofol 1,000,000 mcg in 100 mls @ 2.49 mls/hr 06/09/19 22:00 06/19/19 01:11 Diprivan - IVPB 50 mcg/kg/min TITR [facility] 24.902 mls/hr Administration Protocol 5 MCG/KG/MIN Fentanyl 500 mcg/ Dextrose 100 mls @ 5 mls/hr 06/17/19 02:30 06/18/19 20:08 IVPB 25 mcg/hr TITR [facility] 5 mls/hr Administration 25 MCG/HR Insulin Aspart 1 vial 06/19/19 07:00 06/19/19 07:02 Novolog Vial Sliding Scale - SQ Not Given TIDAC [facility] Protocol ASSESSMENT/PLAN: 68 y/o M from [facility] with hx of HTN, HLD, A-Fib on AC, DM, CAD, Schizo, & recently diagnosed non small cell lung CA w/ brain and T-spine mets (Of note, tumor exhibits PDL-1 expression) who is admitted to ICU for hypercapnic respiratory failure. Neuro: - sedated, intubated on propofol and fent CV: - MAPs 60-80s -> was on Levo via RIJ(lost line) but now on peripheral vasopressin - afib HR 120s-130s; now on Amio 200mg QD in addition to Dilt 30mg q6h - continue to monitor closely and avoid hypotension, as chest tube continues to drain Respiratory: -right sided effusion likely malignant with compressive atelectasis vs compressive malignancy - s/p chest tube; with continual drainage - vent rate 14, TV 450, PEEP 8, FIO2 50% GI: - continue tube feeds - aspiration precautions Renal: - urinary retention; trevino - Cr stable ID: - BCX(06/08/19): coag-neg staph; Gram positive bacili - BCX(06/09/19): NGTD - ID(Dr Littlejohn) consulted --continue zosyn DVT ppx: Lovenox 80 bid FEN/LTD: - replete lytes prn - TF Glucerna - Right lateral chest tube, ETT, PIV x2 Dispo: ICU team will continue to follow; NH and assisted living contacted and patient with no known relatives or POA; patient submitted to ethics committee for review; pending discussion amongst attendings and palliative team for terminal extubation given patient's wishes prior to mental status deterioration. Ethics committee Sunday at 9am Visit type - Emergency Visit Emergency Visit: No - New Patient This patient is new to me today: No - Critical Care Critical Care patient: Yes Total Critical Care Time (in minutes): 35 Critical Care Statement: The care of this patient involved high complexity decision making to prevent further life threatening deterioration of the patie nt's condition and/or to evaluate & treat vital organ system(s) failure or risk of failure. ATTENDING PHYSICIAN STATEMENT I saw and evaluated the patient. I reviewed the resident's note and discussed the case with the resident. I agree with the resident's findings and plan as documented. SUBJECTIVE: OBJECTIVE: ASSESSMENT AND PLAN:
--- NOTE | 2019-06-19 12:35 | PN ---
Teaching Attending Note Name of Resident: Horacio Canales ATTENDING PHYSICIAN STATEMENT I saw and evaluated the patient. I reviewed the resident's note and discussed the case with the resident. I agree with the resident's findings and plan as documented. SUBJECTIVE: Pt seen and examined in the ICU. Remains intubated, sedated on vasopressin gtt. Episode of hypoxia overnight improved with suctioning mucous plug. OBJECTIVE: Vital Signs Period Temp Pulse Resp BP Sys/Stock Pulse Ox Last 24 Hr 98.3 F-98.5 F 80-115 14-18 78-103/41-78 92-92 Intake & Output 06/16/19 06/17/19 06/18/19 06/19/19 23:59 23:59 23:59 23:59 Intake Total 1581 1574 3111.9 1410 Output Total 1600 2925 2030 400 Balance -19 -1351 1081.9 1010 Weight 80.513 kg 81.8 kg 81.284 kg Gen: intubated, sedated Heart: RRR Lung: scattered rhonchi, absent breath sounds right Abd: soft, nontender Ext: no edema CBC, BMP 06/17/19 10:00 06/17/19 10:00 Active Medications Acetaminophen (Tylenol -) 650 mg PO Q6H PRN PRN Reason: PAIN LEVEL 1-5 Amiodarone HCl (Cordarone -) 200 mg NGT DAILY [facility] Last Admin: 06/19/19 09:21 Dose: 200 mg Aripiprazole (Abilify) 5 mg PO DAILY [facility] Last Admin: 06/19/19 09:21 Dose: 5 mg Calcium Carbonate (Os-Davey 500mg -) 500 mg PO DAILY [facility] Last Admin: 06/19/19 09:20 Dose: 500 mg Cholecalciferol (Vitamin D3 -) 2,000 unit PO DAILY [facility] [place] Last Admin: 06/19/19 09:20 Dose: 2,000 unit Diltiazem HCl (Cardizem -) 30 mg PO Q6HPO [facility] Last Admin: 06/19/19 07:01 Dose: Not Given Enoxaparin Sodium (Lovenox -) 80 mg SQ BID [facility] Last Admin: 06/19/19 09:20 Dose: 80 mg Piperacillin Sod/Tazobactam (Sod 3.375 gm/ Dextrose) 50 mls @ 100 mls/hr IVPB Q8H-IV [facility]; Protocol Last Admin: 06/19/19 09:20 Dose: 100 mls/hr Vasopressin 50 units/ Sodium (Chloride) 100 mls @ 4 mls/hr IVPB ASDIR [facility]; Protocol Last Admin: 06/19/19 08:20 Dose: 4 units/hr, 8 mls/hr Propofol (Diprivan -) 1,000,000 mcg in 100 mls @ 2.49 mls/hr IVPB TITR [facility]; Protocol Last Admin: 06/19/19 01:11 Dose: 50 mcg/kg/min, 24.902 mls/hr Fentanyl 500 mcg/ Dextrose 100 mls @ 5 mls/hr IVPB TITR [facility] Last Admin: 06/18/19 20:08 Dose: 25 mcg/hr, 5 mls/hr Insulin Aspart (Novolog Vial Sliding Scale -) 1 vial SQ TIDAC [facility]; Protocol Last Admin: 06/19/19 07:02 Dose: Not Given ASSESSMENT AND PLAN: Acute Hypoxic Respiratory Failure Metastatic Lung Cancer with Right Main Stem Obstruction and Brain Mets Pleural Effusion s/p chest tube placement Pneumonia likely Post Obstructive Septic Shock resolving Atrial Fibrillation with RVR CAD LV Diastolic Dysfunction HTN DM Hypercholesterolemia Schizophrenia Anemia - continue antibiotics - titrate pressors to maintain MAP >65 - rate control - continue anticoagulation - pt with terminal illness with progressive disease and tumor burden - continuing aggressive treatments would only promote suffering without improving quality of life - recommend comfort measures due to medical futility critical care time spent in reviewing chart, evaluating patient and formulating plan 35 min
--- NOTE | 2019-06-19 13:08 | PN ---
Physical Exam: SUBJECTIVE: Patient seen and examined OBJECTIVE: Vital Signs Period Temp Pulse Resp BP Sys/Stock Pulse Ox Last 24 Hr 98.3 F-98.5 F 80-115 14-18 78-103/41-90 92-92 GENERAL: The patient is awake, alert, and fully oriented, in no acute distress. HEAD: Normal with no signs of trauma. EYES: PERRL, extraocular movements intact, sclera anicteric, conjunctiva clear. No ptosis. ENT: Ears normal, nares patent, oropharynx clear without exudates, moist mucous membranes. NECK: Trachea midline, full range of motion, supple. LUNGS: Breath sounds equal, clear to auscultation bilaterally, no wheezes, no crackles, no accessory muscle use. HEART: Regular rate and rhythm, S1, S2 without murmur, rub or gallop. ABDOMEN: Soft, nontender, nondistended, normoactive bowel sounds, no guarding, no rebound, no hepatosplenomegaly, no masses. EXTREMITIES: 2+ pulses, warm, well-perfused, no edema. NEUROLOGICAL: Cranial nerves II through XII grossly intact. Normal speech, gait not observed. PSYCH: Normal mood, normal affect. SKIN: Warm, dry, normal turgor, no rashes or lesions noted Laboratory Results - last 24 hr 06/18/19 06/19/19 17:48 06:42 POC Glucometer 150 169 Active Medications Generic Name Dose Route Start Last Admin Trade Name Freq PRN Reason Stop Dose Admin Acetaminophen 650 mg 06/09/19 05:59 Tylenol - PO Q6H PRN PAIN LEVEL 1-5 Amiodarone HCl 200 mg 06/12/19 10:06/19/19 09:21 Cordarone - NGT 200 mg DAILY [facility] Administration Aripiprazole 5 mg 06/09/19 10:06/19/19 09:21 Abilify PO 5 mg DAILY [facility] Administration Calcium Carbonate 500 mg 06/09/19 10:06/19/19 09:20 Os-Davey 500mg - PO 500 mg DAILY [facility] Administration Cholecalciferol 2,000 unit 06/09/19 10:00 06/19/19 09:20 Vitamin D3 - PO 2,000 unit DAILY [facility] Administration Diltiazem HCl 30 mg 06/18/19 12:00 06/19/19 12:41 Cardizem - PO Not Given Q6HPO [facility] Enoxaparin Sodium 80 mg 06/09/19 10:00 06/19/19 09:20 Lovenox - SQ 80 mg BID [facility] Administration Piperacillin Sod/Tazobactam 50 mls @ 100 mls/hr 06/09/19 15:00 06/19/19 09:20 Sod 3.375 gm/ Dextrose IVPB 100 mls/hr Q8H-IV [facility] Administration Protocol Vasopressin 50 units/ Sodium 100 mls @ 4 mls/hr 06/09/19 16:45 06/19/19 08:20 Chloride IVPB 4 units/hr ASDIR [facility] 8 mls/hr Administration Protocol 2 UNITS/HR Propofol 1,000,000 mcg in 100 mls @ 2.49 mls/hr 06/09/19 22:00 06/19/19 01:11 Diprivan - IVPB 50 mcg/kg/min TITR [facility] 24.902 mls/hr Administration Protocol 5 MCG/KG/MIN Fentanyl 500 mcg/ Dextrose 100 mls @ 5 mls/hr 06/17/19 02:30 06/18/19 20:08 IVPB 25 mcg/hr TITR [facility] 5 mls/hr Administration 25 MCG/HR Insulin Aspart 1 vial 06/19/19 07:00 06/19/19 12:41 Novolog Vial Sliding Scale - SQ Not Given TIDAC [facility] Protocol ASSESSMENT/PLAN: Visit type - Emergency Visit Emergency Visit: No - New Patient This patient is new to me today: No - Critical Care Critical Care patient: Yes Total Critical Care Time (in minutes): 35 Critical Care Statement: The care of this patient involved high complexity decision making to prevent further life threatening deterioration of the patient 's condition and/or to evaluate & treat vital organ system(s) failure or risk of failure. ATTENDING PHYSICIAN STATEMENT I saw and evaluated the patient. I reviewed the resident's note and discussed the case with the resident. I agree with the resident's findings and plan as documented. SUBJECTIVE: OBJECTIVE: ASSESSMENT AND PLAN:
[2019-06-19] MEDS ORDERED: fentaNYL CITRATE 250 MCG/5 ML VIAL ONE (17:21)
[2019-06-19] MEDS: FENTANYL INJECTION 500 MCG in DEXTROSE 5%-WATER - 90 ML IVPB SCH (17:39)
[2019-06-20] MEDS: dilTIAZem HCL 30 MG TABLET (FP) PO SCH ×3 (02:51→13:24)
[2019-06-20] MEDS ORDERED: PIPERACILLIN/TAZOBACTAM 3.375 GM VIAL IVPB ONE ×2 (02:56→08:34)
[2019-06-20] MEDS ORDERED: DEXTROSE 5%-WATER - 50 ML IVPB ONE ×2 (02:56→08:34)
[2019-06-20] MEDS: PIPERACILLIN/TAZOB 3.375 GM 3.375 GM in DEXTROSE 5%-WATER - 50 ML IVPB SCH ×2 (03:01→09:01)
--- NOTE | 2019-06-20 08:55 | PN ---
Progress Note, Physician - Current Medication List Current Medications: Active Medications Acetaminophen (Tylenol -) 650 mg PO Q6H PRN PRN Reason: PAIN LEVEL 1-5 Amiodarone HCl (Cordarone -) [address] [facility] Last Admin: 06/19/19 09:21 Dose: 200 mg Aripiprazole (Abilify) [address] [facility] Last Admin: 06/19/19 09:21 Dose: 5 mg Calcium Carbonate (Os-Davey 500mg -) [address] [facility] Last Admin: 06/19/19 09:20 Dose: 500 mg Cholecalciferol (Vitamin D3 -) 2,[address] [facility] Last Admin: 06/19/19 09:20 Dose: 2,000 unit Diltiazem HCl (Cardizem -) [address] [facility] Last Admin: 06/20/19 06:18 Dose: Not Given Enoxaparin Sodium (Lovenox -) [address] [facility] Last Admin: 06/19/19 23:28 Dose: 80 mg Piperacillin Sod/Tazobactam (Sod 3.375 gm/ Dextrose) 50 mls @ 100 mls/hr IVPB Q8H-IV [facility]; Protocol Last Admin: 06/20/19 03:01 Dose: 100 mls/hr Vasopressin 50 units/ Sodium (Chloride) 100 mls @ 4 mls/hr IVPB ASDIR [facility]; Protocol Last Admin: 06/19/19 18:33 Dose: 4 units/hr, 8 mls/hr Propofol (Diprivan -) 1,000,000 mcg in 100 mls @ 2.49 mls/hr IVPB TITR [facility]; Protocol Last Admin: 06/19/19 23:31 Dose: 30 mcg/kg/min, 14.941 mls/hr Fentanyl 500 mcg/ Dextrose 100 mls @ 5 mls/hr IVPB TITR [facility] Last Admin: 06/19/19 17:39 Dose: 25 mcg/hr, 5 mls/hr - Objective Vital Signs: Vital Signs Temperature 98 F 06/20/19 00:00 Pulse Rate 79 06/20/19 08:15 Respiratory Rate 18 06/20/19 08:16 Blood Pressure 99/62 06/20/19 08:16 O2 Sat by Pulse Oximetry (%) 99 06/20/19 08:16 Cardiovascular: Yes: S1 Respiratory: Yes: Mechanically Ventilated Labs: CBC, BMP 06/17/19 10:00 06/17/19 10:00 INR, PTT INR 1.20 (0.83-1.09) H 06/08/19 01:30 Assessment/Plan - Problems (1) SOB (shortness of breath) Assessment/Plan: -CTA Chest:with right lung collapse and large right pleural effusion. No evidence of PE. 5 cm RUL mass with hilar and mediastinal adenopathy, left adrenal enlargement, T3 vertebral body metastases, paravertebral mass, foraminal obstruction by the mass at T2-3, displacement of the cord, left cerebellar 0.7cm and rt. occipital metastasis. -Chest Tube placed -on Vent -Pulmonary on board -O2 to keep SpO2>90% -Bronchodilators -IR to place chest drain -Xarelto on hold -Lovenox 80 mg SQ BID for dvt ppx for afib Problems reviewed: Yes Code(s): R06.02 - SHORTNESS OF BREATH (2) Collapse of right lung Problems reviewed: Yes Code(s): J98.11 - ATELECTASIS (3) Pleural effusion Problems reviewed: Yes -Chest Tube in place -Pulmonary on board Code(s): J90 - PLEURAL EFFUSION, NOT ELSEWHERE CLASSIFIED (4) Lung cancer Assessment/Plan: -Oncology consult -Overall poor prognosis=Palliative care Problems reviewed: Yes Code(s): C34.90 - MALIGNANT NEOPLASM OF UNSP PART OF UNSP BRONCHUS OR LUNG (5) Metastatic disease Problems reviewed: Yes Code(s): C79.9 - SECONDARY MALIGNANT NEOPLASM OF UNSPECIFIED SITE (6) Diabetes Assessment/Plan: -recheck A1c -BG AC HS Problems reviewed: Yes Code(s): E11.9 - TYPE 2 DIABETES MELLITUS WITHOUT COMPLICATIONS (7) Schizophrenia Assessment/Plan: -Continue Abilify Problems reviewed: Yes Code(s): F20.9 - SCHIZOPHRENIA, UNSPECIFIED (8) Afib Assessment/Plan: -Rapid now on drip -chronic -cardiology consult -Lovenox 80 mg SQ BID for afib Problems reviewed: Yes Code(s): I48.91 - UNSPECIFIED ATRIAL FIBRILLATION Qualifiers: Atrial fibrillation type: persistent (9) Hypotension Assessment/Plan: -Hold Lisinopril -Cardiology consult Problems reviewed: Yes Code(s): I95.9 - HYPOTENSION, UNSPECIFIED Mr Theodore has extensive medical history including metastatic cancer and currently on vent due to respiratory failure and large pleural effusion that required a chest tube. I discussed case with Dr Estrella and we Agree that further workup, intervention, or treatment would be medically futile and in addition would only cause undue pain and suffering. I do believe that to continue treatment would increase his suffering and pain therefore I am in agreement with compassionate weaning
[2019-06-20] MEDS: CHOLECALCIFEROL (VIT D3) 1,000 UNIT (25 MCG) TABLET PO SCH (09:01)
[2019-06-20] MEDS: PROPOFOL 1,000,000 MCG/100 ML VIAL IVPB SCH (09:01)
[2019-06-20] MEDS: ENOXAPARIN NA (PORCINE) 80 MG/0.8 ML DISP.SYRIN SQ SCH (09:01)
[2019-06-20] MEDS: ARIPiprazole 5 MG TABLET PO SCH (09:28)
[2019-06-20] MEDS: AMIODARONE HCL 200 MG TABLET NGT SCH (09:29)
--- NOTE | 2019-06-20 09:29 | PN ---
Progress Note, Physician History of Present Illness: Sedated and intubated on vasopressin gtt, atrial fibrillation with RVR. - Current Medication List Current Medications: Active Medications Acetaminophen (Tylenol -) 650 mg PO Q6H PRN PRN Reason: PAIN LEVEL 1-5 Amiodarone HCl (Cordarone -) 200 mg NGT DAILY [facility] Last Admin: 06/19/19 09:21 Dose: 200 mg Aripiprazole (Abilify) 5 mg PO DAILY [facility] Last Admin: 06/19/19 09:21 Dose: 5 mg Calcium Carbonate (Os-Davey 500mg -) 500 mg PO DAILY [facility] Last Admin: 06/19/19 09:20 Dose: 500 mg Cholecalciferol (Vitamin D3 -) 2,000 unit PO DAILY [facility] Last Admin: 06/20/19 09:01 Dose: 2,000 unit Diltiazem HCl (Cardizem -) 30 mg PO Q6HPO [facility] Last Admin: 06/20/19 06:18 Dose: Not Given Enoxaparin Sodium (Lovenox -) 80 mg SQ BID [facility] Last Admin: 06/20/19 09:01 Dose: 80 mg Piperacillin Sod/Tazobactam (Sod 3.375 gm/ Dextrose) 50 mls @ 100 mls/hr IVPB Q8H-IV [facility]; Protocol Last Admin: 06/20/19 09:01 Dose: 100 mls/hr Vasopressin 50 units/ Sodium (Chloride) 100 mls @ 4 mls/hr IVPB ASDIR [facility]; Protocol Last Admin: 06/19/19 18:33 Dose: 4 units/hr, 8 mls/hr Propofol (Diprivan -) 1,000,000 mcg in 100 mls @ 2.49 mls/hr IVPB TITR [facility]; Protocol Last Admin: 06/20/19 09:01 Dose: 35 mcg/kg/min, 17.431 mls/hr Fentanyl 500 mcg/ Dextrose 100 mls @ 5 mls/hr IVPB TITR [facility] Last Admin: 06/19/19 17:39 Dose: 25 mcg/hr, 5 mls/hr - Objective Vital Signs: Vital Signs Temperature 98 F 06/20/19 00:00 Pulse Rate 79 06/20/19 08:15 Respiratory Rate 18 06/20/19 08:16 Blood Pressure 99/62 06/20/19 08:16 O2 Sat by Pulse Oximetry (%) 99 06/20/19 08:16 Constitutional: Yes: No Distress, Calm, Thin Neck: Yes: Supple Cardiovascular: Yes: Tachycardia, Pulse Irregular Respiratory: Yes: Intubated, Mechanically Ventilated, Other (Right chest tube in place) Gastrointestinal: Yes: Normal Bowel Sounds, Soft Edema: No Labs: CBC, BMP 06/17/19 10:00 06/17/19 10:00 INR, PTT INR 1.20 (0.83-1.09) H 06/08/19 01:30 - ....Imaging Chest X-ray: Report Reviewed (Improved right hemithorax with chest tube in place ) EKG: Report Reviewed (Tele: Rapid afib) Assessment/Plan - Problems (1) Pleural effusion Code(s): J90 - PLEURAL EFFUSION, NOT ELSEWHERE CLASSIFIED (2) Lung cancer Assessment/Plan: lung CA with mets to the brain. CT chest: collapsed right lung, with pleural effusion of the entire right hemithorax post chest tube, likely malignant r/o post-obstructive PNA Large masses (right lung; upper vertebrae) SVC occluded. No PE. Code(s): C34.90 - MALIGNANT NEOPLASM OF UNSP PART OF UNSP BRONCHUS OR LUNG (3) Afib Assessment/Plan: Amio 200 qd for rate control, On Lovenox 80 bid Code(s): I48.91 - UNSPECIFIED ATRIAL FIBRILLATION Qualifiers: Atrial fibrillation type: persistent (4) Anemia Code(s): D64.9 - ANEMIA, UNSPECIFIED Qualifiers: Anemia type: unspecified type Qualified Code(s): D64.9 - Anemia, unspecified (5) CAD (coronary artery disease) Code(s): I25.10 - ATHSCL HEART DISEASE OF [place] CORONARY ARTERY W/O ANG PCTRS (6) Hypotension resolved On vasopressin gtt for MAP>65 mmHg Code(s): I95.9 - HYPOTENSION, UNSPECIFIED (7) Schizophrenia Code(s): F20.9 - SCHIZOPHRENIA, UNSPECIFIED ASSESSMENT: 1. Acute hypoxic respiratory failure related to complete right lung collapse/ large pleural effusion post chest tube insertion 2. Hypotension, probable sepsis syndrome on pressors, post obstructive pneumonia 3. Metastatic lung carcinoma, brain metastasis 4. Persistent atrial fibrillation with RVR on Amiodarone and Cardizem therapy- hemodynamics permitting, [id number] score of 5 currently on Lovenox 5. Coronary artery disease with evidence of demand ischemia no clinical angina pectoris 6. Diastolic left ventricular dysfunction with clinical class 0 [place] [employer] classification left ventricular failure 7. Hypertensive cardiovascular disease, currently hypotensive as noted above 8. Diabetes mellitus 9. Hypercholesterolemia 10. History of cerebrovascular disease 11. History of schizophrenia 12. History of ataxia 13. History of osteomyelitis 14. Anemia PLAN: 1. Continue PO Amiodarone 200 qd, assist with rate control 2. Continue PO Cardizem 30 q6 or may consider Lopressor therapy in substitution , assist with rate control/hemodyanamics permitting 3. Attempt to wean off pressors to maintain MAP >65 4. Continue A/C therapy with Lovenox unless it is absolutely contraindicated with caution and close monitoring of CBC/Hg level, maintain hemoglobin equal or greater than 8.0 5. Utilize diuretic therapy/Lasix therapy/as needed with close monitoring of renal function and electrolytes 6. Antibiotics as per the primary team 7. Overall poor prognosis and outcome considering the above noted co- morbidities, as outlined by other services plan for compassionate care/terminal wean
[2019-06-20] MEDS ORDERED: morphine SULFATE 4 MG/ML VIAL IVPUSH ONE (09:59)
[2019-06-20] MEDS ORDERED: MORPHINE SULFATE/0.9% NACL/PF 100 MG/100 ML BAG IVPB SCH (10:00)
[2019-06-20] MEDS: FENTANYL INJECTION 500 MCG in DEXTROSE 5%-WATER - 90 ML IVPB SCH (10:57)
[2019-06-20] MEDS: CALCIUM (OYSTER SHELL) 500 MG TABLET (FP) PO SCH (10:58)
--- NOTE | 2019-06-20 11:56 | EKG ---
Test Reason : Blood Pressure : / mmHG Vent. Rate : 140 BPM Atrial Rate : 034 BPM P-R Int : 000 ms QRS Dur : 082 ms QT Int : 266 ms P-R-T Axes : 000 061 054 degrees QTc Int : 406 ms POOR DATA QUALITY, INTERPRETATION MAY BE ADVERSELY AFFECTED ATRIAL FIBRILLATION WITH RAPID VENTRICULAR RESPONSE WITH PREMATURE VENTRICULAR OR ABERRANTLY CONDUCTED COMPLEXES CANNOT RULE OUT ANTERIOR INFARCT , AGE UNDETERMINED NONSPECIFIC ST ABNORMALITY ABNORMAL ECG Confirmed by KESHIA PHILLIPS MD ([id number]) on 06/20/2019 11:56:44 AM Referred By: Confirmed By:KESHIA PHILLIPS MD
--- NOTE | 2019-06-20 12:05 | PN ---
Progress Note, Physician History of Present Illness: AWAKE ON VENTILATOR NO ACUTE DISTRESS AFEBRILE CHEST TUBE IN PLACE BC, PLEURAL FLUID C/S NO GROWTH CXR OPACIFIED R HEMITHORAX - Current Medication List Current Medications: Active Medications Acetaminophen (Tylenol -) 650 mg PO Q6H PRN PRN Reason: PAIN LEVEL 1-5 Amiodarone HCl (Cordarone -) 200 mg NGT DAILY [facility] Last Admin: 06/20/19 09:29 Dose: 200 mg Aripiprazole (Abilify) 5 mg PO DAILY [facility] Last Admin: 06/20/19 09:28 Dose: 5 mg Calcium Carbonate (Os-Davey 500mg -) 500 mg PO DAILY [facility] Last Admin: 06/20/19 10:58 Dose: Not Given Cholecalciferol (Vitamin D3 -) 2,000 unit PO DAILY [facility] Last Admin: 06/20/19 09:01 Dose: 2,000 unit Diltiazem HCl (Cardizem -) 30 mg PO Q6HPO [facility] Last Admin: 06/20/19 06:18 Dose: Not Given Enoxaparin Sodium (Lovenox -) 80 mg SQ BID [facility] Last Admin: 06/20/19 09:01 Dose: 80 mg Piperacillin Sod/Tazobactam (Sod 3.375 gm/ Dextrose) 50 mls @ 100 mls/hr IVPB Q8H-IV [facility]; Protocol Last Admin: 06/20/19 09:01 Dose: 100 mls/hr Vasopressin 50 units/ Sodium (Chloride) 100 mls @ 4 mls/hr IVPB [facility]; Protocol Last Admin: 06/19/19 18:33 Dose: 4 units/hr, 8 mls/hr Propofol (Diprivan -) 1,000,000 mcg in 100 mls @ 2.49 mls/hr IVPB TITR [facility]; Protocol Last Titration: 06/20/19 09:15 Dose: 0 mcg/kg/min, 0 mls/hr Morphine Sulfate (Morphine 100mg/100ml-0.9% Nacl) 100 mg in 100 mls @ 4 mls/hr IVPB TITR [facility]; Protocol Last Admin: 06/20/19 10:57 Dose: 4 mg/hr, 4 mls/hr - Objective Vital Signs: Vital Signs Temperature 98.2 F 06/20/19 10:00 Pulse Rate 79 06/20/19 08:15 Respiratory Rate 16 06/20/19 10:00 Blood Pressure 111/72 06/20/19 10:00 O2 Sat by Pulse Oximetry (%) 99 06/20/19 08:16 Constitutional: Yes: No Distress Eyes: Yes: Conjunctiva Clear Cardiovascular: Yes: Regular Rate and Rhythm, S1, S2 Respiratory: Yes: Diminished Gastrointestinal: Yes: Normal Bowel Sounds, Soft. No: Tenderness Extremities: Yes: Other (+ CYANOSIS, FEET) Edema: Yes Labs: CBC, BMP 06/17/19 10:00 06/17/19 10:00 INR, PTT INR 1.20 (0.83-1.09) H 06/08/19 01:30 Assessment/Plan RESP FAILURE PLEURAL EFFUSION ? PNEUMONIA +BC C/W CONTAMINANT LEUKOCYTOSIS METASTATIC CA REPEAT BC, PLEURAL FLUID C/S NO GROWTH CONTINUE EMPIRIC ZOSYN FOR COMPASSIONATE WEANING
[2019-06-20 13:24] VITALS: TEMP 98
--- NOTE | 2019-06-20 13:50 | PN ---
Physical Exam: SUBJECTIVE: Patient seen and examined With desat events and required FiO2 to 100%, currently weaned back to 50%. Continues to be on peripheral vaso. No other overnight events. OBJECTIVE: Vital Signs Period Temp Pulse Resp BP Sys/Stock Pulse Ox Last 24 Hr 98 F-98.2 F 79-96 16-24 86-111/60-80 99-99 GENERAL: The patient is intubated and sedated HEAD: Normal with no signs of trauma. NECK: Trachea midline. RIJ out, wound covered with dry guaze LUNGS: diminished breath sounds on the right, crackles on the left. Right chest tube with serous drainage into pleuravac HEART: Regular rate and rhythm, S1, S2 ABDOMEN: Soft, nontender, nondistended, normoactive bowel sounds, EXTREMITIES: distal extremities cold to touch, mottling feet b/l SKIN: skin with some distal mottled changes Active Medications Generic Name Dose Route Start Last Admin Trade Name Freq PRN Reason Stop Dose Admin Acetaminophen 650 mg 06/09/19 05:59 Tylenol - PO Q6H PRN PAIN LEVEL 1-5 Amiodarone HCl 200 mg 06/12/19 10:00 06/20/19 09:29 Cordarone - NGT 200 mg DAILY [facility] Administration Aripiprazole 5 mg 06/09/19 10:00 06/20/19 09:28 Abilify PO 5 mg DAILY [facility] Administration Calcium Carbonate 500 mg 06/09/19 10:00 06/20/19 10:58 Os-Davey 500mg - PO Not Given DAILY [facility] Cholecalciferol 2,000 unit 06/09/19 10:00 06/20/19 09:01 Vitamin D3 - PO 2,000 unit DAILY [facility] Administration Diltiazem HCl 30 mg 06/18/19 12:00 06/20/19 13:24 Cardizem - PO Not Given Q6HPO [facility] Enoxaparin Sodium 80 mg 06/09/19 10:00 06/20/19 09:01 Lovenox - SQ 80 mg BID [facility] Administration Piperacillin Sod/Tazobactam 50 mls @ 100 mls/hr 06/09/19 15:00 06/20/19 09:01 Sod 3.375 gm/ Dextrose IVPB 100 mls/hr Q8H-IV [facility] Administration Protocol Vasopressin 50 units/ Sodium 100 mls @ 4 mls/hr 06/09/19 16:45 06/20/19 13:24 Chloride IVPB 0 units/hr ASDIR [facility] 0 mls/hr Titration Protocol 2 UNITS/HR Propofol 1,000,000 mcg in 100 mls @ 2.49 mls/hr 06/09/19 22:00 06/20/19 09:15 Diprivan - IVPB 0 mcg/kg/min TITR [facility] 0 mls/hr Titration Protocol 5 MCG/KG/MIN Morphine Sulfate 100 mg in 100 mls @ 4 mls/hr 06/20/19 10:00 06/20/19 10:57 Morphine 100mg/100ml-0.9% Nacl IVPB 4 mg/hr TITR [facility] 4 mls/hr Administration Protocol 4 MG/HR ASSESSMENT/PLAN: 68 y/o M from [facility] with hx of HTN, HLD, A-Fib on AC, DM, CAD, Schizo, & recently diagnosed non small cell lung CA w/ brain and T-spine mets (Of note, tumor exhibits PDL-1 expression) who is admitted to ICU for hypercapnic respiratory failure. Neuro: - sedated, intubated on propofol and fent -will transition to morphine push and morphine drip; per ethics committee patient to be extubated with comfort measures CV: - will DC all meds; comfort measures Respiratory: - right sided effusion likely malignant with compressive atelectasis vs compressive malignancy - s/p chest tube; with continual drainage - vent rate 14, TV 450, PEEP 8, FIO2 50% -will extubate GI: - DC feeds Renal: - urinary retention; trevino - Cr stable ID: - will DC meds FEN/LTD: - replete lytes prn - TF Glucerna - Right lateral chest tube, ETT, PIV x2 Dispo: ICU team will continue to follow; [place] and assisted living contacted and patient with no known relatives or POA; patient submitted to ethics committee for review; pending discussion amongst attendings and palliative team for terminal extubation given patient's wishes prior to mental status deterioration. Ethics committee this morning; patient to be extubated with comfort care; all meds DCd Visit type - Emergency Visit Emergency Visit: No - New Patient This patient is new to me today: No - Critical Care Critical Care patient: Yes Total Critical Care Time (in minutes): 40 Critical Care Statement: The care of this patient involved high complexity decision making to prevent further life threatening deterioration of the patient 's condition and/or to evaluate & treat vital organ system(s) failure or risk of failure. ATTENDING PHYSICIAN STATEMENT I saw and evaluated the patient. I reviewed the resident's note and discussed the case with the resident. I agree with the resident's findings and plan as documented. SUBJECTIVE: OBJECTIVE: ASSESSMENT AND PLAN:
--- NOTE | 2019-06-20 13:51 | PN ---
Teaching Attending Note Name of Resident: Sina Cavazos ATTENDING PHYSICIAN STATEMENT I saw and evaluated the patient. I reviewed the resident's note and discussed the case with the resident. I agree with the resident's findings and plan as documented. SUBJECTIVE: Patient seen and examined in the ICU. Remains intubated, sedated on vasopressin gtt. OBJECTIVE: Intake & Output 06/17/19 06/18/19 06/19/19 06/20/19 23:59 23:59 23:59 23:59 Intake Total 1574 3111.9 2993 794 Output Total 2925 2030 700 400 Balance -1351 1081.9 2293 394 Weight 180 lb 5.41 oz 179 lb 3.2 oz 180 lb 2 oz 178 lb 3.2 oz Last Vital Signs Temp Pulse Resp BP Pulse Ox 98 F 89 16 97/80 99 06/20/19 13:22 06/20/19 13:22 06/20/19 13:22 06/20/19 13:22 06/20/19 08:16 Active Medications Acetaminophen (Tylenol -) 650 mg PO Q6H PRN PRN Reason: PAIN LEVEL 1-5 Amiodarone HCl (Cordarone -) 200 mg NGT DAILY [facility] Last Admin: 06/20/19 09:29 Dose: 200 mg Aripiprazole (Abilify) 5 mg PO DAILY [facility] Last Admin: 06/20/19 09:28 Dose: 5 mg Calcium Carbonate (Os-Davey 500mg -) 500 mg PO DAILY [facility] Last Admin: 06/20/19 10:58 Dose: Not Given Cholecalciferol (Vitamin D3 -) 2,000 unit PO DAILY [facility] Last Admin: 06/20/19 09:01 Dose: 2,000 unit Diltiazem HCl (Cardizem -) 30 mg PO Q6HPO [facility] Last Admin: 06/20/19 13:24 Dose: Not Given Enoxaparin Sodium (Lovenox -) 80 mg SQ BID [facility] Last Admin: 06/20/19 09:01 Dose: 80 mg Piperacillin Sod/Tazobactam (Sod 3.375 gm/ Dextrose) 50 mls @ 100 mls/hr IVPB Q8H-IV [facility]; Protocol Last Admin: 06/20/19 09:01 Dose: 100 mls/hr Vasopressin 50 units/ Sodium (Chloride) 100 mls @ 4 mls/hr IVPB [facility]; Protocol Last Titration: 06/20/19 13:24 Dose: 0 units/hr, 0 mls/hr Propofol (Diprivan -) 1,000,000 mcg in 100 mls @ 2.49 mls/hr IVPB TITR [facility]; Protocol Last Titration: 06/20/19 09:15 Dose: 0 mcg/kg/min, 0 mls/hr Morphine Sulfate (Morphine 100mg/100ml-0.9% Nacl) 100 mg in 100 mls @ 4 mls/hr IVPB TITR [facility]; Protocol Last Admin: 06/20/19 10:57 Dose: 4 mg/hr, 4 mls/hr Gen: intubated, sedated Heart: RRR Lung: scattered rhonchi, absent breath sounds right Abd: soft, nontender Ext: no edema ASSESSMENT AND PLAN: Acute Hypoxic Respiratory Failure Metastatic Lung Cancer with Right Main Stem Obstruction and Brain Mets Pleural Effusion s/p chest tube placement Pneumonia likely Post Obstructive Septic Shock resolving Atrial Fibrillation with RVR CAD LV Diastolic Dysfunction HTN DM Hypercholesterolemia Schizophrenia Anemia We had a long ethics meeting today with individuals who have taken care of Mr Theodore in different capacities. We are all in agreement that he would not want such aggressive and life sustaining interventions. Many of us have had this specific conversation with him. We are all in agreement that he has a terminal illness with a very poor overall outcome. Further intervention would only cause further suffering which is against his wishes. PLAN: Will proceed with Compassionate extubation and comfort and supportive measures consistent with Mr Theodore's wishes. Dr Luna
[2019-06-20] MEDS ORDERED: morphine SULFATE 4 MG/ML VIAL ONE (15:20)
[2019-06-20] MEDS ORDERED: morphine CARPU-JECT 4 MG/1 ML DISP.SYRIN IVPUSH PRN (15:23)
[2019-06-20 15:31] VITALS: BP 83/65; PULSE 157
[2019-06-20] MEDS ORDERED: morphine SULFATE 4 MG/ML VIAL IVPUSH PRN (15:42)
--- NOTE | 2019-06-20 15:50 | PN ---
Progress Note (short form) - Note Progress Note: Asked to examine patient. Patient unresponsive, even to painful stimuli. Pupils fixed and non reactive.. Patient has no spontaneous breathing, no heart sounds or breath sounds. No carotid or femoral pulses present. No breath sounds or heart sounds heard. Time of pronounced at 3:41 on .
--- NOTE | 2019-06-20 19:02 | PN ---
Progress Note (short form) - Note Progress Note: A formal ethics meeting was held this morning. In attendance were Gianni Sharma M.D.,Silvina Mccrary RN palliative Care nurse, Dr. Rafat Humphreys, Rev.Paul Corby Morillo, Na Ortiz risk management, Dr. Pritesh Headley, Josselin Valero, Dr. Avalos oncologist, Sophy Gongora, brooks Felton, Mayi Riddle , Dr. Luna and Estrella Arteaga. Dr. Chavez was present via conference call. There was a summary of the patient's current hospitalization and status, past history and a review of the need for an ethics meeting. The patient had no known healthcare proxy or surrogate. He also did not have a guardian. He was now terminally ill on a respirator with blood pressure support and a diagnosis adenocarcinoma of the lung, stage IV, with brain, local and bony metastases. Major medical decisions had been made by 2 attending physicians associated with his care but now when the decision was made that compassionate weaning was to be instituted the doctor's and staff were made aware of the requirements for withholding or removing life sustaining treatment in a patient with no known surrogate or healthcare proxy. The 2 rules were spelled out clearly and discussed openly among the parties present. The same guidelines were listed in my documentation on June 09 2019. All questions were answered and no one left without being made aware of the recommendations. No one objected to the decisions.
== END 2019-06-20 15:41 | disposition expired | DRG 121 ==
LOC: JER 19:34 → JERBED 06-07 00:58 → JSAMEDAYSX 06-08 13:21 → J4S 06-08 13:23 → JICU 06-09 05:32
PROVIDERS: ADMIT Internal Medicine; ATTEND Family Medicine
PROC: 5A1955Z Respiratory Ventilation, Greater than 96 Consecutive Hours (ICD-10-PCS; principal; 2019-06-09)
PROC: 0BH17EZ Insertion of Endotracheal Airway into Trachea, Via Natural or Artificial Opening (ICD-10-PCS; 2019-06-09)
PROC: 05HM33Z Insertion of Infusion Device into Right Internal Jugular Vein, Percutaneous Approach (ICD-10-PCS; 2019-06-09)
PROC: 0B9 Respiratory System, Drainage (ICD-10-PCS; 2019-06-09)
DX: C34.90 Malignant neoplasm of unspecified part of unspecified bronchus or lung (principal); I11.9 Hypertensive heart disease without heart failure; E11.9 Type 2 diabetes mellitus without complications; I25.10 Atherosclerotic heart disease of native coronary artery without angina pectoris; E78.5 Hyperlipidemia, unspecified; J96.02 Acute respiratory failure with hypercapnia; J98.19 Other pulmonary collapse; J98.11 Atelectasis; F20.9 Schizophrenia, unspecified; J96.01 Acute respiratory failure with hypoxia; I48.91 Unspecified atrial fibrillation; C79.31 Secondary malignant neoplasm of brain; J91.0 Malignant pleural effusion; R33.9 Retention of urine, unspecified; C79.51 Secondary malignant neoplasm of bone; D72.829 Elevated white blood cell count, unspecified; J18.9 Pneumonia, unspecified organism; D64.9 Anemia, unspecified; I24.8 Other forms of acute ischemic heart disease; I95.9 Hypotension, unspecified; R00.0 Tachycardia, unspecified; A41.9 Sepsis, unspecified organism; R65.21 Severe sepsis with septic shock; Z92.3 Personal history of irradiation
CPT/HCPCS: 31500; 36415; 36600; 71045-TC-FY; 71275-TC; 80048; 80053; 80162; 82010; 82550; 82728; 82803; 82962; 83036; 83540; 83550; 83605; 83615; 83735; 84100; 84157; 84443; 84484; 85025; 85027; 85610; 85730; 87040; 87070; 87075; 87186; 87205; 88108; 88305-TC; 89051; 93005; 93010; 94002; 94660; 99285-25; J7030; Q9967